=== PATIENT | female | born 1965 | race Caucasian/White ===

== ENCOUNTER 2021-10-17 01:28 | Day surgery (SDC) | payer MEDICAID, SELFPAY ==
[2021-10-11 13:18] VITALS: BMI 35.6
--- NOTE | 2021-10-11 13:32 | PC.NURSE ---
Report to the Outpatient Waiting Room, entrance under the green pavilion located off [facility], at time 9am on date 10/17 OR Time: 10am - You and your visitor will be asked to self-screen and do not enter if you have any COVID symptoms. - Only one visitor and NO children visitors are allowed at this time. - The patient visitor is requested to leave or wait in car when not with patient due to restrictions. - A mask is required within the hospital. Patient may have light breakfast since it is scheduled as a local anesthesia and take medications as normal, you may also drive home since it is a local. Please no make-up, nail belarusian, hairspray, perfume, deodorant, or body powder the day of surgery. No jewelry (including any body piercings) or valuables the day of surgery, leave them at home. Please take a shower or bath the night before, or the morning of, surgery with an antibacterial soap. Wear comfortable, loose fitting clothing. Children are encouraged to wear pajamas. - Jewelry must be removed prior to entering the operating room. Rings and piercings that are not removed may be cut off. - The hospital will not accept responsibility for valuables. - Please leave all valuables, including medications, at home the day of surgery. Follow any additional instructions given to you from your surgeon. If you or anyone in your household have experienced Covid symptoms in the past week, please notify your surgeon or the nurse liaison at the phone number below for possible testing. Telephone instructions given to patient Sandy and asked if any additional questions and then verbalized understanding. Patient advised to call surgeon office or pre surgery nurse liaison [phone] if any additional questions.
--- NOTE | 2021-10-17 07:10 | WPDHPUPDATE1 ---
History and Physical Update Update Date/Time: 10/17/21 07:10 History and Physical has been reviewed, including an updated exam of the patient. There are NO changes in the patient's condition. Risks, benefits, and alternatives have been discussed and questions answered. Patient agrees to proceed with procedure.
[2021-10-17 07:25] VITALS: BP 146/70; PULSE 72; RESP 18; O2SAT 97
[2021-10-17 07:35] VITALS: BP 139/65; PULSE 70; RESP 18; O2SAT 97
[2021-10-17 07:45] VITALS: BP 139/70; PULSE 69; RESP 18; O2SAT 97
[2021-10-17] MEDS: LIDO 1%/EPINEPHRINE 1:100,000 50 ML VIAL INFILTRATE (07:49)
[2021-10-17 07:54] VITALS: BP 123/72; PULSE 80; RESP 20; TEMP 36.5; O2SAT 99
[2021-10-17 07:55] VITALS: BP 158/68; PULSE 69; RESP 22; O2SAT 98
--- NOTE | 2021-10-17 08:22 | W.PM.PROC2 ---
Procedure Note - Detailed Date of Procedure 10/17/21 Pre-op Diagnosis right carpal tunnel syndr, rt index trigger finger Post-op Diagnosis Same Procedure Performed Right open carpal tunnel release and injection of Kenalog 10 mg to the right index A1 christina Surgeon Carlo Palomares MD Anesthesia Local Description of Procedure The carpal tunnel and the 2nd A1 christina sites were marked on the patient in the holding area. She was then taken to the operating room where she was placed supine on the operating table. A time-out was held and confirmed. The extremity was prepped and draped in usual fashion. The skin over the carpal tunnel was infiltrated with 1% lidocaine with epinephrine. About 5 minutes of dwell time were allowed. The tourniquet was not utilized. The incision was made as marked and dissection was carried through the subcutaneous tissue to the palmar aponeurosis. This and the transverse retinaculum were incised with a 15. Blade. Under 3 point retraction the ligament was divided distally and proximally to completely release it. There was no unusual anatomy noted. This wound was closed with interrupted 5 0 nylon suture. 1 milliliter of Kenalog 10 milligrams/milliliter mixed with 3107 milliliter of 1% lidocaine plain was injected at the A1 christina of the index. The usual bandage was applied for the carpal tunnel release and the patient was discharged instructions in wound care and follow-up she has a prescription for hydrocodone 5 6. Estimated Blood Loss 1 Tourniquet Time 0 Drains No Packing No Pathology None sent Complications No immediate complications Condition Stable Disposition Same day
== END 2021-10-17 08:20 | disposition home or self-care (01) ==
PROVIDERS: PCP Nurse Practitioner; Visit Provider Plastic Surgery
PROC: (CPT 64721; principal; 2021-10-17 07:30)
DX: G56.01 Carpal tunnel syndrome, right upper limb (principal); M65.321 Trigger finger, right index finger
CPT/HCPCS: 64721; J3301

== ENCOUNTER 2021-11-06 10:25 | Outpatient (CLI) | payer OTHER, SELFPAY ==
[2021-11-06 11:07] LABS: Anion Gap 12 mmol/L (8-16); Blood Urea Nitrogen 10 mg/dL (7-17); Calcium 9.3 mg/dL (8.4-10.2); Carbon Dioxide 28 mmol/L (22-30); Chloride 101 mmol/L (98-107); Estimated Glomerular Filt Rate > 60; Glucose 166 mg/dL (65-110); Potassium 4.4 mmol/L (3.4-5.0); Sodium 141 mmol/L (137-145)
== END 2021-11-06 10:26 | disposition home or self-care (01) ==
PROVIDERS: Anesthesiology; PCP Nurse Practitioner; Visit Provider Plastic Surgery
DX: E11.9 Type 2 diabetes mellitus without complications (principal); Z01.818 Encounter for other preprocedural examination
CPT/HCPCS: 36415; 80048

== ENCOUNTER 2021-11-08 01:10 | Day surgery (SDC) | payer OTHER, SELFPAY ==
[2021-11-05 10:06] VITALS: BMI 35.2
--- NOTE | 2021-11-05 10:16 | PC.NURSE ---
Report to the Outpatient Waiting Room, entrance under the green pavilion located off [facility], at time 0600 on date 11/08/21. OR Time: 0730. Time changes happen often and if your time is changed the preop area will call you the afternoon before. - You and your visitor will be asked to self-screen and do not enter if you have any COVID symptoms. - Only one visitor and NO children visitors are allowed at this time. - The patient visitor is requested to leave or wait in car when not with patient due to restrictions. - A mask is required within the hospital. Patients may have clear liquids (water, carbonated beverages, clear teas, apple juice) until 3 hours prior to surgery with a maximum of 20 ounces. - No food from midnight until time of surgery Take the following medications with a SIP of water the morning of surgery: CITALOPRAM, PROPRANOLOL Medications to discontinue per physician: VITAMINS Date to take last dose: 11/04/21 Please no make-up, nail malay, hairspray, perfume, deodorant, or body powder the day of surgery. No jewelry (including any body piercings) or valuables the day of surgery, leave them at home. Please take a shower or bath the night before, or the morning of, surgery with an antibacterial soap. Wear comfortable, loose fitting clothing. - Jewelry must be removed prior to entering the operating room. Rings and piercings that are not removed may be cut off. - The hospital will not accept responsibility for valuables. - Please leave all valuables, including medications, at home the day of surgery. If you are going home after surgery, a licensed front loader residential driver must drive you home. - NO public transportation without another adult. - We recommend that an adult stay with you for 24 hours following discharge. - We also recommend that you do not drive, make important decision, drink alcoholic beverages, or take any drugs that were not prescribed by your health care provider for at least 24 hours after your discharge time. Follow any additional instructions given to you from your surgeon. If you or anyone in your household have experienced Covid symptoms in the past week, please notify your surgeon or the nurse liaison at the phone number below for possible testing. Telephone instructions given to PT - SANDHYA ALFARO and asked if any additional questions and then verbalized understanding. Patient advised to call surgeon office or pre surgery nurse liaison [phone] if any additional questions.
--- NOTE | 2021-11-07 12:52 | WPDANESEPPF ---
Anes - Initial Pre Proc Eval Procedure: Operation Date: 11/08/21 07:30 Proposed Procedures p Right Ulnar Neuroplasty at the Elbow - Carlo Palomares MD Date/Time: 11/07/21 12:52 Surgeon: Carlo Palomares MD Pre Op Diagnosis: Right Cubital Tunnel Syndrome Patient Data Age: 56 Gender: F Height: 1.65 m Weight: 96.16 kg Allergies Allergy/AdvReac Type Severity Reaction Status Date / Time NSAIDS (Non-Steroidal AdvReac Severe AFFECTS Verified 11/08/21 06:01 Anti-Inflamma KIDNEYS codeine AdvReac Mild Vomiting Verified 11/08/21 06:01 Home Medications Medication Instructions Recorded Confirmed Type aspirin 81 mg tablet,delayed 80 mg PO DAILY 10/11/21 11/08/21 History release atorvastatin 80 mg tablet 80 mg PO HS 10/11/21 11/05/21 History citalopram 20 mg tablet 20 mg PO DAILY 10/11/21 11/05/21 History clopidogrel 75 mg tablet 75 mg PO DAILY 10/11/21 11/05/21 History dulaglutide 3 mg/0.5 mL 3 mg subcut WEEKLY 10/11/21 11/08/21 History subcutaneous pen injector (Trulicity) estradiol 0.5 mg tablet 0.5 mg PO DAILY 10/11/21 11/05/21 History ezetimibe 10 mg tablet 10 mg PO DAILY 10/11/21 11/05/21 History famotidine 20 mg tablet 20 mg PO BID 10/11/21 11/05/21 History fexofenadine 180 mg tablet 180 mg PO DAILY 10/11/21 11/05/21 History (Ariadna Allergy) losartan 100 mg tablet 100 mg PO DAILY 10/11/21 11/08/21 History metformin 1,000 mg tablet 1,000 mg PO BID 10/11/21 11/08/21 History multivitamin with minerals 100 tablet PO DAILY 10/11/21 11/08/21 History propranolol 20 mg tablet 20 mg PO Q12H 10/11/21 11/08/21 History zolpidem 10 mg tablet 10 mg PO HS PRN Sleep 10/11/21 11/08/21 History insulin aspart U-100 100 unit/mL See Rx Instructions .Route .COMPLEX 11/05/21 11/05/21 History subcutaneous solution (Novolog U-100 Insulin aspart) Patient hx anesthesia problems: none Family hx anesthesia problems: none Results Review: All pre-operative results and documents have been reviewed as part of the pre-operative evaluation. [facility] Past Medical History Medical History (Updated 11/07/21 @ 12:53 by Mc Dennison DO) Diabetes type 2, controlled GERD (gastroesophageal reflux disease) Hyperlipidemia Hypertension Insulin pump in place PVD (peripheral vascular disease) Surgical History Surgical History (Updated 11/07/21 @ 12:53 by Mc Dennison DO) History of tubal ligation Social History Social History Smoking packs per day: 1 Smoking cigarettes per day: 20.0 Years smoked: 35 Smoking pack-years: 35.00 Smoking status: Current some day smoker Tobacco type: cigarettes and e-cigarettes/vaping Second hand tobacco smoke exposure: Yes Smoking end date: 07/27/22 Additional smoking assessment comments: QUIT CIGARETTES 07/27/21, NOW VAPING Alcohol intake: never Substance use: never Substance use type: does not use Living arrangements: with family Spiritual care concerns: No Anes - Eval Final PreProcedure Day of Procedure 11/07/21 12:52 Patient weight: obese Heart: regular rate and rhythm Lungs: clear to auscultation Airway: Mallampati scale class II Neurological: alert and oriented Last oral intake: >/= 8 hours ASA classification: III Emergent: no Anesthetic plan: proceed Anesthesia type and monitoring: general GIVS and standard monitoring Results Review: All pre-operative results and documents have been reviewed as part of the pre-operative evaluation. Informed Consent: The patient's anesthetic plan and its attendant risks and benefits were discussed with the patient/family/POA. Questions were solicited and answers provided to the satisfaction of the patient/family/POA.
[2021-11-08 06:13] VITALS: BP 129/75; PULSE 84; RESP 16; TEMP 36.6; O2SAT 98
[2021-11-08] MEDS: LACTATED RINGERS 1,000 ML 30 ML IV CONT ×2 (06:32→08:17)
[2021-11-08 06:46] LABS: Glucose Point of Care 80 mg/dl (65-105)
--- NOTE | 2021-11-08 07:09 | WPDHPUPDATE1 ---
History and Physical Update Update Date/Time: 11/08/21 07:09 History and Physical has been reviewed, including an updated exam of the patient. There are NO changes in the patient's condition. Risks, benefits, and alternatives have been discussed and questions answered. Patient agrees to proceed with procedure.
[2021-11-08] MEDS: LIDO 1%/EPINEPHRINE 1:100,000 10 ML VIAL 20 ML INFILTRATE (07:53)
[2021-11-08 08:17] VITALS: BP 161/67; PULSE 72; RESP 12; O2SAT 98
--- NOTE | 2021-11-08 08:24 | W.PM.PROC2 ---
Procedure Note - Detailed Date of Procedure 11/08/21 Pre-op Diagnosis Right Cubital Tunnel Syndrome Post-op Diagnosis Same Procedure Performed Right ulnar neuroplasty at the elbow Surgeon Carlo Palomares MD Store Team Leader [facility] Anesthesia MAC Description of Procedure The right cubital tunnel area was marked on the patient in the holding area. She was taken to the operating room where she was placed supine on the operating table. She was given IV sedation. The right upper extremity was prepped and draped in usual fashion. A time-out was held and confirmed. The surgical site was marked once again for incision and the area infiltrated with 1% lidocaine with epinephrine. The tourniquet was inflated to 250 mmHg. The elbow was flexed and supported on folded towels. The incision was made as marked and dissection was carried bluntly through the subcutaneous tissue. Several small bridging veins were cauterized. A modest anconeus epitrochlearis muscle was identified between the medial epicondyle and the olecranon resulting and thickening of this area including some thickened fascia. The nerve was identified proximally and exposed throughout the length of the wound from proximal to distal. The only point of visible compression was under the area of the anconeus epitrochlearis and Beebe's ligament. After releasing the nerve there was no subluxation. The tourniquet was released and a few bleeding points cauterized on a setting of 20. The wound was then closed with intradermal 3-0 Vicryl of multiple sites and the skin was closed with glue. The usual bandage was applied. She is discharged with instructions in wound care and follow-up and a prescription for hydrocodone 5/325 6. Estimated Blood Loss 1 Tourniquet Time 12 Drains No Packing No Pathology None sent Complications No immediate complications Condition Stable Disposition Same day
[2021-11-08 08:34] LABS: Glucose Point of Care 91 mg/dl (65-105)
[2021-11-08 08:45] VITALS: BP 146/56; PULSE 69; RESP 12; O2SAT 100
[2021-11-08 09:15] VITALS: BP 158/70; PULSE 74; RESP 14
== END 2021-11-08 09:26 | disposition home or self-care (01) ==
PROVIDERS: PCP Nurse Practitioner; Visit Provider Plastic Surgery
PROC: (CPT 64718; principal; 2021-11-08 07:30)
DX: G56.21 Lesion of ulnar nerve, right upper limb (principal); K21.9 Gastro-esophageal reflux disease without esophagitis; E78.5 Hyperlipidemia, unspecified; I10 Essential (primary) hypertension; E10.51 Type 1 diabetes mellitus with diabetic peripheral angiopathy without gangrene; Z96.41 Presence of insulin pump (external) (internal); Z79.02 Long term (current) use of antithrombotics/antiplatelets; Z79.82 Long term (current) use of aspirin; Z79.899 Other long term (current) drug therapy; Z79.84 Long term (current) use of oral hypoglycemic drugs; Z79.4 Long term (current) use of insulin; F17.290 Nicotine dependence, other tobacco product, uncomplicated; E66.9 Obesity, unspecified; Z68.35 Body mass index [BMI] 35.0-35.9, adult
CPT/HCPCS: 64718; 82948; A9270; J2250; J2704; J3010; J7120

== ENCOUNTER 2022-06-05 12:03 | Outpatient (CLI) | payer OTHER, SELFPAY ==
[2022-06-05 12:35] LABS: Anion Gap 10 mmol/L (8-16); Blood Urea Nitrogen 22 mg/dL (7-17); Calcium 9.5 mg/dL (8.4-10.2); Carbon Dioxide 27 mmol/L (22-30); Chloride 100 mmol/L (98-107); Estimated Glomerular Filt Rate 58; Glucose 125 mg/dL (65-110); Sodium 137 mmol/L (137-145)
== END 2022-06-05 12:04 | disposition home or self-care (01) ==
LOC: ANHSURGERY 12:07
PROVIDERS: Anesthesiology; PCP Nurse Practitioner; Visit Provider Plastic Surgery
DX: Z01.818 Encounter for other preprocedural examination (principal); E11.9 Type 2 diabetes mellitus without complications
CPT/HCPCS: 36415; 80048

== ENCOUNTER 2022-06-06 00:35 | Day surgery (SDC) | payer OTHER, SELFPAY ==
[2022-06-03 09:22] VITALS: BMI 36.1
--- NOTE | 2022-06-03 09:25 | SUR.PREOP ---
Report to the Outpatient Waiting Room, entrance under the green pavilion located off [facility], at time _0600 on date _06/06/22 . Planned Procedure Time: _0730 . Time changes happen often and if your time is changed the preop area will call you the afternoon before. - You and your visitor will be asked to self-screen and do not enter if you have any COVID symptoms. - A mask is optional within the hospital at this time. Patients may have clear liquids (water, carbonated beverages, clear teas, apple juice) until 3 hours prior to surgery with a maximum of 20 ounces. - No food from midnight until time of surgery - Infants may have breast milk until 4 hours before surgery, infant formula 6 hours prior to surgery. - Children will be allowed to drink immediately following surgery. If applicable, please bring a bottle or sippy cup to assist with drinking. Juice, water, soda, and popsicles are readily available. For infants on formula, please bring formula the day of surgery. Pacifiers are allowed. Take the following medications with a SIP of water the morning of surgery: _PROPANOLOL, CITALOPRAM DO NOT STOP ANY OF YOUR OTHER PRESCRIPTION MEDICATIONS PRIOR TO SURGERY ?EXCEPT THE FOLLOWING Medications to discontinue per physician ___VITAMIN Date to take last dose_06/03/22 Please no make-up, nail wallisian, hairspray, perfume, deodorant, or body powder the day of surgery. No jewelry (including any body piercings) or valuables the day of surgery, leave them at home. Please take a shower or bath the night before, or the morning of, surgery with an antibacterial soap. Wear comfortable, loose fitting clothing. Children are encouraged to wear pajamas. - Jewelry must be removed prior to entering the operating room. Rings and piercings that are not removed may be cut off. - The hospital will not accept responsibility for valuables. - Please leave all valuables, including medications, at home the day of surgery. If you are going home after surgery, a licensed warehouse delivery driver must drive you home. - NO public transportation without another adult if you receive anesthesia. - We recommend that an adult stay with you for 24 hours following discharge. - We also recommend that you do not drive, make important decision, drink alcoholic beverages, or take any drugs that were not prescribed by your health care provider for at least 24 hours after your discharge time. For Pediatric surgeries, we recommend two adults accompany the child home. Follow any additional instructions given to you from your surgeon. If you or anyone in your household have experienced Covid symptoms in the past week, please notify your surgeon or the nurse liaison at the phone number below for possible testing. Telephone instructions given to __DANIELMyron LAMB and asked if any additional questions and then verbalized understanding. Patient advised to call surgeon office or pre surgery nurse liaison [phone] if any additional questions.
[2022-06-06 06:05] VITALS: BP 118/71; PULSE 75; RESP 16; TEMP 36.6; O2SAT 99
--- NOTE | 2022-06-06 06:58 | WPDANESEPPF ---
Anes - Initial Pre Proc Eval Procedure: Operation Date: 06/06/22 07:30 Proposed Procedures p Excision Left Volar Wrist Ganglion Cyst - Carlo Palomares MD Date/Time: 06/06/22 06:58 Surgeon: Carlo Palomares MD Pre Op Diagnosis: left volar wrist ganglion cyst Patient Data Age: 56 Gender: F Height: 1.65 m Weight: 99.4 kg Allergies Allergy/AdvReac Type Severity Reaction Status Date / Time NSAIDS (Non-Steroidal AdvReac Severe AFFECTS Verified 06/06/22 06:00 Anti-Inflamma KIDNEYS codeine AdvReac Mild Vomiting Verified 06/06/22 06:00 Home Medications Medication Instructions Recorded Confirmed Type aspirin 81 mg tablet,delayed 80 mg PO DAILY 10/11/21 06/03/22 History release atorvastatin 80 mg tablet 80 mg PO HS 10/11/21 06/03/22 History citalopram 20 mg tablet 20 mg PO DAILY 10/11/21 06/03/22 History clopidogrel 75 mg tablet 75 mg PO DAILY 10/11/21 06/03/22 History dulaglutide 3 mg/0.5 mL 4.5 mg subcut WEEKLY 10/11/21 06/03/22 History subcutaneous pen injector (Trulicity) estradiol 0.5 mg tablet 0.5 mg PO DAILY 10/11/21 06/03/22 History ezetimibe 10 mg tablet 10 mg PO DAILY 10/11/21 06/03/22 History famotidine 20 mg tablet 20 mg PO BID 10/11/21 06/03/22 History fexofenadine 180 mg tablet 180 mg PO DAILY 10/11/21 06/03/22 History (Ariadna Allergy) losartan 100 mg tablet 100 mg PO DAILY 10/11/21 06/03/22 History metformin 1,000 mg tablet 1,000 mg PO BID 10/11/21 06/03/22 History multivitamin with minerals 100 tablet PO DAILY 10/11/21 06/03/22 History propranolol 20 mg tablet 20 mg PO Q12H 10/11/21 06/03/22 History zolpidem 10 mg tablet 10 mg PO HS PRN Sleep 10/11/21 06/03/22 History insulin aspart U-100 100 unit/mL See Rx Instructions .Route .COMPLEX 11/05/21 06/03/22 History subcutaneous solution (Novolog U-100 Insulin aspart) Patient hx anesthesia problems: none Family hx anesthesia problems: none Results Review: All pre-operative results and documents have been reviewed as part of the pre-operative evaluation. [facility] Past Medical History Medical History (Updated 11/07/21 @ 12:53 by Mc Dennison DO) Diabetes type 2, controlled GERD (gastroesophageal reflux disease) Hyperlipidemia Hypertension Insulin pump in place PVD (peripheral vascular disease) Surgical History Surgical History (Updated 11/07/21 @ 12:53 by Mc Dennison DO) History of tubal ligation Social History Social History Smoking packs per day: 1 Smoking cigarettes per day: 20.0 Years smoked: 35 Smoking pack-years: 35.00 Smoking status: Former smoker Tobacco type: e-cigarettes/vaping Second hand tobacco smoke exposure: Yes Smoking end date: 07/27/21 Additional smoking assessment comments: 1 ppd cigarettes 40 years Alcohol intake: never Substance use: never Substance use type: does not use Living arrangements: with family Spiritual care concerns: No Anes - Eval Final PreProcedure Day of Procedure 06/06/22 06:58 Patient weight: obese Heart: regular rate and rhythm Lungs: clear to auscultation Airway: Mallampati scale class II Neurological: alert and oriented Last oral intake: >/= 8 hours ASA classification: III Emergent: no Anesthetic plan: proceed Anesthesia type and monitoring: general GIVS and standard monitoring Results Review: All pre-operative results and documents have been reviewed as part of the pre-operative evaluation. Informed Consent: The patient's anesthetic plan and its attendant risks and benefits were discussed with the patient/family/POA. Questions were solicited and answers provided to the satisfaction of the patient/family/POA.
[2022-06-06 07:02] LABS: Glucose Point of Care 141 mg/dl (65-105)
[2022-06-06] MEDS: LACTATED RINGERS 1,000 ML 30 ML IV CONT (07:08)
--- NOTE | 2022-06-06 07:21 | WPDHPUPDATE1 ---
History and Physical Update Update Date/Time: 06/06/22 07:21 History and Physical has been reviewed, including an updated exam of the patient. There are NO changes in the patient's condition. Risks, benefits, and alternatives have been discussed and questions answered. Patient agrees to proceed with procedure.
[2022-06-06] MEDS: BACITRACIN OINTMENT 15 GM TUBE 1 APPLIC TOPICAL (07:51)
[2022-06-06] MEDS: LIDO 1%/EPINEPHRINE 1:100,000 50 ML VIAL 10 ML INFILTRATE (07:51)
[2022-06-06 08:00] VITALS: BP 89/57; PULSE 74; RESP 22; O2SAT 98
--- NOTE | 2022-06-06 08:03 | P.OP_ITS ---
Procedure Note - Detailed Date of Procedure 06/06/22 Pre-op Diagnosis left volar wrist ganglion cyst Post-op Diagnosis Same Procedure Performed Excision of left volar wrist ganglion cyst Surgeon Carlo Palomares MD Anesthesia MAC Description of Procedure The palpable ganglion cyst was marked on the patient's wrist in the holding area with her consent. She was then taken to the operating room where she was placed supine on the operating table. A time-out was held confirmed. She was given IV sedation. The left upper extremity was prepped and draped in usual fashion. The site was marked for the incision. This was infiltrated with 1% lidocaine with epinephrine. The extremity was exsanguinated and the tourniquet inflated to 250 mmHg. The incision was made as usual over the mass. Blunt and sharp dissection the find the cyst and that was avulsed from its origin at the radiocarpal joint. Several small veins had been cauterized the radial artery was not seen. The tourniquet was released. Pressure was held on the site for about 4 minutes and bleeding subsided. The wound was then closed with int errupted intradermal 4-0 Monocryl sutures. The usual bandage was applied. The patient was discharged from the operating room in stable condition Drains No Packing No Pathology None sent Condition Stable Disposition Same day
[2022-06-06 08:06] LABS: Glucose Point of Care 140 mg/dl (65-105)
[2022-06-06 08:25] VITALS: BP 109/62; PULSE 70; RESP 20; O2SAT 97
[2022-06-06 08:50] VITALS: BP 103/68; PULSE 71; RESP 20
== END 2022-06-06 08:59 | disposition home or self-care (01) ==
PROVIDERS: PCP Nurse Practitioner; Visit Provider Plastic Surgery
PROC: (CPT 25111; principal; 2022-06-06 07:30)
DX: M67.432 Ganglion, left wrist (principal); I10 Essential (primary) hypertension; E78.5 Hyperlipidemia, unspecified; K21.9 Gastro-esophageal reflux disease without esophagitis; E11.51 Type 2 diabetes mellitus with diabetic peripheral angiopathy without gangrene; Z96.41 Presence of insulin pump (external) (internal); Z79.02 Long term (current) use of antithrombotics/antiplatelets; Z79.82 Long term (current) use of aspirin; Z79.899 Other long term (current) drug therapy; Z79.84 Long term (current) use of oral hypoglycemic drugs; Z79.4 Long term (current) use of insulin; Z87.891 Personal history of nicotine dependence; E66.9 Obesity, unspecified; Z68.36 Body mass index [BMI] 36.0-36.9, adult
CPT/HCPCS: 25111; 82948; A9270; J2250; J2704; J3010; J7120

== ENCOUNTER 2023-03-30 10:57 | Emergency (ER) | payer OTHER, SELFPAY ==
--- NOTE | ~2023-03-30 | XR_ITS ---
EXAMINATION:XR_[id number]_CR DATE: 03/30/2023 11:46 INDICATION: Neck pain TECHNIQUE: AP, lateral, lateral swimmers and odontoid views of the cervical spine are provided. COMPARISON: None FINDINGS: There are 2 mm of anterolisthesis of C4 on C5. The odontoid process is intact. No fracture is identified. The vertebral body heights are maintained. There is moderate loss of intervertebral di sc space height at C5-6 and C6-7. There is multilevel moderate facet and uncovertebral joint osteoart hritis. Prevertebral soft tissues are normal. IMPRESSION: 1. Mild to moderate cervical spondylosis without acute findings. Reviewed, dictated and finalized at location A. AL ASSISTING INSTRUCTOR
--- NOTE | ~2023-03-30 | XR_ITS ---
EXAMINATION: XR thoracic spine 3V DATE: 03/30/2023 11:45 INDICATION: Upper back pain TECHNIQUE: AP and lateral views of thoracic spine are obtained. COMPARISON: None. FINDINGS: Bone alignment is normal. There is no fracture. There is mild loss of intervertebral disc s pace height at multiple levels in the thoracic spine. The vertebral body heights are maintained. IMPRESSION: 1. Mild thoracic spondylosis without acute findings. Reviewed, dictated and finalized at location A. BRIDGE OPERATOR
[2023-03-30 11:06] VITALS: BP 107/78; PULSE 75; RESP 20; TEMP 36.4; O2SAT 99
--- NOTE | 2023-03-30 11:24 | ED.EXTPRO ---
HPI - Extremity Problem General Chief complaint: Extremity Problem,Nontraumatic Stated complaint: shoulder pain Time Seen by Provider: 03/30/23 10:59 Source: patient Mode of arrival: ambulatory Limitations: no limitations History of Present Illness HPI Narrative: Sandy is a 57-year-old female patient presenting to the ER today with complaints of severe right shoulder pain. She reports pain is radiating up into her neck and down into her arm. States she went to [facility] and had images completed of her shoulder and they were negative for any sign of fracture or malalignment. States pain is in her neck, clavicle, shoulder, and radiating down her arm. She is unable to take any anti-inflammatories as she has kidney disease. [facility] placed her on Robaxin and prednisone. She reports that this is not helping her symptoms. Related Data Home Medications Medication Instructions Recorded Confirmed aspirin 81 mg tablet,delayed 80 mg PO DAILY 10/11/21 06/03/22 release atorvastatin 80 mg tablet 80 mg PO HS 10/11/21 06/03/22 citalopram 20 mg tablet 20 mg PO DAILY 10/11/21 06/03/22 clopidogrel 75 mg tablet 75 mg PO DAILY 10/11/21 06/03/22 dulaglutide 3 mg/0.5 mL 4.5 mg subcut WEEKLY 10/11/21 06/03/22 subcutaneous pen injector (Trulicity) estradiol 0.5 mg tablet 0.5 mg PO DAILY 10/11/21 06/03/22 ezetimibe 10 mg tablet 10 mg PO DAILY 10/11/21 06/03/22 famotidine 20 mg tablet 20 mg PO BID 10/11/21 06/03/22 fexofenadine 180 mg tablet 180 mg PO DAILY 10/11/21 06/03/22 (Ariadna Allergy) losartan 100 mg tablet 100 mg PO DAILY 10/11/21 06/03/22 metformin 1,000 mg tablet 1,000 mg PO BID 10/11/21 06/03/22 multivitamin with minerals 100 tablet PO DAILY 10/11/21 06/03/22 propranolol 20 mg tablet 20 mg PO Q12H 10/11/21 06/03/22 zolpidem 10 mg tablet 10 mg PO HS PRN Sleep 10/11/21 06/03/22 insulin aspart U-100 100 unit/mL See Rx Instructions .Route .COMPLEX 11/05/21 06/03/22 subcutaneous solution (Novolog U-100 Insulin aspart) Allergies Allergy/AdvReac Type Severity Reaction Status Date / Time NSAIDS (Non-Steroidal AdvReac Severe AFFECTS Verified 03/30/23 11:12 Anti-Inflamma KIDNEYS codeine AdvReac Mild Vomiting Verified 03/30/23 11:12 Review of Systems Review of Systems: Pertinent positives per HPI. Patient denies any fever, chills, rash, headache, visual changes, dizziness, cough, shortness of breath, chest pain, palpitations, nausea, vomiting, diarrhea, constipation, abdominal pain, or any urinary issues. [facility] Past Medical History Medical History (Updated 03/30/23 @ 12:57 by Alvaro Valentine APRN) Diabetes type 2, controlled GERD (gastroesophageal reflux disease) Hyperlipidemia Hypertension Insulin pump in place PVD (peripheral vascular disease) Surgical History Surgical History History of tubal ligation Social History Social History Smoking packs per day: 1 Smoking cigarettes per day: 20.0 Years smoked: 35 Smoking pack-years: 35.00 Smoking status: Former smoker Tobacco type: e-cigarettes/vaping Second hand tobacco smoke exposure: Yes Smoking end date: 07/27/21 Additional smoking assessment comments: 1 ppd cigarettes 40 years Alcohol intake: never Substance use: never Substance use type: does not use Living arrangements: with family Spiritual care concerns: No Comments At the time of my signature, I reviewed and agree with the nursing past medical, surgical, social, and family history. There is no relevant family history pertinent to the patient complaint. Exam Narrative: General: Well-developed, well nourished, in no apparent distress Head: Normocephalic, atraumatic. Cardio: Regular rate and rhythm, s1 and s2 normal, no murmur appreciated. Resp: Clear to auscultation bilaterally, no rhonchi, rales, wheezing or rubs. Musculoskeletal: No defo
[2023-03-30] MEDS: HYDROcodone/acetaminophen (*CRX) 7.5-325 MG TABLET 1 TAB PO (11:43)
== END 2023-03-30 13:12 | disposition home or self-care (01) ==
PROVIDERS: Emergency Provider Nurse Practitioner Family; PCP Nurse Practitioner
DX: M47.812 Spondylosis without myelopathy or radiculopathy, cervical region (principal); M47.814 Spondylosis without myelopathy or radiculopathy, thoracic region; M25.511 Pain in right shoulder; E11.9 Type 2 diabetes mellitus without complications; E78.5 Hyperlipidemia, unspecified; I10 Essential (primary) hypertension; Z87.891 Personal history of nicotine dependence
CPT/HCPCS: 72040; 72072; 99283; A4565; A9270

== ENCOUNTER 2024-02-25 17:59 | Emergency (ER) | payer OTHER, SELFPAY ==
--- NOTE | ~2024-02-25 | XR_ITS ---
EXAMINATION: XR chest 2V Exam Date/Time: 02/25/2024 18:22 SPEECH THERAPIST TECHNICIAN HISTORY: chest pain Comparison: None. RESULT: Lines, tubes, and devices: None. Lungs and pleura: Clear. Cardiomediastinal silhouette: Normal. Other: No acute osseous or upper abdominal finding. IMPRESSION: No acute cardiopulmonary process. Reviewed, dictated and finalized at location K. CH THERAPIST TECHNICIAN
--- NOTE | 2024-02-25 18:00 | ECG_ITS ---
Test Date: 2024-02-25 18:07:54 Measurements Intervals [place] Rate: 73 P: 4 NM: 175 QRS: 95 QRSD: 88 T: -11 QT: 375 QTc: 414 Interpretive Statements SINUS RHYTHM BORDERLINE RIGHT AXIS DEVIATION [QRS AXIS > 90] PATTERN CONSISTENT WITH PULMONARY DISEASE ABNORMAL QRS-T ANGLE [QRS-T AXIS DIFFERENCE > 60] No previous ECG available for comparison Electronically Signed On 03-01-2024 10:23:09 TRUCKLOAD OWNER OPERATOR by Raji Tan M.D.
[2024-02-25 18:03] VITALS: BP 138/86; PULSE 69; RESP 18; TEMP 36.4; O2SAT 100
--- NOTE | 2024-02-25 18:08 | ED_ITS ---
HPI - Chest Pain General Chief Complaint: Chest Pain <Gina De Santiago PA-C - Last Filed: 02/25/24 18:14> Stated Complaint: chest pain <Gina De Santiago PA-C - Last Filed: 02/25/24 18:14> Time Seen by Provider: 02/25/24 18:08 <Gina De Santiago PA-C - Last Filed: 02/25/24 18:14> Focused HPI: Patient is a 58 y/o female, with PMH of DM, HTN, HLD, PAD with stent in RLE, who presents to the ED with c/o CP. Patient reports having midsternal and left sided CP over the past 3-4 days. States pain is intermittent sharp stabbing pains, worse with movement, exertion, and taking deep breath. Denies cough, congestion, fevers, significant SOB/BHANDARI. Has tried tylenol w/o improvement. GENERAL: Well-appearing, obese with BMI of 33.0, and in no acute distress. HEAD: Normocephalic, atraumatic. CHEST: Clear to auscultation. ?No respiratory distress. No significant focal lung sounds. HEART: Regular rate and rhythm.? MSK: +TTP along midsternal anterior chest wall into R costochondral region, reproducing pain. NEURO: ?Alert and oriented x3. Patient screened in triage and initial orders placed.? ?Additional care and disposition to be based upon?diagnostic testing and treatment. <Gina De Santiago PA-C - Last Filed: 02/25/24 18:14> Source: patient <MARITA Kaufman Last Filed: 02/25/24 18:14> Mode of arrival: ambulatory <Gina De Santiago PA-C - Last Filed: 02/25/24 18:14> Limitations: no limitations <MARITA Kaufman Last Filed: 02/25/24 18:14> History of Present Illness HPI narrative: agree with HPI. Majority worsened by physical movement of the right arm and with touching the chest and back. <Charles Romero MD - Last Filed: 02/25/24 21:27> Related Data Home Medications: Home Medications ?Medication ?Instructions ?Recorded ?Confirmed ?Last Taken ?Type aspirin 81 mg tablet,delayed 80 mg PO DAILY 10/11/21 02/17/24 11/07/21 History release atorvastatin 80 mg tablet 80 mg PO HS 10/11/21 02/17/24 Unknown History citalopram 20 mg tablet 20 mg PO DAILY 10/11/21 02/17/24 Unknown History clopidogrel 75 mg tablet 75 mg PO DAILY 10/11/21 02/17/24 Unknown History dulaglutide 3 mg/0.5 mL 4.5 mg subcut WEEKLY 10/11/21 02/17/24 11/03/21 History subcutaneous pen injector (Trulicity) estradiol 0.5 mg tablet 0.5 mg PO DAILY 10/11/21 02/17/24 Unknown History ezetimibe 10 mg tablet 10 mg PO DAILY 10/11/21 02/17/24 Unknown History famotidine 20 mg tablet 20 mg PO BID 10/11/21 02/17/24 Unknown History fexofenadine 180 mg tablet 180 mg PO DAILY 10/11/21 02/17/24 Unknown History (Ariadna Allergy) losartan 100 mg tablet 100 mg PO DAILY 10/11/21 02/17/24 11/07/21 History metformin 1,000 mg tablet 1,000 mg PO BID 10/11/21 02/17/24 11/07/21 History multivitamin with minerals 100 tablet PO DAILY 10/11/21 02/17/24 11/02/21 History propranolol 20 mg tablet 20 mg PO Q12H 10/11/21 02/17/24 11/07/21 History zolpidem 10 mg tablet 10 mg PO HS PRN Sleep 10/11/21 02/17/24 11/07/21 History insulin aspart U-100 100 unit/mL See Rx Instructions .Route .COMPLEX 11/05/21 02/17/24 Unknown History subcutaneous solution (Novolog U-100 Insulin aspart) buspirone 7.5 mg tablet 7.5 mg PO BID 02/17/24 02/17/24 Unknown History empagliflozin 25 mg tablet 25 mg PO DAILY 02/17/24 02/17/24 Unknown History (Jardiance) insulin lispro 100 unit/mL subcut QPM 02/17/24 Unknown History subcutaneous solution (Humalog U-100 Insulin) <Gina De Santiago PA-C - Last Filed: 02/25/24 18:14> Allergies/Adverse Reactions: Allergies Allergy/AdvReac Type Severity Reaction Status Date / Time NSAIDS (Non-Steroidal AdvReac Severe AFFECTS Verified 02/25/24 20:27 Anti-Inflamma KIDNEYS codeine AdvReac Mild Vomiting Verified 02/25/24 20:27 <Gina De Santiago PA-C - Last Filed: 02/25/24 18:14> Review of Systems 2 Review of Systems: All systems reviewed & are unremarkable except as noted in HPI and below <Charles Romero MD - Last Filed: 02/25/24 21:27> Constitutional: Constitutional: Reports no additional constitutional complaints <Charles Romero MD - Last Filed: 02/25/24 21:27> Cardiovascular: Cardiovascular: Reports no additional cardiovascular complaints <Charles Romero MD - Last Filed: 02/25/24 21:27> Respiratory: Respiratory: Reports no additional respiratory complaints < Charles Romero MD - Last Filed: 02/25/24 21:27> Gastrointestinal: Gastrointestinal: Reports no additional gastrointestinal complaints <Charles Romero MD - Last Filed: 02/25/24 21:27> Musculoskeletal: Musculoskeletal: Reports myalgias, Denies arthralgias and Denies joint swelling <Charles Romero MD - Last Filed: 02/25/24 21:27> [facility] Past Medical History Medical History: Medical History (Updated 02/25/24 @ 21:02 by Charles Romero MD) Insulin pump in place Diabetes type 2, controlled GERD (gastroesophageal reflux disease) PVD (peripheral vascular disease) Hypertension Hyperlipidemia <Gina De Santiago PA-C - Last Filed: 02/25/24 18:14> Surgical History Surgical History: Surgical History History of tubal ligation <MARITA Kaufman Last Filed: 02/25/24 18:14> Social History Social History: Social History Smoking packs per day: 1 Smoking cigarettes per day: 20.0 Years smoked: 35 Smoking pack-years: 35.00 Smoking status: Never smoker Tobacco type: e-cigarettes/vaping Second hand tobacco smoke exposure: Yes Smoking end date: 07/27/21 Additional smoking assessment comments: 1 ppd cigarettes 40 years Alcohol intake: never Substance use: never Substance use type: does not use Living arrangements: alone Spiritual care concerns: No <Gina De Santiago PA-C - Last Filed: 02/25/24 18:14> Exam 2 Narrative: GENERAL: Well-appearing, well-nourished, and in no acute distress. HEAD: Normocephalic, atraumatic. ENT: Mucous membranes moist. CHEST: Clear to auscultation. No respiratory distress. Very tender palpation right anterior chest wall. HEART: Regular rate and rhythm. Normal peripheral pulses. Back: Tender palpation over the right trapezius musculature & rhomboid musculature. ABDOMEN: Soft, nontender, nondistended, normal active bowel sounds. EXTREMITIES: Normal range of motion. No edema. SKIN: Warm, dry, no rash. NEURO: Alert and oriented x3 <Charles Romero MD - Last Filed: 02/25/24 21:27> Course Course Emergency Course: Patient informed results. Not felt to be cardiac. I do not believe she has PE and with this is all musculoskeletal pain. Patient cannot take anti- inflammatories so she will be treated with muscle relaxers and Tylenol at home. Patient verbalized understanding. <Charles Romero MD - Last Filed: 02/25/24 21:27> Vital Signs Vital signs: Vital Signs Temperature 97.6 F 02/25/24 18:03 Pulse Rate 69 02/25/24 18:03 Respiratory Rate 18 02/25/24 18:03 Blood Pressure 138/86 02/25/24 18:03 Pulse Oximetry 100 02/25/24 18:03 Oxygen Delivery Room Air 02/25/24 18:03 Temperature 97.6 F 02/25/24 18:03 Pulse Rate 71 02/25/24 20:25 Respiratory Rate 13 02/25/24 20:25 Blood Pressure 119/64 02/25/24 20:25 Pulse Oximetry 99 02/25/24 20:25 Oxygen Delivery Room Air 02/25/24 20:23 <Gina De Santiago PA-C - Last Filed: 02/25/24 18:14> Vital Signs Temperature 97.6 F 02/25/24 18:03 Pulse Rate 69 02/25/24 18:03 Respiratory Rate 18 02/25/24 18:03 Blood Pressure 138/86 02/25/24 18:03 Pulse Oximetry 100 02/25/24 18:03 Oxygen Delivery Room Air 02/25/24 18:03 Temperature 97.6 F 02/25/24 18:03 Pulse Rate 71 02/25/24 20:25 Respiratory Rate 13 02/25/24 20:25 Blood Pressure 119/64 02/25/24 20:25 Pulse Oximetry 99 02/25/24 20:25 Oxygen Delivery Room Air 02/25/24 20:23 <Charles Romero MD - Last Filed: 02/25/24 21:27> MDM - Chest Pain MDM Narrative Medical decision making narrative: MSE by BEATRIZ in triage. <Gina De Santiago PA-C - Last Filed: 02/25/24 18:14> Lab Data Result diagrams: 02/25/24 18:17 02/25/24 18:17 <MARITA Kaufman Last Filed: 02/25/24 18:14> Labs: Lab Results 02/25/24 Range/Units 18:17 WBC 8.1 (4.5-10.0) K/mm3 RBC 4.78 (4.2-5.4) M/mm3 Hgb 12.7 (12.0-15.0) g/dL Hct 39.7 (37.0-47.0) % MCV 83.1 (80-100) fl MCH 26.6 (26-34) pg MCHC 32.0 (32-36) g/dl RDW 15.4 H (11.5-14.5) % Plt Count 295 (150-375) k/mm3 MPV 9.8 (7.4-10.4) fl Immature Gran % (Auto) 0.1 (0-0.5) % Neut % (Auto) 45.8 (45.5-73.1) % Lymph % (Auto) 45.3 H (18.3-44.2) % [place] % (Auto) 6.4 (2.6-8.5) % Eos % (Auto) 1.5 (0-4.4) % Baso % (Auto) 0.9 (0.2-1.2) % Lymph # (Auto) 3.67 H (0.9-3.2) K/mm3 [place] # (Auto) 0.5 (0.1-0.6) K/mm3 Eos # (Auto) 0.1 (0-0.3) K/mm3 Baso # (Auto) 0.1 (0.0-0.1) K/mm3 Abs Immat Gran (auto) 0.01 (0.00-0.031) K/mm3 Absolute Neuts (auto) 3.7 (1.3-6.7) K/mm3 Absolute Nucleated RBC 0.000 (0.0-0.012) K/mm3 Nucleated RBC % 0.0 (0.0-0.2) % PT 13.2 (11.1-14.7) Seconds INR 1.0 APTT 25.6 (22.3-36.8) Seconds Sodium 137 (137-145) mmol/L Potassium 4.2 (3.4-5.0) mmol/L Chloride 106 (98-107) mmol/L Carbon Dioxide 27 (22-30) mmol/L Anion Gap 4 (4-12) mmol/L BUN 24 H (7-17) mg/dL Creatinine 1.00 (0.7-1.0) mg/dL Estim Creat Clear Calc 62 ml/min Estimated GFR 57 L (59 - ) Glucose 116 H (65-110) mg/dL Calcium 9.3 (8.4-10.2) mg/dL Total Bilirubin 0.4 (0.2-1.3) mg/dL AST 29 (14-36) U/L ALT 28 (6-35) U/L Alkaline Phosphatase 84 (38-126) U/L Troponin I < 0.012 (0.000-0.034) ng/mL Total Protein 7.0 (6.3-8.2) g/dL Albumin 4.4 (3.5-5.1) g/dL Lipase 467 H (23-300) U/L <Gina De Santiago PA-C - Last Filed: 02/25/24 18:14> Lab Results 02/25/24 Range/Units 18:17 WBC 8.1 (4.5-10.0) K/mm3 RBC 4.78 (4.2-5.4) M/mm3 Hgb 12.7 (12.0-15.0) g/dL Hct 39.7 (37.0-47.0) % MCV 83.1 (80-100) fl MCH 26.6 (26-34) pg MCHC 32.0 (32-36) g/dl RDW 15.4 H (11.5-14.5) % Plt Count 295 (150-375) k/mm3 MPV 9.8 (7.4-10.4) fl Immature Gran % (Auto) 0.1 (0-0.5) % Neut % (Auto) 45.8 (45.5-73.1) % Lymph % (Auto) 45.3 H (18.3-44.2) % [place] % (Auto) 6.4 (2.6-8.5) % Eos % (Auto) 1.5 (0-4.4) % Baso % (Auto) 0.9 (0.2-1.2) % Lymph # (Auto) 3.67 H (0.9-3.2) K/mm3 [place] # (Auto) 0.5 (0.1-0.6) K/mm3 Eos # (Auto) 0.1 (0-0.3) K/mm3 Baso # (Auto) 0.1 (0.0-0.1) K/mm3 Abs Immat Gran (auto) 0.01 (0.00-0.031) K/mm3 Absolute Neuts (auto) 3.7 (1.3-6.7) K/mm3 Absolute Nucleated RBC 0.000 (0.0-0.012) K/mm3 Nucleated RBC % 0.0 (0.0-0.2) % PT 13.2 (11.1-14.7) Seconds INR 1.0 APTT 25.6 (22.3-36.8) Seconds Sodium 137 (137-145) mmol/L Potassium 4.2 (3.4-5.0) mmol/L Chloride 106 (98-107) mmol/L Carbon Dioxide 27 (22-30) mmol/L Anion Gap 4 (4-12) mmol/L BUN 24 H (7-17) mg/dL Creatinine 1.00 (0.7-1.0) mg/dL Estim Creat Clear Calc 62 ml/min Estimated GFR 57 L (59 - ) Glucose 116 H (65-110) mg/dL Calcium 9.3 (8.4-10.2) mg/dL Total Bilirubin 0.4 (0.2-1.3) mg/dL AST 29 (14-36) U/L ALT 28 (6-35) U/L Alkaline Phosphatase 84 (38-126) U/L Troponin I < 0.012 (0.000-0.034) ng/mL Total Protein 7.0 (6.3-8.2) g/dL Albumin 4.4 (3.5-5.1) g/dL Lipase 467 H (23-300) U/L <Charles Romero MD - Last Filed: 02/25/24 21:27> Imaging Data Radiologist's impression: ITS Impressions Chest X-Ray 02/25/24 18:30 IMPRESSION: No acute cardiopulmonary process. <Charles Romero MD - Last Filed: 02/25/24 21:27> ECG Data EKG #1: ECG completion date: 02/25/24 <Charles Romero MD - Last Filed: 02/25/24 21:27> ECG completion time: 18:07 <Charles Romero MD - Last Filed: 02/25/24 21:27> EKG Interpretation: normal rate (73), sinus rhythm, no ectopy, non-specific ST changes, normal QRS, normal QT and NL axis <Charles oRmero MD - Last Filed: 02/25/24 21:27> Discharge Plan Discharge Clinical Impression: Musculoskeletal chest pain, Back pain <Gina De Santiago PA-C - Last Filed: 02/25/24 18:14> Patient Disposition: Home, Self-Care <Gina De Santiago PA-C - Last Filed: 02/25/24 18:14> Condition: Stable <Gina De Santiago PA-C - Last Filed: 02/25/24 18:14> Instructions: Musculoskeletal Pain (ED) <Gina De Santiago PA-C - Last Filed: 02/25/24 18:14> Additional Instructions: Please return to the emergency department if you develop severe and persistent chest pain, difficulty breathing, dizziness, leg swelling or if you are coughing up blood as these can be signs of a medical emergency. Please call your doctor for a follow up appointment to determine the need for further testing. <MARITA Kaufman Last Filed: 02/25/24 18:14> Patient Language: Syriac <Gina De Santiago PA-C - Last Filed: 02/25/24 18:14> Prescriptions: No Action insulin aspart U-100 [Novolog U-100 Insulin aspart] 100 unit/mL Solution See Rx Instructions .ROUTE .COMPLEX Rx Instructions: USED IN OMNIPOD INSULIN POD estradiol 0.5 mg Tablet 0.5 mg PO DAILY Rx Instructions: off 5 days; repeat cycle multivitamin with minerals Tablet 100 tablet PO DAILY Patient Comments: dose not known clopidogrel 75 mg tablet 75 mg PO DAILY atorvastatin 80 mg Tablet 80 mg PO HS fexofenadine [Ariadna Allergy] 180 mg Tablet 180 mg PO DAILY citalopram 20 mg Tablet 20 mg PO DAILY famotidine 20 mg Tablet 20 mg PO BID metformin 1,000 mg Tablet 1,000 mg PO BID zolpidem 10 mg Tablet 10 mg PO HS PRN (Reason: Sleep) propranolol 20 mg Tablet 20 mg PO Q12H losartan 100 mg Tablet 100 mg PO DAILY ezetimibe 10 mg Tablet 10 mg PO DAILY Trulicity 3 mg/0.5 mL Pen Injector 4.5 mg SUBCUT WEEKLY Patient Comments: PT TAKES ON FRIDAY aspirin 81 mg tablet,delayed release (DR/EC) 80 mg PO DAILY buspirone 7.5 mg tablet 7.5 mg PO BID Jardiance 25 mg tablet 25 mg PO DAILY insulin lispro [Humalog U-100 Insulin] 100 unit/mL solution subcut QPM <Gina De Santiago PA-C - Last Filed: 02/25/24 18:14> Follow-up/Referrals: UNKNOWN,DOCTOR [Primary Care Provider] - 1 Week <MARITA Kaufman Last Filed: 02/25/24 18:14>
[2024-02-25 18:23] LABS: Basophils Absolute Auto 0.1 K/mm3 (0.0-0.1); Basophils Percent Auto 0.9 % (0.2-1.2); Eosinophils Absolute Auto 0.1 K/mm3 (0-0.3); Eosinophils Percent Auto 1.5 % (0-4.4); Hematocrit 39.7 % (37.0-47.0); Hemoglobin 12.7 g/dL (12.0-15.0); Immature Granulocyte Absolute 0.01 K/mm3 (0.00-0.031); Immature Granulocyte Percent A 0.1 % (0-0.5); Lymphocytes Absolute Auto 3.67 K/mm3 (0.9-3.2); Lymphocytes Percent Auto 45.3 % (18.3-44.2); Mean Corpuscular Hemoglobin 26.6 pg (26-34); Mean Corpuscular Volume 83.1 fl (80-100); Mean Platelet Volume 9.8 fl (7.4-10.4); Monocytes Absolute Auto 0.5 K/mm3 (0.1-0.6); Monocytes Percent Auto 6.4 % (2.6-8.5); Neutrophils Absolute Auto 3.7 K/mm3 (1.3-6.7); Neutrophils Percent Auto 45.8 % (45.5-73.1); Platelet Count Result 295 k/mm3 (150-375); Red Blood Count 4.78 M/mm3 (4.2-5.4); Red Cell Distribution Width 15.4 % (11.5-14.5); White Blood Count 8.1 K/mm3 (4.5-10.0)
[2024-02-25 18:37] LABS: Alanine Aminotransferase 28 U/L (6-35); Albumin Level 4.4 g/dL (3.5-5.1); Alkaline Phosphatase 84 U/L (38-126); Anion Gap 4 mmol/L (4-12); Aspartate Amino Transferase 29 U/L (14-36); Bilirubin,Total 0.4 mg/dL (0.2-1.3); Blood Urea Nitrogen 24 mg/dL (7-17); Calcium 9.3 mg/dL (8.4-10.2); Carbon Dioxide 27 mmol/L (22-30); Chloride 106 mmol/L (98-107); Estimated CRCL calculation 62 ml/min; Estimated Glomerular Filt Rate 57; Glucose 116 mg/dL (65-110); Lipase 467 U/L (23-300); Potassium 4.2 mmol/L (3.4-5.0); Prothrombin Time 13.2 Seconds (11.1-14.7); Sodium 137 mmol/L (137-145)
[2024-02-25 18:38] LABS: Partial Thromboplastin Time 25.6 Seconds (22.3-36.8)
[2024-02-25 18:48] LABS: Troponin I < 0.012 ng/mL (0.000-0.034)
[2024-02-25 20:23] VITALS: O2SAT 99
[2024-02-25 20:25] VITALS: BP 119/64; PULSE 71; RESP 13; O2SAT 99
[2024-02-25] MEDS: HYDROcodone/acetaminophen (*CRX) 5-325 MG TABLET 1 TAB PO (20:32)
--- OUTSIDE RECORDS SUMMARY | 2024-03-03 15:27 | XMS_ITS | Clinical Summary ---
Author Organization [facility] Address [address] [place] [address] Phone Care Team Providers Care Prep Manager Name Role Phone АНДРЕЙ ACEVEDO APRN Primary Care Provider [phone] Reason for Visit and Chief Complaint The Chief Complaint is: 1-2 WK BILATERAL L3 L4 L5 MBB DONE ON 01-31-22 80% RELIEF NOW NOT NOTICING MUCH PAIN. PT HAS SEEN PCP AND SHE IS GOING TO START THERAPY NEXT FOR HER RT SHOULDER ~PAIN ISTHE RT SIDE LOWER BACK GOES TO RIGHT HIP HURTS TO THE TOUCH Plan of Treatment Referrals To Diagnosis Pain Management [facility] - [address] [place] [address] - Spondylosis w/o myelopathy or radiculopathy, lumbar region Note: Confirmatory Bilateral L3, L4, L5 medial branch/dorsal ramus blocks (#2 of 2) under fluroscopy.Diabetic. Hold Plavix x 7 days. Hold ASA x 3 days. NO hold NSAIDs. No PIV/Abx.F/U in 7-10 days. Last Documented On 3:36PM ; [facility] Assessments Includes: Assessments from this encounter Findings - [M46.1 - Sacroiliitis, not elsewhere classified] Sacroiliitis - Last Documented On 02/14/2022 12:30PM ; [facility] - [M47.816 - Spondylosis without myelopathy or radiculopathy, lumbar region] Lumbar spondylosis without myelopathy or radiculopathy - Last Documented On 02/14/2022 12:30PM ; [facility] - [M79.18 - Myalgia, other site] Myalgia - Last Documented On 02/14/2022 12:30PM ; [facility] - [G89.4 - Chronic pain syndrome] Chronic pain syndrome - Last Documented On 02/14/2022 12:30PM ; [facility] Medical Equipment - Implanted Devices Includes: Current Devices No Medical Equipment Recorded Medications Includes: Medications discussed during this encounter and other current Medications Current Medications (continue as prescribed) Zolpidem Tartrate 10 MG Oral Tablet 11/26/2021 Provi felipe: Diagnosis: Last Documented On 11/26/2021 2:12PM By Emelina VARMA ; [facility] Sulfamethoxazole-Trimethoprim 800-160 MG Oral Tablet 0 11/23/2021 Provider: Diagnosis: Last Documented On 11/26/2021 2:08PM By Emelina VARMA ; [facility] Citalopram Hydrobromide 20 MG Oral Tablet 11/21/2021 Provider: Diagnosis: Last Documented On 11/26/2021 2:03PM By Emelina VARMA ; [facility] Aspirin Low Dose 81 MG Oral Tablet Delayed Release 11/21/2021 Provider: HEIDI BOBO MD Diagnosis: Last Documented On 11/26/2021 2:03PM By Emelina VARMA ; [facility] Fexofenadine HCl 180 MG Oral Tablet 11/20/2021 Provi felipe: АНДРЕЙ ACEVEDO APRN Diagnosis: Last Documented On 11/26/2021 2:04PM By Emelina VARMA ; [facility] Ezetimibe 10 MG Oral Tablet 11/20/2021 Provider: АНДРЕЙ ACEVEDO APRN Diagnosis: Last Documented On 11/26/2021 2:04PM By Emelina VARMA ; [facility] Famotidine 20 MG Oral Tablet 11/20/2021 Provider: АНДРЕЙ ACEVEDO APRN Diagnosis: Last Documented On 11/26/2021 2:04PM By Emelina VARMA ; [facility] Dexcom G6 Sensor Miscellaneous 11/19/2021 Provider: ALEISHA BUCHANAN MD Diagnosis: Last Documented On 11/26/2021 2:05PM By Emelina VARMA ; [facility] Estradiol 0.5 MG Oral Tablet 11/19/2021 Provider: Diagnosis: Last Documented On 11/26/2021 2:05PM By Emelina VARMA ; [facility] HumaLOG 100 UNIT/ML Injection Solution 11/19/2021 Pr ovider: DADA TYSON ANP Diagnosis: Last Documented On 11/26/2021 2:05PM By Emelina VARMA ; [facility] Losartan Potassium 100 MG Oral Tablet 11/19/2021 Pro vider: АНДРЕЙ ACEVEDO MANGANESE WHEELER Diagnosis: Last Documented On 11/26/2021 2:05PM By Emelina VARMA ; [facility] medroxyPROGESTERone Acetate 5 MG Oral Tablet Provider: Diagnosis: Last Documented On 11/26/2021 2:06PM By Emelina VARMA ; [facility] metFORMIN HCl 1000 MG Oral Tablet 11/19/2021 Provide r: DADA TYSON ANP Diagnosis: Last Documented On 11/26/2021 2:06PM By Emelina VARMA ; [facility] Omnipod DASH Pods (Gen 4) Miscellaneous 11/19/2021 P rovider: DADA TYSON ANP Diagnosis: Last Documented On 11/26/2021 2:06PM By Emelina VARMA ; [facility] Propranolol HCl 20 MG Oral Tablet 11/19/2021 Provide r: АНДРЕЙ ACEVEDO MANGANESE WHEELER Diagnosis: Last Documented On 11/26/2021 2:06PM By Emelina VARMA ; [facility] SUMAtriptan Succinate 50 MG Oral Tablet 11/19/2021 P rovider: Diagnosis: Last Documented On 11/26/2021 2:07PM By Emelina VARMA ; [facility] Trulicity 3 MG/0.5ML Subcuta neous Solution Pen-injector 11/19/2021 Provider: DADA TYSON ANP Diagnosis: ONCE A WEEK Last Documented On 11/26/2021 2:07PM By Emelina VARMA ; [facility] Atorvastatin Calcium 80 MG Oral Tablet 11/19/2021 Pr ovider: DADA TYSON ANP Diagnosis: Last Documented On 11/26/2021 2:04PM By Emelina VARMA ; [facility] Clopidogrel Bisulfate 75 MG Oral Tablet 11/19/2021 [place] amato: HEIDI BOBO MD Diagnosis: Last Documented On 11/26/2021 2:05PM By Emelina VARMA ; [facility] Medications Administered Includes: Administered Medications from this encounter No Administered Medications Recorded Vital Signs Includes: Vital Signs from this encounter Vital Name 02/14/2022 11:16A Temp-Oral (F) 99 Height (in) 65 Weight (lb) 214 Body Mass Index 35.6 Body Surface Area 2 Pain Level 3 Note: ALL VITALS GIVEN SANDRA BALLY BY PATIENT Last Documented: On 02/14/2022 11:19A M ; [facility] Results Includes: Results discussed during this encounter No Results Recorded For Specified Dates History of Present Illness Includes: History of Present Illness from this encounter HENNY ALFARO is a 56 year old female. This visit was conducted with use of interactive audio and video telecommunication system with real time communication between the patient and the provider. Patient consent for virtual visit obtained today. . - Allergy list reviewed - Allergy list reviewed - Problem list reviewed - Medication reconciliation performed - Medication list reviewed - Pain comes/goes - Primary pain location Back - Primary pain duration everyday - Secondary pain duration everyday - Secondary pain location Hip - Pain is sharp - Relieved by repositioning - Pain aggravated getting in/out of car - Pain aggravated going up stairs - Pain aggravated sitting - Pain aggravated standing - Pain aggravated by walking - Pain aggravated lifting - Pain aggravated bending Discussion: Patient returns today in follow-up after undergoing bilateral L3, L4, L5 medial branch/dorsal ramus blocks under fluoroscopic guidance. She describes significant improvement in low back pain (90% or greater) for the rest of the evening following this injection. This is associated with improve range of motion and activity tolerance. Her pain is now return to baseline and is greater than 6 - 7/10 intensity with activity. She is eager to move forward with repeat, confirmatory medial branch blocks prior to undergoing thermal radiofrequency ablation. Of note, she is had very little overall response to more conservative measures including physical therapy, topical and oral analgesics, other interventions, rest and time. Given the severity of her discomfort and limiting nature of her pain, she is a candidate for confirmatory blocks. If successful, will schedule her for bilateral thermal radio frequency ablation. Risk and benefits and alternatives the procedure were discussed in detail the patient who expressed explicit understanding and consent to proceed. [place] prescription monitoring database was reviewed and found to be appropriate. Questions were elicited, asked and answered to the best of our ability to her satisfaction today. PRIOR VISIT (01/14/22): Patient returns in follow-up for chronic low back pain. She has completed 8 sessions of physical therapy with improvement and range of motion, but little change and overall pain complaints. She describes axial low back pain as well as pain over the SI joints, R >L. We discussed a series of medial branch blocks with progression to RF ablation based on response. She may very well require follow-up injections in the SI joints for ongoing symptoms in this region. She will continue with physical therapy. INITIAL VISIT (11/26/21): Patient complains of chronic low back pain since age 17, but the last 5 years it has progressively worsened. She was seen pain management at [facility] 4-5 months and reports a planned epidural, but this was delayed due to failure to hold a medication. Since then her job was terminated and she lost her insurance. No recent physical therapy. She was given a shot of toradol, but this did not help. Oral steroids have been avoided due to elevated sugars. NSAIDS are avoided due to CKD. Tylenol is used as needed. Pain is mainly right sided and appears to be over the right SI and will go into the right lateral hip. Pain is worse with prolonged sitting, walking and transition from seated to standing. History of mild peripheral neuropathy in the feet from diabetes. Gabapentin used in past no benefit. Anticoagulant therapy after right lower extremity stent placement July 2020. Imaging: All relevant imaging available was personally reviewed with the patient today with the following tests and results noted: X-ray SI joints 12/12/21: unremarkable radiograph of bilateral SI joints. MRI L spine 11/28/21: disc herniation centrally moderate sized L5-S1. Facet joint arthropathy L4-5 and L5-S1 was spondylolisthesis L4-5 and spinal stenosis. Social History Description Last Updated Tobacco non-user 02/14/2022 Last Documented On 2 12:30PM ; [facility] No consumption of alcohol 01/14/2022 Last Documented On 2 11:11AM ; [facility] Not using drugs 01/14/2022 Last Documented On 2 11:11AM ; [facility] Difficulty walking 11/26/2021 Last Documented On 2 11:11AM ; [facility] Smoking Status Unknown Procedures and Surgical History Includes: Procedures from this encounter Procedures Code Diagnosis Performing Provider Service L ocation Service Date use of tobacco assessment performed 1000F Last Documented On 2 11:41AM ; [facility] review of medications documented 1160F Last Documented On 2 11:41AM ; [facility] screening for adult depression: impressi on and score five Last Documented On 2 11:16AM ; [facility] screening for adult depression: impressi on and score four Last Documented On 2 11:41AM ; [facility] standardized depression screening: posit mounika for symptoms Last Documented On 2 11:16AM ; [facility] Clinical summary provided to patient Last Documented On 2 11:41AM ; [facility] SOAPP-R: total score 5 Last Documented On 2 11:41AM ; [facility] Surgical History Last Updated No Pacemaker 01/14/2022 Last Documented On 2 11:11AM ; [facility] Medical History Includes: Medical History addressed during this encounter Description Last Updated primary care md 01/14/2022 Last Documented On 2 11:11AM ; [facility] Currently wearing eyeglasses 01/14/2022 Last Documented On 2 11:11AM ; [facility] Injection/Nerve blocks 01/14/2022 Last Documented On 2 11:11AM ; [facility] Moderate to severe pain 01/14/2022 Last Documented On 2 11:11AM ; [facility] No Pain Pump 01/14/2022 Last Documented On 2 11:11AM ; [facility] No Spinal cord stimulator 01/14/2022 Last Documented On 2 11:11AM ; [facility] Physical therapy 01/14/2022 Last Documented On 2 11:11AM ; [facility] Please list all illnesses/co nditions you have been diagnosed with: Diabetic 01/14/2022 Last Documented On 2 11:11AM ; [facility] Please list all surgeries: T onsils 73, 88,90,93, tubal 96, knee 16, 19, stint 21, carpal tunnel 12/15, elbow 11/1501/14/2022 Last Documented On 2 11:11AM ; [facility] Family History Includes: Family History addressed during this encounter Description Last Updated Maternal history of family history of is chemic heart disease 01/14/2022 Last Documented On 2 11:11AM ; [facility] Paternal history of stroke/paralysis Last Documented On 2 11:11AM ; [facility] Review of Systems Includes: Review of Systems from this encounter Systemic: No systemic symptoms other than noted, no fever, and no chills. Head: No head symptoms other then noted. Chronic/recurring headaches. Neck: No neck pain. Otolaryngeal: No otolaryngeal symptoms other than noted. Cardiovascular: No cardiovascular symptoms other than noted and no chest pain or discomfort. Pulmonary: No pulmonary symptoms other than noted and no dyspnea. Gastrointestinal: No gastrointestinal symptoms other than noted and no constipation. Genitourinary: No genitourinary symptoms other than noted. Endocrine: No endocrine symptoms other than noted. Hematologic: No easy bleeding and no tendency for easy bruising. Musculoskeletal: Back pain lower back pain, muscle aches, pain localized to one or more joints, and joint stiffness localized to one or more joints. Neurological: No neurological symptoms other than noted, no fainting passing out with needles or medical procedures, no motor disturbances, and no sensory disturbances. Psychological: No psychological symptoms other than noted and no anxiety. Depression. No depression. Skin: No skin symptoms other than noted and no rash. Mental Status Includes: Mental Status from this encounter Description Oriented to time, place, and person No anxiety Functional Status Includes: Functional Status from this encounter No Functional Status Recorded Physical Exam Includes: Physical Exam from this encounter Allergies Includes: Active Allergies Substance Type Reaction Onset Date Resolved Date Statu s Codeine Allergy 11/26/2021 Active Last Documented On 3 8:56AM ; [facility] Encounters Encounter Provider Location Date Check-In Time Check-Out Time Diagnosis [facility] IGNACIA ORTEGA MD [facility] 02/15/20 11:10AM 11:37AM Chronic Pain Syndrome,Sacroili itis,Spondylosis Without Myelopathy Or Radiculopathy Lumbar Region,Myalgia , Other Site (M79.18) Insurance Includes: Active Insurance Policies Plan Name Member ID Group # Subscriber Relationship Effect mounika Dates 1 - [facility] [id number] SANDHYA ALFARO Se Clinical Notes Includes: Clinical Notes from this encounter No Clinical Notes Recorded
--- OUTSIDE RECORDS SUMMARY | 2024-03-03 15:27 | XMS_ITS | Clinical Summary ---
Author Organization [facility] Address [address] [place] [id number] Phone Care Team Providers Care Tier Truck Driver Name Role Phone АНДРЕЙ ACEVEDO APRN Primary Care Provider [phone] Reason for Visit and Chief Complaint * PHONE CALL Plan of Treatment No Plan of Treatment Recorded Assessments Includes: Assessments from this encounter No Assessments Recorded Medical Equipment - Implanted Devices Includes: Current Devices No Medical Equipment Recorded Medications Includes: Medications discussed during this encounter and other current Medications Current Medications (continue as prescribed) Zolpidem Tartrate 10 MG Oral Tablet 11/26/2021 Provi felipe: Diagnosis: Last Documented On 11/26/2021 2:12PM By Emelina VARMA ; [facility] Sulfamethoxazole-Trimethoprim 800-160 MG Oral Tablet 0 11/23/2021 Provider: Diagnosis: Last Documented On 11/26/2021 2:08PM By Emelina VARMA ; [facility] Citalopram Hydrobromide 20 MG Oral Tablet 11/21/2021 Provider: Diagnosis: Last Documented On 11/26/2021 2:03PM By Emelina VARMA ; [facility] Aspirin Low Dose 81 MG Oral Tablet Delayed Release 11/21/2021 Provider: HEIDI BOBO MD Diagnosis: Last Documented On 11/26/2021 2:03PM By Emelina VARMA ; [facility] Fexofenadine HCl 180 MG Oral Tablet 11/20/2021 Provi felipe: АНДРЕЙ ACEVEDO APRN Diagnosis: Last Documented On 11/26/2021 2:04PM By Emelina VARMA ; [facility] Ezetimibe 10 MG Oral Tablet 11/20/2021 Provider: АНДРЕЙ ACEVEDO APRN Diagnosis: Last Documented On 11/26/2021 2:04PM By Emelina VARMA ; [facility] Famotidine 20 MG Oral Tablet 11/20/2021 Provider: АНДРЕЙ ACEVEDO APRN Diagnosis: Last Documented On 11/26/2021 2:04PM By Emelina VARMA ; [facility] Dexcom G6 Sensor Miscellaneous 11/19/2021 Provider: ALEISHA BUCHANAN MD Diagnosis: Last Documented On 11/26/2021 2:05PM By Emelina VARMA ; [facility] Estradiol 0.5 MG Oral Tablet 11/19/2021 Provider: Diagnosis: Last Documented On 11/26/2021 2:05PM By Emelina VARMA ; [facility] HumaLOG 100 UNIT/ML Injection Solution 11/19/2021 Pr ovider: DADA TYSON ANP Diagnosis: Last Documented On 11/26/2021 2:05PM By Emelina VARMA ; [facility] Losartan Potassium 100 MG Oral Tablet 11/19/2021 Pro vider: АНДРЕЙ ACEVEDO APRN Diagnosis: Last Documented On 11/26/2021 2:05PM By Emelina VARMA ; [facility] medroxyPROGESTERone Acetate 5 MG Oral Tablet Provider: Diagnosis: Last Documented On 11/26/2021 2:06PM By Emelina VARMA ; [facility] metFORMIN HCl 1000 MG Oral Tablet 11/19/2021 Provide r: DADA TYSON ANP Diagnosis: Last Documented On 11/26/2021 2:06PM By Emelina VARMA ; [facility] Omnipod DASH Pods (Gen 4) Miscellaneous 11/19/2021 P rovider: DADA TYSON ANP Diagnosis: Last Documented On 11/26/2021 2:06PM By Emelina VARMA ; [facility] Propranolol HCl 20 MG Oral Tablet 11/19/2021 Provide r: АНДРЕЙ ACEVEDO APRN Diagnosis: Last Documented On 11/26/2021 2:06PM By Emelina VARMA ; [facility] SUMAtriptan Succinate 50 MG Oral Tablet 11/19/2021 Nilton ellisder: Diagnosis: Last Documented On 11/26/2021 2:07PM By Emelina VARMA ; [facility] Trulicity 3 MG/0.5ML Subcuta neous Solution Pen-injector 11/19/2021 Provider: DADA TYSON ANP Diagnosis: ONCE A WEEK Last Documented On 11/26/2021 2:07PM By Emelina VARMA ; [facility] Atorvastatin Calcium 80 MG Oral Tablet 11/19/2021 Pr ovider: DADA TYSON ANP Diagnosis: Last Documented On 11/26/2021 2:04PM By Emelina VARMA ; [facility] Clopidogrel Bisulfate 75 MG Oral Tablet 11/19/2021 Nilton amato: HEIDI BOBO MD Diagnosis: Last Documented On 11/26/2021 2:05PM By Emelina VARMA ; [facility] Medications Administered Includes: Administered Medications from this encounter No Administered Medications Recorded Results Includes: Results discussed during this encounter No Results Recorded For Specified Dates History of Present Illness Includes: History of Present Illness from this encounter HENNY ALFARO is a 56 year old female. Pharmacy name:~location:[facility]. Social History Description Last Updated Tobacco non-user 02/14/2022 Last Documented On 3 10:23AM ; [facility] No consumption of alcohol 01/14/2022 Last Documented On 3 10:23AM ; [facility] Not using drugs 01/14/2022 Last Documented On 3 10:23AM ; [facility] Difficulty walking 11/26/2021 Last Documented On 3 10:23AM ; [facility] Smoking Status Unknown Procedures and Surgical History Surgical History Last Updated No Pacemaker 01/14/2022 Last Documented On 3 10:23AM ; [facility] Medical History Includes: Medical History addressed during this encounter Description 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/14/2022 Last Documented On 3 10:23AM ; [facility] Currently wearing eyeglasses 01/14/2022 Last Documented On 3 10:23AM ; [facility] Injection/Nerve blocks 01/14/2022 Last Documented On 3 10:23AM ; [facility] Moderate to severe pain 01/14/2022 Last Documented On 3 10:23AM ; [facility] No Pain Pump 01/14/2022 Last Documented On 3 10:23AM ; [facility] No Spinal cord stimulator 01/14/2022 Last Documented On 3 10:23AM ; [facility] Physical therapy 01/14/2022 Last Documented On 3 10:23AM ; [facility] Please list all illnesses/co nditions you have been diagnosed with: Diabetic 01/14/2022 Last Documented On 3 10:23AM ; [facility] Please list all surgeries: T onsils 73, 88,90,93, tubal 96, knee 16, 19, stint 21, carpal tunnel 12/15, elbow 11/1501/14/2022 Last Documented On 3 10:23AM ; [facility] Family History Includes: Family History addressed during this encounter Description Last Updated Maternal history of family history of is chemic heart disease 01/14/2022 Last Documented On 3 10:23AM ; [facility] Paternal history of stroke/paralysis Last Documented On 3 10:23AM ; [facility] Review of Systems Includes: Review of Systems from this encounter No Review of Systems Recorded Mental Status Includes: Mental Status from this encounter No Mental Status Recorded Functional Status Includes: Functional Status from this encounter No Functional Status Recorded Physical Exam Includes: Physical Exam from this encounter No Physical Exam Recorded Allergies Includes: Active Allergies Substance Type Reaction Onset Date Resolved Date Statu s Codeine Allergy 11/26/2021 Active Last Documented On 3 8:56AM ; [facility] Encounters Encounter Provider Location Date Check-In Time Check-Out Time Diagnosis * PHONE CALL IGNACIA ORTEGA MD 04/05/2022 10:23AM 11:59PM Insurance Includes: Active Insurance Policies Plan Name Member ID Group # Subscriber Relationship Effect mounika Dates - [facility] [id number] SANDHYA ALFARO Se Clinical Notes Includes: Clinical Notes from this encounter * Progress note Date Encounter Last Documented by 04/05/2022 * PHONE CALL Last documented on 04/05/2022; 1:02 PM, IGNACIA ORTEGA MD; [facility] Chief Complaint Phone Call - Chief Concern: reason for call: PT CALLS IN SHE HAD HER ABLATION THIS MORNING AND SHE SAID THAT YOU MENTIONED SOME KIND OF ARTHRITIS MEDICATION FOR HER TO TAKE FOR HER PAIN. SHE IS UNABLE TO TAKE N'SAIDS THOUGH. PLEASE ADVISE pt phone # for return call:[phone] date/initials: 04-05-22 [facility]. History of Present Illness SANDHYA ALFARO is a 56 year old female. Pharmacy name:~location:[facility]. Current Medication - Aspirin Low Dose 81 MG Oral Tablet Delayed Release One tablet daily 28 days, 0 refills - Atorvastatin Calcium 80 MG Oral Tablet One tablet daily 28 days, 0 refills - Citalopram Hydrobromide 20 MG Oral Tablet One tablet daily 28 days, 0 refills - Clopidogrel Bisulfate 75 MG Oral Tablet One tablet daily 28 days, 0 refills - Dexcom G6 Sensor Miscellaneous as directed 30 days, 0 refills - Estradiol 0.5 MG Oral Tablet One tablet daily 28 days, 0 refills - Ezetimibe 10 MG Oral Tablet One tablet daily 28 days, 0 refills - Famotidine 20 MG Oral Tablet One tablet daily 28 days, 0 refills - Fexofenadine HCl 180 MG Oral Tablet One tablet daily 28 days, 0 refills - HumaLOG 100 UNIT/ML Injection Solution as directed 30 days, 0 refills - Losartan Potassium 100 MG Oral Tablet One tablet daily 28 days, 0 refills - medroxyPROGESTERone Acetate 5 MG Oral Tablet One tablet daily 28 days, 0 refills - metFORMIN HCl 1000 MG Oral Tablet One tablet twice a day 28 days, 0 refills - Omnipod DASH Pods (Gen 4) Miscellaneous as directed 30 days, 0 refills - Propranolol HCl 20 MG Oral Tablet One tablet daily 28 days, 0 refills - Sulfamethoxazole-Trimethoprim 800-160 MG Oral Tablet One tablet twice a day 7 days, 0 refills - SUMAtriptan Succinate 50 MG Oral Tablet as needed 4 days, 0 refills - Trulicity 3 MG/0.5ML Subcutaneous Solution Pen-injector as directed ONCE A WEEK, 28 days, 0 refills - Zolpidem Tartrate 10 MG Oral Tablet One tablet at bed time 0 days, 0 refills Past Medical/Surgical History Reported: Injection/Nerve blocks, careers counsellor, Physical therapy, Please list all illnesses/conditions you have been diagnosed with: Diabetic, and Please list all surgeries: Tonsils 73, 88,90,93, tubal 96, knee 16, 19, stint 21, carpal tunnel 12/15, elbow 11/15. Medical: Currently wearing eyeglasses and orthopedic history Left Knee Score mild pain Moderate to severe pain. No Spinal cord stimulator and no Pain Pump. Surgical / Procedural: No Pacemaker. Social History Difficulty walking. Tobacco use: Tobacco non-user. Alcohol: No consumption of alcohol. Drug Use: Not using drugs. Allergies - Codeine Family History Paternal: Stroke/paralysis Maternal: Ischemic heart disease Plan StartCited - Other *LONI likely voltaren gel 4 grams over low back up to 4 times daily. EndCited Health Reminders - Assess Tobacco Use satisfied 04/05/2022.
--- OUTSIDE RECORDS SUMMARY | 2024-03-03 15:27 | XMS_ITS | Data Portability ---
Author Organization [place] [facility] [employer], Main Office Address [address] [place] [address] Assessment No assessment recorded. Plan of Treatment Reminders Order Date Submit Date Provider Last Modified By Organization Details Last Modified Time Details Appointments None recorded. Lab None recorded. Referral None recorded. Procedures upper endoscopy procedure (EGD) (PROC) 2023 024 ALVARO Not available 14:13:01 Surgeries None recorded. Imaging None recorded. Medication Orders None recorded. Patient TargetsNo targets recorded. Patient Instructions Encounter Date Encounter Id Patient Instructions Last Modified By Organization Details Last Modified Time 04/02/2023 [id number] REFLUX DIET [email or web address] Not available 0 04/02/2023 12:12:26 PT WITH GERD SX . NEED TO R/P PUD/ H. PYLORI . RECOMMEND AN EGD . Risks benefits and complications were explained to the pt. ( BLEEDING PERFORATION , INFECTION , ). PT VERBALIZES UNDERSTANDING AND IS WILLING TO PROCEDE . [email or web address] Not available 04/02/2023 12:12:58 Reason for Referral None Reported. Results Created Date Observation Date Name Description Value Unit Range Abnormal Flag Note LastModifiedBy Organization Detail LastModifiedTime 04/26/1904/25/2020 BMP, serum or plasm a sodium 138 mmol/ L 137-14 5 Not Available [facility] (Lab) [address] [place], [address], 04/25/2020 11:48:00 04/26/19 21 04/25/2020 BMP, serum or plasm a potassium 4.7 mmol/ L 3.5-5. 1 Not Available [facility] (Lab) [address] [place], [address], 04/25/2020 11:48:00 04/26/19 21 04/25/2020 BMP, serum or plasm a chloride 102 mmol/ L 98-107 Not Available [facility] (Lab) [address] [place], [address], 04/25/2020 11:48:00 04/26/19 21 04/25/2020 BMP, serum or plasm a carbon dioxide 27 mmol/ L 22-30 Not Available [facility] (Lab) [address] [place], [address], 04/25/2020 11:48:00 04/26/19 21 04/25/2020 BMP, serum or plasm a agap 13.7 mmol/ L 14-22 low Not Available [facility] (Lab) [address] [place], [address], 04/25/2020 11:48:00 04/26/19 21 04/25/2020 BMP, serum or plasm a glucose 137 mg/dL 70-99 high Not Available [facility] (Lab) [address] [place], [address], 04/25/2020 11:48:00 04/26/19 21 04/25/2020 BMP, serum or plasm a BUN 18 mg/dL 8-19 Not Available [facility] (Lab) [address] [place], [address], 04/25/2020 11:48:00 04/26/19 21 04/25/2020 BMP, serum or plasm a creatinine 0.95 mg/dL 0.66-1 .25 Not Available [facility] (Lab) [address] [place], [address], 04/25/2020 11:48:00 04/26/19 21 04/25/2020 BMP, serum or plasm a GFR >60 GFR is calcu lated based on [place] [facility] (Afri can Ameri can or Non-[place] f[place] n Ameri can) Age and Sex from the Patie nt Elias trati on Infor matio n. REFER ENCE RANGE S: [facility] ge GFR for Healt hy Adult s: >60 mL/mi n/1.7 3 m Chron ic Kidne y Disea se: 15 - 60 mL/mi n/1.7 3 m Kidne y Failu re: <15 mL/mi n/1.7 3 m REFER ENCE RANGE S ARE NOT AVAIL ABLE FOR PATIE NTS <18 OR >70 YEARS OF AND WILL BE RESUL AUBREY WITH TNP (TEST NOT PERFO RMED) Not Available [facility] (Lab) [address] [place], [address], 04/25/2020 11:48:00 04/26/19 21 04/25/2020 BMP, serum or plasm a calcium 9.8 mg/dL 8.4-10 .2 Not Available [facility] (Lab) [address] [place], [address], 04/25/2020 11:48:00 05/02/19 21 05/01/2020 SARS CoV 2 RNA (COVI D-19) , QL, electrical instrument repairer-P CR, respi rator y speci men covid-19 RNA negati ve This test has been autho rized by the FDA under an Emerg ency Use Autho rizat ion (EUA) for use by autho rized labor atori es. Negat mounika resul ts shoul d be treat ed as presu mptiv e and, if incon siste nt with clini bisi signs and sympt oms neces liz for patie nt manag ement , shoul d be teste d with diffe rent autho rized or clear ed molec ular tests . Negat mounika resul ts do not precl ude SARS- Co-V- 2 infec tion and shoul d not be used as the sole basis for patie nt manag ement decis ions. Negat mounika resul ts shoul d be consi dered in the asael xt of a patie nt's recen t expos ures, histo ry and the prese nce of clini bisi signs and sympt oms consi stent with COVID -19. Pleas e revie w the Fact Sheet s for healt h care provi felipes and albert nts at the [facility] te: https ://gl oao into care. t/en/ produ ct-de tails /id-n ow-co vid-1 9.htm l Metho dolog y: Isoth ermal Nucle ic Acid Ampli ficat ion Not Available [facility] (Lab) [address] [facility], [place], [address], 05/01/2020 11:04:32 04/21/19 24 04/21/2023 upper endos copy proce dure (EGD) (PROC ) No observ ation record ed. BARCODE Not Available 2023 14:13:01 Result Notes None recorded. Problems Name Problem SNOMED Code Status Onset Date Resolution Date Notes Provider Name and Address Organization Details Recorded Time Internal derangemen t of right knee Active 2020 Not Available [facility] 3 01:12:38 Tear of medial meniscus of knee 233930190 Active 2020 Not Available [facility] 3 01:12:38 Osteoarthr itis of right knee joint 2294000216709 00 Active 2020 Not Available [facility] 3 01:12:38 Gastroesop hageal reflux disease without esophagiti s 205554899 Active 2023 Shelly Potts MD [address] [facility], [facility] [address], [place], [address] , [facility] [employer] 4 12:12:01 Problem Notes None recorded. Procedures Surgical History Date Name Laterality Status Provider Name and Address Organization Details Recorded Time Ablation completed KOJO Zelaya [facility] [employer] 03/18/2023 09:21:49 section completed KOJO Zelaya Ander [place] [employer] 03/18/2023 09:22:24 Knee Surgery completed KOJO Zelaya [facility] [employer] 03/18/2023 09:22:37 Tonsillectomy completed KOJO Zelaya [facility] 03/18/2023 09:23:14 Carpal tunnel completed Berta Nita KOJO PA [facility] 03/18/2023 09:23:29 procedure on ganglion cyst completed Madhudarcy EstrellaNita, KOJO [facility] 03/18/2023 09:23:43 Imaging Results Imaging Date Name Status LastModified by Organiz ation Details LastModified Time 04/21/2023 upper endoscopy procedure (EGD) (PROC) completed [facility] Information not available 04/21/2023 14:13:01 Procedure Notes None recorded. Medical Equipment None Reported. Allergies Allergen ID Allergen Name Allergen Category Reaction Reaction Severity Criticality Documentation Date Start Date Code Code System Note Provider Name and Address Organization Details Recorded Time 1991 codeine medicatio n vomiting Not available Not available 04/24/2022 2670 RxNorm Not Available [facility] 01:18:46 Medications Name Sig Start Date Stop Date Status Note LastModified by Organization Details LastModified Time cyclobenzap rine 10 mg tablet Take 1 tablet 3 times a day by oral route. active Not Available Not Available No t Available atorvastati n 40 mg tablet 03/27 completed Not Available Not Available Not Available methocarbam ol 500 mg tablet TAKE 1 TABLET BY MOUTH EVERY 6 HOURS NEEDED active Not Available Not Available No t Available buspirone 5 mg tablet Take 1 tablet twice a day by oral route. active Not Available Not Available No t Available atorvastati n 80 mg tablet active Not Available Not Available Not Available citalopram 40 mg tablet 03/27 completed Not Available Not Available Not Available cetirizine 10 mg tablet 03/27 completed Not Available Not Available Not Available fluconazole 150 mg tablet 03/27 completed Not Available Not Available Not Available citalopram 10 mg tablet 03/18 completed Not Available Not Available Not Available hydrocodone 5 mg-acetamin ophen 325 mg tablet TAKE 1 TABLET BY MOUTH EVERY 4 HOURS 03/18 completed Not Available Not Available Not Available naltrexone 50 mg tablet active Not Available Not Available Not Available venlafaxine 25 mg tablet 03/27 completed Not Available Not Available Not Available lisinopril 20 mg tablet 03/18 completed Not Available Not Available Not Available prednisone 20 mg tablet TAKE 2 TABLETS BY MOUTH EVERY DAY FOR 5 DAYS active Not Available Not Available No t Available terconazole 0.8 % vaginal cream active Not Available Not Available Not Available Lantus U-100 Insulin 100 unit/mL subcutaneou s solution 03/27 completed Not Available Not Available Not Available sumatriptan 50 mg tablet active Not Available Not Available Not Available penicillin V potassium 500 mg tablet TAKE 1 TABLET BY MOUTH 4 TIMES A DAY 03/27 completed Not Available Not Available Not Available metronidazo le 500 mg tablet 03/27 completed Not Available Not Available Not Available clopidogrel 75 mg tablet active Not Available Not Available Not Available fexofenadin e 180 mg tablet Take 1 tablet every day by oral route. active Not Available Not Available No t Available sulfamethox azole 800 mg-trimetho prim 160 mg tablet 03/18 completed Not Available Not Available Not Available aspirin 81 mg tablet,xenia yed release active Not Available Not Available Not Available tramadol 50 mg tablet active Not Available Not Available No t Available venlafaxine 100 mg tablet 03/27 completed Not Available Not Available Not Available bupropion HCl 100 mg tablet 03/18 completed Not Available Not Available Not Available citalopram 20 mg tablet active Not Available Not Available Not Available famotidine 20 mg tablet Take 1 tablet twice a day by oral route. active Not Available Not Available No t Available Humalog U-100 Insulin 100 unit/mL subcutaneou s solution active Not Available Not Available N ot Available Kenalog 10 mg/mL suspension for injection In office injection administe red by the provider 03/18 completed [facility]: 0003- 0494- 20 Not Available Not Available Not Available amitriptyli ne 10 mg tablet 03/27 completed Not Available Not Available Not Available meclizine 25 mg tablet Take 1 tablet 3 times a day by oral route. active Not Available Not Available No t Available baclofen 10 mg tablet TAKE 1 TABLET BY MOUTH 3 TIMES A DAY NEEDED FOR MUSCLE SPASMS FOR 3 DAYS active Not Available Not Available No t Available cephalexin 500 mg capsule 03/27 completed Not Available Not Available Not Available metformin 1,000 mg tablet active Not Available Not Available Not Available ranitidine 150 mg tablet 03/27 completed Not Available Not Available Not Available lisinopril 10 mg tablet 03/27 completed Not Available Not Available Not Available losartan 25 mg tablet 03/18 completed Not Available Not Available Not Available nicotine 21 mg/24 hr daily transdermal patch 03/18 completed Not Available Not Available Not Available hydrochloro thiazide 12.5 mg capsule 03/18 completed Not Available Not Available Not Available venlafaxine 50 mg tablet 03/27 completed Not Available Not Available Not Available Banophen 25 mg capsule active Not Available Not Available N ot Available insulin syringe U-100 with needle 1 mL 31 gauge x 16 03/27 completed Not Available Not Available Not Available alcohol swabs active Not Available Not Available Not Available norethindro ne acetate 5 mg tablet 03/18 completed Not Available Not Available Not Available estradiol 0.5 mg tablet 03/18 completed Not Available Not Available Not Available Novolog U-100 Insulin aspart 100 unit/mL subcutaneou s solution 03/18 completed Not Available Not Available Not Available azelastine 137 mcg (0.1 %) nasal spray active Not Available Not Available Not Available zolpidem 10 mg tablet TAKE 1 TABLET BY MOUTH EVERY DAY AT BEDTIME NEEDED active Not Available Not Available No t Available methylpredn isolone 4 mg tablets in a dose pack TAKE BY MOUTH DIRECTED ON INSIDE OF PACKAGE 03/18 completed Not Available Not Available Not Available propranolol 20 mg tablet active Not Available Not Available Not Available fluticasone propionate 50 mcg/actuati on nasal spray,suspe nsion 03/27 completed Not Available Not Available Not Available metformin ER 500 mg tablet,exte nded release 24 hr 03/27 completed Not Available Not Available Not Available medroxyprog esterone 150 mg/mL intramuscul ar suspension 03/27 completed Not Available Not Available Not Available diazepam 5 mg tablet 03/18 completed Not Available Not Available Not Available amoxicillin 875 mg-potassiu m clavulanate 125 mg tablet active Not Available Not Available Not Available ezetimibe 10 mg tablet active Not Available Not Available Not Available nicotine (polacrilex ) 4 mg buccal lozenge 03/18 completed Not Available Not Available Not Available nitrofurant oin monohydrate /macrocryst als 100 mg capsule active Not Available Not Available Not Available duloxetine 20 mg capsule,del ayed release 03/27 completed Not Available Not Available Not Available duloxetine 30 mg capsule,del ayed release active Not Available Not Available Not Available losartan 100 mg-hydrochl orothiazide 12.5 mg tablet Take 1 tablet every day by oral route. active Not Available Not Available No t Available OneTouch Ultra2 Meter kit USE TO CHECK GLUCOSE 4 X DAILY 03/27 completed Not Available Not Available Not Available lidocaine (PF) 10 mg/mL (1 %) injection solution In office injection administe red by the provider 03/18 completed [facility]: 0409- 4276- 17 Not Available Not Available Not Available Apidra U-100 Insulin 100 unit/mL subcutaneou s solution 03/27 completed Not Available Not Available Not Available cholecalcif fara (vitamin D3) 25 mcg (1,000 unit) tablet active Not Available Not Available Not Available Januvia 100 mg tablet 03/27 completed Not Available Not Available Not Available Lantus Solostar U-100 Insulin 100 unit/mL (3 mL) subcutaneou s pen active Not Available Not Available Not Available Advocate Redi-Code strips 03/27 completed Not Available Not Available Not Available Humalog KwikPen Insulin active Not Available Not Available Not Available cetirizine 10 mg capsule Take by oral route. 03/18 completed Not Available Not Available Not Available OneTouch Delica Lancets 33 gauge USE TO CHECK GLUCOSE 4 X DAILY 03/27 completed Not Available Not Available Not Available Chantix Starting Month Box 0.5 mg (11)-1 mg (42) tablets in dose pack 03/31 completed Not Available Not Available Not Available Vitamin D2 active Not Available Not Av ailable Not Available Advocate Lancet 30 gauge 03/27 completed Not Available Not Available Not Available Victoza 3-Kunal 0.6 mg/0.1 mL (18 mg/3 mL) subcutaneou s pen injector active Not Available Not Available Not Available Jardiance 10 mg tablet 03/27 completed Not Available Not Available Not Available Jardiance 25 mg tablet active Not Available Not Available Not Available Trulicity 1.5 mg/0.5 mL subcutaneou s pen injector active Not Available Not Available Not Available Ozempic 1 mg/dose (2 mg/1.5 mL) subcutaneou s pen injector active Not Available Not Available Not Available Ozempic 0.25 mg or 0.5 mg (2 mg/1.5 mL) subcutaneou s pen injector active Not Available Not Available Not Available OneTouch Ultra Blue Test Strip USE TO CHECK BLOOD GLUCOSE 4 TIMES A DAY active Not Available Not Available No t Available Dexcom G6 Transmitter device active Not Available Not Available Not Available Fluzone Quad 2017-(PF) 60 mcg(15 mcgx4)/0.5 mL intramuscul ar syringe 03/27 completed Not Available Not Available Not Available Omnipod Dash Pods (Gen 4) subcutaneou s cartridge CHANGE OMNIPOD POD EVERY 48 HOURS active Not Available Not Available No t Available Trulicity 3 mg/0.5 mL subcutaneou s pen injector 03/18 completed Not Available Not Available Not Available Trulicity 4.5 mg/0.5 mL subcutaneou s pen injector active Not Available Not Available Not Available Ozempic 1 mg/dose (4 mg/3 mL) subcutaneou s pen injector 03/18 completed Not Available Not Available Not Available Mounjaro 2.5 mg/0.5 mL subcutaneou s pen injector active Not Available Not Available Not Available Dexcom G7 Sensor device active Not Available Not Available Not Available Vitals Date Recorded Body mass index (BMI) Body height Body weight Provider Name and Address Organization Details Last Updated DateTime 05/16/2020 37.4 kg/m2 165.1 cm 900022.28 g Not Available [facility] 04/24/2022 01:09:35 Date Recorded Body mass index (BMI) Body height Body weight Provider Name and Address Organization Details Last Updated DateTime 11/09/2020 38.3 kg/m2 165.1 cm 066108.25 g Not Available [facility] 04/24/2022 01:09:35 Date Recorded Body mass index (BMI) Body height Body weight Provider Name and Address Organization Details Last Updated DateTime 12/14/2020 35.6 kg/m2 165.1 cm 52891.77 g Not Available [facility] 04/24/2022 01:09:35 Date Recorded Body height Body mass index (BMI) Body weight Heart rate Oxygen saturation Oxygen saturation in Arterial blood by Pulse oximetry Systolic blood pressure Diastolic blood pressure Provider Name and Address Organization Details Last Updated DateTime 165.1 cm 36.6 kg/m2 12605.3 2 g 76 /min 96 % 96 % 124 mm[Hg] 70 mm[Hg] KOJO Zelaya [employer] 12:10:23 Social History Question Answer Notes LastModified by Organizat ion Details LastModified Time Tobacco Smoking Status Never Smoker KOJO Zelaya null [employer] [employer] 03/18/2023 09:21:38 What Is Your Level Of Alcohol Consumption? None Information not available 03/18/2023 Do You Use Any Illicit Or Recreational Drugs? No Information not available 03/18/2023 Sex: Unknown Functional Status None recorded. Mental Status None recorded. Family History Relationship Description Onset Age of this Age Resolved Age Notes LastModified by Organization Details LastModified Time Mother Malignant tumor of lung [email or web address] Not available 2023 09:17:31 Medical History Condition Response GERD/NAUSEA Y Gynecological HistoryNo gynecological history recorded. Obstetrics History GPAL:G 0 P 0 0 0 0 Past Encounters Encounter ID Performer Location Encounter Start Date Encounter Closed Date Diagnosis/Indication Diagnosis SNOMED-CT Code Diagnosis ICD10 Code Diagnosis Note [id number] [facility] [address] [place] [id number] 05/16/2020 00:00:00 05/16/2020 09:20:46 [id number] [facility] [place] [address] [place] [address] 11/09/2020 00:00:00 11/09/2020 13:40:46 [id number] [facility] [place] [address] [place] [address] 12/14/2020 00:00:00 12/14/2020 12:28:11 [id number] Shelly Potts MD [facility] General [facility] [address] [facility], [facility] [address] [place] [address] 04/02/2023 12:07:10 04/02/2023 12:42:42 Gastroesophageal reflux disease without esophagitis 122212653 K21.9 Health Concerns Section Related Observation LastModified by Organization Detai ls LastModified Time None Recorded Concern Status LastModified by Organization Details LastModified Time None Recorded Advance Directives Directive None Recorded Payers Encounter Date Sequence Insurance Name Policy Number Policy Arechiga Covered Member ID Arechiga Member ID Guarantor Name 04/02/2023 1 [facility] ON OR AFTER 08/24/20 (MEDICAID REPLACEMENT - HMO) Sandy Lopez [id number] Sandy Lopez Notes Date Note Type Note Provider Name and Address Organization Details Recorded Time 05/16/2020 text/html KneeReported bypatient.Location :medial Quality:sharp; deep; occasional Severity:moderate Duration:continuou s since onset Timing:acute; abrupt Context:cannot identify Alleviating Factors:lying down; elevation; exercise; stretching Aggravating Factors:walking; lifting; carrying; twisting; bending/squatting Associated Symptoms:swelling; popping/clicking;b uckling Not Available [employer] 05/16/2020 09:20:46 11/09/2020 text/html KneeReported bypatient.Location :medial Quality:sharp; deep; occasional Severity:moderate Duration:continuou s since onset Timing:acute; abrupt Context:cannot identify Alleviating Factors:lying down; elevation; exercise; stretching Aggravating Factors:walking; lifting; carrying; twisting; bending/squatting Associated Symptoms:swelling; popping/clicking;b uckling Not Available [employer] 11/09/2020 13:40:46 12/14/2020 text/html KneeReported bypatient.Location :medial Quality:sharp; deep; occasional Severity:moderate Duration:continuou s since onset Timing:acute; abrupt Context:cannot identify Alleviating Factors:lying down; elevation; exercise; stretching Aggravating Factors:walking; lifting; carrying; twisting; bending/squatting Associated Symptoms:swelling; popping/clicking;b uckling Not Available [employer] 12/14/2020 12:28:11 04/02/2023 text/html PT WAS SEEN IN T HE OFFICE TODAY FOR GERD . PT ADMITS TO ABD PAIN /N/V. PT ADMITS TO PYROSIS. PT REPORTS THAT SHE WAS TOLD THAT SHE HAD A HERNIA X 7 YRS AGO . SHE REPORTS A LUMP LIKE FEELING IN THE THROAT . PT IS ON FAMOTIDINE NOW. THIS IS NOT HELPING HER SX . Shelly Potts MD [address] [facility], [place] [address], [place], [address], [place] [facility] [place] [employer] [facility] 04/02/2023 12:36:50 OBGyn Episode No OBEpisode recorded.
--- OUTSIDE RECORDS SUMMARY | 2024-03-03 15:27 | XMS_ITS ---
Care Plan - [facility] Created on: March 03, 2024 SANDHYA ALFARO : 1965 Sex: Female Author Organization [facility] Address [address] [place] [phone] Phone Care Team Providers Care Inspector Balance Bridge Name Role Phone АНДРЕЙ ACEVEDO APRN Primary Care Provider [phone]
--- OUTSIDE RECORDS SUMMARY | 2024-03-03 15:27 | XMS_ITS | Clinical Summary ---
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 Name Role Phone АНДРЕЙ ACEVEDO APRN Primary Care Provider [phone] Reason for Visit and Chief Complaint POST PROCEDURE PHONE CALL Plan of Treatment No Plan [...] On 11/26/2021 2:12PM By Emelina VARMA ; [facility] Sulfamethoxazole-Trimethoprim 800-160 MG Oral Tablet 0 11/23/2021 Provider: Diagnosis: Last Documented On 11/26/2021 2:08PM By Emelina VARMA ; [facility] Citalopram Hydrobromide 20 MG Oral Tablet 11/21/2021 Provider: Diagnosis: Last Documented On 11/26/2021 2:03PM By Emelina VARMA ; [facility] Aspirin Low Dose 81 MG Oral Tablet Delayed Release 11/21/2021 Provider: HEIDI BOBO MD Diagnosis: Last Documented On 11/26/2021 2:03PM By Emelina VARMA ; [facility] Fexofenadine HCl 180 MG Oral Tablet 11/20/2021 Provi felipe: АНДРЕЙ ACEVEDO APRN Diagnosis: Last Documented On 11/26/2021 2:04PM By Emelina VARMA ; [facility] Ezetimibe 10 MG Oral Tablet 11/20/2021 Provider: АНДРЕЙ ACEVEDO APRN Diagnosis: Last Documented On 11/26/2021 2:04PM By Emelina VARMA ; [facility] Famotidine 20 MG Oral Tablet 11/20/2021 Provider: АНДРЕЙ ACEVEDO APRN Diagnosis: Last Documented On 11/26/2021 2:04PM By Emelina VARMA ; [facility] Dexcom G6 Sensor Miscellaneous 11/19/2021 Provider: ALEISHA BUCHANAN MD Diagnosis: Last Documented On 11/26/2021 2:05PM By Emelina VARMA ; [facility] Estradiol 0.5 MG Oral Tablet 11/19/2021 Provider: Diagnosis: Last Documented On 11/26/2021 2:05PM By Emelina VARMA ; [facility] HumaLOG 100 UNIT/ML Injection Solution 11/19/2021 Pr ovider: DADA TYSON ANP Diagnosis: Last Documented On 11/26/2021 2:05PM By Emelina VARMA ; [facility] Losartan Potassium 100 MG Oral Tablet 11/19/2021 Pro vider: АНДРЕЙ ACEVEDO APRN Diagnosis: Last Documented On 11/26/2021 2:05PM By Emelina VARMA ; [facility] medroxyPROGESTERone Acetate 5 MG Oral Tablet Provider: Diagnosis: Last Documented On 11/26/2021 2:06PM By Emelina VARMA ; [facility] metFORMIN HCl 1000 MG Oral Tablet 11/19/2021 Provide r: DADA TYSON ANP Diagnosis: Last Documented On 11/26/2021 2:06PM By Emelina VARMA ; [facility] Omnipod DASH Pods (Gen 4) Miscellaneous 11/19/2021 P rovider: DADA TYSON ANP Diagnosis: Last Documented On 11/26/2021 2:06PM By Emelina VARMA ; [facility] Propranolol HCl 20 MG Oral Tablet 11/19/2021 Provide r: АНДРЕЙ ACEVEDO APRN Diagnosis: Last Documented On 11/26/2021 2:06PM By Emelina VARMA ; [facility] SUMAtriptan Succinate 50 MG Oral Tablet 11/19/2021 Nilton amato: Diagnosis: Last Documented On 11/26/2021 2:07PM By Emelina VARMA ; [facility] Trulicity 3 MG/0.5ML Subcuta neous Solution Pen-injector 11/19/2021 Provider: DADA TYSON ANP Diagnosis: ONCE A WEEK Last Documented On 11/26/2021 2:07PM By Emelina VARMA ; [facility] Atorvastatin Calcium 80 MG Oral Tablet 11/19/2021 Pr ovider: DADA TYSON ANP Diagnosis: Last Documented On 11/26/2021 2:04PM By Emelina VARMA ; [facility] Clopidogrel Bisulfate 75 MG Oral Tablet 11/19/2021 Nilton amato: HEIDI BOBO MD Diagnosis: Last Documented On 11/26/2021 2:05PM By Emelina VARMA ; [facility] Medications Administered Includes: Administered Medications from this encounter No Administered Medications Recorded Results Includes: Results discussed during this encounter No Results Recorded For Specified Dates History of Present Illness Includes: History of Present Illness from this encounter No History of Present Illness Recorded Social History Description Last Updated Tobacco non-user 02/14/2022 Last Documented On 3 8:45AM ; [facility] No consumption of alcohol 01/14/2022 Last Documented On 3 8:45AM ; [facility] Not using drugs 01/14/2022 Last Documented On 3 8:45AM ; [facility] Difficulty walking 11/26/2021 Last Documented On 3 8:45AM ; [facility] Smoking Status Unknown Procedures and Surgical History Surgical History Last Updated No Pacemaker 01/14/2022 Last Documented On 3 8:45AM ; [facility] Medical History Includes: Medical History addressed during this encounter Description 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 Last Documented On 3 8:45AM ; [facility] Currently wearing eyeglasses 01/14/2022 Last Documented On 3 8:45AM ; [facility] Injection/Nerve blocks 01/14/2022 Last Documented On 3 8:45AM ; [facility] Moderate to severe pain 01/14/2022 Last Documented On 3 8:45AM ; [facility] No Pain Pump 01/14/2022 Last Documented On 3 8:45AM ; [facility] No Spinal cord stimulator 01/14/2022 Last Documented On 3 8:45AM ; [facility] Physical therapy 01/14/2022 Last Documented On 3 8:45AM ; [facility] Please list all illnesses/co nditions you have been diagnosed with: Diabetic 01/14/2022 Last Documented On 3 8:45AM ; [facility] Please list all surgeries: T onsils 73, 88,90,93, tubal 96, knee 16, 19, stint 21, carpal tunnel 12/15, elbow 11/1501/14/2022 Last Documented On 3 8:45AM ; [facility] Family History Includes: Family History addressed during this encounter Description Last Updated Maternal history of family history of is chemic heart disease 01/14/2022 Last Documented On 3 8:45AM ; [facility] Paternal history of stroke/paralysis Last Documented On 3 8:45AM ; [facility] Review of Systems Includes: Review of Systems [...] Active Last Documented On 3 8:56AM ; [facility] Encounters Encounter Provider Location Date Check-In Time Check-Out Time Diagnosis POST PROCEDURE PHONE CALL IGNACIA ORTEGA MD 03/06/2022 8:45AM 11:59PM Insurance Includes: Active Insurance Policies Plan Name Member ID Group # Subscriber Relationship Effect mounika Dates - [facility] [id number] SANDHYA ALFARO [facility] Clinical Notes Includes: Clinical Notes from this encounter No Clinical Notes Recorded
--- OUTSIDE RECORDS SUMMARY | 2024-03-03 15:27 | XMS_ITS | Clinical Summary ---
Author Organization [facility] Address [address] [place] [phone] Phone Care Team Providers Care Editor City Name Role Phone АНДРЕЙ ACEVEDO APRN Primary Care Provider [phone] Reason for Visit and Chief Complaint POST [...] On 11/26/2021 2:12PM By Emelina VARMA ; [facility] Sulfamethoxazole-Trimethoprim 800-160 MG Oral Tablet 0 11/23/2021 Provider: Diagnosis: Last Documented On 11/26/2021 2:08PM By Emelina VARMA ; [facility] Citalopram Hydrobromide 20 MG Oral Tablet 11/21/2021 Provider: Diagnosis: Last Documented On 11/26/2021 2:03PM By Emelina VARMA ; [facility] Aspirin Low Dose 81 MG Oral Tablet Delayed Release 11/21/2021 Provider: HEIDI BOBO MD Diagnosis: Last Documented On 11/26/2021 2:03PM By Emelina VARMA ; [facility] Fexofenadine HCl 180 MG Oral Tablet 11/20/2021 Provi felipe: АНДРЕЙ ACEVEDO APRN Diagnosis: Last Documented On 11/26/2021 2:04PM By Emelina VARMA ; [facility] Ezetimibe 10 MG Oral Tablet 11/20/2021 Provider: АНДРЕЙ ACEVEDO APRN Diagnosis: Last Documented On 11/26/2021 2:04PM By Emelina VARMA ; [facility] Famotidine 20 MG Oral Tablet 11/20/2021 Provider: АНДРЕЙ ACEVEDO APRN Diagnosis: Last Documented On 11/26/2021 2:04PM By Emelina VARMA ; [facility] Dexcom G6 Sensor Miscellaneous 11/19/2021 Provider: ALEISHA BUCHANAN MD Diagnosis: Last Documented On 11/26/2021 2:05PM By Emelina VARMA ; [facility] Estradiol 0.5 MG Oral Tablet 11/19/2021 Provider: Diagnosis: Last Documented On 11/26/2021 2:05PM By Emelina VARMA ; [facility] HumaLOG 100 UNIT/ML Injection Solution 11/19/2021 Pr ovider: DADA TYSON ANP Diagnosis: Last Documented On 11/26/2021 2:05PM By Emelina VARMA ; [facility] Losartan Potassium 100 MG Oral Tablet 11/19/2021 Pro vider: АНДРЕЙ ACEVEDO APRN Diagnosis: Last Documented On 11/26/2021 2:05PM By Emelina VARMA ; [facility] medroxyPROGESTERone Acetate 5 MG Oral Tablet Provider: Diagnosis: Last Documented On 11/26/2021 2:06PM By Emelina VARMA ; [facility] metFORMIN HCl 1000 MG Oral Tablet 11/19/2021 Provide r: DADA TYSON ANP Diagnosis: Last Documented On 11/26/2021 2:06PM By Emelina VARMA ; [facility] Omnipod DASH Pods (Gen 4) Miscellaneous 11/19/2021 P rovider: DADA TYSON ANP Diagnosis: Last Documented On 11/26/2021 2:06PM By Emelina VARMA ; [facility] Propranolol HCl 20 MG Oral Tablet 11/19/2021 Provide r: АНДРЕЙ ACEVEDO APRN Diagnosis: Last Documented On 11/26/2021 2:06PM By Emelina VARMA ; [facility] SUMAtriptan Succinate 50 MG Oral Tablet 11/19/2021 P rhondader: Diagnosis: Last Documented On 11/26/2021 2:07PM By Emelina VARMA ; [facility] Trulicity 3 MG/0.5ML Subcuta neous Solution Pen-injector 11/19/2021 Provider: DADA SANTOS Diagnosis: ONCE A WEEK Last Documented On 11/26/2021 2:07PM By Emelina VARMA ; [facility] Atorvastatin Calcium 80 MG Oral Tablet 11/19/2021 Pr ovider: DADA SANTOS Diagnosis: Last Documented On 11/26/2021 2:04PM By Emelina VARMA ; [facility] Clopidogrel Bisulfate 75 MG Oral Tablet 11/19/2021 Nilton amato: HEIDI BOBO MD Diagnosis: Last Documented On 11/26/2021 2:05PM By Emelina VARMA ; [facility] Medications Administered Includes: Administered Medications from this encounter No Administered Medications Recorded Results Includes: Results discussed during this encounter No Results Recorded For Specified Dates History of Present Illness Includes: History of Present Illness from this encounter No History of Present Illness Recorded Social History Description Last Updated Difficulty walking 11/26/2021 Last Documented On 1:26PM ; [facility] Smoking Status Unknown Medical History Includes: Medical History addressed during this encounter No Medical History Recorded Family History Includes: Family History addressed during this encounter No Family History Recorded Review of Systems Includes: Review of Systems [...] Active Last Documented On 3 8:56AM ; [facility] Encounters Encounter Provider Location Date Check-In Time Check-Out Time Diagnosis POST PROCEDURE PHONE CALL CHENTE SANTOS-MITESH 02/04/2022 1:26PM 11:59PM Insurance Includes: Active Insurance Policies Plan Name Member ID Group # Subscriber Relationship Effect mounika Dates [facility] [id number] SANDHYA ALFARO Se lf Clinical Notes Includes: Clinical Notes from this encounter No Clinical Notes Recorded
--- OUTSIDE RECORDS SUMMARY | 2024-03-03 15:27 | XMS_ITS ---
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 Name Role Phone АНДРЕЙ ACEVEDO APRN Primary Care Provider [phone] Plan of Treatment Referrals To Diagnosis Pain Management [address] [phone] - Spondylosis w/o myelopathy or radiculopathy, lumbar region Note: Consent for bilateral L3, L4, L5 medial branch block.Hold Plavix X7 days, no hold aspirin Last Documented On 2 11:20AM ; [facility] Pain Management [address] [phone] - Spondylosis w/o myelopathy or radiculopathy, lumbar region Note: Confirmatory Bilateral L3, L4, L5 medial branch/dorsal ramus blocks (#2 of 2) under fluroscopy.Diabetic. Hold Plavix x 7 days. Hold ASA x 3 days. NO hold NSAIDs. No PIV/Abx.F/U in 7-10 days. Last Documented On 3 3:36PM ; [facility] Pain Management [address] [phone] - Spondylosis w/o myelopathy or radiculopathy, lumbar region Note: Right L3, L4, L5 media l branch/dorsal ramus thermal RF ablation with fluorosocpy. (#1 of 2).Left L3, L4, L5 medial branch/dorsal ramus thermal RF ablation with fluorosocpy. (#2 of 2).IV Mod Sed w/ local in prone position.Hold Plavix x 7 days. Hold ASA x 3 days. NO holdNSAIDs. Diabetic. PIV/No Abx.F/U in 3-4 weeks. Last Documented On 3 3:39PM ; [facility] Education and Decision Aids were provided during visit for: Pill Count: one HYDROCODONE Last Documented On 2 2:11PM ; [facility] Assessments Includes: Assessments for all patient encounters Findings Encounter Date Chronic pain syndrome TELEHEALTH with IGNACIA ORTEGA MD 03/13/2022 Last Documented On 3 2:10PM ; [facility] Lumbar spondylosis without m yelopathy or radiculopathy TELEHEALTH with IGNACIA ORTEGA MD 03/13/2022 Last Documented On 3 2:10PM ; [facility] Myalgia TELEHEALTH with IGNACIA Mullen 03/13/2022 Last Documented On 3 2:10PM ; [facility] Sacroiliitis TELEHEALTH with IGNACIA Mullen 03/13/2022 Last Documented On 3 2:10PM ; [facility] Chronic pain syndrome TELEHEALTH with IGNACIA ORTEGA MD 02/14/2022 Last Documented On 2 12:30PM ; [facility] Lumbar spondylosis without m yelopathy or radiculopathy TELEHEALTH with IGNACIA ORTEGA MD 02/14/2022 Last Documented On 2 12:30PM ; [facility] Myalgia TELEHEALTH with IGNACIA Mullen 02/14/2022 Last Documented On 2 12:30PM ; [facility] Sacroiliitis TELEHEALTH with IGNACIA Mullen 02/14/2022 Last Documented On 2 12:30PM ; [facility] Chronic pain syndrome PAIN MANAGEMENT FO LLOW UP with CHENTE HALE ANP-BC 01/14/2022 Last Documented On 2 2:38PM ; [facility] Lumbar spondylosis without m yelopathy or radiculopathy PAIN MANAGEMENT FOLLOW UP with CHENTE HALE ANP- 01/14/2022 Last Documented On 2 2:38PM ; [facility] Myalgia PAIN MANAGEMENT FOLLOW UP with Erickson HALE ANP-BC 01/14/2022 Last Documented On 2 2:38PM ; [facility] Sacroiliitis PAIN MANAGEMENT FOLLOW UP with T ANISH PERLAS ANP-BC 01/14/2022 Last Documented On 2 2:38PM ; [facility] Chronic pain syndrome PAIN MANAGEMENT NE W CONSULT with CHENTE HALE ANP- 11/26/2021 Last Documented On 2 5:24PM ; [facility] Lumbar spondylosis without m yelopathy or radiculopathy PAIN MANAGEMENT NEW CONSULT with CHENTE HALE ANP-BC 11/26/2021 Last Documented On 2 5:24PM ; [facility] Myalgia PAIN MANAGEMENT NEW CONSULT with CHENTE HALE [facility]- 11/26/2021 Last Documented On 2 5:24PM ; [facility] Sacroiliitis PAIN MANAGEMENT NEW CONSULT with CHENTE HALE ANP-BC 11/26/2021 Last Documented On 2 5:24PM ; [facility] Instructions Includes: Instructions for all patient encounters Education and Decision Aids were provided during visit for: Pill Count: one HYDROCODONE Last Documented On 2 2:11PM ; [facility] Medical Equipment - Implanted Devices Includes: Current and historical Devices No Medical Equipment Recorded Medications Includes: Current and historical Medications Current Medications (continue as prescribed) Zolpidem Tartrate 10 MG Oral Tablet 11/26/2021 Provi felipe: Diagnosis: Last Documented On 11/26/2021 2:12PM By Emelina VARMA ; [facility] Sulfamethoxazole-Trimethoprim 800-160 MG Oral Tablet 0 11/23/2021 Provider: Diagnosis: Last Documented On 11/26/2021 2:08PM By Emelina VARMA ; [facility] Citalopram Hydrobromide 20 MG Oral Tablet 11/21/2021 Provider: Diagnosis: Last Documented On 11/26/2021 2:03PM By Emelina VARMA ; [facility] Aspirin Low Dose 81 MG Oral Tablet Delayed Release 11/21/2021 Provider: HEIDI BOBO MD Diagnosis: Last Documented On 11/26/2021 2:03PM By Emelina VARMA ; [facility] Fexofenadine HCl 180 MG Oral Tablet 11/20/2021 Provi felipe: АНДРЕЙ ACEVEDO APRN Diagnosis: Last Documented On 11/26/2021 2:04PM By Emelina VARMA ; [facility] Ezetimibe 10 MG Oral Tablet 11/20/2021 Provider: АНДРЕЙ ACEVEDO APRN Diagnosis: Last Documented On 11/26/2021 2:04PM By Emelina VARMA ; [facility] Famotidine 20 MG Oral Tablet 11/20/2021 Provider: АНДРЕЙ ACEVEDO APRN Diagnosis: Last Documented On 11/26/2021 2:04PM By Emelina VARMA ; [facility] Dexcom G6 Sensor Miscellaneous 11/19/2021 Provider: ALEISHA BUCHANAN MD Diagnosis: Last Documented On 11/26/2021 2:05PM By Emelina VARMA ; [facility] Estradiol 0.5 MG Oral Tablet 11/19/2021 Provider: Diagnosis: Last Documented On 11/26/2021 2:05PM By Emelina VARMA ; [facility] HumaLOG 100 UNIT/ML Injection Solution 11/19/2021 Pr ovider: DADA TYSON ANP Diagnosis: Last Documented On 11/26/2021 2:05PM By Emelina VARMA ; [facility] Losartan Potassium 100 MG Oral Tablet 11/19/2021 Pro vider: АНДРЕЙ ACEVEDO APRN Diagnosis: Last Documented On 11/26/2021 2:05PM By Emelina VARMA ; [facility] medroxyPROGESTERone Acetate 5 MG Oral Tablet Provider: Diagnosis: Last Documented On 11/26/2021 2:06PM By Emelina VARMA ; [facility] metFORMIN HCl 1000 MG Oral Tablet 11/19/2021 Provide r: DADA TYSON ANP Diagnosis: Last Documented On 11/26/2021 2:06PM By Emelina VARMA ; [facility] Omnipod DASH Pods (Gen 4) Miscellaneous 11/19/2021 P rovider: DADA TYSON ANP Diagnosis: Last Documented On 11/26/2021 2:06PM By Emelina VARMA ; [facility] Propranolol HCl 20 MG Oral Tablet 11/19/2021 Provide r: АНДРЕЙ ACEVEDO APRN Diagnosis: Last Documented On 11/26/2021 2:06PM By Emelina VARMA ; [facility] SUMAtriptan Succinate 50 MG Oral Tablet 11/19/2021 P rovider: Diagnosis: Last Documented On 11/26/2021 2:07PM By Emelina VARMA ; [facility] Trulicity 3 MG/0.5ML Subcuta neous Solution Pen-injector 11/19/2021 Provider: DADA TYSON ANP Diagnosis: ONCE A WEEK Last Documented On 11/26/2021 2:07PM By Emelina VARMA ; [facility] Atorvastatin Calcium 80 MG Oral Tablet 11/19/2021 Pr ovider: DADA TYSON ANP Diagnosis: Last Documented On 11/26/2021 2:04PM By Emelina VARMA ; [facility] Clopidogrel Bisulfate 75 MG Oral Tablet 11/19/2021 P rovider: HEIDI BOBO MD Diagnosis: Last Documented On 11/26/2021 2:05PM By Emelina VARMA ; [facility] Medications Administered Includes: Administered Medications in patient's chart No Administered Medications Recorded Results Includes: Results from 03/03/2023 through 03/03/2024 No Results Recorded For Specified Dates History of Present Illness History of Present Illness not supported for this document type No History of Present Illness Recorded Social History Description Last Updated Tobacco non-user 02/14/2022 Last Documented On 2 12:30PM ; [facility] No consumption of alcohol 01/14/2022 Last Documented On 2 2:38PM ; [facility] Not using drugs 01/14/2022 Last Documented On 2 2:38PM ; [facility] Difficulty walking 11/26/2021 Last Documented On 2 5:24PM ; [facility] Smoking Status Unknown Procedures and Surgical History Surgical History Last Updated No Pacemaker 01/14/2022 Last Documented On 2 2:38PM ; [facility] Medical History Includes: Medical History in patient's chart Description 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 Last Documented On 2 2:38PM ; [facility] Currently wearing eyeglasses 01/14/2022 Last Documented On 2 2:38PM ; [facility] Injection/Nerve blocks 01/14/2022 Last Documented On 2 2:38PM ; [facility] Moderate to severe pain 01/14/2022 Last Documented On 2 2:38PM ; [facility] No Pain Pump 01/14/2022 Last Documented On 2 2:38PM ; [facility] No Spinal cord stimulator 01/14/2022 Last Documented On 2 2:38PM ; [facility] Physical therapy 01/14/2022 Last Documented On 2 2:38PM ; [facility] Please list all illnesses/co nditions you have been diagnosed with: Diabetic 01/14/2022 Last Documented On 2 2:38PM ; [facility] Please list all surgeries: T onsils 73, 88,90,93, tubal 96, knee 16, 19, stint 21, carpal tunnel 12/15, elbow 11/1501/14/2022 Last Documented On 2 2:38PM ; [facility] Family History Includes: Family History in patient's chart Description Last Updated Maternal history of family history of is chemic heart disease 01/14/2022 Last Documented On 2 2:38PM ; [facility] Paternal history of stroke/paralysis Last Documented On 2 2:38PM ; [facility] Review of Systems Review of Systems not supported for this document type No Review of Systems Recorded Mental Status No Mental Status Recorded Functional Status No Functional Status Recorded Physical Exam Physical Exam not supported for this document type No Physical Exam Recorded Allergies Includes: Active, inactive, and resolved Allergies Substance Type Reaction Onset Date Resolved Date Statu s Codeine Allergy 11/26/2021 Active Last Documented On 3 8:56AM ; [facility] Insurance Includes: Active Insurance Policies Plan Name Member ID Group # Subscriber Relationship Effect mounika Dates 1 - [facility] [id number] SANDHYA ALFARO Se lf Clinical Notes Includes: Signed Clinical Notes starting from 03/15/2022 No Clinical Notes Recorded
--- OUTSIDE RECORDS SUMMARY | 2024-03-03 15:27 | XMS_ITS | Clinical Summary ---
Author Organization [facility] Address [address] [place] [address] Phone Care Team Providers Care Dough Scaler And Mixer Name Role Phone АНДРЕЙ ACEVEDO APRN Primary Care Provider [phone] Reason for Visit and Chief Complaint The Chief Complaint is: Patient is following up on bilateral L3, L4, L5 confirmatory medial branch blocks done on 02/27/22. Patient reports 95% relief from this procedure Plan of Treatment Referrals To [facility] - [address] [place] [address] - Spondylosis w/o myelopathy or radiculopathy, lumbar [...] Abx.F/U in 3-4 weeks. Last Documented On 3:39PM ; [facility] Assessments Includes: Assessments from this encounter Findings - [M46.1 - Sacroiliitis, not elsewhere classified] Sacroiliitis - Last Documented On 03/13/2022 2:10PM ; [facility] - [M47.816 - Spondylosis without myelopathy or radiculopathy, lumbar region] Lumbar spondylosis without myelopathy or radiculopathy - Last Documented On 03/13/2022 2:10PM ; [facility] - [M79.18 - Myalgia, other site] Myalgia - Last Documented On 03/13/2022 2:10PM ; [facility] - [G89.4 - Chronic pain syndrome] Chronic pain syndrome - Last Documented On 03/13/2022 2:10PM ; [facility] Medical Equipment - Implanted Devices Includes: Current Devices No Medical Equipment Recorded Medications Includes: Medications discussed during this encounter and other current Medications Current Medications (continue as prescribed) Zolpidem Tartrate 10 MG Oral Tablet 11/26/2021 Provi felipe: Diagnosis: Last Documented On 11/26/2021 2:12PM By Emelina VARMA ; [facility] Sulfamethoxazole-Trimethoprim 800-160 MG Oral Tablet 0 11/23/2021 Provider: Diagnosis: Last Documented On 11/26/2021 2:08PM By Emelina VARMA ; [facility] Citalopram Hydrobromide 20 MG Oral Tablet 11/21/2021 Provider: Diagnosis: Last Documented On 11/26/2021 2:03PM By Emelina VARMA ; [facility] Aspirin Low Dose 81 MG Oral Tablet Delayed Release 11/21/2021 Provider: HEIDI OBBO MD Diagnosis: Last Documented On 11/26/2021 2:03PM By Emelina VARMA ; [facility] Fexofenadine HCl 180 MG Oral Tablet 11/20/2021 [...] Oral Tablet 11/19/2021 Pro vider: АНДРЕЙ ACEVEDO INVENTORY CONTROL/SHIPPING RECEIVING Diagnosis: Last Documented On 11/26/2021 2:05PM By [...] By Emelina VARMA ; [facility] Propranolol HCl 20 MG Oral Tablet 11/19/2021 Provide r: АНДРЕЙ ACEVEDO APRN Diagnosis: Last Documented On 11/26/2021 2:06PM By Emelina VARMA ; [facility] SUMAtriptan Succinate 50 MG Oral Tablet 11/19/2021 P rovider: Diagnosis: Last Documented On 11/26/2021 2:07PM By Emelina VARMA ; [facility] Trulicity 3 MG/0.5ML Subcuta neous Solution Pen-injector 11/19/2021 Provider: DADA TYSON ANP Diagnosis: ONCE A WEEK Last Documented On 11/26/2021 2:07PM By Emelina VARMA ; [facility] Atorvastatin Calcium 80 MG Oral Tablet 11/19/2021 Pr ovider: DADA SANTOS Diagnosis: Last Documented On 11/26/2021 2:04PM By Emelina VARMA ; [facility] Clopidogrel Bisulfate 75 MG Oral Tablet 11/19/2021 N[place] amato: HEIDI BOBO MD Diagnosis: Last Documented On 11/26/2021 2:05PM By Emelina VARMA ; [facility] Medications Administered Includes: Administered Medications from this encounter No Administered Medications Recorded Vital Signs Includes: Vital Signs from this encounter Vital Name 03/13/2022 08:54A Respiration Rate (breaths/min) 18 Temp-Oral (F) 98 Height (in) 65 Weight (lb) 214 Body Mass Index 35.6 Body Surface Area 2 Pain Level 5 Note: ALL VITALS GIVEN SANDRA BALLY BY PATIENT Last Documented: On 03/13/2022 8:56AM ; [facility] Results Includes: Results discussed during [...] - Pain aggravated bending Discussion: Patient returns in follow-up after undergoing a 2nd set of confirmatory medial branch blocks bilaterally at L3, L4, L5. She describes 80 to 90% improvement in her typical pain with ongoing benefit to some degree which is unexpected. She does however indicate that her pain will return to baseline with activity rating a 6 - 7/10 on occasion with extended standing walking or lifting. For this reason she would like to move forward with thermal radiofrequency ablation his previous indicated. As her pain is greatest on the right side, she like to proceed with the right side 1st. Will follow-up with left sided 1 to 2 weeks. We discussed the use of sedation which would require her to be NPO after midnight except for her morning medications with small sip of water. She does have an insulin problem to close to monitor her blood sugars during this period. She left have a driver trainer the day the procedure as well. She will need to hold her Plavix for 7 days prior to the ablation procedure. Appropriate wound care and postoperative activity restrictions were discussed with the patient as well who expressed an understanding. Risks, benefits and alternatives the procedure were discussed in detail the patient who expressed explicit understanding and consent to proceed. All questions were elicited, asked and answered the best of our ability and to her satisfaction today. [place] prescription monitoring database was reviewed and found to be appropriate. PRIOR VISIT (02/14/22): Patient returns today in follow-up after undergoing [...] expressed explicit understanding and consent to proceed. [place] prescription monitoring database was reviewed and found [...] worsened. She was seen pain management at [facility] 4-5 months and reports a planned [...] Tobacco non-user 02/14/2022 Last Documented On 3 8:52AM ; [facility] No consumption of alcohol 01/14/2022 Last Documented On 3 8:52AM ; [facility] Not using drugs 01/14/2022 Last Documented On 3 8:52AM ; [facility] Difficulty walking 11/26/2021 Last Documented On 3 8:52AM ; [facility] Smoking Status Unknown Procedures and Surgical History Includes: Procedures from this encounter Procedures Code Diagnosis Performing Provider Service L ocation Service Date use of tobacco assessment performed 1000F Last Documented On 3 9:05AM ; [facility] review of medications documented 1160F Last Documented On 3 9:05AM ; [facility] assessment of suicide risk performed Last Documented On 3 8:54AM ; [facility] screening for adult depression: impressi on and score four Last Documented On 3 8:54AM ; [facility] screening for adult depression: impressi on and score five Last Documented On 3 2:01PM ; [facility] standardized depression screening: posit mounika for symptoms Last Documented On 3 8:54AM ; [facility] Clinical summary provided to patient Last Documented On 3 9:05AM ; [facility] SOAPP-R: total score 5 Last Documented On 3 9:05AM ; [facility] Surgical History Last Updated No Pacemaker 01/14/2022 Last Documented On 3 8:52AM ; [facility] Medical History Includes: Medical History addressed during this encounter Description Last Updated acute care physical therapist 01/14/2022 Last Documented On 3 8:52AM ; [facility] Currently wearing eyeglasses 01/14/2022 Last Documented On 3 8:52AM ; [facility] Injection/Nerve blocks 01/14/2022 Last Documented On 3 8:52AM ; [facility] Moderate to severe pain 01/14/2022 Last Documented On 3 8:52AM ; [facility] No Pain Pump 01/14/2022 Last Documented On 3 8:52AM ; [facility] No Spinal cord stimulator 01/14/2022 Last Documented On 3 8:52AM ; [facility] Physical therapy 01/14/2022 Last Documented On 3 8:52AM ; [facility] Please list all illnesses/co nditions you have been diagnosed with: Diabetic 01/14/2022 Last Documented On 3 8:52AM ; [facility] Please list all surgeries: T onsils 73, 88,90,93, tubal 96, knee 16, 19, stint 21, carpal tunnel 12/15, elbow 11/1501/14/2022 Last Documented On 3 8:52AM ; [facility] Family History Includes: Family History addressed during this encounter Description Last Updated Maternal history of family history of is chemic heart disease 01/14/2022 Last Documented On 3 8:52AM ; [facility] Paternal history of stroke/paralysis Last Documented On 3 8:52AM ; [facility] Review of Systems Includes: Review of Systems [...] Active Last Documented On 3 8:56AM ; [facility] Encounters Encounter Provider Location Date Check-In Time Check-Out Time Diagnosis [facility] [facility]TE[facility] MD [facility] 03/13/19 23 8:50AM 9:04AM Chronic Pain Syndrome,Sacroili itis,Spondylosis Without Myelopathy Or Radiculopathy Lumbar Region,Myalgia , Other Site (M79.18) Insurance Includes: Active Insurance Policies Plan Name Member ID Group # Subscriber Relationship Effect mounika Dates - [facility] [id number] SANDHYA [id number] Clinical Notes Includes: Clinical Notes from this encounter No Clinical Notes Recorded
--- OUTSIDE RECORDS SUMMARY | 2024-03-03 15:28 | XMS_ITS | Continuity of Care Document ---
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 Plan of Treatment Reminders Order Date Submit Date Provider Last Modified By Organization Details Last Modified Time Details Appointments None recorded. Lab None recorded. Referral None recorded. Procedures None recorded. Surgeries None recorded. Imaging US, pelvis, transabdo reena + transvagi nal 2023 024 [facility] ([facility]), [address] [place], [address], 09:15:20 Medication Orders None recorded. Patient TargetsNo targets recorded. Patient Instructions Encounter Date Encounter Id Patient Instructions Last Modified By Organization Details Last Modified Time 02/16/2024 [id number] Attending Physician Attestation I did not personally see or examine the patient with the resident. I was physically present to provide indirect supervision through entire encounter. I have reviewed the documentation and agree with the history, physical findings, work-up, and medical decision making as recorded. Avril Ceja MD mmetias Not available 02/16/2024 11:35:21 Reason for Referral None Reported. Problems Name Problem SNOMED Code Status Onset Date Resolution Date Notes Provider Name and Address Organization Details Recorded Time Uncontro lled type 2 diabetes mellitus 658206675 Active 2017 Was seeing chiki Galarza to Dr. Mcginnis in [place]. ANDREW KI, PA-C Attn: Accounting ,[address], [place], [address] , [place] - [facility] 4 11:07:38 Tear of meniscus of knee 062458135 Active 2017 Not Available [facility] 1 01:53:19 Carpal tunnel syndrome 91278752 Completed 201707/06/2019 ERA PENA Attn: Accounting ,[address], [place], [address] , [place] - [facility] 0 09:27:53 Nicotine dependen ce 68908763 Active 2017 Not Available [facility] 1 01:53:19 Gastroes ophageal reflux disease 789237535 Active 2017 Not Available [facility] 1 01:53:19 Mixed anxiety and depressi ve disorder 699407540 Active 2017 Not Available [facility] 1 01:53:19 Disorder of lipid metaboli sm 186101122 Active 2017 Lipids 07/27/2019 : tri elevated and HDL low Not Available [facility] 1 01:53:19 Allergic rhinitis 58193961 Active 2017 Not Available [facility] 1 01:53:19 Trichomo nal vaginiti s 046535590 Completed 201709/15/2018 ERA PENA Attn: Accounting ,[address], [place], [address] , [place] - [facility] 9 10:47:48 Bacteria l vaginosi s 392953731 Completed 201709/15/2018 ERA PENA Attn: Accounting ,[address] [place], [address] , [place] [facility] 9 10:47:51 Noncompl iance with treatmen t 8499451 Active 2017 Not Available [facility] 1 01:53:19 Serum creatini ne above referenc e range 085648815 Completed 201707/28/2019 ERA PENA Attn: Accounting ,[address] [facility], [place], [address] , [place] [facility] 0 11:40:30 Body mass index 30+ - obesity 639363567 Active 2017 Not Available [facility] 01:53:19 Candidia sis of skin 54649299 Active 2018 Not Available [facility] 1 01:53:19 Peripher al arterial occlusiv e disease 984432149 Active 2018 40-50% blockage of left proximal femoral artery and 80-90% blockage of right femoral artery. Experien cing claudica tion. AIF with interven tion (right leg) performe d by Dr. Dixon, stent of R SFA complete d 12/03/18 . Restenos is of R SFA atery, successf ul laser atherect ambrosio and stenting of R SFA (NAIMA stent) on 0. Not Available [facility] 01:53:19 Liver enzymes level above referenc e range 268525471 Active 2018 Not Available [facility] 01:53:19 Microalb uminuria 926713953 Active 2018 Not Available [facility] 01:53:19 Systolic murmur 73871088 Active 2018 2/6, loudest over the aortic area Not Available [facility] 01:53:19 Acquired trigger finger 7388555 Active 2019 R 2nd and 4th digits and L 4th digit, rheumato logy offered injectio ns but patient denied Not Available [facility] 01:53:19 Carpal tunnel syndrome 48061785 Active 2019 Experien cing numbness /pain/ti ngling in hands Not Available [facility] 01:53:19 Osteoart hritis of joint of left hand 54270675961 9102 Active 2019 Xray of L hand showed mild degenera tive changes at the 5th digit DIP joint Not Available [facility] 01:53:19 Vitamin D below referenc e range 028518756 Active 2022 ERA PENA Attn: Accounting ,[address], [place], [address] , [place] [facility] 3 13:02:44 Chronic kidney disease stage 2 338672667 Active 2023 ANDREW EMERSON PA-C Attn: Accounting ,[address], [place], [address] , [place] [facility] 4 11:07:04 [facility] 97448499 Active 2023 ANDREW EMERSON PA-C Attn: Accounting ,[address], [place], [address] , [place] [facility] 4 11:08:27 Problem Notes None recorded. Procedures Surgical History Date Name Laterality Status Provider Name and Address Organization Details Recorded Time 12/03/19 23 Date of Last Pap Smear completed Lamar Daley [place] [facility] 02/12/2024 12:47:40 09/25/19 23 Most Recent Mammogram completed AYO Bhandari - [facility] 12/02/2022 09:51:50 09/25/19 23 Date of Last Mammogram completed AYO Bhandari - [facility] 12/02/2022 09:51:31 12/06/19 22 Endometrial Biopsy completed ERA STANLEY Attn: Accounting,[address] [place], [address], [place] [facility] 12/05/2021 14:54:00 04/25/19 21 Knee Surgery completed [place] Schultz [place] [facility] 02/20/2021 14:43:22 03/13/19 19 Depo Injection completed Mercy Bowles [place] [facility] 03/13/2018 17:51:14 12/13/19 18 Depo Injection completed Mercy Bowles [place] [facility] 12/12/2017 10:57:13 08/05/19 18 Endometrial Biopsy completed Lisa Bailey MD Attn: Accounting,[address] [place], [address], [facility] [place] 08/04/2017 12:33:58 08/28/18 93 delivery completed Mercy AYO Bowles [facility] 12/12/2017 10:55:26 06/25/18 90 delivery completed Mercy AYO Bowles [facility] 12/12/2017 10:55:05 02/19/19 88 Caesarean Section completed Mercy AYO Bowles [facility] 12/12/2017 10:55:37 Tonsillectomy completed Vanesa MclainAYO schwarz [facility] 03/14/2017 13:56:44 Tubal Ligation completed Vanesa Adhikari MA [facility] 03/14/2017 13:56:58 Knee Surgery completed Dewayne Cedillo MD Attn: Accounting, [place], [address], [facility] 03/14/2017 14:11:21 Endometrial Ablation completed [place] Saenz MA [facility] 05/05/2017 12:26:09 endoscopy completed Deonna Townsend MA [facility] 04/29/2023 12:05:11 Imaging Results None recorded. Procedure Notes None recorded. Medical Equipment None Reported. Allergies Allergen ID Allergen Name Allergen Category Reaction Reaction Severity Criticality Documentation Date Start Date Code Code System Note Provider Name and Address Organization Details Recorded Time 898998 codeine medicatio n vomiting moderate Not available 03/14/2017 2670 RxNorm Vanesa Adhikari [place] null, [place] [facility] 13:55:44 104817 Non-stero idal anti-infl ammatory agent (product) medicatio n Not available Not available Not available 12/10/2017 69720 005 SNOMED due to kidne ysUpd ate: Pt repor ts that there is no effec t. in c=[place] advis ed pt to stay away from NSAID S as she was prot ein spill ing at the time. State s advis ed that she shoul d only take them occas ional ly... .. updat ed 06/15 . GREY CASTRO, YONATAN Attn: Accountin g,[address], [place], [address], [facility] 9 15:50:19 Medications Name Sig Start Date Stop Date Status Note LastModified by Organization Details LastModified Time Prescript ion - Prior Authoriza timagen Request 09/25 completed Not Available Not Available Not Available multivita min tablet Take 1 tablet every day by oral route as directed for 30 days. 2023 active Not Available Not Available Not Avai lable cyclobenz aprine 10 mg tablet Take 1 tablet(s ) every day by oral route at bedtime for 30 days. active Not Available Not Available No t Available amoxicill in 500 mg capsule TAKE 1 CAPSULE BY MOUTH EVERY 8 HOURS active Not Available Not Available No t Available atorvasta tin 40 mg tablet TAKE ONE TABLET BY MOUTH ONCE DAILY 09/25 completed Not Available Not Available Not Available methocarb abdi 500 mg tablet TAKE 1 TABLET BY MOUTH EVERY 6 HOURS NEEDED active Not Available Not Available No t Available buspirone 5 mg tablet active Not Available Not Available Not Available atorvasta tin 80 mg tablet active Not Available Not Available Not Available clindamyc in HCl 300 mg capsule Take 1 capsule every 6 hours by oral route. 07/05 completed Not Available Not Available Not Available citalopra m 40 mg tablet Take 1 tablet every day by oral route. 06/15 completed Not Available Not Available Not Available cetirizin e 10 mg tablet TAKE 1 TABLET BY MOUTH EVERY DAY 02/20 completed Not Available Not Available Not Available azithromy chino 250 mg tablet TAKE 2 TABLETS (500 MG) BY ORAL ROUTE ONCE DAILY FOR 1 DAY THEN 1 TABLET (250 MG) BY ORAL ROUTE ONCE DAILY FOR 4 DAYS 12/11 completed Not Available Not Available Not Available tizanidin e 4 mg tablet 09/12 completed Not Available Not Available Not Available fluconazo le 150 mg tablet Take 1 tablet by oral route. 09/15 completed Not Available Not Available Not Available citalopra m 10 mg tablet 02/20 completed Not Available Not Available Not Available hydrocodo ne 5 mg-acetam inophen 325 mg tablet Take 1 tablet every 6 hours by oral route as needed. 09/12 completed Not Available Not Available Not Available naltrexon e 50 mg tablet 03/07 completed Not Available Not Available Not Available venlafaxi ne 25 mg tablet 12/10 completed Not Available Not Available Not Available lisinopri l 20 mg tablet TAKE 1 TABLET BY MOUTH DAILY 03/07 completed Not Available Not Available Not Available prednison e 20 mg tablet TAKE 2 TABLETS BY MOUTH EVERY DAY FOR 5 DAYS active Not Available Not Available No t Available medroxypr ogesteron e 5 mg tablet TAKE 1 TABLET BY MOUTH DAILY 09/12 completed Not Available Not Available Not Available terconazo le 0.8 % vaginal cream Insert 1 applicat orful every day by vaginal route at bedtime for 3 days. active Not Available Not Available No t Available Lantus U-100 Insulin 100 unit/mL subcutane ous solution 43 units HS 09/15 completed Not Available Not Available Not Available sumatript an 50 mg tablet active Not Available Not Available Not Available Nexium 40 mg capsule,d elayed release Take 1 capsule every day by oral route around the clock for 90 days. 04/25 completed Not Available Not Available Not Available metronida zole 500 mg tablet Take 1 tablet twice a day by oral route for 7 days. 07/23 completed Not Available Not Available Not Available clopidogr el 75 mg tablet active Not Available Not Available Not Available fexofenad ine 180 mg tablet active Not Available Not Available No t Available sulfameth oxazole 800 mg-trimet hoprim 160 mg tablet 12/28 completed Not Available Not Available Not Available aspirin 81 mg tablet,de layed release active Not Available Not Available Not Available tramadol 50 mg tablet Take 1 tablet every 8 hours by oral route as needed for 5 days. active Not Available Not Available No t Available venlafaxi ne 100 mg tablet Take 1 tablet every day by oral route as directed for 30 days. 12/10 completed Not Available Not Available Not Available bupropion HCl 100 mg tablet 03/07 completed Not Available Not Available Not Available amoxicill in 875 mg tablet Take 1 tablet every 12 hours by oral route around the clock for 5 days. 03/09 completed Not Available Not Available Not Available citalopra m 20 mg tablet active Not Available Not Available Not Available famotidin e 20 mg tablet TAKE 1 TABLET BY MOUTH TWICE A DAY active Not Available Not Available No t Available Humalog U-100 Insulin 100 unit/mL subcutane ous solution active Not Available Not Available Not Available Compound W 17 % topical liquid Apply small amount on affected areas twice a day x 3 weeks 2023 active Not Available Not Available Not Avai lable amitripty line 10 mg tablet Take 1 tablet every day by oral route. 12/10 completed Not Available Not Available Not Available meclizine 25 mg tablet Take 1 tablet 3 times a day by oral route as needed for 14 days. 09/12 completed Not Available Not Available Not Available baclofen 10 mg tablet TAKE 1 TABLET BY MOUTH 3 TIMES A DAY NEEDED FOR MUSCLE SPASMS FOR 3 DAYS active Not Available Not Available No t Available cephalexi n 500 mg capsule TAKE 1 CAPSULE BY MOUTH THREE TIMES DAILY FOR 7 DAYS 09/25 completed Not Available Not Available Not Available pantopraz ole 40 mg tablet,de layed release active Not Available Not Available Not Available metformin 1,000 mg tablet active Not Available Not Available Not Available nystatin 100,000 unit/gram topical cream APPLY TO THE AFFECTED AREA(S) BY TOPICAL ROUTE 2 TIMES PER DAY active Not Available Not Available No t Available ranitidin e 150 mg tablet Take 1 tablet twice a day by oral route as directed for 90 days. 07/08 completed Not Available Not Available Not Available lisinopri l 10 mg tablet TAKE 1 TABLET BY MOUTH EVERY DAY 11/13 completed Not Available Not Available Not Available losartan 25 mg tablet 12/28 completed Not Available Not Available Not Available nicotine 21 mg/24 hr daily transderm al patch Apply 1 patch every day by transder mal route for 14 days. 02/20 completed Not Available Not Available Not Available hydrochlo rothiazid e 12.5 mg capsule TAKE 1 CAPSULE BY MOUTH DAILY 12/28 completed Not Available Not Available Not Available venlafaxi ne 50 mg tablet 12/10 completed Not Available Not Available Not Available docusate sodium 100 mg capsule TAKE 1 CAPSULE BY MOUTH TWICE A DAY active Not Available Not Available No t Available buspirone 7.5 mg tablet active Not Available Not Available Not Available Banophen 25 mg capsule 09/12 completed Not Available Not Available Not Available insulin syringe U-100 with needle 1 mL 31 gauge x 5/16 USE TWICE A DAY 12/28 completed Not Available Not Available Not Available hydroxyzi ne HCl 25 mg tablet 09/12 completed Not Available Not Available Not Available alcohol swabs active Not Available Not Available Not Available zolpidem 5 mg tablet 06/15 completed Not Available Not Available Not Available norethind edenilson acetate 5 mg tablet Take by oral route for 28 days. 10/10 completed Not Available Not Available Not Available mirtazapi ne 15 mg tablet 09/15 completed Not Available Not Available Not Available estradiol 0.5 mg tablet TAKE 1 TABLET BY MOUTH DAILY 09/12 completed Not Available Not Available Not Available Novolog U-100 Insulin aspart 100 unit/mL subcutane ous solution 12/28 completed Not Available Not Available Not Available azelastin e 137 mcg (0.1 %) nasal spray Saline 2 sprays twice a day by intranas al route as needed for 30 days. active Not Available Not Available No t Available hydrocort isone 0.5 % topical ointment APPLY A THIN LAYER TO THE AFFECTED AREA(S) BY TOPICAL ROUTE 2 TIMES PER DAY X 7 DAYS 02/22 completed Not Available Not Available Not Available zolpidem 10 mg tablet Take 1 tablet every day by oral route at bedtime. 12/28 completed Not Available Not Available Not Available methylpre dnisolone 4 mg tablets in a dose pack Take 1 dose pk by oral route. 03/07 completed Not Available Not Available Not Available propranol ol 20 mg tablet active Not Available Not Available Not Available ondansetr on 4 mg disintegr ating tablet Take 2 tablets every 12 hours by oral route as needed for 14 days. active Not Available Not Available No t Available losartan 100 mg tablet 09/12 completed Not Available Not Available Not Available fluticaso ne propionat e 50 mcg/actua tion nasal spray,bridget pension Saline 2 sprays every day by intranas al route around the clock for 30 days. 12/28 completed Not Available Not Available Not Available metformin ER 500 mg tablet,ex tended release 24 hr Take 4 tablets every day by oral route for 30 days. 06/15 completed Not Available Not Available Not Available medroxypr ogesteron e 150 mg/mL intramusc ular suspensio n in office med provided 07/23 completed Not Available Not Available Not Available Hibiclens 4 % topical liquid Apply 1 applicat ion every day by topical route as directed . 02/22 completed Not Available Not Available Not Available diazepam 5 mg tablet 12/28 completed Not Available Not Available Not Available amoxicill in 875 mg-potass ium clavulana te 125 mg tablet Take 1 tablet every 12 hours by oral route with meals for 7 days. 02/26 completed Not Available Not Available Not Available oxycodone 5 mg tablet TAKE 1 TABLET BY MOUTH EVERY 8 HOURS NEEDED FOR PAIN. active Not Available Not Available No t Available ezetimibe 10 mg tablet Take 1 tablet every day by oral route. active Not Available Not Available No t Available nicotine (polacril ex) 4 mg buccal lozenge 12/28 completed Not Available Not Available Not Available cyclobenz aprine 5 mg tablet Take 1 tablet 3 times a day by oral route as directed for 14 days. 05/13 completed Not Available Not Available Not Available nitrofura ntoin monohydra te/macroc rystals 100 mg capsule Take 1 capsule every 12 hours by oral route as directed for 5 days. 01/24 completed Not Available Not Available Not Available duloxetin e 20 mg capsule,d elayed release 12/10 completed Not Available Not Available Not Available duloxetin e 30 mg capsule,d elayed release 03/07 completed Not Available Not Available Not Available Nyamyc 100,000 unit/gram topical powder active Not Available Not Available Not Available losartan 100 mg-hydroc hlorothia zide 12.5 mg tablet active Not Available Not Available No t Available metformin ER 500 mg 24 hr tablet,ex tended release (gastric retention ) Take 4 tablets every day by oral route. 06/25 completed Not Available Not Available Not Available Apidra U-100 Insulin 100 unit/mL subcutane ous solution Sliding scale 1:5 carb ratio 09/15 completed Not Available Not Available Not Available Apidra U-100 Insulin As per SS with meals 09/25 completed Not Available Not Available Not Available cholecalc iferol (vitamin D3) 25 mcg (1,000 unit) tablet Take 1 tablet(s ) every day by oral route as directed for 30 days. active Not Available Not Available No t Available Januvia 100 mg tablet 12/10 completed Not Available Not Available Not Available calcium 600 mg (as carbonate )-vitamin D3 10 mcg (400 unit) tablet Take 1 tablet twice a day by oral route as directed for 30 days. 09/12 completed Not Available Not Available Not Available Lantus Solostar U-100 Insulin 100 unit/mL (3 mL) subcutane ous pen Inject 43 units every day by subcutan eous route as directed for 30 days. active Not Available Not Available No t Available OneTouch Verio test strips active Not Available Not Available Not Available Chantix Continuin g Month Box 1 mg tablet Take 1 tablet every day by oral route as directed for 56 days. 07/05 completed Not Available Not Available Not Available Chantix Starting Month Box 0.5 mg (11)-1 mg (42) tablets in dose pack Take 1 startr pk by oral route. 02/20 completed Not Available Not Available Not Available Advocate Lancet 30 gauge 09/15 completed Not Available Not Available Not Available Victoza 3-Kunal 0.6 mg/0.1 mL (18 mg/3 mL) subcutane ous pen injector active Not Available Not Available Not Available Tanzeum 50 mg/0.5 mL subcutane ous pen injector INJECT ONE SYRINGE SUBCUTAN EOUSLY ONCE A WEEK DIRECTED 04/25 completed Not Available Not Available Not Available Nexium 24HR 40 mg po daily 02/18 completed Not Available Not Available Not Available Jardiance 10 mg tablet Take 1 tablet every day by oral route as directed for 90 days. 01/24 completed In STUDY currentl y so unsure if taking that or placebo Not Available Not Available Not Available Jardiance 25 mg tablet active Not Available Not Available Not Available Trulicity 1.5 mg/0.5 mL subcutane ous pen injector 02/20 completed Not Available Not Available Not Available Flonase Allergy Relief 04/25 completed Not Available Not Available Not Available OneTouch Verio Flex Meter active Not Available Not Available Not Available TRUEplus Pen Needle 32 gauge x 5/32 active Not Available Not Available Not Available Ozempic 1 mg/dose (2 mg/1.5 mL) subcutane ous pen injector 03/07 completed Not Available Not Available Not Available Ozempic 0.25 mg or 0.5 mg (2 mg/1.5 mL) subcutane ous pen injector 03/07 completed Not Available Not Available Not Available OneTouch Ultra Blue Test Strip active Not Available Not Available Not Available Dexcom G6 Transmitt er device USE TO TEST BLOOD SUGAR TWICE A DAY active Not Available Not Available No t Available Fluzone Quad (P F) 60 mcg(15 mcgx4)/0. 5 mL intramusc ular syringe 01/28 completed Not Available Not Available Not Available Omnipod Dash Pods (Gen 4) subcutane ous cartridge CHANGE OMNIPOD POD EVERY 48 HOURS active Not Available Not Available No t Available OneTouch Delica Plus Lancet 33 gauge active Not Available Not Available Not Available Fluzone Quad (PF) 60 mcg (15 mcg x 4)/0.5 mL IM syringe 02/22 completed Not Available Not Available Not Available Tab-A-Vit e 400 mcg tablet active Not Available Not Available Not Available Trulicity 3 mg/0.5 mL subcutane ous pen injector 09/12 completed Not Available Not Available Not Available Trulicity 4.5 mg/0.5 mL subcutane ous pen injector active Not Available Not Available Not Available Ozempic 1 mg/dose (4 mg/3 mL) subcutane ous pen injector 12/28 completed Not Available Not Available Not Available Mounjaro 7.5 mg/0.5 mL subcutane ous pen injector active Not Available Not Available Not Available Mounjaro 5 mg/0.5 mL subcutane ous pen injector active Not Available Not Available Not Available Mounjaro 10 mg/0.5 mL subcutane ous pen injector active Not Available Not Available Not Available Mounjaro 2.5 mg/0.5 mL subcutane ous pen injector active Not Available Not Available Not Available Dexcom G7 Sensor device USE TO TEST BLOOD SUGAR DIRECTED active Not Available Not Available No t Available Vitals Date Recorded Body height Body mass index (BMI) Body weight Provider Name and Address Organization Details Last Updated DateTime 02/16/2024 164.47 cm 33.4 kg/m2 55155.88 g Lamar Daley [place] 02/16/2024 10:38:29 Social History Question Answer Notes LastModified by Organizat ion Details LastModified Time Tobacco Smoking Status Former Smoker Quit 2 AYO Bhandari[place] - [facility] 02/26/2023 11:05:26 Do You Have An Advance Directive? No Information not available 05/05/2017 What Is Your Level Of Alcohol Consumption? Occasional Information not available 04/15/2017 Is Blood Transfusion Acceptable In An Emergency? Yes Information not available 05/05/2017 What Is Your Level Of Caffeine Consumption? Moderate Information not available 05/05/2017 How Much Tobacco Do You Chew? None Information not available 05/05/2017 Are You Currently Employed? No Information not available 05/05/2017 What Type Of Diet Are You Following? REGULAR Information not available 05/05/2017 Which Illicit Or Recreational Drugs Have You Used? None Information not available 04/15/2017 Do You Or Have You Ever Used E-cigarettes Or Vape? Current User Of Electronic Cigarettes Information not available 12/02/2022 Education 12 Information no t available 05/05/2017 What Is Your Occupation? [employer] Information not available 03/07/2020 Live Alone Or With Others? With Others Information not available 05/05/2017 What Was The Date Of Your Most Recent Tobacco Screening? 02/16/2024 Information not available 02/16/2024 How Many Children Do You Have? 2 Information not available 05/05/2017 Performs Monthly Self-breast Exam? No Information not available 05/05/2017 Do You Use Protection During Sex? No [email or web address] Information not available 12/12/2017 Difficulty Reading? Yes Information not available 04/15/2017 What Is Your Relationship Status? Information not available 05/05/2017 Seat Belts Used Routinely Yes Information not available 05/05/2017 Are You Sexually Active? No Information not available 05/05/2017 Do You Have Smoke And Carbon Monoxide Detectors In Your Home? Yes Information not available 12/05/2021 At What Age Did You Start Smoking Tobacco? 25 Information not available 05/05/2017 Are You Passively Exposed To Smoke? Yes Information not available 12/05/2021 Do You Or Have You Ever Used Smokeless Tobacco? Never Used Smokeless Tobacco Information not available 03/07/2020 How Much Tobacco Do You Smoke? No Information not available 12/02/2022 General Stress Level Low Information not available 2017 Do You Use Any Illicit Or Recreational Drugs? No Information not available 12/05/2021 Do You Use Sunscreen Routinely? No Information not available 05/05/2017 Has Tobacco Cessation Counseling Been Provided? Yes Information not available 02/16/2024 On What Date Was Tobacco Cessation Counseling Provided? 02/16/2024 Information not available 02/16/2024 How Many Years Have You Smoked Tobacco? 30 [email or web address] Information not available 03/14/2017 Difficulty Watching TV? Yes Information not available 04/15/2017 Do You Or Have You Ever Used Any Other Forms Of Tobacco Or Nicotine? No [email or web address] Information not available 09/12/2022 How Many Years Have You Used E-cigarettes Or Vape? 1 Information not available 12/02/2022 Sex: Unknown Functional Status Question Answer Note LastModified by Organizat ion Details LastModified Time Difficulty driving at night? Yes wear glasses Information not available 04/15/2017 What is your exercise level? Occasional Information not available 05/05/2017 Mental Status None recorded. Family History Relationship Description Onset Age of this Age Resolved Age Notes LastModified by Organization Details LastModified Time Father Diabetes mellitus [email or web address] Not available 2017 13:56:04 Mother Hypertensive disorder Not available 2017 12:23:45 Mother Family history of malignant neoplasm [email or web address] Not available 2017 15:48:50 Medical History Condition Response Coronary Artery Disease N Other N Atrial Fibrillation N High Blood Pressure Y Thyroid Problems N Kidney or Bladder Problems Y GI Problems N Depression Y COPD N Blood Clots N Acne N Skin Problems N Eating Disorder N Anemia N Anesthesia Complications N Heart Attack (CA) N Headaches/Migraines N Anxiety Disorder Y Diabetes Y Ovarian Cancer N Muscle, Joint, or Bone Problems Y Seizures/Epilepsy N Infertility N Polyps N Acid Reflux (GERD) Y Cancer N Stroke N Abuse/Domestic Violence N Asthma N Allergies N Endometriosis N High Cholesterol Y Hepatitis N Liver Disease N Heart Disease N Headaches N Pre-Eclampsia N Heart Failure N Osteoporosis N Gynecological History Statement/Question Response Abnormal Pap N Date of Last Mammogram 09/24/2022 Date of LMP On BCP's at Conception? N STIs/STDs Y HPV Vaccine N Most Recent Mammogram 09/24/2022 Age at Menarche 11 Current Control Method Tubal Ligat ion Age at First Child 22 If Post Menopausal, Age at Menopause 52 Sexually Active? N Menses Monthly N Date of Last Pap Smear 12/02/2022 Sexual Problems? N LMP Unknown Desired Control Method None Obstetrics History GPAL:G 3 P 2 0 1 2 Type Value Multiple Births 0 Full Term 2 Induced 0 Spontaneous 1 Premature 0 Living 2 Ectopics 0 Total 3 Immunizations Vaccine Type Date Status Note Provider Nam e and Address Organization Details Recorded Time Influenza, split virus, quadrivalent, preservative 9 completed Not Available [facility] 12/28/2020 01:53:20 COVID-19, mRNA, LNP-S, PF, 100 mcg/0.5mL dose or 50 mcg/0.25mL dose 1 completed Not Available [facility] 12/28/2020 01:53:20 COVID-19, mRNA, LNP-S, PF, 100 mcg/0.5mL dose or 50 mcg/0.25mL dose 1 completed Not Available [facility] 12/28/2020 01:53:20 COVID-19, mRNA, LNP-S, PF, 100 mcg/0.5mL dose or 50 mcg/0.25mL dose 1 completed AYO Bhandari, [place] - [facility] 02/20/2021 14:40:11 Influenza, split virus, quadrivalent, preservative 1 completed Cheyenne Schultz MA null, [place] - [facility] 02/20/2021 14:40:28 Influenza, split virus, quadrivalent, preservative 7 completed Not Available [facility] 12/28/2020 01:53:20 Tdap 5 completed Not Available [facility] 12/28/2020 01:53:20 pneumococcal polysaccharide PPV23 0 completed Not Available [facility] 12/28/2020 01:53:20 Influenza, split virus, quadrivalent, preservative 8 completed Not Available [facility] 12/28/2020 01:53:20 Past Encounters Encounter ID Performer Location Encounter Start Date Encounter Closed Date Diagnosis/Indication Diagnosis SNOMED-CT Code Diagnosis ICD10 Code Diagnosis Note [id number] AVRIL CEJA MD [facility] ([facility]) [address] [place] [phone] 02/16/2024 10:03:40 02/26/2024 15:30:17 Abnormal uterine bleeding [id number] 9100 N93.9 Postmenopa usal female presenting with AUB, no history of executive personal assistant cancers will order pelvic ultrasound at this time and follow-up on results can consider EMB at that time Health Concerns Section Related Observation LastModified by Organization Detai ls LastModified Time None Recorded Concern Status LastModified by Organization Details LastModified Time None Recorded Payers Encounter Date Sequence Insurance Name Policy Number Policy Arechiga Covered Member ID Arechiga Member ID Guarantor Name 02/16/2024 1 [facility] ON OR AFTER 08/24/20 (MEDICAID REPLACEMENT - HMO) Sandy Lopez [id number] Sandy Lopez Notes Date Note Type Note Provider Name and Address Organization Details Recorded Time 02/16/2024 text/html 58 menopausal woman here with c/o of bleeding for the last 8 days. Iniatally bright red but now dark red, is having some cramping, has had an episodes of bleeding since being menopausal that was worked up and negative for any pathology and self-resolved without intervention.Usman es any sick symptoms such as fever, no discharge, denies any trauma. AVRIL CEJA MD Attn: [address]ing,[address] [place], [address], [facility] 02/19/2024 23:03:46 OBGyn Episode No OBEpisode recorded.
--- OUTSIDE RECORDS SUMMARY | 2024-03-03 15:28 | XMS_ITS | Clinical Summary ---
Author Organization [facility] [employer] Address [address] [place] [address] Care Team Providers Care Oil Furnace Installer Name Role Phone Vilma Herrera PA-C Primary Care Provider + Source Comments [facility],non-owned Affiliates and Associated Physician Practices is amultiple site organization consisting of ambulatory clinics and hospital sitesin [place], [place], [place] and [place]. This disclosure is being madepursuant to the Care Everywhere program and may not contain all information available regarding this patient. Last updated 17.[facility] [employer] Allergies Active Allergy Reactions Criticality Noted Date Comments Codeine Vomiting Medium 08/01/2017 Nsaids Other Medium 08/01/2017 Protecting kidney-spills protein Medications * Be aware that medications may not be up to date on this document. Alwaysverify current medications with the patient. Medication Sig Dispensed Refills Start Date End Date Status zolpidem (AMBIEN) 10 MG tablet Take 10 mg by mouth nightly as needed Active raNITIdine (ZANTAC) 150 MG tablet Take 150 mg by mouth 2 times daily Active nystatin (MYCOSTATIN) 834649 UNIT/GM cream Apply to affected area 2 times daily 4 09/19/2018 Active norethindrone (AYGESTIN) 5 MG tablet Take 5 mg by mouth once daily 4 12/15/2018 Active Multiple Vitamin (DAILY-SUZANNE) TABS Take 1 tablet by mouth once daily 12/27/2018 Active metFORMIN (GLUCOPHAGE) 1000 MG tablet Take 1,000 mg by mouth 2 times daily 10/27/2018 Active lisinopril (PRINIVIL; ZESTRIL) 20 MG tablet Take 20 mg by mouth once daily 2 12/17/2018 Active ACCU-CHEK MULTICLIX LANCETS MISC Check blood sugar four times a day or as directed 07/04/2017 Active insulin syringe-needle (BD ULTRAFINE II) 31G X 5/16 1 ML syringe Twice a day 07/13/2018 Active Insulin Pen Needle (PEN NEEDLES) 32G X 6 MM MISC 4 times a day 06/18/2018 Active insulin lispro (HUMALOG) 100 UNIT/ML vial 50 units before each meal. Correctional factor insulin of 1:10 if > 140 mg/dL. Up to 180 units per day 10/20/2018 Active insulin glargine (LANTUS) pen Inject 32 Units subcutaneously 2 times daily 08/05/2018 Active hydroCHLOROthiazid e (MICROZIDE) 12.5 MG capsule Take 12.5 mg by mouth once daily 2 12/05/2018 Active blood glucose test strip Test 4 times daily. 08/01/2017 Activ e estradiol (ESTRACE) 0.5 MG tablet Take 0.5 mg by mouth once daily 10/11/2018 Active DULoxetine (CYMBALTA) 30 MG capsule Take 30 mg by mouth 2 times daily Active clopidogrel (PLAVIX) 75 MG tablet Take 75 mg by mouth once daily 5 12/04/2018 Active citalopram (CELEXA) 20 MG tablet Take 20 mg by mouth once daily 2 12/09/2018 Active cetirizine (ZYRTEC) 10 MG tablet Take 10 mg by mouth once daily 8 12/05/2018 Active CALCIUM 600-D 600-400 MG-UNIT Take 1 tablet by mouth 2 times daily 12/29/2018 Active blood glucose monitoring device (ONE TOUCH ULTRA) device Test 4x daily. 08/01/2017 Active atorvastatin (LIPITOR) 80 MG tablet Take 80 mg by mouth every evening 09/29/2018 Active ASPIRIN LOW DOSE 81 MG Take 81 mg by mouth once daily 5 12/04/2018 Active Diclofenac Sodium (DICLOFENAC IN PLO) 4 % cmp gel Apply to affected area 2 times daily 30 g 2 04/14/2019 Active Active Problems No known active problems Family History Medical History Relation Name Comments Diabetes - Type 2 Father Arthritis - Osteo Mother CAD (Coronary Artery Disease) Mother Cancer - Lung Mother Relation Name Status Comments Father Mother Social History Tobacco Use Types Packs/Day Years Used Date Smoking Tobacco: Some Days Cigarettes Smokeless Tobacco: Never Tobacco Cessation:Ready to Q uit: Yes Comments:working with PCP for Chantix 12/2018 Alcohol Use Standard Drinks/Week Comments Never 0 (1 standard drink = 0.6 oz pur e alcohol) AUDIT-C Answer Date Recorded Frequency of Alcohol Consumption Never 12/30/2018 Average Number of Drinks Not on file 019 Frequency of Binge Drinking Not on file 07/2018 Sex and Gender Information Value Date Recorded Sex Assigned at Not on file Gender Identity Not on file Sexual Orientation Not on file Last Filed Vital Signs Vital Sign Reading Time Taken Comments Blood Pressure 120/64 04/14/2019 3:23 PM DOCUMENT CONTROL COORDINATOR Pulse 70 04/14/2019 3:23 PM DOCUMENT CONTROL COORDINATOR Temperature 36.9 ??C (98.4 ??F) 04/14/2019 3:23 PM CS T Respiratory Rate - - Oxygen Saturation - - Inhaled Oxygen Concentration - - Weight 110.2 kg (243 lb) 04/14/2019 3:23 PM DOCUMENT CONTROL COORDINATOR Height 162.6 cm (5' 4 ) 04/14/2019 3:23 PM DOCUMENT CONTROL COORDINATOR Body Mass Index 41.71 04/14/2019 3:23 PM DOCUMENT CONTROL COORDINATOR Plan of Treatment Health Maintenance Due Date Last Done Comments COLOGUARD (AGES 45-75) - COL ON CA SCREENING 1967 COLON MONITORING 1967 COLONOSCOPY - COLON CA SCREENING 1967 CT COLONOGRAPHY - COLON CA SCREENING 1967 Colorectal Cancer Screening 1967 FIT - COLON CA SCREENING 1967 FLEX SIG - COLON CA SCREENING 1967 MAMMOGRAM 1967 PAP SMEAR 1967 PNEUMOCOCCAL VACCINE (1 of 2 - PCV) 06/09/1973 HIV SCREENING 06/09/1982 HEPATITIS C SCREENING 06/05/1985 DTAP/TDAP/TD VACCINES (1 - Tdap) 06/09/1986 HEPATITIS B VACCINE (1 of 3 - 19+ 3-dose series) 06/09/1986 ZOSTER VACCINE (1 of 2) 06/09/2017 SCREENING FOR DIABETES 12/30/2021 12/30/2018 DEPRESSION SCREENING 02/24/2023 COVID-19 VACCINE (1 - 2023-2 5 season) 2023 INFLUENZA VACCINE (#1) 2023 HIB VACCINE Aged Out No longer eligi ble based on patient's age to complete this topic HPV VACCINE Aged Out No longer eligi ble based on patient's age to complete this topic MENINGOCOCCAL VACCINE Aged Out No allen jorge alberto eligible based on patient's age to complete this topic Procedures Procedure Name Priority Date/Time Associated Diagnosis Comments COMPREHENSIVE METABOLIC PANEL Routine 12/30/2018 2:42 PM [facility] Arthralgia, unspecified joint Dry eye Sicca, unspecified type (HCC) from Last 3 Months or Most Recently Relevant to Health Maintenance Results * (ABNORMAL) COMPREHENSIVE METABOLIC PANEL (12/30/2018 2:42 PM DOCUMENT CONTROL COORDINATOR) BUN 21 7 - 26 mg/dL 12/30/2018 3:54 PM [facility] Creatinine 0.9 0.6 - 1.2 mg/dL 12/30/2018 3:54 PM [facility] Sodium 141 136 - 145 mmol/L 12/30/2018 3:54 PM [facility] Potassium 4.4 3.5 - 4.5 mmol/L 12/30/2018 3:54 PM [facility] Chloride 105 98 - 107 mmol/L 12/30/2018 3:54 PM [facility] CO2 25 22 - 29 mmol/L 12/30/2018 3:54 PM [facility] Glucose 174(H) 70 - 115 mg/dL 12/30/2018 3:54 PM [facility] Calcium 10.8(H) 8.4 - 10.2 mg/dL 12/30/2018 3:54 PM [facility] Protein Total 7.5 6.0 - 8.3 g/dL 12/30/2018 3:54 PM [facility] Albumin 3.8 3.4 - 5.0 g/dL 12/30/2018 3:54 PM [facility] Bilirubin Total 0.2 0.2 - 1.2 mg/dL 12/30/2018 3:54 PM [facility] Alkaline Phosphatase 73 40 - 150 Units/L 12/30/2018 3:54 PM [facility] ALT 38 0 - 55 Units/L 12/30/2018 3:54 PM [facility] AST 39(H) 5 - 34 Units/L 12/30/2018 3:54 PM [facility] Anion Gap 15 8 - 18 12/30/2018 3:54 PM DOCUMENT CONTROL COORDINATOR [facility] BUN/Creatinine Ratio 23 7 - 23 12/30/2018 3:54 PM DOCUMENT CONTROL COORDINATOR [facility] Osmolality Calculated 299 270 - 300 mOsm/kg 12/30/2018 3:54 PM [facility] Albumin/Globulin Ratio 1.0(L) 1.1 - 2.3 12/30/2018 3:54 PM [facility] eGFR >60 >60 mL/min/1.7 3 m2 12/30/2018 3:54 PM [facility] Blood BLOOD SPECIMEN / Unknown Lab Venipuncture / Unknown 12/30/2018 2:42 PM DOCUMENT CONTROL COORDINATOR 12/30/2018 3:19 PM DOCUMENT CONTROL COORDINATOR Emma Borges MD LAB - CHEMISTRY ORDERABLES Performing Organization Address City/State/[facility] Co de Phone Number [facility] [address] [phone] from Last 3 Months or Most Recently Relevant to Health Maintenance Care Teams Oil Furnace Installer Relationship Specialty Start Date End Date Vilma Herrera PA-C [address] [place] [phone] PCP - General 01/05/19
--- OUTSIDE RECORDS SUMMARY | 2024-03-03 15:28 | XMS_ITS | Encounter Summary ---
Author Organization [facility] Address [address] [place] [address] Phone Care Team Providers Care Satellite Tv Technician Installer Name Role Phone Giselle Lamas JOSSELIN Primary Care Provider [phone] Reason for Visit * Reason Comments Medication Refill Encounter Details Date Type Department Care Team (Late st Contact Info) Description 05/13/2019 Refill [facility] - Endocrinology [facility] [address] [place] [phone] Steve Givens MD [address] [phone] Medication Refill Social History Tobacco Use Types Packs/Day Years Used Date Smoking Tobacco: Every Day Cigarettes 0.5 30 Smokeless Tobacco: Never Alcohol Use Standard Drinks/Week Comments Yes 0 (1 standard drink = 0.6 oz pur e alcohol) Sexually Active Control Partners Comments Yes Male Comments No Sex and Gender Information Value Date Recorded Sex Assigned at Not on file Legal Sex Female 3:27 PM CDT Gender Identity Not on file Sexual Orientation Not on file documented as of this encounter Miscellaneous Notes * Telephone Encounter - Steve Givens MD - 05/13/2019 3:02 PM CDT Rx sent * Telephone Encounter - Noy Myles RN - 05/13/2019 10:37 AM CDT Refill request received. Order pended. Requested Prescriptions Pending Prescriptions Disp Refills ??? metFORMIN (GLUCOPHAGE) 1000 MG Tablet [Pharmacy Med Name: METFORMIN 1000MG TAB] 60 Tab Sig: TAKE 1 TABLET BY MOUTH TWICE A DAY WITH FOOD Next appt: 05/25/2019 documented in this encounter Plan of Treatment Not on file documented as of this encounter Visit Diagnoses Not on filedocumented in this encounter Care Teams Satellite Tv Technician Installer Relationship Specialty Start Date End Date Giselle Lamas PAC [address] [place] [address] PCP - General Physician Control Inspector 08/01/17 documented as of this encounter
--- OUTSIDE RECORDS SUMMARY | 2024-03-03 15:28 | XMS_ITS | Encounter Summary ---
Author Organization [facility] Address [address] [place] [place] [address] Phone Care Team Providers Care Journeyman Machinist Name Role Phone Giselle Lamas JOSSELIN Primary Care Provider [phone] Reason for Visit * Reason Comments Medication Refill Encounter Details Date Type Department Care Team (Late st Contact Info) Description 04/30/2019 Refill [facility] - Endocrin[facility] [address] [place] [phone] Steve Givens MD [address] [phone] Medication Refill Social History Tobacco Use Types [...] Telephone Encounter - Steve Givens MD - 05/03/2019 2:21 PM CDT Rx sent * Telephone Encounter - Noy Myles RN - 05/03/2019 9:52 AM CDT Refill request received. Order pended. Requested Prescriptions Pending Prescriptions Disp Refills ??? atorvastatin (LIPITOR) 80 MG Tablet [Pharmacy Med Name: ATORVASTATIN 80MG TAB] 30 Tab Sig: TAKE 1 TABLET BY MOUTH DAILY Next appt: 05/25/2019 documented in this encounter Plan of Treatment Not on file documented as of this encounter Visit Diagnoses Not on filedocumented in this encounter Care Teams Journeyman Machinist Relationship Specialty Start Date End Date Giselle Lamas PAC [address] [place] [address] PCP - General Physician Inside Sales Coordinator 08/01/17 documented as of this encounter
--- OUTSIDE RECORDS SUMMARY | 2024-03-03 15:28 | XMS_ITS | Encounter Summary ---
Author Organization [facility] Health Address [address] [place] [address] Care Team Providers Care Marine Services Technician Name Role Phone KerryGracielaElen fuentes Teri DOWNINGN-BOARD ATTENDANT Primary Care P roemmanuelelder Reason for Visit * Reason Comments Establish Care bilat hand pain/swel ling Encounter Details Date Type Department Care Team (Late st Contact Info) Description 12/30/2018 1:00 PM PERFORATOR LOADER Office Visit [facility] [address] [place] [address] Emma Borges MD [address] [address] Arthralgia, unspecified joint (Primary Dx); Dry eye; Sicca, unspecified type (HCC) Social History Tobacco Use Types Packs/Day Years [...] on file documented as of this encounter Last Filed Vital Signs Vital Sign Reading Time Taken Comments Blood Pressure 132/62 12/30/2018 1:23 PM PERFORATOR LOADER Pulse 72 12/30/2018 1:23 PM PERFORATOR LOADER Temperature 37.2 ??C (99 ??F) 12/30/2018 1:23 PM PERFORATOR LOADER Respiratory Rate - - Oxygen Saturation - - Inhaled Oxygen Concentration - - Weight 107.5 kg (237 lb) 12/30/2018 1:23 PM PERFORATOR LOADER Height 164.5 cm (5' 4.75 ) 12/30/2018 1:23 PM CS T Body Mass Index 39.74 12/30/2018 1:23 PM PERFORATOR LOADER documented in this encounter Patient Instructions * Patient Instructions* Emma Borges MD - 12/30/2018 2:15 PM PERFORATOR LOADER We saw you today for initial evaluation of joint pain. Get labs and XRays today. Try to quit smoking! We can talk about medications after your labs come back. Follow up in 4 weeks/next available. Thank you! If you need to change or cancel your Rheumatology appointment - At the [facility] at [address] [place] [address], [address], call [phone] If you need a refill request, have your pharmacy fax a request to [phone] If you need to leave a message for Dr. Borges, you can send her an electronic message via [employer] or leave a voicemail at [phone]. Her office FAX number is [phone]. For after hours emergency only, you can call the [facility] spreader operator automatic at [phone] and ask for the Room Cooler Installer manager of selection and assessment to be paged. ORATOR LOADER documented in this encounter Progress Notes * Emma Borges MD - 01/11/2019 6:50 AM CST [facility] Rheumatology Initial Clinic Visit Reason for consult: Joint Pain PCP: Vilma Herrera PA-C HPI: Ms. Lopez is a 53 year old female who presents for initial evaluation of joint pain. She notes pain primarily in her hands. It started several years ago - she was diagnosed with carpal tunnel syndrome bilaterally via NCT/EMG. She did not ever have surgery. She thought that the injections did help some. For about six months she's noted more pain in her hands with stiffness and gelling phenomenon. She thinks she has had some swelling in the dorsum of her hands. She has also had trigger fingers in her right 2nd and 4th digits. She has had some pain/stiffness in her hips as well. She notes foot and ankle swelling which gets worse throughout the day. Her left shoulder has also been hurting for about 3 weeks. She was previously evaluated by [facility] who performed some imaging (possibly a nuc med study/bone scan?) which was unremarkable. She complains of tiredness in her bilateral legs as well. This gets worse if she walks more. She notes history of diabetes with elevated hemoglobin a1c. She also has peripheral vascular disease for which she recently got stents placed. ROS: General: -fatigue, -fever, -wt loss/gain, daily functioning not limited HEENT: -dry eyes, -dry mouth, -vision changes, -eye redness, -eye pain, - oral/nasal ulcers CV: -chest pain, -palpitations, - LE edema Resp: -cough, -SOB, -pleuritic pain GI: - dysphagia, - reflux, -abd pain, -constipation, -nausea, -vomiting, - diarrhea, -blood/mucus : -urine changes, -dysuria, -hematuria MSK: +arthralgia, +myalgia, -muscle weakness, -swelling, -erythema, -warmth, -AM stiffness, -back pain Skin: -rash, -lesions, -ulcers, -hair loss, -Raynaud, -acrocyanosis, -photosensitivity Neuro: -TIRADO, +paresthesias Psych: Mood is fair, history of depression and anxiety, no current symptoms ROS otherwise negative Past Medical History: Past Medical History: Diagnosis Date ??? Anxiety ??? Depression ??? Diabetes mellitus ??? Hypertension ??? Peripheral artery disease Social History: Social History Tobacco Use ??? Smoking status: Current Some Day Smoker Packs/day: 0.75 ??? Smokeless tobacco: Never Used ??? Tobacco comment: working with PCP for [facility] 12/2018 Substance Use Topics ??? Alcohol use: Never Frequency: Never ??? Drug use: Never No family history of RA, SLE, psoriasis, IBD Family History: Review of Family History Problem Relation Age of Onset ??? Coronary Artery Disease Mother ??? Arthritis - Osteo Mother ??? Cancer - Lung Mother ??? Diabetes - Type 2 Father Current Medications: Current Outpatient Medications Medication Sig Dispense Refill ??? ACCU-CHEK MULTICLIX LANCETS MISC Check blood sugar four times a day or as directed ??? ASPIRIN LOW DOSE 81 MG Take 81 mg by mouth once daily 5 ??? atorvastatin (LIPITOR) 80 MG tablet Take 80 mg by mouth every evening ??? blood glucose monitoring device (ONE TOUCH ULTRA) device Test 4x daily. ??? blood glucose test strip Test 4 times daily. ??? CALCIUM 600-D 600-400 MG-UNIT Take 1 tablet by mouth 2 times daily ??? cetirizine (ZYRTEC) 10 MG tablet Take 10 mg by mouth once daily 8 ??? citalopram (CELEXA) 20 MG tablet Take 20 mg by mouth once daily 2 ??? clopidogrel (PLAVIX) 75 MG tablet Take 75 mg by mouth once daily 5 ??? DULoxetine (CYMBALTA) 30 MG capsule Take 30 mg by mouth 2 times daily ??? estradiol (ESTRACE) 0.5 MG tablet Take 0.5 mg by mouth once daily ??? hydroCHLOROthiazide (MICROZIDE) 12.5 MG capsule Take 12.5 mg by mouth once daily 2 ??? insulin glargine (LANTUS) pen Inject 32 Units subcutaneously 2 times daily ??? insulin lispro (HUMALOG) 100 UNIT/ML vial 50 units before each meal. Correctional factor insulin of 1:10 if > 140 mg/dL. Up to 180 units per day ??? Insulin Pen Needle (PEN NEEDLES) 32G X 6 MM MISC 4 times a day ??? insulin syringe-needle (BD ULTRAFINE II) 31G X 5/16 1 ML syringe Twice a day ??? lisinopril (PRINIVIL; ZESTRIL) 20 MG tablet Take 20 mg by mouth once daily 2 ??? metFORMIN (GLUCOPHAGE) 1000 MG tablet Take 1,000 mg by mouth 2 times daily ??? Multiple Vitamin (DAILY-SUZANNE) TABS Take 1 tablet by mouth once daily ??? norethindrone (AYGESTIN) 5 MG tablet Take 5 mg by mouth once daily 4 ??? nystatin (MYCOSTATIN) 401200 UNIT/GM cream Apply to affected area 2 times daily 4 ??? raNITIdine (ZANTAC) 150 MG tablet Take 150 mg by mouth 2 times daily ??? zolpidem (AMBIEN) 10 MG tablet Take 10 mg by mouth nightly as needed No current facility-administered medications for this visit. Allergies: Nsaids and Codeine Physical Exam: BP 132/62 (BP SITE: LEFT ARM, BP POSITION: SITTING, BP CUFF SIZE: 11L) Pulse 72 Temp 99 ??F (37.2 ??C) (Oral) Ht 5' 4.75 (1.645 m) Wt 237 lb (107.5 kg) BMI 39.74 kg/m2 General: Alert, oriented, NAD Skin: Skin color, texture, turgor normal. No rashes or lesions HEENT: Normocephalic, without obvious abnormality, atraumatic conjunctivae/corneas clear, EOMI, no oral or nasal ulcers, moist mucus membranes, supple neck Lymphatic: No cervical, supraclavicular adenopathy Back: Symmetric, normal curvature Chest/Lungs: Clear to auscultation bilaterally, normal respiratory effort Heart: RRR, normal S1 and S2, no murmur, no rub Abdomen: Soft, non-tender. Bowel sounds normal. No masses, no organomegaly Neurologic: Grossly normal cranial nerves Musculoskeletal Exam: No swelling Mild knee tenderness Heberden's nodes starting to form Labs: Reviewed, including those as noted below Recent Labs Component Name 12/30/18 1442 WBC 11.0* HGB 13.2 Recent Labs Component Name 12/30/18 1442 NA 141 CL 105 CO2 25 BUN 21 CREATININE 0.9 Recent Labs Component Name 12/30/18 1442 AST 39* ALT 38 ALKPHOS 73 TBILI 0.2 Lab results smartLinks are not currently available Assessment: Ms. Lopez is a 53 year old female who presents for initial evaluation of joint pain. Overall, her symptoms do not sound inflammatory in nature. She has signs of early OA on exam, and her past history is significant for diabetes and peripheral artery disease which could be contributing to her symptoms. Will check XRs and labs as below. Plan: 1. Labs: As below 2. Radiology: As below 3. Medications: None at this time - not a good candidate for NSAIDs currently given recent stent placed for PAD 4. RTC next available to review results Emma Borges MD Rheumatology Attending Orders Placed This Encounter Procedures ??? XR HAND LEFT 2VW ??? XR HAND RIGHT 2VW ??? XR FOOT RIGHT 2VW ??? XR FOOT LEFT 2VW ??? COMPREHENSIVE METABOLIC PANEL ??? C-REACTIVE PROTEIN ??? ERYTHROCYTE SEDIMENTATION RATE ??? ALDOLASE ??? CBC WITH DIFFERENTIAL ??? CK BLOOD ??? LDH BLOOD ??? URIC ACID BLOOD ??? CYCLIC CITRUL PEPTIDE ANTIBODY IGG/IGA (CCP) ??? RHEUMATOID FACTOR BLOOD QUANTITATIVE ??? SS-A (SJOGREN'S) ANTIBODY ??? SS-B (SJOGREN'S) ANTIBODY ORATOR LOADER documented in this encounter Plan of Treatment Not on file documented as of this encounter Results * XR FOOT LEFT 2VW (12/30/2018 3:10 PM PERFORATOR LOADER) Anatomical Region Laterality Modality Ankle / Foot Radiographic Tammi ging 12/30/2018 3:37 PM PERFORATOR LOADER Impressions 12/30/2018 3:48 PM PERFORATOR LOADER IMPRESSION: 1. Right hand: No arthritis. 2. Left hand: Mild degenerative change at the fifth digit distal interphalangeal joint. 3. Right and left feet: No arthritis. Dictated by Kenroy Paul MD (vice president of communications). I, Dr. MC POSADA MD have personally reviewed and interpreted this examination/study. This report was electronically signed by MC POSADA MD ??on 12/30/2018 3:48 PM . Narrative 12/30/2018 3:48 PM PERFORATOR LOADER EXAMINATION: 1. XR HAND RIGHT 2VW 2. XR FOOT LEFT 2VW 3. XR FOOT RIGHT 2VW 4. XR HAND LEFT 2VW HISTORY: hand pain, suspect OA COMPARISON: None FINDINGS: Right hand: There is no fracture or dislocation. A small calcification is noted medial to the first carpal metacarpal joint, representing ossicle or sequela of prior trauma. The joint spaces are preserved. Bone density and texture are normal. No soft tissue swelling is present. Left hand: There is no fracture or dislocation. There is mild degenerative change at the fifth digit distal interphalangeal joint with a dorsal osteophyte. Otherwise the joint spaces are normal. The bone density and texture are normal. There is no soft tissue swelling. Right foot: There is no fracture or subluxation. The joint spaces are maintained. The bone density and texture are normal. There is no soft tissue swelling. Small calcaneal spurs are noted. Left foot: A tiny ossific fragment is noted superior to the head of the talus, representing ossicle or sequela of prior trauma. No acute fracture or subluxation is seen. The bone density and texture are normal. The joint spaces are maintained. There is no soft tissue swelling. Small calcaneal spurs are noted. Procedure Note Mc Posada MD - 12/30/2018 EXAMINATION: 1. XR HAND RIGHT 2VW 2. XR FOOT LEFT 2VW 3. XR FOOT RIGHT 2VW 4. XR HAND LEFT 2VW HISTORY: hand pain, suspect OA COMPARISON: None FINDINGS: Right hand: There is no fracture or dislocation. A small calcification is notedmedial to the first carpal metacarpal joint, representing ossicle or sequela of prior trauma. The joint spaces are preserved. Bone density and textureare normal. No soft tissue swelling is present. Left hand: There is no fracture or dislocation. There is mild degenerative changeat the fifth digit distal interphalangeal joint with a dorsal osteophyte. Otherwise the joint spaces are normal. The bone density and texture are normal. There is no soft tissue swelling. Right foot: There is no fracture or subluxation. The joint spaces are maintained.The bone density and texture are normal. There is no soft tissue swelling. Small calcaneal spurs are noted. Left foot: A tiny ossific fragment is noted superior to the head of the talus, representing ossicle or sequela of prior trauma. No acute fracture or subluxation is seen. The bone density and texture are normal. The joint spaces are maintained. There is no soft tissue swelling. Small calcaneal spurs are noted. IMPRESSION: 1. Right hand: No arthritis. 2. Left hand: Mild degenerative change at the fifth digit distal interphalangeal joint. 3. Right and left feet: No arthritis. Dictated by Kenroy Paul MD (vice president of communications). I, Dr. MC POSADA MD have personally reviewed and interpreted this examination/study. This report was electronically signed by MC POSADA MD on12/30/2018 3:48 PM . Emma Shanna Borges MD DIAGNOSTIC IMAG ING ORDERABLES * XR FOOT RIGHT 2VW (12/30/2018 3:10 PM PERFORATOR LOADER) Anatomical Region Laterality Modality Ankle / Foot Radiographic Tammi ging 12/30/2018 3:37 PM PERFORATOR LOADER Impressions 12/30/2018 3:48 PM PERFORATOR LOADER IMPRESSION: 1. Right hand: No arthritis. 2. Left hand: Mild degenerative change at the fifth digit distal interphalangeal joint. 3. Right and left feet: No arthritis. Dictated by Kenroy Paul MD (vice president of communications). I, Dr. MC POSADA MD have personally reviewed and interpreted this examination/study. This report was electronically signed by MC POSADA MD ??on 12/30/2018 3:48 PM . Narrative 12/30/2018 3:48 PM PERFORATOR LOADER EXAMINATION: 1. XR HAND RIGHT 2VW 2. XR FOOT LEFT 2VW 3. XR FOOT RIGHT 2VW 4. XR HAND LEFT 2VW HISTORY: hand pain, suspect OA COMPARISON: None FINDINGS: Right hand: There is no fracture or dislocation. A small calcification is noted medial to the first carpal metacarpal joint, representing ossicle or sequela of prior trauma. The joint spaces are preserved. Bone density and texture are normal. No soft tissue swelling is present. Left hand: There is no fracture or dislocation. There is mild degenerative change at the fifth digit distal interphalangeal joint with a dorsal osteophyte. Otherwise the joint spaces are normal. The bone density and texture are normal. There is no soft tissue swelling. Right foot: There is no fracture or subluxation. The joint spaces are maintained. The bone density and texture are normal. There is no soft tissue swelling. Small calcaneal spurs are noted. Left foot: A tiny ossific fragment is noted superior to the head of the talus, representing ossicle or sequela of prior trauma. No acute fracture or subluxation is seen. The bone density and texture are normal. The joint spaces are maintained. There is no soft tissue swelling. Small calcaneal spurs are noted. Procedure Note Mc Posada MD - 12/30/2018 EXAMINATION: 1. XR HAND RIGHT 2VW 2. XR FOOT LEFT 2VW 3. XR FOOT RIGHT 2VW 4. XR HAND LEFT 2VW HISTORY: hand pain, suspect OA COMPARISON: None FINDINGS: Right hand: There is no fracture or dislocation. A small calcification is notedmedial to the first carpal metacarpal joint, representing ossicle or sequela of prior trauma. The joint spaces are preserved. Bone density and textureare normal. No soft tissue swelling is present. Left hand: There is no fracture or dislocation. There is mild degenerative changeat the fifth digit distal interphalangeal joint with a dorsal osteophyte. Otherwise the joint spaces are normal. The bone density and texture are normal. There is no soft tissue swelling. Right foot: There is no fracture or subluxation. The joint spaces are maintained.The bone density and texture are normal. There is no soft tissue swelling. Small calcaneal spurs are noted. Left foot: A tiny ossific fragment is noted superior to the head of the talus, representing ossicle or sequela of prior trauma. No acute fracture or subluxation is seen. The bone density and texture are normal. The joint spaces are maintained. There is no soft tissue swelling. Small calcaneal spurs are noted. IMPRESSION: 1. Right hand: No arthritis. 2. Left hand: Mild degenerative change at the fifth digit distal interphalangeal joint. 3. Right and left feet: No arthritis. Dictated by Kenroy Paul MD (vice president of communications). I, Dr. MC POSADA MD have personally reviewed and interpreted this examination/study. This report was electronically signed by MC POSADA MD on12/30/2018 3:48 PM . Emma Borges MD DIAGNOSTIC IMAG ING ORDERABLES * XR HAND RIGHT 2VW (12/30/2018 3:10 PM PERFORATOR LOADER) Anatomical Region Laterality Modality Wrist / Hand Radiographic Tammi ging 12/30/2018 3:37 PM PERFORATOR LOADER Impressions 12/30/2018 3:48 PM PERFORATOR LOADER IMPRESSION: 1. Right hand: No arthritis. 2. Left hand: Mild degenerative change at the fifth digit distal interphalangeal joint. 3. Right and left feet: No arthritis. Dictated by Kenroy Paul MD (vice president of communications). I, Dr. MC POSADA MD have personally reviewed and interpreted this examination/study. This report was electronically signed by MC POSADA MD ??on 12/30/2018 3:48 PM . Narrative 12/30/2018 3:48 PM PERFORATOR LOADER EXAMINATION: 1. XR HAND RIGHT 2VW 2. XR FOOT LEFT 2VW 3. XR FOOT RIGHT 2VW 4. XR HAND LEFT 2VW HISTORY: hand pain, suspect OA COMPARISON: None FINDINGS: Right hand: There is no fracture or dislocation. A small calcification is noted medial to the first carpal metacarpal joint, representing ossicle or sequela of prior trauma. The joint spaces are preserved. Bone density and texture are normal. No soft tissue swelling is present. Left hand: There is no fracture or dislocation. There is mild degenerative change at the fifth digit distal interphalangeal joint with a dorsal osteophyte. Otherwise the joint spaces are normal. The bone density and texture are normal. There is no soft tissue swelling. Right foot: There is no fracture or subluxation. The joint spaces are maintained. The bone density and texture are normal. There is no soft tissue swelling. Small calcaneal spurs are noted. Left foot: A tiny ossific fragment is noted superior to the head of the talus, representing ossicle or sequela of prior trauma. No acute fracture or subluxation is seen. The bone density and texture are normal. The joint spaces are maintained. There is no soft tissue swelling. Small calcaneal spurs are noted. Procedure Note Mc Posada MD - 12/30/2018 EXAMINATION: 1. XR HAND RIGHT 2VW 2. XR FOOT LEFT 2VW 3. XR FOOT RIGHT 2VW 4. XR HAND LEFT 2VW HISTORY: hand pain, suspect OA COMPARISON: None FINDINGS: Right hand: There is no fracture or dislocation. A small calcification is notedmedial to the first carpal metacarpal joint, representing ossicle or sequela of prior trauma. The joint spaces are preserved. Bone density and textureare normal. No soft tissue swelling is present. Left hand: There is no fracture or dislocation. There is mild degenerative changeat the fifth digit distal interphalangeal joint with a dorsal osteophyte. Otherwise the joint spaces are normal. The bone density and texture are normal. There is no soft tissue swelling. Right foot: There is no fracture or subluxation. The joint spaces are maintained.The bone density and texture are normal. There is no soft tissue swelling. Small calcaneal spurs are noted. Left foot: A tiny ossific fragment is noted superior to the head of the talus, representing ossicle or sequela of prior trauma. No acute fracture or subluxation is seen. The bone density and texture are normal. The joint spaces are maintained. There is no soft tissue swelling. Small calcaneal spurs are noted. IMPRESSION: 1. Right hand: No arthritis. 2. Left hand: Mild degenerative change at the fifth digit distal interphalangeal joint. 3. Right and left feet: No arthritis. Dictated by Kenroy Paul MD (vice president of communications). Dr. MC Sanches MD have personally reviewed and interpreted this examination/study. This report was electronically signed by MC POSADA MD on12/30/2018 3:48 PM . Emma Borges MD DIAGNOSTIC IMAG ING ORDERABLES * XR HAND LEFT 2VW (12/30/2018 3:10 PM PERFORATOR LOADER) Anatomical Region Laterality Modality Wrist / Hand Radiographic Tammi ging 12/30/2018 3:37 PM PERFORATOR LOADER Impressions 12/30/2018 3:48 PM PERFORATOR LOADER IMPRESSION: 1. Right hand: No arthritis. 2. Left hand: Mild degenerative change at the fifth digit distal interphalangeal joint. 3. Right and left feet: No arthritis. Dictated by Kenroy Paul MD (vice president of communications). Dr. MC Sanches MD have personally reviewed and interpreted this examination/study. This report was electronically signed by MC POSADA MD ??on 12/30/2018 3:48 PM . Narrative 12/30/2018 3:48 PM PERFORATOR LOADER EXAMINATION: 1. XR HAND RIGHT 2VW 2. XR FOOT LEFT 2VW 3. XR FOOT RIGHT 2VW 4. XR HAND LEFT 2VW HISTORY: hand pain, suspect OA COMPARISON: None FINDINGS: Right hand: There is no fracture or dislocation. A small calcification is noted medial to the first carpal metacarpal joint, representing ossicle or sequela of prior trauma. The joint spaces are preserved. Bone density and texture are normal. No soft tissue swelling is present. Left hand: There is no fracture or dislocation. There is mild degenerative change at the fifth digit distal interphalangeal joint with a dorsal osteophyte. Otherwise the joint spaces are normal. The bone density and texture are normal. There is no soft tissue swelling. Right foot: There is no fracture or subluxation. The joint spaces are maintained. The bone density and texture are normal. There is no soft tissue swelling. Small calcaneal spurs are noted. Left foot: A tiny ossific fragment is noted superior to the head of the talus, representing ossicle or sequela of prior trauma. No acute fracture or subluxation is seen. The bone density and texture are normal. The joint spaces are maintained. There is no soft tissue swelling. Small calcaneal spurs are noted. Procedure Note Mc Posada MD - 12/30/2018 EXAMINATION: 1. XR HAND RIGHT 2VW 2. XR FOOT LEFT 2VW 3. XR FOOT RIGHT 2VW 4. XR HAND LEFT 2VW HISTORY: hand pain, suspect OA COMPARISON: None FINDINGS: Right hand: There is no fracture or dislocation. A small calcification is notedmedial to the first carpal metacarpal joint, representing ossicle or sequela of prior trauma. The joint spaces are preserved. Bone density and textureare normal. No soft tissue swelling is present. Left hand: There is no fracture or dislocation. There is mild degenerative changeat the fifth digit distal interphalangeal joint with a dorsal osteophyte. Otherwise the joint spaces are normal. The bone density and texture are normal. There is no soft tissue swelling. Right foot: There is no fracture or subluxation. The joint spaces are maintained.The bone density and texture are normal. There is no soft tissue swelling. Small calcaneal spurs are noted. Left foot: A tiny ossific fragment is noted superior to the head of the talus, representing ossicle or sequela of prior trauma. No acute fracture or subluxation is seen. The bone density and texture are normal. The joint spaces are maintained. There is no soft tissue swelling. Small calcaneal spurs are noted. IMPRESSION: 1. Right hand: No arthritis. 2. Left hand: Mild degenerative change at the fifth digit distal interphalangeal joint. 3. Right and left feet: No arthritis. Dictated by Kenroy Paul MD (vice president of communications). I, Dr. MC POSADA MD have personally reviewed and interpreted this examination/study. This report was electronically signed by MC POSADA MD on12/30/2018 3:48 PM . Emma Borges MD DIAGNOSTIC IMAG ING ORDERABLES * SS-B (SJOGREN'S) ANTIBODY (12/30/2018 2:42 PM PERFORATOR LOADER) SS-B LA Antibody 3.3 0.0 - 19.9 Units 01/01/2019 12:51 PM PERFORATOR LOADER [facility] Comment: ROWDY Antibody Numeric Result Interpretation: ?<20.0 Units: ??Negative ?20.0 - 39.0 Units: ??Weakly Positive ?>39.0 Units: ??Positive ? Blood BLOOD SPECIMEN / Unknown Lab Venipuncture / Unknown 12/30/2018 2:42 PM PERFORATOR LOADER 12/30/2018 3:18 PM PERFORATOR LOADER Emma Borges MD LAB - CHEMISTRY ORDERABLES Performing Organization Address City/State/[facility] Co de Phone Number [facility] [address] [place] [address] * SS-A (SJOGREN'S) ANTIBODY (12/30/2018 2:42 PM PERFORATOR LOADER) SS-A (Ro) Antibody 3.3 0.0 - 19.9 Units 01/01/2019 12:51 PM PERFORATOR LOADER [facility] Comment: ROWDY Antibody Numeric Result Interpretation: ?<20.0 Units: ??Negative ?20.0 - 39.0 Units: ??Weakly Positive ?>39.0 Units: ??Positive ? Blood BLOOD SPECIMEN / Unknown Lab Venipuncture / Unknown 12/30/2018 2:42 PM PERFORATOR LOADER 12/30/2018 3:18 PM PERFORATOR LOADER Emma Borges MD LAB - CHEMISTRY ORDERABLES Performing Organization Address [facility] de Phone Number [address] [phone] * RHEUMATOID FACTOR BLOOD QUANTITATIVE (12/30/2018 2:42 PM PERFORATOR LOADER) Rheumatoid Factor 17 <30 IU/mL 12/30/2018 4:00 PM PERFORATOR LOADER [facility] Blood BLOOD SPECIMEN / Unknown Lab Venipuncture / Unknown 12/30/2018 2:42 PM PERFORATOR LOADER 12/30/2018 3:19 PM PERFORATOR LOADER Emma Borges MD LAB - CHEMISTRY ORDERABLES Performing Organization Address [facility] de Phone Number [address] [phone] * CYCLIC CITRUL PEPTIDE ANTIBODY IGG/IGA (CCP) (12/30/2018 2:42 PM PERFORATOR LOADER) CCP Antibodies IgG/IgA 6 0 - 19 units 01/01/2019 10:06 PM PERFORATOR LOADER [facility] Comment: ?Negative ? <20 ?Weak positive ?20 - 39 ?Moderate positive ??40 - 59 ?Strong positive ?>59 Blood BLOOD SPECIMEN / Unknown Lab Venipuncture / Unknown 12/30/2018 2:42 PM PERFORATOR LOADER 12/30/2018 3:19 PM PERFORATOR LOADER Narrative [facility]) - 01/01/2019 10:06 PM PERFORATOR LOADER Performed at: ??01 - [facility] [address] ??[id number] Cigarette Machine Operator: Raoul Herrera MD, Phone: ??[phone] Emma Borges MD LAB - SEROLOGY ORDERABLES [facility] [address] [id number] * (ABNORMAL) URIC ACID BLOOD (12/30/2018 2:42 PM PERFORATOR LOADER) Pathologist [facility] Uric Acid 7.3(H) 2.6 - 7.2 mg/dL 12/30/2018 3:56 PM PERFORATOR LOADER [facility] Blood BLOOD SPECIMEN / Unknown Lab Venipuncture / Unknown 12/30/2018 2:42 PM PERFORATOR LOADER 12/30/2018 3:19 PM PERFORATOR LOADER Emma Borges MD LAB - CHEMISTRY ORDERABLES Performing Organization Address [facility] Co de Phone Number [address] [phone] * LDH BLOOD (12/30/2018 2:42 PM PERFORATOR LOADER) [facility] LDH Total 188 125 - 243 Units/L 12/30/2018 3:54 PM PERFORATOR LOADER [facility] Blood BLOOD SPECIMEN / Unknown Lab Venipuncture / Unknown 12/30/2018 2:42 PM PERFORATOR LOADER 12/30/2018 3:19 PM PERFORATOR LOADER Emma Borges MD LAB - CHEMISTRY ORDERABLES Performing Organization Address [facility]/ZIP Co de Phone Number [address] [phone] * CK BLOOD (12/30/2018 2:42 PM PERFORATOR LOADER) Pathologist [facility] CK Total 126 30 - 200 Units/L 12/30/2018 3:54 PM [facility] Blood BLOOD SPECIMEN / Unknown Lab Venipuncture / Unknown 12/30/2018 2:42 PM PERFORATOR LOADER 12/30/2018 3:19 PM PERFORATOR LOADER Emma Borges MD LAB - CHEMISTRY ORDERABLES [facility] [address] [place] [address] * (ABNORMAL) CBC WITH DIFFERENTIAL (12/30/2018 2:42 PM PERFORATOR LOADER) WBC 11.0(H) 3.5 - 10.5 10? 3 /uL 12/30/2018 3:37 PM [facility] RBC 4.60 3.90 - 5.00 10? 6 /uL 12/30/2018 3:37 PM [facility] Hemoglobin 13.2 12.0 - 15.5 g/dL 12/30/2018 3:37 PM [facility] Hematocrit 42.7 35.0 - 45.0 % 12/30/2018 3:37 PM [facility] MCV 92.8 81.0 - 97.0 fL 12/30/2018 3:37 PM [facility] MCH 28.7 28.0 - 34.0 pg 12/30/2018 3:37 PM [facility] MCHC 30.9(L) 32.0 - 36.0 g/dL 12/30/2018 3:37 PM [facility] Platelet Count 328 150 - 400 10? 3 /uL 12/30/2018 3:37 PM [facility] RDW-SD 44.5 36.0 - 50.0 fL 12/30/2018 3:37 PM [facility] RDW-CV 13.2 11.2 - 14.8 % 12/30/2018 3:37 PM [facility] MPV 10.7 9.3 - 12.8 fL 12/30/2018 3:37 PM [facility] nRBC Absolute 0.00 0 10? 3 /uL 12/30/2018 3:37 PM [facility] nRBC Auto 0.0 0 /100 WBC 12/30/2018 3:37 PM [facility] Neutrophils % 57.7 35.0 - 70.0 % 12/30/2018 3:37 PM [facility] Lymphocytes % 31.2 19.7 - 55.1 % 12/30/2018 3:37 PM [facility] Monocytes % 6.6 3.0 - 15.0 % 12/30/2018 3:37 PM [facility] Eosinophils % 3.5 0.0 - 6.0 % 12/30/2018 3:37 PM [facility] Basophil % 0.7 0.0 - 1.5 % 12/30/2018 3:37 PM [facility] Neutrophils Absolute 6.4 1.6 - 7.0 10? 3 /uL 12/30/2018 3:37 PM [facility] Lymphocyte Absolute 3.4(H) 0.8 - 2.9 10? 3 /uL 12/30/2018 3:37 PM [facility] Monocytes Absolute 0.73(H) 0.14 - 0.66 10? 3 /uL 12/30/2018 3:37 PM [facility] Eosinophils Absolute 0.39 0.00 - 0.45 10? 3 /uL 12/30/2018 3:37 PM [facility] Basophils Absolute 0.08(H) 0.00 - 0.06 10? 3 /uL 12/30/2018 3:37 PM [facility] Immature Granulocytes % 0.3 0.0 - 1.0 % 12/30/2018 3:37 PM [facility] Blood BLOOD SPECIMEN / Unknown Lab Venipuncture / Unknown 12/30/2018 2:42 PM PERFORATOR LOADER 12/30/2018 3:19 PM [facility] Emma Borges MD LAB - HEMATOLOG Y ORDERABLES [address] [phone] * ALDOLASE (12/30/2018 2:42 PM [facility]) Aldolase 8.1 3.3 - 10.3 U/L 01/01/2019 4:09 PM [facility] Blood BLOOD SPECIMEN / Unknown Lab Venipuncture / Unknown 12/30/2018 2:42 PM PERFORATOR LOADER 12/30/2018 3:20 PM PERFORATOR LOADER Narrative [facility]) - 01/01/2019 4:09 PM PERFORATOR LOADER Performed at: ??01 - [facility] [address] [facility], [place], [place] ??[id number] Cigarette Machine Operator: Raj Price PhD, Phone: ??[phone] Emma Borges MD LAB - CHEMISTRY ORDERABLES [facility]) [address] [place] [address] * (ABNORMAL) ERYTHROCYTE SEDIMENTATION RATE (12/30/2018 2:42 PM PERFORATOR LOADER) Erythrocyte Sedimentation Rate Westergren 35(H) 0 - 30 MM/HR 12/30/2018 3:49 PM PERFORATOR LOADER [facility] Blood BLOOD SPECIMEN / Unknown Lab Venipuncture / Unknown 12/30/2018 2:42 PM PERFORATOR LOADER 12/30/2018 3:19 PM PERFORATOR LOADER Emma Borges MD LAB - HEMATOLOG Y ORDERABLES Performing Organization Address City/[facility]/ZIP Co de Phone Number [address] [phone] * C-REACTIVE PROTEIN (12/30/2018 2:42 PM PERFORATOR LOADER) Pathologist [facility] C-Reactive Protein <0.5 <=0.5 mg/dL 12/30/2018 4:30 PM PERFORATOR LOADER [facility] Blood BLOOD SPECIMEN / Unknown Lab Venipuncture / Unknown 12/30/2018 2:42 PM PERFORATOR LOADER 12/30/2018 3:18 PM PERFORATOR LOADER Emma Borges MD LAB - CHEMISTRY ORDERABLES Performing Organization Address City/[facility]/ZIP Co de Phone Number [address] [phone] * (ABNORMAL) COMPREHENSIVE METABOLIC PANEL (12/30/2018 2:42 PM [facility]) BUN 21 7 - 26 mg/dL 12/30/2018 3:54 PM [facility] Creatinine 0.9 0.6 - 1.2 mg/dL 12/30/2018 3:54 PM [facility] Sodium 141 136 - 145 mmol/L 12/30/2018 3:54 PM [facility] Potassium 4.4 3.5 - 4.5 mmol/L 12/30/2018 3:54 PM [facility] Chloride 105 98 - 107 mmol/L 12/30/2018 3:54 PM [facility] CO2 25 22 - 29 mmol/L 12/30/2018 3:54 PM [facility] Glucose 174(H) 70 - 115 mg/dL 12/30/2018 3:54 PM [facility] Calcium 10.8(H) 8.4 - 10.2 mg/dL 12/30/2018 3:54 PM [facility] Protein Total 7.5 6.0 - 8.3 g/dL 12/30/2018 3:54 PM [facility] Albumin 3.8 3.4 - 5.0 g/dL 12/30/2018 3:54 PM [facility] Bilirubin Total 0.2 0.2 - 1.2 mg/dL 12/30/2018 3:54 PM [facility] Alkaline Phosphatase 73 40 - 150 Units/L 12/30/2018 3:54 PM [facility] ALT 38 0 - 55 Units/L 12/30/2018 3:54 PM [facility] AST 39(H) 5 - 34 Units/L 12/30/2018 3:54 PM [facility] Anion Gap 15 8 - 18 12/30/2018 3:54 PM [facility] BUN/Creatinine Ratio 23 7 - 23 12/30/2018 3:54 PM [facility] Osmolality Calculated 299 270 - 300 mOsm/kg 12/30/2018 3:54 PM [facility] Albumin/Globulin Ratio 1.0(L) 1.1 - 2.3 12/30/2018 3:54 PM [facility] eGFR >60 >60 mL/min/1.7 3 m2 12/30/2018 3:54 PM [facility] Blood BLOOD SPECIMEN / Unknown Lab Venipuncture / Unknown 12/30/2018 2:42 PM PERFORATOR LOADER 12/30/2018 3:19 PM PERFORATOR LOADER Emma Borges MD LAB - CHEMISTRY ORDERABLES [facility] [address] [phone] documented in this encounter Visit Diagnoses Diagnosis Arthralgia, unspecified joint- Primary Dry eye Sicca, unspecified type (HCC) Arthralgia, unspecified joint Dry eye Sicca, unspecified type (HCC) documented in this encounter Care Teams Marine Services Technician Relationship Specialty Start Date End Date Elen Hathaway, RIGHT OF WAY BUYER-BOARD ATTENDANT [address] [place] [address] PCP - General 09/04/18 01/04/19 documented as of this encounter
--- OUTSIDE RECORDS SUMMARY | 2024-03-03 15:28 | XMS_ITS | Encounter Summary ---
Author Organization [facility] Address [address] [facility] [place] [address] Phone Care Team Providers Care External Grinder Tender Name Role Phone Giselle Lamas JOSSELIN Primary Care Provider [phone] Reason for Visit * Reason Comments Medication Refill Encounter Details Date Type Department Care Team (Late st Contact Info) Description 08/16/2019 Refill [facility] - Endocrinology [facility]3] [address] [place] [phone] Steve Givens MD [address] [phone] Medication Refill Social History Tobacco Use Types [...] encounter Miscellaneous Notes * Telephone Encounter - Eunice Ortiz RN - 08/17/2019 11:55 AM CDT Call placed to patient to inform her that Dr. Givens refilled her prescriptions, but that [facility] no longer takes [place] insurance and that patient will need further refills from PCP or a new sock ironer. Patient verbalized understanding and has an appointment with a new sock ironer. * Telephone Encounter - Steve Givens MD - 08/16/2019 4:33 PM CDT Rx sent The patient has [employer] Insurance. Please advise her again to get future Rx from PCP or a new sock ironer office. documented in this encounter Plan of Treatment Not on file documented as of this encounter Visit Diagnoses Not on filedocumented in this encounter Care Teams External Grinder Tender Relationship Specialty Start Date End Date Giselle Lamas PAC [address] [phone] PCP - General Physician Vascular Nurse 08/01/17 documented as of this encounter
--- OUTSIDE RECORDS SUMMARY | 2024-03-03 15:28 | XMS_ITS | Encounter Summary ---
Author Organization [facility] Address [address] [place] [address] Phone Care Team Providers Care 5Th Grade Teacher Name Role Phone Giselle Lamas JOSSELIN Primary Care Provider [phone] Reason for Visit * Reason Comments Medication Refill Encounter Details Date Type Department Care Team (Late st Contact Info) Description 07/15/2019 Refill [facility] - Endocrinology [facility] [address] [place] [phone] Steve Givens MD [address] [phone] Medication Refill Social History Tobacco Use Types [...] encounter Miscellaneous Notes * Telephone Encounter - Almita Al CMA - 07/16/2019 2:01 PM CDT Left message for patient to call back. * Telephone Encounter - Steve Givens MD - 07/15/2019 3:54 PM CDT Rx sent If the patient still has [place], please advise him to get Rx from PCP or find out a new endo which accepts her insurance. * Telephone Encounter - Almita Al CMA - 07/15/2019 2:58 PM CDT Patient calling requesting refill of: Requested Prescriptions Pending Prescriptions Disp Refills ??? BASAGLAR KWIKPEN 100 UNIT/ML Solution Pen-injector [Pharmacy Med Name: BASAGLAR 100UNIT INJ] 24mL Sig: INJECT 38 UNITS SUBCUTANEOUSLY EVERY TWELVE HOURS Last fill: Patients next office visit with ENDO is: Patient no showed her last appointment. Has not called back to reschedule. documented in this encounter Plan of Treatment Not on file documented as of this encounter Visit Diagnoses Not on filedocumented in this encounter Care Teams 5Th Grade Teacher Relationship Specialty Start Date End Date Giselle Lamas PAC [address] [place] [address] PCP - General Physician Direct Care Supervisor 08/01/17 documented as of this encounter
--- OUTSIDE RECORDS SUMMARY | 2024-03-03 15:28 | XMS_ITS | Encounter Summary ---
Author Organization [facility] Address [address] [place] [address] Care Team Providers Care Human Relations Professor Name Role Phone Vilma Herrera PA-C Primary Care Provider + Encounter Details Date Type Department Care Team (Late st Contact Info) Description 05/19/2020 Orders Only [facility] - COVID Vaccine [address] [place] [phone] Drew Reid MD [address] [place] [address] Need for vaccination Social History Tobacco Use Types Packs/Day Years Used Date Smoking Tobacco: Some Days Cigarettes Smokeless Tobacco: Never Comments:working with PCP armando Nicole 12/2018 Alcohol Use Standard Drinks/Week Comments Never [...] on file documented as of this encounter Plan of Treatment Not on file documented as of this encounter Visit Diagnoses Diagnosis Need for vaccination Need for prophylactic vaccination and inoculation against unspecified single disease documented in this encounter Care Teams Human Relations Professor Relationship Specialty Start Date End Date Vilma eHrrera PA-C [address] [place] [phone] PCP - General 01/05/19 documented as of this encounter
--- OUTSIDE RECORDS SUMMARY | 2024-03-03 15:28 | XMS_ITS | Patient Health Summary ---
Author Organization [facility] Address [address] [place] [address] Care Team Providers Care Therapeutic Recreation Specialist Name Role Phone Vilma Herrera PA-C Primary Care Provider + Note from [facility],non-owned Affiliates and Associated Physician Practices is amultiple site organization consisting of ambulatory clinics and hospital sitesin [place], [place], [place] and [place]. This disclosure is being madepursuant to the Care Everywhere program and may not contain all information available regarding this patient. Last updated 17.[facility] Allergies * Codeine(Vomiting) -Medium Criticality * Nsaids(Other) -Medium Criticality Medications * Be aware that medications may not be up to date on this document. Alwaysverify current medications with the patient. * zolpidem (AMBIEN) 10 MG tablet Take 10 mg by mouth nightly as needed * raNITIdine (ZANTAC) 150 MG tablet Take 150 mg by mouth 2 times daily * nystatin (MYCOSTATIN) 641423 UNIT/GM cream(Started 09/19/2018) Apply to affected area 2 times daily 4 refills left * norethindrone (AYGESTIN) 5 MG tablet(Started 12/15/2018) Take 5 mg by mouth once daily 4 refills left * Multiple Vitamin (DAILY-SUZANNE) TABS(Started 12/27/2018) Take 1 tablet by mouth once daily * metFORMIN (GLUCOPHAGE) 1000 MG tablet(Started 10/27/2018) Take 1,000 mg by mouth 2 times daily * lisinopril (PRINIVIL; ZESTRIL) 20 MG tablet(Started 12/17/2018) Take 20 mg by mouth once daily 2 refills left * ACCU-CHEK MULTICLIX LANCETS MISC(Started 07/04/2017) Check blood sugar four times a day or as directed * insulin syringe-needle (BD ULTRAFINE II) 31G X /16 1 ML syringe(Started 07/13/2018) Twice a day * Insulin Pen Needle (PEN NEEDLES) 32G X 6 MM MISC(Started 06/18/2018) 4 times a day * insulin lispro (HUMALOG) 100 UNIT/ML vial(Started 10/20/2018) 50 units before each meal. Correctional factor insulin of 1:10 if > 140 mg/dL. Up to 180 units per day * insulin glargine (LANTUS) pen(Started 08/05/2018) Inject 32 Units subcutaneously 2 times daily * hydroCHLOROthiazide (MICROZIDE) 12.5 MG capsule(Started 12/05/2018) Take 12.5 mg by mouth once daily 2 refills left * blood glucose test strip(Started 08/01/2017) Test 4 times daily. * estradiol (ESTRACE) 0.5 MG tablet(Started 10/11/2018) Take 0.5 mg by mouth once daily * DULoxetine (CYMBALTA) 30 MG capsule Take 30 mg by mouth 2 times daily * clopidogrel (PLAVIX) 75 MG tablet(Started 12/04/2018) Take 75 mg by mouth once daily 5 refills left * citalopram (CELEXA) 20 MG tablet(Started 12/09/2018) Take 20 mg by mouth once daily 2 refills left * cetirizine (ZYRTEC) 10 MG tablet(Started 12/05/2018) Take 10 mg by mouth once daily 8 refills left * CALCIUM 600-D 600-400 MG-UNIT(Started 12/29/2018) Take 1 tablet by mouth 2 times daily * blood glucose monitoring device (ONE TOUCH ULTRA) device(Started 08/01/2017) Test 4x daily. * atorvastatin (LIPITOR) 80 MG tablet(Started 09/29/2018) Take 80 mg by mouth every evening * ASPIRIN LOW DOSE 81 MG(Started 12/04/2018) Take 81 mg by mouth once daily 5 refills left * Diclofenac Sodium (DICLOFENAC IN PLO) 4 % cmp gel(Started 04/14/2019) Apply to affected area 2 times daily 2 refills by 04/13/2020 Active Problems No known active problems Social History Tobacco Use Types Packs/Day Years [...] Comments Blood Pressure 120/64 04/14/2019 3:23 PM [employer] Pulse 70 04/14/2019 3:23 PM [employer] Temperature 36.9 ??C (98.4 ??F) 04/14/2019 3:23 PM CS T Respiratory Rate - - Oxygen Saturation - - Inhaled Oxygen Concentration - - Weight 110.2 kg (243 lb) 04/14/2019 3:23 PM [employer] Height 162.6 cm (5' 4 ) 04/14/2019 3:23 PM [employer] Body Mass Index 41.71 04/14/2019 3:23 PM [employer] Procedures * DERMATOPATHOLOGY(Performed 04/20/2021) * XR FOOT LEFT 2VW(Performed 12/30/2018) Performed for Arthralgia, unspecified joint, Dry eye, [place], unspecified type (HCC) * XR FOOT RIGHT 2VW(Performed 12/30/2018) Performed for Arthralgia, unspecified joint, Dry eye, [place], unspecified type (HCC) * XR HAND RIGHT 2VW(Performed 12/30/2018) Performed for Arthralgia, unspecified joint, Dry eye, [place], unspecified type (HCC) * XR HAND LEFT 2VW(Performed 12/30/2018) Performed for Arthralgia, unspecified joint, Dry eye, [place], unspecified type (HCC) * SS-B (SJOGREN'S) ANTIBODY(Performed 12/30/2018) Performed for Arthralgia, unspecified joint, Dry eye, [place], unspecified type (HCC) * SS-A (SJOGREN'S) ANTIBODY(Performed 12/30/2018) Performed for Arthralgia, unspecified joint, Dry eye, [place], unspecified type (HCC) * RHEUMATOID FACTOR BLOOD QUANTITATIVE(Performed 12/30/2018) Performed for Arthralgia, unspecified joint, Dry eye, [place], unspecified type (HCC) * CYCLIC CITRUL PEPTIDE ANTIBODY IGG/IGA (CCP)(Performed 12/30/2018) Performed for Arthralgia, unspecified joint, Dry eye, [place], unspecified type (HCC) * URIC ACID BLOOD(Performed 12/30/2018) Performed for Arthralgia, unspecified joint, Dry eye, [place], unspecified type (HCC) * LDH BLOOD(Performed 12/30/2018) Performed for Arthralgia, unspecified joint, Dry eye, [place], unspecified type (HCC) * CK BLOOD(Performed 12/30/2018) Performed for Arthralgia, unspecified joint, Dry eye, [place], unspecified type (HCC) * CBC W AUTO DIFFERENTIAL(Performed 12/30/2018) Performed for Arthralgia, unspecified joint, Dry eye, [place], unspecified type (HCC) * ALDOLASE(Performed 12/30/2018) Performed for Arthralgia, unspecified joint, Dry eye, [place], unspecified type (HCC) * ERYTHROCYTE SEDIMENTATION RATE(Performed 12/30/2018) Performed for Arthralgia, unspecified joint, Dry eye, [place], unspecified type (HCC) * C-REACTIVE PROTEIN(Performed 12/30/2018) Performed for Arthralgia, unspecified joint, Dry eye, [place], unspecified type (HCC) * COMPREHENSIVE METABOLIC PANEL(Performed 12/30/2018) Performed for Arthralgia, unspecified joint, Dry eye, [place], unspecified type (HCC) Results * DERMATOPATHOLOGY (04/20/2021 12:00 AM [employer]) Case Report Dermatopathology Report ? Case: [id number] ? Authorizing Provider: ??Jack Skelton MD ?Collected: ? 04/20/2021 12:00 AM ? Ordering Location: ? [facility] ?Received: ?04/24/2021 09:34 AM ? Pathologist: ? Caitlyn Bacon, ? MD ? Specimen: ?Skin, right axilla ? 2 3:12 PM [facility] DERMATOPATHOLOGY LABORATORY Final Diagnosis Specimen A. SKIN, right axilla: EPIDERMOID CYST (L72.0) NOT PRESENT AT SAMPLED MARGIN 2 3:12 PM [facility] DERMATOPATHOLOGY LABORATORY Clinical History Cyst. Path # [id number]. Check margins. 2 3:12 PM [facility] DERMATOPATHOLOGY [facility]ORATORY Gross Description Specimen A: Received is one formalin filled container labeled with the patient's name and designated right axilla. The specimen consists of a [id number] excision, bisected. The margin is inked green. Jar 0. 2 3:12 PM [facility] DERMATOPATHOLOGY LABORATORY Microscopic Description Specimen A. SKIN, right axilla: Within the dermis, there is a space lined by epithelium that resembles normal epidermis and the infundibular portion of the hair follicle. This lesion is not present at the sampled margin of the specimen. 2 3:12 PM [employer] DERMATOPATHOLOGY LABORATORY Disclaimer An external and internal positive and negative controls are appropriate for the histochemical, immunohistochemical and immunofluorescence stain(s) in this case (if any), except where stated explicitly. The performance characteristics of the stain(s) cited in this report were developed and its performance characteristic determined by the Dermatopathology Laboratory at [facility], directed by Dr. Boris Bustos. These tests need not be, and therefore are not, approved by the [place] Food and Drug Administration. The tests are used for clinical purposes. Billing Codes Specimen Charges Stain Charges 25024 1 2 3:12 PM [employer] DERMATOPATHOLOGY LABORATORY Embedded Images 2 3:12 PM [employer] DERMATOPATHOLOGY LABORATORY Pathology/Cytolog y TISSUE SPECIMEN FROM SKIN / Unknown 04/20/2021 04/24/2021 9:34 AM [employer] Jack Skelton MD LAB - PATHOLOGY/CYTO LOGY ORDERABLES DERMATOPATHOLOGY LABORATORY [facility] - Department of Dermatology [address] [phone] * XR FOOT RIGHT 2VW (12/30/2018 3:10 PM [employer]) Anatomical Region Laterality Modality Ankle / Foot Radiographic Tammi ging 12/30/2018 3:37 PM [employer] Impressions 12/30/2018 3:48 PM [employer] IMPRESSION: 1. Right hand: No arthritis. 2. Left hand: Mild degenerative change at the fifth digit distal interphalangeal joint. 3. Right and left feet: No arthritis. Dictated by Kenroy Paul MD (consultant luxury and auto. vice president [employer] (ex )). I, Dr. MC POSDAA MD have personally reviewed and interpreted this examination/study. This report was electronically signed by MC POSADA MD ??on 12/30/2018 3:48 PM . Narrative 12/30/2018 3:48 PM [employer] EXAMINATION: 1. XR HAND RIGHT 2VW 2. [...] No arthritis. Dictated by Kenroy Paul MD (consultant luxury and auto. vice president [employer] (ex )). Dr. MC Sanches MD have personally reviewed and interpreted this examination/study. This report was electronically signed by MC POSADA MD on12/30/2018 3:48 PM . Emma Borges MD DIAGNOSTIC IMAG ING ORDERABLES * XR FOOT LEFT 2VW (12/30/2018 3:10 PM [employer]) Anatomical Region Laterality Modality Ankle / Foot Radiographic Tammi ging 12/30/2018 3:37 PM [employer] Impressions 12/30/2018 3:48 PM [employer] IMPRESSION: 1. Right hand: No arthritis. 2. Left hand: Mild degenerative change at the fifth digit distal interphalangeal joint. 3. Right and left feet: No arthritis. Dictated by Kenroy Paul MD (consultant luxury and auto. vice president [employer] (ex )). Dr. MC Sanches MD have personally reviewed and interpreted this examination/study. This report was electronically signed by MC POSADA MD ??on 12/30/2018 3:48 PM . Narrative 12/30/2018 3:48 PM [employer] EXAMINATION: 1. XR HAND RIGHT 2VW 2. [...] No arthritis. Dictated by Kenroy Paul MD (consultant luxury and auto. vice president [employer] (ex )). I, Dr. MC POSADA MD have personally reviewed and interpreted this examination/study. This report was electronically signed by MC POSADA MD on12/30/2018 3:48 PM . Emma Borges MD DIAGNOSTIC IMAG ING ORDERABLES * XR HAND RIGHT 2VW (12/30/2018 3:10 PM [employer]) Anatomical Region Laterality Modality Wrist / Hand Radiographic Tammi ging 12/30/2018 3:37 PM [employer] Impressions 12/30/2018 3:48 PM [employer] IMPRESSION: 1. Right hand: No arthritis. 2. Left hand: Mild degenerative change at the fifth digit distal interphalangeal joint. 3. Right and left feet: No arthritis. Dictated by Kenroy Paul MD (consultant luxury and auto. vice president [employer] (ex )). I, Dr. MC POSADA MD have personally reviewed and interpreted this examination/study. This report was electronically signed by MC POSADA MD ??on 12/30/2018 3:48 PM . Narrative 12/30/2018 3:48 PM [employer] EXAMINATION: 1. XR HAND RIGHT 2VW 2. [...] No arthritis. Dictated by Kenroy Paul MD (consultant luxury and auto. vice president [employer] (ex )). I, Dr. MC POSADA MD have personally reviewed and interpreted this examination/study. This report was electronically signed by MC POSADA MD on12/30/2018 3:48 PM . Emma Borges MD DIAGNOSTIC IMAG ING ORDERABLES * XR HAND LEFT 2VW (12/30/2018 3:10 PM [employer]) Anatomical Region Laterality Modality Wrist / Hand Radiographic Tammi ging 12/30/2018 3:37 PM [employer] Impressions 12/30/2018 3:48 PM [employer] IMPRESSION: 1. Right hand: No arthritis. 2. Left hand: Mild degenerative change at the fifth digit distal interphalangeal joint. 3. Right and left feet: No arthritis. Dictated by Kenroy Paul MD (consultant luxury and auto. vice president [employer] (ex )). I, Dr. MC POSADA MD have personally reviewed and interpreted this examination/study. This report was electronically signed by MC POSADA MD ??on 12/30/2018 3:48 PM . Narrative 12/30/2018 3:48 PM [employer] EXAMINATION: 1. XR HAND RIGHT 2VW 2. [...] No arthritis. Dictated by Kenroy Paul MD (consultant luxury and auto. vice president [employer] (ex )). I, Dr. MC POSADA MD have personally reviewed and interpreted this examination/study. This report was electronically signed by MC POSADA MD on12/30/2018 3:48 PM . Emma Borges MD DIAGNOSTIC IMAG ING ORDERABLES * CYCLIC CITRUL PEPTIDE ANTIBODY IGG/IGA (CCP) (12/30/2018 2:42 PM [employer]) CCP Antibodies IgG/IgA 6 0 - 19 units 01/01/2019 10:06 PM [employer] [facility] ([facility]) Comment: ?Negative ? <20 ?Weak positive ?20 - 39 ?Moderate positive ??40 - 59 ?Strong positive ?>59 Blood BLOOD SPECIMEN / Unknown Lab Venipuncture / Unknown 12/30/2018 2:42 PM [employer] 12/30/2018 3:19 PM [employer] Narrative [facility] ([facility]) - 01/01/2019 10:06 PM [employer] Performed at: ??01 - [facility] [address] ??[id number] Tin Worker: Raoul Herrera MD, Phone: ??[phone] Emma Borges MD LAB - SEROLOGY ORDERABLES [facility] ([facility]) [address] [id number] * (ABNORMAL) URIC ACID BLOOD (12/30/2018 2:42 PM [employer]) Pathologist [facility] Uric Acid 7.3(H) 2.6 - 7.2 mg/dL 12/30/2018 3:56 PM [employer] [facility] Blood BLOOD SPECIMEN / Unknown Lab Venipuncture / Unknown 12/30/2018 2:42 PM [employer] 12/30/2018 3:19 PM [employer] Emma Borges MD LAB - CHEMISTRY ORDERABLES Performing Organization Address [facility] Co de Phone Number [address] [phone] * RHEUMATOID FACTOR BLOOD QUANTITATIVE (12/30/2018 2:42 PM [employer]) Pathologist [facility] Rheumatoid Factor 17 <30 IU/mL 12/30/2018 4:00 PM [employer] [facility] Blood BLOOD SPECIMEN / Unknown Lab Venipuncture / Unknown 12/30/2018 2:42 PM [employer] 12/30/2018 3:19 PM [employer] Emma Borges MD LAB - CHEMISTRY ORDERABLES Performing Organization Address [facility] Co de Phone Number [address] [phone] * C-REACTIVE PROTEIN (12/30/2018 2:42 PM [employer]) Pathologist [facility] C-Reactive Protein <0.5 <=0.5 mg/dL 12/30/2018 4:30 PM [employer] [facility] Blood BLOOD SPECIMEN / Unknown Lab Venipuncture / Unknown 12/30/2018 2:42 PM [employer] 12/30/2018 3:18 PM [employer] Emma Borges MD LAB - CHEMISTRY ORDERABLES Performing Organization Address [facility] de Phone Number [address] [phone] * SS-B (SJOGREN'S) ANTIBODY (12/30/2018 2:42 PM [employer]) SS-B LA Antibody 3.3 0.0 - 19.9 Units 01/01/2019 12:51 PM [employer] [facility] Comment: ROWDY Antibody Numeric Result Interpretation: ?<20.0 Units: ??Negative ?20.0 - 39.0 Units: ??Weakly Positive ?>39.0 Units: ??Positive ? Blood BLOOD SPECIMEN / Unknown Lab Venipuncture / Unknown 12/30/2018 2:42 PM [employer] 12/30/2018 3:18 PM [employer] Emma Borges MD LAB - CHEMISTRY ORDERABLES Performing Organization Address [facility] de Phone Number [address] [phone] * SS-A (SJOGREN'S) ANTIBODY (12/30/2018 2:42 PM [employer]) SS-A (Ro) Antibody 3.3 0.0 - 19.9 Units 01/01/2019 12:51 PM [employer] [facility] Comment: ROWDY Antibody Numeric Result Interpretation: ?<20.0 Units: ??Negative ?20.0 - 39.0 Units: ??Weakly Positive ?>39.0 Units: ??Positive ? Blood BLOOD SPECIMEN / Unknown Lab Venipuncture / Unknown 12/30/2018 2:42 PM [employer] 12/30/2018 3:18 PM [employer] Emma Borges MD LAB - CHEMISTRY ORDERABLES Performing Organization Address [facility] Co de Phone Number [address] [phone] * ALDOLASE (12/30/2018 2:42 PM [employer]) Aldolase 8.1 3.3 - 10.3 U/L 01/01/2019 4:09 PM [employer] [facility] ([facility]) Blood BLOOD SPECIMEN / Unknown Lab Venipuncture / Unknown 12/30/2018 2:42 PM [employer] 12/30/2018 3:20 PM [employer] Narrative [facility] ([facility]) - 01/01/2019 4:09 PM [employer] Performed at: ??01 - [facility] [id number] [place], [place] ??[id number] Tin Worker: Raj Price PhD, Phone: ??[phone] Emma Borges MD LAB - CHEMISTRY ORDERABLES Performing Organization Address [facility] de Phone Number [facility] ([facility]) [address] [place] [address] * (ABNORMAL) ERYTHROCYTE SEDIMENTATION RATE (12/30/2018 2:42 PM [employer]) Erythrocyte Sedimentation Rate Westergren 35(H) 0 - 30 MM/HR 12/30/2018 3:49 PM [employer] [facility] Blood BLOOD SPECIMEN / Unknown Lab Venipuncture / Unknown 12/30/2018 2:42 PM [employer] 12/30/2018 3:19 PM [employer] Emma Borges MD LAB - HEMATOLOG Y ORDERABLES Performing Organization Address [facility]/[place] [address], [place] [phone] * (ABNORMAL) CBC WITH DIFFERENTIAL (12/30/2018 2:42 PM [facility]) WBC 11.0(H) 3.5 - 10.5 10? 3 /uL 12/30/2018 3:37 PM [facility] RBC 4.60 3.90 - 5.00 10? 6 /uL 12/30/2018 3:37 PM [facility] Hemoglobin 13.2 12.0 - 15.5 g/dL 12/30/2018 3:37 PM [facility] Hematocrit 42.7 35.0 - 45.0 % 12/30/2018 3:37 PM [facility] MCV 92.8 81.0 - 97.0 fL 12/30/2018 3:37 PM [facility] MCH 28.7 28.0 - 34.0 pg 12/30/2018 3:37 PM [facility] MCHC 30.9(L) 32.0 - 36.0 g/dL 12/30/2018 3:37 PM [facility] Platelet Count 328 150 - 400 10? 3 /uL 12/30/2018 3:37 PM [facility] RDW-SD 44.5 36.0 - 50.0 fL 12/30/2018 3:37 PM [facility] RDW-CV 13.2 11.2 - 14.8 % 12/30/2018 3:37 PM [facility] MPV 10.7 9.3 - 12.8 fL 12/30/2018 3:37 PM [facility] nRBC Absolute 0.00 0 10? 3 /uL 12/30/2018 3:37 PM [facility] nRBC Auto 0.0 0 /100 WBC 12/30/2018 3:37 PM [facility] Neutrophils % 57.7 35.0 - 70.0 % 12/30/2018 3:37 PM [facility] Lymphocytes % 31.2 19.7 - 55.1 % 12/30/2018 3:37 PM [facility] Monocytes % 6.6 3.0 - 15.0 % 12/30/2018 3:37 PM [facility] Eosinophils % 3.5 0.0 - 6.0 % 12/30/2018 3:37 PM [facility] Basophil % 0.7 0.0 - 1.5 % 12/30/2018 3:37 PM [facility] Neutrophils Absolute 6.4 1.6 - 7.0 10? 3 /uL 12/30/2018 3:37 PM [facility] Lymphocyte Absolute 3.4(H) 0.8 - 2.9 10? 3 /uL 12/30/2018 3:37 PM [facility] Monocytes Absolute 0.73(H) 0.14 - 0.66 10? 3 /uL 12/30/2018 3:37 PM [facility] Eosinophils Absolute 0.39 0.00 - 0.45 10? 3 /uL 12/30/2018 3:37 PM [facility] Basophils Absolute 0.08(H) 0.00 - 0.06 10? 3 /uL 12/30/2018 3:37 PM [facility] Immature Granulocytes % 0.3 0.0 - 1.0 % 12/30/2018 3:37 PM [facility] Blood BLOOD SPECIMEN / Unknown Lab Venipuncture / Unknown 12/30/2018 2:42 PM [employer] 12/30/2018 3:19 PM [employer] Emma Borges MD LAB - HEMATOLOG Y ORDERABLES Performing Organization Address [facility]/State/[facility] Co de Phone Number [address] [phone] * (ABNORMAL) COMPREHENSIVE METABOLIC PANEL (12/30/2018 2:42 PM [employer]) BUN 21 7 - 26 mg/dL 12/30/2018 3:54 PM [facility] Creatinine 0.9 0.6 - 1.2 mg/dL 12/30/2018 3:54 PM [facility] Sodium 141 136 - 145 mmol/L 12/30/2018 3:54 PM [facility] Potassium 4.4 3.5 - 4.5 mmol/L 12/30/2018 3:54 PM [facility] Chloride 105 98 - 107 mmol/L 12/30/2018 3:54 PM [facility] CO2 25 22 - 29 mmol/L 12/30/2018 3:54 PM [facility] Glucose 174(H) 70 - 115 mg/dL 12/30/2018 3:54 PM [facility] Calcium 10.8(H) 8.4 - 10.2 mg/dL 12/30/2018 3:54 PM [facility] Protein Total 7.5 6.0 - 8.3 g/dL 12/30/2018 3:54 PM [facility] Albumin 3.8 3.4 - 5.0 g/dL 12/30/2018 3:54 PM [facility] Bilirubin Total 0.2 0.2 - 1.2 mg/dL 12/30/2018 3:54 PM [facility] Alkaline Phosphatase 73 40 - 150 Units/L 12/30/2018 3:54 PM [facility] ALT 38 0 - 55 Units/L 12/30/2018 3:54 PM [facility] AST 39(H) 5 - 34 Units/L 12/30/2018 3:54 PM [facility] Anion Gap 15 8 - 18 12/30/2018 3:54 PM [facility] BUN/Creatinine Ratio 23 7 - 23 12/30/2018 3:54 PM [facility] Osmolality Calculated 299 270 - 300 mOsm/kg 12/30/2018 3:54 PM [facility] Albumin/Globulin Ratio 1.0(L) 1.1 - 2.3 12/30/2018 3:54 PM [facility] eGFR >60 >60 mL/min/1.7 3 m2 12/30/2018 3:54 PM [facility] Blood BLOOD SPECIMEN / Unknown Lab Venipuncture / Unknown 12/30/2018 2:42 PM [employer] 12/30/2018 3:19 PM [employer] Emma Borges MD LAB - CHEMISTRY ORDERABLES [address] [phone] * LDH BLOOD (12/30/2018 2:42 PM [employer]) LDH Total 188 125 - 243 Units/L 12/30/2018 3:54 PM [facility] Blood BLOOD SPECIMEN / Unknown Lab Venipuncture / Unknown 12/30/2018 2:42 PM [employer] 12/30/2018 3:19 PM [employer] Emma Borges MD LAB - CHEMISTRY ORDERABLES [facility] [address] [place] [address], [facility] [phone] * CK BLOOD (12/30/2018 2:42 PM [employer]) CK Total 126 30 - 200 Units/L 12/30/2018 3:54 PM [employer] [facility] Blood BLOOD SPECIMEN / Unknown Lab Venipuncture / Unknown 12/30/2018 2:42 PM [employer] 12/30/2018 3:19 PM [employer] Emma Borges MD LAB - CHEMISTRY ORDERABLES Performing Organization Address [facility]/[place] [address], [facility] [phone] Care Teams Therapeutic Recreation Specialist Relationship Specialty Start Date End Date Vilma Herrera PA-C [address] [place] [address] [phone] PCP - General 01/05/19
--- OUTSIDE RECORDS SUMMARY | 2024-03-03 15:28 | XMS_ITS | Encounter Summary ---
Author Organization [facility] Address [address] [place] [address] Phone Care Team Providers Care Soft Work Wrapper Layer And Examiner Name Role Phone Giselle Lamas Primary Care Provider [phone] Reason for Visit * Reason Comments Medication Refill Encounter Details Date Type Department Care Team (Late st Contact Info) Description 11/08/2019 Refill [facility] - Endocrinology - [place] [address] [place] [phone] Steve Givens MD [address] [phone] Medication Refill Social History Tobacco Use Types [...] encounter Miscellaneous Notes * Telephone Encounter - Noy Myles RN - 11/08/2019 1:18 PM CDT Pharmacy notified via [employer]ict[employer]rev[employer] documented in this encounter Plan of Treatment Not on file documented as of this encounter Visit Diagnoses Not on filedocumented in this encounter Care Teams Soft Work Wrapper Layer And Examiner Relationship Specialty Start Date End Date Giselle Lamas PAC [address] [place] [address] PCP - General Physician Community Resource Consultant 08/01/17 documented as of this encounter
--- OUTSIDE RECORDS SUMMARY | 2024-03-03 15:28 | XMS_ITS | Encounter Summary ---
Author Organization [facility] Health Address [address] [place] [address] Care Team Providers Care Tailor Men'S Ready To Wear Name Role Phone Elen Hathaway APRN-EMBEDDED SYSTEMS DEVELOPER Primary Care P lm Encounter Details Date Type Department Care Team (Latest Contact Info) Description 12/30/2018 2:35 PM HEAT TREAT PULLER - 12/30/2018 2:39 PM [facility] Hospital Encounter [facility] DIAGNOSTIC RAD OP [address] [place] [id number] Emma Borges MD [address] [facility] 2L [place] [address] Discharge Disposition: Home or Self Care Social History Tobacco Use Types Packs/Day Years [...] on file documented as of this encounter Medications at Time of Discharge Medication Sig Dispensed Refills Start Date End Date ACCU-CHEK MULTICLIX LANCETS MISC Check blood sugar four times a day or as directed 07/04/2017 ASPIRIN LOW DOSE 81 MG Take 81 mg by mouth once daily 5 12/04/2018 atorvastatin (LIPITOR) 80 MG tablet Take 80 mg by mouth every evening 09/29/2018 blood glucose monitoring device (ONE TOUCH ULTRA) device Test 4x daily. 08/01/2017 blood glucose test strip Test 4 times daily. 08/01/2017 CALCIUM 600-D 600-400 MG-UNIT Take 1 tablet by mouth 2 times daily 12/29/2018 cetirizine (ZYRTEC) 10 MG tablet Take 10 mg by mouth once daily 8 12/05/2018 citalopram (CELEXA) 20 MG tablet Take 20 mg by mouth once daily 2 12/09/2018 clopidogrel (PLAVIX) 75 MG tablet Take 75 mg by mouth once daily 5 12/04/2018 DULoxetine (CYMBALTA) 30 MG capsule Take 30 mg by mouth 2 times daily estradiol (ESTRACE) 0.5 MG tablet Take 0.5 mg by mouth once daily 10/11/2018 hydroCHLOROthiazide (MICROZIDE) 12.5 MG capsule Take 12.5 mg by mouth once daily 2 12/05/2018 insulin glargine (LANTUS) pen Inject 32 Units subcutaneously 2 times daily 08/05/2018 insulin lispro (HUMALOG) 100 UNIT/ML vial 50 units before each meal. Correctional factor insulin of 1:10 if > 140 mg/dL. Up to 180 units per day 10/20/2018 Insulin Pen Needle (PEN NEEDLES) 32G X 6 MM MISC 4 times a day 06/18/2018 insulin syringe-needle (BD ULTRAFINE II) 31G X 5/16 1 ML syringe Twice a day 07/13/2018 lisinopril (PRINIVIL; ZESTRIL) 20 MG tablet Take 20 mg by mouth once daily 2 12/17/2018 metFORMIN (GLUCOPHAGE) 1000 MG tablet Take 1,000 mg by mouth 2 times daily 10/27/2018 Multiple Vitamin (DAILY-SUZANNE) TABS Take 1 tablet by mouth once daily 12/27/2018 norethindrone (AYGESTIN) 5 MG tablet Take 5 mg by mouth once daily 4 12/15/2018 nystatin (MYCOSTATIN) 138149 UNIT/GM cream Apply to affected area 2 times daily 4 09/19/2018 raNITIdine (ZANTAC) 150 MG tablet Take 150 mg by mouth 2 times daily zolpidem (AMBIEN) 10 MG tablet Take 10 mg by mouth nightly as needed documented as of this encounter Plan of Treatment Not on file documented as of this encounter Procedures Procedure Name Priority Date/Time Associated Diagnosis Comments XR FOOT RIGHT 2VW Routine 12/30/2018 3:1 0 PM HEAT TREAT PULLER Arthralgia, unspecified joint Dry eye Sicca, unspecified type (HCC) XR FOOT LEFT 2VW Routine 12/30/2018 3:10 PM HEAT TREAT PULLER Arthralgia, unspecified joint Dry eye Sicca, unspecified type (HCC) XR HAND RIGHT 2VW Routine 12/30/2018 3:1 0 PM HEAT TREAT PULLER Arthralgia, unspecified joint Dry eye Sicca, unspecified type (HCC) XR HAND LEFT 2VW Routine 12/30/2018 3:10 PM HEAT TREAT PULLER Arthralgia, unspecified joint Dry eye Sicca, unspecified type (HCC) documented in this encounter Results * XR FOOT LEFT 2VW (12/30/2018 3:10 PM HEAT TREAT PULLER) Anatomical Region Laterality Modality Ankle / Foot Radiographic Tammi ging 12/30/2018 3:37 PM HEAT TREAT PULLER Impressions 12/30/2018 3:48 PM HEAT TREAT PULLER IMPRESSION: 1. Right hand: No arthritis. 2. Left hand: Mild degenerative change at the fifth digit distal interphalangeal joint. 3. Right and left feet: No arthritis. Dictated by Kenroy Paul MD (vice president corporate communications). I, Dr. MC POSADA MD have personally reviewed and interpreted this examination/study. This report was electronically signed by MC POSADA MD ??on 12/30/2018 3:48 PM . Narrative 12/30/2018 3:48 PM HEAT TREAT PULLER EXAMINATION: 1. XR HAND RIGHT 2VW 2. [...] Dictated by Kenroy Paul MD (vice president corporate communications). Dr. MC Sanches MD have personally reviewed and interpreted this examination/study. This report was electronically signed by MC POSADA MD on12/30/2018 3:48 PM . Emma Shanna Borges MD DIAGNOSTIC IMAG ING ORDERABLES * XR FOOT RIGHT 2VW (12/30/2018 3:10 PM HEAT TREAT PULLER) Anatomical Region Laterality Modality Ankle / Foot Radiographic Tammi ging 12/30/2018 3:37 PM HEAT TREAT PULLER Impressions 12/30/2018 3:48 PM HEAT TREAT PULLER IMPRESSION: 1. Right hand: No arthritis. 2. Left hand: Mild degenerative change at the fifth digit distal interphalangeal joint. 3. Right and left feet: No arthritis. Dictated by Kenroy Paul MD (vice president corporate communications). Dr. MC Sanches MD have personally reviewed and interpreted this examination/study. This report was electronically signed by MC POSADA MD ??on 12/30/2018 3:48 PM . Narrative 12/30/2018 3:48 PM HEAT TREAT PULLER EXAMINATION: 1. XR HAND RIGHT 2VW 2. [...] Dictated by Kenroy Paul MD (vice president corporate communications). I, Dr. MC POSADA MD have personally reviewed and interpreted this examination/study. This report was electronically signed by MC POSADA MD on12/30/2018 3:48 PM . Emma Borges MD DIAGNOSTIC IMAG ING ORDERABLES * XR HAND RIGHT 2VW (12/30/2018 3:10 PM HEAT TREAT PULLER) Anatomical Region Laterality Modality Wrist / Hand Radiographic Tammi ging 12/30/2018 3:37 PM HEAT TREAT PULLER Impressions 12/30/2018 3:48 PM HEAT TREAT PULLER IMPRESSION: 1. Right hand: No arthritis. 2. Left hand: Mild degenerative change at the fifth digit distal interphalangeal joint. 3. Right and left feet: No arthritis. Dictated by Kenroy Paul MD (vice president corporate communications). I, Dr. MC POSADA MD have personally reviewed and interpreted this examination/study. This report was electronically signed by MC POSADA MD ??on 12/30/2018 3:48 PM . Narrative 12/30/2018 3:48 PM HEAT TREAT PULLER EXAMINATION: 1. XR HAND RIGHT 2VW 2. [...] Dictated by Kenroy Paul MD (vice president corporate communications). Dr. MC Sanches MD have personally reviewed and interpreted this examination/study. This report was electronically signed by MC POSADA MD on12/30/2018 3:48 PM . Emma Borges MD DIAGNOSTIC IMAG ING ORDERABLES * XR HAND LEFT 2VW (12/30/2018 3:10 PM HEAT TREAT PULLER) Anatomical Region Laterality Modality Wrist / Hand Radiographic Tammi ging 12/30/2018 3:37 PM HEAT TREAT PULLER Impressions 12/30/2018 3:48 PM HEAT TREAT PULLER IMPRESSION: 1. Right hand: No arthritis. 2. Left hand: Mild degenerative change at the fifth digit distal interphalangeal joint. 3. Right and left feet: No arthritis. Dictated by Kenroy Paul MD (vice president corporate communications). Dr. MC Sanches MD have personally reviewed and interpreted this examination/study. This report was electronically signed by MC POSADA MD ??on 12/30/2018 3:48 PM . Narrative 12/30/2018 3:48 PM HEAT TREAT PULLER EXAMINATION: 1. XR HAND RIGHT 2VW 2. [...] Dictated by Kenroy Paul MD (vice president corporate communications). I, Dr. MC POSADA MD have personally reviewed and interpreted this examination/study. This report was electronically signed by MC POSADA MD on12/30/2018 3:48 PM . Emma Borges MD DIAGNOSTIC IMAG ING ORDERABLES documented in this encounter Visit Diagnoses Diagnosis Arthralgia, unspecified joint Dry eye Sicca, unspecified type (HCC) documented in this encounter Care Teams Tailor Men'S Ready To Wear Relationship Specialty Start Date End Date Elen Hathaway, BOX SHOOK PATCHER-EMBEDDED SYSTEMS DEVELOPER [address] [place] [id number] PCP - General 09/04/18 01/04/19 documented as of this encounter
--- OUTSIDE RECORDS SUMMARY | 2024-03-03 15:28 | XMS_ITS | Encounter Summary ---
Author Organization [facility] Health Address [address] [place] [address] Care Team Providers Care Multi Slide Machine Tender Name Role Phone Vilma Herrera PA-C Primary Care Provider + Reason for Visit * Reason Comments Follow-up Encounter Details Date Type Department Care Team (Late st Contact Info) Description 04/14/2019 2:30 PM WET PROCESS OPERATOR Office Visit [facility] [address] [place] [address] Emma Borges MD [address] [place] [address] Trigger finger, unspecified finger, unspecified laterality (Primary Dx) Social History Tobacco Use Types Packs/Day Years [...] Comments Blood Pressure 120/64 04/14/2019 3:23 PM WET PROCESS OPERATOR Pulse 70 04/14/2019 3:23 PM WET PROCESS OPERATOR Temperature 36.9 ??C (98.4 ??F) 04/14/2019 3:23 PM CS T Respiratory Rate - - Oxygen Saturation - - Inhaled Oxygen Concentration - - Weight 110.2 kg (243 lb) 04/14/2019 3:23 PM WET PROCESS OPERATOR Height 162.6 cm (5' 4 ) 04/14/2019 3:23 PM WET PROCESS OPERATOR Body Mass Index 41.71 04/14/2019 3:23 PM WET PROCESS OPERATOR documented in this encounter Patient Instructions * Patient Instructions* Emma Borges MD - 04/14/2019 4:20 PM WET PROCESS OPERATOR We saw you today for follow up of arthritis. 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 Try to cut down on high purine foods in your diet because your uric acid was a little high which can lead to gout. If you want to get trigger finger injections, we could work you in on 04/23 in the afternoon. Otherwise, follow up as needed. Thank you! If you need to change or cancel your Rheumatology appointment - At the [facility]'s Office Building at [address] [place] [address], [address], call [phone] If you need a refill request, have your pharmacy fax a request to [phone] If you need to leave a message for Dr. Borges, you can send her an electronic message via [employer] or leave a voicemail at [phone]. Her office FAX number is [phone]. For after hours emergency only, you can call the [facility] double needle operator at [phone] and ask for the Transportation Design Engineer personal secretary to be paged. PROCESS OPERATOR documented in this encounter Progress Notes * Emma Borges MD - 04/20/2019 2:21 PM CST [facility] Rheumatology Followup Clinic Visit Referring Physician: No referring provider defined for this encounter. PCP: Vilma Herrera PA-C Chief Complaint Patient presents with ??? Follow-up HPI: Ms. Lopez is a 53 year old female who presents for first follow up of joint pain. Since her initial visit in December, she has been about the same. She is still having some triggering in her right second and fourth digits as well as there left fourth digit. It is painful when she gets the trigger fingers. She is also still having numbess/pain/tingling associated with carpal tunnel. She is unsure if she would get surgery for it. She has hand stiffness as well as pain in her thumbs. She has not had other new symptoms. Denies swelling or episodes that sound like gout flares. ROS: General: -fatigue, -fever, -wt loss/gain, daily [...] -photosensitivity Neuro: -TIRADO, +paresthesias Psych: Mood is generally good, -depression/anxiety ROS otherwise negative Past Medical History: Diagnosis Date ??? Anxiety ??? Depression ??? Diabetes mellitus ??? Hypertension ??? Peripheral artery disease Social History Tobacco Use ??? Smoking status: Current Some Day Smoker Packs/day: 0.75 ??? Smokeless tobacco: Never Used ??? Tobacco comment: working with PCP for [facility] 12/2018 Substance Use Topics ??? Alcohol use: Never Frequency: Never ??? Drug use: Never Review of Family History Problem Relation Name Age of Onset ??? Coronary Artery Disease Mother ??? Arthritis - Osteo Mother ??? Cancer - Lung Mother ??? Diabetes - Type 2 Father Current Outpatient Medications Medication Sig Dispense Refill ??? ACCU-CHEK MULTICLIX LANCETS [facility] Check blood sugar four times a day [...] mg by mouth once daily 5 ??? Diclofenac Sodium (DICLOFENAC IN PLO) 4 % cmp gel Apply to affected area 2 times daily 30 g 2 ??? DULoxetine (CYMBALTA) 30 MG capsule Take [...] mouth once daily 4 ??? nystatin (MYCOSTATIN) 030030 UNIT/GM cream Apply to affected area 2 times daily 4 ??? raNITIdine (ZANTAC) 150 MG tablet Take 150 mg by mouth 2 times daily ??? zolpidem (AMBIEN) 10 MG tablet Take 10 mg by mouth nightly as needed No current facility-administered medications for this visit. Nsaids and Codeine Physical Exam: BP 120/64 Pulse 70 Temp 98.4 ??F (36.9 ??C) (Oral) Ht 5' 4 (1.626 m) Wt 243 lb (110.2 kg) BMI 41.71 kg/m2 General: Alert, oriented, NAD, appears stated age Skin: Skin color, texture, turgor normal. No rashes or lesions HEENT: Normocephalic, without obvious abnormality, atraumatic conjunctivae/corneas clear. EOMI, no oral or nasal ulcers, moist mucus membranes, supple neck Lymphatic: No cervical, supraclavicular adenopathy Back: Symmetric, normal curvature Chest/Lungs: Clear to auscultation bilaterally, normal respiratory effort Heart: RRR, normal S1 and S2, no murmur, no rub Abdomen: Soft, non-tender. Bowel sounds normal. No masses, no organomegaly Neurologic: Grossly normal cranial nerves Musculoskeletal Exam: No swelling Early Heberden's nodes Mild knee crepitus Mild thickening of flexor tendons in hands Labs: Reviewed, including those as noted below No results found for this or any previous visit (from the past 2352 hour(s)). Labs performed 12/2018: Normal CMP except mild elevation AST Normal muscle enzymes ESR 35 Negative RF, anti CCP, SSA, and SSB Uric Acid 7.3 Diagnostics/health maintenance: XRs Bilateral Hands and Feet 12/2018: IMPRESSION: 1. Right hand: No arthritis. 2. Left hand: Mild degenerative change at the fifth digit distal interphalangeal joint. 3. Right and left feet: No arthritis. Assessment/ Plan: Ms. Lopez is a 53 year old female who returns for first follow up/results review for arthralgia. Workup and exam consistent with OA, Carpal Tunnel, and trigger fingers. We offered steroid injections for trigger fingers, but she is reluctant to have this done at this point in time. She was noted to have somewhat elevated uric acid, but by history she does not have symptoms consistent with gout. Wedid discuss dietary changes to reduce purine consumption. 1. May try topical voltaren for arthralgia, not a candidate for systemic NSAIDs due to history of peripheral vascular disease 2. If she wishes, can schedule f/u for injections for trigger fingers RTC prn Emma Borges MD Department of Rheumatology The following were ordered during this visit: Orders Placed This Encounter ??? Diclofenac Sodium (DICLOFENAC IN PLO) 4 % cmp gel Sig: Apply to affected area 2 times daily Dispense: 30 g Refill: 2 PROCESS OPERATOR documented in this encounter Plan of Treatment Not on file documented as of this encounter Visit Diagnoses Diagnosis Trigger finger, unspecified finger, unspecified laterality- Primary documented in this encounter Care Teams Multi Slide Machine Tender Relationship Specialty Start Date End Date Vilma Herrera PA-C [address] [place] [address] PCP - General 01/05/19 documented as of this encounter
--- OUTSIDE RECORDS SUMMARY | 2024-03-03 15:28 | XMS_ITS | Encounter Summary ---
Author Organization [facility] Address [address] [facility] [place] [address] Phone Care Team Providers Care Creative Engagement Director Name Role Phone Giselle Lamas JOSSELIN Primary Care Provider [phone] Reason for Visit * Reason Onset Date Comments Medication Refill 05/07/2019 Encounter Details Date Type Department Care Team (Late st Contact Info) Description 05/07/2019 Refill [facility] - Endocrinology - [address] [address] [place] [phone] Steve Givens MD [address] [phone] Medication Refill Social History Tobacco Use Types [...] Telephone Encounter - Steve Givens MD - 05/07/2019 11:52 AM CDT Rx sent * Telephone Encounter - Noy Myles RN - 05/07/2019 10:04 AM CDT Refill request received. Order pended. Requested Prescriptions Pending Prescriptions Disp Refills ??? insulin lispro (ADMELOG) 100 UNIT/ML Solution 60 mL 2 Si units before each meal. Correctional factor insulin of 1:10 if > 140 mg/dL. Up to 180 units per day Next appt: 05/25/2019 documented in this encounter Plan of Treatment Not on file documented as of this encounter Visit Diagnoses Not on filedocumented in this encounter Care Teams Creative Engagement Director Relationship Specialty Start Date End Date Giselle Lamas PAC [address] [place] [address] PCP - General Physician Java Web Services Developer 08/01/17 documented as of this encounter
--- OUTSIDE RECORDS SUMMARY | 2024-03-03 15:28 | XMS_ITS | Encounter Summary ---
Author Organization [facility] Address [address] [place] [address] Phone Care Team Providers Care Plastic Parts Designer Name Role Phone Giselle Lamas JOSSELIN Primary Care Provider [phone] Reason for Visit * Reason Comments Medication Refill Encounter Details Date Type Department Care Team (Late st Contact Info) Description 09/09/2019 Refill [facility] - Endocrinology [facility] [address] [place] [phone] Steve Givens MD [address] [phone] Medication Refill Social History Tobacco Use Types [...] Telephone Encounter - Eunice Ortiz RN - 09/10/2019 10:49 AM CDT See documentation from 08/16/19. * Telephone Encounter - Steve Givens MD - 09/09/2019 4:19 PM CDT Rx of NovoLog sent ?? Please advise her to get Rx from her PCP or a new double needle stitcher if she still has [employer] insurance documented in this encounter Plan of Treatment Not on file documented as of this encounter Visit Diagnoses Not on filedocumented in this encounter Care Teams Plastic Parts Designer Relationship Specialty Start Date End Date Giselle Lamas PAC [address] [place] [address] PCP - General Physician Firmware Test Engineer 08/01/17 documented as of this encounter
--- OUTSIDE RECORDS SUMMARY | 2024-03-03 15:28 | XMS_ITS | Encounter Summary ---
Author Organization [facility] Health Address [address] [facility] [address] [place] [address] Care Team Providers Care [employer] Principal Name Role Phone Elen Hathaway APRN-MANAGER EMERGENCY Primary Care P lm Encounter Details Date Type Department Care Team (Latest Contact Info) Description 12/30/2018 2:40 PM DEVELOPER ANALYST - 12/30/2018 11:59 PM [facility] [[email or web address] Hospital Encounter [facility] DRAW STATION [address] [place] [address] Emma Borges MD [address] [place] [address] Discharge Disposition: Home or Self Care Social [...] mouth once daily 4 12/15/2018 nystatin (MYCOSTATIN) [id number] UNIT/GM cream Apply to affected area 2 times daily 4 09/19/2018 raNITIdine (ZANTAC) 150 MG tablet Take 150 mg by mouth 2 times daily zolpidem (AMBIEN) 10 MG tablet Take 10 mg by mouth nightly as needed documented as of this encounter Plan of Treatment Not on file documented as of this encounter Procedures Procedure Name Priority Date/Time Associated Diagnosis Comments CYCLIC CITRUL PEPTIDE ANTIBODY IGG/IGA (CCP) Routine 12/30/2018 2:42 PM DEVELOPER ANALYST Arthralgia, unspecified joint Dry eye Sicca, unspecified type (HCC) URIC ACID BLOOD Routine 12/30/2018 2:42 PM DEVELOPER ANALYST Arthralgia, unspecified joint Dry eye Sicca, unspecified type (HCC) RHEUMATOID FACTOR BLOOD QUANTITATIVE Routine 12/30/2018 2:42 PM DEVELOPER ANALYST Arthralgia, unspecified joint Dry eye Sicca, unspecified type (HCC) C-REACTIVE PROTEIN Routine 12/30/2018 2: 42 PM DEVELOPER ANALYST Arthralgia, unspecified joint Dry eye Sicca, unspecified type (HCC) SS-B (SJOGREN'S) ANTIBODY Routine 12/30/2018 2:42 PM DEVELOPER ANALYST Arthralgia, unspecified joint Dry eye Sicca, unspecified type (HCC) SS-A (SJOGREN'S) ANTIBODY Routine 12/30/2018 2:42 PM DEVELOPER ANALYST Arthralgia, unspecified joint Dry eye Sicca, unspecified type (HCC) ALDOLASE Routine 12/30/2018 2:42 PM DEVELOPER ANALYST Arthralgia, unspecified joint Dry eye Sicca, unspecified type (HCC) ERYTHROCYTE SEDIMENTATION RATE Routine 12/30/2018 2:42 PM DEVELOPER ANALYST Arthralgia, unspecified joint Dry eye Sicca, unspecified type (HCC) CBC W AUTO DIFFERENTIAL Routine 12/30/2018 2:42 PM DEVELOPER ANALYST Arthralgia, unspecified joint Dry eye Sicca, unspecified type (HCC) COMPREHENSIVE METABOLIC PANEL Routine 12/30/2018 2:42 PM DEVELOPER ANALYST Arthralgia, unspecified joint Dry eye Sicca, unspecified type (HCC) LDH BLOOD Routine 12/30/2018 2:42 PM DEVELOPER ANALYST Arthralgia, unspecified joint Dry eye Sicca, unspecified type (HCC) CK BLOOD Routine 12/30/2018 2:42 PM DEVELOPER ANALYST Arthralgia, unspecified joint Dry eye Sicca, unspecified type (HCC) documented in this encounter Results * SS-B (SJOGREN'S) ANTIBODY (12/30/2018 2:42 PM DEVELOPER ANALYST) SS-B LA Antibody 3.3 0.0 - 19.9 Units 01/01/2019 12:51 PM DEVELOPER ANALYST [facility] Comment: ROWDY Antibody Numeric Result Interpretation: ?<20.0 Units: ??Negative ?20.0 - 39.0 Units: ??Weakly Positive ?>39.0 Units: ??Positive ? Blood BLOOD SPECIMEN / Unknown Lab Venipuncture / Unknown 12/30/2018 2:42 PM DEVELOPER ANALYST 12/30/2018 3:18 PM DEVELOPER ANALYST Emma Borges MD LAB - CHEMISTRY ORDERABLES Performing Organization Address City/State/[facility] Co de Phone Number [address] [phone] * SS-A (SJOGREN'S) ANTIBODY (12/30/2018 2:42 PM DEVELOPER ANALYST) Pathologist [facility] SS-A (Ro) Antibody 3.3 0.0 - 19.9 Units 01/01/2019 12:51 PM DEVELOPER ANALYST [facility] Comment: ROWDY Antibody Numeric Result Interpretation: ?<20.0 Units: ??Negative ?20.0 - 39.0 Units: ??Weakly Positive ?>39.0 Units: ??Positive ? Blood BLOOD SPECIMEN / Unknown Lab Venipuncture / Unknown 12/30/2018 2:42 PM DEVELOPER ANALYST 12/30/2018 3:18 PM DEVELOPER ANALYST Emma Borges MD LAB - CHEMISTRY ORDERABLES Performing Organization Address [facility]/ZIP Co de Phone Number [address] [phone] * RHEUMATOID FACTOR BLOOD QUANTITATIVE (12/30/2018 2:42 PM DEVELOPER ANALYST) Rheumatoid Factor 17 <30 IU/mL 12/30/2018 4:00 PM DEVELOPER ANALYST [facility] Blood BLOOD SPECIMEN / Unknown Lab Venipuncture / Unknown 12/30/2018 2:42 PM DEVELOPER ANALYST 12/30/2018 3:19 PM DEVELOPER ANALYST Emma Borges MD LAB - CHEMISTRY ORDERABLES Performing Organization Address [facility] de Phone Number [address] [phone] * CYCLIC CITRUL PEPTIDE ANTIBODY IGG/IGA (CCP) (12/30/2018 2:42 PM DEVELOPER ANALYST) CCP Antibodies IgG/IgA 6 0 - 19 units 01/01/2019 10:06 PM DEVELOPER ANALYST [facility] ([facility]) Comment: ?Negative ? <20 ?Weak positive ?20 - 39 ?Moderate positive ??40 - 59 ?Strong positive ?>59 Blood BLOOD SPECIMEN / Unknown Lab Venipuncture / Unknown 12/30/2018 2:42 PM DEVELOPER ANALYST 12/30/2018 3:19 PM DEVELOPER ANALYST Narrative [facility] ([facility]) - 01/01/2019 10:06 PM DEVELOPER ANALYST Performed at: ??01 - [facility] [address] ??[id number] Reference And Instruction Librarian: Raoul Herrera MD, Phone: ??[phone] Emma Borges MD LAB - SEROLOGY ORDERABLES [facility] ([facility]) [address] [place] [address] * (ABNORMAL) URIC ACID BLOOD (12/30/2018 2:42 PM DEVELOPER ANALYST) Uric Acid 7.3(H) 2.6 - 7.2 mg/dL 12/30/2018 3:56 PM DEVELOPER ANALYST [facility] Blood BLOOD SPECIMEN / Unknown Lab Venipuncture / Unknown 12/30/2018 2:42 PM DEVELOPER ANALYST 12/30/2018 3:19 PM DEVELOPER ANALYST Emma Borges MD LAB - CHEMISTRY ORDERABLES [address] [phone] * LDH BLOOD (12/30/2018 2:42 PM DEVELOPER ANALYST) LDH Total 188 125 - 243 Units/L 12/30/2018 3:54 PM DEVELOPER ANALYST [facility] Blood BLOOD SPECIMEN / Unknown Lab Venipuncture / Unknown 12/30/2018 2:42 PM DEVELOPER ANALYST 12/30/2018 3:19 PM DEVELOPER ANALYST Emma Borges MD LAB - CHEMISTRY ORDERABLES [address] [phone] * CK BLOOD (12/30/2018 2:42 PM DEVELOPER ANALYST) CK Total 126 30 - 200 Units/L 12/30/2018 3:54 PM DEVELOPER ANALYST [facility] Blood BLOOD SPECIMEN / Unknown Lab Venipuncture / Unknown 12/30/2018 2:42 PM DEVELOPER ANALYST 12/30/2018 3:19 PM DEVELOPER ANALYST Emma Borges MD LAB - CHEMISTRY ORDERABLES [facility] [address] [place] [address] * (ABNORMAL) CBC WITH DIFFERENTIAL (12/30/2018 2:42 PM DEVELOPER ANALYST) WBC 11.0(H) 3.5 - 10.5 10? 3 /uL 12/30/2018 3:37 PM [facility] RBC 4.60 3.90 - 5.00 10? 6 /uL 12/30/2018 3:37 PM [facility] Hemoglobin 13.2 12.0 - 15.5 g/dL 12/30/2018 3:37 PM [facility] Hematocrit 42.7 35.0 - 45.0 % 12/30/2018 3:37 PM [facility] MCV 92.8 81.0 - 97.0 fL 12/30/2018 3:37 PM [facility] MCH 28.7 28.0 - 34.0 pg 12/30/2018 3:37 PM [facility] MCHC 30.9(L) 32.0 - 36.0 g/dL 12/30/2018 3:37 PM [facility] Platelet Count 328 150 - 400 10? 3 /uL 12/30/2018 3:37 PM [facility] RDW-SD 44.5 36.0 - 50.0 fL 12/30/2018 3:37 PM [facility] RDW-CV 13.2 11.2 - 14.8 % 12/30/2018 3:37 PM [facility] MPV 10.7 9.3 - 12.8 fL 12/30/2018 3:37 PM [facility] nRBC Absolute 0.00 0 10? 3 /uL 12/30/2018 3:37 PM [facility] nRBC Auto 0.0 0 /100 WBC 12/30/2018 3:37 PM [facility] Neutrophils % 57.7 35.0 - 70.0 % 12/30/2018 3:37 PM [facility] Lymphocytes % 31.2 19.7 - 55.1 % 12/30/2018 3:37 PM [facility] Monocytes % 6.6 3.0 - 15.0 % 12/30/2018 3:37 PM [facility] Eosinophils % 3.5 0.0 - 6.0 % 12/30/2018 3:37 PM [facility] Basophil % 0.7 0.0 - 1.5 % 12/30/2018 3:37 PM [facility] Neutrophils Absolute 6.4 1.6 - 7.0 10? 3 /uL 12/30/2018 3:37 PM [facility] Lymphocyte Absolute 3.4(H) 0.8 - 2.9 10? 3 /uL 12/30/2018 3:37 PM [facility] Monocytes Absolute 0.73(H) 0.14 - 0.66 10? 3 /uL 12/30/2018 3:37 PM [facility] Eosinophils Absolute 0.39 0.00 - 0.45 10? 3 /uL 12/30/2018 3:37 PM [facility] Basophils Absolute 0.08(H) 0.00 - 0.06 10? 3 /uL 12/30/2018 3:37 PM [facility] Immature Granulocytes % 0.3 0.0 - 1.0 % 12/30/2018 3:37 PM [facility] Blood BLOOD SPECIMEN / Unknown Lab Venipuncture / Unknown 12/30/2018 2:42 PM DEVELOPER ANALYST 12/30/2018 3:19 PM DEVELOPER ANALYST Emma Borges MD LAB - HEMATOLOG Y ORDERABLES Performing Organization Address City/State/[facility] Co de Phone Number [address] [phone] * ALDOLASE (12/30/2018 2:42 PM DEVELOPER ANALYST) Aldolase 8.1 3.3 - 10.3 U/L 01/01/2019 4:09 PM DEVELOPER ANALYST [facility] ([facility]) Blood BLOOD SPECIMEN / Unknown Lab Venipuncture / Unknown 12/30/2018 2:42 PM DEVELOPER ANALYST 12/30/2018 3:20 PM DEVELOPER ANALYST Narrative [facility] ([facility]) - 01/01/2019 4:09 PM DEVELOPER ANALYST Performed at: ??01 - [facility] [address] [place], [place] ??[id number] Reference And Instruction Librarian: Raj Price PhD, Phone: ??[phone] Emma Borges MD LAB - CHEMISTRY ORDERABLES Performing Organization Address City/[facility]/ZIP Co de Phone Number [facility] ([facility]) [address] [place] [address] * (ABNORMAL) ERYTHROCYTE SEDIMENTATION RATE (12/30/2018 2:42 PM DEVELOPER ANALYST) Erythrocyte Sedimentation Rate Westergren 35(H) 0 - 30 MM/HR 12/30/2018 3:49 PM DEVELOPER ANALYST [facility] Blood BLOOD SPECIMEN / Unknown Lab Venipuncture / Unknown 12/30/2018 2:42 PM DEVELOPER ANALYST 12/30/2018 3:19 PM DEVELOPER ANALYST Emma Borges MD LAB - HEMATOLOG Y ORDERABLES Performing Organization Address City/[facility]/ZIP Co de Phone Number [address] [phone] * C-REACTIVE PROTEIN (12/30/2018 2:42 PM DEVELOPER ANALYST) C-Reactive Protein <0.5 <=0.5 mg/dL 12/30/2018 4:30 PM DEVELOPER ANALYST [facility] Blood BLOOD SPECIMEN / Unknown Lab Venipuncture / Unknown 12/30/2018 2:42 PM DEVELOPER ANALYST 12/30/2018 3:18 PM DEVELOPER ANALYST Emma Borges MD LAB - CHEMISTRY ORDERABLES Performing Organization Address [facility]/ZIP Co de Phone Number [address] [phone] * (ABNORMAL) COMPREHENSIVE METABOLIC PANEL (12/30/2018 2:42 PM DEVELOPER ANALYST) BUN 21 7 - 26 mg/dL 12/30/2018 3:54 PM [facility] Creatinine 0.9 0.6 - 1.2 mg/dL 12/30/2018 3:54 PM [facility] Sodium 141 136 - 145 mmol/L 12/30/2018 3:54 PM [facility] Potassium 4.4 3.5 - 4.5 mmol/L 12/30/2018 3:54 PM [facility] Chloride 105 98 - 107 mmol/L 12/30/2018 3:54 PM [facility] CO2 25 22 - 29 mmol/L 12/30/2018 3:54 PM [facility] Glucose 174(H) 70 - 115 mg/dL 12/30/2018 3:54 PM [facility] Calcium 10.8(H) 8.4 - 10.2 mg/dL 12/30/2018 3:54 PM [facility] Protein Total 7.5 6.0 - 8.3 g/dL 12/30/2018 3:54 PM [facility] Albumin 3.8 3.4 - 5.0 g/dL 12/30/2018 3:54 PM [facility] Bilirubin Total 0.2 0.2 - 1.2 mg/dL 12/30/2018 3:54 PM [facility] Alkaline Phosphatase 73 40 - 150 Units/L 12/30/2018 3:54 PM [facility] ALT 38 0 - 55 Units/L 12/30/2018 3:54 PM [facility] AST 39(H) 5 - 34 Units/L 12/30/2018 3:54 PM [facility] Anion Gap 15 8 - 18 12/30/2018 3:54 PM [facility] BUN/Creatinine Ratio 23 7 - 23 12/30/2018 3:54 PM [facility] Osmolality Calculated 299 270 - 300 mOsm/kg 12/30/2018 3:54 PM [facility] Albumin/Globulin Ratio 1.0(L) 1.1 - 2.3 12/30/2018 3:54 PM [facility] eGFR >60 >60 mL/min/1.7 3 m2 12/30/2018 3:54 PM [facility] Blood BLOOD SPECIMEN / Unknown Lab Venipuncture / Unknown 12/30/2018 2:42 PM DEVELOPER ANALYST 12/30/2018 3:19 PM DEVELOPER ANALYST Emma Borges MD LAB - CHEMISTRY ORDERABLES [facility] [address] [phone] documented in this encounter Visit Diagnoses Diagnosis Arthralgia, unspecified joint Dry eye Sicca, unspecified type (HCC) documented in this encounter Care Teams High School Principal Relationship Specialty Start Date End Date Elen Hathaway, EDUCATION MANAGERS-MANAGER EMERGENCY [address] [place] [id number] PCP - General 09/04/18 01/04/19 documented as of this encounter
--- OUTSIDE RECORDS SUMMARY | 2024-03-03 15:28 | XMS_ITS | Encounter Summary ---
Author Organization [facility] Health Address [address] [place] [address] Care Team Providers Care Rod Hanger Name Role Phone Vilma Herrera PA-C Primary Care Provider + Encounter Details Date Type Department Care Team (Late st Contact Info) Description 04/24/2021 Lab Requisition [facility] Care [facility] [address] [facility] [place] [id number] Jack Skelton MD [address] [place] [address] Social History Tobacco Use Types Packs/Day Years [...] Procedure Name Priority Date/Time Associated Diagnosis Comments DERMATOPATHOLOGY Routine 04/20/2021 12:0 0 AM [facility] documented in this encounter Results * DERMATOPATHOLOGY (04/20/2021 12:00 AM [facility]) Case Report Dermatopathology Report ? Case: [id number] ? Authorizing Provider: ??Jack Skelton MD ?Collected: ? 04/20/2021 12:00 AM ? Ordering Location: ? [facility] Derm[facility] Lab ?Received: ?04/24/2021 09:34 AM ? Pathologist: ? Caitlyn Bacon, ? MD ? Specimen: ?Skin, right axilla ? 2 3:12 PM [facility] DERMATOPATHOLOGY LABORATORY Final Diagnosis Specimen A. SKIN, right axilla: EPIDERMOID CYST (L72.0) NOT PRESENT AT SAMPLED MARGIN 2 3:12 PM [facility] DERMATOPATHOLOGY LABORATORY Clinical History Cyst. Path # [id number]. Check margins. 2 3:12 PM [facility] DERMATOP[facility] LABORATORY Gross Description Specimen A: Received is one formalin filled container labeled with the patient's name and designated right axilla. The specimen consists of a [id number] excision, bisected. The margin is inked green. Jar 0. 2 3:12 PM [facility] DERMATOPATHOLOGY LABORATORY Microscopic Description Specimen A. SKIN, right axilla: Within the dermis, there is a space lined by epithelium that resembles normal epidermis and the infundibular portion of the hair follicle. This lesion is not present at the sampled margin of the specimen. 2 3:12 PM [facility] DERMATOPATHOLOGY LABORATORY Disclaimer An external and internal positive and negative controls are appropriate for the histochemical, immunohistochemical and immunofluorescence stain(s) in this case (if any), except where stated explicitly. The performance characteristics of the stain(s) cited in this report were developed and its performance characteristic determined by the Dermatopathology Laboratory at [facility], directed by Dr. Boris Bustos. These tests need not be, and therefore are not, approved by the [place] Food and Drug Administration. The tests are used for clinical purposes. Billing Codes Specimen Charges Stain Charges 10547 1 2 3:12 PM [facility] DERMATOPATHOLOGY LABORATORY Embedded Images 2 3:12 PM [facility] DERMATOPATHOLOGY LABORATORY Pathology/Cytolog y TISSUE SPECIMEN FROM SKIN / Unknown 04/20/2021 04/24/2021 9:34 AM [facility] Jack Skelton MD LAB - PATHOLOGY/CYTO LOGY ORDERABLES DERMATOPATHOLOGY LABORATORY [facility] - Department of Dermatology [facility] [address] [place] [address], [address] [phone] documented in this encounter Visit Diagnoses Not on filedocumented in this encounter Care Teams Rod Hanger Relationship Specialty Start Date End Date Vilma Herrera PA-C [address] [place] [phone] PCP - General 01/05/19 documented as of this encounter
--- OUTSIDE RECORDS SUMMARY | 2024-03-03 15:28 | XMS_ITS | Data Portability ---
Author Organization [facility] WILFRIDIron Cabrera Address [address] [place] [address] Care Team Providers Care Speech And Hearing Director Name Role Phone HEIDI DIXON Inspector And Adjuster [employer] [place] [phone] MARRY CEJA Director Of Food And Nutrition Assessment No assessment recorded. Plan of Treatment Reminders Order Date Submit Date Provider Last Modified By Organization Details Last Modified Time Details Appointments None recorded. Lab bacterial vaginosis panel, vaginal 2022 023 [facility], [address] [place] [address], [address], [place], [address], 3 07:15:46 pap, IG + HPV, cervical 2022 023 [facility], [address] [place] [address], [address], [place], [address], 3 15:12:09 pathology study - Sample from middle of back 2023 024 [facility], [address] [place] [address], [address], [place], [address], 4 19:08:51 Referral None recorded. Procedures None recorded. Surgeries None recorded. Imaging US, pelvis, transabdo reena + transvagi nal 2023 024 [facility] ([facility]), [address] [place], [address], 5 09:15:20 Medication Orders azelastin e 137 mcg (0.1 %) nasal spray 2022 023 [email or web address] [facility], [address] [place] [address] , [address], [place], [place], [id number], 3 14:00:42 nystatin 100,000 unit/gram topical cream 2023 024 [facility], [address] [place] [address] , [address], [place], [place], [id number], 4 12:43:27 Compound W 17 % topical liquid 2023 024 [facility], [address] [place] [address] , [address], [place], [place], [id number], 4 12:43:26 Patient TargetsNo targets recorded. Patient Instructions Encounter Date Encounter Id Patient Instructions Last Modified By Organization Details Last Modified Time 11/19/2022 [id number] A healthy lifestyle: care instructions Not available 11/19/2022 14:03:32 12/02/2022 [id number] A healthy lifestyle: care instructions Not available 12/02/2022 10:31:55 candidiasis: car e instructions Not available 12/02/2022 10:44:51 02/26/2023 [id number] warts: care instructions [email or web address] Not available 02/26/2023 12:02:51 body mass index: care instructions [email or web address] Not available 02/26/2023 12:02:51 learning about healthy weight [email or web address] Not available 02/26/2023 12:02:51 04/29/2023 [id number] skin tag removal : care instructions [email or web address] Not available 04/29/2023 12:42:45 body mass index: care instructions [email or web address] Not available 04/29/2023 12:42:46 learning about healthy weight Not available 04/29/2023 12:42:45 02/16/2024 [id number] Attending Physician Attestation I did not personally see or examine the patient with the resident. I was physically present to provide indirect supervision through entire encounter. I have reviewed the documentation and agree with the history, physical findings, work-up, and medical decision making as recorded. Marry Ceja MD [email or web address] Not available 02/16/2024 11:35:21 Reason for Referral None Reported. Results Created Date Observation Date Name Description Value Unit Range Abnormal Flag Note LastModifiedBy Organization Detail LastModifiedTime 12/03/1912/03/2022 IGP, APTIM A HPV HPV aptima Negati ve negati ve This nucle ic acid ampli ficat ion test detec ts fourt een high- risk HPV types (16,1 8,31, 33,35 ,39,4 5,51, 52,56 ,58,5 9,66, 68) witho ut diffe renti ation . Not Available [facility] ([facility]) [address] [place], [address], 12/05/2022 15:12:09 12/03/1912/05/2022 IGP, APTIM A HPV diagnosis: Commen t NEGAT BAILEY FOR INTRA EPITH ELIAL SHORTY N OR MITZY FIGUEROA . Not Available [facility] ([facility]) [address] [place], [address], 12/05/2022 15:12:09 12/03/1912/05/2022 IGP, APTIM A HPV specimen adequacy: Commen t Satis facto ry for evalu ation . Endoc ervic al and/o r squam ous metap lasti c cells (endo cervi erika compo nent) are prese nt. Not Available [facility] ([facility]) [address] [place], [address], 12/05/2022 15:12:09 12/03/1912/05/2022 IGP, APTIM A HPV clinician provided ICD10: Commen t Z01.4 19 N89.8 Not Available [facility] ([facility]) [address] [place], [address], 12/05/2022 15:12:09 12/03/19 23 12/05/2022 IGP, APTIM A HPV performed by: Macario De La Cruz , Rachna smith (ASCP ) Not Available [facility] ([facility]) [address] [place], [address], 12/05/2022 15:12:09 12/03/19 23 12/05/2022 IGP, APTIM A HPV . . Not Available [facility] ([facility]) [address] [facility], [place], [address], 12/05/2022 15:12:09 12/03/1912/05/2022 IGP, APTIM A HPV note: Macario smith The Pap smear is a scree rin test desig roddy to aid in the detec tion of adelfo ligna nt and malig nant condi tions of the uteri ne cervi x. It is not a diagn ostic proce dure and shoul d not be used as the sole means of detec ting cervi erika cance r. Both false -posi tive and false -nega tive repor ts do occur . Not Available [facility] ([facility]) [address] [facility], [place], [address], 12/05/2022 15:12:09 12/03/19 23 12/05/2022 IGP, APTIM A HPV test methodology: - The Thin Prep( R) Image r was unabl e to read this speci men. There fore a manua l revie w was perfo rmed. Not Available [facility] ([facility]) [address] [place], [address], 12/05/2022 15:12:09 12/03/19 23 12/03/2022 NUSWA B BV AND CONNIE DA, DECLAN atopobium vaginae Low - 0 score Not Available [facility] ([facility]) [address] [facility], [place], [address], 12/04/2022 07:15:46 12/03/19 23 12/03/2022 NUSWA B BV AND CONNIE DA, DECLAN bvab 2 Low - 0 score Not Available [facility] ([facility]) [address] [facility], [place], [address], 12/04/2022 07:15:46 12/03/19 23 12/03/2022 NUSWA B BV AND CONNIE DA, DECLAN megasphaera 1 Low - 0 score Calcu late total score by gissell g the 3 indiv idual bacte rial vagin osis (BV) marke r score s toget her. Total score is inter prete d as follo ws: Total score 0-1: Indic ates the absen ce of BV. Total score 2: Indet ermin ate for BV. Addit ional clini erika data shoul d be evalu ated to estab kamryn a diagn osis. Total score 3-6: Indic ates the prese nce of BV. This test was devel oped and its perfo rmanc e fabi cteri stics deter mined by [facility]. It has not been clear ed or appro manfred by the Food and Drug Admin istra tion. Not Available [facility] ([facility]) [address] [facility], [place], [address], 12/04/2022 07:15:46 12/03/1912/04/2022 NUSWA B BV AND CONNIE DA, DECLAN jersey albicans, DECLAN Negati ve negati ve Not Available [facility] ([facility]) [address] [facility], [place], [address], 12/04/2022 07:15:46 12/03/1912/04/2022 NUSWA B BV AND CONNIE DA, DECLAN jersey glabrata, DECLAN Positi ve negati ve abnormal Publi shed data demon strat e that up to 65% of Connie da glabr jn ident ified in cases of vagin al connie diasi s have decre ased susce ptibi lity to fluco nazol e. Not Available [facility] ([facility]) [address] [facility], [place], [address], 12/04/2022 07:15:46 02/26/19 24 02/28/2023 PATHO LOGY REPOR T . Commen t Mater ial submi tted: . back - MIDDL E BACK. Modif iers: middl e Not Available [facility] ([facility]) [address] [facility], [place], [address], 02/28/2023 19:08:51 02/26/19 24 02/28/2023 PATHO LOGY REPOR T . Commrosa t Clini justice provi ded ICD-1 0: B07.9 Not Available [facility] ([facility]) [address] [facility], [place], [address], 02/28/2023 19:08:51 02/26/19 24 02/28/2023 PATHO LOGY REPOR T . Commen t Diagn osis: MIDDL E BACK: TERESA MENDEZ [place]. DOTeri 02/28 1743 Local Not Available [facility] ([facility]) [address] [facility], [place], [address], 02/28/2023 19:08:51 02/26/19 24 02/28/2023 PATHO LOGY REPOR T . Commen t Júnior leey audie d: . Anita taylor MD, Sealy topat holog ist Not Available [facility] ([facility]) [address] [facility], [place], [address], 02/28/2023 19:08:51 02/26/19 24 02/28/2023 PATHO LOGY REPOR T . Commen t Gross descr iptio n: . 1 Conta iner, forma dex-f illed , label ed with patie nt ident ifica tion. MIDDL E BACK: 1 SHAVE BIOPS Y OF LEE SKIN MEASU RING 0.5 X 0.5 X 0.3 CM. ON THE SURFA CE IS A RAISE D AND GRANU LAR LEE 0.5 CM LESIO N. THE LESIO N APPEA RS TO INVOL VE THE ANNIE N. THE SURGI ERIKA ANNIE N IS INKED BLUE. THE SPECI MEN IS BISEC AUBREY. IT IS SUBMI TTED ENTIR ROSA IN CASSE TTE(S ) A1. REN/K YE 02/27 0859 Local Not Available [facility] ([facility]) [address] [facility], [place], [address], 02/28/2023 19:08:51 02/26/19 24 02/28/2023 PATHO LOGY REPOR T . Commen t Patho logis t provi ded ICD-1 0: L82.1 Not Available [facility] ([facility]) [address] [facility], [place], [address], 02/28/2023 19:08:51 02/26/19 24 02/28/2023 PATHO LOGY REPOR T . Commen t CPT . 44187 1 Not Available [facility] ([facility]) [address] [facility], [place], [address], 02/28/2023 19:08:51 12/13/19 23 12/12/2022 arter ial study , lower extre mity, compl ete No observ ation record ed. [email or web address] [facility] [address], [place], [address], 12/27/2022 15:31:38 12/13/19 23 12/12/2022 arter ial study , lower extre mity, multi ple level No observ ation record ed. [email or web address] [facility] [address], [place], [address], 12/13/2022 08:37:15 Result Notes None recorded. Problems Name Problem SNOMED Code Status Onset Date Resolution Date Notes Provider Name and Address Organization Details Recorded Time Uncontro lled type 2 diabetes mellitus 152227001 Active 2017 Was seeing chiki Galarza to Dr. Mcginnis in [place]. ANDREW EMERSON PA-C Attn: Accounting ,[address] [place], [address] , [facility] 4 11:07:38 Tear of meniscus of knee 396979480 Active 2017 Not Available [facility] 1 01:53:19 Carpal tunnel syndrome 12932711 Completed 201707/06/2019 ERA PENA Attn: Accounting ,[address] [facility], [place], [address] , [facility] 0 09:27:53 Nicotine dependen ce 44455390 Active 2017 Not Available [facility] 1 01:53:19 Gastroes ophageal reflux disease 757296185 Active 2017 Not Available [facility] 1 01:53:19 Mixed anxiety and depressi ve disorder 490614781 Active 2017 Not Available [facility] 1 01:53:19 Disorder of lipid metaboli sm 963021751 Active 2017 Lipids 07/27/2019 : tri elevated and HDL low Not Available [facility] 1 01:53:19 Allergic rhinitis 70174329 Active 2017 Not Available [facility] 1 01:53:19 Trichomo nal vaginiti s 526192522 Completed 201709/15/2018 ERA PENA Attn: Accounting ,[address] [facility], [place], [address] , [facility] - [facility] 9 10:47:48 Bacteria l vaginosi s 367709466 Completed 201709/15/2018 ERA PENA Attn: Accounting ,[address] [facility], [place], [address] , [place] - [facility] 9 10:47:51 Noncompl iance with treatmen t 1043459 Active 2017 Not Available [facility] 01:53:19 Serum creatini ne above referenc e range 874470898 Completed 201707/28/2019 ERA PENA Attn: Accounting ,[address] [facility], [place], [address] , [facility] - [facility] 0 11:40:30 Body mass index 30+ - obesity 268046681 Active 2017 Not Available [facility] 01:53:19 Candidia sis of skin 46427254 Active 2018 Not Available [facility] 1 01:53:19 Peripher al arterial occlusiv e disease 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 Experien cing claudica tion. AIF with interven tion (right leg) performe d by Dr. Dixon, stent of R SFA complete d 12/03/18 . Restenos is of R SFA atery, successf ul laser atherect ambrosio and stenting of R SFA (NAIMA stent) on 0. Not Available [facility] 1 01:53:19 Liver enzymes level above referenc e range 027754654 Active 2018 Not Available [facility] 01:53:19 Microalb uminuria 100398034 Active 2018 Not Available [facility] 1 01:53:19 Systolic murmur 65848036 Active 2018 2/6, loudest over the aortic area Not Available [facility] 01:53:19 Acquired trigger finger 4469138 Active 2019 R 2nd and 4th digits and L 4th digit, rheumato logy offered injectio ns but patient denied Not Available [facility] 01:53:19 Carpal tunnel syndrome 95005728 Active 2019 Experien cing numbness /pain/ti ngling in hands Not Available [facility] 01:53:19 Osteoart hritis of joint of left hand 05944343823 9102 Active 2019 Xray of L hand showed mild degenera tive changes at the 5th digit DIP joint Not Available [facility] 01:53:19 Vitamin D below referenc e range 669400027 Active 2022 ERA PENA Attn: Accounting ,[address] [place], [address] , [facility] 3 13:02:44 Chronic kidney disease stage 2 998333408 Active 2023 ANDREW EMERSON PA-C Attn: Accounting ,[address] [place], [address] , [place] - [facility] 4 11:07:04 [facility] 50548229 Active 2023 ANDREW EMERSON PA-C Attn: Accounting ,[address] [place], [address] , [place] - [facility] 4 11:08:27 Problem Notes None recorded. Procedures Surgical History Date Name Laterality Status Provider Name and Address Organization Details Recorded Time 12/03/19 23 Date of Last Pap Smear completed Lamar Daley MA PA - [facility] 02/12/2024 12:47:40 09/25/19 23 Most Recent Mammogram completed AYO Bhandari - [facility] 12/02/2022 09:51:50 09/25/19 23 Date of Last Mammogram completed AYO Bhandari - [facility] 12/02/2022 09:51:31 12/06/19 22 Endometrial Biopsy completed ERA STANLEY Attn: Accounting,[address] [facility], [place], [address], [place] [facility] 12/05/2021 14:54:00 04/25/19 21 Knee Surgery completed Che[place]enne Schultz [place] - [facility] 02/20/2021 14:43:22 03/13/19 19 Depo Injection completed Mercy Bowles [place] - [facility] 03/13/2018 17:51:14 12/13/19 18 Depo Injection completed Mercy Bowles MA [place] - [facility] 12/12/2017 10:57:13 08/05/19 Endometrial Biopsy completed Lisa Bailey MD Attn: Accounting,[address] [facility], [place], [address], [place] - [facility] 08/04/2017 12:33:58 08/28/18 93 delivery completed Mercy Bowles MA PA - [facility] 12/12/2017 10:55:26 06/25/18 90 delivery completed Mercy Bowles MA PA - [facility] 12/12/2017 10:55:05 02/19/19 88 Caesarean Section completed Mercy Bowles MA PA - [facility] 12/12/2017 10:55:37 Tonsillectomy completed Vanesa Adhikari MA PA - [facility] 03/14/2017 13:56:44 Tubal Ligation completed Vanesa Adhikari MA PA - [facility] 03/14/2017 13:56:58 Knee Surgery completed Dewayne Cedillo MD Attn: Accounting,[address] [place], [address], [place] [facility] 03/14/2017 14:11:21 Endometrial Ablation completed [place] Saenz [place] [facility] 05/05/2017 12:26:09 endoscopy completed Deonna Townsend [place] [facility] 04/29/2023 12:05:11 Imaging Results Imaging Date Name Status LastModified by Organiz ation Details LastModified Time 12/12/2022 arterial study, lower extremity, complete completed [email or web address] [facility] [address], [place], [address], 12/27/2022 15:31:38 12/12/2022 arterial study, lower extremity, multiple level completed [email or web address] [facility] [address], [place], [address], 12/13/2022 08:37:15 Procedure Notes None recorded. Medical Equipment None Reported. Allergies Allergen ID Allergen Name Allergen Category Reaction Reaction Severity Criticality Documentation Date Start Date Code Code System Note Provider Name and Address Organization Details Recorded Time 267387 codeine medicatio n vomiting moderate Not available 03/14/2017 2670 RxNorm Vanesa Adhikari MA [facility], [place] - [facility] 8 13:55:44 167026 Non-stero idal anti-infl ammatory agent (product) medicatio n Not available Not available Not available 12/10/2017 99179 005 SNOMED due to kidfrances Boxd ate: Pt repor ts that there is no effec t. MD in [place] advis ed pt to stay away from NSAID S as she was prot ein spill ing at the time. State s MD advis ed that she shoul d only take them occas ional ly... .. updat ed 06/15 . YONATAN MARADIAGA Attn: Gregory martino,[address] [facility], [place], [address], [facility] 9 15:50:19 Medications Name Sig Start Date Stop Date Status Note LastModified by Organization Details LastModified Time Prescript ion - Prior Authoriza tion Request 09/25 completed Not Available Not Available [...] e 137 mcg (0.1 %) nasal spray [place] 2 sprays twice a day by intranas [...] e 50 mcg/actua tion nasal spray,bridget pension [place] 2 sprays every day by intranas al [...] height Body mass index (BMI) Body weight Body temperature Oxygen saturation Oxygen saturation in Arterial blood by Pulse oximetry Heart rate Systolic blood pressure Diastolic blood pressure Provider Name and Address Organization Details Last Updated DateTime 3 164.47 cm 35.7 kg/m2 77661.1 7 g 97.9 [degF] 96 % 96 % 80 /min 128 mm[Hg] 68 mm[Hg] Cheyenne Schultz [facility] 3 12:37:28 Date Recorded Body height Body mass index (BMI) Body weight Body temperature Oxygen saturation Oxygen saturation in Arterial blood by Pulse oximetry Heart rate Systolic blood pressure Diastolic blood pressure Provider Name and Address Organization Details Last Updated DateTime 3 164.47 cm 36.2 kg/m2 50516.3 8 g 98.2 [degF] 97 % 97 % 74 /min 124 mm[Hg] 64 mm[Hg] Cheyenne Schultz [facility] 3 09:54:35 Date Recorded Body height Body mass index (BMI) Body weight Oxygen saturation Oxygen saturation in Arterial blood by Pulse oximetry Heart rate Body temperature Systolic blood pressure Diastolic blood pressure Provider Name and Address Organization Details Last Updated DateTime 4 164.47 cm 37.9 kg/m2 153075. 16 g 97 % 97 % 83 /min 98 [degF] 122 mm[Hg] 62 mm[Hg] Cheyenne Schultz MA [facility] 4 11:09:20 Date Recorded Body height Body mass index (BMI) Body weight Oxygen saturation Oxygen saturation in Arterial blood by Pulse oximetry Heart rate Systolic blood pressure Diastolic blood pressure Provider Name and Address Organization Details Last Updated DateTime 4 164.47 cm 38.1 kg/m2 541905. 9 g 96 % 96 % 78 /min 130 mm[Hg] 68 mm[Hg] Deonna Townsend MA [facility] 4 12:07:07 Date Recorded Body height Body mass index (BMI) Body weight Provider Name and Address Organization Details Last Updated DateTime 02/16/2024 164.47 cm 33.4 kg/m2 28609.88 g Lamar Daley MA [facility] 02/16/2024 10:38:29 Social History Question Answer Notes LastModified by Organizat ion Details LastModified Time Tobacco Smoking Status Former Smoker Quit 2 Cheyenne Schultz MA null, [facility] 02/26/2023 11:05:26 Do You Have An Advance [...] Or Vape? Current User Of Electronic Cigarettes denysma Information not available 12/02/2022 Education 12 Information no t available 05/05/2017 What Is Your Occupation? [employer] Information not available 03/07/2020 Live Alone Or With Others? With Others Information not available 05/05/2017 What Was The Date Of Your Most Recent Tobacco Screening? 02/16/2024 Information not available 02/16/2024 How Many Children Do You Have? 2 Information not available 05/05/2017 Performs Monthly Self-breast Exam? No Information not available 05/05/2017 Do You Use Protection During Sex? No [email or web address] Information not available 12/12/2017 Difficulty Reading? Yes [...] Response Coronary Artery Disease N Other N High Blood Pressure Y Atrial Fibrillation N Depression Y COPD N Blood Clots N Anesthesia Complications N Headaches/Migraines N Anxiety Disorder Y Muscle, Joint, or Bone Problems Y Infertility N Polyps N Acid Reflux (GERD) Y Cancer N Stroke N Endometriosis N High Cholesterol Y Liver Disease N Headaches N Thyroid Problems N Kidney or Bladder Problems Y GI Problems N Acne N Eating Disorder N Skin Problems N Anemia N Heart Attack ([place]) N Diabetes Y Ovarian Cancer N Seizures/Epilepsy N Abuse/Domestic Violence N Asthma N Allergies N Hepatitis N Heart Disease N Pre-Eclampsia N Heart Failure N Osteoporosis [...] virus, quadrivalent, preservative 9 completed Not Available [facility] 12/28/2020 01:53:20 COVID-19, mRNA, LNP-S, PF, 100 mcg/0.5mL dose or 50 mcg/0.25mL dose 1 completed Not Available [facility] 12/28/2020 01:53:20 COVID-19, mRNA, LNP-S, PF, 100 mcg/0.5mL dose or 50 mcg/0.25mL dose 1 completed Not Available [facility] 12/28/2020 01:53:20 COVID-19, mRNA, LNP-S, PF, 100 mcg/0.5mL dose or 50 mcg/0.25mL dose 1 completed AYO Bhandari, PA - [facility] 02/20/2021 14:40:11 Influenza, split virus, quadrivalent, preservative 1 completed AYO Bhandari, [place] - [facility] 02/20/2021 14:40:28 Influenza, split virus, quadrivalent, preservative 7 completed Not Available [facility] 12/28/2020 01:53:20 Tdap 5 completed Not Available [facility] 12/28/2020 01:53:20 pneumococcal polysaccharide PPV23 0 completed Not Available [facility] 12/28/2020 01:53:20 Influenza, split virus, quadrivalent, preservative 8 completed Not Available [facility] 12/28/2020 01:53:20 Past Encounters Encounter ID Performer Location Encounter Start Date Encounter Closed Date Diagnosis/Indication Diagnosis SNOMED-CT Code Diagnosis ICD10 Code Diagnosis Note [id number] Dewayne Cedillo MD [facility] (Adult Med) [address] [place] [address] 03/14/2017 13:39:59 03/14/2017 14:43:18 General examination of patient 665957656 Z00.01 Uncontroll ed type 2 diabetes mellitus 670089643 E11.65 I will change her Basaglar to Lantus with the hope that it is on the formulary. Restart TanzeumRes tart Lisinopril Gastroesop hageal reflux disease 885555776 K21.9 Nicotine dependence 5629 4008 F17.200 Cessation was discussed Carpal levar matthias syndrome 02791726 G56.03 Tear of me niscus of knee 102832638 S83.206A Mixed anxi ety and depressive disorder 870538050 F41.8 [id number] Aruna Kim MD [facility] [address] [place] [address] 04/15/2017 14:44:14 04/26/2017 20:47:51 [id number] Drew Wang MD [facility] [address] [place] [address] 04/18/2017 13:33:53 04/18/2017 17:05:06 Knee pain 19641196 M25.561 Carpal levar matthias syndrome 19642637 G56.03 [id number] MD [facility] (Adult Med) [address] [place] [phone] 04/25/2017 12:24:07 04/25/2017 13:16:38 Uncontrolled type 2 diabetes mellitus 156946455 E11.65 Uncontroll ed DM. HBA1C 11 03/21/2017. She was seen by the endocrinol ogist who according to the patient does not like David.Fo llow up with the endocrinol ogist. Mixed anxi ety and depressive disorder 479220039 F41.8 She was previously on Effexor and Celexa Allergic rhinitis 316386 04 J30.9 Screening for malignant neoplasm of breast 070305720 Z12.31 Disorder o f lipid metabolism 283549000 E78.9 Neck pain 24038432 M54.2 Side effects of Cyclobenza christy were discussed especially with concomitan t use of Effexor and Citalopram . [id number] AYO Bradshaw (CR[employer] MAN) [address] [place] [id number] 05/05/2017 11:36:37 05/05/2017 13:18:31 Gynecologic examination 60977517 Z01.411 Age appropriat e counseling done. Venereal d isease screening 644726725 Z11.3 Patient refused blood work. Obese 051158937 E66.9 Counseled About weight loss, diet and excercise. Patient refused staff training and development manager consult. Glycosuria 52428206 R81 ADVISED TO F/U WITH PCP Abnormal u terine bleeding 6695498005 9100 N93.9 counseled about causes, risks of it. offered endometria l biopsy and counseled about procedure. she verbalized understand ing and she agrees for it. she wanted to come back for it. advised to take pain medication like tylenol 1-2 hrs before she come in for endometria l biopsy. Patient refused any medical treatment at this time. 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 Patient say she did not fill flagyl prescripti on. Flagyl prescribed for BV should cover trichomona s. Advised patient to pick flagyl prescripti on. Safe sex counseling and use of condoms. Advise no intercours e until test of cure is negative. Notify patient that Partner need to be treated. Return to clinic in 4-5 weeks after treatment for test of cure. Bacterial vaginosis 4197 12317 N76.0 Counseled about it. Patient say she did not fill flagyl prescripti on. Advised patient to pick flagyl prescripti on. Abnormal u terine bleeding 4633400942 9100 N93.9 Counseled patient that I will wait on endometria l biopsy until KELLY for trichomona s is negative. RTC in 4 -5 weeks for KELLY.Nima smith did not do blood work last visit. Advised patient to do blood work today. She say she will. Patient say she is scheduled for TVUS. Glycosuria 89224847 R81 ADVISED TO F/U WITH PCP [id number] Tamika Wilkins [facility] [address] [place] [address] 05/15/2017 11:20:31 06/16/2017 11:05:47 [id number] Drew Wang MD [facility] [address] [place] [address] 05/27/2017 10:54:34 05/28/2017 10:26:07 Bilateral carpal tunnel syndrome 8900529174 6082956 G56.03 Tear of me dial meniscus of knee 837574161 S83.221D [id number] MD Guanaco Manzo (Adult Med) [address] [place] [address] 06/04/2017 16:37:13 06/05/2017 08:52:02 Fracture of lumbar spine 979859840 S32.009A CT scan suggests an age indetermin ate avulsion fracture of the endplate. She was seen by Dr. Márquez who disagrees with the diagnosis, she is currently in PT. Pre-surger y evaluation 557171560 Z01.818 Moderate risk Uncontroll ed type 2 diabetes mellitus 931509852 E11.65 Uncontroll ed DM. HBA1C 11 03/21/2017. She was seen by the endocrinol ogist who according to the patient does not like David.In crease Lantus to 43 units HS Nicotine dependence 5629 4008 F17.200 Cessation was discussed Hyperprolactinemia [address] has referred her to the endocrinol ogist [id number] AYO Bradshaw ([employer]) [address] [place] [address] 0 2017 11:09:57 2017 15:56:25 Abnormal uterine bleeding 1932467959 9100 N93.9 D/W patient lab work, ultrasound result. Since she she has HTN counseled about different forms of progestero ne only medication s like OCPS, Depo Provera, Nexplanon, progestero ne IUD. she opted Depo provera. counseled about risks and benefits of it and also return of fertility, effect on bone mineral density. Advised to take calcium and vitamin D. safe sex counseling and advised to use condoms. Endometrium thickened 44 6824060 R93.8 d/w patient ultrasound report. Counseled about thick endometriu m. Endometria l biopsy after KELLY negative for trichomona s. Uterine leiomyoma 710649 05 D25.9 D/W patient. Counseled thoroughly about it. Trichomonal vaginitis 27 2564703 A59.00 KELLY done today. Safe sex counseling done. Positive s creening for depression on PHQ-9 (Patient Health Questionnaire 9) 4783743183 57821 Z13.89 Advised to f/u with counselor. Candidiasis of vulva 108 5006 B37.3 Counseled about it. [id number] MD Guanaco Vasquez ([employer]) [address] [place] [address] 06/19/2017 11:09:58 06/19/2017 13:37:02 Screening mammography 52007805 Z12.31 Abnormal u terine bleeding 5636792648 9100 N93.9 Patient say her bleeding completely stopped after depo provera. Explained patient that I will do endometria l biopsy in 3 months from treatment because of recent trichomona s. Counseled about risks of doing EMB early - like PID. Patient wanted to wait for 3 months since treatment. Trichomonal vaginitis 27 6172313 A59.00 D/W patient KELLY which was negative. Jac sex counseling today. Glycosuria 21763518 R81 ADVISED TO F/U WITH PCP [id number] MARITA Scott (Adult Med) [address] [place] [address] 06/25/2017 11:13:31 06/25/2017 12:13:58 Uncontrolled type 2 diabetes mellitus 283451227 E11.65 last a1c: 11.0 WIll re-refer to endo - advised to c/w meds as prescribed Contact office if BS is <80 or >300 DIscussed that DM can cause kidney, eye, heart, neurologic al damage and even and she needs to take this seriously and get her DM under control Nicotine dependence 5629 4008 F17.200 Carpal levar matthias syndrome 99189693 G56.03 Serum crea tinine above reference range 070208360 R79.89 WIll refer to nephrology Noncomplia nce with treatment 1612325 Z91.19 Not taking insulin as directed because she doesn't ilke poking herself Body mass index 30+ - obesity 143170890 Z68.35 Advised 30 minutes of exercise 5 days/week Advised to not drink her calories Advised 3 balanced meals/day with plenty of fruits and vegetables [id number] [facility] (Adult Med) [address] [place] [address] 0 07/30/2017 11:50:03 07/30/2017 12:35:41 Body mass index 30+ - obesity 389999608 Z68.35 Advised 30 minutes of exercise 5 days/week Advised to not drink her calories Advised 3 balanced meals/day with plenty of fruits and vegetables Upper resp iratory infection 14967110 J06.9 Most likely viralAdvis ed to drink plenty of waterAlter deborah ibuprofen and tylenol for painRestOT C cough syrup PRNAdvised to complete abx as prescribed by ER in [place] Uncontroll ed type 2 diabetes mellitus 303970353 E11.65 last a1c: 11.0 WIll re-refer to endo - advised to c/w meds as prescribed Contact office if BS is <80 or >300 DIscussed that DM can cause kidney, eye, heart, neurologic al damage and even and she needs to take this seriously and get her DM under control Has an appointmen t with endo in 2 days Serum crea tinine above reference range 499943040 R79.89 Needs to schedule with nephrology Nicotine dependence 5629 4008 F17.200 Advised to quit [id number] Aruna Kim MD [facility] [address] [address] 08/01/2017 11:57:06 08/15/2017 11:34:41 Nonproliferative retinopathy due to diabetes mellitus 048442451 E11.3291 Macular ed maci due to diabetes mellitus 591690019 E11.3212 [id number] MD Guanaco Vasquez ([employer]) [address] [place] [address] 08/04/2017 11:04:59 08/04/2017 17:43:05 Abnormal uterine bleeding 6664848093 9100 N93.9 Counseled about the procedure and its risks including infection, bleeding, damage to internal organs, indicated procedures . Patient verbalized understand ing. Consent signed which is in chart. Refer to procedure note. Advised patient to go to ER if bleeding more than a pad per hour, fever > 100.4, and severe pain. Glycosuria 21328441 R81 ADVISED TO F/U WITH PCP Obese 326488374 E66.9 Counseled About weight loss, diet and excercise. Patient refused staff training and development manager consult. [id number] Vanesa fuentes, MD [facility] (Adult Med) [address] [place] [address] 08/07/2017 11:49:06 08/11/2017 09:53:10 Pain in throat 322283539 R07.0 Throat non-erythe matous, tonsils not enlarged, no need for strep test at this timeIf no improvemen t with H2 sergio and/cetiri zine, advised to contact clinic and will refer to GI Advised to quit smoking Allergic disposition 609 397906 Z91.09 continue to use flonase at home Gastroesop hageal reflux disease 338743942 K21.9 Advised to stay away from spicy and greasy foodsAdvis ed to stay away from fatty foodsDo not eat within 2 hours of going to bedStay sitting up after mealsNo smoking Nicotine dependence 5629 4008 F17.200 Advised to quit [id number] MD Guanaco Vasquez ([employer]) [address] [place] [address] 08/11/2017 13:44:08 08/11/2017 14:57:38 Break-through bleeding 01431919 N92.1 Counseled about different causes including breakthrou gh bleeding from Depo provera. Advised patient to go to ER if bleeding more than a pad per hour,. Abnormal u terine bleeding 3030878600 9100 N93.9 Improved after depo provera. d/w patient pathology result. Benign. RTC in 4 months. Glycosuria 29113190 R81 ADVISED TO F/U WITH PCP [id number] [facility] ([facility]) [address] [place] [address] 09/12/2017 11:47:45 09/12/2017 12:25:15 Family planning surveillance 356539157 Z30.09 [id number] MD Guanaco Barajas (Adult Med) [address] [place] [address] 09/25/2017 12:42:30 10/01/2017 09:59:20 Pain in right knee 9268829144 65509 M25.561 Bilateral carpal tunnel syndrome 4530838681 8052482 G56.03 [id number] JAYDA GRIJALVA (Adult Med) [address] [place] [address] 0 10/10/2017 13:50:08 10/10/2017 14:42:43 Carpal tunnel syndrome 27579440 G56.03 avoiding nsaids, failed gabapentin try amitriptyl ine 10 mg dailyrefer to ortho for surgeryf/u 2 months Serum crea tinine above reference range 830715514 R79.89 check cmpavoid nsaidsdrin k more watersend for nephrology eval due to DM-also seeing endocrine for DM [id number] JAYDA GRIJALVA (Adult Med) [address] [place] [address] 0 10/24/2017 13:37:33 10/28/2017 11:10:40 Heel pain 9406370 M79.671 exam unremarkab le use RICE take tylenol 2-3 times per day f/u if not improving in 2-4 weeks [id number] MD Guanaco Vasquez ([employer]) [address] [place] [address] 0 11/04/2017 15:27:02 11/04/2017 17:08:45 Glycosuria 88478203 R81 ADVISED TO F/U WITH PCP Folliculitis 61838906 L7 3.9 Counseled about it. Obese 691061281 E66.9 Counseled About weight loss, diet and excercise. Patient refused staff training and development manager consult. [id number] MARITA Scott (Adult Med) [address] [place] [address] 0 12/10/2017 15:11:00 12/11/2017 10:26:27 Acute sinusitis 10698696 J01.90 Advised to drink plenty of waterAlter deborah ibuprofen and tylenol for painRestTa ke abx as prescribed [id number] [facility] ([facility]) [address] [place] [address] 0 12/12/2017 10:41:42 12/12/2017 12:44:11 Family planning surveillance 449721161 Z30.09 [id number] MD [facility]quez [facility] ([facility]) [address] [place] [address] 0 01/28/2018 14:08:57 01/29/2018 11:29:07 Break-through bleeding 35118918 N92.1 Counseled about different causes including breakthrou gh bleeding from Depo provera. Advised patient to go to ER if bleeding more than a pad per hour,. Glycosuria 52834828 R81 Advised patient to f/u with endocrinol ogist. She say she has appointmen t next week. Hyperprolactinemia 2004 E22.1 She say she saw endocrinol ogist and got test repeated and was told it was normal. Advised patient to f/u with endocrinol ogist. [id number] MARITA Scott (Adult Med) [address] [place] [address]8860[address] 0 02/05/2018 15:38:11 02/06/2018 10:43:49 Carpal tunnel syndrome 58906710 G56.03 Tear of me niscus of knee 755136582 S83.206D Degenerati on of lumbar intervertebral disc 77900615 M51.36 Uncontroll ed type 2 diabetes mellitus 243625608 E11.65 last a1c: 10.0- per patient Followed by Dr. Givens Contact office if BS is <80 or >300 DIscussed that DM can cause kidney, eye, heart, neurologic al damage and even and she needs to take this seriously and get her DM under control Has an appointmen t with endo in 2 days Body mass index 30+ - obesity 683266758 Z68.35 Advised 30 minutes of exercise 5 days/week Advised to not drink her calories Advised 3 balanced meals/day with plenty of fruits and vegetables Sensation of foreign body in throat 2094951457 83047 R09.89 [id number] [facility] ([facility]) [address] [place] [address] 623[address] 0 03/13/2018 11:01:06 03/18/2018 16:45:06 Family planning surveillance 600057817 Z30.09 [id number] CHRISTOPHER Villegas (Adult Med) [address] [place] [address] 29597[address] 0 04/17/2018 14:11:35 04/20/2018 10:01:47 Body mass index 30+ - obesity 127178679 Z68.30 discussed good diet and exercise. make good food/snack choices. decrease sugared beverage intake. Nicotine dependence 5629 4008 F17.200 advised to quit Multiple joint pain 3567 8005 M25.50 [id number] AYO Johnston ([employer]) [address] [place] [address] 0 06/05/2018 12:00:27 06/05/2018 12:14:23 Family planning surveillance 140035004 Z30.09 [id number] MELIZA MARADIAGA-C Guanaco (Adult Med) [address] [place] [address]31[address] 0 06/15/2018 14:20:49 06/16/2018 12:16:48 Tendinitis of wrist 030363281 M77.8 -Pt advised to wear wrist splint-Pt advised to follow with ortho who has managed her wrist complaints in past 6 months-Pt to take Tylenol Uncontroll ed type 2 diabetes mellitus 109402104 E11.65 -Patient seen by endocrinol ogist-Pt to follow with them and reports last A1C obtained by Endo was between 11-12. [id number] Parish [facility] ([facility]) [address] [place] [address] 0 07/23/2018 10:48:39 07/23/2018 14:21:32 Screening mammography 24409560 Z12.31 Exposure t o sexually transmissible disorder 941436390 Z20.2 Body mass index 30+ - obesity 922503849 Z68.39 Mixed anxi ety and depressive disorder 591037826 F41.8 Gastroesop hageal reflux disease 878457176 K21.9 Disorder o f lipid metabolism 791227465 E78.9 Trichomonal vaginitis 27 8277118 A59.00 Bacterial vaginosis 4197 74672 N76.0 Uncontroll ed type 2 diabetes mellitus 631568906 E11.65 10.1 on 06/14/18 Nicotine dependence 5629 4008 F17.200 Menopausal syndrome 1237 02816 N95.9 Gynecologi c examination 12007702 Z01.419 Z11.51 Candidiasis of skin 4988 3006 B37.2 [id number] MD Guanaco Chung (Adult Med) [address] [place] [address] 0 09/15/2018 10:22:32 09/16/2018 10:05:45 Vertigo 503758514 R42 Hx of vertigo x 8 years, never diagnosed with specific typeThis episode of vertigo present x 4 days, difficulty getting out of bed and extremely nauseous. Denies episodes of hearing loss or tinnitus. No nystagmus seen on PE, Antonio maneuver attempted in the office, no improvemen t of symptoms. Duration of vertigo episodes makes BPPV less likely.DDx : BPPV, labyrinthi tis, vestibular neuritis- Will prescribe meclizine, used to take this medication and provide relief during flare-ups- WIll prescribe zofran for the nausea- Will put in referral for ENT for further evaluation - Patient to see if medication s help her symptoms, if symptoms continue or get worse, she is to return to the office, may need to try steroids or do further imaging to rule out other etiologies [id number] ERA PENA (Adult Med) [address] [place] [address] 0 10/29/2018 14:24:41 11/02/2018 10:47:13 Essential hypertension 63857281 I10 BP Today: 142/60 and 158/88Pati ent was not taking any medication Discussed DASH diet Advised 30 minutes of exercise minimum daily Advised tobacco, alcohol, caffeine all increase BP Advised goal for BP is <140/90 Contact office if BP is > 140/90 consistent ly DIscussed consequenc es of HTN including kidney, eye, heart damage, stroke, and even RTC 3 months for BP check - Will start lisinopril 20 mg for blood pressure control Pain of le ft hip joint 0861697078 97315 M25.552 Left hip injury after catching leg on somethingP atient limping in and out of officeOn PE: left greater trochanter TTP, limited ROMLikely a muscle strain- Will give short course of tramadol, patient was not thrilled that this is all I would give her- Provided patient with hip exercises Adult heal th examination 965581251 Z00.00 Will check annual labs, patient is not fasting today, needs to complete when fasting Bilateral plantar fasciitis 7999668862 0173402 M72.2 Bilateral heel pain at all times, worse with steps after rest Uncontroll ed type 2 diabetes mellitus 578524498 E11.65 Trying to get diabetes controlled so she can have bilateral wrist surgeryPat ient follows with an endocrinol ogist Nicotine dependence 5629 4008 F17.200 Smoking 1-1 1/2 PPDRequest ing to try chantixHas tried the nicotine patches but has been unsuccessf ulPatient with history of anxiety and depression , advised patient of potential SE including thoughts of suicide, patient to call if these develops these thoughts [id number] ERA PENA (Adult Med) [address] [place] [address] 0 11/30/2018 14:37:23 12/01/2018 09:39:50 Seborrheic keratosis of scalp 012281345 L82.1 Worried today about skin lesion on right aspect of scalp that is increasing in size and itchingOn PE: 1.5x1.5 cm raised, light brown, velvety lesion on right side of scalp (temporal area)- Provided patient informatio n regarding seborrheic keratosis- Will give a low dose steroid cream to use sparingly to decrease irritation and itch- Will send dermatolog y referral for patient since on scalp and starting to irritate patient, may want to remove lesion in the future Hidradenit is suppurativa 33147110 L73.2 Complainin g of multiple boils in groin area and under skin/abdom inal rollOn PE: 3 small healing abscesses under left side of abdominal panus- Will start patient on hibiclens wash to help decrease bacterial load- Provided her informatio n regarding care for abscesses- Advised her to avoid tight-fitt ing clothing, stop smoking, and lose weight which will all help decrease the abscess formation Peripheral arterial occlusive disease 784607614 I73.9 40-50% blockage of left proximal femoral artery and 80-90% blockage of right femoral artery. Experienci analia claudicati on pain.AIF with interventi on (right leg) planned with Dr. Dixon on 11/03/18. Body mass index 30+ - obesity 506051141 Z68.39 - Advised decreased portion sizes, good food choices, limited eating out or fast food and eliminate soda and juice from diet. Advised physical activity daily and offered encouragem ent to continue with positive changes made so far. Nicotine dependence 5629 4008 F17.200 Smoking 1-1 1/2 PPDRequest ed to try chantix at last visit since she has tried the nicotine patches and has been unsuccessf ul, never received the patchesCal led and spoke with pharmacy and was told they never received our PA- Will fill out another PA to try and get this approved for patient [id number] ERA PENA (Adult Med) [facility] [place] [address] 02/22/2019 15:02:12 02/23/2019 10:19:06 Injury of rotator cuff 291607137 S46.001A Admits to left shoulder pain x 3 weeks. Admits to decreased ROM and weakness.S he thinks she slept on it wrong because it started hurting one morning when she woke up.The pain is intermitte nt, worse with activities such as pulling, lifting, and carrying.O n PE: AC joint, bicep tendon, and greater tubercle TTP. Decreased active ROM (flexion, abduction, and internal rotation). + luna and empty can test.Likel y rotator cuff tendonitis since no acute injury- Provided her with exercises at home since she declined PT- Advised her to rest and ice affected area- Started her on medrol dose pack to decreased inflammati on- Avoid NASIDs due to kidney function, tylenol for pain Acute otitis media 92460 03 H66.91 Complainin g of nasal congestion , green nasal discharge, sinus pressure, sinus headaches, and ear pressure x 7 days.On PE: Right TM erythemato us- Will start amoxicilli n x 5 days- Continue supportive care at home Insomnia 078681774 G47.0 0 Worried about her sleep, troubles falling asleep and staying asleep at night.Her psychiatri st gives her ambien and states that does not even help.- She is about to lose her insurance x 1 month, but when she has insurance back, will put in sleep medicine referral [id number] ERA PENA (Adult Med) [address] [place] [address] 0 03/09/2019 08:25:16 03/09/2019 08:55:13 Abscess 635146389 L02.91 Went to [facility] on 03/05/2019 for abscess on left thigh x 3 days. The abscess was drained in the ER and packed.She was discharged home with clindamyci n and norco.On PE: 3 cm open nodule with packing present in the left upper thigh near groin. Slight erythema and swelling present but no signs of cellulitis . No discharge. - Packing removed from abscess, wound cleaned, and new band-aid placed- Continue with clinda until completely gone- Provided her with skin care instructio ns- Return to office if no improvemen t- consider tx for HS [id number] ERA PENA (Adult Med) [address] [place] [address] 0 07/06/2019 13:26:16 07/07/2019 06:25:00 Peripheral arterial occlusive disease 378241108 I73.9 Hx of AMH24-21% blockage of left proximal femoral artery and 80-90% blockage of right femoral artery.AIF with interventi on (right leg) completed by Dr. Dixon on 11/03/18, stent placed in R SFA.Today, she is complainin g of progressiv e right calf pain and cramping with walking x 3 weeks.She has minimal pain at rest but after a certain distance of walking she develops R calf pain.She has been taking ASA and clopidogre l daily without missing doses of medication s.Saw Cardiology last 01/2019, not due to see them again until 01/2020.- Will order US of lower extremity to evaluate for new or worsening arterial blockage. Uncontroll ed type 2 diabetes mellitus 980926771 E11.65 HgbA1c 8.0Pt. is switching to a new endocrinol ogist for her T2DM, was seeing Dr. Givens but now is going to be seeing Dr. Mcginnis in [place].She is requesting the new Dexcom G6 monitoring device.- will send order to her pharmacy, unsure if this device will be covered by her insurance [id number] [facility] ([employer]) [address] [place] [address] 03/07/2020 07:57:34 03/08/2020 12:39:43 Screening mammography 00409530 Z12.31 Uncontroll ed type 2 diabetes mellitus 213587904 E11.65 10.1 on 06/14/18 Peripheral arterial occlusive disease 137779883 I73.9 Body mass index 30+ - obesity 909525668 Z68.41 Menopausal syndrome 1237 97581 N95.9 Screening for malignant neoplasm of colon 094453132 Z12.11 Screening for osteoporosis 037333936 Z13.967 [id number] ERA PENA (Adult Med) [address] [place] [address] 02/20/2021 14:27:41 02/21/2021 17:13:02 Menopausal syndrome 251623759 N95.9 Went through menopause around 2 years agoUsed to follow with Dr. Sterling for OBGYN care, here today to establish with me for OBGYN care.She has been taking HRT x 2 years, she ran out about 6-7 days ago and states her mood has been all over the place without the medication .History of HTN, takes medication daily and usually well controlled , does not check BP at home.- goal of treatment is to treat for shortest amount of time possible, will continue HRT but needs to f/u annually for visits with the goal to come off this medication in the future- mammogram needs to be updated especially with being on HRT- BP elevated today, patient aware estrogen plus her underlying conditions plus uncontroll ed HTN can increased risk of UT and stroke. She states her BP is usually well controlled , she is seeing her cardiologi st again in the next few weeks so will make sure levels are stable. Sending BP cuff to pharmacy so she can keep an eye on BP at home.- c/w vitamins as prescribed Screening mammography 24 535062 Z12.31 Last mammogram 2018Denies breast symptoms. Denies family history of breast cancer - Gave patient mammogram order during visit today, she is aware she is supposed to call and schedule herself. Uncontroll ed type 2 diabetes mellitus 745050858 E11.65 Following with Endocrinol brittani who is prescribin g all of her medication s Peripheral arterial occlusive disease 382357095 I73.9 Hx of PAD, AIF with interventi on (right leg) completed by Dr. Dixon on 11/03/18, stent placed in R SFA.She has been taking ASA and clopidogre l daily without missing doses of medication s.Recent US completed by cardiology showed R SFA stent patent, mild PAD below the knees, mod-severe disease of tibial arteries- c/w cardiology care- c/w medication s Body mass index 30+ - obesity 371509738 Z68.41 - Advised decreased portion sizes, good food choices, limited eating out or fast food and eliminate soda and juice from diet. Advised physical activity daily and offered encouragem ent to continue with positive changes made so far. Screening for malignant neoplasm of colon 685346726 Z12.11 Has cologaurd box at home, shares bathroom with her brother and father so has been a little nervous to complete the sample- states will try to complete at home in the next few weeks Gynecologi c examination [id number] Z01.[address] Used to follow with Dr[address] 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 She states her BP is usually well controlled , she is seeing her cardiologi st again in the next few weeks so will make sure levels are stable.- Sending BP cuff to pharmacy so she can keep an eye on BP at home. [id number] MD Guanaco Gray (CRANE MAN) [address] [place] [phone] 12/05/2021 11:19:28 12/06/2021 12:08:46 Postmenopausal bleeding 36002023 N95.0 56 y/o female who presents for EMB for postmenopa usal bleeding x 2 weeks. Currently on HRT per PCP x 2 years which was recently switched due to insurance issues. Had EMB in 2018 with negative pathology and TVUS showing fibroids. Pt is scheduled for repeat TVUS next Friday. PE was notable for scant blood, otherwise unremarkab le. EMB was performed as detailed in the procedure note. Will follow up with pathology. [id number] ERA PENA (Adult Med) [address] [place] [address] 12/28/2021 11:16:47 12/31/2021 12:53:00 Postmenopausal bleeding 04558668 N95.0 Recent complaint of postmenopa usal bleeding x 2 weeks. No longer bleeding. Currently on HRT x 2 years which was recently switched due to insurance issues. Had EMB in 2018 with negative pathology and TVUS showing fibroids. Repeat EMB and pelvic US came back normal- atrophic endometriu m can cause irregular uterine bleeding and spotting, will continue to monitor Menopausal syndrome 1237 36665 N95.9 Went through menopause around 2-3 years agoUsed to follow with Dr. Sterling for OBGYN [facility] who started her on HRT, Admits the hormone therapy does not seem to be helping much. Struggles most with mood swings and hot flashes. Has vaginal dryness but has not been sexually active in over 4 years so not worried about this symptom. She has a history of mood disorder, insomnia, and anxiety, follows with psychiatry who prescribed a majority of her medication s.History of HTN, takes medication daily and usually well controlled , does not check BP at home. - discussed major concerns about continuing HRT due to her multi-brie rbidities and since they do not seem to be helping her symptoms. Provided her a list of non-hormon al options we can consider to try but want to make sure is involved in this plan. Will continue hormone therapy short term as she discusses with psych team and then plan will be to titrate off HRT as we titrate up new medication . Active or passive immunization [id number] Z23 Hx of chickenpox and possible light shingles outbreak to the right thigh in the past few years- vaccine ordered to local pharmacy Morbid obesity 054767701 E66.01 Advised decreased portion sizes, good food choices, limited eating out or fast food and eliminate soda and juice from diet. Advised physical activity daily and offered encouragem ent to continue with positive changes made so far. [id number] ERA PENA (Adult Med) [address] [place] [address] 09/12/2022 09:13:03 09/13/2022 14:09:49 Obesity 860659549 E66.9 Advised decreased portion sizes, good food choices, limited eating out or fast food and eliminate soda and juice from diet. Advised physical activity daily and offered encouragem ent to continue with positive changes made so far. Menopausal syndrome 1237 38339 N95.9 Went through menopause around 3-5 years agoSymptom s of hot flashes, night sweats, mood changes, loss of libido and vaginal drynessRan out of her HRT a few months ago and notes her hot flashes have been about the same as they were while taking them. She is aware of the risks being on medication and wants to continue to try without.- plan to continue without for now, if issues arise, let me know and consider restarting Essential hypertension 67974926 I10 BP Today: 118/76Foll owing with Cardiology , they are pescribing medication sMedicatio ns: Losartan 100 - HCTZ 12.5 mg, propranolo l 20 mgHistory of HTN, takes medication daily and usually well controlled , does not check BP at home.- c/w medication s Screening mammography 24 406801 Z12.31 Last mammogram 2Deni es breast symptoms. Denies family history of breast cancer - Gave patient mammogram order during visit today, she is aware she is supposed to call and schedule herself. Uncontroll ed type 2 diabetes mellitus 859129194 E11.65 HgbA1c was 7.1 on 07/15/2022 with EndoFollow ing with Endocrinol brittani who is prescribin g all of her medication sNow has metered pump, dexcom for monitoring and on trulicity and metforminC urrently in a study for Jardiance, she is unsure if she is getting medication for placebo but thinks it has been helping- labs ordered- c/w Endo Peripheral arterial occlusive disease 875767389 I73.9 Hx of PAD, AIF with interventi on (right leg) completed by Dr. Dixon on 11/03/18, stent placed in R SFA.She has been taking ASA and clopidogre l daily without missing doses of medication s.Recent US completed by cardiology showed R SFA stent patent, mild PAD below the knees, mod-severe disease of tibial arteries- c/w cardiology care- c/w medication s Screening for malignant neoplasm of colon 618395200 Z12.11 Has cologaurd box at home, shares bathroom with her brother and father so has been a little nervous to complete the sample- states will try to complete at home in the next few weeks Body mass index 30+ - obesity 914537768 Z68.41 - Advised decreased portion sizes, good food choices, limited eating out or fast food and eliminate soda and juice from diet. Advised physical activity daily and offered encouragem ent to continue with positive changes made so far. Depression screening 171 761986 Z13.31 PHQ 2/9 was negative in office today (0 out of 27) Serum crea tinine above reference range 434213208 R79.[address] Washburn's for nephrology care but missed most recent f/u, no recent labs here on file- will get labs and send over to nephrology Right flank pain 5227718 09 R10.9 Complainin g of R back/flank pain x 1 month, it is sharp pain and intermitte nt, no pattern to the pain but can occur at rest. No known injury. hx of elevated serum Cr levels. No prior hx of kidney stones- UA ordered- US of kidney ordered [id number] ERA PENA (Adult Med) [address] [place] [address] 12/02/2022 09:41:00 12/03/2022 11:07:29 Gynecologic examination 29761257 Z01.419 Used to follow with Dr. Sterling for OBGYN care, here today for updated pap smearLast pap in 2018, normalPost -menopause Denies vaginal and urinary complaints today- completed today, will call with results Screening mammography 24 518511 Z12.31 Last mammogram 09/2022 and normalDeni es breast symptoms. Denies family history of breast cancer- discussed results- patient declined CBE today Obesity 441728456 E66.9 Advised decreased portion sizes, good food choices, limited eating out or fast food and eliminate soda and juice from diet. Advised physical activity daily and offered encouragem ent to continue with positive changes made so far. Vaginal discharge 791846 006 N89.8 Patient declined issues with vaginal discharge but moderate amount of thin white discharge noted on exam- swab completed Candidal intertrigo 2661 02940 B37.2 Admits to intermitte nt pruritic rash on the left groin area, responds well to Nystatin cream at home.- discussed causes of candidiasi s and ways to prevent- c/w topical nystatin at home, let us know if she needs refills [id number] ERA PENA (Adult Med) [address] [place] [address] 11/19/2022 12:19:40 11/21/2022 16:06:51 Allergic disposition 054056501 T78.40XS R ear pain, sinus headaches and clear rhinorrhea x 1 week. She is taking ladi daily which usually helps but does not seem to be helping at this time. Ears feel full per patient. No other symptoms.- c/w daily allergy pill- start nasal spray at night once daily- c/w supportive care at home- let me know if symptoms get worse Otalgia of right ear 641 3715733 H92.01 R ear pain, sinus headaches and clear rhinorrhea x 1 week. Ears feel full per patient.- no evidence of infection on exam, TMs bulging bilaterall y- findings likely due to worsening seasonal allergies at this time Obesity 348409405 E66.9 Advised decreased portion sizes, good food choices, limited eating out or fast food and eliminate soda and juice from diet. Advised physical activity daily and offered encouragem ent to continue with positive changes made so far. [id number] MARITA LOYA (Adult Med) [address] [place] [phone] 02/26/2023 10:34:43 02/27/2023 10:26:53 Verruca vulgaris 59953207 B07.9 You had a biopsy performed today. We will call you with these results. This may take 7-10 days. See below for how to care for the site. WOUND CARE INSTRUCTIO NS If you have a bandage, please leave your bandage on overnight. Starting the next day, cleanse your wound with mild soap and water and gently pat dry. Avoid soaking in bath or dishwater. Apply petroleum jelly to the wound after cleaning the wound and, as needed, throughout the day to keep the area moist and prevent a scab from forming. Cover the wound with a Band-Aid or appropriat e dressing. For pain, you may take acetaminop hen (extra or regular strength), 2 tablets every four hours as needed for pain. Do not exceed the recommende d limit on the directions . Avoid ibuprofen containing products or related products(M otrin, Advil, Aleve, aspirin, etc) unless prescribed by your physician. Avoid any trauma of activity that may open your surgical wound. Notify your physician if you have: Bleeding that does not stop after 20 minutes of continuous pressure. Yellowish/ greenish discharge from the treated area Increasing tenderness or pain Warmth of the area and/or fever over 101 F Red streaks up the arm or leg close to the treated area Body mass index 30+ - obesity 679235251 Z68.37 37.9 Depression screening 171 501001 Z13.31 PHQ9- 7 out of 27 Mental hea lth screening 374223616 Z13.39 GAD7- 4 out of 21 [id number] MARITA LOYA (Adult Med) [address] [place] [address] 04/29/2023 11:43:07 05/06/2023 09:53:06 Body mass index 30+ - obesity 642268279 Z68.38 38.1 Depression screening 171 781474 Z13.31 PHQ9- {{Negative * Positive Mild Mode rate Sever e}} (3 out of 27) Mental hea lth screening 454867737 Z13.39 GAD7- {{Negative * Positive Mild Mode rate Sever e}} (1 out of 21) Skin tag 042216944 L91.8 Candidiasis of skin 4988 3006 B37.2 Pain of bi lateral hands 7401962718 3711926 M79.641 M79.642 Start PT and f/u orthopedic surgeon [id number] MD Guanaco CHAVARRIA ([employer] [employer]) [address] [place] [address] 02/16/2024 10:03:40 02/26/2024 15:30:17 Abnormal uterine bleeding 8091478564 9100 N93.9 Postmenopa usal female presenting with AUB, no history of offset press operator cancers will order pelvic ultrasound at this time and follow-up on results can consider EMB at that time Health Concerns Section Related Observation LastModified by Organization Detai ls LastModified Time None Recorded Concern Status LastModified by Organization Details LastModified Time None Recorded Advance Directives Directive N: Payers Encounter Date Sequence Insurance Name Policy Number Policy Arechiga Covered Member ID Arechiga Member ID Guarantor Name 11/19/2022 1 [facility] ON OR AFTER 08/24/20 (MEDICAID REPLACEMENT - HMO) Sandy Lopez [id number] Sandy Lopez 12/02/2022 1 [facility] ON OR AFTER 08/24/20 (MEDICAID REPLACEMENT - HMO) Sandy Lopez [id number] Sandy Lopez 02/26/2023 1 [facility] ON OR AFTER 08/24/20 (MEDICAID REPLACEMENT - HMO) Sandy Lopez [id number] Sandy Lopez 04/29/2023 1 [facility] ON OR AFTER 08/24/20 (MEDICAID REPLACEMENT - HMO) Sandy Lopez [id number] Sandy Lopez 02/16/2024 1 [facility] ON OR AFTER 08/24/20 (MEDICAID REPLACEMENT - HMO) Sandy Lopez [id number] Sandy Lopez Notes Date Note Type Note Provider Name and Address Organization Details Recorded Time 11/19/2022 text/html 57 year old jad christine with a history of seasonal allergies presents today for R ear pain, sinus headaches and clear rhinorrhea x 1 week. She is taking ladi daily which usually helps but does not seem to be helping at this time. Ears feel full per patient. Denies fever, chills, nausea, vomiting, sore throat, purulent rhinorrhea, dizziness, or tinnitus. ERA PENA Attn: [address] [place], [address], [facility] 11/19/2022 14:05:06 12/02/2022 text/html 57 year old post-menopause female presents today for WWE.Last pap smear was in 2018, normal. Hx of tubal ligation.Last mammogram was 09/2022 and normal.Admits to intermittent pruritic rash on the left groin area, responds well to Nystatin cream at home. Denies fever, chills, nausea, vomiting, pelvic pain, vaginal discharge, vaginal lesions, dysuria, urinary frequency, and hematuria. ERA PENA Attn: [address] [facility], [place], [address], [facility] 12/02/2022 10:47:32 02/26/2023 text/html 57-year-old fema le c/o spot on her back that itches. She has her father look at it and he stated that it was dry and that she should get it looked at. She started noticing the itching for a couple weeks but not sure how long it has been there in general. Pt denies having to use anything for it.Pt also had a skin tag on the medial side of her R thigh but she states that it is no longer there. ANDREW EMERSON PA-C Attn: [address] [place], [address], [facility] 02/26/2023 12:32:46 04/29/2023 text/html 57-year-old female here c/o skin tags under R breast and red rash under both breasts. States was given nystatin before and it helped but ran out recently and hasn't been able to use it. She is also stating that her orthopedic surgeon sent her for PT for cleopatra hand pain and numbness, will start PT this week. Denies SOB, TIRADO, CP at this time ANDREW EMERSON PA-C Attn: [address] [place], [address], [facility] 04/29/2023 12:43:09 02/16/2024 text/html 58 menopausal woman here with c/o of bleeding for the last 8 days. Iniatally bright red but now dark red, is having some cramping, has had an episodes of bleeding since being menopausal that was worked up and negative for any pathology and self-resolved without intervention.Denie s any sick symptoms such as fever, no discharge, denies any trauma. MARRY CEJA MD Attn: [address] , [place], [address], [place] [facility] 02/19/2024 23:03:46 OBGyn Episode Ob Episode Information Episode Created Date Number of Fetuses Patient Bloodtype Patient rh Status Prepregnancy Weight lbs Domestic Partner Domestic Partner Phone Father Name Group Therapist Status 05/06/19 18 1 CLOSED Fetus Data First Name Last Name Admitted to NICU Weight (g) Sex Living Outcome Pediatric Complications Fetus ID Race Codes Race Delivery Type 4819.41 5 F Demise [id number] Je Calculation Initial Je Date Initial Exam Date Initial Exam Provider Initial Ultrasound Date Last Menstrual Period Date Ultra Sound Weeks Gestation 0 Eighteen To Twenty Week Je Update Ultra Sound Date Fundal Height At Umbil Quickening Date Ultra Sound Latest Weeks Gestation Final Je Confirmed By Final Je Confirmed Date Final Je Date Ultra Sound Latest Days Gestation 0 0 Menstrual History Last Menstrual Date Menses Monthly On Bcp Conception Prior Menses Frequency Hcg Plus Date Menarche Onset Age Delivery Information Delivery Date Delivery Type Labor Anesthesia Weeks Gestation Incision Type Labor Labor Length Hrs Delivered By Post Complications Tubal Sterilization Discharge Date Comments 8 Regional-Ep idural 38 false born in [facility] a Discharge Information Feeding Method Contraceptive Method Maternal HG B and HCT Levels Ob Episode Information Episode Created Date Number of Fetuses Patient Bloodtype Patient rh Status Prepregnancy Weight lbs Domestic Partner Domestic Partner Phone Father Name Group Therapist Status 05/06/19 18 1 CLOSED Fetus Data First Name Last Name Admitted to NICU Weight (g) Sex Living Outcome Pediatric Complications Fetus ID Race Codes Race Delivery Type 3345.24 1 F Prematur e 71332 Repeat Je Calculation Initial Je Date Initial Exam Date Initial Exam Provider Initial Ultrasound Date Last Menstrual Period Date Ultra Sound Weeks Gestation 0 Eighteen To Twenty Week Je Update Ultra Sound Date Fundal Height At Umbil Quickening Date Ultra Sound Latest Weeks Gestation Final Je Confirmed By Final Je Confirmed Date Final Je Date Ultra Sound Latest Days Gestation 0 0 Menstrual History Last Menstrual Date Menses Monthly On Bcp Conception Prior Menses Frequency Hcg Plus Date Menarche Onset Age Delivery Information Delivery Date Delivery Type Labor Anesthesia Weeks Gestation Incision Type Labor Labor Length Hrs Delivered By Post Complications Tubal Sterilization Discharge Date Comments 3 Regional-Ep idural 36 false Born in [facility] a Discharge Information Feeding Method Contraceptive Method Maternal HG B and HCT Levels Ob Episode Information Episode Created Date Number of Fetuses Patient Bloodtype Patient rh Status Prepregnancy Weight lbs Domestic Partner Domestic Partner Phone Father Name Group Therapist Status 05/06/19 18 1 CLOSED Fetus Data First Name Last Name Admitted to NICU Weight (g) Sex Living Outcome Pediatric Complications Fetus ID Race Codes Race Delivery Type 4422.52 2 M Prematur [place] 73794 Repeat Je Calculation Initial Je Date Initial Exam Date Initial Exam Provider Initial Ultrasound Date Last Menstrual Period Date Ultra Sound Weeks Gestation 0 Eighteen To Twenty Week Je Update Ultra Sound Date Fundal Height At Umbil Quickening Date Ultra Sound Latest Weeks Gestation Final Je Confirmed By Final Je Confirmed Date Final Je Date Ultra Sound Latest Days Gestation 0 0 Menstrual History Last Menstrual Date Menses Monthly On Bcp Conception Prior Menses Frequency Hcg Plus Date Menarche Onset Age Delivery Information Delivery Date Delivery Type Labor Anesthesia Weeks Gestation Incision Type Labor Labor Length Hrs Delivered By Post Complications Tubal Sterilization Discharge Date Comments 0 Regional-Ep idural 36 false born in [facility] a Discharge Information Feeding Method Contraceptive Method Maternal HG B and HCT Levels
--- OUTSIDE RECORDS SUMMARY | 2024-03-03 15:28 | XMS_ITS | Encounter Summary ---
Author Organization [facility] Address [address] [place] [address] Phone Care Team Providers Care Craps Dealer Name Role Phone Giselle Lamas JOSSELIN Primary Care Provider [phone] Reason for Visit * Reason Comments Medication Refill Encounter Details Date Type Department Care Team (Late st Contact Info) Description 07/22/2019 Refill [facility] - Endocrinology - [place] [address] [place] [phone] Steve Givens MD [address] [phone] Medication Refill Social History Tobacco Use Types [...] Telephone Encounter - Eunice Ortiz RN - 07/23/2019 1:15 PM CDT Patient notified that Rx has been sent to pharmacy. Patient stated that she has an appointment witha new head of digital and will no longer be seeing Dr. Givens. * Telephone Encounter - Steve Givens MD - 07/23/2019 1:06 PM CDT Rx sent If the patient still has [employer] insurance, please advise her to get further Rx from her PCP or new endocrinology office * Telephone Encounter - Almita Al CMA - 07/23/2019 8:18 AM CDT Patient calling requesting refill of: Requested Prescriptions Pending Prescriptions Disp Refills ??? BASAGLAR KWIKPEN 100 UNIT/ML Solution Pen-injector [Pharmacy Med Name: BASAGLAR 100UNIT INJ] 24mL Sig: INJECT 38 UNITS SUBCUTANEOUSLY EVERY TWELVE HOURS Last fill: Patients next office visit with ENDO is: Left message for patient to call back and schedule. documented in this encounter Plan of Treatment Not on file documented as of this encounter Visit Diagnoses Not on filedocumented in this encounter Care Teams Craps Dealer Relationship Specialty Start Date End Date Giselle Lamas PAC [address] [place] [address] PCP - General Physician Dairy Nutrition Consultant 08/01/17 documented as of this encounter
--- OUTSIDE RECORDS SUMMARY | 2024-03-03 15:28 | XMS_ITS | Referral Summary ---
Author Organization [facility] Address [address] [place] [address] Care Team Providers Care Order Checker Packer Processer Name Role Phone Vilma Herrera PA-C Primary Care Provider + Source Comments [facility],non-owned Affiliates and Associated Physician Practices is amultiple site organization consisting of ambulatory clinics and hospital sitesin [place], [place], [place] and [place]. This disclosure is being madepursuant to the Care Everywhere program and may not contain all information available regarding this patient. Last updated 17.[facility] [employer] Allergies Active Allergy Reactions Criticality Noted Date [...] mouth 2 times daily Active nystatin (MYCOSTATIN) 554411 UNIT/GM cream Apply to affected area 2 [...] Active Active Problems No known active problems Social [...] Comments Blood Pressure 120/64 04/14/2019 3:23 PM CYLINDER INSPECTOR Pulse 70 04/14/2019 3:23 PM CYLINDER INSPECTOR Temperature 36.9 ??C (98.4 ??F) 04/14/2019 3:23 PM CS T Respiratory Rate - - Oxygen Saturation - - Inhaled Oxygen Concentration - - Weight 110.2 kg (243 lb) 04/14/2019 3:23 PM CYLINDER INSPECTOR Height 162.6 cm (5' 4 ) 04/14/2019 3:23 PM CYLINDER INSPECTOR Body Mass Index 41.71 04/14/2019 3:23 PM CYLINDER INSPECTOR Plan of Treatment Not on file Procedures Procedure Name Priority Date/Time Associated Diagnosis Comments COMPREHENSIVE METABOLIC PANEL Routine 12/30/2018 2:42 PM CYLINDER INSPECTOR Arthralgia, unspecified joint Dry eye Sicca, unspecified type (HCC) from Last 3 Months or Most Recently Relevant to Health Maintenance Results * (ABNORMAL) COMPREHENSIVE METABOLIC PANEL (12/30/2018 2:42 PM CYLINDER INSPECTOR) BUN 21 7 - 26 mg/dL 12/30/2018 3:54 PM [facility] Creatinine 0.9 0.6 - 1.2 mg/dL 12/30/2018 3:54 PM [facility] Sodium 141 136 - 145 mmol/L 12/30/2018 3:54 PM [facility] Potassium 4.4 3.5 - 4.5 mmol/L 12/30/2018 3:54 PM [facility] Chloride 105 98 - 107 mmol/L 12/30/2018 3:54 PM [facility] CO2 25 22 - 29 mmol/L 12/30/2018 3:54 PM [facility] Glucose 174(H) 70 - 115 mg/dL 12/30/2018 3:54 PM [facility] Calcium 10.8(H) 8.4 - 10.2 mg/dL 12/30/2018 3:54 PM CYLINDER INSPECTOR [facility] Protein Total 7.5 6.0 - 8.3 g/dL 12/30/2018 3:54 PM [facility] Albumin 3.8 3.4 - 5.0 g/dL 12/30/2018 3:54 PM [facility] Bilirubin Total 0.2 0.2 - 1.2 mg/dL 12/30/2018 3:54 PM [facility] Alkaline Phosphatase 73 40 - 150 Units/L 12/30/2018 3:54 PM [facility] ALT 38 0 - 55 Units/L 12/30/2018 3:54 PM [facility] AST 39(H) 5 - 34 Units/L 12/30/2018 3:54 PM [facility] Anion Gap 15 8 - 18 12/30/2018 3:54 PM [facility] BUN/Creatinine Ratio 23 7 - 23 12/30/2018 3:54 PM [facility] Osmolality Calculated 299 270 - 300 mOsm/kg 12/30/2018 3:54 PM [facility] Albumin/Globulin Ratio 1.0(L) 1.1 - 2.3 12/30/2018 3:54 PM [facility] eGFR >60 >60 mL/min/1.7 3 m2 12/30/2018 3:54 PM [facility] Blood BLOOD SPECIMEN / Unknown Lab Venipuncture / Unknown 12/30/2018 2:42 PM CYLINDER INSPECTOR 12/30/2018 3:19 PM CYLINDER INSPECTOR Emma Borges MD LAB - CHEMISTRY ORDERABLES Performing Organization Address City/State/[facility] Co de Phone Number [facility] [address] [phone] from Last 3 Months or Most Recently Relevant to Health Maintenance Care Teams Order Checker Packer Processer Relationship Specialty Start Date End Date Vilma Herrera PA-C [address] [place] [phone] PCP - General 01/05/19
--- OUTSIDE RECORDS SUMMARY | 2024-03-03 15:28 | XMS_ITS | Encounter Summary ---
Author Organization [facility] Address [address] [place] [address] Phone Care Team Providers Care Bottom Bleacher Name Role Phone Giselle Lamas Primary Care Provider [phone] Reason for Visit * Reason Comments Medication Refill Encounter Details Date Type Department Care Team ([facility] st Contact Info) Description 01/31/2020 Refill [facility] - Endocrinology [facility] [address] [place] [phone] Steve Givens MD [address] [phone] Medication Refill Social History Tobacco Use Types [...] Telephone Encounter - Noy Myles RN - 02/01/2020 8:17 AM [facility] Pharmacy notified via [employer] [facility] documented in this encounter Plan of Treatment Not on file documented as of this encounter Visit Diagnoses Not on filedocumented in this encounter Care Teams Bottom Bleacher Relationship Specialty Start Date End Date Giselle Lamas PAC [address] [place] [address] PCP - General Physician Architect Internship 08/01/17 documented as of this encounter
--- OUTSIDE RECORDS SUMMARY | 2024-03-03 15:28 | XMS_ITS | Clinical Summary ---
Author Organization [facility] Address [address] [place] [address] Phone Care Team Providers Care Claims Assistant Name Role Phone AdamsGiselle JOSSELIN Primary Care Provider Allergies Active Allergy Reactions Criticality Noted Date Comments Codeine Vomiting 08/01/2017 Nsaids Unknown 08/01/2017 Medications citalopram (CELEXA) 20 MG Tablet Take 20 mg by mouth. Active hydroCHLOROthi azide 12.5 MG Tablet Take by mouth. Activ e Lancets MiscIndication s:Type 2 diabetes mellitus with hyperglycemia, with long-term current use of insulin (HCC) Test 4x daily 400 Lancet 3 8 Active Blood Glucose Monitoring Suppl Device Test 4x daily. 1 Each 8 Active Glucose Blood Strip Test 4 times daily. 400 Strip 3 8 Active DULoxetine (CYMBALTA) [address] Particles Take 30 mg by mouth 2 times daily. Active mirtazapine (REMERON) 15 MG Tablet 15 mg nightly. 0 8 Active zolpidem (AMBIEN) 10 MG Tablet Take 10 mg by mouth nightly as needed. Active raNITIdine (ZANTAC) 150 MG Tablet Take 150 mg by mouth 2 times daily. Active Norethindrone Acetate 5 MG Tablet 9 Active Insulin Pen Needle (PEN NEEDLES) 32G X 6 MM Misc 4 times a day 400 Each 3 9 Active Insulin Syringe-Needle U-100 (INSULIN SYRINGE 1CC/31GX5/16 ) 31G X 5/16 1 ML Misc Twice a day 200 Each 3 9 Active CALCIUM 600-D 600-400 MG-UNIT Tablet 9 Active estradiol (ESTRACE) 0.5 MG Tablet Take 0.5 mg by mouth daily. 4 9 Active lisinopril (PRINIVIL, ZESTRIL) 10 MG Tablet TAKE 1 TABLET BY MOUTH EVERY DAY 90 Tab 1 9 Active atorvastatin (LIPITOR) 80 MG Tablet TAKE 1 TABLET BY MOUTH DAILY 90 Tab 1 0 Active BASAGLAR KWIKPEN 100 UNIT/ML Solution Pen-injector INJECT 38 UNITS SUBCUTANEOUSLY EVERY TWELVE HOURS 30 mL 0 Active metFORMIN (GLUCOPHAGE) 1000 MG Tablet TAKE 1 TABLET BY MOUTH TWICE A DAY WITH FOOD 180 Tab 0 Active insulin aspart (NOVOLOG) 100 UNIT/ML Solution INJECT 50 UNITS BEFORE EACH MEAL UP TO 200 UNITS DAILY 60 mL 0 Active Active Problems Problem Noted Date Diagnosed Date Type 2 diabetes mellitus wit h hyperglycemia, with long-term current use of insulin 07/14/2018 Class 3 severe obesity due t o excess calories with serious comorbidity and body mass index (BMI) of 40.0 to 44.9 in adult 07/14/2018 Tobacco abuse 07/14/2018 Uncontrolled type 2 diabetes mellitus with hyper glycemia 11/03/2017 Family History Medical History Relation Name Comments Diabetes Father Hypertension Mother Relation Name Status Comments Father Mother Social History Tobacco Use Types Packs/Day Years Used Date Smoking Tobacco: Every Day Cigarettes 0.5 30 Smokeless Tobacco: Never Tobacco Cessation:Ready to Q uit: No; Counseling Given: Yes Alcohol Use Standard Drinks/Week Comments Yes 0 [...] Sign Reading Time Taken Comments Blood Pressure 160/88 10/15/2018 10:28 AM CDT Pulse 87 10/15/2018 10:28 AM CDT Temperature 36.3 ??C (97.4 ??F) 10/15/2018 10:28 AM C DT Respiratory Rate 18 10/15/2018 10:28 AM CDT Oxygen Saturation 98% 10/15/2018 10:28 AM CDT Inhaled Oxygen Concentration - - Weight 109.3 kg (241 lb) 10/15/2018 10:28 AM CDT Height 162.6 cm (5' 4 ) 10/15/2018 10:28 AM CDT Body Mass Index 41.37 10/15/2018 10:28 AM CDT Plan of Treatment Health Maintenance Due Date Last Done Comments Diabetes: Foot Exam 1965 Hepatitis C Virus (HCV) Screening 1965 Hepatitis B Immunization (1 of 3 - 19+ 3-dose series) 06/09/1986 Pap Smear 06/09/1988 Pneumococcal Immunization (50+ years) (2 of 2 - PCV) 02/24/1990 02/24/1989 Cervical Cancer Screening (CCS) 06/09/1997 HPV/Cotest 06/09/1997 Colonoscopy 06/09/2012 Colorectal Cancer Screening 06/09/2012 Cologuard 06/09/2017 Immunochemical Fecal Occult Blood 06/09/2017 Mammogram 06/09/2017 Zoster Immunization (1 of 2) 06/09/2017 Diabetes: Eye Exam 08/08/2018 08/08/2017 Diabetes: Nephropathy Screening 09/05/2019 09/04/2018, 08/01/2017 Diabetes: Hemoglobin A1c 05/18/2020 020, 09/13/2019, 09/04/2018, Additional history exists Influenza Immunization (#1) 10/26/202310/25, 10/29/2017, 12/25/2016 SARS-COV-2 Immunization ( season) 2023 06/27/2021, 01/04/2021, 04/01/2020, Additional history exists Respiratory Syncytial Virus (RSV) Immunization (Adult) (1 - 1-dose 75+ series) 06/09/2042 Pneumococcal Immunization Combined Discontinued 02/24/1989 DTaP/Tdap/Td Immunization Discontinued 02/24/2014 TdaP Immunization Completed 02/24/2014 Meningococcal Immunization (ACWY) Aged Out No longer eligible based on patient's age to complete this topic Rotavirus Immunization Aged Out No lo nger eligible based on patient's age to complete this topic Procedures Procedure Name Priority Date/Time Associated Diagnosis Comments UR MICROALBUMIN/CREATININ E RATIO RANDOM Routine 09/04/2018 HEMOGLOBIN, A1C Routine 09/04/2018 from Last 3 Months or Most Recently Relevant to Health Maintenance Results * UR MICROALBUMIN/CREATININE RATIO RANDOM (09/04/2018) ALB/CREAT RATIO 1,296.3 Normal - Normal Urine specimen (specimen) 09/04/2018 Florin Dixon MD URINE ORDERABLES Final Result * HEMOGLOBIN, A1C (09/04/2018) HGB-A1C 8.6 % Blood specimen (specimen) 09/04/2018 Florin Dixon MD CHEMISTRY ORDERABLES Final Resul t from Last 3 Months or Most Recently Relevant to Health Maintenance Insurance MEDICAID [employer] Care Teams Claims Assistant Relationship Specialty Start Date End Date Giselle Lamas PAC [address] [place] [address] PCP - General Physician Hvac R Tech 08/01/17
--- OUTSIDE RECORDS SUMMARY | 2024-03-03 15:28 | XMS_ITS | Encounter Summary ---
Author Organization [facility] Address [address] [place] [address] Phone Care Team Providers Care Barrel Endshake Adjuster Name Role Phone Giselle Lamas Primary Care Provider [phone] Reason for Visit * Reason Onset Date Comments Medication Management 05/09/2019 Encounter Details Date Type Department Care Team (Late st Contact Info) Description 05/09/2019 Telephone [facility] - Endocrinology - [place] [address] [place] [address] Steve Givens MD [address] [phone] Medication Management Social History Tobacco Use Types Packs/Day Years [...] Telephone Encounter - Steve Givens MD - 05/09/2019 9:34 PM CDT Rx of NovoLog sent Please 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
--- OUTSIDE RECORDS SUMMARY | 2024-03-03 15:32 | XMS_ITS | Encounter Summary ---
Author Organization [facility] Address [address] [place] [address] Care Team Providers Care Manager Molecular Name Role Phone Eron Holliday NP Primary Care Provider [phone] Marialuisa Daniel NP Unavailable [phone] Leobardo Bhagat MD Unavailable [phone] Florin Dixon MD Unavailable Reason for Referral * Diagnostic Imaging (Routine) - Closed Specialty Diagnoses / Procedures Referred By Claudette smith Referred To Contact Diagnoses Aftercare following right knee joint replacement surgery Procedures XR Knee Right 3 Views Yoan Edwards PA [facility] [facility] [address] [place] [address] Phone: tel: fax: [address] [phone] Referral ID Status Reason Start Date Expiration Date Visits Re quested Visits Authorized [id number] Closed 01/01/2024 01/30/2025 1 1 IT AGENT Reason for Visit * Diagnostic Imaging (Routine) - Closed Specialty Diagnoses / Procedures Referred By Claudette smith Referred To Contact Diagnoses Aftercare following right knee joint replacement surgery Procedures XR Knee Right 3 Views Yoan Edwards PA [facility] [address] [place] [address] Phone: tel: fax: [facility] [address] [place] [phone] Referral ID Status Reason Start Date Expiration Date Visits Re quested Visits Authorized [id number] Closed 01/01/2024 01/30/2025 1 1 Encounter Details Date Type Department Care Team (Latest Contact Info) Description 01/02/2024 11:18 AM PERMIT AGENT - 01/02/2024 11:59 PM PERMIT AGENT Hospital Encounter [facility] [address] [place] [address] Aftercare following right knee joint replacement surgery Discharge Disposition: Discharge to home or self care Social History Tobacco Use Types Packs/Day Years Used Date Smoking Tobacco: Former Cigarettes Q uit: 03/20/2020 Smokeless Tobacco: Never OASIS D0700: Social Isolation Answer Da te Recorded Frequency of experiencing loneliness or isolatio n Never 10/22/2023 OASIS A1250: Transportation Answer Date Recorded Lack of Transportation (Medical) No 10/22/2023 Lack of Transportation (Non-Medical) No 10/22/2023 Patient Unable or Declines to Respond No 10/22/2023 OASIS B1300: Health Literacy Answer Mario e Recorded Frequency of needing help to read materials from doctor or pharmacy Never 10/22/2023 [facility] Utilities Answer Date Recorded In the past 12 months has e electric, gas, oil, or water company threatened to shut off services in your home? No 10/07/2023 Social Connection and Isolat ion Panel [NHANES] Answer Date Recorded In a typical week, how many times do you talk on the phone with family, friends, or neighbors? More than three times a week 10/07/2023 How often do you get togethe r with friends or relatives? More than three times a week 10/07/2023 How often do you attend chur ch or methodist services? Never 10/07/2023 Do you belong to any clubs o r organizations such as nondenominational groups, unions, fraternal or athletic groups, or school groups? No 10/07/2023 How often do you attend meet ings of the clubs or organizations you belong to? Never 10/07/2023 Are you , , di vorced, , never , or living with a partner? Never 10/07/2023 AUDIT-C Answer Date Recorded Q1: How often do you have a drink containing alcohol? Never 11/20/2023 Q2: How many drinks containi ng alcohol do you have on a typical day when you are drinking? Patient does not drink Q3: How often do you have si x or more drinks on one occasion? Never 11/20/2023 Overall Financial Resource Strain (CARDIA) Answe r Date Recorded How hard is it for you to pa y for the very basics like food, housing, medical care, and heating? Not hard at all 10/07/2023 Hunger Vital Sign Answer Date Recorded Within the past 12 months, y ou worried that your food would run out before you got the money to buy more. Never true 10/07/19 24 Within the past 12 months, t he food you bought just didn't last and you didn't have money to get more. Never true 10/07/2023 PRAPARE - Transportation Answer Date Re corded In the past 12 months, has l ack of transportation kept you from medical appointments or from getting medications? No 09/24 In the past 12 months, has l ack of transportation kept you from meetings, work, or from getting things needed for daily living? No 10/07/2023 Housing Stability Vital Sign Answer Mario e Recorded In the last 12 months, was t here a time when you were not able to pay the mortgage or rent on time? No 10/07/2023 In the past 12 months, how m any times have you moved where you were living? 0 10/07/2023 At any time in the past 12 m [facility], were you homeless or living in a fci (including now)? No 10/07/2023 Personal Safety Answer Date Recorded Have you ever been in or are you currently in a harmful physical or emotional relationship or is someone making you feel afraid or unsafe? Denies 10/06/2023 Comments No Sex and Gender Information Value Date Recorded Sex Assigned at Not on file Legal Sex Female 8:53 AM PERMIT AGENT Gender Identity Female 12/26/2023 10:11 PM CDT Sexual Orientation Straight 12/26/2023 10 :11 PM CDT Occupation Industry Job Start Date Job End Date [employer] Not on file Not on file Not on file documented as of this encounter Medications at Time of Discharge tirzepatide (Mounjaro) 10 mg/0.5 mL pen injectorIndicatio ns:type 2 diabetes mellitus Inject 10 mg under the skin every 7 days E11.65 2 mL 11 11/10/2023 alcohol swabs pads, medicated Apply 1 each topically 4 (four) times a day before meals and nightly E11.65 400 each 3 01/15/2023 aspirin 81 mg enteric coated tablet Take 1 tablet (81 mg total) by mouth daily 12/04/2018 atorvastatin (LIPITOR) 80 mg tablet TAKE 1 TABLET BY MOUTH DAILY 90 tablet 3 04/10/2023 blood glucose diagnostic (glucose blood) strip Check blood sugar 3x times a day or as directed. E11.65 100 each 5 09/22/2023 blood-glucose meter kit Use daily as directed for monitoring of blood sugar for diabetes, e11.65 1 kit 1 09/22/2023 blood-glucose transmitter (Dexcom G6 Transmitter) device busPIRone (BUSPAR) 7.5 mg tablet 10/17/2023 citalopram (CeleXA) 20 mg tablet Take 1.5 tablets (30 mg total) by mouth every morning 12/17/2021 clopidogreL (PLAVIX) 75 mg tablet Take 1 tablet (75 mg total) by mouth daily ezetimibe (ZETIA) 10 mg tablet TAKE 1 TABLET BY MOUTH DAILY 28 tablet 05/24/2021 famotidine (PEPCID) 20 mg tablet Take 1 tablet (20 mg total) by mouth 2 (two) times a day 04/25/2020 fexofenadine (ADELA) 180 mg tablet Take 1 tablet (180 mg total) by mouth daily 04/09/2022 insulin lispro (HumaLOG) 100 unit/mL vial for injection USE PER INSULIN PUMP MAX OF 150 UNITS DAILY NEEDED 50 mL 11 09/18/2023 insulin lispro (HumaLOG) 200 unit/mL (3 mL) pen for injectionIndicati ons:type 2 diabetes mellitus Inject 0.08 mL (16 Units total) under the skin 3 (three) times a day before meals When insulin pump fails. E11.65 pump has failed. 15 mL 5 12/25/2021 insulin pump cart,cont inf,BT (Omnipod Dash Pods, Gen 4,) cartridge CHANGE OMNIPOD POD EVERY 48 HOURS insulin syringe-needle U-100 1 mL 31 gauge x 5/16 syringe Twice a day 07/13/2018 Jardiance 25 mg tablet TAKE 1 TABLET BY MOUTH DAILY 90 tablet 3 10/16/2023 lancets misc 1 each by other route daily Use to monitor blood sugar daily. E11.65 100 each 3 09/22/2023 losartan-hydroCHL OROthiazide (HYZAAR) 100-12.5 mg per tablet Take 1 tablet by mouth daily 04/09/2022 meclizine (ANTIVERT) 25 mg tablet Take 1 tablet (25 mg total) by mouth as needed 02/11/2022 metFORMIN (GLUCOPHAGE) 1,000 mg tablet TAKE 1 TABLET BY MOUTH TWICE A DAY WITH FOOD 180 tablet 4 06/30/2023 nystatin creamIndications: as needed for rash 04/30/2023 Omnipod Dash Pods, Gen 4, cartridge Inject 1 Device under the skin daily E11.65 30 each 11 03/18/2023 One[facility] Plus [facility]et [facility] 09/23/2023 OneTouch Verio Flex meter [facility] [place] 09/23/[address] (PROTONIX) 40 mg EC tablet Take 1 tablet (40 mg total) by mouth daily 05/30/2023 pen needle, diabetic (TRUEplus Pen Needle) 32 gauge x 5/32 needle TRUEplus Pen Needle 32 gauge x 5/32 pen needle, diabetic 32 gauge x 5/32 needle Use to inject insulin up to 4times/day. E11.65 150 each 11 12/25/2021 propranoloL (INDERAL) 20 mg tablet Take 1 tablet (20 mg total) by mouth 2 (two) times a day SUMAtriptan (IMITREX) 50 mg tablet Take 1 tablet (50 mg total) by mouth once as needed Tab-A-Emily 400 mcg tabletIndications :Vitamin Deficiency Prevention Take 1 tablet by mouth daily 08/27/2023 zolpidem (AMBIEN) 10 mg tablet Take 1 tablet (10 mg total) by mouth nightly as needed blood-glucose sensor (Dexcom G7 Sensor) device Dexcom G7 Sensor device 1 Device continuously . Change every 10 days. E11.65 10 each 3 12/13/2022 4 documented as of this encounter Discharge Disposition Disposition Code Departure Means Destination Discharge to home or self care documented in this encounter Plan of Treatment Not on file documented as of this encounter Procedures Procedure Name Priority Date/Time Associated Diagnosis Comments XR KNEE RIGHT 3 VIEWS Schedule Routine, Read Routine (OP Routine) 01/02/2024 12:46 PM PERMIT AGENT Aftercare following right knee joint replacement surgery documented in this encounter Results * XR Knee Right 3 Views (01/02/2024 12:46 PM PERMIT AGENT) Anatomical Region Laterality Modality Lower Extremities, Knee Right Computed Radiography 01/04/2024 7:55 AM PERMIT AGENT Narrative 01/04/2024 8:03 AM PERMIT AGENT EXAM DESCRIPTION: XR KNEE RIGHT 3 VIEWS REASON FOR STUDY: pain ?? Follow up, mild pain ? FINDINGS: Three views submitted with comparison 11/20/2023. Right total knee arthroplasty is in near anatomic alignment. ??There are no fractures or evidence of loosening. ??A right knee effusion is present. IMPRESSION: Right total knee arthroplasty in near anatomic alignment. Right knee effusion. THIS IS AN ELECTRONICALLY VERIFIED FINAL REPORT 01/04/2024 8:03 AM - Electronically signed by ??Lamont MONGE: MARIPOSA D: ??01/04/2024 8:03 AM T: ??01/04/2024 8:03 AM Report ID: [id number] Reading Location: ??[id number] Procedure Note Lamont Hidalgo MD - 01/04/2024 EXAM DESCRIPTION: XR KNEE RIGHT 3 VIEWS REASON FOR STUDY: pain Follow up, mild pain FINDINGS: Three views submitted with comparison 11/20/2023. Right total knee arthroplasty is in near anatomic alignment. There are no fractures or evidence of loosening. A right knee effusion is present. IMPRESSION: Right total knee arthroplasty in near anatomic alignment. Right knee effusion. THIS IS AN ELECTRONICALLY VERIFIED FINAL REPORT 01/04/2024 8:03 AM - Electronically signed by Lamont Hidalgo M.D. MF: [email or web address] Report ID: [id number] Reading Location: [place] [address] Yoan Edwards ERA IMG XR PROCEDURES Final Result documented in this encounter Visit Diagnoses Diagnosis Aftercare following right knee joint replacement surgery documented in this encounter Care Teams Manager Molecular Relationship Specialty Start Date End Date Eron Holliday NP [address] [place] [id number] PCP - General Pain Management 07/15/22 Marialuisa Daniel NP [address] [place] [address] Nurse Practitioner Endocrinology Diabetes & Metabolism 09/22/23 Leobardo Bhagat MD [address] [place] [address] [address] Consulting Physician Nephrology 09/22/23 [place] [id number] [address] Consulting Physician Cardiovascular Disease 09/22/23 documented as of this encounter
--- OUTSIDE RECORDS SUMMARY | 2024-03-03 15:32 | XMS_ITS | Encounter Summary ---
Author Organization [facility] Address [address] [place] [id number] Care Team Providers Care Wringer Operator Name Role Phone Eron Holliday NP Primary Care Provider [phone] Marialuisa Tyson NP Unavailable [phone] Leobardo Bhagat MD Unavailable Florin Dixon MD Unavailable Reason for Visit * Reason Comments Diabetes Type 2 Encounter Details Date Type Department Care Team (Late st Contact Info) Description 01/21/2024 10:30 AM AUTO SERVICE STATION ATTENDANT Office Visit [facility] Diabetes Endocrine Care at [address] [place] [address] Marialuisa Tyson, DIAL MOUNTER [address] [place] [address] [address] [place] [id number] Type 2 diabetes mellitus with hypoglycemia without coma, with long-term current use of insulin (HCC) (Primary Dx); Hypertension associated with type 2 diabetes mellitus (HCC); Hyperlipidemia associated with type 2 diabetes mellitus (HCC); dexcom 7 continous glucose monitor; Omnipod Dash Insulin pump in place; Class 1 obesity due to excess calories with serious comorbidity and body mass index (BMI) of 33.0 to 33.9 in adult Social History Tobacco Use Types Packs/Day Years Used Date Smoking Tobacco: Former Cigarettes Q uit: 03/20/2020 Smokeless Tobacco: Never Tobacco Cessation:Counseling Given: Not Answered OASIS D0700: Social Isolation Answer Da te [...] materials from doctor or pharmacy Never 10/22/2023 [facility] Utilities Answer Date Recorded In the past 12 months has th e electric, gas, oil, or water company [...] often do you attend chur ch or uatsdin services? Never 10/07/2023 Do you belong to any clubs o r organizations such as mormon groups, unions, fraternal or athletic groups, or [...] any time in the past 12 m [facility], were you homeless or living in a snf (including now)? No 10/07/2023 Personal Safety Answer Date Recorded Have you ever been in or are you currently in a harmful physical or emotional relationship or is someone making you feel afraid or unsafe? Denies 10/06/2023 Comments No Sex and Gender Information Value Date Recorded Sex Assigned at Not on file Legal Sex Female 8:53 AM AUTO SERVICE STATION ATTENDANT Gender Identity Female 12/26/2023 10:11 PM CDT Sexual Orientation Straight 12/26/2023 10 :11 PM CDT Occupation Industry Job Start Date Job End Date [employer] Not on file Not on file Not on file documented as of this encounter Last Filed Vital Signs Vital Sign Reading Time Taken Comments Blood Pressure 116/60 01/21/2024 10:34 AM AUTO SERVICE STATION ATTENDANT Pulse - - Temperature - - Respiratory Rate - - Oxygen Saturation - - Inhaled Oxygen Concentration - - Weight 91.9 kg (202 lb 11.2 oz) 024 10:34 AM AUTO SERVICE STATION ATTENDANT Height 165.1 cm (5' 5 ) 01/21/2024 10:3 4 AM AUTO SERVICE STATION ATTENDANT Body Mass Index 33.73 01/21/2024 10:34 AM AUTO SERVICE STATION ATTENDANT documented in this encounter Patient Instructions * Patient Instructions* Marialuisa Tyson, CHRISTOPHER - 01/21/2024 10:30 AM AUTO SERVICE STATION ATTENDANT Thanks for coming in today. I am thankful you have trusted me with your care, and hope that you received EXCELLENT care today! Please do not hesitate to call if you have any questions or concerns at [phone]. You may receive a phone call or text asking about your care today. I would love to hear your input and again, hope your visit was as EXCELLENT as possible, even if you were not feeling your best! Medications: Please take medications as prescribed. Continue on omnipod dash insulin delivery system Continue metformin 1000mg twice a day. Continue Jardiance 25 mg p.o. daily Increase mounjaro 7.5mg weekly Monitoring: Check blood sugar continuously with Dexcom 6. We will be requesting to see blood sugar at your next visit. Call office if blood sugars is dropping below 80. Call office if your blood sugar is greater than 250, for 3 days. A medication adjustment is needed. Monitor your weight, even a 10 pound weight loss can help to reduce medication. Hypoglycemia is a blood sugar below 80. If your blood sugar level is below 80, eat or drink 15 grams of fast-acting carbohydrate. (examples: 4 oz (?? cup) of fruit juice, 4 oz of regular soda or 4 glucose tablets.) Check your blood sugar level 15 minutes later. If the level is still low (less than 100 mg/dL), have another 15 grams of carbohydrate. When the level returns to 100 mg/dL, eat a snack or meal that contains carbohydrates. This will help prevent another drop in blood sugar. Nutrition: Eat healthy, include fresh fruits and vegetables daily. Eat no more than 45-60 grams of carbs per meal. Do not eat fried foods more than once per week. See the Dietitian, Automobile Locator . Call Centralized Scheduling at [phone] to make an appointment. Exercise: Try moving at least a total of 30 minutes/day. This does not have to be done at one time. Self Care and Risk Reduction: Please get a Dilated eye exam yearly and have results faxed to the office. Check Feet daily, watch for blisters, cuts or sores. Wash, dry and lotion feet daily. Notify your doctor if a wound develops. Always carry a source of fast-acting carbohydrate with you. SERVICE STATION ATTENDANT documented in this encounter Progress Notes * Marialuisa Tyson NP - 01/21/2024 10:30 AM CST Images from the original note were not included. Patient ID: Sandy Lopez is a 58 y.o. female. Chief Complaint Diabetes Type 2 Today visit is a follow up visit. She has Type 2 Diabetes associated with microalbuminurea. She does not exercises but stays active with family and friends. 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 She eats 2-3 meals/day. She monitors blood sugar by wearing the DexCom 7 sensor and receives insulin per the Omnipod insulin de livery system. She denies hypoglycemia. Her weight has decreased by 16 lbs since 07/17. 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 She has healed well and reports only some mild stiffness.She has two grandsons and is very proud of them. She reports nocturnal hypoglycemia around 2:00 a.m. in the morning associated with sweating. Today's visit is to review labs and discuss future plan. Diabetes regimen: continue Omnipod -Basal adjusted 0000-2.15, 0800-2.5, IC -6, ISF-20, Active insulin time 3hrs., TARGET GLUCOSE 110- correct above 120. Continue Metformin 1000mg twice a day. Continue Jardiance 25 mg p.o. daily. continue mounjaro 10 mg weekly Failed Trulicity stopped 10/29/2022. Failed victoza 01/27/2023. Subjective/Objective Review of Systems Constitutional: Positive for appetite change. Negative for activity change, fatigue and unexpected weight change. HENT: Negative for congestion and sinus pressure. Eyes: Negative for pain and visual disturbance. Respiratory: Positive for cough. Negative for shortness of breath and wheezing. Cardiovascular: Negative for chest pain and leg swelling. Gastrointestinal: Negative for abdominal pain, constipation, diarrhea, nausea and vomiting. Endocrine: Negative for polydipsia, polyphagia and polyuria. Genitourinary: Negative for difficulty urinating and frequency. Musculoskeletal: Negative for arthralgias and neck pain. Skin: Negative for rash. Neurological: Negative for dizziness, weakness and numbness. Psychiatric/Behavioral: Negative for confusion. The patient is not nervous/anxious. Physical Exam Constitutional: Appearance: Normal appearance. She is obese. HENT: Head: Normocephalic. Right Ear: External ear normal. Left Ear: External ear normal. Nose: Nose normal. Mouth/Throat: Mouth: Mucous membranes are moist. Pulmonary: Effort: Pulmonary effort is normal. Feet: Right Foot: Monofilament exam: normal. Protective Sensation: 10 sites tested. 10 sites sensed. Left Foot: Monofilament exam: normal. Protective Sensation: 10 sites tested. 10 sites sensed. Skin: General: Skin is warm and dry. Neurological: Mental Status: She is alert and oriented to person, place, and time. Labs: Lab Results Component Value Date HGBA1C 6.1 01/21/2024 HGBA1C 7.4 (H) 09/22/2023 HGBA1C 7.4 (H) 04/28/2023 HGBA1C 7.4 01/27/2023 HGBA1C 7.6 10/29/2022 HGBA1C 7.1 (H) 07/19/2022 Chemistry Lab Results Component Value Date SODIUM 140 10/07/2023 POTASSIUM 4.3 10/07/2023 CHLORIDE 105 10/07/2023 CO2 27 10/07/2023 ANIONGAP 8 10/07/2023 BUNSER 21 10/07/2023 CREATININE 1.03 10/07/2023 GLUCOSE 145 10/07/2023 CALCIUM 9.8 10/07/2023 BILITOT 0.3 09/22/2023 ALBUMIN 4.6 09/22/2023 GFRNAA 64 10/07/2023 ALKPHOS 86 09/22/2023 AST 33 09/22/2023 ALT 26 09/22/2023 PHOS 3.5 04/28/2023 Lab Results Component Value Date ALBUMINUR 199.5 11/24/2023 CREATININEUR 107.0 11/24/2023 ALBCREATRATU 186 (H) 11/24/2023 Lab Results Component Value Date CHOL 117 11/24/2023 HDL 38 (L) 11/24/2023 TRIG 146 11/24/2023 LDLCALC 54 11/24/2023 Lab Results Component Value Date TSH 0.97 11/24/2023 TSH 0.86 07/19/2022 TSH 0.96 07/13/2021 Assessment/Plan Diagnoses and all orders for this visit: Type 2 diabetes mellitus with hypoglycemia without coma, with long-term current use of insulin ([facility]) (Primary) Assessment & Plan: This is a chronic condition which is at goal with nocturnal hypoglycemia. Omnipod adjusted . Goal is less than 7%. Personally reviewed most recent A1c - Lab Results Component Value Date HGBA1C 6.1 01/21/2024 Personally reviewed POC blood sugar- at goal of 80-180 Lab Results Component Value Date POCGLU 153 01/21/2024 Medication- continue Omnipod -Basal adjusted 0000-2.15, 0400-2.5, IC -6, ISF-20, Active insulin time 3hrs., TARGET GLUCOSE 110- correct above 120. Continue Metformin 1000mg twice a day. Continue Jardiance 25 mg p.o. daily. continue mounjaro 10 mg weekly Failed Trulicity stopped 10/29/2022. Failed victoza 01/27/2023. Monitor blood sugar continuously with cgm. Encouraged annual eye exam. Monofilament foot exam completed. Protective senses intact eGFR- 64 Kidney function-abnormal. Sees Dr. Bhagat for nephrology Urine microalbumin/creatinine ratio - elevated. Goal is <30 Continue lisinopril/hydrochlorothiazide Orders: - POCT glucose - POCT hemoglobin A1c Hypertension associated with type 2 diabetes mellitus (HCC) Assessment & Plan: This is a chronic condition which is at goal. Goal is less than 140/90 Continue lisinopril/hydrochlorothiazide Encouraged to monitor weight and B/P at home. Hyperlipidemia associated with type 2 diabetes mellitus (HCC) Assessment & Plan: This is a chronic condition which is at goal . Goal is LDL less than 70 Continue atorvastatin, Zetia Encouraged to eat healthy, include fresh fruits and vegetables daily and avoid eating fried foods more than once per week. dexcom 7 continous glucose monitor Assessment & Plan: Continuous glucose monitor (cgm) applied 01/08/24 to 01/21/24 This device was placed for monitor and treatment of blood sugar. Interpretation of data- average glucose 115, 94% time in range, 4% hyperglycemia, 1%hypoglycemia noted Omnipod Dash Insulin pump in place Assessment & Plan: This is a chronic condition which is at goal. Type of insulin pump-Omnipod dash insulin delivery system with DexCom 7 sensor with humalog Download reviewed from 01/08/2024 to 01/21/2024 PDM reprogrammed Basal 0000-2.15, 0800-2.5 IC -6 ISF-20 Active insulin time 3hrs. TARGET GLUCOSE 110- correct above 120 Total daily dose of insulin-65 units Bolus- 5 units (8%) Basal- 60 units (92%) Interpretation 100% time in range. Class 1 obesity due to excess calories with serious comorbidity and body mass index (BMI) of 33.0 to 33.9 in adult Assessment & Plan: >>ASSESSMENT AND PLAN FOR CLASS 1 OBESITY DUE TO EXCESS CALORIES WITH SERIOUS COMORBIDITY ANDBODY MASS INDEX (BMI) OF 33.0 TO 33.9 IN ADULT WRITTEN ON 01/21/2024 1:49 PM BY MARIALUISA TYSON NP This is a chronic condition which continues to improve Continue mounjaro 16 lbs. Weight loss since 07/16 Encouraged healthy eating which includes a low carb diet. Avoiding processed foods, sweets and fried foods. Encouraged 30 minutes of walking at least 5 days per week Discussed that exercise can be broken down into small sessions- for example 2- 15 minutes sessions or 3- 10 minutes sessions. Encouraged to take medications as prescribed. Discussed and educated on eating a healthy low carb diet, include fresh fruits and vegetables daily. Encouraged to try moving at least a total of 30 minutes/day. Just move more. Instructed to wash, dry lotion and check feet daily. Discussed importance of avoiding hypoglycemia and treatment of hypoglycemia. Instructed to notify office if blood sugars are less than 80 or greater than 250 for 3 days Discussion of treatment plan and prescribed medications. Return in about 3 months (around 04/22/2024). Marialuisa Tyson NP SERVICE STATION ATTENDANT documented in this encounter Miscellaneous Notes * Assessment & Plan Note - Marialuisa Tyson NP - 01/21/2024 1:52 PM CSTAssociated Problem(s): Omnipod Dash Insulin pump in place This is a chronic condition which is at goal. Type of insulin pump-Omnipod dash insulin delivery system with DexCom 7 sensor with humalog Download reviewed from 01/08/2024 to 01/21/2024 PDM reprogrammed Basal 0000-2.15, 0800-2.5 IC -6 ISF-20 Active insulin time 3hrs. TARGET GLUCOSE 110- correct above 120 Total daily dose of insulin-65 units Bolus- 5 units (8%) Basal- 60 units (92%) Interpretation 100% time in range. SERVICE STATION ATTENDANT * Assessment & Plan Note - Marialuisa Tyson NP - 01/21/2024 1:49 PM CSTAssociated Problem(s): Class 1 obesity due to excess calories with serious comorbidity and body mass index (BMI) of 33.0 to 33.9 in adult (Deleted) This is a chronic condition which continues to improve Continue mounjaro 16 lbs. Weight loss since 07/16 Encouraged healthy eating which includes a low carb diet. Avoiding processed foods, sweets and fried foods. Encouraged 30 minutes of walking at least 5 days per week Discussed that exercise can be broken down into small sessions- for example 2- 15 minutes sessions or 3- 10 minutes sessions. SERVICE STATION ATTENDANT * Assessment & Plan Note - Marialuisa Tyson NP - 01/21/2024 1:49 PM CSTAssociated Problem(s): dexcom 7 continous glucose monitor Continuous glucose monitor (cgm) applied 01/08/24 to 01/21/24 This device was placed for monitor and treatment of blood sugar. Interpretation of data- average glucose 115, 94% time in range, 4% hyperglycemia, 1%hypoglycemia noted SERVICE STATION ATTENDANT * Assessment & Plan Note - Marialuisa Tyson NP - 01/21/2024 1:48 PM CSTAssociated Problem(s): Hyperlipidemia associated with type 2 diabetes mellitus (HCC) This is a chronic condition which is at goal . Goal is LDL less than 70 Continue atorvastatin, Zetia Encouraged to eat healthy, include fresh fruits and vegetables daily and avoid eating fried foods more than once per week. SERVICE STATION ATTENDANT * Assessment & Plan Note - Marialuisa Tyson NP - 01/21/2024 1:48 PM CSTAssociated Problem(s): Hypertension associated with type 2 diabetes mellitus (HCC) This is a chronic condition which is at goal. Goal is less than 140/90 Continue lisinopril/hydrochlorothiazide Encouraged to monitor weight and B/P at home. SERVICE STATION ATTENDANT * Assessment & Plan Note - Marialuisa Tyson NP - 01/21/2024 1:48 PM CSTAssociated Problem(s): Type 2 diabetes mellitus with hypoglycemia without coma, with long-term current use of insulin ([facility]) This is a chronic condition which is at goal with nocturnal hypoglycemia. Omnipod adjusted . Goal is less than 7%. Personally reviewed most recent A1c - Lab Results Component Value Date HGBA1C 6.1 01/21/2024 Personally reviewed POC blood sugar- at goal of 80-180 Lab Results Component Value Date POCGLU 153 01/21/2024 Medication- continue Omnipod -Basal adjusted 0000-2.15, 0400-2.5, IC -6, ISF-20, Active insulin time 3hrs., TARGET GLUCOSE 110- correct above 120. Continue Metformin 1000mg twice a day. Continue Jardiance 25 mg p.o. daily. continue mounjaro 10 mg weekly Failed Trulicity stopped 10/29/2022. Failed victoza 01/27/2023. Monitor blood sugar continuously with cgm. Encouraged annual eye exam. Monofilament foot exam completed. Protective senses intact eGFR- 64 Kidney function-abnormal. Sees Dr. Bhagat for nephrology Urine microalbumin/creatinine ratio - elevated. Goal is <30 Continue lisinopril/hydrochlorothiazide SERVICE STATION ATTENDANT * Assessment & Plan Note - Marialuisa Tyson NP - 01/21/2024 1:46 PM CSTAssociated Problem(s): Type 2 diabetes mellitus with microalbuminuria, with long-term current use of insulin ([facility]) SERVICE STATION ATTENDANT * Assessment & Plan Note - Marialuisa Tyson NP - 01/21/2024 10:30 AM AUTO SERVICE STATION ATTENDANT Associated Problem(s): Class 1 obesity due to excess calories with serious comorbidity and body mass index (BMI) of 33.0 to 33.9 in adult >>ASSESSMENT AND PLAN FOR CLASS 1 OBESITY DUE TO EXCESS CALORIES WITH SERIOUS COMORBIDITY ANDBODY MASS INDEX (BMI) OF 33.0 TO 33.9 IN ADULT WRITTEN ON 01/21/2024 1:49 PM BY MARIALUISA TYSON NP This is a chronic condition which continues to improve Continue mounjaro 16 lbs. Weight loss since 07/16 Encouraged healthy eating which includes a low carb diet. Avoiding processed foods, sweets and fried foods. Encouraged 30 minutes of walking at least 5 days per week Discussed that exercise can be broken down into small sessions- for example 2- 15 minutes sessions or 3- 10 minutes sessions. SERVICE STATION ATTENDANT documented in this encounter Plan of Treatment Not on file documented as of this encounter Procedures Procedure Name Priority Date/Time Associated Diagnosis Comments POCT HEMOGLOBIN A1C Routine 01/21/2024 1 0:37 AM AUTO SERVICE STATION ATTENDANT Type 2 diabetes mellitus with hypoglycemia without coma, with long-term current use of insulin ([facility]) POCT GLUCOSE Routine 01/21/2024 10:35 AM AUTO SERVICE STATION ATTENDANT Type 2 diabetes mellitus with hypoglycemia without coma, with long-term current use of insulin ([facility]) documented in this encounter Results * POCT hemoglobin A1c (01/21/2024 10:37 AM AUTO SERVICE STATION ATTENDANT) Hemoglobin A1C, POC 6.1 4.0 - 5.6 % Blood 01/21/2024 10:3 7 AM AUTO SERVICE STATION ATTENDANT Marialuisa Tyson NP POINT OF CARE TEST ORDERABLES F inal Result * POCT glucose (01/21/2024 10:35 AM AUTO SERVICE STATION ATTENDANT) Glucose Blood, POC 153 mg/dL Blood 01/21/2024 10:3 5 AM AUTO SERVICE STATION ATTENDANT Marialuisa Tyson DIAL MOUNTER POINT OF CARE TEST ORDERABLES F inal Result documented in this encounter Visit Diagnoses Diagnosis Type 2 diabetes mellitus with hypoglycemia without coma, with long-term current use of insulin (HCC)- Primary Hypertension associated with type 2 diabetes mellitus (HCC) Hyperlipidemia associated with type 2 diabetes mellitus (HCC) dexcom 7 continous glucose monitor Omnipod Dash Insulin pump in place Insulin pump status Class 1 obesity due to excess calories with serious comorbidity and body mass index (BMI) of 33.0 to 33.9 in adult documented in this encounter Care Teams Wringer Operator Relationship Specialty Start Date End Date Eron Holliday NP [address] [facility] [place] [address] PCP - General Pain Management 07/15/22 Marialuisa Tyson, CHRISTOPHER [address] [facility] [place] [address] Nurse Practitioner Endocrinology Diabetes & Metabolism 09/22/23 Leobardo Bhagat MD [address] [place] [address] [address] Consulting Physician Nephrology 09/22/23 [place] [id number] [address] Consulting Physician Cardiovascular Disease 09/22/23 documented as of this encounter
--- OUTSIDE RECORDS SUMMARY | 2024-03-03 15:32 | XMS_ITS | Referral Summary ---
Author Organization [facility] Building [address] Address [address] [place] [address] Care Team Providers Care Researcher Name Role Phone Eron Holliday NP Primary Care Provider [phone] Marialuisa Tyson NP Unavailable [phone] Leobardo Bhagat MD Unavailable [phone] Florin Dixon MD Unavailable Lamar Slater NP Unavailable [phone] Maycol Gatica DO Unavailable [phone] Encounters Date Type Department Care Team Description 02/04/2024 9:30 AM GRINDING MILL OPERATOR Office Visit [facility] Neurosurgery Clinic [address], [address] [place] [address] Felipe Cox MD Right cervical radiculopathy (Primary Dx); Foraminal stenosis of cervical region; Cervical stenosis of spinal canal 01/21/2024 10:30 AM GRINDING MILL OPERATOR Office Visit [facility] Medical Group Diabetes Endocrine Care at [address] [place] [address] Marialuisa Tyson, AUTOMATIC NAILING MACHINE OPERATOR Type 2 diabetes mellitus with hypoglycemia without [...] (BMI) of 33.0 to 33.9 in adult 01/02/2024 11:18 AM GRINDING MILL OPERATOR - 01/02/2024 11:59 PM GRINDING MILL OPERATOR Hospital Encounter [facility] MOB 1 DIAG IMG [address] [place] [id number] Aftercare following right knee joint replacement surgery Discharge Disposition: Discharge to home or self care 01/02/2024 11:30 AM [facility] Office Visit [facility] Medical Group Orthopedics and Sports Medicine [address] [place] [phone] Yoan Edwards PA Aftercare following right knee joint replacement surgery (Primary Dx) 12/26/2023 2:15 PM CDT Therapy [facility] Medical Office Bldg 1 OP Physical Therapy [address] [place] [phone] Nora Tapia, NAPHTHOL SOAPING MACHINE OPERATOR Aftercare following right knee joint replacement surgery (Primary Dx) 12/23/2023 10:00 AM CDT Therapy [facility] Medical Office Bldg 1 OP Physical Therapy [address] [place] [phone] Nora Tapia, NAPHTHOL SOAPING MACHINE OPERATOR Aftercare following right knee joint replacement surgery (Primary Dx) 12/16/2023 9:15 AM CDT Therapy [facility] Medical Office Bldg 1 OP Physical Therapy [address] [place] [phone] Nora Tapia, NAPHTHOL SOAPING MACHINE OPERATOR Aftercare following right knee joint replacement surgery (Primary Dx) 12/11/2023 2:15 PM CDT Therapy [facility] Medical Office Bldg 1 OP Physical Therapy [address] [place] [phone] Nora Tapia, NAPHTHOL SOAPING MACHINE OPERATOR Aftercare following right knee joint replacement surgery (Primary Dx) 12/09/2023 10:00 AM CDT Therapy [facility] Medical Office Bldg 1 OP Physical Therapy [address] [place] [address] Nora Tapia, NAPHTHOL SOAPING MACHINE OPERATOR Aftercare following right knee joint replacement surgery (Primary Dx) 12/05/2023 1:30 PM [facility] Therapy [facility] Medical Office Bldg 1 OP Physical Therapy [address] [place] [address] [place] [address] Nora Tapia, NAPHTHOL SOAPING MACHINE OPERATOR Aftercare following right knee joint replacement surgery (Primary Dx); Primary osteoarthritis of right knee 12/02/2023 9:15 AM T Therapy [facility] Medical Office Bldg 1 OP Physical Therapy [address] [place] [address] [place] [address] Nora Tapia, NAPHTHOL SOAPING MACHINE OPERATOR Aftercare following right knee joint replacement surgery (Primary Dx); Primary osteoarthritis of right knee from Last 3 Months Allergies Active Allergy Reactions Criticality Noted Date Comments Codeine Vomiting Medium 06/09/2020 Ibuprofen Other (See comments) Low 08/04/2018 Nsaids (Non-Steroidal Anti-Inflammatory Drug) Other (See comments) Medium 08/07/2022 Kidney disease Medications zolpidem (AMBIEN) 10 mg tablet Take 1 tablet (10 mg total) by mouth nightly as needed Active aspirin 81 mg enteric coated tablet Take 1 tablet (81 mg total) by mouth daily 9 Active insulin syringe-needle U-100 1 mL 31 gauge x 5/16 syringe Twice a day 9 Active clopidogreL (PLAVIX) 75 mg tablet Take 1 tablet (75 mg total) by mouth daily Active famotidine (PEPCID) 20 mg tablet Take 1 tablet (20 mg total) by mouth 2 (two) times a day 1 Active propranoloL (INDERAL) 20 mg tablet Take 1 tablet (20 mg total) by mouth 2 (two) times a day Active SUMAtriptan (IMITREX) 50 mg tablet Take 1 tablet (50 mg total) by mouth once as needed Active ezetimibe (ZETIA) 10 mg tablet TAKE 1 TABLET BY MOUTH DAILY 28 tablet 2 Active Additional Information Patient taking differently: 10 mg oral Daily, Reported on 01/21/2024 insulin lispro (HumaLOG) 200 unit/mL (3 mL) pen for injectionIndicat ions:type 2 diabetes mellitus Inject 0.08 mL (16 Units total) under the skin 3 (three) times a day before meals When insulin pump fails. E11.65 pump has failed. 15 mL 5 2 Active pen needle, diabetic 32 gauge x 5/32 needle Use to inject insulin up to 4times/day. E11.65 150 each 11 2 Active citalopram (CeleXA) 20 mg tablet Take 1.5 tablets (30 mg total) by mouth every morning 2 Active meclizine (ANTIVERT) 25 mg tablet Take 1 tablet (25 mg total) by mouth as needed 2 Active losartan-hydroCH LOROthiazide (HYZAAR) 100-12.5 mg per tablet Take 1 tablet by mouth daily 3 Active fexofenadine (ADELA) 180 mg tablet Take 1 tablet (180 mg total) by mouth daily 3 Active pen needle, diabetic (TRUEplus Pen Needle) 32 gauge x 5/32 needle TRUEplus Pen Needle 32 gauge x 5/32 Active alcohol swabs pads, medicated Apply 1 each topically 4 (four) times a day before meals and nightly E11.65 400 each 3 3 Active Omnipod Dash Pods, Gen 4, cartridge Inject 1 Device under the skin daily E11.65 30 each 11 4 Active atorvastatin (LIPITOR) 80 mg tablet TAKE 1 TABLET BY MOUTH DAILY 90 tablet 3 4 Active Additional Information Patient taking differently: 80 mg oral Daily, Reported on 01/21/[address] (PROTONIX) 40 mg EC tablet Take 1 tablet (40 mg total) by mouth daily 4 Active nystatin creamIndications :as needed for rash 4 Active metFORMIN (GLUCOPHAGE) 1,000 mg tablet TAKE 1 TABLET BY MOUTH TWICE A DAY WITH FOOD 180 tablet 4 4 06/30/19 25 Active Additional Information Patient taking differently: 1,000 mg oral 2 times daily with meals (bkfst, dinner), Reported on 01/21/2024 insulin pump cart,cont inf,BT (Omnipod Dash Pods, Gen 4,) cartridge CHANGE OMNIPOD POD EVERY 48 HOURS Active blood-glucose transmitter (Dexcom G6 Transmitter) device Active insulin lispro (HumaLOG) 100 unit/mL vial for injection USE PER INSULIN PUMP MAX OF 150 UNITS DAILY NEEDED 50 mL 11 4 Active Additional Information Patient taking differently: USE PER INSULIN PUMP MAX OF 150 UNITS DAILY NEEDEDBASAL 0000-2.55, 0400-2.6 PER HOURIC 6ISF 20AIT 3 HOURSTARGET GLUCOSE 110CORRECT ABOVE 120, Reported on 01/21/2024 Tab-A-Emily 400 mcg tabletIndication s:Vitamin Deficiency Prevention Take 1 tablet by mouth daily 4 Active lancets misc 1 each by other route daily Use to monitor blood sugar daily. E11.65 100 each 3 4 Active blood-glucose meter kit Use daily as directed for monitoring of blood sugar for diabetes, e11.65 1 kit 1 4 Active blood glucose diagnostic (glucose blood) strip Check blood sugar 3x times a day or as directed. E11.65 100 each 5 4 Active Jardiance 25 mg tablet TAKE 1 TABLET BY MOUTH DAILY 90 tablet 3 4 Active OneTouch Verio Flex meter [facility] 4 Active tirzepatide (Mounjaro) 10 mg/0.5 mL pen injectorIndicati ons:type 2 diabetes mellitus Inject 10 mg under the skin every 7 days E11.65 2 mL 11 4 Active busPIRone (BUSPAR) 7.5 mg tablet 4 Active OneTouch Delica Plus Lancet 33 gauge [facility] 4 Active blood-glucose sensor (Dexcom G7 Sensor) device CHANGE SENSOR EVERY 10 DAYS 10 each 3 4 Active Active Problems Problem Noted Date Diagnosed Date Arthritis of right knee 10/06/2023 Low vitamin D level 09/18/2022 dexcom 7 continous glucose monitor 07/15/2022 Assessment & Plan (01/21/2024 1:49 PM GRINDING MILL OPERATOR): Continuous glucose monitor (cgm) applied 01/08/24 to 01/21/24 This device was placed for monitor and treatment of blood sugar. Interpretation of data- average glucose 115, 94% time in range, 4% hyperglycemia, 1%hypoglycemia noted Assessment & Plan (11/10/2023 12:29 PM CDT): Continuous glucose monitor (cgm) applied 10/28/23 to 11/10/23 This device was placed for monitor and treatment of blood sugar. Interpretation of data- average glucose 130, 94% time in range, 5% hyperglycemia, 1%hypoglycemia noted Assessment & Plan (10/10/2023 12:18 PM CDT): Continuous glucose monitor (cgm) applied 09/26/23 to 10/09/23 This device was placed for monitor and treatment of blood sugar. Interpretation of data- average glucose 140, 83% time in range, 174% hyperglycemia, no hypoglycemia noted Assessment & Plan (01/27/2023 11:02 AM GRINDING MILL OPERATOR): Continuous glucose monitor (cgm) applied 12/27/2022 to 01/09/2023 This device was placed for monitor and treatment of blood sugar. Interpretation of data- average glucose 166, 66% time in range, 34% hyperglycemia, no hypoglycemia noted Hypertrophic cardiomyopathy (CMS/HCC) 12/24/2021 06/27/2022 Herpes zoster without complication 09/13/2021 Assessment & Plan (09/13/2021 6:35 PM CDT): This is a new problem which began 7 days ago Encouraged shingle vaccine. Outbreak is too old to treat with antivirals Herniation of intervertebral disc between L5 and S1 07/20/2021 Radiculopathy, lumbosacral region 06/22/2021 Cervical radiculopathy 06/22/2021 Cervicalgia 06/22/2021 Chronic bilateral low back pain with bilateral s ciatica 06/22/2021 Lumbar facet joint syndrome 06/22/2021 Osteoarthritis of right knee 12/14/2020 Type 2 diabetes mellitus wit h microalbuminuria, with long-term current use of insulin 08/19/2020 Assessment & Plan (01/21/2024 1:46 PM GRINDING MILL OPERATOR): Assessment & Plan (11/10/2023 12:27 PM CDT): This is a chronic condition which is slightly above goal . Goal is less than 7%. Personally reviewed most recent A1c - Lab Results Component Value Date HGBA1C 7.4 (H) 09/22/2023 Personally reviewed POC blood sugar- at goal of 80-180 Lab Results Component Value Date POCGLU 176 11/10/2023 Medication-continue Omnipod -Basal 0000-2.55, 0400-2.6, IC -6, ISF-20, Active insulin time 3hrs., TARGET GLUCOSE 110- correct above 120. Continue Metformin 1000mg twice a day. Continue Jardiance 25 mg p.o. daily. Increase mounjaro 10 mg weekly. Omnipod-PDM reprogrammed Failed Trulicity stopped 10/29/2022. Failed victoza 01/27/2023. Monitor blood sugar continuously with Dexcom 7 cgm. Encouraged annual eye exam. Monofilament foot exam completed. Protective senses intact eGFR- 64 Kidney function-at goal Urine microalbumin/creatinine ratio - extremely elevated, not at goal. Goal is <30. Sees Dr. Bhagat for Nephrology. Continue losartan, hydrochlorothiazide Assessment & Plan (04/15/2022 12:38 PM GRINDING MILL OPERATOR): This is a chronic condition which is worsening and not at goal. urine microalbumin/creatinine ratio -??worsening. Latest Reference Range & Units 07/13/21 08:13 Albumin, Ur mg/L 5,983.8 Creatinine Ur mg/dL 194.6 Albumin Creatinine Ratio, Ur 1 - 29 mg/g 3,075 (H) (H): Data is abnormally high?? Continue on Losartan 25 mg daily/ HCTZ, ?goal <[address] Bhagat for nephrology Assessment & Plan (12/28/2021 2:27 PM CDT): This is a chronic condition which is worsening and not at goal. urine microalbumin/creatinine ratio -??worsening. Latest Reference Range & Units 07/13/21 08:13 Albumin, Ur mg/L 5,983.8 Creatinine Ur mg/dL 194.6 Albumin Creatinine Ratio, Ur 1 - 29 mg/g 3,075 (H) (H): Data is abnormally high?? Continue on Losartan 25 mg daily/ HCTZ, ?goal <[address] Bhagat for nephrology Assessment & Plan (09/13/2021 6:40 PM CDT): This is a chronic condition which is worsening and not at goal. urine microalbumin/creatinine ratio -??worsening. Latest Reference Range & Units 07/13/21 08:13 Albumin, Ur mg/L 5,983.8 Creatinine Ur mg/dL 194.6 Albumin Creatinine Ratio, Ur 1 - 29 mg/g 3,075 (H) (H): Data is abnormally high?? Continue on Losartan 25 mg daily/ HCTZ, ?goal <30 . ??encouraged to follow up with Dr. Bhagat Assessment & Plan (08/19/2020 8:10 AM CDT): This is a chronic condition which is stable Urine microalbumin/creatinine ratio -??865?-on Losartan 25 mg daily, HCTZ, ?goal <30 . ??Seeing Dr. Bhagat (associate professor of mathematics) Personally reviewed labs: (06/14)BUN-??16, creatinine- 0.94, GFR-69 Kidney function- abnormal B/P today-126/86??, currently Losartan 25 mg daily and HCTZ. ??At goal blood pressure is <140/90 Hyperlipidemia associated with type 2 diabetes magaly hernandez 08/19/2020 Assessment & Plan (01/21/2024 1:48 PM GRINDING MILL OPERATOR): This is a chronic condition which is at goal . Goal is LDL less than 70 Continue atorvastatin, Zetia Encouraged to eat healthy, include fresh fruits and vegetables daily and avoid eating fried foods more than once per week. Assessment & Plan (11/10/2023 12:28 PM CDT): This is a chronic condition which is at goal . Goal is LDL less than 70 Continue atorvastatin, Zetia Encouraged to eat healthy, include fresh fruits and vegetables daily and avoid eating fried foods more than once per week. Assessment & Plan (10/10/2023 12:17 PM CDT): This is a chronic condition which is at goal . Goal is LDL less than 70 Continue atorvastatin, Zetia Encouraged to eat healthy, include fresh fruits and vegetables daily and avoid eating fried foods more than once per week. Assessment & Plan (06/26/2023 8:42 AM CDT): This is a chronic condition which is at goal . Goal is LDL less than 70 Continue atorvastatin Zetia, Encouraged to eat healthy, include fresh fruits and vegetables daily and avoid eating fried foods more than once per week. Encouraged to take medications as prescribed. Assessment & Plan (01/27/2023 11:00 AM GRINDING MILL OPERATOR): This is a chronic condition which is at goal of LDL less than 70 Continue atorvastatin Zetia Encouraged to eat healthy, include fresh fruits and vegetables daily and avoid eating fried foods more than once per week. Encouraged to take medications as prescribed. Assessment & Plan (10/29/2022 3:36 PM CDT): This is a chronic condition which is at goal of LDL less than 70 Continue atorvastatin and zetia Encouraged to eat healthy, include fresh fruits and vegetables daily and avoid eating fried foods more than once per week. Encouraged to take medications as prescribed. Assessment & Plan (07/15/2022 11:11 AM CDT): This is a chronic condition which is at goal of LDL less than 70 Continue atorvastatin Encouraged to eat healthy, include fresh fruits and vegetables daily and avoid eating fried foods more than once per week. Encouraged to take medications as prescribed. Assessment & Plan (06/01/2021 12:54 PM CDT): This is a chronic condition which is at goal. Goal is less than 70. Personally reviewed lipid panel. LDL -47, currently on??atorvastatin/ ezetimibe. At goal. Encouraged to eat healthy, include fresh fruits and vegetables daily and avoid eating fried foods more than once per week. Encouraged to take medications as prescribed. Assessment & Plan (12/01/2020 2:14 PM CDT): This is a chronic condition which is at goal. Goal is less than 70. Personally reviewed lipid panel. LDL -47, currently on??atorvastatin/ ezetimibe. At goal. Encouraged to eat healthy, include fresh fruits and vegetables daily and avoid eating fried foods more than once per week. Encouraged to take medications as prescribed. Assessment & Plan (08/19/2020 8:14 AM CDT): This is a chronic condition which is not at goal. Goal is less than 70. Personally reviewed lipid panel. Personally reviewed LDL - 77, increased from 47. currently on??atorvastatin 80mg daily and zetia. slightly above goal (less than 70). Due to weight gain. Will monitor. Encouraged to eat healthy, include fresh fruits and vegetables daily and avoid eating fried foods more than once per week. Please take medications as prescribed. Omnipod Dash Insulin pump in place 11/19/2019 Assessment & Plan (01/21/2024 1:52 PM GRINDING MILL OPERATOR): This is a chronic condition which is [...] units (92%) Interpretation 100% time in range. Assessment & Plan (11/10/2023 12:29 PM CDT): This is a chronic condition which is not at goal. Type of insulin pump-Omnipod dash insulin delivery system with DexCom 6 sensor with humalog PDM reprogrammed Basal 0000-2.55, 0400-2.6 IC -6 ISF-20 Active insulin time 3hrs. TARGET GLUCOSE 110- correct above 120 Total daily dose of insulin-93 units Bolus- 32 units (34%) Basal- 62 units (66%) Assessment & Plan (06/26/2023 8:48 AM CDT): This is a chronic condition which is not at goal. Type of insulin pump-Omnipod dash insulin delivery system with DexCom 6 sensor with humalog Download from 06/20/2023 to 06/26/2023 Basal 0000-2.55, 0400-2.6 IC -6 ISF-20 Active insulin time 3hrs. TARGET GLUCOSE 110- correct above 120 Total daily dose of insulin-93 units Bolus- 32 units (34%) Basal- 62 units (66%) Interpretation-Average blood sugar is 171. Hyperglycemia 43%. 0 low blood sugar. Highest blood sugar 272. Lowest blood sugar 96. Median is 166. Assessment & Plan (01/27/2023 11:04 AM GRINDING MILL OPERATOR): This is a chronic condition which is not at goal. Type of insulin pump-Omnipod dash insulin delivery system with DexCom 6 sensor with humalog Download from 01/14/2023 to 01/27/2023 Basal 0000-2.65 IC -6 ISF-20 Active insulin time 3hrs. TARGET GLUCOSE 110 Total daily dose of insulin-108 units Bolus- 49 units (46%) Basal- 29 units (54%) Interpretation-Average blood sugar is 192 Assessment & Plan (10/29/2022 3:39 PM CDT): This is a chronic condition which is at goal. Type of insulin pump-Omnipod dash insulin delivery system with DexCom 6 sensor with humalog Basal 0000-2.65 IC -6 ISF-20 Active insulin time 3hrs. TARGET GLUCOSE 110 Total daily dose of insulin-112 units Bolus- 49 units (44%) Basal- 63 units (56%) Interpretation-Average blood sugar is 200 Assessment & Plan (07/15/2022 11:20 AM CDT): This is a chronic condition which is at goal. ?? Type of insulin pump-Omnipod dash insulin delivery system with DexCom 6 sensor with humalog Basal?? 0000-2.65 IC??-6 ISF-20?? Active insulin time 3hrs. TARGET GLUCOSE?110 Total daily dose of insulin-100 units Bolus- 36units (36%) Basal- 64 units (64%) Interpretation- in target range 67% without hypoglycemia. 33% hyperglycemia with blood sugars between 180 and 250. Average blood sugar is 170 Assessment & Plan (04/15/2022 12:44 PM GRINDING MILL OPERATOR): This is a chronic condition which is at goal. ?? Pump has been off due to pdm failure. Type of insulin pump-Omnipod insulin delivery system with DexCom 6 sensor Basal?? 0000-2.65 IC??-6 ISF-20?? Active insulin time 3hrs. TARGET GLUCOSE?110 Total daily dose of insulin-129 units Bolus- 66 units (51%) Basal 63 units (49%) Continuous glucose monitor (cgm) applied from 04/02/2022 to 04/15/2022 This device was placed for monitor and treatment of blood sugar. Interpretation of data- In target 51% of the time without hypoglycemia. Average blood sugar 185. No hypoglycemia noted Assessment & Plan (12/28/2021 2:59 PM CDT): This is a chronic condition which is at goal. ?? Pump has been off due to pdm failure. Type of insulin pump-Omnipod insulin delivery system with DexCom 6 sensor Basal?? 0000-2.25??0400-2.45 IC??-6 ISF-20?? Active insulin time 3hrs. TARGET GLUCOSE?110-120 Avg BG?160 Continuous glucose monitor (cgm) applied from 12/15/2021 to 12/28/2021 This device was placed for monitor and treatment of blood sugar. Interpretation of data- In target 74% of the time without hypoglycemia. New omnipod pdm reprogrammed. Assessment & Plan (09/13/2021 6:37 PM CDT): This is a chronic condition which is slightly improved but not at goal. ?? Download reviewed. Type of insulin pump-Omnipod insulin delivery system with DexCom 6 sensor Basal?? 0000-2.25??0400-2.45 IC??-6 ISF-20?? Active insulin time 4hrs. TARGET GLUCOSE?110-120 Avg BG?143 Total daily dose of insulin-109units Bolus- 51 units (47%) Basal- 58 units (53%) Assessment & Plan (06/01/2021 12:52 PM CDT): This is a chronic condition which is not at goal. ?? Download reviewed. Type of insulin pump-Omnipod insulin delivery system with DexCom 6 sensor Basal??increased to 0000-2.25??0400-2.45 IC??-6 ISF-20?? Active insulin time 4hrs. TARGET GLUCOSE?110-120 Avg BG?143 Total daily dose of insulin-88units Bolus- 33 units (38%) Basal- 55 units (62%) Assessment & Plan (12/01/2020 2:16 PM CDT): This is a chronic condition which is not at goal. ?? Download reviewed. Type of insulin pump-Omnipod insulin delivery system with DexCom 6 sensor Basal??increased to 0000-2.25??0400-2.45 IC??-6 ISF-20?? Active insulin time 4hrs. TARGET GLUCOSE?110-120 Avg BG?145 Total daily dose of insulin- 73.8 units Bolus- 23.2 units (31%) Basal- 50.5 units (69%) Assessment & Plan (08/19/2020 8:06 AM CDT): This is a chronic condition which is stable, but not at goal. ?? Download reviewed. Type of insulin pump-Omnipod insulin delivery system with DexCom 6 sensor Basal??increased to 0000-2.25 0400-2.45 IC??-6 ISF-20?? Active insulin time 4hrs. TARGET GLUCOSE?110-120 Avg BG?196 Assessment & Plan (05/12/2020 1:51 PM CDT): This is a chronic condition which is stable, but not at goal. Download reviewed. Type of insulin pump- [employer] 670G with DexCom 6 sensor Pump settings adjusted. Requesting to switch to Omnipod insulin delivery system. Referral made to Delores Chan. Basal increased to 0000-2.0 0400-2.2, 1600-2.1 IC -6 ISF-20 Active insulin time 4hrs. TARGET GLUCOSE 110-120 Avg BG 213 plus or minus 51 Avg daily carbs 304plus or minus 59 Carb/bolus insulin-4.6 Daily basal-46.6 (415) Daily bolus- 66.7 (59%) . Assessment & Plan (02/11/2020 1:19 PM GRINDING MILL OPERATOR): This is a chronic condition which is stable, but not at goal. Download reviewed. Type of insulin pump- [employer] 670G with DexCom 6 sensor Pump settings : Basal increased to 0000-1.55, 0400-1.70, 1600-1.60 IC -6 ISF-20 Active insulin time 4hrs. TARGET GLUCOSE 110-120 Avg BG 161 BG readings -1973 Avg daily carbs 260 plus or minus 96 Carb/bolus insulin-5.3 Avg Total daily insulin- 87 plus or minus 17.1 Avg daily basal - 37.5 (43%) Avg daily bolus - 49.5 (57%) . Assessment & Plan (11/19/2019 4:56 PM CDT): Interested in insulin pump therapy Discussed insulin pump options, with demonstrations Referral made to [employer] and [employer]. Contact with and (suspected) exposure to other communicable diseases 07/28/2019 06/27/2022 Acquired trigger finger 04/21/2019 06/28/19 23 Overview (11/19/2022): R 2nd and 4th digits and L 4th digit, rheumatology offered injections but patient denied Osteoarthritis of left hand 04/21/2019 05/0 05/2022 Overview (11/19/2022): Xray of L hand showed mild degenerative changes at the 5th digit DIP joint Herniation of intervertebral disc 01/26/2019 06/27/2022 Systolic murmur 11/30/2018 06/27/2022 Overview (11/19/2022): 2/6, loudest over the aortic area Elevated liver enzymes 11/13/2018 3 Microalbuminuria 11/13/2018 06/27/2022 Peripheral arterial occlusive disease (CMS/HCC) 10/30/2018 06/27/2022 Overview (11/19/2022): 40-50% blockage of left proximal femoral artery and 80-90% blockage of right femoral artery. Experiencing claudication. AIF with intervention (right leg) performed by Dr. Dixon, stent of R SFA completed 12/03/18. Restenosis of R SFA atery, successful laser atherectomy and stenting of R SFA (NAIMA stent) on 08/05/2019. Abnormal result of other cardiovascular function study 09/04/2018 06/27/2022 Atherosclerosis of [place] ar teries of extremities with intermittent claudication, bilateral legs 09/04/2018 06/27/2022 Hypertension associated with type 2 diabetes nely litus 08/04/2018 Assessment & Plan (01/21/2024 1:48 PM GRINDING MILL OPERATOR): This is a chronic condition which is at goal. Goal is less than 140/90 Continue lisinopril/hydrochlorothiazide Encouraged to monitor weight and B/P at home. Assessment & Plan (11/10/2023 12:28 PM CDT): This is a chronic condition which is at goal. Goal is less than 140/90 Continue losartan/hydrochlorothiazide Encouraged to monitor weight and B/P at home. Encouraged to void caffeine and excessive alcohol consumption as this will elevate B/P Assessment & Plan (06/26/2023 8:42 AM CDT): This is a chronic condition which is not at goal upon arrival, at goal after 15 minutes of rest. Goal is less than 140/90 Personally reviewed labs. Continue losartan, hydrochlorothiazide. Encouraged to monitor weight and B/P at home Encouraged to take medications as prescribed. Assessment & Plan (01/27/2023 11:07 AM GRINDING MILL OPERATOR): This is a chronic condition which is at goal of less than 140/90 Personally reviewed labs. Continue losartan/hydrochlorothiazide Encouraged to monitor weight and B/P at home Encouraged to take medications as prescribed. Assessment & Plan (12/28/2021 2:57 PM CDT): This is a chronic condition which is not at goal Personally reviewed labs. Continue losartan Encouraged to void caffeine and excessive alcohol consumption as this will elevate B/P Encouraged to monitor weight and B/P at home Encouraged to take medications as prescribed. Assessment & Plan (09/13/2021 6:46 PM CDT): This is a chronic condition which is not at goalGoal is <140/90 Personally reviewed labs. Continue on propanolol. Avoid caffeine, caffeine will raise blood pressure and excessive alcohol consumption. Monitor your weight and B/P. Encouraged to take medications as prescribed. Heart murmur 08/04/2018 06/27/2022 Occlusion and stenosis of bilateral carotid milady priscilla 08/04/2018 06/27/2022 Candidiasis of skin 07/23/2018 06/27/2022 Cigarette smoker 07/14/2018 Assessment & Plan (09/13/2021 6:33 PM CDT): This is a chronic problem which has improved. She has stopped smoking about 1 to 1.5 months ago. Encouraged not to restart smoking. Assessment & Plan (06/01/2021 12:53 PM CDT): Returned to smoking. Encouraged to stop. Assessment & Plan (05/12/2020 1:37 PM CDT): Has not smoked in 75 days. Assessment & Plan (02/11/2020 1:20 PM GRINDING MILL OPERATOR): This is a chronic condition Encouraged to stop smoking Assessment & Plan (11/19/2019 4:48 PM CDT): This is a chronic condition Encouraged to stop smoking Class 1 obesity due to exces s calories with serious comorbidity and body mass index (BMI) of 33.0 to 33.9 in adult 07/14/2018 06/27/2022 Assessment & Plan (01/21/2024 1:53 PM GRINDING MILL OPERATOR): >>ASSESSMENT AND PLAN FOR CLASS 1 OBESITY DUE TO EXCESS CALORIES WITH SERIOUS COMORBIDITY AND BODY MASS INDEX (BMI) OF 33.0 TO 33.9 IN ADULT WRITTEN ON 01/21/2024 1:49 PM BY JAH, MARIALUISA K., AUTOMATIC NAILING MACHINE OPERATOR This is a chronic condition which continues [...] minutes sessions or 3- 10 minutes sessions. Assessment & Plan (11/10/2023 12:31 PM CDT): This is a chronic condition which is improving 16 lbs. Weight loss since last office visit Increase mounjaro to 10 mg weekly Encouraged healthy eating which includes a low carb diet. Avoiding processed foods, sweets and fried foods. Encouraged 30 minutes of walking at least 5 days per week Discussed that exercise can be broken down into small sessions- for example 2- 15 minutes sessions or 3- 10 minutes sessions. Assessment & Plan (10/10/2023 12:19 PM CDT): This is a chronic condition which continues 11 lbs. Weight loss since last office visit Continue mounjaro Encouraged healthy eating which includes a low carb diet. Avoiding processed foods, sweets and fried foods. Activity per PT as you heals from her total knee replacement Assessment & Plan (06/26/2023 8:44 AM CDT): This is a chronic condition which continues 2 lbs. Weight loss since last office visit Encouraged healthy eating which includes a low carb diet. Avoiding processed foods, sweets and fried foods. Encouraged 30 minutes of walking at least 5 days per week Assessment & Plan (01/27/2023 11:03 AM GRINDING MILL OPERATOR): This is a chronic condition which is worsening 7 lb weight gain since last office visit Encouraged healthy eating and exercise Will switch Ozempic to mounjaro Assessment & Plan (09/13/2021 6:49 PM CDT): This is a chronic condition which is worsening. Weight increased by 3 lbs since last office visit Increased ozempic to promote weight loss. Noncompliance with treatment 06/25/201705/2022 High serum creatinine 06/25/2017 Bacterial vaginosis 05/12/2017 Allergic rhinitis 04/25/2017 06/27/2022 Disorder of lipid metabolism 04/24/201705/2022 Overview (11/19/2022): Lipids 07/27/2019: tri elevated and HDL low Mixed anxiety and depressive disorder 03/14/2017 Gastroesophageal reflux disease 03/14/2017 Tear of meniscus of knee 03/14/2017 023 Nicotine dependence 03/14/2017 06/27/2022 Type 2 diabetes mellitus wit h hypoglycemia without coma, with long-term current use of insulin 03/13/2017 Overview (06/26/2023): >>OVERVIEW FOR TYPE 2 DIABETES MELLITUS WITHOUT COMPLICATION ([facility]) ([facility]) WRITTEN ON 11/19/2022 8:16 AM BY FLORINDA URIAS MA Was seeing Dr. Givens, now switching to Dr. Mcginnis in [place]. Assessment & Plan (01/21/2024 1:48 PM GRINDING MILL OPERATOR): This is a chronic condition which is [...] - elevated. Goal is <30 Continue lisinopril/hydrochlorothiazide Assessment & Plan (10/10/2023 12:16 PM CDT): This is a chronic condition which is close to goal . Goal is less than 7%. Personally reviewed most recent A1c - Lab Results Component Value Date HGBA1C 7.4 (H) 09/22/2023 Medication- continue Omnipod -Basal 0000-2.55, 0400-2.6, IC -6, ISF-20, Active insulin time 3hrs., TARGET GLUCOSE 110- correct above 120. Continue Metformin 1000mg twice a day. Continue Jardiance 25 mg p.o. daily. Continue mounjaro 7.5mg weekly Monitor blood sugar continuously with cgm. Encouraged annual eye exam. eGFR- 64 Kidney function-abnormal Urine microalbumin/creatinine ratio - abnormal. Goal is <30. 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, WITH LONG-TERM CURRENT USE OF INSULIN ([facility]) ([facility]) WRITTEN ON 11/19/2019 5:11 PM BY MARIALUISA TYSON NP Dexcom downloaded for October-nov 19, 2019 (7 days) Average blood sugar 143 Highest reading 249 mg/dl Lowest reading 55mg/dl Standard deviation- 32 In target -87% (70-180) High range-13% (>180) Assessment & Plan (06/26/2023 8:43 AM CDT): >>ASSESSMENT AND PLAN FOR TYPE 2 DIABETES MELLITUS WITH DIABETIC 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 Personally reviewed A1c today- 7.5% At goal less than 7% Personally reviewed blood sugar 161 At goal 80-180 Medication- Continue Medtronic Insulin pump, stop ozempic and start Trulicity 1.5mg weekly for one month and then increase to Trulicity 3mg weekly after 1 month if no symptoms occur. Monitor blood sugar continuously with DexCom 6 sensor. Encouraged annual eye exam. last dilated eye exam was [facility] [place] Monofilament foot exam completed, protective senses intact, loss of protective senses. Treated with Gabapentin/Lyrica Urine microalbumin/creatinine ratio - 865 Currently- stop lisinopril due to dizziness, statrt Losartan 25 mg daily , goal <[address] Bhagat, states has not heard from them, will repeat referral. Personally reviewed labs: BUN- 21 , creatinine- 1.14 GFR- 55 Kidney function- abnormal B/P today-110/72 , currently on lisinopril 10 mg daily, switched to Losartan 25 mg daily. At goal blood pressure is <140/90 Personally reviewed LDL - 47, currently on atorvastatin 80mg daily. At goal of less than 70 No history of macrovascular disease - [place], [place]. Dexcom downloaded for 02/05/20-02/11/20 (7 days) Average blood sugar 161 Highest reading 267 mg/dl Lowest reading 84mg/dl Standard deviation- 39 In target -69% (70-180) High range-31% (>180) Seriously high->2% 97.9% time CGM active. Assessment & Plan (06/26/2023 8:43 AM CDT): >>ASSESSMENT AND PLAN FOR TYPE 2 DIABETES MELLITUS WITH DIABETIC PERIPHERAL ANGIOPATHY WITHOUT GANGRENE, WITH LONG-TERM CURRENT USE OF INSULIN ([facility]) ([facility]) WRITTEN ON 05/12/2020 1:54 PM BY MARIALUISA TYSON, AUTOMATIC NAILING MACHINE OPERATOR This is a chronic condition which is worsening hyperglycemia, not at goal. Personally reviewed A1c today- 8.4%, increased from 7.5%. Not at goal less than 7% Personally reviewed blood sugar 178 At goal 80-180 Medication- Continue Medtronic Insulin pump, continueTrulicity 3mg weekly . Denies side effects. Monitor blood sugar continuously with DexCom 6 sensor. Encouraged annual eye exam. last dilated eye exam was [facility] [place] Monofilament foot exam completed, protective senses intact, loss of protective senses. Treated with Gabapentin/Lyrica Urine microalbumin/creatinine ratio - 865 Currently- stop lisinopril due to dizziness, start Losartan 25 mg daily, HCTZ, goal <[address] Bhagat Personally reviewed labs: BUN- 21 , creatinine- 1.14 GFR- 55 Kidney function- abnormal B/P today-120/86 , currently Losartan 25 mg daily and HCTZ. At goal blood pressure is <140/90 Personally reviewed LDL - 47, currently on atorvastatin 80mg daily. At goal of less than 70 No history of macrovascular disease - [place]. ?? Dexcom downloaded for 04/29/20 to 05/12/20 Average blood sugar 201 Standard deviation- 50 In target -38.1% (70-180) High range-61.9% (>180) Seriously high-15.9% (>250) Low <70=0% Very low 0.0% (<54) 80.3% time CGM active. Interpretation: Worsening hyperglycemia since she stopped smoking. Insulin pump adjusted. Assessment & Plan (06/26/2023 8:43 AM CDT): >>ASSESSMENT AND PLAN FOR TYPE 2 DIABETES MELLITUS WITH DIABETIC PERIPHERAL ANGIOPATHY WITHOUT GANGRENE, WITH LONG-TERM CURRENT USE OF INSULIN ([facility]) ([facility]) WRITTEN ON 08/19/2020 8:04 AM BY MARIALUISA TYSON, AUTOMATIC NAILING MACHINE OPERATOR This is a chronic condition which is stable hyperglycemia, not at goal. ?? Personally reviewed A1c today-??8.3%, decreased from 8.4%. Not at ??goal less than 7% Medication- Continue Omnipod pump-adjustments made Reports burning and brusing at injection site of Trulicity 3mg weekly. Denies side effects. Change to Ozempic 0.5mg weekly and will titrate up. Monitor blood sugar??continuously with DexCom 6 sensor. ?? Encouraged annual eye exam. ??last dilated eye exam was [facility] [place]? Monofilament foot exam completed, protective senses intact Urine microalbumin/creatinine ratio -??865?Currently- stop lisinopril due to dizziness, start Losartan 25 mg daily, HCTZ, ?goal <30 . ??Seeing Dr. Bhagat Personally reviewed labs: (06/14)BUN-??16?, creatinine- 0.94?GFR- 69?Kidney function- abnormal B/P today-126/86??, currently Losartan 25 mg daily and HCTZ. ??At goal blood pressure is <140/90 Personally reviewed LDL - 77, increased from 47. currently on??atorvastatin 80mg daily.?? slightly above goal (less than 70). Due to weight gain. Will monitor. No history of macrovascular disease - [place].? Dexcom downloaded for??08/05/20 to 08/18/20 This device was placed for monitor and treatment of blood sugar. Average blood sugar- 196 Variability- 24.2 % ( goal < 36%) Data Analysis Very High >250 mg/dl- 10.7 % High 181-250 mg/dl 64.2% Target 70-180 mg/dl 35.3 % Low 54-69 mg/dl 0.3 % Very Low <50 mg/dl 0% Interpretation of data- Hyperglycemia since she stopped smoking and gained weight. Insulin pump adjusted. Assessment & Plan (06/26/2023 8:43 AM CDT): >>ASSESSMENT AND PLAN FOR TYPE 2 DIABETES MELLITUS WITH DIABETIC PERIPHERAL ANGIOPATHY WITHOUT GANGRENE, WITH LONG-TERM CURRENT USE OF INSULIN ([facility]) ([facility]) WRITTEN ON 12/01/2020 2:13 PM BY MARIALUISA TYSON, AUTOMATIC NAILING MACHINE OPERATOR This is a chronic condition which is??stable??hyperglycemia, not at goal. ?? Personally reviewed A1c today-??8.2% Not at ??goal less than 7% Medication- Continue Omnipod pump?? Continue Ozempic 1mg weekly . Monitor blood sugar??continuously with DexCom 6 sensor. ?? Encouraged annual eye exam. ??last dilated eye exam was [facility] [place]? Monofilament foot exam completed, protective senses intact Urine microalbumin/creatinine ratio -??865?Currently on Losartan 25 mg daily/ HCTZ, ?goal <30 . ??Seeing Dr. Bhagat Personally reviewed labs: (06/14)BUN-??16?, creatinine- 0.94?GFR- 69?Kidney function- abnormal B/P today-102/50??, currently Losartan 25 mg daily??and HCTZ. ??At goal blood pressure is <140/90 Personally reviewed LDL -47, currently on??atorvastatin 80mg daily.?? No history of macrovascular disease - [place].? Dexcom downloaded for??11/18/20 to 12/01/20 This device was placed for monitor and treatment of blood sugar. ?? Average blood sugar- 145 Variability- 22.9 % ( goal < 36%) ?? Data Analysis Very High >250 mg/dl- 0.2% High 181-250 mg/dl 16.1% Target 70-180 mg/dl 83.7 % Low 54-69 mg/dl 0.2 % Very Low <50 mg/dl 0% Interpretation of data- improved Hyperglycemia with weight loss. Encouraged to watch closely for hypoglycemia. Assessment & Plan (06/26/2023 8:43 AM CDT): >>ASSESSMENT AND PLAN FOR TYPE 2 DIABETES MELLITUS WITH DIABETIC PERIPHERAL ANGIOPATHY WITHOUT GANGRENE, WITH LONG-TERM CURRENT USE OF INSULIN ([facility]) ([facility]) WRITTEN ON 06/01/2021 12:51 PM BY MARIALUISA TYSON, AUTOMATIC NAILING MACHINE OPERATOR This is a chronic condition which is??stable??improving hyperglycemia, not at goal. ?? Personally reviewed A1c today-7.8% Not at ??goal less than 7% Medication- Continue Omnipod pump?? Continue Ozempic 1mg weekly . Monitor blood sugar??continuously with DexCom 6 sensor. ?? Encouraged annual eye exam. ??last dilated eye exam was [facility] [place]? Monofilament foot exam completed, protective senses intact Urine microalbumin/creatinine ratio -??865?Currently on Losartan 25 mg daily/ HCTZ, ?goal <30 . ??Seeing Dr. Bhagat Personally reviewed labs: BUN-??16, creatinine- 0.94?GFR- 69?Kidney function- abnormal B/P today-128/72, currently Losartan 25 mg daily??and HCTZ. ??At goal blood pressure is <140/90 Personally reviewed LDL -47, currently on??atorvastatin 80mg daily.?? No history of macrovascular disease - [place].? Dexcom downloaded for??05/19/21 to 06/01/21 This device was placed for monitor and treatment of blood sugar. ?? Average blood sugar- 143 Variability- 26.2 % ( goal < 36%) ?? Data Analysis Very High >250 mg/dl- 1.2% High 181-250 mg/dl 15% Target 70-180 mg/dl 84.4 % Low 54-69 mg/dl 0.6% Very Low <50 mg/dl 0.3% Interpretation of data- improved Hyperglycemia with weight loss. In target 84.4% of time. Assessment & Plan (06/26/2023 8:43 AM CDT): >>ASSESSMENT AND PLAN FOR TYPE 2 DIABETES MELLITUS WITH DIABETIC PERIPHERAL ANGIOPATHY WITHOUT GANGRENE, WITH LONG-TERM CURRENT USE OF INSULIN ([facility]) ([facility]) WRITTEN ON 09/13/2021 6:44 PM BY MARIALUISA TYSON, AUTOMATIC NAILING MACHINE OPERATOR This is a chronic condition which is??slightly??improving hyperglycemia, not at goal. ?? Personally reviewed A1c today-7.8% Not at ??goal less than 7% Medication- Continue Omnipod pump?? Increase Ozempic 2mg weekly- to promote weight loss Monitor blood sugar??continuously with DexCom 6 sensor. ?? Encouraged annual eye exam. ??last dilated eye exam was [facility] [place]? Monofilament foot exam completed, protective senses intact Urine microalbumin/creatinine ratio -??worsening. Latest Reference Range & Units 07/13/21 08:13 Albumin, Ur mg/L 5,983.8 Creatinine Ur mg/dL 194.6 Albumin Creatinine Ratio, Ur 1 - 29 mg/g 3,075 (H) (H): Data is abnormally high??Currently on Losartan 25 mg daily/ HCTZ, ?goal <30 . ??encouraged to follow up with Dr. Bhagat Personally reviewed labs: BUN-??16, creatinine- 0.94?GFR- 69?Kidney function- abnormal B/P today-170/76, currently Losartan 25 mg daily??and HCTZ. ??At goal blood pressure is <140/90 . She reports her pCP has been working on her blood pressure and she has an appt tomorrow for follow up. Discussed microalbuminurea, hypertension, uncontrolled diabetes and the effects on the kidney. Personally reviewed LDL -52, currently on??atorvastatin 80mg daily.?? No history of macrovascular disease - [place].? Dexcom downloaded for??08/31/21 to 09/13/21 This device was placed for monitor and treatment of blood sugar. Interpretation of data- improved Hyperglycemia with weight loss. In target 76% of time. Assessment & Plan (06/26/2023 8:43 AM CDT): >>ASSESSMENT AND PLAN FOR TYPE 2 DIABETES MELLITUS WITH DIABETIC PERIPHERAL ANGIOPATHY WITHOUT GANGRENE, WITH LONG-TERM CURRENT USE OF INSULIN ([facility]) ([facility]) WRITTEN ON 12/28/2021 2:43 PM BY MARIALUISA TYSON, AUTOMATIC NAILING MACHINE OPERATOR This is a chronic condition which is improving and at goal. goal less than 7% Personally reviewed most recent A1c - 6.5% Personally reviewed POC blood sugar- Lab Results Component Value Date POCGLU 141 12/28/2021 not at goal 80-180 Medication- Continue omnipod, trulicity metformin. Monitor blood sugar continuously with Dexcom 6 sensor. Encouraged annual eye exam. last dilated eye exam was Monofilament foot exam completed. protective senses intact Urine microalbumin/creatinine ratio - not at goal <30 Continue losartan. Personally reviewed CMP GFR- 67 Kidney function- abnormal B/P today- not at goal. Goal is <140/90 continue losartan Personally reviewed lipid panel. at Goal of less than 70. Continue atorvastatin and zetia. Assessment & Plan (06/26/2023 8:49 AM CDT): This is a chronic condition which is close to goal . Goal is less than 7%. Personally reviewed most recent A1c - Lab Results Component Value Date HGBA1C 7.4 (H) 04/28/2023 Personally reviewed POC blood sugar- at goal of 80-180 Lab Results Component Value Date POCGLU 114 06/26/2023 Medication- continue Omnipod - continue 0000-2.65 ic-6, isf-20. AI-3 Metformin 1000mg twice a day. Continue Jardiance 25 mg p.o. daily. Increase mounjaro 7.5mg weekly Increasing mounjaro to further reduce insulin usage, decrease insulin resistance, and promote further weight loss. Monitor blood sugar continuously with cgm. Encouraged annual eye exam. Monofilament foot exam completed. Protective senses intact Personally reviewed CMP eGFR- 63 Kidney function-normal Urine protein/creatinine ratio - not at goal. Goal is <18 Continue losartan, hydrochlorothiazide, propranolol B/P today- not at goal upon arrival at goal after 15 minutes of rest . Goal is <140/90. continue losartan/HCTZ, propranolol Personally reviewed lipid panel. At goal. Goal is less than 70. Continue atorvastatin Zetia Assessment & Plan (01/27/2023 11:00 AM GRINDING MILL OPERATOR): This is a chronic condition which is inadequately controlled not at goal of less than 7%. Personally reviewed most recent A1c - Lab Results Component Value Date HGBA1C 7.4 01/27/2023 Personally reviewed POC blood sugar- at goal 80-180 Lab Results Component Value Date POCGLU 165 01/27/2023 Medication- continue Omnipod - continue 2.65 ic-6, isf-20. AI-3 Metformin 1000mg twice a day. Continue Jardiance 25 mg p.o. daily. Will switch Victoza to mounjaro as she is not at goal of less than 7%. Failed Trulicity stopped 10/29/2022. Failed victoza 01/27/2023. Will try mounjaro Monitor blood sugar continuously with dexcom sensor. Encouraged annual eye exam. Monofilament foot exam completed. protective senses intact Personally reviewed CMP eGFR- 88 Kidney function- normal Urine microalbumin/creatinine ratio - not at goal <30 treated with losartan/hydrochlorothiazide B/P today- at goal of <140/90. continue losartan hydrochlorothiazide Personally reviewed lipid panel. at Goal of less than 70. Continue atorvastatin, Zetia Assessment & Plan (10/29/2022 3:36 PM CDT): This is a chronic condition which is inadequately controlled, worsening not at goal of less than 7%. Personally reviewed most recent A1c - Lab Results Component Value Date HGBA1C 7.6 10/29/2022 Personally reviewed POC blood sugar- at goal 80-180 Lab Results Component Value Date POCGLU 138 10/29/2022 Medication- Continue Omnipod - continue 0000-2.65 ic-6, isf-20. AI-3 Metformin 1000mg twice a day. Increase Jardiance 25 mg p.o. daily. Will switch Trulicity to Victoza 1.2mg daily as she is not at goal. Monitor blood sugar continuously with sensor. Encouraged annual eye exam. Monofilament foot exam completed. protective senses intact loss of protective senses. Treated with Gabapentin/Lyrica Personally reviewed CMP eGFR- 61 Kidney function- abnormal. Continue with Dr. Bhagat for nephrology Urine microalbumin/creatinine ratio - not at goal <30 not treated with KATIE/ARB. Continue with Dr. Bhagat B/P today- at goal of <140/90. Personally reviewed lipid panel. at Goal of less than 70. Continue atorvastatin and zetia. Assessment & Plan (07/15/2022 11:17 AM CDT): This is a chronic condition which is close to goal of less than 7%. Personally reviewed most recent A1c - Lab Results Component Value Date HGBA1C 7.1 07/15/2022 Personally reviewed POC blood sugar- at goal 80-180 Lab Results Component Value Date POCGLU 137 07/15/2022 Medication- Continue Omnipod 5 with Humalog Monitor blood sugar continuously with Dexcom 6 sensor. Continue Jardiance 10 mg p.o. daily Switch Trulicity to monitor serial 2.5 mg weekly Continue metformin 2.5 mg twice daily Encouraged annual eye exam. last dilated eye exam was [facility] Monofilament foot exam completed. protective senses intact Personally reviewed CMP eGFR- 50 Kidney function- abnormal Sees Dr. Bhagat for Nephrology Urine microalbumin/creatinine ratio - not at goal <30 treated with losartan/HCTZ B/P today- at goal of <140/90. continue losartan/HCTZ Personally reviewed lipid panel. at Goal of less than 70. Continue atorvastatin Assessment & Plan (06/26/2023 8:43 AM CDT): >>ASSESSMENT AND PLAN FOR TYPE 2 DIABETES MELLITUS WITH HYPERGLYCEMIA, WITH LONG-TERM CURRENT USE OF INSULIN ([facility]) WRITTEN ON 04/15/2022 12:41 PM BY MARIALUISA TYSON, CHRISTOPHER This is a chronic condition which is worsening but still close to goal less than 7% Personally reviewed most recent A1c - 7.2% Rise in A1c is most likely related to her stopping the Trulicity. She became frustrated as she was not able to receive the medication due to the national shortage and just stop it. Personally reviewed POC blood sugar- Lab Results Component Value Date POCGLU 120 04/15/2022 not at goal 80-180 Medication- Continue omnipod, metformin. And research study and feels she is getting the medication with Jardiance in Monitor blood sugar continuously with Dexcom 6 sensor. Encouraged annual eye exam. last dilated eye exam is scheduled for next week Monofilament foot exam completed. protective senses intact Urine microalbumin/creatinine ratio - not at goal <30 Continue losartan. Personally reviewed CMP GFR- 62Kidney function- abnormal B/P today- at goal. Goal is <140/90 continue losartan Personally reviewed lipid panel. at Goal of less than 70. Continue atorvastatin and zetia. 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 Dixon for Cardiology. Has stent placement in her leg This is a chronic condition which is worsening but still close to goal less than 7% Personally reviewed most recent A1c - 7.2% Rise in A1c is most likely related to her stopping the Trulicity. She became frustrated as she was not able to receive the medication due to the national shortage and just stop it. Personally reviewed POC blood sugar- Lab Results Component Value Date POCGLU 120 04/15/2022 not at goal 80-180 Medication- Continue omnipod, metformin. And research study and feels she is getting the medication with Jardiance in Monitor blood sugar continuously with Dexcom 6 sensor. Encouraged annual eye exam. last dilated eye exam is scheduled for next week Monofilament foot exam completed. protective senses intact Urine microalbumin/creatinine ratio - not at goal <30 Continue losartan. Personally reviewed CMP GFR- 62Kidney function- abnormal B/P today- at goal. Goal is <140/90 continue losartan Personally reviewed lipid panel. at Goal of less than 70. Continue atorvastatin and zetia. Carpal tunnel syndrome 03/13/2017 Overview (11/19/2022): Experiencing numbness/pain/tingling in hands Resolved Problems Problem Noted Date Diagnosed Date Resolved Date Xatoriipod dash Insulin pump in place 10/29/2022 10/29/2022 Type 1 diabetes mellitus 08/04/2018 06/27/2022 Uncontrolled type 2 diabetes mellitus with hyperglycemia, with long-term current use of insulin 04/03/2017 02/11/2020 Assessment & Plan (11/19/2019 4:47 PM CDT): This is a chronic condition which is improving, but not at goal. Labs reviewed. A1c today- 7.4 Medication- Continue Basaglar 30 units twice daily, Novolog 30 units at meals, Increase Ozempic to 1mg weekly, Metformin 1000 mg po bid Monitor blood sugar continuously with DexCom 6 Referrals made to [facility] and [facility] regarding insulin pump therapy dilated eye exam appt is made for Monofilament foot exam completed, protective senses intact Urine microalbumin/creatinine - abnormal on lisinopril Kidney function eGRF- 55, BUN- 21, creatinine- 1.14 BP today- 138/74 , currently on lisinopril 10 mg daily LDL - 47, currently on Zetia history of macrovascular disease - CVA, [place]. Referral to Dr. Bhagat Assessment & Plan (08/19/2019 5:38 PM CDT): This is a chronic condition which is uncontrolled with hyperglycemia. Labs reviewed. Medication- decrease basaglar to 35 units twice a day, decrease NovoLog to 40 units 3 times a day before meals, continue metformin 1000 mg twice a day, start 0zempic 0.25 mg weekly for 4 weeks and then increase to 0.5 mg weekly Continue wearing dex com, please scanned sensor 4 to 6 times a day and record. Provide a record of blood sugars to the office. Call office if blood sugars is dropping below 80. Call office if your blood sugar is greater than 250 for 3 days. Surveillance of Diabetes complications protective sensation to feet intact Urine microalbumin/creatinine ratio - currently lisinopril 10 mg p.o. daily BP today-112/70 , currently on lisinopril 10mg LDL - 102, currently on Lipitor 80 mg history of macrovascular disease - PVD Uncontrolled type 2 diabetes mellitus with hyperglycemia 03/14/2017 06/27/2022 07/15/2022 Immunizations Name Administration Dates Next Due Influenza, Quadrivalent, Spl it, Intramuscular 01/04/2021,11/12/2018,12/25/2016 Influenza, Quadrivalent, Spl it, Preservative Free, Intramuscular 11/12/2018,10/29/2017 Moderna SARS-CoV-2 Monovalen t Vaccination (12+ YRS) 01/04/2021 Pneumococcal Polysaccharide PPV23 02/24/1989 Tdap 02/24/2014 Social History Tobacco Use Types Packs/Day Years [...] materials from doctor or pharmacy Never 10/22/2023 [facility] Utilities Answer Date Recorded In the past 12 months has th e [employer], gas, oil, or water [employer] threatened to shut off services in your [...] often do you attend chur ch or hoahaoism services? Never 10/07/2023 Do you belong to any clubs o r organizations such as christian groups, unions, fraternal or athletic groups, or school groups? No 10/07/2023 How often do you attend meet ings of the clubs or organizations you belong to? Never 10/07/2023 Are you , , di vorced, , never , or living with a partner? Never 10/07/2023 AUDIT-C Answer Date Recorded Q1: How often do you have a drink containing alcohol? Never 02/04/2024 Q2: How many drinks containi ng alcohol do you have on a typical day when you are drinking? Patient does not drink Q3: How often do you have si x or more drinks on one occasion? Never 02/04/2024 Overall Financial Resource Strain (CARDIA) Answe r [...] any time in the past 12 m [facility], were you homeless or living in a correction (including now)? No 10/07/2023 Personal Safety Answer Date Recorded Have you ever been in or are you currently in a harmful physical or emotional relationship or is someone making you feel afraid or unsafe? 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 Not on file Not on file Not on file Last Filed Vital Signs Vital Sign Reading Time Taken Comments Blood Pressure 97/57 02/04/2024 9:21 AM GRINDING MILL OPERATOR Pulse 79 02/04/2024 9:21 AM GRINDING MILL OPERATOR Temperature 36.2 ??C (97.1 ??F) 10/14/2023 11:22 AM C DT Respiratory Rate 18 02/04/2024 9:21 AM GRINDING MILL OPERATOR Oxygen Saturation 97% 02/04/2024 9:21 AM GRINDING MILL OPERATOR Inhaled Oxygen Concentration - - Weight 92.1 kg (203 lb) 02/04/2024 9:21 AM GRINDING MILL OPERATOR Height 165 cm (5' 4.96 ) 02/04/2024 9:21 AM GRINDING MILL OPERATOR Body Mass Index 33.82 02/04/2024 9:21 AM GRINDING MILL OPERATOR Plan of Treatment Not on file Medical Devices Implanted Type Area Accounts Receivable Specialist Device Identifier Shelf Expiration Date Model / Serial / Lot [employer] Attune Cruciate Retain Cementless Knee Right 5 Narrow Component [id number] - [id number] Implanted:Qty: 1 on 10/06/2023 by Regi Khan DO at [facility] Right: Knee [employer] [id number] 06/23/2032 [id number] / / [id number] [employer] Attune 35mm Cemented Medialize Knee Dome Patellar Aox Sterile [id number] - [id number] Implanted:Qty: 1 on 10/06/2023 by Regi Khan DO at [facility] Right: Knee [employer] [id number] 08/24/2031 [id number] / / [id number] [employer] Attune Fb Tib Base Sz 5 Por [id number] - [id number] Implanted:Qty: 1 on 10/06/2023 by Regi Khan DO at [facility] Right: Knee [employer] [id number] 03/26/2033 [id number] / / [id number] [employer] Cmw 2 Fast Set Cement 20gm Bone Sterile 3322-020 - [id number] Implanted:Qty: 1 on 10/06/2023 by Regi Khan DO at [facility] Right: Knee [employer] [id number] 10/23/2025 3322-020 / / [id number] [employer] Insert Tibial Knee Fixed Rm Posterior Stabilized Attune 6mm Size 5 Polyethylene [id number] - [id number] Implanted:Qty: 1 on 10/06/2023 by Regi Khan DO at [facility] Right: Knee [employer] [id number] 01/23/2030 [id number] / / [id number] Procedures Procedure Name Priority Date/Time Associated Diagnosis Comments POCT HEMOGLOBIN A1C Routine 01/21/2024 10:37 AM GRINDING MILL OPERATOR Type 2 diabetes mellitus with hypoglycemia without coma, with long-term current use of insulin (HCC) POCT GLUCOSE Routine 01/21/2024 10:35 AM GRINDING MILL OPERATOR Type 2 diabetes mellitus with hypoglycemia without coma, with long-term current use of insulin (HCC) XR KNEE RIGHT 3 VIEWS Schedule Routine, Read Routine (OP Routine) 01/02/2024 12:46 PM GRINDING MILL OPERATOR Aftercare following right knee joint replacement surgery LIPID PANEL Routine 11/24/2023 11:56 AM CDT Type 2 diabetes mellitus with hyperglycemia, with long-term current use of insulin (HCC) ALBUMIN CREATININE RATIO, URINE Routine 11/24/2023 11:56 AM CDT Type 2 diabetes mellitus with hyperglycemia, with long-term current use of insulin (HCC) EGFR Routine 10/07/2023 2:52 AM CDT DIABETIC EYE EXAM Routine 02/09/2021 DIABETES FOOT EXAM Routine 04/03/2017 from Last 3 Months or Most Recently Relevant to Health Maintenance Results * POCT hemoglobin A1c (01/21/2024 10:37 AM GRINDING MILL OPERATOR) Hemoglobin A1C, POC 6.1 4.0 - 5.6 % Blood 01/21/2024 10:3 7 AM GRINDING MILL OPERATOR us Marialuisa Tyson NP POINT OF CARE TEST ORDERABLES F inal Result * POCT glucose (01/21/2024 10:35 AM GRINDING MILL OPERATOR) Glucose Blood, POC 153 mg/dL Blood 01/21/2024 10:3 5 AM GRINDING MILL OPERATOR us Marialuisa Tyson NP POINT OF CARE TEST ORDERABLES F inal Result * XR Knee Right 3 Views (01/02/2024 12:46 PM GRINDING MILL OPERATOR) Anatomical Region Laterality Modality Lower Extremities, Knee Right Computed Radiography 01/04/2024 7:55 AM GRINDING MILL OPERATOR Narrative 01/04/2024 8:03 AM GRINDING MILL OPERATOR EXAM DESCRIPTION: XR KNEE RIGHT 3 VIEWS [...] 8:03 AM - Electronically signed by ??Lamont Hidalgo M.D. MF: MARIPOSA D: ??01/04/2024 8:03 AM T: ??01/04/2024 8:03 AM Report ID: [id number] Reading Location: ??[id number] Procedure Note Lamont Hidalgo MD - 01/04/2024 [...] Lamont Hidalgo M.D. MF: MARIPOSA Report ID: [id number] Reading Location: [place] [address] us Yoan GIRARD IMG XR PROCEDURES Final Result * (ABNORMAL) Albumin Creatinine Ratio, Urine (11/24/2023 11:56 AM CDT) Albumin Ur 199.5 mg/L Comment: Interpretive Data No reference range established. Current interpretive data was last revised 2018. Testing performed by: [address] [address] Creatinine Ur 107.0 mg/dL OLIVIA Comment: Interpretive Data No reference range established. Current interpretive data was last revised 2018. Testing performed by: [address] [address] Albumin Creatinine Ratio, Ur 186(H) 1 - 29 mg/g OLIVIA Comment:Testing performed by : [address] [address] Urine 11/24/2023 11:5 6 AM CDT 11/24/2023 5:06 PM CDT Marialuisa Tyson NP LAB URINE ORDERABLES Final Resu lt [facility] [address] [facility] Department [place] [address] * (ABNORMAL) Lipid panel (11/24/2023 11:56 AM CDT) [facility] Cholesterol 117 30 - 199 mg/dL Comment: Interpretive Data Ages < or = 19 years ??Acceptable: ? <170 mg/dL ??Borderline high: ??170-199 mg/dL ??High: ? >or= 200 mg/dL Ages > or = 20 years ??Desirable: ?<200 mg/dL ??Borderline high: ??200-239 mg/dL ??High: ? >or= 240 mg/dL Literature References: 1. Expert Panel on Integrated Guidelines for Cardiovascular Health and Risk Reduction in Children and Adolescents. Pediatrics 2011;128:S213 2. NCEP Expert Panel. Circulation 2004;110:227 Current Interpretive Data was last revised on 2017. Testing performed by: [address] [address] Triglycerides 146 <=149 mg/dL OLIVIA [place] Comment: Interpretive Data Ages < or = 9 years ??Acceptable: ? <75 mg/dL ??Borderline high: ??75-99 mg/dL ??High: ? >or= 100 mg/dL Ages 10 to 20 years ??Acceptable: ? <90 mg/dL ??Borderline high: ??90-129 mg/dL ??High: ? >or= 130 mg/dL Ages > or = 20 years ??Desirable: ?<150 mg/dL ??Borderline high: ??150-199 mg/dL ??High: ? 200-499 mg/dL ?Very high: ?? >or= 499 mg/dL Literature References: 1. Expert Panel on Integrated Guidelines for Cardiovascular Health and Risk Reduction in Children and Adolescents. Pediatrics 2011;128:S213 2. NCEP Expert Panel. Circulation 2004;110:227 Current Interpretive Data was last revised on 2017. Testing performed by: [address] [address] HDL 38(L) >=40 mg/dL OLIVIA Comment: Interpretive Data Ages < or = 19 years ??Acceptable: ? >45 mg/dL ??Borderline low: ?? 40-45 mg/dL ??Low: ? <40 mg/dL Ages > or = 20 years ??Desirable: ?>or= 60 mg/dL ??Low: ? <40 mg/dL Literature References: 1. Expert Panel on Integrated Guidelines for Cardiovascular Health and Risk Reduction in Children and Adolescents. Pediatrics 2011;128:S213 2. NCEP Expert Panel. Circulation 2004;110:227 Current Interpretive Data was last revised on 2017. Testing performed by: [address] [address] LDL, calculated 54 <=129 mg/dL OLIVIA Comment: Interpretive Data Ages < or = 19 years ??Acceptable: ? <110 mg/dL ??Borderline high: ??110-129 mg/dL ??High: ?>or= 130 mg/dL Ages > or = 20 years ??Optimal: ? <100 mg/dL ??Near optimal: ?100-129 mg/dL ??Borderline high: ?? 130-159 mg/dL ??High: ?>160 mg/dL Calculated using the Hira LDL-C estimating equation. This equation was implemented on 2023. Prior to this date LDL-C was estimated using the Friedewald equation. Literature References: 1. Expert Panel on Integrated Guidelines for Cardiovascular Health and Risk Reduction in Children and Adolescents. Pediatrics 2011;128:S213 2. NCEP Expert Panel. Circulation 2004;110:227 3. Hira Huang al. VLADIMIR Cardiol. 2020 June 24;5(5):540-548. doi: 10.1001/[email or web address].2020.0013 Current Interpretive Data was last revised on 2023. Testing performed by: [address] [address] Non-HDL Cholesterol 79 mg/dL OLIVIA Comment: Interpretive Data Ages < or = 19 years ??Acceptable: ?<120 mg/dL ??Borderline high: ??120-144 mg/dL ??High: ?>145 mg/dL Ages > or = 20 years ??When triglycerides are >200 mg/dL, Non-HDL cholesterol is a secondary target of ? therapy with treatment goals that are 30 mg/dL greater than the LDL cholesterol target. ? Literature References: 1. Expert Panel on Integrated Guidelines for Cardiovascular Health and Risk Reduction in Children and Adolescents. Pediatrics 2011;128:S213 2. NCEP Expert Panel. Circulation 2004;110:227 Current Interpretive Data was last revised on 2017. Testing performed by: [facility], [address] [place] [address]., [address] Chol/HDL ratio 3 OLIVIA Comment:Testing performed by : [address] [address] Blood 11/24/2023 11:5 6 AM CDT 11/24/2023 12:17 PM CDT Narrative OLIVIA - 11/24/2023 1:25 PM CDT These lab test should be done fasting. This means do not eat or drink for at least 12 hours prior to getting your blood drawn. Has the patient been fasting for 8 hours or more?->Yes us Marialuisa Tyson NP LAB BLOOD ORDERABLES Final Resu lt [facility] [address] [facility] Department [place] [address] * eGFR (10/07/2023 2:52 AM CDT) [facility] eGFR 64 >=60 mL/min/1. 73 m2 Comment: Interpretive Data Reference Interval Normal ?>/= 90 mL/min/1.73m2 Mildly decreased* ? 60 - 89 mL/min/1.73m2 Mildly to moderately decreased ?45 - 59 mL/min/1.73m2 Moderately to severely decreased ??30 - 44 mL/min/1.73m2 Severely decreased ?15 - 29 mL/min/1.73m2 Kidney Failure ?< 15 ??mL/min/1.73m2 *Relative to young adult level Estimated glomerular filtration rate is determined by the 2020 CKD-EPI equation recommended by the National Kidney Foundation (A Unifying Approach to GFR Estimation: Recommendations of the NKF-ASK Task Force on Reassessing the Inclusion of Race in Diagnosing Kidney Disease, JASN 2020). The CKD-EPI equation should not be used for patients with unstable renal function and has not been validated in children and those over 70. Current interpretive data was last reviewed 2020. Blood 10/07/2023 2:52 AM CDT 10/07/2023 3:03 AM CDT Yoan GIRARD LAB BLOOD ORDERABLES Final Resul t [facility] [address] [facility] Department [place] [address] * (ABNORMAL) Diabetic Eye Exam (02/09/2021) Historical Provider HEALTH MAINTENANCE Final Result * DIABETES FOOT EXAM (04/03/2017) Pathologist [facility] Diabetic Foot Exam Unknown Historical Provider HEALTH MAINTENANCE Final Result from Last 3 Months or Most Recently Relevant to Health Maintenance Insurance [facility] Advance Directives For more information, please contact: [phone] * Full Code (Latest Code Status on File) Date Activated Date Inactivated Comments 10/06/2023 11:23 AM 10/07/2023 11:04 PM Care Teams Researcher Relationship Specialty Start Date End Date Eron Holliday NP [address] [place] [address] PCP - General Pain Management 07/15/22 Marialuisa Tyson NP [address] [place] [address] Nurse Practitioner Endocrinology Diabetes & Metabolism 09/22/23 Leobardo Bhagat MD [address] [place] [address] DR THAKUR [address] [place] [address] Consulting Physician Nephrology 09/22/23 [place] [id number] [address] Consulting Physician Cardiovascular Disease 09/22/23 Lamar Slater NP [address] [facility] [address] THAKUR [address] [place] [address] Nurse Practitioner Orthopedic Surgery 02/04/24 Maycol Gatica DO [address] [facility] [address] THAKUR [address] [place] [address] Consulting Physician Orthopedic Surgery 02/04/24
--- OUTSIDE RECORDS SUMMARY | 2024-03-03 15:32 | XMS_ITS | Encounter Summary ---
Author Organization [facility] Address [address] [place] [address] Care Team Providers Care Toilet Attendant Name Role Phone Eron Holliday NP Primary Care Provider [phone] Marialuisa Daniel NP Unavailable [phone] Leobardo Bhagat MD Unavailable [phone] Florin Dixon MD Unavailable Lamar Slater NP Unavailable [phone] Maycol Gatica DO Unavailable [phone] Reason for Referral * Consultation (Routine) - Pending Review Specialty Diagnoses / Procedures Referred By Contac t Referred To Contact Pain Management Diagnoses Right cervical radiculopathy Foraminal stenosis of cervical region Cervical stenosis of spinal canal Felipe Cox MD [address] [facility] [address] [place] [address] Phone: tel: fax: [address] [phone] Referral ID Status Reason Start Date Expiration Date Visits Requested Visits Authorized [id number] Pending Review Specialty Services Required 4 03/05/2025 1 1 Question Answer Please select the performing region: [facility] [[id number]] # of visits: 1 Comments Cervical injections YARD LABORER * Consultation (Routine) - Pending Review Specialty Diagnoses / Procedures Referred By Claudette smiht Referred To Contact Pain Management Diagnoses Right cervical radiculopathy Foraminal stenosis of cervical region Cervical stenosis of spinal canal Felipe Cox MD [address] [place] [address] Phone: tel: fax: [facility] [address] [address] fax: Referral ID Status Reason Start Date Expiration Date Visits Requested Visits Authorized [id number] Pending Review Specialty Services Required 4 03/05/2025 1 1 Question Answer Please select the performing region: External Order [171] To loc/pos [facility] [place] [[id number]] # of visits: 1 Comments Cervical epidural injections YARD LABORER Reason for Visit * Reason Comments Follow-up Encounter Details Date Type Department Care Team (Latest Contact Info) Description 02/04/2024 9:30 AM SHIPYARD LABORER Office Visit [facility] [address], [address] [place] [address] Felipe Cox MD [address] [place] [address] Right cervical radiculopathy (Primary Dx); Foraminal stenosis of cervical region; Cervical stenosis of spinal canal Social History Tobacco Use Types Packs/Day Years [...] materials from doctor or pharmacy Never 10/22/2023 [facility] Utilities Answer Date Recorded In the [...] often do you attend chur ch or faith services? Never 10/07/2023 Do you belong to any clubs o r organizations such as muslim groups, unions, fraternal or athletic groups, or [...] time in the past 12 m [facility], were you homeless or living in a skilled nursing (including now)? No 10/07/2023 Personal Safety Answer Date Recorded Have you ever been in or are you currently in a harmful physical or emotional relationship or is someone making you feel afraid or unsafe? Denies 10/06/2023 Comments No Sex and Gender Information Value Date Recorded Sex Assigned at Not on file Legal Sex Female 8:53 AM SHIPYARD LABORER Gender Identity Female 12/26/2023 10:11 PM CDT Sexual Orientation Straight 12/26/2023 10 :11 PM CDT Occupation Industry Job Start Date Job End Date [employer] Not on file Not on file Not on file documented as of this encounter Last Filed Vital Signs Vital Sign Reading Time Taken Comments Blood Pressure 97/57 02/04/2024 9:21 AM SHIPYARD LABORER Pulse 79 02/04/2024 9:21 AM SHIPYARD LABORER Temperature - - Respiratory Rate 18 02/04/2024 9:21 AM SHIPYARD LABORER Oxygen Saturation 97% 02/04/2024 9:21 AM SHIPYARD LABORER Inhaled Oxygen Concentration - - Weight 92.1 kg (203 lb) 02/04/2024 9:21 AM SHIPYARD LABORER Height 165 cm (5' 4.96 ) 02/04/2024 9:21 AM SHIPYARD LABORER Body Mass Index 33.82 02/04/2024 9:21 AM SHIPYARD LABORER documented in this encounter Patient Instructions * Patient Instructions* Aby Zabala RN - 02/04/2024 9:30 AM SHIPYARD LABORER Referral sent to pain management Follow-up via telephone two wks after hand surgery YARD LABORER documented in this encounter Progress Notes * Felipe Cox MD - 02/04/2024 9:30 AM CST Images from the original note were not included. RETURN CLINIC VISIT History of Present Illness: Sandy Lopez is a 58 y.o. female presenting for follow-up. She was seen on 10/22/2023 for neck painfor approximately 5 months at that time. She was also having numbness down the right arm along the dorsal aspect of the arm from the lateral epicondyle to the index finger. That time she denied any signs of myelopathy but did report baseline dysphagia. She underwent PT for right knee replacement, starting on 10/23/23 to 01/18/24. She reports overall that her symptoms are stable. She continues to report bilateral shoulder discomfort which has slightly increased on the left side. She continues to have hand dexterity problems and reports that her balance is about the same since the knee replacement. Her repeat Hgb A1c of 6.1 on 01/21/24. She reports that she stopped smoking. Review of Systems: A complete 11 system ROS was performed and was negative aside from pertinent positives and negatives noted in HPI Medications: Current Outpatient Medications: alcohol swabs pads, medicated, Apply 1 each topically 4 (four) times a day before meals and joxtqveZ82.65, Disp: 400 each, Rfl: 3 aspirin 81 mg enteric coated tablet, Take 1 tablet (81 mg total) by mouth daily, Disp: , Rfl: atorvastatin (LIPITOR) 80 mg tablet, TAKE 1 TABLET BY MOUTH DAILY (Patient taking differently: Take1 tablet (80 mg total) by mouth daily), Disp: 90 tablet, Rfl: 3 blood glucose diagnostic (glucose blood) strip, Check blood sugar 3x times a day or as directed. E11.65, Disp: 100 each, Rfl: 5 blood-glucose meter kit, Use daily as directed for monitoring of blood sugar for diabetes, e11.65, Disp: 1 kit, Rfl: 1 blood-glucose sensor (Phybridge G7 Sensor) device, CHANGE SENSOR EVERY 10 DAYS, Disp: 10 each, Rfl: 3 blood-glucose transmitter (Dexcom G6 Transmitter) device, , Disp: , Rfl: busPIRone (BUSPAR) 7.5 mg tablet, , Disp: , Rfl: citalopram (CeleXA) 20 mg tablet, Take 1.5 tablets (30 mg total) by mouth every morning, Disp: , Rfl: clopidogreL (PLAVIX) 75 mg tablet, Take 1 tablet (75 mg total) by mouth daily, Disp: , Rfl: ezetimibe (ZETIA) 10 mg tablet, TAKE 1 TABLET BY MOUTH DAILY (Patient taking differently: Take 1 tablet (10 mg total) by mouth daily), Disp: 28 tablet, Rfl: 0 famotidine (PEPCID) 20 mg tablet, Take 1 tablet (20 mg total) by mouth 2 (two) times a day, Disp: ,Rfl: fexofenadine (ADELA) 180 mg tablet, Take 1 tablet (180 mg total) by mouth daily, Disp: , Rfl: insulin lispro (HumaLOG) 100 unit/mL vial for injection, USE PER INSULIN PUMP MAX OF 150 UNITS DAILY NEEDED (Patient taking differently: USE PER INSULIN PUMP MAX OF 150 UNITS DAILY NEEDED [id number], 0400-2.6 PER HOUR IC 6 ISF 20 AIT 3 HOURS TARGET GLUCOSE 110 CORRECT ABOVE 120), Disp: 50 mL, Rfl: 11 insulin lispro (HumaLOG) 200 unit/mL (3 mL) pen for injection, Inject 0.08 mL (16 Units total) under the skin 3 (three) times a day before meals When insulin pump fails. E11.65 pump has failed., Disp: 15 mL, Rfl: 5 insulin pump cart,cont inf,BT (Omnipod Dash Pods, Gen 4,) cartridge, CHANGE OMNIPOD POD EVERY 48 HOURS, Disp: , Rfl: insulin syringe-needle U-100 1 mL 31 gauge x 5/16 syringe, Twice a day, Disp: , Rfl: Jardiance 25 mg tablet, TAKE 1 TABLET BY MOUTH DAILY, Disp: 90 tablet, Rfl: 3 lancets misc, 1 each by other route daily Use to monitor blood sugar daily. E11.65, Disp: 100 each,Rfl: 3 losartan-hydroCHLOROthiazide (HYZAAR) 100-12.5 mg per tablet, Take 1 tablet by mouth daily, Disp: ,Rfl: meclizine (ANTIVERT) 25 mg tablet, Take 1 tablet (25 mg total) by mouth as needed, Disp: , Rfl: metFORMIN (GLUCOPHAGE) 1,000 mg tablet, TAKE 1 TABLET BY MOUTH TWICE A DAY WITH FOOD (Patient taking differently: Take 1 tablet (1,000 mg total) by mouth 2 (two) times a day with meals), Disp: 180 tablet, Rfl: 4 nystatin cream, , Disp: , Rfl: Omnipod Dash Pods, Gen 4, cartridge, Inject 1 Device under the skin daily E11.65, Disp: 30 each, Rfl: 11 OneTouch Delica Plus Lancet 33 gauge misc, , Disp: , Rfl: OneTouch Verio Flex meter misc, , Disp: , Rfl: pantoprazole DR (PROTONIX) 40 mg EC tablet, Take 1 tablet (40 mg total) by mouth daily, Disp: , Rfl: pen needle, diabetic (TRUEplus Pen Needle) 32 gauge x 5/32 needle, TRUEplus Pen Needle 32 gauge x 5/32 , Disp: , Rfl: pen needle, diabetic 32 gauge x 5/32 needle, Use to inject insulin up to 4times/day. E11.65, Disp:150 each, Rfl: 11 propranoloL (INDERAL) 20 mg tablet, Take 1 tablet (20 mg total) by mouth 2 (two) times a day, Disp:, Rfl: SUMAtriptan (IMITREX) 50 mg tablet, Take 1 tablet (50 mg total) by mouth once as needed, Disp: , Rfl: Tab-A-Emily 400 mcg tablet, Take 1 tablet by mouth daily, Disp: , Rfl: tirzepatide (Mounjaro) 10 mg/0.5 mL pen injector, Inject 10 mg under the skin every 7 days E11.65, Disp: 2 mL, Rfl: 11 zolpidem (AMBIEN) 10 mg tablet, Take 1 tablet (10 mg total) by mouth nightly as needed, Disp: , Rfl: Allergies: is allergic to codeine, nsaids (non-steroidal anti-inflammatory drug), and ibuprofen. Physical Exam: AO3 NAD 4/5 in right hand customer success specialist and triceps -Katheryn Increased reflexes in RUE compared to LUE Imaging: CT cervical spine 11/19/2023 MRI c spin 08/07/23 IMPRESSION: Multilevel cervical degenerative disc and joint disease, as detailed level by level above. There is [id number] spinal canal stenosis at C5-C6 and moderate spinal canal stenosis at C6-C7 with multilevel neural foraminal stenosis, most pronounced and moderate on the left at C5-C6 and on the right at C6-C7. Cervical xrays 04/19/23 Assessment and Plan: Sandy Lopez is presenting for follow up. She continues to have right upper extremity radiculopathywith numbness tingling and weakness in the right upper extremity. She is recovering well from her recent knee replacement. We discussed 1st trying pain management for cervical epidural injection. We will also call her in a 10s unit for her paraspinal muscles and discomfort. We will plan for a telephone visit in approximately a month after her upcoming right hand surgery to discuss her symptoms after injections. We did discuss that if surgery would be needed we would prefer and posterior approach given her baseline dysphagia. We discussed briefly the risks and benefits of the anterior versus posterior surgeries. Pain management- cervical epidural Telephone visit in approximately 1 month Felipe Cox MD YARD LABORER documented in this encounter Plan of Treatment Scheduled Referrals Name Type Priority Associated Diagnoses Order Schedule Ambulatory referral to Pain Management Outpatient Referral Routine Right cervical radiculopathy Foraminal stenosis of cervical region Cervical stenosis of spinal canal Expected: 02/18/2024 (Approximate), Expires: 02/03/2025 Ambulatory referral to Pain Management Outpatient Referral Routine Right cervical radiculopathy Foraminal stenosis of cervical region Cervical stenosis of spinal canal Expected: 02/18/2024 (Approximate), Expires: 02/03/2025 documented as of this encounter Visit Diagnoses Diagnosis Right cervical radiculopathy- Primary Foraminal stenosis of cervical region Cervical stenosis of spinal canal Spinal stenosis in cervical region documented in this encounter Care Teams Toilet Attendant Relationship Specialty Start Date End Date Eron Holliday NP [address] [facility] [place] [address] PCP - General Pain Management 07/15/22 Marialuisa Daniel NP [address] [facility] [place] [address] Nurse Practitioner Endocrinology Diabetes & Metabolism 09/22/23 Leobardo Bhagat MD [address] [place] [address] [address] Consulting Physician Nephrology 09/22/23 [place] [id number] [address] Consulting Physician Cardiovascular Disease 09/22/23 Lamar Slater NP [address] [facility] [address] [place] [address] [place] [address] Nurse Practitioner Orthopedic Surgery 02/04/24 Maycol Gatica DO [address] [facility] [address] [place] [address] [place] [address] Consulting Physician Orthopedic Surgery 02/04/24 documented as of this encounter
--- OUTSIDE RECORDS SUMMARY | 2024-03-03 15:32 | XMS_ITS | Clinical Summary ---
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 Name Role Phone Eron Holliday NP Primary Care Provider [phone] Marialuisa Tyson NP Unavailable [phone] Leobardo Bhagat MD Unavailable [phone] Florin Dixon MD Unavailable Lamar Slater NP Unavailable [phone] Maycol Gatica DO Unavailable [phone] Allergies Active Allergy Reactions Criticality Noted Date [...] syringe-needle U-100 1 mL 31 gauge x 07/09 syringe Twice a day 9 Active clopidogreL [...] 3 4 Active OneTouch Verio Flex meter [facility] [place] 4 Active tirzepatide (Mounjaro) 10 mg/0.5 mL pen injectorIndicati ons:type 2 diabetes mellitus Inject 10 mg under the skin every 7 days E11.65 2 mL 11 4 Active busPIRone (BUSPAR) 7.5 mg tablet 4 Active OneTouch Delica Plus Lancet [facility] 4 Active blood-glucose sensor (Dexcom G7 Sensor) device CHANGE SENSOR EVERY 10 DAYS 10 each 3 4 Active Active Problems Problem Noted Date Diagnosed Date Arthritis of right knee 10/06/2023 Low vitamin D level 09/18/2022 dexcom 7 continous glucose monitor 07/15/2022 Assessment & Plan (01/21/2024 1:49 PM BURIAL NEEDS SALESPERSON): Continuous glucose monitor (cgm) applied 01/08/24 to [...] noted Assessment & Plan (01/27/2023 11:02 AM BURIAL NEEDS SALESPERSON): Continuous glucose monitor (cgm) applied 12/27/2022 to [...] 08/19/2020 Assessment & Plan (01/21/2024 1:46 PM BURIAL NEEDS SALESPERSON): Assessment & Plan (11/10/2023 12:27 PM CDT): [...] hydrochlorothiazide Assessment & Plan (04/15/2022 12:38 PM BURIAL NEEDS SALESPERSON): This is a chronic condition which is [...] HCTZ, ?goal <30 . ??Seeing Dr. Bhagat (quantitative equity head) Personally reviewed labs: (06/14)BUN-??16, creatinine- 0.94, GFR-69 Kidney function- abnormal B/P today-126/86??, currently Losartan 25 mg daily and HCTZ. ??At goal blood pressure is <140/90 Hyperlipidemia associated with type 2 diabetes magaly hernandez 08/19/2020 Assessment & Plan (01/21/2024 1:48 PM BURIAL NEEDS SALESPERSON): This is a chronic condition which is [...] prescribed. Assessment & Plan (01/27/2023 11:00 AM BURIAL NEEDS SALESPERSON): This is a chronic condition which is [...] 11/19/2019 Assessment & Plan (01/21/2024 1:52 PM BURIAL NEEDS SALESPERSON): This is a chronic condition which is [...] 166. Assessment & Plan (01/27/2023 11:04 AM BURIAL NEEDS SALESPERSON): This is a chronic condition which is [...] 170 Assessment & Plan (04/15/2022 12:44 PM BURIAL NEEDS SALESPERSON): This is a chronic condition which is [...] . Assessment & Plan (02/11/2020 1:19 PM BURIAL NEEDS SALESPERSON): This is a chronic condition which is [...] pump options, with demonstrations Referral made to [facility] and [facility]. Contact with and (suspected) exposure to other [...] cardiovascular function study 09/04/2018 06/27/2022 Atherosclerosis of [place] of extremities with intermittent claudication, bilateral legs 09/04/2018 06/27/2022 Hypertension associated with type 2 diabetes nely litus 08/04/2018 Assessment & Plan (01/21/2024 1:48 PM BURIAL NEEDS SALESPERSON): This is a chronic condition which is [...] prescribed. Assessment & Plan (01/27/2023 11:07 AM BURIAL NEEDS SALESPERSON): This is a chronic condition which is [...] days. Assessment & Plan (02/11/2020 1:20 PM BURIAL NEEDS SALESPERSON): This is a chronic condition Encouraged to stop smoking Assessment & Plan (11/19/2019 4:48 PM CDT): This is a chronic condition Encouraged to stop smoking Class 1 obesity due to exces s calories with serious comorbidity and body mass index (BMI) of 33.0 to 33.9 in adult 07/14/2018 06/27/2022 Assessment & Plan (01/21/2024 1:53 PM BURIAL NEEDS SALESPERSON): >>ASSESSMENT AND PLAN FOR CLASS 1 OBESITY DUE TO EXCESS CALORIES WITH SERIOUS COMORBIDITY AND BODY MASS INDEX (BMI) OF 33.0 TO 33.9 IN ADULT WRITTEN ON 01/21/2024 1:49 PM BY MARIALUISA TYSON PRODUCE RUNNER This is a chronic condition which continues [...] week Assessment & Plan (01/27/2023 11:03 AM BURIAL NEEDS SALESPERSON): This is a chronic condition which is [...] FOR TYPE 2 DIABETES MELLITUS WITHOUT COMPLICATION (CMS/HCC) ([facility]) WRITTEN ON 11/19/2022 8:16 AM BY FLORINDA URIAS MA Was seeing Dr. Givens, now switching to Dr. Mcginnis in [place]. Assessment & Plan (01/21/2024 1:48 PM BURIAL NEEDS SALESPERSON): This is a chronic condition which is [...] GANGRENE, WITH LONG-TERM CURRENT USE OF INSULIN ([facility]) ([facility]) WRITTEN ON 11/19/2019 5:11 PM BY MARIALUISA [...] GANGRENE, WITH LONG-TERM CURRENT USE OF INSULIN ([facility]) ([facility]) WRITTEN ON 02/11/2020 1:21 PM BY MARIALUISA TYSON, PRODUCE RUNNER This is a chronic condition which is [...] eye exam. last dilated eye exam was [facility] Monofilament foot exam completed, protective senses intact, [...] No history of macrovascular disease - CVA, [place]. Dexcom downloaded for 02/05/20-02/11/20 (7 days) Average blood sugar 161 Highest reading 267 mg/dl Lowest reading 84mg/dl Standard deviation- 39 In target -69% (70-180) High range-31% (>180) Seriously high->2% 97.9% time CGM active. 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 Personally reviewed A1c today- 8.4%, increased from 7.5%. Not at goal less than 7% Personally reviewed blood sugar 178 At goal 80-180 Medication- Continue Medtronic Insulin pump, continueTrulicity 3mg weekly . Denies side effects. Monitor blood sugar continuously with DexCom 6 sensor. Encouraged annual eye exam. last dilated eye exam was [facility] [place] Monofilament foot exam completed, protective senses intact, [...] No history of macrovascular disease - CVA, NE. ?? Dexcom downloaded for 04/29/20 to 05/12/20 [...] GANGRENE, WITH LONG-TERM CURRENT USE OF INSULIN ([facility]) ([facility]) WRITTEN ON 08/19/2020 8:04 AM BY MARIALUISA TYSON, PRODUCE RUNNER This is a chronic condition which is [...] eye exam. ??last dilated eye exam was [facility] [place]? Monofilament foot exam completed, protective senses intact [...] No history of macrovascular disease - CVA, NE.? Dexcom downloaded for??08/05/20 to 08/18/20 This device [...] GANGRENE, WITH LONG-TERM CURRENT USE OF INSULIN ([facility]) ([facility]) WRITTEN ON 12/01/2020 2:13 PM BY MARIALUISA TYSON, CHRISTOPHER This is a chronic condition which is??stable??hyperglycemia, not at goal. ?? Personally reviewed A1c today-??8.2% Not at ??goal less than 7% Medication- Continue Omnipod pump?? Continue Ozempic 1mg weekly . Monitor blood sugar??continuously with DexCom 6 sensor. ?? Encouraged annual eye exam. ??last dilated eye exam was [facility] [place]? Monofilament foot exam completed, protective senses intact Urine microalbumin/creatinine ratio -??865?Currently on Losartan 25 mg daily/ HCTZ, ?goal <30 . ??Seeing Dr. Bhagat Personally reviewed labs: (06/14)BUN-??16?, creatinine- 0.94?GFR- 69?Kidney function- abnormal B/P today-102/50??, currently Losartan 25 mg daily??and HCTZ. ??At goal blood pressure is <140/90 Personally reviewed LDL -47, currently on??atorvastatin 80mg daily.?? No history of macrovascular disease - CVA, NE.? Dexcom downloaded for??11/18/20 to 12/01/20 This device [...] GANGRENE, WITH LONG-TERM CURRENT USE OF INSULIN ([facility]) ([facility]) WRITTEN ON 06/01/2021 12:51 PM BY MARIALUISA TYSON NP This is a chronic condition which is??stable??improving hyperglycemia, not at goal. ?? Personally reviewed A1c today-7.8% Not at ??goal less than 7% Medication- Continue Omnipod pump?? Continue Ozempic 1mg weekly . Monitor blood sugar??continuously with DexCom 6 sensor. ?? Encouraged annual eye exam. ??last dilated eye exam was [facility]? Monofilament foot exam completed, protective senses intact Urine microalbumin/creatinine ratio -??865?Currently on Losartan 25 mg daily/ HCTZ, ?goal <30 . ??Seeing Dr. Bhagat Personally reviewed labs: BUN-??16, creatinine- 0.94?GFR- 69?Kidney function- abnormal B/P today-128/72, currently Losartan 25 mg daily??and HCTZ. ??At goal blood pressure is <140/90 Personally reviewed LDL -47, currently on??atorvastatin 80mg daily.?? No history of macrovascular disease - CVA, NE.? Dexcom downloaded for??05/19/21 to 06/01/21 This device [...] GANGRENE, WITH LONG-TERM CURRENT USE OF INSULIN ([facility]) ([facility]) WRITTEN ON 09/13/2021 6:44 PM BY MARIALUISA TYSON PRODUCE RUNNER This is a chronic condition which is??slightly??improving hyperglycemia, not at goal. ?? Personally reviewed A1c today-7.8% Not at ??goal less than 7% Medication- Continue Omnipod pump?? Increase Ozempic 2mg weekly- to promote weight loss Monitor blood sugar??continuously with DexCom 6 sensor. ?? Encouraged annual eye exam. ??last dilated eye exam was [facility] [place]? Monofilament foot exam completed, protective senses intact [...] No history of macrovascular disease - CVA, [place].? Dexcom downloaded for??08/31/21 to 09/13/21 This device was placed for monitor and treatment of blood sugar. Interpretation of data- improved Hyperglycemia with weight loss. In target 76% of time. 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 Personally reviewed most recent A1c - Lab Results Component Value Date HGBA1C 7.4 01/27/2023 Personally reviewed POC blood sugar- at goal 80-180 Lab Results Component Value Date POCGLU 165 01/27/2023 Medication- continue Omnipod - continue 0000-2.65 ic-6, [...] eye exam. last dilated eye exam [facility] Monofilament foot exam completed. protective senses [...] HYPERGLYCEMIA, WITH LONG-TERM CURRENT USE OF INSULIN ([facility]) WRITTEN ON 04/15/2022 12:41 PM BY MARIALUISA TYSON, PRODUCE RUNNER This is a chronic condition which is [...] GANGRENE, WITH LONG-TERM CURRENT USE OF INSULIN ([facility]/HCC) (HCC) WRITTEN ON 04/15/2022 12:42 PM BY MARIALUISA TYSON PRODUCE RUNNER Sees Dr. Dixon for Cardiology. Has stent [...] Problem Noted Date Diagnosed Date Resolved Date omnipod dash Insulin pump in place 10/29/2022 10/29/2022 [...] continuously with DexCom 6 Referrals made to [facility] and [facility] regarding insulin pump therapy dilated eye exam appt is made for Monofilament foot exam completed, protective senses intact Urine microalbumin/creatinine - abnormal on lisinopril Kidney function eGRF- 55, BUN- 21, creatinine- 1.14 BP today- 138/74 , currently on lisinopril 10 mg daily LDL - 47, currently on Zetia history of macrovascular disease - CVA, [place]. Referral to Dr. Bhagat Assessment & Plan [...] diabetes mellitus with hyperglycemia 03/14/2017 06/27/2022 07/15/2022 Encounters Date Type Department Care Team Description 02/04/2024 9:30 AM BURIAL NEEDS SALESPERSON Office Visit [facility] Neuro[facility] [address] [place] [address], [address] [place] [address] Felipe Cox MD Right cervical radiculopathy (Primary Dx); Foraminal stenosis of cervical region; Cervical stenosis of spinal canal 01/21/2024 10:30 AM BURIAL NEEDS SALESPERSON Office Visit [facility] Diabetes Endocrine Care at [address] [place] [address] Marialuisa Tyson, CHRISTOPHER Type 2 diabetes mellitus with hypoglycemia without [...] of 33.0 to 33.9 in adult 01/02/2024 11:30 AM BURIAL NEEDS SALESPERSON Office Visit [facility] Orthopedics and Sports Medicine [address] [place] [address] [address] [place] [address] Yoan Edwards PA Aftercare following right knee joint replacement surgery (Primary Dx) 01/02/2024 11:18 AM BURIAL NEEDS SALESPERSON - 01/02/2024 11:59 PM BURIAL NEEDS SALESPERSON Hospital Encounter [facility] MOB 1 DIAG IMG [address] [place] [id number] Aftercare following right knee joint replacement surgery Discharge Disposition: Discharge to home or self care 12/26/2023 2:15 PM CDT Therapy [facility] Medical Office Bldg 1 OP Physical Therapy [address] [place] [id number] Nora Tapia, MEDICAL STAFF SERVICES MANAGER Aftercare following right knee joint replacement surgery (Primary Dx) 12/23/2023 10:00 AM CDT Therapy [facility] Medical Office Bldg 1 OP Physical Therapy [address] [place] [phone] Nora Tapia, MEDICAL STAFF SERVICES MANAGER Aftercare following right knee joint replacement surgery (Primary Dx) 12/16/2023 9:15 AM CDT Therapy [facility] Medical Office Bldg 1 OP Physical Therapy [address] [place] [phone] Nora Tapia, MEDICAL STAFF SERVICES MANAGER Aftercare following right knee joint replacement surgery (Primary Dx) 12/11/2023 2:15 PM CDT Therapy [facility] Medical Office Bldg 1 OP Physical Therapy [address] [place] [phone] Nora Tapia, MEDICAL STAFF SERVICES MANAGER Aftercare following right knee joint replacement surgery (Primary Dx) 12/09/2023 10:00 AM CDT Therapy [facility] Medical Office Bldg 1 OP Physical Therapy [address] [place] [phone] Nora Tapia, MEDICAL STAFF SERVICES MANAGER Aftercare following right knee joint replacement surgery (Primary Dx) 12/05/2023 1:30 PM CDT Therapy [facility] Medical Office Bldg 1 OP Physical Therapy [address] [place] [address] [place] [phone] Nora Tapia, MEDICAL STAFF SERVICES MANAGER Aftercare following right knee joint replacement surgery (Primary Dx); Primary osteoarthritis of right knee 12/02/2023 9:15 AM CDT Therapy [facility] Office Bldg 1 OP Physical Therapy [address] [place] [address] [place] [phone] Nora Tapia, MEDICAL STAFF SERVICES MANAGER Aftercare following right knee joint replacement surgery (Primary Dx); Primary osteoarthritis of right knee from Last 3 Months Immunizations Name Administration Dates Next Due Influenza, Quadrivalent, Spl it, Intramuscular 01/04/2021,11/12/2018,12/25/2016 Influenza, Quadrivalent, Spl it, Preservative Free, Intramuscular 11/12/2018,10/29/2017 Moderna SARS-CoV-2 Monovalen t Vaccination (12+ YRS) 01/04/2021 Pneumococcal Polysaccharide PPV23 02/24/1989 Tdap 02/24/2014 Surgical History Surgery Date Site/Laterality Comments SECTION KNEE ARTHROSCOPY CARPAL TUNNEL RELEASE ELBOW SURGERY TONSILLECTOMY ESOPHAGOGASTRODUODENOSCOPY 02/24/2023 - 02/24/2024 showed some erosion Medical History Medical History Date Comments Uncontrolled type 2 diabetes mellitus with hyperglycemia, with long-term current use of insulin ([facility]) 04/03/2017 Type 1 diabetes mellitus ([facility]) 08/04/2018 Uncontrolled type 2 diabetes mellitus with hyperglycemia ([facility]) 03/14/2017 Anxiety Arthritis Depression Dizziness GERD (gastroesophageal reflux disease) High blood pressure Diabetes ([facility]) Foraminal stenosis of cervical region Arthropathy of cervical facet joint DDD (degenerative disc disease), cervical Insulin pump in place omnipod da sh Uses self-applied continuous glucose monitoring device Hyperlipidemia PAD (peripheral artery disease) ([facility]) with stent placed on right side H/O insulin dependent diabetes mellitus Stomach ulcer Obesity Second hand smoke exposure Wears partial dentures Family History Medical History Relation Name Comments Diabetes Father Heart disease Mother Hypertension Mother Relation Name Status Comments Father [...] materials from doctor or pharmacy Never 10/22/2023 [facility] Utilities Answer Date Recorded In the [...] often do you attend chur ch or gnosticism services? Never 10/07/2023 Do you belong to any clubs o r organizations such as zoroastrianism groups, unions, fraternal or athletic groups, or [...] time in the past 12 m [facility], were you homeless or living in a penitentiary (including now)? No 10/07/2023 Personal Safety Answer Date Recorded Have you ever been in or are you currently in a harmful physical or emotional relationship or is someone making you feel afraid or unsafe? 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 Not on file Not on file Not on file Obstetrics History Last Filed Vital Signs Vital Sign Reading Time Taken Comments Blood Pressure 97/57 02/04/2024 9:21 AM BURIAL NEEDS SALESPERSON Pulse 79 02/04/2024 9:21 AM BURIAL NEEDS SALESPERSON Temperature 36.2 ??C (97.1 ??F) 10/14/2023 11:22 AM C DT Respiratory Rate 18 02/04/2024 9:21 AM BURIAL NEEDS SALESPERSON Oxygen Saturation 97% 02/04/2024 9:21 AM BURIAL NEEDS SALESPERSON Inhaled Oxygen Concentration - - Weight 92.1 kg (203 lb) 02/04/2024 9:21 AM BURIAL NEEDS SALESPERSON Height 165 cm (5' 4.96 ) 02/04/2024 9:21 AM BURIAL NEEDS SALESPERSON Body Mass Index 33.82 02/04/2024 9:21 AM BURIAL NEEDS SALESPERSON Plan of Treatment Health Maintenance Due Date Last Done Comments Breast Cancer Screening-Mammogram 1967 Cervical Cancer Screening 1967 Colon Cancer Screening-Colonoscopy 1967 Hepatitis C Screening 1967 Hepatitis B Screening 06/09/1985 Regular Well Visit/Exam 18-64 06/09/1985 Pneumococcal vaccine <65 (2 of 2 - PCV) 02/24/1990 02/24/1989 Zoster Vaccine (1 of 2) 06/09/2017 Depression Screening 04/03/2018 04/03/2017 Dilated Eye Exam 02/09/2022 02/09/2021, 11/26/2019 Covid-19 Vaccine (2023-2 5 season) 2023 01/04/2021, 04/01/2020, 03/04/2020 Influenza Vaccine (#1) 2023 , 11/12/2018, 11/12/2018, Additional history exists DTaP/Tdap/Td Vaccine (2 - Td or Tdap) 02/25/2024 02/24/2014 Hemoglobin A1C 07/20/2024 01/21/2024, 08/25, 04/28/2023, Additional history exists eGFR 10/06/2024 10/07/2023, 08/25, 04/28/2023, Additional history exists Albumin Creatinine Ratio, Urine 11/23/2024 11/24/2023, 07/19/2022, 02/13/2022, Additional history exists Lipid Panel 11/23/2024 11/24/2023, 06/25, 01/18/2022, Additional history exists Foot Exam 01/20/2025 01/21/2024, 10/25, 06/26/2023, Additional history exists Medical Devices Implanted Type Area Report Manager Device Identifier Shelf Expiration Date Model / Serial / Lot [employer] Attune Cruciate Retain Cementless Knee Right 5 Narrow Component [id number] - [id number] Implanted:Qty: 1 on 10/06/2023 by Regi Khan DO at [facility] Right: Knee [employer] [id number] 06/23/2032 [id number] / / [id number] [employer] Attune 35mm Cemented Medialize Knee Dome Patellar Aox Sterile [id number] - [id number] Implanted:Qty: 1 on 10/06/2023 by Regi Khan DO at [facility] Right: Knee [employer] [id number] 08/24/2031 [id number] / / [id number] [employer] Attune Fb Tib Base Sz 5 Por [id number] - [id number] Implanted:Qty: 1 on 10/06/2023 by Regi Khan DO at [facility] Right: Knee [employer] [id number] 03/26/2033 [id number] / / [id number] [employer] Cmw 2 Fast Set Cement 20gm Bone Sterile 3322-020 - [id number] Implanted:Qty: 1 on 10/06/2023 by Regi Khan DO at [facility] Right: Knee [employer] [id number] 10/23/2025 3322-020 / / [id number] [employer] Insert Tibial Knee Fixed Rm Posterior Stabilized Attune 6mm Size 5 Polyethylene [id number] - [id number] Implanted:Qty: 1 on 10/06/2023 by Regi Khan DO at [facility] Right: Knee [employer] [id number] 01/23/2030 [id number] / / [id number] Procedures Procedure Name Priority Date/Time Associated Diagnosis Comments POCT HEMOGLOBIN A1C Routine 01/21/2024 10:37 AM BURIAL NEEDS SALESPERSON Type 2 diabetes mellitus with hypoglycemia without coma, with long-term current use of insulin (HCC) POCT GLUCOSE Routine 01/21/2024 10:35 AM BURIAL NEEDS SALESPERSON Type 2 diabetes mellitus with hypoglycemia without coma, with long-term current use of insulin (HCC) XR KNEE RIGHT 3 VIEWS Schedule Routine, Read Routine (OP Routine) 01/02/2024 12:46 PM BURIAL NEEDS SALESPERSON Aftercare following right knee joint replacement surgery LIPID PANEL Routine 11/24/2023 11:56 AM CDT Type 2 diabetes mellitus with hyperglycemia, with long-term current use of insulin (HCC) ALBUMIN CREATININE RATIO, URINE Routine 11/24/2023 11:56 AM CDT Type 2 diabetes mellitus with hyperglycemia, with long-term current use of insulin (HCC) EGFR Routine 10/07/2023 2:52 AM CDT DIABETIC EYE EXAM Routine 02/09/2021 HM DIABETES FOOT EXAM Routine 04/03/2017 from Last 3 Months or Most Recently Relevant to Health Maintenance Results * POCT hemoglobin A1c (01/21/2024 10:37 AM BURIAL NEEDS SALESPERSON) Hemoglobin A1C, POC 6.1 4.0 - 5.6 % Blood 01/21/2024 10:3 7 AM BURIAL NEEDS SALESPERSON us Marialuisa Tyson PRODUCE RUNNER POINT OF CARE TEST ORDERABLES F inal Result * POCT glucose (01/21/2024 10:35 AM BURIAL NEEDS SALESPERSON) Glucose Blood, POC 153 mg/dL Blood 01/21/2024 10:3 5 AM BURIAL NEEDS SALESPERSON us Marialuisa Tyson PRODUCE RUNNER POINT OF CARE TEST ORDERABLES F inal Result * XR Knee Right 3 Views (01/02/2024 12:46 PM BURIAL NEEDS SALESPERSON) Anatomical Region Laterality Modality Lower Extremities, Knee Right Computed Radiography 01/04/2024 7:55 AM BURIAL NEEDS SALESPERSON Narrative 01/04/2024 8:03 AM BURIAL NEEDS SALESPERSON EXAM DESCRIPTION: XR KNEE RIGHT 3 VIEWS [...] AM T: ??01/04/2024 8:03 AM Report ID: [id number] Reading Location: ??[id number] Procedure Note Lamont Hidalgo MD - 01/04/2024 [...] Lamont Hidalgo M.D. MF: [id number] Report ID: [id number] Reading Location: [id number] Yoan Edwards [facility] XR PROCEDURES Final Result * (ABNORMAL) Albumin Creatinine Ratio, Urine (11/24/2023 11:56 AM CDT) Albumin Ur 199.5 mg/L Comment: Interpretive Data No reference range established. Current interpretive data was last revised 2018. Testing performed by: [address] [address] Creatinine Ur 107.0 mg/dL OLIVIA CUNNINGHAM Comment: Interpretive Data No reference range established. Current interpretive data was last revised 2018. Testing performed by: [address] [address] Albumin Creatinine Ratio, Ur 186(H) 1 - 29 mg/g OLIVIA CUNNINGHAM Comment:Testing performed by : [address] [id number] Urine 11/24/2023 11:5 6 AM CDT 11/24/2023 5:06 PM CDT us Marialuisa Tyson NP LAB URINE ORDERABLES Final Resu lt PEREZSTEFFANY [address] [facility] Department [place] [address] * (ABNORMAL) Lipid panel (11/24/2023 11:56 AM CDT) Cholesterol 117 30 - 199 mg/dL Comment: [...] on 2017. Testing performed by: [facility], [address] [place] [address]., [id number] Triglycerides 146 <=149 mg/dL OLIVIA Comment: Interpretive Data Ages < [...] last revised on 2017. Testing performed by: [address] [address] HDL 38(L) >=40 mg/dL [facility] Comment: Interpretive Data Ages < or = [...] last revised on 2017. Testing performed by: [address] [address] LDL, calculated 54 <=129 mg/dL [facility] Comment: Interpretive Data Ages < or = 19 years ??Acceptable: ? <110 mg/dL ??Borderline high: ??110-129 mg/dL ??High: ?>or= 130 mg/dL Ages > or = 20 years ??Optimal: ? <100 mg/dL ??Near optimal: ?100-129 mg/dL ??Borderline high: ?? 130-159 mg/dL ??High: ?>160 mg/dL Calculated using the Iniguez LDL-C estimating equation. This equation was implemented on 2023. Prior to this date LDL-C was estimated using the Friedewald equation. Literature References: 1. Expert Panel on Integrated Guidelines for Cardiovascular Health and Risk Reduction in Children and Adolescents. Pediatrics 2011;128:S213 2. NCEP Expert Panel. Circulation 2004;110:227 3. Hira M et al. VLADIMIR Cardiol. 2020 June 24;5(5):540-548. doi: 10.1001/jamacardio.2020.0013 Current Interpretive Data was last revised on 2023. Testing performed by: [address] [address] Non-HDL Cholesterol 79 mg/dL [facility] Comment: Interpretive [...] last revised on 2017. Testing performed by: [address] [address] Chol/HDL ratio 3 [facility] Comment:Testing performed by : [address] [address] Blood 11/24/2023 11:5 6 AM CDT 11/24/2023 12:17 PM CDT Narrative OLIVIA - 11/24/2023 1:25 PM CDT These lab test should be done fasting. This means do not eat or drink for at least 12 hours prior to getting your blood drawn. Has the patient been fasting for 8 hours or more?->Yes us Marialuisa Tyson NP LAB BLOOD ORDERABLES Final Resu lt [facility] [address] [facility] [place] [address] * eGFR (10/07/2023 2:52 AM CDT) eGFR 64 >=60 mL/min/1. 73 m2 Comment: [...] 2:52 AM CDT 10/07/2023 3:03 AM CDT us Yoan GIRARD LAB BLOOD ORDERABLES Final Resul t [facility] [address] [facility] [place] [address] * (ABNORMAL) Diabetic Eye Exam (02/09/2021) us Historical Provider HEALTH MAINTENANCE Final Result * DIABETES FOOT EXAM (04/03/2017) Diabetic Foot Exam Unknown us Historical Provider HEALTH MAINTENANCE Final Result from Last 3 Months or Most Recently Relevant to Health Maintenance Insurance Advance Directives For more information, please contact: [phone] * Full Code (Latest Code Status on File) Date Activated Date Inactivated Comments 10/06/2023 11:23 AM 10/07/2023 11:04 PM Care Teams [employer] Work[employer] Relationship Specialty Start Date End Date Eron Holliday NP [address] [facility] [place] [address] PCP - General Pain Management 07/15/22 Marialuisa Tyson, CHRISTOPHER [address] [facility] [place] [address] Nurse Practitioner Endocrinology Diabetes & Metabolism 09/22/23 Leobardo Bhagat MD [address] [facility] [address] [place] [address] [place] [id number] Consulting Physician Nephrology 09/22/23 [place] [id number] [address] Consulting Physician Cardiovascular Disease 09/22/23 Lamar Slater NP [address] [facility] [address] [address] [place] [address] [place] [id number] Nurse Practitioner Orthopedic Surgery 02/04/24 Maycol Gatica DO [address] [facility] [address] [address] [place] [address] [place] [id number] Consulting Physician Orthopedic Surgery 02/04/24
--- OUTSIDE RECORDS SUMMARY | 2024-03-03 15:32 | XMS_ITS | CONTINUITY OF CARE DOCUMENT ---
Author Name rachele jeffrey Address Unknown Organization [facility] Address [address] [place] [address] Phone [phone] Care Team Providers Care Event Marketing Coordinator Name Role Phone Florin Dixon MD Unavailable [phone] JILL JOY Unavailable JILL JOY Unavailable PROBLEMS Condition Status Date Provider Notes Obesity active Florin Dixon MD Heart murmur active Florin Dixon MD Dyslipidemia active Florin Dixon MD Proteinuria active Florin Dixon MD Carotid artery stenosis, <50 % ICA b/l active Florin Dixon MD Hypertension active Florin Dixon MD Abnormal nuclear stress test - 09/2018 cath no CAD active Lynn Rodrigues MD PVD S/P R SFA STENT 11/2018 active Florin mcdonough MD Tobacco abuse active Eddie Zarate Herniated disc active Eddie Zarate Exposure to SARS-associated coronavirus - negative swab 07/2019 active Eddie Zarate Leg pain, right completed - Eddie Zarate Hypertrophic cardiomyopathy active Florin mcdonough MD Peripheral artery disease active Anshul harper Hx of tobacco use, quit active Anshul pruitt Diabetes mellitus active Florin Dixon MD ENCOUNTERS Date Type Provider Location Encounter Diag nosis - In-person encounter Office Visit Florin Dixon MD [facility] - In-person encounter Office Visit Florin Dixon MD [facility] Hx of tobacco use, quitPeripheral artery disease - In-person encounter Office Visit Florin Dixon MD [facility] Hypertrophic cardiomyopathy - In-person encounter Office Visit Florin Dixon MD [facility] - In-person encounter Office Visit Florin Dixon MD [facility] - In-person encounter Office Visit Florin Dixon MD [facility] Leg pain, right - In-person encounter Office Visit Florin Dixon MD [facility] Exposure to SARS-associated coronavirus - negative swab 07/2019 - In-person encounter Office Visit Florin Dixon MD [facility] - In-person encounter Office Visit Florin Dixon MD [facility] Carotid artery stenosis, <50% ICA b/lPVD S/P R SFA STENT 11/2018Herniated disc - In-person encounter Office Visit Lynn Rodrigues MD [facility] Abnormal nuclear stress test - 09/2018 cath no CADPVD S/P R SFA STENT 11/2018 - In-person encounter Office Visit Florin Dixon MD [facility] Abnormal nuclear stress test - 09/2018 cath no CADPVD S/P R SFA STENT 11/2018Tobacco abuse - In-person encounter Office Visit Florin Dixon MD [facility] ObesityHeart murmurDiabetes mellitusDyslipidemiaProteinuriaCarotid artery stenosis, <50% ICA b/lHypertension VITAL SIGNS Date Observation Value Provider Body Mass Index (Ratio) 35.11 kg/m2 Reyes Smith blood pressure, diastolic -1 mm[Hg] Radha nkLogic blood pressure, systolic 125 mm[Hg] Angeline Stafford blood pressure, diastolic 76 mm[Hg] Ja rr blood pressure, systolic 125 mm[Hg] Jar ret pulse rate 68 /min Hernesto y oxygen saturation, oximetry 96 % Hernesto respiratory rate E&M 16 /min Hernetso blood pressure, cuff size regular Ja weight E&M 211 [lb_av] Hernesto y height E&M 65 [in_i] Hernesto y Body Mass Index (Ratio) 35.27 kg/m2 Grah am Nely blood pressure, cuff size regular blood pressure, diastolic 84 mm[Hg] [facility] blood pressure, systolic 147 mm[Hg] [facility] pulse rate 74 /min Hernesto y respiratory rate E&M 12 /min [facility] oxygen saturation, oximetry 97 % weight E&M 212 [lb_av] Hernesto y height E&M 65 [in_i] Hernesto y Body Mass Index (Ratio) 35.44 kg/m2 Kriss Nichole blood pressure, diastolic 85 mm[Hg] Ke rri Gruenemalry blood pressure, systolic 141 mm[Hg] Lorie Freed blood pressure, cuff size large Ke rri Gruenenfdustiner oxygen saturation, oximetry 97 % Carrie Lourdes respiratory rate E&M 16 /min Carrie almonte pulse rate 86 /min Carrie Resendiz lder weight E&M 213 [lb_av] Carrie Resendiz lder height E&M 65 [in_i] Carrie Resendiz lder Body Mass Index (Ratio) 36.94 kg/m2 Mervat Ybarra oxygen saturation, oximetry 97 % Chastity Lisa blood pressure, diastolic 62 mm[Hg] Ch astity Lisa blood pressure, systolic 108 mm[Hg] Sydney stity Lisa pulse rate 85 /min Chastity Lisa weight E&M 222 [lb_av] Chastity Lisa respiratory rate E&M 18 /min Chastit y Lisa height E&M 65 [in_i] Chastity Lisa Body Mass Index (Ratio) 40.43 kg/m2 Ziyad ken Tessa blood pressure, diastolic 63 mm[Hg] Fe mary kay Mcgee blood pressure, systolic 127 mm[Hg] Fel icia Mcgee oxygen saturation, oximetry 98 % Brooke Mcgee pulse rate 82 /min Brooke Mcgee weight E&M 243 [lb_av] Brooke Mcgee respiratory rate E&M 16 /min Brooke Mcgee height E&M 65 [in_i] Brooke Mcgee Body Mass Index (Ratio) 40.17 kg/m2 Ziyad ken Tessa blood pressure, diastolic 60 mm[Hg] Jon Vanessaruy HuertaPrabhakar blood pressure, systolic 144 mm[Hg] Priscilla Prabhakar oxygen saturation, oximetry 96 % Stephanie Prabhakar respiratory rate E&M 18 /min Harris Prabhakar pulse rate 92 /min Stephanie vega weight E&M 241.4 [lb_av] Stephanie donaldsonon height E&M 65 [in_i] Stephanie vega Body Mass Index (Ratio) 40.77 kg/m2 Ziyad ken Tessa blood pressure, diastolic 83 mm[Hg] Fe mary kay Mcgee blood pressure, systolic 147 mm[Hg] Fel icia Mcgee pulse rate 88 /min Brooke Mcgee oxygen saturation, oximetry 98 % Brooke Mcgee respiratory rate E&M 18 /min Brooke Mcgee weight E&M 245 [lb_av] Brooke Mcgee height E&M 65 [in_i] Brooek Mcgee Body Mass Index (Ratio) 41.10 kg/m2 Ziyad [facility] pulse rate 95 /min [facility] blood pressure, diastolic 58 mm[Hg] [facility], systolic 122 mm[Hg] [facility], oximetry 98 % [facility] weight E&M 247 [lb_av] Kaela [facility] blood pressure, resting Yes [facility] respiratory rate E&M 16 /min [facility] height E&M 65 [in_i] [facility] Body Mass Index (Ratio) 40.60 kg/m2 Jer Rodrigues MD blood pressure, cuff size regular Kr isty [place] blood pressure, diastolic 70 mm[Hg] Kr isty Ishmael blood pressure, systolic 130 mm[Hg] Kri sty Ishmael oxygen saturation, oximetry 95 % Muriel Ishmael pulse rate 87 /min Murile [place] respiratory rate E&M 18 /min Muriel [place] weight E&M 244 [lb_av] Muriel [place] height E&M 65 [in_i] Muriel Ishmael Body Mass Index (Ratio) 39.77 kg/m2 Ziyad [facility] blood pressure, diastolic 70 mm[Hg] Cristo Quiñones blood pressure, systolic 140 mm[Hg] Andrews Quiñones oxygen saturation, oximetry 97 % Muriel Ibanez respiratory rate E&M 19 /min Muriel Ibanez pulse rate 94 /min Muriel Ibanez blood pressure, cuff size regular Cristo Quiñones weight E&M 239 [lb_av] Muriel Ibanez height E&M 65 [in_i] Muriel Ibanez Body Mass Index (Ratio) 40.60 kg/m2 Ziyad Zarate blood pressure, diastolic, left arm 70 mm [Hg] Muriel blood pressure, systolic, left arm 140 mm [Hg] Muriel Ibanez blood pressure, diastolic, right arm 70 m m[Hg] Muriel Ibanez blood pressure, systolic, right arm 130 m m[Hg] Muriel blood pressure, diastolic 70 mm[Hg] Cristo Quiñones blood pressure, systolic 140 mm[Hg] Andrews Quiñones oxygen saturation, oximetry 98 % Muriel Ibanez pulse rate 83 /min Muriel Quiñones respiratory rate E&M 18 /min Muriel Ibanez height E&M 65 [in_i] Muriel weight E&M 244 [lb_av] Muriel Ishmael ALLERGIES Allergy Name Onset Date Reaction Criticality Status NSAIDS Low Criticality active CODEINE Low Criticality active RESULTS Date Observation Value Provider Reference Range Interpretation Location lipoprotein, beta, serum, point, quantitative, calculated 52 mg/dL [facility] 0-99 very low density lipoproteins 50 mg/dL [facility] 5-40 High HDL cholesterol, serum 28 mg/dL [facility] >39 Low triglyceride, serum, random 248 mg/dL [facility] 0-149 High cholesterol, serum 130 mg/dL [facility] [phone]/06/ 03 prothrombin time (patient) 9.6 s [facility] 9.1-12.0 international normalized ratio (INR) 0.9 [facility] 0.8-1.2 calcium, serum 10.0 mg/dL [facility] 8.7-10.2 carbon dioxide, venous blood 20 mmol/L [facility] 20-29 chloride, serum 102 mmol/L [facility] 96-106 potassium, serum 5.3 mmol/L [facility] 3.5-5.2 High sodium, serum 141 mmol/L [facility] [phone]/06/ 03 urea nitrogen/creatinine ratio, serum 29 [facility] 9-23 High eGFR if 78 mL/min/{1 .73_m2} [facility] >59 eGFR if not 67 mL/min/{1 .73_m2} [facility] >59 creatinine, serum 0.97 mg/dL [facility] 0.57-1.00 urea nitrogen, blood 28 mg/dL [facility] 6-24 High blood glucose, random 167 mg/dL [facility] 65-99 High basophil count, absolute 0.1 x10E3/uL [facility] 0.0-0.2 Eosinophil Absolute Count 0.3 X10E3/UL [facility] 0.0-0.4 monocyte count, blood, automated 0.7 X10E3/UL [facility] 0.1-0.9 lymphocyte count, blood, automated 3.4 X10E3/UL [facility] 0.7-3.1 High Absolute Neutrophils 5.4 X10E3/UL [facility] 1.4-7.0 basophils as percent of blood leukocytes 1 % [facility] Not Estab. eosinophils as percent of blood leukocytes 3 % [facility] Not Estab. monocytes as percent of blood leukocytes 7 % [facility] Not Estab. lymphocytes as percent of blood leukocytes 35 % [facility] Not Estab. neutrophils as percent of blood leukocytes 54 % [facility] Not Estab. platelet count 359 X10E3/UL [facility] [phone]/06/ 03 red blood cell distribution width 12.3 % [facility] 11.7-15.4 mean corpuscular hemoglobin concentration, RBC 33.1 G/DL [facility] 31.5-35.7 mean corpuscular hemoglobin, RBC 29.5 pg [facility] 26.6-33.0 mean corpuscular volume, RBC [facility]L [facility] hematocrit, blood 38.7 % [facility] 34.0-46.6 hemoglobin, blood 12.8 g/dL [facility] 11.[facility]-15.9 erythrocyte (RBC) count 4.34 X10E6/UL [facility] 3.77-5.28 leukocyte count, blood 9.9 X10E3/UL [facility] 3.4-10.8 microalbumin, random, urine 2006.7 mg/dL [facility] microalbumin/creatin ine ratio, urine 1216.2 ug/mg [facility] albumin/creatinine ratio, urine 1216.2 mg/g{crea t} [facility] microalbumin/total urine volume 2006.7 mg/L [facility] creatinine, random, urine 165.0 mg/dL [facility] hemoglobin A1C, blood, as % of total hemoglobin 8.0 % [facility] triglyceride, serum, fasting 232 mg/dL [facility] HDL cholesterol, serum 28 mg/dL [facility] LDL cholesterol, serum 105 mg/dL [facility] cholesterol, serum 179 mg/dL [facility] platelet count 323 10*3/mm3 [facility] platelet count 323 10*3/uL [facility] red blood cell distribution width 14.0 % [facility] mean corpuscular hemoglobin concentration, RBC 32.7 g/dL [facility] mean corpuscular hemoglobin, RBC 29.2 pg [facility] mean corpuscular volume, RBC 90 fL [facility] hematocrit, blood 40.7 % [facility] hemoglobin, blood 13.3 g/dL [facility] erythrocyte (RBC) count 4.55 10*6/mm3 [facility] leukocyte count, blood 10.1 10*3/mm3 [facility] carbon dioxide, venous blood 20 mmol/L [facility] protein, total, serum 6.9 g/dL [facility] albumin, serum 4.4 g/dL [facility] bilirubin, serum, total 0.2 mg/dL [facility] alkaline phosphatase, serum 73 1/L [facility] alanine aminotransferase (SGPT), serum 35 1/L [facility] aspartate aminotransferase (SGOT), serum 38 1/L [facility] calcium, serum 9.8 mg/dL [facility] blood glucose, random 137 mg/dL [facility] creatinine, serum 0.96 mg/dL [facility] urea nitrogen, blood 15 mg/dL [facility] carbon dioxide, serum, total 20 mmol/L [facility] chloride, serum 105 mmol/L [facility] potassium, serum 4.7 mmol/L [facility] sodium, serum 141 mmol/L [facility] microalbumin/creatin ine ratio, urine 1296.3 MG/G CREAT [facility] 0.0-30.0 High microalbumin, random, urine 65.98 mg/dL [facility] Units converted. See lab report for original value. creatinine, random, urine 50.9 mg/dL [facility] Not Estab. hemoglobin A1C, blood, as % of total hemoglobin 8.6 % [facility] 4.8-5.6 High prothrombin time (patient) 9.7 s [facility] 9.1-12.0 international normalized ratio (INR) 0.9 [facility] 0.8-1.2 lipoprotein, beta, serum, point, quantitative, calculated 102 mg/dL [facility] 0-99 High very low density lipoproteins 41 mg/dL [facility] 5-40 High HDL cholesterol, serum 30 mg/dL [facility] >39 Low triglyceride, serum, random 204 mg/dL [facility] 0-149 High cholesterol, serum 173 mg/dL [facility] [phone]/07/ 13 calcium, serum 10.4 mg/dL [facility] 8.7-10.2 High carbon dioxide, venous blood 23 mmol/L [facility] 20-29 chloride, serum 100 mmol/L [facility] 96-106 potassium, serum 5.1 mmol/L [facility] 3.5-5.2 sodium, serum 140 mmol/L [facility] [phone]/07/ 13 urea nitrogen/creatinine ratio, serum 16 [facility] 9-23 eGFR if 77 mL/min/{1 .73_m2} [facility] >59 eGFR if not 67 mL/min/{1 .73_m2} [facility] >59 creatinine, serum 0.98 mg/dL [facility] 0.57-1.00 urea nitrogen, blood 16 mg/dL [facility] 6-24 blood glucose, random 147 mg/dL [facility] 65-99 High basophil count, absolute 0.1 x10E3/uL [facility] 0.0-0.2 Eosinophil Absolute Count 0.3 X10E3/UL [facility] 0.0-0.4 monocyte count, blood, automated 0.7 X10E3/UL [facility] 0.1-0.9 lymphocyte count, blood, automated 3.8 X10E3/UL [facility] 0.7-3.1 High Absolute Neutrophils 5.8 X10E3/UL [facility] 1.4-7.0 basophils as percent of blood leukocytes 1 % [facility] Not Estab. eosinophils as percent of blood leukocytes 3 % [facility] Not Estab. monocytes as percent of blood leukocytes 6 % [facility] Not Estab. lymphocytes as percent of blood leukocytes 36 % [facility] Not Estab. neutrophils as percent of blood leukocytes 54 % [facility] Not Estab. platelet count 322 X10E3/UL [facility] [phone]/07/ 13 red blood cell distribution width 13.4 % [facility] 12.3-15.4 mean corpuscular hemoglobin concentration, RBC 33.7 G/DL [facility] 31.5-35.7 mean corpuscular hemoglobin, RBC 28.9 pg [facility] 26.6-33.0 mean corpuscular volume, RBC 86 fL [facility] 79-97 hematocrit, blood 41.0 % [facility] 34.0-46.6 hemoglobin, blood 13.8 g/dL [facility] 11.1-15.9 erythrocyte (RBC) count 4.77 X10E6/UL [facility] 3.77-5.28 leukocyte count, blood 10.6 X10E3/UL [facility] 3.4-10.8 HISTORY OF MEDICATION USE Medication Status Instructions Dates Provider Indications Com mentyou aspirin 81 mg tablet,delayed release (DR/EC) active TAKE 1 TABLET BY MOUTH DAILY 04/14 Yolis Rushing clopidogrel 75 mg tablet active TAKE 1 TABLET BY MOUTH DAILY 08/26 Carole Rebolledo aspirin 81 mg tablet,delayed release (DR/EC) completed Take 1 tablet by mouth once a day 05/29 - 04/14 Yolis Rushing clopidogrel 75 mg tablet completed Take 1 tablet by mouth once a day 09/23 - 08/26 Hernesto Clemente losartan 100 mg tablet active Kaela Ybarra clopidogrel 75 mg tablet completed TAKE 1 TABLET BY MOUTH DAILY 02/27 - 09/23 Carrie Freed aspirin 81 mg tablet,delayed release (DR/EC) completed TAKE 1 TABLET BY MOUTH DAILY 03/10 - 05/29 Carrie Lourdes clopidogrel 75 mg tablet completed TAKE 1 TABLET BY MOUTH DAILY - 02/27 Glo Boyce Ozempic 0.25 mg or 0.5 mg(2 mg/1.5 mL) pen injector active inject 0.25mg subcutaneously once weekly x4 weeks, then increase to 0.5mg subcutaneously weekly 09/06 Brooke Mcgee HYDROCODONE-ACET AMINOPHEN 5-325 MG ORAL TABLET completed Take one tablet every 6 hours as needed for leg pain 08/05 - 09/06 Florin Dixon MD aspirin 81 mg tablet,delayed release (DR/EC) completed Take 1 tablet by mouth once a day 05/12 - 03/10 Kaela Ybarra clopidogrel 75 mg tablet completed Take 1 tablet by mouth once a day 05/12 - Glo Boyce ezetimibe 10 mg tablet active Take 1 tablet once a day 03/29 Florin Dixon MD naltrexone 50 mg tablet active 1/2 tab by mouth daily, if not effective after 1 week may increase to 1/2 tab twice daily 03/29 Amy Leyva Patient has not started yet - she was told to not take at the same time as hydrocodone bupropion HCl 100 mg tablet active 1 tab by mouth daily, if not effective after 1 week may increase to 1 tab twice daily 03/29 Amy Leyva Patient has not started yet - she was told to not take at the same time as hydrocodone citalopram 20 mg tablet active Take 1 tablet by mouth once a day 08/04 Muriel Quiñones norethindrone acetate 5 mg tablet active Take 1 tablet by mouth once a day 08/04 Muriel Quiñones duloxetine 30 mg capsule,delayed release(DR/EC) active Take 1 tablet by mouth twice a day 08/04 Muriel Ishmael RANITIDINE 150 MAX STRENGTH TABLET completed take one tablet by mouth twice daily 08/04 - 09/06 Florin Dixon MD zolpidem 10 mg tablet active Take 1 tablet by mouth once a day 08/04 Murielmaria d Quiñones BD Insulin Syringe Ultra-Fine 1 mL 31 gauge x 5/16 syringe active Use twice a day 07/13 Murielmaria d Quiñones #100, 30 days supply, Prescribed by JAMEEL YANG, Filled 07/13/2018 Admelog U-100 Insulin lispro 100 unit/mL solution active Inject 44 unit three times a day 06/18 Muriel Quiñones #50, 30 days supply, Prescribed by JAMEEL YANG, Filled 07/17/2018 Basaglar KwikPen U-100 Insulin 100 unit/mL (3 mL) insulin pen active Inject 32 unit subcutaneously every twelve hours 07/13 Muriel Quiñones #21, 30 days supply, Prescribed by JAMEEL YANG, Filled 07/13/2018 lisinopril 20 mg tablet completed 1 tablet once a day 04/15 - Kaela Ybarra MULTI-VITAMINS TABS active Take 1 tablet by mouth once a day 07/23 Muriel [place] #30, 30 days supply, Prescribed by SHANNAN KEARNEY, Filled 07/23/2018 estradiol 0.5 mg tablet active Take 1 tablet by mouth once a day 07/23 Muriel [place] #30, 30 days supply, Prescribed by SHANNAN KEARNEY, Filled 07/23/2018 CALCIUM 600-D 600-400 MG-UNIT ORAL TABLET active Take 1 tablet by mouth twice a day 07/23 Muriel Ishmael #60, 30 days supply, Prescribed by SHANNAN KEARNEY, Filled 07/23/2018 metformin 1,000 mg tablet active Take 1 tablet by mouth twice a day 05/01 Muriel Quiñones #60, 30 days supply, Prescribed by JAMEEL YANG, Filled 07/27/2018 atorvastatin 80 mg tablet active Take 1 tablet by mouth once a day 09/01 Muriel Ishmael #30, 30 days supply, Prescribed by JAMEEL YANG, Filled 07/27/2018 hydrochlorothiaz ariadna 12.5 mg capsule active Take 1 tablet by mouth once a day 07/28 Muriel Quiñones #30, 30 days supply, Prescribed by SIRI NICHOLS, Filled 07/28/2018 SOCIAL HISTORY Date Observation Value Provider smoking, year quit 2021 Jon hardy number of years as a smoker 30+ Jon Smith smoking history, tot al pack/day 1 Jon Smith cigarette use yes Jon Figueroa smoking status Former smoker Jon Trrosa ozuna smoking, year quit 2021 Anshul Black tomas number of years as a smoker 30+ Anshul Chawlainari smoking history, tot al pack/day 1 Anshul Chawlainari cigarette use yes Anshul Chawlainar i smoking status Former smoker Anshul Blood edmond social history reviewed E&M revi ewed - no changes required Florin Dixon MD social history E&M S moking History: Nilton santana is a former smoker. Florin Dixon MD social history reviewed E&M revi ewed - no changes required Florin Dixon MD smoking, year quit 2021 Carrie arceo number of years as a smoker 30+ Carrie Freed smoking history, tot al pack/day 1 Carrie Frede cigarette use yes Carrie Jayden patel smoking status Former smoker Carrie Beaversyanira luke social history E&M S moking History: Nilton santana currently smokes every day. Nilton santana has been counseled to quit. Florin Dixon MD social history reviewed E&M revi ewed - no changes required Florin Dixon MD smoking/tobacco cess ation, patient education and counseling yes Chastity Lisa number of years as a smoker 30+ Peggyity Lisa smoking history, tot al pack/day 1 Sydneystity Lisa cigarette use yes Peggyity Lisa smoking status Current every day smoker C vinayak Gonzalez social history reviewed E&M revi ewed - no changes required [facility], patient education and counseling yes Brooke Mcgee number of years as a smoker 30+ Brooke Mcgee smoking history, tot al pack/day 1 Brooke Mcgee cigarette use yes Brooke Mcgee smoking status Current every day smoker F itzel Mcgee social history reviewed E&M revi ewed - no changes required [facility] smoking/tobacco cess ation, patient education and counseling yes Stephanie Prabhakar number of years as a smoker 30+ Stephanie Prabhakar smoking history, tot al pack/day 1 Stephanie Huertaenson cigarette use yes Stephanie Huerta enson smoking status Current every day smoker M Nirubindu Prabhakar social history reviewed E&M revi ewed - no changes required [facility], patient education and counseling yes Brooke Mcgee number of years as a smoker 30+ Eddie Tessa smoking history, tot al pack/day 1 Brooke Mcgee cigarette use yes Brooke Mcgee smoking status Current every day smoker F itzel Mcgee social history reviewed E&M revi ewed - no changes required [facility], patient education and counseling yes Kaela Block number of years as a smoker 30 a Kaela Block smoking history, tot al pack/day 1 Kaela Block cigarette use yes Kaela Block smoking status Current every day smoker B rittany Block social history reviewed E&M revi ewed - no changes required Lynn Rodrigues MD smoking/tobacco cess ation, patient education and counseling yes Muriel Quiñones number of years as a smoker 30 a Muriel Quiñones smoking history, tot al pack/day 1 Muriel Quiñones cigarette use yes Muriel Quiñones smoking status Current every day smoker Teri Quiñones social history reviewed E&M revi ewed - no changes required Florin Dixon MD smoking/tobacco cess ation, patient education and counseling yes Muriel Quiñones number of years as a smoker 30 a Muriel Quiñones smoking history, tot al pack/day 1 Muriel Quiñones cigarette use yes Muriel Quiñones smoking status Current every day smoker Teri Quiñones social history reviewed E&M revi ewed - no changes required Florin Dixon MD social history E&M Smoking Histo ry: P atient currently smokes every day. P atient has been counseled to quit. Florin Dixon MD smoking/tobacco cess ation, patient education and counseling yes Florin Dixon MD number of years as a smoker 30 a Muriel Quiñones smoking history, tot al pack/day 1 Florin Dixon MD cigarette use yes Muriel Quiñones smoking status Current every day smoker Teri Quiñones FAMILY HISTORY Family Member Condition Mother Family History Unkno wn INSURANCE PROVIDERS Payer name Policy type / Coverage type [place] [employer] party ID [place] MEDICAID (2) Medicaid [id number] ADVANCE DIRECTIVES Name Date DISCUSSED - NO DECISION MADE TREATMENT PLAN Date Name Performer [id number],S, B P today: 147/84 P rior BP: 141/85 (12/11/2021) Labs Reviewed: C reat: 0.97 (07/28/2019) C hol: 130 (07/28/2019) HDL: 28 (07/28/2019) Her updated medication list for this problem includes: Aspirin 81 Mg Tablet,delayed Release (dr/ec) (Aspirin) ..... Take 1 tablet by mouth daily Losartan 100 Mg Tablet (Losartan) Hydrochlorothiazide 12.5 Mg Capsule (Hydrochlorothiazide) ..... Take 1 tablet by mouth once a day Anshul Mckay [id number],S,P t does not have claudication at this time. No CP or SOB. Will obtain arterial duplex. In view of her severe PAD, we will obtain CRP, Lp(a) and lipid panel Her updated medication list for this problem includes: Ezetimibe 10 Mg Tablet (Ezetimibe) ..... Take 1 tablet once a day Atorvastatin 80 Mg Tablet (Atorvastatin) ..... Take 1 tablet by mouth once a day Anshul Daileyri [id number],B, Anshul Blood edmond [id number],S,P t does not have claudication at this time. No CP or SOB. Will obtain arterial duplex. In view of her severe PAD, we will obtain CRP, Lp(a) and lipid panel Her updated medication list for this problem includes: Aspirin 81 Mg Tablet,delayed Release (dr/ec) (Aspirin) ..... Take 1 tablet by mouth daily Clopidogrel 75 Mg Tablet (Clopidogrel) ..... Take 1 tablet by mouth once a day Anshulyola Daileyri [id number],S,r eports no leg pain O rders: 9 9215 HIGH 40-54min (CPT-18512) C RP, high sensitivity (43250) L ipoprotein (a) (266033) L IPID PANEL (1250) A rterial Duplex Bi-Lower EX (CPT-23250) Florin Dixon MD [id number],C, B P today: 141/85 P rior BP: 108/62 (12/05/2020) Labs Reviewed: C reat: 0.97 (07/28/2019) C hol: 130 (07/28/2019) HDL: 28 (07/28/2019) Her updated medication list for this problem includes: Aspirin 81 Mg Tablet,delayed Release (dr/ec) (Aspirin) ..... Take 1 tablet by mouth daily Lisinopril 20 Mg Tablet (Lisinopril) ..... 1 tablet once a day Hydrochlorothiazide 12.5 Mg Capsule (Hydrochlorothiazide) ..... Take 1 tablet by mouth once a day Kaela Tate [id number],C,. She missed her echo at last visit, will reschedule. H er updated medication list for this problem includes: Lisinopril 20 Mg Tablet (Lisinopril) ..... 1 tablet once a day Hydrochlorothiazide 12.5 Mg Capsule (Hydrochlorothiazide) ..... Take 1 tablet by mouth once a day Kaela Tate [id number],C,A rterial duplex showed severe inferopopliteal disease, however she is asymptomatic. She would like to pariticipate in the Confidence trial. She has stopped smoking Kaela Ybarra [id number],C,W eight loss advised Florin Dixon MD [id number],C, H er updated medication list for this problem includes: Aspirin 81 Mg Tablet,delayed Release (dr/ec) (Aspirin) ..... Take 1 tablet by mouth daily Lisinopril 20 Mg Tablet (Lisinopril) ..... 1 tablet once a day Ledy Haji U-100 Insulin 100 Unit/ml (3 Ml) Insulin Pen (Insulin glargine) ..... Inject 32 unit subcutaneously every twelve hours Metformin 1,000 Mg Tablet (Metformin) ..... Take 1 tablet by mouth twice a day Ozempic 0.25 Mg Or 0.5 Mg(2 Mg/1.5 Ml) Pen Injector (Semaglutide) ..... Inject 0.25mg subcutaneously once weekly x4 weeks, then increase to 0.5mg subcutaneously weekly Admelog U-100 Insulin Lispro 100 Unit/ml Solution (Insulin lispro) ..... Inject 44 unit three times a day Florin Dixon MD [id number],C, H er updated medication list for this problem includes: Ezetimibe 10 Mg Tablet (Ezetimibe) ..... Take 1 tablet once a day Atorvastatin 80 Mg Tablet (Atorvastatin) ..... Take 1 tablet by mouth once a day Florin Dixon MD [id number],S, A dvised to quit. Kaela Ybarra [id number],C, H er updated medication list for this problem includes: Lisinopril 20 Mg Tablet (Lisinopril) ..... 1 tablet once a day Aspirin 81 Mg Tablet,delayed Release (dr/ec) (Aspirin) ..... Take 1 tablet by mouth once a day Basaglar Kwikpen U-100 Insulin 100 Unit/ml (3 Ml) Insulin Pen (Insulin glargine) ..... Inject 32 unit subcutaneously every twelve hours Metformin 1,000 Mg Tablet (Metformin) ..... Take 1 tablet by mouth twice a day Ozempic 0.25 Mg Or 0.5 Mg(2 Mg/1.5 Ml) Pen Injector (Semaglutide) ..... Inject 0.25mg subcutaneously once weekly x4 weeks, then increase to 0.5mg subcutaneously weekly Admelog U-100 Insulin Lispro 100 Unit/ml Solution (Insulin lispro) ..... Inject 44 unit three times a day Kaela Ybarra [id number],C, H er updated medication list for this problem includes: Ezetimibe 10 Mg Tablet (Ezetimibe) ..... Take 1 tablet once a day Atorvastatin 80 Mg Tablet (Atorvastatin) ..... Take 1 tablet by mouth once a day Kaela Ybarra [id number],C,W ill repeat echo H er updated medication list for this problem includes: Lisinopril 20 Mg Tablet (Lisinopril) ..... 1 tablet once a day Hydrochlorothiazide 12.5 Mg Capsule (Hydrochlorothiazide) ..... Take 1 tablet by mouth once a day Kaela Ybarra [id number],S,W e will obtain echo and Arterial duplex. A Kaela Washingtoncee [id number],S, B P today: 108/62 P rior BP: 127/63 (09/07/2019) Labs Reviewed: C reat: 0.97 (07/28/2019) C hol: 130 (07/28/2019) HDL: 28 (07/28/2019) Her updated medication list for this problem includes: Lisinopril 20 Mg Tablet (Lisinopril) ..... 1 tablet once a day Aspirin 81 Mg Tablet,delayed Release (dr/ec) (Aspirin) ..... Take 1 tablet by mouth once a day Hydrochlorothiazide 12.5 Mg Capsule (Hydrochlorothiazide) ..... Take 1 tablet by mouth once a day Kaela Washingtoncee [id number],S,. She recently had laproscopic knee surgery. We will obtain echo and Arterial duplex. At this time she denies any claudication. Kaela Tate [id number],S, Florin Dixon MD [id number],S, Florin Dixon MD [id number],SFlorin MD Cardiology: H er updated medication list for this problem includes: Ezetimibe 10 Mg Tablet (Ezetimibe) ..... Take 1 tablet once a day Atorvastatin 80 Mg Tablet (Atorvastatin) ..... Take 1 tablet by mouth once a day This visit has been a part of the consistent, comprehensive, and ongoing management of the chronic medical condition(s) listed above for the patient. Jon Luis Cardiology:No CP or SOB. Will obtain arterial duplex. She is a candidate for knee surgery. She is cleared for knee surgery. She completed the CON[facility]ID[facility] clinical trial. H er updated medication list for this problem includes: Clopidogrel 75 Mg Tablet (Clopidogrel) ..... Take 1 tablet by mouth daily Aspirin 81 Mg Tablet,delayed Release (dr/ec) (Aspirin) ..... Take 1 tablet by mouth once a day Jon Smith Cardiology:Followed by PCP Aissatou fuentes updated medication list for this problem includes: Aspirin 81 Mg Tablet,delayed Release (dr/ec) (Aspirin) ..... Take 1 tablet by mouth once a day Losartan 100 Mg Tablet (Losartan) Pumamarcus Parkskimberly U-100 Insulin 100 Unit/ml (3 Ml) Insulin Pen (Insulin glargine) ..... Inject 32 unit subcutaneously every twelve hours Metformin 1,000 Mg Tablet (Metformin) ..... Take 1 tablet by mouth twice a day Ozempic 0.25 Mg Or 0.5 Mg(2 Mg/1.5 Ml) Pen Injector (Semaglutide) ..... Inject 0.25mg subcutaneously once weekly x4 weeks, then increase to 0.5mg subcutaneously weekly Admelog U-100 Insulin Lispro 100 Unit/ml Solution (Insulin lispro) ..... Inject 44 unit three times a day Jon Luis Cardiology: B P today: 125/76 P rior BP: 147/84 (11/20/2022) Labs Reviewed: C reat: 0.97 (07/28/2019) C hol: 130 (07/28/2019) HDL: 28 (07/28/2019) LDL: 52 (07/28/2019) T (07/28/2019) Her updated medication list for this problem includes: Aspirin 81 Mg Tablet,delayed Release (dr/ec) (Aspirin) ..... Take 1 tablet by mouth once a day Losartan 100 Mg Tablet (Losartan) Hydrochlorothiazide 12.5 Mg Capsule (Hydrochlorothiazide) ..... Take 1 tablet by mouth once a day This visit has been a part of the consistent, comprehensive, and ongoing management of the chronic medical condition(s) listed above for the patient. Jon Luis Cardiology Jon Luis Cardiology: B P today: 147/84 P rior BP: 141/85 (12/11/2021) Labs Reviewed: C reat: 0.97 (07/28/2019) C hol: 130 (07/28/2019) HDL: 28 (07/28/2019) Her updated medication list for this problem includes: Aspirin 81 Mg Tablet,delayed Release (dr/ec) (Aspirin) ..... Take 1 tablet by mouth daily Losartan 100 Mg Tablet (Losartan) Hydrochlorothiazide 12.5 Mg Capsule (Hydrochlorothiazide) ..... Take 1 tablet by mouth once a day Anshul Nely Cardiology:Pt does n ot have claudication at this time. No CP or SOB. Will obtain arterial duplex. In view of her severe PAD, we will obtain CRP, Lp(a) and lipid panel Her updated medication list for this problem includes: Ezetimibe 10 Mg Tablet (Ezetimibe) ..... Take 1 tablet once a day Atorvastatin 80 Mg Tablet (Atorvastatin) ..... Take 1 tablet by mouth once a day [facility] Cardiology [facility] Cardiology:Pt does n ot have claudication at this time. No CP or SOB. Will obtain arterial duplex. In view of her severe PAD, we will obtain CRP, Lp(a) and lipid panel Her updated medication list for this problem includes: Aspirin 81 Mg Tablet,delayed Release (dr/ec) (Aspirin) ..... Take 1 tablet by mouth daily Clopidogrel 75 Mg Tablet (Clopidogrel) ..... Take 1 tablet by mouth once a day [facility] Cardiology:reports n o leg pain O rders: 9 9215 HIGH 40-54min (CPT-83664) C RP, high sensitivity (65168) L ipoprotein (a) (404982) L IPID PANEL (7600) A rterial Duplex Bi-Lower EX (CPT-62063) Florin Dixon MD Cardiology - Add [place] remove Lisinopril: B P today: 141/85 P rior BP: 108/62 (12/05/2020) Labs Reviewed: C reat: 0.97 (07/28/2019) C hol: 130 (07/28/2019) HDL: 28 (07/28/2019) Her updated medication list for this problem includes: Aspirin 81 Mg Tablet,delayed Release (dr/ec) (Aspirin) ..... Take 1 tablet by mouth daily Lisinopril 20 Mg Tablet (Lisinopril) ..... 1 tablet once a day Hydrochlorothiazide 12.5 Mg Capsule (Hydrochlorothiazide) ..... Take 1 tablet by mouth once a day Kaela Washingtoncee Cardiology - Add Dirk black remove Lisinopril:. She missed her echo at last visit, will reschedule. H er updated medication list for this problem includes: Lisinopril 20 Mg Tablet (Lisinopril) ..... 1 tablet once a day Hydrochlorothiazide 12.5 Mg Capsule (Hydrochlorothiazide) ..... Take 1 tablet by mouth once a day Kaela Washingtoncee Cardiology - Add Dirk black remove Lisinopril:Arterial duplex showed severe inferopopliteal disease, however she is asymptomatic. She would like to pariticipate in the Confidence trial. She has stopped smoking Kaela Tate Cardiology - [facility] Dirk black remove Lisinopril:Weight loss advised Florin Dixon MD Cardiology - [facility] sofia remove Lisinopril: H er updated medication list for this problem includes: Aspirin 81 Mg Tablet,delayed Release (dr/ec) (Aspirin) ..... Take 1 tablet by mouth daily Lisinopril 20 Mg Tablet (Lisinopril) ..... 1 tablet once a day Basaglar Kaseypen U-100 Insulin 100 Unit/ml (3 Ml) Insulin Pen (Insulin glargine) ..... Inject 32 unit subcutaneously every twelve hours Metformin 1,000 Mg Tablet (Metformin) ..... Take 1 tablet by mouth twice a day Ozempic 0.25 Mg Or 0.5 Mg(2 Mg/1.5 Ml) Pen Injector (Semaglutide) ..... Inject 0.25mg subcutaneously once weekly x4 weeks, then increase to 0.5mg subcutaneously weekly Admelog U-100 Insulin Lispro 100 Unit/ml Solution (Insulin lispro) ..... Inject 44 unit three times a day lForin Dixon MD Cardiology - [facility] Dirk black remove Lisinopril: H er updated medication list for this problem includes: Ezetimibe 10 Mg Tablet (Ezetimibe) ..... Take 1 tablet once a day Atorvastatin 80 Mg Tablet (Atorvastatin) ..... Take 1 tablet by mouth once a day Florin Dixon MD Cardiology: A dvised to quit. Kaela Ybarra Cardiology: H er updated medication list for this problem includes: Lisinopril 20 Mg Tablet (Lisinopril) ..... 1 tablet once a day Aspirin 81 Mg Tablet,delayed Release (dr/ec) (Aspirin) ..... Take 1 tablet by mouth once a day Basaglar Kwikpen U-100 Insulin 100 Unit/ml (3 Ml) Insulin Pen (Insulin glargine) ..... Inject 32 unit subcutaneously every twelve hours Metformin 1,000 Mg Tablet (Metformin) ..... Take 1 tablet by mouth twice a day Ozempic 0.25 Mg Or 0.5 Mg(2 Mg/1.5 Ml) Pen Injector (Semaglutide) ..... Inject 0.25mg subcutaneously once weekly x4 weeks, then increase to 0.5mg subcutaneously weekly Admelog U-100 Insulin Lispro 100 Unit/ml Solution (Insulin lispro) ..... Inject 44 unit three times a day Kaela Ybarra Cardiology: H er updated medication list for this problem includes: Ezetimibe 10 Mg Tablet (Ezetimibe) ..... Take 1 tablet once a day Atorvastatin 80 Mg Tablet (Atorvastatin) ..... Take 1 tablet by mouth once a day Kaela Ybarra Cardiology:Will repe at echo H er updated medication list for this problem includes: Lisinopril 20 Mg Tablet (Lisinopril) ..... 1 tablet once a day Hydrochlorothiazide 12.5 Mg Capsule (Hydrochlorothiazide) ..... Take 1 tablet by mouth once a day Kaela Ybarra Cardiology:We will obtain echo a nd Arterial duplex. A Kaela Ybarra Cardiology: B P today: 108/62 P rior BP: 127/63 (09/07/2019) Labs Reviewed: C reat: 0.97 (07/28/2019) C hol: 130 (07/28/2019) HDL: 28 (07/28/2019) Her updated medication list for this problem includes: Lisinopril 20 Mg Tablet (Lisinopril) ..... 1 tablet once a day Aspirin 81 Mg Tablet,delayed Release (dr/ec) (Aspirin) ..... Take 1 tablet by mouth once a day Hydrochlorothiazide 12.5 Mg Capsule (Hydrochlorothiazide) ..... Take 1 tablet by mouth once a day Kaela Ybarra Cardiology:. She rec ently had laproscopic knee surgery. We will obtain echo and Arterial duplex. At this time she denies any claudication. Kaela Ybarra Cardiology Florin Dixon MD Cardiology Florin Dixon MD Cardiology Florin Dixon MD Cardiology:Labs Revi ewed: H gBA1c: 8.0 (11/11/2018) Creat: 0.97 (07/28/2019) Microalbumin: 2006.7 (11/11/2018) Her updated medication list for this problem includes: Ozempic (0.25 or 0.5 Mg/dose) 2 Mg/1.5ml Subcutaneous Solution Pen-injector (Semaglutide) ..... Inject 0.25mg subcutaneously once weekly x4 weeks, then increase to 0.5mg subcutaneously weekly Aspirin Low 81mg Ec Tab (Aspirin) ..... Take 1 tablet by mouth daily Admelog 100 Unit/ml Subcutaneous Solution (Insulin lispro) ..... Inject 44 units before each meal. correct factor insulin of 1:10 if >140 mg/dl max 160 units/day Basaglar Kwikpen 100 Unit/ml Subcutaneous Solution Pen-injector (Insulin glargine) ..... Inject 32 units by subcutaneous route every 12 hours. Lisinopril 20 Mg Oral Tablet (Lisinopril) ..... One tab. daily Metformin Hcl 1000 Mg Oral Tablet (Metformin hcl) ..... Take 1 tablet by mouth twice a day with meals Eddie Tessa Cardiology:BP today: 127/63 P rior BP: 144/60 (08/06/2019) Her updated medication list for this problem includes: Lisinopril 20 Mg Oral Tablet (Lisinopril) ..... One tab. daily Hydrochlorothiazide 12.5 Mg Oral Capsule (Hydrochlorothiazide) ..... Take one tablet by mouth once daily [facility] Cardiology:Advised to quit. Ziyad rogers [facility] Cardiology:Triglycer ides in July were elevated to 248. She will get repeat fasting lipid panel with her soubrette. CHOL: 130 (07/28/2019) HDL: 28 (07/28/2019) LDL: 52 (07/28/2019) TRI (07/28/2019) Her updated medication list for this problem includes: Ezetimibe 10 Mg Oral Tablet (Ezetimibe) ..... Take one tablet daily Atorvastatin Calcium 80 Mg Oral Tablet (Atorvastatin calcium) ..... Take 1 tablet by mouth every day [facility] Cardiology:Pt's leg pain resolved. MICHAEL's and venous duplex last month were normal. [facility] Cardiology:Her updat ed medication list for this problem includes: Aspirin Low 81mg Ec Tab (Aspirin) ..... Take 1 tablet by mouth daily Admelog 100 Unit/ml Subcutaneous Solution (Insulin lispro) ..... Inject 44 units before each meal. correct factor insulin of 1:10 if >140 mg/dl max 160 units/day Basaglar Kwikpen 100 Unit/ml Subcutaneous Solution Pen-injector (Insulin glargine) ..... Inject 32 units by subcutaneous route every 12 hours. Lisinopril 20 Mg Oral Tablet (Lisinopril) ..... One tab. daily Metformin Hcl 1000 Mg Oral Tablet (Metformin hcl) ..... Take 1 tablet by mouth twice a day with meals [facility] Cardiology:CHOL: 130 (07/28/2019) HDL: 28 (07/28/2019) LDL: 52 (07/28/2019) TRI (07/28/2019) Her updated medication list for this problem includes: Ezetimibe 10 Mg Oral Tablet (Ezetimibe) ..... Take one tablet daily Atorvastatin Calcium 80 Mg Oral Tablet (Atorvastatin calcium) ..... Take 1 tablet by mouth every day [facility] Cardiology:BP today: 144/60 P rior BP: 147/83 (07/27/2019) Her updated medication list for this problem includes: Lisinopril 20 Mg Oral Tablet (Lisinopril) ..... One tab. daily Hydrochlorothiazide 12.5 Mg Oral Capsule (Hydrochlorothiazide) ..... Take one tablet by mouth once daily Eddie [facility] Cardiology:S/P laser atherectomy and NAIMA stenting of the occluded R SFA yesterday. Today, she complains of severe pain in the R leg from right below the hip to above the knee. No swelling. It is tender to palpation. No pain in the foot. Duplexes today show the SFA stent is patent, and there is no evidence of a leak or of DVT. Will treat her pain with Hydrocodone as needed. Eddie [facility] Cardiology:S/P laser atherectomy and NAIMA stenting of the occluded R SFA yesterday. Today, she complains of severe pain in the R leg from right below the hip to above the knee. No swelling. It is tender to palpation. No pain in the foot. Duplexes today show the SFA stent is patent, and there is no evidence of a leak or of DVT. Will treat her pain with Hydrocodone as needed. [facility] Cardiology:Denies chest pain or SOB. [facility] Cardiology:Her updat ed medication list for this problem includes: Aspirin Low 81mg Ec Tab (Aspirin) ..... Take 1 tablet by mouth daily Admelog 100 Unit/ml Subcutaneous Solution (Insulin lispro) ..... Inject 44 units before each meal. correct factor insulin of 1:10 if >140 mg/dl max 160 units/day Basaglar Kwikpen 100 Unit/ml Subcutaneous Solution Pen-injector (Insulin glargine) ..... Inject 32 units by subcutaneous route every 12 hours. Lisinopril 20 Mg Oral Tablet (Lisinopril) ..... One tab. daily Metformin Hcl 1000 Mg Oral Tablet (Metformin hcl) ..... Take 1 tablet by mouth twice a day with meals Eddie [facility] Cardiology:Her [facility] ed medication list for this problem includes: Ezetimibe 10 Mg Oral Tablet (Ezetimibe) ..... Take one tablet daily Atorvastatin Calcium 80 Mg Oral Tablet (Atorvastatin calcium) ..... Take 1 tablet by mouth every day Orders: L IPID PANEL (6273) [facility] Cardiology:BP today: 147/83 P rior BP: 122/58 (01/26/2019) Labs Reviewed: C reat: 0.96 (11/11/2018) Her updated medication list for this problem includes: Lisinopril 20 Mg Oral Tablet (Lisinopril) ..... One tab. daily Hydrochlorothiazide 12.5 Mg Oral Capsule (Hydrochlorothiazide) ..... Take one tablet by mouth once daily [facility] Cardiology:Pt compla ins of leg cramps. Leg pain occurs after minimal exertion. Denies rest pain or pain at night. Arterial duplex at [facility] showed occlusion of the R SFA and MICHAEL of 0.38. We will proceed to AIF. [facility] Cardiology:BP today: 122/58 P rior BP: 130/70 (11/13/2018) Her updated medication list for this problem includes: Lisinopril 20 Mg Oral Tablet (Lisinopril) ..... One tab. daily Hydrochlorothiazide 12.5 Mg Oral Capsule (Hydrochlorothiazide) ..... Take one tablet by mouth once daily [facility] Cardiology:Labs Revi ewed: H gBA1c: 8.0 (11/11/2018) Creat: 0.96 (11/11/2018) Microalbumin: 2006.7 (11/11/2018) Her updated medication list for this problem includes: Admelog 100 Unit/ml Subcutaneous Solution (Insulin lispro) ..... Inject 44 units before each meal. correct factor insulin of 1:10 if >140 mg/dl max 160 units/day Basaglar Kwikpen 100 Unit/ml Subcutaneous Solution Pen-injector (Insulin glargine) ..... Inject 32 units by subcutaneous route every 12 hours. Lisinopril 20 Mg Oral Tablet (Lisinopril) ..... One tab. daily Metformin Hcl 1000 Mg Oral Tablet (Metformin hcl) ..... Take 1 tablet by mouth twice a day with meals [facility] Cardiology:We will a dd Zetia 10mg daily (LDL was 105 on Lipitor 80mg daily). CHOL: 179 (11/11/2018) LDL: 105 (11/11/2018) HDL: 28 (11/11/2018) T (11/11/2018) Her updated medication list for this problem includes: Ezetimibe 10 Mg Oral Tablet (Ezetimibe) ..... Take one tablet daily Atorvastatin Calcium 80 Mg Oral Tablet (Atorvastatin calcium) ..... Take 1 tablet by mouth every day Eddie [facility] Cardiology:She would like to lose weight and wants to try Buproprion/Naltrexone. [facility] Cardiology:We advised her to sto p smoking. [facility] Cardiology:S/P succe ssful stenting of the R SFA. Her claudication has improved. Her leg pain now is symmetrical and mainly in the thighs. It is most likely musculokeletal due to a herniated disc. Eddie [facility] [place] Cardiology Lynn Rodrigues MD Cardiology Lynn Rodrigues MD Cardiology Lynn Rodrigues MD Cardiology:AIF showe d worse disease on the right and symptoms are worse on the right. Schedule intervention with Dr. Dixon. Lynn Rodrigues MD Cardiology Lynn Rodrigues MD Cardiology:Orders: B ASIC METABOLIC PANEL W/EGFR (69898) H EMOGLOBIN A1c (496) U RINALYSIS, RANDOM, MICROALB/CREATININE (6517) Her updated medication list for this problem includes: Admelog 100 Unit/ml Subcutaneous Solution (Insulin lispro) ..... Inject 44 units before each meal. correct factor insulin of 1:10 if >140 mg/dl max 160 units/day Basaglar Kwikpen 100 Unit/ml Subcutaneous Solution Pen-injector (Insulin glargine) ..... Inject 32 units by subcutaneous route every 12 hours. Lisinopril 10 Mg Oral Tablet (Lisinopril) ..... Take 1 tablet by mouth every day Metformin Hcl 1000 Mg Oral Tablet (Metformin hcl) ..... Take 1 tablet by mouth twice a day with meals [facility] Cardiology:No signif icant stenosis on the carotid duplex. [facility] Cardiology:Her updat ed medication list for this problem includes: Atorvastatin Calcium 80 Mg Oral Tablet (Atorvastatin calcium) ..... Take 1 tablet by mouth every day Orders: L IPID PANEL (3990) [facility] Cardiology:BP today: 140/70 P rior BP: 140/70 (08/04/2018) Her updated medication list for this problem includes: Lisinopril 10 Mg Oral Tablet (Lisinopril) ..... Take 1 tablet by mouth every day Hydrochlorothiazide 12.5 Mg Oral Capsule (Hydrochlorothiazide) ..... Take one tablet by mouth once daily [facility] Cardiology:Orders: A rterial Duplex Bi-Lower EX (CPT-98088) [facility] Cardiology:08/2018 You davis Myoview Summary: 1 . Abnormal myocardial scintigraphy demonstrating distal anterior and distal anteroseptal wall ischemia. 2 . Normal left ventricular size and function with a calculated ejection fraction of 71%. 3 . Normal Freddy protocol exercise tolerance test. 4 . Hypertensive blood pressure response to exercise. Orders: C ardiac Cath - Left - GC (CPT-65074) [facility] Cardiology:08/2018 E cho Conclusions: 1 . Hyperdynamic left ventricular function. Resting left ventricular outflow tract gradient 3 mmHg. Left Ventricular outflow tract gradient with Valsalva 7 mmHg. Normal left ventricular size. Mild septal hypertrophy with out outflow tract obstruction. There is E to A wave reversal consistent with impaired LV relaxation. Normal E/E` 6.8. Left ventricular ejection fraction is estimated at 70 %. 2 . No significant valvular abnormalities. [facility] Cardiology:Her [facility] ed medication list for this problem includes: Admelog 100 Unit/ml Subcutaneous Solution (Insulin lispro) ..... Inject 44 units before each meal. correct factor insulin of 1:10 if >140 mg/dl max 160 units/day Basaglar Kwikpen 100 Unit/ml Subcutaneous Solution Pen-injector (Insulin glargine) ..... Inject 32 units by subcutaneous route every 12 hours. Lisinopril 10 Mg Oral Tablet (Lisinopril) ..... Take 1 tablet by mouth every day Metformin Hcl 1000 Mg Oral Tablet (Metformin hcl) ..... Take 1 tablet by mouth twice a day with meals Eddie Reddyberg Cardiology:Her updat ed medication list for this problem includes: Atorvastatin Calcium 80 Mg Oral Tablet (Atorvastatin calcium) ..... Take 1 tablet by mouth every day Eddie [facility] Cardiology:BP today: 140/70 Her updated medication list for this problem includes: Lisinopril 10 Mg Oral Tablet (Lisinopril) ..... Take 1 tablet by mouth every day Hydrochlorothiazide 12.5 Mg Oral Capsule (Hydrochlorothiazide) ..... Take one tablet by mouth once daily [facility] Cardiology:Orders: C arotid Duplex Bilateral ([id number]) Eddie [facility] Cardiology:She is aw are that she has a cardiac murmur for about 20 years. In view of that she was sent for evaluation. She denies chest pain and SOB. Orders: C omplete Echo ([id number]) S tress Exercise Cardiolite (CPT-[id number]) Eddie [facility] Date Name Arterial Duplex Bi-L ower EX LIPID PANEL Lipoprotein (a) CRP, high sensitivit y Complete Echo Arterial Duplex Bi-L ower EX Venous Doppler Bilat eral LE Complete Echo Venous Doppler Unila teral RLE Arterial Duplex RLE COVID19 nasal swab ( LC) COVID19 nasal swab ( LC) PROTHROMBIN TIME WIT H INR LIPID PANEL CBC (INCLUDES DIFF/P LT) BASIC METABOLIC PANE L W/EGFR Arterial Duplex Bi-L ower EX Peripheral Stent - G C URINALYSIS, RANDOM, MICROALB/CREATININE HEMOGLOBIN A1c PROTHROMBIN TIME WIT H INR LIPID PANEL CBC (INCLUDES DIFF/P LT) BASIC METABOLIC PANE L W/EGFR Cardiac Cath - Left - GC Arterial Duplex Bi-L ower EX Carotid Duplex Bilat eral Stress Exercise Card iolite Complete Echo HISTORY OF PROCEDURES Procedure Date Procedure Name Provider Procedure Notes S tatus Complex e/m visit ad d on Florin Dixon MD completed EKG Florin Dixon MD completed EKG Florin Dixon MD completed EKG Florin Dixon MD completed EKG Florin Dixon MD completed Stress EKG Lynn Rodrigues MD completed Cardiolite, 2 units Carlo Tomas MD completed SPECT Images Carlo Tomas MD completed EKG Florin Dixon MD completed
--- OUTSIDE RECORDS SUMMARY | 2024-03-03 15:32 | XMS_ITS | Encounter Summary ---
Author Organization [facility] Healthcare Address [address] [place] [address] Care Team Providers Care Library Assistant Name Role Phone Eron Holliday NP Primary Care Provider [phone] Marialuisa Daniel NP Unavailable [phone] Leobardo Bhagat MD Unavailable [phone] Florin Dixon MD Unavailable Reason for Visit * Reason Comments PT Treatment Encounter Details Date Type Department Care Team (Late st Contact Info) Description 12/23/2023 10:00 AM CDT Therapy [facility] Medical Office Bldg 1 OP Physical Therapy [address] [place] [address] Nora Tapia, GENEVIEVE Aftercare following right knee joint replacement surgery (Primary Dx) Social History Tobacco Use Types [...] materials from doctor or pharmacy Never 10/22/2023 [facility] Utilities Answer Date Recorded In the [...] often do you attend chur ch or baptism services? Never 10/07/2023 Do you belong to any clubs o r organizations such as cheondoism groups, unions, fraternal or athletic groups, or [...] any time in the past 12 m [facility], were you homeless or living in a fdc (including now)? No 10/07/2023 Personal Safety Answer Date Recorded Have you ever been in or are you currently in a harmful physical or emotional relationship or is someone making you feel afraid or unsafe? 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 ICD-10-CM 1. Aftercare following right knee joint replacement surgery Z47.1 Z96.651 PT Diagnosis/Impairment List: R TKR 10/06/23 Precautions: None Relevant Comorbidities: DM, Kidney issues Short-Term Goals:to be met by 11/19/23 Patient will be instructed in HEP - MET PROM: 0 - 110 degrees - MET Patient will be able to walk with a cane safely community distances- MET Long-Term Goals: to be met by 01/15/24 Patient will be independent in HEP (new and revised). - MET Patient AROM 0 -120 degrees for normal transfers Patient will report 75% improvement of R knee function with ADLs, standing at work Patient Goal: Restore R knee mobility PT Eval Date: 10/23/23 Orders : 01/15/24 INITIAL CERTIFICATION DATES: From 10/23/23 to 01/15/2024 (12 weeks) Date date Date Date Date Date Date 11/24/23 12/02/23 12/05/23 12/09/23 12/11/2322/24 10/29/24 Visit Number 9 10 11 12 13 14 15 ADDITIONAL HEP SHEETS ISSUED NuStep Side Stepping // bars 2# 4x15' 2# 4x15' 2# 4x15 Mini Squats 20 x20 x20 Foam x15 Foam x15 Foam x15 Foam x15 Heel Raises 20 x20 x20 Off step x15 Off step x15 Off step x15 Off step x15 SLS R 3x10 3x15 1x15 2x on foam 3x15 foam 3x15 foam Forward Lunge - Mini 15 x15 x15 x15 x15 x10 Step calf stretch 3x 3x 3x 3x 3x 3x HS stretch 3x 3x 3x 3x 3x 3x Heel SLides 15 Heel SLides with strap 15 Long sitting HS / Calf towel str. Towel calf stretch w/ heel prop B Leg Press 60# 20 60# x20 65# x15 65# x15 65# x20 70# x20 70# x20 R Leg Press 30# 20 30# x20 30# x20 35# x15 35# x15 35# x15 35# x15 HS curl Machine 30# 20 30# x20 30# x20 35# x15 35# x15 35# x15 35# x15 Knee Ext Machine 10# 20 10# x20 10# x20 15# x15 15# x15 15# x15 15# x15 Step ups/down 6 x10 ea 6 x10ea 6 x10 ea 6 x10 ea no UE 6 x10ea 6 x10 each Standing RLE TKE Gr x15 Gr x15 Gr x15 Gr x15 Blue x15 Bike 7' Seat 9 7' Seat 9 7' Seat 9 L2 6' Seat 9 L2 6' Seat 9 L2 6' Seat 9 L2 6' Hip machine abd/ext 30# ABD 15 45# EXT 15 30# abd x15 45# ext x15 NT hurts hip and back NT Progress Note/Re-Cert * Nora Tapia, LINER ROLL CHANGER - 12/23/2023 10:00 AM CDT Images from the original note were not included. clara Physical Therapy Visit/Daily Note 12/23/2023 Sandy Lopez 1965 ICD-10-CM 1. Aftercare following right knee joint replacement surgery Z47.1 Z96.651 [employer] Utilized: NO Patient is identified by name and date of on this visit. Subjective: Pt reports she still has pain with sit to stand transfers after she has been sitting for longer periods of time. Pt is reporting continued difficulty with descending stairs and standing after sitting. Pt states she descends stair with a step to pattern, not reciprocal pattern. Pain today is 03/05. Pt reports no changes since last visit. Objective: Objective Measurement/Observation: Verbal cues for knee alignment with squats and steps. Increased shakiness in B LE with exercises due to fatigue. R Knee AROM Ext 1 Flex 122 Specific exercises and treatment interventions are outlined on exercise worksheet document. Treatment Performed on This Visit: Manual Therapy (body part and techniques): PROM R LE Therapeutic Procedure/Exercise: strengthening and stretching R LE Modalities: none HEP given: none Patient education:continue with HEP Assessment: The patient demonstrated a good response to today's treatment as evidenced by these objective findings: added resistance with no increase in pain. The patient is making expected progress toward LTG'sas evidenced by changes in progression in strength and ROM. The patient continues to demonstrate deficits with strength and ROM. Plan: Patient would benefit from the following modification on next visit: continue with current POC. Recommend continued therapy to focus on strengthening and stretching R knee. Nora Tapia PTA [facility] ATTENTION PHYSICIAN If you are unable to electronically sign this document, please print this document and sign below to certify this plan of care/treatment plan. By signing this document, I certify that I have reviewedthis plan of care and support the treatment. Please fax back to . Thank you. Provider Signature: Date: documented in this encounter Plan of Treatment Not on file documented as of this encounter Visit Diagnoses Diagnosis Aftercare following right knee joint replacement surgery- Primary documented in this encounter Care Teams Library Assistant Relationship Specialty Start Date End Date Eron Holliday NP [address] [place] [address] PCP - General Pain Management 07/15/22 Marialuisa Daniel NP [address] [place] [address] [place] [address] Nurse Practitioner Endocrinology Diabetes & Metabolism 09/22/23 Leobardo Bhagat MD [address] [place] [address] Consulting Physician Nephrology 09/22/23 [place] [id number] [address] Consulting Physician Cardiovascular Disease 09/22/23 documented as of this encounter
--- OUTSIDE RECORDS SUMMARY | 2024-03-03 15:32 | XMS_ITS | Encounter Summary ---
Author Organization [facility] Healthcare Address [address] [place] [address] Care Team Providers Care Net Applications Developer Name Role Phone Eron Holliday NP Primary Care Provider [phone] Marialuisa Daniel NP Unavailable [phone] Leobardo Bhagat MD Unavailable [phone] Florin Dixon MD Unavailable Reason for Visit * Reason Comments PT Treatment * Physical Therapy (Routine) - Authorized Specialty Diagnoses / Procedures Referred By Claudette smith Referred To Contact Physical Therapy Diagnoses Aftercare following right knee joint replacement surgery Yoan Edwards PA [facility] [facility] [address] THAKUR [address] [place] [address] Phone: tel: fax: Regi Khan DO [address] [place] [address] DR THAKUR [address] [place] [address] Phone: tel: fax: Referral ID Status Reason Start Date Expiration Date Visits Requested Visits Authorized [id number] Authorized Specialty Services Required 10/21/2023 10/23/2024 36 18 Encounter Details Date Type Department Care Team (Late st Contact Info) Description 12/26/2023 2:[address] [facility] Medical Office Bldg 1 OP Physical Therapy [address] [place] [address] Nora Tapia, CHILDREN'S AUTHOR Aftercare following right knee joint replacement surgery [...] materials from doctor or pharmacy Never 10/22/2023 [facility] Utilities Answer Date Recorded In the [...] often do you attend chur ch or mosque services? Never 10/07/2023 Do you belong to any clubs o r organizations such as adventism groups, unions, fraternal or athletic groups, or [...] any time in the past [address] [facility], were you homeless or living in a assisted (including now)? No 10/07/2023 Personal Safety Answer Date Recorded Have you ever been in or are you currently in a harmful physical or emotional relationship or is someone making you feel afraid or unsafe? 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 Not on file Not on file Not on file documented as of this encounter Progress Notes * Nora Tapia, CHILDREN'S AUTHOR - 12/26/2023 2:15 PM CDT Images from the original note were [...] From 10/23/23 to 01/15/2024 (12 weeks) Date Date Date Date Date 12/09/23 12/11/23 12/16/23 12/23/23 12/26/23 Visit Number 12 13 14 15 16 ADDITIONAL HEP SHEETS ISSUED NuStep Side Stepping // bars 2# 4x15' 2# 4x15' 2# 4x15 Foam 6x//bars Mini Squats Foam x15 Foam x15 Foam x15 Foam x15 Foam x15 Heel Raises Off step x15 Off step x15 Off step x15 Off step x15 Off step x15 SLS R 3x15 1x15 2x on foam 3x15 foam 3x15 foam 3x15 foam Forward Lunge - Mini x15 x15 x15 x10 x10 Step calf stretch 3x 3x 3x 3x 3x HS stretch 3x 3x 3x 3x 3x B Leg Press 65# x15 65# x20 70# x20 70# x20 70# x20 R Leg Press 35# x15 35# x15 35# x15 35# x15 35# x15 HS curl Machine 35# x15 35# x15 35# x15 35# x15 35# x15 Knee Ext Machine 15# x15 15# x15 15# x15 15# x15 15# x15 Step ups/down 6 x10 ea 6 x10 ea no UE 6 x10ea 6 x10 each 6 x10ea Step up and over 5x Standing RLE TKE Gr x15 Gr x15 Gr x15 Blue x15 Blue x15 Bike Seat 9 L2 6' Seat 9 L2 6' Seat 9 L2 6' Seat 9 L2 6' Seat 9 L2 6' Hip machine abd/ext NT Progress Note/Re-Cert * Nora Tpaia, [facility] - 12/26/2023 2:15 PM CDT Images from the original note were not included. Physical Therapy Visit/Daily Note 12/26/2023 Sandy Lopez 1965 ICD-10-CM 1. Aftercare following right knee joint replacement surgery Z47.1 Z96.651 [employer] Utilized: NO Patient is identified by name and date of on this visit. Subjective: Pt reports the knee feels about the same since last visit. Pt is reporting continued difficulty with descending stairs and standing after prolonged sitting. Pain today is 0/10 currently and 2-3/10 with sit to stand transfer after prolonged sitting. Pt reports no changes since last visit. Objective: Objective Measurement/Observation: Step up and over with reciprocal pattern with no difficulty. Added sidestepping on foam to improve stability. R Knee AROM PROM Ext 1 Flex 122 124 Specific exercises and treatment interventions are outlined on exercise worksheet document. Treatment Performed on This Visit: Manual Therapy (body part and techniques): PROM R LE Therapeutic Procedure/Exercise: strengthening and stretching R LE Modalities: none HEP given: none Patient education:continue with HEP Assessment: The patient demonstrated a good response to today's treatment as evidenced by these objective findings: added step up and over with no increased difficulty. The patient is making expected progress toward LTG's as evidenced by changes in progression in strength and ROM. The patient continues to demonstrate deficits with strength and ROM. Plan: Patient would benefit from the following modification on next visit: continue with current POC. Recommend continued therapy to focus on strengthening and stretching R knee. Nora Tapia, [facility] ATTENTION PHYSICIAN If you [...] Primary documented in this encounter Care Teams Net Applications Developer Relationship Specialty Start Date End Date Eron Holliday NP [address] [place] [address] PCP - General Pain Management 07/15/22 Marialuisa Daniel NP [address] [place] [address] Nurse Practitioner Endocrinology Diabetes & Metabolism 09/22/23 Leobardo Bhagat MD [address] [place] [address] Consulting Physician Nephrology 09/22/23 [place] [id number] [address] Consulting Physician Cardiovascular Disease 09/22/23 documented as of this encounter
--- OUTSIDE RECORDS SUMMARY | 2024-03-03 15:32 | XMS_ITS | Encounter Summary ---
Author Organization [facility] Healthcare Address [address] [place] [address] Care Team Providers Care Caramel Maker Name Role Phone Eron oHlliday NP Primary Care Provider [phone] Marialuisa Daniel NP Unavailable [phone] Leobardo Bhagat MD Unavailable [phone] Florin Dixon MD Unavailable Reason for Referral * Diagnostic Imaging (Routine) - Closed Specialty Diagnoses / Procedures Referred By Claudette smith Referred To Contact Diagnoses Aftercare following right knee joint replacement surgery Procedures XR Knee Right 3 Views Yoan Edwards PA [address] [address] Phone: tel: fax: [address] [phone] Referral ID Status Reason Start Date Expiration Date Visits Re quested Visits Authorized [id number] Closed 01/01/2024 01/30/2025 1 1 ARCH WORKER ENCYCLOPEDIA Reason for Visit * Reason Comments Post-op Encounter Details Date Type Department Care Team (Late st Contact Info) Description 01/02/2024 11:30 AM RESEARCH WORKER ENCYCLOPEDIA Office Visit [facility] Orthopedics and Sports Medicine [address] [place] [phone] Yoan Edwards PA [address] [facility] [place] [address] Aftercare following right knee joint replacement surgery [...] materials from doctor or pharmacy Never 10/22/2023 [facility] Utilities Answer Date Recorded In the past 12 months has e [employer], gas, oil, or water [email or web address] threatened to shut off services in your [...] often do you attend chur ch or anabaptist services? Never 10/07/2023 Do you belong to any clubs o r organizations such as protestant groups, unions, fraternal or athletic groups, or [...] any time in the past 12 m [facility], were you homeless or living in a nursing home (including now)? No 10/07/2023 Personal Safety Answer Date Recorded Have you ever been in or are you currently in a harmful physical or emotional relationship or is someone making you feel afraid or unsafe? Denies 10/06/2023 Comments No Sex and Gender Information Value Date Recorded Sex Assigned at Not on file Legal Sex Female 8:53 AM RESEARCH WORKER ENCYCLOPEDIA Gender Identity Female 12/26/2023 10:11 PM CDT Sexual Orientation Straight 12/26/2023 10 :11 PM CDT Occupation Industry Job Start Date Job End Date [employer] Not on file Not on file Not on file documented as of this encounter Progress Notes * Yoan Edwards PA - 01/02/2024 11:30 AM CST Images from the original note were not included. Postop Visit CHIEF COMPLAINT She had concerns including Post-op of the Right Knee. HISTORY OF PRESENT ILLNESS Sandy Lopez is a 58 y.o. female who was seen today for follow up after right total knee arthroplasty performed on 10/06/2023. Patient is doing very well postoperatively and is ambulating without anyassistive devices at this time. The patient has returned to work and she notes there is some stiffness in the right knee after sitting for prolonged periods of time. There is some continued mild painabout the lateral aspect of the right knee. Otherwise pain has greatly improved in is well-controlled with [id number] Tylenol p.r.n. patient is currently taking aspirin and Plavix as she does have a stent placed in the right lower extremity. Otherwise she is doing very well and is very pleased with the surgical outcome thus far. She looks forward to traveling to [place] this weekend as her daughter is having her 1st child. MEDICATIONS She has a current medication list which includes the following prescription(s): alcohol swabs, aspirin, atorvastatin, glucose blood, blood-glucose meter, dexcom g7 sensor, dexcom g6 transmitter, buspirone, citalopram, clopidogrel, dexcom g7 sensor, ezetimibe, famotidine, fexofenadine, insulin lispro, humalog, omnipod dash pods (gen 4), insulin syringe-needle u-100, jardiance, lancets, losartan-hydrochlorothiazide, meclizine, metformin, nystatin, omnipod dash pods (gen 4), onetouch delica plus lancet, onetouch verio flex meter, pantoprazole dr, pen needle, diabetic, pen needle, diabetic, propranolol, sumatriptan, tab-a-tee, mounjaro, and zolpidem. ALLERGIES She is allergic to codeine, nsaids (non-steroidal anti-inflammatory drug), and ibuprofen. REVIEW OF SYSTEMS Constitutional: Positive for activity change Musculoskeletal: Positive for arthralgias PHYSICAL EXAM LMP (LMP Unknown) Right knee Inspection The patient has normal inspection of the right knee. Swelling: absent Surgical scar/wound: present. The surgical scar/wound is healing, well approximated and no evidenceof infection. There is no drainage present. Skin temperature: normal Alignment: neutral Palpation The patient has normal palpation of the right knee. Tenderness: absent. Patellar tracking: normal Crepitus: negative Range of motion The patient has normal range of motion of the right knee. Stability Varus stress at 0 degrees: stable Valgus stress at 0 degrees: stable Strength The patient has 5/5 strength thoughout right knee. Neurovascular The patient has normal vascular on the right side of their body. Dorsalis pedis pulse: 2+ Posterior tibial pulse: 2+ The patient has normal sensation with exceptions as noted below. Left knee The patient has normal inspection, palpation, range of motion, strength, and stabiltiy of the left knee. REVIEW OF X-RAYS/STUDIES/LABS Multiple x-rays of the right knee taken today and independently reviewed by me demonstrate total knee arthroplasty in appropriate alignment. No evidence of hardware loosening or periprosthetic fracture. No changes from previous x-rays. Assessment/Plan: 1. Aftercare following right knee joint replacement surgery (Primary) - XR Knee Right 3 Views; Future Patient is doing very well postoperatively and provides no concerns at this time. Has with the patient continue to take [id number] Tylenol as needed. She does endorse some mild numbness at the incision site and I discussed that this will likely improve the next year. I also discussed with thepatient contacting our office if she is to undergo any dental procedures as we will start her on prophylactic antibiotics. The patient may reach out and schedule an appointment if any questions or concerns arise in the meantime. I would like for the patient to return in 9 months for surveillance imaging of the right knee. Patient provides no further questions at this time. ERA Figueredo 01/02/2024 ARCH WORKER ENCYCLOPEDIA documented in this encounter Plan of Treatment Not on file documented as of this encounter Results * XR Knee Right 3 Views (01/02/2024 12:46 PM RESEARCH WORKER ENCYCLOPEDIA) Anatomical Region Laterality Modality Lower Extremities, Knee Right Computed Radiography 01/04/2024 7:55 AM RESEARCH WORKER ENCYCLOPEDIA Narrative 01/04/2024 8:03 AM RESEARCH WORKER ENCYCLOPEDIA EXAM DESCRIPTION: XR KNEE RIGHT 3 VIEWS [...] AM T: ??01/04/2024 8:03 AM Report ID: [id number] Reading Location: [id number] Procedure Note Lamont Hidalgo MD - 01/04/2024 [...] Lamont Hidalgo M.D. MF: [id number] Report ID: [id number] Reading Location: [id number] Yoan Edwards [place] IM XR PROCEDURES Final Result documented in this encounter Visit Diagnoses Diagnosis Aftercare following right knee joint replacement surgery- Primary Aftercare following right knee joint replacement surgery documented in this encounter Care Teams Caramel Maker Relationship Specialty Start Date End Date Eron Holliday NP [address] [facility] [place] [address] PCP - General Pain Management 07/15/22 Marialuisa Daniel NP [address] [facility] [place] [address] Nurse Practitioner Endocrinology Diabetes & Metabolism 09/22/23 Leobardo Bhagat MD [address] [place] [address] [address] Consulting Physician Nephrology 09/22/23 [place] [address] [address] Consulting Physician Cardiovascular Disease 09/22/23 documented as of this encounter
--- OUTSIDE RECORDS SUMMARY | 2024-03-03 15:33 | XMS_ITS | Encounter Summary ---
Author Organization [facility] Healthcare Address [address] [place] [address] Care Team Providers Care Assistant Broker Name Role Phone Eron Holliday NP Primary Care Provider [phone] Marialuisa Daniel NP Unavailable Leobardo Bhagat MD Unavailable [phone] Florin Dixon MD Unavailable Reason for Referral * Diagnostic Imaging (Routine) - Closed Specialty Diagnoses / Procedures Referred By Claudette smith Referred To Contact Diagnoses Aftercare following right knee joint replacement surgery Procedures XR Knee Right 3 View Regi Khan DO [address] [facility] [address] [place] [address] Phone: tel: fax: [address] [phone] Referral ID Status Reason Start Date Expiration Date Visits Re quested Visits Authorized [id number] Closed 11/06/2023 12/05/2024 1 1 Encounter Details Date Type Department Care Team (Late st Contact Info) Description 11/06/2023 Orders Only [facility] Medical Group Orthopedics and Sports Medicine [address] [facility] [address] [place] [phone] Regi Khan DO [facility] [facility] [place] [address] Aftercare following right knee joint replacement surgery [...] materials from doctor or pharmacy Never 10/22/2023 [facility] Utilities Answer Date Recorded In the past 12 months has th e [employer], gas, oil, or water [employer] threatened to shut off services in your [...] any clubs o r organizations such as congregation groups, unions, fraternal or athletic groups, or school groups? No 10/07/2023 How often do you attend meet ings of the clubs or organizations you belong to? Never 10/07/2023 Are you , , di vorced, , never , or living with a partner? Never 10/07/2023 AUDIT-C Answer Date Recorded Q1: How often do you have a drink containing alcohol? Monthly or less 10/06/2023 Q2: How many drinks containi ng alcohol do you have on a typical day when you are drinking? Patient does not drink Q3: How often do you have si x or more drinks on one occasion? Never 10/06/2023 Overall Financial Resource Strain (CARDIA) Answe r [...] any time in the past 12 [facility], were you homeless or living in a senior care (including now)? No 10/07/2023 Personal Safety Answer Date Recorded Have you ever been in or are you currently in a harmful physical or emotional relationship or is someone making you feel afraid or unsafe? 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 F/u post sx , still having pain ? FINDINGS: Three views submitted with comparison 10/21/2023. Redemonstrated is a right total knee arthroplasty in near anatomic alignment. ?? There are no fractures or evidence of loosening. ??Moderate-sized knee effusion is present. ??There is surrounding soft tissue swelling. IMPRESSION: Unchanged right total knee arthroplasty in near anatomic alignment. Moderate-sized right knee effusion with surrounding soft tissue swelling. THIS IS AN ELECTRONICALLY VERIFIED FINAL REPORT 11/23/2023 6:14 PM - Electronically signed by ??Lamont Hidalgo M.D. MF: [email or web address] D: ??11/23/2023 6:14 PM T: ??11/23/2023 6:14 PM Report ID: [id number] Reading Location: ??[id number] Procedure Note Lamont Hidalgo MD - 11/23/2023 EXAM DESCRIPTION: XR KNEE RIGHT 3 VIEWS REASON FOR STUDY: Pre-Surgery or Post-Surgery Health Examination F/u post sx , still having pain FINDINGS: Three views submitted with comparison 10/21/2023. Redemonstrated is a right total knee arthroplasty in near anatomicalignment. There are no fractures or evidence of loosening. Moderate-sized kneeeffusion is present. There is surrounding soft tissue swelling. IMPRESSION: Unchanged right total knee arthroplasty in near anatomic alignment. Moderate-sized right knee effusion with surrounding soft tissueswelling. THIS IS AN ELECTRONICALLY VERIFIED FINAL REPORT 11/23/2023 6:14 PM - Electronically signed by Lamont Hidalgo M.D. MF: [email or web address] Report ID: [id number] Reading Location: [id number] Ashleighchris Khan IMG XR PROCEDURES Final Result documented in this encounter Visit Diagnoses Diagnosis Aftercare following right knee joint replacement surgery- Primary Aftercare following right knee joint replacement surgery documented in this encounter Care Teams Assistant Broker Relationship Specialty Start Date End Date Eron Holliday NP [address] [place] [address] [place] [address] PCP - General Pain Management 07/15/22 Marialuisa Daniel, [address] [place] [address] Nurse Practitioner Endocrinology Diabetes & Metabolism 09/22/23 Leobardo Bhagat MD [address] [place] [address] Consulting Physician Nephrology 09/22/23 [place] [id number] [address] Consulting Physician Cardiovascular Disease 09/22/23 documented as of this encounter
--- OUTSIDE RECORDS SUMMARY | 2024-03-03 15:33 | XMS_ITS | Encounter Summary ---
Author Organization [facility] Healthcare Address [address] [place] [address] Care Team Providers Care Hand Packer Name Role Phone Eron Acevedo NP Primary Care Provider [phone] Marialuisa Daniel NP Unavailable [phone] Leobardo Bhagat MD Unavailable Florin Dixon MD Unavailable Reason for Visit * Reason Comments PT Treatment * Physical Therapy (Routine) - Authorized Specialty Diagnoses / Procedures Referred By Claudette smith Referred To Contact Physical Therapy Diagnoses Aftercare following right knee joint replacement surgery Yoan Edwards PA [address] [place] [address] [address] [place] [address] Phone: tel: fax: Regi Khan DO [address] [place] [address] [address] [place] [address] Phone: tel: fax: Referral ID Status Reason Start Date Expiration Date Visits Requested Visits Authorized [id number] Authorized Specialty Services Required 10/21/2023 10/23/2024 36 18 Encounter Details Date Type Department Care Team (Late st Contact Info) Description 11/14/2023 9:15 AM CDT Therapy [facility] Medical Office Bldg 1 OP Physical Therapy [address] [place] [address] Akilah Dennis, RACE AND SPORTS BOOK WRITER Aftercare following right knee joint replacement surgery [...] materials from doctor or pharmacy Never 10/22/2023 [facility] Utilities Answer Date Recorded In [...] often do you attend chur ch or tenriism services? Never 10/07/2023 Do you belong to any clubs o r organizations such as mormonism groups, unions, fraternal or athletic groups, or [...] were you homeless or living in a jail (including now)? No 10/07/2023 Personal Safety Answer Date Recorded Have you ever been in or are you currently in a harmful physical or emotional relationship or is someone making you feel afraid or unsafe? 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 ICD-10-CM 1. Aftercare following right knee joint replacement surgery Z47.1 Z96.651 ERON ACEVEDO PT Diagnosis/Impairment List: R TKR 10/06/23 Precautions: None Relevant Comorbidities: DM, Kidney issues Short-Term Goals:to be met by 11/19/23 Patient will be instructed in HEP PROM: 0 - 110 degrees Patient will be able to walk with a cane safely community distances Long-Term Goals: to be met by 01/15/24 Patient will be independent in HEP (new and revised). Patient AROM 0 -120 degrees for normal transfers Patient will report 75% improvement of R knee function with ADLs, standing at work Patient Goal: Restore R knee mobility PT Eval Date: 10/23/23 Orders : 01/15/24 INITIAL CERTIFICATION DATES: From 10/23/23 to 01/15/2024 (12 weeks) Date Date Date Date Date Date Date 10/23/23 10/29/23 10/31/23 11/03/23 11/07/23 11/11/23 11/14/23 Visit Number 1 2 3 4 5 6 7 ADDITIONAL HEP SHEETS ISSUED Gait Training SPC 100' NuStep 8' lvl 1 Seat #6 L1 Seat 5 x1' Seat 6 x 5' L4 6' L4 6' D/C Side Stepping // bars 5x 4x 4x 4x Mini Squats 10 10x x15 x20 x20 20 x Heel Raises 15 15x x15 x20 x20 15 x 15 x Forward Lunge - Mini 15 15x x15 x15 x15 15 x 15 x Step calf stretch 3 x 20 sec 3x 20 sec Heel SLides 15 Done x20 Heel SLides with strap 15 X10/5 5 x 10 5 x 10 10 x Long sitting HS / Calf towel str. 5x / 10 Step 3x Step 3 x 30 3 x 30 step 3 x 20 sec Towel calf stretch w/ heel prop 3x / 20 Step 3x Step 3 x 30 3 x 30 step QS w heel prop 15 10x SLR flex 15 Ball Sq 15 15x SAQ 15 15x B Leg Press 40# x15 40# x15 50# x 15 50# 15 x 50# 20 x R Leg Press 10# x15 10# x15 20# x 10 20# 15 x 20# 15 x Sit<>stand 10x w/BUE X10 no UE Standing RLE TKE 15x Gr x15 Gr x 15 GR x15 Gr 15 x Bike ROM 5' S= 11 Rocking S = 5 L1 x 6' full revs S=11-10, L-1, 5 min S = 11 L1 5 min Hip machine abd/ext 30# 15 x abd/ext Progress Note/Re-Cert * Akilah Dennis PTA - 11/14/2023 9:15 AM CDT Images from the original note were not included. Physical Therapy Visit/Daily Note 11/14/2023 Sandy Lopez 1965 ICD-10-CM 1. Aftercare following right knee joint replacement surgery Z47.1 Z96.651 ERON ACEVEDO Classification Counselor Services Utilized: NO Patient is identified by name and date of on this visit. Subjective: Pt states she went back to work this week and has noticed some swelling. Pt is reporting continued difficulty with standing and going up stairs. Pain today is 3/10. Changes since last visit include Slight improvement. Objective: Objective Measurement/Observation: Pt ambulates with slight decreased wt bearing on right. Supine AAROM flexion 115 deg . PROM knee ext 0 deg Pt tolerates all exercises with good range and technique noted; no adverse effects. Pt displays swelling at knee. Specific exercises and treatment interventions are outlined on exercise worksheet document. Treatment Performed on This Visit: Manual Therapy (body part and techniques): PROM. Therapeutic Procedure/Exercise: See Exercise Sheet. Modalities: None. HEP given: Reviewed HEP. Patient education: To do exercises as tolerated. Assessment: The patient demonstrated a good response to today's treatment as evidenced by these objective findings: completion of ex's. The patient is making unexpected progress toward LTG # 2 as evidenced by changes in progression of exercises.The patient continues to demonstrate deficits with standing and stairs. Plan: Patient would benefit from the following modification on next visit: Continue to work on exercises and stretching to progress towards LTG . Recommend continued therapy to focus on strengthening of right knee and increase range.. Akilah Dennis PTA [facility] Services ATTENTION PHYSICIAN If you are unable [...] Primary documented in this encounter Care Teams Hand Packer Relationship Specialty Start Date End Date Eron Acevedo NP [address] [place] [address] PCP - General Pain Management 07/15/22 Marialuisa Daniel NP [address] [place] [address] Nurse Practitioner Endocrinology Diabetes & Metabolism 09/22/23 Leobardo Bhagat MD [address] [place] [address] Consulting Physician Nephrology 09/22/23 [place] [address] [address] Consulting Physician Cardiovascular Disease 09/22/23 documented as of this encounter
--- OUTSIDE RECORDS SUMMARY | 2024-03-03 15:33 | XMS_ITS | Encounter Summary ---
Author Organization [facility] Healthcare Address [address] [place] [address] Care Team Providers Care Door Repairman Name Role Phone Eron Holliday NP Primary Care Provider [phone] Marialuisa Daniel NP Unavailable [phone] Leobardo Bhagat MD Unavailable Florin Dixon MD Unavailable Reason for Visit * Reason Comments Post-op RTKA 10/06/23 Encounter Details Date Type Department Care Team (Late st Contact Info) Description 11/20/2023 2:45 PM CDT Office Visit [facility] Medical Group Orthopedics and Sports Medicine [address] [place] [phone] Regi Khan DO [address] [facility] [address] [address] Aftercare following right knee joint replacement surgery [...] materials from doctor or pharmacy Never 10/22/2023 [facility] Utilities Answer Date Recorded In the past [...] often do you attend chur ch or advent services? Never 10/07/2023 Do you belong to any clubs o r organizations such as latter day groups, unions, fraternal or athletic groups, or [...] any time in the past 12 m onths, were you homeless or living in a usp (including now)? No 10/07/2023 Personal Safety Answer Date Recorded Have you ever been in or are you currently in a harmful physical or emotional relationship or is someone making you feel afraid or unsafe? 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 Postop Visit CHIEF COMPLAINT She had concerns including Post-op of the Right Knee (RTKA 10/06/23). HISTORY OF PRESENT ILLNESS Sandy Lopez is a 58 y.o. female who was seen today for follow up after right total knee arthroplasty performed on 10/06/2023. Patient is doing very well currently and has no pain at rest and 3/10 pain with activity. She has been working with physical therapy and ambulating without any assistive devices and is not taking any pain medications currently. MEDICATIONS She has a current medication list [...] PHYSICAL EXAM LMP (LMP Unknown) Right knee exam: Well-healed midline incision with no erythema or drainage. Patient has-3-120 degrees range of motion with 5/5 strength in the knee. She has stable varus valgus stress testing intact sensation in all toes. She does have some mild numbness about the lateral aspect of the incision site. REVIEW OF X-RAYS/STUDIES/LABS Multiple x-rays of the right knee performed today and independently interpreted by me shows maintained alignment of a cementless total knee arthroplasty with a cemented patellar component with no lucencies surrounding the hardware. Assessment/Plan: 1. Aftercare following right knee joint replacement surgery I discussed with the patient that she was doing very well postoperatively. She is working with physical therapy to maximize her range of motion and I discussed that she continue to work on full extension. She has plans to go to her daughter's baby shower in [place] in [place] in a week. She may utilize Tylenol as needed for pain relief and I would like see her back in 6 weeks with repeat x-rays with ERA Khan DO 11/20/2023 documented in this encounter Plan of Treatment Not on file documented as of this encounter Visit Diagnoses Diagnosis Aftercare following right knee joint replacement surgery- Primary documented in this encounter Discontinued Medications Medication Sig Discontinue Reason Start Date End Da te amoxicillin 500 mg capsule TAKE 1 CAPSULE BY MOUTH EVERY 8 HOURS Therapy completed 11/06/2023 11/20/2023 busPIRone (BUSPAR) 5 mg tablet Take 1 tablet (5 mg total) by mouth 2 (two) times a day Therapy completed 12/17/2021 11/20/2023 cholecalciferol 25 mcg (1,000 unit) tablet Therapy completed 10/18/2022 11/20/2023 docusate sodium (COLACE) 100 mg capsuleIndications:consti pation Take 1 capsule (100 mg total) by mouth 2 (two) times a day Therapy completed 10/07/2023 11/20/2023 docusate sodium (COLACE) 100 mg capsuleIndications:consti pation Take 1 capsule (100 mg total) by mouth 2 (two) times a day Therapy completed 10/07/2023 11/20/2023 ergocalciferol, vitamin D2, 50 mcg (2,000 unit) capsule Take 2,000 Units by mouth daily Therapy completed 11/20/2023 ondansetron ODT (ZOFRAN-ODT) 4 mg disintegrating tabletIndications:Prevent ion of Post-Operative Nausea and Vomiting Take 1 tablet (4 mg total) by mouth every 8 (eight) hours as needed for nausea or vomiting Therapy completed 10/07/2023 11/20/2023 ondansetron ODT (ZOFRAN-ODT) 4 mg disintegrating tabletIndications:Prevent ion of Post-Operative Nausea and Vomiting Take 1 tablet (4 mg total) by mouth every 8 (eight) hours as needed for nausea or vomiting Therapy completed 10/07/2023 11/20/2023 oxyCODONE (ROXICODONE) 5 mg immediate release tabletIndications:Pain Take 1 tablet (5 mg total) by mouth every 8 (eight) hours as needed for pain Therapy completed 10/07/2023 11/20/2023 oxyCODONE (ROXICODONE) 5 mg immediate release tabletIndications:Pain Take 1 tablet (5 mg total) by mouth every 8 (eight) hours as needed for pain Therapy completed 10/07/2023 11/20/2023 documented as of this encounter Historical Medications * This list may reflect changes made after this encounter. Medication Sig Dispense Quantity Refills Last Filled Start D ate End Date OneTouch Delica Plus Lancet 33 gauge misc 09/23/2023 busPIRone (BUSPAR) 7.5 mg tablet 10/17/2023 added in this encounter Care Teams Door Repairman Relationship Specialty Start Date End Date Eron Holliday NP [address] [facility] [place] [address] PCP - General Pain Management 07/15/22 Marialuisa Daniel, CHRISTOPHER [address] [facility] [place] [address] Nurse Practitioner Endocrinology Diabetes & Metabolism 09/22/23 Leobardo Bhagat MD [address] [place] [address] [address] Consulting Physician Nephrology 09/22/23 [place] [id number] [address] Consulting Physician Cardiovascular Disease 09/22/23 documented as of this encounter
--- OUTSIDE RECORDS SUMMARY | 2024-03-03 15:33 | XMS_ITS | Encounter Summary ---
Author Organization [facility] Healthcare Address [address] [place] [address] Care Team Providers Care Community Living Instructor Name Role Phone Eron Holliday NP Primary Care Provider [phone] Marialuisa Daniel NP Unavailable [phone] Leobardo Bhagat MD Unavailable [phone] Florin Dixon MD Unavailable Reason for Visit * Reason Comments PT Treatment * Physical Therapy (Routine) - Authorized Specialty Diagnoses / Procedures Referred By Claudette smith Referred To Contact Physical Therapy Diagnoses Aftercare following right knee joint replacement surgery Yoan Edwards PA [facility] DR THAKUR [address] [place] [address] Phone: tel: fax: Regi Khan DO [address] [place] [address] DR THAKUR [address] [place] [address] Phone: tel: fax: Referral ID Status Reason Start Date Expiration Date Visits Requested Visits Authorized [id number] Authorized Specialty Services Required 10/21/2023 10/23/2024 36 18 Encounter Details Date Type Department Care Team (Late st Contact Info) Description 12/02/2023 9:15 AM CDT Therapy [facility] Medical Office Bldg 1 OP Physical Therapy [address] [place] [address] Nora Tapia, LETTUCE CUTTER Aftercare following right knee joint replacement surgery (Primary Dx); Primary osteoarthritis of right knee Social History Tobacco Use Types Packs/Day Years [...] materials from doctor or pharmacy Never 10/22/2023 [facility] Utilities Answer Date Recorded In the [...] often do you attend chur ch or samaritan services? Never 10/07/2023 Do you belong to any clubs o r organizations such as mu-ism groups, unions, fraternal or athletic groups, or [...] any time in the past 12 m [facility], were you homeless or living in a prison (including now)? No 10/07/2023 Personal Safety Answer Date Recorded Have you ever been in or are you currently in a harmful physical or emotional relationship or is someone making you feel afraid or unsafe? 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 ICD-10-CM 1. Aftercare following right knee joint replacement surgery Z47.1 Z96.651 2. Primary osteoarthritis of right knee M17.11 PT Diagnosis/Impairment List: R TKR 10/06/23 Precautions: None Relevant Comorbidities: DM, Kidney issues Short-Term Goals:to be met by 11/19/23 Patient will be instructed in HEP - MET PROM: 0 - 110 degrees Patient will [...] 01/15/2024 (12 weeks) Date Date Date Date date 11/11/23 11/14/23 11/17/23 11/24/23 12/02/23 Visit Number 6 [phone] 9 10 ADDITIONAL HEP SHEETS ISSUED NuStep Side Stepping // bars Mini Squats 20 x x20 20 x20 Heel Raises 15 x 15 x x15 20 x20 Forward Lunge - Mini 15 x 15 x x15 15 Step calf stretch 3 x 20 sec 3x 20 sec 3x 3x HS stretch 3x Heel SLides 15 Heel SLides with strap 10 x 15 Long sitting HS / Calf towel str. 3 x 20 sec Step 3x Towel calf stretch w/ heel prop B Leg Press 50# 15 x 50# 20 x 60# x20 60# 20 60# x20 R Leg Press 20# 15 x 20# 15 x 25# x15 30# 20 30# x20 HS curl Machine 30# x15 30# 20 30# x20 Knee Ext Machine 10# x10 10# 20 10# x20 Step ups/down 6 x10 ea Standing RLE TKE Gr 15 x Bike S=11-10, L-1, 5 min S = 11 L1 5 min S=11 5' 7' Seat 9 7' Hip machine abd/ext 30# 15 x abd/ext 30# x15 30# ABD 15 45# EXT 15 30# abd x15 45# ext x15 Progress Note/Re-Cert * Nora Tapia PTA - 12/02/2023 9:15 AM CDT Images from the original note were not included. Physical Therapy Visit/Daily Note 12/02/2023 Sandy Lopez 1965 ICD-10-CM 1. Aftercare following right knee joint replacement surgery Z47.1 Z96.651 2. 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 Subjective: Pt reports she has not been here for a week due to being out of town. Pt states she continued her HEP while on vacation, I went up and down 20 steps. Pt is reporting continued difficulty with stair climbing ascending and descending and standing after prolonged sitting. Going up is easier than going down. Pain today is 2/10, more discomfort. Pt reports no changes since last visit. Objective: Objective Measurement/Observation: Pt ambulates with no gait deviations. Fair eccentric quad control with step downs. R Knee AROM PROM Ext 4 0 Flex 118 121 Specific exercises and treatment interventions are outlined on exercise worksheet document. Treatment Performed on This Visit: Manual Therapy (body part and techniques): PROM R LE Therapeutic Procedure/Exercise: strengthening and stretching R LE Modalities: none HEP given: none Patient education:continue with HEP Assessment: The patient demonstrated a good response to today's treatment as evidenced by these objective findings: completion of exercises with increase in AROM. The patient is making expected progress toward LTG's as evidenced by changes in progression in gait, strength, and ROM. The patient continues to demonstrate deficits with strength and ROM. Plan: Patient would benefit from the following modification on next visit: continue with current POC. Recommend continued therapy to focus on strengthening and stretching R knee. Nora Tapia, [facility] Services ATTENTION PHYSICIAN If you are unable [...] following right knee joint replacement surgery- Primary Primary osteoarthritis of right knee documented in this encounter Care Teams Community Living Instructor Relationship Specialty Start Date End Date Eron Holliday NP [address] [place] [address] PCP - General Pain Management 07/15/22 Marialuisa Daniel NP [address] [place] [address] Nurse Practitioner Endocrinology Diabetes & Metabolism 09/22/23 Leobardo Bhagat MD [address] [place] [address] [address] Consulting Physician Nephrology 09/22/23 [place] [id number] [address] Consulting Physician Cardiovascular Disease 09/22/23 documented as of this encounter
--- OUTSIDE RECORDS SUMMARY | 2024-03-03 15:33 | XMS_ITS | Encounter Summary ---
Author Organization [facility] Healthcare Address [address] [place] [address] Care Team Providers Care Consignee Name Role Phone Андрей Acevedo NP Primary Care Provider [phone] Marialuisa Daniel NP Unavailable [phone] Leobardo Bhagat MD Unavailable [phone] Florin Dixon MD Unavailable Reason for Visit * Reason Comments PT Treatment * Physical Therapy (Routine) - Authorized Specialty Diagnoses / Procedures Referred By Claudette smith Referred To Contact Physical Therapy Diagnoses Aftercare following right knee joint replacement surgery Yoan Edwards PA [address] [place] [address] DR THAK[address] [place] [address] Phone: tel: fax: [facility] [address] THAKUR [address] [place] [address] Phone: tel: fax: Referral ID Status Reason Start Date Expiration Date Visits Requested Visits Authorized [id number] Authorized Specialty Services Required 10/21/2023 10/23/2024 36 18 Encounter Details Date Type Department Care Team (Late st Contact Info) Description 11/11/2023 10:[address] [facility] Medical Office Bldg 1 OP Physical Therapy [address] [place] [address] Gutierrez Phillips, DAIRY FEED MIXING OPERATOR Aftercare following right knee joint replacement surgery (Primary Dx); Primary osteoarthritis of right knee; Numbness and tingling of right upper extremity; Chronic neck pain Social History Tobacco Use Types Packs/Day Years [...] doctor or pharmacy Never 10/22/2023 [facility] Utilities Answer Date Recorded In the past 12 months has e [employer], gas, oil, or water company threatened to [...] often do you attend chur ch or buddhism services? Never 10/07/2023 Do you belong to any clubs o r organizations such as buddhism groups, unions, fraternal or athletic groups, or [...] were you homeless or living in a care home (including now)? No 10/07/2023 Personal Safety Answer Date Recorded Have you ever been in or are you currently in a harmful physical or emotional relationship or is someone making you feel afraid or unsafe? 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 ICD-10-CM 1. Aftercare following right knee joint replacement surgery Z47.1 Z96.651 2. Primary osteoarthritis of right knee M17.11 3. Numbness and tingling of right upper extremity R20.0 R20.2 4. Chronic neck pain M54.2 G89.29 АНДРЕЙ ACEVEDO PT Diagnosis/Impairment List: R TKR 10/06/23 [...] weeks) Date Date Date Date Date Date 10/23/23 10/29/23 10/31/23 11/03/23 11/07/23 11/11/23 Visit Number 1 2 3 4 5 6 ADDITIONAL HEP SHEETS ISSUED Gait Training SPC 100' NuStep 8' lvl 1 Seat #6 L1 Seat 5 x1' Seat 6 x 5' L4 6' L4 6' D/C Side Stepping // bars 5x 4x 4x 4x Mini Squats 10 10x x15 x20 x20 Heel Raises 15 15x x15 x20 x20 15 x Forward Lunge - Mini 15 15x x15 x15 x15 15 x Step calf stretch 3 x 20 sec Heel SLides 15 Done x20 [...] x15 50# x 15 50# 15 x R Leg Press 10# x15 10# x15 20# x 10 20# 15 x Sit<>stand 10x w/BUE X10 no UE Standing RLE TKE 15x Gr x15 Gr x 15 GR x15 Gr 15 x Bike ROM 5' S= 11 Rocking S = 5 L1 x 6' full revs S=11-10, L-1, 5 min Progress Note/Re-Cert * Gutierrez Phillips PTA - 11/11/2023 10:00 AM CDT Images from the original note were not included. Physical Therapy Visit/Daily Note 11/11/2023 Sandy Lopez 1965 ICD-10-CM 1. Aftercare following right knee joint replacement surgery Z47.1 Z96.651 2. Primary osteoarthritis of right knee M17.11 3. Numbness and tingling of right upper extremity R20.0 R20.2 4. Chronic neck pain M54.2 G89.29 АНДРЕЙ ACEVEDO Research [employer] Director Services Utilized: NO Patient is identified by name and date of on this visit. Subjective: Pt states right knee hurts some. Pt is reporting continued difficulty with stairs. Pain today is 3/10. Changes since last visit include Some gradual improvement. Objective: Objective Measurement/Observation: Patient attaining 1-117 deg of right knee flexion. Pt tolerates all exercises with functional range and technique noted; no adverse effects. Pt displays some right knee favoring. Specific exercises and treatment interventions are outlined on exercise worksheet document. Treatment Performed on This Visit: Manual Therapy (body part and techniques): PROM right knee. Therapeutic Procedure/Exercise: See exercise sheet. Modalities: None. HEP given: None. Patient education: Cueing given during exercise completion as needed.. Assessment: The patient demonstrated a good response to today's treatment as evidenced by these objective findings: increased flexion of right knee. The patient is making expected progress toward STG # 2 as evidenced by changes in improved rightb knee ROM and mobility.The patient continues to demonstrate deficits with right knee strength and ROM. Plan: Patient would benefit from the following modification on next visit: Continue with current POC and progress as needed. Recommend continued therapy to focus on strengthening of right knee. and continued therapy to focus on improved mobility of right knee.. Gutierrez Phillips PTA [facility] ATTENTION PHYSICIAN If you are unable to [...] surgery- Primary Primary osteoarthritis of right knee Numbness and tingling of right upper extremity Chronic neck pain Cervicalgia documented in this encounter Care Teams Consignee Relationship Specialty Start Date End Date Андрей Acevedo NP [address] [place] [address] PCP - General Pain Management 07/15/22 Marialuisa Daniel NP [address] [place] [address] Nurse Practitioner Endocrinology Diabetes & Metabolism 09/22/23 Leobardo Bhagat MD [address] [place] [address] Consulting Physician Nephrology 09/22/23 [place] [id number] [address] Consulting Physician Cardiovascular Disease 09/22/23 documented as of this encounter
--- OUTSIDE RECORDS SUMMARY | 2024-03-03 15:33 | XMS_ITS | Encounter Summary ---
Author Organization [facility] Healthcare Address [address] [place] [address] Care Team Providers Care Oyster Washer Name Role Phone Eron Holliday NP Primary Care Provider [phone] Marialuisa Daniel NP Unavailable [phone] Leobardo Bhagat MD Unavailable Florin Dixon MD Unavailable Reason for Visit * Auth/Cert (Routine) Specialty Diagnoses / Procedures Referred By Claudette t Referred To Contact Referral ID Status Reason Start Date Expiration Date Visits Re quested Visits Authorized [id number] 1 2 Encounter Details Date Type Department Care Team (Late st Contact Info) Description 10/24/2023 Home Care Visit [facility] [place] [address] [address] [place] [id number] Eduarda Bowles, RN TELEPHONE ENCOUNTER Social History Tobacco Use Types Packs/Day Years [...] from doctor or pharmacy Never 10/22/2023 [facility] Utilities Answer Date Recorded In the [...] any clubs o r organizations such as synagogue groups, unions, fraternal or athletic groups, or [...] were you homeless or living in a fpc (including now)? No 10/07/2023 Personal Safety Answer Date Recorded Have you ever been in or are you currently in a harmful physical or emotional relationship or is someone making you feel afraid or unsafe? 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 Not on file Not on file Not on file documented as of this encounter Plan of Treatment Not on file documented as of this encounter Visit Diagnoses Not on filedocumented in this encounter Care Teams Oyster Washer Relationship Specialty Start Date End Date Eron Holliday NP [address] [place] [address] PCP - General Pain Management 07/15/22 Marialuisa Daniel NP [address] [place] [address] Nurse Practitioner Endocrinology Diabetes & Metabolism 09/22/23 Leobardo Bhagat MD [address] [place] [address] [address] Consulting Physician Nephrology 09/22/23 [place] [id number] [address] Consulting Physician Cardiovascular Disease 09/22/23 documented as of this encounter
--- OUTSIDE RECORDS SUMMARY | 2024-03-03 15:33 | XMS_ITS | Encounter Summary ---
Author Organization [facility] Healthcare Address [address] [place] [address] Care Team Providers Care Honing Machine Set Up Operator Name Role Phone Eron Holliday NP Primary Care Provider [phone] Marialuisa Daniel NP Unavailable [phone] Leobardo Bhagat MD Unavailable [phone] Florin Dixon MD Unavailable Reason for Visit * Reason Onset Date Comments Return to Work 11/05/2023 Encounter Details Date Type Department Care Team (Late st Contact Info) Description 11/05/2023 Documentation [facility] Medical Group Orthopedics and Sports Medicine [address] [place] [phone] Regi Khan DO [address] [facility] [address] THAKUR [address] [place] [address] Return to Work Social History Tobacco Use Types Packs/Day Years [...] materials from doctor or pharmacy Never 10/22/2023 [facility] Utilities Answer Date Recorded In the [...] often do you attend chur ch or scientologist services? Never 10/07/2023 Do you belong to any clubs o r organizations such as denominational groups, unions, fraternal or athletic groups, or [...] any time in the past 12 m [facility], were you homeless or living in a residential (including now)? No 10/07/2023 Personal Safety Answer Date Recorded Have you ever been in or are you currently in a harmful physical or emotional relationship or is someone making you feel afraid or unsafe? 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 INSTRUCTOR Gender Identity Female 12/26/2023 10:11 PM CDT Sexual Orientation Straight 12/26/2023 10 :11 PM CDT Occupation Industry Job Start Date Job End Date [employer] Not on file Not on file Not on file documented as of this encounter Progress Notes * Tessa Brasher CMA - 11/05/2023 8:15 AM CDT Pt RTW letter documented in this encounter Plan of Treatment Not on file documented as of this encounter Visit Diagnoses Not on filedocumented in this encounter Care Teams Honing Machine Set Up Operator Relationship Specialty Start Date End Date Eron Holliday NP [address] [place] [address] PCP - General Pain Management 07/15/22 Marialuisa Daniel NP [address] [place] [address] Nurse Practitioner Endocrinology Diabetes & Metabolism 09/22/23 Leobardo Bhagat MD [address] [place] [address] [address] [place] [address] Consulting Physician Nephrology 09/22/23 [place] [address] [facility] [address] [address] Consulting Physician Cardiovascular Disease 09/22/23 documented as of this encounter
--- OUTSIDE RECORDS SUMMARY | 2024-03-03 15:33 | XMS_ITS | Encounter Summary ---
Author Organization [facility] Healthcare Address [address] [place] [address] Care Team Providers Care Nutritional Services Cook Name Role Phone Eron Holliday NP Primary Care Provider [phone] Marialuisa Daniel NP Unavailable [phone] Leobardo Bhagat MD Unavailable [phone] Florin Dixon MD Unavailable Reason for Visit * Reason Comments PT Treatment * Physical Therapy (Routine) - Authorized Specialty Diagnoses / Procedures Referred By Claudette smith Referred To Contact Physical Therapy Diagnoses Aftercare following right knee joint replacement surgery Yoan Edwards PA [facility] [address] THAKUR [address] [place] [address] Phone: tel: fax: Regi Khan DO [address] [place] [address] DR THAKUR [address] [place] [address] Phone: tel: fax: Referral ID Status Reason Start Date Expiration Date Visits Requested Visits Authorized [id number] Authorized Specialty Services Required 10/21/2023 10/23/2024 36 18 Encounter Details Date Type Department Care Team (Late st Contact Info) Description 12/16/2023 9:15 AM CDT Therapy [facility] Medical Office Bldg 1 OP Physical Therapy [address] [place] [address] Nora Tapia, SPRINKLER DRIVER Aftercare following right knee joint replacement surgery [...] materials from doctor or pharmacy Never 10/22/2023 [facility] Utilities Answer Date Recorded In the [...] often do you attend chur ch or religion services? Never 10/07/2023 Do you belong to any clubs o r organizations such as orthodoxy groups, unions, fraternal or athletic groups, or [...] were you homeless or living in a longterm (including now)? No 10/07/2023 Personal Safety Answer Date Recorded Have you ever been in or are you currently in a harmful physical or emotional relationship or is someone making you feel afraid or unsafe? 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 file Not on file Not on file documented as of this encounter Progress Notes * Nora Tapia, SPRINKLER DRIVER - 12/16/2023 9:15 AM CDT Images from the original [...] weeks) Date date Date Date Date Date 11/24/23 12/02/23 12/05/23 12/09/23 12/11/23 12/16/23 Visit Number 9 10 11 12 13 14 ADDITIONAL HEP SHEETS ISSUED NuStep Side Stepping // bars 2# 4x15' 2# 4x15' Mini Squats 20 x20 x20 Foam x15 Foam x15 Foam x15 Heel Raises 20 x20 x20 Off step x15 Off step x15 Off step x15 SLS R 3x10 3x15 1x15 2x on foam 3x15 foam Forward Lunge - Mini 15 x15 x15 x15 x15 Step calf stretch 3x 3x 3x 3x 3x HS stretch 3x 3x 3x 3x 3x Heel SLides 15 Heel SLides with strap 15 Long sitting HS / Calf towel str. Towel calf stretch w/ heel prop B Leg Press 60# 20 60# x20 65# x15 65# x15 65# x20 70# x20 R Leg Press 30# 20 30# x20 30# x20 35# x15 35# x15 35# x15 HS curl Machine 30# 20 30# x20 30# x20 35# x15 35# x15 35# x15 Knee Ext Machine 10# 20 10# x20 10# x20 15# x15 15# x15 15# x15 Step ups/down 6 x10 ea 6 x10ea 6 x10 ea 6 x10 ea no UE 6 x10ea Standing RLE TKE Gr x15 Gr x15 Gr x15 Gr x15 Bike 7' Seat 9 7' Seat 9 7' Seat 9 L2 6' Seat 9 L2 6' Seat 9 L2 6' Hip machine abd/ext 30# ABD 15 45# EXT 15 30# abd x15 45# ext x15 NT hurts hip and back NT Progress Note/Re-Cert * Nora Tapia PTA - 12/16/2023 9:15 AM CDT Images from the original note were not included. Physical Therapy Visit/Daily Note 12/16/2023 Sandy Lopez 1965 ICD-10-CM 1. Aftercare following right knee joint replacement surgery Z47.1 Z96.651 Reverberatory Furnace Supervisor Services Utilized: NO Patient is identified by name and date of on this visit. Subjective: Pt reports the knee is feeling ok, she is hurting in the upper back. Pt is reporting continued difficulty with stair climbing ascending and descending and standing after sitting. Pain today is 2-3/10. Pt reports no changes since last visit. Objective: Objective Measurement/Observation: Pt performed all exercises well with no increase in pain. Steps are getting easier with no UE support, fair eccentric control with step downs. R Knee AROM Ext 2, PROM 0 Flex 122 Specific exercises and treatment interventions are outlined on exercise worksheet document. Treatment Performed on This Visit: Manual Therapy (body part and techniques): PROM R LE Therapeutic Procedure/Exercise: strengthening and stretching R LE Modalities: none HEP given: none Patient education:continue with HEP Assessment: The patient demonstrated a good response to today's treatment as evidenced by these objective findings: completion of exercises. The patient is making expected progress toward LTG's as evidenced by changes in progression in gait, strength, and ROM. The patient continues to demonstrate deficits withstrength and ROM. Plan: Patient would benefit from the following modification on next visit: continue with current POC. Recommend continued therapy to focus on strengthening and stretching R knee. Nora Tapia PTA [facility] Rehabilitation Services ATTENTION PHYSICIAN If you are [...] Primary documented in this encounter Care Teams Nutritional Services Cook Relationship Specialty Start Date End Date Eron Holliday NP [address] [place] [address] PCP - General Pain Management 07/15/22 Marialuisa Daniel NP [address] [place] [address] Nurse Practitioner Endocrinology Diabetes & Metabolism 09/22/23 Leobardo Bhagat MD [address] [place] [address] Consulting Physician Nephrology 09/22/23 [place] [id number] [address] Consulting Physician Cardiovascular Disease 09/22/23 documented as of this encounter
--- OUTSIDE RECORDS SUMMARY | 2024-03-03 15:33 | XMS_ITS | Encounter Summary ---
Author Organization [facility] Healthcare Address [address] [place] [address] Care Team Providers Care System Programmer Name Role Phone Eron Holliday NP Primary Care Provider [phone] Marialuisa Daniel NP Unavailable [phone] Leobardo Bhagat MD Unavailable [phone] Florin Dixon MD Unavailable Encounter Details Date Type Department Care Team (Late st Contact Info) Description 11/24/2023 11:45 AM CDT Lab [facility] Lab [address] [place] [address] Type 2 diabetes mellitus with hyperglycemia, with long-term current use of insulin (HCC) Social History Tobacco Use Types Packs/Day [...] materials from doctor or pharmacy Never 10/22/2023 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 I reviewed your recent labs. Your lipid levels and thyroid levels are within normal range. Me know if you have any questions or concerns. Thanks Marialuisa Daniel NP documented in this encounter Plan of Treatment Not on file documented as of this encounter Procedures Procedure Name Priority Date/Time Associated Diagnosis Comments THYROID FUNCTION CASCADE Routine 11/24/2023 11:56 AM CDT Type 2 diabetes mellitus with hyperglycemia, with long-term current use of insulin (HCC) ALBUMIN CREATININE RATIO, URINE Routine 11/24/2023 11:56 AM CDT Type 2 diabetes mellitus with hyperglycemia, with long-term current use of insulin (HCC) LIPID PANEL Routine 11/24/2023 11:56 AM CDT Type 2 diabetes mellitus with hyperglycemia, with long-term current use of insulin (HCC) documented in this encounter Results * Thyroid Function Scott (11/24/2023 11:56 AM CDT) Pathologist [facility] [place] TSH 0.97 0.30 - 4.20 mcIUnit/mL Comment:Testing performed by : [address] [address] Blood 11/24/2023 11:5 6 AM CDT 11/24/2023 12:17 PM CDT us Marialuisa Daniel NP LAB BLOOD ORDERABLES Final Resu lt OLIVIA CUNNINGHAM [address] [facility] Department [place] [address] * (ABNORMAL) Lipid panel (11/24/2023 11:56 AM CDT) Pathologist [facility] [place] Cholesterol 117 30 - 199 mg/dL Comment: [...] last revised on 2017. Testing performed by: [facility], [address] [place] [address]., [address] Triglycerides 146 <=149 mg/dL OLIVIA CUNNINGHAM Comment: [...] last revised on 2017. Testing performed by: [address] [address] HDL 38(L) >=40 mg/dL OLIVIA Comment: Interpretive [...] last revised on 2017. Testing performed by: [address] [address] LDL, calculated 54 <=129 mg/dL OLIVIA Comment: [...] NCEP Expert Panel. Circulation 2004;110:227 3. Hira Forrest et al. VLADIMIR Cardiol. 2020 June 24;5(5):540-548. doi: 10.1001/jamacardio.2020.0013 Current Interpretive Data was last revised on 2023. Testing performed by: [address] [address] Non-HDL Cholesterol 79 mg/dL OLIVIA CUNNINGHAM Comment: Interpretive Data Ages [...] last revised on 2017. Testing performed by: [address] [address] Chol/HDL ratio 3 OLIVIA Comment:Testing performed by : [address] [address] Blood 11/24/2023 11:5 6 AM CDT 11/24/2023 12:17 PM CDT Narrative OLIVIA CUNNINGHAM - 11/24/2023 1:25 PM CDT These lab test should be done fasting. This means do not eat or drink for at least 12 hours prior to getting your blood drawn. Has the patient been fasting for 8 hours or more?->Yes us Marialuisa Daniel OSTEOPATHIC MEDICINE TEACHER LAB BLOOD ORDERABLES Final Resu lt Performing Organization Address [facility] Co de Phone Number OLIVIA [facility] [place] [address] * (ABNORMAL) Albumin Creatinine Ratio, Urine (11/24/2023 11:56 AM CDT) Albumin Ur 199.5 mg/L Comment: Interpretive Data No reference range established. Current interpretive data was last revised 2018. Testing performed by: [address] [address] Creatinine Ur 107.0 mg/dL OLIVIA Comment: Interpretive Data No reference range established. Current interpretive data was last revised 2018. Testing performed by: [address] [address] Albumin Creatinine Ratio, Ur 186(H) 1 - 29 mg/g OLIVIA Comment:Testing performed by : [address] [address] Urine 11/24/2023 11:5 6 AM CDT 11/24/2023 5:06 PM CDT us Marialuisa Daniel OSTEOPATHIC MEDICINE TEACHER LAB URINE ORDERABLES Final Resu lt Performing Organization Address [facility] Co de Phone Number OLIVIA [facility] [place] [address] documented in this encounter Visit Diagnoses Diagnosis Type 2 diabetes mellitus with hyperglycemia, with long-term current use of insulin (HCC) documented in this encounter Care Teams System Programmer Relationship Specialty Start Date End Date Eron Holliday NP [address] [place] [address] PCP - General Pain Management 07/15/22 Marialuisa Daniel NP [address] [place] [address] Nurse Practitioner Endocrinology Diabetes & Metabolism 09/22/23 Leobardo Bhagat MD [address] [place] [address] Consulting Physician Nephrology 09/22/23 [place] [id number] [address] Consulting Physician Cardiovascular Disease 09/22/23 documented as of this encounter
--- OUTSIDE RECORDS SUMMARY | 2024-03-03 15:33 | XMS_ITS | Encounter Summary ---
Author Organization [facility] Healthcare Address [address] [place] [address] Care Team Providers Care Corporate Real Estate Manager Name Role Phone Eron Holliday NP Primary Care Provider [phone] Marialuisa Daniel NP Unavailable [phone] Leobardo Bhagat MD Unavailable [phone] Florin Dixon MD Unavailable Reason for Visit * Reason Comments PT Treatment * Physical Therapy (Routine) - Authorized Specialty Diagnoses / Procedures Referred By Claudette smith Referred To Contact Physical Therapy Diagnoses Aftercare following right knee joint replacement surgery Yoan Edwards PA [address] [place] [address] [address] TH[address] [place] [address] Phone: tel: fax: [facility] [address] THAKUR [address] [place] [address] Phone: tel: fax: Referral ID Status Reason Start Date Expiration Date Visits Requested Visits Authorized [id number] Authorized Specialty Services Required 10/21/2023 10/23/2024 36 18 Encounter Details Date Type Department Care Team (Late st Contact Info) Description 12/09/2023 10:00 AM CDT Therapy [facility] Medical Office Bldg 1 OP Physical Therapy [address] [place] [address] Nora Tapia, TILT WALL SUPERVISOR Aftercare following right knee joint replacement surgery [...] materials from doctor or pharmacy Never 10/22/2023 [facility] Utilities Answer Date Recorded In [...] often do you attend chur ch or christian services? 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 Not on file Not on file Not on file documented as of this encounter Progress Notes * Nora Tapia, TILT WALL SUPERVISOR - 12/09/2023 10:00 AM CDT Images from the original [...] (12 weeks) Date Date Date Date date Date Date 11/11/23 11/14/23 11/17/23 11/24/23 12/02/23 12/05/23 12/09/23 Visit Number 6 7 8 9 10 11 12 ADDITIONAL HEP SHEETS ISSUED NuStep Side Stepping // bars Mini Squats 20 x x20 20 x20 x20 Foam x15 Heel Raises 15 x 15 x x15 20 x20 x20 Off step x15 SLS R 3x10 3x15 Forward Lunge - Mini 15 x 15 x x15 15 x15 x15 Step calf stretch 3 x 20 sec 3x 20 sec 3x 3x 3x 3x HS stretch 3x 3x 3x Heel SLides 15 Heel SLides with strap 10 x 15 Long sitting HS / Calf towel str. 3 x 20 sec Step 3x Towel calf stretch w/ heel prop B Leg Press 50# 15 x 50# 20 x 60# x20 60# 20 60# x20 65# x15 65# x15 R Leg Press 20# 15 x 20# 15 x 25# x15 30# 20 30# x20 30# x20 35# x15 HS curl Machine 30# x15 30# 20 30# x20 30# x20 35# x15 Knee Ext Machine 10# x10 10# 20 10# x20 10# x20 15# x15 Step ups/down 6 x10 ea 6 x10ea 6 x10 ea Standing RLE TKE Gr 15 x Gr x15 Gr x15 Bike S=11-10, L-1, 5 min S = 11 L1 5 min S=11 5' 7' Seat 9 7' Seat 9 7' Seat 9 L2 6' Hip machine abd/ext 30# 15 x abd/ext 30# x15 30# ABD 15 45# EXT 15 30# abd x15 45# ext x15 NT hurts hip and back NT Progress Note/Re-Cert * Nora Tapia PTA - 12/09/2023 10:00 AM CDT Images from the original note were not included. Physical Therapy Visit/Daily Note 12/09/2023 Sandy Lopez 1965 ICD-10-CM 1. Aftercare following right knee joint replacement surgery Z47.1 Z96.651 Raw Hide Trimmer Services Utilized: NO Patient is identified by name and date of on this visit. Subjective: Pt reports as the day goes on the pain increases. Pt states at work she goes back and forth betweensitting and standing. Pt is reporting continued difficulty with stair climbing ascending and descending and standing after prolonged sitting. Pain today is 3/10. Pt reports no changes since last visit. Objective: Objective Measurement/Observation: Pt ambulates with no gait deviations. Eccentric quad control with step downs has improved. R Knee AROM Ext 3 0 Flex 120 123 Specific exercises and treatment interventions are outlined on exercise worksheet document. Treatment Performed on This Visit: Manual Therapy (body part and techniques): PROM R LE Therapeutic Procedure/Exercise: strengthening and stretching R LE Modalities: none HEP given: hip abd/ext, and SLS Patient education:continue with HEP Assessment: The patient demonstrated a good response to today's treatment as evidenced by these objective findings: increase in AROM. The patient is making expected progress toward LTG's as evidenced by changes in progression in gait, strength, and ROM. The patient continues to demonstrate deficits with strength and ROM. Plan: Patient would benefit from the following modification on next visit: continue with current POC. Recommend continued therapy to focus on strengthening and stretching R knee. Nora Tapia PTA [facility] Rehabilitation Services ATTENTION PHYSICIAN If you are [...] Primary documented in this encounter Care Teams Corporate Real Estate Manager Relationship Specialty Start Date End Date Eron Holliday NP [address] [place] [address] PCP - General Pain Management 07/15/22 Marialuisa Daniel NP [address] [place] [address] Nurse Practitioner Endocrinology Diabetes & Metabolism 09/22/23 Leobardo Bhagat MD [address] [place] [address] Consulting Physician Nephrology 09/22/23 [place] [id number] [address] Consulting Physician Cardiovascular Disease 09/22/23 documented as of this encounter
--- OUTSIDE RECORDS SUMMARY | 2024-03-03 15:33 | XMS_ITS | Encounter Summary ---
Author Organization [facility] Healthcare Address [address] [place] [address] Care Team Providers Care Paper Making Machine Operator Name Role Phone Eron Holliday NP Primary Care Provider [phone] Marialuisa Daniel NP Unavailable [phone] Leobardo Bhagat MD Unavailable [phone] Florin Dixon MD Unavailable Reason for Visit * Reason Comments PT Treatment PT Progress Note * Physical Therapy (Routine) - Authorized Specialty Diagnoses / Procedures Referred By Claudette smith Referred To Contact Physical Therapy Diagnoses Aftercare following right knee joint replacement surgery Yoan Edwards PA [address] [place] [address] DR THAKUR [address] [place] [address] Phone: tel: fax: Regi Khan DO [address] [place] [address] DR THAKUR [address] [place] [address] Phone: tel: fax: Referral ID Status Reason Start Date Expiration Date Visits Requested Visits Authorized [id number] Authorized Specialty Services Required 10/21/2023 10/23/2024 36 18 Encounter Details Date Type Department Care Team (Late st Contact Info) Description 11/24/2023 11:00 AM CDT Therapy [facility] Medical Office Bldg 1 OP Physical Therapy [address] [place] [address] Jesse Pride, PT Aftercare following right knee joint replacement surgery [...] materials from doctor or pharmacy Never 10/22/2023 [facility] Utilities Answer Date Recorded In the [...] often do you attend chur ch or baptist services? Never 10/07/2023 Do you belong to any clubs o r organizations such as hoahaoism groups, unions, fraternal or athletic groups, or [...] you homeless or living in a senior living (including now)? No 10/07/2023 Personal Safety Answer Date Recorded Have you ever been in or are you currently in a harmful physical or emotional relationship or is someone making you feel afraid or unsafe? 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 ICD-10-CM 1. Aftercare following right knee joint replacement surgery Z47.1 Z96.651 2. Primary osteoarthritis of right knee M17.11 YOAN EDWARDS PT Diagnosis/Impairment List: R TKR 10/06/23 Precautions: [...] 01/15/2024 (12 weeks) Date Date Date Date 11/11/23 11/14/23 11/17/23 11/24/23 Visit Number [phone] ADDITIONAL HEP SHEETS ISSUED NuStep Side Stepping // bars Mini Squats 20 x x20 20 Heel Raises 15 x 15 x x15 20 Forward Lunge - Mini 15 x 15 x x15 15 Step calf stretch 3 x 20 sec 3x 20 sec 3x Heel SLides 15 Heel SLides with strap 10 x 15 Long sitting HS / Calf towel str. 3 x 20 sec Step 3x Towel calf stretch w/ heel prop B Leg Press 50# 15 x 50# 20 x 60# x20 60# 20 R Leg Press 20# 15 x 20# 15 x 25# x15 30# 20 HS curl Machine 30# x15 30# 20 Knee Ext Machine 10# x10 10# 20 Standing RLE TKE Gr 15 x Bike S=11-10, L-1, 5 min S = 11 L1 5 min S=11 5' 7' Hip machine abd/ext 30# 15 x abd/ext 30# x15 30# ABD 15 45# EXT 15 Progress Note/Re-Cert * Jesse Pride PT - 11/24/2023 11:00 AM CDT Images from the original note were not included. Physical Therapy Evaluation Progress Summary 11/24/2023 Sandy Lopez 1965 58 y.o. female YOAN EDWARDS ICD-10-CM 1. Aftercare following right knee joint replacement surgery Z47.1 Z96.651 2. Primary osteoarthritis of right knee M17.11 Past Medical History: Diagnosis Date Anxiety Arthritis Arthropathy of cervical facet joint DDD (degenerative disc disease), cervical Depression Diabetes ([facility]) Dizziness Foraminal stenosis of cervical region GERD (gastroesophageal reflux disease) H/O insulin dependent diabetes mellitus High blood pressure Hyperlipidemia Insulin pump in place omnipod dash Obesity PAD (peripheral artery disease) ([facility]) with stent placed on right side Second hand smoke exposure Stomach ulcer Type 1 diabetes mellitus ([facility]) 08/04/2018 Uncontrolled type 2 diabetes mellitus with hyperglycemia ([facility]) 03/14/2017 Uncontrolled type 2 diabetes mellitus with hyperglycemia, with long-term current use of insulin ([facility]) 04/03/2017 Uses self-applied continuous glucose monitoring device Wears partial dentures Past Surgical History: Procedure Laterality Date CARPAL TUNNEL RELEASE SECTION ELBOW SURGERY ESOPHAGOGASTRODUODENOSCOPY 2023 showed some erosion KNEE ARTHROSCOPY TONSILLECTOMY Compositor Apprentice Services Utilized: NO Patient is identified by name and date of on this visit. Visits: 9 Subjective: History of Present Condition Surgical Patient: YES. Date of surgery: 10/06/23 R TKR Date of Onset: 8 years ago Description of Onset: Injured R knee 8 years ago and had R knee menisectomy. Slipped on ice and re-injured the R knee, had surgery again to clean up cartilage. R knee OA for many years, decided to have R TKR. Prior Diagnostic Tests and Results: X-rays - R knee OA Medication: Oxycodone. Other Treatment for this Diagnosis: PT for R knee after each prior surgery, Home Health x 1 visit after TKR. Has cold water machine at home. Symptoms 10/23/23: Pt reports loss of R knee mobility, R knee swelling, gait deviations. Not working. Has been resting and using her ice machine. 11/24/23: Still has some R knee soreness. pleased with progress. Current pain ratin/10 At worst pain ratin/10 Function Current Functional Deficits: Walking with no A.D.. Mild difficulty with ADLs, transfers, squatting ,climbing. Functional Status (just prior to the onset of the treating condition requiring therapy): Walked normal. Climbed stairs SOS normal. 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 Hobbies: Dining out, Mandaeism Equipment Used: WW Lives in: 1 story, basement Support at Home: Dad Objective: Observations: No A.D> Bruising resolved at lower leg. 17 cm incision. Active Range of Motion R R L Knee flexion 75 deg. 102 deg 130 deg. Knee Extension -15 deg. -7 deg +1 deg. R knee PROM: -5 - 115 degrees Strength R L Hip flexion 4 /5 5 /5 Hip extension 5/ 5 5 /5 Hip abduction 4 /5 4 /5 Knee flexion 4+ /5 5 /5 Knee Extension 4 /5 5 /5 Ankle dorsiflexion 4+ /5 5 /5 Ankle plantarflexion 4 /5 4+ /5 Circumferential Measures R L Suprapatellar pole 41 40 Knee joint line 39.5 38 Mid Calf 38 38 Gait Assessment: Mild antalgic R stance, No A.D. Transfers: Mod Indep Sit to stand. TU LEFS: (EVAL). (11/24/23) Treatment Performed on This Visit: Manual Therapy: R knee PROM Therapeutic Procedure/Exercise: Knee ROM, strengthening Modalities: NA HEP given: Handout Patient education: PT progress. Current stage of rehab Assessment: The patient has attended skilled physical therapy services for R knee mobility, and for return to prior level of function. The patient presents over 6 weeks s/p R TKR. Her PROM and AROM have improved. She is walking nearly normal with no AD. Impairments include loss of R knee ROM, mild swelling, weakness, gait deviations. Tx emphasis on reducing symptoms and improving on identified impairments toimprove function related to walking, transfers, squatting. All STGs being met. PT Diagnosis/Impairment List: R TKR 10/06/23 Precautions: None Relevant Comorbidities: DM, Kidney issues Short-Term Goals: to be met by 11/19/23 Patient will be instructed in HEP MET PROM: 0 - 110 degrees PROGRESS Patient will be able to walk with a cane safely community distances MET Long-Term Goals: to be met by 01/15/24 Patient will be independent in HEP (new and revised). MET Patient AROM 0 -120 degrees for normal transfers Patient will report 75% improvement of R knee function with ADLs, standing at work Patient Goal: Restore R knee mobility PT Eval Date: 10/23/23 Orders : 01/15/24 Tx Summary: 10/23/23 - 11/24/23 Plan: Patient will continue skilled physical therapy services 2 times per week for 4-6 weeks under the current POC. Treatment may include: therapeutic exercise, manual therapy, gait/transfer training, neuromuscular re-education, modalities as needed, functional activities, patient education, and home exercise program. Jesse Pride, ADA [facility] ATTENTION PHYSICIAN If you [...] knee documented in this encounter Care Teams Paper Making Machine Operator Relationship Specialty Start Date End Date Eron Holliday NP [address] [place] [address] PCP - General Pain Management 07/15/22 Marialuisa Daniel NP [address] [place] [address] Nurse Practitioner Endocrinology Diabetes & Metabolism 09/22/23 Leobardo Bhagat MD [address] [place] [address] Consulting Physician Nephrology 09/22/23 [place] [id number] [address] Consulting Physician Cardiovascular Disease 09/22/23 documented as of this encounter
--- OUTSIDE RECORDS SUMMARY | 2024-03-03 15:33 | XMS_ITS | Encounter Summary ---
Author Organization [facility] Healthcare Address [address] [place] [address] Care Team Providers Care Muffler Installer Name Role Phone Eron Acevedo NP Primary Care Provider [phone] Marialuisa Daniel NP Unavailable [phone] Leobardo Bhagat MD Unavailable [phone] Florin Dixon MD Unavailable Reason for Visit * Reason Comments PT Treatment * Physical Therapy (Routine) - Authorized Specialty Diagnoses / Procedures Referred By Claudette smith Referred To Contact Physical Therapy Diagnoses Aftercare following right knee joint replacement surgery Yoan Edwards PA [address] [place] [address] DR HTAKUR [address] [place] [address] Phone: tel: fax: [facility] DR THAKUR [address] [place] [address] Phone: tel: fax: Referral ID Status Reason Start Date Expiration Date Visits Requested Visits Authorized [id number] Authorized Specialty Services Required 10/21/2023 10/23/2024 36 18 Encounter Details Date Type Department Care Team (Late st Contact Info) Description 11/07/2023 10:00 AM CDT Therapy [facility] Medical Office Bldg 1 OP Physical Therapy [address] [place] [address] Heidi Foy, MAIN LINE STATION ENGINEER Aftercare following right knee joint replacement surgery [...] doctor or pharmacy Never 10/22/2023 [facility] Utilities Answer Date Recorded In the [...] often do you attend chur ch or bahai services? Never 10/07/2023 Do you belong to any clubs o r organizations such as yazdanism groups, unions, fraternal or athletic groups, or [...] any time in the past 12 m [facility], were you homeless or living in a detention (including now)? No 10/07/2023 Personal Safety Answer Date Recorded Have you ever been in or are you currently in a harmful physical or emotional relationship or is someone making you feel afraid or unsafe? 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 TECHNICIAN Gender Identity Female 12/26/2023 10:11 PM CDT Sexual Orientation Straight 12/26/2023 10 :11 PM CDT Occupation Industry Job Start Date Job End Date [employer] Not on file Not on file Not on file documented as of this encounter Progress Notes * Heidi Foy, MAIN LINE STATION ENGINEER - 11/07/2023 10:00 AM CDT Images from the original [...] (12 weeks) Date Date Date Date Date 10/23/23 10/29/23 10/31/23 11/03/23 11/07/23 Visit Number 1 2 3 4 5 ADDITIONAL HEP SHEETS ISSUED Gait Training SPC 100' NuStep 8' lvl 1 Seat #6 L1 Seat 5 x1' Seat 6 x 5' L4 6' L4 6' D/C Side Stepping // bars 5x 4x 4x 4x Mini Squats 10 10x x15 x20 x20 Heel Raises 15 15x x15 x20 x20 Forward Lunge - Mini 15 15x x15 x15 x15 Heel SLides 15 Done x20 Heel SLides with strap 15 X10/5 5 x 10 5 x 10 Long sitting HS / Calf towel str. 5x / 10 Step 3x Step 3 x 30 3 x 30 step Towel calf stretch w/ heel prop 3x / 20 Step 3x Step 3 x 30 3 x 30 step QS w heel prop 15 10x SLR flex 15 Ball Sq 15 15x SAQ 15 15x B Leg Press 40# x15 40# x15 50# x 15 R Leg Press 10# x15 10# x15 20# x 10 Sit<>stand 10x w/BUE X10 no UE Standing RLE TKE 15x Gr x15 Gr x 15 GR x15 Bike ROM 5' S= 11 Rocking S = 5 L1 x 6' full revs Progress Note/Re-Cert * Heidi Foy PTA - 11/07/2023 10:00 AM CDT Images from the original note were not included. Physical Therapy Visit/Daily Note 11/07/2023 Sandy Lopez 1965 ICD-10-CM 1. Aftercare following right knee joint replacement surgery Z47.1 Z96.651 ERON ACEVEDO [employer] Artistic Director Services Utilized: NO Patient is identified by name and date of on this visit. Subjective: Pt reports she will RTW next week and she's only PT so she can perform her 6 hours of work sitting at her computer. Pt states yesterday was the best she's felt since the surgery. Pt is reporting continued difficulty with stiffness following prolonged sitting. Pain today is 2-3/10 with walking and standing, 5/[address] longer than an hour. Changes since last visit include ongoing improvement of mobility without increased pain only swelling. Objective: Objective Measurement/Observation: Mobility: full revolutions achieved with recumbent bike seat 5 x 6' R Knee ROM Passive (Supine) Active (Supine) Flexion: 110 105 Extension 7 Specific exercises and treatment interventions are outlined on exercise worksheet document. Treatment Performed on This Visit: Manual Therapy (body part and techniques): PROM to R knee. Therapeutic Procedure/Exercise: Stretching and Strengthening B LE. Modalities: None. HEP given: prone knee extensions Patient education: prone knee extensions BID x 5' Assessment: The patient demonstrated a good response to today's treatment as evidenced by these objective findings: progression to recumbent bike achieving full revolutions. The patient is making expected progress meeting STG #1 and progressing toward STG # 2-3 and LTG's as evidenced by changes in linear progre ssion with post TKA to full functional ROM. The patient continues to demonstrate deficits with R knee mobility and strength. Plan: Patient would benefit from the following modification on next visit: Continue to progress as tolerated with current POC. Recommend continued therapy to focus on strengthening of R LE. and continued therapy to focus on improved mobility of R knee.. Heidi Foy, [facility] ATTENTION PHYSICIAN If you [...] Primary documented in this encounter Care Teams Muffler Installer Relationship Specialty Start Date End Date Eron Acevedo NP [address] [place] [address] PCP - General Pain Management 07/15/22 Marialuisa Daniel NP [address] [place] [address] Nurse Practitioner Endocrinology Diabetes & Metabolism 09/22/23 Leobardo Bhagat MD [address] [place] [address] [address] Consulting Physician Nephrology 09/22/23 [place] [id number] [address] Consulting Physician Cardiovascular Disease 09/22/23 documented as of this encounter
--- OUTSIDE RECORDS SUMMARY | 2024-03-03 15:33 | XMS_ITS | Encounter Summary ---
Author Organization [facility] Healthcare Address [address] [place] [address] Care Team Providers Care Supervisor Propellant Charge Loading Name Role Phone Eron Acevedo NP Primary Care Provider [phone] Marialuisa Daniel NP Unavailable [phone] Leobardo Bhagat MD Unavailable [phone] Florin Dixon MD Unavailable Reason for Visit * Reason Comments PT Treatment * Physical Therapy (Routine) - Authorized Specialty Diagnoses / Procedures Referred By Claudette smith Referred To Contact Physical Therapy Diagnoses Aftercare following right knee joint replacement surgery Yoan Edwards PA [facility] DR THAKUR [address] [place] [address] Phone: tel: fax: Regi Khan DO [address] [place] [address] DR THAKUR [address] [place] [address] Phone: tel: fax: Referral ID Status Reason Start Date Expiration Date Visits Requested Visits Authorized [id number] Authorized Specialty Services Required 10/21/2023 10/23/2024 36 18 Encounter Details Date Type Department Care Team (Late st Contact Info) Description 11/03/2023 10:45 AM CDT Therapy [facility] Medical Office Bldg 1 OP Physical Therapy [address] [place] [address] Finn Pepper, CONSULTANT LUXURY AND AUTO. VICE PRESIDENT [employer] ) Aftercare following right knee joint replacement surgery [...] from doctor or pharmacy Never 10/22/2023 [facility] Utilities Answer Date Recorded In the [...] any clubs o r organizations such as temple groups, unions, fraternal or athletic groups, or [...] any time in the past 12 m [facility], were you homeless or living in a halfway (including now)? No 10/07/2023 Personal Safety Answer Date Recorded Have you ever been in or are you currently in a harmful physical or emotional relationship or is someone making you feel afraid or unsafe? Denies 10/06/2023 Comments No Sex and Gender Information Value Date Recorded Sex Assigned at Not on file Legal Sex Female 8:53 AM TECHNOLOGY ADVISOR Gender Identity Female 12/26/2023 10:11 PM CDT Sexual Orientation Straight 12/26/2023 10 :11 PM CDT Occupation Industry Job Start Date Job End Date [employer] Not on file Not on file Not on file documented as of this encounter Progress Notes * Finn Pepper, GENEVIEVE - 11/03/2023 10:45 AM CDT Images from the original note [...] 01/15/2024 (12 weeks) Date Date Date Date 10/23/23 10/29/23 10/31/23 11/03/23 Visit Number 1 2 3 4 ADDITIONAL HEP SHEETS ISSUED Gait Training SPC 100' NuStep 8' lvl 1 Seat #6 L1 Seat 5 x1' Seat 6 x 5' L4 6' L4 6' Side Stepping // bars 5x 4x 4x Mini Squats 10 10x x15 x20 Heel Raises 15 15x x15 x20 Forward Lunge - Mini 15 15x x15 x15 Heel SLides 15 Done Heel SLides with strap 15 X10/5 5 x 10 Long sitting HS / Calf towel str. 5x / 10 Step 3x Step 3 x 30 Towel calf stretch w/ heel prop 3x / 20 Step 3x Step 3 x 30 QS w heel prop 15 10x SLR flex 15 Ball Sq 15 15x SAQ 15 15x B Leg Press 40# x15 40# x15 R Leg Press 10# x15 10# x15 ^ next visit Sit<>stand 10x w/BUE X10 no UE Standing RLE TKE 15x Gr x15 Gr x 15 Bike ROM 5' S= 11 Rocking Progress Note/Re-Cert * Finn Pepper PTA - 11/03/2023 10:45 AM CDT Images from the original note were not included. Physical Therapy Visit/Daily Note 11/03/2023 Sandy Don Jessica 1965 ICD-10-CM 1. Aftercare following right knee joint replacement surgery Z47.1 Z96.651 ERON ACEVEDO Pin Drafter Operator Services Utilized: NO Patient is identified by name and date of on this visit. Subjective: Pt reports feeling better.following last visit. Pt states her R knee continues to improve slowly and reports her pain is more manageable. Pt is reporting continued difficulty with stiffness followingprolonged sitting. Pain today is 3/10 Changes since last visit include Slight improvement. Objective: Objective Measurement/Observation: Pt ambulates with a SC with a decreased in hip and knee flexion during swing phase and antalgic in R stance. Pt unable to perform full revolutions with bike at this time. R Knee ROM Passive (Supine) Active (Supine) Flexion: 110 105 Extension 7 Pt tolerates all exercises with good range and technique noted; no adverse effects. Specific exercises and treatment interventions are outlined on exercise worksheet document. Treatment Performed on This Visit: Manual Therapy (body part and techniques): PROM to R knee. Therapeutic Procedure/Exercise: Stretching and Strengthening B LE. Modalities: None. HEP given: None. Patient education: Ongoing; continue with HEP within tolerance. Assessment: The patient demonstrated a good response to today's treatment as evidenced by these objective findings: Completion of exercises. The patient is making expected progress toward STG # 2-3 as evidenced by changes in progression of exercises.The patient continues to demonstrate deficits with R knee mobility and strength. Plan: Patient would benefit from the following modification on next visit: Continue to progress as tolerated with current POC. Recommend continued therapy to focus on strengthening of R LE. and continued therapy to focus on improved mobility of R knee.. Finn Pepper PTA [facility] Services ATTENTION PHYSICIAN If you are [...] Primary documented in this encounter Care Teams Supervisor Propellant Charge Loading Relationship Specialty Start Date End Date Eron Acevedo NP [address] [place] [address] PCP - General Pain Management 07/15/22 Marialuisa Daniel NP [address] [place] [address] Nurse Practitioner Endocrinology Diabetes & Metabolism 09/22/23 Leobardo Bhagat MD [address] [place] [address] Consulting Physician Nephrology 09/22/23 [place] [id number] [address] Consulting Physician Cardiovascular Disease 09/22/23 documented as of this encounter
--- OUTSIDE RECORDS SUMMARY | 2024-03-03 15:33 | XMS_ITS | Encounter Summary ---
Author Organization [facility] Healthcare Address [address] [place] [address] Care Team Providers Care Private Duty Lpn Name Role Phone Eron Holliday NP Primary Care Provider [phone] Marialuisa Daniel NP Unavailable [phone] Leobardo Bhagat MD Unavailable [phone] Florin Dixon MD Unavailable Reason for Referral * Diagnostic Imaging (Routine) - Closed Specialty Diagnoses / Procedures Referred By Claudette smith Referred To Contact Diagnoses Aftercare following right knee joint replacement surgery Procedures XR Knee Right 3 View Regi Khan DO [facility] [address] THAKUR [address] [place] [address] Phone: tel: fax: [address] [address] Referral ID Status Reason Start Date Expiration Date Visits Re quested Visits Authorized [id number] Closed 11/06/2023 12/05/2024 1 1 Reason for Visit * Diagnostic Imaging (Routine) - Closed Specialty Diagnoses / Procedures Referred By Claudette smith Referred To Contact Diagnoses Aftercare following right knee joint replacement surgery Procedures XR Knee Right 3 View Regi Khan DO [facility] [address] THAKUR [address] [place] [address] Phone: tel: fax: [facility] [address] [place] [address] Referral ID Status Reason Start Date Expiration Date Visits Re quested Visits Authorized [id number] Closed 11/06/2023 12/05/2024 1 1 Encounter Details Date Type Department Care Team (Latest Contact Info) Description 11/20/2023 2:25 PM CDT - 11/20/2023 11:59 PM CDT Hospital Encounter [facility] MOB 1 DIAG IMG [address] [place] [address] Aftercare following right knee joint replacement [...] doctor or pharmacy Never 10/22/2023 [facility] Utilities Answer Date Recorded In the [...] often do you attend chur ch or restorationism services? Never 10/07/2023 Do you belong to any clubs o r organizations such as sabianism groups, unions, fraternal or athletic groups, or [...] any time in the past 12 m [facility], were you homeless or living in a long term (including now)? No 10/07/2023 Personal Safety Answer Date Recorded Have you ever been in or are you currently in a harmful physical or emotional relationship or is someone making you feel afraid or unsafe? Denies 10/06/2023 Comments No Sex and Gender Information Value Date Recorded Sex Assigned at Not on file Legal Sex Female 8:53 AM LOCAL ANNOUNCER Gender Identity Female 12/26/2023 10:11 PM CDT Sexual Orientation Straight 12/26/2023 10 :11 PM CDT Occupation Industry Job Start Date Job End Date [employer] Not on file Not on file Not [...] [facility] 09/23/2023 OneTouch Verio Flex meter [facility] 09/23/[address] (PROTONIX) 40 mg EC [...] needed blood-glucose sensor (Dexcom G7 Sensor) device 11/20/202 4 Dexcom G7 Sensor device 1 Device continuously [...] VIEWS Schedule Routine, Read Routine (OP Routine) 11/20/2023 2:32 PM CDT Aftercare following right knee joint replacement surgery [...] PM T: ??11/23/2023 6:14 PM Report ID: [id number] Reading Location: [id number] Procedure Note Lamont Hidalgo MD - 11/23/2023 [...] Lamont Hidalgo M.D. MF: MARIPOSA Report ID: [id number] Reading Location: [place] [address] us Regi Khan DO IMG XR PROCEDURES Final Result documented in this encounter Visit Diagnoses Diagnosis Aftercare following right knee joint replacement surgery documented in this encounter Care Teams Private Duty Lpn Relationship Specialty Start Date End Date Eron Holliday NP [address] [facility] [place] [address] PCP - General Pain Management 07/15/22 Marialuisa Daniel NP [address] [place] [address] [place] [address] Nurse Practitioner Endocrinology Diabetes & Metabolism 09/22/23 Leobardo Bhagat MD [address] [place] [address] [address] Consulting Physician Nephrology 09/22/23 [place] [id number] [address] Consulting Physician Cardiovascular Disease 09/22/23 documented as of this encounter
--- OUTSIDE RECORDS SUMMARY | 2024-03-03 15:33 | XMS_ITS | Encounter Summary ---
Author Organization [facility] Healthcare Address [address] [place] [address] Care Team Providers Care Manager Ethics Name Role Phone Eron Holliday NP Primary Care Provider [phone] Marialuisa Daniel NP Unavailable [phone] Leobardo Bhagat MD Unavailable Florin Dixon MD Unavailable Reason for Visit * Reason Comments Diabetes Type 2 Encounter Details Date Type Department Care Team (Late st Contact Info) Description 11/10/2023 11:30 AM CDT Office Visit [facility] Diabetes Endocrine Care at [address] [place] [address] Marialuisa Daniel, PICU NURSE [address] [place] [address] [address] [place] [id number] Type 2 diabetes mellitus with hyperglycemia, with long-term current use of insulin (HCC) (Primary Dx); Hypertension associated with type 2 diabetes mellitus (HCC); Hyperlipidemia associated with type 2 diabetes mellitus (HCC); Omnipod Dash Insulin pump in place; dexcom 7 continous glucose monitor; Class 1 obesity due to excess calories with serious comorbidity and body mass index (BMI) of 33.0 to 33.9 in adult; Type 2 diabetes mellitus with microalbuminuria, with long-term current use of insulin (HCC) [...] doctor or pharmacy Never 10/22/2023 [facility] Utilities Answer Date Recorded In the past 12 months has th e [employer], gas, oil, or water company threatened to [...] often do you attend chur ch or jain services? Never 10/07/2023 Do you belong to any clubs o r organizations such as taoist groups, unions, fraternal or athletic groups, or [...] any time in the past 12 m [facility], were you homeless or living in a retirement (including now)? No 10/07/2023 Personal Safety Answer Date Recorded Have you ever been in or are you currently in a harmful physical or emotional relationship or is someone making you feel afraid or unsafe? 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 Gender Identity Female 12/26/2023 10:11 PM CDT Sexual Orientation Straight 12/26/2023 10 :11 PM CDT Occupation Industry Job Start Date Job End Date [employer] Not on file Not on file Not on file documented as of this encounter Last Filed Vital Signs Vital Sign Reading Time Taken Comments Blood Pressure 106/60 11/10/2023 11:49 AM CDT Pulse - - Temperature - - Respiratory Rate - - Oxygen Saturation - - Inhaled Oxygen Concentration - - Weight 91.9 kg (202 lb 11.2 oz) 024 11:49 AM CDT Height 165.1 cm (5' 5 ) 11/10/2023 11:4 9 AM CDT Body Mass Index 33.73 11/10/2023 11:49 AM CDT documented in this encounter Patient Instructions * Patient Instructions* Marialuisa Daniel NP - 11/10/2023 11:30 AM CDT Thanks for coming in today. I am thankful you have trusted me with your care, and hope that you received EXCELLENT care today! Please do not hesitate to call if you have any questions or concerns at [phone]. You may receive a phone call or [...] than once per week. See the Dietitian, Greeting Card Writer . Call Centralized Scheduling at [phone] to make an appointment. Exercise: Try moving [...] a source of fast-acting carbohydrate with you. documented in this encounter Progress Notes * Marialuisa Daniel NP - 11/10/2023 11:30 AM CDT Images from the original note [...] weight has decreased by 16 lbs since her last office visit. 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 She is healing well and returning to work tomorrow. She has one grand son, named Kristian. And has 2 more grandchildren on the way. She presented today to have her Omnipod PDM reprogrammed as her current PDM is malfunctioning. Today's visit is to review labs and discuss future plan. Diabetes regimen: continue Omnipod -Basal 0000-2.55, 0400-2.6, IC -6, ISF-20, Active insulin time 3hrs., TARGET GLUCOSE 110- correct above 120. Continue Metformin 1000mg twice a day. Continue Jardiance 25 mg p.o. daily. Increase mounjaro 10 mg weekly Failed Trulicity stopped [...] Labs: Lab Results Component Value Date HGBA1C 7.4 (H) 09/22/2023 HGBA1C 7.4 (H) 04/28/2023 HGBA1C 7.4 01/27/2023 HGBA1C 7.6 10/29/2022 HGBA1C 7.1 (H) 07/19/2022 HGBA1C 7.1 07/15/2022 Chemistry Lab Results Component Value Date SODIUM 140 10/07/2023 POTASSIUM 4.3 10/07/2023 CHLORIDE 105 10/07/2023 CO2 27 10/07/2023 ANIONGAP 8 10/07/2023 BUNSER 21 10/07/2023 CREATININE 1.03 10/07/2023 GLUCOSE 145 10/07/2023 CALCIUM 9.8 10/07/2023 BILITOT 0.3 09/22/2023 ALBUMIN 4.6 09/22/2023 GFRNAA 64 10/07/2023 ALKPHOS 86 09/22/2023 AST 33 09/22/2023 ALT 26 09/22/2023 PHOS 3.5 04/28/2023 Latest Reference Range & Units 04/28/23 12:24 Protein, ur, quant mg/dL 66.0 Creatinine Ur mg/dL 42.8 Protein/creatinine ratio 0.0 - 180.0 mg/g CR 1,542.1 (H) (H): Data is abnormally high Lab Results Component Value Date CHOL 115 07/19/2022 HDL 35 (L) 07/19/2022 TRIG 156 (H) 07/19/2022 LDLCALC 49 07/19/2022 Lab Results Component Value Date TSH 0.86 07/19/2022 TSH 0.96 07/13/2021 TSH 1.56 06/09/2020 Assessment/Plan Diagnoses and all orders for this visit: Type 2 diabetes mellitus with hyperglycemia, with long-term current use of insulin (HCC) (Primary) - POCT glucose - Albumin Creatinine Ratio, Urine; Future - Lipid panel; Future - Thyroid Function [facility]; Future Hypertension associated with type 2 diabetes mellitus (HCC) Assessment & Plan: This is a chronic condition which is at goal. Goal is less than 140/90 Continue losartan/hydrochlorothiazide Encouraged to monitor weight and B/P at home. Encouraged to void caffeine and excessive alcohol consumption as this will elevate B/P Hyperlipidemia associated with type 2 diabetes mellitus (HCC) Assessment & Plan: This is a chronic condition which is at goal . Goal is LDL less than 70 Continue atorvastatin, Zetia Encouraged to eat healthy, include fresh fruits and vegetables daily and avoid eating fried foods more than once per week. Omnipod Dash Insulin pump in place Assessment [...] 32 units (34%) Basal- 62 units (66%) dexcom 7 continous glucose monitor Assessment & Plan: Continuous glucose monitor (cgm) applied 10/28/23 to 11/10/23 This device was placed for monitor and treatment of blood sugar. Interpretation of data- average glucose 130, 94% time in range, 5% hyperglycemia, 1%hypoglycemia noted Class 1 obesity due to excess calories with serious comorbidity and body mass index (BMI) of 33.0 to 33.9 in adult Assessment & Plan: This is a chronic [...] minutes sessions or 3- 10 minutes sessions. Type 2 diabetes mellitus with microalbuminuria, with long-term current use of insulin ([facility]) Assessment & Plan: This is a chronic [...] Dr. Bhagat for Nephrology. Continue losartan, hydrochlorothiazide Discussed and educated on eating a healthy [...] medications. Return in about 3 months (around 02/09/2024). Marialuisa Daniel NP documented in this encounter Miscellaneous Notes * Assessment & Plan Note - Marialuisa Daniel NP - 11/10/2023 12:30 PM CDT Associated Problem(s): Class 1 obesity due to excess calories with serious comorbidity and body mass index (BMI) of 33.0 to 33.9 in adult This is a chronic condition which is [...] minutes sessions or 3- 10 minutes sessions. * Assessment & Plan Note - Marialuisa Daniel NP - 11/10/2023 12:29 PM CDT Associated Problem(s): dexcom 7 continous glucose monitor Continuous glucose monitor (cgm) applied 10/28/23 to 11/10/23 This device was placed for monitor and treatment of blood sugar. Interpretation of data- average glucose 130, 94% time in range, 5% hyperglycemia, 1%hypoglycemia noted * Assessment & Plan Note - Marialuisa Daniel NP - 11/10/2023 12:29 PM CDT Associated Problem(s): Omnipod Dash Insulin pump in place This is a chronic condition which is not at goal. Type of insulin pump-Omnipod dash insulin delivery system with DexCom 6 sensor with humalog PDM reprogrammed Basal 0000-2.55, 0400-2.6 IC -6 ISF-20 Active insulin time 3hrs. TARGET GLUCOSE 110- correct above 120 Total daily dose of insulin-93 units Bolus- 32 units (34%) Basal- 62 units (66%) * Assessment & Plan Note - Marialuisa Daniel NP - 11/10/2023 12:28 PM CDT Associated Problem(s): Hyperlipidemia associated with type 2 diabetes mellitus (HCC) This is a chronic condition which is at goal . Goal is LDL less than 70 Continue atorvastatin, Zetia Encouraged to eat healthy, include fresh fruits and vegetables daily and avoid eating fried foods more than once per week. * Assessment & Plan Note - Marialuisa Daniel NP - 11/10/2023 12:28 PM CDT Associated Problem(s): Hypertension associated with type 2 diabetes mellitus (HCC) This is a chronic condition which is at goal. Goal is less than 140/90 Continue losartan/hydrochlorothiazide Encouraged to monitor weight and B/P at home. Encouraged to void caffeine and excessive alcohol consumption as this will elevate B/P * Assessment & Plan Note - Marialuisa Daniel NP - 11/10/2023 12:27 PM CDT Associated Problem(s): Type 2 diabetes mellitus with microalbuminuria, with long-term current use of insulin (HCC) This is a chronic condition which [...] Dr. Bhagat for Nephrology. Continue losartan, hydrochlorothiazide * Addendum Note - Henrik Moser - 11/10/2023 11:30 AM CDTAddended by: HENRIK MOSER on: 11/24/2023 11:47 AM Modules accepted: Orders documented in this encounter Plan of Treatment Not on file documented as of this encounter Procedures Procedure Name Priority Date/Time Associated Diagnosis Comments POCT GLUCOSE Routine 11/10/2023 11:49 AM CDT Type 2 diabetes mellitus with hyperglycemia, with long-term current use of insulin (HCC) documented in this encounter Results * (ABNORMAL) Albumin Creatinine Ratio, Urine (11/24/2023 11:56 AM CDT) Albumin Ur 199.5 mg/L Comment: Interpretive Data No reference range established. Current interpretive data was last revised 2018. Testing performed by: [address] [address] Creatinine Ur 107.0 mg/dL OLIVIA Comment: Interpretive Data No reference range established. Current interpretive data was last revised 2018. Testing performed by: [address] [address] Albumin Creatinine Ratio, Ur 186(H) 1 - 29 mg/g OLVIIA Comment:Testing performed by : [address] [address] Urine 11/24/2023 11:5 6 AM CDT 11/24/2023 5:06 PM CDT us Marialuisa Daniel NP LAB URINE ORDERABLES Final Resu lt [facility] [address] [facility] Department [place] [address] * (ABNORMAL) Lipid panel (11/24/2023 [...] last revised on 2017. Testing performed by: [address] [address] Triglycerides 146 <=149 mg/dL OLIVIA Comment: Interpretive [...] last revised on 2017. Testing performed by: [address] [address] HDL 38(L) >=40 mg/dL OLIVIA Comment: Interpretive [...] last revised on 2017. Testing performed by: [address] [address] LDL, calculated 54 <=129 mg/dL OLIVIA Comment: [...] last revised on 2023. Testing performed by: [address] [address] Non-HDL Cholesterol 79 mg/dL OLIVIA Comment: Interpretive [...] last revised on 2017. Testing performed by: [address] [address] Chol/HDL ratio 3 [facility] Comment:Testing performed by : [address] [address] Blood 11/24/2023 11:5 6 AM CDT 11/24/2023 12:17 PM CDT Narrative OLIVIA - 11/24/2023 1:25 PM CDT These lab test should be done fasting. This means do not eat or drink for at least 12 hours prior to getting your blood drawn. Has the patient been fasting for 8 hours or more?->Yes Marialuisa Daniel NP LAB BLOOD ORDERABLES Final Resu lt Performing Organization Address [facility] de Phone Number [facility] [address] [facility] [place] [address] * Thyroid Function [facility] (11/24/2023 11:56 AM CDT) TSH 0.97 0.30 - 4.20 mcIUnit/mL Comment:Testing performed by : [address] [address] Blood 11/24/2023 11:5 6 AM CDT 11/24/2023 12:17 PM CDT Marialuisa Daniel NP LAB BLOOD ORDERABLES Final Resu lt Performing Organization Address City/[facility] Co de Phone Number [place] [address] Department [place] [address] * POCT glucose (11/10/2023 11:49 AM CDT) Glucose Blood, POC 176 mg/dL Blood 11/10/2023 11:4 9 AM CDT Marialuisa Daniel PICU NURSE POINT OF CARE TEST ORDERABLES F inal Result documented in this encounter Visit Diagnoses Diagnosis Type 2 diabetes mellitus with hyperglycemia, with long-term current use of insulin (HCC)- Primary Hypertension associated with type 2 diabetes mellitus (HCC) Hyperlipidemia associated with type 2 diabetes mellitus (HCC) Omnipod Dash Insulin pump in place Insulin pump status dexcom 7 continous glucose monitor Class 1 obesity due to excess calories with serious comorbidity and body mass index (BMI) of 33.0 to 33.9 in adult Type 2 diabetes mellitus with microalbuminuria, with long-term current use of insulin (HCC) Type 2 diabetes mellitus with hyperglycemia, with long-term current use of insulin ([facility]) documented in this encounter Historical Medications * This list may reflect changes made after this encounter. OneTouch Verio Flex meter misc 09/23/2023 amoxicillin 500 mg capsule TAKE 1 CAPSULE BY MOUTH EVERY 8 HOURS 11/06/2023 11/20/2023 added in this encounter Care Teams Manager Ethics Relationship Specialty Start Date End Date Eron Holliday NP [address] [place] [address] PCP - General Pain Management 07/15/22 Marialuisa Daniel NP [address] [place] [address] Nurse Practitioner Endocrinology Diabetes & Metabolism 09/22/23 Leobardo Bhagat MD [address] [place] [address] [address] Consulting Physician Nephrology 09/22/23 [place] [id number] [address] Consulting Physician Cardiovascular Disease 09/22/23 documented as of this encounter
--- OUTSIDE RECORDS SUMMARY | 2024-03-03 15:33 | XMS_ITS | Encounter Summary ---
Author Organization [facility] Healthcare Address [address] [place] [address] Care Team Providers Care Animal Assistant Name Role Phone Eron Holliday NP Primary Care Provider [phone] Marialuisa Daniel NP Unavailable [phone] Leobardo Bhagat MD Unavailable [phone] Florin Dixon MD Unavailable Reason for Visit * Reason Comments PT Treatment * Physical Therapy (Routine) - Authorized Specialty Diagnoses / Procedures Referred By Claudette smith Referred To Contact Physical Therapy Diagnoses Aftercare following right knee joint replacement surgery Yoan Edwards PA [facility] [facility] [address] THAKUR [address] [place] [address] Phone: tel: fax: Regi Khan DO [address] [place] [address] DR THAK[address] [place] [address] Phone: tel: fax: Referral ID Status Reason Start Date Expiration Date Visits Requested Visits Authorized [id number] Authorized Specialty Services Required 10/21/2023 10/23/2024 36 18 Encounter Details Date Type Department Care Team (Late st Contact Info) Description 12/05/2023 1:30 PM CDT Therapy [facility] Office Bldg 1 OP Physical Therapy [address] [place] [address] Nora Tapia, CLINICAL REHAB SPECIALIST Aftercare following right knee joint replacement surgery [...] materials from doctor or pharmacy Never 10/22/2023 [facility] Utilities Answer Date Recorded In [...] often do you attend chur ch or episcopalian services? 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 Not on file Not on file Not on file documented as of this encounter Progress Notes * Nora Tapia, CLINICAL REHAB SPECIALIST - 12/05/2023 1:30 PM CDT Images from the original note [...] weeks) Date Date Date Date date Date 11/11/23 11/14/23 11/17/23 11/24/23 12/02/23 12/05/23 Visit Number [phone] 10 11 ADDITIONAL HEP SHEETS ISSUED NuStep Side Stepping // bars Mini Squats 20 x x20 20 x20 x20 Heel Raises 15 x 15 x x15 20 x20 x20 SLS R 3x10 Forward Lunge - Mini 15 x 15 x x15 15 x15 Step calf stretch 3 x 20 sec 3x 20 sec 3x 3x 3x HS stretch 3x 3x Heel SLides 15 Heel SLides with strap 10 x 15 Long sitting HS / Calf towel str. 3 x 20 sec Step 3x Towel calf stretch w/ heel prop B Leg Press 50# 15 x 50# 20 x 60# x20 60# 20 60# x20 65# x15 R Leg Press 20# 15 x 20# 15 x 25# x15 30# 20 30# x20 30# x20 HS curl Machine 30# x15 30# 20 30# x20 30# x20 Knee Ext Machine 10# x10 10# 20 10# x20 10# x20 Step ups/down 6 x10 ea 6 x10ea Standing RLE TKE Gr 15 x Gr x15 Bike S=11-10, L-1, 5 min S = 11 L1 5 min S=11 5' 7' Seat 9 7' Seat 9 7' Hip machine abd/ext 30# 15 x abd/ext 30# x15 30# ABD 15 45# EXT 15 30# abd x15 45# ext x15 NT hurts hip and back Progress Note/Re-Cert * Nora Tapia, CLINICAL REHAB SPECIALIST - 12/05/2023 1:30 PM CDT Images from the original note were not included. Physical Therapy Visit/Daily Note 12/05/2023 Sandy Lopez 1965 ICD-10-CM 1. Aftercare following right knee joint replacement surgery Z47.1 Z96.651 2. 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 Subjective: Pt reports she was sore after last visit, more muscle soreness from not exercises for a week. Pt isreporting continued difficulty with stair climbing ascending and descending and standing after prolonged sitting. Pain today is 3/10. Pt states she usually has no pain first thing in the morning, as the day goes on and the more she is active the more pain. Pt reports no changes since last visit. Objective: Objective Measurement/Observation: Pt ambulates with no gait deviations. Fair eccentric quad control with step downs. R Knee AROM Ext 4 Flex 118 Specific exercises and treatment interventions are outlined [...] and stretching R knee. Nora Tapia PTA [facility] Rehabilitation Services ATTENTION PHYSICIAN If you [...] knee documented in this encounter Care Teams Animal Assistant Relationship Specialty Start Date End Date Eron Holliday NP [address] [place] [address] PCP - General Pain Management 07/15/22 Marialuisa Daniel NP [address] [place] [address] Nurse Practitioner Endocrinology Diabetes & Metabolism 09/22/23 Leobardo Bhagat MD [address] [place] [address] Consulting Physician Nephrology 09/22/23 [place] [address] [address] Consulting Physician Cardiovascular Disease 09/22/23 documented as of this encounter
--- OUTSIDE RECORDS SUMMARY | 2024-03-03 15:33 | XMS_ITS | Encounter Summary ---
Author Organization [facility] Healthcare Address [address] [place] [address] Care Team Providers Care Solar Electric Installer Name Role Phone Eron Acevedo NP Primary Care Provider [phone] Marialuisa Daniel NP Unavailable [phone] Leobardo Bhagat MD Unavailable [phone] Florin Dixon MD Unavailable Reason for Visit * Reason Comments PT Treatment * Physical Therapy (Routine) - Authorized Specialty Diagnoses / Procedures Referred By Claudette smith Referred To Contact Physical Therapy Diagnoses Aftercare following right knee joint replacement surgery Yoan Edwards PA [address] [place] [address] DR THAKUR [address] [place] [address] Phone: tel: fax: Regi Khan DO [facility] DR THAKUR [address] [place] [address] Phone: tel: fax: Referral ID Status Reason Start Date Expiration Date Visits Requested Visits Authorized [id number] Authorized Specialty Services Required 10/21/2023 10/23/2024 36 18 Encounter Details Date Type Department Care Team (Late st Contact Info) Description 11/17/2023 10:00 AM CDT Therapy [facility] Medical Office Bldg 1 OP Physical Therapy [address] [place] [address] Nora Tapia, GOLD CHARMER Aftercare following right knee joint replacement surgery [...] materials from doctor or pharmacy Never 10/22/2023 [facility] Utilities Answer Date Recorded In [...] often do you attend chur ch or jehovah's witness services? 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 Gender Identity Female 12/26/2023 10:11 PM CDT Sexual Orientation Straight 12/26/2023 10 :11 PM CDT Occupation Industry Job Start Date Job End Date [employer] Not on file Not on file Not on file documented as of this encounter Progress Notes * Nora Tapia, GOLD CHARMER - 11/17/2023 10:00 AM CDT Images from the original [...] (12 weeks) Date Date Date Date Date 11/03/23 11/07/23 11/11/23 11/14/23 11/17/23 Visit Number 4 5 6 7 8 ADDITIONAL HEP SHEETS ISSUED Gait Training NuStep L4 6' D/C Side Stepping // bars 4x Mini Squats x20 x20 20 x x20 Heel Raises x20 x20 15 x 15 x x15 Forward Lunge - Mini x15 x15 15 x 15 x x15 Step calf stretch 3 x 20 sec 3x 20 sec 3x Heel SLides x20 Heel SLides with strap 5 x 10 5 x 10 10 x Long sitting HS / Calf towel str. Step 3 x 30 3 x 30 step 3 x 20 sec Step 3x Towel calf stretch w/ heel prop Step 3 x 30 3 x 30 step B Leg Press 40# x15 50# x 15 50# 15 x 50# 20 x 60# x20 R Leg Press 10# x15 20# x 10 20# 15 x 20# 15 x 25# x15 HS curl 30# x15 Leg ext 10# x10 Sit<>stand Standing RLE TKE Gr x 15 GR x15 Gr 15 x Bike ROM 5' S= 11 Rocking S = 5 L1 x 6' full revs S=11-10, L-1, 5 min S = 11 L1 5 min S=11 5' Hip machine abd/ext 30# 15 x abd/ext 30# x15 Progress Note/Re-Cert * Nora Tapia PTA - 11/17/2023 10:00 AM CDT Images from the original note were not included. Physical Therapy Visit/Daily Note 11/17/2023 Sandy Lopez 1965 ICD-10-CM 1. Aftercare following right knee joint replacement surgery Z47.1 Z96.651 ERON ACEVEDO [employer] Customer Experience Specialist Services Utilized: NO Patient is identified by name and date of on this visit. Subjective: Pt reports she noticed an increase in swelling since she sits mainly at work. Pt is reporting continued difficulty with stair climbing and standing after prolonged sitting. Pain today is 3/10. Changes since last visit include increased swelling from sitting. Objective: Objective Measurement/Observation: Pt ambulates with a mild antalgic gait in R stance. Added HS curls and Leg extension with no increased pain. R Knee AROM PROM Ext 4 Flex 115 119 Specific exercises and treatment interventions are outlined on exercise worksheet document. Treatment Performed on This Visit: Manual Therapy (body part and techniques): PROM R LE Therapeutic Procedure/Exercise: strengthening and stretching R LE Modalities: none HEP given: none Patient education:continue with HEP, get up once an hour while at work to prevent increased swelling Assessment: The patient demonstrated a good response to today's treatment as evidenced by these objective findings: added exercises and increased resistance with no increase in pain. The patient is making expected progress toward LTG's as evidenced by changes in progression in gait, strength, and ROM. The patient continues to demonstrate deficits with strength and ROM. Plan: Patient would benefit from the following modification on next visit: continue with current POC. Recommend continued therapy to focus on strengthening and stretching R knee. Nora Tapia, [facility] ATTENTION PHYSICIAN If you are [...] Primary documented in this encounter Care Teams Solar Electric Installer Relationship Specialty Start Date End Date Eron Acevedo NP [address] [place] [address] PCP - General Pain Management 07/15/22 Marialuisa Daniel NP [address] [place] [address] [id number] Nurse Practitioner Endocrinology Diabetes & Metabolism 09/22/23 Leobardo Bhagat MD [address] [place] [address] Consulting Physician Nephrology 09/22/23 [place] [id number] [address] Consulting Physician Cardiovascular Disease 09/22/23 documented as of this encounter
--- OUTSIDE RECORDS SUMMARY | 2024-03-03 15:33 | XMS_ITS | Encounter Summary ---
Author Organization [facility] Healthcare Address [address] [place] [address] Care Team Providers Care Head Housekeeper Name Role Phone Eron Holliday NP Primary Care Provider [phone] Marialuisa Daniel NP Unavailable [phone] Leobardo Bhagat MD Unavailable [phone] Florin Dixon MD Unavailable Reason for Visit * Reason Comments PT Treatment * Physical Therapy (Routine) - Authorized Specialty Diagnoses / Procedures Referred By Claudette smith Referred To Contact Physical Therapy Diagnoses Aftercare following right knee joint replacement surgery Yoan Edwards PA [facility] DR THAKUR [address] [place] [address] Phone: tel: fax: Regi Khan DO [address] [place] [address] DR THAKUR [address] [place] [address] Phone: tel: fax: Referral ID Status Reason Start Date Expiration Date Visits Requested Visits Authorized [id number] Authorized Specialty Services Required 10/21/2023 10/23/2024 36 18 Encounter Details Date Type Department Care Team (Late st Contact Info) Description 12/11/2023 2:15 PM CDT Therapy [facility] Medical Office Bldg 1 OP Physical Therapy [address] [place] [address] Nora Tapia, TIRE BEADER MAKER Aftercare following right knee joint replacement surgery [...] often do you attend chur ch or pentecostal services? 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 Not on file Not on file Not on file documented as of this encounter Progress Notes * Nora Tapia, TIRE BEADER MAKER - 12/11/2023 2:15 PM CDT Images from the original [...] (12 weeks) Date date Date Date Date 11/24/23 12/02/23 12/05/23 12/09/23 12/11/23 Visit Number 9 10 11 12 13 ADDITIONAL HEP SHEETS ISSUED NuStep Side Stepping // bars 2# 4x15' Mini Squats 20 x20 x20 Foam x15 Foam x15 Heel Raises 20 x20 x20 Off step x15 Off step x15 SLS R 3x10 3x15 1x15 2x on foam Forward Lunge - Mini 15 x15 x15 x15 Step calf stretch 3x 3x 3x 3x HS stretch 3x 3x 3x 3x Heel SLides 15 Heel SLides with strap 15 Long sitting HS / Calf towel str. Towel calf stretch w/ heel prop B Leg Press 60# 20 60# x20 65# x15 65# x15 65# x20 R Leg Press 30# 20 30# x20 30# x20 35# x15 35# x15 HS curl Machine 30# 20 30# x20 30# x20 35# x15 35# x15 Knee Ext Machine 10# 20 10# x20 10# x20 15# x15 15# x15 Step ups/down 6 x10 ea 6 x10ea 6 x10 ea 6 x10 ea no UE Standing RLE TKE Gr x15 Gr x15 Gr x15 Bike 7' Seat 9 7' Seat 9 7' Seat 9 L2 6' Seat 9 L2 6' Hip machine abd/ext 30# ABD 15 45# EXT 15 30# abd x15 45# ext x15 NT hurts hip and back NT Progress Note/Re-Cert * Nora Tapia, TIRE BEADER MAKER - 12/11/2023 2:15 PM CDT Images from the original note were not included. Physical Therapy Visit/Daily Note 12/11/2023 Sandy Lopez 1965 ICD-10-CM 1. Aftercare following right knee joint replacement surgery Z47.1 Z96.651 Dope House Operator Helper Services Utilized: NO Patient is identified by name and date of on this visit. Subjective: Pt reports the knee is feeling about the same since last visit. Pt is reporting continued difficulty with stair climbing ascending and descending and standing after sitting. Pt states sit to stand transfers cause the most pain and are the most difficult. Pt states it doesn't matter how long she hasbeen sitting. Pain today is 2-3/10, sit to stand transfers 4/10 pain. Pt reports no changes since last visit. Objective: Objective Measurement/Observation: Pt ambulates with no gait deviations. Eccentric quad control with step downs fair control. R Knee AROM Ext 2 Flex 121 Specific exercises and treatment interventions are [...] strengthening and stretching R knee. Nora Tapia, [facility] ATTENTION PHYSICIAN If you [...] Primary documented in this encounter Care Teams Head Housekeeper Relationship Specialty Start Date End Date Eron Holliday NP [address] [place] [address] PCP - General Pain Management 07/15/22 Marialuisa Daniel NP [address] [place] [address] Nurse Practitioner Endocrinology Diabetes & Metabolism 09/22/23 Leobardo Bhagat MD [address] [place] [address] Consulting Physician Nephrology 09/22/23 [place] [id number] [address] Consulting Physician Cardiovascular Disease 09/22/23 documented as of this encounter
--- OUTSIDE RECORDS SUMMARY | 2024-03-03 15:33 | XMS_ITS | Encounter Summary ---
Author Organization [facility] Healthcare Address [address] [place] [address] Care Team Providers Care Aircraft Painter Apprentice Name Role Phone Eron Acevedo NP Primary Care Provider [phone] Marialuisa Daniel NP Unavailable [phone] Leobardo Bhagat MD Unavailable [phone] Florin Dixon MD Unavailable Reason for Visit * Reason Comments PT Treatment * Physical Therapy (Routine) - Authorized Specialty Diagnoses / Procedures Referred By Claudette smith Referred To Contact Physical Therapy Diagnoses Aftercare following right knee joint replacement surgery Yoan Edwards PA [facility] DR THAKUR [address] [place] [address] Phone: tel: fax: Regi Khan DO [address] [place] [address] DR THAKUR [address] [place] [address] Phone: tel: fax: Referral ID Status Reason Start Date Expiration Date Visits Requested Visits Authorized [id number] Authorized Specialty Services Required 10/21/2023 10/23/2024 36 18 Encounter Details Date Type Department Care Team (Late st Contact Info) Description 10/31/2023 12:45 PM CDT Therapy [facility] Medical Office Bldg 1 OP Physical Therapy [address] [place] [address] Nora Tapia, COMPRESSOR MECHANIC Aftercare following right knee joint replacement surgery [...] doctor or pharmacy Never 10/22/2023 [facility] Utilities Answer Date Recorded In [...] often do you attend chur ch or zoroastrianism services? 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 Gender Identity Female 12/26/2023 10:11 PM CDT Sexual Orientation Straight 12/26/2023 10 :11 PM CDT Occupation Industry Job Start Date Job End Date [employer] Not on file Not on file Not on file documented as of this encounter Progress Notes * Nora Tapia, COMPRESSOR MECHANIC - 10/31/2023 12:45 PM CDT Images from the original note [...] Date Date Date Date 10/23/23 10/29/23 10/31/23 Visit Number 1 2 3 ADDITIONAL HEP SHEETS ISSUED Gait Training SPC 100' NuStep 8' lvl 1 Seat #6 L1 Seat 5 x1' Seat 6 x 5' L4 6' Side Stepping // bars 5x 4x 4x Mini Squats 10 10x x15 Heel Raises 15 15x x15 Forward Lunge - Mini 15 15x x15 Heel SLides 15 Done Heel SLides with strap 15 X10/5 Long sitting HS / Calf towel str. 5x / 10 Step 3x Towel calf stretch w/ heel prop 3x / 20 Step 3x QS w heel prop 15 10x SLR flex 15 Ball Sq 15 15x SAQ 15 15x B Leg Press 40# x15 R Leg Press 10# x15 Sit<>stand 10x w/BUE X10 no UE Standing RLE TKE 15x Gr x15 Progress Note/Re-Cert * Nora Tapia PTA - 10/31/2023 12:45 PM CDT Images from the original note were not included. Physical Therapy Visit/Daily Note 10/31/2023 Sandy Lopez 1965 ICD-10-CM 1. Aftercare following right knee joint replacement surgery Z47.1 Z96.651 ERON ACEVEDO Coil Inspector Services Utilized: NO Patient is identified by name and date of on this visit. Subjective: Pt reports she drove today for the first time, it hurt a little but not bad. Pt is reporting continued difficulty with sit to stand transfers. Pain today is 4/10. Pt reports no changes since last visit. Objective: Objective Measurement/Observation: Pt ambulates with a SC with a decreased in hip and knee flexion during swing phase and antalgic in R stance. R Knee AROM PROM Ext 5 Flex 102 105 Specific exercises and treatment interventions are outlined on exercise worksheet document. Treatment Performed on This Visit: Manual Therapy (body part and techniques): PROM R knee Therapeutic Procedure/Exercise: strengthening and stretching R LE Modalities: none HEP given: none Patient education: continue with HEP Assessment: The patient demonstrated a good response to today's treatment as evidenced by these objective findings: progression of strengthening exercises and ROM. The patient is making expected progress toward STG and LTG's as evidenced by changes in progression of strength and ROM. The patient continues to demonstrate deficits with strength and ROM. Plan: Patient would benefit from the following modification on next visit: continue with current POC. Recommend continued therapy to focus on strengthening and stretching R knee to improve mobility. Nora Tapia PTA [facility] ATTENTION PHYSICIAN If you [...] Primary documented in this encounter Care Teams Aircraft Painter Apprentice Relationship Specialty Start Date End Date Eron Acevedo NP [address] [place] [address] PCP - General Pain Management 07/15/22 Marialuisa Daniel NP [address] [facility] [address] Nurse Practitioner Endocrinology Diabetes & Metabolism 09/22/23 Leobardo Bhagat MD [address] [place] [address] [address] Consulting Physician Nephrology 09/22/23 [place] [id number] [address] Consulting Physician Cardiovascular Disease 09/22/23 documented as of this encounter
--- OUTSIDE RECORDS SUMMARY | 2024-03-03 15:33 | XMS_ITS | Encounter Summary ---
Author Organization [facility] Healthcare Address [address] [place] [address] Care Team Providers Care Pharmacist Helper Name Role Phone Eron Acevedo NP Primary Care Provider [phone] Marialuisa Daniel NP Unavailable [phone] Leobardo Bhagat MD Unavailable [phone] Florin Dixon MD Unavailable Reason for Visit * Reason Comments PT Treatment * Physical Therapy (Routine) - Authorized Specialty Diagnoses / Procedures Referred By Claudette smith Referred To Contact Physical Therapy Diagnoses Aftercare following right knee joint replacement surgery Yoan Edwards PA [address] [place] [address] [address] THAK[address] [place] [address] Phone: tel: fax: Regi [facility] DR THAKUR [address] [place] [address] Phone: tel: fax: Referral ID Status Reason Start Date Expiration Date Visits Requested Visits Authorized [id number] Authorized Specialty Services Required 10/21/2023 10/23/2024 36 18 Encounter Details Date Type Department Care Team (Late st Contact Info) Description 10/29/2023 10:00 AM CDT Therapy [facility] Medical Office Bldg 1 OP Physical Therapy [address] [place] [address] Mcallen, Karly, OUTDOOR POWER EQUIPMENT MECHANIC Aftercare following right knee joint replacement [...] materials from doctor or pharmacy Never 10/22/2023 [facility] Utilities Answer Date Recorded In the [...] often do you attend chur ch or druze services? Never 10/07/2023 Do you belong to any clubs o r organizations such as restorationist groups, unions, fraternal or athletic groups, or [...] any time in the past [address] 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 Gender Identity Female 12/26/2023 10:11 PM CDT Sexual Orientation Straight 12/26/2023 10 :11 PM CDT Occupation Industry Job Start Date Job End Date [employer] Not on file Not on file Not on file documented as of this encounter Progress Notes * Karly Antunez PTA - 10/29/2023 10:00 AM CDT Images from the original [...] weeks) Date Date Date Date 10/23/23 10/29/23 Visit Number 1 2 ADDITIONAL HEP SHEETS ISSUED Gait Training SPC 100' NuStep 8' lvl 1 Seat #6 L1 Seat 5 x1' Seat 6 x 5' Side Stepping // bars 5x 4x Mini Squats 10 10x Heel Raises 15 15x Forward Lunge - Mini 15 15x Heel SLides 15 Done Heel SLides with strap 15 Long sitting HS / Calf towel str. 5x / 10 Towel calf stretch w/ heel prop 3x / 20 QS w heel prop 15 10x SLR flex 15 Ball Sq 15 15x SAQ 15 15x B Leg Press R Leg Press Sit<>stand 10x w/BUE Standing RLE TKE 15x Progress Note/Re-Cert * Karly Antunez PTA - 10/29/2023 10:00 AM CDT Images from the original note were not included. Physical Therapy Visit/Daily Note 10/29/2023 Sandy Lopez 1965 ICD-10-CM 1. Aftercare following right knee joint replacement surgery Z47.1 Z96.651 ERON ACEVEDO Proofer Prepress Services Utilized: NO Patient is identified by name and date of on this visit. Subjective: Pt reports feeling better.following last visit. Pt states she stopped taking the prescribed pain medication 4 days ago and is maintaining pain tolerance with tylenol. Pt is reporting continued difficulty with transitioning between sitting and standing without pain. Pt reports she has been walking without FWW around the house, relying on furniture for balance. Pain today is 3-4/10 Changes since last visit include Slight improvement. Objective: Objective Measurement/Observation: Gait: Pt enters treatment with FWW, demonstrates decreased R heel strike and TKE. Transfers: Pt performs sit<>stand with R ankle PF, requires increased time to place heel down; Pt tendency to pull on FWW to initiate transfer. Pt tolerates all exercises with good range and technique noted; no adverse effects. Pt performed gait training with SPC, presented 1 mild lateral LOB but was able to correct without assist. Pt was educated to continue using FWW for community ambulation; Pt educated the FWW continues to provide the most support/balance for household ambulation but was advised it is safer to use SPC around the house instead of furniture. Pt re-educated on safe hand placement with transfers if assist is required for initial force production, Pt performed transfer training with emphasis on safe hand placement andR heel weightbearing throughout transfer sequence, fair return demo. Specific exercises and treatment interventions are outlined on exercise worksheet document. Treatment Performed on This Visit: Manual Therapy (body part and techniques): None. Therapeutic Procedure/Exercise: See exercise sheet. Modalities: None. HEP given: None. Patient education: Ongoing; continue with HEP within tolerance. Assessment: The patient demonstrated a good response to today's treatment as evidenced by these objective findings: Completion of exercises. The patient is making expected progress toward LTG # 1-3 as evidenced by changes in progression of exercises.The patient continues to demonstrate deficits with L knee ROM, gait, balance. Plan: Patient would benefit from the following modification on next visit: Continue to progress as tolerated with current POC. Recommend continued therapy to focus on R knee strengthening/mobility and balance.. Karly Antunez PTA [facility] ATTENTION PHYSICIAN If you [...] Primary documented in this encounter Care Teams Pharmacist Helper Relationship Specialty Start Date End Date Eron Acevedo NP [address] [place] [address] PCP - General Pain Management 07/15/22 Marialuisa Daniel NP [address] [place] [address] Nurse Practitioner Endocrinology Diabetes & Metabolism 09/22/23 Leobardo Bhagat MD [address] [place] [address] Consulting Physician Nephrology 09/22/23 [place] [address] [address] Consulting Physician Cardiovascular Disease 09/22/23 documented as of this encounter
--- OUTSIDE RECORDS SUMMARY | 2024-03-03 15:33 | XMS_ITS | Encounter Summary ---
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 Procedures CT Cervical Spine WO Contrast Felipe Cox MD [address] [place] [address] Phone: tel: fax: [address] [phone] Referral ID Status Reason Start Date Expiration Date Visits Re quested Visits Authorized [id number] Closed 10/22/2023 11/20/2024 1 1 Reason for Visit * MRI/CAT/PET Scan (Routine) - Closed Specialty Diagnoses / Procedures Referred By Contac t Referred To Contact Radiology Diagnoses Right cervical radiculopathy Cervical stenosis of spinal canal Foraminal stenosis of cervical region 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 Arthropathy of cervical facet joint Anterolisthesis of cervical spine Procedures CT Cervical Spine WO Contrast Felipe Cox MD [address] [place] [address] Phone: tel: fax: [address] [phone] Referral ID Status Reason Start Date Expiration Date Visits Re quested Visits Authorized [id number] Closed 10/22/2023 11/20/2024 1 1 Encounter Details Date Type Department Care Team (Latest Contact Info) Description 11/19/2023 4:06 PM CDT - 11/19/2023 11:59 PM CDT Hospital Encounter [address] [address] Right cervical radiculopathy; Cervical stenosis of spinal canal; Foraminal stenosis of cervical region; 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 Not on file Not on file Not on file documented as of this encounter Medications at Time of Discharge tirzepatide (Mounjaro) 10 mg/0.5 mL pen injectorIndications :type 2 diabetes mellitus Inject 10 mg under the skin every 7 days E11.65 2 mL 11 4 alcohol swabs pads, medicated Apply 1 each topically 4 (four) times a day before meals and nightly E11.65 400 each 3 3 aspirin 81 mg enteric coated tablet Take 1 tablet (81 mg total) by mouth daily 9 atorvastatin (LIPITOR) 80 mg tablet TAKE 1 TABLET BY MOUTH DAILY 90 tablet 3 4 blood glucose diagnostic (glucose blood) strip Check blood sugar 3x times a day or as directed. E11.65 100 each 5 4 blood-glucose meter kit Use daily as directed for monitoring of blood sugar for diabetes, e11.65 1 kit 1 4 blood-glucose transmitter (Dexcom G6 Transmitter) device busPIRone (BUSPAR) 7.5 mg tablet 4 citalopram (CeleXA) 20 mg tablet Take 1.5 tablets (30 mg total) by mouth every morning 2 clopidogreL (PLAVIX) 75 mg tablet Take 1 tablet (75 mg total) by mouth daily ezetimibe (ZETIA) 10 mg tablet TAKE 1 TABLET BY MOUTH DAILY 28 tablet 2 famotidine (PEPCID) 20 mg tablet Take 1 tablet (20 mg total) by mouth 2 (two) times a day 1 fexofenadine (ADELA) 180 mg tablet Take 1 tablet (180 mg total) by mouth daily 3 insulin lispro (HumaLOG) 100 unit/mL vial for injection USE PER INSULIN PUMP MAX OF 150 UNITS DAILY NEEDED 50 mL 11 4 insulin lispro (HumaLOG) 200 unit/mL (3 mL) pen for injectionIndication s:type 2 diabetes mellitus Inject 0.08 mL (16 Units total) under the skin 3 (three) times a day before meals When insulin pump fails. E11.65 pump has failed. 15 mL 5 2 insulin pump cart,cont inf,BT (Omnipod Dash Pods, Gen 4,) cartridge CHANGE OMNIPOD POD EVERY 48 HOURS insulin syringe-needle U-100 1 mL 31 gauge x 5/16 syringe Twice a day 9 Jardiance 25 mg tablet TAKE 1 TABLET BY MOUTH DAILY 90 tablet 3 4 lancets misc 1 each by other route daily Use to monitor blood sugar daily. E11.65 100 each 3 4 losartan-hydroCHLOR Othiazide (HYZAAR) 100-12.5 mg per tablet Take 1 tablet by mouth daily 3 meclizine (ANTIVERT) 25 mg tablet Take 1 tablet (25 mg total) by mouth as needed 2 metFORMIN (GLUCOPHAGE) 1,000 mg tablet TAKE 1 TABLET BY MOUTH TWICE A DAY WITH FOOD 180 tablet 4 4 06/30/19 25 nystatin creamIndications:as needed for rash 4 Omnipod Dash Pods, Gen 4, cartridge Inject 1 Device under the skin daily E11.65 30 each 11 4 OneTouch Delica Plus Lancet 33 gauge misc 4 OneTouch Verio Flex meter [facility] [address] (PROTONIX) 40 mg EC tablet Take 1 tablet (40 mg total) by mouth daily 4 pen needle, diabetic (TRUEplus Pen Needle) 32 gauge x 5/32 needle TRUEplus Pen Needle 32 gauge x 5/32 pen needle, diabetic 32 gauge x 5/32 needle Use to inject insulin up to 4times/day. E11.65 150 each 11 2 propranoloL (INDERAL) 20 mg tablet Take 1 tablet (20 mg total) by mouth 2 (two) times a day SUMAtriptan (IMITREX) 50 mg tablet Take 1 tablet (50 mg total) by mouth once as needed Tab-A-Emily 400 mcg tabletIndications:V itamin Deficiency Prevention Take 1 tablet by mouth daily 4 zolpidem (AMBIEN) 10 mg tablet Take 1 tablet (10 mg total) by mouth nightly as needed amoxicillin 500 mg capsule TAKE 1 CAPSULE BY MOUTH EVERY 8 HOURS 4 11/20/19 24 blood-glucose sensor (Dexcom G7 Sensor) device 01/14/20 24 busPIRone (BUSPAR) 5 mg tablet Take 1 tablet (5 mg total) by mouth 2 (two) times a day 2 11/20/19 24 cholecalciferol 25 mcg (1,000 unit) tablet 3 11/20/19 24 Dexcom G7 Sensor device 1 Device continuously . Change every 10 days. E11.65 10 each 3 3 01/14/20 24 docusate sodium (COLACE) 100 mg capsuleIndications: constipation Take 1 capsule (100 mg total) by mouth 2 (two) times a day 60 capsule 4 11/20/19 24 docusate sodium (COLACE) 100 mg capsuleIndications: constipation Take 1 capsule (100 mg total) by mouth 2 (two) times a day 60 capsule 4 11/20/19 24 ergocalciferol, vitamin D2, 50 mcg (2,000 unit) capsule Take 2,000 Units by mouth daily 11/20/19 24 ondansetron ODT (ZOFRAN-ODT) 4 mg disintegrating tabletIndications:P revention of Post-Operative Nausea and Vomiting Take 1 tablet (4 mg total) by mouth every 8 (eight) hours as needed for nausea or vomiting 10 tablet 4 11/20/19 24 ondansetron ODT (ZOFRAN-ODT) 4 mg disintegrating tabletIndications:P revention of Post-Operative Nausea and Vomiting Take 1 tablet (4 mg total) by mouth every 8 (eight) hours as needed for nausea or vomiting 10 tablet 4 11/20/19 24 oxyCODONE (ROXICODONE) 5 mg immediate release tabletIndications:P ain Take 1 tablet (5 mg total) by mouth every 8 (eight) hours as needed for pain 21 tablet 4 11/20/19 24 oxyCODONE (ROXICODONE) 5 mg immediate release tabletIndications:P ain Take 1 tablet (5 mg total) by mouth every 8 (eight) hours as needed for pain 21 tablet 4 11/20/19 24 documented as of this encounter Discharge Disposition Disposition Code Departure Means Destination Discharge to home or self care documented in this encounter Plan of Treatment Not on file documented as of this encounter Procedures Procedure Name Priority Date/Time Associated Diagnosis Comments CT CERVICAL SPINE WO CONTRAST Schedule Routine, Read Routine (OP Routine) 11/19/2023 4:17 PM CDT Right cervical radiculopathy Cervical stenosis of spinal canal Foraminal stenosis of cervical region 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 CT CERVICAL SPINE WO CONTRAST REASON FOR STUDY: ?? neck pain ?? Pt c/o neck pain and states that her doctor says she needs to have surgery on her neck. ?? TECHNIQUE: Axial images through the cervical spine with sagittal and coronal reformatted images. Automated exposure control was used as a dose optimization technique for this examination. COMPARISON: ?? Cervical spine MRI dated 08/07/2023 and cervical spine radiographs dated 04/16/2023. FINDINGS: ALIGNMENT: ?? Reversal normal cervical lordosis. ??Mild anterolisthesis of C2 on C3 through C4 on C5. ??Mild retrolisthesis of C5 on C6 and C6 on C7. VERTEBRAE: ?? Multilevel endplate degenerative changes and marginal spur formation ranging up to moderate at C5-C6 and to a lesser extent at C6-C7 and remainder of the cervical levels. ??There is osseous fusion across the bilateral C2-C3 facet joints. DISCS: ?? Diffuse intervertebral disc height loss, most noticeable at C5-C6 and C6-C7, vacuum disc phenomenon at C5-C6. HARDWARE: ?? None in the spine. INDIVIDUAL LEVELS: Suboptimally evaluated by non myelographic CT technique. C2-C3: No significant disc bulge. ??There is thickened ligamentum flavum. ?? Uncovertebral spurring and facet arthropathy with mild left and no significant right osseous neural foraminal narrowing. C3-C4: Posterior disc osteophyte complex and thickened ligamentum flavum. ??No significant spinal canal stenosis. ??Uncovertebral spurring and facet arthropathy with mild left and no significant right neural foraminal narrowing. C4-C5: Posterior disc osteophyte complex and thickened ligamentum flavum. ??No significant spinal canal stenosis. ??Uncovertebral spurring and pcww-bijeetw-kowt-right facet arthropathy without significant osseous neural foraminal narrowing. C5-C6: Posterior disc osteophyte complex and thickened ligamentum flavum. ?? Zloc-hp-bewjycef spinal canal stenosis. ??Uncovertebral spurring and facet arthropathy with lmvg-ux-cfccvxow left and no significant right osseous neural foraminal narrowing. C6-C7: Posterior disc osteophyte complex and thickened ligamentum flavum. ?? Moderate spinal canal stenosis. ??Uncovertebral spurring and facet arthropathy with moderate right and ioeo-wa-zuxrbqle left neural foraminal narrowing. C7-T1: Disc bulge without significant osseous spinal canal stenosis. ??No significant osseous neural foraminal narrowing. UPPER THORACIC: ?? Incompletely imaged. No high-grade osseous spinal canal stenosis. LUNG APICES: ?? No focal pneumonic consolidation. NECK SOFT TISSUES: ?? Calcified plaque at the bilateral carotid vasculature. ?? Left thyroid subcentimeter hypodensity. ??Based on size criteria alone, no specific follow-up imaging is indicated. If there is specific concerning laboratory or patient history, dedicated thyroid ultrasound could be considered for further evaluation. ?? IMPRESSION: ?? 1. ?? Moderate cervical disc degeneration with thickened ligamentum flavum, uncovertebral spurring and facet arthropathy as seen on the previous cervical spine MRI dated 08/07/2023. ??The spinal canal stenosis is most noticeable at C5-C6 and C6-C7. 2. ?? Varying degrees of bilateral osseous neural foraminal narrowing and additional findings as above. THIS IS AN ELECTRONICALLY VERIFIED FINAL REPORT 11/23/2023 9:33 AM - Electronically signed by ??Sergio Hensley D.O. AP D: ??11/23/2023 9:33 AM T: Report ID: [id number] Reading Location: ??[id number] Procedure Note Sergio Hensley, DO - 11/24/2023 EXAM DESCRIPTION: CT CERVICAL SPINE WO CONTRAST REASON FOR STUDY: neck pain Pt c/o neck pain and states that her doctor says she needs to have surgeryon her neck. TECHNIQUE: Axial images through the cervical spine with sagittal andcoronal reformatted images. Automated exposure control was used as a doseoptimization technique for this examination. COMPARISON: Cervical spine MRI dated 08/07/2023 and cervical spine radiographs dated 04/16/2023. FINDINGS: ALIGNMENT: Reversal normal cervical lordosis. Mild anterolisthesis ofC2 on C3 through C4 on C5. Mild retrolisthesis of C5 on C6 and C6 on C7. VERTEBRAE: Multilevel endplate degenerative changes and marginal spur formation ranging up to moderate at C5-C6 and to a lesser extent at C6-C7and remainder of the cervical levels. There is osseous fusion across the bilateral C2-C3 facet joints. DISCS: Diffuse intervertebral disc height loss, most noticeable at C5-C6and C6-C7, vacuum disc phenomenon at C5-C6. HARDWARE: None in the spine. INDIVIDUAL LEVELS: Suboptimally evaluated by non myelographic CT technique. C2-C3: No significant disc bulge. There is thickened ligamentum flavum. Uncovertebral spurring and facet arthropathy with mild left and nosignificant right osseous neural foraminal narrowing. C3-C4: Posterior disc osteophyte complex and thickened ligamentum flavum.No significant spinal canal stenosis. Uncovertebral spurring and facet arthropathy with mild left and no significant right neural foraminalnarrowing. C4-C5: Posterior disc osteophyte complex and thickened ligamentum flavum.No significant spinal canal stenosis. Uncovertebral spurring and ifer-uhrsaac-kedx-right facet arthropathy without significant osseousneural foraminal narrowing. C5-C6: Posterior disc osteophyte complex and thickened ligamentum flavum. Elwf-kp-tnlwkcbc spinal canal stenosis. Uncovertebral spurring and facet arthropathy with fqjx-sg-ahpkpndd left and no significant right osseousneural foraminal narrowing. C6-C7: Posterior disc osteophyte complex and thickened ligamentum flavum. Moderate spinal canal stenosis. Uncovertebral spurring and facetarthropathy with moderate right and jghj-nt-icbbjcwn left neural foraminalnarrowing. C7-T1: Disc bulge without significant osseous spinal canal stenosis. No significant osseous neural foraminal narrowing. UPPER THORACIC: Incompletely imaged. No high-grade osseous spinal canal stenosis. LUNG APICES: No focal pneumonic consolidation. NECK SOFT TISSUES: Calcified plaque at the bilateral carotidvasculature. Left thyroid subcentimeter hypodensity. Based on size criteria alone, no specific follow-up imaging is indicated. If there is specific concerning laboratory or patient history, dedicated thyroid ultrasound could be considered for further evaluation. IMPRESSION: 1. Moderate cervical disc degeneration with thickened ligamentum flavum, uncovertebral spurring and facet arthropathy as seen on the previouscervical spine MRI dated 08/07/2023. The spinal canal stenosis is most noticeableat C5-C6 and C6-C7. 2. Varying degrees of bilateral osseous neural foraminal narrowing and additional findings as above. 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 Arthropathy of cervical facet joint Anterolisthesis of cervical spine documented in this encounter Care Teams Taper/Finisher Relationship Specialty Start Date End Date Eron Hloliday NP [address] [place] [address] [place] [address] PCP - General Pain Management 07/15/22 Marialuisa Daniel, VIDEO TAPE EDITOR [address] [place] [address] Nurse Practitioner Endocrinology Diabetes & Metabolism 09/22/23 Leobardo Bhagat MD [address] [place] [address] [address] Consulting Physician Nephrology 09/22/23 [place] [id number] [address] Consulting Physician Cardiovascular Disease 09/22/23 documented as of this encounter
--- OUTSIDE RECORDS SUMMARY | 2024-03-03 15:34 | XMS_ITS | Encounter Summary ---
Author Organization [facility] Healthcare Address [address] [place] [address] Care Team Providers Care Teamsite Developer Name Role Phone Eron Holliday NP Primary Care Provider [phone] Marialuisa Daniel NP Unavailable [phone] Leobardo Bhagat MD Unavailable Florin Dixon MD Unavailable Reason for Visit * Reason Onset Date Comments at home PT 10/10/2023 Encounter Details Date Type Department Care Team (Late st Contact Info) Description 10/10/2023 Telephone [facility] Medical Group Orthopedics and Sports Medicine [address] [place] [phone] Regi Khan DO [address] [place] [phone] at home PT Social History Tobacco Use Types Packs/Day Years Used Date Smoking Tobacco: Former Cigarettes Q uit: 03/20/2020 Smokeless Tobacco: Never OASIS D0700: Social Isolation Answer Da te Recorded Frequency of experiencing loneliness or isolatio n Never 10/12/2023 OASIS A1250: Transportation Answer Date Recorded Lack of Transportation (Medical) No 10/12/2023 Lack of Transportation (Non-Medical) No 10/12/2023 Patient Unable or Declines to Respond No 10/12/2023 OASIS B1300: Health Literacy Answer Mario e Recorded Frequency of needing help to read materials from doctor or pharmacy Never 10/12/2023 [facility] Utilities Answer Date Recorded In the [...] often do you attend chur ch or sikh services? 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 She is stated that the hospital told her that she would get a call from [facility] home care a few days after her discharge but she has not heard and she is not sure when she should start PT documented in this encounter Plan of Treatment Not on file documented as of this encounter Visit Diagnoses Not on filedocumented in this encounter Care Teams Teamsite Developer Relationship Specialty Start Date End Date Eron Holliday NP [address] [place] [address] PCP - General Pain Management 07/15/22 Marialuisa Daniel NP [address] [place], [place] [id number] Nurse Practitioner Endocrinology Diabetes & Metabolism 09/22/23 Leobardo Bhagat MD [address] [place] [address] Consulting Physician Nephrology 09/22/23 [place] [id number] [address] Consulting Physician Cardiovascular Disease 09/22/23 documented as of this encounter
--- OUTSIDE RECORDS SUMMARY | 2024-03-03 15:34 | XMS_ITS | Encounter Summary ---
Author Organization [facility] Healthcare Address [address] [place] [address] Care Team Providers Care Weather Clerk Name Role Phone Eron Holliday NP Primary Care Provider [phone] Marialuisa Daniel NP Unavailable [phone] Leobarod Bhagat MD Unavailable Florin Dixon MD Unavailable Reason for Visit * Reason Onset Date Comments FMLA paperwork 10/06/2023 Encounter Details Date Type Department Care Team (Late st Contact Info) Description 10/06/2023 Telephone [facility] Medical Group Orthopedics and Sports Medicine [address] [place] [phone] Regi Khan DO [address] [place] [phone] FMLA paperwork Social History Tobacco Use Types Packs/Day Years [...] from doctor or pharmacy Never 10/22/2023 [facility] Utilities Answer Date Recorded In [...] often do you attend chur ch or zoroastrian services? 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 * Telephone Encounter - Airam Bond - 10/06/2023 2:35 PM CDT BLB Pt is calling checking status on paperwork fro Work, pt would like a call back because she is suppose to be getting discharged from hospital today. Please call pt documented in this encounter Plan of Treatment Not on file documented as of this encounter Visit Diagnoses Not on filedocumented in this encounter Care Teams Weather Clerk Relationship Specialty Start Date End Date Eron Holliday NP [address] [place] [address] PCP - General Pain Management 07/15/22 Marialuisa Daniel NP [address] [place] [id number] Nurse Practitioner Endocrinology Diabetes & Metabolism 09/22/23 Leobardo Bhagat MD [address] [place] [address] Consulting Physician Nephrology 09/22/23 [place] [id number] [address] Consulting Physician Cardiovascular Disease 09/22/23 documented as of this encounter
--- OUTSIDE RECORDS SUMMARY | 2024-03-03 15:34 | XMS_ITS | Encounter Summary ---
Author Organization [facility] Healthcare Address [address] [place] [address] Care Team Providers Care Fire Boat Engineer Name Role Phone Eron Holliday NP Primary Care Provider [phone] Marialuisa Daniel NP Unavailable [phone] Leobardo Bhagat MD Unavailable [phone] Florin Dixon MD Unavailable Reason for Referral * Home Health (Routine) - Authorized Specialty Diagnoses / Procedures Referred By Claudette smith Referred To Contact Home Health Services Diagnoses Aftercare following right knee joint replacement surgery Regi Khan DO [address] [facility] [address] [address] Phone: tel: fax: Referral ID Status Reason Start Date Expiration Date Visits Requested Visits Authorized [id number] Authorized Specialty Services Required 10/10/2023 11/08/2024 1 1 Question [facility] Primary disciplines requested: Physical Therapy, [facility] Therapy to Eval/Tx, Wound/Ostomy Care Does the patient have a wound vac? No Therapy instructions: Ortho rehab, Post surgical rehab Requested Start of Care Date: 24-48 hours Physician to follow patient's care (the person listed here will be responsible for signing ongoing orders): Referring Provider I attest that I or another qualified licensed provider saw the patient 90 days prior to or 30 days post admission and this face to face encounter meets the necessary Home Health requirements. The face to face encounter occurred on (date): 10/06/2023 The encounter with the patient was in whole, or in part, for the following medical condition, which is the primary reason for home health care. (List medical condition): RTKA I certify that, based on my findings, the following services are medically necessary skilled home health services: Therapy to Eval/Tx, Wound/Ostomy Care Clinical findings that support the need for home care: Frequent falls requiring safety eval/therapy, Wound requiring care, assessment, and instruction I certify that my clinical findings support patient's homebound status. Homebound criteria met because: Requires assistance of another to leave home safely, Abnormal gait/unsteady balance resulting in fall risk Encounter Details Date Type Department Care Team (Late st Contact Info) Description 10/10/2023 Orders Only [facility] Medical Group Orthopedics and Sports Medicine [address] [place] [phone] Yoan Edwards PA [address] [facility] [address] [address] Aftercare following right knee joint replacement surgery (Primary Dx) Social History Tobacco Use Types Packs/Day Years Used Date Smoking Tobacco: Former Cigarettes Q uit: 03/20/2020 Smokeless Tobacco: Never [facility] Utilities Answer Date Recorded In the past 12 months has [employer], gas, oil, or water [employer] threatened to shut off services in your [...] 10/07/2023 How often do you attend chur or zoroastrian services? Never 10/07/2023 Do you [...] any time in the past 12 m [facility], were you homeless or living in a long-term (including now)? No 10/07/2023 Personal Safety Answer Date Recorded Have you ever been in or are you currently in a harmful physical or emotional relationship or is someone making you feel afraid or unsafe? 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 Gender Identity Female 12/26/2023 10:11 PM CDT Sexual Orientation Straight 12/26/2023 10 :11 PM CDT Occupation Industry Job Start Date Job End Date [employer] Not on file Not on file Not on file documented as of this encounter Plan of Treatment Scheduled Referrals Name Type Priority Associated Diagnoses Order Schedule Ambulatory referral to Home Health Outpatient Referral Routine Aftercare following right knee joint replacement surgery 1 Occurrences starting 10/10/2023 until 04/11/2024 documented as of this encounter Visit Diagnoses Diagnosis Aftercare following right knee joint replacement surgery- Primary documented in this encounter Care Teams Fire Boat Engineer Relationship Specialty Start Date End Date Eron Holliday NP [address] [facility] [place] [address] PCP - General Pain Management 07/15/22 Marialuisa Daniel NP [address] [facility] [place] [place] [address] Nurse Practitioner Endocrinology Diabetes & Metabolism 09/22/23 Leobardo Bhagat MD [address] [place] [address] [address] Consulting Physician Nephrology 09/22/23 [place] [id number] [address] Consulting Physician Cardiovascular Disease 09/22/23 documented as of this encounter
--- OUTSIDE RECORDS SUMMARY | 2024-03-03 15:34 | XMS_ITS | Encounter Summary ---
Author Organization [facility] Healthcare Address [address] [place] [address] Care Team Providers Care Crane Hoist Or Lift Operator Name Role Phone Eron Holliday NP Primary Care Provider [phone] Marialuisa Daniel NP Unavailable [phone] Leobardo Bhagat MD Unavailable [phone] Florin Dixon MD Unavailable Encounter Details Date Type Department Care Team (Late st Contact Info) Description 10/10/2023 Orders Only [facility] Medical Group Orthopedics and Sports Medicine [address] [place] [phone] Yoan Edwards PA [address] [place] [address] Social History Tobacco Use Types Packs/Day Years Used Date Smoking Tobacco: Former Cigarettes Q uit: 03/20/2020 Smokeless Tobacco: Never [facility] Utilities Answer Date Recorded In the past 12 months has [employer], gas, oil, or water company threatened [...] often do you attend chur ch or sabianism services? 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 Gender Identity Female 12/26/2023 10:11 PM CDT Sexual Orientation Straight 12/26/2023 10 :11 PM CDT Occupation Industry Job Start Date Job End Date [employer] Not on file Not on file Not on file documented as of this encounter Plan of Treatment Not on file documented as of this encounter Visit Diagnoses Not on filedocumented in this encounter Care Teams Crane Hoist Or Lift Operator Relationship Specialty Start Date End Date Eron Holliday NP [address] [place] [address] PCP - General Pain Management 07/15/22 Marialuisa Daniel NP [address] [place] [address] Nurse Practitioner Endocrinology Diabetes & Metabolism 09/22/23 Leobardo Bhagat MD [address] [place] [address] Consulting Physician Nephrology 09/22/23 [place] [id number] [address] Consulting Physician Cardiovascular Disease 09/22/23 documented as of this encounter
--- OUTSIDE RECORDS SUMMARY | 2024-03-03 15:34 | XMS_ITS | Encounter Summary ---
Author Organization [facility] Healthcare Address [address] [place] [address] Care Team Providers Care Die Cast Supervisor Name Role Phone Eron Holliday NP Primary Care Provider [phone] Marialuisa Daniel NP Unavailable [phone] Leobardo Bhagat MD Unavailable [phone] Florin Dixon MD Unavailable Reason for Referral * Physical Therapy (Routine) - Authorized Specialty Diagnoses / Procedures Referred By Claudette smith Referred To Contact Physical Therapy Diagnoses Aftercare following right knee joint replacement surgery Yoan Edwards PA [facility] [address] [place] [address] Phone: tel: fax: Regi Batres DO [address] [place] [address] [address] [place] [address] Phone: tel: fax: Referral ID Status Reason Start Date Expiration Date Visits Requested Visits Authorized [id number] Authorized Specialty Services Required 10/21/2023 10/23/2024 36 18 Question Answer PTRFR PT Evaluate and Treat Therapy options discussed with patient? Yes Location provided for therapy services is: Patient requested/Patient preferred Please select the performing region: [facility] [[id number]] To provider: REGI BATRES [[id number]] # of visits: 24 Comments 2 to 3 times a week for 12 weeks Strengthening, range of motion and modalities as needed for right knee * Diagnostic Imaging (Routine) - Closed Specialty Diagnoses / Procedures Referred By Claudette smith Referred To Contact Diagnoses Aftercare following right knee joint replacement surgery Procedures XR Knee Right 3 Views Yoan Edwards PA [address] [place] [address] [address] [place] [address] Phone: tel: fax: [address] [phone] Referral ID Status Reason Start Date Expiration Date Visits Re quested Visits Authorized [id number] Closed 10/15/2023 11/13/2024 1 1 Reason for Visit * Reason Comments Post-op Encounter Details Date Type Department Care Team (Late st Contact Info) Description 10/21/2023 8:30 AM CDT Office Visit [facility] Medical Group Orthopedics and Sports Medicine [address] [place] [phone] Yoan Edwards PA [address] [place] [address] [address] Aftercare following right knee joint [...] materials from doctor or pharmacy Never 10/22/2023 [facility] Utilities Answer Date Recorded In the past 12 months has th e [employer], gas, oil, or water company threatened to [...] any clubs o r organizations such as druze groups, unions, fraternal or athletic groups, or [...] any time in the past 12 m [facility], were you homeless or living in [...] file 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 Postop Visit CHIEF COMPLAINT She had no chief complaint listed for this encounter. HISTORY OF PRESENT ILLNESS Sandy Lopez is a 58 y.o. female who was seen today for follow up after right total knee arthroplasty on 10/06/2023. Patient is doing well postoperatively and endorses mild to moderate pain at this time. She reports the pain levels are 4/10 on a pain scale but is otherwise well controlled with oxycodone. The patient reports that she has been utilizing oxycodone less and is transitioning to izkn-xrm-iaoovol Tylenol at this time. Patient has been visiting with home health for PT and wound care management he reports that this is also going well, but she is looking forward to beginning formal physical therapy. Patient is ambulating with a walker and reports that she has been able to ascend 6 stairs into her house without difficulty. Patient was unable to get a CPM machine as insurance would not cover it. MEDICATIONS She has a current medication list which includes the following prescription(s): alcohol swabs, aspirin, atorvastatin, glucose blood, blood-glucose meter, dexcom g7 sensor, dexcom g6 transmitter, buspirone, cholecalciferol, citalopram, clopidogrel, dexcom g7 sensor, docusate sodium, docusate sodium,ergocalciferol (vitamin d2), ezetimibe, famotidine, fexofenadine, insulin lispro, humalog, omnipod dash pods (gen 4), insulin syringe-needle u-100, jardiance, lancets, losartan-hydrochlorothiazide, meclizine, metformin, nystatin, omnipod dash pods (gen 4), ondansetron odt, ondansetron odt, oxycodone, oxycodone, pantoprazole dr, pen needle, diabetic, pen needle, diabetic, propranolol, sumatriptan, tab-a-tee, tirzepatide, and zolpidem. ALLERGIES She is allergic to codeine, nsaids (non-steroidal anti-inflammatory drug), and ibuprofen. REVIEW OF SYSTEMS Constitutional: Positive for activity change Musculoskeletal: Positive for arthralgias PHYSICAL EXAM LMP (LMP Unknown) Right knee Inspection Erythema: absent Cellulitis: absent Swelling: absent Surgical scar/wound: present. The surgical scar/wound is healing, well approximated and no evidenceof infection. There is no drainage present. Skin temperature: normal Palpation The patient has normal palpation of the right knee. Tenderness: absent. Crepitus: negative Range of motion Active extension: 5 Active flexion: 86-90 Strength Knee extension: 4/5 Knee flexion: 4/5 Neurovascular The patient has normal vascular on the right side of their body. Dorsalis pedis pulse: 2+ Posterior tibial pulse: 2+ The patient has normal sensation on the right side of their body. REVIEW OF X-RAYS/STUDIES/LABS Multiple x-rays of the right knee taken today and independently reviewed by me demonstrate anatomically placed total knee arthroplasty hardware which appears in proper alignment. Evidence of decreased bone quality noted to the medial aspect of the femur. No evidence of supracondylar fracture appreciated. Skin deanna noted anteriorly. Assessment/Plan: 1. Aftercare following right knee joint replacement surgery - XR Knee Right 3 Views; Future I discussed with the patient that she is doing very well postoperatively as pain is improving and she is ambulating well with her walker. At this time I will start the patient with formal physical therapy at her preference in [place]. Patient is encouraged to continue weaning from oxycodone use and transitioning to dkxk-htv-ziqivrm Tylenol p.r.n.. And Steri-Strips were subsequently applied. I discussed with the patient she may run water over the incision but she is to avoid vigorously scrubbing or soaking at the incision site. Patient is otherwise doing well and endorses no complaints at this time. ERA Figueredo 10/21/2023 documented in this encounter Plan of Treatment Scheduled Referrals Name Type Priority Associated Diagnoses Orde r Schedule Ambulatory referral order to Physical Therapy - Outpatient Referral Routine Aftercare following right knee joint replacement surgery Expected: 10/28/2023 (Approximate), Expires: 10/20/2024 documented as of this encounter Results * XR Knee Right 3 Views (10/21/2023 8:13 AM CDT) Anatomical Region Laterality Modality Lower Extremities, Knee Right Computed Radiography 10/22/2023 9:37 AM CDT Narrative 10/22/2023 9:37 AM CDT EXAM DESCRIPTION: XR KNEE RIGHT 3 VIEWS REASON FOR STUDY: PAIN ?? General knee pain since total knee replacement 10-06-23 ? FINDINGS: Three views submitted with comparison 10/06/2023. A right total knee arthroplasty is in near anatomic alignment. ??There are no fractures or evidence of loosening. ??Large knee effusion is present. IMPRESSION: Right total knee arthroplasty in near anatomic alignment. Large right knee effusion. THIS IS AN ELECTRONICALLY VERIFIED FINAL REPORT 10/22/2023 9:37 AM - Electronically signed by ??Lamont Hidalgo M.D. D: ??10/22/2023 9:37 AM T: Report ID: [id number] Reading Location: ??[id number] Procedure Note Lamont Hidalgo MD - 10/22/2023 EXAM DESCRIPTION: XR KNEE RIGHT 3 VIEWS REASON FOR STUDY: PAIN General knee pain since total knee replacement 10-06-23 FINDINGS: Three views submitted with comparison 10/06/2023. A right total knee arthroplasty is in near anatomic alignment. There areno fractures or evidence of loosening. Large knee effusion is present. IMPRESSION: Right total knee arthroplasty in near anatomic alignment. Large right knee effusion. THIS IS AN ELECTRONICALLY VERIFIED FINAL REPORT 10/22/2023 9:37 AM - Electronically signed by Lamont Hidalgo M.D. T: Report ID: [id number] Reading Location: [place] [address] Yoan Edwards ERA IMG XR PROCEDURES Final Result documented in this encounter Visit Diagnoses Diagnosis Aftercare following right knee joint replacement surgery- Primary Aftercare following right knee joint replacement surgery documented in this encounter Care Teams Die Cast Supervisor Relationship Specialty Start Date End Date Eron Holliday NP [address] [facility] [place] [address] PCP - General Pain Management 07/15/22 Marialuisa Daniel NP [address] [facility] [place] [address] Nurse Practitioner Endocrinology Diabetes & Metabolism 09/22/23 Leobardo Bhagat MD [address] [place] [address] [address] Consulting Physician Nephrology 09/22/23 [place] [id number] [address] Consulting Physician Cardiovascular Disease 09/22/23 documented as of this encounter
--- OUTSIDE RECORDS SUMMARY | 2024-03-03 15:34 | XMS_ITS | Encounter Summary ---
Author Organization [facility] Healthcare Address [address] [place] [id number] Care Team Providers Care Sample Maker Name Role Phone Eron Holliday NP Primary Care Provider [phone] Marialuisa Daniel NP Unavailable [phone] Leobardo Bhagat MD Unavailable Florin Dixon MD Unavailable Reason for Referral * Home Health (Routine) - Pending Review Specialty Diagnoses / Procedures Referred By Claudette smith Referred To Contact Home Health Services Diagnoses Aftercare following right knee joint replacement surgery Regi Khan DO [address] [facility] [address] [address] Phone: tel: fax: [facility] Home Care Services [facility] [address] [place] [address] Referral ID Status Reason Start Date Expiration Date Visits Requested Visits Authorized [id number] Pending Review Specialty Services Required 10/07/2023 11/05/2024 1 1 Question Answer [id number] Home Health Primary disciplines requested: Long-Term, Physical Therapy Home Health Services Therapy to Eval/ Treat, Strengthening Exercises, Wound/ Ostomy Care Requested Start of Care Date: Other Comment: 10/12/23 Physician to follow patient's care (the person listed here will be responsible for signing ongoing orders): Referring Provider I attest that I or another qualified licensed provider saw the patient 90 days prior to or 30 days post admission and this face to face encounter meets the necessary Home Health requirements. The face to face encounter occurred on (date): 10/12/2023 The encounter with the patient was in whole, or in part, for the following medical condition, which is the primary reason for home health care. (List medical condition): The patient requires assistance with gait training, ambulation assistance and wound care following total knee arthroplasty surgery. I certify that, based on my findings, the following services are medically necessary skilled home health services: Wound/ Ostomy Care, Strengthening Exercises, Therapy to Eval/ Treat, Strengenthing/ Balance Clinical findings that support the need for home care: Medical condition requiring skilled assessment/education, Wound requiring care, assessment, and instruction I certify that my clinical findings support patient's homebound status. Homebound criteria met because: Requires assistance of another to leave home safely, Pain with minimal activity or rest, Pain and impaired mobility post-op Reason for Visit * Auth/Cert Specialty Diagnoses / Procedures Referred By Claudette t Referred To Contact Diagnoses Primary osteoarthritis of right knee Primary osteoarthritis of right knee [M17.11] Procedures MI ARTHRP KNE CONDYLE&PLATU MEDIAL&LAT COMPARTMENTS RIGHT TOTAL KNEE ARTHROPLASTY Referral ID Status Reason Start Date Expiration Date Visits Re quested Visits Authorized [id number] 1 1 Encounter Details Date Type Department Care Team (Latest Contact Info) Description 10/06/2023 5:20 AM CDT - 10/07/2023 6:10 PM CDT Hospital Encounter [address] [address] Regi Khan DO [address] [place] [id number] Primary osteoarthritis of right knee [M17.11] (Primary Dx); Aftercare following right knee joint replacement surgery Discharge Disposition: Discharge to home or self care Social History Tobacco Use Types Packs/Day Years Used Date Smoking Tobacco: Former Cigarettes Q uit: 03/20/2020 Smokeless Tobacco: Never [facility] Utilities Answer Date Recorded In the past [...] any clubs o r organizations such as pres[employer]beterian groups, unions, fraternal or athletic groups, or [...] any time in the past 12 m [facility], were you homeless or living in a [place] [facility] facility (including now)? No 10/07/2023 Personal Safety Answer Date Recorded Have you ever been in or are you currently in a harmful physical or emotional relationship or is someone making you feel afraid or unsafe? 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 Gender Identity Female 12/26/2023 10:11 PM CDT Sexual Orientation Straight 12/26/2023 10 :11 PM CDT Occupation Industry Job Start Date Job End Date [employer] Not on file Not on file Not on file documented as of this encounter Last Filed Vital Signs Vital Sign Reading Time Taken Comments Blood Pressure 143/62 10/07/2023 4:20 PM CDT Pulse 72 10/07/2023 4:20 PM CDT Temperature 37.6 ??C (99.7 ??F) 10/07/2023 4:20 PM CD T Respiratory Rate 17 10/07/2023 4:20 PM CDT Oxygen Saturation 94% 10/07/2023 4:20 PM CDT Inhaled Oxygen Concentration - - Weight 94 kg (207 lb 3.7 oz) 10/06/2023 10:47 AM CDT Height 165.1 cm (5' 5 ) 10/06/2023 10:47 AM CDT Body Mass Index 34.49 10/06/2023 10:47 AM CDT documented in this encounter Discharge Summaries * Yoan Edwards PA - 10/07/2023 7:56 AM CDT Images from the original note were not included. Name: Sandy Lopez Date: 10/07/2023 7:15 PM : 1965 Admission Date: 10/06/2023 Age/Sex: 58 y.o. 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 female who presented to [facility] on 10/06/2023. Sandy Lopez underwent Procedure(s) (LRB): RIGHT TOTAL KNEE ARTHROPLASTY (Right) performed by Dr. Regi Khan DO. Patient tolerated the procedure well and was transferred to the post anesthesia care unit in stable condition. After a briefstay in the PACU, the patient was transferred to the floor in stable condition. During the patientshospital stay they received the benefit of DVT prophylaxis, diabetes management, pain control with both PO and IV pain medication, prophylactic antibiotics and daily therapy. Patient's hospital stay was uncomplicated and on the date of discharge the patient was tolerating a regular diet, was able to participate with physical therapy and had adequate pain control. Patient was discharged on 10/07/2023 6:10 PM. Disposition: Discharge to home or self care Discharge Medications: Current Medications TAKE these medications alcohol swabs pads, medicated Apply 1 each topically 4 (four) times a day before meals and nightly E11.65 aspirin 81 mg enteric coated tablet Take 1 tablet (81 mg total) by mouth daily atorvastatin 80 mg tablet TAKE 1 TABLET BY MOUTH DAILY Commonly known as: LIPITOR blood-glucose meter kit Use daily as directed for monitoring of blood sugar for diabetes, e11.65 busPIRone 5 mg tablet Take 1 tablet (5 mg total) by mouth 2 (two) times a day Commonly known as: BUSPAR cholecalciferol 25 mcg (1,000 unit) tablet citalopram 20 mg tablet Take 1.5 tablets (30 mg total) by mouth every morning Commonly known as: CeleXA clopidogreL 75 mg tablet Take 1 tablet (75 mg total) by mouth daily Commonly known as: PLAVIX Dexcom G6 Duplication Specialist [facility] USE TO TEST BLOOD SUGAR DIRECTED Generic drug: blood-glucose meter,continuous * Dexcom G6 Transmitter device USE TO TEST BLOOD SUGAR TWICE A DAY Generic drug: blood-glucose transmitter * Dexcom G6 Transmitter device Generic drug: blood-glucose transmitter * Dexcom G7 Sensor device 1 Device continuously . Change every 10 days. Generic drug: blood-glucose sensor * Dexcom G7 Sensor device Generic drug: blood-glucose sensor empagliflozin 25 mg tablet Take 1 tablet (25 mg total) by mouth daily Commonly known as: Jardiance ergocalciferol (vitamin D2) 50 mcg (2,000 unit) capsule Take 2,000 Units by mouth daily ezetimibe 10 mg tablet TAKE 1 TABLET BY MOUTH DAILY Commonly known as: ZETIA famotidine 20 mg tablet Take 1 tablet (20 mg total) by mouth 2 (two) times a day Commonly known as: PEPCID fexofenadine 180 mg tablet Take 1 tablet (180 mg total) by mouth daily Commonly known as: ADELA glucose blood test strip Check blood sugar 3x times a day or as directed. Generic drug: blood glucose diagnostic * HumaLOG 200 unit/mL (3 mL) pen for injection Inject 0.08 mL (16 Units total) under the skin 3 (three) times a day before meals When insulin pumpfails. pump has failed. For: type 2 diabetes mellitus Generic drug: insulin lispro * insulin lispro 100 unit/mL vial for injection USE PER INSULIN PUMP MAX OF 150 UNITS DAILY NEEDED Commonly known as: HumaLOG insulin syringe-needle U-100 1 mL 31 gauge x 5/16 syringe Twice a day lancets misc 1 each by other route daily Use to monitor blood sugar daily. losartan-hydroCHLOROthiazide 100-12.5 mg per tablet Take 1 tablet by mouth daily Commonly known as: HYZAAR meclizine 25 mg tablet Take 1 tablet (25 mg total) by mouth as needed Commonly known as: ANTIVERT metFORMIN 1,000 mg tablet TAKE 1 TABLET BY MOUTH TWICE A DAY WITH FOOD Commonly known as: GLUCOPHAGE nystatin cream * Omnipod Dash Pods (Gen 4) cartridge Inject 1 Device under the skin daily Generic drug: insulin pump cart,cont inf,BT * Omnipod Dash Pods (Gen 4) cartridge CHANGE OMNIPOD POD EVERY 48 HOURS Generic drug: insulin pump cart,cont inf,BT pantoprazole DR 40 mg EC tablet Take 1 tablet (40 mg total) by mouth daily Commonly known as: PROTONIX * pen needle, diabetic 32 gauge x 5/32 needle Use to inject insulin up to 4times/day. E11.65 * TRUEplus Pen Needle 32 gauge x 5/32 needle TRUEplus Pen Needle 32 gauge x 5/32 Generic drug: pen needle, diabetic propranoloL 20 mg tablet Take 1 tablet (20 mg total) by mouth 2 (two) times a day Commonly known as: INDERAL SUMAtriptan 50 mg tablet Take 1 tablet (50 mg total) by mouth once as needed Commonly known as: IMITREX Tab-A-Emily 400 mcg tablet Take 1 tablet by mouth daily Generic drug: multivitamin with folic acid tirzepatide 7.5 mg/0.5 mL pen injector Inject 7.5 mg under the skin once a week E11.65 Commonly known as: MOUNJARO zolpidem 10 mg tablet Take 1 tablet (10 mg total) by mouth nightly as needed Commonly known as: AMBIEN * This list has 10 medication(s) that are the same as other medications prescribed for you. Read the directions carefully, and ask your doctor or other care provider to review them with you. Discharge Instructions: Activity Instructions Post-Discharge Activity Instructions - Knee Weight bear as tolerated on your leg. Knee range of motion exercises and strengthening as directed by your physician. Weight bearing status Extremity 1: Left Lower Extremity Restriction: Weight Bearing as Tolerated Extremity 2: Right Lower Extremity Restriction: Weight Bearing as Tolerated Other Instructions Ambulatory referral to Home Health Service Line: Home Health Primary disciplines requested: Long-Term Physical Therapy Home Health Services: Therapy to Eval/ Treat Strengthening Exercises Wound/ Ostomy Care Requested Start of Care Date: Other Comment: 10/12/23 Physician to follow patient's care (the person listed here will be responsible for signing ongoing orders): Referring Provider I attest that I or another qualified licensed provider saw the patient 90 days prior to or 30 days post admission and this face to face encounter meets the necessary Home Health requirements. The face to face encounter occurred on (date): 10/12/2023 The encounter with the patient was in whole, or in part, for the following medical condition, whichis the primary reason for home health care. (List medical condition): The patient requires assistance with gait training, ambulation assistance and wound care following total knee arthroplasty surgery. I certify that, based on my findings, the following services are medically necessary skilled home health services: Wound/ Ostomy Care Strengthening Exercises Therapy to Eval/ Treat Strengenthing/ Balance Clinical findings that support the need for home care: Medical condition requiring skilled assessment/education Wound requiring care, assessment, and instruction I certify that my clinical findings support patient's homebound status. Homebound criteria met because: Requires assistance of another to leave home safely Pain with minimal activity or rest Pain and impaired mobility post-op Post-Discharge Dressing Care - (Specify in comments) Okay to remove dressing on postoperative day #[address] dry dressing daily or as needed Incision must stay dry and covered for showers until yahir are removed in 2-weeks. Do not apply lotions or ointments to skin incision. Post-Discharge Dressing Care - DO NOT submerge incision In tub, hot tub, pool, stewart, river, ocean etc. until incision is healed and surgeon gives clearance. Walker The oitp-pz-[id number] evaluation was performed on: 10/07/2023 Primary Care Physician at Discharge: Eron Holliday NP [phone] Follow up: [facility] [address] [place] [address] [address] [facility] [phone] Future Appointments Date Time Provider Department Center 10/10/2023 11:00 AM Marialuisa Daniel NP ENDO [facility] 10/21/2023 8:30 AM Yoan Edwards PA [facility] [address] [facility] Specialty 10/22/2023 10:00 AM Felipe Cox MD [facility] NEURO [facility]T NEUR 11/20/2023 2:45 PM Regi Khan DO [facility]ty Contact Information for Follow-ups [facility] Specialty: Orthopedic Surgery [address] [place] [address] [address] [facility] [phone] Next Steps: Follow up Questions: Service Line: Home Health Primary disciplines requested: Long-Term Physical Therapy Home Health Services: Therapy to Eval/ Treat Strengthening Exercises Wound/ Ostomy Care Requested Start of Care Date: Tomorrow Physician to follow patient's care (the person listed here will be responsible for signing ongoing orders): Referring Provider I attest that I or another qualified licensed provider saw the patient 90 days prior to or 30 days post admission and this face to face encounter meets the necessary Home Health requirements. The face to face encounter occurred on (date): 10/07/2023 The encounter with the patient was in whole, or in part, for the following medical condition, whichis the primary reason for home health care. (List medical condition): The patient requires assistance with gait training, ambulation assistance and wound care following total knee arthroplasty surgery. I certify that, based on my findings, the following services are medically necessary skilled home health services: Wound/ Ostomy Care Strengthening Exercises Therapy to Eval/ Treat Strengenthing/ Balance Clinical findings that support the need for home care: Medical condition requiring skilled assessment/education Wound requiring care, assessment, and instruction I certify that my clinical findings support patient's homebound status. Homebound criteria met because: Requires assistance of another to leave home safely Pain with minimal activity or rest Pain and impaired mobility post-op Referral Status: External - Ready to Schedule [facility] 10/07/23 7:15 PM Cosigned by Regi Khan DO at 10/08/2023 9:07 AM CDT documented in this encounter Discharge Instructions * Attachments The following attachments cannot be sent through Care Everywhere. * Knee Replacement (Discharge Care) (Greek) documented in this encounter Medications at Time of Discharge alcohol swabs pads, medicated Apply 1 each [...] 4 blood-glucose transmitter (Dexcom G6 Transmitter) device citalopram (CeleXA) 20 mg tablet Take 1.5 [...] x 5/16 syringe Twice a day 9 lancets misc 1 each by other route [...] gauge misc 4 OneTouch Verio Flex meter mis [address] (PROTONIX) 40 mg EC [...] needed blood-glucose sensor (Dexcom G7 Sensor) device 01/14/20 24 busPIRone (BUSPAR) 5 mg tablet Take 1 tablet (5 mg total) by mouth 2 (two) times a day 2 11/20/19 24 cholecalciferol 25 mcg (1,000 unit) tablet 3 11/20/19 24 Dexcom G6 Duplication Specialist miscIndications:Typ e 2 diabetes mellitus with hyperglycemia, with long-term current use of insulin (HCC) USE TO TEST BLOOD SUGAR DIRECTED 1 each 1 2 10/10/19 24 Dexcom G6 Transmitter deviceIndications:T ype 2 diabetes mellitus with hyperglycemia, with long-term current use of insulin (HCC) USE TO TEST BLOOD SUGAR TWICE A DAY 1 each 3 3 10/10/19 24 Dexcom G7 Sensor device 1 Device [...] a day 60 capsule 4 11/20/19 24 empagliflozin (Jardiance) 25 mg tabletIndications:h eart failure associated with type 2 diabetes mellitus Take 1 tablet (25 mg total) by mouth daily 90 tablet 3 3 10/16/19 24 ergocalciferol, vitamin D2, 50 mcg (2,000 [...] for pain 21 tablet 4 11/20/19 24 tirzepatide (MOUNJARO) 7.5 mg/0.5 mL pen injector Inject 7.5 mg under the skin once a week E11.65 6 mL 4 4 11/10/19 24 documented as of this encounter Ordered Prescriptions Prescription Sig Dispense Quantity Refills Last Filled Start Date End Date ondansetron ODT (ZOFRAN-ODT) 4 mg disintegrating tabletIndications:Pr evention of Post-Operative Nausea and Vomiting Take 1 tablet (4 mg total) by mouth every 8 (eight) hours as needed for nausea or vomiting 10 tablet 10/07/2023 4 oxyCODONE (ROXICODONE) 5 mg immediate release tabletIndications:Pa in Take 1 tablet (5 mg total) by mouth every 8 (eight) hours as needed for pain 21 tablet 10/07/2023 4 docusate sodium (COLACE) 100 mg capsuleIndications:c onstipation Take 1 capsule (100 mg total) by mouth 2 (two) times a day 60 capsule 10/07/2023 4 ondansetron ODT (ZOFRAN-ODT) 4 mg disintegrating tabletIndications:Pr evention of Post-Operative Nausea and Vomiting Take 1 tablet (4 mg total) by mouth every 8 (eight) hours as needed for nausea or vomiting 10 tablet 10/07/2023 4 oxyCODONE (ROXICODONE) 5 mg immediate release tabletIndications:Pa in Take 1 tablet (5 mg total) by mouth every 8 (eight) hours as needed for pain 21 tablet 10/07/2023 4 docusate sodium (COLACE) 100 mg capsuleIndications:c onstipation Take 1 capsule (100 mg total) by mouth 2 (two) times a day 60 capsule 10/07/2023 4 documented in this encounter Discharge Disposition Disposition Code Departure Means Destination Comment s Discharge to home or self care documented in this encounter Progress Notes * Cristhian Zayas - 10/07/2023 2:39 PM CDT 10/07/23 1400 Time Spent Start Time 1102 Patient Spiritual Assessment Spirituality Assessed Yes Advent Affiliation Catholic Active in Amish Yes Place of Pent[facility]al [facility] Spiritual Needs Prayer Clinical Encounter Type Visited With Patient Response Type Routine visit Routine Visit Introduction Reason for visit Support Interventions Interventions Offer spiritual/scientologist support;Prayer * Hudson Campbell PTA - 10/07/2023 1:14 PM CDT Physical Therapy 10/07/23 1314 PT Last Visit Session Type Treatment Subjective Comment Pt c/o her pain is still too bad to participate in PT. Pt states she would be oepn to trying more tomorrow once pain is better controlled. Will continue to work with pt as time allows and treat per pt tolerance. PT Missed Visit Reason Patient declined * Stacie Abdul COTA - 10/07/2023 10:47 AM CDT Occupational Therapy 10/07/23 1047 General OT Missed Visit Reason Pain (Upon entering room pt was walking to the bathroom with RN. After pt was sitting EOB she states sheis in too much paint to work with therapy. rates pain at 1010. Attempted to see pt later 12 :55 ptstates she is still in too much pain.) * Hudson Campbell PTA - 10/07/2023 9:33 AM CDT Physical Therapy 10/07/23 0933 PT Last Visit Session Type Treatment PT Received On 10/07/23 Safe Environment Arm band checked;Patient found in supine;Gait belt utilized for all out of bed mobility (no alarm set) Family/Caregiver Present Yes (on visitor present at conclusion of treatment) Precautions Precautions Bed/Chair Alarm;Fall risk Weight Bearing Restrictions Yes RLE Weight Bearing WBAT Precaution Comments Polar ice Pain Assessment Pain Assessment 0-10 Pain Score 6 Pain Type Surgical pain Pain Location Knee Pain Orientation Right Cognition Orientation Oriented X4 (person, place, time, situation) Supine Supine-Exercises Right;Lower extremity Supine-Exercise Type Ankle pumps;Quad sets;Glut sets;SLR;ABD/ADD;Heel slides Reps/Sets 10/1 Supine-Motion AROM Supine-Exercise Comments Pt is able to perform exercises actively with cues to perform exercises correctly and at an appropriate speed. Slightly decreased ROM with SLR this date. Seated Seated-Exercises Lower extremity (RLE) Seated-Exercise Type Knee flex Reps/Sets 10/1 Seated-Motion AROM Seated-Exercise Comments Pt is able to perform exercise actively with cues to perform exercises correctly and at an appropriate speed. Bed Mobility 1 Bed Mobility From 1 Supine Bed Mobility Type 1 To Bed Mobility to 1 Edge of bed Level of Assistance 1 Contact Guard Assist;Minimal verbal cues Bed Mobility Comments 1 Pt is able to transfer supine to EOB under her own power and is CGA for pt safety. Pt is cued for proper hand placement, proper foot placement and sequencing of events. Transfer 1 Transfer From 1 Sit Transfer Type 1 To and from Transfer to 1 Stand Technique 1 Sit to stand;Stand to sit Transfer Device 1 Wheeled walker Transfer Level of Assistance 1 Contact Guard Assist;Minimal verbal cues Trials/Comments 1 Pt is able to transfer sit<>stand under her own power and is CGA for pt safety. Pt is cued for proper hand placement, proper foot placement, scooting to the EOB and bearing limited weight through the RLE. Ambulation 1 Distance (ft) 1 150' Surface 1 Level tile Device 1 Wheeled walker Assistance 1 Contact Guard Assist;Minimal verbal cues Gait: Requires verbal cues to 1 Use assistive device safely;Follow precautions/weight bearing status;Utilize appropriate gait sequencing;Improve upright posture;Increase step length;Pace activity Gait Deviations 1 Antalgic;Lora - decreased;Hip/knee flexion during swing phase - decreased;Posture - flexed;Step length - decreased;Weight bearing through UE???s - increased Quality of Gait 1 fair Ambulation Comments 1 Pt ambulates with step-to gait pattern leading with RLE and is able to progress to partial step through gait pattern. Pt demonstrates fair balance, endurance and strength. Pt displays no LOB. pt takes no breaks with minimal SOB noted. Pt has minor c/p nausea. Pt has no c/o dizziness Stairs Stairs Yes Stair Comments For first trial of stairs, pt uses a rail and SPC. For the second trial, pt only uses SPC. Pt is able to navigate stairs under her own power and is CGA for pt safety. Pt demonstrates fair balance, strength and force production. Pt displays no LOB or knee buckling. Stairs Number of Stairs 1 5 steps up/down x2 times Rails 1 Right;Left;None (Comment) (Uses rail on LUE going up and RUE going down.) Device 1 Single point cane (Contralateral to rail) Assistance 1 Contact Guard Assist;Minimal verbal Cues Stairs: Requires assist with 1 Appropriate sequencing Other Comments Other PT Comments Pt requests pain meds at conclusion of treatment. RN was notified. Safe Environment End of Therapy Session Safe Environment End of Therapy Session Patient left sitting at edge of bed;RN notified;Call light within reach;Overbed table within reach (No alarm needed per RN) Plan Plan Continue with current plan Recommendation/Plan PT Recommendation/Plan Home with family;Home Health PT Progress during current admission Progressing toward goals Time Calculation Start Time 09 Stop Time 1015 Time Calculation (min) 42 min Manager Hi Services Utilized: NO Educated the patient to the role of physical therapy, plan of care, goals of therapy, rationale forprogressing mobility and home exercise program, weight bearing precautions, and home safety. Patient was left with all needs met and equipment intact. Mobility and ADL status posted at bedsideand within medical record. Multi-Disciplinary Problems (from Physical Therapy) Active Problems Problem: PT Mis Start Date: 10/06/23 Goal Start Date Expected End Date End Date PT LTG - Mis 1 10/06/23 10/20/23 -- Goal Details: Pt will transfer supine<>sit independently Progressing Goal Start Date Expected End Date End Date PT LTG - Mis 2 10/06/23 10/20/23 -- Goal Details: Pt will transfer sit<>stand with wheeled walker, independently Progressing Goal Start Date Expected End Date End Date PT LTG - [facility] 3 10/06/23 10/20/23 -- Goal Details: Pt will ambulate 150 feet with wheeled walker, independently Progressing Goal Start Date Expected End Date End Date PT LTG - [facility] 4 10/06/23 10/20/23 -- Goal Details: Pt will ascend/descend 5 stairs with rail, independently Progressing Goal Start Date Expected End Date End Date PT LTG - [facility] 5 10/06/23 10/20/23 -- Goal Details: Pt will perform RLE TKR exercises in supine/sitting x 10 reps each, independently Progressing * Yoan Edwards PA - 10/07/2023 7:47 AM CDT Subjective: Patient seen and examined. Patient is postop day 1 status post right total knee arthroplasty. Uponentering the exam room the patient is ambulating back from the restroom with her walker. Patient isdoing well this morning and reports that pain is moderate and rated 6/10 on a pain scale. Patient is tolerating pain medication and denies any nausea or vomiting. She has full sensation of the right foot and denies any tenderness in the calf. The patient met with Physical therapy yesterday and reports that this went well. Per the PT note, the patient was able to ambulate approximately 20 ft with her walker yesterday. The patient reports that her house has 5 steps and she is eager to meet with physical therapy again today prior to discharge for step training. Otherwise the patient is doing well and provides no further questions at this time. Objective Vitals: 10/06/23 1350 10/06/23 2056 10/07/23 0101 10/07/23 0442 BP: 130/57 111/53 129/73 BP Location: Right arm Right arm Right arm Patient Position: Pulse: 80 79 75 73 Resp: 18 18 18 18 Temp: 36.7 ??C (98.1 ??F) 37.2 ??C (99 ??F) 36.7 ??C (98.1 ??F) 36.9 ??C (98.4 ??F) TempSrc: Temporal Oral Oral Oral SpO2: 95% 93% 93% 95% Weight: Height: Recent Labs Lab Units 10/07/23 0252 WBC K/cumm 11.5* HEMOGLOBIN g/dL 9.8* HEMATOCRIT % 31.6* CREATININE mg/dL 1.03 PT: Consulted, Gen: Sandy Lopez is a 58 y.o. female who is A&O x 3. Musculoskeletal: RLE Dressing c/d/i Sensation intact to light touch L3-S1 nerve root dermatomes Active dorsiflexion and plantarflexion intact Toes up and down going Brisk capillary refill in all toes Compartments soft and compressible (-) Tiny's sign Assessment: 1. MI ARTHRP KNE CONDYLE&PLATU MEDIAL&LAT COMPARTMENTS [[id number]] (RIGHT TOTAL KNEE ARTHROPLASTY) 1 Day Post-Op Plan: Orthopedic admit with hospitalist consult for medical management WB Status: WBAT with walker PT/OT consult DVT ppx: Eliquis and 81 mg ASA Diet: Advance diet as tolerated to regular Postoperative antibiotics: IV Ancef for 24 hours Tight glycemic control for optimal incision healing. Dressing: Patient is to keep the dressing clean dry and intact and may change dressings if 50% or greater saturated and may place an island dressing over the incision sites. Patient may shower 7 dayspostoperatively but may not take a bath, scrub or soak incision site. If Steri-Strips are in place do not physically remove them or scrub over the incision site. Follow-up: Patient should attend scheduled follow-up with ERA Edwards in 2 weeks [facility] Fig[facility] Orthopedic Surgery 10/07/23 7:47 AM * Gomez Angelicashmuel Reyes, DATA COMMUNICATIONS SOFTWARE CONSULTANT - 10/06/2023 3:21 PM CDT Physical Therapy 10/06/23 1521 PT Last Visit Session Type Treatment PT Received On 10/06/23 Safe Environment Arm band checked;Patient found in supine;Session completed bedside Subjective Agreeable to Therapy Subjective Comment I wish everyone would just let me sleep. Pt was agreeable to bed exercises Precautions Precautions Bed/Chair Alarm;Fall risk RLE Weight Bearing WBAT Activity Tolerance Endurance Tolerates 10 - 20 min activity with multiple rests Pain Assessment Pain Assessment 0-10 Pain Score 5 - Moderate pain Pain Type Surgical pain Pain Location Knee Pain Orientation Right Cognition Arousal/Alertness Alert Orientation Oriented X4 (person, place, time, situation) Compliance/Behavior Easy to engage Exercises Straight Leg Raise 10 Quad Sets 10 Heelslides 10 Glute Sets 10 Hip Abduction 10 Ankle Pumps 10 Supine Supine-Exercises Right;Lower extremity Reps/Sets 10/1 Supine-Motion AROM;AAROM Supine-Exercise Comments Assist required with slr at end range. Pt stated she had pulling behind knee with slr. Pt able to perform all other ex's actively. Safe Environment End of Therapy Session Safe Environment End of Therapy Session Patient left supine in bed;Bed alarm in place and activated;Sequential compressive devices on legs and activated;Call light within reach;Overbed table within reach;Bed in lowest position with wheels locked;Bed rails up per protocol Recommendation/Plan PT Recommendation/Plan Home with family;Home Health PT Time Calculation Start Time 1521 Stop Time 1544 Time Calculation (min) 23 min Manager Hi Services Utilized: NO Educated the patient to the role of physical therapy, plan of care, goals of therapy, rationale forprogressing mobility and home exercise program. Patient was left with all needs met and equipment intact. Mobility and ADL status posted at bedsideand within medical record. Multi-Disciplinary Problems (from Physical Therapy) Active Problems Problem: PT Misc Start Date: 10/06/23 Goal Start Date Expected End Date End Date PT LTG - Misc 1 10/06/23 10/20/23 -- Goal Details: Pt will transfer supine<>sit independently-NT Goal Start Date Expected End Date End Date PT LTG - Misc 2 10/06/23 10/20/23 -- Goal Details: Pt will transfer sit<>stand with wheeled walker, independently-NT Goal Start Date Expected End Date End Date PT LTG - Mis 3 10/06/23 10/20/23 -- Goal Details: Pt will ambulate 150 feet with wheeled walker, independently-NT Goal Start Date Expected End Date End Date PT LTG - Mis 4 10/06/23 10/20/23 -- Goal Details: Pt will ascend/descend 5 stairs with rail, independently-NT Goal Start Date Expected End Date End Date PT LTG - [facility] 5 10/06/23 10/20/23 -- Goal Details: Pt will perform RLE TKR exercises in supine/sitting x 10 reps each, independently progressing * Emelina Nava, OT - 10/06/2023 1:40 PM CDT Occupational Therapy 10/06/23 1340 General Chart Reviewed Yes Session Type Evaluation OT Received On 10/06/23 Safe Environment Arm band checked;Patient found in supine;Gait belt utilized for all out of bed mobility Subjective Agreeable to Therapy Subjective Comment I got up to try and pee earlier Additional Pertinent History HPI: 58 yr old female presented 10/05 for scheduled R TKR. PMhx: arthritis, arthropathy of cervical facet joint, DDD, depression, DM, GERd, Family/Caregiver Present No Occupational Therapy-Patient Goal to go home tomorrow Current Functional Status OT Functional Mobility Pt found laying supine in bed. CGA supine <> EOB, utilizing LLE to manuever RLE. CGA sit <> stand, cues for safe hand placement on FWW. CGA to ambulate in room using FWW. OT Self Care LB: Min A to thread over RLE, CGA to pull up over hips TOILETING: CGA <> in roombathroom, CGA hygiene and clothing management GROOMING: CGA dynamic standing activity using FWW forbalance as needed OT Cognition AO4 OT Communication intact Home Living Type of Home House Home Layout Able to live on main level with bedroom/bathroom;Two level Bathroom Shower/Tub Tub/shower unit Bathroom Toilet Standard Home Mobility Equipment-Available Wheeled walker Home Mobility Equipment-Currently Using None Prior Function Level of [place] Independent with ADLs;Independent functional transfers;Independent with ambulation;Independent with homemaking with ambulation Lives With Family Receives Help From Family Driving Yes ADL Assistance Independent Instrumental ADL (IADL) Assistance Independent Fall within the last 6 months No Pain Assessment Pain Assessment 0-10 Pain Score 5 - Moderate pain Pain Type Surgical pain Activity Tolerance Endurance Tolerates 10 - 20 min activity with multiple rests Cognition Arousal/Alertness Alert Attention Span Appears intact Memory Appears intact Current communication Appears Intact Orientation Oriented X4 (person, place, time, situation) Following Commands Follows all commands and directions without difficulty Safety Judgment Good awareness of safety precautions Awareness of Errors Good awareness of errors made Insight Fully aware of deficits Problem Solving Able to problem solve independently Compliance/Behavior Easy to engage Sensation Numbness/Tingling No Coordination Fine Motor WFL Serial Opposition WFL Hand Function Coordination Functional RUE Assessment RUE Assessment WFL LUE Assessment LUE Assessment WFL Safe Environment End of Therapy Session Safe Environment End of Therapy Session Patient left supine in bed;Sequential compressive devices on legs and activated;Call light within reach;Overbed table within reach;Bed in lowest position with wheels locked Assessment Problem List Decreased endurance;Decreased balance;Decreased functional mobility;Decreased ADL independence;Decreased IADL independence;Pain;Gait Barriers to Discharge Current Mobility Status;Current ADL Status Plan Plan Plan of care initiated Recommendation/Plan OT Recommendation (S) Home with intermittent assist;Home Health OT Patient at high risk for Injury due to balance deficits;Injury due to reduced functional status OT Frequency during current admission 5-7x/wk Treatment/Interventions during current admission ADL/IADL retraining;Balance Training;Bed mobility;Cognitive retraining;Compensatory technique education;Endurance training;Functional activity;Functional mobility training;Functional transfer training;Parent/caregiver training and education;Therapeutic activity;Strengthening;Therapeutic exercise;Transfer training OT - Next Appointment 10/20/23 OT Evaluation Complete Yes Time Calculation Start Time 1340 Stop Time 1400 Time Calculation (min) 20 min Multi-Disciplinary Problems (from Occupational Therapy) Active Problems Problem: OT Misc Start Date: 10/06/23 Goal Start Date Expected End Date End Date OT LTG - Misc 1 10/06/23 10/20/23 -- Goal Details: 1) LE ADL SBA WITH AE PRN. Goal Start Date Expected End Date End Date OT LTG - Misc 2 10/06/23 10/20/23 -- Goal Details: 2) FUNCTIONAL MOBILITY TO/FROM BATHROOM AND ALL ASPECTS TOILETING MODIFIED INDEP WITHDME. Goal Start Date Expected End Date End Date OT LTG - Mis 3 10/06/23 10/20/23 -- Goal Details: 3) STAND AT SINK X4 MIN FOR ADL WITH GOOD BALANCE. Goal Start Date Expected End Date End Date OT LTG - Mis 4 10/06/23 10/20/23 -- Goal Details: 5) PERFORM ITEM RETRIEVAL FROM HIGH/LOW POSITIONS WITH GOOD BALANCE/SAFETY. Goal Start Date Expected End Date End Date OT G - Mis 5 10/06/23 10/20/23 -- Goal Details: 4) PERFORM SIMULATED TUB/SHOWER/CAR TRANSFER TECHS WITH DME PRN Educated the patient to the role of occupational therapy, plan of care, goals of therapy, rationalefor progressing mobility and use of call light. verbalized understanding. RN notified of session outcome. Patient was left in supine with all needs met and equipment intact.Safety measures include bed alarm activated, oriented to call light and placed within reach, personal items within reach, and bed placed in lowest position. Mobility and ADL status posted at bedside and within medical record. Manager Hi Services Utilized: NO Patient is identified by name and date of on this visit. Cotx with ADA Swenson for safety of patient and staff due to current diagnosis, medical status, and unknown level of functional performance prior to evaluation. * Messi Castro PT - 10/06/2023 1:39 PM CDT Physical Therapy 10/06/23 3320 General Chart Reviewed Yes Session Type Evaluation PT Received On 10/06/23 Safe Environment Arm band checked;Patient found in supine;Session completed bedside;Gait belt utilized for all out of bed mobility Subjective Agreeable to Therapy Additional Pertinent History Pt is s/p R TKA today. Hx includes: anxiety, OA, DDD, depression, DM, GERD, HTN Family/Caregiver Present No Physical Therapy-Patient Goal To get back home soon and back to work Precautions Precautions (S) Bed/Chair Alarm;Fall risk Weight Bearing Restrictions Yes RLE Weight Bearing WBAT Home Living Type of Home House Home Layout One level;Work/family area in basement;Stairs with rails;Basement Home Access Stairs to enter with rails (the set of two stairs have a rail. The final step is the entry into the house and patient can use doorframe) Entrance Stairs-Number of Steps 2 + 2 +1 Home Mobility Equipment-Available Wheeled walker;Single point cane Home Mobility Equipment-Currently Using Single point cane Additional Comments Pt reports that she lives with her father in a single story house with basement. Pt normally resides in the basement level of the home but there is a bedroom/bathroom on the main floor of the house. 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 Activity Tolerance Endurance Tolerates 10 - 20 min activity with multiple rests Pain Assessment Pain Assessment 0-10 Pain Score 5 - Moderate pain Patient's Stated Pain Goal No pain Pain Type Surgical pain Pain Location Knee Pain Orientation Right Cognition Arousal/Alertness Alert Attention Span Appears intact Memory Decreased recall of biographical information Current communication Appears Intact Orientation Oriented X4 (person, place, time, situation) Following Commands Follows all commands and directions without difficulty Safety Judgment Good awareness of safety precautions Compliance/Behavior Easy to engage Bed Mobility 1 Bed Mobility From 1 Supine Bed Mobility Type 1 To and from Bed Mobility to 1 Edge of bed Level of Assistance 1 Contact Guard Assist Transfer 1 Transfer From 1 Sit Transfer Type 1 To and from Transfer to 1 Stand Technique 1 Sit to stand;Stand to sit Transfer Device 1 Wheeled walker Transfer Level of Assistance 1 Contact Guard Assist Ambulation 1 Distance (ft) 1 20 Surface 1 Level tile Device 1 Wheeled walker Assistance 1 Contact Guard Assist Gait: Requires assist with 1 Maintaining balance Gait: Requires verbal cues to 1 Use assistive device safely;Follow precautions/weight bearing status;Utilize appropriate gait sequencing;Improve upright posture;Increase step length Gait Deviations 1 Lora - decreased;Step length - decreased;Weight bearing through UE???s - increased RLE Assessment RLE Assessment X AROM RLE (degrees) RLE Overall AROM Deficits;Due to precautions;Due to pain LLE Assessment LLE Assessment WFL Safe Environment End of Therapy Session Safe Environment End of Therapy Session Patient left supine in bed;Bed alarm in place and activated;Sequential compressive devices on legs and activated;Call light within reach;Overbed table within reach;Bed in lowest position with wheels locked Assessment Prognosis Good Problem List Gait deviations;Decreased strength;Decreased range of motion;Decreased mobility;Orthopedic restrictions;Pain Plan Plan Plan of care initiated;If this is the last note, consider this the discharge summary Recommendation/Plan PT Recommendation/Plan (S) Home with family;Home Health PT PT Frequency during current admission Twice a day;Other (comment) (2x/day Friday through Friday, 1-2x/day Friday and Friday) Treatment/Interventions during current admission Balance Training;Bed mobility;Endurance training;Functional activity;Functional transfer training;Gait training;Parent/caregiver training and education;Range of motion;Stair training;Strengthening;Therapeutic activity;Therapeutic exercise;Transfer training PT Equipment Recommended None (pt has wheeled walker and cane at home) PT - Next Appointment 10/20/23 PT Evaluation Complete Yes Time Calculation Start Time 1339 Stop Time 1355 Time Calculation (min) 16 min Multi-Disciplinary Problems (from Physical Therapy) Active Problems Problem: PT [facility] Start Date: 10/06/23 Goal Start Date Expected End Date End Date PT [facility] 1 10/06/23 10/20/23 -- Goal Details: Pt will transfer supine<>sit independently Goal Start Date Expected End Date End Date PT [facility] 2 10/06/23 10/20/23 -- Goal Details: Pt will transfer sit<>stand with wheeled walker, independently Goal Start Date Expected End Date End Date PT [facility] - [facility] 3 10/06/23 10/20/23 -- Goal Details: Pt will ambulate 150 feet with wheeled walker, independently Goal Start Date Expected End Date End Date PT [facility] 4 10/06/23 10/20/23 -- Goal Details: Pt will ascend/descend 5 stairs with rail, independently Goal Start Date Expected End Date End Date PT LTG - [facility] 5 10/06/23 10/20/23 -- Goal Details: Pt will perform RLE TKR exercises in supine/sitting x 10 reps each, independently Manager Hi Services Utilized: NO Educated the patient to the role of physical therapy, plan of care, goals of therapy, rationale forprogressing mobility and weight bearing precautions and home safety. Patient was left with all needs met and equipment intact. Mobility and ADL status posted within medical record. documented in this encounter H&P Notes * Regi Khan DO - 10/06/2023 7:21 AM CDT Preoperative H&P visit CHIEF COMPLAINT She had concerns including Pain of the Right Knee. HISTORY OF PRESENT ILLNESS Sandy Lopez is a 58 y.o. female who was seen today. They deny any significant changes since previous exam and are looking forward to surgery today. PAST MEDICAL HISTORY She has a past medical history of Anxiety, Arthritis, Arthropathy of cervical facet joint, DDD (degenerative disc disease), cervical, Depression, Diabetes ([facility]), Dizziness, Foraminal stenosis of cervical region, GERD (gastroesophageal reflux disease), High blood pressure, Type 1 diabetes mellitus ([facility]) (08/04/2018), Uncontrolled type 2 diabetes mellitus with hyperglycemia ([facility]) (03/14/2017), andUncontrolled type 2 diabetes mellitus with hyperglycemia, with long-term current use of insulin ([facility]) (04/03/2017). PAST SURGICAL HISTORY She has a past surgical history that includes section; Knee arthroscopy; Carpal tunnel release; Elbow surgery; and Tonsillectomy. MEDICATIONS She has a current medication list which includes the following prescription(s): aspirin, pediatric multivitamin-iron, ozempic, alcohol swabs, aspirin, atorvastatin, blood sugar diagnostic, blood-glucose meter, dexcom g7 sensor, dexcom g6 transmitter, buspirone, cetirizine, cholecalciferol, citalopram, clopidogrel, cyclobenzaprine, dexcom g6 toll test desk worker, dexcom g6 transmitter, dexcom g7 sensor, empagliflozin, ergocalciferol, estradiol, ezetimibe, famotidine, fexofenadine, hydroxyzine, insulin lispro, insulin lispro, humalog, omnipod dash pods (gen 4), insulin syringe-needle u-100, losartan-hydrochlorothiazide, meclizine, medroxyprogesterone, metformin, nystatin, omnipod dash pods (gen 4), pantoprazole dr, pen needle, diabetic, pen needle, diabetic, propranolol, sumatriptan, tirzepatide, and zolpidem. ALLERGIES She is allergic to codeine, nsaids (non-steroidal anti-inflammatory drug), and ibuprofen. SOCIAL HISTORY She reports that she quit smoking about 3 years ago. Her smoking use included cigarettes. She has never used smokeless tobacco. She reports that she does not use drugs. No alcohol history on file. FAMILY HISTORY Family History Family History Problem Relation Age of Onset Heart disease Mother Hypertension Mother Diabetes Father REVIEW OF SYSTEMS Constitutional: Positive for activity change Musculoskeletal: Positive for arthralgias PHYSICAL EXAM LMP (LMP Unknown) Right knee exam: Patient has pain and crepitance with range of motion of the knee. Active and passive range of motion with 0-130 degrees of knee extension/flexion. Patient has stable varus valgus stress testing at 0 and 30?? of flexion. Patient has intact sensation in all toes and 2+ dorsalis pedis pulse. REVIEW OF X-RAYS/STUDIES/LABS Multiple x-rays of the right knee performed today independently interpreted by me shows evidence ofmild tricompartmental osteoarthritis with no sign of fracture or dislocation. Her medial compartment osteoarthritis is predominant with no significant deformity. Assessment/Plan: 1. Primary osteoarthritis of right knee - XR Knee Right 3 Views; Future We once again discussed the risks associated with surgery, in plain terms which the patient could understand, which include but are not limited to wound complications, infection, loss of sensation surrounding the incision sites, continued pain, arthrofibrosis, infection, fracture, hardware failure,leg length/rotational discrepancy, foot drop, DVT, PE, loss of function of the limb and even .We also discussed the planned intraoperative surgical strategy and planned postoperative course. Time was given to the patient to ask questions and all of their questions were answered. The patient elected to proceed with right total knee arthroplasty Patient will be an Orthopedic admit and patient will stay at least 1 night for postoperative pain control Implants: Depuy Patient will require preoperative labs and clearance from their PCP and Cardiology We will utilize Ancef IV for perioperative infection prophylaxis Chemical DVT prophylaxis: Restarting aspirin and Plavix postoperatively, the day after surgery Patient will require a polar pack postoperatively and a CPM, wheeled walker and 3:1 commode on discharge Plan is for patient to be discharged to home with home health physical therapy Regi Khan DO Orthopedic Surgeon [facility] 10/06/2023 7:23 AM documented in this encounter Consult Notes * Maureen Hardy RN - 10/06/2023 3:52 PM CDTAssociated Order(s): IP CONSULT TO REFRIGERATOR CAR ICER Sandy has and insulin pump. Pump orders entered. Consent and glucose log at bedside. Pt aware documented in this encounter Nursing Notes * Tania Merritt RN - 10/07/2023 6:10 PM CDT Reviewed discharge instructions with Sandy Lopez, and provided with a copy of the after visit summary. Questions encouraged. Patient verbalized understanding of discharge instructions, and denies additional needs. Discharge to Home via wheelchair Transported by: PCT * Carrie Daniel RN - 10/06/2023 8:20 AM CDT Silver Mepilex Dressing, Webril, Tom Wrap documented in this encounter Miscellaneous Notes * Plan of Care - Isabela Segovia LCSW - 10/07/2023 12:04 PM CDT 10/07/23 5588 Discharge Summary Discharge Disposition Home health care [facility] Contact Number [phone] Discharge Records Chart Copied Recommended Discharge Level of [facility] care Actual Discharge Level of [facility] care Does Actual Level of Care Match Care Team Recommendation? Yes Post Acute Care Plan Home Care Services Yes Type of Home Care Services Home therapies;Nurse visit Home Care Services Name and Phone Number [facility] [phone] OP Services N/A DME N/A Post Acute Care Facility N/A Discharge Additional Assistance Does the patient need discharge transport arranged? No Post Discharge Care Provider Post Discharge Care Plan DC Summary has been faxed to next level of care provider (see Follow Up Providers) Isabeal Segovia LCSW 10/07/2023 12:04 PM * Initial Assessments - Isabela Segovia LCSW - 10/07/2023 12:00 PM CDT CM Initial Assessment Interview Note Information Obtained From: Patient (10/07/231157) Admission Source: Scheduled surgery Impression: Right knee replacement with Dr. Regi Khan Plan Includes: PT/OT to eval and treat; discharge is pending therapy and pain tolerance. Primary Source of Transportation: Does the patient need discharge transport arranged?: No (10/07/23 1158) Health Insurance Coverage: Primary Coverage Payor Plan Insurance Group Employer/Plan Group [facility] Payor Plan Address Payor Plan Phone Number Payor Plan Fax Number Effective Dates ATTN: CLAIMS DEPT [phone] 02/24/2023 - None Entered [address] [facility] [address] Subscriber Name Subscriber Date Member ID SANDY LOPEZ 1965 [id number] Pharmacy: [facility] [place], [place] - [address] [facility] [id number] Primary Care Provider: Eron Holliday NP Prior to Admission: Functional Status: Independent with ADLs Primary Caregiver: Self Support System: Parent, Children Home Care Services: No Outpatient Services: No Durable Medical Equipment: Walker (wheeled) Living Arrangements: Parent Type of Residence: Private residence Steps in home?: Yes, Outside of home Number of steps outside: 5 steps Medication management: Independent (10/07/231157) SDOH: Transportation: In the past 12 months, has lack of transportation kept you from medical appointments or from getting medications?: No In the past 12 months, has lack of transportation kept you from meetings, work, or from getting things needed for daily living?: No (10/07/231158) Financial Resource: How hard is it for you to pay for the very basics like food, housing, medical care, and heating?: Not hard at all (10/07/231158) Housing: In the last 12 months, was there a time when you were not able to pay the mortgage or rent on time?: No In the past 12 months, how many times have you moved where you were living?: 0 At any time in the past 12 months, were you homeless or living in a [place] facility (including now)?: No (10/07/231199) Utilities: No, (10/07/231158) Social Connections: In a typical week, how many times do you talk on the phone with family, friends, or neighbors?: More than three times a week How often do you get together with friends or relatives?: More than three times a week How often do you attend presybeterian or scientologist services?: Never Do you belong to any clubs or organizations such as presybeterian groups, unions, fraternal or athletic groups, or school groups?: No How often do you attend meetings of the clubs or organizations you belong to?: Never Are you , , , , never , or living with a partner?: Never (10/07/231158) Food Insecurity: Within the past 12 months, you worried that your food would run out before you got the money to buymore.: Never true Within the past 12 months, the food you bought just didn't last and you didn't have money to get more.: Never true (10/07/23 1200) Potential discharge needs include: Home Health: [facility], Physical therapy (10/07/231157) Behavioral Health Services: Behavioral Health Services: No (10/07/231157) Anticipated Level of Care: Anticipated discharge level of care: Home health care Pt/Family agrees with Anticipated Level of Care: Yes (10/07/23 1158) Patient expects to be Discharged to: Home health care, (10/07/23 1158) Additional Information: Manager Cardiology met with patient at bedside to discuss discharge plans. Patient stated that she plans to return home at discharge with support from her father. Patient stated that she has a wheeled walker. Patient confirmed that a CPM had been ordered by Dr. Khan's office and delivered to the home through [facility] ( ). [employer]MER explained home health services, provided list of in-network agencies, and asked if patient hada preference to which home health company was arranged. Patient stated that she doesn't have a preference. Referrals sent via [facility]. HH packet on chart. Discharge Home With: [facility] [address] [place] [address] Ext 4 has accepted patient with start of care on 10/12/23. Patient is aware of dc plans and agency accepted. HH Orders have been completed and sent to accepting Agency. Manager Cardiology to remain available to assist as needed. Patient's Identified Problem/Goal Problem: Ensure acute medical needs are met and that patient has a safe discharge plan. Goal: Secure a discharge plan that patient/family are agreeable with and ensure patient has continuum of care. Case management will follow for discharge planning and send referrals as needed. Goals include: To assure continuity of care, To maximize coping skills, To assure patient is in a safe environment and To assure access to community resources. Plan includes: 1. Collaboration with Patient, Provider, Direct Care Nurse, Lead Massage Therapist, and other members of theHealth Care Team to assure needed interventions completed. 2. Return patient to optimal level of self-care post discharge. 3. Gas Dispatcher will follow for Discharge Planning - interventions as needed 4. Anticipated level of care at discharge 5. Planned Discharge Disposition Isabela Segovia LCSW 10/07/2023 12:03 PM * Plan of Care - Aicha Sierra RN - 10/07/2023 10:56 AM CDT Home health referral reviewed; [facility] will accept with projected SOC date 10/12/23 for SN PT. Isabela Segovia LCSW notified. Aicha Sierra RN-BSN Mail Handler Sorter [facility] [phone] * [facility] Note - Isabela Segovia LCSW - 10/07/2023 9:19 AM CDT Images from the original note were not included. Patient Information: OT Eval and Treat Last 72 Hours OT Evaluation Row Name 10/06/23 1340 Chart Reviewed Yes - Session Type Evaluation - OT Received On 10/06/23 - Safe Environment Arm band checked;Patient found in supine;Gait belt utilized for all out of bed mobility - Subjective Agreeable to Therapy - Subjective Comment I got up to try and pee earlier - Additional Pertinent History HPI: 58 yr old female presented 10/05 for scheduled R TKR. PMhx: arthritis, arthropathy of cervical facet joint, DDD, depression, DM, GERd, - Family/Caregiver Present No - Occupational Therapy-Patient Goal to go home tomorrow - OT Functional Mobility Pt found laying supine in bed. CGA supine <> EOB, utilizing LLE to manuever RLE. CGA sit <> stand, cues for safe hand placement on FWW. CGA to ambulate in room using FWW. - OT Self Care LB: Min A to thread over RLE, CGA to pull up over hips TOILETING: CGA <> in roombathroom, CGA hygiene and clothing management GROOMING: CGA dynamic standing activity using FWW forbalance as needed - OT Cognition AO4 - OT Communication intact - Type of Home House - Home Layout Able to live on main level with bedroom/bathroom;Two level - Bathroom Shower/Tub Tub/shower unit - Bathroom Toilet Standard - Home Mobility Equipment-Available Wheeled walker - Home Mobility Equipment-Currently Using None - Level of [place] Independent with ADLs;Independent functional transfers;Independent with ambulation;Independent with homemaking with ambulation - Lives With Family -KH Receives Help From Family -KH Driving Yes -KH ADL Assistance Independent -KH Instrumental ADL (IADL) Assistance Independent -KH Fall within the last 6 months No -KH Pain Assessment 0-10 - Pain Score 5 - Moderate pain -KH Pain Type Surgical pain -KH Endurance Tolerates 10 - 20 min activity with multiple rests -KH Arousal/Alertness Alert -KH Attention Span Appears intact -KH Memory Appears intact -KH Current communication Appears Intact - Orientation Oriented X4 (person, place, time, situation) -KH Following Commands Follows all commands and directions without difficulty -KH Safety Judgment Good awareness of safety precautions -KH Awareness of Errors Good awareness of errors made -KH Insight Fully aware of deficits -KH Problem Solving Able to problem solve independently -KH Compliance/Behavior Easy to engage -KH Numbness/Tingling No - Fine Motor WFL - Serial Opposition WFL - Coordination Functional -KH RUE Assessment WFL -KH LUE Assessment L -KH Safe Environment End of Therapy Session Patient left supine in bed;Sequential compressive devices on legs and activated;Call light within reach;Overbed table within reach;Bed in lowest position with wheels locked - Problem List Decreased endurance;Decreased balance;Decreased functional mobility;Decreased ADL independence;Decreased IADL independence;Pain;Gait - Barriers to Discharge Current Mobility Status;Current ADL Status - Plan Plan of care initiated - OT Recommendation Home with intermittent assist;Home Health OT - Patient at high risk for Injury due to balance deficits;Injury due to reduced functional status - OT Frequency during current admission 5-7x/wk -KH Treatment/Interventions during current admission ADL/IADL retraining;Balance Training;Bed mobility;Cognitive retraining;Compensatory technique education;Endurance training;Functional activity;Functional mobility training;Functional transfer training;Parent/caregiver training and education;Therapeutic activity;Strengthening;Therapeutic exercise;Transfer training - OT - Next Appointment 10/20/23 - OT Evaluation Complete Yes - Start Time 1340 -KH Stop Time 1400 -KH Time Calculation (min) 20 min - User Schuler (r) = Recorded By, (t) = Taken By, (c) = Cosigned By Initials Name Effective Dates Emelina Cleary OT 04/10/23 - OT Treatment No documentation. OT Notes 10/06/2023 2:40 PM Progress Notes signed by Nava, Emelina, OT , PT Eval and Treat Last 72 Hours PT Evaluation Row Name 10/06/23 6460 Chart Reviewed Yes -AZ Session Type Evaluation -AZ Safe Environment Arm band checked;Patient found in supine;Session completed bedside;Gait belt utilized for all out of bed mobility -AZ Subjective Agreeable to Therapy -AZ Additional Pertinent History Pt is s/p R TKA today. Hx includes: anxiety, OA, DDD, depression, DM, GERD, HTN -AZ Family/Caregiver Present No -AZ Physical Therapy-Patient Goal To get back home soon and back to work -AZ Precautions Bed/Chair Alarm;Fall risk -AZ Weight Bearing Restrictions Yes -AZ RLE Weight Bearing WBAT -AZ Type of Home House -AZ Home Layout One level;Work/family area in basement;Stairs with rails;Basement -AZ Home Access Stairs to enter with rails the set of two stairs have a rail. The final step is the entry into the house and patient can use doorframe -AZ Entrance Stairs-Number of Steps 2 + 2 +1 -AZ Home Mobility Equipment-Available Wheeled walker;Single point cane -AZ Home Mobility Equipment-Currently Using Single point cane -AZ Additional Comments Pt reports that she lives with her father in a single story house with basement. Pt normally resides in the basement level of the home but there is a bedroom/bathroom on the main floor of the house. 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 -AZ Endurance Tolerates 10 - 20 min activity with multiple rests -AZ Pain Assessment 0-10 -AZ Pain Score 5 - Moderate pain -AZ Patient's Stated Pain Goal No pain -AZ Pain Type Surgical pain -AZ Pain Location Knee -AZ Pain Orientation Right -AZ Arousal/Alertness Alert -AZ Attention Span Appears intact -AZ Memory Decreased recall of biographical information -AZ Current communication Appears Intact -AZ Orientation Oriented X4 (person, place, time, situation) -AZ Following Commands Follows all commands and directions without difficulty -AZ Safety Judgment Good awareness of safety precautions -AZ Compliance/Behavior Easy to engage -OK Bed Mobility From 1 Supine -AZ Bed Mobility Type 1 To and from -AZ Bed Mobility to 1 Edge of bed -OK Level of Assistance 1 Contact Guard Assist -AZ Transfer From 1 Sit -AZ Transfer Type 1 To and from -AZ Transfer to 1 Stand -AZ Technique 1 Sit to stand;Stand to sit -AZ Transfer Device 1 Wheeled walker -AZ Transfer Level of Assistance 1 Contact Guard Assist -AZ Distance (ft) 1 20 -AZ Surface 1 Level tile -AZ Device 1 Wheeled walker -AZ Assistance 1 Contact Guard Assist -AZ Gait: Requires assist with 1 Maintaining balance -AZ Gait: Requires verbal cues to 1 Use assistive device safely;Follow precautions/weight bearing status;Utilize appropriate gait sequencing;Improve upright posture;Increase step length -OK Gait Deviations 1 Lora - decreased;Step length - decreased;Weight bearing through UE???s - increased -AZ RLE Assessment X -AZ RLE Overall AROM Deficits;Due to precautions;Due to pain -OK LLE Assessment WFL -OK Safe Environment End of Therapy Session Patient left supine in bed;Bed alarm in place and activated;Sequential compressive devices on legs and activated;Call light within reach;Overbed table within reach;Bed in lowest position with wheels locked -AZ Prognosis Good -OK Problem List Gait deviations;Decreased strength;Decreased range of motion;Decreased mobility;Orthopedic restrictions;Pain -AZ Plan Plan of care initiated;If this is the last note, consider this the discharge summary -OK PT Recommendation/Plan Home with family;Home Health PT -OK PT Frequency during current admission Twice a day;Other (comment) 2x/day Friday through Friday, 1-2x/day Friday and Friday -OK Treatment/Interventions during current admission Balance Training;Bed mobility;Endurance training;Functional activity;Functional transfer training;Gait training;Parent/caregiver training and education;Range of motion;Stair training;Strengthening;Therapeutic activity;Therapeutic exercise;Transfer training -OK PT Equipment Recommended None pt has wheeled walker and cane at home -OK PT Evaluation Complete Yes -AZ Start Time 1339 -AZ Stop Time 1355 -OK Time Calculation (min) 16 min -OK User Schuler (r) = Recorded By, (t) = Taken By, (c) = Cosigned By Initials Name Effective Dates AZ Messi Castro, PT 06/28/20 - PT TREATMENT (Last 168 Hours) PT Treatment Row Name 10/06/23 1521 PT Last Visit Session Type Treatment - Safe Environment Arm band checked;Patient found in supine;Session completed bedside - Subjective Agreeable to Therapy - Subjective Comment I wish everyone would just let me sleep. Pt was agreeable to bed exercises - Precautions Precautions Bed/Chair Alarm;Fall risk - RLE Weight Bearing WBAT - Activity Tolerance Endurance Tolerates 10 - 20 min activity with multiple rests - Pain Assessment Pain Assessment 0-10 - Pain Score 5 - Moderate pain -EH Pain Type Surgical pain - Pain Location Knee - Pain Orientation Right -EH Cognition Arousal/Alertness Alert - Orientation Oriented X4 (person, place, time, situation) - Compliance/Behavior Easy to engage - Exercises Straight Leg Raise 10 -EH Quad Sets 10 -EH Heelslides 10 -EH Glute Sets 10 -EH Hip Abduction 10 -EH Ankle Pumps 10 - Supine Supine-Exercises Right;Lower extremity - Reps/Sets 10/1 - Supine-Motion AROM;AAROM - Supine-Exercise Comments Assist required with slr at end range. Pt stated she had pulling behind knee with slr. Pt able to perform all other ex's actively. - Safe Environment End of Therapy Session Safe Environment End of Therapy Session Patient left supine in bed;Bed alarm in place and activated;Sequential compressive devices on legs and activated;Call light within reach;Overbed table within reach;Bed in lowest position with wheels locked;Bed rails up per protocol - Recommendation/Plan PT Recommendation/Plan Home with family;Home Health PT - Time Calculation Start Time 1521 - Stop Time 1544 - Time Calculation (min) 23 min - User Schuler (r) = Recorded By, (t) = Taken By, (c) = Cosigned By Initials Name Effective Dates Angelica Gomez, DATA COMMUNICATIONS SOFTWARE CONSULTANT 06/29/20 - PT Notes 10/06/2023 3:53 PM Progress Notes signed by Messi Castro, PT * [facility] Note - Isabela Segovia LCSW - 10/07/2023 9:19 AM CDT Images from the original note were not included. Patient Information: Patient Header Patient Information Patient Name: SANDY LOPEZ Date of 1965 (58 years) Sex: Female Phone Numbers: Home: , Comprehensive Nursing Documentation Attending Provider: Regi Khan DO Allergies: Codeine, Nsaids (Non-steroidal Anti-inflammatory Drug), Ibuprofen Isolation: None Infection: None Code Status: FULL Ht: 165.1 cm (5' 5 ) Wt: 94 kg (207 lb 3.7 oz) Admission Cmt: None Principal Problem: Osteoarthritis of right knee [M17.11] Elopement Risk Date/Time Risk/Reason for Elopement User 10/06/23 0553 No risk [facility]RC Intake/Output 10/06/23 0700 - 10/07/23 0659 [id number] 8547-2737 Total Intake (ml) 1700 516.7 1050 3266.7 Output (ml) 150 0250 042 1302 Net (ml) 1550 -533.3 200 1216.7 Last Weight 94 kg (207 lb 3.7 oz) -- -- -- Patient Lines/Drains/Airways Status Active Airway / Central venous catheter / Drain / Epidural cathether / Intraosseous line / Peripherally inserted central catheter / Peripheral intravenous line / Arterial line Name Placement date Placement time Site Days Peripheral IV 10/06/23 20 G Anterior;Right Forearm 10/06/23 0640 Forearm 1 Active Wound Assessment Active Wound / Pressure injury / Curtis / Negative Pressure Wound / Incision Wound 10/06/23 Incision Knee Anterior;Right Right Total Knee Incision Date First Assessed 10/06/23 Site Knee Time First Assessed 0756 Days 1 Present on Original Admission: N Primary Wound Type: Incision Location Orientation: Anterior;Right Additional wound location identifiers: Right Total Knee Incision Wound Outcome: Other (comment) Surgical Site Assessments Row Name 10/06/23 2211 10/06/23 1047 10/06/23 1025 10/06/23 0955 10/06/23 0933 Dressing Status OR dressing Clean/Dry/Intact;New Clean/Dry/Intact Clean/Dry/Intact Clean/Dry/Intact;OR dressing Silver Mepilex, Webril, Tom Wrap Site Assessment JAZMINE JAZMINE JAZMINE JAZMINE -- María-wound Assessment JAZMINE JAZMINE JAZMINE JAZMINE -- Dressing Tom wrap;Dry dressing Tom wrap Tom wrap silver mepilex, webril Tom wrap webrtil. silver mepilex -- Closure -- -- -- -- Approximated;Yahir Row Name 10/06/23926 Dressing Status Clean/Dry/Intact Site Assessment JAZMINE María-wound Assessment JAZMINE Dressing Tom wrap silver mepilkex, webril Closure -- Jackson Fall Risk Flowsheet Row Most Recent Value Prior Fall Event (Autopopulated from EMR) None found ............filed at 10/06/20232210 History of Falling 0 ............filed at 10/06/20232210 Secondary Diagnosis 15 ............filed at 10/06/20232210 Ambulatory Aids 15 ............filed at 10/06/20232210 Intravenous Therapy/Heparin/Saline Lock 20 ............filed at 10/06/20232210 Gait/Transferring 10 ............filed at 10/06/20232210 Mental Status 0 ............filed at 10/06/20232210 Jackson Fall Risk Score 60 ............filed at 10/06/20232210 Vital Signs 10/05 0700 10/06 0659 10/06 0710/06 Most Recent Temp (??C) 36.2 - 37.2 36.9 36.9 (98.4) 10/06 820 Pulse 54 - 82 74 74 10/06 820 Resp 11 - 21 18 18 10/06 820 ETCO2 (mmHg) (mmHg) 45 - 48 SpO2 (%) 93 - 99 94 94 10/06 820 BP 94/63 - 165/76 129/58 129/58 10/06 820 MAP (mmHg) 73 - 104 79 79 10/06 820 Default Flowsheet Data (most recent) Endurance Tests No documentation. Nursing Nutrition None Nursing Mobility Activity 08/13 0624 Resting in bed 10/06 0540 Resting in bed 10/06 0443 Resting in bed 10/06 0337 Bathroom privileges;Ambulate in room 10/06 0217 Resting in bed 10/06 0133 Bathroom privileges;Ambulate in room 10/06 0102 Resting in bed 10/05 2331 Resting in bed 10/05 2238 Resting in bed 10/05 2231 Bathroom privileges;Ambulate in room 10/05 2100 Bathroom privileges;Ambulate in room 10/05 2057 Dangle 10/05 1900 Resting in bed 10/05 1800 Resting in bed 10/05 1700 Resting in bed 10/05 1600 Resting in bed 10/05 1500 Resting in bed 10/05 1400 Resting in bed 10/05 1300 Resting in bed 10/05 1200 Resting in bed 10/05 1124 Bathroom privileges;Stand at bedside;Dangle Patient Assistance 10/06 033 Modified independent, requires aide device or extra time 10/06 132 Modified independent, requires aide device or extra time 10/05 223 Modified independent, requires aide device or extra time 10/05 2100 Modified independent, requires aide device or extra time Assistive Device/Equipment Needed 10/06 033 Walker 10/06 0133 Walker 10/05 223 Walker 10/05 2100 Walker Ambulation Response 10/06 033 Tolerated well 10/06 013 Tolerated well 10/05 2230 Tolerated well 10/05 2100 Tolerated well Repositioned 10/06 0624 High Fowlers 10/06 0540 Left Side;Pillow support;Turn self 10/06 0443 High Fowlers 10/06 0217 Semi-fowlers 10/06 0102 Supine 10/05 2331 Right Side;Turn self 10/05 2238 Semi-fowlers 10/05 1900 Semi-fowlers;Pillow support;Turn self 10/05 1800 Pillow support;Semi-fowlers 10/05 1600 Semi-fowlers;Pillow support 10/05 1400 Semi-fowlers 10/05 1200 Semi-fowlers Head of Bed Elevated 10/06 0624 HOB 45 10/06 0540 HOB 30 10/06 0443 HOB 45 10/06 0217 HOB 30 10/06 0102 HOB 30 10/05 2331 HOB 30 10/05 2238 HOB 30 10/05 1900 HOB 30 10/05 1800 HOB 45 08/12 1700 HOB 30 10/05 1600 HOB 30 / 1500 HOB 30 10/05 1400 HOB 30 10/05 1300 HOB 30 10/05 1200 HOB 30 10/05 1025 HOB 30 10/05 0955 HOB 30 10/05 0927 HOB 30 Heels/Feet 10/06 0624 Foot of bed elevated 10/06 0443 Foot of bed elevated 10/06 0217 Foot of bed elevated 10/06 0102 Foot of bed elevated 10/05 2331 Heels elevated off bed 10/05 2238 Foot of bed elevated 10/05 1900 Heels elevated off bed 10/05 1800 Foot of bed elevated 10/05 1600 Foot of bed elevated 10/05 1400 Foot of bed elevated 10/05 1200 Foot of bed elevated Type of Device 10/06 0443 Mechanical compression 10/05 2211 Mechanical compression 10/05 1124 Mechanical compression 10/05 1025 Mechanical compression 10/05 0955 Mechanical compression 10/05 0927 Mechanical compression Anti-Embolism Site 10/05 1124 Bilateral Anti-Embolism Status 10/05 1124 On Mechanical Compression Site 10/06 0443 Bilateral 10/05 2211 Bilateral 10/05 1124 Bilateral Mechanical Compression Type 10/06 0443 Foot pump 10/05 2211 Foot pump 10/05 1124 Foot pump Mechanical Compression Status 10/06 0443 Refused 10/05 2211 On 10/05 1124 On , Meds and Admin Active Only All Meds/Most Recent Administrations ceFAZolin (ANCEF) 2,000 mg/20 mL in sterile water (premix) 2,000 mg [[id number]] Ordering Provider: Regi Khan DO Status: Completed (Past End Date/Time) Ordered On: 10/06/23526 Starts/Ends: 10/06/23 0600 - 10/06/23 0751 Ordered Dose (Remaining/Total): 2,000 mg (0/1) Route: intravenous Frequency: Once Ordered Rate/Order Duration: 400 mL/hr / 3 Minutes Admin Instructions: Administer within 60 minutes of incision. Timestamps Action Dose Route Other Information 10/06/23 0751 Given 2,000 mg intravenous Performed by: Cheyenne Bateman CRNA acetaminophen (TYLENOL) tablet 975 mg [[id number]] Ordering Provider: Almita Ramirez NP Status: Completed (Past End Date/Time) Ordered On: 10/06/23526 Starts/Ends: 10/06/23 0600 - 10/06/23 0558 Ordered Dose (Remaining/Total): 975 mg (0/1) Route: oral Frequency: Once Ordered Rate/Order Duration: -- / -- Timestamps Action Dose Route Other Information 10/06/23 0558 Given 975 mg oral Performed by: Elvira Reis RN Scanned Package: [id number], [id number], 04814-725-07 Lactated Ringer's (LR) infusion [[id number]] Ordering Provider: Olayinka Zayas MD Status: Verified Ordered On: 10/06/23922 Start: 10/06/23 1000 Ordered Dose (Remaining/Total): 125 mL/hr (--/--) Route: intravenous Frequency: Continuous Ordered Rate/Order Duration: 125 mL/hr / -- Line Med Link Info Comment Peripheral IV 10/06/23 20 G Anterior;Right Forearm 10/06/23 112 by Tania Merritt RN -- (No admins scheduled or recorded for this medication) busPIRone (BUSPAR) tablet 5 mg [[id number]] Ordering Provider: Regi Khan DO Status: Dispensed Ordered On: 10/06/231122 Start: 10/06/23 2100 Ordered Dose (Remaining/Total): 5 mg (--/--) Route: oral Frequency: 2 times daily Ordered Rate/Order Duration: -- / -- Timestamps Action Dose Route Other Information 10/07/23 0857 Given 5 mg oral Performed by: Tania Merritt RN Scanned Package: [id number] clopidogreL (PLAVIX) tablet 75 mg [[id number]] Ordering Provider: Regi Khan DO Status: Dispensed Ordered On: 10/06/231122 Start: 10/06/23 1200 Ordered Dose (Remaining/Total): 75 mg (--/--) Route: oral Frequency: Daily Ordered Rate/Order Duration: -- / -- Timestamps Action Dose Route Other Information 10/07/23 0858 Given 75 mg oral Performed by: Tania Merritt RN Scanned Package: [id number] ezetimibe (ZETIA) tablet 10 mg [[id number]] Ordering Provider: Regi Khan DO Status: Dispensed Ordered On: 10/06/231122 Start: 10/07/23 0900 Ordered Dose (Remaining/Total): 10 mg (--/--) Route: oral Frequency: Daily Ordered Rate/Order Duration: -- / -- Timestamps Action Dose Route Other Information 10/07/23 0857 Given 10 mg oral Performed by: Tania Merritt RN Scanned Package: [id number] famotidine (PEPCID) tablet 20 mg [[id number]] Ordering Provider: Regi Khan DO Status: Dispensed Ordered On: 10/06/231122 Start: 10/06/23 2100 Ordered Dose (Remaining/Total): 20 mg (--/--) Route: oral Frequency: 2 times daily Ordered Rate/Order Duration: -- / -- Timestamps Action Dose Route Other Information 10/07/23 0856 Given 20 mg oral Performed by: Tania Merritt RN Scanned Package: [id number] losartan (COZAAR) tablet 100 mg [[id number]] Ordering Provider: Regi Khan DO Status: Dispensed Ordered On: 10/06/231122 Start: 10/06/23 1200 Ordered Dose (Remaining/Total): 100 mg (--/--) Route: oral Frequency: Daily Ordered Rate/Order Duration: -- / -- Timestamps Action Dose Route Other Information 10/07/23 0856 Given 100 mg oral Performed by: Tania Merritt RN Scanned Package: [id number] hydroCHLOROthiazide (HYDRODIURIL) tablet 12.5 mg [[id number]] Ordering Provider: Regi Khan DO Status: Dispensed Ordered On: 10/06/231122 Start: 10/06/23 1200 Ordered Dose (Remaining/Total): 12.5 mg (--/--) Route: oral Frequency: Daily Ordered Rate/Order Duration: -- / -- Timestamps Action Dose Route Other Information 10/07/23 0856 Given 12.5 mg oral Performed by: Tania Merritt RN Scanned Package: [id number] meclizine (ANTIVERT) tablet 25 mg [[id number]] Ordering Provider: Regi Khan DO Status: Verified Ordered On: 10/06/231122 Start: 10/06/23 121 Ordered Dose (Remaining/Total): 25 mg (--/--) Route: oral Frequency: Daily PRN Ordered Rate/Order Duration: -- / -- (No admins scheduled or recorded for this medication) propranoloL (INDERAL) tablet 20 mg [[id number]] On hold since yesterday at 1226 until manually unheld; held by Yoan Edwards PAHold Reason: Change in Patient Status Ordering Provider: Regi Khan DO Status: Verified Ordered On: 10/06/231122 Start: 10/06/23 1200 Ordered Dose (Remaining/Total): 20 mg (--/--) Route: oral Frequency: 2 times daily Ordered Rate/Order Duration: -- / -- (No admins scheduled or recorded for this medication) SUMAtriptan (IMITREX) tablet 50 mg [[id number]] Ordering Provider: Regi Khan DO Status: Verified Ordered On: 10/06/231122 Start: 10/06/231122 Ordered Dose (Remaining/Total): 50 mg (--/--) Route: oral Frequency: Once as needed Ordered Rate/Order Duration: -- / -- Admin Instructions: May repeat dose once in 2 hours if unresolved. Do not exceed 200 mg in 24 hours. (No admins scheduled or recorded for this medication) zolpidem (AMBIEN) tablet 5 mg [[id number]] Ordering Provider: Regi Khan DO Status: Verified Ordered On: 10/06/231122 Start: 10/06/231122 Ordered Dose (Remaining/Total): 5 mg (--/--) Route: oral Frequency: Nightly PRN Ordered Rate/Order Duration: -- / -- (No admins scheduled or recorded for this medication) aspirin enteric coated tablet 81 mg [[id number]] Ordering Provider: Regi Khan DO Status: Dispensed Ordered On: 10/06/231122 Start: 10/07/23 0900 Ordered Dose (Remaining/Total): 81 mg (--/--) Route: oral Frequency: Daily Ordered Rate/Order Duration: -- / -- Admin Instructions: Do not crush, chew, cut, dissolve, open or otherwise manipulate tablet/capsule. Timestamps Action Dose Route Other Information 10/07/23 0856 Given 81 mg oral Performed by: Tania Merritt RN Scanned Package: [id number] sodium chloride 0.9% flush 0.5-20 mL [[id number]] Ordering Provider: Regi Khan DO Status: Verified Ordered On: 10/06/231122 Start: 10/06/23 1400 Ordered Dose (Remaining/Total): 0.5-20 mL (--/--) Route: intra-catheter Frequency: Every 8 hours scheduled Ordered Rate/Order Duration: -- / -- Admin Instructions: Flush volume based on line type and size. Timestamps Action Dose Route Other Information 10/06/23 2212 Given 10 mL intra-catheter Performed by: Deborah Ortiz RN Scanned Package: [id number] sodium chloride 0.9% flush 0.5-20 mL [[id number]] Ordering Provider: Regi Khan DO Status: Verified Ordered On: 10/06/231122 Start: 10/06/231122 Ordered Dose (Remaining/Total): 0.5-20 mL (--/--) Route: intra-catheter Frequency: As needed Ordered Rate/Order Duration: -- / -- Admin Instructions: Flush volume based on line type and size. Flush before and after each use. (No admins scheduled or recorded for this medication) Lactated Ringer's (LR) infusion [[id number]] Ordering Provider: Regi Khan DO Status: Dispensed Ordered On: 10/06/231122 Start: 10/06/23 1200 Ordered Dose (Remaining/Total): 100 mL/hr (--/--) Route: intravenous Frequency: Continuous Ordered Rate/Order Duration: 100 mL/hr / -- Admin Instructions: For at least 24 hours, then reduce to 40 ml/hr when tolerating PO fluids. Discontinue IV when antibiotics are complete and taking PO fluids well. Line Med Link Info Comment Peripheral IV 10/06/23 20 G Anterior;Right Forearm 10/06/23 1130 by Tania Merritt RN -- Timestamps Action Dose / Rate Route Other Information 10/06/23 1640 Rate/Dose Verify 100 mL/hr 100 mL/hr intravenous Performed by: Tania Merritt RN ceFAZolin (ANCEF) 2,000 mg/20 mL in sterile water (premix) 2,000 mg [[id number]] Ordering Provider: Regi Khan DO Status: Completed (Past End Date/Time) Ordered On: 10/06/23 1123 Starts/Ends: 10/06/23 1600 - 10/06/23 2334 Ordered Dose (Remaining/Total): 2,000 mg (0/2) Route: intravenous Frequency: Every 8 hours Ordered Rate/Order Duration: 400 mL/hr / 3 Minutes Admin Instructions: Beginning 8 hours after last maría-operative dose. Line Med Link Info Comment Peripheral IV 10/06/23 20 G Anterior;Right Forearm 10/06/23 1652 by Tania Merritt RN -- Timestamps Action Dose / Rate / Duration Route Other Information 10/06/23 2331 Given 2,000 mg 400 mL/hr 3 Minutes intravenous Performed by: Deborah Ortiz RN Scanned Package: [id number], [id number] acetaminophen (TYLENOL) tablet 975 mg [[id number]] Ordering Provider: Regi Khan DO Status: Dispensed Ordered On: 10/06/23 112 Start: 10/06/23 1500 Ordered Dose (Remaining/Total): 975 mg (--/--) Route: oral Frequency: Every 6 hours scheduled Ordered Rate/Order Duration: -- / -- Timestamps Action Dose Route Other Information 10/07/23 0857 Given 975 mg oral Performed by: Tania Merritt RN Scanned Package: [id number], 75002-658-95, 53119-032-23 oxyCODONE (ROXICODONE) tablet 5 mg [[id number]] Ordering Provider: Regi Khan DO Status: Dispensed Ordered On: 10/06/231122 Start: 10/06/231122 Ordered Dose (Remaining/Total): 5 mg (--/--) Route: oral Frequency: Every 4 hours PRN Ordered Rate/Order Duration: -- / -- Admin Instructions: May repeat in 1 hour if pain is uncontrolled or increasing. Max 2 doses within 1 dosing interval. Timestamps Action Dose Route Other Information 10/07/23 0720 Given 5 mg oral Performed by: Deborah Ortiz RN Scanned Package: [id number] HYDROmorphone (DILAUDID) injection 0.2 mg [[id number]] Ordering Provider: Regi Khan DO Status: Dispensed Ordered On: 10/06/231122 Start: 10/06/231122 Ordered Dose (Remaining/Total): 0.2 mg (--/--) Route: intravenous Frequency: Every 4 hours PRN Ordered Rate/Order Duration: -- / 2 Minutes Admin Instructions: May administer 1 hour after second dose of 1st line analgesic agent for uncontrolled or increasing pain. Line Med Link Info Comment Peripheral IV 10/06/23 20 G Anterior;Right Forearm 10/07/23 0341 by Deborah Ortiz RN -- Timestamps Action Dose / Duration Route Other Information 10/07/23 034 Given 0.2 mg 2 Minutes intravenous Performed by: Deborah Ortiz RN Scanned Package: [id number] ondansetron (ZOFRAN) injection 4 mg [[id number]] Ordering Provider: Regi Khan DO Status: Verified Ordered On: 10/06/231122 Start: 10/06/231122 Ordered Dose (Remaining/Total): 4 mg (--/--) Route: intravenous Frequency: Every 6 hours PRN Ordered Rate/Order Duration: -- / 2 Minutes Admin Instructions: Proceed to prochlorperazine if no relief within 30 minutes. (No admins scheduled or recorded for this medication) polyethylene glycol (MIRALAX) packet 17 g [[id number]] Ordering Provider: Regi Khan DO Status: Verified Ordered On: 10/06/231122 Start: 10/06/23 1200 Ordered Dose (Remaining/Total): 17 g (--/--) Route: oral Frequency: Daily Ordered Rate/Order Duration: -- / -- Admin Instructions: Hold for diarrhea. (No admins scheduled or recorded for this medication) docusate sodium (COLACE) capsule 100 mg [[id number]] Ordering Provider: Regi Khan DO Status: Dispensed Ordered On: 10/06/231122 Start: 10/06/23 1200 Ordered Dose (Remaining/Total): 100 mg (--/--) Route: oral Frequency: 2 times daily Ordered Rate/Order Duration: -- / -- Admin Instructions: Hold for diarrhea Timestamps Action Dose Route Other Information 10/07/23 0857 Given 100 mg oral Performed by: Tania Merritt RN Scanned Package: [id number] bisacodyL (DULCOLAX) suppository 10 mg [[id number]] Ordering Provider: Regi Khan DO Status: Verified Ordered On: 10/06/231122 Start: 10/06/231122 Ordered Dose (Remaining/Total): 10 mg (--/--) Route: rectal Frequency: Daily PRN Ordered Rate/Order Duration: -- / -- (No admins scheduled or recorded for this medication) calcium carbonate (TUMS) chewable tablet 1,000 mg [[id number]] Ordering Provider: Regi Khan DO Status: Dispensed Ordered On: 10/06/231122 Start: 10/06/23 1200 Ordered Dose (Remaining/Total): 400 mg of elemental calcium (--/--) Route: oral Frequency: 2 times daily Ordered Rate/Order Duration: -- / -- Timestamps Action Dose Route Other Information 10/07/23 0858 Given 1,000 mg oral Performed by: Tania Merritt RN Scanned Package: [id number], [id number] benzocaine-menthoL (CHLORASEPTIC) lozenge 1 lozenge [[id number]] Ordering Provider: Regi Khan DO Status: Dispensed Ordered On: 10/06/231122 Start: 10/06/231122 Ordered Dose (Remaining/Total): 1 lozenge (--/--) Route: mouth/throat Frequency: Every 4 hours PRN Ordered Rate/Order Duration: -- / -- Timestamps Action Dose Route Other Information 10/07/23 0846 Given 1 lozenge mouth/throat Performed by: Tania Merritt RN Scanned Package: [id number] dextrose (GLUTOSE) 40 % gel 15 g [[id number]] Ordering Provider: Regi Khan DO Status: Verified Ordered On: 10/06/231122 Start: 10/06/231122 Ordered Dose (Remaining/Total): 15 g (--/--) Route: oral Frequency: Every 15 min PRN Ordered Rate/Order Duration: -- / -- Admin Instructions: If patient is alert and able to eat/drink, give 15 gm glucose or one juice (4 fluid ounces) NOT ORANGE JUICE. After treatment for hypoglycemia, recheck BG followed by treatment every 15 minutes until the BG is greater than 100 mg/dL. Then check BG 1 hour post-treatment. If BG isless than 100 mg/dL, repeat Q15 minute BG checks and treatment. Call MD for each episode of hypoglycemia. UTILITY TENDER CARDING STATES GLUTOSE-15 CONTAINS GLUCOSE 40% W/W (50% W/V) (No admins scheduled or recorded for this medication) dextrose (D10W) 10% bolus 250 mL [[id number]] Ordering Provider: Regi Khan DO Status: Verified Ordered On: 10/06/231122 Start: 10/06/231122 Ordered Dose (Remaining/Total): 250 mL (--/--) Route: intravenous Frequency: Every 15 min PRN Ordered Rate/Order Duration: 1,000 mL/hr / 15 Minutes Admin Instructions: After treatment for hypoglycemia, recheck BG followed by treatment every 15 minutes until the BG is greater than 100 mg/dL. Then check BG 1 hour post treatment. If BG is less qdgi189 mg/dL, repeat Q15 minute BG checks and treatment. Call MD for each episode of hypoglycemia. (No admins scheduled or recorded for this medication) glucagon injection 1 mg [[id number]] Ordering Provider: Regi Khan DO Status: Verified Ordered On: 10/06/231122 Start: 10/06/231122 Ordered Dose (Remaining/Total): 1 mg (--/--) Route: intramuscular Frequency: Every 30 min PRN Ordered Rate/Order Duration: -- / -- Admin Instructions: After Glucagon is administered, position patient on side if possible to avoid aspiration. Obtain IV access. Follow glucagon treatment with glucose treatment or IV dextrose. After treatment for hypoglycemia, recheck BG followed by treatment every 15 minutes until the BG isgreater than 100 mg/dL. Then check BG 1 hour post treatment. If BG is less than 100 mg/dL, repeat Q15 minute BG checks and treatment. Call MD for each episode of hypoglycemia. Reconstitute 1 mg vial with 1 mL SWFI. Use immediately following reconstitution. (No admins scheduled or recorded for this medication) escitalopram (LEXAPRO) tablet 15 mg [[id number]] Ordering Provider: Regi Khan DO Status: Dispensed Ordered On: 10/06/23 1435 Start: 10/07/23 0900 Ordered Dose (Remaining/Total): 15 mg (--/--) Route: oral Frequency: Daily Ordered Rate/Order Duration: -- / -- Timestamps Action Dose Route Other Information 10/07/23 0856 Given 15 mg oral Performed by: Tania Merritt RN Scanned Package: [id number], [id number] insulin lispro (HumaLOG, ADMELOG) 100 unit/mL injection 9 Units [[id number]] Ordering Provider: Regi Khan DO Status: Verified Ordered On: 10/06/23 145 Start: 10/06/23 1450 Ordered Dose (Remaining/Total): 9 Units (--/--) Route: subcutaneous Frequency: As needed Ordered Rate/Order Duration: -- / -- Admin Instructions: Administer back up dose if insulin pump is not functional. Call MD for alternate insulin regimen. (No admins scheduled or recorded for this medication) INSULIN SUBCUTANEOUS PUMP insulin lispro (HumaLOG) 100 UNIT/ML patient supplied pump 0-25 Units [[id number]] Ordering Provider: Regi Khan DO Status: Verified Ordered On: 10/06/23 1451 Start: 10/06/23 1530 Ordered Dose (Remaining/Total): 0-25 Units (--/--) Route: subcutaneous Frequency: Continuous Ordered Rate/Order Duration: -- / -- Admin Instructions: Current pump settings will remain until a member of the Endocrine team, Maternal- Medicine (if applicable), or designee evaluates the patient and/or adjusts the pump settings. Note to pharmacy: Pharmacist enter and dispense a one-time order when RN requests a refill. Question Answer Comment Attestation:: Possesses no safety concerns (eg. diagnosis of DKA/HHS, admit to ICU, risk of self harm) -- Attestation: Possesses visual acuity and fine motor skills to operate pump -- Attestation:: Alert and oriented x 4 -- Attestation:: Verbalizes desire to remain on insulin pump during hospitalization and understands insulin pump agreement -- Insulin Pump:: Insulin Pump Settings -- Insulin Pump Settings:: Basal Rate -- -- Carbohydrate Ratio -- -- High Glucose Correction -- Basal Rate (units/hr):: 2.55 -- From (hh:mm):: 12:00 AM -- To (hh:mm):: 4:00 AM -- Basal Rate (units/hr):: 2.6 -- From (hh:mm):: 4:01 AM -- To (hh:mm):: 11:59 AM -- Carbohydrate Ratio: 1 unit per how many gm carbohydrate: 6 -- From: (hh:mm): 12:00 AM -- To:(hh:mm): 11:59 PM -- High Glucose Correction: 1 unit per how many mg/dL over target: 20 -- From:(hh:mm): 12:00 AM -- To:(hh:mm): 11:59 PM -- Choose Target (mg/dL):: 110 -- Timestamps Action Dose Route / Site Other Information 10/06/23 1813 Self Administered Via Pump 2.6 Units subcutaneous Left Lower Abdomen Performed by: Tania Merritt RN * Plan of Care - Deborah Ortiz, SARA - 10/07/2023 7:00 AM CDT Goals: Clinical Goals for the Shift: pain control; void without difficulty; sleep [employer] Relations [employer] Marketing Patient Centered Goal for Treatment: discharge to home Summary: Pt in more pain this morning; repeat oxycodone doses needed as well as one time IV dilaudid. No neuro deficits and pt up SBA with walker. Pt voiding without difficulty. Pt controlled insulinpump without issue. Problem: Discharge Planning Goal: Understanding discharge needs will improve Outcome: Ongoing Flowsheets (Taken 10/07/2023599) Understanding of discharge needs will improve: Collaborate with case management interdisciplinary team Identify discharge learning needs (meds, wound care, etc.) Problem: Lack of Knowledge Goal: Ability to develop a pain control plan will improve Outcome: Ongoing Flowsheets (Taken 10/07/2023599) Ability to develop a pain control plan will improve: Explain causes of pain and how long pain can be expected to last Teach information regarding pain management Educate pain scale for assessing level of pain Teach notification to healthcare provider of episodes of pain Problem: Medication Goal: Satisfaction with pain management medication regimen will improve Outcome: Ongoing Flowsheets (Taken 10/07/2023599) Satisfaction with pain management medication regimen will improve: Assess satisfaction with pain management regimen Evaluate medication effects Manage analgesics Report inadequate pain control to healthcare provider Provide administration of medications prior to painful activities Problem: Sensory Goal: Ability to identify factors that increase pain levels will improve while working to decrease the patient's pain levels Outcome: Ongoing Flowsheets (Taken 10/07/2023599) Ability to identify factors that increase pain levels will improve while working to decrease patients pain levels: Assess pain status Observe non-verbal cues of discomfort, such as restlessness, muscle tension, or altered vital signs Explore factors that precipitate, worsens, or relieves pain or discomfort Evaluate treatment plan for related conditions Explore and collaborate with complimentary and alternative therapies Assess effects of pain control measures Problem: Coping Goal: Ability to cope will improve Outcome: Ongoing Flowsheets (Taken 10/07/2023599) Ability to cope will Improve: Encourage vebalization of feelings surrounding pain Problem: Health Behavior Goal: Identification of resources available to assist in meeting health care needs will improve Outcome: Ongoing Flowsheets (Taken 10/07/2023599) Identification of resources available to assist in meeting health care needs will improve: Collaborate with all therapies Problem: Fall Risk Goal: Ability to state ways to decrease the risk of falls will improve Outcome: Ongoing Flowsheets (Taken 10/07/2023599) Ability to state ways to decrease the risk of falls will improve: Teach fall prevention measures Teach information regarding appropriate enviornmental changes Goal: Will remain free from falls Outcome: Ongoing Flowsheets (Taken 10/07/2023599) Will remain free from falls: Assess risk factors for falls Implement fall prevention measures Collaborate with other disciplines Goal: Will remain free from injury from falls Outcome: Ongoing Flowsheets (Taken 10/07/2023599) Will remain free from injury from falls: Provide safe environment for conduction of activities of daily living in hospital environment Problem: Lack of Knowledge Goal: Ability to describe self care measures that may prevent or decrease complications related to Type 2 Diabetes will improve Outcome: Ongoing Flowsheets (Taken 10/07/2023599) Ability to describe self care measures that may prevent or decrease complications related to Type 2Diabetes will improve: Teach blood glucose measurement Teach signs and symptoms of hyperglycemia Teach signs and symptoms of hypoglycemia Teach risks of complications of diabetes Discuss diabetic foot care Problem: Cardiovascular Goal: Absence of cardiac dysrhythmias or at baseline Outcome: Ongoing Problem: Skin/Tissue Integrity Goal: Skin integrity remains intact Outcome: Ongoing Flowsheets (Taken 10/07/2023601) Skin integrity remains intact: Assess and document risk factors for pressure injury development Assess and document skin integrity Monitor for areas of redness and/or skin breakdown Goal: Incisions, wounds, or drain sites healing without S/S of infection Outcome: Ongoing Flowsheets (Taken 10/07/2023601) Incision(s), Wound(s) or Drain Site(s) healing without S/S of infection: Assess and document risk factors for pressure injury development Assess and document skin integrity Implement wound care per orders Assess and document dressing/incision, wound bed, drain sites and surrounding tissue Problem: Musculoskeletal Goal: Return mobility to safest level of function Outcome: Ongoing Flowsheets (Taken 10/07/2023601) Return mobility to safest level of function: Assess patient stability and activity tolerance for standing, transferring and ambulating with or without assistive devices Assist with transfers and ambulation using safe patient handling equipment as needed Ensure adequate protection for wounds/incisions during mobilization Obtain PT/OT consults as needed Instruct patient/family in ordered activity level Goal: Maintain proper alignment of affected body part Outcome: Ongoing Flowsheets (Taken 10/07/2023601) Maintain proper alignment of affected body part: Support and protect limb and body alignment per provider's orders Instruct and reinforce with patient and family use of appropriate assistive device and precautions (e.g. spinal or hip dislocation precautions) Goal: Return ADL status to a safe level of function Outcome: Ongoing Flowsheets (Taken 10/07/2023 0602) Return activities of daily living status to a safe level of function: Assess patient's activities of daily living deficits and provide assistive devices as needed Obtain PT/OT consults as needed Assist and instruct patient to increase activity and self care Goal: Mobility, ROM and muscle strength will improve Outcome: Ongoing Flowsheets (Taken 10/07/2023 0602) Mobility, ROM and muscle strength will improve: Encourage mobilization to extent of ability * Plan of Care - Tania Merritt RN - 10/06/2023 6:08 PM CDT Goals: Clinical Goals for the Shift: safety and pain control Shelter Patient Centered Goal for Treatment: discharge to home Problem: Discharge Planning Goal: Understanding discharge needs will improve Outcome: Progressing Flowsheets (Taken 10/06/2023 1208) Understanding of discharge needs will improve: Discuss information regarding discharge instructions Identify discharge barriers Problem: Lack of Knowledge Goal: Ability to develop a pain control plan will improve Outcome: Progressing Flowsheets (Taken 10/06/2023 1208) Ability to develop a pain control plan will improve: Explain causes of pain and how long pain can be expected to last Teach information regarding pain management Educate pain scale for assessing level of pain Teach notification to healthcare provider of episodes of pain Problem: Medication Goal: Satisfaction with pain management medication regimen will improve Outcome: Progressing Flowsheets (Taken 10/06/2023 1208) Satisfaction with pain management medication regimen will improve: Assess satisfaction with pain management regimen Evaluate medication effects Report inadequate pain control to healthcare provider Monitor patient controlled analgesia or anesthesia Problem: Sensory Goal: Ability to identify factors that increase pain levels will improve while working to decrease the patient's pain levels Outcome: Progressing Flowsheets (Taken 10/06/2023 1208) Ability to identify factors that increase pain levels will improve while working to decrease patients pain levels: Assess pain status Observe non-verbal cues of discomfort, such as restlessness, muscle tension, or altered vital signs Explore factors that precipitate, worsens, or relieves pain or discomfort Encourage distraction activities Assess effects of pain control measures Evaluate treatment plan for related conditions Explore alternative treatments for pain from the patient's culture Problem: Coping Goal: Ability to cope will improve Outcome: Progressing Flowsheets (Taken 10/06/2023 1208) Ability to cope will Improve: Encourage vebalization of feelings surrounding pain Provide emotional support Problem: Health Behavior Goal: Identification of resources available to assist in meeting health care needs will improve Outcome: Progressing Flowsheets (Taken 10/06/2023 1208) Identification of resources available to assist in meeting health care needs will improve: Collaborate with all therapies Problem: Fall Risk Goal: Ability to state ways to decrease the risk of falls will improve Outcome: Progressing Flowsheets (Taken 10/06/2023 1208) Ability to state ways to decrease the risk of falls will improve: Teach fall prevention measures Teach information regarding appropriate enviornmental changes Goal: Will remain free from falls Outcome: Progressing Flowsheets (Taken 10/06/2023 1208) Will remain free from falls: Assess risk factors for falls Implement fall prevention measures Collaborate with other disciplines Goal: Will remain free from injury from falls Outcome: Progressing Flowsheets (Taken 10/06/2023 1208) Will remain free from injury from falls: Provide safe environment for conduction of activities of daily living in hospital environment * Op Note - Regi Khan DO - 10/06/2023 9:32 AM CDT NAME: Sandy Lopez DATE OF : 1965 CONTACT SERIAL NUMBER: [id number] PRIMARY CARE PHYSICIAN: Eron Holliday NP PROCEDURE DATE: October 06, 2023 Pre-op Diagnosis * Primary osteoarthritis of right knee [M17.11] Post-op Diagnosis * Primary osteoarthritis of right knee [M17.11] Procedure(s) (LRB): RIGHT TOTAL KNEE ARTHROPLASTY (Right) PROCEDURE LOCATION: [facility] OPERATING ROOM 06 SURGEON: Surgeons and Role: * Regi Khan DO - Primary ASSISTANTS: Tunnel Kiln Repairer: Carrie Daniel RN Physician Cutter And Edge Trimmer: Yoan Edwards PA Scrub: Marcial De La Garza RN ANESTHESIOLOGIST/PHYSICIAN: Fredy, Jose R L., CRNFA ANESTHESIA: Anesthesiologist: Olayinka Zayas MD [facility] PARTNER: Cheyenne Bateman CRNA ANESTHESIA TYPE: General PROPHYLACTIC IV ANTIBIOTICS: IV Ancef COMPLICATIONS: None apparent at the end of the case FINDINGS: Severe end stage tricompartmental knee osteoarthritis SPECIMENS: None EBL: 25 mL TOURNIQUET TIME: Not utilized Physician physician assistant Yoan Edwards was required throughout the case, including preoperatively and postoperatively for their specific skills set with patient positioning, skilled retraction, manipulation of the operative extremity, retraction of tissues and closure. Due to the complexity of the case, the skill set of an orthopedic physician physician assistant was needed throughout the case. No other qualified assistants were available for the case and their assistance was critical to completion of the case in a safe, timely and effective manner. IMPLANTS: Implant Name Type Inv. Item Serial No. Tombstone Setter Lot No. LRB No. Used Action [employer] Attune Cruciate Retain Cementless Knee Right 5 Narrow Component [id number] - [id number] [employer] Attune Cruciate Retain Cementless Knee Right 5 Narrow Component [id number] [employer] [id number] Right 1 Implanted [employer] Attune 35mm Cemented Medialize Knee Dome Patellar Aox Sterile [id number] - [id number] [employer] Attune 35mm Cemented Medialize Knee Dome Patellar Aox Sterile [id number] [employer] [id number] Right 1 Implanted [employer] ATTUNE FB TIB BASE SZ 5 POR [id number] - [id number] [employer] ATTUNE FB TIB BASE SZ 5 POR [id number] [employer] [id number] Right 1 Implanted [employer] Cmw 2 Fast Set Cement 20gm Bone Sterile 3322-020 - [id number] [employer] Cmw 2 Fast Set Cement 20gm Bone Sterile 3322- 020 [employer] [id number] Right 1 Implanted [employer] Insert Tibial Knee Fixed Rm Posterior Stabilized Attune 6mm Size 5 Polyethylene [id number] - [id number] [employer] Insert Tibial Knee Fixed Rm Posterior Stabilized Attune 6mm Size 5 Polyethylene [id number] [employer] [id number] Right 1 Implanted 1. DePuy Attune CR Cementless femur 2. DePuy Attune Affixium Cementless Fixed Bearing Tibia 3. DePuy Medialized Dome Patella 4. DePuy Medially Stabilized Highly Crossed Linked Polyethylene Component INDICATIONS/CONSENT: The patient has severe end-stage osteoarthritis of the knee confirmed by preoperative imaging and physical exam which has failed extensive conservative treatment. See the preoperative clinical notes for complete details. After reviewing the risks, benefits, likely outcome, and potential complications of the procedure a preoperative verbal and written consent was obtained. The operative site was marked by myself in the holding area after confirming with the patient and the surgical consent form.The operative procedure and expected postoperative course were discussed with the patient in detailand their questions were answered to the best of my ability. They elected to proceed with total knee replacement surgery. A preoperative surgical checklist was performed and the correct surgical site was confirmed using the written consent, history, imaging, and physical examination. A postoperative surgical checklist was also completed at the end of the procedure. DESCRIPTION OF PROCEDURE: The patient was brought to the operating room and transferred to the operating table. After anesthesia was obtained the patient was positioned supine on the operating table. An adductor canal block had been placed previously in the preop area by anesthesia. A bump was placed under the hip on the operative side. All bony prominences were padded during positioning and maintained throughout the duration of the procedure. Leg positioners were placed on the table in appropriate position. An SCD was placed on the non-operative extremity and confirmed to be operational. A non-sterile tourniquet was placed on the operative thigh and the operative extremity was then sterilely prepped and draped in standard orthopaedic fashion. A surgical timeout was then performed according to [facility] protocol identifying the correct patient, surgical procedure, surgical site, allergies, and administration of appropriate preoperative antibiotics. When everyone present in the room was in agreement we began the procedure. 1 g of tranexamic acid IV was started at the beginning of the case and a 2nd dose of 1 g of tranexamic acid IV was administered during closure. APPROACH: A midline anterior surgical incision was marked extending from 2-3 fingerbreadths proximal to the superior pole of the patella to the medial aspect of the tibial tubercle. A skin knife was used to make the incision with the knee in approximately 60 degrees of flexion and was taken down to the fascia. The knee was then placed in extension and a full thickness medial flap was created in order to identify the vastus medialis. A smaller full thickness lateral skin flap was also created. The knee was then flexed up and soft tissue was cleared to clearly see the VMO insertion for the proximal arthrotomy. Bovie electrocautery was used to make a medial parapatellar arthrotomy extending to the inferior pole of the patella. A cuff was left along the medial aspect of the patella for later closure. The knee was placed back into extension. The bovie was used to complete the arthrotomy to the medial aspect of the tubercle. The medial capsule and meniscus was placed on tension and a medial release of the deep MCL was taken around to the midpoint of the tibia with the bovie. The medial release was completed with a hernandez elevator posteriorly at the joint line. The extent of the release was based onthe degree of deformity. A curved knee retractor was placed between the fat pad and patella tendon and a skin rake was used to retract the patella laterally. A majority of the infrapatellar fat pad was excised. The periosteum was released anteriorly and laterally from the tibial bone using the bovie. Any synovial bands or plica were released in the lateral gutter. A portion of synovium was excised from the anterolateral femoral cortex to aid in appropriate sizing of the femoral component and avoid notching the femur. A rongeur was used to remove any osteophytes from the femur and the periphery of the patella. FEMUR: The knee was flexed and a collateral retractor was positioned laterally. A curved knee retractor was placed medially to protect the medial collateral ligament. A stepped drill was utilized to enter the femoral canal followed by intramedullary guide to allow for a resection perpendicular to the mechanical axis with 3 degrees of flexion and removing 9mm of bone and cartilage. The distal femoral resection was made using a saw. Any necessary adjustments were made. The cutting block and pins were removed. The measured resection guide was then placed on the cut end of the distal femur and positioned initially in 3 degrees of external rotation. The position was modified and confirmed appropriate based on anatomic landmarks using the transepicondylar axis and Tyrrell's line. Two smooth pins were placed through the guide and the femur was sized based on the anterolateral femoral cortex. The resection guide was removed and the 4-in-1 cutting block was placed over the pins. The anterior resection was checked with an rola wing to ensure there would not be notching. The anterior femur resection was performed with a saw without notching. Two oblique threaded headed pins were then paced in the cutting block to secure it in place and the two smooth pins were removed. The posterior, posteriorchamfer, and anterior chamfer resections were made using the saw making sure soft tissues on the medial and lateral aspect of the knee were protected. The pins and cutting block were removed. A distal femoral cutting guide was utilized to make an oblique cut through the midline aspect of the distalfemur to allow for bony contact with the cementless distal femoral implant. TIBIA: The knee was then placed in hyperflexion. A collateral retractor was placed laterally and a curved knee retractor was placed medially to protect the medial collateral ligament. A PCL retractor was positioned posteriorly to translate the tibia anteriorly and protect posterior structures. The tibial cutting block was secured in place with an extramedullary guide to allow a resection perpendicular to the tibial mechanical axis removing 5mm of bone and cartilage off the low side with 5 degrees of posterior slope. A saw was used to resect the proximal tibia taking care to protect the soft tissues medially and laterally. The bone was removed using a clamp after releasing any remaining soft tissuewith the bovie. The knee was then placed in extension and a lamina svp digital ad sales was placed laterally and curved knee retractor medially. The medial meniscus was excised using the bovie taking care to protect the MCL. Any remaining bone was removed using a small saw. The lamina svp digital ad sales was then moved to the medial side and the lateral meniscus was excised taking care to protect the popliteus tendon. Any remaining bone was removed using a small saw. BALANCING: The knee was then flexed to 90 degrees with a collateral retractor laterally and curved knee retractor medially. The distal femur was lifted and any remaining bone or osteophytes were removed from the posterior femur using a 1/2 inch curved osteotome. The pieces of bone were removed with a curette and pituitary. Any remaining medial and lateral osteophytes were removed with a rongeur. A spacer block was then used to check the flexion and extension gaps. The gaps were found to be symmetric. No further bone resections were required. TIBIAL AND PATELLA PREP/TRIALING: Attention was then turned back to the tibia and the knee was placed in hyperflexion. A collateral retractor was placed laterally, PCL retractor posteriorly, and curved knee retractor medially. Tibialsize was assessed for excellent coverage then the femoral trial was impacted into place. The appropr iately sized tibial trial with poly was then inserted. All retractors were then removed and stability was checked throughout flexion and extension. The knee was able to be taken to full extension andfull flexion. At this point I was happy with the balance. The tibial trial position was marked witha Bovie on the tibia at its anterior midpoint, just slightly medial to the tibial tubercle, after ta dionne the knee through range of motion. Towel clips were placed above and below the patella which was then everted. A bovie was used remove synovium to allow visualization of the appropriate resectionlevel. The anatomic patellar thickness was measured with a caliper and a large saw was used to resect the patella. The caliper was used again to ensure the appropriate patellar thickness was obtained. The patellar component was sized to be 35 mm and lug holes were drilled. The patella trial was placed and appropriate tracking was noted. The lug holes were then drilled through the femoral trial. The femoral trial was then removed. The tibia was prepared with the reamer and keel punch, being sure to maintain the previously found alignment when the knee was taken through range of motion with trials in place. All trial components were removed. IMPLANTATION: The knee was then brought into full extension and longitudinal traction was utilized coupled with alamina svp digital ad sales and an Aquamantys was utilized to minimize any bleeding in the posterior capsule and around the distal femur and proximal tibia. A mixture of ropivacaine, morphine and epinephrine wasinjected throughout the capsule, periosteum, and soft tissues. The knee was then thoroughly irrigated using pulsed lavage containing normal saline. The tibial component was impacted into place followed by the femoral component, both cementless and well fitting with bony apposition on the back sidesof both implants. The polyethylene trial component was impacted into place. A single batch of [employer] fast set cement was mixed on the back table and cement was placed on the backside of the patellar component. The patella was thoroughly irrigated and dried and the patellar component was compressed into place until the cement was hardened. The knee was then taken through range of motion with the polyethylene trial component in place and found to be well balanced in flexionand extension with the patella tracking appropriately throughout motion. The trial polyethylene component was removed and a size 5 x 6 mm medially stabilized polyethylene insert was placed. CLOSURE: Bovie and Aquamantys electrocautery was used to obtain adequate hemostasis. The arthrotomy was closed in 30 degrees of flexion with a running barbed suture using the previously placed ariza. Several #1 vicryl interrupted sutures were placed for reinforcement. The knee was flexed up to [id number] degrees and interrupted 2-0 vicryl sutures were used to close the subcutaneous layer followed by3-0 monocryl stratafix and the skin was closed with yahir. A mepilex dressing was placed over theincision site. A compressive dressing was then placed in extension consisting of webril, and an acebandage. Sponge and needle counts were correct at the completion of the procedure. The surgical drapes were removed and x-rays were obtained. The patient was carefully transferred off the operating table ontotheir hospital bed. The patient tolerated the procedure well and there were no apparent complications. They were transferred to the recovery room in stable condition. Post Op Plan: Orthopedic admit Postoperative x-rays to be obtained in the PACU. Once the patient is stable in the PACU they will be transferred to the orthopaedic floor. Please place polar pack before leaving PACU. PT/OT consulted Weight bear as tolerated bilateral lower extremities Begin mobilizing with nursing and physical therapy WBAT using a walker as soon as possible. Begin physical therapy for aggressive range of motion and strengthening. Continue 24 hours of prophylactic antibiotics. DVT prophylaxis using aspirin and Plavix will be initiated tomorrow morning along with SCDs and early mobilization. A multi-modal pain management strategy will be continued. The surgical dressing will be left in place for 5 days unless >50% saturated. Patient to be discharged with wheeled walker, CPM, home health physical therapy for 2 weeks Keep scheduled follow-up with ERA Edwards in 2 weeks for reassessment with AP and lateral x-rays of the operative knee Regi Khan DO Orthopedic Surgeon [facility] 10/06/2023 9:32 AM * Perioperative Nursing Note - Elvira Reis RN - 10/06/2023 6:30 AM CDT Pt's blood sugar 114. Pt's basal insulin pump decreased to 50% on dose by pt.pt's dexcom currently shows 109. . Dr misael Zayas informed of this and aware. * Perioperative Nursing Note - Suzette Morris RN - 09/23/2023 10:23 AM CDT The following labs from 09/22/23 Pretesting were reviewed for 10/06/23 surgery: [x] CBC [x] CMP [] BMP [x] A1C [x] PT/INR [] PTT [x] MRSA Nasal Swab [x] Type and Screen [] Urine Nicotine Screening *PENDING* [] Urine Microscopic [x] EKG [] CXR [] COVID Ok for surgery per Anesthesia guidelines. Approved for surgery per CHRISTOPHER Recio. No further Interventions at this time. Suzette Morris RN 09/26/2023 9:48 AM Urine nicotine final result reviewed by SUZY Man to proceed to OR. documented in this encounter Plan of Treatment Scheduled Referrals Name Type Priority Associated Diagnoses Order Schedule Ambulatory referral to Home Health Outpatient Referral Routine Aftercare following right knee joint replacement surgery 1 Occurrences starting 10/07/2023 until 04/08/2024 documented as of this encounter Procedures Procedure Name Priority Date/Time Associated Diagnosis Comments POCT GLUCOSE DEVICE Routine 10/07/2023 11:32 AM CDT POCT GLUCOSE DEVICE Routine 10/07/2023 8 :24 AM CDT EGFR Routine 10/07/2023 2:52 AM CDT DIFFERENTIAL AUTO Routine 10/07/2023 2:5 2 AM CDT CBC WITH AUTO DIFFERENTIAL Routine 10/07/2023 2:52 AM CDT BASIC METABOLIC PANEL Routine 10/07/2023 2:52 AM CDT POCT GLUCOSE DEVICE Routine 10/06/2023 11:33 PM CDT POCT GLUCOSE DEVICE Routine 10/06/2023 6 :13 PM CDT POCT GLUCOSE DEVICE Routine 10/06/2023 4 :48 PM CDT POCT GLUCOSE DEVICE Routine 10/06/2023 10:54 AM CDT XR KNEE RIGHT 1 OR 2 VIEWS ED Urgent/IP Urgent 10/06/2023 9:52 AM CDT POCT GLUCOSE DEVICE Routine 10/06/2023 9 :34 AM CDT POCT GLUCOSE DEVICE Routine 10/06/2023 9 :31 AM CDT ARTHROPLASTY TOTAL KNEE 10/06/2023 7:27 AM CDT Primary osteoarthritis of right knee Case Notes RTKA POCT GLUCOSE DEVICE Routine 10/06/2023 6 :26 AM CDT B ABO / RH CONFIRMATION TESTING STAT 10/06/2023 6:10 AM CDT documented in this encounter Results * POCT glucose (10/07/2023 11:32 AM CDT) Glucose, POC 145 70 - 199 mg/dL Glucose comment 1 Use This Result OLIVIA Blood 10/07/2023 11:3 2 AM CDT 10/07/2023 11:32 AM CDT us Regi Khan DO LAB POCT ORDERABLES - DEVICE F inal Result OLIVIA [address] [facility] Department [place] [address] * POCT glucose (10/07/2023 8:24 AM CDT) Glucose, POC 149 70 - 199 mg/dL Glucose comment 1 Use This Result OLIVIA Blood 10/07/2023 8:24 AM CDT 10/07/2023 8:24 AM CDT us Regi Khan DO LAB POCT ORDERABLES - DEVICE F inal Result Performing Organization Address City/[facility] Co de Phone Number OLIVIA [facility] [employer] [address] * eGFR (10/07/2023 2:52 AM CDT) eGFR [...] GIRARD LAB BLOOD ORDERABLES Final Resul t Performing Organization Address City/[facility]/ZIP Co de Phone Number OLIVIA [facility] Department [place] [address] * (ABNORMAL) Differential, auto (10/07/2023 2:52 AM CDT) Pathologist [facility] Neutrophil abs 8.1(H) 1.5 - 6.5 K/cumm Imm gran abs 0.0 0.0 - 0.1 K/cumm [facility] Lymphocyte abs 2.4 0.8 - 3.3 K/cumm [facility] Monocyte abs 1.0(H) 0.2 - 0.8 K/cumm [facility] Eosinophil abs 0.0 0.0 - 0.5 K/cumm [facility] Basophil abs 0.0 0.0 - 0.1 K/cumm [facility] Neutrophil pct 70.2 % [facility] Comment: Interpretive Data Percent cell count reference ranges are not reported, since discordance with absolute values may lead to misinterpretation of CBC data. Current Interpretive Data was last revised on 2017. Imm gran pct 0.2 % [facility] Comment: Interpretive Data Percent cell count reference ranges are not reported, since discordance with absolute values may lead to misinterpretation of CBC data. Current Interpretive Data was last revised on 2017. Lymphocyte pct 20.6 % [facility] Comment: Interpretive Data Percent cell count reference ranges are not reported, since discordance with absolute values may lead to misinterpretation of CBC data. Current Interpretive Data was last revised on 2017. Monocyte pct 8.6 % [facility] Comment: Interpretive Data Percent cell count reference ranges are not reported, since discordance with absolute values may lead to misinterpretation of CBC data. Current Interpretive Data was last revised on 2017. Eosinophil pct 0.1 % [facility] Comment: Interpretive Data Percent cell count reference ranges are not reported, since discordance with absolute values may lead to misinterpretation of CBC data. Current Interpretive Data was last revised on 2017. Basophil pct 0.3 % [facility] Comment: Interpretive Data Percent cell count reference ranges are not reported, since discordance with absolute values may lead to misinterpretation of CBC data. Current Interpretive Data was last revised on 2017. Blood 10/07/2023 2:52 AM CDT 10/07/2023 3:03 AM CDT Yoan GIRARD LAB BLOOD ORDERABLES Final Resul t Performing Organization Address [facility] Co de Phone Number OLIVIA [address] [place] [address] * (ABNORMAL) CBC with auto differential (10/07/2023 2:52 AM CDT) Pathologist [facility] WBC 11.5(H) 3.8 - 9.9 K/cumm Hgb 9.8(L) 11.9 - 15.5 g/dL [facility] Hct 31.6(L) 35.6 - 45.5 % [facility] Plt 265 150 - 400 K/cumm [facility] MPV 10.3 9.1 - 12.3 fL [facility] RBC 3.57(L) 3.90 - 5.20 M/cumm [facility] MCV 88.5 81.3 - 96.4 fL [facility] MCH 27.5 27.1 - 33.3 pg [facility] MCHC 31.0(L) 32.3 - 35.7 g/dL [facility] RDW CV 14.6 11.1 - 14.9 % [facility] RDW SD 47.2 35.7 - 48.1 fL [facility] NRBC abs 0.00 0.00 - 0.01 K/cumm [facility] Blood 10/07/2023 2:52 AM CDT 10/07/2023 3:03 AM CDT Yoan GIRARD LAB BLOOD ORDERABLES Final Resul t Performing Organization Address City/[facility]/ZIP Co de Phone Number OLIVIA [address] [place] [address] * Basic metabolic panel (10/07/2023 2:52 AM CDT) Pathologist [facility] Sodium 140 135 - 145 mmol/L Potassium, pl 4.3 3.3 - 4.9 mmol/L [facility] Chloride 105 97 - 110 mmol/L [facility] CO2 27 22 - 32 mmol/L [facility] Anion gap 8 2 - 15 mmol/L [facility] BUN 21 6 - 25 mg/dL [facility] Creatinine 1.03 0.60 - 1.10 mg/dL [facility] Glucose 102 70 - 199 mg/dL [facility] Comment: Interpretive Data Fasting glucose >/= 126 mg/dl is diagnostic for diabetes. ?? Fasting is defined as no caloric intake for at least 8 hours. Fasting glucose between 100 mg/dl to 125 mg/dl is diagnostic of prediabetes. In a patient with classic symptoms of hyperglycemia or hyperglycemic crisis, a random glucose >/= 200 mg/dl is diagnostic for diabetes. In the absence of unequivocal hyperglycemia, results should be confirmed by repeat testing. The classification and Diagnosis of Diabetes Diabetes Care 202; 46: S19-S40. Current interpretive data was last revised 2022. Calcium 9.8 8.5 - 10.3 mg/dL [facility] Blood 10/07/2023 2:52 AM CDT 10/07/2023 3:03 AM CDT Yoan GIRARD LAB BLOOD ORDERABLES Final Resul t Performing Organization Address City/[facility]/ZIP Co de Phone Number [address] [place], [place] [id number] * POCT glucose (10/06/2023 11:33 PM CDT) Glucose, POC 179 70 - 199 mg/dL Blood 10/06/2023 11:3 3 PM CDT 10/06/2023 11:33 PM CDT Regi Khan DO LAB POCT ORDERABLES - DEVICE F inal Result Performing Organization Address City/[facility]/ZIP Co de Phone Number [address] [place], [place] [id number] * (ABNORMAL) POCT glucose (10/06/2023 6:13 PM CDT) Glucose, POC 228(H) 70 - 199 mg/dL Glucose comment 1 RN/MD Notified [facility] Blood 10/06/2023 6:13 PM CDT 10/06/2023 6:13 PM CDT BlakelCamGSM Erin DO LAB POCT ORDERABLES - DEVICE F inal Result Performing Organization Address [facility] de Phone Number OLIVIA [address] [place] [address] * (ABNORMAL) POCT glucose (10/06/2023 4:48 PM CDT) Glucose, POC 251(H) 70 - 199 mg/dL Glucose comment 1 RN/MD Notified OLIVIA Blood 10/06/2023 4:48 PM CDT 10/06/2023 4:48 PM CDT [email or web address]an [email or web address] DO LAB POCT ORDERABLES - DEVICE F inal Result Performing Organization Address [facility] de Phone Number OLIVIA [address] [address] * (ABNORMAL) POCT glucose (10/06/2023 10:54 AM CDT) Glucose, POC 283(H) 70 - 199 mg/dL Glucose comment 1 RN/MD Notified OLIVIA Blood 10/06/2023 10:5 4 AM CDT 10/06/2023 10:54 AM CDT [email or web address] DO LAB POCT ORDERABLES - DEVICE F inal Result Performing Organization Address [facility] Co de Phone Number PEREZ[address] [place] [address] * X-ray knee right 1 or 2 views (10/06/2023 9:52 AM CDT) Anatomical Region Laterality Modality Lower Extremities, Knee Right Computed Radiography 10/06/2023 9:59 AM CDT Narrative 10/06/2023 10:00 AM CDT EXAM DESCRIPTION: ?? XR KNEE RIGHT 1 OR 2 VIEWS REASON FOR STUDY: ?? JOINT REPLACEMENT, KNEE ?? Post op right knee replacement ??Best images obtained ? TECHNIQUE: ??Two views COMPARISON: ??08/15/2023 FINDINGS: Total knee prosthesis identified postsurgical changes of bone soft tissue. No unexpected findings. IMPRESSION: Postop appearance right knee replacement. THIS IS AN ELECTRONICALLY VERIFIED FINAL REPORT 10/06/2023 10:00 AM - Electronically signed by ??Carlo Adams M.D. RB D: ??10/06/2023 10:00 AM T: Report ID: [id number] Reading Location: ??[id number] Procedure Note Carlo Adams MD - 10/06/2023 EXAM DESCRIPTION: XR KNEE RIGHT 1 OR 2 VIEWS REASON FOR STUDY: JOINT REPLACEMENT, KNEE Post op right knee replacement Best images obtained TECHNIQUE: Two views COMPARISON: 08/15/2023 FINDINGS: Total knee prosthesis identified postsurgical changes of bone softtissue. No unexpected findings. IMPRESSION: Postop appearance right knee replacement. THIS IS AN ELECTRONICALLY VERIFIED FINAL REPORT 10/06/2023 10:00 AM - Electronically signed by Carlo Adams M.D. RB T: Report ID: [id number] Reading Location: [id number] Regi Khan DO IMG XR PROCEDURES Final Result * (ABNORMAL) POCT glucose (10/06/2023 9:34 AM CDT) [facility] Signature Glucose, POC 215(H) 70 - 199 mg/dL Glucose comment 1 Use This Result OLIVIA [place] Blood 10/06/2023 9:34 AM CDT 10/06/2023 9:34 AM CDT YvoniPipelinese DO LAB POCT ORDERABLES - DEVICE F inal Result OLIVIA [address] [facility] [place] [address] * (ABNORMAL) POCT glucose (10/06/2023 9:31 AM CDT) Glucose, POC 244(H) 70 - 199 mg/dL Glucose comment 1 Will Repeat Test OLIVIA Blood 10/06/2023 9:31 AM CDT 10/06/2023 9:31 AM CDT us [employer] Erin DO LAB POCT ORDERABLES - DEVICE F inal Result Performing Organization Address [facility] Co de Phone Number OLIVIA [address] [place] [address] * POCT glucose (10/06/2023 6:26 AM CDT) Glucose, POC 114 70 - 199 mg/dL Glucose comment 1 Use This Result OLIVIA Blood 10/06/2023 6:26 AM CDT 10/06/2023 6:26 AM CDT Lyks DO LAB POCT ORDERABLES - DEVICE F inal Result Performing Organization Address [facility] Co de Phone Number OLIVIA [address] [place] [address] * ABO / Rh Confirmation Testing (10/06/2023 6:10 AM CDT) ABO/Rh Confirmation A Positive [facility]HB Blood 10/06/2023 6:10 AM CDT 10/06/2023 6:32 AM CDT Lyks DO LAB BLOOD ORDERABLES Final Res ult Performing Organization Address [facility] Co de Phone Number OLIVIA [address] [place] [address] MHB documented in this encounter Visit Diagnoses Diagnosis Osteoarthritis of right knee- Primary Osteoarthrosis, unspecified whether generalized or localized, lower leg Primary osteoarthritis of right knee [M17.11] Aftercare following right knee joint replacement surgery Arthritis of right knee documented in this encounter Admitting Diagnoses Diagnosis Osteoarthritis of right knee Osteoarthrosis, unspecified whether generalized or localized, lower leg Arthritis of right knee documented in this encounter Administered Medications Inactive Administered Medications - up to 3 most recent administrations Medication Order MAR Action Action Date Dose Rate Site acetaminophen (TYLENOL) tablet 975 mg 975 mg (rounded from 1,000 mg), oral, Once, On Fri10/06/23 at 0600, For 1 dose, Pre-Op, Indications: Pre-Emptive AnalgesiaIndications:Pre-Emptive Analgesia Given 10/06/2023 5:58 AM CDT 975 mg acetaminophen (TYLENOL) tablet 975 mg 975 mg (rounded from 1,000 mg), oral, Every 6 hours scheduled, First dose on Fri10/06/23 at 1500, Indications: PainIndications:Pain Given 10/07/2023 2:31 PM CDT 975 mg Given 10/07/2023 8:57 AM CDT 975 mg Given 10/07/2023 3:43 AM CDT 975 mg aspirin enteric coated tablet 81 mg 81 mg, oral, Daily, First dose on Fri10/07/23 at 0900, Do not crush, chew, cut, dissolve, open or otherwise manipulate tablet/capsule., Indications: Deep Vein Thrombosis PreventionIndications:Deep Vein Thrombosis Prevention Given 10/07/2023 8:56 AM CDT 81 mg benzocaine-menthoL (CHLORASEPTIC) lozenge 1 lozenge 1 lozenge, mouth/throat, Every 4 hours PRN, sore throat, Starting on Fri10/06/23 at 1123, Indications: Mouth IrritationIndications:Mouth Irritation Given 10/07/2023 8:46 AM CDT 1 moose enge busPIRone (BUSPAR) tablet 5 mg 5 mg, oral, 2 times daily, First dose on Fri10/06/23 at 2100 Given 10/07/2023 8:57 AM CDT 5 mg Given 10/06/2023 10:11 PM CDT 5 mg calcium carbonate (TUMS) chewable tablet 1,000 mg 1,000 mg (400 mg of elemental calcium), oral, 2 times daily, First dose on Fri10/06/23 at 1200, Indications: Hypocalcemia PreventionIndications:Hypocalcemia Prevention Given 10/07/2023 8:58 AM CDT 1,000 mg Given 10/06/2023 10:11 PM CDT 1,000 mg ceFAZolin (ANCEF) 2,000 mg/20 mL in sterile water (premix) 2,000 mg 2,000 mg, intravenous, at 400 mL/hr, Administer over 3 Minutes, Every 8 hours, First dose on Fri10/06/23 at 1600, For 2 doses, Beginning 8 hours after last maría-operative dose., Indications: Prophylaxis, SurgicalIndications:Prophylaxis, Surgical Given 10/06/2023 11:31 PM CDT 2,000 mg 400 mL/hr Given 10/06/2023 4:52 PM CDT 2,000 mg 400 mL/hr clopidogreL (PLAVIX) tablet 75 mg 75 mg, oral, Daily, First dose on Fri10/06/23 at 1200 Given 10/07/2023 8:58 AM CDT 75 mg dextrose (D10W) 10% bolus 250 mL 250 mL, intravenous, at 1,000 mL/hr, Administer over 15 Minutes, Every 15 min PRN, blood glucose less than 70 mg/dL and UNABLE to swallow/take PO glucose/juice., Starting on Fri10/06/23 at 1123, After treatment for hypoglycemia, recheck BG followed by treatment every 15 minutes until the BG is greater than 100 mg/dL. Then check BG 1 hour post treatment. If BG is less than 100 mg/dL, repeat Q15 minute BG checks and treatment. Call MD for each episode of hypoglycemia., Indications: hypoglycemic disorderIndications:hypoglycemic disorder dextrose (GLUTOSE) 40 % gel 15 g 15 g, oral, Every 15 min PRN, low blood sugar, blood glucose less than 70 mg/dL, Starting on Fri10/06/23 at 1123, If patient is alert and able to eat/drink, give 15 gm glucose or one juice (4 fluid ounces) NOT ORANGE JUICE. After treatment for hypoglycemia, recheck BG followed by treatment every 15 minutes until the BG is greater than 100 mg/dL. Then check BG 1 hour post-treatment. If BG is less than 100 mg/dL, repeat Q15 minute BG checks and treatment. Call MD for each episode of hypoglycemia. UTILITY TENDER CARDING STATES GLUTOSE-15 CONTAINS GLUCOSE 40% W/W (50% W/V), Indications: hypoglycemic disorderIndications:hypoglycemic disorder docusate sodium (COLACE) capsule 100 mg 100 mg, oral, 2 times daily, First dose on Fri10/06/23 at 1200, Hold for diarrhea, Indications: constipationIndications:constipation Given 10/07/2023 8:57 AM CDT 100 mg Given 10/06/2023 10:14 PM CDT 100 mg Given 10/06/2023 12:59 PM CDT 100 mg escitalopram (LEXAPRO) tablet 15 mg 15 mg, oral, Daily, First dose (after last modification) on Fri10/07/23 at 0900 Given 10/07/2023 8:56 AM CDT 15 mg ezetimibe (ZETIA) tablet 10 mg 10 mg, oral, Daily, First dose on Fri10/07/23 at 0900 Given 10/07/2023 8:57 AM CDT 10 mg famotidine (PEPCID) tablet 20 mg 20 mg, oral, 2 times daily, First dose on Fri10/06/23 at 2100 Given 10/07/2023 8:56 AM CDT 20 mg Given 10/06/2023 10:12 PM CDT 20 mg fentaNYL (SUBLIMAZE) preservative free injection 25 mcg 25 mcg, intravenous, Every 10 min PRN, For uncontrolled pain use in the pacu only, Starting on Fri10/06/23 at 0923, Phase I, Then proceed to PACU 1st line analgesic., Indications: PainIndications:Pain Given 10/06/2023 10:00 AM CDT 25 mcg Given 10/06/2023 9:50 AM CDT 25 mcg hydroCHLOROthiazide (HYDRODIURIL) tablet 12.5 mg 12.5 mg, oral, Daily, First dose on Fri10/06/23 at 1200 Given 10/07/2023 8:56 AM CDT 12.5 mg Given 10/06/2023 12:59 PM CDT 12.5 mg HYDROmorphone (DILAUDID) injection 0.2 mg 0.2 mg, intravenous, Administer over 2 Minutes, Every 4 hours PRN, 2nd line for pain, Starting on Fri10/06/23 at 1123, May administer 1 hour after second dose of 1st line analgesic agent for uncontrolled or increasing pain., Indications: PainIndications:Pain Given 10/07/2023 10:59 AM CDT 0.2 mg Given 10/07/2023 3:41 AM CDT 0.2 mg HYDROmorphone (DILAUDID) injection 0.4 mg 0.4 mg, intravenous, Administer over 2 Minutes, Every 10 min PRN, 2nd line for pain, Starting on Fri10/06/23 at 0923, Phase I, May administer 10 mintes after 2nd dose of 1st line analgesic agent for uncontrolled or increasing pain. Revert to 1st line dose if POSS of 3. Notify Anesthesiologist if total PACU dose reaches 2 mg and pain score 5/10 or more., Indications: PainIndications:Pain Given 10/06/2023 10:00 AM CDT 0.4 mg Given 10/06/2023 9:50 AM CDT 0.4 mg insulin lispro (HumaLOG, ADMELOG) 100 unit/mL injection 9 Units 9 Units, subcutaneous, As needed, other, insulin pump not functional, Starting on Fri10/06/23 at 1450, Administer back up dose if insulin pump is not functional. Call MD for alternate insulin regimen., Indications: Diabetes MellitusIndications:Lisa betes Mellitus INSULIN SUBCUTANEOUS PUMP insulin lispro (HumaLOG) 100 UNIT/ML patient supplied pump 0-25 Units 0-25 Units, subcutaneous, Continuous, Starting on Fri10/06/23 at 1530, Current pump settings will remain until a member of the Endocrine team, Maternal- Medicine (if applicable), or designee evaluates the patient and/or adjusts the pump settings., Attestation: Possesses no safety concerns (eg. diagnosis of DKA/HHS, admit to ICU, risk of self harm), Attestation: Possesses visual acuity and fine motor skills to operate pump, Attestation: Alert and oriented x 4, Attestation: Verbalizes desire to remain on insulin pump during hospitalization and understands insulin pump agreement, Insulin Pump: Insulin Pump Settings, Insulin Pump Settings: Basal Rate, Carbohydrate Ratio, High Glucose Correction, Basal Rate (units/hr): 2.55, From (hh:mm): 12:00 AM, To (hh:mm): 4:00 AM, Basal Rate (units/hr): 2.6, From (hh:mm): 4:01 AM, To (hh:mm): 11:59 AM, Carbohydrate Ratio: 1 unit per how many gm carbohydrate: 6, From: (hh:mm): 12:00 AM, To:(hh:mm): 11:59 PM, High Glucose Correction: 1 unit per how many mg/dL over target: 20, From:(hh:mm): 12:00 AM, To:(hh:mm): 11:59 PM, Choose Target (mg/dL): 110, Indications: Diabetes MellitusIndications:Lisa vignesh Mellitus Self Administered Via Pump 10/06/2023 6:13 PM CDT 2.6 Units Left Lower Abdomen Lactated Ringer's (LR) infusion 30 mL/hr, intravenous, Continuous, Starting on Fri10/06/23 at 0600, Pre-Op Rate/Dose Verify 10/06/2023 7:27 AM CDT 30 mL/hr New Bag 10/06/2023 6:43 AM CDT 30 mL/hr 30 mL/hr Lactated Ringer's (LR) infusion 100 mL/hr, intravenous, Continuous, Starting on Fri10/06/23 at 1200, Phase I & Post-op Floor, For at least 24 hours, then reduce to 40 ml/hr when tolerating PO fluids. Discontinue IV when antibiotics are complete and taking PO fluids well. Rate/Dose Verify 10/06/2023 4:40 PM CDT 100 mL/hr 100 mL/hr New Bag 10/06/2023 1:00 PM CDT 100 mL/hr 100 mL/hr Restarted 10/06/2023 11:30 AM CDT 100 mL/hr 100 mL/hr losartan (COZAAR) tablet 100 mg 100 mg, oral, Daily, First dose on Fri10/06/23 at 1200 Given 10/07/2023 8:56 AM CDT 100 mg Given 10/06/2023 12:59 PM CDT 100 mg oxyCODONE (ROXICODONE) tablet 5 mg 5 mg, oral, Every 4 hours PRN, 1st line for pain, Starting on Fri10/06/23 at 1123, May repeat in 1 hour if pain is uncontrolled or increasing. Max 2 doses within 1 dosing interval., Indications: PainIndications:Pain Given 10/07/2023 4:28 PM CDT 5 mg Given 10/07/2023 12:23 PM CDT 5 mg Given 10/07/2023 11:30 AM CDT 5 mg sodium chloride 0.9% flush 0.5-20 mL 0.5-20 mL, intra-catheter, Every 8 hours scheduled, First dose on Fri10/06/23 at 1400, Flush volume based on line type and size. Given 10/07/2023 12:23 PM CDT 1 0 mL Given 10/06/2023 10:12 PM CDT 10 mL documented in this encounter Discontinued Medications Medication Sig Discontinue Reason Start Date End Da te estradioL (ESTRACE) 0.5 mg tablet Take 1 tablet (0.5 mg total) by mouth daily Therapy completed 10/11/2018 10/06/2023 documented as of this encounter Active and Recently Administered Medications Times are shown in CDT. Scheduled Medication Order 10/05/2023 10/06/2023 10/07/2023 acetaminophen (TYLENOL) tablet 975 mg (COMPLETED) 975 mg (rounded from 1,000 mg), oral, Once, On Fri10/06/23 at 0600, For 1 dose, Pre-Op, Indications: Pre-Emptive Analgesia 0558 (Given - Provider: Elvira Reis RN) acetaminophen (TYLENOL) tablet 975 mg 975 mg (rounded from 1,000 mg), oral, Every 6 hours scheduled, First dose on Fri10/06/23 at 1500, Indications: Pain 1425 (Given - Provider: Tania Merritt RN)2211 (Given - Provider: Deborah Ortiz RN) 0343 (Given - Provider: Deborah Ortiz RN)0857 (Given - Provider: Tania Merritt, SARA)1431 (Given - Provider: Tania Merritt RN) aspirin enteric coated tablet 81 mg 81 mg, oral, Daily, First dose on Fri10/07/23 at 0900, Do not crush, chew, cut, dissolve, open or otherwise manipulate tablet/capsule., Indications: Deep Vein Thrombosis Prevention 0856 (Given - Provid er: Tania Merritt RN) busPIRone (BUSPAR) tablet 5 mg 5 mg, oral, 2 times daily, First dose on Fri10/06/23 at 2100 2211 (Given - Provider: Deborah Ortiz RN) 0857 (Given - Provider: Tania Merritt RN) calcium carbonate (TUMS) chewable tablet 1,000 mg 1,000 mg (400 mg of elemental calcium), oral, 2 times daily, First dose on Fri10/06/23 at 1200, Indications: Hypocalcemia Prevention 1259 (Not Given - Provider: Tania Merritt RN - Reason: Patient/family refused - Comment: Patient states that she no longer takes due to constipation)2211 (Given - Provider: Deborah Ortiz RN) 0858 (Given - Provider: Tania Merritt RN) ceFAZolin (ANCEF) 2,000 mg/20 mL in sterile water (premix) 2,000 mg (COMPLETED) 2,000 mg, intravenous, at 400 mL/hr, Administer over 3 Minutes, Once, On Fri10/06/23 at 0600, For 1 dose, Pre-Op, Administer within 60 minutes of incision., Indications: Prophylaxis, Surgical 0751 (Given - Provider: Cheyenne Bateman CRNA) ceFAZolin (ANCEF) 2,000 mg/20 mL in sterile water (premix) 2,000 mg (COMPLETED) 2,000 mg, intravenous, at 400 mL/hr, Administer over 3 Minutes, Every 8 hours, First dose on Fri10/06/23 at 1600, For 2 doses, Beginning 8 hours after last maría-operative dose., Indications: Prophylaxis, Surgical 1652 (Given - Provider: Tania Merritt RN)2331 (Given - Provider: Deborah Ortiz RN) clopidogreL (PLAVIX) tablet 75 mg 75 mg, oral, Daily, First dose on Fri10/06/23 at 1200 1123 (Held by Provider - Provider: Regi Khan, DO - Reason: Hold for Procedure)1200 (Dose Auto Held) 0800 (Unheld by Provider - Provider: Regi Khan, DO - Reason: Hold for Procedure)0858 (Given - Provider: Tania Merritt RN) docusate sodium (COLACE) capsule 100 mg 100 mg, oral, 2 times daily, First dose on Fri10/06/23 at 1200, Hold for diarrhea, Indications: constipation 1259 (Given - Provider: Tania Merritt RN)2214 (Given - Provider: Deborah Ortiz RN) 0857 (Given - Provider: Tania Merritt RN) escitalopram (LEXAPRO) tablet 15 mg 15 mg, oral, Daily, First dose (after last modification) on Fri10/07/23 at 0900 0856 (Given - Provid er: Tania Merritt RN) ezetimibe (ZETIA) tablet 10 mg 10 mg, oral, Daily, First dose on Fri10/07/23 at 0900 0857 (Given - Provid er: Tania Merritt RN) famotidine (PEPCID) tablet 20 mg 20 mg, oral, 2 times daily, First dose on Fri10/06/23 at 2100 2212 (Given - Provider: Deborah Ortiz RN) 0856 (Given - Provider: Tania Merritt RN) hydroCHLOROthiazide (HYDRODIURIL) tablet 12.5 mg(Linked Group 1) 12.5 mg, oral, Daily, First dose on Fri10/06/23 at 1200 1259 (Given - Provider: Tania Merritt RN) 0856 (Given - Provider: Tania Merritt RN) losartan (COZAAR) tablet 100 mg(Linked Group 1) 100 mg, oral, Daily, First dose on Fri10/06/23 at 1200 1259 (Given - Provider: Tania Merritt RN) 0856 (Given - Provider: Tania Merritt RN) polyethylene glycol (MIRALAX) packet 17 g 17 g, oral, Daily, First dose on Fri10/06/23 at 1200, Hold for diarrhea., Indications: constipation 1323 (Not Given - Provider: Tania Merritt RN - Reason: Patient/family refused) 0858 (Not Given - Provider: Tania Merritt RN - Reason: Patient/family refused) propranoloL (INDERAL) tablet 20 mg 20 mg, oral, 2 times daily, First dose on Fri10/06/23 at 1200, On hold since Fri10/06/2023 at 1226 until manually unheld 1226 (Held by Provider - Provider: ERA Figueredo - Reason: Change in Patient Status)1312 (Not Given - Provider: Tania Merritt RN - Reason: See Provider Order)2100 (Dose Auto Held - Provider: ERA Figueredo) 0900 (Dose Auto Held - Provider: ERA Figueredo)2259 (Unheld by Provider - Provider: Automatic Discharge Provider) sodium chloride 0.9% flush 0.5-20 mL 0.5-20 mL, intra-catheter, Every 8 hours scheduled, First dose on Fri10/06/23 at 1400, Flush volume based on line type and size. 1413 (Not Given - Provider: Tania Merritt, SARA - Reason: IV Infusing)2212 (Given - Provider: Deborah Ortiz RN) 0632 (Canceled Entry - Provider: Deborah Ortiz RN)1223 (Given - Provider: Tania Merritt RN) Continuous Medication Order 10/05/2023 10/06/2023 10/07/2023 INSULIN SUBCUTANEOUS PUMP insulin lispro (HumaLOG) 100 UNIT/ML patient supplied pump 0-25 Units 0-25 Units, subcutaneous, Continuous, Starting on Fri10/06/23 at 1530, Current pump settings will remain until a member of the Endocrine team, Maternal- Medicine (if applicable), or designee evaluates the patient and/or adjusts the pump settings., Attestation: Possesses no safety concerns (eg. diagnosis of DKA/HHS, admit to ICU, risk of self harm), Attestation: Possesses visual acuity and fine motor skills to operate pump, Attestation: Alert and oriented x 4, Attestation: Verbalizes desire to remain on insulin pump during hospitalization and understands insulin pump agreement, Insulin Pump: Insulin Pump Settings, Insulin Pump Settings: Basal Rate, Carbohydrate Ratio, High Glucose Correction, Basal Rate (units/hr): 2.55, From (hh:mm): 12:00 AM, To (hh:mm): 4:00 AM, Basal Rate (units/hr): 2.6, From (hh:mm): 4:01 AM, To (hh:mm): 11:59 AM, Carbohydrate Ratio: 1 unit per how many gm carbohydrate: 6, From: (hh:mm): 12:00 AM, To:(hh:mm): 11:59 PM, High Glucose Correction: 1 unit per how many mg/dL over target: 20, From:(hh:mm): 12:00 AM, To:(hh:mm): 11:59 PM, Choose Target (mg/dL): 110, Indications: Diabetes Mellitus 1813 (Self Administered Via Pump - Provider: Tania Merritt RN) Lactated Ringer's (LR) infusion (CANCELED) 30 mL/hr, intravenous, Continuous, Starting on Fri10/06/23 at 0600, Pre-Op 0643 (New Bag - Provider: Elvira Reis RN)0727 (Rate/Dose Verify - Provider: Cheyenne Bateman CRNA)0916 (Anesthesia Volume Adjustment - Provider: Cheyenne Bateman CRNA)1045 (Stopped - Provider: Tania Merritt RN) Lactated Ringer's (LR) infusion 125 mL/hr, intravenous, Continuous, Starting on Fri10/06/23 at 1000, Phase I 1045 (Stopped - Provider: Tania Merritt RN)1128 (Not Given - Provider: Tania Merritt RN - Reason: Unreviewed Transfer Orders) Lactated Ringer's (LR) infusion 100 mL/hr, intravenous, Continuous, Starting on Fri10/06/23 at 1200, Phase I & Post-op Floor, For at least 24 hours, then reduce to 40 ml/hr when tolerating PO fluids. Discontinue IV when antibiotics are complete and taking PO fluids well. 1130 (Restarted - Provider: Tania Merritt RN)1300 (New Bag - Provider: Tania Merritt RN)1640 (Rate/Dose Verify - Provider: Tania Merritt RN) 2259 (Due: Stopped) PRN Medication Order 10/05/2023 10/06/2023 10/07/2023 benzocaine-menthoL (CHLORASEPTIC) lozenge 1 lozenge 1 lozenge, mouth/throat, Every 4 hours PRN, sore throat, Starting on Fri10/06/23 at 1123, Indications: Mouth Irritation 0846 (Given - Provider: Tania Merritt RN) bisacodyL (DULCOLAX) suppository 10 mg 10 mg, rectal, Daily PRN, constipation, Starting on Fri10/06/23 at 1123, Indications: constipation BUPivacaine-EPINEPHrine (MARCAINE with EPI) 0.5 %-1:200,000 preservative free injection (CANCELED) As needed, Starting on Fri10/06/23 at 0810, Intra-Op 0810 (Given - Provider: Regi Khan DO) dextrose (D10W) 10% bolus 250 mL(Linked Group 2) 250 mL, intravenous, at 1,000 mL/hr, Administer over 15 Minutes, Every 15 min PRN, blood glucose less than 70 mg/dL and UNABLE to swallow/take PO glucose/juice., Starting on Fri10/06/23 at 1123, After treatment for hypoglycemia, recheck BG followed by treatment every 15 minutes until the BG is greater than 100 mg/dL. Then check BG 1 hour post treatment. If BG is less than 100 mg/dL, repeat Q15 minute BG checks and treatment. Call MD for each episode of hypoglycemia., Indications: hypoglycemic disorder dextrose (GLUTOSE) 40 % gel 15 g(Linked Group 2) 15 g, oral, Every 15 min PRN, low blood sugar, blood glucose less than 70 mg/dL, Starting on Fri10/06/23 at 1123, If patient is alert and able to eat/drink, give 15 gm glucose or one juice (4 fluid ounces) NOT ORANGE JUICE. After treatment for hypoglycemia, recheck BG followed by treatment every 15 minutes until the BG is greater than 100 mg/dL. Then check BG 1 hour post-treatment. If BG is less than 100 mg/dL, repeat Q15 minute BG checks and treatment. Call MD for each episode of hypoglycemia. UTILITY TENDER CARDING STATES GLUTOSE-15 CONTAINS GLUCOSE 40% W/W (50% W/V), Indications: hypoglycemic disorder fentaNYL (SUBLIMAZE) preservative free injection 25 mcg (CANCELED) 25 mcg, intravenous, Every 10 min PRN, For uncontrolled pain use in the pacu only, Starting on Fri10/06/23 at 0923, Phase I, Then proceed to PACU 1st line analgesic., Indications: Pain 0950 (Given - Provider: Fredy Ansari RN)1000 (Given - Provider: Fredy Ansari RN) glucagon injection 1 mg 1 mg, intramuscular, Every 30 min PRN, low blood sugar, blood glucose less than 70 mg/dL AND no IV access AND unable to take PO glucose/juice., Starting on Fri10/06/23 at 1123, After Glucagon is administered, position patient on side if possible to avoid aspiration. Obtain IV access. Follow glucagon treatment with glucose treatment or IV dextrose. After treatment for hypoglycemia, recheck BG followed by treatment every 15 minutes until the BG is greater than 100 mg/dL. Then check BG 1 hour post treatment. If BG is less than 100 mg/dL, repeat Q15 minute BG checks and treatment. Call MD for each episode of hypoglycemia. Reconstitute 1 mg vial with 1 mL SWFI. Use immediately following reconstitution. HYDROmorphone (DILAUDID) injection 0.2 mg 0.2 mg, intravenous, Administer over 2 Minutes, Every 4 hours PRN, 2nd line for pain, Starting on Fri10/06/23 at 1123, May administer 1 hour after second dose of 1st line analgesic agent for uncontrolled or increasing pain., Indications: Pain 0341 (Given - Provider: Deborah Ortiz RN)1059 (Given - Provider: Tania Merritt RN) HYDROmorphone (DILAUDID) injection 0.4 mg (CANCELED) 0.4 mg, intravenous, Administer over 2 Minutes, Every 10 min PRN, 2nd line for pain, Starting on Fri10/06/23 at 0923, Phase I, May administer 10 mintes after 2nd dose of 1st line analgesic agent for uncontrolled or increasing pain. Revert to 1st line dose if POSS of 3. Notify Anesthesiologist if total PACU dose reaches 2 mg and pain score 5/10 or more., Indications: Pain 0950 (Given - Provider: Fredy Ansari, SARA)1000 (Given - Provider: Fredy Ansari, SARA) insulin lispro (HumaLOG, ADMELOG) 100 unit/mL injection 9 Units 9 Units, subcutaneous, As needed, other, insulin pump not functional, Starting on Fri10/06/23 at 1450, Administer back up dose if insulin pump is not functional. Call MD for alternate insulin regimen., Indications: Diabetes Mellitus meclizine (ANTIVERT) tablet 25 mg 25 mg, oral, Daily PRN, nausea, Starting on Fri10/06/23 at 1216 morphine injection (CANCELED) Administer over 4 Minutes, As needed, Starting on Fri10/06/23 at 0809, Intra-Op 0809 (Given - Provider: Regi Khan, DO - Comment: mixed with 0.5% Bupivicaine with EPI 40mls injected to right knee surgical site) ondansetron (ZOFRAN) injection 4 mg 4 mg, intravenous, Administer over 2 Minutes, Every 6 hours PRN, nausea, vomiting, Starting on Fri10/06/23 at 1123, Proceed to prochlorperazine if no relief within 30 minutes. oxyCODONE (ROXICODONE) tablet 5 mg 5 mg, oral, Every 4 hours PRN, 1st line for pain, Starting on Fri10/06/23 at 1123, May repeat in 1 hour if pain is uncontrolled or increasing. Max 2 doses within 1 dosing interval., Indications: Pain 1259 (Given - Provider: Tania Merritt RN)1425 (Given - Provider: Tania Merritt RN)2211 (Given - Provider: Deborah Ortiz RN) 0140 (Given - Provider: Deborah Ortiz RN)0230 (Given - Provider: Deborah Ortiz RN)0555 (Given - Provider: Deborah Ortiz RN)0720 (Given - Provider: Deborah Ortiz RN)1130 (Given - Provider: Tania Merritt RN)1223 (Given - Provider: Tania Merritt RN)1628 (Given - Provider: Tania Merritt RN) sodium chloride 0.9% flush 0.5-20 mL 0.5-20 mL, intra-catheter, As needed, line care, Starting on Fri10/06/23 at 1123, Flush volume based on line type and size. Flush before and after each use. SUMAtriptan (IMITREX) tablet 50 mg 50 mg, oral, Once as needed, other, headaches, previous home med, Starting on Fri10/06/23 at 1123, May repeat dose once in 2 hours if unresolved. Do not exceed 200 mg in 24 hours. zolpidem (AMBIEN) tablet 5 mg 5 mg, oral, Nightly PRN, sleep, Starting on Fri10/06/23 at 1123 Linked Groups Order Group 1: losartan (COZAAR) tablet 100 mgJump to med 100 mg, oral, Daily, First dose on Fri10/06/23 at 1200 And hydroCHLOROthiazide (HYDRODIURIL) tablet 12.5 mgJump to med 12.5 mg, oral, Daily, First dose on Fri10/06/23 at 1200 Group 2: dextrose (GLUTOSE) 40 % gel 15 gJump to med 15 g, oral, Every 15 min PRN, low blood sugar, blood glucose less than 70 mg/dL, Starting on Fri10/06/23 at 1123, If patient is alert and able to eat/drink, give 15 gm glucose or one juice (4 fluid ounces) NOT ORANGE JUICE. After treatment for hypoglycemia, recheck BG followed by treatment every 15 minutes until the BG is greater than 100 mg/dL. Then check BG 1 hour post-treatment. If BG is less than 100 mg/dL, repeat Q15 minute BG checks and treatment. Call MD for each episode of hypoglycemia. UTILITY TENDER CARDING STATES GLUTOSE-15 CONTAINS GLUCOSE 40% W/W (50% W/V), Indications: hypoglycemic disorder Or dextrose (D10W) 10% bolus 250 mLJump to med 250 mL, intravenous, at 1,000 mL/hr, Administer over 15 Minutes, Every 15 min PRN, blood glucose less than 70 mg/dL and UNABLE to swallow/take PO glucose/juice., Starting on Fri10/06/23 at 1123, After treatment for hypoglycemia, recheck BG followed by treatment every 15 minutes until the BG is greater than 100 mg/dL. Then check BG 1 hour post treatment. If BG is less than 100 mg/dL, repeat Q15 minute BG checks and treatment. Call MD for each episode of hypoglycemia., Indications: hypoglycemic disorder documented in this encounter Orders Medications Ordered That Marcel ht Not Have Been Administered Count Last Ordered Date First Ordered Date bisacodyL (DULCOLAX) suppository 10 mg BUPivacaine-EPINEPHrine (MAR GANESH with EPI) 0.5 %-1:200,000 preservative free injection 10/06/2023 ceFAZolin (ANCEF) 2,000 mg/2 0 mL in sterile water (premix) 2,000 mg 10/06/2023 citalopram (CeleXA) tablet 20 mg 10/06/19 dexAMETHasone (DECADRON) pre servative free solution 10 mg 10/06/2023 dextrose (D10W) 10% bolus 250 mL 10/06/19 dextrose (GLUTOSE) 40 % gel 15 g 10/06/19 24 diphenhydrAMINE (BENADRYL) 5 0 mg/mL injection 12.5 mg 1 10/06/2023 escitalopram (LEXAPRO) tablet 10 mg 1 10/05 escitalopram (LEXAPRO) tablet 15 mg 1 10/05 estradioL (ESTRACE) tablet 0.5 mg 1 famotidine (PEPCID) tablet 20 mg 1 10/06/19 fentaNYL (SUBLIMAZE) preserv ative free injection 50 mcg 1 10/06/2023 glucagon injection 1 mg 1 10/06/2023 hydrALAZINE (APRESOLINE) injection 5 mg 1 0 10/06/2023 HYDROmorphone (DILAUDID) injection 0.2 mg 1 10/06/2023 insulin lispro (HumaLOG, ADM ELOG) 100 unit/mL injection 0-4 Units 1 10/06/2023 insulin lispro (HumaLOG, ADM ELOG) 100 unit/mL injection 0-5 Units 1 10/06/2023 insulin lispro (HumaLOG, ADM ELOG) 100 unit/mL injection 9 Units 1 10/06/2023 ketorolac (TORADOL) 30 mg/mL injection 15 mg 1 10/06/2023 labetaloL (NORMODYNE,TRANDAT E) injection 5 mg 1 10/06/2023 Lactated Ringer's (LR) infusion 1 lidocaine (XYLOCAINE) 10 mg/ mL (1 %) injection 2-10 mg 1 10/06/2023 meclizine (ANTIVERT) tablet 25 mg 1 meperidine (DEMEROL) preserv ative free injection 25 mg 1 10/06/2023 morphine injection 1 10/06/2023 naloxone (NARCAN) 0.4 mg/mL injection 0.04-0.4 mg 1 10/06/2023 ondansetron (ZOFRAN) injection 4 mg 2 10/05 polyethylene glycol (MIRALAX) packet 17 g 1 10/06/2023 propranoloL (INDERAL) tablet 20 mg 1 2023 sodium chloride 0.9% flush 0.5-20 mL 1 09/24 SUMAtriptan (IMITREX) tablet 50 mg 1 2023 tranexamic acid (CYKLOKAPRON ) 1,000 mg/10 mL (100 mg/mL) solution 2,000 mg 1 10/06/2023 zolpidem (AMBIEN) tablet 5 mg 1 10/06/2023 Lab Orders Without Results Count Last Ordered D ate First Ordered Date POCT GLUCOSE DEVICE 11 10/07/2023 10/06/19 General Supply Count Last Ordered Date First Or dered Date WALKER 1 10/07/2023 Nursing Count Last Ordered Date First Orde red Date DISCHARGE ACTIVITY 1 10/07/2023 DISCHARGE DRESSING 2 10/07/2023 WEIGHT BEARING STATUS 1 10/07/2023 BLADDER SCAN 1 10/06/2023 Consult Count Last Ordered Date First Orde red Date IP CONSULT TO REFRIGERATOR CAR ICER 1 Admission Count Last Ordered Date First Orde red Date INITIATE OUTPATIENT IN A BED 1 10/06/2023 Discharge Count Last Ordered Date First Orde red Date DISCHARGE PATIENT 1 10/07/2023 documented in this encounter Care Teams Sample Maker Relationship Specialty Start Date End Date Eron Holliday NP [address] [place] [id number] PCP - General Pain Management 07/15/22 Marialuisa Daniel NP [address] [place] [id number] Nurse Practitioner Endocrinology Diabetes & Metabolism 09/22/23 Leobardo Bhagat MD [address] [place] [address] [address] Consulting Physician Nephrology 09/22/23 [place] [id number] [address] Consulting Physician Cardiovascular Disease 09/22/23 documented as of this encounter
--- OUTSIDE RECORDS SUMMARY | 2024-03-03 15:34 | XMS_ITS | Encounter Summary ---
Author Organization [facility] Healthcare Address [address] [place] [id number] Care Team Providers Care Environment Artist Name Role Phone Eron Holliday NP Primary Care Provider [phone] Marialuisa Daniel NP Unavailable [phone] Leobardo Bhagat MD Unavailable [phone] Florin Dixon MD Unavailable Reason for Referral * Diagnostic Imaging (Routine) - Closed Specialty Diagnoses / Procedures Referred By Claudette smith Referred To Contact Diagnoses Type 2 diabetes mellitus with hyperglycemia, with long-term current use of insulin (HCC) Procedures RetinaVue Scanner - OU - Both Eyes Marialuisa Daniel NP [address] [place] [address] Phone: tel: fax: [facility] Medical Group Referral ID Status Reason Start Date Expiration Date Visits Re quested Visits Authorized [id number] Closed 10/09/2023 11/07/2024 1 1 Encounter Details Date Type Department Care Team (Late st Contact Info) Description 10/10/2023 11:00 AM CDT Telemedicine [facility] Medical Group Diabetes Endocrine Care at [address] [place] [phone] Marialuisa Daniel, SPRAY PAINTER [address] [place] [address] Type 2 diabetes mellitus with hyperglycemia, with long-term current use of insulin (HCC) (Primary Dx); Hyperlipidemia associated with type 2 diabetes mellitus (HCC); dexcom 7 continous glucose monitor; Class 1 obesity due to excess calories with serious comorbidity and body mass index (BMI) of 34.0 to 34.9 in adult Social History Tobacco Use Types [...] materials from doctor or pharmacy Never 10/12/2023 [facility] Utilities Answer Date Recorded In the past 12 months has e [employer], gas, oil, or water [employer] threatened to shut off services in your [...] often do you attend chur ch or scientology services? Never 10/07/2023 Do you belong to [...] were you homeless or living in a alf (including now)? No 10/07/2023 Personal Safety Answer Date Recorded Have you ever been in or are you currently in a harmful physical or emotional relationship or is someone making you feel afraid or unsafe? 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 I am thankful you have trusted me with your care, and hope that you received EXCELLENT care today! Please do not hesitate to call if you have any questions or concerns at [phone]. You may receive a phone call or text asking about your care today. I would love to hear your input and again, hope your visit was as EXCELLENT as possible, even if you were not feeling your best! Medications: Please take medications as prescribed. Continue on omnipod [employer] insulin delivery system Continue metformin 1000mg twice a day. Continue Jardiance 25 mg p.o. daily Continues mounjaro 7.5mg weekly Monitoring: Check blood sugar continuously with Dexcom 7. We will be requesting to see blood [...] than once per week. See the Dietitian, Labor Delivery Rn . Call Centralized Scheduling at [phone] to make an appointment. Exercise: Try moving [...] Progress Notes * Marialuisa Daniel NP - 10/10/2023 11:00 AM CDT Images from the original note were not included. Patient ID: Sandy Lopez is a 58 y.o. female. Chief Complaint No chief complaint on file. Today visit is a follow up visit. She has Type 2 Diabetes associated with microalbuminurea. She does not exercises but stays active with family and friends. 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 She is at home recovering. She eats 2-3 meals/day. She monitors blood sugar by wearing the DexCom6 sensor and receives insulin per the Omnipod insulin delivery system. She denies hypoglycemia. Herweight has decreased by 11lbs since her last office visit. She has one grand son, named Kristian and her daughter is expecting her 2nd grandchild. Today's visit is to review labs and discuss future plan. Diabetes regimen: continue Omnipod -Basal 0000-2.55, 0400-2.6, IC -6, ISF-20, Active insulin time 3hrs., TARGET GLUCOSE 110- correct above 120. Continue Metformin 1000mg twice a day. Continue Jardiance 25 mg p.o. daily. Continue mounjaro 7.5mg weekly Failed Trulicity stopped 10/29/2022. Failed victoza [...] Negative for difficulty urinating and frequency. Musculoskeletal: Positive for arthralgias and gait problem. Negative for neck pain. Skin: Negative for rash. Neurological: Negative for dizziness, weakness and numbness. Psychiatric/Behavioral: Negative for confusion. The patient is not nervous/anxious. Physical Exam Constitutional: Appearance: Normal appearance. She is obese. HENT: Head: Normocephalic. Right Ear: External ear normal. Left Ear: External ear normal. Nose: Nose normal. Mouth/Throat: Mouth: Mucous membranes are moist. Pulmonary: Effort: Pulmonary effort is normal. Skin: General: Skin is warm and dry. [...] long-term current use of insulin (HCC) (Primary) Assessment & Plan: This is a [...] ratio - abnormal. Goal is <30. Continue losartan-HCTZ Orders: - POCT glucose - Lipid panel; Future - Albumin Creatinine Ratio, Urine; Future - RetinaVue Scanner - OU - Both Eyes Hyperlipidemia associated with type 2 diabetes mellitus (HCC) Assessment & Plan: This is a chronic condition which is at goal . Goal is LDL less than 70 Continue atorvastatin, Zetia Encouraged to eat healthy, include fresh fruits and vegetables daily and avoid eating fried foods more than once per week. dexcom 7 continous glucose monitor Assessment & Plan: Continuous glucose monitor (cgm) applied 09/26/23 to 10/09/23 This device was placed for monitor and treatment of blood sugar. Interpretation of data- average glucose 140, 83% time in range, 174% hyperglycemia, no hypoglycemianoted Class 1 obesity due to excess calories with serious comorbidity and body mass index (BMI) of 34.0 to 34.9 in adult Assessment & Plan: This is a chronic condition which continues 11 lbs. Weight loss since last office visit Continue mounjaro Encouraged healthy eating which includes a low carb diet. Avoiding processed foods, sweets and fried foods. Activity per PT as you heals from her total knee replacement Discussed the importance of keeping blood sugars at 1:50 a.m. to promote wound healing Discussed and educated on eating a healthy [...] Discussion of treatment plan and prescribed medications. No follow-ups on file. Marialuisa Daniel NP documented in this encounter Miscellaneous Notes * Assessment & Plan Note - Marialuisa Daniel NP - 10/10/2023 12:19 PM CDT Associated Problem(s): Class 1 obesity due to excess calories with serious comorbidity and body mass index (BMI) of 33.0 to 33.9 in adult This is a chronic condition which continues 11 lbs. Weight loss since last office visit Continue mounjaro Encouraged healthy eating which includes a low carb diet. Avoiding processed foods, sweets and fried foods. Activity per PT as you heals from her total knee replacement * Assessment & Plan Note - Marialuisa Daniel NP - 10/10/2023 12:18 PM CDT Associated Problem(s): dexcom 7 continous glucose monitor Continuous glucose monitor (cgm) applied 09/26/23 to 10/09/23 This device was placed for monitor and treatment of blood sugar. Interpretation of data- average glucose 140, 83% time in range, 174% hyperglycemia, no hypoglycemianoted * Assessment & Plan Note - Marialuisa Daniel NP - 10/10/2023 12:17 PM CDT Associated Problem(s): Hyperlipidemia associated with type 2 diabetes mellitus (HCC) This is a chronic condition which is at goal . Goal is LDL less than 70 Continue atorvastatin, Zetia Encouraged to eat healthy, include fresh fruits and vegetables daily and avoid eating fried foods more than once per week. * Assessment & Plan Note - Marialuisa Daniel NP - 10/10/2023 12:16 PM CDT Associated Problem(s): Type 2 diabetes mellitus with hypoglycemia [...] ratio - abnormal. Goal is <30. Continue losartan-HCTZ documented in this encounter Plan of Treatment Scheduled Orders Name Type Priority Associated Diagnoses Order Schedule POCT glucose Point of Care Testing Routine Type 2 diabetes mellitus with hyperglycemia, with long-term current use of insulin (HCC) Ordered: 10/09/2023 RetinaVue Scanner - OU - Both Eyes Ophthalmology Routine Type 2 diabetes mellitus with hyperglycemia, with long-term current use of insulin ([facility]) Ordered: 10/09/2023 documented as of this encounter Visit Diagnoses Diagnosis Type 2 diabetes mellitus with hyperglycemia, with long-term current use of insulin (HCC)- Primary Hyperlipidemia associated with type 2 diabetes mellitus (HCC) dexcom 7 continous glucose monitor Class 1 obesity due to excess calories with serious comorbidity and body mass index (BMI) of 34.0 to 34.9 in adult documented in this encounter Discontinued Medications Medication Sig Discontinue Reason Start Date End Da te Dexcom G6 Train Electronic Technician miscIndications:Type 2 diabetes mellitus with hyperglycemia, with long-term current use of insulin (HCC) USE TO TEST BLOOD SUGAR DIRECTED Therapy completed 08/22/2021 10/10/2023 Dexcom G6 Transmitter deviceIndications:Type 2 diabetes mellitus with hyperglycemia, with long-term current use of insulin ([facility]) USE TO TEST BLOOD SUGAR TWICE A DAY Therapy completed 05/28/2022 10/10/2023 documented as of this encounter Care Teams Environment Artist Relationship Specialty Start Date End Date Eron Holliday NP [address] [place] [address] [place] [address] PCP - General Pain Management 07/15/22 Marialuisa Daniel, CHRISTOPHER [address] [place] [address] Nurse Practitioner Endocrinology Diabetes & Metabolism 09/22/23 Leobardo Bhagat MD [address] [place] [id number] Consulting Physician Nephrology 09/22/23 [place] [id number] [address] Consulting Physician Cardiovascular Disease 09/22/23 documented as of this encounter
--- OUTSIDE RECORDS SUMMARY | 2024-03-03 15:34 | XMS_ITS | Encounter Summary ---
Author Organization [facility] Healthcare Address [address] [place] [address] Care Team Providers Care Medical Reimbursement Specialist Name Role Phone Eron Holliday NP Primary Care Provider [phone] Marialuisa Daniel NP Unavailable [phone] Leobardo Bhagat MD Unavailable [phone] Florin Dixon MD Unavailable Reason for Visit * Auth/Cert (Routine) Specialty Diagnoses / Procedures Referred By Claudette t Referred To Contact Referral ID Status Reason Start Date Expiration Date Visits Re quested Visits Authorized [id number] 1 2 Encounter Details Date Type Department Care Team (Latest Contact Info) Description 10/14/2023 11:00 AM CDT Home Care Visit [address] [address] [address] [place] [address] Lei So, PT PT INITIAL EVALUATION Social History Tobacco Use Types Packs/Day Years [...] materials from doctor or pharmacy Never 10/12/2023 [facility] Utilities Answer Date Recorded In [...] often do you attend chur ch or synagogue services? Never 10/07/2023 Do you belong to any clubs o r organizations such as spiritism groups, unions, fraternal or athletic groups, or [...] in the past 12 m [facility], were you homeless or living in a [facility] (including now)? No 10/07/2023 Personal Safety Answer Date Recorded Have you ever been in or are you currently in a harmful physical or emotional relationship or is someone making you feel afraid or unsafe? 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 Gender Identity Female 12/26/2023 10:11 PM CDT Sexual Orientation Straight 12/26/2023 10 :11 PM CDT Occupation Industry Job Start Date Job End Date [employer] Not on file Not on file Not on file documented as of this encounter Last Filed Vital Signs Vital Sign Reading Time Taken Comments Blood Pressure 136/62 10/14/2023 11:22 AM CDT Pulse 74 10/14/2023 11:22 AM CDT Temperature 36.2 ??C (97.1 ??F) 10/14/2023 11:22 AM C DT Respiratory Rate 18 10/14/2023 11:22 AM CDT Oxygen Saturation 96% 10/14/2023 11:22 AM CDT Inhaled Oxygen Concentration - - Weight - - Height - - Body Mass Index - - documented in this encounter Miscellaneous Notes * Home Health Visit Narrative - Lei So, PT - 10/14/2023 11:19 AM CDT Patient is a 58 year old female s/p right TKA surgery on 10/06/23. WBAT. Per discharge paperwork, okay to remove dressing on postoperative day #[address] dry dressing daily or as needed Incision must stay dry and covered for showers until deanna are removed in 2-weeks. Do not apply lotions or ointments to skin incision. Therefore I did remove dressing, replaced with dry island dressing. Incision healing nicely, no s/s of infection. Patient currently lacks right knee extension and flexion range of motion and right knee strength, which limits her mobility. Skilled PT appropriate to address. PMH: Anxiety, Arthritis, Depression, Diabetes, Dizziness, GERD (gastroesophageal reflux disease), High blood pressure, diabetes Home Setup: 4WW, staying in father's home, in basement. 11-12 steps with single handrail. 3-4 stepsfront entrance with bilat handrail PLOF: independent TUs with 4WW Plan: PT 2w2 for LE strengthening, gait training, stair navigation training, balance training, transfer training, home safety training, fall risk reduction training, patient education. 72 degrees right knee flexion -7 degrees right knee extension * Home Health Plan for Next Visit - Lei So PT - 10/14/2023 11:19 AM CDT Reason for today's visit: homecare PT evaluation Discussed plan of care interventions with the patient, who is agreeable. Discharge planning: ongoing Plan for next visit: LE strengthening and range of motion, gait training focus. documented in this encounter Plan of Treatment Not on file documented as of this encounter Visit Diagnoses Not on filedocumented in this encounter Home Health Visit - Care Plan Visit Details Visit Type -PT Initial Evalu ation Discipline -Physical Therapy Problems Problem Description Start Date Status Goals Interve ntions Homebound Status Disciplines: Skilled Disciplines Patient's homebound status 10/13/2023 Active 1 goal linked to scheduled/documen mariama intervention 1 goal intervention scheduled/documen mariama in this visit Monitor patient's vital signs every home health visit Disciplines: SN, PT, OT, RECEPTION MANAGER, DISABILITY SPECIALIST, Skilled Disciplines Monitor patient's vital signs every home health visit. 10/13/2023 Active 1 goal linked to scheduled/documen mariama intervention 1 goal intervention scheduled/documen mariama in this visit Infection Prevention Disciplines: Skilled Disciplines Infection Prevention 10/13/2023 Active 1 goal linked to scheduled/documen mariama intervention 2 goal interventions scheduled/documen mariama in this visit Wound Education and Management Disciplines: Core Disciplines Knowledge deficit related to wound management and risk of infection. 10/13/2023 Active 1 goal linked to scheduled/documen mariama intervention 1 goal intervention scheduled/documen mariama in this visit Wound Care Disciplines: Core Disciplines Right Knee 10/13/2023 Active 1 goal linked to scheduled/documen mariama intervention 1 goal intervention scheduled/documen mariama in this visit PT Orthopedic-Total Joint Replacement Disciplines: Physical Therapy Total Joint Replacement of right knee 10/14/2023 Active - 3 problem interventions scheduled/documen mariama in this visit Goals Goal Associated Problem Outcome Goal Met? Visit Notes Patient receives care at the most appropriate care setting Description: Patient receives care at the most appropriate care setting. Homebound Status No Measure vital signs during every home health visit during episode of care Description: Home environmental engineer scientist to measure vital signs during every home health visit during episode of care. Monitor patient's vital signs every home health visit No Verbalize signs of infection Description: Patient/caregiver will demonstrate knowledge of infection prevention strategies by verbalizing signs and symptoms of infection. Infection Prevention No Knowledgeable of Wound Management Description: Patient/caregiver will be knowledgeable on management of wound and when to seek medical attention as evidenced by progressive wound healing and patient/caregiver ability to verbalize signs and symptoms to report to physician or Home Health Agency. Patient will remain free of infection and able to recognize signs of infection as long as alteration in skin integrity exists or until patient is discharged from home health services. Wound Education and Management No Progression towards healing Description: Wound show progression towards healing by 11/13/2023 Wound Care No Interventions Intervention Associated Problem/Goal Status Variance Visit Notes Homebound Status Description: Patient is homebound due to limited ambulation as evidenced by 10/12/2023 Problem:Homebound Status Goal:Patient receives care at the most appropriate care setting Completed Patient is homebound due to limited ambulation as evidenced by 10/12/2023 Monitor Vital Signs Description: Monitor blood pressure, pulse, oxygen saturation, respirations Problem:Monitor patient's vital signs every home health visit Goal:Measure vital signs during every home health visit during episode of care Completed Educate Patient on Infection Prevention Description: Instruct patient on signs and symptoms of infection IE: fever, odor, change in color, increased amount of drainage, purulent drainage, warmth. Problem:Infection Prevention Goal:Verbalize signs of infection Completed Instructed patient on signs and symptoms of infection including fever, odor, change in color, increased amount of drainage, purulent drainage, warmth. patient verbalizes good understanding of instructions and provides safe verbalization/return demonstration of instructions. Educate Family on Infection Prevention Description: Instructed family on signs and symptoms of infection IE: fever, odor, change in color, increased amount of drainage, purulent drainage, warmth. Problem:Infection Prevention Goal:Verbalize signs of infection Completed n/a - patients father present but upstairs Educate on Wound Care Management Description: Instruct patient/caregiver on wound management including: ordered wound care, utilizing clean technique, appropriate hand hygiene, and disposal of dressings. Instruct patient/caregiver on nutrition and hydration needs for altered skin integrity, signs and symptoms of infection and/or wound deterioration to report to home health agency and or physician. Problem:Wound Education and Management Goal:Knowledgeable of Wound Management Completed Instruct patient/caregiver on wound management including: ordered wound care, utilizing clean technique, appropriate hand hygiene, and disposal of dressings. Instruct patient/caregiver on nutrition and hydration needs for altered skin integrity, signs and symptoms of infection and/or wound deterioration to report to home health agency and or physician. Perform dressing change Description: Perform dressing change: Site#1 Right Knee Skilled Nurse and Patient to perform dressing change as of 10/12/2023, Frequency of Daily and PRN for excess drainage or dislodgement of dressing. Wound care as follows: apply dry dressing to wound bed. do not submerge right knee in water for 4 weeks post op. Patient to perform wound care in homecare's absence. per referral order by Dr. Edwards Date Order Received: 10/07/2023 Problem:Wound Care Goal:Progression towards healing Completed performed per [facility] Home Exercise Program (HEP) Description: Instruct patient/caregiver and perform HEP. Problem:PT Orthopedic-Total Joint Replacement Completed instructed to continue HEP X 10-20 reps BID as tolerated. issued handouts for reference. patient verbalizes good understanding of instructions and provides safe verbalization/return demonstration of instructions Gait/Stair Training Description: Instruct patient/caregiver and perform gait/stair training. Problem:PT Orthopedic-Total Joint Replacement Completed instructed to rest as needed, gradually increase walking program as tolerated and use assistive device as needed for safety. patient verbalizes good understanding of instructions and provides safe verbalization/return demonstration of instructions. Therapeutic Exercise Description: Perform therapeutic exercise, progressing as tolerated. Problem:PT Orthopedic-Total Joint Replacement Completed supine ankle pumps, quad sets, heel slides, SAQ, SLR x 10 repetitions each. patient tolerates well. Mild extensor lag during right SLR. documented in this encounter Care Teams Medical Reimbursement Specialist Relationship Specialty Start Date End Date Eron Holliday NP [address] [facility] [address] PCP - General Pain Management 07/15/22 Marialuisa Daniel NP [address] [place] [address] [place], [place] [id number] Nurse Practitioner Endocrinology Diabetes & Metabolism 09/22/23 Leobardo Bhagat MD [address] [place] [address] [address] Consulting Physician Nephrology 09/22/23 [place] [id number] [address] Consulting Physician Cardiovascular Disease 09/22/23 documented as of this encounter
--- OUTSIDE RECORDS SUMMARY | 2024-03-03 15:34 | XMS_ITS | Encounter Summary ---
Author Organization [facility] Healthcare Address [address] [place] [address] Care Team Providers Care Epidemiologist Name Role Phone Eron Holliday NP Primary Care Provider [phone] Marialuisa Daniel NP Unavailable [phone] Leobardo Bhagat MD Unavailable [phone] Florin Dixon MD Unavailable Reason for Visit * Reason Comments PT Initial Eval * Physical Therapy (Routine) - Authorized Specialty Diagnoses / Procedures Referred By Claudette smith Referred To Contact Physical Therapy Diagnoses Aftercare following right knee joint replacement surgery Yoan Edwards PA [address] [place] [address] [address] THAK[address] [place] [address] Phone: tel: fax: Regi Khan DO [address] [place] [address] DR THAKUR [address] [place] [address] Phone: tel: fax: Referral ID Status Reason Start Date Expiration Date Visits Requested Visits Authorized [id number] Authorized Specialty Services Required 10/21/2023 10/23/2024 36 18 Encounter Details Date Type Department Care Team (Late st Contact Info) Description 10/23/2023 8:[address] 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 Physical Therapy Evaluation /Initial Certification 10/23/2023 Sandy Lopez 1965 58 y.o. female YOAN EDWARDS ICD-10-CM 1. Aftercare following right knee joint replacement surgery Z47.1 Ambulatory referral order to Physical Therapy - Z96.651 Past Medical History: Diagnosis Date Anxiety Arthritis Arthropathy of cervical facet joint DDD (degenerative disc disease), cervical Depression Diabetes ([facility]) Dizziness Foraminal stenosis of cervical region GERD (gastroesophageal reflux disease) H/O insulin dependent diabetes mellitus High blood pressure Hyperlipidemia Insulin pump in place omnipod dash Obesity PAD (peripheral artery disease) ([facility]) with stent placed on right side Second hand smoke exposure Stomach ulcer Type 1 diabetes mellitus ([facility]) 08/04/2018 Uncontrolled type 2 diabetes mellitus with hyperglycemia ([facility]) 03/14/2017 Uncontrolled type 2 diabetes mellitus with hyperglycemia, with long-term current use of insulin ([facility]) 04/03/2017 Uses self-applied continuous glucose monitoring device Wears partial dentures Past Surgical History: Procedure Laterality Date CARPAL TUNNEL RELEASE SECTION ELBOW SURGERY ESOPHAGOGASTRODUODENOSCOPY 2023 showed some erosion KNEE ARTHROSCOPY TONSILLECTOMY Fiscal Specialist Services Utilized: NO Patient is identified by name and date of on this visit. Visits: 1 Subjective: History of Present Condition Surgical Patient: [...] been resting and using her ice machine. Current pain ratin/10 At worst pain ratin/10 Function Current Functional Deficits: Unable to walk with WW. Difficulty with ADLs, transfers, squatting ,climbing. Functional Status (just prior to the onset of the treating condition requiring therapy): Walked normal. Climbed stairs SOS normal. 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 Hobbies: Dining out, Alevism Equipment Used: WW Lives in: 1 story, basement Support at Home: Dad Cognitive Status: follows directions and able to answer questions independently Objective: Observations: Wheeled Walker. Steri strips intact. Bruising at R pre-tibial region. 17 cm incision. Active Range of Motion R L Knee flexion 75 deg. 130 deg. Knee Extension -15 deg. +1 deg. R knee PROM: -6 - 82 degrees Strength R L Hip flexion 4 /5 5 /5 Hip extension 5/ 5 5 /5 Hip abduction 4 /5 4 /5 Knee flexion 4 /5 5 /5 Knee Extension 4- /5 5 /5 Ankle dorsiflexion 4 /5 5 /5 Ankle plantarflexion 4 /5 4+ /5 Circumferential Measures R L 10cm superior to knee jt line NA NA Suprapatellar pole 43 40 Knee joint line 40 38 Mid Calf 38 38 Gait Assessment: WW, Moderate antalgic R stance. Transfers: Mod Indep Sit to stand. Palpation: Mild gross TTP at R knee LEFS: Treatment Performed on This Visit: Manual Therapy: R knee PROM Therapeutic Procedure/Exercise: Knee ROM, strengthening Modalities: NA HEP given: Handout Patient education: PT impression, PT post op POC. Assessment: Rehab potential or prognosis: good Patient participated in establishing goals. The patient requires additional skilled physical therapy services for R knee mobility, and for return to prior level of function. The patient presents over 2 weeks s/p R TKR. Impairments include lossof R knee ROM, mild swelling, weakness, gait deviations. Tx emphasis on reducing symptoms and improving on identified impairments to improve function related to walking, transfers, squatting. PT Diagnosis/Impairment List: R TKR 10/06/23 Precautions: [...] DATES: From 10/23/23 to 01/15/2024 (12 weeks) Plan: Patient will benefit from skilled physical therapy services 2 times per week for 12 weeks. Treatment may include: therapeutic exercise, manual therapy, gait/transfer training, neuromuscular re-education, modalities as needed, functional activities, patient education, and home exercise program. Patient educated and acknowledged understanding of therapy diagnosis, prognosis, pain relief instructions, precautions, risks, benefits and agree with the treatment plan and goals. Patient will be discharged from therapy upon completion of goals, physician order, or when therapist determines patient is appropriate for discharge from skilled therapy services. Jesse Pride PT [facility] ATTENTION PHYSICIAN If you are unable to electronically sign this document, please print this document and sign below to certify this plan of care/treatment plan. By signing this document, I certify that I have reviewedthis plan of care and support the treatment. Please fax back to . Thank you. Provider Signature: Date: * Jesse Pride PT - 10/23/2023 8:00 AM CDT ICD-10-CM 1. Aftercare following right knee joint replacement surgery Z47.1 Ambulatory referral order to Physical Therapy - Z96.651 YOAN EDWARDS PT Diagnosis/Impairment List: R TKR [...] (12 weeks) Date Date Date Date 10/23/23 Visit Number 1 ADDITIONAL HEP SHEETS ISSUED NuStep 8' lvl 1 Seat #6 Side Stepping // bars 5x Mini Squats 10 Heel Raises 15 Forward Lunge - Mini 15 Heel SLides 15 Heel SLides with strap 15 Long sitting HS / Calf towel str. 5x / 10 Towel calf stretch w/ heel prop 3x / 20 QS w heel prop 15 SLR flex 15 Ball Sq 15 SAQ 15 B Leg Press R Leg Press Progress Note/Re-Cert documented in this encounter Plan of Treatment Not on file documented as of this encounter Visit Diagnoses Diagnosis Primary osteoarthritis of right knee- Primary Aftercare following right knee joint replacement surgery documented in this encounter Orders Outpatient Referral Count Last Ordered Date st Ordered Date AMB REFERRAL ORDER TO PHYSICAL THERAPY 1 documented in this encounter Care Teams Epidemiologist Relationship Specialty Start Date End Date Eron Holliday NP [address] [facility] [place] [address] PCP - General Pain Management 07/15/22 Marialuisa Daniel NP [address] [facility] [place] [address] Nurse Practitioner Endocrinology Diabetes & Metabolism 09/22/23 Leobardo Bhagat MD [address] [place] [address] [address] Consulting Physician Nephrology 09/22/23 [place] [id number] [address] Consulting Physician Cardiovascular Disease 09/22/23 documented as of this encounter
--- OUTSIDE RECORDS SUMMARY | 2024-03-03 15:34 | XMS_ITS | Encounter Summary ---
Author Organization [facility] Healthcare Address [address] [place] [address] Care Team Providers Care Dough Braker Name Role Phone Eron Holliday NP Primary Care Provider [phone]- [phone] Marialuisa Daniel NP Unavailable [phone] Leobardo Bhagat MD Unavailable Florin Dixon MD Unavailable Reason for Visit * Auth/Cert (Routine) Specialty Diagnoses / Procedures Referred By Claudette smith Referred To Contact Referral ID Status Reason Start Date Expiration Date Visits Re quested Visits Authorized [id number] 1 2 Encounter Details Date Type Department Care Team (Late st Contact Info) Description 10/17/2023 Home Care Visit [facility] Health [place] [address] [address] [place] [id number] Tania Messian RN SN TRIAGE ENCOUNTER Social History Tobacco Use Types Packs/Day [...] materials from doctor or pharmacy Never 10/12/2023 [facility] Utilities Answer Date Recorded In the [...] often do you attend chur ch or orthodox services? Never 10/07/2023 Do you belong to any clubs o r organizations such as confucianism groups, unions, fraternal or athletic groups, or [...] any time in the past 12 m [facility], were you homeless or living [...] on file Legal Sex Female 8:53 AM SUPERVISOR MODERN LANGUAGES Gender Identity Female 12/26/2023 10:11 PM CDT Sexual Orientation Straight 12/26/2023 10 :11 PM CDT Occupation Industry Job Start Date Job End Date [employer] Not on file Not on file Not on file documented as of this encounter Miscellaneous Notes * Triage Note - Tania Messina RN - 10/17/2023 10:45 AM CDT Hydraulic Hammer Operator: Sandy Lopez Relationship to patient: patient Phone number of field contact person: [phone] Return call time: 11an Communication details: Patient states she would like to be discharged so she can begin out patient PT. Patient requests call back to confirm discharge. Conveyed will forward to care team for follow-up. Follow-up:emailed care team, Charge Nursies, Schedulers documented in this encounter Plan of Treatment Not on file documented as of this encounter Visit Diagnoses Not on filedocumented in this encounter Home Health Visit - Care Plan Visit Details Visit Type -SN Triage Encoun ter Discipline -Fdc Problems Problem Description Start Date Status Goals Interve ntions Learning/Teachin g Needs - Diabetes Disciplines: Fdc Learning and teaching needs associated with diagnosis 10/13/2023 Active 1 goal linked to scheduled/documen mariama intervention 7 goal interventions scheduled/documen mariama in this visit Disease Management - Diabetes Disciplines: Fdc Management of diabetes symptoms 10/13/2023 Active 1 goal linked to scheduled/documen mariama intervention 3 goal interventions scheduled/documen mariama in this visit Homebound Status Disciplines: Skilled Disciplines Patient's homebound status 10/13/2023 Active 1 goal linked to scheduled/documen mariama intervention 1 goal intervention scheduled/documen mariama in this visit Monitor patient's vital signs every home health visit Disciplines: SN, PT, OT, SPEECH PATHOLOGIST, STAFF COMMAND AND CONTROL OFFICER, Skilled Disciplines Monitor patient's vital signs every [...] goal intervention scheduled/documen mariama in this visit Goals Goal Associated Problem Outcome Goal Met? Visit Notes Demonstrate adequate knowledge of Diabetes Description: Patient/caregiver will demonstrate adequate knowledge of diabetes as evidenced by the ability to perform blood sugar monitoring, care of feet, skin and eyes and signs/symptoms of altered glycemic states and their treatment by the end of the episode of care. Learning/Teaching Needs - Diabetes No Verbalize prevention of Diabetic complications Description: Patient/caregiver to demonstrate knowledge of diabetes as evidenced by ability to verbalize proper foot care and signs and symptoms of infection and skin breakdown to report to physician. Disease Management - Diabetes No Patient receives care at the most appropriate care setting Description: Patient receives care at the most appropriate care setting. Homebound Status No Measure vital signs during every home health visit during episode of care Description: Home pulmonary physician to measure vital signs during every home [...] Intervention Associated Problem/Goal Status Variance Visit Notes Instruct diet Description: Instruct on diabetic diet and any fluid restrictions/requirements. Problem:Learning/Teaching Needs - Diabetes Goal:Demonstrate adequate knowledge of Diabetes Scheduled Instruct daily log Description: SN to develop blood sugar diary for patient to record all blood sugar readings in accordance with MD's Orders. Instruct when to call MD/RN or 911. Agency parameters: Call MD for blood sugar <70 for 3 days in a row or >240 for 3 days in a row or as instructed by MD. Problem:Learning/Teaching Needs - Diabetes Goal:Demonstrate adequate knowledge of Diabetes Scheduled Instruct sick day Description: Instruct patient/caregiver in Sick Day Guidelines. Problem:Learning/Teaching Needs - Diabetes Goal:Demonstrate adequate knowledge of Diabetes Scheduled Instruct on signs and symptoms of hyperglycemia Description: Instruct patient/caregiver in signs/symptoms of hyperglycemia. Problem:Learning/Teaching Needs - Diabetes Goal:Demonstrate adequate knowledge of Diabetes Scheduled Instruct s/s of hypoglycemia Description: Instruct patient/caregiver on the signs and symptoms of hypoglycemia. Problem:Learning/Teaching Needs - Diabetes Goal:Demonstrate adequate knowledge of Diabetes Scheduled Blood glucose monitoring Description: Patient/caregiver to perform blood sugar testing and record in log. Frequency of testing QID Problem:Learning/Teaching Needs - Diabetes Goal:Demonstrate adequate knowledge of Diabetes Scheduled Teach diabetes Description: Provide patient with diabetic education booklet and instruct on material. Problem:Learning/Teaching Needs - Diabetes Goal:Demonstrate adequate knowledge of Diabetes Scheduled Assess Diabetes: Monitor for the presence of skin lesions on the lower extremity Description: Monitor for the presence of skin lesions on the lower extremity. Problem:Disease Management - Diabetes Goal:Verbalize prevention of Diabetic complications Scheduled Assess Diabetes: Knowledge Deficit Description: Assess for knowledge deficit of diabetes management Problem:Disease Management - Diabetes Goal:Verbalize prevention of Diabetic complications Scheduled Educate on foot care Description: Educate patient/caregiver on proper foot care. Problem:Disease Management - Diabetes Goal:Verbalize prevention of Diabetic complications Scheduled Homebound Status Description: Patient is homebound due to limited ambulation as evidenced by 10/12/2023 Problem:Homebound Status Goal:Patient receives care at the most appropriate care setting Scheduled Monitor Vital Signs Description: Monitor blood pressure, pulse, oxygen saturation, respirations Problem:Monitor patient's vital signs every home health visit Goal:Measure vital signs during every home health visit during episode of care Scheduled Educate Patient on Infection Prevention Description: Instruct patient on signs and symptoms of infection IE: fever, odor, change in color, increased amount of drainage, purulent drainage, warmth. Problem:Infection Prevention Goal:Verbalize signs of infection Scheduled Educate Family on Infection Prevention Description: Instructed family on signs and symptoms of infection IE: fever, odor, change in color, increased amount of drainage, purulent drainage, warmth. Problem:Infection Prevention Goal:Verbalize signs of infection Scheduled Educate on Wound Care Management Description: Instruct patient/caregiver on wound management including: ordered wound care, utilizing clean technique, appropriate hand hygiene, and disposal of dressings. Instruct patient/caregiver on nutrition and hydration needs for altered skin integrity, signs and symptoms of infection and/or wound deterioration to report to home health agency and or physician. Problem:Wound Education and Management Goal:Knowledgeable of Wound Management Scheduled Perform dressing change Description: Perform dressing change: [...] Received: 10/07/2023 Problem:Wound Care Goal:Progression towards healing Scheduled documented in this encounter Care Teams Dough Braker Relationship Specialty Start Date End Date Eron Holliday NP [address] [facility] [place] [address] PCP - General Pain Management 07/15/22 Marialuisa Daniel NP [address] [place] [address] [place] [address] Nurse Practitioner Endocrinology Diabetes & Metabolism 09/22/23 Leobardo Bhagat MD [address] [place] [address] Consulting Physician Nephrology 09/22/23 [place] [id number] [address] Consulting Physician Cardiovascular Disease 09/22/23 documented as of this encounter
--- OUTSIDE RECORDS SUMMARY | 2024-03-03 15:34 | XMS_ITS | Encounter Summary ---
Author Organization [facility] Healthcare Address [address] [place] [address] Care Team Providers Care Headline Writer Name Role Phone Eron Holliday NP Primary Care Provider [phone]- [phone] Marialuisa Daniel NP Unavailable [phone] Leobardo Bhagat MD Unavailable Florin Dixon MD Unavailable Reason for Visit * Auth/Cert (Routine) Specialty Diagnoses / Procedures Referred By Claudette t Referred To Contact Referral ID Status Reason Start Date Expiration Date Visits Re quested Visits Authorized [id number] 1 2 Encounter Details Date Type Department Care Team (Late st Contact Info) Description 10/22/2023 Home Care Visit [facility] Health [place] [address] [address] [place] [phone] Lei So, ADA PT VIRTUAL OASIS DISCHARGE Social History Tobacco Use Types Packs/Day Years [...] from doctor or pharmacy Never 10/22/2023 [facility] Utilities Answer Date Recorded In the [...] often do you attend chur ch or mu-ism services? Never 10/07/2023 Do you belong to any clubs o r organizations such as scientologist groups, unions, fraternal or athletic groups, or [...] any time in the past 12 m [facility], were you homeless or living in a intermediate (including now)? No 10/07/2023 Personal Safety Answer Date Recorded Have you ever been in or are you currently in a harmful physical or emotional relationship or is someone making you feel afraid or unsafe? 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 Therefore, virtual discharge completed MD notified. documented in this encounter Plan of Treatment Not on file documented as of this encounter Visit Diagnoses Not on filedocumented in this encounter Home Health Visit - Care Plan Visit Details Visit Type -PT Virtual OASIS Discharge Discipline -Physical Therapy Problems Problem Description Start Date Status Goals Interve ntions Homebound Status Disciplines: Skilled Disciplines Patient's homebound status 10/13/2023 Active 1 goal linked to scheduled/documen mariama intervention 1 goal intervention scheduled/documen mariama in this visit Monitor patient's vital signs every home health visit Disciplines: SN, PT, OT, HOSPITAL CLERK, RESEARCH PROGRAM COORDINATOR, Skilled Disciplines Monitor patient's vital signs every [...] visit during episode of care Description: Home forest products gatherer to measure vital signs during every home [...] Scheduled documented in this encounter Care Teams Headline Writer Relationship Specialty Start Date End Date Eron Holliday NP [address] [place] [address] PCP - General Pain Management 07/15/22 Marialuisa Daniel NP [address] [place] [address] [place] [address] Nurse Practitioner Endocrinology Diabetes & Metabolism 09/22/23 Leobardo Bhagat MD [address] [place] [address] [address] Consulting Physician Nephrology 09/22/23 [place] [id number] [address] Consulting Physician Cardiovascular Disease 09/22/23 documented as of this encounter
--- OUTSIDE RECORDS SUMMARY | 2024-03-03 15:34 | XMS_ITS | Encounter Summary ---
Author Organization [facility] Healthcare Address [address] [place] [address] Care Team Providers Care Cadd Operator Name Role Phone Eron Holliday NP Primary Care Provider [phone]- [phone] Marialuisa Daniel NP Unavailable [phone] Leobardo Bhagat MD Unavailable Florin Dixon MD Unavailable Encounter Details Date Type Department Care Team (Late st Contact Info) Description 10/23/2023 Plan of Care Documentation [facility] Medical Office Bldg 1 OP Physical Therapy [address] [place] [address] Social History Tobacco Use Types Packs/Day Years [...] the past 12 months has th e creads, oil, or water [employer] threatened to shut off services in your [...] any time in the past 12 m [facility], were you homeless or living in a chcf (including now)? No 10/07/2023 Personal Safety Answer Date Recorded Have you ever been in or are you currently in a harmful physical or emotional relationship or is someone making you feel afraid or unsafe? 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 Gender Identity Female 12/26/2023 10:11 PM CDT Sexual Orientation Straight 12/26/2023 10 :11 PM CDT Occupation Industry Job Start Date Job End Date [employer] Not on file Not on file Not on file documented as of this encounter Plan of Treatment Not on file documented as of this encounter Visit Diagnoses Not on filedocumented in this encounter Care Teams Cadd Operator Relationship Specialty Start Date End Date Eron Holliday NP [address] [place] [address] PCP - General Pain Management 07/15/22 Marialuisa Daniel NP [address] [place] [address] Nurse Practitioner Endocrinology Diabetes & Metabolism 09/22/23 Leobardo Bhagat MD [address] [place] [address] [address] Consulting Physician Nephrology 09/22/23 [place] [id number] [address] Consulting Physician Cardiovascular Disease 09/22/23 documented as of this encounter
--- OUTSIDE RECORDS SUMMARY | 2024-03-03 15:34 | XMS_ITS | Encounter Summary ---
Author Organization [facility] Healthcare Address [address] [place] [address] Care Team Providers Care Sueding Machine Tender Name Role Phone Eron Holliday NP Primary Care Provider [phone] Marialuisa Daniel NP Unavailable [phone] Leobardo Bhagat MD Unavailable Florin Dixon MD Unavailable Reason for Visit * Auth/Cert (Routine) Specialty Diagnoses / Procedures Referred By Claudette smith Referred To Contact Referral ID Status Reason Start Date Expiration Date Visits Re quested Visits Authorized [id number] 1 2 Encounter Details Date Type Department Care Team (Late st Contact Info) Description 10/15/2023 Home Care Visit [facility] Health [place] [address] [address] [place] [phone] Lei So, PT CASE COMMUNICATION Social History Tobacco Use Types Packs/Day Years [...] materials from doctor or pharmacy Never 10/12/2023 [facility] Utilities Answer Date Recorded In the [...] often do you attend chur ch or jewish services? 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 Not on file Not on file Not on file documented as of this encounter Plan of Treatment Not on file documented as of this encounter Visit Diagnoses Not on filedocumented in this encounter Care Teams Sueding Machine Tender Relationship Specialty Start Date End Date Eron Holliday NP [address] [place] [address] PCP - General Pain Management 07/15/22 Marialuisa Daniel NP [address] [place] [address] Nurse Practitioner Endocrinology Diabetes & Metabolism 09/22/23 Leobardo Bhagat MD [address] [place] [address] [address] Consulting Physician Nephrology 09/22/23 [place] [id number] [address] Consulting Physician Cardiovascular Disease 09/22/23 documented as of this encounter
--- OUTSIDE RECORDS SUMMARY | 2024-03-03 15:34 | XMS_ITS | Encounter Summary ---
Author Organization [facility] Healthcare Address [address] [place] [address] Care Team Providers Care Chemist Enzymes Name Role Phone Eron Holliday NP Primary Care Provider [phone]- [phone] Marialuisa Daniel NP Unavailable [phone] Leobardo Bhagat MD Unavailable Florin Dixon MD Unavailable Reason for Visit * Auth/Cert (Routine) Specialty Diagnoses / Procedures Referred By Claudette t Referred To Contact Referral ID Status Reason Start Date Expiration Date Visits Re quested Visits Authorized [id number] 1 2 Encounter Details Date Type Department Care Team (Late st Contact Info) Description 10/24/2023 Home Care Visit [facility] Health [place] [address] [address] [place] [phone] Kia Dickerson RN SN TRIAGE ENCOUNTER Social History Tobacco [...] doctor or pharmacy Never 10/22/2023 [facility] Utilities Answer Date Recorded In the past [...] in the past 12 m [facility], were you homeless or living in a [...] on file Legal Sex Female 8:53 AM COUNTER CONTROL OPERATOR Gender Identity Female 12/26/2023 10:11 PM CDT Sexual Orientation Straight 12/26/2023 10 :11 PM CDT 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 Patient Full Name: Sandy Lopez MRN: home health Patient???s Date of : 1965 Caller???s name: Sandy Relationship: Patient - Self Reason for call: Sandy would like to be discharged from home health services. She is attempting to schedule an appointment for outpatient PT and cannot do so. 2nd attempt Best call back number: Person completing form: Yuly Duarte Date: 2023-10-24 1057- Call forwarded to Care Team: [employer] requesting they contact patient. Follow-up: Call forwarded to Care Team: [employer] requesting they contact patient. documented in this encounter Plan of Treatment Not on file documented as of this encounter Visit Diagnoses Not on filedocumented in this encounter Home Health Visit - Care Plan Visit Details Visit Type -SN Triage Encoun ter Discipline -Half-Way Problems Problem Description Start Date Status Goals Interve ntions Learning/Teachin g Needs - Diabetes Disciplines: Half-Way Learning and teaching needs associated with diagnosis 10/13/2023 Active 1 goal linked to scheduled/documen mariama intervention 7 goal interventions scheduled/documen mariama in this visit Disease Management - Diabetes Disciplines: Half-Way Management of diabetes symptoms 10/13/2023 Active 1 goal linked to scheduled/documen mariama intervention 3 goal interventions scheduled/documen mariama in this visit Homebound Status Disciplines: Skilled Disciplines Patient's homebound status 10/13/2023 Active 1 goal linked to scheduled/documen mariama intervention 1 goal intervention scheduled/documen mariama in this visit Monitor patient's vital signs every home health visit Disciplines: SN, PT, OT, MANAGER CALL, CHECK OUT CASHIER, Skilled Disciplines Monitor patient's vital signs every [...] visit during episode of care Description: Home ornamental plasterer helper to measure vital signs during every home [...] Scheduled documented in this encounter Care Teams Chemist Enzymes Relationship Specialty Start Date End Date Eron Holliday NP [address] [facility] [place] [address] PCP - General Pain Management 07/15/22 Marialuisa Daniel NP [address] [facility] [place] [address] Nurse Practitioner Endocrinology Diabetes & Metabolism 09/22/23 Leobardo Bhagat MD [address] [place] [address] [address] Consulting Physician Nephrology 09/22/23 [place] [id number] [address] Consulting Physician Cardiovascular Disease 09/22/23 documented as of this encounter
--- OUTSIDE RECORDS SUMMARY | 2024-03-03 15:34 | XMS_ITS | Encounter Summary ---
Author Organization [facility] Healthcare Address [address] [place] [address] Care Team Providers Care Leadership Coach Name Role Phone Eron Holliday NP Primary Care Provider [phone] Marialuisa Daniel NP Unavailable [phone] Leobardo Bhagat MD Unavailable [phone] Florin Dixon MD Unavailable Reason for Visit * Auth/Cert (Routine) Specialty Diagnoses / Procedures Referred By Claudette t Referred To Contact Referral ID Status Reason Start Date Expiration Date Visits Re quested Visits Authorized [id number] 1 2 Encounter Details Date Type Department Care Team (Latest Contact Info) Description 10/12/2023 6:00 PM CDT Home Care Visit [address] [address] [address] [place] [address] Licha Schafer RN SN OASIS START OF CARE Social History Tobacco Use Types Packs/Day Years [...] materials from doctor or pharmacy Never 10/12/2023 [facility] Utilities Answer Date Recorded In [...] often do you attend chur ch or church services? Never 10/07/2023 Do you belong to [...] medical appointments or from getting medications? 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 Gender Identity Female 12/26/2023 10:11 PM CDT Sexual Orientation Straight 12/26/2023 10 :11 PM CDT Occupation Industry Job Start Date Job End Date [employer] Not on file Not on file Not on file documented as of this encounter Last Filed Vital Signs Vital Sign Reading Time Taken Comments Blood Pressure 122/58 10/12/2023 4:08 PM CDT Pulse 80 10/12/2023 4:08 PM CDT Temperature 36.5 ??C (97.7 ??F) 10/12/2023 4:08 PM CD T Respiratory Rate 18 10/12/2023 4:08 PM CDT Oxygen Saturation 98% 10/12/2023 4:08 PM CDT Inhaled Oxygen Concentration - - Weight - - Height - - Body Mass Index - - documented in this encounter Miscellaneous Notes * Home Health/Infusion Licha Pearl RN - 10/12/2023 3:11 PM CDT SITUATION Focus of Care: Primary osteoarthritis of right knee [M17.11] Arthritis of right knee [M17.11] Caregivers available: Father BACKGROUND Pertinent Medical History/Hospitalizations: RIGHT TOTAL KNEE ARTHROPLASTY (Right), DM type2 Prior Level of Functioning: Independent without assistive device Current Living Conditions/Safety Hazards: living in basement that requires to walk up 2 set of stairs to main level ASSESSMENT Abnormal assessment findings: none Medication Issues: none Re-hospitalization risk: moderate Barriers to care/social determinants: low RECOMMENDATIONS POC confirmed with Dr. Holliday Plan for my discipline: SNV 1 per week for wound/incision care Other disciplines ordered/recommended: PT Supply/HME/equipment needs or issues: wound supplies Follow ups needed: as needed * Quality Review - Piedad Talbot - 10/12/2023 3:11 PM CDT M0102 - Date of Physician-ordered Start of Care 10/10/2023 10/12/2023 Changed M0102 to 10/12/2023. There is a physician order for a specified SOC date. M1005 - Inpatient Discharge Date 10/06/2023 10/07/2023 Discharge date from facility documented as 10/07/2023. Changed to reflect correct discharge date. M2102_f - Types and Sources of Assistance - Supervision and safety 2- Non- agency caregiver(s) need training/ supportive service to provide assistance 1- Non- agency caregiver(s) currently provide assistance OASIS item is related to need/level of assistance due to cognitive impairments. Atleast response 1 as there's no cognitive intervention on the POC but patient has anxiety and depression. According to OASIS guidance, if patient would require supervision due to cognitive impairments, then [id number] should be answered 1-4 as appropriate. M1800 - Grooming 0- independent 2- needs assist Changed from 0 to 2. Patient needs supervision w/ ambulation due to limited ROM, generalized weakness, and falls risk. According to OASIS guidance, if patient requires standby assist OR verbal cues to groom self, due to physical/cognitive/environmental barriers to complete activities safely, then Code 2. M1810 - Dress Upper Body 0- independent 2- needs assist Changed from 0 to 2. Patient needs supervision w/ ambulation due to limited ROM, generalized weakness, and falls risk. According to OASIS guidance, if patient requires standby assistance (a ??pharmacy clerk??) to dress safely or requires verbal cueing/reminders due to physical/cognitive/environmental barriers to complete task safely, then Code 2. M1820 - Dress Lower Body 0- independent 2- needs assist Changed from 0 to 2. Patient needs supervision w/ ambulation due to limited ROM, generalized weakness, and falls risk. According to OASIS guidance, if patient requires standby assistance (a ??pharmacy clerk??) to dress safely or requires verbal cueing/reminders due to physical/cognitive/environmental barriers to complete task safely, then Code 2. M1830 - Bathing 2- interm assist shower 3- cont assist shower Changed from 2 to 3. Patient needs supervision w/ ambulation due to limited ROM, generalized weakness, and falls risk. According to OASIS, if patient is able to shower but requires constant supervision due to physical/cognitive/environmental barriers to bathe safely, then Code 3. M1840 - Toilet Transferring 0- independent 1- able w/ assist Changed from 0 to 1. Patient needs supervision w/ ambulation due to limited ROM, generalized weakness, and falls risk. According to OASIS guidance, if the patient requires supervision at all times to ambulate safely, then the patient would require assistance to get to/from the bathroom/toilet. Recommend Code 1. M1845 - Toileting Hygiene 0- independent 2- needs assist Changed from 0 to 2. Patient needs supervision w/ ambulation due to limited ROM, generalized weakness, and falls risk. According to OASIS guidance, if the patient needs help with adjusting lower body clothing due to physical/emotional impairments, then Code 2. M1850 - Transferring 1- able w/ min assist 2- unable to transfer self Changed from 1 to 2. Patient needs supervision w/ transfers due to limited ROM, generalized weakness, and falls risk. According to OASIS guidance, if patient needs an assisted device AND minimal human assistance due to physical/cognitive impairments to transfer safely, then Code 2. M1860 - Ambulation 2- w/ two hand device 3- only with supervision Changed from 2 to 3. Patient needs supervision w/ ambulation due to limited ROM, generalized weakness, and falls risk. According to OASIS guidance, if patient requires continuous supervision/assistance to ambulate safely due to physical/emotional impairments, then Code 3. [id number] - Self Care - Oral Hygiene: SOC/CÉSAR Performance 06. Independent - completes activity indep; no c/g assist 04. Supervision - verbal cues; contact guard assistance Activity Codes: Changed from Code 06 to Code 04 ?? Supervision. Patient needs supervision w/ ambulation due to limited ROM, generalized weakness, and falls risk. OASIS guidance states if the patient needs verbal cueing/touching/steadying or contact guard, then Code 04. [id number] - Self Care - Toileting Hygiene: SOC/CÉSAR Performance 06. Independent - completes activity indep; no c/g assist 04. Supervision - verbal cues; contact guard assistance Activity Codes: Changed from Code 06 to Code 04 ?? Supervision. Patient needs supervision w/ ambulation due to limited ROM, generalized weakness, and falls risk. OASIS guidance states if the patient needs verbal cueing/touching/steadying or contact guard, then Code 04. [id number] - Mobility - Chair/Tga-mc-Zbyha Transfer: SOC/CÉSAR Performance 06. Independent - completes activity indep; no c/g assist 04. Supervision - verbal cues; contact guard assistance Activity Codes: Changed from Code 06 to Code 04 ?? Supervision. Patient needs supervision w/ transfers & ambulation due to limited ROM, generalized weakness, and falls risk. OASIS guidance states if the patient needs verbal cueing/touching/steadying or contact guard, then Code 04. [id number] - Mobility - Toilet Transfer: SOC/CÉSAR Performance 06. Independent - completes activity indep; no c/g assist 04. Supervision - verbal cues; contact guard assistance Activity Codes: Changed from Code 06 to Code 04 ?? Supervision. Patient needs supervision w/ transfers & ambulation due to limited ROM, generalized weakness, and falls risk. OASIS guidance states if the patient needs verbal cueing/touching/steadying or contact guard, then Code 04. [id number] - Mobility - Walk 10 Feet: SOC/CÉSAR Performance 06. Independent - completes activity indep; no c/g assist 04. Supervision - verbal cues; contact guard assistance Activity Codes: Changed from Code 06 to Code 04 ?? Supervision. Patient needs supervision w/ ambulation due to limited ROM, generalized weakness, and falls risk. OASIS guidance states if the patient needs verbal cueing/touching/steadying or contact guard, then Code 04. [id number] - Mobility - Walk 50 Feet with Two Turns: SOC/CÉSAR Performance 06. Independent - completes activity indep; no c/g assist 04. Supervision - verbal cues; contact guard assistance Activity Codes: Changed from Code 06 to Code 04 ?? Supervision. Patient needs supervision w/ ambulation due to limited ROM, generalized weakness, and falls risk. OASIS guidance states if the patient needs verbal cueing/touching/steadying or contact guard, then Code 04. NM0329_O6 - Mobility - Walking 10 feet on uneven surfaces: SOC/CÉSAR Performance 06. Independent - completes activity indep; no c/g assist 04. Supervision - verbal cues; contact guard assistance M1028 - Active Diagnoses Clinician omitted 1-PVD or PAD;2- Diabetes Patient does have active diagnosis of DM & PVD/PAD documented by the MD or designee on the day of assessment. OASIS guidance suggests interventions to be included on the POC to address DM & PVD & change response to 1 & 2. M1033 - Risk for Hospitalization 7-Taking 5+ meds 5-Decline in mental/emotional/behavioral status;7-Taking 5+ meds Add Response 5. Patient has a cognitive/behavioral/emotional diagnoses/condition of depression and anxiety, although it??s not clear if there has been a decline. If the patient has had a decline in this diagnosis, they are more likely to experience rehospitalization; and Response 5 would be appropriate. M1340 - Surgical Wound 0- No 1- Yes, observable surgical wound Changed from 0 to 1. Patient had a recent (R) TKA surgery. According to OASIS guidance, a surgical wound is still reported in M1340 for 30 days after re-epithelialization. M1342 - Surgical Wound Status 0- newly epithelialized Changed from skipped to 0. Patient had a recent (R) TKA surgery. According to OASIS guidance, surgical wounds are reported on the OASIS for approximately 30 days after re-epithelialization and Coded as 0. M2020 - Management of Oral Medications 0-Able to independently 3-Unable unless administered by another Changed from 0 to 3. Patient needs supervision w/ ambulation due to limited ROM, generalized weakness, and falls risk. OASIS guidance states if patient has physical limitations like needing assistance to walk to where medications are stored or get a glass of water to take medications safely, then Code 3. documented in this encounter Plan of Treatment Not on file documented as of this encounter Visit Diagnoses Not on filedocumented in this encounter Home Health Visit - Care Plan Visit Details Visit Type -SN OASIS Start o f Care Discipline -Fci Problems Problem Description Start Date Status Goals Interve ntions Learning/Teaching Needs - Diabetes Disciplines: Fci Learning and teaching needs associated with diagnosis 10/13/2023 Active 1 goal linked to scheduled/documen mariama intervention Disease Management - Diabetes Disciplines: Fci Management of diabetes symptoms 10/13/2023 Active 1 goal linked to scheduled/documen mariama intervention Homebound Status Disciplines: Skilled Disciplines Patient's homebound status 10/13/2023 Active 1 goal linked to scheduled/documen mariama intervention Monitor patient's vital signs every home health visit Disciplines: SN, PT, OT, CERTIFIED FORKLIFT OPERATOR, CATCHER FILTER TIP, Skilled Disciplines Monitor patient's vital signs every home health visit. 10/13/2023 Active 1 goal linked to scheduled/documen mariama intervention Multidisciplinary Case Conference Disciplines: Skilled Disciplines Concurrently discusses plan of treatment and coordinate patient centered care 10/13/2023 Active 1 goal linked to scheduled/documen mariama intervention Infection Prevention Disciplines: Skilled Disciplines Infection Prevention 10/13/2023 Active 1 goal linked to scheduled/documen mariama intervention Fall Precautions/Safet y Concerns Disciplines: Skilled Disciplines Fall precautions and general safety 10/13/2023 Active 1 goal linked to scheduled/documen mariama intervention Wound Education and Management Disciplines: Core Disciplines Knowledge deficit related to wound management and risk of infection. 10/13/2023 Active 1 goal linked to scheduled/documen mariama intervention Wound Care Disciplines: Core Disciplines Right Knee 10/13/2023 Active 1 goal linked to scheduled/documen mariama intervention Goals Goal Associated Problem Outcome Goal Met? Visit Notes Demonstrate adequate knowledge of Diabetes Description: Patient/caregiver will demonstrate adequate knowledge of diabetes as evidenced by the ability to perform blood sugar monitoring, care of feet, skin and eyes and signs/symptoms of altered glycemic states and their treatment by the end of the episode of care. Learning/Teaching Needs - Diabetes Progressing No Verbalize prevention of Diabetic complications Description: Patient/caregiver to demonstrate knowledge of diabetes as evidenced by ability to verbalize proper foot care and signs and symptoms of infection and skin breakdown to report to physician. Disease Management - Diabetes Progressing No Patient receives care at the most appropriate care setting Description: Patient receives care at the most appropriate care setting. Homebound Status Progressing No Measure vital signs during every home health visit during episode of care Description: Home emergency department clinician to measure vital signs during every home health visit during episode of care. Monitor patient's vital signs every home health visit Progressing No Care team will coordinate care Description: Care team will coordinate care centered on patient needs throughout the episode of care. Multidisciplinary Case Conference Progressing No Verbalize signs of infection Description: Patient/caregiver will demonstrate knowledge of infection prevention strategies by verbalizing signs and symptoms of infection. Infection Prevention Progressing No Demonstrate fall and safety precautions Description: Patient/caregiver maintains safe home environment as evidenced by remaining free from falls, injury due to falls, demonstrating safety precautions, and identifying strategies to reduce falls by 11/13/2023 Fall Precautions/Safety Concerns Progressing No Knowledgeable of Wound Management Description: Patient/caregiver [...] home health services. Wound Education and Management Progressing No Progression towards healing Description: Wound show progression towards healing by 11/13/2023 Wound Care Progressing No documented in this encounter Care Teams Leadership Coach Relationship Specialty Start Date End Date Eron Holliday NP [address] [place] [address] PCP - General Pain Management 07/15/22 Marialuisa Daniel NP [address] [place] [address] Nurse Practitioner Endocrinology Diabetes & Metabolism 09/22/23 Leobardo Bhagat MD [address] [place] [address] [address] Consulting Physician Nephrology 09/22/23 [place] [id number] [address] Consulting Physician Cardiovascular Disease 09/22/23 documented as of this encounter
--- OUTSIDE RECORDS SUMMARY | 2024-03-03 15:34 | XMS_ITS | Encounter Summary ---
Author Organization [facility] Healthcare Address [address] [place] [address] Care Team Providers Care Massage Coordinator Name Role Phone Eron Holliday NP Primary Care Provider [phone] Marialuisa Daniel NP Unavailable [phone] Leobardo Bhagat MD Unavailable [phone] Florin Dixon MD Unavailable Reason for Referral * Diagnostic Imaging (Routine) - Closed Specialty Diagnoses / Procedures Referred By Claudette smith Referred To Contact Diagnoses Aftercare following right knee joint replacement surgery Procedures XR Knee Right 3 Views Yoan Edwards PA [facility] [address] THAKUR [address] [place] [address] Phone: tel: fax: [address] [address] Referral ID Status Reason Start Date Expiration Date Visits Re quested Visits Authorized [id number] Closed 10/15/2023 11/13/2024 1 1 Reason for Visit * Diagnostic Imaging (Routine) - Closed Specialty Diagnoses / Procedures Referred By Claudette smith Referred To Contact Diagnoses Aftercare following right knee joint replacement surgery Procedures XR Knee Right 3 Views Yoan Edwards PA [facility] [address] THAKUR [address] [place] [address] Phone: tel: fax: [facility] [address] [place] [address] Referral ID Status Reason Start Date Expiration Date Visits Re quested Visits Authorized [id number] Closed 10/15/2023 11/13/2024 1 1 Encounter Details Date Type Department Care Team (Latest Contact Info) Description 10/21/2023 8:04 AM CDT - 10/21/2023 11:59 PM CDT Hospital Encounter [facility] [address] [place] [address] Aftercare following right knee joint replacement [...] doctor or pharmacy Never 10/22/[address] [facility] Utilities Answer Date Recorded In the [...] often do you attend chur ch or gnosticist services? 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 [address] (PROTONIX) 40 mg EC [...] by mouth nightly as needed blood-glucose sensor (Actual Experience[employer] G7 Sensor) device 01/14/20 24 [employer]PIRone (BUSPAR) [...] 11/10/19 24 documented as of this encounter Discharge Disposition Disposition Code Departure Means Destination Discharge to home or self care documented in this encounter Plan of Treatment Not on file documented as of this encounter Procedures Procedure Name Priority Date/Time Associated Diagnosis Comments XR KNEE RIGHT 3 VIEWS Schedule Routine, Read Routine (OP Routine) 10/21/2023 8:13 AM CDT Aftercare following right knee joint replacement [...] D: ??10/22/2023 9:37 AM T: Report ID: [id number] Reading Location: [id number] Procedure Note Lamont Hidalgo MD - 10/22/2023 [...] - Electronically signed by Lamont Hidalgo M.D. MF T: Report ID: [id number] Reading Location: [id number] Yoan [facility] XR PROCEDURES Final Result documented in this encounter Visit Diagnoses Diagnosis Aftercare following right knee joint replacement surgery documented in this encounter Care Teams Massage Coordinator Relationship Specialty Start Date End Date Eron Holliday NP [address] [place] [address] PCP - General Pain Management 07/15/22 Marialuisa Daniel NP [address] [place] [address] Nurse Practitioner Endocrinology Diabetes & Metabolism 09/22/23 Leobardo Bhagat MD [address] [place] [address] Consulting Physician Nephrology 09/22/23 [place] [id number] [address] Consulting Physician Cardiovascular Disease 09/22/23 documented as of this encounter
--- OUTSIDE RECORDS SUMMARY | 2024-03-03 15:34 | XMS_ITS | Encounter Summary ---
Author Organization [facility] Healthcare Address [address] [place] [address] Care Team Providers Care Grape Crusher Name Role Phone Eron Holliday NP Primary Care Provider [phone] Marialuisa Daniel NP Unavailable [phone] Leobardo Bhagat MD Unavailable Florin Dixon MD Unavailable Encounter Details Date Type Department Care Team (Late st Contact Info) Description 10/13/2023 Home Care Visit [facility] [address] [address] [address] [place] [address] Tania Messina RN SN TRIAGE ENCOUNTER Social History Tobacco [...] materials from doctor or pharmacy Never 10/12/2023 [facility] Utilities Answer Date Recorded In the past [...] often do you attend chur ch or yazidi services? Never 10/07/2023 Do you belong to any clubs o r organizations such as adventist groups, unions, fraternal or athletic groups, or [...] any time in the past 12 m [facility], were you homeless or living in a half-way (including now)? No 10/07/2023 Personal Safety Answer Date Recorded Have you ever been in or are you currently in a harmful physical or emotional relationship or is someone making you feel afraid or unsafe? 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 PLEASE CALL Follow-up: emailed Charge Nurse, Schedulers, CRC documented in this encounter Plan of Treatment Not on file documented as of this encounter Visit Diagnoses Not on filedocumented in this encounter Home Health Visit - Care Plan Visit Details Visit Type -SN Triage Encoun ter Discipline -Longterm Problems Problem Description Start Date Status Goals Interve ntions Learning/Teachin g Needs - Diabetes Disciplines: Longterm Learning and teaching needs associated with diagnosis 10/13/2023 Active 1 goal linked to scheduled/documen mariama intervention 7 goal interventions scheduled/documen mariama in this visit Disease Management - Diabetes Disciplines: Longterm Management of diabetes symptoms 10/13/2023 Active 1 goal linked to scheduled/documen mariama intervention 3 goal interventions scheduled/documen mariama in this visit Homebound Status Disciplines: Skilled Disciplines Patient's homebound status 10/13/2023 Active 1 goal linked to scheduled/documen mariama intervention 1 goal intervention scheduled/documen mariama in this visit Monitor patient's vital signs every home health visit Disciplines: SN, PT, OT, CORK CUTTER, ASSOCIATE DEAN OF WOMEN, Skilled Disciplines Monitor patient's vital signs every [...] visit during episode of care Description: Home home health clinician to measure vital signs during every [...] Scheduled documented in this encounter Care Teams Grape Crusher Relationship Specialty Start Date End Date Eron Holliday NP [address] [facility] [place] [address] PCP - General Pain Management 07/15/22 Marialuisa Daniel NP [address] [place] [address] [place] [address] Nurse Practitioner Endocrinology Diabetes & Metabolism 09/22/23 Leobardo Bhagat MD [address] [place] [address] [place] [address] Consulting Physician Nephrology 09/22/23 [place] [address] [address] Consulting Physician Cardiovascular Disease 09/22/23 documented as of this encounter
--- OUTSIDE RECORDS SUMMARY | 2024-03-03 15:34 | XMS_ITS | Encounter Summary ---
Author Organization [facility] Healthcare Address [facility] [place] [address] Care Team Providers Care Brass Wind Instrument Maker Name Role Phone Eron Holliday NP Primary Care Provider [phone] Marialuisa Daniel NP Unavailable [phone] Leobardo Bhagat MD Unavailable Florin Dixon MD Unavailable Reason for Visit * Auth/Cert Specialty Diagnoses / Procedures Referred By Claudette smith Referred To Contact Diagnoses Primary osteoarthritis of right knee Primary osteoarthritis of right knee [M17.11] Procedures [facility] ARTHRP KNE CONDYLE&PLATU MEDIAL&LAT COMPARTMENTS RIGHT TOTAL KNEE ARTHROPLASTY Referral ID Status Reason Start Date Expiration Date Visits Re quested Visits Authorized [id number] 1 1 Encounter Details Date Type Department Care Team (Late st Contact Info) Description 10/06/2023 7:30 AM CDT - 10/06/2023 10:15 AM CDT Surgery [facility] OR [address] [place] [address] Regi Khan DO [address] [place] [id number] RIGHT TOTAL KNEE ARTHROPLASTY Surgery Details Date/Time Status Location OR Service Patient Class Case Class Case Type Trauma Case? 10/06/2023 7:30 AM Posted B OPERATING ROOM OR 06 Orthopaedics Outpatient in Bed Elective Panel 1 Procedure LRB Anes Op Region Wound Class Comments RIGHT TOTAL KNEE ARTHROPLASTY Right General Knee Class I - Clean Daisyuy Surgeon Surgeon Role Service Panel Regi Khan DO Primary Orthopaedics 1 Case Notes RTKA documented in this encounter Social History Tobacco Use Types Packs/Day Years Used Date Smoking Tobacco: Former Cigarettes Q uit: 03/20/2020 Smokeless Tobacco: Never [facility] Utilities Answer Date Recorded In the past 12 months has e [employer], gas, oil, or water [employer] threatened to shut off services in your [...] often do you attend chur ch or episcopal services? 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 Gender Identity Female 12/26/2023 10:11 PM CDT Sexual Orientation Straight 12/26/2023 10 :11 PM CDT Occupation Industry Job Start Date Job End Date [employer] Not on file Not on file Not on file documented as of this encounter Last Filed Vital Signs Vital Sign Reading Time Taken Comments Blood Pressure 132/61 10/06/2023 10:05 AM CDT Pulse 72 10/06/2023 10:15 AM CDT Temperature 36.6 ??C (97.9 ??F) 10/06/2023 10:05 AM C DT Respiratory Rate 14 10/06/2023 10:15 AM CDT Oxygen Saturation 97% 10/06/2023 10:15 AM CDT Inhaled Oxygen Concentration - - Weight - - Height - - Body Mass Index - - documented in this encounter Discharge Summaries * [...] CONSULT TO SOCIAL WORK IP CONSULT TO TAPPER BALANCE WHEEL SCREW HOLE Procedures Performed: Procedure(s) (LRB): RIGHT TOTAL KNEE ARTHROPLASTY (Right) Hospital Course: Sandy Lopez is a 58 y.o. female who presented to [facility] on 10/06/2023. Sandy Lopez underwent Procedure(s) (LRB): [...] daily Commonly known as: PLAVIX Dexcom G6 Truckload Checker misc USE TO TEST BLOOD SUGAR DIRECTED Generic drug: blood-glucose meter,continuous * Dexcom G6 Transmitter device USE TO TEST BLOOD SUGAR TWICE A DAY Generic drug: blood-glucose transmitter * Dexcom G6 Transmitter device Generic drug: blood-glucose transmitter * Dexcom G7 Sensor device 1 Device continuously . Change every 10 days. E11.65 Generic drug: blood-glucose sensor * Dexcom G7 [...] 3x times a day or as directed. E11 Generic drug: blood glucose diagnostic * HumaLOG 200 unit/mL (3 mL) pen for injection Inject 0.08 mL (16 Units total) under the skin 3 (three) times a day before meals When insulin pumpfails. E11.65 pump has failed. For: type 2 diabetes mellitus Generic drug: insulin lispro * insulin lispro 100 unit/mL vial for injection USE PER INSULIN PUMP MAX OF 150 UNITS DAILY NEEDED Commonly known as: HumaLOG insulin syringe-needle U-100 1 mL 31 gauge x 5/16 syringe Twice a day lancets misc 1 each by other route daily Use to monitor blood sugar daily. E11.65 losartan-hydroCHLOROthiazide 100-12.5 mg per tablet Take 1 [...] 1 Device under the skin daily E11.65 Generic drug: insulin pump cart,cont inf,BT * Omnipod Dash Pods (Gen 4) cartridge CHANGE OMNIPOD POD EVERY 48 HOURS Generic drug: insulin pump cart,cont inf,BT pantoprazole DR 40 mg EC tablet Take 1 tablet (40 mg total) by mouth daily Commonly known as: PROTONIX * pen needle, diabetic 32 gauge x 5/32 needle Use to inject insulin up to 4times/day. * TRUEplus Pen Needle 32 gauge x [...] mg under the skin once a week Commonly known as: MOUNJARO zolpidem 10 mg [...] Service Line: Home Health Primary disciplines requested: Alf Physical Therapy Home Health Services: Therapy to [...] healed and surgeon gives clearance. Walker The [id number] evaluation was performed on: 10/07/2023 Primary Care Physician at Discharge: Eron Holliday NP [phone] Follow up: [facility] Orthopedics and Sports Medicine [address] [place] [phone] Future Appointments Date Time Provider Department Center 10/10/2023 11:00 AM Marialuisa Daniel NP ENDO [facility] Specialty 10/21/2023 8:30 AM Yoan Edwards PA O[facility] OS 340 [facility] Specialty 10/22/2023 10:00 AM Felipe Cox MD [facility] NEURO [facility] ORT NEUR 11/20/2023 2:45 PM Regi Khan DO OSM OS 110 [facility] Specialty Contact Information for Follow-ups [facility] Specialty: Orthopedic Surgery [address] [place] [address] [place] [phone] Next Steps: Follow up Questions: Service Line: Home Health Primary disciplines requested: Alf Physical Therapy Home Health Services: Therapy to [...] Care Everywhere. * Knee Replacement (Discharge Care) (Finnish) documented in this encounter Medications at Time [...] gauge misc 4 OneTouch Verio Flex meter [facility] [address] (PROTONIX) 40 mg EC [...] unit) tablet 3 11/20/19 24 Dexcom G6 Truckload Checker miscIndications:Typ e 2 diabetes mellitus with hyperglycemia, [...] hours as needed for pain 21 tablet 11/20/19 24 tirzepatide (MOUNJARO) 7.5 mg/0.5 mL [...] 1102 Patient Spiritual Assessment Spirituality Assessed Yes Gnosticism Affiliation Islam Active in Episcopal Yes Place of [facility] [place] Spiritual Needs Prayer Clinical Encounter Type Visited With Patient Response Type Routine visit Routine Visit Introduction Reason for visit Support Interventions Interventions Offer spiritual/episcopal support;Prayer * Hudson Campbell PTA - 10/07/2023 [...] to work with therapy. rates pain at 12/03. Attempted to see pt later 12 :55 [...] Progressing toward goals Time Calculation Start Time 932 Stop Time 1015 Time Calculation (min) 42 min Wildlife Control Operator Services Utilized: NO Educated the patient to the role of physical therapy, plan of care, goals of therapy, rationale forprogressing mobility and home exercise program, weight bearing precautions, and home safety. Patient was left with all needs met and equipment intact. Mobility and ADL status posted at bedsideand within medical record. Multi-Disciplinary Problems (from Physical Therapy) Active Problems Problem: PT [facility] Start Date: 10/06/23 Goal Start Date Expected End Date End Date PT LT - [facility] 1 10/06/23 10/20/23 -- Goal Details: Pt will transfer supine<>sit independently Progressing Goal Start Date Expected End Date End Date PT LT - [facility] 2 10/06/23 10/20/23 -- Goal Details: Pt will transfer sit<>stand with wheeled walker, independently Progressing Goal Start Date Expected End Date End Date PT LT - [facility] 3 10/06/23 10/20/23 -- Goal Details: Pt will ambulate 150 feet with wheeled walker, independently Progressing Goal Start Date Expected End Date End Date PT [facility] - [facility] 4 10/06/23 10/20/23 -- Goal Details: Pt will ascend/descend 5 stairs with rail, independently Progressing Goal Start Date Expected End Date End Date PT LT - [facility] 5 10/06/23 10/20/23 -- Goal Details: Pt will perform RLE TKR exercises in supine/sitting x 10 reps each, independently Progressing * Yoan Edwards PA - 10/07/2023 7:47 AM CDT Subjective: Patient seen and examined. Patient is postop day 1 status post right total knee arthroplasty. Upon entering the exam room the patient is ambulating back from the restroom with her walker. Patient is doing well this morning and reports that pain is moderate and rated 6/10 on a pain scale. Patient istolerating pain medication and denies any nausea or [...] step training. Otherwise the patient is doing welland provides no further questions at this time. [...] and compressible (-) Tiny's sign Assessment: 1. VA ARTHRP KNE CONDYLE&PLATU MEDIAL&LAT COMPARTMENTS [[id number]] (RIGHT TOTAL KNEE ARTHROPLASTY) 1 Day Post-Op [...] [facility] Orthopedic Surgery 10/07/23 7:47 AM * Angelica Gomez, PERFECT BINDER SETTER - 10/06/2023 3:21 PM CDT Physical Therapy [...] Time 1544 Time Calculation (min) 23 min Wildlife Control Operator Services Utilized: NO Educated the patient to [...] End Date End Date PT LTG - [facility] 1 10/06/23 10/20/23 -- Goal Details: Pt will transfer supine<>sit independently-NT Goal Start Date Expected End Date End Date PT LTG - [facility] 2 10/06/23 10/20/23 -- Goal Details: Pt will transfer sit<>stand with wheeled walker, independently-NT Goal Start Date Expected End Date End Date PT LTG - [facility] 3 10/06/23 10/20/23 -- Goal Details: Pt will ambulate 150 feet with wheeled walker, independently-NT Goal Start Date Expected End Date End Date PT LT - [facility] 4 10/06/23 10/20/23 -- Goal Details: Pt will ascend/descend 5 stairs with rail, independently-NT Goal Start Date Expected End Date End Date PT LTG - [facility] 5 10/06/23 10/20/23 -- Goal Details: Pt [...] Equipment-Currently Using None Prior Function Level of [place] Independent with ADLs;Independent functional transfers;Independent with ambulation;Independent [...] Date End Date OT LTG - Mis 1 10/06/23 10/20/23 -- Goal Details: 1) LE ADL SBA WITH AE PRN. Goal Start Date Expected End Date End Date OT LT - [facility] 2 10/06/23 10/20/23 -- Goal Details: 2) FUNCTIONAL MOBILITY TO/FROM BATHROOM AND ALL ASPECTS TOILETING MODIFIED INDEP WITHDME. Goal Start Date Expected End Date End Date OT [facility] - [facility] 3 10/06/23 10/20/23 -- Goal Details: 3) STAND AT SINK X4 MIN FOR ADL WITH GOOD BALANCE. Goal Start Date Expected End Date End Date OT [facility] - [facility] 4 10/06/23 10/20/23 -- Goal Details: 5) PERFORM ITEM RETRIEVAL FROM HIGH/LOW POSITIONS WITH GOOD BALANCE/SAFETY. Goal Start Date Expected End Date End Date OT [facility] - [facility] 5 10/06/23 10/20/23 -- Goal Details: 4) [...] posted at bedside and within medical record. Wildlife Control Operator Services Utilized: NO Patient is identified by name and date of on this visit. Cotx with ADA Swenson for safety of patient and staff due to current diagnosis, medical status, and unknown level of functional performance prior to evaluation. * Messi Castro PT - 10/06/2023 1:39 PM CDT Physical Therapy 10/06/23 0370 General Chart Reviewed Yes Session Type Evaluation [...] of the house. 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 Fall within the last 6 months [...] (from Physical Therapy) Active Problems Problem: PT [facility] Start Date: 10/06/23 Goal Start Date Expected End Date End Date PT [facility] - [facility] 1 10/06/23 10/20/23 -- Goal Details: Pt will transfer supine<>sit independently Goal Start Date Expected End Date End Date PT [facility] - [facility] 2 10/06/23 10/20/23 -- Goal Details: Pt will transfer sit<>stand with wheeled walker, independently Goal Start Date Expected End Date End Date PT [facility] - [facility] 3 10/06/23 10/20/23 -- Goal Details: Pt will ambulate 150 feet with wheeled walker, independently Goal Start Date Expected End Date End Date PT [facility] - [facility] 4 10/06/23 10/20/23 -- Goal Details: Pt will ascend/descend 5 stairs with rail, independently Goal Start Date Expected End Date End Date PT [facility] - [facility] 5 10/06/23 10/20/23 -- Goal Details: Pt will perform RLE TKR exercises in supine/sitting x 10 reps each, independently Wildlife Control Operator Services Utilized: NO Educated the patient to the role of physical therapy, plan of care, goals of therapy, rationale forprogressing mobility and weight bearing precautions and home safety. Patient was left with all needs met and equipment intact. Mobility and ADL status posted within medical record. documented in this encounter H&P Notes * Regi Khan, - 10/06/2023 7:21 AM CDT Preoperative H&P [...] DDD (degenerative disc disease), cervical, Depression, Diabetes ([facility]), Dizziness, Foraminal stenosis of cervical region, GERD (gastroesophageal reflux disease), High blood pressure, Type 1 diabetes mellitus ([facility]) (08/04/2018), Uncontrolled type 2 diabetes mellitus with hyperglycemia ([facility]) (03/14/2017), and Uncontrolled type 2 diabetes mellitus with hyperglycemia, with long-term current use of insulin ([facility]) (04/03/2017). PAST SURGICAL HISTORY She has a past surgical history that includes section; Knee arthroscopy; Carpal tunnel release; Elbow surgery; and Tonsillectomy. MEDICATIONS She has a current medication list which includes the following prescription(s): aspirin, pediatric multivitamin-iron, ozempic, alcohol swabs, aspirin, atorvastatin, blood sugar diagnostic, blood-glucose meter, dexcom g7 sensor, dexcom g6 transmitter, buspirone, cetirizine, cholecalciferol, citalopram, clopidogrel, cyclobenzaprine, dexcom g6 drier helper, dexcom g6 transmitter, dexcom g7 sensor, empagliflozin, [...] physical therapy Regi Khan DO Orthopedic Surgeon [facility] 10/06/2023 7:23 AM documented in this encounter Consult Notes * Maureen Hardy RN - 10/06/2023 3:52 PM CDTAssociated Order(s): IP CONSULT TO TAPPER BALANCE WHEEL SCREW HOLE Sandy has and insulin pump. Pump orders [...] LCSW - 10/07/2023 12:04 PM CDT 10/07/23 1203 Discharge Summary Discharge Disposition Home health care Specify Facility [facility] Contact Number [phone] Discharge Records Chart Copied Recommended Discharge Level of [facility] Actual Discharge Level of [facility] Does Actual Level of Care Match Care Team Recommendation? Yes Post Acute Care Plan Home Care Services Yes Type of Home Care Services Home therapies;Nurse visit Home Care Services Name and Phone Number [facility] [phone] OP Services N/A DME N/A Post Acute Care Facility N/A Discharge Additional Assistance Does the patient need discharge transport arranged? No Post Discharge Care Provider Post Discharge Care Plan DC Summary has been faxed to next level of care provider (see Follow Up Providers) Isabela Segovia LCSW 10/07/2023 12:04 PM * Initial Assessments - Isabela Segovia LCSW - 10/07/2023 12:00 PM CDT CHRISTINE Initial Assessment Interview Note Information Obtained From: Patient (10/07/23 1158) Admission Source: Scheduled surgery Impression: Right knee replacement with Dr. Regi Khan Plan Includes: PT/OT to eval and treat; discharge is pending therapy and pain tolerance. Primary Source of Transportation: Does the patient need discharge transport arranged?: No (10/07/23 1158) Health Insurance Coverage: Primary Coverage Payor Plan Insurance Group Employer/Plan Group [facility] Payor Plan Address Payor Plan Phone Number Payor Plan Fax Number Effective Dates ATTN: CLAIMS DEPT [phone] 02/24/2023 - None Entered [address] [facility] [address] Subscriber Name Subscriber Date Member ID SANDY LOPEZ 1965 [id number] Pharmacy: [place], [place] - [address] [facility] [phone] Primary Care Provider: Eron Holliday NP Prior to Admission: Functional Status: Independent with ADLs Primary Caregiver: Self Support System: Parent, Children Home Care Services: No Outpatient Services: No Durable Medical Equipment: Walker (wheeled) Living Arrangements: Parent Type of Residence: Private residence Steps in home?: Yes, Outside of home Number of steps outside: 5 steps Medication management: Independent (10/07/23 115) SDOH: Transportation: In the past 12 months, [...] homeless or living in a long-term (including now)?: No (10/07/23 1200) Utilities: No, (10/07/231158) Social Connections: In a typical week, how many times do you talk on the phone with family, friends, or neighbors?: More than three times a week How often do you get together with friends or relatives?: More than three times a week How often do you attend uatsdin or episcopal services?: Never Do you belong to any clubs or organizations such as uatsdin groups, unions, fraternal or athletic groups, or [...] 1200) Potential discharge needs include: Home Health: residential, Physical therapy (10/07/23 1158) Behavioral Health Services: Behavioral Health Services: No (10/07/23 1158) Anticipated Level of Care: Anticipated discharge level of care: Home health care Pt/Family agrees with Anticipated Level of Care: Yes (10/07/23 1158) Patient expects to be Discharged to: Home health care, (10/07/23 1158) Additional Information: Assistant Accounting Manager met with patient at bedside to discuss discharge plans. Patient stated that she plans to return home at discharge with support from her father. Patient stated that she has a wheeled walker. Patient confirmed that a CPM had been ordered by Dr. Khan's office and delivered to the home through [employer] ( ). BRAID PATTERN SETTER explained home health services, provided list of in-network agencies, and asked if patient hada preference to which home health company was arranged. Patient stated that she doesn't have a preference. Referrals sent via [facility]. HH packet on chart. Discharge Home With: [facility] [place] [address] Ext 4 has accepted patient with start of care on 10/12/23. Patient is aware of dc plans and agency accepted. HH Orders have been completed and sent to accepting Agency. Assistant Accounting Manager to remain available to assist as needed. [...] Collaboration with Patient, Provider, Direct Care Nurse, Gravure Printing Machinist, and other members of theHealth Care Team to assure needed interventions completed. 2. Return patient to optimal level of self-care post discharge. 3. Child Development Consultant will follow for Discharge Planning - interventions as needed 4. Anticipated level of care at discharge 5. Planned Discharge Disposition Isabela Segovia LCSW 10/07/2023 12:03 PM * Plan of Care - Aicha Sierra RN - 10/07/2023 10:56 AM CDT [facility] PT. Isabela Segovia LCSW notified. Aicha Sierra RN-BSN Forestry Worker [facility] [phone] * [facility] Note - Isabela Segovia, BRAID PATTERN SETTER - 10/07/2023 9:19 AM CDT Images from [...] Standard - Home Mobility Equipment-Available Wheeled walker -KH Home Mobility Equipment-Currently Using None -KH Level of [place] Independent with ADLs;Independent functional transfers;Independent with ambulation;Independent with homemaking with ambulation -KH Lives With Family -KH Receives Help From Family -KH Driving Yes -KH ADL Assistance Independent -KH Instrumental ADL (IADL) Assistance Independent -KH Fall within the last 6 months No -KH Pain Assessment 0-10 - Pain Score 5 - Moderate pain -KH Pain Type Surgical pain - Endurance Tolerates 10 - 20 min activity with multiple rests -KH Arousal/Alertness Alert -KH Attention Span Appears intact -KH Memory Appears intact -KH Current communication Appears Intact - Orientation Oriented X4 (person, place, time, situation) - Following Commands Follows all commands and directions without difficulty - Safety Judgment Good awareness of safety precautions - Awareness of Errors Good awareness of errors made - Insight Fully aware of deficits - Problem Solving Able to problem solve independently - Compliance/Behavior Easy to engage - Numbness/Tingling No - Fine Motor WFL - Serial Opposition WFL - Coordination Functional - RUE Assessment WFL - LUE Assessment L - Safe Environment End of Therapy Session Patient [...] - OT Frequency during current admission 5-7x/wk - Treatment/Interventions during current admission ADL/IADL retraining;Balance Training;Bed mobility;Cognitive retraining;Compensatory technique education;Endurance training;Functional activity;Functional mobility training;Functional transfer training;Parent/caregiver training and education;Therapeutic activity;Strengthening;Therapeutic exercise;Transfer training - OT - Next Appointment 10/20/23 - OT Evaluation Complete Yes -KH Start Time 1340 -KH Stop Time 1400 - Time Calculation (min) 20 min - User Schuler (r) = Recorded By, (t) = Taken By, (c) = Cosigned By Initials Name Effective Dates K[facility] Emelina Nava OT 04/10/23 - OT Treatment No documentation. OT Notes 10/06/2023 2:40 PM Progress Notes signed by Emelina Nava OT , PT Eval and Treat Last 72 Hours PT Evaluation Row Name 10/06/23 1339 Chart Reviewed Yes -AZ Session Type Evaluation [...] floor of the house. 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 -AZ Fall within the last 6 [...] safety precautions -AZ Compliance/Behavior Easy to engage -AZ Bed Mobility From 1 Supine -AZ Bed Mobility Type 1 To and from -AZ Bed Mobility to 1 Edge of bed -AZ Level of Assistance 1 Contact Guard Assist [...] appropriate gait sequencing;Improve upright posture;Increase step length -AZ Gait Deviations 1 Lora - decreased;Step length - decreased;Weight bearing through UE???s - increased -AZ RLE Assessment X -AZ RLE Overall AROM Deficits;Due to precautions;Due to pain -AZ LLE Assessment WFL -AZ Safe Environment End of Therapy Session Patient left supine in bed;Bed alarm in place and activated;Sequential compressive devices on legs and activated;Call light within reach;Overbed table within reach;Bed in lowest position with wheels locked -AZ Prognosis Good -AZ Problem List Gait deviations;Decreased strength;Decreased range of motion;Decreased mobility;Orthopedic restrictions;Pain -AZ Plan Plan of care initiated;If this is the last note, consider this the discharge summary -AZ PT Recommendation/Plan Home with family;Home Health PT -AZ PT Frequency during current admission Twice a day;Other (comment) 2x/day Friday through Friday, 1-2x/day Friday and Friday -WA Treatment/Interventions during current admission Balance Training;Bed mobility;Endurance training;Functional activity;Functional transfer training;Gait training;Parent/caregiver training and education;Range of motion;Stair training;Strengthening;Therapeutic activity;Therapeutic exercise;Transfer training -AZ PT Equipment Recommended None pt has wheeled walker and cane at home -AZ PT Evaluation Complete Yes -AZ Start Time 1339 -AZ Stop Time 1355 -AZ Time Calculation (min) 16 min -AZ User Schuler (r) = Recorded By, (t) [...] - Pain Score 5 - Moderate pain - Pain Type Surgical pain - Pain Location Knee - Pain Orientation Right - Cognition Arousal/Alertness Alert - Orientation Oriented X4 (person, place, time, situation) - Compliance/Behavior Easy to engage - Exercises Straight Leg Raise 10 -EH Quad Sets 10 -EH Heelslides 10 -EH Glute Sets 10 -EH Hip Abduction 10 -EH Ankle Pumps 10 -EH Supine Supine-Exercises Right;Lower extremity - Reps/Sets 10/1 [...] Health PT - Time Calculation Start Time 152 -EH Stop Time 1544 - Time Calculation (min) 23 min - User Schuler (r) = Recorded By, (t) = Taken By, (c) = Cosigned By Initials Name Effective Dates EH Angelica Gomez, PERFECT BINDER SETTER 06/29/20 - PT Notes 10/06/2023 3:53 PM Progress Notes signed by Msesi Castro, PT * ECIN Note - Isabela [...] LRC Intake/Output 10/06/23 0700 - 10/07/23 0659 [id number] 5823-4770 6816-0593 Total Intake (ml) 1700 516.7 1050 3266.7 Output (ml) 150 6635 537 1927 Net (ml) 1550 -533.3 200 1216.7 Last [...] -- -- -- -- Approximated;Yahir Row Name 10/06/23 0927 Dressing Status Clean/Dry/Intact Site Assessment JAZMINE María-wound [...] Signs 10/05 0700 10/06 0659 10/06 0710/06 09 Most Recent Temp (??C) 36.2 - 37.2 36.9 36.9 (98.4) 10/06 820 Pulse 54 - 82 74 74 10/06 820 Resp 11 - 21 18 18 10/06 820 ETCO2 (mmHg) (mmHg) 45 - 48 SpO2 (%) 93 - 99 94 94 10/06 820 BP 94/63 - 165/76 129/58 129/58 08/13 0821 MAP (mmHg) 73 - 104 79 79 10/06 0821 Default Flowsheet Data (most recent) Endurance Tests No documentation. Nursing Nutrition None Nursing Mobility Activity 10/06 0624 Resting in bed 10/06 0540 Resting in bed 10/06 0443 Resting in bed 10/06 0337 Bathroom privileges;Ambulate in room 10/06 0217 Resting in bed 10/06 0133 Bathroom privileges;Ambulate in room 10/06 0102 Resting in bed 10/05 2331 Resting in bed 10/05 2238 Resting in bed 10/05 2231 Bathroom privileges;Ambulate in room 10/05 2100 Bathroom privileges;Ambulate in room 10/05 205 Dangle 10/05 1900 Resting in bed 10/05 [...] Walker 10/05 2100 Walker Ambulation Response 10/06 0337 Tolerated well 10/06 0133 Tolerated well 10/05 223 Tolerated well 10/05 2100 Tolerated well Repositioned [...] 1900 HOB 30 10/05 1800 HOB 45 10/05 1700 HOB 30 10/05 1600 HOB 30 10/05 1500 HOB 30 10/05 1400 HOB 30 [...] mL in sterile water (premix) 2,000 mg [[id number]] Ordering Provider: Regi Khan DO Status: Completed (Past End Date/Time) Ordered On: 10/06/23 0527 Starts/Ends: 10/06/23 0600 - 10/06/23 0751 Ordered Dose (Remaining/Total): 2,000 mg (0/1) Route: intravenous Frequency: Once Ordered Rate/Order Duration: 400 mL/hr / 3 Minutes Admin Instructions: Administer within 60 minutes of incision. Timestamps Action Dose Route Other Information 10/06/23 0751 Given 2,000 mg intravenous Performed by: Cheyenne Bateman CRNA acetaminophen (TYLENOL) tablet 975 mg [[id number]] Ordering Provider: Almita Ramirez NP Status: Completed (Past End Date/Time) Ordered On: 10/06/23526 Starts/Ends: 10/06/23 0600 - 10/06/23 0558 Ordered Dose (Remaining/Total): 975 mg (0/1) Route: oral Frequency: Once Ordered Rate/Order Duration: -- / -- Timestamps Action Dose Route Other Information 10/06/23 0558 Given 975 mg oral Performed by: Elvira Reis RN Scanned Package: 58076-604-18, 70763-638-55, 65996-947-53 Lactated Ringer's (LR) infusion [[id number]] Ordering Provider: Olayinka Zayas MD Status: Verified Ordered On: 10/06/23922 Start: 10/06/23 1000 Ordered Dose (Remaining/Total): 125 mL/hr (--/--) Route: intravenous Frequency: Continuous Ordered Rate/Order Duration: 125 mL/hr / -- Line Med Link Info Comment Peripheral IV 10/06/23 20 G Anterior;Right Forearm 10/06/23 1128 by Tania Merritt RN -- (No admins scheduled or recorded for this medication) busPIRone (BUSPAR) tablet 5 mg [[id number]] Ordering Provider: Regi Khan DO Status: Dispensed Ordered On: 10/06/23 112 Start: 10/06/23 2100 Ordered Dose (Remaining/Total): 5 mg (--/--) Route: oral Frequency: 2 times daily Ordered Rate/Order Duration: -- / -- Timestamps Action Dose Route Other Information 10/07/23 0857 Given 5 mg oral Performed by: Tania Merritt RN Scanned Package: [id number] clopidogreL (PLAVIX) tablet 75 mg [[id number]] Ordering Provider: Regi Khan DO Status: Dispensed Ordered On: 10/06/23 1123 Start: 10/06/23 1200 Ordered Dose (Remaining/Total): 75 mg (--/--) Route: oral Frequency: Daily Ordered Rate/Order Duration: -- / -- Timestamps Action Dose Route Other Information 10/07/23 0858 Given 75 mg oral Performed by: Tania Merritt RN Scanned Package: 40957-329-39 ezetimibe (ZETIA) tablet 10 mg [[id number]] Ordering Provider: Regi Khan DO Status: Dispensed Ordered On: 10/06/23 112 Start: 10/07/23 0900 Ordered Dose (Remaining/Total): 10 mg (--/--) Route: oral Frequency: Daily Ordered Rate/Order Duration: -- / -- Timestamps Action Dose Route Other Information 10/07/23 0857 Given 10 mg oral Performed by: Tania Merritt RN Scanned Package: 08231-065-72 famotidine (PEPCID) tablet 20 mg [[id number]] Ordering Provider: Regi Khan DO Status: Dispensed Ordered On: 10/06/231122 Start: 10/06/23 2100 Ordered Dose (Remaining/Total): 20 mg (--/--) Route: oral Frequency: 2 times daily Ordered Rate/Order Duration: -- / -- Timestamps Action Dose Route Other Information 10/07/23 0856 Given 20 mg oral Performed by: Tania Merritt RN Scanned Package: 47465-866-84 losartan (COZAAR) tablet 100 mg [[id number]] Ordering Provider: Regi Khan DO Status: Dispensed Ordered On: 10/06/231122 Start: 10/06/23 1200 Ordered Dose (Remaining/Total): 100 mg (--/--) Route: oral Frequency: Daily Ordered Rate/Order Duration: -- / -- Timestamps Action Dose Route Other Information 10/07/23 0856 Given 100 mg oral Performed by: Tania Merritt RN Scanned Package: 84341-347-75 hydroCHLOROthiazide (HYDRODIURIL) tablet 12.5 mg [[id number]] Ordering Provider: Regi Khan DO Status: Dispensed Ordered On: 10/06/23 112 Start: 10/06/23 1200 Ordered Dose (Remaining/Total): 12.5 mg (--/--) Route: oral Frequency: Daily Ordered Rate/Order Duration: -- / -- Timestamps Action Dose Route Other Information 10/07/23 0856 Given 12.5 mg oral Performed by: Tania Merritt RN Scanned Package: 44385-260-57 meclizine (ANTIVERT) tablet 25 mg [[id number]] Ordering Provider: Regi Khan DO Status: Verified Ordered On: 10/06/231122 Start: 10/06/231215 Ordered Dose (Remaining/Total): 25 mg (--/--) Route: oral Frequency: Daily PRN Ordered Rate/Order Duration: -- / -- (No admins scheduled or recorded for this medication) propranoloL (INDERAL) tablet 20 mg [[id number]] On hold since yesterday at 1226 until manually unheld; held by Yoan Edwards PAHold Reason: Change in Patient Status Ordering Provider: Regi Khan DO Status: Verified Ordered On: 10/06/231122 Start: 10/06/23 1200 Ordered Dose (Remaining/Total): 20 mg (--/--) Route: oral Frequency: 2 times daily Ordered Rate/Order Duration: -- / -- (No admins scheduled or recorded for this medication) SUMAtriptan (IMITREX) tablet 50 mg [[id number]] Ordering Provider: Regi Khan DO Status: Verified Ordered On: 10/06/231122 Start: 10/06/231122 Ordered Dose (Remaining/Total): 50 mg (--/--) Route: oral Frequency: Once as needed Ordered Rate/Order Duration: -- / -- Admin Instructions: May repeat dose once in 2 hours if unresolved. Do not exceed 200 mg in 24 hours. (No admins scheduled or recorded for this medication) zolpidem (AMBIEN) tablet 5 mg [[id number]] Ordering Provider: Regi Khan DO Status: Verified Ordered On: 10/06/231122 Start: 10/06/231122 Ordered Dose (Remaining/Total): 5 mg (--/--) Route: oral Frequency: Nightly PRN Ordered Rate/Order Duration: -- / -- (No admins scheduled or recorded for this medication) aspirin enteric coated tablet 81 mg [[id number]] Ordering Provider: Regi Khan DO Status: Dispensed Ordered On: 10/06/231122 Start: 10/07/23 0900 Ordered Dose (Remaining/Total): 81 mg (--/--) Route: oral Frequency: Daily Ordered Rate/Order Duration: -- / -- Admin Instructions: Do not crush, chew, cut, dissolve, open or otherwise manipulate tablet/capsule. Timestamps Action Dose Route Other Information 10/07/23 0856 Given 81 mg oral Performed by: Tania Merritt RN Scanned Package: [id number] sodium chloride 0.9% flush 0.5-20 mL [[id number]] Ordering Provider: Regi Khan DO Status: Verified Ordered On: 10/06/231122 Start: 10/06/23 1400 Ordered Dose (Remaining/Total): 0.5-20 mL (--/--) Route: intra-catheter Frequency: Every 8 hours scheduled Ordered Rate/Order Duration: -- / -- Admin Instructions: Flush volume based on line type and size. Timestamps Action Dose Route Other Information 10/06/23 2212 Given 10 mL intra-catheter Performed by: Deborah Ortiz RN Scanned Package: [id number] sodium chloride 0.9% flush 0.5-20 mL [[id number]] Ordering Provider: Regi Khan DO Status: Verified Ordered On: 10/06/231122 Start: 10/06/231122 Ordered Dose (Remaining/Total): 0.5-20 mL (--/--) Route: intra-catheter Frequency: As needed Ordered Rate/Order Duration: -- / -- Admin Instructions: Flush volume based on line type and size. Flush before and after each use. (No admins scheduled or recorded for this medication) Lactated Ringer's (LR) infusion [[id number]] Ordering Provider: Regi Khan DO Status: Dispensed [...] mL in sterile water (premix) 2,000 mg [[id number]] Ordering Provider: Regi Khan DO Status: Completed [...] Performed by: Deborah Ortiz RN Scanned Package: [id number], 3211-2693-47 acetaminophen (TYLENOL) tablet 975 mg [[id number]] Ordering Provider: Regi Khan DO Status: Dispensed Ordered On: 10/06/23 1123 Start: 10/06/23 1500 Ordered Dose (Remaining/Total): 975 mg (--/--) Route: oral Frequency: Every 6 hours scheduled Ordered Rate/Order Duration: -- / -- Timestamps Action Dose Route Other Information 10/07/23 0857 Given 975 mg oral Performed by: Tania Merritt RN Scanned Package: 38439-353-80, 28751-436-22, 22224-263-62 oxyCODONE (ROXICODONE) tablet 5 mg [[id number]] Ordering Provider: Regi Khan DO Status: Dispensed [...] Performed by: Deborah Ortiz RN Scanned Package: [id number] HYDROmorphone (DILAUDID) injection 0.2 mg [[id number]] Ordering Provider: Regi Khan DO Status: Dispensed [...] IV 10/06/23 20 G Anterior;Right Forearm 10/07/23 034 by Deborah Ortiz RN -- Timestamps Action Dose / Duration Route Other Information 10/07/23 0341 Given 0.2 mg 2 Minutes intravenous Performed by: Deborah Ortiz RN Scanned Package: [id number] ondansetron (ZOFRAN) injection 4 mg [[id number]] Ordering Provider: Regi Khan DO Status: Verified Ordered On: 10/06/231122 Start: 10/06/231122 Ordered Dose (Remaining/Total): 4 mg (--/--) Route: intravenous Frequency: Every 6 hours PRN Ordered Rate/Order Duration: -- / 2 Minutes Admin Instructions: Proceed to prochlorperazine if no relief within 30 minutes. (No admins scheduled or recorded for this medication) polyethylene glycol (MIRALAX) packet 17 g [[id number]] Ordering Provider: Regi Khan DO Status: Verified Ordered On: 10/06/231122 Start: 10/06/23 1200 Ordered Dose (Remaining/Total): 17 g (--/--) Route: oral Frequency: Daily Ordered Rate/Order Duration: -- / -- Admin Instructions: Hold for diarrhea. (No admins scheduled or recorded for this medication) docusate sodium (COLACE) capsule 100 mg [[id number]] Ordering Provider: Regi Khan DO Status: Dispensed Ordered On: 10/06/231122 Start: 10/06/23 1200 Ordered Dose (Remaining/Total): 100 mg (--/--) Route: oral Frequency: 2 times daily Ordered Rate/Order Duration: -- / -- Admin Instructions: Hold for diarrhea Timestamps Action Dose Route Other Information 10/07/23 0857 Given 100 mg oral Performed by: Tania Merritt RN Scanned Package: [id number] bisacodyL (DULCOLAX) suppository 10 mg [[id number]] Ordering Provider: eRgi Khan DO Status: Verified Ordered On: 10/06/231122 Start: 10/06/231122 Ordered Dose (Remaining/Total): 10 mg (--/--) Route: rectal Frequency: Daily PRN Ordered Rate/Order Duration: -- / -- (No admins scheduled or recorded for this medication) calcium carbonate (TUMS) chewable tablet 1,000 mg [[id number]] Ordering Provider: Regi Khan DO Status: Dispensed Ordered On: 10/06/231122 Start: 10/06/23 1200 Ordered Dose (Remaining/Total): 400 mg of elemental calcium (--/--) Route: oral Frequency: 2 times daily Ordered Rate/Order Duration: -- / -- Timestamps Action Dose Route Other Information 10/07/23 0858 Given 1,000 mg oral Performed by: Tania Merritt RN Scanned Package: 99646-406-77, 43397-896-60 benzocaine-menthoL (CHLORASEPTIC) lozenge 1 lozenge [[id number]] Ordering Provider: Regi Khan DO Status: Dispensed Ordered On: 10/06/231122 Start: 10/06/231122 Ordered Dose (Remaining/Total): 1 lozenge (--/--) Route: mouth/throat Frequency: Every 4 hours PRN Ordered Rate/Order Duration: -- / -- Timestamps Action Dose Route Other Information 10/07/23 0846 Given 1 lozenge mouth/throat Performed by: Tania Merritt RN Scanned Package: [id number] dextrose (GLUTOSE) 40 % gel 15 g [[id number]] Ordering Provider: Regi Khan DO Status: Verified [...] Call MD for each episode of hypoglycemia. PRINTER TECHNICIAN STATES GLUTOSE-15 CONTAINS GLUCOSE 40% W/W (50% W/V) (No admins scheduled or recorded for this medication) dextrose (D10W) 10% bolus 250 mL [[id number]] Ordering Provider: Regi Khan DO Status: Verified [...] hour post treatment. If BG is less vhxj929 mg/dL, repeat Q15 minute BG checks and treatment. Call MD for each episode of hypoglycemia. (No admins scheduled or recorded for this medication) glucagon injection 1 mg [[id number]] Ordering Provider: Regi Khan DO Status: Verified Ordered On: 10/06/23 1123 Start: 10/06/23 1123 Ordered Dose (Remaining/Total): 1 mg (--/--) Route: [...] this medication) escitalopram (LEXAPRO) tablet 15 mg [[id number]] Ordering Provider: Regi Khan DO Status: Dispensed Ordered On: 10/06/23 1435 Start: 10/07/23 0900 Ordered Dose (Remaining/Total): 15 mg (--/--) Route: oral Frequency: Daily Ordered Rate/Order Duration: -- / -- Timestamps Action Dose Route Other Information 10/07/23 0856 Given 15 mg oral Performed by: Tania Merritt RN Scanned Package: [id number], 6856-6573-65 insulin lispro (HumaLOG, ADMELOG) 100 unit/mL injection 9 Units [[id number]] Ordering Provider: Regi Khan DO Status: Verified Ordered On: 10/06/23 1451 Start: 10/06/23 1450 Ordered Dose (Remaining/Total): 9 Units (--/--) Route: subcutaneous Frequency: As needed Ordered Rate/Order Duration: -- / -- Admin Instructions: Administer back up dose if insulin pump is not functional. Call MD for alternate insulin regimen. (No admins scheduled or recorded for this medication) INSULIN SUBCUTANEOUS PUMP insulin lispro (HumaLOG) 100 UNIT/ML patient supplied pump 0-25 Units [[id number]] Ordering Provider: Regi Khan DO Status: Verified [...] RN * Plan of Care - Deborah Ortiz RN - 10/07/2023 7:00 AM CDT Goals: Clinical Goals for the Shift: pain control; void without difficulty; sleep Retirement Patient Centered Goal for Treatment: discharge to [...] affected body part Outcome: Ongoing Flowsheets (Taken 10/07/2023 06) Maintain proper alignment of affected body part: Support and protect limb and body alignment per provider's orders Instruct and reinforce with patient and family use of appropriate assistive device and precautions (e.g. spinal or hip dislocation precautions) Goal: Return ADL status to a safe level of function Outcome: Ongoing Flowsheets (Taken 10/07/2023 06) Return activities of daily living status to a safe level of function: Assess patient's activities of daily living deficits and provide assistive devices as needed Obtain PT/OT consults as needed Assist and instruct patient to increase activity and self care Goal: Mobility, ROM and muscle strength will improve Outcome: Ongoing Flowsheets (Taken 10/07/2023601) Mobility, ROM and muscle strength will improve: Encourage mobilization to extent of ability * Plan of Care - Tania Merritt RN - 10/06/2023 6:08 PM CDT Goals: Clinical Goals for the Shift: safety and pain control [facility] Patient Centered Goal for Treatment: discharge to [...] DATE OF : 1965 CONTACT SERIAL NUMBER: [id number] PRIMARY CARE PHYSICIAN: Eron Holliday NP PROCEDURE DATE: October 06, 2023 Pre-op Diagnosis * Primary osteoarthritis of right knee [M17.11] Post-op Diagnosis * Primary osteoarthritis of right knee [M17.11] Procedure(s) (LRB): RIGHT TOTAL KNEE ARTHROPLASTY (Right) PROCEDURE LOCATION: [facility] 06 SURGEON: Surgeons and Role: * Erin, Blakelyn, DO - Primary ASSISTANTS: Surfacer: Carrie Daniel RN Physician Audio Visual Director: Yoan Edwards PA Scrub: Marcial De La Garza RN RETAIL CASHIER: Jose R Daniel CRNFA ANESTHESIA: Anesthesiologist: Olayinka Zayas MD REHABILITATOR: Cheyenne Bateman CRNA ANESTHESIA TYPE: General PROPHYLACTIC IV ANTIBIOTICS: IV Ancef COMPLICATIONS: None apparent at the end of the case FINDINGS: Severe end stage tricompartmental knee osteoarthritis SPECIMENS: None EBL: 25 mL TOURNIQUET TIME: Not utilized Physician title assistant Yoan Edwards was required throughout the case, including preoperatively and postoperatively for their specific skills set with patient positioning, skilled retraction, manipulation of the operative extremity, retraction of tissues and closure. Due to the complexity of the case, the skill set of an orthopedic physician title assistant was needed throughout the case. No other qualified assistants were available for the case and their assistance was critical to completion of the case in a safe, timely and effective manner. IMPLANTS: Implant Name Type Inv. Item Serial No. Reproductive Surgeon Lot No. LRB No. Used Action [employer] Attune Cruciate Retain Cementless Knee Right 5 Narrow Component [id number] - [id number] [employer] Attune Cruciate Retain Cementless Knee Right 5 Narrow Component [id number] [employer] [id number] Right 1 Implanted [employer] Attune 35mm Cemented Medialize Knee Dome Patellar Aox Sterile [id number] - [id number] [employer] Attune 35mm Cemented Medialize Knee Dome Patellar Aox Sterile [id number] [employer] [id number] Right 1 Implanted [employer] ATTUNE FB TIB BASE SZ 5 POR [id number] - [id number] [employer] ATTUNE FB TIB BASE SZ 5 POR [id number] [employer] [id number] Right 1 Implanted [employer] Cmw 2 Fast Set Cement 20gm Bone Sterile 3322-020 - [id number] [employer] Cmw 2 Fast Set Cement 20gm Bone Sterile 3322- 020 [employer] [id number] Right 1 Implanted [employer] Insert Tibial Knee Fixed Rm Posterior Stabilized Attune 6mm Size 5 Polyethylene [id number] - [id number] [employer] Insert Tibial Knee Fixed Rm Posterior Stabilized Attune 6mm Size 5 Polyethylene [id number] [employer] [facility] [id number] Right 1 Implanted 1. DeP[employer] Attune CR [...] surgical timeout was then performed according to [facility] protocol identifying the correct patient, surgical procedure, [...] used to complete the arthrotomy to the medialaspect of the tubercle. The medial capsule and meniscus was placed on tension and a medial release of the deep MCL was taken around to the midpoint of the tibia with the bovie. The medial release wascompleted with a hernandez elevator posteriorly at the joint line. The extent of the release was based on the degree of deformity. A curved knee retractor [...] anatomic landmarks using the transepicondylar axis and Dallam's line. Two smooth pins were placed through [...] then placed in extension and a lamina cigar wrapper tender automatic was placed laterally and curved knee retractor medially. The medial meniscus was excised using the bovie taking care to protect the MCL. Any remaining bone was removed using a small saw. The lamina cigar wrapper tender automatic was then moved to the medial side [...] longitudinal traction was utilized coupled with alamina cigar wrapper tender automatic and an Aquamantys was utilized to minimize [...] impacted into place. A single batch of [employer] fast set cement was mixed on the [...] reinforcement. The knee was flexed up to xpktoamesyygx40 degrees and interrupted 2-0 vicryl sutures were [...] operative knee Regi Khan DO Orthopedic Surgeon [facility] 10/06/2023 9:32 AM * Perioperative [...] * POCT glucose (10/07/2023 11:32 AM CDT) [facility] Signature Glucose, POC 145 70 - 199 mg/dL Glucose comment 1 Use This Result OLIVIA CUNNINGHAM Blood 10/07/2023 11:3 2 AM CDT 10/07/2023 11:32 AM CDT Regi Khan DO LAB POCT ORDERABLES - DEVICE F inal Result PEREZSTEFFANY OCTAVIO [address] [facility] [place] [address] * POCT glucose (10/07/2023 8:24 AM CDT) Glucose, POC 149 70 - 199 mg/dL Glucose comment 1 Use This Result OLIVIA CUNNINGHAM Blood 10/07/2023 8:24 AM CDT 10/07/2023 8:24 AM CDT us Regi Khan DO LAB POCT ORDERABLES - DEVICE F inal Result OLIVIA CUNNINGHAM [address] [facility] [place] [address] * eGFR (10/07/2023 2:52 AM CDT) eGFR [...] GIRARD LAB BLOOD ORDERABLES Final Resul t OLIVIA [address] [facility] [place] [address] * (ABNORMAL) Differential, auto (10/07/2023 2:52 AM CDT) Neutrophil abs 8.1(H) 1.5 - 6.5 K/cumm Imm gran abs 0.0 0.0 - 0.1 K/cumm [facility] Lymphocyte abs 2.4 0.8 - 3.3 K/cumm [facility] Monocyte abs 1.0(H) 0.2 - 0.8 K/cumm [facility] Eosinophil abs 0.0 0.0 - 0.5 K/cumm [facility] Basophil abs 0.0 0.0 - 0.1 K/cumm [facility] Neutrophil pct 70.2 % [facility] Comment: Interpretive Data Percent cell count reference ranges are not reported, since discordance with absolute values may lead to misinterpretation of CBC data. Current Interpretive Data was last revised on 2017. Imm gran pct 0.2 % [facility] Comment: Interpretive Data Percent cell count reference ranges are not reported, since discordance with absolute values may lead to misinterpretation of CBC data. Current Interpretive Data was last revised on 2017. Lymphocyte pct 20.6 % [facility] Comment: Interpretive Data Percent cell count reference ranges are not reported, since discordance with absolute values may lead to misinterpretation of CBC data. Current Interpretive Data was last revised on 2017. Monocyte pct 8.6 % [facility] Comment: Interpretive Data Percent cell count reference ranges are not reported, since discordance with absolute values may lead to misinterpretation of CBC data. Current Interpretive Data was last revised on 2017. Eosinophil pct 0.1 % [facility] Comment: Interpretive Data Percent cell count reference ranges are not reported, since discordance with absolute values may lead to misinterpretation of CBC data. Current Interpretive Data was last revised on 2017. Basophil pct 0.3 % [facility] Comment: Interpretive Data Percent cell count reference ranges are not reported, since discordance with absolute values may lead to misinterpretation of CBC data. Current Interpretive Data was last revised on 2017. Blood 10/07/2023 2:52 AM CDT 10/07/2023 3:03 AM CDT Yoan GIRARD LAB BLOOD ORDERABLES Final Resul t Performing Organization Address [facility] Co de Phone Number [address] [email or web address] [address] * (ABNORMAL) CBC with auto differential (10/07/2023 2:52 AM CDT) WBC 11.5(H) 3.8 - 9.9 K/cumm Hgb 9.8(L) 11.9 - 15.5 g/dL [facility] Hct 31.6(L) 35.6 - 45.5 % [facility] Plt 265 150 - 400 K/cumm [facility] MPV 10.3 9.1 - 12.3 fL [facility] RBC 3.57(L) 3.90 - 5.20 M/cumm [facility] MCV 88.5 81.3 - 96.4 fL [facility] MCH 27.5 27.1 - 33.3 pg [facility] MCHC 31.0(L) 32.3 - 35.7 g/dL [facility] RDW CV 14.6 11.1 - 14.9 % [facility] RDW SD 47.2 35.7 - 48.1 fL [facility] NRBC abs 0.00 0.00 - 0.01 K/cumm [facility] Blood 10/07/2023 2:52 AM CDT 10/07/2023 3:03 AM CDT Yoan GIRARD LAB BLOOD ORDERABLES Final Resul t Performing Organization Address [facility] Co de Phone Number [address] [email or web address] [address] * Basic metabolic panel (10/07/2023 2:52 AM CDT) Sodium 140 135 - 145 mmol/L Potassium, pl 4.3 3.3 - 4.9 mmol/L [facility] Chloride 105 97 - 110 mmol/L [facility] CO2 27 22 - 32 mmol/L [facility] Anion gap 8 2 - 15 mmol/L [facility] BUN 21 6 - 25 mg/dL [facility] Creatinine 1.03 0.60 - 1.10 mg/dL [facility] Glucose 102 70 - 199 mg/dL [facility] Comment: Interpretive Data Fasting glucose >/= 126 [...] classification and Diagnosis of Diabetes Diabetes Care 2021; 46: S19-S40. Current interpretive data was last revised 2022. Calcium 9.8 8.5 - 10.3 mg/dL [facility] Blood 10/07/2023 2:52 AM CDT 10/07/2023 3:03 AM CDT Yoan GIRARD LAB BLOOD ORDERABLES Final Resul t Performing Organization Address City/[facility]/ZIP Co de Phone Number [address] [place] [address] * POCT glucose (10/06/2023 11:33 PM CDT) [facility] Signature Glucose, POC 179 70 - 199 mg/dL Blood 10/06/2023 11:3 3 PM CDT 10/06/2023 11:33 PM CDT Regi Khan DO LAB POCT ORDERABLES - DEVICE F inal Result Performing Organization Address City/[facility]/ZIP Co de Phone Number [address] [place] [address] * (ABNORMAL) POCT glucose (10/06/2023 6:13 PM CDT) Glucose, POC 228(H) 70 - 199 mg/dL Glucose comment 1 RN/MD Notified OLIVIA Blood 10/06/2023 6:13 PM CDT 10/06/2023 6:13 PM CDT [employer] DO LAB POCT ORDERABLES - DEVICE F inal Result Performing Organization Address City/[facility] Co de Phone Number OLIVIA [address] [email or web address] [address] * (ABNORMAL) POCT glucose (10/06/2023 4:48 PM CDT) Glucose, POC 251(H) 70 - 199 mg/dL Glucose comment 1 RN/ Notified OLIVIA Blood 10/06/2023 4:48 PM CDT 10/06/2023 4:48 PM CDT [employer] DO LAB POCT ORDERABLES - DEVICE F inal Result Performing Organization Address [facility] Co de Phone Number P[address] [email or web address] [place] [address] * (ABNORMAL) POCT glucose (10/06/2023 10:54 AM CDT) Glucose, POC 283(H) 70 - 199 mg/dL Glucose comment 1 RN/ Notified OLIVIA Blood 10/06/2023 10:5 4 AM CDT 10/06/2023 10:54 AM CDT [employer] DO LAB POCT ORDERABLES - DEVICE F inal Result Performing Organization Address City/[facility] Co de Phone Number [address] [email or web address] [address] * X-ray knee right 1 or 2 [...] D: ??10/06/2023 10:00 AM T: Report ID: [id number] Reading Location: ??[id number] Procedure Note Carlo Adams MD - 10/06/2023 [...] Carlo Adams M.D. RB T: Report ID: [id number] Reading Location: [id number] us Regi Khan DO IMG XR PROCEDURES Final Result * (ABNORMAL) POCT glucose (10/06/2023 9:34 AM CDT) [facility] Glucose, POC 215(H) 70 - 199 mg/dL Glucose comment 1 Use This Result OLIVIA Blood 10/06/2023 9:34 AM CDT 10/06/2023 9:34 AM CDT us Blakelyn Erin DO LAB POCT ORDERABLES - DEVICE F inal Result Performing Organization Address City/[facility]/ZIP Co de Phone Number OLIVIA [address] [email or web address] [address] * (ABNORMAL) POCT glucose (10/06/2023 9:31 AM CDT) Glucose, POC 244(H) 70 - 199 mg/dL Glucose comment 1 Will Repeat Test OLIVIA Blood 10/06/2023 9:31 AM CDT 10/06/2023 9:31 AM CDT [employer] DO LAB POCT ORDERABLES - DEVICE F inal Result Performing Organization Address [facility] Co de Phone Number OLIVIA [address] [email or web address] [address] * POCT glucose (10/06/2023 6:26 AM CDT) Glucose, POC 114 70 - 199 mg/dL Glucose comment 1 Use This Result OLIVIA Blood 10/06/2023 6:26 AM CDT 10/06/2023 6:26 AM CDT [employer] DO LAB POCT ORDERABLES - DEVICE F inal Result Performing Organization Address [facility]/ZIP Co de Phone Number OLIVIA [address] [email or web address] [address] * ABO / Rh Confirmation Testing (10/06/2023 6:10 AM CDT) ABO/Rh Confirmation A Positive [facility] Blood 10/06/2023 6:10 AM CDT 10/06/2023 6:32 AM CDT surespot DO LAB BLOOD ORDERABLES Final Res ult Performing Organization Address City/[facility]/ZIP Co de Phone Number OLIVIA [address] [email or web address] [address] [facility] documented in this encounter Visit Diagnoses Diagnosis Osteoarthritis of right knee- Primary Osteoarthrosis, unspecified whether generalized or localized, lower leg Primary osteoarthritis of right knee [M17.11] Aftercare following right knee joint replacement surgery Arthritis of right knee Primary osteoarthritis of right knee documented in [...] Irritation Given 10/07/2023 8:46 AM CDT 1 lozenge BUPivacaine-EPINEPHrine (MARCAINE with EPI) 0.5 %-1:200,000 preservative free injection As needed, Starting on Fri10/06/23 at 0810, Intra-Op Given 10/06/2023 8:10 AM CDT 40 mL Surgical Site busPIRone (BUSPAR) tablet 5 mg 5 mg, [...] Call MD for each episode of hypoglycemia. PRINTER TECHNICIAN STATES GLUTOSE-15 CONTAINS GLUCOSE 40% W/W (50% [...] Choose Target (mg/dL): 110, Indications: Diabetes MellitusIndications:Lisa betes Mellitus Self Administered Via Pump 10/06/2023 6:13 [...] Given 10/06/2023 12:59 PM CDT 100 mg morphine injection Administer over 4 Minutes, As needed, Starting on Fri10/06/23 at 0809, Intra-Op Given 10/06/2023 8:09 AM CDT 4 mg Juancho gical Site oxyCODONE (ROXICODONE) tablet 5 mg 5 mg, [...] Indications: Pain 1425 (Given - Provider: Tania Merritt, SARA)2211 (Given - Provider: Deborah Ortiz RN) 0343 (Given - Provider: Deborah Ortiz RN)0857 (Given - Provider: Tania Merritt RN)1431 (Given - Provider: Tania Merritt RN) aspirin [...] 1123 (Held by Provider - Provider: Regi Khan DO - Reason: Hold for Procedure)1200 (Dose Auto Held) 0800 (Unheld by Provider - Provider: Regi Khan DO - Reason: Hold for Procedure)0858 (Given [...] size. 1413 (Not Given - Provider: Tania Merritt RN - Reason: IV Infusing)2212 (Given - Provider: Deborah Ortiz, SARA) 0632 (Canceled Entry - Provider: Deborah Ortiz [...] Call MD for each episode of hypoglycemia. PRINTER TECHNICIAN STATES GLUTOSE-15 CONTAINS GLUCOSE 40% W/W (50% [...] RN)1000 (Given - Provider: Fredy Ansari RN) insulin lispro (HumaLOG, ADMELOG) 100 unit/mL injection [...] Call MD for each episode of hypoglycemia. PRINTER TECHNICIAN STATES GLUTOSE-15 CONTAINS GLUCOSE 40% W/W (50% [...] Ordered Date bisacodyL (DULCOLAX) suppository 10 mg 1 ceFAZolin (ANCEF) 2,000 mg/2 0 mL in sterile water (premix) 2,000 mg 10/06/2023 citalopram (CeleXA) tablet 20 mg 10/06/19 dexAMETHasone (DECADRON) pre servative free solution 10 mg 10/06/2023 dextrose (D10W) 10% bolus 250 mL 10/06/19 dextrose (GLUTOSE) 40 % gel 15 g 10/06/19 diphenhydrAMINE (BENADRYL) 5 0 mg/mL injection 12.5 mg 10/06/2023 escitalopram (LEXAPRO) tablet 10 mg 10/05 escitalopram (LEXAPRO) tablet 15 mg 10/05 estradioL (ESTRACE) tablet 0.5 mg famotidine (PEPCID) tablet 20 mg 10/06/19 fentaNYL (SUBLIMAZE) preserv ative free injection 50 mcg 10/06/2023 glucagon injection 1 mg 10/06/2023 hydrALAZINE (APRESOLINE) injection 5 mg 1 0 10/06/2023 HYDROmorphone (DILAUDID) injection 0.2 mg 10/06/2023 insulin lispro (HumaLOG, ADM ELOG) 100 unit/mL injection 0-4 Units 10/06/2023 insulin lispro (HumaLOG, ADM ELOG) 100 unit/mL injection 0-5 Units 10/06/2023 insulin lispro (HumaLOG, ADM ELOG) 100 unit/mL injection 9 Units 10/06/2023 ketorolac (TORADOL) 30 mg/mL injection 15 mg 10/06/2023 labetaloL (NORMODYNE,TRANDAT E) injection 5 mg 10/06/2023 Lactated Ringer's (LR) infusion lidocaine (XYLOCAINE) 10 mg/ mL (1 %) injection 2-10 mg 10/06/2023 meclizine (ANTIVERT) tablet 25 mg meperidine (DEMEROL) preserv ative free injection 25 mg 10/06/2023 naloxone (NARCAN) 0.4 mg/mL injection 0.04-0.4 [...] Date POCT GLUCOSE DEVICE 11 10/07/2023 10/06/19 24 General Supply Count Last Ordered Date First Or dered Date WALKER 1 10/07/2023 Nursing Count Last Ordered Date First Orde red Date DISCHARGE ACTIVITY 1 10/07/2023 DISCHARGE DRESSING 2 10/07/2023 WEIGHT BEARING STATUS 1 10/07/2023 BLADDER SCAN 1 10/06/2023 Consult Count Last Ordered Date First Orde red Date IP CONSULT TO TAPPER BALANCE WHEEL SCREW HOLE 1 Admission Count Last Ordered Date First Orde red Date INITIATE OUTPATIENT IN A BED 1 10/06/2023 Discharge Count Last Ordered Date First Orde red Date DISCHARGE PATIENT 1 10/07/2023 documented in this encounter Care Teams Brass Wind Instrument Maker Relationship Specialty Start Date End Date Eron Holliday NP [address] [place] [address] PCP - General Pain Management 07/15/22 Marialuisa Daniel NP [address] [place] [address] Nurse Practitioner Endocrinology Diabetes & Metabolism 09/22/23 Leobardo Bhagat MD [address] [place] [address] [address] Consulting Physician Nephrology 09/22/23 [place] [id number] [address] Consulting Physician Cardiovascular Disease 09/22/23 documented as of this encounter
--- OUTSIDE RECORDS SUMMARY | 2024-03-03 15:34 | XMS_ITS | Encounter Summary ---
Author Organization [facility] Healthcare Address [address] [place] [address] Care Team Providers Care Rice Field Worker Name Role Phone Eron Holliday NP Primary Care Provider [phone] Marialuisa Daniel NP Unavailable [phone] Leobardo Bhagat MD Unavailable [phone] Florin Dixon MD Unavailable Reason for Referral * MRI/CAT/PET Scan (Routine) - Closed Specialty Diagnoses / Procedures Referred By Claudette t Referred To Contact Radiology Diagnoses Right cervical radiculopathy Cervical stenosis of spinal canal Foraminal stenosis of cervical region 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 Arthropathy of cervical facet joint Anterolisthesis of cervical spine Procedures CT Cervical Spine WO Contrast Felipe Cox MD [address] [place] [address] Phone: tel: fax: [address] [phone] Referral ID Status Reason Start Date Expiration Date Visits Re quested Visits Authorized [id number] Closed 10/22/2023 11/20/2024 1 1 Reason for Visit * Reason Comments Neck Pain Neck pain did have n umbness and tingling down right arm ,but better * Consultation (Routine) - Closed Specialty Diagnoses / Procedures Referred By Contac t Referred To Contact Neurosurgery Diagnoses Right cervical radiculopathy Cervical stenosis of spinal canal Foraminal stenosis of cervical region 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 Arthropathy of cervical facet joint DDD (degenerative disc disease), cervical Anterolisthesis of cervical spine Lamar Slater, TUNNEL ELASTIC OPERATOR LOCKSTITCH [address] [address] Phone: tel: fax: Felipe Cox MD [address] [place] [address] Phone: tel: fax: Referral ID Status Reason Start Date Expiration Date V isits Requested Visits Authorized [id number] Closed Specialty Services Required 08/08/2023 09/06/2024 1 1 Encounter Details Date Type Department Care Team (Latest Contact Info) Description 10/22/2023 10:00 AM CDT Office Visit [facility] [address] [facility] [address] [place] [address] Feilpe Cox MD [address] [place] [address] Right cervical radiculopathy; Cervical stenosis of spinal canal; Foraminal stenosis of cervical region; 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; Arthropathy of cervical facet joint; DDD (degenerative disc disease), cervical; Anterolisthesis of cervical spine Social History Tobacco Use Types Packs/Day Years [...] materials from doctor or pharmacy Never 10/22/2023 [facility] Utilities Answer Date Recorded In the [...] often do you attend chur ch or congregational services? 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 Not on file Not on file Not on file documented as of this encounter Last Filed Vital Signs Vital Sign Reading Time Taken Comments Blood Pressure 152/84 10/22/2023 10:27 AM CDT Pulse 71 10/22/2023 10:27 AM CDT Temperature - - Respiratory Rate - - Oxygen Saturation - - Inhaled Oxygen Concentration - - Weight 93.2 kg (205 lb 6.4 oz) 10/22/2023 10:27 AM CDT Height 165.1 cm (5' 5 ) 10/22/2023 10:27 AM CDT Body Mass Index 34.18 10/22/2023 10:27 AM CDT documented in this encounter Patient Instructions * Patient Instructions* Aby Zabala RN - 10/22/2023 10:[address] scan ordered, call to schedule Follow up in 3 months documented in this encounter Progress Notes * Felipe Cox MD - 10/22/2023 10:00 AM CDT Images from the original note were not included. NEW PATIENT VISIT Chief Complaint: No chief complaint on file. History of Present Illness: Sandy Lopez is a 58 y.o. female presenting for evaluation of neck pain. The patient reports that her neck started hurting about 4 or 5 months ago. At that time she was also having numbness down the right arm mainly on the dorsum aspect of the hand from the lateral epicondyle into the index finger.She does note dexterity issues and dropping objects and recently underwent a knee operation but prior to that had reported difficulties with balance. She denies any major complaints down the left side. She does report baseline dysphagia She is diabetic on insulin with last A1c of 7.4 on 09/22/23 Pain Management: None for neck Physical Therapy: Rehabbing from knee Blood thinning medications: 81 mg ASA, Plavix 75mg daily Smoking: Current smoker Review of Systems: A complete 11 system ROS was performed and was negative aside from pertinent positives and negatives noted in HPI Past Medical History: has a past medical history of Anxiety, Arthritis, Arthropathy of cervical facet joint, DDD (degenerative disc disease), cervical, Depression, Diabetes ([facility]), Dizziness, Foraminal stenosis of cervicalregion, GERD (gastroesophageal reflux disease), H/O insulin dependent diabetes mellitus, High bloodpressure, Hyperlipidemia, Insulin pump in place, Obesity, PAD (peripheral artery disease) ([facility]), Second hand smoke exposure, Stomach ulcer, Type 1 diabetes mellitus ([facility]) (08/04/2018), Uncontrolled type 2 diabetes mellitus with hyperglycemia ([facility]) (03/14/2017), Uncontrolled type 2 diabetes mellituswith hyperglycemia, with long-term current use of insulin ([facility]) (04/03/2017), Uses self-applied cont inuous glucose monitoring device, and Wears partial dentures. Past Surgical History: has a past surgical history that includes section; Knee arthroscopy; Carpal tunnel release; Elbow surgery; Tonsillectomy; and Esophagogastroduodenoscopy (2023). Family History: family history includes Diabetes in her father; Heart disease in her mother; Hypertension in her mother. Social History: reports that she quit smoking about 3 years ago. Her smoking use included cigarettes. She has neverused smokeless tobacco. She reports that she does not use drugs. Medications: Current Outpatient Medications: alcohol swabs pads, medicated, Apply 1 each topically 4 (four) times a day before meals and ntkfhokD28.65, Disp: 400 each, Rfl: 3 aspirin 81 [...] Disp: 1 kit, Rfl: 1 blood-glucose sensor (Dexcom G7 Sensor) device, , Disp: , Rfl: blood-glucose transmitter (Dexcom G6 Transmitter) device, , Disp: , Rfl: busPIRone (BUSPAR) 5 mg tablet, Take 1 tablet (5 mg total) by mouth 2 (two) times a day, Disp: , Rfl: cholecalciferol 25 mcg (1,000 unit) tablet, , Disp: , Rfl: citalopram (CeleXA) 20 mg tablet, Take 1.5 tablets (30 mg total) by mouth every morning, Disp: , Rfl: clopidogreL (PLAVIX) 75 mg tablet, Take 1 tablet (75 mg total) by mouth daily, Disp: , Rfl: Dexcom G7 Sensor device, 1 Device continuously . Change every 10 days. E11.65, Disp: 10 each, Rfl: 3 docusate sodium (COLACE) 100 mg capsule, Take 1 capsule (100 mg total) by mouth 2 (two) times a day, Disp: 60 capsule, Rfl: 0 docusate sodium (COLACE) 100 mg capsule, Take 1 capsule (100 mg total) by mouth 2 (two) times a day, Disp: 60 capsule, Rfl: 0 ergocalciferol, vitamin D2, 50 mcg (2,000 unit) capsule, Take 2,000 Units by mouth daily, Disp: , Rfl: ezetimibe [...] PUMP MAX OF 150 UNITS DAILY NEEDED [id number], 0400-2.6 PER HOUR IC 6 ISF 20 [...] daily E11.65, Disp: 30 each, Rfl: 11 ondansetron ODT (ZOFRAN-ODT) 4 mg disintegrating tablet, Take 1 tablet (4 mg total) by mouth every 8 (eight) hours as needed for nausea or vomiting, Disp: 10 tablet, Rfl: 0 ondansetron ODT (ZOFRAN-ODT) 4 mg disintegrating tablet, Take 1 tablet (4 mg total) by mouth every 8 (eight) hours as needed for nausea or vomiting, Disp: 10 tablet, Rfl: 0 oxyCODONE (ROXICODONE) 5 mg immediate release tablet, Take 1 tablet (5 mg total) by mouth every 8 (eight) hours as needed for pain, Disp: 21 tablet, Rfl: 0 oxyCODONE (ROXICODONE) 5 mg immediate release tablet, Take 1 tablet (5 mg total) by mouth every 8 (eight) hours as needed for pain, Disp: 21 tablet, Rfl: [address] (PROTONIX) 40 mg EC tablet, [...] mcg tablet, Take 1 tablet by mouth daily , Disp: , Rfl: tirzepatide (MOUNJARO) 7.5 mg/0.5 mL pen injector, Inject 7.5 mg under the skin once a week E11.65 (Patient taking differently: Inject 7.5 mg under the skin once a week E11.65 friday), Disp: 6 mL, Rfl: 4 zolpidem (AMBIEN) 10 mg tablet, Take 1 tablet (10 mg total) by mouth nightly as needed, Disp: , Rfl: Allergies: is allergic to codeine, nsaids (non-steroidal anti-inflammatory drug), and ibuprofen. Vital Signs: LMP (LMP Unknown) There is no height or weight on file to calculate BMI. Physical Exam: AO3 NAD 4/5 in right hand adhesive sprayer and triceps -Katheryn Increased reflexes in RUE compared to LUE Imaging: MRI c spin 08/07/23 Cervical xrays 04/19/23 Electrodiagnostics: none Assessment and Plan: Sandy Lopez is presenting for neck pain. Her imaging shows subaxial degeneration most notably at the C5-6 and C6-7 with moderate spinal canal stenosis. There is anterior listhesis of C4 on C5 this does not appear to change on flexion-extension. She is currently rehabbing from an knee operation and occurred 2 weeks. We will plan on seeing her back in 3 months to allow [facility]. We will also order a CT scan of the cervical spine We discussed the signs and symptoms of myelopathy as she does appear to have mild myelopathy and discussed that if these get worse we would like to see her sooner. CT cervical spine Follow-up in 3 months Felipe Cox MD documented in this encounter Plan of Treatment Not on file documented as of this encounter Results * CT Cervical Spine [...] significant spinal canal stenosis. ??Uncovertebral spurring and acjc-nhdnass-mlfz-right facet arthropathy without significant osseous neural foraminal narrowing. C5-C6: Posterior disc osteophyte complex and thickened ligamentum flavum. ?? Qhuw-kg-kheekndo spinal canal stenosis. ??Uncovertebral spurring and facet arthropathy with cfne-ht-dunqdruz left and no significant right osseous neural foraminal narrowing. C6-C7: Posterior disc osteophyte complex and thickened ligamentum flavum. ?? Moderate spinal canal stenosis. ??Uncovertebral spurring and facet arthropathy with moderate right and vyrx-dj-pjfsqwzg left neural foraminal narrowing. C7-T1: Disc bulge [...] D: ??11/23/2023 9:33 AM T: Report ID: [id number] Reading Location: ??[id number] Procedure Note Sergio Hensley, DO - 11/24/2023 [...] significant spinal canal stenosis. Uncovertebral spurring and qamz-bzzezst-ulvw-right facet arthropathy without significant osseousneural foraminal narrowing. C5-C6: Posterior disc osteophyte complex and thickened ligamentum flavum. Nork-jl-gtzqwnmi spinal canal stenosis. Uncovertebral spurring and facet arthropathy with tacy-kx-luebnqhb left and no significant right osseousneural foraminal narrowing. C6-C7: Posterior disc osteophyte complex and thickened ligamentum flavum. Moderate spinal canal stenosis. Uncovertebral spurring and facetarthropathy with moderate right and vzdc-ki-mtaxepya left neural foraminalnarrowing. C7-T1: Disc bulge without [...] signed by Sergio AVENDANO T: Report ID: [id number] Reading Location: [place] [address] Felipe Cox MD IMG CT PROCEDURES Final Result documented in this encounter Visit Diagnoses Diagnosis Right cervical radiculopathy Cervical stenosis of spinal canal Spinal stenosis in cervical region Foraminal stenosis of cervical region 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 Arthropathy of cervical facet joint DDD (degenerative disc disease), cervical Degeneration of cervical intervertebral disc Anterolisthesis of cervical spine Right cervical radiculopathy Cervical stenosis of spinal canal Spinal stenosis in cervical region Foraminal stenosis of cervical region 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 Arthropathy of cervical facet joint Anterolisthesis of cervical spine documented in this encounter Orders Outpatient Referral Count Last Ordered Date Fir st Ordered Date AMB REFERRAL TO NEUROSURGERY 1 10/22/2023 documented in this encounter Care Teams Rice Field Worker Relationship Specialty Start Date End Date Eron Holliday NP [address] [facility] [place] [address] PCP - General Pain Management 07/15/22 Marialuisa Daniel NP [address] [place] [address] [place] [address] Nurse Practitioner Endocrinology Diabetes & Metabolism 09/22/23 Leobardo Bhagat MD [address] [place] [address] [address] Consulting Physician Nephrology 09/22/23 [place] [id number] [address] Consulting Physician Cardiovascular Disease 09/22/23 documented as of this encounter
--- OUTSIDE RECORDS SUMMARY | 2024-03-03 15:34 | XMS_ITS | Encounter Summary ---
Author Organization [facility] Healthcare Address [address] [place] [address] Care Team Providers Care Solar Process Engineer Name Role Phone Eron Holliday NP Primary Care Provider [phone]- [phone] Marialuisa Daniel NP Unavailable [phone] Leobardo Bhagat MD Unavailable [phone] Florin Dixon MD Unavailable Reason for Visit * Reason Onset Date Comments Home Health 10/11/2023 Encounter Details Date Type Department Care Team (Late st Contact Info) Description 10/11/2023 Telephone [facility] Home Care Services [address] [place] [address] Dilia Bustos, RN Home Health Social History Tobacco Use Types Packs/Day Years [...] often do you attend chur ch or restoration services? 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 LVM with contact information. ([id number]) Patient returned call. Home Health Intake Interview completed. Patient verified all information. All questions addressed. documented in this encounter Plan of Treatment Not on file documented as of this encounter Visit Diagnoses Not on filedocumented in this encounter Care Teams Solar Process Engineer Relationship Specialty Start Date End Date Eron Holliday NP [address] [place] [address] PCP - General Pain Management 07/15/22 Marialuisa Daniel NP [address] [place] [address] Nurse Practitioner Endocrinology Diabetes & Metabolism 09/22/23 Leobardo Bhagat MD [address] [place] [address] [address] [place] [address] Consulting Physician Nephrology 09/22/23 [place] [id number] [facility] [address], [place] [address] Consulting Physician Cardiovascular Disease 09/22/23 documented as of this encounter
--- OUTSIDE RECORDS SUMMARY | 2024-03-03 15:34 | XMS_ITS | Encounter Summary ---
Author Organization [facility] Healthcare Address [address] [place] [address] Care Team Providers Care Grinder Mill Operator Name Role Phone Eron Holliday NP Primary Care Provider [phone]- [phone] Marialuisa Daniel NP Unavailable [phone] Leobardo Bhagat MD Unavailable [phone] Florin Dixon MD Unavailable Reason for Referral * Consultation (Routine) - Closed Specialty Diagnoses / Procedures Referred By Claudette smith Referred To Contact Physical Therapy Diagnoses Aftercare following right knee joint replacement surgery Regi Khan DO [address] [facility] [address] [address] Phone: tel: fax: [address] [address] Referral ID Status Reason Start Date Expiration Date V isits Requested Visits Authorized [id number] Closed Evaluate and Treat 10/17/2023 11/15/2024 18 18 Question Answer PTRFR PT Evaluate and Treat Reason for Visit Post RTKA (09/26/2023) Therapy options discussed with patient? Yes Location provided for therapy services is: Patient requested/Patient preferred Please select the performing region: [facility] [[id number]] # of visits: 18 Comments 2-3 visits, per week, for 6 weeks. Encounter Details Date Type Department Care Team (Late st Contact Info) Description 10/17/2023 Orders Only [facility] Medical Group Orthopedics and Sports Medicine [address] [place] [phone] Regi Khan DO [address] [facility] [place] [address] Aftercare following right knee joint [...] materials from doctor or pharmacy Never 10/12/2023 [facility] Utilities Answer Date Recorded [...] often do you attend chur ch or rastafari services? 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 documented in this encounter Plan of Treatment Scheduled Referrals Name Type Priority Associated Diagnoses Orde r Schedule Ambulatory referral order to Physical Therapy - Outpatient Referral Routine Aftercare following right knee joint replacement surgery Expected: 10/17/2023 (Approximate), Expires: 10/16/2024 documented as of this encounter Visit Diagnoses Diagnosis Aftercare following right knee joint replacement surgery- Primary documented in this encounter Care Teams Grinder Mill Operator Relationship Specialty Start Date End Date Eron oHlliday NP [address] [place] [address] PCP - General Pain Management 07/15/22 Marialuisa Daniel NP [address] [place] [address] Nurse Practitioner Endocrinology Diabetes & Metabolism 09/22/23 Leobardo Bhagat MD [address] [place] [address] Consulting Physician Nephrology 09/22/23 [place] [id number] [address] Consulting Physician Cardiovascular Disease 09/22/23 documented as of this encounter
--- OUTSIDE RECORDS SUMMARY | 2024-03-03 15:34 | XMS_ITS | Encounter Summary ---
Author Organization [facility] Healthcare Address [address] [place] [address] Care Team Providers Care Leaf Coverer Name Role Phone Eron Holliday NP Primary Care Provider [phone] Marialuisa Daniel NP Unavailable [phone] Leobardo Bhagat MD Unavailable Florin Dixon MD Unavailable Encounter Details Date Type Department Care Team (Late st Contact Info) Description 10/13/2023 Plan of Care Documentation [facility] [place] [address] [address] [place] [address] Social History Tobacco Use Types Packs/Day Years [...] any clubs o r organizations such as methodist groups, unions, fraternal or athletic groups, or [...] any time in the past 12 m [facility], were you homeless or living in a [...] on file 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 The patient is under my care, and I have authorized serviceson this plan of care and will periodically review the plan. The patient had a [id number] encounter with Yoan Edwards PA on 10/06/2023 and the encounter was related to the primary reason for home health care. documented in this encounter Plan of Treatment Not on file documented as of this encounter Visit Diagnoses Not on filedocumented in this encounter Care Teams Leaf Coverer Relationship Specialty Start Date End Date Eron Holliday NP [address] [facility] [address] PCP - General Pain Management 07/15/22 Marialuisa Daniel NP [address] [place] [address] [place] [address] Nurse Practitioner Endocrinology Diabetes & Metabolism 09/22/23 Leobardo Bhagat MD [address] [place] [address] Consulting Physician Nephrology 09/22/23 [place] [id number] [address] Consulting Physician Cardiovascular Disease 09/22/23 documented as of this encounter
--- OUTSIDE RECORDS SUMMARY | 2024-03-03 15:35 | XMS_ITS | Encounter Summary ---
Author Organization [facility] Healthcare Address [address] [place] [address] Care Team Providers Care Floors Buffer Name Role Phone Eron Holliday NP Primary Care Provider [phone] Reason for Referral * Procedure (Routine) - Pending Review Specialty Diagnoses / Procedures Referred By Claudette t Referred To Contact Diagnoses Primary osteoarthritis of right knee Procedures Large Joint (Hip, Knee, Shoulder) Injection: R knee Regi Khan DO [address] [facility] [address] [place] [address] Phone: tel: fax: [facility] Medical Group Referral ID Status Reason Start Date Expiration Date V isits Requested Visits Authorized [id number] Pending Review 02/21/2023 03/22/2024 1 1 S ATTENDANT BUILDING MATERIALS Reason for Visit * Reason Comments Injections Euflexxa #2 Encounter Details Date Type Department Care Team (Latest Contact Info) Description 02/21/2023 9:30 AM SALES ATTENDANT BUILDING MATERIALS Clinical Support [facility] Medical Group Orthopedics and Sports Medicine [address] [place] [phone] Regi Khan DO [address] [facility] [address] [place] [address] Primary osteoarthritis of right knee (Primary Dx) Social History Tobacco Use Types Packs/Day Years Used Date Smoking Tobacco: Former Cigarettes Q uit: 03/20/2020 Smokeless Tobacco: Never Tobacco Cessation:Counseling Given: Not Answered Personal Safety Answer Date Recorded Getting School Help Needed Not on file 02/13 Comments No Sex and Gender Information Value Date Recorded Sex Assigned at Not on file Legal Sex Female 8:53 AM SALES ATTENDANT BUILDING MATERIALS Gender Identity Female 12/26/2023 10:11 PM CDT Sexual Orientation Straight 12/26/2023 10 :11 PM CDT documented as of this encounter Last Filed Vital Signs Vital Sign Reading Time Taken Comments Blood Pressure - - Pulse - - Temperature - - Respiratory Rate - - Oxygen Saturation - - Inhaled Oxygen Concentration - - Weight 99.8 kg (220 lb) 02/21/2023 9:14 AM SALES ATTENDANT BUILDING MATERIALS Height 165.1 cm (5' 5 ) 02/21/2023 9:14 AM SALES ATTENDANT BUILDING MATERIALS Body Mass Index 36.61 02/21/2023 9:14 AM SALES ATTENDANT BUILDING MATERIALS documented in this encounter Progress Notes * Regi Khan DO - 02/21/2023 9:30 AM CSTAssociated Order(s): Large Joint (Hip, Knee, Shoulder) Injection: R knee Post-Procedure Diagnose(s): Primary osteoarthritis of right knee Images from the original note were not included. Injection visit CHIEF COMPLAINT She had concerns including Injections of the Right Knee (Euflexxa #2). HISTORY OF PRESENT ILLNESS Sandy Lopez is a 57 y.o. female who was seen today for planned 2nd right knee Euflexxa injection. Patient states there has been no significant change in their symptomatology since previous exam. PAST MEDICAL HISTORY She has a past medical history of Anxiety, Arthritis, Depression, Diabetes ([facility]), Dizziness, GERD (gastroesophageal reflux disease), High blood pressure, Type 1 diabetes mellitus ([facility]) (08/04/2018), Uncontrolled type 2 diabetes mellitus with hyperglycemia ([facility]) (03/14/2017), and Uncontrolled type 2diabetes mellitus with hyperglycemia, with long-term current use of insulin ([facility]) (04/03/2017). PAST SURGICAL HISTORY She has no past surgical history on file. MEDICATIONS She has a current medication list which includes the following prescription(s): alcohol swabs, aspirin, atorvastatin, blood-glucose meter, buspirone, cetirizine, cholecalciferol, citalopram, clopidogrel, cyclobenzaprine, dexcom g6 manager hematology, dexcom g6 transmitter, dexcom g7 sensor, empagliflozin, estradiol, ezetimibe, famotidine, fexofenadine, hydroxyzine, lantus, insulin lispro, humalog, omnipod dash pods (gen 4), omnipod dash pods (gen 4), insulin syringe- needle u-100, losartan-hydrochlorothiazide, meclizine, medroxyprogesterone, metformin, pen needle, diabetic, pen needle, diabetic, prednisone, propranolol, sumatriptan, and zolpidem. ALLERGIES She is allergic to codeine, nsaids (non-steroidal anti-inflammatory drug), and ibuprofen. SOCIAL HISTORY She reports that she quit smoking about 2 years ago. Her smoking use included cigarettes. She has never used smokeless tobacco. No alcohol history on file. FAMILY HISTORY History reviewed. No pertinent family history. REVIEW OF SYSTEMS Constitutional: Positive for activity change Musculoskeletal: Positive for arthralgias PHYSICAL EXAM Ht 165.1 cm (5' 5 ) Wt 99.8 kg (220 lb) LMP (LMP Unknown) BMI 36.61 kg/m?? Right knee Inspection The patient has normal inspection of the right knee. Erythema: absent Cellulitis: absent Swelling: absent Skin temperature: normal Gait: antalgic Palpation The patient has normal palpation of the right knee. Tenderness: present. The tenderness is located in the pes anserinus. Crepitus: positive Patella grind: positive Range of motion The patient has normal range of motion of the right knee. The patient has pain with range of motion of the right knee. Flexion contracture: no. Extensor lag: no. Stability AP stability: stable ML stability: stable Strength The patient has 5/5 strength thoughout right knee. Neurovascular The patient has normal vascular on the right side of their body. The patient has normal sensation on the right side of their body. Left knee The patient has normal inspection, palpation, range of motion, strength, and stabiltiy of the left knee. Large Joint (Hip, Knee, Shoulder) Injection: R knee Performed by: Regi Khan DO Authorized by: Regi Khan DO Large Joint Injection/Aspiration: Consent Given by: Patient Timeout: prior to procedure the correct patient, procedure, and site was verified Verbal consent obtained: Yes Supporting Documentation: Indications: Pain Procedure Details: Location: Knee Site: R knee Needle Size: 22 G Approach: Anterolateral Medications: 20 mg sodium hyaluronate (viscosup) 10 mg/mL(mw 2.4 -3.6 million) Patient tolerance: Patient tolerated the procedure well with no immediate complications Assessment/Plan: 1. Primary osteoarthritis of right knee - Large Joint (Hip, Knee, Shoulder) Injection: R knee Patient tolerated the injection without any obvious complication. Injection was performed in the anterolateral aspect of the right knee. Plan for follow up in 1 week for the next injection in the series. 0 Regi Khan DO 02/21/2023 S ATTENDANT BUILDING MATERIALS documented in this encounter Plan of Treatment Not on file documented as of this encounter Procedures Procedure Name Priority Date/Time Associated Diagnosis Comments FL ARTHROCENTESIS ASPIR&/INJ MAJOR JT/BURSA W/O US Routine 02/21/2023 9:30 AM SALES ATTENDANT BUILDING MATERIALS Primary osteoarthritis of right knee documented in this encounter Results * FL ARTHROCENTESIS ASPIR&/INJ MAJOR JT/BURSA W/O US (02/21/2023 9:30 AM SALES ATTENDANT BUILDING MATERIALS) Narrative Regi Khan DO - 02/21/2023 9:30 AM SALES ATTENDANT BUILDING MATERIALS Regi Khan DO ? 02/21/2023 ??9:57 AM Large Joint (Hip, Knee, Shoulder) Injection: R knee Performed by: Regi Khan DO Authorized by: Regi Khan DO ?? Large Joint Injection/Aspiration: ??Consent Given by: ??Patient ??Timeout: prior to procedure the correct patient, procedure, and site was verified ?Verbal consent obtained: Yes ?? Supporting Documentation: ??Indications: ??Pain Procedure Details: ??Location: ??Knee ??Site: ??R knee ??Needle Size: ??22 G ??Approach: ??Anterolateral ??Medications: ??20 mg sodium hyaluronate (viscosup) 10 mg/mL(mw 2.4 -3.6 million) ??Patient tolerance: ??Patient tolerated the procedure well with no immediate complications us Regi Khan DO IN CLINIC/BEDSIDE ORDERABLES F inal Result documented in this encounter Visit Diagnoses Diagnosis Primary osteoarthritis of right knee- Primary documented in this encounter Administered Medications Inactive Administered Medications - up to 3 most recent administrations Medication Order MAR Action Action Date Dose Rate Site sodium hyaluronate (viscosup) (EUFLEXXA) 10 mg/mL(mw 2.4 -3.6 million) injection 20 mg 20 mg, One-Time Injection, Starting on Fri02/21/23 at 0930, For 1 doseIndications:Primary osteoarthritis of right knee Given 02/21/2023 9:30 AM SALES ATTENDANT BUILDING MATERIALS 20 mg Right Knee documented in this encounter Care Teams Floors Buffer Relationship Specialty Start Date End Date Eron Holliday NP [address] [place] [address] [place] [address] PCP - General Pain Management 07/15/22 documented as of this encounter
--- OUTSIDE RECORDS SUMMARY | 2024-03-03 15:35 | XMS_ITS | Encounter Summary ---
Author Organization [facility] Healthcare Address [address] [place] [address] Care Team Providers Care Monogram And Letter Paster Name Role Phone Eron Acevedo NP Primary Care Provider [phone]- [phone] Reason for Visit * Reason Comments PT Treatment * Physical Therapy (Routine) - Closed Specialty Diagnoses / Procedures Referred By Contchristianne t Referred To Contact Physical Therapy Diagnoses Chronic neck pain Arthropathy of cervical facet joint DDD (degenerative disc disease), cervical Foraminal stenosis of cervical region Anterolisthesis of cervical spine Numbness and tingling of right upper extremity Primary osteoarthritis, right shoulder Tendonitis of right infraspinatus tendon Lamar Slater, CHRISTOPHER [address] [address] Phone: tel: fax: [address] [phone] Referral ID Status Reason Start Date Expiration Date V isits Requested Visits Authorized [id number] Closed Evaluate and Treat 05/08/2023 05/07/2024 16 12 Encounter Details Date Type Department Care Team (Late st Contact Info) Description 05/27/2023 3:00 PM CDT Therapy [facility] Medical Office Bldg 1 OP Physical Therapy [address] [place] [id number] Akilah Dennis PTA Numbness and tingling of right upper extremity (Primary Dx) Social History Tobacco Use Types Packs/Day Years Used Date Smoking Tobacco: Former Cigarettes Q uit: 03/20/2020 Smokeless Tobacco: Never Personal Safety Answer Date Recorded Getting School Help Needed Not on file 02/13 Comments No Sex and Gender Information Value Date Recorded Sex Assigned at Not on file 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 ERON ACEVEDO. PT Diagnosis: Cervical derangements Precautions: None Relevant Comorbidities: Diabetes Short-Term Goals: to be met by 06/08/23 Patient will be instructed in HEP Patient will improve on CS ROT and SB 5 degrees Patient will report 25% improvement Long-Term Goals: to be met by 07/03/23 Patient will be independent in HEP (new and revised). Patient will restore CS AROM 80% of norm Patient will report 75% improvement of symptoms Patient Goal: Resolve neck pain PT Eval Date: 05/08/23 Orders : 07/03/23 INITIAL CERTIFICATION DATES: From 05/08/23 to 07/03/2023 (8 weeks) Date Date Date Date Date 05/09/23 05/20/2023 05/27/23 Visit Number 1 3 4 ADDITIONAL HEP SHEETS ISSUED Chin Devonte 10 2 x10 2x10 2 x 10 Scap Add 15 10x TB Rows Red 20 Red x20 Red x20 Red x 20 CS Extension AROM 15 R Tricep Extension tubing (arm at side) Red 20 Red x20 3# 2x10 Red x 20 R Levator stretch 4x 4x Seated Row Machine 20# 15x 20# 15 x both handles Lat Pull Down Machine 20# x15 20# 15x CS Joint glide C6-C7 3 Sets R side glide TDN / STM EW PT EW, PT EW, PT NT Mechanical Traction Cervical Next visit 17# ON 9# OFF 17#on9#off 17# on 9# off Progress Note/Re-Cert TDN treatment utilized .30 x 40,50 mm J Type needles. Treatment site included: R C5 - T1 PVM x 3, RUT, R Levator, R Rhomboid minor STM performed to the treatment site after the TDN treatment * Akilah Dennis PTA - 05/27/2023 3:00 PM CDT Images from the original note were not included. Physical Therapy Visit/Daily Note 05/27/2023 Sandy Lopez 1965 No diagnosis found. ERON ACEVEDO Subjective: Pt states she is doing HEP. Pt is reporting continued difficulty with numbness in hand. Pain today is 2. Changes since last visit include Slight improvement. Objective: Objective Measurement/Observation: Noted tightness at B cervical area. Pt tolerates all exercises with good range and technique noted; no adverse effects. . Specific exercises and treatment interventions are outlined on exercise worksheet document. Treatment Performed on This Visit: Manual Therapy (body part and techniques): None. Therapeutic Procedure/Exercise: See Exercise Sheet. Modalities: Cervical Traction. HEP given: Reviewed HEP. Patient education: To do exercises as tolerated. Assessment: Patient tolerated today's treatment well with no adverse effects. Patient demonstrates decreased cervical ROM. which is contributing to difficulty with functional mobility and ADLs. Patient would benefit from additional skilled therapy services and demonstrates good prognosis to achieve stated goals. Goals Addressed This Visit: Progressing towards goals. Plan: Patient would benefit from the following modification on next visit: Continue to work on exercises and stretching . Therapy will continue to address these impairments in order to progress towards functional goals. Akilah Dennis PTA [facility] Services ATTENTION PHYSICIAN If you are [...] as of this encounter Visit Diagnoses Diagnosis Numbness and tingling of right upper extremity- Primary documented in this encounter Care Teams Monogram And Letter Paster Relationship Specialty Start Date End Date Eron Acevedo NP [address] [place] [address] PCP - General Pain Management 07/15/22 documented as of this encounter
--- OUTSIDE RECORDS SUMMARY | 2024-03-03 15:35 | XMS_ITS | Encounter Summary ---
Author Organization [facility] Healthcare Address [address] [place] [id number] Care Team Providers Care Core Dropper Name Role Phone Eron Holliday NP Primary Care Provider [phone] Marialuisa Daniel NP Unavailable [phone] Leobardo Bhagat MD Unavailable [phone] Florin Dixon MD Unavailable Reason for Visit * Auth/Cert Specialty Diagnoses / Procedures Referred By Claudette smith Referred To Contact Diagnoses Primary osteoarthritis of right knee Primary osteoarthritis of right knee [M17.11] Procedures MO ARTHRP KNE CONDYLE&PLATU MEDIAL&LAT COMPARTMENTS RIGHT TOTAL KNEE ARTHROPLASTY Referral ID Status Reason Start Date Expiration Date Visits Re quested Visits Authorized [id number] 1 1 Encounter Details Date Type Department Care Team (Late st Contact Info) Description 10/06/2023 7:27 AM CDT Anesthesia Event [facility] OR [address] [place] [id number] Olayinka Zayas MD [address] [place] [id number] Anesthesia Record Procedure Summary Procedure Name Responsible Anesthesiologist Anesthesia Start Time Anesthesia Stop Time RIGHT TOTAL KNEE ARTHROPLASTY (Right: Knee) Olayinka Zayas MD 10/06/23 0727 10/06/23 0932 Events Date Time Event Comment 10/06/2023 0640 0714 Block Placed R iPACK block 0721 Block Placed R adductor susan l block 0727 An Start 0727 An Start Data 0727 In Room 0731 An Induction The patient was reevaluated immediately before moderate or deep sedation use and before anesthesia induction. 0740 An LMA 0749 Anesthesia Ready 0757 Proc Start 0827 Quick Note Capsule restart ed several times before ventilator data transferred. 0920 Proc Fin 0920 An Extubation 0923 an stop data 09 Out of Room 0932 Handoff to RN I completed my handoff to the receiving nurse during which we: 1. Patient identified 2. Responsible provider identified 3. Pertinent medical history reviewed 4. Procedure type and surgical course discussed 5. Intraoperative anesthetic management and any significant issues discussed 6. Expectations and concerns for postop period discussed 7. Questions solicited from receiving nurse 8. Patient disposition at the time of handoff: No value filed. 0932 An Stop Meds Name Total fentaNYL 50 mcg/mL PF 100 mcg lidocaine (cardiac) syringe 2 % 100 mg propofol 150 mg rocuronium 40 mg ondansetron PF 4 mg dexamethasone 4 mg/mL 4 mg glycopyrrolate 200 mcg ceFAZolin (ANCEF) 2,000 mg/20 mL in ster ile water (premix) 2,000 mg 2,000 mg sugammadex 200 mg phenylephrine (SHIN-SYNEPHRIN E) 25,000 mcg in sodium chloride 0.9% 250 mL (100 mcg/mL) infusion 1.05 mg midazolam injection 2 mg/2 mL 2 mg ROPivacaine 0.5% PF 20 mL phenylephrine syringe 1 mg/10 ml 600 mcg atropine 0.1 mg/mL 0.2 mg D50W 25 g Lactated Ringer's (LR) infusion 1,700 mL * Agents Name O2% N2O O2 N2O Air Sevoflurane Inspired Sevoflurane * Blood No blood administrations on file. Lines, Drains, and Airways Type Details Placement Removal Pump Device 10/05/23; Yes; Left, Lower; Abdomen; Yes 10/05/23 0000 by Deborah Ortiz RN Wound 10/06/23; 0756; N; Incision; Knee; Anterior, Right; Right Total Knee Incision; Other (comment) (Surgical Site) 10/06/23 0756 by Carrie Daniel RN Peripheral IV Placement Date: 10/06/23; Placement Time: 0640; Catheter Size: 20 G; Orientation: Anterior, Right; Location: Forearm; Site Prep: Chlorhexidine; Inserted by: Elvira reis rn; Insertion Attempts: 2 (missed attempt left hand); Patient Tolerance: Tolerated well; Removal Date: 10/07/23; Removal Time: 1699; Removal Reason: Therapy completed 10/06/23 0640 by Elvira Reis RN 10/07/23 170 by Tania Merritt RN Supraglottic Airway Placement Date: 10/06/23; Placement Time: 805 (created via procedure documentation); Mask Ventilation: 1; Size: 4; Insertion Attempts: 1; Comments: Grade 2b with DL and glidescope. Glidescope attempt abandoned due to glidescope powering down x3 during attempt, despite power supply/plugged in. ; Removal Date: 10/06/23; Removal Time: 91910/06/23 08 by Cheyenne Bateman CRNA 10/06/23919 by Cheyenne Bateman CRNA documented in this encounter Social History Tobacco Use Types Packs/Day Years Used Date Smoking Tobacco: Former Cigarettes Q uit: 03/20/2020 Smokeless Tobacco: Never [facility] Utilities Answer Date Recorded In the past 12 months has [employer], gas, oil, or water [employer] threatened to shut off services in your [...] 10/07/2023 How often do you attend [employer] or hindu services? 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 Not on file Not on file Not on file documented as of this encounter OR Notes * Anesthesia Postprocedure Evaluation - Olayinka Zayas MD - 10/06/2023 10:04 AM CDT Patient: Sandy Lopez Procedure Summary Date: 10/06/23 Room / Location: [facility] / [facility] Anesthesia Start: 726 Anesthesia Stop: 931 Procedure: RIGHT TOTAL KNEE ARTHROPLASTY (Right: Knee) Diagnosis: Primary osteoarthritis of right knee (Primary osteoarthritis of right knee [M17.11]) Surgeons: Reig Khan DO Responsible Provider: Olayinka Zayas MD Anesthesia Type: general, regional for postop pain per surgeon request ASA Status: 3 Anesthesia Type: general, regional for postop pain per surgeon request Last vitals BP 136/63 (BP Location: Left arm, Patient Position: Lying) Pulse 70 Temp 36.6 ??C (97.9 ??F) (Temporal) Resp 18 SpO2 95% Anesthesia Post Evaluation Patient location during evaluation: PACU Patient participation: complete - patient participated Level of consciousness: fully awake Pain management: adequate Airway patency: adequate Cardiovascular status: acceptable Respiratory status: acceptable Hydration status: acceptable Pt is: normothermic No notable events documented. * Anesthesia Procedure Notes - Cheyenne Bateman CRNA - 10/06/2023 8:01 AM CDTAssociated Order(s): Airway Airway Patient location: OR Urgency: elective Indications for airway management: anesthesia Difficult airway: yes Factors contributing to ventilation difficulty: limited neck motion Maneuvers that helped intubation: cricoid pressure and stylette Factors contributing to intubation difficulty: limited neck motion and limited mandibular protusion Staff: Placed by: PIN SETTER: Cheyenne Bateman CRNA Emergent airway documentation: Risks and benefits discussed: yes Consent obtained: yes Consent given by: patient Airway prep: Preoxygenated: yes Patient position: sniffing MILS maintained throughout: yes Mask difficulty assessment: 1 - vent by mask Spontaneous ventilation during airway: absent Sedation level during airway: GA Final airway details: Final airway type: supraglottic airway Final supraglottic airway: classic ETT to teeth: 21 cm SGA size: 4 Number of attempts: 1 Ventilation between attempts: BVM Additional comments: Grade 2b with DL and glidescope. Glidescope attempt abandoned due to glidescope powering down x3 during attempt, despite power supply/plugged in. * Anesthesia Procedure Notes - Olayinka Zayas MD - 10/06/2023 7:27 AM CDT Associated Order(s): Peripheral Block Peripheral Block Patient location during procedure: pre-op holding End time: 10/06/2023 7:27 AM Reason for block: post-op pain management per surgeon request Ultrasound image in chart or stored: yes Laterality: right Block type: femoral nerve block (distal mid thigh ) Staff: Placed by: Anesthesiologist: Olayinka Zayas MD Procedure prep: Preprocedure checklist: patient identified, procedure contraindications assessed, site marked, procedure consent, surgical consent, IV checked, risks, benefits and alternatives discussed, monitors and equipment checked and timeout performed Patient position: supine Monitoring: ECG, oximetry, blood pressure and capnography Supplemental O2: nasal cannula Prep solution: chlorhexidine/alcohol PPE: provider hat/mask, sterile gloves, sterile drape, sterile gown and sterile probe cover and gel Peripheral nerve block: Technique: ultrasound guided Injection assessment: injection made incrementally with constant monitoring, local visualized surrounding nerve on ultrasound, negative aspiration for heme, no paresthesias noted and normal resistance to injection Assessment: Events: patient tolerated procedure well with no complications Additional comments: 20 mL of 0.25% ropivacaine used Adductor canal block (R) * Anesthesia Procedure Notes - Olayinka Zayas MD - 10/06/2023 7:26 AM CDT Associated Order(s): Peripheral Block Peripheral Block Patient location during procedure: pre-op holding End time: 10/06/2023 7:15 AM Reason for block: post-op pain management per surgeon request Ultrasound image in chart or stored: yes Laterality: right Block type: IPACK Staff: Placed by: Anesthesiologist: Olayinka Zayas MD Procedure prep: Preprocedure checklist: patient identified, procedure contraindications assessed, site marked, procedure consent, surgical consent, IV checked, risks, benefits and alternatives discussed, monitors and equipment checked and timeout performed Patient position: supine Monitoring: ECG, oximetry, blood pressure and capnography Supplemental O2: nasal cannula Prep solution: chlorhexidine/alcohol PPE: provider hat/mask, sterile gloves, sterile drape, sterile gown and sterile probe cover and gel Peripheral nerve block: Technique: ultrasound guided Injection assessment: injection made incrementally with constant monitoring, local visualized surrounding nerve on ultrasound, negative aspiration for heme, no paresthesias noted and normal resistance to injection Assessment: Events: patient tolerated procedure well with no complications Additional comments: 20 mL of 0.25% ropivacaine used * Anesthesia Preprocedure Evaluation - Olayinka Zayas MD - 09/22/2023 2:04 PM CDT Images from the original note were not included. Anesthesia Evaluation Sandy Lopez is a 58 y.o. female RIGHT TOTAL KNEE ARTHROPLASTY (Right: Knee) Pre-Op Diagnosis Codes: * Primary osteoarthritis of right knee [M17.11] HISTORY HPI Review of chart shows a medical history significant for ICA stenosis, hypertension, hyperlipidemia,GERD, arthritis, DM2, and obesity. Patient is scheduled for a right total knee per Dr. Khan on 10/06/23. Past Medical History Information obtained from: patient and chart. Information obtained during: In Person Neurological + ICA stenosis Cardiovascular + Hypertension + Hyperlipidemia Pertinent negatives: CAD and MO Respiratory Pertinent negatives: COPD; asthma and non-smoker (former) Hepatic / Heme Pertinent negatives: liver disease Gastrointestinal + GERD (moderately well controlled on Protonix. No issues lying flat.) - on daily therapy. Renal / + Renal disease - CKD Musculoskeletal/Pain + Osteoarthritis Endocrine / Other + Diabetes mellitus - Diabetes type 2. Diabetic complications: nephropathy. Outpatient insulin use:insulin pump. + Obesity (BMI >30) Functional Capacity Comments: Mets>4. Can climb 2 FOS wo CP/SOB. Review of Systems Unable to obtain ROS history. Pertinent negatives: productive cough; SOB; fever; chest pain and palpitations Patient Active Problem List Diagnosis Date Noted Low vitamin D level 09/18/2022 dexcom 6 continuous glucose monitoring device 07/15/2022 Hypertrophic cardiomyopathy (CMS/HCC) (HCC) 12/24/2021 Herpes zoster without complication 09/13/2021 Herniation of intervertebral disc between L5 and S1 07/20/2021 Radiculopathy, lumbosacral region 06/22/2021 Cervical radiculopathy 06/22/2021 Cervicalgia 06/22/2021 Chronic bilateral low back pain with bilateral sciatica 06/22/2021 Lumbar facet joint syndrome 06/22/2021 Osteoarthritis of right knee 12/14/2020 Type 2 diabetes mellitus with microalbuminuria, with long-term current use of insulin ([facility]) 08/19/2020 Hyperlipidemia associated with type 2 diabetes mellitus ([facility]) 08/19/2020 Omnipod Dash Insulin pump in place 11/19/2019 Contact with and (suspected) exposure to other communicable diseases 07/28/2019 Acquired trigger finger 04/21/2019 Osteoarthritis of left hand 04/21/2019 Herniation of intervertebral disc 01/26/2019 Systolic murmur 11/30/2018 Elevated liver enzymes 11/13/2018 Microalbuminuria 11/13/2018 Peripheral arterial occlusive disease ([facility]) ([facility]) 10/30/2018 Abnormal result of other cardiovascular function study 09/04/2018 Atherosclerosis of [place] arteries of extremities with intermittent claudication, bilateral legs ([facility]) 09/04/2018 Hypertension associated with type 2 diabetes mellitus ([facility]) 08/04/2018 Heart murmur 08/04/2018 Occlusion and stenosis of bilateral carotid arteries 08/04/2018 Obesity 08/04/2018 Candidiasis of skin 07/23/2018 Cigarette smoker 07/14/2018 Class 2 severe obesity due to excess calories with serious comorbidity and body mass index (BMI) of36.0 to 36.9 in adult ([facility]) 07/14/2018 Noncompliance with treatment 06/25/2017 High serum creatinine 06/25/2017 Bacterial vaginosis 05/12/2017 Allergic rhinitis 04/25/2017 Disorder of lipid metabolism 04/24/2017 Mixed anxiety and depressive disorder 03/14/2017 Gastroesophageal reflux disease 03/14/2017 Tear of meniscus of knee 03/14/2017 Nicotine dependence 03/14/2017 Type 2 diabetes mellitus with hyperglycemia, with long-term current use of insulin ([facility]) 03/13/2017 Carpal tunnel syndrome 03/13/2017 Past Medical History: Diagnosis Date Anxiety Arthritis Arthropathy of cervical facet joint DDD (degenerative disc disease), cervical Depression Diabetes ([facility]) Dizziness Foraminal stenosis of cervical region GERD (gastroesophageal reflux disease) H/O insulin dependent diabetes mellitus High blood pressure Hyperlipidemia Insulin pump in place omnipod dash Obesity PAD (peripheral artery disease) ([facility]) with stent placed on right side Second hand smoke exposure Stomach ulcer Type 1 diabetes mellitus ([facility]) 08/04/2018 Uncontrolled type 2 diabetes mellitus with hyperglycemia ([facility]) 03/14/2017 Uncontrolled type 2 diabetes mellitus with hyperglycemia, with long-term current use of insulin ([facility]) 04/03/2017 Uses self-applied continuous glucose monitoring device Wears partial dentures Past Surgical History: Procedure Laterality Date CARPAL TUNNEL RELEASE SECTION ELBOW SURGERY ESOPHAGOGASTRODUODENOSCOPY 2023 showed some erosion KNEE ARTHROSCOPY TONSILLECTOMY OB History No obstetric history on file. Allergies Allergen Reactions Codeine Vomiting Nsaids (Non-Steroidal Anti-Inflammatory Drug) Other (See comments) Kidney disease Ibuprofen Other (See comments) Med List Status: Nurse Complete Set By: Lashay Garduno RN at 09/22/2023 11:50 AM Status Comment 09/22/2023 11:45 AM Pt brought meds Taking? Last Dose Start Date End Date Provider alcohol swabs pads, medicated -- 01/15/23 -- Marialuisa Daniel NP Apply 1 each topically 4 (four) times a day before meals and nightly E11.65 aspirin 81 mg enteric coated tablet -- 12/04/18 -- Alex Castillo MD atorvastatin (LIPITOR) 80 mg tablet -- 04/10/23 -- Marialuisa Daniel NP TAKE 1 TABLET BY MOUTH DAILY Patient taking differently: Take 1 tablet (80 mg total) by mouth daily Notes: Authorized Quantity Exceeded blood sugar diagnostic (ONETOUCH ULTRA BLUE TEST STRIP MISC) -- -- -- Alex Castillo MD blood-glucose meter kit -- 07/04/17 -- Lorne Mcginnis MD Use daily or as directed for monitoring of diabetes Notes: Patient insurance will cover accu-check. blood-glucose sensor (Dexcom G7 Sensor) device -- -- -- Alex Castillo MD blood-glucose transmitter (Dexcom G6 Transmitter) device -- -- -- Alex Castillo MD busPIRone (BUSPAR) 5 mg tablet -- 12/17/21 -- Alex Castillo MD cholecalciferol 25 mcg (1,000 unit) tablet -- 10/18/22 -- Alex Castillo MD citalopram (CeleXA) 20 mg tablet -- 12/17/21 -- Alex Castillo MD clopidogreL (PLAVIX) 75 mg tablet -- -- -- Alex Castillo MD Dexcom G6 [place] misc -- 08/22/21 -- Marialuisa Daniel, TOUR BUS DRIVER/GUIDE USE TO TEST BLOOD SUGAR DIRECTED Notes: Prescription Dexcom G6 Transmitter device -- 05/28/22 -- Marialuisa Daniel, TOUR BUS DRIVER/GUIDE USE TO TEST BLOOD SUGAR TWICE A DAY Notes: Maximum Refills Reached Dexcom G7 Sensor device -- 12/13/22 -- Marialuisa Daniel, TOUR BUS DRIVER/GUIDE 1 Device continuously . Change every 10 days. E11.65 empagliflozin (Jardiance) 25 mg tablet -- 10/29/22 -- Marialuisa Daniel, TOUR BUS DRIVER/GUIDE Take 1 tablet (25 mg total) by mouth daily ergocalciferol, vitamin D2, 50 mcg (2,000 unit) capsule -- -- -- Alex Castillo MD estradioL (ESTRACE) 0.5 mg tablet -- 10/11/18 -- Alex Castillo MD ezetimibe (ZETIA) 10 mg tablet -- 05/24/21 -- Marialuisa Daniel TOUR BUS DRIVER/GUIDE TAKE 1 TABLET BY MOUTH DAILY Patient taking differently: Take 1 tablet (10 mg total) by mouth daily Notes: Maximum Refills Reached famotidine (PEPCID) 20 mg tablet -- 04/25/20 -- Alex Castillo MD fexofenadine (ADELA) 180 mg tablet -- 04/09/22 -- Alex Castillo MD insulin lispro (HumaLOG) 100 unit/mL vial for injection -- 09/18/23 -- Marialuisa Dnaiel, TOUR BUS DRIVER/GUIDE USE PER INSULIN PUMP MAX OF 150 UNITS DAILY NEEDED Patient taking differently: USE PER INSULIN PUMP MAX OF 150 UNITS DAILY NEEDED BASAL 0000-2.55, 0400-2.6 PER HOUR IC 6 ISF 20 AIT 3 HOURS TARGET GLUCOSE 110 CORRECT ABOVE 120 Notes: Maximum Refills Reached insulin lispro (HumaLOG) 200 unit/mL (3 mL) pen for injection -- 12/25/21 -- Marialuisa Daniel NP Inject 0.08 mL (16 Units total) under the skin 3 (three) times a day before meals When insulin pumpfails. pump has failed. insulin pump cart,cont inf,BT (Omnipod Dash Pods, Gen 4,) cartridge -- -- -- Alex Castillo MD insulin syringe-needle U-100 1 mL 31 gauge x 5/16 syringe -- 07/13/18 -- Alex Castillo MD losartan-hydroCHLOROthiazide (HYZAAR) 100-12.5 mg per tablet -- 04/09/22 -- Alex Castillo MD meclizine (ANTIVERT) 25 mg tablet -- 02/11/22 -- Alex Castillo MD metFORMIN (GLUCOPHAGE) 1,000 mg tablet -- 06/30/23 06/29/24 Marialuisa Daniel NP TAKE 1 TABLET BY MOUTH TWICE A DAY WITH FOOD Patient taking differently: Take 1 tablet (1,000 mg total) by mouth 2 (two) times a day with meals Notes: Authorized Quantity Exceeded nystatin cream -- 04/30/23 -- Alex Castillo MD Omnipod Dash Pods, Gen 4, cartridge -- 03/18/23 -- Marialuisa Daniel NP Inject 1 Device under the skin daily pantoprazole DR (PROTONIX) 40 mg EC tablet -- 05/30/23 -- Alex Castillo MD pen needle, diabetic (TRUEplus Pen Needle) 32 gauge x 5/32 needle -- -- -- Alex Castillo MD pen needle, diabetic 32 gauge x 5/32 needle -- 12/25/21 -- Marialuisa Daniel NP Use to inject insulin up to 4times/day. E11 propranoloL (INDERAL) 20 mg tablet -- -- -- Alex Castillo MD SUMAtriptan (IMITREX) 50 mg tablet -- -- -- Alex Castillo MD Tab-A-Emily 400 mcg tablet -- 08/27/23 -- Alex Castillo MD tirzepatide (MOUNJARO) 7.5 mg/0.5 mL pen injector -- 06/26/23 -- Marialuisa Daniel NP Inject 7.5 mg under the skin once a week E11.65 Patient taking differently: Inject 7.5 mg under the skin once a week Friday zolpidem (AMBIEN) 10 mg tablet -- -- -- Provider, MD Alex -- -- -- -- -- -- Notes: -- Current Outpatient Medications: aspirin 81 mg enteric coated tablet atorvastatin (LIPITOR) 80 mg tablet blood-glucose sensor (Dexcom G7 Sensor) device busPIRone (BUSPAR) 5 mg tablet cholecalciferol 25 mcg (1,000 unit) tablet citalopram (CeleXA) 20 mg tablet clopidogreL (PLAVIX) 75 mg tablet Dexcom G7 Sensor device empagliflozin (Jardiance) 25 mg tablet ergocalciferol, vitamin D2, 50 mcg (2,000 unit) capsule ezetimibe (ZETIA) 10 mg tablet famotidine (PEPCID) 20 mg tablet fexofenadine (ADELA) 180 mg tablet insulin lispro (HumaLOG) 100 unit/mL vial for injection losartan-hydroCHLOROthiazide (HYZAAR) 100-12.5 mg per tablet meclizine (ANTIVERT) 25 mg tablet metFORMIN (GLUCOPHAGE) 1,000 mg tablet Omnipod Dash Pods, Gen 4, cartridge pantoprazole DR (PROTONIX) 40 mg EC tablet propranoloL (INDERAL) 20 mg tablet SUMAtriptan (IMITREX) 50 mg tablet Tab-A-Emily 400 mcg tablet tirzepatide (MOUNJARO) 7.5 mg/0.5 mL pen injector zolpidem (AMBIEN) 10 mg tablet alcohol swabs pads, medicated blood sugar diagnostic (ONETOUCH ULTRA BLUE TEST STRIP [facility]) blood-glucose meter kit blood-glucose transmitter (Dexcom G6 Transmitter) device Dexcom G6 [facility] [facility] Dexcom G6 Transmitter device estradioL (ESTRACE) 0.5 mg tablet insulin lispro (HumaLOG) 200 unit/mL (3 mL) pen for injection insulin pump cart,cont inf,BT (Omnipod Dash Pods, Gen 4,) cartridge insulin syringe-needle U-100 1 mL 31 gauge x 5/16 syringe nystatin cream pen needle, diabetic (TRUEplus Pen Needle) 32 gauge x 5/32 needle pen needle, diabetic 32 gauge x 5/32 needle Social History Tobacco Use Smoking Status Former Current packs/day: 0.00 Types: Cigarettes Quit date: 03/20/2020 Years since quittin.5 Smokeless Tobacco Never Alcohol Use: Not At Risk (09/22/2023) AUDIT-C Frequency of Alcohol Consumption: Never Average Number of Drinks: Patient does not drink Frequency of Binge Drinking: Never Substance and Sexual Activity Drug Use Never Family History Problem Relation Age of Onset Heart disease Mother Hypertension Mother Diabetes Father PAT Physical Exam Additional comments: Patient's labs, EKG, and all other testing was evaluated. Medication and medical history also evaluated per chart review. After review of chart there is no concerns at this time for patient regarding being placed under anesthesia. Vitals: 09/22/23 1056 BP: 116/82 Pulse: 74 Resp: 16 Temp: 36.2 ??C (97.1 ??F) SpO2: 98% PT: 09/22/2023: 12.3 sec INR: 09/22/2023: 0.9 APTT: No results found for requested labs within last 30 days. Hgb A1C: 09/22/2023: 7.4 % (H) CBC RBC: 09/22/2023: 4.79 M/cumm RDW: No results found for requested labs within last 30 days. MCHC: 09/22/2023: 31.3 g/dL (L) MCH: 09/22/2023: 27.1 pg MCV: 09/22/2023: 86.8 fL Hct: 09/22/2023: 41.6 % Hgb: 09/22/2023: 13.0 g/dL WBC: 09/22/2023: 8.4 K/cumm MPV: 09/22/2023: 10.5 fL Platelets: 09/22/2023: 282 K/cumm RDW CV: 09/22/2023: 14.8 % RDW Sd: 09/22/2023: 47.0 fL BMP Glucose: 09/22/2023: 153 mg/dL Calcium: 09/22/2023: 10.3 mg/dL Sodium: 09/22/2023: 138 mmol/L Potassium: 09/22/2023: 4.3 mmol/L CO2: 09/22/2023: 21 mmol/L (L) Chloride: 09/22/2023: 101 mmol/L BUN: 09/22/2023: 22 mg/dL Creatinine: 09/22/2023: 1.04 mg/dL DOS Physical Exam Medical history, medications, and allergies reviewed. Attestation: This PAT evaluation 10/06/2023. Airway Exam: Mallampati: III Cervical ROM: FROM TM distance: normal Cardiovascular Exam: Rate: regular Rhythm: regular Pulmonary Exam: LCTA, bilat EENT Exam: trachea midline Dental Exam: Missing (Lower partials. Missing several teeth both upper and lower.) Skin Exam: Skin is warm. Abdominal Exam: Abdomen is soft. Current state: Patient's current state is cooperative. Anesthesia Plan ASA 3 My patient is approved for the Anesthesia Controlled Medication protocol when under care of a PIN SETTER Planned anesthesia: General and regional for postop pain per surgeon request Induction: Induction: intravenous. Postoperative Plan: Postoperative administration opioids intended. Informed Consent: Discussed plan with PIN SETTER. Anesthesia plan and risks discussed with patient. Plan and Consent Comments: Has continuous basal glargine insulin. Has reduced to 50% output at this time. Appropriately NPO. No known personal h/o or FMH of MH/anes complications. Allergies reviewed. No recent CP/SOB/productive cough/fever. Consent and Attending signature: I and/or my designee have discussed the anesthesia plan, benefits, possible alternatives, parental presence at time of induction (if indicated), and clinically relevant risks that may include dental injury, unintentional awareness, and/or other complications. The patient and/or parent/legal guardian understand, and agree to proceed. All questions answered. documented in this encounter Plan of Treatment Not on file documented as of this encounter Procedures Procedure Name Priority Date/Time Associated Diagnosis Comments MO AN PROCEDURE PLACEHOLDER Routine 10/06/2023 8:01 AM CDT MO AN ELECTIVE SUPRAGLOTTIC AIRWAY Routine 10/06/2023 8:01 AM CDT MO AN PROCEDURE PLACEHOLDER Routine 10/06/2023 7:27 AM CDT MO AN PROCEDURE PLACEHOLDER Routine 10/06/2023 7:26 AM CDT documented in this encounter Results * MO AN ELECTIVE SUPRAGLOTTIC AIRWAY, MO AN PROCEDURE PLACEHOLDER (10/06/2023 8:01 AM CDT) Narrative Cheyenne Bateman CRNA - 10/06/2023 8:01 AM CDT Cheyenne Bateman CRNA ? 10/06/2023 ??8:06 AM Airway Patient location: OR Urgency: elective Indications for airway management: anesthesia Difficult airway: yes Factors contributing to ventilation difficulty: limited neck motion Maneuvers that helped intubation: cricoid pressure and stylette Factors contributing to intubation difficulty: limited neck motion and limited mandibular protusion Staff: Placed by: PIN SETTER: Cheyenne Bateman CRNA Emergent airway documentation: Risks and benefits discussed: yes Consent obtained: yes Consent given by: patient Airway prep: Preoxygenated: yes Patient position: sniffing MILS maintained throughout: yes Mask difficulty assessment: 1 - vent by mask Spontaneous ventilation during airway: absent Sedation level during airway: GA Final airway details: Final airway type: supraglottic airway Final supraglottic airway: classic ETT to teeth: 21 cm SGA size: 4 Number of attempts: 1 Ventilation between attempts: BVM Additional comments: Grade 2b with DL and glidescope. Glidescope attempt abandoned due to glidescope powering down x3 during attempt, despite power supply/plugged in. us Olayinka Zayas MD ANESTHESIA ORDERABLES Final Resu lt * MO AN PROCEDURE PLACEHOLDER (10/06/2023 7:27 AM CDT) Narrative Olayinka Zayas MD - 10/06/2023 7:27 AM CDT Olayinka Zayas MD ? 10/06/2023 ??7:27 AM Peripheral Block Patient location during procedure: pre-op holding End time: 10/06/2023 7:27 AM Reason for block: post-op pain management per surgeon request Ultrasound image in chart or stored: yes Laterality: right Block type: femoral nerve block (distal mid thigh ) Staff: Placed by: Anesthesiologist: Olayinka Zayas MD Procedure prep: Preprocedure checklist: patient identified, procedure contraindications assessed, site marked, procedure consent, surgical consent, IV checked, risks, benefits and alternatives discussed, monitors and equipment checked and timeout performed Patient position: supine Monitoring: ECG, oximetry, blood pressure and capnography Supplemental O2: nasal cannula Prep solution: chlorhexidine/alcohol PPE: provider hat/mask, sterile gloves, sterile drape, sterile gown and sterile probe cover and gel Peripheral nerve block: Technique: ultrasound guided Injection assessment: injection made incrementally with constant monitoring, local visualized surrounding nerve on ultrasound, negative aspiration for heme, no paresthesias noted and normal resistance to injection Assessment: Events: patient tolerated procedure well with no complications Additional comments: 20 mL of 0.25% ropivacaine used Adductor canal block (R) us Olayinka Zayas MD ANESTHESIA ORDERABLES Final Resu lt * MO AN PROCEDURE PLACEHOLDER (10/06/2023 7:26 AM CDT) Narrative Olayinka Zayas MD - 10/06/2023 7:26 AM CDT Olayinka Zayas MD ? 10/06/2023 ??7:26 AM Peripheral Block Patient location during procedure: pre-op holding End time: 10/06/2023 7:15 AM Reason for block: post-op pain management per surgeon request Ultrasound image in chart or stored: yes Laterality: right Block type: IPACK Staff: Placed by: Anesthesiologist: Olayinka Zayas MD Procedure prep: Preprocedure checklist: patient identified, procedure contraindications assessed, site marked, procedure consent, surgical consent, IV checked, risks, benefits and alternatives discussed, monitors and equipment checked and timeout performed Patient position: supine Monitoring: ECG, oximetry, blood pressure and capnography Supplemental O2: nasal cannula Prep solution: chlorhexidine/alcohol PPE: provider hat/mask, sterile gloves, sterile drape, sterile gown and sterile probe cover and gel Peripheral nerve block: Technique: ultrasound guided Injection assessment: injection made incrementally with constant monitoring, local visualized surrounding nerve on ultrasound, negative aspiration for heme, no paresthesias noted and normal resistance to injection Assessment: Events: patient tolerated procedure well with no complications Additional comments: 20 mL of 0.25% ropivacaine used us Olayinka Zayas MD ANESTHESIA ORDERABLES Final Resu lt documented in this encounter Visit Diagnoses Not on filedocumented in this encounter Administered Medications Inactive Administered Medications - up to 3 most recent administrations Medication Order MAR Action Action Date Dose Rate Site atropine injection intravenous, Administer over 1 Minutes, As needed, Starting on Fri10/06/23 at 0758, Anesthesia Intra-op Given 10/06/2023 7:58 AM CDT 0.2 mg ceFAZolin (ANCEF) 2,000 mg/20 mL in sterile water (premix) 2,000 mg 2,000 mg, intravenous, at 400 mL/hr, Administer over 3 Minutes, Once, On Fri10/06/23 at 0600, For 1 dose, Pre-Op, Administer within 60 minutes of incision., Indications: Prophylaxis, SurgicalIndications:Prophylaxis, Surgical Given 10/06/2023 7:51 AM CDT 2,000 mg dexAMETHasone (DECADRON) 4 mg/mL injection intravenous, Administer over 2 Minutes, As needed, Starting on Fri10/06/23 at 0752, Anesthesia Intra-op Given 10/06/2023 7:52 AM CDT 4 mg dextrose (concentrated solution) 50 % CONCENTRATED solution intravenous, Administer over 5 Minutes, As needed, Starting on Fri10/06/23 at 0907, Anesthesia Intra-op Given 10/06/2023 9:19 AM CDT 12.5 g Given 10/06/2023 9:14 AM CDT 5 g Given 10/06/2023 9:10 AM CDT 2.5 g fentaNYL (SUBLIMAZE) preservative free injection intravenous, As needed, Starting on Fri10/06/23 at 0702, Anesthesia Intra-op Given 10/06/2023 7:02 AM CDT 100 mcg glycopyrrolate (ROBINUL) injection intravenous, Administer over 1 Minutes, As needed, Starting on Fri10/06/23 at 0754, Anesthesia Intra-op Given 10/06/2023 7:54 AM CDT 200 mcg Lactated Ringer's (LR) infusion 30 mL/hr, intravenous, Continuous, Starting on Fri10/06/23 at 0600, Pre-Op Rate/Dose Verify 10/06/2023 7:27 AM CDT 30 mL/hr New Bag 10/06/2023 6:43 AM CDT 30 mL/hr 30 mL/hr lidocaine (cardiac) (XYLOCAINE) preservative free injection intravenous, As needed, Starting on Fri10/06/23 at 0731, Anesthesia Intra-op, Indications: Ventricular ArrhythmiasIndications:Ventricular Arrhythmias Given 10/06/2023 7:31 AM CDT 100 mg midazolam (VERSED) 1 mg/mL injection intravenous, As needed, Starting on Fri10/06/23 at 0702, Anesthesia Intra-op Given 10/06/2023 7:02 AM CDT 2 mg ondansetron (ZOFRAN) injection intravenous, Administer over 2 Minutes, As needed, Starting on Fri10/06/23 at 0910, Anesthesia Intra-op Given 10/06/2023 9:10 AM CDT 4 mg phenylephrine (SHIN-SYNEPHRINE) 1 mg/10 mL (100 mcg/mL) in sodium chloride 0.9% (premix) intravenous, As needed, Starting on Fri10/06/23 at 0758, Anesthesia Intra-op Given 10/06/2023 9:13 AM CDT 100 mcg Given 10/06/2023 8:55 AM CDT 100 mcg Given 10/06/2023 8:21 AM CDT 100 mcg phenylephrine (SHIN-SYNEPHRINE) 25,000 mcg in sodium chloride 0.9% 250 mL (100 mcg/mL) infusion intravenous, Continuous PRN, Starting on Fri10/06/23 at 0825, Anesthesia Intra-op New Bag 10/06/2023 8:25 AM CDT 0.2 mcg/kg/min 11.28 mL/hr propofoL (DIPRIVAN) 10 mg/mL IV intravenous, As needed, Starting on Fri10/06/23 at 0731, Anesthesia Intra-op Given 10/06/2023 7:31 AM CDT 150 mg rocuronium (ZEMURON) injection intravenous, As needed, Starting on Fri10/06/23 at 0731, Anesthesia Intra-op Given 10/06/2023 7:31 AM CDT 40 mg ROPivacaine (NAROPIN) 5 mg/mL (0.5 %) preservative free injection perineural, As needed, Starting on Fri10/06/23 at 0714, Anesthesia Intra-op Given 10/06/2023 7:21 AM CDT 10 mL Given 10/06/2023 7:14 AM CDT 10 mL sugammadex (BRIDION) 100 mg/mL intravenous solution intravenous, As needed, Starting on Fri10/06/23 at 0752, Anesthesia Intra-op Given 10/06/2023 7:52 AM CDT 200 mg documented in this encounter Care Teams Core Dropper Relationship Specialty Start Date End Date Eron Holliday [employer] DRIVER/GUIDE [address] [facility] [place] [address] PCP - General Pain Management 07/15/22 Marialuisa Daniel NP [address] [facility] [place], [place] [id number] Nurse Practitioner Endocrinology Diabetes & Metabolism 09/22/23 Leobardo Bhagat MD [address] [place] [address] [address] Consulting Physician Nephrology 09/22/23 [place] [id number] [address] Consulting Physician Cardiovascular Disease 09/22/23 documented as of this encounter
--- OUTSIDE RECORDS SUMMARY | 2024-03-03 15:35 | XMS_ITS | Encounter Summary ---
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 foraminal impingement. Mild right glenohumeral and moderate acromioclavicular jointosteoarthritis. Right infraspinatus calcific tendinitis. THIS IS AN ELECTRONICALLY VERIFIED FINAL REPORT 04/16/2023 7:51 PM - Electronically signed by Lamont Hidalgo M.D. T: Report ID: [id number] Reading Location: [place] [address] Lamar Slater CONTRACT POST OFFICE CLERK IMG XR PROCEDURES Final Res ult documented in this encounter Visit Diagnoses Diagnosis Chronic neck pain Cervicalgia Arthropathy of cervical facet joint DDD (degenerative disc disease), cervical, mild C4-C5, moderate C5-C7 Degeneration of cervical intervertebral disc Foraminal stenosis of cervical region Anterolisthesis of cervical spine, mild C4 on C5 Numbness and tingling of right upper extremity Primary osteoarthritis, right shoulder Tendonitis of right infraspinatus tendon Right shoulder pain, unspecified chronicity Neck pain Cervicalgia Right shoulder pain, unspecified chronicity documented in this encounter Discontinued Medications Medication Sig Discontinue Reason Start Date End Da te cyclobenzaprine (FLEXERIL) 10 mg tablet Therapy completed 10/18/20222023 insulin glargine (LANTUS) 100 unit/mL (3 mL) pen for injection Inject 50 Units under the skin daily before dinner Use lantus 50 units once daily in pm for insulin pump failure. e11.65 pump has failed Formulary change 02/21/2023 04/16/2023 predniSONE (DELTASONE) 20 mg tablet Therapy completed 04/16/2023 documented as of this encounter Care Teams Biztalk Architect Relationship Specialty Start Date End Date Eron Holliday NP [address] [place] [address] PCP - General Pain Management 07/15/22 documented as of this encounter
--- OUTSIDE RECORDS SUMMARY | 2024-03-03 15:35 | XMS_ITS | Encounter Summary ---
Author Organization [facility] Healthcare Address [address] [place] [address] Care Team Providers Care And Rescue Fire Fighter Crash Fire Name Role Phone Eron Holliday NP Primary Care Provider [phone] Reason for Visit * Neurology (Routine) - Closed Specialty Diagnoses / Procedures Referred By Claudette smith Referred To Contact Diagnoses Numbness and tingling of right upper extremity Procedures EMG/NCV - Lamar Slater AUTOMOTIVE GLASS TECHNICIAN [address] [place] [address] Phone: tel: fax: [address] [address] Referral ID Status Reason Start Date Expiration Date Visits Re quested Visits Authorized [id number] Closed 04/16/2023 05/15/2024 1 1 Encounter Details Date Type Department Care Team (Late st Contact Info) Description 05/12/2023 10:30 AM CDT Therapy [facility] OP Physical Therapy [address] [place] [address] Numbness and tingling of right upper extremity Social History Tobacco Use Types Packs/Day Years Used Date Smoking Tobacco: Former Cigarettes Q uit: 03/20/2020 Smokeless Tobacco: Never Personal Safety Answer Date Recorded Getting School Help Needed Not on file 02/13 Comments No Sex and Gender Information Value Date Recorded Sex Assigned at Not on file Legal Sex Female 8:53 AM JAVASCRIPT APPLICATION DEVELOPER Gender Identity Female 12/26/2023 10:11 PM CDT Sexual Orientation Straight 12/26/2023 10 :11 PM CDT Occupation Industry Job Start Date Job End Date [employer] Not on file Not on file Not on file documented as of this encounter Progress Notes * Logan Copeland MD - 05/12/2023 10:30 AM CDT Scanned reports and notes from EMG/NCV test can be found in the Media section of the patient's chart. documented in this encounter Plan of Treatment Not on file documented as of this encounter Visit Diagnoses Diagnosis Numbness and tingling of right upper extremity documented in this encounter Orders Imaging Orders Without Results Count Last Order ed Date First Ordered Date EMG/NCV 1 05/12/2023 documented in this encounter Care Teams And Rescue Fire Fighter Crash Fire Relationship Specialty Start Date End Date Eron Holliday NP [address] [facility] [place] [address] PCP - General Pain Management 07/15/22 documented as of this encounter
--- OUTSIDE RECORDS SUMMARY | 2024-03-03 15:35 | XMS_ITS | Encounter Summary ---
Author Organization [facility] Healthcare Address [address] [place] [address] Care Team Providers Care Sanding Machine Operator Name Role Phone Eron Holliday NP Primary Care Provider [phone]- [phone] Marialiusa Daniel NP Unavailable [phone] Leobardo Bhagat MD Unavailable [phone] Florin Dixon MD Unavailable Encounter Details Date Type Department Care Team (Late st Contact Info) Description 09/18/2023 Orders Only [facility] PreAdmission Testing [address] [place] [address] Mary Beth Stoll, SARA Social History Tobacco Use Types Packs/Day Years Used Date Smoking Tobacco: Former Cigarettes Q uit: 03/20/2020 Smokeless Tobacco: Never AUDIT-C Answer Date Recorded Q1: How often do you have a drink containing alcohol? Never 09/22/2023 Q2: How many drinks containi ng alcohol do you have on a typical day when you are drinking? Patient does not drink Q3: How often do you have si x or more drinks on one occasion? Never 09/22/2023 Personal Safety Answer Date Recorded Have you ever been in or are you currently in a harmful physical or emotional relationship or is someone making you feel afraid or unsafe? 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 Not on file Not on file Not on file documented as of this encounter Plan of Treatment Not on file documented as of this encounter Visit Diagnoses Not on filedocumented in this encounter Care Teams Sanding Machine Operator Relationship Specialty Start Date End Date Eron Holliday NP [address] [place] [address] PCP - General Pain Management 07/15/22 Marialuisa Daniel NP [address] [place] [address] Nurse Practitioner Endocrinology Diabetes & Metabolism 09/22/23 Leobardo Bhagat MD [address] [place] [address] Consulting Physician Nephrology 09/22/23 [place] [address] [address] Consulting Physician Cardiovascular Disease 09/22/23 documented as of this encounter
--- OUTSIDE RECORDS SUMMARY | 2024-03-03 15:35 | XMS_ITS | Encounter Summary ---
Author Organization [facility] Healthcare Address [address] [place] [address] Care Team Providers Care Inspecting Machine Adjuster Name Role Phone Eron Holliday NP Primary Care Provider [phone] Encounter Details Date Type Department Care Team (Late st Contact Info) Description 08/25/2023 Orders Only [facility] Medical Group Orthopedics and Sports Medicine [address] [place] [phone] Regi Khan DO [address] [place] [address] Aftercare following right knee joint replacement surgery (Primary Dx) Social History Tobacco Use Types Packs/Day Years Used Date Smoking Tobacco: Former Cigarettes Q uit: 03/20/2020 Smokeless Tobacco: Never Personal Safety Answer Date Recorded Getting School Help Needed Not on file 02/13 Comments No Sex and Gender Information Value Date Recorded Sex Assigned at Not on file Legal Sex Female 8:53 AM CORRECTIONAL TREATMENT SPECIALIST Gender Identity Female 12/26/2023 10:11 PM CDT Sexual Orientation Straight 12/26/2023 10 :11 PM CDT 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
--- OUTSIDE RECORDS SUMMARY | 2024-03-03 15:35 | XMS_ITS | Encounter Summary ---
Author Organization [facility] Healthcare Address [address] [place] [address] Care Team Providers Care Earring Maker Name Role Phone Eron Holliday NP Primary Care Provider [phone]- [phone] Encounter Details Date Type Department Care Team (Late st Contact Info) Description 04/28/2023 12:30 PM SUPERVISOR TITLE Lab [address] [address] Social History Tobacco Use Types Packs/Day Years Used Date Smoking Tobacco: Former Cigarettes Q uit: 03/20/2020 Smokeless Tobacco: Never Personal Safety Answer Date Recorded Getting School Help Needed Not on file 02/13 Comments No Sex and Gender Information Value Date Recorded Sex Assigned at Not on file Legal Sex Female 8:53 AM SUPERVISOR TITLE Gender Identity Female 12/26/2023 10:11 PM CDT Sexual Orientation Straight 12/26/2023 10 :11 PM CDT Occupation Industry Job Start Date Job End Date [employer] Not on file Not on file Not on file documented as of this encounter Plan of Treatment Not on file documented as of this encounter Procedures Procedure Name Priority Date/Time Associated Diagnosis Comments EGFR Routine 04/28/2023 12:34 PM SUPERVISOR TITLE DIFFERENTIAL AUTO Routine 04/28/2023 12: 34 PM SUPERVISOR TITLE CBC WITH AUTO DIFFERENTIAL Routine 04/28/2023 12:34 PM SUPERVISOR TITLE HEMOGLOBIN A1C Routine 04/28/2023 12:34 PM SUPERVISOR TITLE RENAL FUNCTION PANEL Routine 04/28/2023 12:34 PM SUPERVISOR TITLE PROTEIN / CREATININE RATIO, URINE, RANDOM Routine 04/28/2023 12:24 PM SUPERVISOR TITLE documented in this encounter Results * eGFR (04/28/2023 12:34 PM SUPERVISOR TITLE) eGFR 63 mL/min/1. 73 m2 [facility] ([place]) Comment: Interpretive Data Reference Interval Normal ?>/= [...] interpretive data was last reviewed 2020. Blood 04/28/2023 12:3 4 PM SUPERVISOR TITLE 04/28/2023 1:08 PM SUPERVISOR TITLE us Leobardo Bhagat MD LAB BLOOD ORDERABLES Final Re sult [facility] ([place]) 1 [facility] [place] [address] * Differential, auto (04/28/2023 12:34 PM SUPERVISOR TITLE) Neutrophil abs 3.9 1.5 - 6.5 K/cumm [facility] ([place]) Imm gran abs 0.0 0.0 - 0.1 K/cumm [facility] ([place]) Lymphocyte abs 2.6 0.8 - 3.3 K/cumm [facility] ([place]) Monocyte abs 0.5 0.2 - 0.8 K/cumm [facility] ([place]) Eosinophil abs 0.2 0.0 - 0.5 K/cumm [facility] ([place]) Basophil abs 0.1 0.0 - 0.1 K/cumm [facility] ([place]) Neutrophil pct 53.8 % [facility] ([place]) Comment: Interpretive Data Percent cell count reference ranges are not reported, since discordance with absolute values may lead to misinterpretation of CBC data. Current Interpretive Data was last revised on 2017. Imm gran pct 0.3 % [facility] ([place]) Comment: Interpretive Data Percent cell count reference ranges are not reported, since discordance with absolute values may lead to misinterpretation of CBC data. Current Interpretive Data was last revised on 2017. Lymphocyte pct 36.0 % [facility] ([place]) Comment: Interpretive Data Percent cell count reference ranges are not reported, since discordance with absolute values may lead to misinterpretation of CBC data. Current Interpretive Data was last revised on 2017. Monocyte pct 6.6 % [facility] ([place]) Comment: Interpretive Data Percent cell count reference ranges are not reported, since discordance with absolute values may lead to misinterpretation of CBC data. Current Interpretive Data was last revised on 2017. Eosinophil pct 2.3 % [facility] ([place]) Comment: Interpretive Data Percent cell count reference ranges are not reported, since discordance with absolute values may lead to misinterpretation of CBC data. Current Interpretive Data was last revised on 2017. Basophil pct 1.0 % [facility] ([place]) Comment: Interpretive Data Percent cell count reference ranges are not reported, since discordance with absolute values may lead to misinterpretation of CBC data. Current Interpretive Data was last revised on 2017. Blood 04/28/2023 12:3 4 PM SUPERVISOR TITLE 04/28/2023 1:08 PM SUPERVISOR TITLE Leobardo Bhagat MD LAB BLOOD ORDERABLES Final Re sult Performing Organization Address City/[facility] Co de Phone Number [facility] ([place]) 1 [facility] [place] [address] * (ABNORMAL) Hemoglobin A1c (04/28/2023 12:34 PM SUPERVISOR TITLE) Hgb A1C 7.4(H) 4.0 - 5.6 % [facility] ([place]) Estimated Average Glucose 166 mg/dL [facility] ([place]) Comment: The ADA recommends reporting an estimated Average Glucose (eAG) with all Hemoglobin A1c results using the equation derived from a study of 507 normal and diabetic adults. ??Minority populations were underrepresented and children were not included. ?? (Diabetes Care 31:7040-6731, 2008). ??The eAG is not equivalent to a fasting glucose. Blood 04/28/2023 12:3 4 PM SUPERVISOR TITLE 04/28/2023 1:08 PM SUPERVISOR TITLE Leobardo Bhagat MD LAB BLOOD ORDERABLES Final Re sult Performing Organization Address City/[facility] Co de Phone Number [facility] ([place]) 1 [facility] [place] [address] * (ABNORMAL) Renal function panel (04/28/2023 12:34 PM SUPERVISOR TITLE) Sodium 139 135 - 145 mmol/L [facility] ([place]) Potassium, pl 4.1 3.3 - 4.9 mmol/L [facility] ([place]) Chloride 101 97 - 110 mmol/L [facility] ([place]) CO2 22 22 - 32 mmol/L [facility] ([place]) Anion gap 16(H) 2 - 15 mmol/L [facility] ([place]) BUN 21 6 - 25 mg/dL [facility] ([place]) Creatinine 1.05 0.60 - 1.10 mg/dL [facility] ([place]) Glucose 149 70 - 199 mg/dL [facility] ([place]) Comment: Interpretive Data Fasting glucose >/= 126 [...] interpretive data was last revised 2022. Calcium 9.6 8.5 - 10.3 mg/dL [facility] ([place]) Phosphorus, pl 3.5 2.3 - 4.5 mg/dL [facility] ([place]) Albumin 4.4 3.5 - 5.0 g/dL [facility] ([place]) Blood 04/28/2023 12:3 4 PM SUPERVISOR TITLE 04/28/2023 1:08 PM SUPERVISOR TITLE us Leobardo Bhagat MD LAB BLOOD ORDERABLES Final Re sult [facility] 1 [facility] Department [place] [address] * (ABNORMAL) CBC with auto differential (04/28/2023 12:34 PM SUPERVISOR TITLE) WBC 7.3 3.8 - 9.9 K/cumm [facility] ([place]) Hgb 12.8 11.9 - 15.5 g/dL [facility] ([place]) Hct 40.5 35.6 - 45.5 % [facility] ([place]) Plt 300 150 - 400 K/cumm [facility] ([place]) MPV 10.3 9.1 - 12.3 fL [facility] ([place]) RBC 4.51 3.90 - 5.20 M/cumm [facility] ([place]) MCV 89.8 81.3 - 96.4 fL [facility] ([place]) MCH 28.4 27.1 - 33.3 pg [facility] ([place]) MCHC 31.6(L) 32.3 - 35.7 g/dL [facility] ([place]) RDW CV 13.5 11.1 - 14.9 % [facility] ([place]) RDW SD 44.7 35.7 - 48.1 fL [facility] ([place]) NRBC abs 0.00 0.00 - 0.01 K/cumm [facility] ([place]) Blood 04/28/2023 12:3 4 PM SUPERVISOR TITLE 04/28/2023 1:08 PM SUPERVISOR TITLE Leobardo Bhagat MD LAB BLOOD ORDERABLES Final Re sult Performing Organization Address [facility] Co de Phone Number [facility] ([place]) 1 [facility] [place] [address] * (ABNORMAL) Protein / creatinine ratio, urine, random (04/28/2023 12:24 PM SUPERVISOR TITLE) Protein, ur, quant 66.0 mg/dL [facility] ([place]) Comment: Interpretive Data No reference range established. Current interpretive data was last revised 2018. Creatinine Ur 42.8 mg/dL [facility] ([place]) Comment: Interpretive Data No reference range established. Current interpretive data was last revised 2018. Protein/creatinin e ratio 1,542.1(H ) 0.0 - 180.0 mg/g CR [facility] ([place]) Urine 04/28/2023 12:2 4 PM SUPERVISOR TITLE 04/28/2023 2:12 PM SUPERVISOR TITLE Leobardo Bhagat MD LAB URINE ORDERABLES Final Re sult Performing Organization Address City/[facility]/ZIP Co de Phone Number [facility] ([place]) 1 [facility] [place] [address] documented in this encounter Visit Diagnoses Not on filedocumented in this encounter Care Teams Earring Maker Relationship Specialty Start Date End Date Holliday, Eron J., ELECTRONICS RECYCLER [address] [place] [address] PCP - General Pain Management 07/15/22 documented as of this encounter
--- OUTSIDE RECORDS SUMMARY | 2024-03-03 15:35 | XMS_ITS | Encounter Summary ---
Author Organization [facility] Healthcare Address [address] [place] [address] Care Team Providers Care Sap Bw Bi Developer Name Role Phone Eron Holliday NP Primary Care Provider +1- [phone] Reason for Visit * Reason Comments Diabetes Type 2 Encounter Details Date Type Department Care Team (Late st Contact Info) Description 01/27/2023 10:30 AM TERMITE EXTERMINATOR HELPER Office Visit [facility] [address] [place] [address] Marialuisa Daniel, CHRISTOPHER [address] [address] Type 2 diabetes mellitus with hyperglycemia, with long-term current use of insulin (CMS/HCC) (HCC) (Primary Dx); Hyperlipidemia associated with type 2 diabetes mellitus ([facility]); Hypertension associated with type 2 diabetes mellitus ([facility]); dexcom 6 continuous glucose monitoring device; Omnipod Dash Insulin pump in place Social History Tobacco Use Types Packs/Day Years Used Date Smoking Tobacco: Former Cigarettes Q uit: 03/20/2020 Smokeless Tobacco: Never Tobacco Cessation:Counseling Given: Not Answered Personal Safety Answer Date Recorded Getting School Help Needed Not on file 02/13 Comments No Sex and Gender Information Value Date Recorded Sex Assigned at Not on file Legal Sex Female 8:53 AM TERMITE EXTERMINATOR HELPER Gender Identity Female 12/26/2023 10:11 PM CDT Sexual Orientation Straight 12/26/2023 10 :11 PM CDT documented as of this encounter Last Filed Vital Signs Vital Sign Reading Time Taken Comments Blood Pressure 132/78 01/27/2023 10:35 AM TERMITE EXTERMINATOR HELPER Pulse - - Temperature - - Respiratory Rate - - Oxygen Saturation - - Inhaled Oxygen Concentration - - Weight 100 kg (220 lb 6.4 oz) 01/27/2023 10:35 A M TERMITE EXTERMINATOR HELPER Height 165.1 cm (5' 5 ) 01/27/2023 10:35 AM TERMITE EXTERMINATOR HELPER Body Mass Index 36.68 01/27/2023 10:35 AM TERMITE EXTERMINATOR HELPER documented in this encounter Progress Notes * Marialuisa Daniel, BAR CAPTAIN - 01/27/2023 10:30 AM CST Images from the original note were not included. Patient ID: Sandy Lopez is a 57 y.o. female. Chief Complaint Diabetes Type 2 2. Addended note: Urgent Appeal Fax to [phone] attn: appeals department Patient uses 108 units of insulin/day. Each pod last 1.8 days. Omnipods denied due to number of podexceed 10 per month. Patient needs 30/months due to high insulin usage. Today visit is a follow up visit. She has Type 2 Diabetes associated with microalbuminurea. She does not exercises but stays active with family and friends. 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 She eats 2-3 meals/day. She monitors blood sugar by wearing the DexCom 6 sensor and receives insulin per the Omnipod insulin de livery system. She denies hypoglycemia. Her weight has increased by 7lbs since her last office visit. She has one grand son, named Kristian. Today's visit is to review labs and discuss future plan. Diabetes regimen: continue Omnipod - continue 0000-2.65 ic-6, isf-20. AI-3 Metformin 1000mg twice aday. Continue Jardiance 25 mg p.o. daily. Will switch Victoza to mounjaro as she is not at goal of less than 7%. Failed Trulicity stopped 10/29/2022. Failed victoza 01/27/2023. Will try mounjaro Subjective/Objective Review of Systems Constitutional: Positive for [...] Results Component Value Date HGBA1C 7.4 01/27/2023 HGBA1C 7.6 10/29/2022 HGBA1C 7.1 (H) 07/19/2022 HGBA1C 7.1 07/15/2022 HGBA1C 7.2 04/15/2022 HGBA1C 6.5 12/28/2021 Chemistry Lab Results Component Value Date SODIUM 137 07/19/2022 POTASSIUM 4.4 10/29/2022 CHLORIDE 100 07/19/2022 CO2 25 07/19/2022 ANIONGAP 12 07/19/2022 BUNSER 20 07/19/2022 CREATININE 0.79 10/29/2022 GLUCOSE 106 07/19/2022 CALCIUM 10.9 (H) 07/19/2022 BILITOT 0.3 07/19/2022 ALBUMIN 4.5 07/19/2022 GFRNAA 88 10/29/2022 ALKPHOS 63 07/19/2022 AST 34 07/19/2022 ALT 40 07/19/2022 PHOS 5.2 (H) 07/19/2022 Lab Results Component Value Date ALBUMINUR 339.8 07/19/2022 CREATININEUR 55.9 07/19/2022 ALBCREATRATU 608 (H) 07/19/2022 Lab Results Component Value Date CHOL 115 07/19/2022 HDL 35 (L) 07/19/2022 TRIG 156 (H) 07/19/2022 LDLCALC 49 07/19/2022 Lab Results Component Value Date TSH 0.86 07/19/2022 TSH 0.96 07/13/2021 TSH 1.56 06/09/2020 Assessment/Plan Diagnoses and all orders for this visit: Type 2 diabetes mellitus with hyperglycemia, with long-term current use of insulin ([facility]) ([facility]) (Primary) Assessment & Plan: This is a [...] of less than 70. Continue atorvastatin, Zetia Orders: - POCT glucose - POCT hemoglobin A1c Hyperlipidemia associated with type 2 diabetes mellitus (HCC) Assessment & Plan: This is a chronic condition which is at goal of LDL less than 70 Continue atorvastatin Zetia Encouraged to eat healthy, include fresh fruits and vegetables daily and avoid eating fried foods more than once per week. Encouraged to take medications as prescribed. Hypertension associated with type 2 diabetes mellitus (HCC) Assessment & Plan: This is a chronic condition which is at goal of less than 140/90 Personally reviewed labs. Continue losartan/hydrochlorothiazide Encouraged to monitor weight and B/P at home Encouraged to take medications as prescribed. dexcom 6 continuous glucose monitoring device Assessment & Plan: Continuous glucose monitor (cgm) applied 12/27/2022 to 01/09/2023 This device was placed for monitor and treatment of blood sugar. Interpretation of data- average glucose 166, 66% time in range, 34% hyperglycemia, no hypoglycemia noted Omnipod Dash Insulin pump in place [...] units (54%) Interpretation-Average blood sugar is 192 Discussed and educated on eating a healthy [...] No follow-ups on file. Marialuisa Daniel NP ITE EXTERMINATOR HELPER ITE EXTERMINATOR HELPER documented in this encounter Miscellaneous Notes * Assessment & Plan Note - Marialuisa Daniel NP - 01/27/2023 11:06 AM TERMITE EXTERMINATOR HELPER Associated Problem(s): Hypertension associated with type 2 diabetes mellitus (HCC) This is a chronic condition which is at goal of less than 140/90 Personally reviewed labs. Continue losartan/hydrochlorothiazide Encouraged to monitor weight and B/P at home Encouraged to take medications as prescribed. ITE EXTERMINATOR HELPER ITE EXTERMINATOR HELPER * Assessment & Plan Note - Marialuisa Daniel NP - 01/27/2023 11:04 AM TERMITE EXTERMINATOR HELPER Associated Problem(s): Omnipod Dash Insulin pump in [...] units (54%) Interpretation-Average blood sugar is 192 ITE EXTERMINATOR HELPER * Assessment & Plan Note - Marialuisa Daniel NP - 01/27/2023 11:03 AM TERMITE EXTERMINATOR HELPER Associated Problem(s): Class 1 obesity due to excess calories with serious comorbidity and body mass index (BMI) of 33.0 to 33.9 in adult This is a chronic condition which is worsening 7 lb weight gain since last office visit Encouraged healthy eating and exercise Will switch Ozempic to mounjaro ITE EXTERMINATOR HELPER * Assessment & Plan Note - Marialuisa Daniel NP - 01/27/2023 11:02 AM TERMITE EXTERMINATOR HELPER Associated Problem(s): dexcom 7 continous glucose monitor Continuous glucose monitor (cgm) applied 12/27/2022 to 01/09/2023 This device was placed for monitor and treatment of blood sugar. Interpretation of data- average glucose 166, 66% time in range, 34% hyperglycemia, no hypoglycemia noted ITE EXTERMINATOR HELPER * Assessment & Plan Note - Marialuisa Daniel NP - 01/27/2023 11:00 AM TERMITE EXTERMINATOR HELPER Associated Problem(s): Hyperlipidemia associated with type 2 diabetes mellitus (HCC) This is a chronic condition which is at goal of LDL less than 70 Continue atorvastatin Zetia Encouraged to eat healthy, include fresh fruits and vegetables daily and avoid eating fried foods more than once per week. Encouraged to take medications as prescribed. ITE EXTERMINATOR HELPER * Assessment & Plan Note - Marialuisa Daniel NP - 01/27/2023 11:00 AM TERMITE EXTERMINATOR HELPER Associated Problem(s): Type 2 diabetes mellitus with hypoglycemia without coma, with long-term current use of insulin ([facility]) This is a chronic condition which is [...] of less than 70. Continue atorvastatin, Zetia ITE EXTERMINATOR HELPER documented in this encounter Plan of Treatment Not on file documented as of this encounter Procedures Procedure Name Priority Date/Time Associated Diagnosis Comments POCT HEMOGLOBIN A1C Routine 01/27/2023 1 0:40 AM TERMITE EXTERMINATOR HELPER Type 2 diabetes mellitus with hyperglycemia, with long-term current use of insulin ([facility]) ([facility]) POCT GLUCOSE Routine 01/27/2023 10:35 AM TERMITE EXTERMINATOR HELPER Type 2 diabetes mellitus with hyperglycemia, with long-term current use of insulin ([facility]) ([facility]) documented in this encounter Results * POCT hemoglobin A1c (01/27/2023 10:40 AM TERMITE EXTERMINATOR HELPER) Hemoglobin A1C, POC 7.4 % Blood 01/27/2023 10:4 0 AM TERMITE EXTERMINATOR HELPER us Marialuisa Daniel NP POINT OF CARE TEST ORDERABLES F inal Result * POCT glucose (01/27/2023 10:35 AM TERMITE EXTERMINATOR HELPER) Glucose Blood, POC 165 mg/dL Blood 01/27/2023 10:3 5 AM TERMITE EXTERMINATOR HELPER Marialuisa Daniel NP POINT OF CARE TEST ORDERABLES F inal Result documented in this encounter Visit Diagnoses Diagnosis Type 2 diabetes mellitus with hyperglycemia, with long-term current use of insulin ([facility])- Primary Hyperlipidemia associated with type 2 diabetes mellitus ([facility]) Hypertension associated with type 2 diabetes mellitus ([facility]) dexcom 6 continuous glucose monitoring device Omnipod Dash Insulin pump in place Insulin pump status documented in this encounter Discontinued Medications Medication Sig Discontinue Reason Start Date End Da te hydrocortisone 1 % ointment daily Therapy completed 07/29/2022 01/27/2023 liraglutide (VICTOZA) 0.6 mg/0.1 mL (18 mg/3 mL) injectionIndications:ty pe 2 diabetes mellitus Inject 1.8 mg under the skin daily Indications: type 2 diabetes mellitus E11,65 Therapy completed 12/02/2022 01/27/2023 documented as of this encounter Historical Medications * This list may reflect changes made after this encounter. Medication Sig Dispense Quantity Refills Last Filled Start D ate End Date amoxicillin-clavulana te (AUGMENTIN) 875-125 mg per tablet 01/24/2023 added in this encounter Care Teams Sap Bw Bi Developer Relationship Specialty Start Date End Date Eron Holliday NP [address] [facility] [place] [id number] PCP - General Pain Management 07/15/22 documented as of this encounter
--- OUTSIDE RECORDS SUMMARY | 2024-03-03 15:35 | XMS_ITS | Encounter Summary ---
Author Organization [facility] Healthcare Address [address] [place] [address] Care Team Providers Care School Psychological Examiner Name Role Phone Eron Acevedo NP Primary Care Provider +1- [phone] Reason for Visit * Reason Comments PT [...] of right infraspinatus tendon Lamar Slater, CHRISTOPHER [address] [address] Phone: tel: fax: [address] [address] Referral ID Status Reason Start Date Expiration Date V isits Requested Visits Authorized [id number] Closed Evaluate and Treat 05/08/2023 05/07/2024 16 12 Encounter Details Date Type Department Care Team (Late st Contact Info) Description 05/30/2023 8:30 AM CDT Therapy [facility] Medical Office Bldg 1 OP Physical Therapy [address] [place] [id number] Akilah Dennis PTA Numbness and tingling [...] on file Legal Sex Female 8:53 AM AIRCRAFT NAVIGATOR Gender Identity Female 12/26/2023 10:11 PM CDT Sexual Orientation Straight 12/26/2023 10 :11 PM CDT Occupation Industry Job Start Date Job End Date [employer] Not on file Not on file Not on file documented as of this encounter Progress Notes * Akilah Dennis, FRAUD REPRESENTATIVE - 05/30/2023 8:30 AM CDT No diagnosis found. ERON ACEVEDO PT Diagnosis: Cervical derangements Precautions: None Relevant [...] Date Date Date Date 05/09/23 05/20/2023 05/27/23 05/30/23 Visit Number 1 3 4 ADDITIONAL HEP SHEETS ISSUED Chin Tucks 2/10 2 x10 2x10 2 x 10 Scap Add 15 10x 10 x TB Rows Red 20 Red x20 Red x20 Red x 20 Red x 20 CS Extension AROM 15 R Tricep Extension tubing (arm at side) Red 20 Red x20 3# 2x10 Red x 20 Red R Levator stretch 4x 4x Seated Row Machine 20# 15x 20# 15 x both handles 20# 15 x both handles Lat Pull Down Machine 20# x15 20# 15x 20# 15 x CS Joint glide C6-C7 3 Sets R side glide TDN / STM EW PT EW, PT EW, PT NT NT Mechanical Traction Cervical Next visit 17# ON 9# OFF 17#on9#off 17# on 9# off 17 IFC CP H/L sweep Progress Note/Re-Cert TDN treatment utilized .30 x 40,50 mm J Type needles. Treatment site included: R C5 - T1 PVM x 3, RUT, R Levator, R Rhomboid minor STM performed to the treatment site after the TDN treatment * Akilah Dennis PTA - 05/30/2023 8:30 AM CDT Images from the original note were not included. Physical Therapy Visit/Daily Note 05/30/2023 Sandy Don Jessica 1965 No diagnosis found. ERON ACEVEDO Subjective: Pt states she is doing HEP. Pt is reporting continued difficulty with pain 4 or 5/10 after working.States she still has constant numbness in hand. Pain today is 2. Changes since last visit include Slight improvement. Objective: Objective Measurement/Observation: Added IFC this date secondary to pain Pt tolerates all exercises with good range and technique noted; no adverse effects. Pt displays tightness. Specific exercises and treatment interventions are outlined on exercise worksheet document. Treatment Performed on This Visit: Manual Therapy (body part and techniques): None. Therapeutic Procedure/Exercise: See Exercise Sheet. Modalities: IFC. Traction HEP given: Reviewed HEP. Patient education: To do exercises as tolerated. Assessment: Patient tolerated today's treatment well with no adverse effects. Patient demonstrates numbness andpain which is contributing to difficulty with functional mobility and ADLs. Patient would benefit from additional skilled therapy services and demonstrates good prognosis to achieve stated goals. Goals Addressed This Visit: Progressing towards goals. Plan: Patient would benefit from the following modification on next visit: Continue to work on exercises and stretching. Therapy will continue to address these impairments in order to progress towards functional goals. Akilah Dennis PTA [facility] Services ATTENTION PHYSICIAN If you are unable [...] Primary documented in this encounter Care Teams School Psychological Examiner Relationship Specialty Start Date End Date Eron Acevedo NP [address] [place] [address] PCP - General Pain Management 07/15/22 documented as of this encounter
--- OUTSIDE RECORDS SUMMARY | 2024-03-03 15:35 | XMS_ITS | Encounter Summary ---
Author Organization [facility] Healthcare Address [address] [place] [address] Care Team Providers Care Fast Food Crew Lead Name Role Phone Eron Hollidya NP Primary Care Provider +1- [phone] Encounter Details Date Type Department Care Team (Latest Contact Info) Description 10/29/2022 10:40 AM CDT - 10/29/2022 11:59 PM CDT Hospital Encounter [facility] [address] [place] [id number] Discharge Disposition: Discharge to home or self care Social History Tobacco Use Types Packs/Day Years Used Date Smoking Tobacco: Former Cigarettes Q uit: 03/20/2020 Smokeless Tobacco: Never Comments No Sex and Gender Information Value Date Recorded Sex Assigned at Not on file Legal Sex Female 8:53 AM COMPOSITION WEATHERBOARD INSTALLER Gender Identity Female 12/26/2023 10:11 PM CDT Sexual Orientation Straight 12/26/2023 10 :11 PM CDT documented as of this encounter Medications at Time of Discharge aspirin 81 mg enteric coated tablet Take 1 tablet (81 mg total) by mouth daily 12/04/2018 citalopram (CeleXA) 20 mg tablet Take 1.5 [...] by mouth daily 04/09/2022 insulin lispro (HumaLOG) 200 unit/mL (3 mL) pen for injectionIndicati ons:type 2 diabetes mellitus Inject 0.08 mL (16 Units total) under the skin 3 (three) times a day before meals When insulin pump fails. E11.65 pump has failed. 15 mL 5 12/25/2021 insulin syringe-needle U-100 1 mL 31 gauge x 5/16 syringe Twice a day 07/13/2018 losartan-hydroCHL OROthiazide (HYZAAR) 100-12.5 mg per tablet Take 1 tablet by mouth daily 04/09/2022 meclizine (ANTIVERT) 25 mg tablet Take 1 tablet (25 mg total) by mouth as needed 02/11/2022 pen needle, diabetic (TRUEplus Pen Needle) 32 [...] mg total) by mouth once as needed zolpidem (AMBIEN) 10 mg tablet Take 1 tablet (10 mg total) by mouth nightly as needed aspirin 81 mg enteric coated tablet aspirin 81 mg tablet,delayed release (DR/EC) 01/08/2021 4 atorvastatin (LIPITOR) 80 mg tablet TAKE 1 TABLET BY MOUTH DAILY 90 tablet 3 05/03/2022 4 blood-glucose meter kitIndications:Un controlled type 2 diabetes mellitus with hyperglycemia, with long-term current use of insulin (HCC) Use daily or as directed for monitoring of diabetes 1 each 07/04/2017 4 busPIRone (BUSPAR) 5 mg tablet Take 1 tablet (5 mg total) by mouth 2 (two) times a day 12/17/2021 4 cetirizine (ZyrTEC) 10 mg tablet Take 1 tablet (10 mg total) by mouth daily 12/05/2018 4 cholecalciferol 25 mcg (1,000 unit) tablet 10/18/2022 4 cyclobenzaprine (FLEXERIL) 10 mg tablet 10/18/2022 4 Dexcom G6 Counter Top Assembler miscIndications:T ype 2 diabetes mellitus with hyperglycemia, with long-term current use of insulin (HCC) USE TO TEST BLOOD SUGAR DIRECTED 1 each 1 08/22/2021 4 Dexcom G6 Sensor deviceIndications :Type 2 diabetes mellitus with hyperglycemia, with long-term current use of insulin (HCC) USE TO TEST BLOOD SUGAR DIRECTED 4 each 10 01/14/2022 3 Dexcom G6 Transmitter deviceIndications :Type 2 diabetes mellitus with hyperglycemia, with long-term current use of insulin ([facility]) USE TO TEST BLOOD SUGAR TWICE A DAY 1 each 3 05/28/2022 4 empagliflozin (Jardiance) 25 mg tabletIndications :heart failure associated with type 2 diabetes mellitus Take 1 tablet (25 mg total) by mouth daily 90 tablet 3 10/29/2022 4 estradioL (ESTRACE) 0.5 mg tablet Take 1 tablet (0.5 mg total) by mouth daily 10/11/2018 4 hydrocortisone 1 % ointment daily 07/29/2022 3 hydrOXYzine (ATARAX) 25 mg tablet 01/14/2022 4 insulin glargine (LANTUS) 100 unit/mL (3 mL) pen for injection Inject 50 Units under the skin daily before dinner Use lantus 50 units once daily in pm for insulin pump failure. e11.65 pump has failed 15 mL 5 12/25/2021 3 insulin lispro (HumaLOG) 100 unit/mL vial for injection USE PER INSULN PUMP MAX OF 150 UNITS DAILY DIRECTED 50 mL 5 03/08/2022 3 insulin pump cart,cont inf,BT (Omnipod Dash Pods, Gen 4,) cartridge CHANGE POD EVERY 48 HOURS 15 each 11 05/31/2022 4 insulin pump cart,cont inf,BT (Omnipod Dash Pods, Gen 4,) cartridge Omnipod Dash Pods (Gen 4) subcutaneous cartridge 4 liraglutide (VICTOZA) 0.6 mg/0.1 mL (18 mg/3 mL) injectionIndicati ons:type 2 diabetes mellitus Inject 1.2 mg under the skin daily Indications: type 2 diabetes mellitus E11,65 9 mL 3 10/29/2022 3 medroxyPROGESTERo ne (PROVERA) 5 mg tablet 12/17/2021 4 metFORMIN (GLUCOPHAGE) 1,000 mg tablet TAKE 1 TABLET BY MOUTH TWICE A DAY WITH FOOD 60 tablet 07/30/2022 4 pediatric multivitamin-iron tablet,chewable Take by mouth 07/23/2018 4 predniSONE (DELTASONE) 20 mg tablet 4 semaglutide (Ozempic) 0.25 mg or 0.5 mg(2 mg/1.5 mL) pen injector injection Ozempic 0.25 mg or 0.5 mg(2 mg/1.5 mL) pen injector 09/07/2019 4 documented as of this encounter Discharge Disposition Disposition Code Departure Means Destination Discharge to home or self care documented in this encounter Plan of Treatment Not on file documented as of this encounter Procedures Procedure Name Priority Date/Time Associated Diagnosis Comments EGFR Routine 10/29/2022 10:40 AM CDT POTASSIUM LEVEL Routine 10/29/2022 10:40 AM CDT CREATININE Routine 10/29/2022 10:40 AM CDT documented in this encounter Results * eGFR (10/29/2022 10:40 AM CDT) [facility] eGFR 88 mL/min/1. 73 m2 OLIVIA KNAPP Comment: Interpretive Data Reference Interval Normal ?>/= [...] interpretive data was last reviewed 2020. Blood 10/29/2022 10:4 0 AM CDT 10/29/2022 7:03 PM CDT Christophe Tan MD LAB BLOOD ORDERABLES Final Resu lt Performing Organization Address [facility] Co de Phone Number [facility] [address] [address] [place] [address] * Potassium (10/29/2022 10:40 AM CDT) [facility] Potassium, pl 4.4 3.3 - 4.9 mmol/L [facility] Blood 10/29/2022 10:4 0 AM CDT 10/29/2022 6:34 PM CDT Christophe Tan MD LAB BLOOD ORDERABLES Final Resu lt Performing Organization Address [facility] Co de Phone Number [facility] [address] [address] [place] [address] * Creatinine (10/29/2022 10:40 AM CDT) Creatinine 0.79 0.60 - 1.10 mg/dL OLIVIA KNAPP Blood 10/29/2022 10:4 0 AM CDT 10/29/2022 6:34 PM CDT us Christophe Tan MD LAB BLOOD ORDERABLES Final Resu lt OLIVIA KNAPP [address] [address] Department [place] [address] documented in this encounter Visit Diagnoses Not on filedocumented in this encounter Care Teams Fast Food Crew Lead Relationship Specialty Start Date End Date Eron Holliady NP [address] [place] [address] [place] [address] PCP - General Pain Management 07/15/22 documented as of this encounter
--- OUTSIDE RECORDS SUMMARY | 2024-03-03 15:35 | XMS_ITS | Encounter Summary ---
Author Organization [facility] Address [address] [place] [address] Care Team Providers Care Cooperative Education Coordinator Name Role Phone Eron Acevedo NP Primary Care Provider +1- [phone] Reason for Visit * Reason Comments PT [...] of right infraspinatus tendon Lamar Slater, CHRISTOPHER [address] [address] Phone: tel: fax: [address] [phone] Referral ID Status Reason Start Date Expiration Date V isits Requested Visits Authorized [id number] Closed Evaluate and Treat 05/08/2023 05/07/2024 16 12 Encounter Details Date Type Department Care Team (Late st Contact Info) Description 05/16/2023 8:30 AM CDT Therapy [facility] Medical Office Bldg 1 OP Physical Therapy [address] [place] [address] Mili Ortega, GENEVIEVE Numbness and tingling of right upper extremity (Primary Dx); Chronic neck pain; Arthropathy of cervical facet joint; DDD (degenerative disc disease), cervical, mild C4-C5, moderate C5-C7; Foraminal stenosis of cervical region; Anterolisthesis of cervical spine, mild C4 on C5; Primary osteoarthritis, right shoulder; Tendonitis of right infraspinatus tendon Social History Tobacco Use Types Packs/Day Years Used Date Smoking Tobacco: Former Cigarettes Q uit: 03/20/2020 Smokeless Tobacco: Never Personal Safety Answer Date Recorded Getting School Help Needed Not on file 02/13 Comments No Sex and Gender Information Value Date Recorded Sex Assigned at Not on file 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 Numbness and tingling of right upper extremity 782.0 R20.0 R20.2 2. Chronic neck pain 723.1 M54.2 338.29 G89.29 3. Arthropathy of cervical facet joint 721.0 M47.812 4. DDD (degenerative disc disease), cervical, mild C4-C5, moderate C5-C7 722.4 M50.30 5. Foraminal stenosis of cervical region 723.0 M48.02 6. Anterolisthesis of cervical spine, mild C4 on C5 756.12 M43.12 7. Primary osteoarthritis, right shoulder 715.11 M19.011 8. Tendonitis of right infraspinatus tendon 726.10 M75.81 ERON ACEVEDO PT Diagnosis: Cervical derangements Precautions: [...] weeks) Date Date Date Date Date 05/09/23 Visit Number 1 ADDITIONAL HEP SHEETS ISSUED Chin Tucks 04/05 2 x10 Scap Add 15 TB Rows Red 20 Red x20 CS Extension AROM 15 R Tricep Extension tubing (arm at side) Red 20 Red x20 R Levator stretch 4x Seated Row Machine Lat Pull Down Machine CS Joint glide C6-C7 3 Sets R side glide TDN / STM EW PT EW, PT Mechanical Traction Cervical Next visit 17# ON 9# OFF Progress Note/Re-Cert TDN treatment utilized .30 x 40,50 mm J Type needles. Treatment site included: R C5 - T1 PVM x 3, RUT, R Levator, R Rhomboid minor STM performed to the treatment site after the TDN treatment * Mili Ortega PTA - 05/16/2023 8:30 AM CDT Images from the original note were not included. Physical Therapy Visit/Daily Note 05/16/2023 Sandy Lopez 1965 ICD-9-CM ICD-10-CM 1. Numbness and tingling of right upper extremity 782.0 R20.0 R20.2 2. Chronic neck pain 723.1 M54.2 338.29 G89.29 3. Arthropathy of cervical facet joint 721.0 M47.812 4. DDD (degenerative disc disease), cervical, mild C4-C5, moderate C5-C7 722.4 M50.30 5. Foraminal stenosis of cervical region 723.0 M48.02 6. Anterolisthesis of cervical spine, mild C4 on C5 756.12 M43.12 7. Primary osteoarthritis, right shoulder 715.11 M19.011 8. Tendonitis of right infraspinatus tendon 726.10 M75.81 ERON ACEVEDO. Subjective: Pt reports feeling unchanged.following last visit. Pt states compliant with HEP. Pt is reporting continued difficulty with NT down R arm. Pain today is 4/10 Changes since last visit include No significant changes. Objective: Objective Measurement/Observation: Pt tolerates all exercises with good range and technique noted; no adverse effects. Pt requires mincue for proper form with good follow through Specific exercises and treatment interventions are outlined on exercise worksheet document. Treatment Performed on This Visit: Manual Therapy (body part and techniques): Jesse BEARD, PT. Therapeutic Procedure/Exercise: See exercise sheet. Modalities: Cervical Traction. HEP given: None. Patient education: Continue with HEP. Assessment: Patient tolerated today's treatment well with no adverse effects. Patient demonstrates decreased cervical ROM. which is contributing to difficulty with functional mobility and ADLs. Patient would benefit from additional skilled therapy services and demonstrates good prognosis to achieve stated goals. Goals Addressed This Visit: Progressing towards STG # 2,3. Plan: Patient would benefit from the following modification on next visit: Continue PT per POC to progress toward goals per patient tolerance with emphasis on strength and ROM. Therapy will continue to address these impairments in order to progress towards functional goals. Mili Ortega PTA [facility] ATTENTION PHYSICIAN If you are unable to electronically sign this document, please print this document and sign below to certify this plan of care/treatment plan. By signing this document, I certify that I have reviewedthis plan of care and support the treatment. Please fax back to . Thank you. Provider Signature: Date: Cosigned by Jesse Pride PT at 05/16/2023 4:28 PM CDT documented in this encounter Plan of Treatment Not on file documented as of this encounter Visit Diagnoses Diagnosis Numbness and tingling of right upper extremity- Primary Chronic neck pain Cervicalgia Arthropathy of cervical facet joint DDD (degenerative disc disease), cervical, mild C4-C5, moderate C5-C7 Degeneration of cervical intervertebral disc Foraminal stenosis of cervical region Anterolisthesis of cervical spine, mild C4 on C5 Primary osteoarthritis, right shoulder Tendonitis of right infraspinatus tendon documented in this encounter Care Teams Cooperative Education Coordinator Relationship Specialty Start Date End Date Eron Acevedo NP [address] [place] [address] [place] [address] PCP - General Pain Management 07/15/22 documented as of this encounter
--- OUTSIDE RECORDS SUMMARY | 2024-03-03 15:35 | XMS_ITS | Encounter Summary ---
Author Organization [facility] Address [address] [place] [address] Care Team Providers Care Processing Clerk Name Role Phone Eron Holliday NP Primary Care Provider [phone]- [phone] Reason for Referral * MRI/CAT/PET Scan (Routine) - Closed Specialty Diagnoses / Procedures Referred By Claudette smith Referred To Contact Radiology Diagnoses Right cervical radiculopathy Foraminal stenosis of cervical region Arthropathy of cervical facet joint DDD (degenerative disc disease), cervical Anterolisthesis of cervical spine Procedures MRI Cervical Spine WO Contrast Lamar Slater NP [address] [place] [address] [address] Phone: tel: fax: [address] [phone] Referral ID Status Reason Start Date Expiration Date Visits Re quested Visits Authorized [id number] Closed 07/23/2023 07/22/2024 1 1 Reason for Visit * MRI/CAT/PET Scan (Routine) - Closed Specialty Diagnoses / Procedures Referred By Claudette smith Referred To Contact Radiology Diagnoses Right cervical radiculopathy Foraminal stenosis of cervical region Arthropathy of cervical facet joint DDD (degenerative disc disease), cervical Anterolisthesis of cervical spine Procedures MRI Cervical Spine WO Contrast Lamar Slater NP [facility] [address] OFE [address] [place] [address] Phone: tel: fax: [address] [phone] Referral ID Status Reason Start Date Expiration Date Visits Re quested Visits Authorized [id number] Closed 07/23/2023 07/22/2024 1 1 Encounter Details Date Type Department Care Team (Latest Contact Info) Description 08/07/2023 7:44 AM CDT - 08/07/2023 11:59 PM CDT Hospital Encounter [facility] [address] [place] [address] Right cervical radiculopathy; Foraminal stenosis of cervical region, left-sided C4-C5 and right-sided C6-C7; Arthropathy of cervical facet joint, multilevel; DDD (degenerative disc disease), cervical, mild C4-C5, moderate C5-C7; Anterolisthesis of cervical spine, mild C4 on C5 Discharge Disposition: Discharge to home or self care Social History Tobacco Use Types Packs/Day Years Used Date Smoking Tobacco: Former Cigarettes Q uit: 03/20/2020 Smokeless Tobacco: Never Personal Safety Answer Date Recorded Getting School Help Needed Not on file 02/13 Comments No Sex and Gender Information Value Date Recorded Sex Assigned at Not on file 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 Gender Identity Female 12/26/2023 10:11 PM CDT Sexual Orientation Straight 12/26/2023 10 :11 PM CDT Occupation Industry Job Start Date Job End Date [employer] Not on file Not on file [...] BY MOUTH DAILY 90 tablet 3 04/10/2023 citalopram (CeleXA) 20 mg tablet Take 1.5 [...] under the skin daily E11.65 30 each 03/18/[address] (PROTONIX) 40 mg EC tablet Take 1 tablet (40 mg total) by mouth daily 05/30/2023 pen needle, diabetic (TRUEplus Pen Needle) 32 gauge x 5/32 needle TRUEplus Pen Needle 32 gauge x 5/32 pen needle, diabetic 32 gauge x 5/32 needle Use to inject insulin up to 4times/day. E11.65 150 each 12/25/2021 propranoloL (INDERAL) 20 mg tablet Take [...] 81 mg tablet,delayed release (DR/EC) 01/08/2021 4 blood-glucose meter kitIndications:Un controlled type 2 [...] 25 mcg (1,000 unit) tablet 10/18/2022 4 Dexcom G6 Employment Service Specialist miscIndications:T ype 2 diabetes mellitus with hyperglycemia, with long-term current use of insulin (HCC) USE TO TEST BLOOD SUGAR DIRECTED 1 each 1 08/22/2021 4 Dexcom G6 Transmitter deviceIndications :Type 2 diabetes mellitus with hyperglycemia, with long-term current use of insulin ([facility]) USE TO TEST BLOOD SUGAR TWICE A DAY 1 each 3 05/28/2022 4 Dexcom G7 Sensor device 1 Device continuously . Change every 10 days. E11.65 10 each 3 12/13/2022 4 empagliflozin (Jardiance) 25 mg tabletIndications :heart failure associated with type 2 diabetes mellitus Take 1 tablet (25 mg total) by mouth daily 90 tablet 3 10/29/2022 4 estradioL (ESTRACE) 0.5 mg tablet Take 1 tablet (0.5 mg total) by mouth daily 10/11/2018 4 hydrOXYzine (ATARAX) 25 mg tablet 01/14/2022 4 insulin lispro (HumaLOG) 100 unit/mL vial for injection USE PER INSULIN PUMP MAX OF 150 UNITS DAILY NEEDED 50 mL 2 05/30/2023 4 medroxyPROGESTERo ne (PROVERA) 5 mg tablet 12/17/2021 4 pediatric multivitamin-iron tablet,chewable Take by mouth 07/23/2018 4 semaglutide (Ozempic) 0.25 mg or 0.5 mg(2 mg/1.5 mL) pen injector injection Ozempic 0.25 mg or 0.5 mg(2 mg/1.5 mL) pen injector 09/07/2019 4 tirzepatide (MOUNJARO) 7.5 mg/0.5 mL pen injector Inject 7.5 mg under the skin once a week E11.65 6 mL 4 06/26/2023 4 documented as of this encounter Discharge Disposition Disposition Code Departure Means Destination Discharge to home or self care documented in this encounter Plan of Treatment Not on file documented as of this encounter Procedures Procedure Name Priority Date/Time Associated Diagnosis Comments MRI CERVICAL SPINE WO CONTRAST Schedule Routine, Read Routine (OP Routine) 08/07/2023 1:12 PM CDT Right cervical radiculopathy Foraminal stenosis of cervical region, left-sided C4-C5 and right-sided C6-C7 Arthropathy of cervical facet joint, multilevel DDD (degenerative disc disease), cervical, mild C4-C5, moderate C5-C7 Anterolisthesis of cervical spine, mild C4 on C5 documented in this encounter Results * MRI Cervical Spine WO Contrast (08/07/2023 1:12 PM CDT) Anatomical Region Laterality Modality Spine N/A Magnetic Resonan ce 08/07/2023 2:59 PM CDT Narrative 08/07/2023 3:11 PM CDT EXAM DESCRIPTION: ?? MRI CERVICAL SPINE WO CONTRAST REASON FOR STUDY: ?? Neck pain. TECHNIQUE: Sagittal and Axial imaging includes T1, T2, STIR and gradient echo sequences. ? COMPARISON: ?? Cervical spine radiographs 04/16/2023 FINDINGS: ALIGNMENT: ?? Mild reversal of the cervical lordosis with mild C4 on C5 anterolisthesis and mild C7 on T1 anterolisthesis. ??Mild C5 on C6 retrolisthesis. VERTEBRAE: ?? Normal vertebral body heights. No MR evidence for recent fracture or ligamentous injury. No prevertebral or paravertebral soft tissue swelling. ?? No suspicious marrow signal DISCS: ?? There is multilevel degenerative disc height loss, most pronounced and moderate at C5-C6 and C6-C7. ??There is mild disc height loss at additional levels. ?? HARDWARE: ?? None in the spine. CORD: ?? Evaluation limited by motion and other artifacts on the axial sequence.. ??No cord signal abnormality identified. ??Normal cord caliber. INDIVIDUAL LEVELS: C1-C2: ?? No significant spinal stenosis. C2-C3: ?? Normal disc configuration. ??Moderate left and mild right facet arthropathy. ??Normal uncovertebral joints. ??No significant neural foraminal or spinal canal stenosis C3-C4: ?? Disc bulge. ??Moderate left and mild right facet arthropathy. ??Normal uncovertebral joints. ??Mild left neural foraminal stenosis. ??No spinal canal stenosis C4-C5: ?? Small posterior disc osteophyte complex. ??Moderate left and mild right facet arthropathy. ??Shlr-wa-rwwqvqvn bilateral uncovertebral arthropathy. ??Mild bilateral neural foraminal stenosis. ??No significant spinal canal stenosis C5-C6: ?? Posterior disc osteophyte complex. ??Mhhz-as-dqxkogqg bilateral facet arthropathy. ??Moderate left and mild right uncovertebral arthropathy. ?? Moderate left neural foraminal stenosis. ??Kkmp-bs-ukvbeljh spinal canal stenosis C6-C7: ?? Posterior disc osteophyte complex moderate bilateral facet arthropathy. ??Severe right ??moderate bilateral uncovertebral arthropathy. ?? Moderate right and nmaz-fg-aqbcxyqs left neural foraminal stenosis. ??Moderate spinal canal stenosis C7-T1: Mild disc bulge. ??Mild facet and uncovertebral arthropathy. ??Mild left neural foraminal stenosis. ??No significant spinal canal stenosis BASE OF BRAIN: ?? No significant finding. UPPER THORACIC: ?? Incompletely imaged. No significant spinal stenosis or foraminal stenosis. OTHER: ?? No other significant finding. IMPRESSION: Multilevel cervical degenerative disc and joint disease, as detailed level by level above. There is ivgk-pk-eapimonc spinal canal stenosis at C5-C6 and moderate spinal canal stenosis at C6-C7 with multilevel neural foraminal stenosis, most pronounced and moderate on the left at C5-C6 and on the right at C6-C7. THIS IS AN ELECTRONICALLY VERIFIED FINAL REPORT 08/07/2023 3:11 PM - Electronically signed by ??Stephen Nguyen M.D. MZ D: ??08/07/2023 3:11 PM T: Report ID: [id number] Reading Location: ??[id number] Procedure Note Stephen Nguyen MD - 08/07/2023 EXAM DESCRIPTION: MRI CERVICAL SPINE WO CONTRAST REASON FOR STUDY: Neck pain. TECHNIQUE: Sagittal and Axial imaging includes T1, T2, STIR and gradientecho sequences. COMPARISON: Cervical spine radiographs 04/16/2023 FINDINGS: ALIGNMENT: Mild reversal of the cervical lordosis with mild C4 on C5 anterolisthesis and mild C7 on T1 anterolisthesis. Mild C5 on C6 retrolisthesis. VERTEBRAE: Normal vertebral body heights. No MR evidence for recentfracture or ligamentous injury. No prevertebral or paravertebral soft tissueswelling. No suspicious marrow signal DISCS: There is multilevel degenerative disc height loss, mostpronounced and moderate at C5-C6 and C6-C7. There is mild disc height loss atadditional levels. HARDWARE: None in the spine. CORD: Evaluation limited by motion and other artifacts on the axial sequence.. No cord signal abnormality identified. Normal cord caliber. INDIVIDUAL LEVELS: C1-C2: No significant spinal stenosis. C2-C3: Normal disc configuration. Moderate left and mild right facet arthropathy. Normal uncovertebral joints. No significant neuralforaminal or spinal canal stenosis C3-C4: Disc bulge. Moderate left and mild right facet arthropathy.Normal uncovertebral joints. Mild left neural foraminal stenosis. No spinalcanal stenosis C4-C5: Small posterior disc osteophyte complex. Moderate left and mild right facet arthropathy. Jocp-wk-cpqhhqrk bilateral uncovertebral arthropathy. Mild bilateral neural foraminal stenosis. No significantspinal canal stenosis C5-C6: Posterior disc osteophyte complex. Xzfz-pg-vruaqpqa bilateralfacet arthropathy. Moderate left and mild right uncovertebral arthropathy. Moderate left neural foraminal stenosis. Dxqn-uz-ilbuhtyl spinal canal stenosis C6-C7: Posterior disc osteophyte complex moderate bilateral facet arthropathy. Severe right moderate bilateral uncovertebral arthropathy. Moderate right and pdtu-mr-wplhfriu left neural foraminal stenosis.Moderate spinal canal stenosis C7-T1: Mild disc bulge. Mild facet and uncovertebral arthropathy. Mildleft neural foraminal stenosis. No significant spinal canal stenosis BASE OF BRAIN: No significant finding. UPPER THORACIC: Incompletely imaged. No significant spinal stenosis or foraminal stenosis. OTHER: No other significant finding. IMPRESSION: Multilevel cervical degenerative disc and joint disease, as detailed level by level above. There is pfjh-bx-kwchjosx spinal canalstenosis at C5-C6 and moderate spinal canal stenosis at C6-C7 with multilevelneural foraminal stenosis, most pronounced and moderate on the left at C5-C6 andon the right at C6-C7. THIS IS AN ELECTRONICALLY VERIFIED FINAL REPORT 08/07/2023 3:11 PM - Electronically signed by Stephen ALLISON T: Report ID: [id number] Reading Location: [place] [address] Lamar Slater FIELD SERVICE MANAGER IMG MRI PROCEDURES Final Re sult documented in this encounter Visit Diagnoses Diagnosis Right cervical radiculopathy Foraminal stenosis of cervical region, left-sided C4-C5 and right-sided C6-C7 Arthropathy of cervical facet joint, multilevel DDD (degenerative disc disease), cervical, mild C4-C5, moderate C5-C7 Degeneration of cervical intervertebral disc Anterolisthesis of cervical spine, mild C4 on C5 documented in this encounter Care Teams Processing Clerk Relationship Specialty Start Date End Date Eron Holliday NP [address] [facility] [place] [address] PCP - General Pain Management 07/15/22 documented as of this encounter
--- OUTSIDE RECORDS SUMMARY | 2024-03-03 15:35 | XMS_ITS | Encounter Summary ---
Author Organization [facility] Address [address] [place] [address] Care Team Providers Care Rn Labor Delivery Name Role Phone Eron Holliday NP Primary Care Provider +1- [phone] Encounter Details Date Type Department Care Team (Late st Contact Info) Description 05/12/2023 Telephone [facility] Orthopedics and Sports Medicine [address] [place] [phone] Charleen Moe MA Social History Tobacco Use Types Packs/Day Years Used Date Smoking Tobacco: Former Cigarettes Q uit: 03/20/2020 Smokeless Tobacco: Never Personal Safety Answer Date Recorded Getting School Help Needed Not on file 02/13 Comments No Sex and Gender Information Value Date Recorded Sex Assigned at Not on file 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 Patient verbally understood. documented in this encounter Plan of Treatment Not on file documented as of this encounter Visit Diagnoses Not on filedocumented in this encounter Care Teams Rn Labor Delivery Relationship Specialty Start Date End Date Eron Holliday NP [address] [place] [address] [place] [id number] PCP - General Pain Management 07/15/22 documented as of this encounter
--- OUTSIDE RECORDS SUMMARY | 2024-03-03 15:35 | XMS_ITS | Encounter Summary ---
Author Organization [facility] Healthcare Address [address] [place] [address] Care Team Providers Care Sanitor Name Role Phone Eron Holliday NP Primary Care Provider +1- [phone] Reason for Referral * Consultation (Routine) - Closed Specialty Diagnoses / Procedures Referred By Claudette smith Referred To Contact Neurosurgery Diagnoses Right cervical radiculopathy Cervical stenosis of spinal canal Foraminal stenosis of cervical region 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 Arthropathy of cervical facet joint DDD (degenerative disc disease), cervical Anterolisthesis of cervical spine Lamar Slater NP [address] [address] Phone: tel: fax: Eloy Borden MD [address] [place] [address] Phone: tel: fax: Referral ID Status Reason Start Date Expiration Date V isits Requested Visits Authorized [id number] Closed Specialty Services Required 08/08/2023 09/06/2024 1 1 Question Answer Please select the performing region: [facility] [[id number]] Please select the performing department: [facility] [[id number]] To provider: ELOY BORDEN [[id number]] # of visits: 1 Comments Evaluate and treat Encounter Details Date Type Department Care Team (Late st Contact Info) Description 08/08/[address] [facility] Medical Group Orthopedics and Sports Medicine [address] [facility] [address] [place] [address] Lamar Slater NP [address] 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 At 8:54 am patient returned call patient was instructed that [facility] is recommending patient to see a neurosurgeon, Dr Borden for further evaluation. Dr Borden's office will contact patient to schedule appt. Patient verbally understood documented in this encounter Plan of Treatment Scheduled Referrals Name Type Priority Associated Diagnoses Orde r Schedule Ambulatory referral to Neurosurgery Outpatient Referral Routine Right cervical radiculopathy Cervical stenosis of spinal canal Foraminal stenosis of cervical region 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 Arthropathy of cervical facet joint DDD (degenerative disc disease), cervical Anterolisthesis of cervical spine Expected: 08/22/2023 (Approximate), Expires: 08/07/2024 documented as of this encounter Visit Diagnoses Diagnosis Right cervical radiculopathy- Primary Cervical stenosis of spinal canal Spinal stenosis in cervical region Foraminal stenosis of cervical region 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 Arthropathy of cervical facet joint DDD (degenerative disc disease), cervical Degeneration of cervical intervertebral disc Anterolisthesis of cervical spine documented in this encounter Care Teams Sanitor Relationship Specialty Start Date End Date Eron Holliday NP [address] [facility] [place] [address] PCP - General Pain Management 07/15/22 documented as of this encounter
--- OUTSIDE RECORDS SUMMARY | 2024-03-03 15:35 | XMS_ITS | Encounter Summary ---
Author Organization [facility] Address [address] [place] [address] Care Team Providers Care Associate Dentist Name Role Phone Eron Acevedo NP Primary Care Provider +1- [phone] Reason for Visit * Reason Comments PT Treatment * Physical Therapy (Routine) - Closed Specialty Diagnoses / Procedures Referred By Claudette t Referred To Contact Physical Therapy Diagnoses Chronic neck pain Arthropathy of cervical facet joint DDD (degenerative disc disease), cervical Foraminal stenosis of cervical region Anterolisthesis of cervical spine Numbness and tingling of right upper extremity Primary osteoarthritis, right shoulder Tendonitis of right infraspinatus tendon Lamar Slater, CHRISTOPHER [address] [address] Phone: tel: fax: [address] [phone] Referral ID Status Reason Start Date Expiration Date V isits Requested Visits Authorized [id number] Closed Evaluate and Treat 05/08/2023 05/07/2024 16 12 Encounter Details Date Type Department Care Team (Late st Contact Info) Description 05/20/2023 10:45 AM CDT Therapy [facility] Medical Office Bldg 1 OP Physical Therapy [address] [place] [address] Ninness, Misti, JEWELRY DRILLING MACHINE OPERATOR Numbness and tingling of right upper extremity [...] on file Legal 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 Physical Therapy Visit/Daily Note 05/20/2023 Sandy Lopez 1965 ICD-9-CM ICD-10-CM 1. Numbness [...] 726.10 M75.81 ERON ACEVEDO. Subjective: Pt reports she was pretty sore after the last visit. Pt mostly c/o of N/T in Rt UE. . Pt is reporting continued difficulty with the N/T in the rt UE and into the fingers with certain positions.. Pain today is 4/10, yesterday was a 5/10. Changes since last visit include slightly better overall., decreased pain. Objective: Objective Measurement/Observation: Added machines today, noted slight increase of discomfort/N/T inrt UE while performing rows on machine. Pt given v/c's for correct technique and good posture, she tends to engage the UT's too much at times. Specific exercises and treatment interventions are outlined on exercise worksheet document. Treatment Performed on This Visit: Manual Therapy (body part and techniques): yes, TDN by ADA Chaudhry Therapeutic Procedure/Exercise: AROM ex's for cervical to help with strength/ROM Modalities: yes, cervical Tx x15 mins HEP given: no, pt just got one 2 visits ago Patient education: on going, cues for correct technique with all ex's Assessment: Patient tolerated today's treatment fair, did have some ^ of N/T with rows. Patient demonstrates mm tightness which is contributing to difficulty with N/T in rt UE. Patient would benefit from additional skilled therapy services and demonstrates good prognosis to achieve stated goals. Goals Addressed This Visit: STG #2 Plan: Patient would benefit from the following modification on next visit: advance as able. Therapy will continue to address these impairments in order to progress towards functional goals. Misti Sepulveda PTA [facility] ATTENTION PHYSICIAN If you are unable to electronically sign this document, please print this document and sign below to certify this plan of care/treatment plan. By signing this document, I certify that I have reviewedthis plan of care and support the treatment. Please fax back to . Thank you. Provider Signature: Date: Cosigned by Jesse Pride PT at 05/20/2023 12:16 PM CDT * Misti Sepulveda PTA - 05/20/2023 10:45 AM CDT ICD-9-CM ICD-10-CM 1. Numbness and [...] Date Date Date Date Date 05/09/23 05/20/2023 Visit Number 1 3 ADDITIONAL HEP SHEETS ISSUED Chin Devonte 04/05 2 x10 2x10 Scap Add 15 TB Rows Red 20 Red x20 Red x20 CS Extension AROM 15 R Tricep Extension tubing (arm at side) Red 20 Red x20 3# 2x10 R Levator stretch 4x Seated Row Machine 20# 15x Lat Pull Down Machine 20# x15 CS Joint glide C6-C7 3 Sets R side glide TDN / STM EW PT EW, PT EW, PT Mechanical Traction Cervical Next visit 17# ON 9# OFF 17#on9#off Progress Note/Re-Cert TDN treatment utilized .30 x 40,50 mm J Type needles. Treatment site included: R C5 - T1 PVM x 3, RUT, R Levator, R Rhomboid minor STM performed to the treatment site after the TDN treatment documented in this encounter Plan of Treatment [...] tendon documented in this encounter Care Teams Associate Dentist Relationship Specialty Start Date End Date Eron Acevedo NP [address] [place] [address] PCP - General Pain Management 07/15/22 documented as of this encounter
--- OUTSIDE RECORDS SUMMARY | 2024-03-03 15:35 | XMS_ITS | Encounter Summary ---
Author Organization [facility] Address [address] [place] [address] Care Team Providers Care Engineering Design Supervisor Name Role Phone Eron Acevedo NP Primary Care Provider +1- [phone] Reason for Visit * Reason Comments PT [...] shoulder Tendonitis of right infraspinatus tendon Lamar Slaetr, CHRISTOPHER [address] [address] Phone: tel: fax: [address] [phone] Referral ID Status Reason Start Date Expiration Date V isits Requested Visits Authorized [id number] Closed Evaluate and Treat 05/08/2023 05/07/2024 16 12 Encounter Details Date Type Department Care Team (Late st Contact Info) Description 06/04/2023 8:[address] 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 Numbness [...] (8 weeks) Date Date Date Date Date Date 05/09/23 05/20/2023 05/27/23 05/30/23 06/04/23 Visit Number 1 3 4 6 ADDITIONAL HEP SHEETS ISSUED Chin Tucks 2/10 2 x10 2x10 2 x 10 2x10 Scap Add 15 10x 10 x x10 TB Rows Red 20 Red x20 Red x20 Red x 20 Red x 20 Red x20 CS Extension AROM 15 x10 R Tricep Extension tubing (arm at side) Red 20 Red x20 3# 2x10 Red x 20 Red Red x20 R Levator stretch 4x 4x 3x Seated Row Machine 20# 15x 20# 15 x both handles 20# 15 x both handles 20# x15 ea handle Lat Pull Down Machine 20# x15 20# 15x 20# 15 x 20# x15 CS Joint glide C6-C7 3 Sets R side glide TDN / STM EW PT EW, PT EW, PT NT NT EW, PT Mechanical Traction Cervical Next visit 17# ON 9# OFF 17#on9#off 17# on 9# off 17 17# on 9 off IFC CP H/L sweep Progress Note/Re-Cert TDN treatment utilized .30 x 40,50 mm J Type needles. Treatment site included: R C5 - T1 PVM x 3, RUT, R Levator, R Rhomboid minor ,STM performed to the treatment site after the TDN treatment * Nora Tapia PTA - 06/04/2023 8:30 AM CDT Images from the original note were not included. Physical Therapy Visit/Daily Note 06/04/2023 Sandy Don Lopez 1965 ICD-9-CM ICD-10-CM 1. Numbness and [...] right infraspinatus tendon 726.10 M75.81 ERON ACEVEDO Subjective: Pt reports her neck is really stiff today, she has been working 6 days in a row. Pt states the numbness in the first 4 fingers that is pretty constant. Pt is reporting continued difficulty with prolonged sitting, numbness in R hand, and repetitive forward reaching. Pain today is 4/10. Pt states thepain is pretty much a constant 4/10. Pt reports no changes since last visit. Objective: Objective Measurement/Observation: Minimal verbal cues for proper technique with scapular exerciseswith good follow through. Specific exercises and treatment interventions are outlined on exercise worksheet document. Treatment Performed on This Visit: Manual Therapy (body part and techniques): none Therapeutic Procedure/Exercise:strengthening and stretching CS/TS Modalities: cervical traction HEP given:none Patient education:continue with HEP Assessment: Patient tolerated today's treatment with a positive response to added stretches and exercsies. Patient demonstrates cervical tightness which is contributing to difficulty with limited mobility. Patient would benefit from additional skilled therapy services and demonstrates good prognosis to achieve stated goals. Goals Addressed This Visit: progressing good with all STG's Plan: Patient would benefit from the following modification on next visit: continue with POC as toleratedwith focus on strengthening and stretching CS and TS. Therapy will continue to address these impairments in order to progress towards functional goals. Nora Tapia, [facility] ATTENTION PHYSICIAN If you are [...] tendon documented in this encounter Care Teams Engineering Design Supervisor Relationship Specialty Start Date End Date Eron Acevedo NP [address] [place] [address] PCP - General Pain Management 07/15/22 documented as of this encounter
--- OUTSIDE RECORDS SUMMARY | 2024-03-03 15:35 | XMS_ITS | Encounter Summary ---
Author Organization [facility] Healthcare Address [address] [place] [address] Care Team Providers Care Occ Therapist Name Role Phone Eron Holliday NP Primary Care Provider +1- [phone] Reason for Visit * Diagnostic Imaging (Routine) - Pending Review Specialty Diagnoses / Procedures Referred By Claudette smith Referred To Contact Diagnoses Right hip pain Procedures XR Hip Right 2 or 3 Views W Pelvis XR Hip Right 1 View W Pelvis Regi Khan DO [address] [address] Phone: tel: fax: [address] [phone] Referral ID Status Reason Start Date Expiration Date V isits Requested Visits Authorized [id number] Pending Review 02/27/2023 03/28/2024 1 1 Encounter Details Date Type Department Care Team (Latest Contact Info) Description 02/27/2023 8:15 AM BILLET EXAMINER - 02/27/2023 11:59 PM BILLET EXAMINER Hospital Encounter [facility] MOB 1 DIAG IMG [address] [place] [address] Right hip pain Discharge Disposition: Discharge to home or self care Social History Tobacco Use Types Packs/Day Years Used Date Smoking Tobacco: Former Cigarettes Q uit: 03/20/2020 Smokeless Tobacco: Never Personal Safety Answer Date Recorded Getting School Help Needed Not on file 02/13 Comments No Sex and Gender Information Value Date Recorded Sex Assigned at Not on file Legal Sex Female 8:53 AM BILLET EXAMINER Gender Identity Female 12/26/2023 10:11 PM CDT [...] 10 mg tablet 10/18/2022 4 Dexcom G6 Fuller Brush Man miscIndications:T ype 2 diabetes mellitus with hyperglycemia, [...] e11.65 pump has failed 15 mL 5 02/21/2023 4 insulin lispro (HumaLOG) 100 unit/mL vial for injection USE PER INSULIN PUMP MAX OF 150 UNITS DAILY NEEDED 50 mL 2 11/20/2022 4 insulin pump cart,cont inf,BT (Omnipod Dash Pods, Gen 4,) cartridge CHANGE POD EVERY 48 HOURS 15 each 11 05/31/2022 4 insulin pump cart,cont inf,BT (Omnipod Dash Pods, Gen 4,) cartridge Omnipod Dash Pods (Gen 4) subcutaneous cartridge 4 medroxyPROGESTERo ne (PROVERA) 5 mg tablet [...] Name Priority Date/Time Associated Diagnosis Comments XR HIP RIGHT W PELVIS 2 OR 3 VIEWS Schedule Routine, Read Routine (OP Routine) 02/27/2023 8:31 AM BILLET EXAMINER Right hip pain documented in this encounter Results * XR Hip Right 2 or 3 Views W Pelvis (02/27/2023 8:31 AM BILLET EXAMINER) Anatomical Region Laterality Modality Lower Extremities, Hip, Pelvis Right C omputed Radiography 02/28/2023 12:4 1 PM BILLET EXAMINER Narrative 02/28/2023 1:20 PM BILLET EXAMINER EXAM DESCRIPTION: XR HIP RIGHT 2-3 VIEW W PELVIS REASON FOR STUDY: pain ?? Chronic pain ? FINDINGS: Two views submitted without comparison. There are no fractures. ??The femoral heads are well seated. ??There is mild bilateral hip osteoarthritis. ??Vascular stents and lumbar facet osteoarthritis is present. IMPRESSION: Mild bilateral hip osteoarthritis. Inferior lumbar facet osteoarthritis. THIS IS AN ELECTRONICALLY VERIFIED FINAL REPORT 02/28/2023 1:20 PM - Electronically signed by ??Lamont Hidalgo M.D. MF: [email or web address] D: ??02/28/2023 1:20 PM T: ??02/28/2023 1:20 PM Report ID: [id number] Reading Location: ??[id number] Procedure Note Lamont Hidalgo MD - 02/28/2023 EXAM DESCRIPTION: XR HIP RIGHT 2-3 VIEW W PELVIS REASON FOR STUDY: pain Chronic pain FINDINGS: Two views submitted without comparison. There are no fractures. The femoral heads are well seated. There is mild bilateral hip osteoarthritis. Vascular stents and lumbar facetosteoarthritis is present. IMPRESSION: Mild bilateral hip osteoarthritis. Inferior lumbar facet osteoarthritis. THIS IS AN ELECTRONICALLY VERIFIED FINAL REPORT 02/28/2023 1:20 PM - Electronically signed by Lamont Hidalgo M.D. MF: [email or web address] Report ID: [id number] Reading Location: [id number] us Regi Khan DO IMG XR PROCEDURES Final Result documented in this encounter Visit Diagnoses Diagnosis Right hip pain Pain in joint, pelvic region and thigh documented in this encounter Care Teams Occ Therapist Relationship Specialty Start Date End Date Eron Holliday NP [address] [place] [address] [place] [address] PCP - General Pain Management 07/15/22 documented as of this encounter
--- OUTSIDE RECORDS SUMMARY | 2024-03-03 15:35 | XMS_ITS | Encounter Summary ---
Author Organization [facility] Healthcare Address [address] [place] [address] Care Team Providers Care Rubber And Plastics Worker Name Role Phone Eron Holliday NP Primary Care Provider +1- [phone] Reason for Referral * MRI/CAT/PET Scan (Routine) - Closed Specialty Diagnoses / Procedures Referred By Contac t Referred To Contact Radiology Diagnoses Right cervical radiculopathy Foraminal stenosis of cervical region Arthropathy of cervical facet joint DDD (degenerative disc disease), cervical Anterolisthesis of cervical spine Procedures MRI Cervical Spine WO Contrast Lamar Slater NP [address] [place] [address] [address] Phone: tel: fax: [address] [phone] Referral ID Status Reason Start Date Expiration Date Visits Re quested Visits Authorized [id number] Closed 07/23/2023 07/22/2024 1 1 Reason for Visit * Reason Comments Pain Encounter Details Date Type Department Care Team (Late st Contact Info) Description 07/01/2023 2:30 PM CDT Office Visit [facility] Medicine [address] [place] [phone] Lamar Slater NP [address] [place] [address] [place] [address] Right cervical radiculopathy; Cervical stenosis of spinal canal, lnyo-tn-elcaiaix C5-C6, moderate C6-C7; Foraminal stenosis of cervical region, left-sided C4-C5 and right-sided C6-C7; 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 C4-C5, C5-C6, C6-C7; Arthropathy of cervical facet joint, multilevel, severe right C6-C7; DDD (degenerative disc disease), cervical, mild C4-C5, moderate C5-C7; Anterolisthesis of cervical spine, mild C4 on C5 Social History Tobacco Use Types Packs/Day Years Used Date Smoking Tobacco: Former Cigarettes Q uit: 03/20/2020 Smokeless Tobacco: Never Tobacco Cessation:Counseling Given: Not Answered Personal Safety Answer Date Recorded Getting School Help Needed Not on file 02/13 Comments No Sex and Gender Information Value Date Recorded Sex Assigned at Not on file 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 Gender Identity Female 12/26/2023 10:11 PM CDT Sexual Orientation Straight 12/26/2023 10 :11 PM CDT 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 Not on file Not on file Not on file documented as of this encounter Last Filed Vital Signs Vital Sign Reading Time Taken Comments Blood Pressure - - Pulse - - Temperature - - Respiratory Rate - - Oxygen Saturation - - Inhaled Oxygen Concentration - - Weight 98.9 kg (218 lb) 07/01/2023 2:27 PM CDT Height 165.1 cm (5' 5 ) 07/01/2023 2:27 PM CDT Body Mass Index 36.28 07/01/2023 2:27 PM CDT documented in this encounter Progress Notes * Lamar Slater NP - 07/01/2023 2:30 PM CDT Addendum August 08, 2023 I contacted Sandy Lopez by telephone regarding the results of her MRI cervical spine without contrast which was completed August 07, 2023. See below for more MRI cervical spine details. Plan: I have referred Sandy to Dr. Felipe Cox, neurosurgeon [facility] for further evaluation of her right cervical radiculopathy pain symptoms MRI cervical spine without contrast August 07, 2023, findings per radiologist Dr. Stephen Nguyen: FINDINGS: ALIGNMENT: Mild reversal of the cervical lordosis with mild C4 on C5 anterolisthesis and mild C7 onT1 anterolisthesis. Mild C5 on C6 retrolisthesis. VERTEBRAE: Normal vertebral body heights. No MR evidence for recent fracture or ligamentous injury.No prevertebral or paravertebral soft tissue swelling. No suspicious marrow signal DISCS: There is multilevel degenerative disc height loss, most pronounced and moderate at C5-C6 andC6-C7. There is mild disc height loss at additional levels. HARDWARE: None in the spine. CORD: Evaluation limited by motion and other artifacts on the axial sequence.. No cord signal abnormality identified. Normal cord caliber. INDIVIDUAL LEVELS: C1-C2: No significant spinal stenosis. C2-C3: Normal disc configuration. Moderate left and mild right facet arthropathy. Normal uncovertebral joints. No significant neural foraminal or spinal canal stenosis C3-C4: Disc bulge. Moderate left and mild right facet arthropathy. Normal uncovertebral joints. Mild left neural foraminal stenosis. No spinal canal stenosis C4-C5: Small posterior disc osteophyte complex. Moderate left and mild right facet arthropathy. Uqtl-dr-xsfnrrxr bilateral uncovertebral arthropathy. Mild bilateral neural foraminal stenosis. No significant spinal canal stenosis C5-C6: Posterior disc osteophyte complex. Jdfp-yj-iqtytjjk bilateral facet arthropathy. Moderate left and mild right uncovertebral arthropathy. Moderate left neural foraminal stenosis. Aqss-gz-dyoifjby spinal canal stenosis C6-C7: Posterior disc osteophyte complex moderate bilateral facet arthropathy. Severe right moderate bilateral uncovertebral arthropathy. Moderate right and ngdf-he-iuuogudu left neural foraminal stenosis. Moderate spinal canal stenosis C7-T1: Mild disc bulge. Mild facet and uncovertebral arthropathy. Mild left neural foraminal stenosis. No significant spinal canal stenosis BASE OF BRAIN: No significant finding. UPPER THORACIC: Incompletely imaged. No significant spinal stenosis or foraminal stenosis. OTHER: No other significant finding. IMPRESSION: Multilevel cervical degenerative disc and joint disease, as detailed level by level above. There is xpyk-rx-cfaorrwr spinal canal stenosis at C5-C6 and moderate spinal canal stenosis at C6-C7 with multilevel neural foraminal stenosis, most pronounced and moderate on the left at C5-C6 and on the right at C6-C7. Reason for Appointment 07/01/2023 Evaluation of neck pain with pain radiating down the right arm. History of Present Illness: Sandy Lopez is a 58 y.o. female arrived to the orthopedic department ambulatory, walking with no assisted devices. She is here today for evaluation of her right cervical radiculopathy pain symptoms after having outpatient physical therapy. Sandy reports having continued 5/10 dull, achy pain to the right posterior neck with the numbness, tingling sensation radiating into the right scapular regionand down the right arm to the pointer finger, long finger, ring finger, little finger. Her pain symptoms worsen with looking upward, looking down and turning her neck to the right. She had [facility] at [facility] along with cervical traction, dry needle therapy and exercises from May 08, 2023 through June 23, 2023 which she reports helps some but not complete reduction of right cervical radiculopathy pain symptoms. She currently uses methocarbamol, Vicodin (prescribed by her PMD). She does not use NSAIDs due to history of kidney disease. She previously also tried baclofen. She is under the care of Dr. Regi Khan, orthopedic surgeon for her right shoulder pain symptoms with her last evaluation by Dr. Khan June 24, 2022 and was diagnosed with tendinopathy of the rightrotator cuff, right scapular dysfunction. She is a diabetic and her A1c is 7.4 on April 28, 2023. She is on an insulin pump. 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 No personal history of cancer. Assessment: Diagnosis Plan 1. Right cervical radiculopathy MRI Cervical Spine WO Contrast 2. Cervical stenosis of spinal canal, bhbr-xl-flfomtrp C5-C6, moderate C6-C7 3. Foraminal stenosis of cervical region, left-sided C4-C5 and right-sided C6-C7 MRI Cervical SpineWO Contrast 4. 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 C4-C5, C5-C6, C6-C7 5. Arthropathy of cervical facet joint, multilevel, severe right C6-C7 MRI Cervical Spine WO Contrast 6. DDD (degenerative disc disease), cervical, mild C4-C5, moderate C5-C7 MRI Cervical Spine WO Contrast 7. Anterolisthesis of cervical spine, mild C4 on C5 MRI Cervical Spine WO Contrast Plan: For further evaluation of her right cervical radiculopathy pain symptoms-I have ordered an MRI of the cervical spine without contrast. Reason for MRI of the cervical spine without contrast: Continuedright cervical radiculopathy pain symptoms with concern for right C6-C7 dermatomal involvement. Shehas a positive Spurling's test on physical exam with increased right posterior neck pain with pain radiating down the right arm to the hand and fingers concerning for right C6-C7 dermatomal involvement. She does have foraminal stenosis of the cervical region at C6-C7 on x-ray. She also has multilevel degenerative disc disease and facet arthropathy on x-ray. She has failed conservative treatment including outpatient physical therapy from May 08, 2023 through June 23, 2023 at [facility] where she underwent cervical traction, dry needle therapy, exercises. She has failed medication management with the use of muscle relaxants, Vicodin and she does not use NSAIDs due to history of kidney disease. I have requested Sandy to follow up with me after she is completed her MRI of the cervical spine I discussed the importance of keeping tight blood sugar control. She does have an [...] right-sided C6-C7 foraminal im pingement. There is ldsy-nqnjhcm-joox-right cervical facet osteoarthritis. Right shoulder: No acute fractures are identified. Alignment is normal. There is mild glenohumeral and moderate acromioclavicular joint osteoarthritis. Infraspinatus calcific tendinitis is present. IMPRESSION: Mild C4-C5 and moderate C5-C7 degenerative disc disease with eaqp-mmgxwbe-pndc-right cervical facetosteoarthritis. Left-sided C4-C5 and right-sided C6-C7 foraminal impingement. Mild right glenohumeral and moderate acromioclavicular joint osteoarthritis. Right infraspinatus calcific tendinitis. EMG/NCS study right upper extremity 05/12/2023, conclusion [...] right upper extremity and cervical paraspinal muscles. Procedure: No procedures today Examination: Ortho Exam [...] <45??. Spurlings test produces increased posterior neck pain, predominantly on the right with pain radiating down right arm to the hand and fingers. Hoffmans test is negative. Lhermittes sign is negative. Sensation is present to the median, ulnar, radial, and axial distribution. [...] to the fifth finger, and exhibit full head of commission department strength Perfusion: 2+ radial and ulnar pulses. Fingers warm to touch with capillary refill < 2 seconds. Tinels Sign does not produce a numbness or tingling sensation in the thumb, index or middle finger.. Right Shoulder examination: Inspection: The skin is intact across the shoulders and upper extremities without clinical signs ofinfection, no ecchymosis, no overt evidence of muscle atrophy, no masses. Kokfv-tn-hvgylv: 170?? of forward flexion actively and passively. [...] Lungs: Unlabored breathing Neurological: Alert and oriented. Her speech is clear and appropriate. No presence of pronator drift. Good bbpscu-qz-nalv coordination. She walks independently with no assistive devices. Psych: Cooperative with exam. Pleasant demeanor. Allergies: Codeine, Nsaids (non-steroidal anti-inflammatory drug), and Ibuprofen Medications: Current Outpatient Medications: alcohol swabs pads, medicated, Apply 1 each topically 4 (four) times a day before meals and hiitpebV25.65, Disp: 400 each, Rfl: 3 aspirin 81 [...] mouth daily, Disp: , Rfl: Dexcom G6 Adoption Manager misc, USE TO TEST BLOOD SUGAR DIRECTED, [...] MOUTH TWICE A DAY WITH FOOD, Disp: 180 tablet, Rfl: 4 nystatin cream, , Disp: , Rfl: Omnipod Dash Pods, Gen 4, cartridge, Inject 1 Device under the skin daily E11.65, Disp: 30 each, Rfl: [address] (PROTONIX) 40 mg EC tablet, , Disp: , Rfl: pen needle, diabetic (TRUEplus [...] once as needed, Disp: , Rfl: tirzepatide (MOUNJARO) 7.5 mg/0.5 mL pen injector, Inject 7.5 mg under the skin once a week E11.65,Disp: 6 mL, Rfl: 4 zolpidem (AMBIEN) 10 [...] DDD (degenerative disc disease), cervical Depression Diabetes ([facility]) Dizziness Foraminal stenosis of cervical region GERD (gastroesophageal reflux disease) High blood pressure Type 1 diabetes mellitus ([facility]) 08/04/2018 Uncontrolled type 2 diabetes mellitus with hyperglycemia ([facility]) 03/14/2017 Uncontrolled type 2 diabetes mellitus with hyperglycemia, with long-term current use of insulin ([facility]) 04/03/2017 Past Surgical History: Past Surgical History: Procedure Laterality Date CARPAL TUNNEL RELEASE SECTION ELBOW SURGERY KNEE ARTHROSCOPY TONSILLECTOMY Social History: Social History Tobacco Use Smoking status: Former Current packs/day: 0.00 Types: Cigarettes Quit date: 03/20/2020 Years since quittin.3 Smokeless tobacco: Never Substance and Sexual Activity Drug use: Never Sexual activity: None Alcohol Use: Not At Risk (12/30/2018) Received from [facility] [place], [facility] [place] AUDIT-C Frequency of Alcohol Consumption: Never Average Number of Drinks: Not on file Frequency of Binge Drinking: Not on file Vital Signs: Height 165.1 cm (5' 5 ), weight 98.9 kg (218 lb), not currently . BMI Readings from Last 1 Encounters: 07/01/23 36.28 kg/m?? Lamar Slater NP documented in this encounter Plan of Treatment Not on file documented as of this encounter Results * MRI Cervical Spine [...] ??Moderate left and mild right facet arthropathy. ??Keaq-go-zccxnkrz bilateral uncovertebral arthropathy. ??Mild bilateral neural foraminal stenosis. ??No significant spinal canal stenosis C5-C6: ?? Posterior disc osteophyte complex. ??Ienv-hc-vhbxcymu bilateral facet arthropathy. ??Moderate left and mild right uncovertebral arthropathy. ?? Moderate left neural foraminal stenosis. ??Clze-oo-albkluff spinal canal stenosis C6-C7: ?? Posterior disc osteophyte complex moderate bilateral facet arthropathy. ??Severe right ??moderate bilateral uncovertebral arthropathy. ?? Moderate right and bbfg-hb-upozhbwz left neural foraminal stenosis. ??Moderate spinal canal [...] detailed level by level above. There is espo-ix-qjmimfsb spinal canal stenosis at C5-C6 and moderate spinal canal stenosis at C6-C7 with multilevel neural foraminal stenosis, most pronounced and moderate on the left at C5-C6 and on the right at C6-C7. THIS IS AN ELECTRONICALLY VERIFIED FINAL REPORT 08/07/2023 3:11 PM - Electronically signed by ??Stephen ALLISON D: ??08/07/2023 3:11 PM T: Report ID: [id number] Reading Location: ??[id number] Procedure Note Stephen Nguyen MD - 08/07/2023 [...] Moderate left and mild right facet arthropathy. Tcwo-ao-draueqhd bilateral uncovertebral arthropathy. Mild bilateral neural foraminal stenosis. No significantspinal canal stenosis C5-C6: Posterior disc osteophyte complex. Oyio-tx-vonychqj bilateralfacet arthropathy. Moderate left and mild right uncovertebral arthropathy. Moderate left neural foraminal stenosis. Tafe-oj-ajrqdaoi spinal canal stenosis C6-C7: Posterior disc osteophyte complex moderate bilateral facet arthropathy. Severe right moderate bilateral uncovertebral arthropathy. Moderate right and gyez-ah-weeuicgl left neural foraminal stenosis.Moderate spinal canal stenosis C7-T1: Mild disc bulge. Mild facet and uncovertebral arthropathy. Mildleft neural foraminal stenosis. No significant spinal canal stenosis BASE OF BRAIN: No significant finding. UPPER THORACIC: Incompletely imaged. No significant spinal stenosis or foraminal stenosis. OTHER: No other significant finding. IMPRESSION: Multilevel cervical degenerative disc and joint disease, as detailed level by level above. There is lyoo-yy-urcmuoqi spinal canalstenosis at C5-C6 and moderate spinal canal stenosis at C6-C7 with multilevelneural foraminal stenosis, most pronounced and moderate on the left at C5-C6 andon the right at C6-C7. THIS IS AN ELECTRONICALLY VERIFIED FINAL REPORT 08/07/2023 3:11 PM - Electronically signed by Stephen ALLISON T: Report ID: [id number] Reading Location: [place] [address] Lamar Slater CONTINUITY WRITER IMG MRI PROCEDURES Final Re sult documented in this encounter Visit Diagnoses Diagnosis Right cervical radiculopathy Cervical stenosis of spinal canal, ubrn-pz-tvujbdhb C5-C6, moderate C6-C7 Spinal stenosis in cervical region Foraminal stenosis of cervical region, left-sided C4-C5 and right-sided C6-C7 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 C4-C5, C5-C6, C6-C7 Arthropathy of cervical facet joint, multilevel, severe right C6-C7 DDD (degenerative disc disease), cervical, mild C4-C5, moderate C5-C7 Degeneration of cervical intervertebral disc Anterolisthesis of cervical spine, mild C4 on C5 Right cervical radiculopathy Foraminal stenosis of cervical region, left-sided C4-C5 and right-sided C6-C7 Arthropathy of cervical facet joint, multilevel DDD (degenerative disc disease), cervical, mild C4-C5, moderate C5-C7 Degeneration of cervical intervertebral disc Anterolisthesis of cervical spine, mild C4 on C5 documented in this encounter Care Teams Rubber And Plastics Worker Relationship Specialty Start Date End Date Eron Holliday NP [address] [place] [address] PCP - General Pain Management 07/15/22 documented as of this encounter
--- OUTSIDE RECORDS SUMMARY | 2024-03-03 15:35 | XMS_ITS | Encounter Summary ---
Author Organization [facility] Address [address] [place] [address] Care Team Providers Care Belt Molder Name Role Phone Eron Acevedo NP Primary Care Provider [phone]- [phone] Reason for Visit * Reason Comments PT [...] of right infraspinatus tendon Lamar Slater, CHRISTOPHER [address] [address] Phone: tel: fax: [address] [phone] Referral ID Status Reason Start Date Expiration Date V isits Requested Visits Authorized [id number] Closed Evaluate and Treat 05/08/2023 05/07/2024 16 12 Encounter Details Date Type Department Care Team (Late st Contact Info) Description 06/23/2023 2:15 PM CDT Therapy [facility] Bldg [facility] OP Physical Therapy [address] [place] [id number] Gutierrez Phillips, GENEVIEVE Numbness and tingling of right upper extremity (Primary Dx); Chronic neck pain; Arthropathy of cervical facet joint; DDD (degenerative disc disease), cervical, mild C4-C5, moderate C5-C7 Social History Tobacco Use Types Packs/Day Years Used Date Smoking Tobacco: Former Cigarettes Q uit: 03/20/2020 Smokeless Tobacco: Never Personal Safety Answer Date Recorded Getting School Help Needed Not on file 02/13 Comments No Sex and Gender Information Value Date Recorded Sex Assigned at Not on file 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 Numbness and tingling of right upper extremity R20.0 R20.2 2. Chronic neck pain M54.2 G89.29 3. Arthropathy of cervical facet joint M47.812 4. DDD (degenerative disc disease), cervical, mild C4-C5, moderate C5-C7 M50.30 ERON ACEVEDO PT Diagnosis: Cervical derangements Precautions: [...] Date Date Date Date Date Date Date 05/20/2023 05/27/23 05/30/23 06/04/23 06/12/23 06/17/23 06/23/23 Visit Number 3 [phone] 6 7 8 9 ADDITIONAL HEP SHEETS ISSUED UBE 4' 2 F/ 2 B 2 F / 2 B Chin Tucks 2x10 2 x 10 2x10 2/10 10 x Scap Add 10x 10 x x10 10 TB Rows Red x20 Red x 20 Red x 20 Red x20 Green 2/15 Blue 2/15 CS Extension AROM x10 10x R Tricep Extension tubing (arm at side) 3# 2x10 Red x 20 Red Red x20 Red 20 Gr 20 x R Levator stretch 4x 3x 3x 3 x Seated Row Machine 20# 15x 20# 15 x both handles 20# 15 x both handles 20# x15 ea handle 20# 15 ea handle 20# 15 x each handle 20# 15 x each Lat Pull Down Machine 20# x15 20# 15x 20# 15 x 20# x15 20# 15x 20# 15 x 20# 15 x Pec stretch door. 5 x CS Joint glide C6-C7 3 sets R lower side glide 1 set 4 min TDN / STM EW, PT NT NT EW, PT EW PT EW PT EW PT Mechanical Traction Cervical 17#on9#off 17# on 9# off 17 17# on 9 off 18# on 8# off 17# On 8# off 17# on 9 # off IFC CP H/L sweep Progress Note/Re-Cert EW PT TDN treatment utilized .30 x 40,50 mm J Type needles. Treatment site included: R C5 - T1 PVM x 3, RUT, R Levator, R Rhomboid minor ,STM performed to the treatment site after the TDN treatment Cosigned by Jesse Pride PT at 06/23/2023 5:11 PM CDT * Gutierrez Phillips PTA - 06/23/2023 2:15 PM CDT Images from the original note were not included. Physical Therapy Visit/Daily Note 06/23/2023 Sandy Florencia Jessica 1965 ICD-10-CM 1. Numbness and tingling of right upper extremity R20.0 R20.2 2. Chronic neck pain M54.2 G89.29 3. Arthropathy of cervical facet joint M47.812 4. DDD (degenerative disc disease), cervical, mild C4-C5, moderate C5-C7 M50.30 ERON ACEVEDO Subjective: Pt states pain is diminished. Pt is reporting continued difficulty with numbness from elbow into right hand. Pain today is 5/10 . Changes since last visit include no significant changes. Objective: Objective Measurement/Observation: limited cervical sidebending and rotation noted.. Pt tolerates all exercises with limited range and technique noted; no adverse effects. Pt displays continued numbness in arm and tenderness to palpation right scap region. Specific exercises and treatment interventions are outlined on exercise worksheet document. Treatment Performed on This Visit: Manual Therapy (body part and techniques): TDN per Jesse Pride. Therapeutic Procedure/Exercise: See exercise sheet. Modalities: Cervical Traction. HEP given: None. Patient education: Cueing given during exercise completion as needed.. Assessment: Patient tolerated today's treatment well with no adverse effects. Patient demonstrates decreased cervical ROM and right UE symptoms.. which is contributing to difficulty with functional mobility and ADLs. Patient would benefit from additional skilled therapy services and demonstrates good prognosis to achieve stated goals. Goals Addressed This Visit: Progressing towards STG 2-3 to improve cervical mobility and decreased symptoms.. Plan: Patient would benefit from the following modification on next visit: Continue to work on exercises and stretching to progress towards improved cervical mobility and decreased pain and numbness symptoms.. Therapy will continue to address these impairments in order to progress towards functional goals. Gutierrez Phillips PTA [facility] ATTENTION PHYSICIAN If you are unable [...] moderate C5-C7 Degeneration of cervical intervertebral disc documented in this encounter Care Teams Belt Molder Relationship Specialty Start Date End Date Eron Acevedo NP [address] [place] [address] [place] [address] PCP - General Pain Management 07/15/22 documented as of this encounter
--- OUTSIDE RECORDS SUMMARY | 2024-03-03 15:35 | XMS_ITS | Encounter Summary ---
Author Organization [facility] Medical Group Address [address] [place] [address] Care Team Providers Care Metal Casting Trades Worker Name Role Phone Eron Holliday NP Primary Care Provider [phone]- [phone] Reason for Visit * Reason Comments Diabetes Type 2 Encounter Details Date Type Department Care Team (Late st Contact Info) Description 10/29/2022 1:30 PM CDT Office Visit [facility] Medical [facility] Diabetes Endocrine Care of [address] [place] [address] Marialuisa Daniel, CHRISTOPHER [address] [facility] [address] [place] [address] Type 2 diabetes mellitus with hyperglycemia, with long-term current use of insulin ([facility]/HCC) (HCC) (Primary Dx); Hyperlipidemia associated with type 2 diabetes mellitus ([facility]); Omnipod Dash Insulin pump in place Social History Tobacco Use Types Packs/Day Years Used Date Smoking Tobacco: Former Cigarettes Q uit: 03/20/2020 Smokeless Tobacco: Never Tobacco Cessation:Counseling Given: Not Answered Comments No Sex and Gender Information Value Date Recorded Sex Assigned at Not on file 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 Gender Identity Female 12/26/2023 10:11 PM CDT Sexual Orientation Straight 12/26/2023 10 :11 PM CDT documented as of this encounter Last Filed Vital Signs Vital Sign Reading Time Taken Comments Blood Pressure 132/68 10/29/2022 1:48 PM CDT Pulse - - Temperature - - Respiratory Rate - - Oxygen Saturation - - Inhaled Oxygen Concentration - - Weight 100.1 kg (220 lb 9.6 oz) 10/29/2022 1:48 PM CDT Height 165.1 cm (5' 5 ) 10/29/2022 1:48 PM CDT Body Mass Index 36.71 10/29/2022 1:48 PM CDT documented in this encounter Patient Instructions * Patient Instructions* Marialuisa Daniel, CYLINDER BLOCK MECHANIC - 10/29/2022 1:30 PM CDT Thanks for coming in today. I am thankful you have trusted me with your care, and hope that you received EXCELLENT care today! Please do not hesitate to call if you have any questions or concerns at [phone]. You may receive a phone call or text asking about your care today. I would love to hear your input and again, hope your visit was as EXCELLENT as possible, even if you were not feeling your best! Medications: Please take medications as prescribed. Continue on omnipod Mobissimo insulin delivery system Continue metformin 1000mg twice a day. increase Jardiance 25 mg p.o. daily Switch Trulicity 4.5 mg to victoza 1.2 mg dailyly Monitoring: Check blood sugar continuously with DExcom 6. We will be requesting to see [...] than once per week. See the Dietitian, Senior Network Architect . Call Centralized Scheduling at [phone] to make an appointment. Exercise: Try moving [...] carbohydrate with you. documented in this encounter Ordered Prescriptions Prescription Sig Dispense Quantity Refills Last Filled Start Date End Date liraglutide (VICTOZA) 0.6 mg/0.1 mL (18 mg/3 mL) injectionIndicatio ns:type 2 diabetes mellitus Inject 1.2 mg under the skin daily Indications: type 2 diabetes mellitus E11,65 9 mL 3 10/29/2022 3 empagliflozin (Jardiance) 25 mg tabletIndications: heart failure associated with type 2 diabetes mellitus Take 1 tablet (25 mg total) by mouth daily 90 tablet 3 10/29/2022 4 documented in this encounter Progress Notes * Marialuisa Daniel NP - 10/29/2022 1:30 PM CDT Images from the original note were not included. Patient ID: Sandy Lopez is a 57 y.o. female. Chief Complaint Diabetes Type 2 Today visit is a follow up visit. She has Type 2 Diabetes associated with microalbuminurea. She does not exercises but stays active with family and friends. 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 She eats 2-3 meals/day. She monitors blood sugar by wearing the DexCom 6 sensor and receives insulin per the Omnipod insulin delivery system. She denies hypoglycemia. Her weight has increased by 5lbs since her last office visit. She just returned from [place] visiting her 1st grand son, named Kristian. She is very excited as she just found out her daughter is expecting as well. Today's visit is to review labs and discuss future plan. Diabetes regimen: continue Omnipod - continue 0000-2.65 ic-6, isf-20. AI-3 Metformin 1000mg twice aday. Increase Jardiance 25 mg p.o. daily. Will switch Trulicity to Victoza 1.2mg daily as she is not at goal. Failed Trulicity stopped 10/29/2022 Subjective/Objective Review of Systems Constitutional: Positive for [...] patient is not nervous/anxious. Physical Exam Constitutional: General: She is not in acute distress. Appearance: Normal appearance. She is obese. She is not ill-appearing. HENT: Head: Normocephalic. Right Ear: External ear normal. Left Ear: External ear normal. Nose: Nose normal. Mouth/Throat: Mouth: Mucous membranes are moist. Cardiovascular: Pulses: Normal pulses. Pulmonary: Effort: Pulmonary effort is normal. No respiratory distress. Feet: Right Foot: Monofilament exam: normal. Protective Sensation: 10 sites tested. 10 sites sensed. Left Foot: Monofilament exam: normal. Protective Sensation: 10 sites tested. 10 sites sensed. Skin: General: Skin is warm and dry. Neurological: Mental Status: She is alert and oriented to person, place, and time. Labs: Lab Results Component Value Date HGBA1C 7.6 10/29/2022 HGBA1C 7.1 (H) 07/19/2022 HGBA1C 7.1 07/15/2022 HGBA1C 7.2 04/15/2022 HGBA1C 6.5 12/28/2021 HGBA1C 7.7 09/13/2021 Chemistry Lab Results Component Value Date SODIUM 137 07/19/2022 POTASSIUM 5.0 (H) 09/23/2022 CHLORIDE 100 07/19/2022 CO2 25 07/19/2022 ANIONGAP 12 07/19/2022 BUNSER 20 07/19/2022 CREATININE 1.07 09/23/2022 GLUCOSE 106 07/19/2022 CALCIUM 10.9 (H) 07/19/2022 BILITOT 0.3 07/19/2022 ALBUMIN 4.5 07/19/2022 GFRNAA 61 09/23/2022 ALKPHOS 63 07/19/2022 AST 34 07/19/2022 ALT [...] hyperglycemia, with long-term current use of insulin ([facility]) ([facility]) (Primary) Assessment & Plan: This [...] 61 Kidney function- abnormal. Continue with Dr. Bahgat for nephrology Urine microalbumin/creatinine ratio - not at goal <30 not treated with KATIE/ARB. Continue with Dr. Olayinka Rosen/Nilton today- at goal of <140/90. Personally reviewed lipid panel. at Goal of less than 70. Continue atorvastatin and zetia. Orders: - POCT glucose - POCT hemoglobin A1c Hyperlipidemia associated with type 2 diabetes mellitus (HCC) Assessment & Plan: This is a chronic condition which is at goal of LDL less than 70 Continue atorvastatin and zetia Encouraged to eat healthy, include fresh fruits and vegetables daily and avoid eating fried foods more than once per week. Encouraged to take medications as prescribed. Omnipod Dash Insulin pump in place Assessment & Plan: This is a chronic condition which is at goal. Type of insulin pump-Omnipod dash insulin delivery system with DexCom 6 sensor with humalog Basal 0000-2.65 IC -6 ISF-20 Active insulin time 3hrs. TARGET GLUCOSE 110 Total daily dose of insulin-112 units Bolus- 49 units (44%) Basal- 63 units (56%) Interpretation-Average blood sugar is 200 Other orders - empagliflozin (Jardiance) 25 mg tablet; Take 1 tablet (25 mg total) by mouth daily - liraglutide (VICTOZA) 0.6 mg/0.1 mL (18 mg/3 mL) injection; Inject 1.2 mg under the skin daily Indications: type 2 diabetes mellitus E11,65 Discussed and educated on eating a healthy [...] and prescribed medications. No follow-ups on file. Marialiusa Daniel NP documented in this encounter Miscellaneous Notes * Assessment & Plan Note - Marialuisa Daniel NP - 10/29/2022 3:38 PM CDTAssociated Problem(s): Omnipod Dash Insulin pump in place This is a chronic condition which is at goal. Type of insulin pump-Omnipod dash insulin delivery system with DexCom 6 sensor with humalog Basal 0000-2.65 IC -6 ISF-20 Active insulin time 3hrs. TARGET GLUCOSE 110 Total daily dose of insulin-112 units Bolus- 49 units (44%) Basal- 63 units (56%) Interpretation-Average blood sugar is 200 * Assessment & Plan Note - Marialuisa Daniel NP - 10/29/2022 3:36 PM CDTAssociated Problem(s): Hyperlipidemia associated with type 2 diabetes mellitus (HCC) This is a chronic condition which is at goal of LDL less than 70 Continue atorvastatin and zetia Encouraged to eat healthy, include fresh fruits and vegetables daily and avoid eating fried foods more than once per week. Encouraged to take medications as prescribed. * Assessment & Plan Note - Marialuisa Daniel CYLINDER BLOCK MECHANIC - 10/29/2022 3:36 PM CDTAssociated Problem(s): Type 2 diabetes mellitus with hypoglycemia [...] not treated with KATIE/ARB. Continue with Dr. Olayinka Rosen/Nilton today- at goal of <140/90. Personally reviewed lipid panel. at Goal of less than 70. Continue atorvastatin and zetia. documented in this encounter Plan of Treatment Not on file documented as of this encounter Procedures Procedure Name Priority Date/Time Associated Diagnosis Comments POCT HEMOGLOBIN A1C Routine 10/29/2022 1 :53 PM CDT Type 2 diabetes mellitus with hyperglycemia, with long-term current use of insulin ([facility]) ([facility]) POCT GLUCOSE Routine 10/29/2022 1:48 PM CDT Type 2 diabetes mellitus with hyperglycemia, with long-term current use of insulin ([facility]) ([facility]) documented in this encounter Results * POCT hemoglobin A1c (10/29/2022 1:53 PM CDT) Hemoglobin A1C, POC 7.6 % Blood 10/29/2022 1:53 PM CDT Marialuisa Daniel NP POINT OF CARE TEST ORDERABLES F inal Result * POCT glucose (10/29/2022 1:48 PM CDT) Glucose Blood, POC 138 mg/dL Blood 10/29/2022 1:48 PM CDT Marialuisa Daniel NP POINT OF CARE TEST ORDERABLES F inal Result documented in this encounter Visit Diagnoses Diagnosis Type 2 diabetes mellitus with hyperglycemia, with long-term current use of insulin ([facility])- Primary Hyperlipidemia associated with type 2 diabetes mellitus ([facility]) Omnipod Dash Insulin pump in place Insulin pump status documented in this encounter Discontinued Medications Medication Sig Discontinue Reason Start Date End Da te dulaglutide (Trulicity) 4.5 mg/0.5 mL pen injectorIndications:typ e 2 diabetes mellitus Inject 0.5 mL (4.5 mg total) under the skin every 7 days E11.65 Therapy completed 07/16/2022 10/29/2022 albiglutide (TANZEUM SUBQ) 50 mg Therapy completed 10/29/2022 empagliflozin (Jardiance) 10 mg tablet Jardiance 10 mg tablet Reorder 10/29/2022 diphenhydrAMINE 25 mg capsule daily Therapy completed 07/29/2022 10/29/2022 documented as of this encounter Historical Medications * This list may reflect changes made after this encounter. Medication Sig Dispense Quantity Refills Last Filled Start D ate End Date cholecalciferol 25 mcg (1,000 unit) tablet 10/18/2022 11/20/2023 cyclobenzaprine (FLEXERIL) 10 mg tablet 10/18/2022 04/16/2023 added in this encounter Care Teams Metal Casting Trades Worker Relationship Specialty Start Date End Date Eron Holliday NP [address] [facility] [place] [address] PCP - General Pain Management 07/15/22 documented as of this encounter
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
--- OUTSIDE RECORDS SUMMARY | 2024-03-03 15:35 | XMS_ITS | Encounter Summary ---
Author Organization [facility] Healthcare Address [address] [place] [address] Care Team Providers Care Sour Bleaching Pleater Name Role Phone Eron Holliday NP Primary Care Provider +1- [phone] Encounter Details Date Type Department Care Team (Late st Contact Info) Description 04/28/2023 Telephone [facility] Medical Group Diabetes Endocrine Care of [address] [place] [address] Marialuisa Daniel, CHILD PSYCHOMETRIST [address] [facility] [address] [place] [address] Social History Tobacco Use Types Packs/Day Years Used Date Smoking Tobacco: Former Cigarettes Q uit: 03/20/2020 Smokeless Tobacco: Never Personal Safety Answer Date Recorded Getting School Help Needed Not on file 02/13 Comments No Sex and Gender Information Value Date Recorded Sex Assigned at Not on file 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 Gender Identity Female 12/26/2023 10:11 PM CDT Sexual Orientation Straight 12/26/2023 10 :11 PM CDT Occupation Industry Job Start Date Job End Date [employer] Not on file Not on file Not on file documented as of this encounter Ordered Prescriptions Prescription Sig Dispense Quantity Refills Last Filled Start Date End Date tirzepatide (Mounjaro) 5 mg/0.5 mL pen injectorIndication s:type 2 diabetes mellitus Inject 5 mg under the skin every 7 days E11.65 2 mL 3 04/28/2023 06/26/2023 documented in this encounter Miscellaneous Notes * Telephone Encounter - Marialuisa Daniel NP - 04/28/2023 1:06 PM CST Called patient. States that her blood sugars have been running higher. She has been having a hard time keeping the pods on. She has the pods off and has returned to injectable insulin. We will increase mounjaro to see if we can improve her insulin resistance. She verbalized understanding. Prescription was sent to the pharmacy. ICAL ECONOMIST documented in this encounter Plan of Treatment Not on file documented as of this encounter Visit Diagnoses Not on filedocumented in this encounter Discontinued Medications Medication Sig Discontinue Reason Start Date End Da te tirzepatide (Mounjaro) 2.5 mg/0.5 mL pen injectorIndications:type 2 diabetes mellitus Inject 0.5 mL (2.5 mg total) under the skin every 7 days E11.65. Therapy completed 02/28/2023 04/28/2023 documented as of this encounter Care Teams Sour Bleaching Pleater Relationship Specialty Start Date End Date Eron Holliday NP [address] [facility] [place] [address] PCP - General Pain Management 07/15/22 documented as of this encounter
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
--- OUTSIDE RECORDS SUMMARY | 2024-03-03 15:35 | XMS_ITS | Encounter Summary ---
Author Organization [facility] Address [address] [place] [address] Care Team Providers Care Video Systems Engineer Name Role Phone Eron Holliday NP Primary Care Provider [phone]- [phone] Reason for Referral * Diagnostic Imaging (Routine) - Closed Specialty Diagnoses / Procedures Referred By Contac t Referred To Contact Diagnoses Neck pain Procedures XR Spine Cervical W Flexion And Extension 6 or More Views Lamar Slater NP [facility] [address] TH[address] [place] [address] Phone: tel: fax: [address] [phone] Referral ID Status Reason Start Date Expiration Date Visits Re quested Visits Authorized [id number] Closed 04/04/2023 05/03/2024 1 1 E MAIL SYSTEM ADMINISTRATOR Reason for Visit * Diagnostic Imaging (Routine) - Closed Specialty Diagnoses / Procedures Referred By Claudette t Referred To Contact Diagnoses Neck pain Procedures XR Spine Cervical W Flexion And Extension 6 or More Views Lamar Slater NP [facility] [address]AKUR [address] [place] [address] Phone: tel: fax: [address] [phone] Referral ID Status Reason Start Date Expiration Date Visits Re quested Visits Authorized [id number] Closed 04/04/2023 05/03/2024 1 1 Encounter Details Date Type Department Care Team (Latest Contact Info) Description 04/16/2023 9:07 AM E MAIL SYSTEM ADMINISTRATOR - 04/16/2023 11:59 PM E MAIL SYSTEM ADMINISTRATOR Hospital Encounter [facility] [address] [place] [address] Neck pain; Right shoulder pain, unspecified chronicity Discharge Disposition: Discharge to home or self care Social History Tobacco Use Types Packs/Day Years Used Date Smoking Tobacco: Former Cigarettes Q uit: 03/20/2020 Smokeless Tobacco: Never Personal Safety Answer Date Recorded Getting School Help Needed Not on file 02/13 Comments No Sex and Gender Information Value Date Recorded Sex Assigned at Not on file Legal Sex Female 8:53 AM E MAIL SYSTEM ADMINISTRATOR Gender Identity Female 12/26/2023 10:11 PM CDT Sexual Orientation Straight 12/26/2023 10 :11 PM CDT Occupation Industry Job Start Date Job End Date [employer] Not on file Not on file Not [...] mg total) by mouth as needed 02/11/2022 Omnipod Dash Pods, Gen 4, cartridge Inject 1 Device under the skin daily E11.65 30 each 11 03/18/2023 pen needle, diabetic (TRUEplus Pen Needle) 32 [...] (1,000 unit) tablet 10/18/2022 4 Dexcom G6 Director Business Management miscIndications:T ype 2 diabetes mellitus with hyperglycemia, [...] DAILY NEEDED 50 mL 2 11/20/2022 4 medroxyPROGESTERo ne (PROVERA) 5 mg tablet 12/17/2021 4 metFORMIN (GLUCOPHAGE) 1,000 mg tablet TAKE 1 TABLET BY MOUTH TWICE A DAY WITH FOOD 60 tablet 11 07/30/2022 4 pediatric multivitamin-iron tablet,chewable Take by mouth 07/23/2018 4 semaglutide (Ozempic) 0.25 mg or 0.5 mg(2 mg/1.5 mL) pen injector injection Ozempic 0.25 mg or 0.5 mg(2 mg/1.5 mL) pen injector 09/07/2019 4 tirzepatide (Mounjaro) 2.5 mg/0.5 mL pen injectorIndicatio ns:type 2 diabetes mellitus Inject 0.5 mL (2.5 mg total) under the skin every 7 days E11.65. 2 mL 1 02/28/2023 4 documented as of this encounter Discharge Disposition Disposition Code Departure Means Destination Discharge to home or self care documented in this encounter Plan of Treatment Not on file documented as of this encounter Procedures Procedure Name Priority Date/Time Associated Diagnosis Comments XR SHOULDER RIGHT 2 OR MORE VIEWS Schedule Routine, Read Routine (OP Routine) 04/16/2023 9:18 AM E MAIL SYSTEM ADMINISTRATOR Right shoulder pain, unspecified chronicity XR SPINE CERVICAL W FLEXION AND EXTENSION 6 OR MORE VIEWS Schedule Routine, Read Routine (OP Routine) 04/16/2023 9:18 AM E MAIL SYSTEM ADMINISTRATOR Neck pain documented in this encounter Results * XR Shoulder Right 2 or More Views (04/16/2023 9:18 AM E MAIL SYSTEM ADMINISTRATOR) Anatomical Region Laterality Modality Upper Extremities, Shoulder Right Comp uted Radiography 04/16/2023 7:46 PM E MAIL SYSTEM ADMINISTRATOR Narrative 04/16/2023 7:51 PM E MAIL SYSTEM ADMINISTRATOR EXAM DESCRIPTION: XR SHOULDER RIGHT 2 OR [...] and right-sided C6-C7 foraminal impingement. ??There is hovx-vbpcpfu-wdrp-right cervical facet osteoarthritis. Right shoulder: No acute fractures are identified. ??Alignment is normal. ??There is mild glenohumeral and moderate acromioclavicular joint osteoarthritis. ?? Infraspinatus calcific tendinitis is present. IMPRESSION: Mild C4-C5 and moderate C5-C7 degenerative disc disease with kmyr-wwbnvqj-zqsl-right cervical facet osteoarthritis. Left-sided C4-C5 and right-sided C6-C7 foraminal impingement. Mild right glenohumeral and moderate acromioclavicular joint osteoarthritis. Right infraspinatus calcific tendinitis. THIS IS AN ELECTRONICALLY VERIFIED FINAL REPORT 04/16/2023 7:51 PM - Electronically signed by ??Lamont Hidalgo M.D. D: ??04/16/2023 7:51 PM T: Report ID: [id number] Reading Location: ??[id number] Procedure Note Lamont Hidalgo MD - 04/16/2023 [...] and right-sided C6-C7 foraminal impingement. There is duyg-xsbuqib-qxch-right cervical facetosteoarthritis. Right shoulder: No acute fractures are identified. Alignment is normal. There is mild glenohumeral and moderate acromioclavicular joint osteoarthritis. Infraspinatus calcific tendinitis is present. IMPRESSION: Mild C4-C5 and moderate C5-C7 degenerative disc disease with kmjx-oduwfen-clvh-right cervical facet osteoarthritis. Left-sided C4-C5 and right-sided C6-C7 foraminal impingement. Mild right glenohumeral and moderate acromioclavicular jointosteoarthritis. Right infraspinatus calcific tendinitis. THIS IS AN ELECTRONICALLY VERIFIED FINAL REPORT 04/16/2023 7:51 PM - Electronically signed by Lamont Hidalgo M.D. T: Report ID: [id number] Reading Location: [id number] Lamar Slater MACHINE GROUP LEADER IMG XR PROCEDURES Final Res ult * XR Spine Cervical W Flexion And Extension 6 or More Views (04/16/2023 9:18 AM E MAIL SYSTEM ADMINISTRATOR) Anatomical Region Laterality Modality Spine N/A Computed Radiogr aphy 04/16/2023 7:46 PM E MAIL SYSTEM ADMINISTRATOR Narrative 04/16/2023 7:51 PM E MAIL SYSTEM ADMINISTRATOR EXAM DESCRIPTION: XR SHOULDER RIGHT 2 OR [...] and right-sided C6-C7 foraminal impingement. ??There is sliq-ceqjinl-onkt-right cervical facet osteoarthritis. Right shoulder: No acute fractures are identified. ??Alignment is normal. ??There is mild glenohumeral and moderate acromioclavicular joint osteoarthritis. ?? Infraspinatus calcific tendinitis is present. IMPRESSION: Mild C4-C5 and moderate C5-C7 degenerative disc disease with cqbw-qopuhbj-prkl-right cervical facet osteoarthritis. Left-sided C4-C5 and right-sided C6-C7 foraminal impingement. Mild right glenohumeral and moderate acromioclavicular joint osteoarthritis. Right infraspinatus calcific tendinitis. THIS IS AN ELECTRONICALLY VERIFIED FINAL REPORT 04/16/2023 7:51 PM - Electronically signed by ??Lamont Hidalgo M.D. D: ??04/16/2023 7:51 PM T: Report ID: [id number] Reading Location: ??[id number] Procedure Note Lamont Hidalgo MD - 04/16/2023 [...] and right-sided C6-C7 foraminal impingement. There is yxta-ckdnmag-mmoy-right cervical facetosteoarthritis. Right shoulder: No acute fractures are identified. Alignment is normal. There is mild glenohumeral and moderate acromioclavicular joint osteoarthritis. Infraspinatus calcific tendinitis is present. IMPRESSION: Mild C4-C5 and moderate C5-C7 degenerative disc disease with fnge-edtaung-rxrb-right cervical facet osteoarthritis. Left-sided C4-C5 and right-sided C6-C7 foraminal impingement. Mild right glenohumeral and moderate acromioclavicular jointosteoarthritis. Right infraspinatus calcific tendinitis. THIS IS AN ELECTRONICALLY VERIFIED FINAL REPORT 04/16/2023 7:51 PM - Electronically signed by Lamont Hidalgo M.D. T: Report ID: [id number] Reading Location: [id number] Lamar Slater MACHINE GROUP LEADER IMG XR PROCEDURES Final Res ult documented in this encounter Visit Diagnoses Diagnosis Neck pain Cervicalgia Right shoulder pain, unspecified chronicity documented in this encounter Care Teams Video Systems Engineer Relationship Specialty Start Date End Date Eron Holliday NP [address] [place] [address] PCP - General Pain Management 07/15/22 documented as of this encounter
--- OUTSIDE RECORDS SUMMARY | 2024-03-03 15:35 | XMS_ITS | Encounter Summary ---
Author Organization [facility] Healthcare Address [address] [place] [address] Care Team Providers Care Housing Management Representative Name Role Phone Eron Holliday NP Primary Care Provider [phone] Reason for Referral * Diagnostic Imaging (Routine) - Closed Specialty Diagnoses / Procedures Referred By Claudette smith Referred To Contact Diagnoses Primary osteoarthritis of right knee Procedures XR Knee Right 3 Views Regi Khan DO [address] [facility] [facility] [address] [address] [place] [address] Phone: tel: fax: [address] [address] Referral ID Status Reason Start Date Expiration Date Visits Re quested Visits Authorized [id number] Closed 08/08/2023 09/06/2024 1 1 Reason for Visit * Reason Comments Pain Encounter Details Date Type Department Care Team (Late st Contact Info) Description 08/15/2023 11:30 AM CDT Office Visit [facility] Medical Group Orthopedics and Sports Medicine [address] [place] [phone] Regi Khan DO [address] [facility] [place] [address] Primary osteoarthritis of right knee (Primary Dx) Social History Tobacco Use Types Packs/Day Years Used Date Smoking Tobacco: Former Cigarettes Q uit: 03/20/2020 Smokeless Tobacco: Never Personal Safety Answer Date Recorded Getting School Help Needed Not on file 02/13 Comments No Sex and Gender Information Value Date Recorded Sex Assigned at Not on file Legal Sex Female 8:53 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 Preoperative H&P visit CHIEF COMPLAINT She had concerns including Pain of the Right Knee. HISTORY OF PRESENT ILLNESS Sandy Lopez is a 58 y.o. female who was seen today. They present with continued right knee pain that is 5/10. She previously had viscosupplementation on 02/27/2023 which did not help significantly she is interested in surgical intervention. She is a nonsmoker but does vape nicotine. She is a knowndiabetic with last A1c being 7.4. She states her knee pain inhibits her from walking long distances. She works taking [employer]. She does have a history of a stent in her right leg and is on aspirin and Plavix. Patient states she lives with her dad who could help her after surgery. PAST MEDICAL HISTORY She has a past medical history of Anxiety, Arthritis, Arthropathy of cervical facet joint, DDD (degenerative disc disease), cervical, Depression, Diabetes ([facility]), Dizziness, Foraminal stenosis of cervical region, GERD (gastroesophageal reflux disease), High blood pressure, Type 1 diabetes mellitus ([facility]) (08/04/2018), Uncontrolled type 2 diabetes mellitus with hyperglycemia ([facility]) (03/14/2017), and Uncontrolled type 2 diabetes mellitus with hyperglycemia, with long-term current use of insulin ([facility]) (04/03/2017). PAST SURGICAL HISTORY She has a past surgical history that includes section; Knee arthroscopy; Carpal tunnel release; Elbow surgery; and Tonsillectomy. MEDICATIONS She has a current medication list which includes the following prescription(s): aspirin, pediatric multivitamin-iron, ozempic, alcohol swabs, aspirin, atorvastatin, blood sugar diagnostic, blood-glucose meter, dexcom g7 sensor, dexcom g6 transmitter, buspirone, cetirizine, cholecalciferol, citalopram, clopidogrel, cyclobenzaprine, dexcom g6 return agent, dexcom g6 transmitter, dexcom g7 sensor, empagliflozin, [...] history on file. FAMILY HISTORY Family History Problem Relation Age of Onset [...] Knee Right 3 Views; Future I discussed continued conservative or operative treatment strategies and we elected to proceed withoperative treatment as the patient has exhausted appropriate conservative treatment strategies at this time. We discussed the risks associated with surgery, in plain terms which the patient could understand, which include but are not limited to wound complications, infection, loss of sensation surrounding the incision sites, continued pain, arthrofibrosis, infection, fracture, hardware failure, leg length/rotational discrepancy, foot drop, DVT, PE, loss of function of the limb and even . We also discussed the planned intraoperative surgical strategy [...] for perioperative infection prophylaxis Chemical DVT prophylaxis: We will follow the cad operator recommendations for restarting aspirin and Plavix postoperatively, most likely the day after surgery Patient will require a polar pack postoperatively and a CPM, wheeled walker and 3:1 commode on discharge Plan is for patient to be discharged to home with home health physical therapy Regi Khan DO 08/15/2023 Addendum: 12/27/2023 After further review of the patient's x-rays performed on 08/15/2023 there is noted narrowing of the medial compartment with osteophytes present about the proximal tibia and osteophytes present in the patellofemoral region consistent with moderate to severe osteoarthritis. Regi Khan DO Orthopedic Surgeon [facility] 08/26/2023 8:57 AM documented in this encounter Plan of Treatment Not on file documented as of this encounter Results * XR Knee Right 3 Views (08/15/2023 11:37 AM CDT) Anatomical Region Laterality Modality Lower Extremities, Knee Right Computed Radiography 08/16/2023 6:19 PM CDT Narrative 08/16/2023 6:20 PM CDT EXAM DESCRIPTION: XR KNEE RIGHT 3 VIEWS REASON FOR STUDY: PAIN ?? Chronic knee pain ?Hx of meniscuses and torn cartilage repair ?? TECHNIQUE: There are 3 ??radiographic view(s) of the ??right knee . COMPARISON: Prior exam 08/07/2022 FINDINGS: Normal mineralization. ??No fracture dislocation. ??Moderate joint space narrowing medial compartment. ??Trivial osteophyte formation patellofemoral joint. ??No effusion. ??Small enthesophyte quadriceps tendon insertion. Left knee is included in the weight-bearing view of the right. ?? Sism-og-pjbpcqiq joint space narrowing medial compartment. IMPRESSION: No acute fracture. Moderate osteoarthritis medial compartment right knee with trivial change of the patellofemoral joint. Mild osteoarthritis medial compartment left knee on more limited view. THIS IS AN ELECTRONICALLY VERIFIED FINAL REPORT 08/16/2023 6:20 PM - Electronically signed by ??Lamont SIMONS: KRISTYN D: ??08/16/2023 6:20 PM T: ??08/16/2023 6:20 PM Report ID: [id number] Reading Location: ??[id number] Procedure Note Lamont Conway MD - 08/16/2023 EXAM DESCRIPTION: XR KNEE RIGHT 3 VIEWS REASON FOR STUDY: PAIN Chronic knee pain Hx of meniscuses and torn cartilage repair TECHNIQUE: There are 3 radiographic view(s) of the right knee . COMPARISON: Prior exam 08/07/2022 FINDINGS: Normal mineralization. No fracture dislocation. Moderate joint space narrowing medial compartment. Trivial osteophyte formation patellofemoral joint. No effusion. Small enthesophyte quadriceps tendon insertion. Left knee is included in the weight-bearing view of the right. Ewfl-ex-uqbnbsfk joint space narrowing medial compartment. IMPRESSION: No acute fracture. Moderate osteoarthritis medial compartment right knee with trivial changeof the patellofemoral joint. Mild osteoarthritis medial compartment left knee on more limited view. THIS IS AN ELECTRONICALLY VERIFIED FINAL REPORT 08/16/2023 6:20 PM - Electronically signed by Lamont SIMONS Report ID: [id number] Reading Location: [id number] Regi Khan DO IMG XR PROCEDURES Final Result documented in this encounter Visit Diagnoses Diagnosis Primary osteoarthritis of right knee- Primary Primary osteoarthritis of right knee documented in this encounter Historical Medications * This list may reflect changes made after this encounter. blood-glucose transmitter (Dexcom G6 Transmitter) device insulin pump cart,cont inf,BT (Omnipod Dash Pods, Gen 4,) cartridge CHANGE OMNIPOD POD EVERY 48 HOURS blood-glucose sensor (Dexcom G7 Sensor) device 4 insulin lispro (HUMALOG KWIKPEN INSULIN SUBQ) 4 blood sugar diagnostic (ONETOUCH ULTRA BLUE TEST STRIP [facility]) USE TO CHECK BLOOD GLUCOSE 4 TIMES A DAY 4 aspirin 81 mg enteric coated tablet aspirin 81 mg tablet,delayed release (DR/EC) 01/08/2021 4 ergocalciferol, vitamin D2, 50 mcg (2,000 unit) capsule Take 2,000 Units by mouth daily 4 semaglutide (Ozempic) 0.25 mg or 0.5 mg(2 mg/1.5 mL) pen injector injection Ozempic 0.25 mg or 0.5 mg(2 mg/1.5 mL) pen injector 09/07/2019 4 pediatric multivitamin-iron tablet,chewable Take by mouth 07/23/2018 4 cyclobenzaprine (FLEXERIL) 10 mg tablet Take 1 tablet 3 times a day by oral route. 4 added in this encounter Care Teams Housing Management Representative Relationship Specialty Start Date End Date Eron Holliday NP [address] [place] [address] PCP - General Pain Management 07/15/22 documented as of this encounter
--- OUTSIDE RECORDS SUMMARY | 2024-03-03 15:35 | XMS_ITS | Encounter Summary ---
Author Organization [facility] Healthcare Address [address] [place] [address] Care Team Providers Care Part Time Receptionist Name Role Phone Eron Holliday NP Primary Care Provider [phone]- [phone] Reason for Visit * Reason Comments PT Initial Eval * Physical Therapy (Routine) - Closed Specialty Diagnoses / Procedures Referred By Contac t Referred To Contact Physical Therapy Diagnoses Primary osteoarthritis of right knee Regi Batres, [facility] [address] [address] Phone: tel: fax: [facility] OP Physical Therapy [address] [place] [address] Phone: tel: fax: Referral ID Status Reason Start Date Expiration Date V isits Requested Visits Authorized [id number] Closed Specialty Services Required 09/08/2023 09/17/2024 1 1 Encounter Details Date Type Department Care Team (Late st Contact Info) Description 09/08/2023 4:45 PM CDT Therapy [facility] OP Physical Therapy [address] [place] [address] Cheyenne Andrade, PT Primary osteoarthritis of right knee Social History Tobacco Use Types Packs/Day Years Used Date Smoking Tobacco: Former Cigarettes Q uit: 03/20/2020 Smokeless Tobacco: Never Personal Safety Answer Date Recorded Getting School Help Needed Not on file 02/13 Comments No Sex and Gender Information Value Date Recorded Sex Assigned at Not on file Legal Sex Female 8:53 AM 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 Pre-Op Total Knee Arthroplasty Physical Therapy Evaluation /Initial Certification 09/08/2023 Sandy Lopez 1965 58 y.o. female REGI BATRES ICD-10-CM 1. Primary osteoarthritis of right knee M17.11 Ambulatory referral order to Physical Therapy - PT Diagnosis: R knee pain Past Medical History: Diagnosis Date Anxiety Arthritis Arthropathy of cervical facet joint DDD (degenerative disc disease), cervical Depression Diabetes (HCC) Dizziness Foraminal stenosis of cervical region GERD (gastroesophageal reflux disease) High blood pressure Type 1 diabetes mellitus (HCC) 08/04/2018 Uncontrolled type 2 diabetes mellitus with hyperglycemia (HCC) 03/14/2017 Uncontrolled type 2 diabetes mellitus with hyperglycemia, with long-term current use of insulin (HCC) 04/03/2017 Past Surgical History: Procedure Laterality Date CARPAL TUNNEL RELEASE SECTION ELBOW SURGERY KNEE ARTHROSCOPY TONSILLECTOMY Precautions: none Survey Worker Services Utilized: NO Patient is identified by name and date of on this visit. Subjective Patient reports they will undergo a R TKA with Dr. Batres on 10/06/23. Patient's history of knee painbegan around 8 years ago. First tore meniscus and was told she needed a knee replacement but she was too young. 2-3 years ago slipped on ice and tore cartilage. Current pain ratin-6/10 At best pain ratin/10 At worst pain ratin/10 Exacerbating Factors: standing up after sitting for a long time Relieving Factors: rest, not doing anything Function Current Functional Deficits: standing, walking, stairs Prior Level of Function: Independent with activities of daily living including household and community activities, driving, and all work-related responsibilities. 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 Lives with: father Patient plans to go to home after surgery. Objective: Gait Assessment: pt ambulates without AD demonstrating wide ANUSHA and mild antalgia on R Knee AROM R L Knee flexion 127 deg. 135 deg. Knee extension 0 deg. 0 deg. Leg Strength R L Hip flexion 4/5 5/5 Hip abduction 4-/5 4/5 Knee extension 4/5 5/5 Knee flexion 5/5 5/5 Assessment: Physical therapy evaluation only. Patient will undergo a total knee arthroplasty. Patient is appropriate for physical therapy evaluation only, discharged to independent home exercise program to prepare for total knee arthroplasty. The patient verbalized understanding to all education provided. Short term goals to be met by 09/08/23 Patient will verbalize understanding to all education provided today- met Patient able to ask questions regarding upcoming procedure - met Patient instructed in home exercises, proper use of assistive device, and stair training - met Treatment performed this date: Physical therapy evaluation focused on patient and caregiver education. The following topics were discussed and the patient verbalized understanding to all education provided. -Gait training with front wheeled walker as well as single point cane -Stair training and safe ascent/descent of stairs to enter the home -Wound care/ surgical incision care -Home exercises with TKA handout provided, to be performed pre- and post- operatively. See exercise handout. -Ice modality: 20 minutes at a time, 3-5 times per day -Progression from inpatient to home health therapy and then to outpatient physical therapy. -Plan of care following total knee arthroplasty, expectations, precautions. -Safe use of adaptive equipment, need for adaptive equipment in the home. -Safe positioning, avoiding a pillow underneath of the knee following surgery. Plan: Patient will benefit from skilled therapy services 1 times per week for 1 week for therapeutic exercise and patient education. The patient is discharged to a home exercise program at this time to prepare for upcoming surgery. Cheyenne Andrade, PT, DPT [facility] Services ATTENTION PHYSICIAN If you are unable [...] Visit Diagnoses Diagnosis Primary osteoarthritis of right knee documented in this encounter Orders Outpatient Referral Count Last Ordered Date st Ordered Date AMB REFERRAL ORDER TO PHYSICAL THERAPY 1 documented in this encounter Care Teams Part Time Receptionist Relationship Specialty Start Date End Date Eron Holliday NP [address] [place] [address] PCP - General Pain Management 07/15/22 documented as of this encounter
--- OUTSIDE RECORDS SUMMARY | 2024-03-03 15:35 | XMS_ITS | Encounter Summary ---
Author Organization [facility] Healthcare Address [address] [place] [address] Care Team Providers Care Program Director Cable Television Name Role Phone Eron Holliday NP Primary Care Provider [phone]- [phone] Marialuisa Daniel NP Unavailable [phone] Leobardo Bhagat MD Unavailable [phone] Florin Dixon MD Unavailable Encounter Details Date Type Department Care Team (Late st Contact Info) Description 09/22/2023 Orders Only [facility] PreAdmission Testing [address] [place] [address] Lashay Garduno, RN Social History Tobacco Use Types Packs/Day Years [...] on file 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 Gender Identity Female 12/26/2023 10:11 PM CDT Sexual Orientation Straight 12/26/2023 10 :11 PM CDT Occupation Industry Job Start Date Job End Date [employer] Not on file Not on file Not on file documented as of this encounter Plan of Treatment Not on file documented as of this encounter Visit Diagnoses Not on filedocumented in this encounter Care Teams Program Director Cable Television Relationship Specialty Start Date End Date Eron Holliday NP [address] [place] [address] PCP - General Pain Management 07/15/22 Marialuisa Daniel NP [address] [place] [address] Nurse Practitioner Endocrinology Diabetes & Metabolism 09/22/23 Leobardo Bhagat MD [address] [place] [address] Consulting Physician Nephrology 09/22/23 [place] [address] [address] Consulting Physician Cardiovascular Disease 09/22/23 documented as of this encounter
--- OUTSIDE RECORDS SUMMARY | 2024-03-03 15:35 | XMS_ITS | Encounter Summary ---
Author Organization [facility] Healthcare Address [address] [place] [address] Care Team Providers Care Shader And Toner Name Role Phone Eron Holliday NP Primary Care Provider [phone] Reason for Referral * Physical Therapy (Routine) - Closed Specialty Diagnoses / Procedures Referred By Claudette smith Referred To Contact Physical Therapy Diagnoses Primary osteoarthritis of right knee Regi Khan DO [address] [place] [address] Phone: tel: fax: [facility] OP Physical Therapy [address] [place] [address] Phone: tel: fax: Referral ID Status Reason Start Date Expiration Date V isits Requested Visits Authorized [id number] Closed Specialty Services Required 09/08/2023 09/17/2024 1 1 Question Answer PTRFR PT Evaluate and Treat Therapy options discussed with patient? Yes Location provided for therapy services is: Patient requested/Patient preferred Please select the performing region: [facility] [[id number]] Please select the performing department: [facility] ON OP PT [[id number]] # of visits: 1 Comments Pre op total joint evaluation Encounter Details Date Type Department Care Team (Late st Contact Info) Description 08/19/2023 Orders Only [facility] Medical Group Orthopedics and Sports Medicine [address] [facility] [address] [place] [address] Regi Khan DO [address] [place] [address] [facility] [address] [place] [address] Primary osteoarthritis of right knee (Primary Dx) Social History Tobacco Use Types Packs/Day Years Used Date Smoking Tobacco: Former Cigarettes Q uit: 03/20/2020 Smokeless Tobacco: Never Personal Safety Answer Date Recorded Getting School Help Needed Not on file 02/13 Comments No Sex and Gender Information Value Date Recorded Sex Assigned at Not on file Legal Sex Female 8:53 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 Gender Identity Female 12/26/2023 10:11 PM CDT Sexual Orientation Straight 12/26/2023 10 :11 PM CDT 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 Not on file Not on file Not on file documented as of this encounter Plan of Treatment Scheduled Referrals Name Type Priority Associated Diagnoses Orde r Schedule Ambulatory referral order to Physical Therapy - Outpatient Referral Routine Primary osteoarthritis of right knee Expected: 09/02/2023 (Approximate), Expires: 08/18/2024 documented as of this encounter Visit Diagnoses Diagnosis Primary osteoarthritis of right knee- Primary documented in this encounter Care Teams Shader And Toner Relationship Specialty Start Date End Date Eron Holliday NP [address] [place] [address] [place] [address] PCP - General Pain Management 07/15/22 documented as of this encounter
--- OUTSIDE RECORDS SUMMARY | 2024-03-03 15:35 | XMS_ITS | Encounter Summary ---
Author Organization [facility] Healthcare Address [address] [place] [address] Care Team Providers Care Campus Monitor Name Role Phone Eron Holliday NP Primary Care Provider [phone]- [phone] Encounter Details Date Type Department Care Team (Late st Contact Info) Description 09/08/2023 Plan of Care Documentation [facility] OP Physical Therapy [address] [place] [address] Social History Tobacco Use Types Packs/Day Years Used Date Smoking Tobacco: Former Cigarettes Q uit: 03/20/2020 Smokeless Tobacco: Never Personal Safety Answer Date Recorded Getting School Help Needed Not on file 02/13 Comments No Sex and Gender Information Value Date Recorded Sex Assigned at Not on file Legal Sex Female 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
--- OUTSIDE RECORDS SUMMARY | 2024-03-03 15:35 | XMS_ITS | Encounter Summary ---
Author Organization [facility] Medical Group Address [address] [place] [address] Care Team Providers Care Telephonic Nurse Name Role Phone Eron Holliday NP Primary Care Provider [phone]- [phone] Reason for Visit * Reason Comments Pain Follow-up Encounter Details Date Type Department Care Team (Late st Contact Info) Description 11/19/2022 8:00 AM CDT Office Visit [facility] Medical [facility] Orthopedics and Sports Medicine [address] [place] [address] [address] [place] [address] Regi Khan DO [address] [place] [address] [address] [place], [place] [id number] Primary osteoarthritis of right knee (Primary Dx) Social History Tobacco Use Types Packs/Day Years Used Date Smoking Tobacco: Former Cigarettes Q uit: 03/20/2020 Smokeless Tobacco: Never Comments No Sex and Gender Information Value Date Recorded Sex Assigned at Not on file Legal Sex Female 8:53 AM [facility] Gender Identity Female 12/26/2023 10:11 PM CDT Sexual Orientation Straight 12/26/2023 10 :11 PM CDT documented as of this encounter Last Filed Vital Signs Vital Sign Reading Time Taken Comments Blood Pressure - - Pulse - - Temperature - - Respiratory Rate - - Oxygen Saturation - - Inhaled Oxygen Concentration - - Weight 96.6 kg (213 lb) 11/19/2022 8:12 AM CDT Height 165.1 cm (5' 5 ) 11/19/2022 8:12 AM CDT Body Mass Index 35.45 11/19/2022 8:12 AM CDT documented in this encounter Progress Notes * ErinRegi DO - 11/19/2022 8:00 AM CDT Images from the original note were not included. Follow-up visit CHIEF COMPLAINT She had concerns including Pain and Follow-up of the Right Knee. HISTORY OF PRESENT ILLNESS Sandy Lopez is a 57 y.o. female who was seen today for follow up. They present with 4/10 right knee pain. The previous had a corticosteroid injection on 08/07/2022 that helped for about a month but she is interested in viscosupplementation today. MEDICATIONS She has a current medication list which includes the following prescription(s): aspirin, atorvastatin, blood-glucose meter, buspirone, cetirizine, cholecalciferol, citalopram, clopidogrel, cyclobenzaprine, dexcom g6 paperhanger pipe, dexcom g6 sensor, dexcom g6 transmitter, empagliflozin, estradiol, ezetimibe, famotidine, fexofenadine, hydroxyzine, insulin lispro, humalog, omnipod dash pods (gen 4), omnipod dash pods (gen 4), insulin syringe-needle u-100, liraglutide, losartan-hydrochlorothiazide, meclizine, metformin, pen needle, diabetic, pen needle, diabetic, propranolol, sumatriptan, zolpidem, hyd rocortisone, lantus, medroxyprogesterone, and prednisone. ALLERGIES She is allergic to codeine, nsaids (non-steroidal anti-inflammatory drug), and ibuprofen. REVIEW OF SYSTEMS Constitutional: Positive for activity change Musculoskeletal: Positive for arthralgias PHYSICAL EXAM Ht 165.1 cm (5' 5 ) Wt 96.6 kg (213 lb) LMP (LMP Unknown) BMI 35.45 kg/m?? Right knee Inspection The patient has [...] of the left knee. REVIEW OF X-RAYS/STUDIES/LABS None today Assessment/Plan: 1. Primary osteoarthritis of right knee He was the patient that getting significant relief for more than a month with previous corticosteroid injections we discussed the utility of other conservative treatment strategies including viscosupplementation. The patient would like to undergo Euflexxa 3 series and I think this is very appropriate and we will work with her insurance to see if we can get this approved and I would like to see her back after it is approved so that we can start the series of injections at that time. We also discussed surgical intervention and the patient would like to hold off on that at this time. Regi Khan DO 11/19/2022 documented in this encounter Plan of Treatment Not on file documented as of this encounter Visit Diagnoses Diagnosis Primary osteoarthritis of right knee- Primary documented in this encounter Care Teams Telephonic Nurse Relationship Specialty Start Date End Date Eron Holliday NP [address] [facility] [place] [address] PCP - General Pain Management 07/15/22 documented as of this encounter
--- OUTSIDE RECORDS SUMMARY | 2024-03-03 15:35 | XMS_ITS | Encounter Summary ---
Author Organization [facility] Healthcare Address [address] [place] [address] Care Team Providers Care Industrial Specialist Name Role Phone Eron Holliday NP Primary Care Provider [phone]- [phone] Encounter Details Date Type Department Care Team (Late st Contact Info) Description 01/13/2023 Telephone [facility] Medical Group Orthopedics and Sports Medicine [address] [place] [phone] Nancy Yip MA Social History Tobacco Use Types Packs/Day Years Used Date Smoking Tobacco: Former Cigarettes Q uit: 03/20/2020 Smokeless Tobacco: Never Comments No Sex and Gender Information Value Date Recorded Sex Assigned at Not on file Legal Sex Female 8:53 AM JUNIOR COPYWRITER Gender Identity Female 12/26/2023 10:11 PM CDT Sexual Orientation Straight 12/26/2023 10 :11 PM CDT documented as of this encounter Miscellaneous Notes * Telephone Encounter - Nancy Yip MA - 01/13/2023 10:51 AM JUNIOR COPYWRITER LVM for Sandy to call me back about getting scheduled for Euflexxa sample injections she can be scheduled on 02/13, 02/21 ad 02/27 [place] in [place] COPYWRITER documented in this encounter Plan of Treatment Not on file documented as of this encounter Visit Diagnoses Not on filedocumented in this encounter Care Teams Industrial Specialist Relationship Specialty Start Date End Date Eron Holliday NP [address] [place] [address] [place] [address] PCP - General Pain Management 07/15/22 documented as of this encounter
--- OUTSIDE RECORDS SUMMARY | 2024-03-03 15:35 | XMS_ITS | Encounter Summary ---
Author Organization [facility] Healthcare Address [address] [place] [address] Care Team Providers Care Bilingual Middle School Teacher Name Role Phone Eron Holliday NP Primary Care Provider +1- [phone] Encounter Details Date Type Department Care Team (Late st Contact Info) Description 09/04/2023 Documentation [facility] OP Physical Therapy [address] [place] [id number] Flori Frias, PT Social History Tobacco Use Types Packs/Day Years Used Date Smoking Tobacco: Former Cigarettes Q uit: 03/20/2020 Smokeless Tobacco: Never Personal Safety Answer Date Recorded Getting School Help Needed Not on file 02/13 Comments No Sex and Gender Information Value Date Recorded Sex Assigned at Not on file Legal Sex Female 8:53 AM SENIOR PROJECT CONTROLS SPECIALIST Gender Identity Female 12/26/2023 10:11 PM CDT Sexual Orientation Straight 12/26/2023 10 :11 PM CDT 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 Numbness and tingling of right upper extremity R20.0 R20.2 2. Chronic neck pain M54.2 G89.29 3. Arthropathy of cervical facet joint M47.812 4. DDD (degenerative disc disease), cervical, mild C4-C5, moderate C5-C7 M50.30 due to patient has completed recommended therapy. Please refer to prior treatment/visit notes for objective findings and goal progress. Flori Frias, ADA [facility] documented in this encounter Plan of Treatment Not on file documented as of this encounter Visit Diagnoses Not on filedocumented in this encounter Care Teams Bilingual Middle School Teacher Relationship Specialty Start Date End Date Eron Holliday NP [address] [place] [address] PCP - General Pain Management 07/15/22 documented as of this encounter
--- OUTSIDE RECORDS SUMMARY | 2024-03-03 15:35 | XMS_ITS | Encounter Summary ---
Author Organization [facility] Healthcare Address [address] [place] [address] Care Team Providers Care Plastic Technician Name Role Phone Eron Holliday NP Primary Care Provider +1- [phone] Reason for Referral * Procedure (Routine) - Authorized Specialty Diagnoses / Procedures Referred By Claudette t Referred To Contact Diagnoses Primary osteoarthritis of right knee Procedures Large Joint (Hip, Knee, Shoulder) Injection: R knee Regi Khan DO [address] [place] [address] Phone: tel: fax: [facility] Medical Group Referral ID Status Reason Start Date Expiration Date V isits Requested Visits Authorized [id number] Authorized 02/27/2023 03/28/2024 1 1 PPING MACHINE OPERATOR Reason for Visit * Reason Comments Pain Pain Encounter Details Date Type Department Care Team (Latest Contact Info) Description 02/27/2023 9:30 AM STRAPPING MACHINE OPERATOR Clinical Support [facility] Medical Group Orthopedics and Sports Medicine [address] [place] [phone] Regi Khan DO [address] [place] [address] Right hip pain (Primary Dx); Greater trochanteric bursitis of right hip; Primary osteoarthritis of right hip; Primary osteoarthritis of right knee Social History Tobacco Use Types Packs/Day Years Used Date Smoking Tobacco: Former Cigarettes Q uit: 03/20/2020 Smokeless Tobacco: Never Personal Safety Answer Date Recorded Getting School Help Needed Not on file 02/13 Comments No Sex and Gender Information Value Date Recorded Sex Assigned at Not on file Legal Sex Female 8:53 AM STRAPPING MACHINE OPERATOR Gender Identity Female 12/26/2023 10:11 PM CDT Sexual Orientation Straight 12/26/2023 10 :11 PM CDT documented as of this encounter Progress Notes * Regi Khan, - 02/27/2023 9:30 AM CSTAssociated Order(s): Large Joint (Hip, Knee, Shoulder) Injection: R knee Post-Procedure Diagnose(s): Primary osteoarthritis of right knee Images from the original note were not included. Follow-up visit CHIEF COMPLAINT She had concerns including Pain of the Right Knee and Pain of the Right Hip. HISTORY OF PRESENT ILLNESS Sandy Lopez is a 57 y.o. female who was seen today for consultation requested by Eron Holliday NP. They present with 6/10 hip pain that is worse in the lateral aspect sometimes was radiating to her groin when she was getting up from a seated position. He was also here today for her 3rd Euflexxa injection in her right knee which is 2/10 painful today. PAST MEDICAL HISTORY She has a past medical history of Anxiety, Arthritis, Depression, Diabetes ([facility]), Dizziness, GERD (gastroesophageal reflux disease), High blood pressure, Type 1 diabetes mellitus ([facility]) (08/04/2018), Uncontrolled type 2 diabetes mellitus with hyperglycemia ([facility]) (03/14/2017), and Uncontrolled type 2diabetes mellitus with hyperglycemia, with long-term current use of insulin ([facility]) (04/03/2017). PAST SURGICAL HISTORY She has no past surgical history on file. MEDICATIONS She has a current medication list which includes the following prescription(s): alcohol swabs, aspirin, atorvastatin, blood-glucose meter, buspirone, cetirizine, cholecalciferol, citalopram, clopidogrel, cyclobenzaprine, dexcom g6 sinter press operator, dexcom g6 transmitter, dexcom g7 sensor, empagliflozin, [...] arthralgias PHYSICAL EXAM LMP (LMP Unknown) Right hip The patient has nomal inspection, palpation, range of motion, strength, and stability of the right hip. Inspection The patient has normal inspection of the right hip. Surgical scar/wound: absent. Limp: none Palpation Tenderness: present. The tenderness is located in the greater trochanter. Radiating pain: no. Pop or click: no. Range of motion The patient has normal range of motion of the right hip. The patient has pain with range of motion of the right hip. Strength The patient has 5/5 strength throughout. Right knee Inspection The patient has normal [...] the procedure well with no immediate complications REVIEW OF X-RAYS/STUDIES/LABS Multiple x-rays including AP pelvis and frog lateral of the right hip performed today and independently reviewed by me show mild right hip osteoarthritis with no sign of fracture or dislocation. Assessment/Plan: 1. Right hip pain - XR Hip Right 1 View W Pelvis; Future 2. Greater trochanteric bursitis of right hip 3. Primary osteoarthritis of right hip 4. Primary osteoarthritis of right knee - Large Joint (Hip, Knee, Shoulder) Injection: R knee I discussed the patient conservative treatment strategies for her greater trochanteric bursitis andright hip osteoarthritis elected to utilize Voltaren gel topically on the lateral aspect of the hip. I would like see her back on an as-needed basis for this if it does not improve we consider a corticosteroid injection over her greater trochanteric bursa or into her hip joint depending on her symptomatology at that time. Patient underwent anterolateral right knee 3rd Euflexxa injection today without obvious complication. I would like to see her back in 6 months for reassessment for her right knee osteoarthritis. Regi Khan DO 02/27/2023 PPING MACHINE OPERATOR documented in this encounter Plan of Treatment Not on file documented as of this encounter Procedures Procedure Name Priority Date/Time Associated Diagnosis Comments [place] ARTHROCENTESIS ASPIR&/INJ MAJOR JT/BURSA W/O US Routine 02/27/2023 9:30 AM STRAPPING MACHINE OPERATOR Primary osteoarthritis of right knee documented in this encounter Results * AZ ARTHROCENTESIS ASPIR&/INJ MAJOR JT/BURSA W/O US (02/27/2023 9:30 AM STRAPPING MACHINE OPERATOR) Narrative Regi Khan DO - 02/27/2023 9:30 AM STRAPPING MACHINE OPERATOR Regi Khan, DO ? 02/27/2023 ??9:09 AM Large Joint (Hip, Knee, Shoulder) Injection: [...] the procedure well with no immediate complications Regi Khan DO IN CLINIC/BEDSIDE ORDERABLES F inal Result documented in this encounter Visit Diagnoses Diagnosis Right hip pain- Primary Pain in joint, pelvic region and thigh Greater trochanteric bursitis of right hip Primary osteoarthritis of right hip Primary osteoarthritis of right knee documented in this encounter Administered Medications Inactive Administered Medications - up to 3 most recent administrations Medication Order MAR Action Action Date Dose Rate Site sodium hyaluronate (viscosup) (EUFLEXXA) 10 mg/mL(mw 2.4 -3.6 million) injection 20 mg 20 mg, One-Time Injection, Starting on Idania 02/27/23 at 0930, For 1 doseIndications:Primary osteoarthritis of right knee Given 02/27/2023 9:30 AM STRAPPING MACHINE OPERATOR 20 mg Right Knee documented in this encounter Orders Medications Ordered That Marcel ht Not Have Been Administered Count Last Ordered Date First Ordered Date sodium hyaluronate (viscosup ) (EUFLEXXA) 10 mg/mL(mw 2.4 -3.6 million) injection 20 mg 1 02/27/2023 documented in this encounter Care Teams Plastic Technician Relationship Specialty Start Date End Date Eron Holliday NP [address] [facility] [place] [address] PCP - General Pain Management 07/15/22 documented as of this encounter
--- OUTSIDE RECORDS SUMMARY | 2024-03-03 15:35 | XMS_ITS | Encounter Summary ---
Author Organization [facility] Healthcare Address [address] [place] [address] Care Team Providers Care Squirt Machine Operator Name Role Phone Eron Holliday NP Primary Care Provider [phone] Marialuisa Tyson NP Unavailable [phone] Leobardo Bhagat MD Unavailable [phone] Florin Dixon MD Unavailable Encounter Details Date Type Department Care Team (Latest Contact Info) Description 09/22/2023 11:00 AM CDT Pre-Admission Testing [facility] PreAdmission Testing [facility] [place] [address] Primary osteoarthritis of right knee; Preop testing; Pain in other specified joint; Elevated hemoglobin A1c; Preop examination Anesthesia Record Procedure Summary Procedure Name Responsible [...] 0920 An Extubation 0923 an stop data 0926 Out of Room 0932 Handoff to RN [...] No value filed. 0932 An Stop Meds * Agents No agents on file. * Blood No blood administrations on file. Lines, Drains, and Airways Type Details Placement Removal Pump Device 10/05/23; Yes; Left, Lower; Abdomen; Yes 10/05/23 0000 by Deborah Ortiz RN Wound 10/06/23; 0756; N; Incision; Knee; Anterior, Right; Right Total Knee Incision; Other (comment) (Surgical Site) 10/06/23 0756 by Carrie Tyson RN Peripheral IV Placement Date: 10/06/23; Placement Time: 06; Catheter Size: 20 G; Orientation: Anterior, Right; Location: Forearm; Site Prep: Chlorhexidine; Inserted by: Elvira reis rn; Insertion Attempts: 2 (missed attempt left hand); Patient Tolerance: Tolerated well; Removal Date: 10/07/23; Removal Time: 170; Removal Reason: Therapy completed 10/06/23 0640 by Elvira Reis, SARA 10/07/23 1700 by Tania Merritt RN Supraglottic Airway Placement Date: 10/06/23; Placement Time: 08 (created via procedure documentation); Mask Ventilation: 1; Size: 4; Insertion Attempts: 1; Comments: Grade 2b with DL and glidescope. Glidescope attempt abandoned due to glidescope powering down x3 during attempt, despite power supply/plugged in. 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 Not on file Not on file Not on file documented as of this encounter Last Filed Vital Signs Vital Sign Reading Time Taken Comments Blood Pressure 116/82 09/22/2023 10:56 AM CDT Pulse 74 09/22/2023 10:56 AM CDT Temperature 36.2 ??C (97.1 ??F) 09/22/2023 10:56 AM C DT Respiratory Rate 16 09/22/2023 10:56 AM CDT Oxygen Saturation 98% 09/22/2023 10:56 AM CDT Inhaled Oxygen Concentration - - Weight 94 kg (207 lb 4 oz) 09/22/2023 10:56 AM C DT Height 165.1 cm (5' 5 ) 09/22/2023 10:56 AM CDT Body Mass Index 34.49 09/22/2023 10:56 AM CDT documented in this encounter Miscellaneous Notes * Perioperative Nursing Note - Lashay Garduno RN - 09/22/2023 11:00 AM CDT TXA Screening Screen patient for contraindications and check all that apply: [] Allergy to tranexamic acid (absolute contraindication do not order IV or topical if patient reports allergy) [] Cardiac Stents within the past 12 months [] Renal Failure (SCR > 2.5 or CrCl < 25 ml/min) [] History of pulmonary embolism, ischemic stroke, or DVT [] Known heredity thrombophilia disorders (e.g. Antithrombin deficiency, Protein C or S deficiency,Factor V Leiden, prothrombin fragment mutation, or hyperhomocysteinemia) [] Acquired thrombophilia disorders (e.g. anti-cardiolipin antibodies, antiphospholipid syndrome, oral or parenteral anticoagulation that will not be held prior to surgery, , or hormone replacement therapy) [x] No Contraindications * Perioperative Nursing Note - Lashay Garduno RN - 09/22/2023 11:00 AM CDT Insulin Pump Screening tool Pt name SANDY LOPEZ DOS 10/06/2023 Surgery details: Surgeon: GISEL Type of surgery: TKR Arrival time: 8:45 AM Start time: 10:45 AM Length of surgery: 2 HOURS NPO status: AFTER MIDNIGHT EXCEPT CLEARS UNTIL 2 HOURS PRIOR [employer] Sales Representative: MARIALUISA TYSON [phone] (Please get phone number if possible) PUMP TYPE OMNI POD DASH Do you know your pump settings and can you change them? [x] Yes [] No Admission or outpatient surgery? [x] Admission [] Outpatient Do they wear Continuous Glucose Monitor? [x] Yes: DEXCOM 7 (Name of CGM) [] No Do you have Backup Long Acting Insulin at home? [] Yes: (Type) [x] No Recent A1C Result: 7.4 Lab Results Component Value Date HGBA1C 7.4 (H) 09/22/2023 Date of PAT Appointment: 09/22/2023 [x] When completed please email and send secure chat to , and [x] Add FYI about pump [x] Add Insulin Pump Plan Task [x] Add Pre-Surgery Diabetes Optimization Consult/Plan Task [x] Add Diabetic Pre-operative Optimization note (use smart phrase) CONSULT LEGAL ARCHIVIST IN PRE-OP ORDERS (NOT PAT) * Perioperative Nursing Note - Lashay Garduno RN - 09/22/2023 11:00 AM CDT Diabetic Preoperative Optimization Last HA1C result: 7.4 Lab Results Component Value Date HGBA1C 7.4 (H) 09/22/2023 2. Is HA1C greater than 8.5% ? [] Yes [x] No 3. ONLY If the HA1C is greater than 8.5%, the following MD's were notified: [] Surgeon [] PCP [] Anesthesia Please contact Maureen Hardy RN or Duyen Bergeron for further questions. Office: [phone] [facility] * Perioperative Nursing Note - Lashay Garduno RN - 09/22/2023 11:00 AM CDT Pt wears an omni pod dash insulin pump and a dexcom g7 CGM, this kind a pump is not a smart pump closed loop system that doses based on CGM. Pt instructed to reduce basal by 20% on the day of surgeryand set a temp basal called surgery for 12 hours as soon as she wakes up on dos. Pt instructed to come in with devices fully charged, in working order, with enough insulin, back supplies and away from surgical site, pt would like to continue to use pump during hospital stay. DE consult placed and instructions shared with Marialuisa Tyson, pt's ENDO * Pre-Procedure Instructions - Lashay Garduno RN - 09/22/2023 11:00 AM CDT Images from the original note were not included. [address] [address] Surgery Reminder Checklist: Please arrive to [facility] for scheduled surgery on FridayOctober 05 at 8:45 am. If the surgeon's office tells you to arrive at a different time after we have given you instructions, please follow their instructions. Please use Entrance A also known as [facility], then follow the signs for OutpatientSurgery. ONE - TWO WEEKS BEFORE YOUR PROCEDURE You may take TYLENOL (ACETAMINOPHEN) as needed for pain. PLEASE FOLLOW YOUR SURGEON'S GUIDELINES REGARDING IBUPROFEN, ALEVE, MULTIVITAMINS, HERBAL SUPPLEMENTS, FISH OIL AND VITAMIN E. YOU MAY BE REQUIRED TO TO HOLD THESE FOR 1-2 WEEKS BEFORE SURGERY. Anesthesia is requesting you to hold: Mounjaro for 7 days before surgery. Last dose on FridaySeptember 25 . EVENING BEFORE YOUR PROCEDURE Dinner time Shower with Antibacterial soap. After showering, do not apply any lotions, colognes, oils, deodorant, powder, or make-up. Antibacterial Soap Examples: Dial or Safeguard. Bedtime use all 6 wipes Follow Bathing instructions provided for chlorhexidine wipes evening beforesurgery. (Refer to Preparing the Skin handout in folder) DO NOT eat after midnight (this includes milk, orange juice gum, mints, hard candy, and chewable antacids). MORNING OF YOUR PROCEDURE MAKE SURE PUMP IS CLEAR OF SURGERY SITES, FULLY CHARGED AND IN WORKING CONDITION WITH ENOUGH INSULIN When you wake up on the day of surgery, activate temp basal rate for 12 hours 20% reduction of normal basal rate. Create a new temp basal, call it SURGERY May have clear liquids up until 8:00 AM. This includes, Water, Apple Juice, Gatorade, Black Coffee or Sprite. (NO Dairy, Milk Products, Creamer, Red Gatorade or Tunica Juice) Nothing by mouth the 4 hours prior to your procedure, NOT EVEN WATER. INSULIN AND BLOOD SUGAR INSTRUCTIONS FOR THE MORNING OF SURGERY Check blood sugar 2 hours prior to your arrival time on the morning of surgery For your safety, a blood sugar between 100-180 is the goal for surgery Please let your nurse know when you arrive to the hospital if you needed to treat blood sugar at home If blood sugar is less than 80 or you are symptomatic treat with 4 oz of clear liquids, examples include apple juice, Gatorade or sprite NOTHING BY MOUTH 4 HOURS PRIOR TO SURGERY START TIME If blood sugar is greater than 150 treat with insulin using your current correction scale and only drink sugar free clear liquids examples water, crystal light or diet sprite [place] your teeth morning of procedure. Use mouth wash if available. Do not swallow any liquids whencleansing your mouth. Expect to remove wigs, dentures/partials, contact lenses, piercings, hearing aids, and prostheses before surgery. Do not wear jewelry to the hospital on the day of surgery. Bring glasses and hearing aids (with cases for both), inhalers, and CPAP/BiPAP machine day of surgery. If you will be admitted to the hospital after surgery, feel free to bring a toiletry bag. ONLY TAKE THE FOLLOWING MEDICATIONS MORNING OF SURGERY: SEE LIST (you may take your medications with enough water to safely swallow them) Day of surgery: Do not swallow any water when you brush your teeth. ONLY take these pills with a tiny sip of water. Pre-Surgery Instructions: Medication Instructions aspirin 81 mg enteric coated tablet Stop taking 7 days prior to surgery atorvastatin (LIPITOR) 80 mg tablet Take as prescribed blood-glucose sensor (Genomera G7 Sensor) device WEAR TO DAY OF SURGERY SHOW TO THE NURSE busPIRone (BUSPAR) 5 mg tablet Take morning of surgery cholecalciferol 25 mcg (1,000 unit) tablet DO NOT TAKE DAY OF SURGERY citalopram (CeleXA) 20 mg tablet Take morning of surgery clopidogreL (PLAVIX) 75 mg tablet Stop taking 7 days prior to surgery, LAST DOSE 09/27 empagliflozin (Jardiance) 25 mg tablet Stop taking 4 days prior to surgery, LAST DOSE SATURDAY 09/30 ezetimibe (ZETIA) 10 mg tablet Take as prescribed famotidine (PEPCID) 20 mg tablet Take morning of surgery fexofenadine (ADELA) 180 mg tablet Take morning of surgery insulin lispro (HumaLOG) 100 unit/mL vial for injection FOLLOW PUMP INSTRUCTIONS losartan-hydroCHLOROthiazide (HYZAAR) 100-12.5 mg per tablet DO NOT TAKE DAY OF SURGERY meclizine (ANTIVERT) 25 mg tablet Take as prescribed metFORMIN (GLUCOPHAGE) 1,000 mg tablet DO NOT TAKE DAY OF SURGERY Omnipod Dash Pods, Gen 4, cartridge WEAR TO DAY OF SURGERY, BRING SUPPLIES pantoprazole DR (PROTONIX) 40 mg EC tablet Take morning of surgery propranoloL (INDERAL) 20 mg tablet Take morning of surgery SUMAtriptan (IMITREX) 50 mg tablet Take as prescribed Tab-A-Emily 400 mcg tablet Stop taking 7 days prior to surgery tirzepatide (MOUNJARO) 7.5 mg/0.5 mL pen injector Stop taking 7 days prior to surgery, LAST DOSE 09/25 zolpidem (AMBIEN) 10 mg tablet Take as prescribed VISITOR POLICY Patients in outpatient/surgical settings may have 2 dedicated visitors; children may be permitted as one of the 2 visitors, provided they are accompanied by a caregiver as the second visitor. Children can not be left unattended in the hospital setting. GENERAL INSTRUCTIONS: Please call us with any new prescriptions that were not discussed during your Pretesting Phone Call/Visit so that we can give you appropriate pre op instructions. DO NOT drink alcohol, smoke cigarettes/vapes/e-cigarettes during the 12 hours prior to your surgery. DO NOT use marijuana for 24 hours prior to surgery. DO NOT take illicit/illegal drugs of any kind for 7 days prior to surgery. Call your surgeon if you develop a rash, fever, cold, or any other signs/symptoms of infection prior to surgery. You must call your surgeon if you have signs or symptoms of COVID or FLU. If someone in your home tests positive for COVID please call your surgeon. Your surgery may need to be postponed. MORNING OF SURGERY PLEASE BRING: Photo ID, Insurance card. IODINATED NASAL SWAB MORNING OF SURGERY: You will receive an Iodinated nasal swab one hour prior toyour surgery on the morning of surgery. This is to reduce the bacteria in the nose which reduces the risk of infection after surgery. Any questions/concerns, please call Admission and Testing Center at [phone]. Morning of surgery question/concerns, please call Outpatient Surgery at [phone]. documented in this encounter Plan of Treatment Not on file documented as of this encounter Procedures Procedure Name Priority Date/Time Associated Diagnosis Comments TYPE AND SCREEN 14 DAY Routine 09/22/2023 11:11 AM CDT Primary osteoarthritis of right knee Preop testing EGFR Routine 09/22/2023 11:11 AM CDT Primary osteoarthritis of right knee Preop testing DIFFERENTIAL AUTO Routine 09/22/2023 11: 11 AM CDT Primary osteoarthritis of right knee Preop testing INFECTION PREVENTION MRSA ONLY (STAPHYLOCOCCUS AUREUS) PCR Routine 09/22/2023 11:11 AM CDT Primary osteoarthritis of right knee Preop testing CBC WITH AUTO DIFFERENTIAL Routine 09/22/2023 11:11 AM CDT Primary osteoarthritis of right knee Preop testing ABO/RH Routine 09/22/2023 11:11 AM CDT Primary osteoarthritis of right knee Preop testing NICOTINE METABOLITE SCREEN, URINE Routine 09/22/2023 11:11 AM CDT Primary osteoarthritis of right knee Preop testing PROTIME-INR Routine 09/22/2023 11:11 AM CDT Primary osteoarthritis of right knee Preop testing Pain in other specified joint ANTIBODY SCREEN Routine 09/22/2023 11:11 AM CDT Primary osteoarthritis of right knee Preop testing HEMOGLOBIN A1C Routine 09/22/2023 11:11 AM CDT Primary osteoarthritis of right knee Preop testing Elevated hemoglobin A1c COMPREHENSIVE METABOLIC PANEL Routine 09/22/2023 11:11 AM CDT Primary osteoarthritis of right knee Preop testing ECG 12-LEAD Routine 09/22/2023 11:02 AM CDT Preop examination documented in this encounter Results * eGFR (09/22/2023 11:11 AM CDT) [facility] Signature eGFR 63 >=60 mL/min/1. 73 m2 Comment: Interpretive Data [...] of Race in Diagnosing Kidney Disease, JASN 202). The CKD-EPI equation should not be used for patients with unstable renal function and has not been validated in children and those over 70. Current interpretive data was last reviewed 2020. Blood 09/22/2023 11:1 1 AM CDT 09/22/2023 11:56 AM CDT Regi Khan DO LAB BLOOD ORDERABLES Final Res ult [facility] [address] [facility] Department of Laboratories [place], [place] [id number] * Differential, auto (09/22/2023 11:11 AM CDT) Neutrophil abs 5.3 1.5 - 6.5 K/cumm Imm gran abs 0.0 0.0 - 0.1 K/cumm [facility] Lymphocyte abs 2.4 0.8 - 3.3 K/cumm [facility] Monocyte abs 0.5 0.2 - 0.8 K/cumm [facility] Eosinophil abs 0.2 0.0 - 0.5 K/cumm [facility] Basophil abs 0.1 0.0 - 0.1 K/cumm [facility] Neutrophil pct 62.7 % [facility] Comment: Interpretive Data Percent cell count reference ranges are not reported, since discordance with absolute values may lead to misinterpretation of CBC data. Current Interpretive Data was last revised on 2017. Imm gran pct 0.2 % [facility] Comment: Interpretive Data Percent cell count reference ranges are not reported, since discordance with absolute values may lead to misinterpretation of CBC data. Current Interpretive Data was last revised on 2017. Lymphocyte pct 28.4 % [facility] Comment: Interpretive Data Percent cell count reference ranges are not reported, since discordance with absolute values may lead to misinterpretation of CBC data. Current Interpretive Data was last revised on 2017. Monocyte pct 6.1 % [facility] Comment: Interpretive Data Percent cell count reference ranges are not reported, since discordance with absolute values may lead to misinterpretation of CBC data. Current Interpretive Data was last revised on 2017. Eosinophil pct 1.9 % [facility] Comment: Interpretive Data Percent cell count reference ranges are not reported, since discordance with absolute values may lead to misinterpretation of CBC data. Current Interpretive Data was last revised on 2017. Basophil pct 0.7 % [facility] Comment: Interpretive Data Percent cell count reference ranges are not reported, since discordance with absolute values may lead to misinterpretation of CBC data. Current Interpretive Data was last revised on 2017. Blood 09/22/2023 11:1 1 AM CDT 09/22/2023 11:18 AM CDT Expa LAB BLOOD ORDERABLES Final Res ult Performing Organization Address [facility] de Phone Number [address] [place] [address] * Antibody screen (09/22/2023 11:11 AM CDT) Kaity, indirect, Gel Interpretation Negative ABSC Blood 09/22/2023 11:1 1 AM CDT 09/22/2023 11:16 AM CDT Narrative [facility] - 09/22/2023 11:52 AM CDT Is this test being ordered in advance for a procedure?->Yes Expected date of procedure:->09/15/23 Has the patient been transfused in the past 3 months?->No Has the patient been in the past 3 months?->No Expa LAB BLOOD BANK TEST ORDERABLES Final Result Performing Organization Address [facility] Co de Phone Number [address] [place] [address] * ABO/Rh (09/22/2023 11:11 AM CDT) Pathologist [facility] [place] ABO/Rh A Positive Blood 09/22/2023 11:1 1 AM CDT 09/22/2023 11:16 AM CDT Maria T [place] - 09/22/2023 11:52 AM CDT Is this test being ordered in advance for a procedure?->Yes Expected date of procedure:->09/15/23 Has the patient been transfused in the past 3 months?->No Has the patient been in the past 3 months?->No Regi Khan DO LAB BLOOD BANK TEST ORDERABLES Final Result [facility] [address] [facility] [place] [address] * (ABNORMAL) Comprehensive metabolic panel (09/22/2023 11:11 AM CDT) Pathologist [facility] Sodium 138 135 - 145 mmol/L Potassium, pl 4.3 3.3 - 4.9 mmol/L [facility] Chloride 101 97 - 110 mmol/L [facility] CO2 21(L) 22 - 32 mmol/L [facility] Anion gap 16(H) 2 - 15 mmol/L [facility] BUN 22 6 - 25 mg/dL [facility] Creatinine 1.04 0.60 - 1.10 mg/dL [facility] Glucose 153 70 - 199 mg/dL [facility] Comment: Interpretive Data Fasting glucose >/= [...] interpretive data was last revised 2022. Calcium 10.3 8.5 - 10.3 mg/dL [facility] Bilirubin, total 0.3 0.1 - 1.2 mg/dL [facility] Protein, pl 7.2 6.5 - 8.5 g/dL [facility] Albumin 4.6 3.5 - 5.0 g/dL [facility] Alk phos 86 40 - 130 Units/L [facility] ALT 26 7 - 45 Units/L [facility] AST 33 10 - 45 Units/L [facility] Blood 09/22/2023 11:1 1 AM CDT 09/22/2023 11:18 AM CDT Expa LAB BLOOD ORDERABLES Final Res ult Performing Organization Address City/[facility] Co de Phone Number OLIVIA [address] [employer] [place], [place] [id number] * (ABNORMAL) CBC with auto differential (09/22/2023 11:11 AM CDT) WBC 8.4 3.8 - 9.9 K/cumm Hgb 13.0 11.9 - 15.5 g/dL [facility] Hct 41.6 35.6 - 45.5 % [facility] Plt 282 150 - 400 K/cumm [facility] MPV 10.5 9.1 - 12.3 fL [facility] RBC 4.79 3.90 - 5.20 M/cumm [facility] MCV 86.8 81.3 - 96.4 fL [facility] MCH 27.1 27.1 - 33.3 pg [facility] MCHC 31.3(L) 32.3 - 35.7 g/dL [facility] RDW CV 14.8 11.1 - 14.9 % [facility] RDW SD 47.0 35.7 - 48.1 fL [facility] NRBC abs 0.00 0.00 - 0.01 K/cumm [facility] Blood 09/22/2023 11:1 1 AM CDT 09/22/2023 11:18 AM CDT Expa LAB BLOOD ORDERABLES Final Res ult Performing Organization Address City/[facility]/ZIP Co de Phone Number OLIVIA [address] [place] [address] * (ABNORMAL) Hemoglobin A1c (09/22/2023 11:11 AM CDT) Hgb A1C 7.4(H) 4.0 - 5.6 % Estimated Average Glucose 166 mg/dL [facility] [place] Comment: The ADA recommends reporting an estimated Average Glucose (eAG) with all Hemoglobin A1c results using the equation derived from a study of 507 normal and diabetic adults. ??Minority populations were underrepresented and children were not included. ?? (Diabetes Care 31:3738-7620, 2007). ??The eAG is not equivalent to a fasting glucose. Blood 09/22/2023 11:1 1 AM CDT 09/22/2023 11:18 AM CDT Expa LAB BLOOD ORDERABLES Final Res ult Performing Organization Address [facility] Co de Phone Number [address] [place] [address] * Protime-INR (09/22/2023 11:11 AM CDT) PT 12.3 12.0 - 14.6 sec INR 0.9 0.9 - 1.2 [facility] Comment: Ref Range High Interpretive data Oral anticoagulant therapeutic ranges: Venous thromboembolism prophylaxis or treatment: 2.0-3.0 CARDIOLOGY Standard range: 2.0-3.0 High-intensity range: 2.5-3.5 Refer to indication-specific guidelines for appropriate target ranges for prosthetic heart valve replacement. Current interpretive data was last revised on 2019. Blood 09/22/2023 11:1 1 AM CDT 09/22/2023 11:18 AM CDT [employer] DO LAB BLOOD ORDERABLES Final Res ult Performing Organization Address [facility] Co de Phone Number [place] [id number] [facility] [employer] [place] [address] * (ABNORMAL) Nicotine metabolite screen, urine (09/22/2023 11:11 AM CDT) Nicotine, ur >1200(H) <5.0 ng/mL [facility] Cotinine, ur >1200(H) <5.0 ng/mL [facility] Anabasine ur <2.0 <2.0 ng/mL [facility] Comment: ADDITIONAL INFORMATION This test was developed and its performance characteristics determined by [facility] in a manner consistent with CLIA requirements. This test has not been cleared or approved by the U.S. Food and Drug Administration. Test Performed by: [facility] Laboratories - [facility] [address] [place] [id number] [employer] Interpreter: Nilsa Rendon Ph.D.; CLIA# [id number] Nornicotine, ur 31(H) <2.0 ng/mL [facility] Urine 09/22/2023 11:1 1 AM CDT 09/22/2023 12:30 PM CDT Regi Khan DO LAB URINE ORDERABLES Final Res ult [facility] [address] [facility] [place] [address] [facility] * Infection Prevention MRSA Only (Staphylococcus aureus) PCR Nasal (09/22/2023 11:11 AM CDT) Pathologist [facility] [place] PCR Scrn, Methicillin resistant Staphylococcus aureus (MRSA) Not Detected Not Detected Comment: Interpretive Data Testing performed using Nucleic Acid Amplification with the [employer] Xpert MRSA NxG Assay. This assay detects target DNA from mecA, mecC and the SCCmec insertion site of Staphylococcus aureus using Real-Time PCR and has been cleared by the FDA. Performance characteristics have been verified by the [facility]. Current Interpretive Data was last revised on 2022 Nasal 09/22/2023 11:1 1 AM CDT 09/22/2023 11:17 AM CDT Regi Khan DO LAB MICROBIOLOGY - GENERAL ORD ERABLES Final Result [facility] [place] [address] * ECG 12 lead (09/22/2023 11:02 AM CDT) Ventricular Rate EKG/Min [address] [facility] Atrial Rate 71 BPM [facility] SC-Interval (MSEC) 174 ms [facility] QRS-Interval (MSEC) 80 ms [facility] QT-Interval (MSEC) 392 ms [facility] QTc 425 ms [facility] P [place] 58 degrees [facility] R [place] -9 degrees [facility] T [place] 55 degrees [facility] Diagnosis Normal sinus rhythm Normal ECG No previous ECGs available Confirmed by SULTAN JOE M.D. ([id number]) on 09/22/2023 5:22:53 PM [facility] 09/22/2023 11:0 2 AM CDT 09/22/2023 5:22 PM CDT Almita Ramirez SLATE CUTTER OPERATOR ECG ORDERABLES Final Resu lt [facility] documented in this encounter Visit Diagnoses Diagnosis Primary osteoarthritis of right knee Preop testing Unspecified pre-operative examination Pain in other specified joint Elevated hemoglobin A1c Other abnormal blood chemistry Preop examination Unspecified pre-operative examination documented in this encounter Discontinued Medications Medication Sig Discontinue Reason Start Date End Da te semaglutide (Ozempic) 0.25 mg or 0.5 mg(2 mg/1.5 mL) pen injector injection Ozempic 0.25 mg or 0.5 mg(2 mg/1.5 mL) pen injector Alternate therapy 09/07/2019 09/22/2023 aspirin 81 mg enteric coated tablet aspirin 81 mg tablet,delayed release (DR/EC) Duplicate order 01/08/2021 09/22/2023 cetirizine (ZyrTEC) 10 mg tablet Take 1 tablet (10 mg total) by mouth daily Alternate therapy 12/05/2018 09/22/2023 cyclobenzaprine (FLEXERIL) 10 mg tablet Take 1 tablet 3 times a day by oral route. Therapy completed 09/22/2023 hydrOXYzine (ATARAX) 25 mg tablet Therapy completed 01/14/2022 09/22/2023 pediatric multivitamin-iron tablet,chewable Take by mouth Duplicate order 07/23/2018 09/22/2023 medroxyPROGESTERone (PROVERA) 5 mg tablet Therapy completed 12/17/2021 09/22/19 24 documented as of this encounter Historical Medications * This list may reflect changes made after this encounter. Tab-A-Emily 400 mcg tabletIndications :Vitamin Deficiency Prevention Take 1 tablet by mouth daily 08/27/2023 added in this encounter Care Teams Squirt Machine Operator Relationship Specialty Start Date End Date Eron Holliday NP [address] [place] [address] PCP - General Pain Management 07/15/22 Marialuisa Tyson NP [address] [place] [address] Nurse Practitioner Endocrinology Diabetes & Metabolism 09/22/23 Leobardo Bhagat MD [address] [place] [address] [address] Consulting Physician Nephrology 09/22/23 [place] [id number] [address] Consulting Physician Cardiovascular Disease 09/22/23 documented as of this encounter
--- OUTSIDE RECORDS SUMMARY | 2024-03-03 15:35 | XMS_ITS | Encounter Summary ---
Author Organization [facility] Healthcare Address [address] [place] [address] Care Team Providers Care Salesperson Women'S Hats Name Role Phone Eron Holliday NP Primary Care Provider +1- [phone] Encounter Details Date Type Department Care Team (Late st Contact Info) Description 08/26/2023 Orders Only 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
--- OUTSIDE RECORDS SUMMARY | 2024-03-03 15:35 | XMS_ITS | Encounter Summary ---
Author Organization [facility] Healthcare Address [address] [place] [address] Care Team Providers Care Demand Generator Manager Name Role Phone Eron Holliday NP Primary Care Provider +1- [phone] Reason for Referral * Procedure (Routine) - Pending Review Specialty Diagnoses / Procedures Referred By Claudette t Referred To Contact Diagnoses Primary osteoarthritis of right knee Procedures Large Joint (Hip, Knee, Shoulder) Injection: R knee Regi Khan DO [address] THAKUR [address] [place] [address] Phone: tel: fax: [facility] Referral ID Status Reason Start Date Expiration Date V isits Requested Visits Authorized [id number] Pending Review 02/13/2023 03/14/2024 1 1 ECTOR BULLET SLUGS Reason for Visit * Reason Comments Injections Euflexxa #1 (Sample) Encounter Details Date Type Department Care Team (Latest Contact Info) Description 02/13/2023 1:30 PM INSPECTOR BULLET SLUGS Clinical Support [facility] Orthopedics and Sports Medicine [address] [place] [phone] Regi Khan DO [address] [place] [address] Primary osteoarthritis of right knee [...] on file Legal Sex Female 8:53 AM INSPECTOR BULLET SLUGS Gender Identity Female 12/26/2023 10:11 PM CDT Sexual Orientation Straight 12/26/2023 10 :11 PM CDT documented as of this encounter Last Filed Vital Signs Vital Sign Reading Time Taken Comments Blood Pressure - - Pulse - - Temperature - - Respiratory Rate - - Oxygen Saturation - - Inhaled Oxygen Concentration - - Weight 99.8 kg (220 lb) 02/13/2023 1:23 PM INSPECTOR BULLET SLUGS Height 165.1 cm (5' 5 ) 02/13/2023 1:23 PM INSPECTOR BULLET SLUGS Body Mass Index 36.61 02/13/2023 1:23 PM INSPECTOR BULLET SLUGS documented in this encounter Progress Notes * Regi Khan, - 02/13/2023 1:30 PM CSTAssociated Order(s): Large Joint (Hip, Knee, Shoulder) Injection: R knee Post-Procedure Diagnose(s): Primary osteoarthritis of right knee Images from the original note were not included. Injection visit CHIEF COMPLAINT She had concerns including Injections of the Right Knee (Euflexxa #1 (Sample)). HISTORY OF PRESENT ILLNESS Sandy Lopez is a 57 y.o. female who was seen today for planned right knee 1st Euflexxa. Patient states there has been no significant change in their symptomatology since previous exam. PAST MEDICAL HISTORY She has a past medical history of Anxiety, Arthritis, Depression, Diabetes ([facility]), Dizziness, GERD (gastroesophageal reflux disease), High blood pressure, Type 1 diabetes mellitus ([facility]) (08/04/2018), Uncontrolled type 2 diabetes mellitus with hyperglycemia ([facility]) (03/14/2017), and Uncontrolled type 2diabetes mellitus with hyperglycemia, with long-term current use of insulin ([facility]) (04/03/2017). PAST SURGICAL HISTORY She has no past surgical history on file. MEDICATIONS She has a current medication list which includes the following prescription(s): alcohol swabs, aspirin, atorvastatin, blood-glucose meter, buspirone, cetirizine, cholecalciferol, citalopram, clopidogrel, cyclobenzaprine, dexcom g6 anesthesiologists' assistant, dexcom g6 transmitter, dexcom g7 sensor, empagliflozin, [...] for the next injection in the series. Regi Khan DO 02/13/2023 ECTOR [employer]ULLET SLUGS documented in this encounter Plan of Treatment Not on file documented as of this encounter Procedures Procedure Name Priority Date/Time Associated Diagnosis Comments NH ARTHROCENTESIS ASPIR&/INJ MAJOR JT/BURSA W/O US Routine 02/13/2023 1:30 PM INSPECTOR BULLET SLUGS Primary osteoarthritis of right knee documented in this encounter Results * NH ARTHROCENTESIS ASPIR&/INJ MAJOR JT/BURSA W/O US (02/13/2023 1:30 PM INSPECTOR BULLET SLUGS) Narrative Regi Khan DO - 02/13/2023 1:30 PM INSPECTOR BULLET SLUGS Regi Khan DO ? 02/13/2023 ??2:00 PM Large Joint (Hip, Knee, Shoulder) Injection: R [...] 20 mg, One-Time Injection, Starting on Idania 02/13/23 at 1330, For 1 doseIndications:Primary osteoarthritis of right knee Given 02/13/2023 1:30 PM INSPECTOR BULLET SLUGS 20 mg Right Knee documented in this encounter Discontinued Medications Medication Sig Discontinue Reason Start Date End Da te amoxicillin-clavulanate (AUGMENTIN) 875-125 mg per tablet 01/24/2023 02/13/2023 documented as of this encounter Care Teams Demand Generator Manager Relationship Specialty Start Date End Date Eron Holliday NP [address] [place] [address] [place] [address] PCP - General Pain Management 07/15/22 documented as of this encounter
--- OUTSIDE RECORDS SUMMARY | 2024-03-03 15:35 | XMS_ITS | Encounter Summary ---
Author Organization [facility] Healthcare Address [address] [place] [address] Care Team Providers Care Diversional Therapist Name Role Phone Eron Holliday NP Primary Care Provider +1- [phone] Encounter Details Date Type Department Care Team (Late st Contact Info) Description 04/28/2023 Telephone [facility] Diabetes Endocrine Care of [address] [place] [address] Marialuisa Daniel, PRINCIPAL LIBRARIAN [address] [facility] [address] [place] [address] Social History Tobacco Use Types Packs/Day Years Used Date Smoking Tobacco: Former Cigarettes Q uit: 03/20/2020 Smokeless Tobacco: Never Personal Safety Answer Date Recorded Getting School Help Needed Not on file 02/13 Comments No Sex and Gender Information Value Date Recorded Sex Assigned at Not on file Legal Sex Female 8:53 AM HOOKER 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 Gender Identity Female 12/26/2023 10:11 PM CDT Sexual Orientation Straight 12/26/2023 10 :11 PM CDT Occupation Industry Job Start Date Job End Date [employer] Not on file Not on file Not on file documented as of this encounter Miscellaneous Notes * Telephone Encounter - Tania Staley - 04/28/2023 11:17 AM CST She would like you to return her call regarding upping her Monjaro ER OPERATOR documented in this encounter Plan of Treatment Not on file documented as of this encounter Visit Diagnoses Not on filedocumented in this encounter Care Teams Diversional Therapist Relationship Specialty Start Date End Date Eron Holliday NP [address] [place] [address] [place] [address] PCP - General Pain Management 07/15/22 documented as of this encounter
--- OUTSIDE RECORDS SUMMARY | 2024-03-03 15:35 | XMS_ITS | Encounter Summary ---
Author Organization [facility] Address [address] [place] [address] Care Team Providers Care Hypo Dipper Name Role Phone Eron Acevedo NP Primary Care Provider +1- [phone] Reason for Visit * Reason Comments PT [...] of right infraspinatus tendon Lamar Slater, CHRISTOPHER [address] [address] Phone: tel: fax: [address] [address] Referral ID Status Reason Start Date Expiration Date V isits Requested Visits Authorized [id number] Closed Evaluate and Treat 05/08/2023 05/07/2024 16 12 Encounter Details Date Type Department Care Team (Late st Contact Info) Description 06/17/2023 7:45 AM CDT Therapy [facility] Medical Office Bldg 1 OP Physical Therapy [address] [place] [address] Gutierrez Phillips, GENEVIEVE Numbness and tingling [...] on file Legal Sex Female 8:53 AM NAVY 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 Numbness and tingling [...] weeks) Date Date Date Date Date Date 05/20/2023 05/27/23 05/30/23 06/04/23 06/12/23 06/17/23 Visit Number 3 4 6 7 8 ADDITIONAL HEP SHEETS ISSUED UBE 4' 2 F/ 2 B Chin Tucks 2x10 2 x [...] ea handle 20# 15 x each handle Lat Pull Down Machine 20# x15 20# 15x 20# 15 x 20# x15 20# 15x 20# 15 x CS Joint glide C6-C7 3 sets R lower side glide 1 set 4 min TDN / STM EW, PT NT NT EW, PT EW PT EW PT Mechanical Traction Cervical 17#on9#off 17# on 9# off 17 17# on 9 off 18# on 8# off 17# On 8# off IFC CP H/L sweep Progress Note/Re-Cert EW PT TDN treatment utilized .30 x 40,50 mm J Type needles. Treatment site included: R C5 - T1 PVM x 3, RUT, R Levator, R Rhomboid minor ,STM performed to the treatment site after the TDN treatment * Gutierrez Phillips PTA - 06/17/2023 7:45 AM CDT Images from the original note were not included. Physical Therapy Visit/Daily Note 06/17/2023 Sandy Don Lopez 1965 ICD-10-CM 1. Numbness and tingling of right upper extremity R20.0 R20.2 2. Chronic neck pain M54.2 G89.29 3. Arthropathy of cervical facet joint M47.812 4. DDD (degenerative disc disease), cervical, mild C4-C5, moderate C5-C7 M50.30 ERON ACEVEDO. Subjective: Pt states right UT and shoulder issues. Pt is reporting continued difficulty with repetitive forward reaching difficult. Pain today is 5/10. Changes since last visit include no significant changes. Objective: Objective Measurement/Observation: Sig tightness in sidebending. Pt tolerates all exercises with limited range and technique noted; no adverse effects. Pt displays cervical discomfort and tightness with tingling from right elbow into fingers. Specific exercises and treatment interventions are outlined on exercise worksheet document. Treatment Performed on This Visit: Manual Therapy (body part and techniques): STM.cervical region gentle mobes 4 min Therapeutic Procedure/Exercise: See exercise sheet. Modalities: Cervical [...] Goals Addressed This Visit: Progressing towards STG 1-3 to improve ROM and decreased symptoms into right UE. Plan: Patient would benefit from the following modification on next visit: Continue to work on exercises and stretching to progress towards improved cervical ROM and decreased right UE symptoms.. Therapy will continue to address these impairments in order to progress towards functional goals. Gutierrez Phillips PTA [facility] Services ATTENTION PHYSICIAN If you are unable to electronically sign this document, please print this document and sign below to certify this plan of care/treatment plan. By signing this document, I certify that I have reviewedthis plan of care and support the treatment. Please fax back to . Thank you. Provider Signature: Date: Cosigned by Jesse Pride PT at 06/19/2023 7:57 AM CDT documented in this encounter Plan of Treatment Not on file documented as of this encounter Visit Diagnoses Diagnosis Numbness and tingling of right upper extremity- Primary Chronic neck pain Cervicalgia Arthropathy of cervical facet joint DDD (degenerative disc disease), cervical, mild C4-C5, moderate C5-C7 Degeneration of cervical intervertebral disc documented in this encounter Care Teams Hypo Dipper Relationship Specialty Start Date End Date Eron Acevedo NP [address] [place] [address] [place] [address] PCP - General Pain Management 07/15/22 documented as of this encounter
--- OUTSIDE RECORDS SUMMARY | 2024-03-03 15:35 | XMS_ITS | Encounter Summary ---
Author Organization [facility] Healthcare Address [address] [place] [address] Care Team Providers Care Business Planning Analyst Name Role Phone Eron Holliday NP Primary Care Provider +1- [phone] Encounter Details Date Type Department Care Team (Late st Contact Info) Description 02/28/2023 Telephone [facility] Diabetes Endocrine Care of [address] [place] [address] Marialuisa Daniel, RESEARCH CLERK [address] [address] Social History Tobacco Use Types Packs/Day Years Used Date Smoking Tobacco: Former Cigarettes Q uit: 03/20/2020 Smokeless Tobacco: Never Personal Safety Answer Date Recorded Getting School Help Needed Not on file 02/13 Comments No Sex and Gender Information Value Date Recorded Sex Assigned at Not on file Legal Sex Female 8:53 AM CABLE PULLER Gender Identity Female 12/26/2023 10:11 PM CDT Sexual Orientation Straight 12/26/2023 10 :11 PM CDT documented as of this encounter Miscellaneous Notes * Telephone Encounter - Marialuisa Daniel NP - 02/28/2023 12:53 PM CST Called patient left message that prescription was sent for mounjaro. E PULLER documented in this encounter Plan of Treatment Not on file documented as of this encounter Visit Diagnoses Not on filedocumented in this encounter Care Teams Business Planning Analyst Relationship Specialty Start Date End Date Eron Holliday NP [address] [place] [address] [place] [address] PCP - General Pain Management 07/15/22 documented as of this encounter
--- OUTSIDE RECORDS SUMMARY | 2024-03-03 15:35 | XMS_ITS | Encounter Summary ---
Author Organization [facility] Healthcare Address [address] [place] [address] Care Team Providers Care Dental Nurse Name Role Phone Eron Holliday NP Primary Care Provider +1- [phone] Reason for Referral * Diagnostic Imaging (Routine) - Closed Specialty Diagnoses / Procedures Referred By Claudette smith Referred To Contact Diagnoses Primary osteoarthritis of right knee Procedures XR Knee Right 3 Views Regi Khan DO [facility] [address] THAKUR [address] [place] [address] Phone: tel: fax: [address] [phone] Referral ID Status Reason Start Date Expiration Date Visits Re quested Visits Authorized [id number] Closed 08/08/2023 09/06/2024 1 1 Reason for Visit * Diagnostic Imaging (Routine) - Closed Specialty Diagnoses / Procedures Referred By Claudette smith Referred To Contact Diagnoses Primary osteoarthritis of right knee Procedures XR Knee Right 3 Views Regi Khan DO [address] [facility] [address] THAKUR [address] [place] [address] Phone: tel: fax: [address] [phone] Referral ID Status Reason Start Date Expiration Date Visits Re quested Visits Authorized [id number] Closed 08/08/2023 09/06/2024 1 1 Encounter Details Date Type Department Care Team (Latest Contact Info) Description 08/15/2023 11:25 AM CDT - 08/15/2023 11:59 PM CDT Hospital Encounter [facility] MOB 1 DIAG IMG [address] [place] [address] Primary osteoarthritis of right knee Discharge Disposition: Discharge to home or self care Social History Tobacco Use Types Packs/Day Years Used Date Smoking Tobacco: Former Cigarettes Q uit: 03/20/2020 Smokeless Tobacco: Never Personal Safety Answer Date Recorded Getting School Help Needed Not on file 02/13 Comments No Sex and Gender Information Value Date Recorded Sex Assigned at Not on file Legal Sex Female 8:53 AM INTERNATIONAL ACCOUNTANT Gender Identity Female 12/26/2023 10:11 PM CDT Sexual Orientation Straight 12/26/2023 10 :11 PM CDT 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 on file Not on file Not [...] BY MOUTH DAILY 90 tablet 3 04/10/2023 blood-glucose transmitter (Dexcom G6 Transmitter) device citalopram [...] DAY WITH FOOD 180 tablet 4 06/30/2023 5 nystatin creamIndications: as needed for rash 04/30/2023 Omnipod Dash Pods, Gen 4, cartridge Inject 1 Device under the skin daily E11.65 30 each 11 03/18/[address] (PROTONIX) 40 mg EC [...] 81 mg tablet,delayed release (DR/EC) 01/08/2021 4 blood sugar diagnostic (ONETOUCH ULTRA BLUE TEST STRIP MIS) USE TO CHECK BLOOD GLUCOSE 4 TIMES A DAY 4 blood-glucose meter kitIndications:Un controlled type 2 diabetes mellitus with hyperglycemia, with long-term current use of insulin (HCC) Use daily or as directed for monitoring of diabetes 1 each 07/04/2017 4 blood-glucose sensor (Dexcom G7 Sensor) device 4 busPIRone (BUSPAR) 5 mg tablet Take 1 tablet (5 mg total) by mouth 2 (two) times a day 12/17/2021 4 cetirizine (ZyrTEC) 10 mg tablet Take 1 tablet (10 mg total) by mouth daily 12/05/2018 4 cholecalciferol 25 mcg (1,000 unit) tablet 10/18/2022 4 cyclobenzaprine (FLEXERIL) 10 mg tablet Take 1 tablet 3 times a day by oral route. 4 Dexcom G6 College Football Coach miscIndications:T ype 2 diabetes mellitus with hyperglycemia, with long-term current use of insulin ([facility]) USE TO TEST BLOOD SUGAR DIRECTED 1 each 1 08/22/2021 4 Dexcom G6 Transmitter deviceIndications :Type 2 diabetes mellitus with hyperglycemia, with long-term current use of insulin ([facility]) USE TO TEST BLOOD SUGAR TWICE A DAY 1 each 3 05/28/2022 4 Dexcom G7 Sensor device 1 Device continuously . Change every 10 days. E11.65 10 each 3 12/13/2022 4 empagliflozin (Jardiance) 25 mg tabletIndications :heart failure associated with type 2 diabetes mellitus Take 1 tablet (25 mg total) by mouth daily 90 tablet 3 10/29/2022 4 ergocalciferol, vitamin D2, 50 mcg (2,000 unit) capsule Take 2,000 Units by mouth daily 4 estradioL (ESTRACE) 0.5 mg tablet Take 1 tablet (0.5 mg total) by mouth daily 10/11/2018 4 hydrOXYzine (ATARAX) 25 mg tablet 01/14/2022 4 insulin lispro (HUMALOG KWIKPEN INSULIN SUBQ) 4 insulin lispro (HumaLOG) 100 unit/mL vial [...] VIEWS Schedule Routine, Read Routine (OP Routine) 08/15/2023 11:37 AM CDT Primary osteoarthritis of right knee documented in this encounter Results * XR [...] the weight-bearing view of the right. ?? Sueu-ew-[id number] joint space narrowing medial compartment. IMPRESSION: No acute fracture. Moderate osteoarthritis medial compartment right knee with trivial change of the patellofemoral joint. Mild osteoarthritis medial compartment left knee on more limited view. THIS IS AN ELECTRONICALLY VERIFIED FINAL REPORT 08/16/2023 6:20 PM - Electronically signed by ??Lamont SIMONS: KRISTYN D: ??08/16/2023 6:20 PM T: ??08/16/2023 6:20 PM Report ID: [id number] Reading Location: ??[id number] Procedure Note Lamont Conway MD - 08/16/2023 [...] in the weight-bearing view of the right. Rebx-do-[id number] joint space narrowing medial compartment. IMPRESSION: No acute fracture. Moderate osteoarthritis medial compartment right knee with trivial changeof the patellofemoral joint. Mild osteoarthritis medial compartment left knee on more limited view. THIS IS AN ELECTRONICALLY VERIFIED FINAL REPORT 08/16/2023 6:20 PM - Electronically signed by Lamont Conway M.D. MJ: KRISTYN Report ID: [id number] Reading Location: [id number] Regi Khan DO IMG XR PROCEDURES Final Result documented in this encounter Visit Diagnoses Diagnosis Primary osteoarthritis of right knee documented in this encounter Care Teams Dental Nurse Relationship Specialty Start Date End Date Eron Holliday NP [address] [place] [address] PCP - General Pain Management 07/15/22 documented as of this encounter
--- OUTSIDE RECORDS SUMMARY | 2024-03-03 15:35 | XMS_ITS | Encounter Summary ---
Author Organization [facility] Healthcare Address [address] [place] [address] Care Team Providers Care Stitch Bonder Machine Operator Helper Name Role Phone Eron Holliday NP Primary Care Provider [phone]- [phone] Encounter Details Date Type Department Care Team (Late st Contact Info) Description 09/04/[address] [address] Delma Morgan RN Social History Tobacco Use Types Packs/Day Years Used Date Smoking Tobacco: Former Cigarettes Q uit: 03/20/2020 Smokeless Tobacco: Never Personal Safety Answer Date Recorded Getting School Help Needed Not on file 02/13 Comments No Sex and Gender Information Value Date Recorded Sex Assigned at Not on file Legal Sex Female 8:53 AM PRELIMINARY SCHOOL PSYCHOLOGIST Gender Identity Female 12/26/2023 10:11 PM CDT Sexual Orientation Straight 12/26/2023 10 :11 PM CDT 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 Patient plans discharge to home. documented in this encounter Plan of Treatment Not on file documented as of this encounter Visit Diagnoses Not on filedocumented in this encounter Care Teams Stitch Bonder Machine Operator Helper Relationship Specialty Start Date End Date Eron Holliday NP [address] [facility] [place] [address] PCP - General Pain Management 07/15/22 documented as of this encounter
--- OUTSIDE RECORDS SUMMARY | 2024-03-03 15:35 | XMS_ITS | Encounter Summary ---
Author Organization [facility] Healthcare Address [address] [place] [address] Care Team Providers Care Voice Studies Director Name Role Phone Eron Holliday NP Primary Care Provider [phone]- [phone] Reason for Visit * Reason Comments Diabetes Type 2 Encounter Details Date Type Department Care Team (Late st Contact Info) Description 06/26/2023 8:00 AM CDT Office Visit [facility] [address] [place] [address] Marialuisa Daniel, CHRISTOPHER [address] [address] Type 2 diabetes mellitus with hyperglycemia, with long-term current use of insulin (HCC) (Primary Dx); Hypertension associated with type 2 diabetes mellitus (HCC); Hyperlipidemia associated with type 2 diabetes mellitus (HCC); Class 2 severe obesity due to excess calories with serious comorbidity and body mass index (BMI) of 36.0 to 36.9 in adult (HCC) Social History Tobacco Use Types Packs/Day Years Used Date Smoking Tobacco: Former Cigarettes Q uit: 03/20/2020 Smokeless Tobacco: Never Tobacco Cessation:Counseling Given: Not Answered Personal Safety Answer Date Recorded Getting School Help Needed Not on file 02/13 Comments No Sex and Gender Information Value Date Recorded Sex Assigned at Not on file Legal Sex Female 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 Gender Identity Female 12/26/2023 10:11 PM CDT Sexual Orientation Straight 12/26/2023 10 :11 PM CDT 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 Not on file Not on file Not on file documented as of this encounter Last Filed Vital Signs Vital Sign Reading Time Taken Comments Blood Pressure 120/68 06/26/2023 8:23 AM CDT Pulse - - Temperature - - Respiratory Rate - - Oxygen Saturation - - Inhaled Oxygen Concentration - - Weight 99.3 kg (218 lb 14.4 oz) 06/26/2023 8:09 AM CDT Height 165.1 cm (5' 5 ) 06/26/2023 8:09 AM CDT Body Mass Index 36.43 06/26/2023 8:09 AM CDT documented in this encounter Patient Instructions * Patient Instructions* Marialuisa Daniel, HEALTHCARE NETWORK PRICING CONSULTANT - 06/26/2023 8:00 AM CDT Thanks for coming in today. I am thankful you have trusted me with your care, and hope that you received EXCELLENT care today! Please do not hesitate to call if you have any questions or concerns at [phone]. You may receive a phone call or [...] than once per week. See the Dietitian, Tube Sizer And Cutter Operator . Call Centralized Scheduling at [phone] to make an appointment. Exercise: Try moving [...] Last Filled Start Date End Date tirzepatide (MOUNJARO) 7.5 mg/0.5 mL pen injector Inject 7.5 mg under the skin once a week E11.65 6 mL 4 06/26/2023 11/10/2023 documented in this encounter Progress Notes * Marialuisa Daniel NP - 06/26/2023 8:00 AM CDT Images from the original [...] denies hypoglycemia. Her weight has decreased by 2lbs since her last office visit. She has one grand son, named Kristian and her daughter is expecting her 2nd grandchild. Today's visitis to review labs and discuss future plan. Diabetes regimen: continue Omnipod -Basal 0000-2.55, 0400-2.6, IC -6, ISF-20, Active insulin time 3hrs., TARGET GLUCOSE 110- correct above 120 Continue Metformin 1000mg twice a day. Continue Jardiance 25 mg p.o. daily. Increase mounjaro 7.5mgweekly Failed Trulicity stopped 10/29/2022. Failed victoza 01/27/2023. [...] Component Value Date HGBA1C 7.4 (H) 04/28/2023 HGBA1C 7.4 01/27/2023 HGBA1C 7.6 10/29/2022 HGBA1C 7.1 (H) 07/19/2022 HGBA1C 7.1 07/15/2022 HGBA1C 7.2 04/15/2022 Chemistry Lab Results Component Value Date SODIUM 139 04/28/2023 POTASSIUM 4.1 04/28/2023 CHLORIDE 101 04/28/2023 CO2 22 04/28/2023 ANIONGAP 16 (H) 04/28/2023 BUNSER 21 04/28/2023 CREATININE 1.05 04/28/2023 GLUCOSE 149 04/28/2023 CALCIUM 9.6 04/28/2023 BILITOT 0.3 07/19/2022 ALBUMIN 4.4 04/28/2023 GFRNAA 63 04/28/2023 ALKPHOS 63 07/19/2022 AST 34 07/19/2022 ALT 40 07/19/2022 PHOS 3.5 04/28/2023 Latest Reference Range & [...] is less than 70. Continue atorvastatin Zetia Orders: - POCT glucose Hypertension associated with type 2 diabetes mellitus ([facility]) Assessment & Plan: This is a chronic condition which is not at goal upon arrival, at goal after 15 minutes of rest. Goal is less than 140/90 Personally reviewed labs. Continue losartan, hydrochlorothiazide. Encouraged to monitor weight and B/P at home Encouraged to take medications as prescribed. Hyperlipidemia associated with type 2 diabetes mellitus (HCC) Assessment & Plan: This is a chronic condition which is at goal . Goal is LDL less than 70 Continue atorvastatin Zetia, Encouraged to eat healthy, include fresh fruits and vegetables daily and avoid eating fried foods more than once per week. Encouraged to take medications as prescribed. Class 2 severe obesity due to excess calories with serious comorbidity and body mass index (BMI) of36.0 to 36.9 in adult ([facility]) Assessment & Plan: This is a chronic condition which continues 2 lbs. Weight loss since last office visit Encouraged healthy eating which includes a low carb diet. Avoiding processed foods, sweets and fried foods. Encouraged 30 minutes of walking at least 5 days per week Other orders - tirzepatide (MOUNJARO) 7.5 mg/0.5 mL pen injector; Inject 7.5 mg under the skin once a week E11.65 Discussed and educated on eating a healthy [...] medications. Return in about 3 months (around 09/26/2023). Marialuisa Daniel NP Cosigned by Fabien Mckenzie MD at 06/26/2023 6:06 PM CDT documented in this encounter Miscellaneous Notes * Assessment & Plan Note - Marialuisa Daniel NP - 06/26/2023 8:48 AM CDTAssociated Problem(s): Omnipod Dash Insulin pump in [...] Lowest blood sugar 96. Median is 166. * Assessment & Plan Note - Marialuisa Daniel NP - 06/26/2023 8:44 AM CDTAssociated Problem(s): Class 1 obesity due to excess [...] walking at least 5 days per week * Assessment & Plan Note - Marialuisa Daniel NP - 06/26/2023 8:42 AM CDTAssociated Problem(s): Hyperlipidemia associated with type 2 [...] Plan Note - Marialuisa Daniel NP - 06/26/2023 8:42 AM CDTAssociated Problem(s): Hypertension associated with type 2 diabetes mellitus (HCC) This is a chronic condition which is not at goal upon arrival, at goal after 15 minutes of rest. Goal is less than 140/90 Personally reviewed labs. Continue losartan, hydrochlorothiazide. Encouraged to monitor weight and B/P at home Encouraged to take medications as prescribed. * Assessment & Plan Note - Marialuisa Daniel NP - 06/26/2023 8:41 AM CDTAssociated Problem(s): Type 2 diabetes mellitus with [...] is less than 70. Continue atorvastatin Zetia documented in this encounter Plan of Treatment Not on file documented as of this encounter Procedures Procedure Name Priority Date/Time Associated Diagnosis Comments POCT GLUCOSE Routine 06/26/2023 8:09 AM CDT Type 2 diabetes mellitus with hyperglycemia, with long-term current use of insulin ([facility]) documented in this encounter Results * POCT glucose (06/26/2023 8:09 AM CDT) Glucose Blood, POC 114 mg/dL Blood 06/26/2023 8:09 AM CDT Marialuisa Daniel NP POINT OF CARE TEST ORDERABLES F inal Result documented in this encounter Visit Diagnoses Diagnosis Type 2 diabetes mellitus with hyperglycemia, with long-term current use of insulin ([facility])- Primary Hypertension associated with type 2 diabetes mellitus ([facility]) Hyperlipidemia associated with type 2 diabetes mellitus ([facility]) Class 2 severe obesity due to excess calories with serious comorbidity and body mass index (BMI) of 36.0 to 36.9 in adult ([facility]) documented in this encounter Discontinued Medications Medication Sig Discontinue Reason Start Date End Da te tirzepatide (Mounjaro) 5 mg/0.5 mL pen injectorIndications:type 2 diabetes mellitus Inject 5 mg under the skin every 7 days E11.65 Dose adjustment 04/28/2023 06/26/2023 documented as of this encounter Historical Medications * This list may reflect changes made after this encounter. nystatin creamIndications: as needed for rash 04/30/[address] (PROTONIX) 40 mg EC tablet Take 1 tablet (40 mg total) by mouth daily 05/30/2023 added in this encounter Care Teams Voice Studies Director Relationship Specialty Start Date End Date Eron Holliday NP [address] [place] [address] PCP - General Pain Management 07/15/22 documented as of this encounter
--- OUTSIDE RECORDS SUMMARY | 2024-03-03 15:35 | XMS_ITS | Encounter Summary ---
Author Organization [facility] Healthcare Address [address] [place] [address] Care Team Providers Care Continuity Editor Name Role Phone Eron Holliday NP Primary Care Provider +1- [phone] Encounter Details Date Type Department Care Team (Late st Contact Info) Description 05/09/[address] 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
--- OUTSIDE RECORDS SUMMARY | 2024-03-03 15:36 | XMS_ITS | Encounter Summary ---
Author Organization [facility] Healthcare Address [address] [place] [id number] Care Team Providers Care Furnace Repairer Helper Name Role Phone Eron Holliday NP Primary Care Provider [phone] Encounter Details Date Type Department Care Team (Late st Contact Info) Description 07/19/2022 11:05 AM CDT Lab [address] [address] Type 2 diabetes mellitus with hyperglycemia, with long-term current use of insulin ([facility]) ([facility]) Social History Tobacco Use Types Packs/Day Years Used Date Smoking Tobacco: Former Cigarettes Q uit: 03/20/2020 Smokeless Tobacco: Never Comments No Sex and Gender Information Value Date Recorded Sex Assigned at Not on file Legal Sex Female 8:53 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 Kidney numbers remain abnormal but improved from your last labs. This is goodnews! We will continue to monitor. Your HDL cholesterol is improved but still low. Please get 30 minutes of exercise in daily. Let me know if you have any questions are concerns. documented in this encounter Plan of Treatment Not on file documented as of this encounter Procedures Procedure Name Priority Date/Time Associated Diagnosis Comments EGFR Routine 07/19/2022 11:43 AM CDT Type 2 diabetes mellitus with hyperglycemia, with long-term current use of insulin (CMS/HCC) ([facility]) EGFR Routine 07/19/2022 11:43 AM CDT DIFFERENTIAL AUTO Routine 07/19/2022 11: 43 AM CDT THYROID FUNCTION CASCADE Routine 07/19/2022 11:43 AM CDT Type 2 diabetes mellitus with hyperglycemia, with long-term current use of insulin (CMS/HCC) ([facility]) CBC WITH AUTO DIFFERENTIAL Routine 07/19/2022 11:43 AM CDT ALBUMIN CREATININE RATIO, URINE Routine 07/19/2022 11:43 AM CDT Type 2 diabetes mellitus with hyperglycemia, with long-term current use of insulin (CMS/HCC) ([facility]) PHOSPHORUS Routine 07/19/2022 11:43 AM CDT Type 2 diabetes mellitus with hyperglycemia, with long-term current use of insulin (CMS/[facility]) ([facility]) HEMOGLOBIN A1C Routine 07/19/2022 11:43 AM CDT CREATININE Routine 07/19/2022 11:43 AM CDT LIPID PANEL Routine 07/19/2022 11:43 AM CDT Type 2 diabetes mellitus with hyperglycemia, with long-term current use of insulin (CMS/HCC) ([facility]) COMPREHENSIVE METABOLIC PANEL Routine 07/19/2022 11:43 AM CDT Type 2 diabetes mellitus with hyperglycemia, with long-term current use of insulin (CMS/HCC) ([facility]) PROTEIN, URINE, 24 HOUR RESULT Routine 07/19/2022 8:15 AM CDT VOLUME AND PERIOD, URINE, 24 HOUR Routine 07/19/2022 8:15 AM CDT CREATININE CLEARANCE, URINE, 24 HOUR RESULT Routine 07/19/2022 8:15 AM CDT documented in this encounter Results * eGFR (07/19/2022 11:43 AM CDT) eGFR 59 mL/min/1. 73 m2 [facility] ([facility]) Comment: [...] interpretive data was last reviewed 2020. Blood 07/19/2022 11:4 3 AM CDT 07/19/2022 12:15 PM CDT us Marialuisa Daniel NP LAB BLOOD ORDERABLES Final Resu lt [facility] ([place]) [facility] [place] [address] * eGFR (07/19/2022 11:43 AM CDT) eGFR 61 mL/min/1. 73 m2 [facility] ([place]) Comment: Interpretive Data Reference Interval Normal ?>/= [...] Current interpretive data was last reviewed 2020. Urine/Blood 07/19/2022 11:4 3 AM CDT 07/19/2022 12:15 PM CDT us Marialuisa Daniel NP LAB BLOOD ORDERABLES Final Resu lt [facility] ([place]) 1 [facility] [place] [address] * Differential, auto (07/19/2022 11:43 AM CDT) Neutrophil abs 4.3 1.7 - 6.5 K/cumm [facility] ([facility]) Imm gran abs 0.0 0.0 - 0.1 K/cumm [facility] ([place]) Lymphocyte abs 2.8 0.8 - 3.3 K/cumm [facility] ([place]) Monocyte abs 0.5 0.2 - 0.8 K/cumm [facility] ([place]) Eosinophil abs 0.1 0.0 - 0.5 K/cumm [facility] ([place]) Basophil abs 0.1 0.0 - 0.1 K/cumm [facility] ([place]) Neutrophil pct 54.8 % [facility] ([place]) Comment: Interpretive Data Percent cell count reference ranges are not reported, since discordance with absolute values may lead to misinterpretation of CBC data. Current Interpretive Data was last revised on 2017. Imm gran pct 0.4 % [facility] ([place]) Comment: Interpretive Data Percent cell count reference ranges are not reported, since discordance with absolute values may lead to misinterpretation of CBC data. Current Interpretive Data was last revised on 2017. Lymphocyte pct 36.0 % [facility] ([place]) Comment: Interpretive Data Percent cell count reference ranges are not reported, since discordance with absolute values may lead to misinterpretation of CBC data. Current Interpretive Data was last revised on 2017. Monocyte pct 6.0 % [facility] ([place]) Comment: Interpretive Data Percent cell count reference ranges are not reported, since discordance with absolute values may lead to misinterpretation of CBC data. Current Interpretive Data was last revised on 2017. Eosinophil pct 1.8 % [facility] ([place]) Comment: Interpretive Data Percent cell [...] Data was last revised on 2017. Blood 07/19/2022 11:4 3 AM CDT 07/19/2022 12:15 PM CDT us Marialuisa K. Fredy CASH REGISTER SERVICER LAB BLOOD ORDERABLES Final Resu lt [facility] ([place]) 1 [facility] [place] [address] * (ABNORMAL) Phosphorus (07/19/2022 11:43 AM CDT) Phosphorus, pl 5.2(H) 2.3 - 4.5 mg/dL [facility] ([place]) Blood 07/19/2022 11:4 3 AM CDT 07/19/2022 12:15 PM CDT Marialuisa Daniel CASH REGISTER SERVICER LAB BLOOD ORDERABLES Final Resu lt Performing Organization Address [facility]/ZIP Co de Phone Number [facility] ([place]) [address] [facility] [place] [address] * Creatinine (07/19/2022 11:43 AM CDT) Creatinine 1.08 0.60 - 1.10 mg/dL [facility] ([place]) Urine/Blood 07/19/2022 11:4 3 AM CDT 07/19/2022 12:15 PM CDT Marialuisa Daniel CASH REGISTER SERVICER LAB BLOOD ORDERABLES Final Resu lt Performing Organization Address City/[facility]/ZIP Co de Phone Number [facility] ([place]) [address] [facility] [place] [address] * (ABNORMAL) Hemoglobin A1c (07/19/2022 11:43 AM CDT) Hgb A1C 7.1(H) 4.0 - 5.6 % [facility] ([place]) Estimated Average Glucose 157 mg/dL [facility] ([place]) Comment: The ADA recommends reporting an estimated Average Glucose (eAG) with all Hemoglobin A1c results using the equation derived from a study of 507 normal and diabetic adults. ??Minority populations were underrepresented and children were not included. ?? (Diabetes Care 31:3786-6360, 2008). ??The eAG is not equivalent to a fasting glucose. Blood 07/19/2022 11:4 3 AM CDT 07/19/2022 12:15 PM CDT Marialuisa Daniel NP LAB BLOOD ORDERABLES Final Resu lt [facility] ([place]) [facility] [place] [address] * (ABNORMAL) CBC with auto differential (07/19/2022 11:43 AM CDT) WBC 7.8 3.8 - 9.9 K/cumm [facility] ([place]) Hgb 14.3 11.9 - 15.5 g/dL [facility] ([place]) Hct 44.4 35.6 - 45.5 % [facility] ([place]) Plt 297 150 - 400 K/cumm [facility] ([place]) MPV 10.1 9.1 - 12.3 fL [facility] ([place]) RBC 4.91 3.90 - 5.20 M/cumm [facility] ([place]) MCV 90.4 81.3 - 96.4 fL [facility] ([place]) MCH 29.1 27.1 - 33.3 pg [facility] ([place]) MCHC 32.2(L) 32.3 - 35.7 g/dL [facility] ([place]) RDW CV 12.4 11.1 - 14.9 % [facility] ([place]) RDW SD 41.3 35.7 - 48.1 fL [facility] ([place]) NRBC abs 0.00 0.00 - 0.01 K/cumm [facility] ([place]) Blood 07/19/2022 11:4 3 AM CDT 07/19/2022 12:15 PM CDT Marialuisa Daneil NP LAB BLOOD ORDERABLES Final Resu lt [facility] ([place]) [facility] [place] [place] [address] * (ABNORMAL) Lipid panel (07/19/2022 11:43 AM CDT) [facility] Signature Cholesterol 115 30 - 199 mg/dL [facility] ([place]) Comment: Interpretive Data Ages < or = [...] Interpretive Data was last revised on 2017. Triglycerides 156(H) <=149 mg/dL [facility] ([place]) Comment: Interpretive Data Ages < or = [...] Interpretive Data was last revised on 2017. HDL 35(L) >=40 mg/dL [facility] ([place]) Comment: Interpretive Data Ages < or = [...] Interpretive Data was last revised on 2017. LDL, calculated 49 <=129 mg/dL [facility] ([place]) Comment: Interpretive Data Ages < or = 19 years ??Acceptable: ? <110 mg/dL ??Borderline high: ??110-129 mg/dL ??High: ?>or= 130 mg/dL Ages > or = 20 years ??Optimal: ? <100 mg/dL ??Near optimal: ?100-129 mg/dL ??Borderline high: ?? 130-159 mg/dL ??High: ?>160 mg/dL Literature References: 1. Expert Panel on Integrated Guidelines for Cardiovascular Health and Risk Reduction in Children and Adolescents. Pediatrics 2011;128:S213 2. NCEP Expert Panel. Circulation 2004;110:227 Current Interpretive Data was last revised on 2017. Non-HDL Cholesterol 80 mg/dL [facility] ([place]) Comment: Interpretive Data Ages < or = [...] Interpretive Data was last revised on 2017. Chol/HDL ratio 3 [facility] ([place]) Blood 07/19/2022 11:4 3 AM CDT 07/19/2022 12:15 PM CDT Narrative [facility] ([place]) - 07/19/2022 12:44 PM CDT These lab test should be done fasting. This means do not eat or drink for at least 12 hours prior to getting your blood drawn. us Marialuisa Daniel NP LAB BLOOD ORDERABLES Final Resu lt Performing Organization Address [facility]/ZIP Co de Phone Number [facility] ([place]) [facility] [place] [address] * (ABNORMAL) Albumin Creatinine Ratio, Urine (07/19/2022 11:43 AM CDT) Albumin Ur 339.8 mg/L [facility] ([facility]) Comment: Interpretive Data No reference range established. Current interpretive data was last revised 2018. Testing performed by: [address] [address] Creatinine Ur 55.9 mg/dL [facility] ([place]) Comment: Interpretive Data No reference range established. Current interpretive data was last revised 2018. Testing performed by: [address] [address] Albumin Creatinine Ratio, Ur 608(H) 1 - 29 mg/g [facility] ([place]) Comment:Testing performed by : [address] [address] Urine 07/19/2022 11:4 3 AM CDT 07/19/2022 2:01 PM CDT us Marialuisa Daniel NP LAB URINE ORDERABLES Final Resu lt [facility] ([place]) 1 [facility] [place] [address] * TSH reflex to free T4 (07/19/2022 11:43 AM CDT) TSH 0.86 0.30 - 4.20 mcIUnit/mL [facility] ([place]) Blood 07/19/2022 11:4 3 AM CDT 07/19/2022 12:15 PM CDT us Marialuisa Daniel NP LAB BLOOD ORDERABLES Final Resu lt [facility] ([place]) 1 [facility] [place] [address] * (ABNORMAL) Comprehensive metabolic panel (07/19/2022 11:43 AM CDT) Sodium 137 135 - 145 mmol/L [facility] Potassium, pl 5.0(H) 3.3 - 4.9 mmol/L [facility] ([place]) Chloride 100 97 - 110 mmol/L [facility] ([place]) CO2 25 22 - 32 mmol/L [facility] ([place]) Anion gap 12 2 - 15 mmol/L [facility] ([place]) BUN 20 8 - 25 mg/dL [facility] ([place]) Creatinine 1.11(H) 0.60 - 1.10 mg/dL [facility] ([place]) Glucose 106 70 - 199 mg/dL [facility] ([place]) [...] interpretive data was last revised 2022. Calcium 10.9(H) 8.5 - 10.3 mg/dL [facility] ([place]) Bilirubin, total 0.3 0.1 - 1.2 mg/dL [facility] ([place]) Protein, pl 7.4 6.5 - 8.5 g/dL [facility] ([place]) Albumin 4.5 3.5 - 5.0 g/dL [facility] ([place]) Alk phos 63 40 - 130 Units/L [facility] ([place]) ALT 40 7 - 45 Units/L [facility] ([place]) AST 34 10 - 45 Units/L [facility] ([place]) Blood 07/19/2022 11:4 3 AM CDT 07/19/2022 12:15 PM CDT Marialuisa Daniel CASH REGISTER SERVICER LAB BLOOD ORDERABLES Final Resu lt Performing Organization Address [facility]/ZIP Co de Phone Number [facility] [place] [address] * Volume and period, urine, 24 hour (07/19/2022 8:15 AM CDT) Volume, ur 2,550 mL [facility] ([place]) Period, Urine Collection 1,469 min [facility] ([facility] Urine 07/19/2022 8:15 AM CDT 07/19/2022 12:27 PM CDT Marialuisa Daniel NP LAB URINE ORDERABLES Final Resu lt Performing Organization Address [facility]/ZIP Co de Phone Number [facility] [place] [address] * (ABNORMAL) Protein, urine, 24 hour (07/19/2022 8:15 AM CDT) Protein, 24 hr, ur 1,050(H) 0 - 150 mg/24H [facility] ([place]) Urine 07/19/2022 8:15 AM CDT 07/19/2022 12:27 PM CDT us Marialuisa Daniel CASH REGISTER SERVICER LAB URINE ORDERABLES Final Resu lt [facility] ([place]) [facility] [place] [address] * Creatinine clearance, urine, 24 hour (07/19/2022 8:15 AM CDT) Creatinine Clearance 82 60 - 130 mL/min [facility] Creatinine, 24 hr, ur 1.3 0.6 - 1.5 g/24H [facility] ([place]) Urine/Blood 07/19/2022 8:15 AM CDT 07/19/2022 12:27 PM CDT us Marialuisa Daniel CASH REGISTER SERVICER LAB URINE ORDERABLES Final Resu lt Performing Organization Address [facility]/ZIP Co de Phone Number [facility] ([place]) [address] [facility] [place] [address] documented in this encounter Visit Diagnoses Diagnosis Type 2 diabetes mellitus with hyperglycemia, with long-term current use of insulin (HCC) documented in this encounter Care Teams Furnace Repairer Helper Relationship Specialty Start Date End Date Eron Holliday NP [address] [place] [address] [place] [address] PCP - General Pain Management 07/15/22 documented as of this encounter
--- OUTSIDE RECORDS SUMMARY | 2024-03-03 15:36 | XMS_ITS | Encounter Summary ---
Author Organization [facility] Address [address] [place] [address] Care Team Providers Care Header Dock Name Role Phone Eron Holliday NP Primary Care Provider [phone]- [phone] Reason for Visit * Reason Comments Diabetes Type 2 Encounter Details Date Type Department Care Team (Late st Contact Info) Description 07/15/2022 10:30 AM CDT Office Visit [facility] of [address] [place] [address] Marialuisa Daniel, CHRISTOPHER [address] [facility] [address] [place] [address] Type 2 diabetes mellitus with hyperglycemia, with long-term current use of insulin ([facility]/HCC) (HCC) (Primary Dx); Hyperlipidemia associated with type 2 diabetes mellitus ([facility]); Omnipod Dash insulin pump titration Social History Tobacco Use Types Packs/Day Years Used Date Smoking Tobacco: Former Cigarettes Q uit: 03/20/2020 Smokeless Tobacco: Never Tobacco Cessation:Counseling Given: Not Answered Comments No Sex and Gender Information Value Date Recorded Sex Assigned at Not on file Legal Sex Female 8:53 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 Gender Identity Female 12/26/2023 10:11 PM CDT Sexual Orientation Straight 12/26/2023 10 :11 PM CDT documented as of this encounter Last Filed Vital Signs Vital Sign Reading Time Taken Comments Blood Pressure 130/78 07/15/2022 10:35 AM CDT Pulse - - Temperature - - Respiratory Rate - - Oxygen Saturation - - Inhaled Oxygen Concentration - - Weight 97.7 kg (215 lb 6.4 oz) 07/15/2022 10:35 AM CDT Height 165.1 cm (5' 5 ) 07/15/2022 10:35 AM CDT Body Mass Index 35.84 07/15/2022 10:35 AM CDT documented in this encounter Patient Instructions * Patient Instructions* Marialuisa Daniel, AGILE SCRUM MASTER - 07/15/2022 10:30 AM CDT Thanks for coming in today. I am thankful you have trusted me with your care, and hope that you received EXCELLENT care today! Please do not hesitate to call if you have any questions or concerns at [phone]. You may receive a phone call or text asking about your care today. I would love to hear your input and again, hope your visit was as EXCELLENT as possible, even if you were not feeling your best! Medications: Please take medications as prescribed. Continue on omnipod THEMA insulin delivery system Continue metformin 1000mg twice a day. Continue Jardiance 10 mg p.o. daily Switch Trulicity 4.5 mg to mounjaro 2.5 mg weekly Monitoring: Check blood sugar continuously with DExcom [...] than once per week. See the Dietitian, Strip Winder . Call Centralized Scheduling at [phone] to make an appointment. Exercise: Try moving [...] Refills Last Filled Start Date End Date Mounjaro 2.5 mg/0.5 mL pen injectorIndication s:type 2 diabetes mellitus Inject 2.5 mg under the skin every 7 days E11.65 2 mL 5 07/15/2022 07/16/2022 documented in this encounter Progress Notes * Marialuisa Daniel NP - 07/15/2022 10:30 AM CDT Images from the original note were not included. Patient ID: Sandy Lopez is a 57 y.o. female. Chief Complaint Diabetes Type 2 Today visit is a follow up visit. She has Type 2 Diabetes associated with microalbuminurea. She does not exercises but stays active with family and friends. 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 She eats 2-3 meals/day. She monitors blood sugar by wearing the DexCom 6 sensor and receives insulin per the Omnipod insulin delivery system. Her Dexcom 6 was downloaded and reviewed. She denies hypoglycemia. Her weight has decreased by 3lbs since her last office visit. She is expecting her 1st grandchild, which is a boy any day now. His name will be Kristian. She is very excited. Today's visit is to review labs and discuss future plan. Diabetes regimen: Omnipod - continue 0000-2.65 ic-6, isf-20. AI-3 Metformin 1000mg twice a day. Continue Jardiance 10 mg p.o. daily. Will switch Trulicity to Mounjaro 2.5mg weekly as she is not at goal. She has joined a research study which is studying the effects of diabetic kidney disease. She feels that her study drug does have Jardiance in it as her blood sugars have improved. Subjective/Objective Review of Systems Constitutional: Positive for [...] Mouth/Throat: Mouth: Mucous membranes are moist. Cardiovascular: Rate and Rhythm: Normal rate and regular rhythm. Pulses: Normal pulses. Pulmonary: Effort: Pulmonary effort is normal. No respiratory distress. Breath sounds: Normal breath sounds. Abdominal: General: Bowel sounds are normal. Palpations: Abdomen is soft. Feet: Right Foot: Monofilament exam: normal. Protective Sensation: 10 sites tested. 10 sites sensed. Left Foot: Monofilament exam: normal. Protective Sensation: 10 sites tested. 10 sites sensed. Skin: General: Skin is warm and dry. Neurological: Mental Status: She is alert and oriented to person, place, and time. Labs: Lab Results Component Value Date HGBA1C 7.1 07/15/2022 HGBA1C 7.2 04/15/2022 HGBA1C 6.5 12/28/2021 HGBA1C 7.7 09/13/2021 HGBA1C 7.8 06/01/2021 HGBA1C 8.2 12/01/2020 Chemistry Lab Results Component Value Date SODIUM 141 09/19/2021 POTASSIUM 4.7 06/28/2022 CHLORIDE 103 09/19/2021 CO2 29 09/19/2021 ANIONGAP 9 09/19/2021 BUNSER 11 09/19/2021 CREATININE 1.27 (H) 06/28/2022 GLUCOSE 130 09/19/2021 CALCIUM 9.7 09/19/2021 BILITOT 0.2 07/13/2021 ALBUMIN 4.2 09/19/2021 GFRNAA 50 06/28/2022 ALKPHOS 72 07/13/2021 AST 35 07/13/2021 ALT 29 07/13/2021 PHOS 3.3 09/19/2021 Lab Results Component Value Date ALBUMINUR 1,183.4 02/13/2022 CREATININEUR 53.3 02/13/2022 ALBCREATRATU 2,220 (H) 02/13/2022 Lab Results Component Value Date CHOL 148 07/13/2021 HDL 28 (L) 07/13/2021 TRIG 342 (H) 07/13/2021 LDLCALC 52 07/13/2021 Lab Results Component Value Date TSH 0.96 07/13/2021 TSH 1.56 06/09/2020 Assessment/Plan Diagnoses and all orders for this visit: Type 2 diabetes mellitus with hyperglycemia, with long-term current use of insulin ([facility]) ([facility]) (Primary) Assessment & Plan: This is a [...] eye exam. last dilated eye exam was [place] [facility] Monofilament foot exam completed. protective senses intact Personally reviewed CMP eGFR- 50 Kidney function- abnormal Sees Dr. Bhagat for Nephrology Urine microalbumin/creatinine ratio - not at goal <30 treated with losartan/HCTZ B/P today- at goal of <140/90. continue losartan/HCTZ Personally reviewed lipid panel. at Goal of less than 70. Continue atorvastatin Orders: - POCT glucose - POCT hemoglobin A1c - Lipid panel; Future - Albumin Creatinine Ratio, Urine; Future - TSH reflex to free T4; Future - Comprehensive metabolic panel; Future Hyperlipidemia associated with type 2 diabetes mellitus (HCC) Assessment & Plan: This is a chronic condition which is at goal of LDL less than 70 Continue atorvastatin Encouraged to eat healthy, include fresh fruits and vegetables daily and avoid eating fried foods more than once per week. Encouraged to take medications as prescribed. Omnipod Dash insulin pump titration Assessment & Plan: This is a chronic condition which is at goal. Type of insulin pump-Omnipod dash insulin delivery system with DexCom 6 sensor with humalog Basal 0000-2.65 IC -6 ISF-20 Active insulin time 3hrs. T[employer] GLUCOSE 110 Total daily dose of insulin-100 units Bolus- 36units (36%) Basal- 64 units (64%) Other orders - Mounjaro 2.5 mg/0.5 mL pen injector; Inject 2.5 mg under the skin every 7 days E11.65 Discussed and educated on eating a [...] medications. Return in about 3 months (around 10/15/2022). Marialuisa Daniel NP documented in this encounter Miscellaneous Notes * Assessment & Plan Note - Marialuisa Daniel NP - 07/15/2022 11:12 AM CDT Associated Problem(s): Omnipod Dash Insulin pump [...] and 250. Average blood sugar is 170 * Assessment & Plan Note - Marialuisa Daniel NP - 07/15/2022 11:11 AM CDT Associated Problem(s): Hyperlipidemia associated with type 2 diabetes mellitus (HCC) This is a chronic condition which is at goal of LDL less than 70 Continue atorvastatin Encouraged to eat healthy, include fresh fruits and vegetables daily and avoid eating fried foods more than once per week. Encouraged to take medications as prescribed. * Assessment & Plan Note - Marialuisa Daniel NP - 07/15/2022 11:08 AM CDT Associated Problem(s): Type 2 diabetes mellitus [...] eye exam. last dilated eye exam was [place] [facility] Monofilament foot exam completed. protective senses intact Personally reviewed CMP eGFR- 50 Kidney function- abnormal Sees Dr. Bhagat for Nephrology Urine microalbumin/creatinine ratio - not at goal <30 treated with losartan/HCTZ B/P today- at goal of <140/90. continue losartan/HCTZ Personally reviewed lipid panel. at Goal of less than 70. Continue atorvastatin documented in this encounter Plan of Treatment Not on file documented as of this encounter Procedures Procedure Name Priority Date/Time Associated Diagnosis Comments POCT HEMOGLOBIN A1C Routine 07/15/2022 1 0:42 AM CDT Type 2 diabetes mellitus with hyperglycemia, with long-term current use of insulin ([facility]) ([facility]) POCT GLUCOSE Routine 07/15/2022 10:36 AM CDT Type 2 diabetes mellitus with hyperglycemia, with long-term current use of insulin ([facility]) ([facility]) documented in this encounter Results * (ABNORMAL) Comprehensive metabolic panel (07/19/2022 11:43 AM CDT) Sodium 137 135 - 145 mmol/L [facility] ([place]) Potassium, pl 5.0(H) 3.3 - [...] 07/19/2022 12:15 PM CDT us Marialuisa Daniel AGILE SCRUM MASTER LAB BLOOD ORDERABLES Final Resu lt Performing Organization Address [facility]/ZIP Co de Phone Number [facility] [address] [facility] [place] [address] * TSH reflex to free T4 (07/19/2022 11:43 AM CDT) TSH 0.86 0.30 - 4.20 mcIUnit/mL [facility] ([place]) Blood 07/19/2022 11:4 3 AM CDT 07/19/2022 12:15 PM CDT Marialuisa Daniel AGILE SCRUM MASTER LAB BLOOD ORDERABLES Final Resu lt [facility] ([place]) [address] [facility] [place] [address] * (ABNORMAL) Albumin Creatinine Ratio, Urine (07/19/2022 11:43 AM CDT) Albumin Ur 339.8 mg/L [facility] ([place]) Comment: Interpretive Data No reference range established. Current interpretive data was last revised 2018. Testing performed by: [facility], [address] [place] [address], [place]., [address] Creatinine Ur 55.9 mg/dL [facility] ([place]) Comment: Interpretive Data No reference range established. Current interpretive data was last revised 2018. Testing performed by: [facility], [id number] [place] [address], [place]., [address] Albumin Creatinine Ratio, Ur 608(H) 1 - 29 mg/g [facility] SANTOY[facility] ([place]) Comment:Testing performed by : [facility], [id number] [place] [address], [place]., [address] Urine 07/19/2022 11:4 3 AM CDT 07/19/2022 2:01 PM CDT us Marialuisa Daniel NP LAB URINE ORDERABLES Final Resu lt OL[facility] SANTOY[facility] ([place]) [address] [facility] [place] [address] * (ABNORMAL) Lipid panel (07/19/2022 11:43 AM CDT) Cholesterol 115 30 - 199 mg/dL OLIVIA [...] on 2017. HDL 35(L) >=40 mg/dL [facility] ([place]) Comment: Interpretive Data [...] on 2017. Non-HDL Cholesterol 80 mg/dL [facility] ([place]) Comment: Interpretive Data Ages < or = [...] last revised on 2017. Chol/HDL ratio 3 [facility]ER SANT[facility] ([place]) Blood 07/19/2022 11:4 3 AM CDT 07/19/2022 12:15 PM CDT Narrative [facility] SANTOY[facility] ([place]) - 07/19/2022 12:44 PM CDT These lab test should be done fasting. This means do not eat or drink for at least 12 hours prior to getting your blood drawn. Marialuisa Daniel NP LAB BLOOD ORDERABLES Final Resu lt OLIVIA NATANAEL ([place]) [address] [facility] [place] [address] * POCT hemoglobin A1c (07/15/2022 10:42 AM CDT) Hemoglobin A1C, POC 7.1 % Blood 07/15/2022 10:4 2 AM CDT Marialuisa Daniel NP POINT OF CARE TEST ORDERABLES F inal Result * POCT glucose (07/15/2022 10:36 AM CDT) Glucose Blood, POC 137 mg/dL Blood 07/15/2022 10:3 6 AM CDT Marialuisa Daniel NP POINT OF CARE TEST ORDERABLES F inal Result documented in this encounter Visit Diagnoses Diagnosis Type 2 diabetes mellitus with hyperglycemia, with long-term current use of insulin (HCC)- Primary Hyperlipidemia associated with type 2 diabetes mellitus (HCC) Omnipod Dash insulin pump titration Fitting and adjustment of insulin pump Type 2 diabetes mellitus with hyperglycemia, with long-term current use of insulin ([facility]) documented in this encounter Discontinued Medications Medication Sig Discontinue Reason Start Date End Da te Trulicity 4.5 mg/0.5 mL pen injector Therapy completed 3 07/15/2022 documented as of this encounter Historical Medications * This list may reflect changes made after this encounter. Trulicity 4.5 mg/0.5 mL pen injector 06/26/2022 3 empagliflozin (Jardiance) 10 mg tablet Jardiance 10 mg tablet 3 added in this encounter Care Teams Header Dock Relationship Specialty Start Date End Date Eron Holliday NP [address] [place] [address] PCP - General Pain Management 07/15/22 documented as of this encounter
--- OUTSIDE RECORDS SUMMARY | 2024-03-03 15:36 | XMS_ITS | Encounter Summary ---
Author Organization [facility] Address [address] [place] [address] Care Team Providers Care Extractor Puller Name Role Phone Eron Holliday NP Primary Care Provider [phone]- [phone] Encounter Details Date Type Department Care Team (Latest Contact Info) Description 03/28/2022 10:15 AM MANAGER SHOP - 03/28/2022 11:59 PM MANAGER SHOP Hospital Encounter [facility] [address] [id number] Discharge Disposition: Discharge to home or self care Social History Tobacco Use Types Packs/Day Years Used Date Smoking Tobacco: Former Cigarettes Q uit: 03/20/2020 Smokeless Tobacco: Never Comments No Sex and Gender Information Value Date Recorded Sex Assigned at Not on file Legal Sex Female 8:53 AM MANAGER SHOP Gender Identity Female 12/26/2023 10:11 PM CDT [...] mouth 2 (two) times a day 04/25/2020 insulin lispro (HumaLOG) 200 unit/mL (3 mL) pen for injectionIndicati ons:type 2 diabetes mellitus Inject 0.08 mL (16 Units total) under the skin 3 (three) times a day before meals When insulin pump fails. E11.65 pump has failed. 15 mL 5 12/25/2021 insulin syringe-needle U-100 1 mL 31 gauge x 07/09 syringe Twice a day 07/13/2018 meclizine (ANTIVERT) 25 mg tablet Take 1 tablet (25 mg total) by mouth as needed 02/11/2022 pen needle, diabetic 32 gauge x needle Use to inject insulin up to [...] TABLET BY MOUTH DAILY 28 tablet 2 02/11/2022 3 blood-glucose meter kitIndications:Un controlled type 2 diabetes [...] mg total) by mouth daily 12/05/2018 4 Dexcom G6 Electronic Equipment Repairer miscIndications:T ype 2 diabetes mellitus with hyperglycemia, [...] SUGAR TWICE A DAY 1 each 3 04/26/2021 3 dulaglutide (Trulicity) 4.5 mg/0.5 mL pen injector Inject 0.5 mL (4.5 mg total) under the skin every 7 days E11.65 2 mL 5 01/15/2022 3 estradioL (ESTRACE) 0.5 mg tablet Take 1 [...] 3 insulin pump cart,cont inf,BT (Omnipod Dash Insulin Pod) cartridge Change omnipod dash every 48 hrs. e11.65 45 each 3 06/01/2021 3 losartan (COZAAR) 100 mg tablet 12/17/2021 3 medroxyPROGESTERo ne (PROVERA) 5 mg tablet 12/17/2021 4 metFORMIN (GLUCOPHAGE) 1,000 mg tablet TAKE 1 TABLET BY MOUTH TWICE A DAY WITH FOOD 180 tablet 3 08/21/2021 3 pediatric multivitamin-iron tablet,chewable Take by mouth 07/23/2018 3 pediatric multivitamin-iron tablet,chewable Take by mouth 07/23/2018 [...] Procedure Name Priority Date/Time Associated Diagnosis Comments POTASSIUM LEVEL Routine 03/28/2022 10:15 AM MANAGER SHOP documented in this encounter Results * Potassium (03/28/2022 10:15 AM MANAGER SHOP) Potassium, pl 4.1 3.3 - 4.9 mmol/L [facility] Blood 03/28/2022 10:1 5 AM MANAGER SHOP 03/28/2022 7:09 PM MANAGER SHOP Christophe Tan MD LAB BLOOD ORDERABLES Final Resu lt [facility] [address] [address] Department [place] [address] documented in this encounter Visit Diagnoses Not on filedocumented in this encounter Care Teams Extractor Puller Relationship Specialty Start Date End Date Eron Holliday NP [address] [place] [address] PCP - General 06/28/21 05/08/22 documented as of this encounter
--- OUTSIDE RECORDS SUMMARY | 2024-03-03 15:36 | XMS_ITS | Encounter Summary ---
Author Organization [facility] Healthcare Address [address] [place] [address] Care Team Providers Care Gas System Operator Name Role Phone Eron Holliday NP Primary Care Provider +1- [phone] Encounter Details Date Type Department Care Team (Latest Contact Info) Description 03/27/2022 9:30 AM GLASSWORKER - 03/27/2022 11:59 PM GLASSWORKER Hospital Encounter [facility] [address] [place] [address] Discharge Disposition: Discharge to home or self care Social History Tobacco Use Types Packs/Day Years Used Date Smoking Tobacco: Former Cigarettes Q uit: 03/20/2020 Smokeless Tobacco: Never Comments No Sex and Gender Information Value Date Recorded Sex Assigned at Not on file Legal Sex Female 8:53 AM GLASSWORKER Gender Identity Female 12/26/2023 10:11 PM CDT [...] by mouth daily 12/05/2018 4 Dexcom G6 Rv Detailer miscIndications:T ype 2 diabetes mellitus with hyperglycemia, [...] Priority Date/Time Associated Diagnosis Comments EGFR Routine 03/27/2022 9:30 AM GLASSWORKER POTASSIUM LEVEL Routine 03/27/2022 9:30 AM GLASSWORKER CREATININE Routine 03/27/2022 9:30 AM GLASSWORKER documented in this encounter Results * eGFR (03/27/2022 9:30 AM GLASSWORKER) eGFR 62 mL/min/1. 73 m2 [facility] Comment: Interpretive [...] interpretive data was last reviewed 2020. Blood 03/27/2022 9:30 AM GLASSWORKER 03/27/2022 7:25 PM GLASSWORKER us Christophe Tan MD LAB BLOOD ORDERABLES Final Resu lt Performing Organization Address [facility]/ZIP Co de Phone Number [facility] K[facility] [address] [address] [facility] [place] [address] * (ABNORMAL) Potassium (03/27/2022 9:30 AM GLASSWORKER) Potassium, pl 5.3(H) 3.3 - 4.9 mmol/L [facility] Blood 03/27/2022 9:30 AM GLASSWORKER 03/27/2022 7:00 PM GLASSWORKER us Christophe Tan MD LAB BLOOD ORDERABLES Final Resu lt Performing Organization Address [facility] Co de Phone Number OLIVIA KNAPP [address] [address] [facility] [place] [address] * Creatinine (03/27/2022 9:30 AM GLASSWORKER) Creatinine 1.06 0.60 - 1.10 mg/dL [facility] Blood 03/27/2022 9:30 AM GLASSWORKER 03/27/2022 7:00 PM GLASSWORKER us Christophe Tan MD LAB BLOOD ORDERABLES Final Resu lt Performing Organization Address [facility] Co de Phone Number OL[facility]IA KNAPP [address] [address] [facility] [place] [address] documented in this encounter Visit Diagnoses Not on filedocumented in this encounter Care Teams Gas System Operator Relationship Specialty Start Date End Date Eron Holliday NP [address] [place] [address] [place] [address] PCP - General 06/28/21 05/08/22 documented as of this encounter
--- OUTSIDE RECORDS SUMMARY | 2024-03-03 15:36 | XMS_ITS | Encounter Summary ---
Author Organization [facility] Address [address] [address] Care Team Providers Care Sales Account Coordinator Name Role Phone Yuko Alis Tatiana SALONI Primary Care Provider Reason for Referral * Diagnostic Imaging (Routine) - Closed Specialty Diagnoses / Procedures Referred By Claudette smith Referred To Contact Diagnoses Tendinopathy of right rotator cuff Procedures XR Shoulder Right 2 or More Views Regi Khan DO [address] [place] [address] DR THAKUR [address] [place] [address] Phone: tel: fax: [address] [address] Referral ID Status Reason Start Date Expiration Date Visits Re quested Visits Authorized [id number] Closed 06/24/2022 07/24/2023 1 1 Reason for Visit * Reason Comments Pain * Consultation (Routine) - Closed Specialty Diagnoses / Procedures Referred By Claudette smith Referred To Contact Orthopedic Surgery Diagnoses Tendinopathy of right rotator cuff Angel Luis Lara MD [address] [place] [address] DR THAKUR [address] [place] [address] Phone: tel: fax: [facility] Orthopedics and Sports Medicine [address] [place] [address] Phone: tel: fax: Referral ID Status Reason Start Date Expiration Date V isits Requested Visits Authorized [id number] Closed Specialty Services Required 05/09/2022 06/08/2023 1 1 Encounter Details Date Type Department Care Team (Late st Contact Info) Description 06/24/2022 10:00 AM CDT Office Visit [facility] Orthopedics and Sports Medicine [address] [place] [address] [address] [place] [id number] Regi Khan DO [address] [facility] [address] [place] [address] Tendinopathy of right rotator cuff (Primary Dx); Scapular dysfunction Social History Tobacco Use Types Packs/Day Years Used Date Smoking Tobacco: Former Cigarettes Q uit: 03/20/2020 Smokeless Tobacco: Never Tobacco Cessation:Counseling Given: Not Answered Comments No Sex and Gender Information Value Date Recorded Sex Assigned at Not on file 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 NEW PATIENT VISIT CHIEF COMPLAINT She had concerns including Pain of the Right Shoulder. HISTORY OF PRESENT ILLNESS Sandy Lopez is a 57 y.o. female who was seen today for consultation requested by Angel Luis Lara MD. They present with patient has had right shoulder pain that has been present for over a year. She denies any previous surgery and denies any specific injury. She is performed physical therapy inJanuary for 6 weeks which she believes made her pain worse. She is not been taking any pain medications at this time. PAST MEDICAL HISTORY She has a past medical history of Uncontrolled type 2 diabetes mellitus with hyperglycemia, with long-term current use of insulin ([facility]) (04/03/2017). PAST SURGICAL HISTORY She has no past surgical history on file. MEDICATIONS She has a current medication list which includes the following prescription(s): atorvastatin, aspirin, blood-glucose meter, buspirone, cetirizine, citalopram, clopidogrel, dexcom g6 electric razor mechanic, dexcom g6 sensor, dexcom g6 transmitter, estradiol, ezetimibe, famotidine, fexofenadine, hydroxyzine, lantus, insulin lispro, humalog, omnipod dash pods (gen 4), insulin syringe-needle u-100, losartan-hydrochlorothiazide, meclizine, medroxyprogesterone, metformin, pediatric multivitamin-iron, pen needle, diabetic, propranolol, sumatriptan, and zolpidem. ALLERGIES She is allergic to codeine and ibuprofen. SOCIAL HISTORY She reports that she quit smoking about 2 years ago. Her smoking use included cigarettes. She has never used smokeless tobacco. No alcohol history on file. FAMILY HISTORY History reviewed. No pertinent family history. REVIEW OF SYSTEMS Constitutional: Positive for activity change Musculoskeletal: Positive for arthralgias PHYSICAL EXAM Ht 165.1 cm (5' 5 ) Wt 99.2 kg (218 lb 11.1 oz) LMP (LMP Unknown) BMI 36.39 kg/m?? Right shoulder Inspection Erythema: absent Edema: absent Effusion: absent Scapulothoracic motion: abnormal Palpation Tenderness is present. The patient has tenderness in the periscapular and biceps tendon area(s). Range of motion The patient has normal range of motion of the right shoulder. The patient does not have pain with range of motion of the right shoulder. Strength The patient has 5/5 strength throughout the right shoulder. Neurovascular The patient has normal vascular on the right side of her body. She has normal sensation on the right side of her body. Tests Belly press: negative External lag: negative Hawkin's test: negative Hornblower's test: negatvie Impingement signs:negative Neer's: negative Speed's: positive Spurling's: negative REVIEW OF X-RAYS/STUDIES/LABS Multiple x-rays of the right shoulder performed on 06/24/2022 show no obvious osseous abnormality about the shoulder, there is no sign of fracture dislocation and mild AC joint and glenohumeral osteoarthritis present. There is calcific tendinitis present in the insertion near the infraspinatus tendon. Assessment/Plan: 1. Tendinopathy of right rotator cuff - Ambulatory referral to Orthopedic Surgery - XR Shoulder Right 2 or More Views; Future 2. Scapular dysfunction I discussed with the patient that I believe that she has symptoms associated with scapular dyskinesia and does not have specific rotator cuff pain at this time. I discussed utilizing Voltaren gel topically and Tylenol for pain relief. She may utilize Voltaren gel over her biceps tendon as it was mildly painful. I would like her to perform physical therapy specifically focusing on her scapular range of motion is the majority of her pain is in the medial border of her scapula over her rhomboids. I would like to see her back in 3 months for reassessment to see if physical therapy is improving her pain. Regi Khan DO 06/27/2022 documented in this encounter Plan of Treatment Not on file documented as of this encounter Results * XR Shoulder Right 2 or More Views (06/24/2022 10:04 AM CDT) Anatomical Region Laterality Modality Upper Extremities, Shoulder Right Comp uted Radiography 06/24/2022 12:2 4 PM CDT Narrative 06/24/2022 12:24 PM CDT EXAM DESCRIPTION: XR SHOULDER RIGHT 2 OR MORE VIEWS REASON FOR STUDY: pain ?? General shoulder pain with painful rom since July 2021, no injury ? FINDINGS: Four views submitted without comparison. There are no fractures. ??Alignment is normal. ??There is mild glenohumeral and acromioclavicular joint osteoarthritis. ??Infraspinatus calcific tendinitis is present. IMPRESSION: Mild right glenohumeral and acromioclavicular joint osteoarthritis. Right infraspinatus calcific tendinitis. THIS IS AN ELECTRONICALLY VERIFIED FINAL REPORT 06/24/2022 12:24 PM - Electronically signed by ??Lamont Hidalgo M.D. D: ??06/24/2022 12:24 PM T: Report ID: [id number] Reading Location: ??[id number] Procedure Note Lamont Hidalgo MD - 06/24/2022 EXAM DESCRIPTION: XR SHOULDER RIGHT 2 OR MORE VIEWS REASON FOR STUDY: pain General shoulder pain with painful rom since July 2021, no injury FINDINGS: Four views submitted without comparison. There are no fractures. Alignment is normal. There is mild glenohumeraland acromioclavicular joint osteoarthritis. Infraspinatus calcific tendinitisis present. IMPRESSION: Mild right glenohumeral and acromioclavicular joint osteoarthritis. Right infraspinatus calcific tendinitis. THIS IS AN ELECTRONICALLY VERIFIED FINAL REPORT 06/24/2022 12:24 PM - Electronically signed by Lamont Hidalgo M.D. T: Report ID: [id number] Reading Location: [id number] [place] Regi Khan DO IMG XR PROCEDURES Final Result documented in this encounter Visit Diagnoses Diagnosis Tendinopathy of right rotator cuff- Primary Scapular dysfunction Tendinopathy of right rotator cuff documented in this encounter Orders Outpatient Referral Count Last Ordered Date Fir st Ordered Date AMB REFERRAL TO ORTHOPEDIC SURGERY 1 2022 documented in this encounter Care Teams Sales Account Coordinator Relationship Specialty Start Date End Date Alis Huntley DNP PCP - General Family Medicine 05/09/22 07/14/22 documented as of this encounter
--- OUTSIDE RECORDS SUMMARY | 2024-03-03 15:36 | XMS_ITS | Encounter Summary ---
Author Organization [facility] Address [address] [place] [address] Care Team Providers Care Orthopedic Physician Assistant Name Role Phone Eron Holliday NP Primary Care Provider [phone]- [phone] Encounter Details Date Type Department Care Team (Late st Contact Info) Description 07/15/2022 11:35 AM CDT Lab [address] [address] Social History Tobacco Use Types Packs/Day Years Used Date Smoking Tobacco: Former Cigarettes Q uit: 03/20/2020 Smokeless Tobacco: Never Comments No Sex and Gender Information Value Date Recorded Sex Assigned at Not on file 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 Gender Identity Female 12/26/2023 10:11 PM CDT Sexual Orientation Straight 12/26/2023 10 :11 PM CDT documented as of this encounter Plan of Treatment Scheduled Orders Name Type Priority Associated Diagnoses Orde r Schedule Volume and period, urine, 24 hour Lab Routine Ordered: 023 documented as of this encounter Visit Diagnoses Not on filedocumented in this encounter Care Teams Orthopedic Physician Assistant Relationship Specialty Start Date End Date Eron Holliday NP [address] [facility] [place] [address] PCP - General Pain Management 07/15/22 documented as of this encounter
--- OUTSIDE RECORDS SUMMARY | 2024-03-03 15:36 | XMS_ITS | Encounter Summary ---
Author Organization [facility] Address [address] [facility] [address] [place] [address] Care Team Providers Care Boat Loader Helper Name Role Phone Eron Holliday NP Primary Care Provider +1- [phone] Reason for Visit * Reason Onset Date Comments PA for Mounjaro 2.5mg/ 0.5ML 07/16/2022 Encounter Details Date Type Department Care Team (Late st Contact Info) Description 07/16/2022 Telephone [facility] Diabetes [facility] of [address] [place] [address] Marialuisa Daniel NP [address] [address] PA for Mounjaro 2.5mg/ 0.5ML Social History Tobacco Use Types Packs/Day Years Used Date Smoking Tobacco: Former Cigarettes Q uit: 03/20/2020 Smokeless Tobacco: Never Comments No Sex and Gender Information Value Date Recorded Sex Assigned at Not on file 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 documented in this encounter Plan of Treatment Not on file documented as of this encounter Visit Diagnoses Not on filedocumented in this encounter Care Teams Boat Loader Helper Relationship Specialty Start Date End Date Eron Holliday NP [address] [place] [address] [place] [address] PCP - General Pain Management 07/15/22 documented as of this encounter
--- OUTSIDE RECORDS SUMMARY | 2024-03-03 15:36 | XMS_ITS | Encounter Summary ---
Author Organization [facility] Address [address] [place] [address] Phone Care Team Providers Care Photographic Restorer Name Role Phone Eron Holliday NP Primary Care Provider +1- [phone] Reason for Visit * Reason Comments Hearing Loss Pt is here today sta ting feels like something is crawling in right ear * Consultation (Routine) - Closed Specialty Diagnoses / Procedures Referred By Claudette smith Referred To Contact Otolaryngology Diagnoses Dizziness Eron Holliday NP [address] [place] [address] Phone: tel: fax: [facility] (All Locations) Referral ID Status Reason Start Date Expiration Date V isits Requested Visits Authorized [id number] Closed Specialty Services Required 07/18/2022 08/17/2023 12 12 Encounter Details Date Type Department Care Team (Late st Contact Info) Description 08/26/2022 11:00 AM CDT Office Visit [facility] Otolaryngology [address] 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 Chief Complaint: Chief Complaint Patient presents with Hearing Loss Pt is here today stating feels like something is crawling in right ear Referred by: No ref. provider found HISTORY OF PRESENT ILLNESS: This is a 57 y.o. female who presents today for something crawling in her right ear. This has been ongoing for the past 5-6 months. She is intermittent right otalgia x1 month. Patient denies any previous otologic surgery or any otorrhea. She does have tinnitus that is present intermittently, non bothersome. Past Medical History: Diagnosis Date Anxiety Arthritis Depression Diabetes ([facility]) Dizziness GERD (gastroesophageal reflux disease) High blood pressure Type 1 diabetes mellitus ([facility]) 08/04/2018 Uncontrolled type 2 diabetes mellitus with hyperglycemia ([facility]) 03/14/2017 Uncontrolled type 2 diabetes mellitus with hyperglycemia, with long-term current use of insulin ([facility]) 04/03/2017 History reviewed. No pertinent surgical history. Current Outpatient Medications: albiglutide (TANZEUM SUBQ), 50 mg, Disp: , Rfl: aspirin 81 mg enteric coated tablet, Take [...] total) by mouth daily, Disp: , Rfl: citalopram (CeleXA) 20 mg tablet, , Disp: , Rfl: clopidogreL (PLAVIX) 75 mg tablet, Take 1 tablet (75 mg total) by mouth daily, Disp: , Rfl: Dexcom G6 Structural Design Engineer misc, USE TO TEST BLOOD SUGAR DIRECTED, Disp: 1 each, Rfl: 1 Dexcom G6 Sensor device, USE TO TEST BLOOD SUGAR DIRECTED, Disp: 4 each, Rfl: 10 Dexcom G6 Transmitter device, USE TO TEST BLOOD SUGAR TWICE A DAY, Disp: 1 each, Rfl: 3 diphenhydrAMINE 25 mg capsule, daily, Disp: , Rfl: dulaglutide (Trulicity) 4.5 mg/0.5 mL pen injector, Inject 0.5 mL (4.5 mg total) under the skin every 7 days E11.65, Disp: 6 mL, Rfl: 3 empagliflozin (Jardiance) 10 mg tablet, Jardiance 10 mg tablet, Disp: , Rfl: estradioL (ESTRACE) 0.5 mg tablet, Take 1 tablet (0.5 mg total) by mouth daily, Disp: , Rfl: ezetimibe (ZETIA) 10 mg tablet, TAKE 1 TABLET BY MOUTH DAILY, Disp: 28 tablet, Rfl: 0 famotidine (PEPCID) 20 mg tablet, , Disp: , Rfl: fexofenadine (ADELA) 180 mg tablet, , Disp: , Rfl: hydrocortisone 1 % ointment, daily, Disp: , Rfl: hydrOXYzine (ATARAX) 25 mg tablet, , Disp: , Rfl: insulin glargine (LANTUS) 100 unit/mL (3 mL) pen for injection, Inject 50 Units under the skin daily before dinner Use lantus 50 units once daily in pm for insulin pump failure. e11.65 pump has failed, Disp: 15 mL, Rfl: 5 insulin lispro (HumaLOG) 100 unit/mL vial for injection, USE PER INSULN PUMP MAX OF 150 UNITS DAILYAS DIRECTED, Disp: 50 mL, Rfl: 5 insulin lispro (HumaLOG) 200 unit/mL (3 mL) pen for injection, Inject 0.08 mL (16 Units total) under the skin 3 (three) times a day before meals When insulin pump fails. E11.65 pump has failed., Disp: 15 mL, Rfl: 5 insulin pump cart,cont inf,BT (Omnipod Dash Pods, Gen 4,) cartridge, CHANGE POD EVERY 48 HOURS, Disp: 15 each, Rfl: 11 insulin pump cart,cont inf,BT (Omnipod Dash Pods, Gen 4,) cartridge, Omnipod Dash Pods (Gen 4) subcutaneous cartridge, Disp: , Rfl: insulin syringe-needle U-100 1 [...] WITH FOOD, Disp: 60 tablet, Rfl: 11 pen needle, diabetic (TRUEplus Pen Needle) 32 gauge x 5/32 needle, TRUEplus Pen Needle 32 gauge x 5/32 , Disp: , Rfl: pen needle, diabetic 32 gauge x 5/32 needle, Use to inject insulin up to 4times/day. E11.65, Disp:150 each, Rfl: 11 predniSONE (DELTASONE) 20 mg tablet, prednisone 20 mg tablet, Disp: , Rfl: propranoloL (INDERAL) 20 mg tablet, propranolol 20 mg tablet, Disp: , Rfl: SUMAtriptan (IMITREX) 50 mg tablet, once as needed, Disp: , Rfl: zolpidem (AMBIEN) 10 mg tablet, Take 1 tablet (10 mg total) by mouth nightly as needed, Disp: , Rfl: Review of patient's allergies indicates: Allergies Allergen Reactions Nsaids (Non-Steroidal Anti-Inflammatory Drug) Rash Codeine Vomiting Ibuprofen Other (See comments) Social History and Family History: reviewed in the EMR New patients fill out a 10-system review of systems survey that gets reviewed at their initial visit. Pertinent positives have been incorporated into the HPI. Physical Exam Vital Signs: LMP (LMP Unknown) GENERAL: Pleasant female, sitting up in NAD, normal appearance and voice. RESPIRATION: Breathing comfortably, no stridor. CV: No clubbing/cyanosis/edema in hands, RRR. HEAD AND FACE: General Inspection reveals no lesions or masses. HEENT: EARS:Examination of the external ears was normal using visual inspection. If the otoscope was inadequate, the otology microscope was used for improved visualization for diagnostic purposes. Otoscopicor microscopic visualization was used for clear magnified visualization and three-dimensional imaging of the ear for detection of any observable pathology or pathologic anatomic configuration and charaterization of same. Right External auditory canal: normal Tympanic Membrane: normal Middle ear: normal Left: External auditory canal: normal Tympanic Membrane: normal Middle ear: normal EYES: EOM Intact, sclera anicteric, no conjunctival injection. NOSE: External inspection of nose reveals no lesions, no masses. Inspection of nasal mucosa, septum, and turbinates is normal to anterior rhinoscopy. ORAL CAVITY/OROPHARYNX: Lips and gums are normal. Oropharynx, including the mucosa of oral cavity, hard and soft palates, tongue, and posterior pharyngeal wall showed normal symmetry without lesion and normal hydration of mucosal surfaces. NECK: Normal symmetry and overall appearance as well as tracheal position; no masses. Thyroid glandshows no tenderness or masses. NEURO: A&Ox3, Cranial nerves 2-12 intact and symmetric. Normal affect. GAIT: Normal. DATA REVIEWED: Audiogram: ASSESSMENT & PLAN: Ear exam with dry scaly skin noted. Audiogram reviewed with patient today showing a mild high-frequency sensorineural hearing loss bilaterally. Tympanograms are normal bilaterally. Patient was advised to use 1-2 drops of baby oil 1 to 2 times a week. Would also consider DC Q-tip use. She may recheck back p.r.n.. Rupal Rendon, MELIZA-MITESH, MECHELLE [facility] Otolaryngology [address] [place] [address], [facility] [address] [place] [address] There may be grammatical errors in this note due to use of voice recognition software. documented in this encounter Plan of Treatment Not on file documented as of this encounter Visit Diagnoses Diagnosis Impaired auditory discrimination, bilateral- Primary Chronic eczematous otitis externa of right ear documented in this encounter Historical Medications * This list may reflect changes made after this encounter. pen needle, diabetic (TRUEplus Pen Needle) 32 gauge x 5/32 needle TRUEplus Pen Needle 32 gauge x 5/32 predniSONE (DELTASONE) 20 mg tablet 4 insulin pump cart,cont inf,BT (Omnipod Dash Pods, Gen 4,) cartridge Omnipod Dash Pods (Gen 4) subcutaneous cartridge 4 added in this encounter Orders Outpatient Referral Count Last Ordered Date Fir st Ordered Date AMB REFERRAL TO ENT 1 08/26/2022 documented in this encounter Care Teams Photographic Restorer Relationship Specialty Start Date End Date Eron Holliday NP [address] [place] [address] [place] [address] PCP - General Pain Management 07/15/22 documented as of this encounter
--- OUTSIDE RECORDS SUMMARY | 2024-03-03 15:36 | XMS_ITS | Encounter Summary ---
Author Organization [facility] Address [address] [address] Care Team Providers Care Furniture Lumber Production Worker Name Role Phone Eron Holliday NP Primary Care Provider +1- [phone] Reason for Referral * Procedure (Routine) - Closed Specialty Diagnoses / Procedures Referred By Contac t Referred To Contact Diagnoses Primary osteoarthritis of right knee Procedures Large Joint (Hip, Knee, Shoulder) Injection: R knee Regi Khan DO [address] [facility] [address] [place] [address] Phone: tel: fax: [facility] Referral ID Status Reason Start Date Expiration Date Visits Re quested Visits Authorized [id number] Closed 08/16/2022 09/15/2023 1 1 * Diagnostic Imaging (Routine) - Closed Specialty Diagnoses / Procedures Referred By Contchristianne t Referred To Contact Diagnoses Right knee pain, unspecified chronicity Procedures XR Knee Right 3 Views Regi Khan DO [facility]0 [facility] [address] THAKUR [address] [place] [address] Phone: tel: fax: [address] [phone] Referral ID Status Reason Start Date Expiration Date Visits Re quested Visits Authorized [id number] Closed 08/07/2022 09/06/2023 1 1 Reason for Visit * Reason Comments Follow-up Encounter Details Date Type Department Care Team (Michelle st Contact Info) Description 08/07/2022 8:00 AM CDT Office Visit [facility] Orthopedics and Sports Medicine [address] [facility] [address] [place] [address] Regi Khan DO [address] [facility] [address] [place] [address] Primary osteoarthritis of right knee (Primary Dx); Right knee pain, unspecified chronicity; Pes anserine bursitis Social History Tobacco Use Types Packs/Day Years Used Date Smoking Tobacco: Former Cigarettes Q uit: 03/20/2020 Smokeless Tobacco: Never Tobacco Cessation:Counseling Given: Not Answered Comments No Sex and Gender Information Value Date Recorded Sex Assigned at Not on file Legal Sex Female 8:53 AM FAMILY LAWYER Gender Identity Female 12/26/2023 10:11 PM CDT Sexual Orientation Straight 12/26/2023 10 :11 PM CDT documented as of this encounter Last Filed Vital Signs Vital Sign Reading Time Taken Comments Blood Pressure - - Pulse - - Temperature - - Respiratory Rate - - Oxygen Saturation - - Inhaled Oxygen Concentration - - Weight 97.5 kg (215 lb) 08/07/2022 8:10 AM CDT Height 165.1 cm (5' 5 ) 08/07/2022 8:10 AM CDT Body Mass Index 35.78 08/07/2022 8:10 AM CDT documented in this encounter Progress Notes * Regi Khan DO - 08/07/2022 8:00 AM CDTAssociated Order(s): Large Joint (Hip, Knee, Shoulder) Injection: R knee Post-Procedure Diagnose(s): Primary osteoarthritis of right knee Images from the original note were not included. Follow-up visit CHIEF COMPLAINT She had concerns including Follow-up of the Right Knee. HISTORY OF PRESENT ILLNESS Sandy Lopez is a 57 y.o. female who was seen today for consultation requested by Eron Holliday NP. They present with 4/10 right knee pain that is worse with activity. Patient has not recently performed physical therapy and does not regularly taking any pain medications. She states she previous had a corticosteroid injection if years ago that helped her knee pain. She states she is a history of 2 surgeries on her right knee in the past 1 was for a bucket- handle tear of her meniscus there was some type of cartilage procedures performed in [place] in the remote past. She takes aspirin and Plavix. PAST MEDICAL HISTORY She has a past medical history of Type 1 diabetes mellitus ([facility]) (08/04/2018), Uncontrolled type 2 diabetes mellitus with hyperglycemia ([facility]) (03/14/2017), and Uncontrolled type 2 diabetes mellitus with hyperglycemia, with long-term current use of insulin ([facility]) (04/03/2017). PAST SURGICAL HISTORY She has no past surgical history on file. MEDICATIONS She has a current medication list which includes the following prescription(s): diphenhydramine, hydrocortisone, albiglutide, aspirin, atorvastatin, blood- glucose meter, buspirone, cetirizine, citalopram, clopidogrel, dexcom g6 logistics supervisor, dexcom g6 sensor, dexcom g6 transmitter, trulicity, empagliflozin, estradiol, ezetimibe, famotidine, fexofenadine, hydroxyzine, lantus, insulin lispro, humalog, omnipod dash pods (gen 4), insulin syringe-needle u-100, losartan-hydrochlorothiazide, meclizine, medroxyprogesterone, metformin, pen needle, diabetic, propranolol, sumatriptan, and zolpidem. ALLERGIES She is allergic to nsaids (non-steroidal anti-inflammatory drug), codeine, and ibuprofen. SOCIAL HISTORY She reports that she quit smoking about 2 years ago. Her smoking use included cigarettes. She has never used smokeless tobacco. No alcohol history on file. FAMILY HISTORY History reviewed. No pertinent family history. REVIEW OF SYSTEMS Constitutional: Positive for activity change Musculoskeletal: Positive for arthralgias PHYSICAL EXAM Ht 165.1 cm (5' 5 ) Wt 97.5 kg (215 lb) LMP (LMP Unknown) BMI 35.78 kg/m?? Right knee Inspection The patient has [...] Large Joint Injection/Aspiration: Consent Given by: Patient Verbal consent obtained: Yes Supporting Documentation: Indications: Pain Procedure Details: Location: Knee Site: R knee Needle Size: 22 G Approach: Anterolateral Ultrasound guided: No Fluroscopic guidance: No Medications: 4 mL lidocaine 10 mg/mL (1 %); 80 mg triamcinolone 40 mg/mL Aspirate amount (mL): 0 Patient tolerance: Patient tolerated the procedure well with no immediate complications REVIEW OF X-RAYS/STUDIES/LABS Multiple x-rays of the right knee performed on 08/07/2022 show moderate tricompartmental osteoarthritis present in the right knee most prevalent in the medial compartment of the knee. Assessment/Plan: 1. Right knee pain, unspecified chronicity - XR Knee Right 3 Views; Future 2. Primary osteoarthritis of right knee 3. Pes anserine bursitis I discussed conservative and operative treatment strategies for her right knee osteoarthritis and we elected to proceed with a right knee corticosteroid injection was performed in the anterolateral compartment of the knee as she did have previous good relief from the pain with his injection in the past. This was performed without obvious complication. I discussed she may also utilize Voltaren geltopically over her pes anserine bursitis and I would like to see her back in clinic in 3 months forreassessment. Regi Khan DO 08/07/2022 documented in this encounter Plan of Treatment Not on file documented as of this encounter Procedures Procedure Name Priority Date/Time Associated Diagnosis Comments NV ARTHROCENTESIS ASPIR&/INJ MAJOR JT/BURSA W/O US Routine 08/07/2022 8:00 AM CDT Primary osteoarthritis of right knee documented in this encounter Results * XR Knee Right 3 Views (08/07/2022 8:59 AM CDT) Anatomical Region Laterality Modality Lower Extremities, Knee Right Computed Radiography 08/08/2022 12:3 2 PM CDT Narrative 08/08/2022 12:33 PM CDT EXAM DESCRIPTION: XR KNEE RIGHT 3 VIEWS REASON FOR STUDY: PAIN ?? Medial side knee pain x 3 plus mths, NKI ?? TECHNIQUE: 3 ??radiographic view(s) of the ??right knee . COMPARISON: No prior FINDINGS: Normal mineralization. ??No acute fracture or dislocation. ??Fairly moderate joint space narrowing medial compartment. ??Minimal marginal osteophyte formation of the patella. ??No effusion. The left knee is included in the weight-bearing view of the right having a normal appearance. IMPRESSION: Moderate osteoarthritis medial compartment right knee with minimal change of the patellofemoral joint. THIS IS AN ELECTRONICALLY VERIFIED FINAL REPORT 08/08/2022 12:33 PM - Electronically signed by ??Lamont SIMONS D: ??08/08/2022 12:33 PM T: Report ID: [id number] Reading Location: ??[id number] Procedure Note Lamont Conway MD - 08/08/2022 EXAM DESCRIPTION: XR KNEE RIGHT 3 VIEWS REASON FOR STUDY: PAIN Medial side knee pain x 3 plus mths, NKI TECHNIQUE: 3 radiographic view(s) of the right knee . COMPARISON: No prior FINDINGS: Normal mineralization. No acute fracture or dislocation.Fairly moderate joint space narrowing medial compartment. Minimal marginal osteophyte formation of the patella. No effusion. The left knee is included in the weight-bearing view of the right having a normal appearance. IMPRESSION: Moderate osteoarthritis medial compartment right knee withminimal change of the patellofemoral joint. THIS IS AN ELECTRONICALLY VERIFIED FINAL REPORT 08/08/2022 12:33 PM - Electronically signed by Lamont SIMONS T: Report ID: [id number] Reading Location: [place] [address] Regi Khan DO IMG XR PROCEDURES Final Result * NV ARTHROCENTESIS ASPIR&/INJ MAJOR JT/BURSA W/O US (08/07/2022 8:00 AM CDT) Narrative Regi Khan DO - 08/07/2022 8:00 AM CDT Regi Khan DO ? 08/16/2022 ??3:19 PM Large Joint (Hip, Knee, Shoulder) Injection: R knee Performed by: Regi Khan DO Authorized by: Regi Khan DO ?? Large Joint Injection/Aspiration: ??Consent Given by: ??Patient ??Verbal consent obtained: Yes ?? Supporting Documentation: ??Indications: ??Pain Procedure Details: ??Location: ??Knee ??Site: ??R knee ??Needle Size: ??22 G ??Approach: ??Anterolateral ??Ultrasound guided: No ?Fluroscopic guidance: No ?Medications: ??4 mL lidocaine 10 mg/mL (1 %); 80 mg triamcinolone 40 mg/mL ??Aspirate amount (mL): ??0 ??Patient tolerance: ??Patient tolerated the procedure well with no immediate complications Regi Khan DO IN CLINIC/BEDSIDE ORDERABLES F inal Result documented in this encounter Visit Diagnoses Diagnosis Primary osteoarthritis of right knee- Primary Right knee pain, unspecified chronicity Pes anserine bursitis Right knee pain, unspecified chronicity documented in this encounter Administered Medications Inactive Administered Medications - up to 3 most recent administrations Medication Order MAR Action Action Date Dose Rate Site lidocaine (XYLOCAINE) 10 mg/mL (1 %) injection 4 mL 4 mL, One-Time Injection, Starting on Fri08/16/22 at 1518, For 1 dose, Indications: Administration of Local AnesthesiaIndications:Administ ration of Local Anesthesia Given 08/16/2022 3:18 PM CDT 4 mL Right Knee triamcinolone (KENALOG) 40 mg/mL injection 80 mg 80 mg, intra-articular, One-Time Injection, Starting on Fri08/16/22 at 1518, For 1 doseIndications:Primary osteoarthritis of right knee Given 08/16/2022 3:18 PM CDT 80 mg Right Knee documented in this encounter Discontinued Medications Medication Sig Discontinue Reason Start Date End Da te pediatric multivitamin-iron tablet,chewable Take by mouth 07/23/2018 08/07/2022 documented as of this encounter Historical Medications * This list may reflect changes made after this encounter. Medication Sig Dispense Quantity Refills Last Filled Start D ate End Date hydrocortisone 1 % ointment daily 07/29/2022 01/27/2023 diphenhydrAMINE 25 mg capsule daily 07/29/2022 10/29/2022 albiglutide (TANZEUM SUBQ) 50 mg 10/29/2022 added in this encounter Care Teams Furniture Lumber Production Worker Relationship Specialty Start Date End Date Eron Holliday NP [address] [place] [address] [place] [address] PCP - General Pain Management 07/15/22 documented as of this encounter
--- OUTSIDE RECORDS SUMMARY | 2024-03-03 15:36 | XMS_ITS | Encounter Summary ---
Author Organization [facility] Healthcare Address [address] [place] [address] Care Team Providers Care Electrical Power Station Technician Name Role Phone Eron Holliady NP Primary Care Provider +1- [phone] Encounter Details Date Type Department Care Team (Latest Contact Info) Description 04/26/2022 9:20 AM HYDROPONICS GROWER - 04/26/2022 11:59 PM HYDROPONICS GROWER Hospital Encounter [facility] [address] [place] [address] Discharge Disposition: Discharge to home or self care Social History Tobacco Use Types Packs/Day Years Used Date Smoking Tobacco: Former Cigarettes Q uit: 03/20/2020 Smokeless Tobacco: Never Comments No Sex and Gender Information Value Date Recorded Sex Assigned at Not on file Legal Sex Female 8:53 AM HYDROPONICS GROWER Gender Identity Female 12/26/2023 10:11 PM CDT [...] x 07/09 syringe Twice a day 07/13/2018 losartan-hydroCHL OROthiazide [...] by mouth daily 12/05/2018 4 Dexcom G6 Tableau Analyst miscIndications:T ype 2 diabetes mellitus with hyperglycemia, with long-term current use of insulin ([facility]) USE TO TEST BLOOD SUGAR DIRECTED 1 each 1 08/22/2021 4 Dexcom G6 Sensor deviceIndications :Type 2 diabetes mellitus with hyperglycemia, with long-term current use of insulin ([facility]) USE TO TEST BLOOD SUGAR DIRECTED 4 each 10 01/14/2022 3 Dexcom G6 Transmitter deviceIndications :Type 2 diabetes mellitus with hyperglycemia, with long-term current use of insulin ([facility]) USE TO TEST BLOOD SUGAR TWICE A DAY 1 each 3 04/26/2021 3 estradioL (ESTRACE) 0.5 mg tablet Take [...] hrs. e11.65 45 each 3 06/01/2021 3 medroxyPROGESTERo ne (PROVERA) 5 mg tablet [...] Priority Date/Time Associated Diagnosis Comments EGFR Routine 04/26/2022 9:20 AM HYDROPONICS GROWER POTASSIUM LEVEL Routine 04/26/2022 9:20 AM HYDROPONICS GROWER CREATININE Routine 04/26/2022 9:20 AM HYDROPONICS GROWER documented in this encounter Results * eGFR (04/26/2022 9:20 AM HYDROPONICS GROWER) eGFR 57 mL/min/1. 73 m2 OLIVIA KNAPP Comment: Interpretive [...] interpretive data was last reviewed 2020. Blood 04/26/2022 9:20 AM HYDROPONICS GROWER 04/26/2022 7:36 PM HYDROPONICS GROWER us Christophe Tan MD LAB BLOOD ORDERABLES Final Resu lt Performing Organization Address [facility]/ZIP Co de Phone Number OLIVIA KNAPP [address] [address] [facility] [place] [address] * Potassium (04/26/2022 9:20 AM HYDROPONICS GROWER) Potassium, pl 4.8 3.3 - 4.9 mmol/L [facility] Blood 04/26/2022 9:20 AM HYDROPONICS GROWER 04/26/2022 6:10 PM HYDROPONICS GROWER us Christophe Tan MD LAB BLOOD ORDERABLES Final Resu lt Performing Organization Address [facility] de Phone Number OLIVIA KNAPP [address] [address] [facility] [place] [address] * (ABNORMAL) Creatinine (04/26/2022 9:20 AM HYDROPONICS GROWER) Creatinine 1.14(H) 0.60 - 1.10 mg/dL [facility] Blood 04/26/2022 9:20 AM HYDROPONICS GROWER 04/26/2022 6:10 PM HYDROPONICS GROWER us Christophe Tan MD LAB BLOOD ORDERABLES Final Resu lt Performing Organization Address [facility] de Phone Number OLIVIA KNAPP [address] [address] [place] [address] documented in this encounter Visit Diagnoses Not on filedocumented in this encounter Care Teams Electrical Power Station Technician Relationship Specialty Start Date End Date Eron Holliday NP [address] [place] [address] [place] [address] PCP - General 06/28/21 05/08/22 documented as of this encounter
--- OUTSIDE RECORDS SUMMARY | 2024-03-03 15:36 | XMS_ITS | Encounter Summary ---
Author Organization [facility] Healthcare Address [address] [place] [address] Care Team Providers Care Stretcher Helper Name Role Phone Eron Holliday NP Primary Care Provider +1- [phone] Reason for Referral * Diagnostic Imaging (Routine) - Closed Specialty Diagnoses / Procedures Referred By Claudette smith Referred To Contact Diagnoses Right knee pain, unspecified chronicity Procedures XR Knee Right 3 Views Regi Khan DO [facility] [address] THAKUR [address] [place] [address] Phone: tel: fax: [address] [address] Referral ID Status Reason Start Date Expiration Date Visits Re quested Visits Authorized [id number] Closed 08/07/2022 09/06/2023 1 1 Reason for Visit * Diagnostic Imaging (Routine) - Closed Specialty Diagnoses / Procedures Referred By Claudette smith Referred To Contact Diagnoses Right knee pain, unspecified chronicity Procedures XR Knee Right 3 Views Regi Khan DO [address] [facility] [address] [place] [address] Phone: tel: fax: [address] [phone] Referral ID Status Reason Start Date Expiration Date Visits Re quested Visits Authorized [id number] Closed 08/07/2022 09/06/2023 1 1 Encounter Details Date Type Department Care Team (Latest Contact Info) Description 08/07/2022 8:54 AM CDT - 08/07/2022 11:59 PM CDT Hospital Encounter [facility] [address] [place] [address] Right knee pain, unspecified chronicity Discharge Disposition: Discharge to home or self care Social History Tobacco Use Types Packs/Day Years Used Date Smoking Tobacco: Former Cigarettes Q uit: 03/20/2020 Smokeless Tobacco: Never Comments No Sex and Gender Information Value Date Recorded Sex Assigned at Not on file Legal Sex Female 8:53 AM B OPERATOR Gender Identity Female 12/26/2023 10:11 PM [...] mg total) by mouth nightly as needed albiglutide (TANZEUM SUBQ) 50 mg 3 aspirin 81 mg enteric coated tablet aspirin [...] by mouth daily 12/05/2018 4 Dexcom G6 Digital Performance Analyst miscIndications:T ype 2 diabetes mellitus with [...] A DAY 1 each 3 05/28/2022 4 diphenhydrAMINE 25 mg capsule daily 07/29/2022 3 dulaglutide (Trulicity) 4.5 mg/0.5 mL pen injectorIndicatio ns:type 2 diabetes mellitus Inject 0.5 mL (4.5 mg total) under the skin every 7 days E11.65 6 mL 3 07/16/2022 3 empagliflozin (Jardiance) 10 mg tablet Jardiance 10 mg tablet 3 estradioL (ESTRACE) 0.5 mg tablet Take [...] CHANGE POD EVERY 48 HOURS 15 each 05/31/2022 4 medroxyPROGESTERo ne (PROVERA) 5 mg tablet [...] VIEWS Schedule Routine, Read Routine (OP Routine) 08/07/2022 8:59 AM CDT Right knee pain, unspecified chronicity documented in this encounter Results * XR [...] 12:33 PM - Electronically signed by ??Lamont Conway M.D. MJ D: ??08/08/2022 12:33 PM T: Report ID: [id number] Reading Location: ??[id number] Procedure Note Lamont Conway MD - 08/08/2022 [...] 12:33 PM - Electronically signed by Lamont Conway M.D. MJ T: Report ID: [id number] Reading Location: [id number] us Regi Khan DO IMG XR PROCEDURES Final Result documented in this encounter Visit Diagnoses Diagnosis Right knee pain, unspecified chronicity documented in this encounter Care Teams Stretcher Helper Relationship Specialty Start Date End Date Eron Holliday NP [address] [place] [address] [place] [address] PCP - General Pain Management 07/15/22 documented as of this encounter
--- OUTSIDE RECORDS SUMMARY | 2024-03-03 15:36 | XMS_ITS | Encounter Summary ---
Author Organization [facility] Healthcare Address [address] [place] [address] Care Team Providers Care Online Health And Fitness Coach Name Role Phone Eron Holliday NP Primary Care Provider +1- [phone] Encounter Details Date Type Department Care Team (Latest Contact Info) Description 09/23/2022 10:34 AM CDT - 09/23/2022 11:59 PM CDT Hospital Encounter [facility] [address] [place] [id number] Discharge Disposition: Discharge to home or self care Social History Tobacco Use Types Packs/Day Years Used Date Smoking Tobacco: Former Cigarettes Q uit: 03/20/2020 Smokeless Tobacco: Never Comments No Sex and Gender Information Value Date Recorded Sex Assigned at Not on file Legal Sex Female 8:53 AM AQUATIC FACILITY MANAGER Gender Identity Female 12/26/2023 10:11 PM [...] by mouth daily 12/05/2018 4 Dexcom G6 Trouble Locater miscIndications:T ype 2 diabetes mellitus with hyperglycemia, with long-term current use of insulin ([facility]) USE TO TEST BLOOD SUGAR DIRECTED 1 each 1 08/22/2021 4 Dexcom G6 Sensor deviceIndications :Type 2 diabetes mellitus with hyperglycemia, with long-term current use of insulin ([facility]) USE TO TEST BLOOD SUGAR DIRECTED 4 each 10 01/14/2022 3 Dexcom G6 Transmitter deviceIndications :Type 2 diabetes mellitus with hyperglycemia, with long-term current use of insulin ([facility]) USE TO TEST BLOOD SUGAR TWICE [...] Priority Date/Time Associated Diagnosis Comments EGFR Routine 09/23/2022 10:34 AM CDT POTASSIUM LEVEL Routine 09/23/2022 10:34 AM CDT CREATININE Routine 09/23/2022 10:34 AM CDT documented in this encounter Results * eGFR (09/23/2022 10:34 AM CDT) [facility] eGFR 61 mL/min/1. 73 m2 OLIVIA KNAPP Comment: Interpretive [...] interpretive data was last reviewed 2020. Blood 09/23/2022 10:3 4 AM CDT 09/23/2022 2:07 PM CDT Christophe Tan MD LAB BLOOD ORDERABLES Final Resu lt Performing Organization Address City/[facility]/ZIP Co de Phone Number OLIVIA KNAPP [address] [address] [employer] [place], [place] [id number] * (ABNORMAL) Potassium (09/23/2022 10:34 AM CDT) Potassium, pl 5.0(H) 3.3 - 4.9 mmol/L [facility] Blood 09/23/2022 10:3 4 AM CDT 09/23/2022 2:05 PM CDT Christophe Tan MD LAB BLOOD ORDERABLES Final Resu lt PEREZSTEFFANY KNAPP [address] [address] [place] [address] * Creatinine (09/23/2022 10:34 AM CDT) Creatinine 1.07 0.60 - 1.10 mg/dL [facility] Blood 09/23/2022 10:3 4 AM CDT 09/23/2022 2:05 PM CDT us Christophe Tan MD LAB BLOOD ORDERABLES Final Resu lt OLIVIA KNAPP [address] [address] Department [place] [address] documented in this encounter Visit Diagnoses Not on filedocumented in this encounter Care Teams Online Health And Fitness Coach Relationship Specialty Start Date End Date Eron Holliday NP [address] [facility] [place] [address] PCP - General Pain Management 07/15/22 documented as of this encounter
--- OUTSIDE RECORDS SUMMARY | 2024-03-03 15:36 | XMS_ITS | Encounter Summary ---
Author Organization [facility] Healthcare Address [address] [place] [address] Care Team Providers Care Medical Records Receptionist Name Role Phone Alis Huntley SALONI Primary Care Provider Encounter Details Date Type Department Care Team (Latest Contact Info) Description 06/28/2022 3:35 PM CDT - 06/28/2022 11:59 PM CDT Hospital Encounter [facility] [address] [place], [place] [id number] Discharge Disposition: Discharge to home or self care Social History Tobacco Use Types Packs/Day Years Used Date Smoking Tobacco: Former Cigarettes Q uit: 03/20/2020 Smokeless Tobacco: Never Comments No Sex and Gender Information Value Date Recorded Sex Assigned at Not on file Legal Sex Female 8:53 AM DIRECTOR OF PERSONNEL Gender Identity Female 12/26/2023 10:11 PM CDT [...] by mouth daily 12/05/2018 4 Dexcom G6 Concrete Form Setter miscIndications:T ype 2 diabetes mellitus with hyperglycemia, with long-term current use of insulin ([facility]) USE TO TEST BLOOD SUGAR DIRECTED 1 each 1 08/22/2021 4 Dexcom G6 Sensor deviceIndications :Type 2 diabetes mellitus with hyperglycemia, with long-term current use of insulin ([facility]) USE TO TEST BLOOD SUGAR DIRECTED 4 each 10 01/14/2022 3 Dexcom G6 Transmitter deviceIndications :Type 2 diabetes mellitus with hyperglycemia, with long-term current use of insulin ([facility]) USE TO TEST BLOOD SUGAR TWICE A DAY 1 each 3 05/28/2022 4 estradioL (ESTRACE) 0.5 mg tablet Take [...] 48 HOURS 15 each 11 05/31/2022 4 medroxyPROGESTERo ne (PROVERA) 5 mg [...] mg(2 mg/1.5 mL) pen injector 09/07/2019 4 Trulicity 4.5 mg/0.5 mL pen injector 06/26/2022 3 documented as of this encounter Discharge Disposition Disposition Code Departure Means Destination Discharge to home or self care documented in this encounter Plan of Treatment Not on file documented as of this encounter Procedures Procedure Name Priority Date/Time Associated Diagnosis Comments EGFR Routine 06/28/2022 3:35 PM CDT POTASSIUM LEVEL Routine 06/28/2022 3:35 PM CDT CREATININE Routine 06/28/2022 3:35 PM CDT documented in this encounter Results * eGFR (06/28/2022 3:35 PM CDT) [facility] eGFR 50 mL/min/1. 73 m2 OLIVIA KNAPP Comment: Interpretive [...] interpretive data was last reviewed 2020. Blood 06/28/2022 3:35 PM CDT 06/28/2022 8:03 PM CDT us Christophe Tan MD LAB BLOOD ORDERABLES Final Resu lt Performing Organization Address [facility] Co de Phone Number OLIVIA KNAPP [phone] [address] [facility] [place] [address] * Potassium (06/28/2022 3:35 PM CDT) Potassium, pl 4.7 3.3 - 4.9 mmol/L [facility] Blood 06/28/2022 3:35 PM CDT 06/28/2022 6:25 PM CDT us Christophe Tan MD LAB BLOOD ORDERABLES Final Resu lt Performing Organization Address [facility] de Phone Number OLIVIA KNAPP [address] [address] [place] [address] * (ABNORMAL) Creatinine (06/28/2022 3:35 PM CDT) Creatinine 1.27(H) 0.60 - 1.10 mg/dL [facility] Blood 06/28/2022 3:35 PM CDT 06/28/2022 6:23 PM CDT us Christophe Tan MD LAB BLOOD ORDERABLES Final Resu lt Performing Organization Address [facility] Co de Phone Number OLIVIA KNAPP [phone] [address] [facility] [place] [address] documented in this encounter Visit Diagnoses Not on filedocumented in this encounter Care Teams Medical Records Receptionist Relationship Specialty Start Date End Date Alis Huntley DNP PCP - General Family Medicine 05/09/22 07/14/22 documented as of this encounter
--- OUTSIDE RECORDS SUMMARY | 2024-03-03 15:36 | XMS_ITS | Encounter Summary ---
Author Organization [facility] Address [address] [place] [address] Phone Care Team Providers Care Physical Therapy Coordinator Name Role Phone Eron Holliday NP Primary Care Provider +1- [phone] Reason for Visit * Reason Comments Audiometric Evaluation Encounter Details Date Type Department Care Team (Latest Contact Info) Description 08/26/2022 10:30 AM CDT Procedure visit [facility] Ot[facility]ology [address] [place] [address], [address] [place] [address] Sensorineural hearing loss, bilateral (Primary Dx); Otalgia, right ear Social History Tobacco Use Types Packs/Day Years Used Date Smoking Tobacco: Former Cigarettes Q uit: 03/20/2020 Smokeless Tobacco: Never Comments No Sex and Gender Information Value Date Recorded Sex Assigned at Not on file Legal Sex Female 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 - 08/26/2022 10:30 AM CDT Images from the original note were not included. Procedures Alla Linn, [facility] PATIENT: Sandy Lopez : 1965 TYPE OF SERVICE: Comprehensive Audiometric Evaluation DATE OF SERVICE: 08/26/2022 Referral Source: Eron Holliday NP Audiogram completed per physician referral. The patient had an appointment with Rupal Rendon NP directly following today's evaluation. See scanned audiogram for results. Detailed medical history was obtained by medical educator and reviewed. Results were reviewed with the patient by pack room operator and/or physician. documented in this encounter Plan of Treatment Not on file documented as of this encounter Procedures Procedure Name Priority Date/Time Associated Diagnosis Comments AUDBASE RESULTS 08/26/2022 10:11 AM CDT documented in this encounter Results * AUDBASE RESULTS (08/26/2022 10:11 AM CDT) Provider Scanning AUDIOLOGY SERVICES ORDERABLES Final Result documented in this encounter Visit Diagnoses Diagnosis Sensorineural hearing loss, bilateral- Primary Otalgia, right ear documented in this encounter Care Teams Physical Therapy Coordinator Relationship Specialty Start Date End Date Eron Holliday NP [address] [place] [address] [place] [address] PCP - General Pain Management 07/15/22 documented as of this encounter
--- OUTSIDE RECORDS SUMMARY | 2024-03-03 15:36 | XMS_ITS | Encounter Summary ---
Author Organization [facility] Medical Group Address [address] [place] [address] Care Team Providers Care Beading Installer Name Role Phone Eron Holliday NP Primary Care Provider +1- [phone] Reason for Visit * Reason Comments Diabetes Type 2 Encounter Details Date Type Department Care Team (Late st Contact Info) Description 04/15/2022 10:30 AM CHEMICAL SPRAYER Office Visit [facility] Medical [facility] of [address] [place] [address] Marialuisa Tyson, CHRISTOPHER [address] [address] Type 2 diabetes mellitus with hyperglycemia, with long-term current use of insulin ([facility] ([facility]) (Primary Dx); Type 2 diabetes mellitus with diabetic peripheral angiopathy without gangrene, with long-term current use of insulin ([facility]) (HCC); Type 2 diabetes mellitus with microalbuminuria, with long-term current use of insulin ([facility]) ([facility]); Insulin pump titration Social History Tobacco Use Types Packs/Day Years Used Date Smoking Tobacco: Former Cigarettes Q uit: 03/20/2020 Smokeless Tobacco: Never Tobacco Cessation:Counseling Given: Not Answered Comments No Sex and Gender Information Value Date Recorded Sex Assigned at Not on file Legal Sex Female 8:53 AM CHEMICAL SPRAYER Gender Identity Female 12/26/2023 10:11 PM CDT Sexual Orientation Straight 12/26/2023 10 :11 PM CDT documented as of this encounter Last Filed Vital Signs Vital Sign Reading Time Taken Comments Blood Pressure 138/60 04/15/2022 10:35 AM CHEMICAL SPRAYER Pulse - - Temperature - - Respiratory Rate - - Oxygen Saturation - - Inhaled Oxygen Concentration - - Weight 99.2 kg (218 lb 12.8 oz) 023 10:35 AM CHEMICAL SPRAYER Height 165.1 cm (5' 5 ) 04/15/2022 10:3 5 AM CHEMICAL SPRAYER Body Mass Index 36.41 04/15/2022 10:35 AM CHEMICAL SPRAYER documented in this encounter Patient Instructions * Patient Instructions* Marialuisa Tyson, CHRISTOPHER - 04/15/2022 10:30 AM CHEMICAL SPRAYER Thanks for coming in today. I am thankful you have trusted me with your care, and hope that you received EXCELLENT care today! Please do not hesitate to call if you have any questions or concerns at [phone]. You may receive a phone call or text asking about your care today. I would love to hear your input and again, hope your visit was as EXCELLENT as possible, even if you were not feeling your best! Medications: Please take medications as prescribed. Continue on omnipod insulin delivery system Continue metformin 1000mg twice a day. Monitoring: Check blood sugar continuously with DExcom [...] than once per week. See the Dietitian, Tune Up Mechanic . Call Centralized Scheduling at [phone] to make an appointment. Exercise: Try moving [...] a source of fast-acting carbohydrate with you. ICAL SPRAYER ICAL SPRAYER ICAL SPRAYER documented in this encounter Progress Notes * Marialuisa Tyson NP - 04/15/2022 10:30 AM CST Images from the original note were not included. Patient ID: Sandy Lopez is a 56 y.o. female. Chief Complaint Diabetes Type 2 Today visit is a follow up visit. She has Type 2 Diabetes associated with microalbuminurea. She does not exercises but stays active with family and friends. 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 She eats 2-3 meals/day. She monitors blood sugar by wearing the DexCom 6sensor and receives insulin per the Omnipod insulin delivery system. Her Dexcom 6 was downloaded and reviewed. She denies hypoglycemia. Her weight has increased by 5lbs since her last office visit. She is expecting her 1st grandchild in June of 2022, and she is very excited. Today's visit is to review labs and discuss future plan. Diabetes regimen: Omnipod - continue 0000-2.25, 0400-2.45 ic-6, isf-20. A!-3 Metformin 1000mg twicea day. She stopped her Trulicity as she has not been able to get it. She has joined a research study which [...] Labs: Lab Results Component Value Date HGBA1C 7.2 04/15/2022 HGBA1C 6.5 12/28/2021 HGBA1C 7.7 09/13/2021 HGBA1C 7.8 06/01/2021 HGBA1C 8.2 12/01/2020 HGBA1C 8.3 08/18/2020 Chemistry Lab Results Component Value Date SODIUM 141 09/19/2021 POTASSIUM 4.1 03/28/2022 CHLORIDE 103 09/19/2021 CO2 29 09/19/2021 ANIONGAP 9 09/19/2021 BUNSER 11 09/19/2021 CREATININE 1.06 03/27/2022 GLUCOSE 130 09/19/2021 CALCIUM 9.7 09/19/2021 BILITOT 0.2 07/13/2021 ALBUMIN 4.2 09/19/2021 GFRNAA 62 03/27/2022 ALKPHOS 72 07/13/2021 AST 35 07/13/2021 ALT [...] hyperglycemia, with long-term current use of insulin ([facility] ([facility]) (Primary) Assessment & Plan: This is a [...] less than 70. Continue atorvastatin and zetia. Type 2 diabetes mellitus with diabetic peripheral angiopathy without gangrene, with long-term current use of insulin ([facility] ([facility]) Assessment & Plan: Sees Dr. Dixon for Cardiology. Has stent [...] - POCT glucose - POCT hemoglobin A1c Type 2 diabetes mellitus with microalbuminuria, with long-term current use of insulin ([facility] ([facility]) Assessment & Plan: This is a chronic condition which is worsening and not at goal. urine microalbumin/creatinine ratio - worsening. Latest Reference Range & Units 07/13/21 08:13 Albumin, Ur mg/L 5,983.8 Creatinine Ur mg/dL 194.6 Albumin Creatinine Ratio, Ur 1 - 29 mg/g 3,075 (H) (H): Data is abnormally high Continue on Losartan 25 mg daily/ HCTZ, goal <[address] Bhagat for nephrology Orders: - POCT glucose - POCT hemoglobin A1c Insulin pump titration Assessment & Plan: This is a chronic condition which is at goal. Pump has been off due to pdm failure. Type of insulin pump-Omnipod insulin delivery system with DexCom 6 sensor Basal 0000-2.65 IC -6 ISF-20 Active insulin time 3hrs. TARGET GLUCOSE 110 Total daily dose of insulin-129 units Bolus- 66 units (51%) Basal 63 units (49%) Continuous glucose monitor (cgm) applied from 04/02/2022 to 04/15/2022 This device was placed for monitor and treatment of blood sugar. Interpretation of data- In target 51% of the time without hypoglycemia. Average blood sugar 185. Nohypoglycemia noted Discussed and educated on eating a healthy low carb diet, include fresh fruits and vegetables daily. Encouraged to try moving at least a total of 30 minutes/day. Just move more. Instructed to wash, dry lotion and check feet daily. Discussed importance of avoiding hypoglyce reginaldo and treatment of hypoglycemia. Instructed to notify office if blood sugars are less than 80 or greater than 250 for 3 days Discussion of treatment plan and prescribed medications. Return in about 3 months (around 07/13/2022). Marialuisa Tyson NP ICAL SPRAYER documented in this encounter Miscellaneous Notes * Assessment & Plan Note - Marialuisa Tyson NP - 04/15/2022 12:42 PM CHEMICAL SPRAYER Associated Problem(s): Omnipod Dash Insulin pump in [...] time without hypoglycemia. Average blood sugar 185. Nohypoglycemia noted ICAL SPRAYER * Assessment & Plan Note - Marialuisa Tyson NP - 04/15/2022 12:41 PM CHEMICAL SPRAYER Associated Problem(s): Type 2 diabetes mellitus with hypoglycemia without coma, with long-term current use of insulin (HCC) >>ASSESSMENT AND PLAN FOR TYPE 2 DIABETES MELLITUS WITH HYPERGLYCEMIA, WITH LONG-TERM CURRENTUSE OF INSULIN (HCC) WRITTEN ON 04/15/2022 12:41 PM BY MARIALUISA TYSON CHRISTOPHER This is a chronic condition which [...] GANGRENE, WITH LONG-TERM CURRENT USE OF INSULIN ([facility]) (HCC) WRITTEN ON 04/15/2022 12:42 PM BY MARIALUISA TYSON, CHRISTOPHER Sees Dr. Dixon for Cardiology. [...] less than 70. Continue atorvastatin and zetia. ICAL SPRAYER * Assessment & Plan Note - Marialuisa Tyson NP - 04/15/2022 12:38 PM CHEMICAL SPRAYER Associated Problem(s): Type 2 diabetes mellitus with diabetic peripheral angiopathy without gangrene, with long-term current use of insulin ([facility]) (HCC) (Deleted) Sees Dr. Dixon for Cardiology. Has stent [...] less than 70. Continue atorvastatin and zetia. ICAL SPRAYER ICAL SPRAYER * Assessment & Plan Note - Marialuisa Tyson NP - 04/15/2022 12:37 PM CHEMICAL SPRAYER Associated Problem(s): Type 2 diabetes mellitus with microalbuminuria, with long-term current use of insulin ([facility]) This is a chronic condition which is worsening and not at goal. urine microalbumin/creatinine ratio -??worsening. Latest Reference Range & Units 07/13/21 08:13 Albumin, Ur mg/L 5,983.8 Creatinine Ur mg/dL 194.6 Albumin Creatinine Ratio, Ur 1 - 29 mg/g 3,075 (H) (H): Data is abnormally high?? Continue on Losartan 25 mg daily/ HCTZ, ?goal <[address] Bhagat for nephrology ICAL SPRAYER documented in this encounter Plan of Treatment Not on file documented as of this encounter Procedures Procedure Name Priority Date/Time Associated Diagnosis Comments POCT HEMOGLOBIN A1C Routine 04/15/2022 1 0:40 AM CHEMICAL SPRAYER Type 2 diabetes mellitus with diabetic peripheral angiopathy without gangrene, with long-term current use of insulin ([facility] ([facility]) Type 2 diabetes mellitus with microalbuminuria, with long-term current use of insulin ([facility] ([facility]) POCT GLUCOSE Routine 04/15/2022 10:36 AM CHEMICAL SPRAYER Type 2 diabetes mellitus with diabetic peripheral angiopathy without gangrene, with long-term current use of insulin ([facility] ([facility]) Type 2 diabetes mellitus with microalbuminuria, with long-term current use of insulin ([facility] ([facility]) documented in this encounter Results * POCT hemoglobin A1c (04/15/2022 10:40 AM CHEMICAL SPRAYER) Hemoglobin A1C, POC 7.2 % Blood 04/15/2022 10:4 0 AM CHEMICAL SPRAYER Marialuisa Tyson COLOR CONTROL SUPERVISOR POINT OF CARE TEST ORDERABLES F inal Result * POCT glucose (04/15/2022 10:36 AM CHEMICAL SPRAYER) Glucose Blood, POC 120 mg/dL Blood 04/15/2022 10:3 6 AM CHEMICAL SPRAYER Marialuisa Tyson COLOR CONTROL SUPERVISOR POINT OF CARE TEST ORDERABLES F inal Result documented in this encounter Visit Diagnoses Diagnosis Type 2 diabetes mellitus with hyperglycemia, with long-term current use of insulin (HCC)- Primary Type 2 diabetes mellitus with diabetic peripheral angiopathy without gangrene, with long-term current use of insulin (HCC) Type 2 diabetes mellitus with microalbuminuria, with long-term current use of insulin ([facility]) Insulin pump titration Fitting and adjustment of insulin pump documented in this encounter Discontinued Medications Medication Sig Discontinue Reason Start Date End Da te losartan (COZAAR) 100 mg tablet 12/17/2021 04/15/2022 dulaglutide (Trulicity) 4.5 mg/0.5 mL pen injector Inject 0.5 mL (4.5 mg total) under the skin every 7 days E11.65 Therapy completed 01/15/2022 04/15/2022 documented as of this encounter Historical Medications * This list may reflect changes made after this encounter. fexofenadine (ADELA) 180 mg tablet Take 1 tablet (180 mg total) by mouth daily 04/09/2022 losartan-hydroCHL OROthiazide (HYZAAR) 100-12.5 mg per tablet Take 1 tablet by mouth daily 04/09/2022 meclizine (ANTIVERT) 25 mg tablet Take 1 tablet (25 mg total) by mouth as needed 02/11/2022 hydrOXYzine (ATARAX) 25 mg tablet 01/14/2022 09/22/2023 added in this encounter Care Teams Beading Installer Relationship Specialty Start Date End Date Eron Holliday NP [address] [place] [address] [place] [address] PCP - General 06/28/21 05/08/22 documented as of this encounter
--- OUTSIDE RECORDS SUMMARY | 2024-03-03 15:36 | XMS_ITS | Encounter Summary ---
Author Organization [facility] Healthcare Address [address] [place] [address] Care Team Providers Care Digital Media Specialist Name Role Phone Eron Holliday NP Primary Care Provider +1- [phone] Encounter Details Date Type Department Care Team (Latest Contact Info) Description 02/13/2022 8:00 AM EASTERN PHILOSOPHY PROFESSOR - 02/13/2022 11:59 PM EASTERN PHILOSOPHY PROFESSOR Hospital Encounter [facility] [address] [place] [address] Discharge Disposition: Discharge to home or self care Social History Tobacco Use Types Packs/Day Years Used Date Smoking Tobacco: Former Cigarettes Q uit: 03/20/2020 Smokeless Tobacco: Never Comments No Sex and Gender Information Value Date Recorded Sex Assigned at Not on file Legal Sex Female 8:53 AM EASTERN PHILOSOPHY PROFESSOR Gender Identity Female 12/26/2023 10:11 PM [...] by mouth daily 12/05/2018 4 Dexcom G6 It Communications Manager miscIndications:T ype 2 diabetes mellitus with hyperglycemia, [...] INSULIN PUMP MAX OF 150 UNITS DAILY DIRECTED e11.65 50 mL 5 09/26/2021 3 insulin pump cart,cont inf,BT (Omnipod Dash [...] Procedure Name Priority Date/Time Associated Diagnosis Comments URINALYSIS AND REFLEX TO MICROSCOPIC AND CULTURE Routine 02/13/2022 8:00 AM EASTERN PHILOSOPHY PROFESSOR ALBUMIN CREATININE RATIO, URINE Routine 02/13/2022 8:00 AM EASTERN PHILOSOPHY PROFESSOR URINALYSIS, MICROSCOPIC ONLY Routine 02/13/2022 8:00 AM EASTERN PHILOSOPHY PROFESSOR documented in this encounter Results * Urinalysis, microscopic only (02/13/2022 8:00 AM EASTERN PHILOSOPHY PROFESSOR) WBC, ur 0-5 0 - 5 /HPF [facility] RBC, ur 0-2 0 - 2 /HPF [facility] Epithelial cells, squamous, ur 1-5 0 - 5 /HPF [facility] Culture Reflex Comment Reflex conditions for urine culture (WBC >10) not met. [facility] Urine 02/13/2022 8:00 AM EASTERN PHILOSOPHY PROFESSOR 02/13/2022 6:19 PM EASTERN PHILOSOPHY PROFESSOR us Christophe Tan MD LAB URINE ORDERABLES Final Resu lt [facility] [address] [address] Department [place] [address] * (ABNORMAL) Albumin Creatinine Ratio, Urine (02/13/2022 8:00 AM EASTERN PHILOSOPHY PROFESSOR) Albumin Ur 1,183.4 mg/L OLIVIA Comment: Interpretive Data No reference range established. Current interpretive data was last revised 2018. Creatinine Ur 53.3 mg/dL OLIVIA Comment: Interpretive Data No reference range established. Current interpretive data was last revised 2018. Albumin Creatinine Ratio, Ur 2,220(H) 1 - 29 mg/g [facility] Urine 02/13/2022 8:00 AM EASTERN PHILOSOPHY PROFESSOR 02/13/2022 6:19 PM EASTERN PHILOSOPHY PROFESSOR us Christophe Tan MD LAB URINE ORDERABLES Final Resu lt Performing Organization Address [facility] de Phone Number CERSTEFFANY [address] [address] Department [place] [address] * (ABNORMAL) Urinalysis reflex to microscopic and culture Urine (02/13/2022 8:00 AM EASTERN PHILOSOPHY PROFESSOR) Color, ur Yellow Yellow [facility] Clarity, ur Clear Clear [facility] Specific gravity, ur 1.009 1.003 - 1.030 [facility] pH, urine 5.5 [facility] Protein, ur ql 2+(A) Negative [facility] Glucose, ur ql Negative Negative [facility] Ketones, ur Negative Negative [facility] Bilirubin, ur Negative Negative [facility] Blood, ur Negative Negative [facility] Urobilinogen, ur 0.2 <2.0 mg/dL [facility] Nitrite, ur Negative Negative [facility] Leukocyte esterase, ur Negative Negative [facility] UA reflex comment Reflex to microscopic UA will be performed. [facility] Urine 02/13/2022 8:00 AM EASTERN PHILOSOPHY PROFESSOR 02/13/2022 6:19 PM EASTERN PHILOSOPHY PROFESSOR Narrative [facility] - 02/13/2022 7:26 PM EASTERN PHILOSOPHY PROFESSOR ?? Urine pH is affected by diet, medications, systemic acid-base disturbances, and renal tubular function. ??pH may affect urinary stone formation. ??For example, urine pH below 6.0 may help reduce the tendency for calcium phosphate stones and pH greater than 6.0 may reduce the tendency for uric acid stone formation. Source: [employer] Last revised 03-06-2017 us Christophe Tan MD LAB MICROBIOLOGY - GENERAL [place]DE [place] Edited Result - Final Performing Organization Address [facility] Co de Phone Number OLIVIA [address] [address] Department [place] [address] documented in this encounter Visit Diagnoses Not on filedocumented in this encounter Care Teams Digital Media Specialist Relationship Specialty Start Date End Date Eron Holliday, CHRISTOPHER [address] [place] [address] PCP - General 06/28/21 05/08/22 documented as of this encounter
--- OUTSIDE RECORDS SUMMARY | 2024-03-03 15:36 | XMS_ITS | Encounter Summary ---
Author Organization [facility] Address [address] [place] [address] Care Team Providers Care Padder Name Role Phone Alis Huntley SALONI Primary Care Provider Reason for Referral * Diagnostic Imaging (Routine) - Closed Specialty Diagnoses / Procedures Referred By Claudette smith Referred To Contact Diagnoses Tendinopathy of right rotator cuff Procedures XR Shoulder Right 2 or More Views Regi Khan DO [address] [place] [address] [address] THAKUR [address] [place] [address] Phone: tel: fax: [address] [phone] Referral ID Status Reason Start Date Expiration Date Visits Re quested Visits Authorized [id number] Closed 06/24/2022 07/24/2023 1 1 Reason for Visit * Diagnostic Imaging (Routine) - Closed Specialty Diagnoses / Procedures Referred By Claudette smith Referred To Contact Diagnoses Tendinopathy of right rotator cuff Procedures XR Shoulder Right 2 or More Views Regi Khan DO [facility] [address] THAKUR [address] [place] [address] Phone: tel: fax: [address] [phone] Referral ID Status Reason Start Date Expiration Date Visits Re quested Visits Authorized [id number] Closed 06/24/2022 07/24/2023 1 1 Encounter Details Date Type Department Care Team (Latest Contact Info) Description 06/24/2022 9:57 AM CDT - 06/24/2022 11:59 PM CDT Hospital Encounter [facility] [address] [place] [address] Tendinopathy of right rotator cuff Discharge Disposition: Discharge to home or self care Social History Tobacco Use Types Packs/Day Years Used Date Smoking Tobacco: Former Cigarettes Q uit: 03/20/2020 Smokeless Tobacco: Never Comments No Sex and Gender Information Value Date Recorded Sex Assigned at Not on file Legal Sex Female 8:53 AM TREAD BUILDER Gender Identity Female 12/26/2023 10:11 PM [...] hyperglycemia, with long-term current use of insulin ([facility]) Use daily or as directed for monitoring of diabetes 1 each 07/04/2017 4 busPIRone (BUSPAR) 5 mg tablet Take 1 tablet (5 mg total) by mouth 2 (two) times a day 12/17/2021 4 cetirizine (ZyrTEC) 10 mg tablet Take 1 tablet (10 mg total) by mouth daily 12/05/2018 4 Dexcom G6 Compliance Clerk miscIndications:T ype 2 diabetes mellitus with hyperglycemia, with long-term current use of insulin ([facility]) USE TO TEST BLOOD SUGAR DIRECTED 1 each 1 08/22/2021 4 Dexcom G6 Sensor deviceIndications :Type 2 diabetes mellitus with hyperglycemia, with long-term current use of insulin ([facility]) USE TO TEST BLOOD SUGAR DIRECTED 4 each 10 01/14/2022 3 Dexcom G6 Transmitter deviceIndications :Type 2 diabetes mellitus with hyperglycemia, with long-term current use of insulin ([facility]) USE TO TEST BLOOD SUGAR TWICE A [...] VIEWS Schedule Routine, Read Routine (OP Routine) 06/24/2022 10:04 AM CDT Tendinopathy of right rotator cuff documented in this encounter Results * XR [...] 12:24 PM - Electronically signed by ??Lamont iHdalgo M.D. D: ??06/24/2022 12:24 PM T: Report ID: [id number] Reading Location: ??[id number] Procedure Note Lamont Hidalgo MD - 06/24/2022 [...] by Lamont Hidalgo M.D. T: Report ID: [id number] Reading Location: [id number] Regi Khan DO IMG XR PROCEDURES Final Result documented in this encounter Visit Diagnoses Diagnosis Tendinopathy of right rotator cuff documented in this encounter Care Teams Padder Relationship Specialty Start Date End Date Alis Huntley DNP PCP - General Family Medicine 05/09/22 07/14/22 documented as of this encounter
--- OUTSIDE RECORDS SUMMARY | 2024-03-03 15:37 | XMS_ITS | Encounter Summary ---
Author Organization [facility] Address [address] [place] [address] Care Team Providers Care Magneto Electrician Name Role Phone Marialuisa Tyson NP Primary Care Provider [phone] Reason for Visit * Reason Comments Diabetes Type 2 Encounter Details Date Type Department Care Team (Late st Contact Info) Description 12/01/2020 10:00 AM CDT Office Visit [facility] [address] [place] [address] Marialuisa Tyson, PRECISION MACHINE OPERATOR [address] [address] Type 2 diabetes mellitus with hyperglycemia, with long-term current use of insulin (CMS/HCC) (HCC) (Primary Dx); Insulin pump titration; Hyperlipidemia associated with type 2 diabetes mellitus (HCC) Social History Tobacco Use Types Packs/Day Years Used Date Smoking Tobacco: Every Day Cigarettes Last attempted to quit: 03/20/2020 Smokeless Tobacco: Never Comments Unknown Sex and Gender Information Value Date Recorded Sex Assigned at Not on file 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 Gender Identity Female 12/26/2023 10:11 PM CDT Sexual Orientation Straight 12/26/2023 10 :11 PM CDT documented as of this encounter Last Filed Vital Signs Vital Sign Reading Time Taken Comments Blood Pressure 102/50 12/01/2020 10:23 AM CDT Pulse - - Temperature - - Respiratory Rate - - Oxygen Saturation - - Inhaled Oxygen Concentration - - Weight 99.2 kg (218 lb 12.8 oz) 021 10:23 AM CDT Height 165.1 cm (5' 5 ) 12/01/2020 10:2 3 AM CDT Body Mass Index 36.41 12/01/2020 10:23 AM CDT documented in this encounter Patient Instructions * Patient Instructions* Marialuisa Tyson NP - 12/01/2020 10:00 AM CDT Thanks for coming in today. I am thankful you have trusted me with your care, and hope that you received EXCELLENT care today! Please do not hesitate to call if you have any questions or concerns at [phone]. You may receive a phone call or text asking about your care today. I would love to hear your input and again, hope your visit was as EXCELLENT as possible, even if you were not feeling your best! Medications: ??? Please take medications as prescribed. Continue on current insulin pump setting Monitoring: ??? Check blood sugar continuously with Dexcom 6 We will be requesting to see blood sugar at your next visit. ??? Call office if blood sugars is dropping below 80. ??? Call office if your blood sugar is greater than 250, for 3 days. A medication adjustment is needed. Monitor your weight, even a 10 pound weight loss can help to reduce medication. Hypoglycemia is a blood sugar below 80. ??? If your blood sugar level is below 80, eat or drink 15 grams of fast-acting carbohydrate. (examples: 4 oz (?? cup) of fruit juice, 4 oz of regular soda or 4 glucose tablets.) ?? Check your blood sugar level 15 minutes later. ?? If the level is still low (less than 100 mg/dL), have another 15 grams of carbohydrate. ?? When the level returns to 100 mg/dL, eat a snack or meal that contains carbohydrates. This will help prevent another drop in blood sugar. Nutrition: ??? Eat healthy, include fresh fruits and vegetables daily. ??? Eat no more than 45-60 grams of carbs per meal. ??? Do not eat fried foods more than once per week. ??? See the Dietitian, Luster Applicator . Call Centralized Scheduling at [phone] to make an appointment. Exercise: ??? Try moving at least a total of 30 minutes/day. This does not have to be done at one time. Self Care and Risk Reduction: ??? Please get a Dilated eye exam yearly and have results faxed to the office. ??? Check Feet daily, watch for blisters, cuts or sores. Wash, dry and lotion feet daily. Notify your doctor if a wound develops. ??? Always carry a source of fast-acting carbohydrate with you. documented in this encounter Progress Notes * Marialuisa Tyson NP - 12/01/2020 10:00 AM CDT Images from the original note were not included. Subjective/Objective Patient ID: Sandy Lopez is a 55 y.o. female. Chief Complaint Diabetes Type 2 Today visit is a follow up visit. She has Type 2 Diabetes. Her weight has decreased by 18lbs however, she returned to smoking and her mother while on hospice after a long erickson with lung cancer. 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 She eats 2-3 meals/day. She monitors blood sugar by wearing the DexCom 6 sensor. The Dexcom 6 was downloaded and reviewed. She denies hypoglycemia. Today's visit is to review labs and discuss future plan. ?? Diabetes regimen: Omnipod - increased to 0000-2.25, 0400-2.45 ic-6, isf-20 Ozemic 1mg weekly Allergies Allergen Reactions ??? Codeine Vomiting ??? Ibuprofen Other (See comments) Current Outpatient Medications Medication Sig Dispense Refill ??? aspirin 81 mg enteric coated tablet Take 81 mg by mouth daily ??? atorvastatin (LIPITOR) 80 mg tablet TAKE 1 TABLET BY MOUTH DAILY 90 tablet 3 ??? blood-glucose meter kit Use daily or as directed for monitoring of diabetes 1 each 0 ??? blood-glucose meter,continuous (Dexcom G6 Furniture Refinisher) misc 1 Device continuously 1 each 1 ??? blood-glucose transmitter (Dexcom G6 Transmitter) device 1 Device continuously USE DEVICE CONTINUOUSLY FOR 10 DAYS 1 Device 11 ??? cetirizine (ZyrTEC) 10 mg tablet Take 10 mg by mouth daily ??? citalopram (CeleXA) 40 mg tablet Take 40 mg by mouth daily. ??? clopidogreL (PLAVIX) 75 mg tablet Take 75 mg by mouth daily ??? Dexcom G6 Sensor device USE TO TEST BLOOD SUGAR DIRECTED 3 Device 11 ??? Dexcom G6 Transmitter device USE TO TEST BLOOD SUGAR TWICE A DAY 1 Device 3 ??? estradioL (ESTRACE) 0.5 mg tablet Take 0.5 mg by mouth daily ??? ezetimibe (ZETIA) 10 mg tablet TAKE 1 TABLET BY MOUTH DAILY 28 tablet 5 ??? famotidine (PEPCID) 20 mg tablet ??? hydroCHLOROthiazide (HYDRODIURIL) 12.5 mg tablet Take 12.5 mg by mouth daily. ??? insulin aspart (NovoLOG) 100 unit/mL vial for injection Infuse insulin per Medtronic insulin pump. Max daily dose 150 units. E11.65 50 mL 5 ??? insulin syringe-needle U-100 1 mL 31 gauge x 5/16 syringe Twice a day ??? losartan (COZAAR) 25 mg tablet Take 1 tablet (25 mg total) by mouth daily 30 tablet 11 ??? metFORMIN (GLUCOPHAGE) 1,000 mg tablet TAKE 1 TABLET BY MOUTH TWICE A DAY WITH FOOD 180 tablet 3 ??? norethindrone (AYGESTIN) 5 mg tablet Take 5 mg by mouth daily ??? Omnipod Dash 5 Pack Pod cartridge CHANGE OMNIPOD DASH POD EVERY 48 HOURS 45 each 3 ??? pediatric multivitamin-iron tablet,chewable Take by mouth ??? semaglutide (Ozempic) 1 mg/dose (2 mg/1.5 mL) pen injector injection Inject 1 mg under the skinevery 7 days 4 pen 5 ??? zolpidem (AMBIEN) 10 mg tablet Take 10 mg by mouth nightly as needed ??? Basaglar KwikPen U-100 Insulin 100 unit/mL (3 mL) insulin pen INJECT 38 UNITS SUBCUTANEOUSLY EVERY TWELVE HOURS (Patient not taking: Reported on 08/18/2020) 15 mL 3 ??? diazePAM (VALIUM) 5 mg tablet diazepam 5 mg tablet ??? nicotine (NICODERM CQ) 21 mg nicotine 21 mg/24 hr daily transdermal patch ??? nicotine polacrilex (COMMIT) 4 mg lozenge ??? propranoloL (INDERAL) 20 mg tablet propranolol 20 mg tablet ??? sulfamethoxazole-trimethoprim (BACTRIM DS) 800-160 mg per tablet sulfamethoxazole 800 mg-trimethoprim 160 mg tablet ??? SUMAtriptan (IMITREX) 50 mg tablet sumatriptan 50 mg tablet No current facility-administered medications for this visit. Past Medical History: Diagnosis Date ??? Uncontrolled type 2 diabetes mellitus with hyperglycemia, with long-term current use of insulin([facility] ([facility]) 04/03/2017 Social History Tobacco Use ??? Smoking status: Current Every Day Smoker Last attempt to quit: 03/20/2020 Years since quittin.7 ??? Smokeless tobacco: Never Used Substance Use Topics ??? Alcohol use: Not on file No family history on file. Lab Results Component Value Date HGBA1C 8.2 12/01/2020 HGBA1C 8.3 08/18/2020 HGBA1C 8.4 05/12/2020 HGBA1C 7.5 02/11/2020 HGBA1C 7.4 11/19/2019 HGBA1C 7.7 (H) 09/13/2019 Chemistry Lab Results Component Value Date SODIUM 140 06/09/2020 POTASSIUM 4.8 06/09/2020 CHLORIDE 102 06/09/2020 CO2 26 06/09/2020 ANIONGAP 11 06/09/2020 BUNSER 16 06/09/2020 CREATININE 0.94 06/09/2020 GLUCOSE 113 06/09/2020 CALCIUM 9.5 06/09/2020 BILITOT 0.2 09/24/2019 ALBUMIN 4.0 06/09/2020 GFRNAA 69 06/09/2020 ALKPHOS 69 09/24/2019 AST 40 09/24/2019 ALT 31 09/24/2019 PHOS 3.4 06/09/2020 Lab Results Component Value Date CHOL 117 09/13/2019 TRIG 239 (H) 09/13/2019 HDL 22 (L) 09/13/2019 LDLCALC 47 09/13/2019 Lab Results Component Value Date TSH 1.56 06/09/2020 Review of Systems Constitutional: Positive for appetite [...] Musculoskeletal: Negative for arthralgias and neck pain. Neurological: Negative for dizziness, weakness and numbness. Psychiatric/Behavioral: Negative for confusion. The patient is not nervous/anxious. Physical Exam Vitals and nursing note reviewed. Constitutional: General: She is not in acute distress. Appearance: Normal appearance. She is not ill-appearing. HENT: Head: Normocephalic. Right Ear: External ear normal. Left Ear: External ear normal. Nose: Nose normal. Mouth/Throat: Mouth: Mucous membranes are moist. Eyes: Conjunctiva/sclera: Conjunctivae normal. Cardiovascular: Rate and Rhythm: Normal rate and regular rhythm. Pulses: Normal pulses. Pulmonary: Effort: Pulmonary effort is normal. No respiratory distress. Breath sounds: Normal breath sounds. Abdominal: General: Bowel sounds are normal. Palpations: Abdomen is soft. Musculoskeletal: General: Normal range of motion. Feet: Right Foot: Monofilament exam: normal. Protective Sensation: 10 sites tested. 10 sites sensed. Left Foot: Monofilament exam: normal. Protective Sensation: 10 sites tested. 10 sites sensed. Lymphadenopathy: Cervical: No cervical adenopathy. Skin: General: Skin is warm and dry. Capillary Refill: Capillary refill takes less than 2 seconds. Neurological: Mental Status: She is alert and oriented to person, place, and time. Psychiatric: Mood and Affect: Mood normal. Behavior: Behavior normal. Assessment/Plan Diagnoses and all orders for this visit: Type 2 diabetes mellitus with hyperglycemia, with long-term current use of insulin ([facility]) ([facility]) (Primary) Assessment & Plan: This is a chronic condition which is??stable??hyperglycemia, not at goal. ?? Personally reviewed A1c today-??8.2% Not at ??goal less than 7% Medication- Continue Omnipod pump?? Continue Ozempic 1mg weekly . Monitor blood sugar??continuously with DexCom 6 sensor. ?? Encouraged annual eye exam. ??last dilated eye exam was [facility] [place]? Monofilament foot exam completed, protective senses intact Urine microalbumin/creatinine ratio -??865?Currently on Losartan 25 mg daily/ HCTZ, ?goal <30 . ??Seeing Dr. Bhagat Personally reviewed labs: (06/14)BUN-??16?, creatinine- 0.94?GFR- 69?Kidney function- abnormal B/P today-102/50??, currently Losartan 25 mg daily??and HCTZ. ??At goal blood pressure is <140/90 Personally reviewed LDL -47, currently on??atorvastatin 80mg daily.?? No history of macrovascular disease - CVA, [place].? Dexcom downloaded for??11/18/20 to 12/01/20 This device [...] loss. Encouraged to watch closely for hypoglycemia. Orders: - POCT glucose - POCT hemoglobin [...] 23.2 units (31%) Basal- 50.5 units (69%) Hyperlipidemia associated with type 2 diabetes mellitus (HCC) Assessment & Plan: This is a chronic condition which is at goal. Goal is less than 70. Personally reviewed lipid panel. LDL -47, currently on??atorvastatin/ ezetimibe. At goal. Encouraged to eat healthy, include fresh fruits and vegetables daily and avoid eating fried foods more than once per week. Encouraged to take medications as prescribed. Discussed potential of hypoglycemia with weight loss. Encouraged to notify office if hypoglycemia occurs. Discussed and educated on eating a healthy [...] Discussion of treatment plan and prescribed medications. Follow up 3 months Marialuisa Tyson NP Cosigned by Lorne Mcginnis MD at 12/01/2020 2:23 PM CDT documented in this encounter Miscellaneous Notes * Assessment & Plan Note - Marialuisa Tyson NP - 12/01/2020 2:15 PM CDTAssociated Problem(s): Omnipod Dash Insulin pump in place This is a chronic condition which is not at goal. ?? Download reviewed. Type of insulin pump-Omnipod insulin delivery system with DexCom 6 sensor Basal??increased to 0000-2.25??0400-2.45 IC??-6 ISF-20?? Active insulin time 4hrs. TARGET GLUCOSE?110-120 Avg BG?145 Total daily dose of insulin- 73.8 units Bolus- 23.2 units (31%) Basal- 50.5 units (69%) * Assessment & Plan Note - Marialuisa Tyson NP - 12/01/2020 2:13 PM CDTAssociated Problem(s): Hyperlipidemia associated with type [...] Plan Note - Marialuisa Tyson NP - 12/01/2020 2:09 PM CDTAssociated Problem(s): Type 2 diabetes mellitus with diabetic peripheral angiopathy without gangrene, with long-term current use of insulin ([facility]) (HCC) (Deleted) This is a chronic condition which is??stable??hyperglycemia, not at goal. ?? Personally reviewed A1c today-??8.2% Not at ??goal less than 7% Medication- Continue Omnipod pump?? Continue Ozempic 1mg weekly . Monitor blood sugar??continuously with DexCom 6 sensor. ?? Encouraged annual eye exam. ??last dilated eye exam was [facility] [place]? Monofilament foot exam completed, protective senses intact Urine microalbumin/creatinine ratio -??865?Currently on Losartan 25 mg daily/ HCTZ, ?goal <30 . ??Seeing Dr. Bhagat Personally reviewed labs: (06/14)BUN-??16?, creatinine- 0.94?GFR- 69?Kidney function- abnormal B/P today-102/50??, currently Losartan 25 mg daily??and HCTZ. ??At goal blood pressure is <140/90 Personally reviewed LDL -47, currently on??atorvastatin 80mg daily.?? No history of macrovascular disease - CVA, [place].? Dexcom downloaded for??11/18/20 to 12/01/20 This device [...] loss. Encouraged to watch closely for hypoglycemia. * Assessment & Plan Note - Marialuisa Tyson NP - 12/01/2020 10:00 AM CDT Associated Problem(s): Type 2 diabetes mellitus with hypoglycemia without coma, with long-term current use of insulin (HCC) >>ASSESSMENT AND PLAN FOR TYPE 2 DIABETES MELLITUS WITH DIABETIC PERIPHERAL ANGIOPATHY WITHOUT GANGRENE, WITH LONG-TERM CURRENT USE OF INSULIN (CMS/HCC) (HCC) WRITTEN ON 12/01/2020 2:13 PM BY MARIALUISA TYSON NP This is a chronic condition which is??stable??hyperglycemia, not at goal. ?? Personally reviewed A1c today-??8.2% Not at ??goal less than 7% Medication- Continue Omnipod pump?? Continue Ozempic 1mg weekly . Monitor blood sugar??continuously with DexCom 6 sensor. ?? Encouraged annual eye exam. ??last dilated eye exam was [facility] [place]? Monofilament foot exam completed, protective senses intact Urine microalbumin/creatinine ratio -??865?Currently on Losartan 25 mg daily/ HCTZ, ?goal <30 . ??Seeing Dr. Bhagat Personally reviewed labs: (06/14)BUN-??16?, creatinine- 0.94?GFR- 69?Kidney function- abnormal B/P today-102/50??, currently Losartan 25 mg daily??and HCTZ. ??At goal blood pressure is <140/90 Personally reviewed LDL -47, currently on??atorvastatin 80mg daily.?? No history of macrovascular disease - CVA, [place].? Dexcom downloaded for??11/18/20 to 12/01/20 This device [...] loss. Encouraged to watch closely for hypoglycemia. documented in this encounter Plan of Treatment Not on file documented as of this encounter Procedures Procedure Name Priority Date/Time Associated Diagnosis Comments POCT HEMOGLOBIN A1C Routine 12/01/2020 1 :50 PM CDT Type 2 diabetes mellitus with hyperglycemia, with long-term current use of insulin ([facility]) ([facility]) POCT GLUCOSE Routine 12/01/2020 1:50 PM CDT Type 2 diabetes mellitus with hyperglycemia, with long-term current use of insulin ([facility]) ([facility]) documented in this encounter Results * (ABNORMAL) POCT hemoglobin A1c (12/01/2020 1:50 PM CDT) Hemoglobin A1C, POC 8.2 Blood specimen (specimen) 12/01/2020 1:50 PM CDT Marialuisa Tyson NP POINT OF CARE TEST ORDERABLES F inal Result * POCT glucose (12/01/2020 1:50 PM CDT) Glucose Blood, POC 181 mg/dL Blood specimen (specimen) 12/01/2020 1:50 PM CDT us Marialuisa Tyson NP POINT OF CARE TEST ORDERABLES F inal Result documented in this encounter Visit Diagnoses Diagnosis Type 2 diabetes mellitus with hyperglycemia, with long-term current use of insulin (HCC)- Primary Insulin pump titration Fitting and adjustment of insulin pump Hyperlipidemia associated with type 2 diabetes mellitus (HCC) documented in this encounter Discontinued Medications Medication Sig Discontinue Reason Start Date End Da te blood sugar diagnostic (ONETOUCH ULTRA BLUE TEST STRIP MISC) OneTouch Ultra Blue Test Strip Duplicate order 12/01/2020 insulin pump cartridge (Omnipod Dash 5 Pack Pod) cartridge Omnipod Dash 5 Pack Insulin Pod subcutaneous cartridge CHANGE OMNIPOD POD EVERY 48 HOURS Duplicate order 12/01/2020 blood glucose diagnostic (Contour Next Test Strips) strip CHECK BLOOD SUGAR FOUR TIMES A DAY OR DIRECTED Therapy completed 12/30/2019 12/01/2020 lancets (ACCU-CHEK MULTICLIX LANCET) miscIndications:Uncon trolled type 2 diabetes mellitus with hyperglycemia, with long-term current use of insulin (HCC) Check blood sugar four times a day or as directed Therapy completed 07/04/2017 12/01/2020 documented as of this encounter Historical Medications * This list may reflect changes made after this encounter. SUMAtriptan (IMITREX) 50 mg tablet Take 1 tablet (50 mg total) by mouth once as needed propranoloL (INDERAL) 20 mg tablet Take 1 tablet (20 mg total) by mouth 2 (two) times a day sulfamethoxazol e-trimethoprim (BACTRIM DS) 800-160 mg per tablet sulfamethoxazole 800 mg-trimethoprim 160 mg tablet 06/02/19 22 nicotine polacrilex (COMMIT) 4 mg lozenge 1 06/02/19 22 nicotine (NICODERM CQ) 21 mg nicotine 21 mg/24 hr daily transdermal patch 06/02/19 22 diazePAM (VALIUM) 5 mg tablet diazepam 5 mg tablet 10/13 22 insulin pump cartridge (Omnipod Dash 5 Pack Pod) cartridge Omnipod Dash 5 Pack Insulin Pod subcutaneous cartridge CHANGE OMNIPOD POD EVERY 48 HOURS 12/02/19 21 blood sugar diagnostic (ONETOUCH ULTRA BLUE TEST STRIP MISC) OneTouch Ultra Blue Test Strip 12/02/19 21 pediatric multivitamin-ir on tablet,chewable Take by mouth 9 08/08/19 23 added in this encounter Care Teams Magneto Electrician Relationship Specialty Start Date End Date Marialuisa Tyson, CHRISTOPHER PCP - General 07/07/20 06/27/21 documented as of this encounter
--- OUTSIDE RECORDS SUMMARY | 2024-03-03 15:37 | XMS_ITS | Encounter Summary ---
Author Organization [facility] Address [address] [place] [address] Care Team Providers Care Internet Media Planner Name Role Phone Marialuisa Daniel NP Primary Care Provider [phone] Encounter Details Date Type Department Care Team (Late st Contact Info) Description 06/05/2021 Documentation [facility] of [address] [place] [address] Marialuisa Daniel, DENSITOMETRIST [address] [facility] [address] [place] [address] Social History Tobacco Use Types Packs/Day Years Used Date Smoking Tobacco: Every Day Cigarettes Last attempted to quit: 03/20/2020 Smokeless Tobacco: Never Comments Unknown Sex and Gender Information Value Date Recorded Sex Assigned at Not on file 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 Kg 06/06/21--Approved until 06/06/22. Kg documented in this encounter Plan of Treatment Not on file documented as of this encounter Visit Diagnoses Not on filedocumented in this encounter Care Teams Internet Media Planner Relationship Specialty Start Date End Date Marialuisa Daniel NP PCP - General 07/07/20 06/27/21 documented as of this encounter
--- OUTSIDE RECORDS SUMMARY | 2024-03-03 15:37 | XMS_ITS | Encounter Summary ---
Author Organization [facility] Healthcare Address [address] [place] [address] Care Team Providers Care Owner Operator Tanker Truck Driver Name Role Phone Eron Holliday NP Primary Care Provider +1- [phone] Encounter Details Date Type Department Care Team (Late st Contact Info) Description 09/19/2021 1:30 PM CDT Lab [address] [address] Leobardo Bhagat MD [address] [place], [place] [id number] Discharge Disposition: Discharge to home or self care Social History Tobacco Use Types Packs/Day Years Used Date Smoking Tobacco: Former Cigarettes Q uit: 03/20/2020 Smokeless Tobacco: Never Comments No Sex and Gender Information Value Date Recorded Sex Assigned at Not on file 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 Gender Identity Female 12/26/2023 10:11 PM CDT Sexual Orientation Straight 12/26/2023 10 :11 PM CDT documented as of this encounter Discharge Disposition Disposition Code Departure Means Destination Discharge to home or self care documented in this encounter Plan of Treatment Not on file documented as of this encounter Procedures Procedure Name Priority Date/Time Associated Diagnosis Comments PROTEIN / CREATININE RATIO, URINE, RANDOM Routine 09/19/2021 1:40 PM CDT EGFR Routine 09/19/2021 1:30 PM CDT DIFFERENTIAL AUTO Routine 09/19/2021 1:3 0 PM CDT CBC WITH AUTO DIFFERENTIAL Routine 09/19/2021 1:30 PM CDT RENAL FUNCTION PANEL Routine 09/19/2021 1:30 PM CDT documented in this encounter Results * (ABNORMAL) Protein / creatinine ratio, urine, random (09/19/2021 1:40 PM CDT) Protein, ur, quant >600.0 mg/dL [facility] ([place]) Comment: Reviewed. Interpretive Data No reference range established. Current interpretive data was last revised 2018. Creatinine Ur 172.2 mg/dL [facility] ([place]) Comment: Interpretive Data No reference range established. Current interpretive data was last revised 2018. Protein/creatinin e ratio >3,484.3( H) 0.0 - 180.0 mg/g CR [facility] ([place]) Urine 09/19/2021 1:40 PM CDT 09/19/2021 2:31 PM CDT us Leobardo Bhagat MD LAB URINE ORDERABLES Final Re sult [facility] ([place]) 1 [facility] Department [place] [address] * eGFR (09/19/2021 1:30 PM CDT) Pathologist [facility] eGFR 67 mL/min/1. 73 m2 [facility] ([place]) Comment: Interpretive Data Reference Interval Normal ?>/= [...] interpretive data was last reviewed 2020. Blood 09/19/2021 1:30 PM CDT 09/19/2021 2:27 PM CDT us Leobardo Bhagat MD LAB BLOOD ORDERABLES Final Re sult [facility] ([place]) 1 [facility] Department [place] [address] * Differential, auto (09/19/2021 1:30 PM CDT) Neutrophil abs 5.6 1.7 - 6.5 K/cumm [facility] ([place]) Imm gran abs 0.0 0.0 - 0.1 K/cumm [facility] ([place]) Lymphocyte abs 3.0 0.8 - 3.3 K/cumm [facility] ([place]) Monocyte abs 0.5 0.2 - 0.8 K/cumm [facility] ([place]) Eosinophil abs 0.2 0.0 - 0.5 K/cumm [facility] ([place]) Basophil abs 0.1 0.0 - 0.1 K/cumm [facility] ([place]) Neutrophil pct 59.5 % [facility] ([place]) Comment: Interpretive Data Percent cell count reference ranges are not reported, since discordance with absolute values may lead to misinterpretation of CBC data. Current Interpretive Data was last revised on 2017. Imm gran pct 0.3 % [facility] ([place]) Comment: Interpretive Data Percent cell count reference ranges are not reported, since discordance with absolute values may lead to misinterpretation of CBC data. Current Interpretive Data was last revised on 2017. Lymphocyte pct 32.4 % [facility] ([place]) Comment: Interpretive Data Percent cell count reference ranges are not reported, since discordance with absolute values may lead to misinterpretation of CBC data. Current Interpretive Data was last revised on 2017. Monocyte pct 5.4 % [facility] ([place]) Comment: Interpretive Data Percent cell count reference ranges are not reported, since discordance with absolute values may lead to misinterpretation of CBC data. Current Interpretive Data was last revised on 2017. Eosinophil pct 1.9 % [facility] ([place]) Comment: Interpretive Data Percent cell count reference ranges are not reported, since discordance with absolute values may lead to misinterpretation of CBC data. Current Interpretive Data was last revised on 2017. Basophil pct 0.5 % [facility] ([place]) Comment: Interpretive Data Percent cell count reference ranges are not reported, since discordance with absolute values may lead to misinterpretation of CBC data. Current Interpretive Data was last revised on 2017. Blood 09/19/2021 1:30 PM CDT 09/19/2021 2:27 PM CDT us Leobardo Bhagat MD LAB BLOOD ORDERABLES Final Re sult [facility] ([place]) 1 [facility] Department [place] [address] * Renal function panel (09/19/2021 1:30 PM CDT) Sodium 141 135 - 145 mmol/L [facility] ([place]) Potassium, pl 4.4 3.3 - 4.9 mmol/L [facility] ([place]) Chloride 103 97 - 110 mmol/L [facility] ([place]) CO2 29 22 - 32 mmol/L [facility] ([place]) Anion gap 9 2 - 15 mmol/L [facility] ([place]) BUN 11 8 - 25 mg/dL [facility] ([place]) Creatinine 1.00 0.60 - 1.10 mg/dL [facility] ([place]) Glucose 130 70 - 199 mg/dL [facility] ([place]) [...] classification and Diagnosis of Diabetes Diabetes Care 2017;40 (Suppl. 1):S11. Current interpretive data was last revised 2017. Calcium 9.7 8.5 - 10.3 mg/dL [facility] ([place]) Phosphorus, pl 3.3 2.3 - 4.5 mg/dL [facility] ([place]) Albumin 4.2 3.5 - 5.0 g/dL [facility] ([place]) Blood 09/19/2021 1:30 PM CDT 09/19/2021 2:27 PM CDT us Leobardo Bhagat MD LAB BLOOD ORDERABLES Final Re sult [facility] ([place]) 1 [facility] Department [place] [address] * CBC with auto differential (09/19/2021 1:30 PM CDT) WBC 9.4 3.8 - 9.9 K/cumm [facility] ([place]) Hgb 13.3 11.9 - 15.5 g/dL [facility] ([place]) Hct 40.4 35.6 - 45.5 % [facility] ([place]) Plt 331 150 - 400 K/cumm [facility] ([place]) MPV 10.0 9.1 - 12.3 fL [facility] ([place]) RBC 4.50 3.90 - 5.20 M/cumm [facility] ([place]) MCV 89.8 81.3 - 96.4 fL [facility] ([place]) MCH 29.6 27.1 - 33.3 pg [facility] ([place]) MCHC 32.9 32.3 - 35.7 g/dL [facility] ([place]) RDW CV 13.1 11.1 - 14.9 % [facility] ([place]) RDW SD 42.5 35.7 - 48.1 fL [facility] ([place]) NRBC abs 0.00 0.00 - 0.01 K/cumm [facility] ([place]) Blood 09/19/2021 1:30 PM CDT 09/19/2021 2:27 PM CDT us Leobardo Bhagat MD LAB BLOOD ORDERABLES Final Re sult [facility] ([place]) 1 [facility] Department [place] [address] documented in this encounter Visit Diagnoses Not on filedocumented in this encounter Care Teams Owner Operator Tanker Truck Driver Relationship Specialty Start Date End Date Eron Holliday NP [address] [place] [address] [place] [address] PCP - General 06/28/21 05/08/22 documented as of this encounter
--- OUTSIDE RECORDS SUMMARY | 2024-03-03 15:37 | XMS_ITS | Encounter Summary ---
Author Organization [facility] Address [address] [facility] [address] [place] [address] Care Team Providers Care Adobe Architect Name Role Phone Eron Holliday NP Primary Care Provider [phone]- [phone] Encounter Details Date Type Department Care Team (Late st Contact Info) Description 07/25/2021 Telephone [facility] of [address] [place] [address] Marialuisa Daniel, CHRISTOPHER [address] [facility] [address] [place] [address] Social History Tobacco Use Types Packs/Day Years Used Date Smoking Tobacco: Every Day Cigarettes Last attempted to quit: 03/20/2020 Smokeless Tobacco: Never Comments No Sex and Gender Information Value Date Recorded Sex Assigned at Not on file 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 Bhagat, she states she has not seen him recently but thought she has an appointment scheduled * Telephone Encounter - Corinna Wright MA - 07/25/2021 8:38 AM CDT ----- Message from Marialuisa Daniel NP sent at 07/24/2021 4:56 PM CDT ----- Can we please call Sandy and make sure she is still seeing Dr. Bhagat. Tell her the albumin creatinine ratio is 3,075 increased from 865 1 yr ago. Let me know if she has any questions. Thanks marialuisa documented in this encounter Plan of Treatment Not on file documented as of this encounter Visit Diagnoses Not on filedocumented in this encounter Care Teams Adobe Architect Relationship Specialty Start Date End Date Eron Holliday NP [address] [facility] [place] [address] PCP - General 06/28/21 05/08/22 documented as of this encounter
--- OUTSIDE RECORDS SUMMARY | 2024-03-03 15:37 | XMS_ITS | Encounter Summary ---
Author Organization [facility] Healthcare Address [address] [place] [address] Care Team Providers Care Naturalist Name Role Phone Marialuisa Daniel NP Primary Care Provider [phone] Reason for Referral * MRI/CAT/PET Scan (Routine) - Closed Specialty Diagnoses / Procedures Referred By Contac t Referred To Contact Radiology Diagnoses Chronic bilateral low back pain with bilateral sciatica Radiculopathy, lumbosacral region Lumbar facet joint syndrome Procedures [place] [address] [facility] [address] [place] [address] Phone: tel: fax: [address] [address] Referral ID Status Reason Start Date Expiration Date Visits Re quested Visits Authorized [id number] Closed 06/27/2021 08/25/2021 1 1 Encounter Details Date Type Department Care Team (Late st Contact Info) Description 06/27/2021 Orders Only [facility] [address] [place] [id number] [place] [address] [facility] [address] [place] [address] Chronic bilateral low back pain with bilateral sciatica (Primary Dx); Radiculopathy, lumbosacral region; Lumbar facet joint syndrome Social History Tobacco Use Types Packs/Day Years Used Date Smoking Tobacco: Every Day Cigarettes Last attempted to quit: 03/20/2020 Smokeless Tobacco: Never Comments No Sex and Gender Information Value Date Recorded Sex Assigned at Not on file 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 DISC HERNIATION CENTRALLY MODERATE SIZE L5-S1. FACET JOINT ARTHROPATHY L4-5 L5-S1 WITH SPONDYLOLISTHESIS L4-5 WITH SPINAL STENOSIS Electronically signed by: Keegan Bond M.D. Narrative 07/09/2021 8:38 AM CDT EXAMINATION: MRI LUMBAR SPINE WO CONTRAST dated 07/06/2021 5:00 PM HISTORY: 56-year-old woman with low back pain radiating to the right hip. Remote injury. History of diabetes TECHNIQUE: Multiplanar multisequence spin-echo images obtained FINDINGS: No priors. Sagittal imaging demonstrates a mild grade 1 out of 3 spondylolisthesis of L4 on L5. Remaining alignment is anatomic. Lumbar vertebral body heights are normal. There is narrowing and degeneration of the L4-5 and L5-S1 disc spaces with the remaining disc spaces having normal hydration and appearance. The bone marrow signal intensity is normal. Ventral defects are seen at L4-5 and L5-S1. The conus medullaris terminates at the normal level. Transaxial images: T12-L1 normal L1-L2 normal L2-3 normal disc with mild facet joint disease without stenosis. L3-4 demonstrates minor disc bulging without stenosis. Mild to moderate facet joint disease. L4-5 demonstrates severe facet joint arthropathy with subluxation with diffuse disc bulging with spinal stenosis central and lateral recess without foraminal encroachment. L5-S1 disc demonstrates a central disc herniation contacting the dural sac with compression. Severe facet joint arthropathy. Procedure Note Keegan Bond MD - 07/09/2021 EXAMINATION: MRI LUMBAR SPINE WO CONTRAST dated 07/06/2021 5:00 PM HISTORY: 56-year-old woman with low back pain radiating to the right hip. Remote injury. History of diabetes TECHNIQUE: Multiplanar multisequence spin-echo images obtained FINDINGS: No priors. Sagittal imaging demonstrates a mild grade 1 out of 3 spondylolisthesis of L4 on L5. Remaining alignment is anatomic. Lumbar vertebral body heights are normal. There is narrowing and degeneration of the L4-5 and L5-S1 disc spaces with the remaining disc spaces having normal hydration and appearance. The bone marrow signal intensity is normal. Ventral defects are seen at L4-5 and L5-S1. The conus medullaris terminates at the normal level. Transaxial images: T12-L1 normal L1-L2 normal L2-3 normal disc with mild facet joint disease without stenosis. L3-4 demonstrates minor disc bulging without stenosis. Mild to moderate facet joint disease. L4-5 demonstrates severe facet joint arthropathy with subluxation with diffuse disc bulging with spinal stenosis central and lateral recess without foraminal encroachment. L5-S1 disc demonstrates a central disc herniation contacting the dural sac with compression. Severe facet joint arthropathy. IMPRESSION: ABNORMAL STUDY. DISC HERNIATION CENTRALLY MODERATE SIZE L5-S1. FACET JOINT ARTHROPATHY L4-5 L5-S1 WITH SPONDYLOLISTHESIS L4-5 WITH SPINAL STENOSIS Electronically signed by: Keegan Bond M.D. Adams Tee MD IMG MRI PROCEDURES Fi nal Result documented in this encounter Visit Diagnoses Diagnosis Chronic bilateral low back pain with bilateral sciatica- Primary Radiculopathy, lumbosacral region Thoracic or lumbosacral neuritis or radiculitis, unspecified Lumbar facet joint syndrome Chronic bilateral low back pain with bilateral sciatica Radiculopathy, lumbosacral region Thoracic or lumbosacral neuritis or radiculitis, unspecified Lumbar facet joint syndrome documented in this encounter Care Teams Naturalist Relationship Specialty Start Date End Date Marialuisa Daniel NP PCP - General 07/07/20 06/27/21 documented as of this encounter
--- OUTSIDE RECORDS SUMMARY | 2024-03-03 15:37 | XMS_ITS | Encounter Summary ---
Author Organization [facility] Address [address] [facility] [address] [place] [address] Care Team Providers Care Career Development Specialist Name Role Phone Eron Holliday NP Primary Care Provider [phone] Encounter Details Date Type Department Care Team (Late st Contact Info) Description 01/24/2022 Orders Only [facility] Diabetes Endocrine Care of [address] [place] [address] Provider, MD Alex [address] [place] [address] Social History Tobacco Use Types Packs/Day Years Used Date Smoking Tobacco: Former Cigarettes Q uit: 03/20/2020 Smokeless Tobacco: Never Comments No Sex and Gender Information Value Date Recorded Sex Assigned at Not on file 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 Gender Identity Female 12/26/2023 10:11 PM CDT Sexual Orientation Straight 12/26/2023 10 :11 PM CDT documented as of this encounter Plan of Treatment Not on file documented as of this encounter Procedures Procedure Name Priority Date/Time Associated Diagnosis Comments SCANNED LABS Routine 01/19/2022 documented in this encounter Results * Scanned Labs (01/19/2022) Historical Provider LAB BLOOD ORDERABLES Patti l Result documented in this encounter Visit Diagnoses Not on filedocumented in this encounter Care Teams Career Development Specialist Relationship Specialty Start Date End Date Eron Holliday NP [address] [place] [address] PCP - General 06/28/21 05/08/22 documented as of this encounter
--- OUTSIDE RECORDS SUMMARY | 2024-03-03 15:37 | XMS_ITS | Encounter Summary ---
Author Organization [facility] Healthcare Address [address] [place] [address] Care Team Providers Care Video And Sound Recorder Name Role Phone Eron Holliday NP Primary Care Provider [phone] Encounter Details Date Type Department Care Team (Late st Contact Info) Description 07/13/2021 8:15 AM CDT [facility] [address] [place], [place] Lorne Mcginnis MD [address] [place] [address] [address] [place] [address] Marialuisa Daniel NP [address] [facility] [address] [place] [address] Type 2 diabetes mellitus with hyperglycemia, with long-term current use of insulin ([facility]/HCC) ([facility]) Discharge Disposition: Discharge to home or self care Social History Tobacco Use Types Packs/Day Years Used Date Smoking Tobacco: Every Day Cigarettes Last attempted to quit: 03/20/2020 Smokeless Tobacco: Never Comments No Sex and Gender Information Value Date Recorded Sex Assigned at Not on file 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 Gender Identity Female 12/26/2023 10:11 PM CDT Sexual Orientation Straight 12/26/2023 10 :11 PM CDT documented as of this encounter Discharge Disposition Disposition Code Departure Means Destination Discharge to home or self care documented in this encounter Plan of Treatment Not on file documented as of this encounter Procedures Procedure Name Priority Date/Time Associated Diagnosis Comments EGFR Routine 07/13/2021 8:13 AM CDT Type 2 diabetes mellitus with hyperglycemia, with long-term current use of insulin ([facility]/HCC) ([facility]) THYROID FUNCTION CASCADE Routine 07/13/2021 8:13 AM CDT Type 2 diabetes mellitus with hyperglycemia, with long-term current use of insulin (CMS/HCC) ([facility]) ALBUMIN CREATININE RATIO, URINE Routine 07/13/2021 8:13 AM CDT Type 2 diabetes mellitus with hyperglycemia, with long-term current use of insulin (CMS/HCC) ([facility]) LIPID PANEL Routine 07/13/2021 8:13 AM CDT Type 2 diabetes mellitus with hyperglycemia, with long-term current use of insulin (CMS/[facility]) ([facility]) COMPREHENSIVE METABOLIC PANEL Routine 07/13/2021 8:13 AM CDT Type 2 diabetes mellitus with hyperglycemia, with long-term current use of insulin ([facility]) ([facility]) documented in this encounter Results * eGFR (07/13/2021 8:13 AM CDT) eGFR 73 mL/min/1. 73 m2 [facility] ([place]) Comment: [...] interpretive data was last reviewed 2020. Blood 07/13/2021 8:13 AM CDT 07/13/2021 10:14 AM CDT us Marialuisa Daniel NP LAB BLOOD ORDERABLES Final Resu lt Performing Organization Address City/[facility] Co de Phone Number [facility] ([place]) [address] [facility] [place] [address] * (ABNORMAL) Albumin Creatinine Ratio, Urine (07/13/2021 8:13 AM CDT) Albumin Ur 5,983.8 mg/L [facility] ([place]) Comment: Interpretive Data No reference range established. Current interpretive data was last revised 2018. Testing performed by: [address] [address] Creatinine Ur 194.6 mg/dL [facility] ([place]) Comment: Interpretive Data No reference range established. Current interpretive data was last revised 2018. Testing performed by: [facility], [address] [place] [address]., [id number] Albumin Creatinine Ratio, Ur 3,075(H) 1 - 29 mg/g [facility] ([place]) Comment:Testing performed by : [address] [address] Urine 07/13/2021 8:13 AM CDT 07/13/2021 2:51 PM CDT us Marialuisa Daniel NP LAB URINE ORDERABLES Final Resu lt Performing Organization Address City/[facility]/ZIP Co de Phone Number [facility] ([place]) [address] Department [place] [address] * Comprehensive metabolic panel (07/13/2021 8:13 AM CDT) Sodium 139 135 - 145 mmol/L [facility] ([place]) Potassium, pl 4.9 3.3 - 4.9 mmol/L [facility] ([place]) Chloride 104 97 - 110 mmol/L [facility] ([place]) CO2 25 22 - 32 mmol/L [facility] ([place]) Anion gap 10 2 - 15 mmol/L [facility] ([place]) BUN 11 8 - 25 mg/dL [facility] ([place]) Creatinine 0.93 0.60 - 1.10 mg/dL [facility] ([place]) Glucose 163 70 - 199 mg/dL [facility] ([place]) [...] interpretive data was last revised 2017. Calcium 9.4 8.5 - 10.3 mg/dL [facility] ([place]) Bilirubin, total 0.2 0.1 - 1.2 mg/dL [facility] ([place]) Protein, pl 7.0 6.5 - 8.5 g/dL [facility] ([place]) Albumin 3.9 3.5 - 5.0 g/dL [facility] ([place]) Alk phos 72 40 - 130 Units/L [facility] ([place]) ALT 29 7 - 45 Units/L [facility] ([place]) AST 35 10 - 45 Units/L [facility] ([place]) Blood 07/13/2021 8:13 AM CDT 07/13/2021 10:14 AM CDT us Marialuisa Daniel NP LAB BLOOD ORDERABLES Final Resu lt [facility] ([place]) [address] [facility] Department [place] [address] * (ABNORMAL) Lipid panel (07/13/2021 8:13 AM CDT) Cholesterol 148 30 - 199 mg/dL [facility] ([place]) [...] Data was last revised on 2017. Triglycerides 342(H) <=149 mg/dL [facility] ([place]) Comment: Interpretive [...] Data was last revised on 2017. HDL 28(L) >=40 mg/dL [facility]) Comment: Interpretive Data Ages < or = [...] was last revised on 2017. LDL, calculated 52 <=129 mg/dL [facility] ([place]) Comment: Interpretive [...] was last revised on 2017. Non-HDL Cholesterol 120 mg/dL [facility] ([place]) Comment: Interpretive Data [...] was last revised on 2017. Chol/HDL ratio 5 [facility] ([place]) Blood 07/13/2021 8:13 AM CDT 07/13/2021 10:14 AM CDT Narrative [facility] ([place]) - 07/13/2021 10:45 AM CDT These lab test should be done fasting. This means do not eat or drink for at least 12 hours prior to getting your blood drawn. Marialuisa Daniel NP LAB BLOOD ORDERABLES Final Resu lt Performing Organization Address City/[facility]/ZIP Co de Phone Number [facility] ([place]) [address] [facility] [place] [address] * TSH reflex to free T4 (07/13/2021 8:13 AM CDT) TSH 0.96 0.30 - 4.20 mcIUnit/mL [facility] ([place]) Blood 07/13/2021 8:13 AM CDT 07/13/2021 10:14 AM CDT Marialuisa Daniel NP LAB BLOOD ORDERABLES Final Resu lt [facility] ([place]) [address] [facility] [place] [address] documented in this encounter Visit Diagnoses Diagnosis Type 2 diabetes mellitus with hyperglycemia, with long-term current use of insulin (HCC) documented in this encounter Care Teams Video And Sound Recorder Relationship Specialty Start Date End Date Eron Holliday NP [address] [facility] [place] [address] PCP - General 06/28/21 05/08/22 documented as of this encounter
--- OUTSIDE RECORDS SUMMARY | 2024-03-03 15:37 | XMS_ITS | Encounter Summary ---
Author Organization [facility] Healthcare Address [address] [place] [address] Care Team Providers Care Radiation Therapy Technician Name Role Phone Eron Holliday NP Primary Care Provider [phone] Reason for Visit * Reason Comments Back Pain Neck Pain Follow-up Encounter Details Date Type Department Care Team (Late st Contact Info) Description 07/20/2021 7:52 AM CDT - 07/20/2021 11:59 PM CDT Hospital Encounter [facility] [id number] [place] [id number] [place] [id number] [place] [address] [id number] [place] [id number] [place] [id number] Chronic bilateral low back pain with bilateral sciatica (Primary Dx); Type 2 diabetes mellitus with hyperglycemia, with long-term current use of insulin (CMS/HCC) ([facility]); Radiculopathy, lumbosacral region; Morbid (severe) obesity due to excess calories ([facility]); Lumbar facet joint syndrome; Cigarette smoker; Cervical radiculopathy; Anxiety and depression; Herniation of intervertebral disc between L5 and S1; Type 2 diabetes mellitus with microalbuminuria, with long-term current use of insulin (CMS/HCC) (HCC); Gastroesophageal reflux disease, unspecified whether esophagitis present Discharge Disposition: Discharge to home or self care Social History Tobacco Use Types Packs/Day Years Used Date Smoking Tobacco: Every Day Cigarettes Last attempted to quit: 03/20/2020 Smokeless Tobacco: Never Comments No Sex and Gender Information Value Date Recorded Sex Assigned at Not on file 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 The patient has co-morbidities making them susceptible to COVID-19. documented in this encounter Medications at Time of Discharge aspirin 81 mg enteric coated tablet Take 1 tablet (81 mg total) by mouth daily 12/04/2018 clopidogreL (PLAVIX) 75 mg tablet Take 1 tablet (75 mg total) by mouth daily ezetimibe (ZETIA) 10 mg tablet TAKE 1 TABLET BY MOUTH DAILY 28 tablet 05/24/2021 famotidine (PEPCID) 20 mg tablet Take 1 tablet (20 mg total) by mouth 2 (two) times a day 04/25/2020 insulin syringe-needle U-100 1 mL 31 gauge x 5/16 syringe Twice a day 07/13/2018 propranoloL (INDERAL) 20 mg tablet Take 1 [...] TABLET BY MOUTH DAILY 90 tablet 3 09/20/2020 2 blood-glucose meter kitIndications:Un controlled type 2 diabetes mellitus with hyperglycemia, with long-term current use of insulin (HCC) Use daily or as directed for monitoring of diabetes 1 each 07/04/2017 4 blood-glucose meter,continuous (Dexcom G6 Saw Setter) miscIndications:t ype 2 diabetes mellitus 1 Device continuously 1 each 1 01/24/2020 2 cetirizine (ZyrTEC) 10 mg tablet Take 1 tablet (10 mg total) by mouth daily 12/05/2018 4 citalopram (CeleXA) 40 mg tablet Take 20 mg by mouth daily 2 Dexcom G6 Sensor deviceIndications :Type 2 diabetes mellitus with hyperglycemia, with long-term current use of insulin (HCC) USE TO TEST BLOOD SUGAR DIRECTED 3 each 5 07/19/2021 2 Dexcom G6 Transmitter deviceIndications :Type 2 diabetes mellitus with hyperglycemia, with long-term current use of insulin ([facility]) USE TO TEST BLOOD SUGAR TWICE A DAY 1 each 3 04/26/2021 3 estradioL (ESTRACE) 0.5 mg tablet Take 1 tablet (0.5 mg total) by mouth daily 10/11/2018 4 fexofenadine (ADELA) 180 mg tablet Take 180 mg by mouth daily 2 insulin aspart (NovoLOG) 100 unit/mL vial for injectionIndicati ons:Type 2 diabetes mellitus with microalbuminuria, with long-term current use of insulin (HCC) USE PER INSULIN PUMP MAX OF 150 UNITS DAILY DIRECTED 50 mL 5 02/02/2021 2 insulin pump cart,cont inf,BT (Omnipod Dash Insulin Pod) cartridge Change omnipod dash every 48 hrs. [id number] each 3 06/01/2021 3 losartan (COZAAR) 25 mg tablet TAKE 1 TABLET BY MOUTH DAILY 90 tablet 3 01/05/2021 2 meclizine (ANTIVERT) 25 mg tablet Take 1 tablet by mouth 03/06/2021 2 metFORMIN (GLUCOPHAGE) 1,000 mg tablet TAKE 1 TABLET BY MOUTH TWICE A DAY WITH FOOD 180 tablet 3 09/20/2020 2 norethindrone (AYGESTIN) 5 mg tablet Take 5 mg by mouth daily 04/12/2018 2 pediatric multivitamin-iron tablet,chewable Take by mouth 07/23/2018 3 pediatric multivitamin-iron tablet,chewable Take by mouth 07/23/2018 4 semaglutide (Ozempic) 0.25 mg or 0.5 mg(2 mg/1.5 mL) pen injector injection Ozempic 0.25 mg or 0.5 mg(2 mg/1.5 mL) pen injector 09/07/2019 4 semaglutide (Ozempic) 1 mg/dose (2 mg/1.5 mL) pen injector injectionIndicati ons:type 2 diabetes mellitus Inject 1 mg under the skin every 7 days 4 pen 5 08/18/2020 2 documented as of this encounter Discharge Disposition Disposition Code Departure Means Destination Discharge to home or self care documented in this encounter Progress Notes * Noy Hickey NP - 07/20/2021 8:00 AM CDT Patient Name: Sandy Lopez : 1965 Today's Date: 07/20/2021 PCP: Eron Holliday NP Referring: No ref. provider found Chief Complaint Patient presents with ??? Back Pain ??? Neck Pain ??? Follow-up HPI: Sandy Lopez is a 56 y.o. female seen in consultation today for follow up. She presents with ongoing unchanged low back pain that radiates into right buttock/hip. She also reports pain in other areasincluding her neck, right shoulder, and hands and right knee. She states she has not, but will get the ordered neck xray. Her pain began some time ago, but has worsened recently. The pain is described as constant aching, stabbing, sharp at times. It rates 6-7/10 on the numeric pain scale. Provocative factors include staying in any one position too long, standing, walking, squatting. Alleviating factors include changing positions helps at times. Patient denies any motor weakness or bowel/bladderissues. She is being seen today via telehealth for follow up and L/S MRI review. Previous treatments: N/A ?? Prior medications utilized: Tylenol, Steroids, Gabapentin, Flexeril, Tramadol, Tizanidine, [place], Morphine Allergies Allergen Reactions ??? Codeine Vomiting ??? Ibuprofen Other (See comments) Past Medical History: Diagnosis Date ??? Uncontrolled type 2 diabetes mellitus with hyperglycemia, with long-term current use of insulin([facility]) 04/03/2017 Patient Active Problem List Diagnosis ??? Anxiety and depression ??? Gastroesophageal reflux ??? Class 3 severe obesity due to excess calories with serious comorbidity and body mass index (BMI) of 40.0 to 44.9 in adult ([facility]) ??? Cigarette smoker ??? Type 2 diabetes mellitus with hyperglycemia, with long-term current use of insulin ([facility]) ([facility]) ??? Insulin pump titration ??? Type 2 diabetes mellitus with microalbuminuria, with long-term current use of insulin ([facility]) ??? Hyperlipidemia associated with type 2 diabetes mellitus ([facility]) ??? Morbid (severe) obesity due to excess calories ([facility]) ??? Radiculopathy, lumbosacral region ??? Cervical radiculopathy ??? Cervicalgia ??? Chronic bilateral low back pain with bilateral sciatica ??? Lumbar facet joint syndrome No past surgical history on file. Social History Socioeconomic History ??? Marital status: Single Tobacco Use ??? Smoking status: Current Every Day Smoker Last attempt to quit: 03/20/2020 Years since quittin.3 ??? Smokeless tobacco: Never Used No family history on file. HOME MEDICATIONS : aspirin 81 mg enteric coated tablet atorvastatin (LIPITOR) 80 mg tablet blood-glucose meter kit blood-glucose meter,continuous (Dexcom G6 Saw Setter) misc cetirizine (ZyrTEC) 10 mg tablet citalopram (CeleXA) 40 mg tablet clopidogreL (PLAVIX) 75 mg tablet Dexcom G6 Sensor device Dexcom G6 Transmitter device estradioL (ESTRACE) 0.5 mg tablet ezetimibe (ZETIA) 10 mg tablet famotidine (PEPCID) 20 mg tablet fexofenadine (ADELA) 180 mg tablet insulin aspart (NovoLOG) 100 unit/mL vial for injection insulin pump cart,cont inf,BT (Omnipod Dash Insulin Pod) cartridge insulin syringe-needle U-100 1 mL 31 gauge x 5/16 syringe losartan (COZAAR) 25 mg tablet metFORMIN (GLUCOPHAGE) 1,000 mg tablet norethindrone (AYGESTIN) 5 mg tablet pediatric multivitamin-iron tablet,chewable propranoloL (INDERAL) 20 mg tablet semaglutide (Ozempic) 1 mg/dose (2 mg/1.5 mL) pen injector injection SUMAtriptan (IMITREX) 50 mg tablet zolpidem (AMBIEN) 10 mg tablet Review of Systems Review of Systems Constitutional: Negative. HENT: Negative. Eyes: Negative. Respiratory: Negative. Cardiovascular: Negative. Gastrointestinal: Negative. Endocrine: Negative. Genitourinary: Negative. Musculoskeletal: Positive for arthralgias, back pain and neck pain. Skin: Negative. Neurological: Negative. Psychiatric/Behavioral: Negative. Physical Exam There were no vitals filed for this visit. Estimated body mass index is 35.94 kg/m?? as calculated from the following: Height as of 06/22/21: 165.1 cm (5' 5 ). Weight as of 06/22/21: 98 kg (216 lb). Physical Exam Neurological: Mental Status: She is oriented to person, place, and time. Psychiatric: Mood and Affect: Mood normal. Assessment Encounter Diagnoses Name Primary? Type 2 diabetes mellitus with microalbuminuria, with long-term current use of insulin (CMS/HCC)([facility]) Yes ??? Type 2 diabetes mellitus with hyperglycemia, with long-term current use of insulin (CMS/HCC) ([facility]) ??? Radiculopathy, lumbosacral region ??? Morbid (severe) obesity due to excess calories ([facility]) ??? Lumbar facet joint syndrome ??? Cigarette smoker ??? Chronic bilateral low back pain with bilateral sciatica ??? Cervical radiculopathy ??? Anxiety and depression Review of Data: Clinical evaluation forms were reviewed including the PEG Scale Assessing Pain Intensity and Interference with score of: not filled out today Current Opioid Misuse Measure (COMM) reviewed with score of: not filled out today (> or equal to9 is higher risk of opioid misuse) [place] Prescription Drug Monitoring Reviewed and was consistent with office guidelines and policies. Most recent Urine Toxicology findings reviewed. Medical Decision Making / Plan: Pre-hypertension/Hypertension: The patient has been informed that they may have pre-hypertension orhypertension based on a blood pressure reading in the office today. I recommend that the patient call their primary care provider or a physician of their choice this week to arrange follow up for further evaluation of possible pre-hypertension or hypertension. I have also recommended that they try weight loss and exercise for management. Tobacco Screening: Sandy Lopez was screened for tobacco use. Patient is a tobacco user. Patient was briefly counseledabout the risks of tobacco use and the benefits of stopping. Patient has been advised to quit, and if that fails, to discuss pharmacological options with their family doctor. I saw Sandy Lopez today for follow up and medication refill. I also reviewed recent imaging with patient (see note below). She presents with ongoing unchanged low back pain that radiates into right buttock/hip. She also reports pain in other areas including her neck, right shoulder, and hands and right knee. Patient has tried and failed at least 3 months or more of conservative measures including activity modification, rest, OTC pain medications, home exercise, physical therapy. We reviewed her L/S MRI which indicates a L5-S1 disc herniation as well as varying degrees of multilevel facet arthropathy. In regards to her low back pain, we discussed options and we will start with a right L4-5 and [id number]. She states she has not, but will get the ordered neck xray. We will see her back after the lumbar TFESI, if pain relief insufficient, will consider LESI versus LMBB. We will also review the neck xray and determine ongoing plan of care which may include physical therapy for neck and/or low waylon k. DISCLAIMER: Patient seen for TeleHealth visit. Patient has been consented to TeleHealth over the phone by office staff. Physical exam is cumulative from prior visit and includes any update from telemedicine visit. 07/06/21 L/S MRI: T12-L1 normal?? L1-L2 normal?? L2-3 normal disc with mild facet joint disease without stenosis.?? L3-4 demonstrates minor disc bulging without stenosis. Mild to moderate facet joint disease.?? L4-5 demonstrates severe facet joint arthropathy with subluxation with diffuse disc bulging with spinal stenosis central and lateral recess without foraminal encroachment.?? L5-S1 disc demonstrates a central disc herniation contacting the dural sac with compression. Severefacet joint arthropathy. ?? IMPRESSION: ABNORMAL STUDY. DISC HERNIATION CENTRALLY MODERATE SIZE L5-S1. FACET JOINT ARTHROPATHY L4-5 L5-S1 WITH SPONDYLOLISTHESIS L4-5 WITH SPINAL STENOSIS Goals of Treatment: Treat underlying pathology, improve pain control, improve function and quality of life. Use of Medications: The pain management contract has been previously reviewed. Questions solicited and answered, and the patient endorses a clear understanding. The patient understands random toxicology screening and prescription drug monitoring will be used. Instructed to take the smallest effective dose of opioid medication. Risks/side-effects of opioid medications, if utilizing, have been reviewed including: drowsiness, tolerance, addiction, abuse, constipation, nausea, vomiting, itching, dizziness, allergic reaction, respiratory depression, lack of benefit, endocrine abnormalities, low testosterone, sexual dysfunction, or . If utilizing, risks/side-effects of NSAID???s and potential for gastrointestinal bleeding, gastritis/esophagitis, and increased cardiac risk reviewed. Risks/side-effects of Gabapentin, Lyrica, and other potential sedative medications, if utilizing, have been reviewed including drowsiness, sedation, dizziness, fluid retention, weight gain, respiratory depression, and . If utilizing medications, the patient has been instructed to take every medication appropriately, storing and disposing properly, never sharing medication. The patient has been instructed on opioid medications, including but not limited to: do not combine with other medications such as benzodiazepines, alcohol, muscle relaxers, or other depressant medications. Patient instructed to avoid driving and operating heavy machinery. UDS screens will be performed to assess for medication, metabolites, other medications, and illicit substances. Results may be discussed at the next visit. Spiritual Care Coordinator: Spiritual Care Coordinator done with [employer]ency [employer]: variances and may occur. Dictations not proofread. Problem list pertinent to today???s visit reviewed, but entire patient problem list not reviewed today. This note is prepared by JULISA Aguirre. I electronically signed this note at 8:18 AM on 07/20/21. I, Noy Hickey, have personally performed the services described in the documentation, and it accurately and completely records my words and actions though there are potential variances in recording and distribution center administrator. Dictated not proofread. documented in this encounter Miscellaneous Notes * Addendum Note - Kortney Arita RN - 07/20/2021 8:00 AM CDTEncounter addended by: Korntey Arita RN on: 07/25/2021 9:17 AM Actions taken: Clinical Note Signed, Charge Capture section accepted documented in this encounter Plan of Treatment Not on file documented as of this encounter Visit Diagnoses Diagnosis Chronic bilateral low back pain with bilateral sciatica- Primary Type 2 diabetes mellitus with hyperglycemia, with long-term current use of insulin (HCC) Radiculopathy, lumbosacral region Thoracic or lumbosacral neuritis or radiculitis, unspecified Morbid (severe) obesity due to excess calories (HCC) Lumbar facet joint syndrome Cigarette smoker Tobacco use disorder Cervical radiculopathy Brachial neuritis or radiculitis nos Anxiety and depression Herniation of intervertebral disc between L5 and S1 Type 2 diabetes mellitus with microalbuminuria, with long-term current use of insulin (HCC) Gastroesophageal reflux disease, unspecified whether esophagitis present documented in this encounter Care Teams Radiation Therapy Technician Relationship Specialty Start Date End Date Eron Holliday NP [address] [place], [place] [id number] PCP - General 06/28/21 05/08/22 documented as of this encounter
--- OUTSIDE RECORDS SUMMARY | 2024-03-03 15:37 | XMS_ITS | Encounter Summary ---
Author Organization [facility] Healthcare Address [address] [place] [address] Care Team Providers Care Corn Shucker Name Role Phone Marialuisa Daniel NP Primary Care Provider [phone] Reason for Visit * Reason Comments Initial Consult Back Pain Leg Pain Hand Pain Encounter Details Date Type Department Care Team (Late st Contact Info) Description 06/22/2021 1:18 PM CDT - 06/22/2021 11:59 PM CDT Hospital Encounter [facility] [address] [place] [address] Adams Tee MD [id number] [place] [address] [address] [place] [address] Radiculopathy, lumbosacral region (Primary Dx); Cervical radiculopathy; Lumbar facet joint syndrome; Chronic bilateral low back pain with bilateral sciatica Discharge Disposition: Discharge to home or self care Social History Tobacco Use Types Packs/Day Years Used Date Smoking Tobacco: Every Day Cigarettes Last attempted to quit: 03/20/2020 Smokeless Tobacco: Never Comments No Sex and Gender Information Value Date Recorded Sex Assigned at Not on file 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 Gender Identity Female 12/26/2023 10:11 PM CDT Sexual Orientation Straight 12/26/2023 10 :11 PM CDT documented as of this encounter Last Filed Vital Signs Vital Sign Reading Time Taken Comments Blood Pressure 144/68 06/22/2021 1:50 PM CDT Pulse 78 06/22/2021 1:50 PM CDT Temperature - - Respiratory Rate 16 06/22/2021 1:50 PM CDT Oxygen Saturation 98% 06/22/2021 1:50 PM CDT Inhaled Oxygen Concentration - - Weight 98 kg (216 lb) 06/22/2021 1:50 PM CDT Height 165.1 cm (5' 5 ) 06/22/2021 1:50 PM CDT Body Mass Index 35.94 06/22/2021 1:50 PM CDT documented in this encounter Medications at Time [...] each 07/04/2017 4 blood-glucose meter,continuous (Dexcom G6 Food Product Inspector) miscIndications:t ype 2 diabetes mellitus 1 Device continuously 1 each 1 01/24/2020 2 cetirizine (ZyrTEC) 10 mg tablet Take 1 tablet (10 mg total) by mouth daily 12/05/2018 4 citalopram (CeleXA) 40 mg tablet Take 20 mg by mouth daily 2 Dexcom G6 Sensor deviceIndications :Type 2 diabetes mellitus with hyperglycemia, with long-term current use of insulin ([facility]) USE TO TEST BLOOD SUGAR DIRECTED 9 each 3 04/02/2021 2 Dexcom G6 Transmitter deviceIndications :Type 2 diabetes mellitus with hyperglycemia, with long-term current use of insulin ([facility]) USE TO TEST BLOOD SUGAR TWICE A DAY 1 each 3 04/26/2021 3 estradioL (ESTRACE) 0.5 mg tablet Take 1 tablet (0.5 mg total) by mouth daily 10/11/2018 4 fexofenadine (ADELA) 180 mg tablet Take 180 mg by mouth daily 2 insulin aspart (NovoLOG) 100 unit/mL vial for injectionIndicati ons:Type 2 diabetes mellitus with microalbuminuria, with long-term current use of insulin ([facility]) USE PER INSULIN PUMP MAX OF 150 [...] documented in this encounter Progress Notes * Adams Tee MD - 06/22/2021 1:30 PM CDT Patient Name: Sandy Lopez : 1965 Today's Date: 06/22/2021 PCP: Marialuisa Daniel NP Referring: No ref. provider found Chief Complaint Patient presents with ??? Initial Consult ??? Back Pain ??? Leg Pain ??? Hand Pain HPI: Sandy is here for initial consult. She reports frequent low back pain, with a radicular component that extends to her right hip. This is her most bothersome area of pain. She also reports pain to herneck, right shoulder, bilateral hands, and right knee She describes her pain as sharp, stabbing, and aching, and rates it 7/10 today. She also reports numbness to her bilateral hands and feet, and weakness to her bilateral hands. She denies bladder/bowel dysfunction. Aggravating factors include prolonged sitting, standing, ambulating, lumbar extension, bending, and squatting. No alleviating factors noted. Sandy's back pain initially began after an injury 39 years ago, and has worsened over time. Going forward, she is interested in obtaining lumbar and cervical MRI's for review. Previous treatments: N/A Prior medications utilized: Tylenol, Steroids, Gabapentin, Flexeril, Tramadol, Tizanidine, [place], Morphine Allergies Allergen Reactions ??? Codeine Vomiting ??? Ibuprofen Other (See comments) Past Medical History: Diagnosis Date ??? Uncontrolled type 2 diabetes mellitus with hyperglycemia, with long-term current use of insulin([facility]) 04/03/2017 Patient Active Problem List Diagnosis ??? Anxiety and depression ??? Gastroesophageal reflux ??? Class 3 severe obesity due to excess calories with serious comorbidity and body mass index (BMI) of 40.0 to 44.9 in adult ([facility]) ??? Cigarette smoker ??? Type 2 diabetes mellitus with hyperglycemia, with long-term current use of insulin ([facility]) ([facility]) ??? Insulin pump titration ??? Type 2 diabetes mellitus with microalbuminuria, with long-term current use of insulin ([facility]) ??? Hyperlipidemia associated with type 2 diabetes mellitus ([facility]) ??? Morbid (severe) obesity due to excess calories ([facility]) ??? Radiculopathy, lumbosacral region ??? Cervical radiculopathy ??? Cervicalgia ??? Chronic bilateral low back pain with bilateral sciatica ??? Lumbar facet joint syndrome History reviewed. No pertinent surgical history. Social History Socioeconomic History ??? Marital status: Single Tobacco Use ??? Smoking status: Current Every Day Smoker Last attempt to quit: 03/20/2020 Years since quittin.2 ??? Smokeless tobacco: Never Used History reviewed. No pertinent family history. HOME MEDICATIONS : aspirin 81 mg enteric coated tablet atorvastatin (LIPITOR) 80 mg tablet blood-glucose meter kit blood-glucose meter,continuous (Dexcom G6 Food Product Inspector) misc citalopram (CeleXA) 40 mg tablet clopidogreL (PLAVIX) 75 mg tablet Dexcom G6 Sensor device Dexcom G6 Transmitter device estradioL (ESTRACE) 0.5 mg tablet ezetimibe (ZETIA) 10 mg tablet famotidine (PEPCID) 20 mg tablet insulin aspart (NovoLOG) 100 unit/mL vial for injection insulin pump cart,cont inf,BT (Omnipod Dash Insulin Pod) cartridge insulin syringe-needle U-100 1 mL 31 gauge x 5/16 syringe losartan (COZAAR) 25 mg tablet metFORMIN (GLUCOPHAGE) 1,000 mg tablet norethindrone (AYGESTIN) 5 mg tablet propranoloL (INDERAL) 20 mg tablet semaglutide (Ozempic) 1 mg/dose (2 mg/1.5 mL) pen injector injection SUMAtriptan (IMITREX) 50 mg tablet zolpidem (AMBIEN) 10 mg tablet cetirizine (ZyrTEC) 10 mg tablet fexofenadine (ADELA) 180 mg tablet pediatric multivitamin-iron tablet,chewable Review of Systems Review of systems completed, reviewed, and scanned into the chart. Physical Exam Vitals: 06/22/21 1350 BP: 144/68 BP Location: Right arm Patient Position: Sitting Pulse: 78 Resp: 16 SpO2: 98% Weight: 98 kg (216 lb) Height: 165.1 cm (5' 5 ) Estimated body mass index is 35.94 kg/m?? as calculated from the following: Height as of this encounter: 165.1 cm (5' 5 ). Weight as of this encounter: 98 kg (216 lb). No apparent distress Alert and oriented Normal respiratory effort Abdomen not distended There is pain with bilateral lumbar extension/facet loading. Pain is exacerbated by twisting to either side. No TTP lumbar paraspinals Assessment Encounter Diagnoses Name Primary? Radiculopathy, lumbosacral region Yes ??? Cervical radiculopathy ??? Lumbar facet joint syndrome ??? Chronic bilateral low back pain with bilateral sciatica Medical Decision Making / Plan: VAS reviewed with score of: 7/10 PEG Scale Assessing Pain Intensity and Interference reviewed with score of: 6/10 Current Opioid Misuse Measure (COMM) reviewed with score of : 1 (> or equal to 9 is higher risk of opioid misuse) [place] and [place] Prescription Drug Monitoring Reviewed and found appropriate. Plan: Sandy is here today with longstanding pain issues affecting her low back, that in fact since she was a teenager, as well as longstanding neck pain. She has tried and failed several years of conservative measures including rest, therapy, home exercise program, activity modification, and medications including Tylenol and anti-inflammatories. This limits her activity level relatively substantially. Based on history and physical I think the longstanding pain is likely combination of joint based pain and likely some musculoskeletal type pain. However I cannot rule out disc degeneration and stenosis with radiculopathy as other potential causes of pain. As such I would like for her to obtain cervical and lumbar MRIs to help guide us with further treatment planning to differentiate the potential sources of pain and determine next steps in treatment whether this be injection therapy or surgical referral. We would recommend trying to work on overall increase in whole body activity level as I think that will help some of the joint and muscle based pain. For now we are going to see Sandy back soon for review of MRIs and further treatment planning based on results. Goals of Treatment: Treat underlying pathology, improve [...] may be discussed at the next visit. Tobacco Screening: Sandy Lopez was screened for tobacco use. Patient is a tobacco user. Patient was briefly counseledabout the risks of tobacco use and the benefits of stopping. Patient has been advised to quit, and if that fails, to discuss pharmacological options with their family doctor. Packer: Packer done with Fluency Direct: variances and inaccuracies may occur. Dictations not proofread. Problem list pertinent to today???s visit reviewed, but entire patient problem list not reviewed today. This note is prepared by Janell Artis, acting as a scribe for Adams Tee MD. I electronically signed this note at 4:25 PM on 06/22/21. I, Adams Tee MD, have personally performed the services described in the documentation,reviewed the documentation as recorded by the scribe in my presence, and it accurately and completely records my words and actions though there are potential variances in recording and internet marketing specialist.Dictations not proofread. documented in this encounter Plan of Treatment Not on file documented as of this encounter Visit Diagnoses Diagnosis Radiculopathy, lumbosacral region- Primary Thoracic or lumbosacral neuritis or radiculitis, unspecified Cervical radiculopathy Brachial neuritis or radiculitis nos Lumbar facet joint syndrome Chronic bilateral low back pain with bilateral sciatica documented in this encounter Historical Medications * This list may reflect changes made after this encounter. fexofenadine (ADELA) 180 mg tablet Take 180 mg by mouth daily 12/28/2021 added in this encounter Care Teams Corn Shucker Relationship Specialty Start Date End Date Marialuisa Daniel NP PCP - General 07/07/20 06/27/21 documented as of this encounter
--- OUTSIDE RECORDS SUMMARY | 2024-03-03 15:37 | XMS_ITS | Encounter Summary ---
Author Organization [facility] Address [address] [place] [address] Care Team Providers Care Automobile Service Advisor Name Role Phone Eron Holliday NP Primary Care Provider [phone] Reason for Visit * Reason Onset Date Comments PA for Dexcom sensors and Omnipod DASH pods 01/25 Encounter Details Date Type Department Care Team (Late st Contact Info) Description 02/12/[address] 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 K SERVICE WORKER documented in this encounter Plan of Treatment Not on file documented as of this encounter Visit Diagnoses Not on filedocumented in this encounter Care Teams Automobile Service Advisor Relationship Specialty Start Date End Date Eron Holliday NP [address] [place] [id number] PCP - General 06/28/21 05/08/22 documented as of this encounter
--- OUTSIDE RECORDS SUMMARY | 2024-03-03 15:37 | XMS_ITS | Encounter Summary ---
Author Organization [facility] Medical [facility] Address [address] [place] [address] Care Team Providers Care Licensed Clinical Social Worker Name Role Phone Vilma Herrera Primary Care Provider [phone] Encounter Details Date Type Department Care Team (Late st Contact Info) Description 03/27/2020 Telephone [facility] of [address] [place] [address] Lorne Mcginnis MD [address] [place] [address] [address] [place] [address] Social History Tobacco Use Types Packs/Day Years Used Date Smoking Tobacco: Every Day Smokeless Tobacco: Never Comments Unknown Sex and Gender Information Value Date Recorded Sex Assigned at Not on file 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 Max daily dose 120 units. E11.65 40 mL 5 03/27/2020 documented in this encounter Miscellaneous Notes * Telephone Encounter - Marialuisa Daniel NP - 03/27/2020 3:39 PM CST New prescription sent with increase max. Daily dose. Marialuisa WARE ADMINISTRATOR * Telephone Encounter - Brian Metz MA - 03/27/2020 3:11 PM CST marialuisa WARE ADMINISTRATOR * Telephone Encounter - Eulalio Simental - 03/27/2020 3:04 PM CST Pt calling to check on new script. She states she only has 33 units left in her pump WARE ADMINISTRATOR * Telephone Encounter - Allyssa Avina MA - 03/27/2020 2:52 PM CST Please advise, thank you WARE ADMINISTRATOR * Telephone Encounter - Armida Saeed - 03/27/2020 2:39 PM CST Marialuisa - Pt is using more than the 75 ml of Novolog in her insulin pump. The pharmacy checked and thept used 108 yesterday. Her pharmacy, [facility], is asking for a new prescription for the pt's Novolog because the pt is out and is asking for an early refill. Please advise. WARE ADMINISTRATOR documented in this encounter Plan of Treatment Not on file documented as of this encounter Visit Diagnoses Diagnosis Type 2 diabetes mellitus with microalbuminuria, with long-term current use of insulin (HCC) documented in this encounter Discontinued Medications Medication Sig Discontinue Reason Start Date End Da te insulin aspart U-100 (NovoLOG U-100 Insulin aspart) 100 unit/mL injection Inject 25 Units under the skin 2 (two) times a day 08/16/2019 03/27/2020 insulin aspart U-100 (NovoLOG U-100 Insulin aspart) 100 unit/mL injectionIndications:Ty pe 2 diabetes mellitus with microalbuminuria, with long-term current use of insulin (HCC) Inject per Medtronic insulin pump. Max daily dose 75 units. 12/14/2019 03/27/2020 documented as of this encounter Care Teams Licensed Clinical Social Worker Relationship Specialty Start Date End Date Vilma Herrera PA [address] [place] [address] PCP - General Physician Elevator Troubleshooter 08/19/19 07/06/20 documented as of this encounter
--- OUTSIDE RECORDS SUMMARY | 2024-03-03 15:37 | XMS_ITS | Encounter Summary ---
Author Organization [facility] Healthcare Address [address] [place] [address] Care Team Providers Care Drilling Fluids Specialist Name Role Phone Eron Holliday NP Primary Care Provider [phone] Encounter Details Date Type Department Care Team (Late st Contact Info) Description 08/22/2021 10:02 AM CDT - 08/22/2021 10:20 AM CDT Hospital Encounter [facility] [address] [place] [address] [place] [address] [facility] [address] [place] [address] Herniation of intervertebral disc between L5 and S1; Radiculopathy, lumbosacral region Discharge Disposition: Discharge to home or self care Social History Tobacco Use Types Packs/Day Years Used Date Smoking Tobacco: Every Day Cigarettes Last attempted to quit: 03/20/2020 Smokeless Tobacco: Never Comments No Sex and Gender Information Value Date Recorded Sex Assigned at Not on file 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 Gender Identity Female 12/26/2023 10:11 PM CDT Sexual Orientation Straight 12/26/2023 10 :11 PM CDT documented as of this encounter Last Filed Vital Signs Vital Sign Reading Time Taken Comments Blood Pressure 163/78 08/22/2021 10:18 AM CDT Pulse 77 08/22/2021 10:18 AM CDT Temperature 37.2 ??C (98.9 ??F) 08/22/2021 10:18 AM C DT Respiratory Rate 18 08/22/2021 10:18 AM CDT Oxygen Saturation 98% 08/22/2021 10:18 AM CDT Inhaled Oxygen Concentration - - Weight - - Height - - Body Mass Index - - documented in this encounter Discharge Instructions * Discharge Instructions* Anuja Amos RN - 08/22/2021 10:05 AM CDT Transforaminal epidural Initially you may notice some relief from the lidocaine. You then may notice a slight increase in pain after the procedure. This should start to improve within the next 24-48 hours. It may take as long as 72 hours before the steroid kicks in and you notice a gradual improvement inyour pain/symptoms. If you are taking pain medications you may continue to take them. You may restart your medications the day after the procedure. If you are going to physical therapy continue to do so. You may not drive until numbness wear off. If you experience pain at the injection site, you may apply ice to the affected area for area for 20 minutes every 2 hours. No heat to the injection site for 24 hours. No tub bath or soaking in water(pools/jacuzzi, etc.) for 24 hours. If you develop ANY other symptoms, such as severe pain, headache, visual changes, new numbness or weakness any where on your body, loss of control of your bowels or bladder, or have signs of infection (temperature of 100.4 or greater, drainage at the injection site) Call the Pain Management Center i mmediately at [phone]. After hours, contact the [facility] at [phone] and she will reach your physician for you. In case of emergency call [phone] Pay attention to how pain changes, even today, this helps with the diagnosis Watch for leg numbness and weakness documented in this encounter Medications at Time [...] TABLET BY MOUTH DAILY 28 tablet 2 08/16/2021 2 blood-glucose meter kitIndications:Un controlled type 2 diabetes mellitus with hyperglycemia, with long-term current use of insulin (HCC) Use daily or as directed for monitoring of diabetes 1 each 07/04/2017 4 blood-glucose meter,continuous (Dexcom G6 Ocean Import Representative) miscIndications:t ype 2 diabetes mellitus 1 Device continuously 1 each 1 01/24/2020 2 cetirizine (ZyrTEC) 10 mg tablet Take 1 tablet (10 mg total) by mouth daily 12/05/2018 4 citalopram (CeleXA) 40 mg tablet Take 20 mg by mouth daily 2 Dexcom G6 Ocean Import Representative miscIndications:T ype 2 diabetes mellitus with hyperglycemia, [...] MOUTH DAILY 90 tablet 3 01/05/2021 2 losartan (COZAAR) 50 mg tablet 08/16/2021 2 meclizine (ANTIVERT) 25 mg tablet Take 1 tablet by mouth 03/06/2021 2 metFORMIN (GLUCOPHAGE) 1,000 mg tablet TAKE 1 TABLET BY MOUTH TWICE A DAY WITH FOOD 180 tablet 3 08/21/2021 3 norethindrone (AYGESTIN) 5 mg tablet Take 5 [...] or self care documented in this encounter H&P Notes * Adams Tee MD - 08/22/2021 10:15 AM CDT Patient Name: Sandy Lopez : 1965 Today's Date: 08/22/2021 PCP: Eron Holliday NP Referring: No ref. provider found No diagnosis found. Allergies Allergen Reactions ??? Codeine Vomiting ??? Ibuprofen Other (See comments) Past Medical History: Diagnosis Date ??? Uncontrolled type 2 diabetes mellitus with hyperglycemia, with long-term current use of insulin([facility]) 04/03/2017 History reviewed. No pertinent surgical history. Social History Tobacco Use ??? Smoking status: Current Every Day Smoker Last attempt to quit: 03/20/2020 Years since quittin.4 ??? Smokeless tobacco: Never Used Substance and Sexual Activity ??? Drug use: None ??? Sexual activity: None Alcohol Use: Not on file History reviewed. No pertinent family history. HOME MEDICATIONS : aspirin 81 mg enteric coated tablet atorvastatin (LIPITOR) 80 mg tablet blood-glucose meter kit blood-glucose meter,continuous (Dexcom G6 Ocean Import Representative) misc cetirizine (ZyrTEC) 10 mg tablet citalopram [...] mg tablet zolpidem (AMBIEN) 10 mg tablet Plan: Right L4-L5, L5-S1 Transforaminal Epidural Steroid Injection. Patient has not stopped blood thinner, will do toradol injection instead. This note is prepared by Janell Artis, acting as a scribe for Adams Tee MD. I electronically signed this note at 10:09 AM on 08/22/2021. I, Adams Tee MD, have personally performed the services described in the documentation,reviewed the documentation, as recorded by the scribe in my presence, and it accurately and completely records my words and actions. documented in this encounter Miscellaneous Notes * Op Note - Adams Tee MD - 08/22/2021 10:15 AM CDT 60 toradol IV given. documented in this encounter Plan of Treatment Not on file documented as of this encounter Visit Diagnoses Diagnosis Herniation of intervertebral disc between L5 and S1 Radiculopathy, lumbosacral region Thoracic or lumbosacral neuritis or radiculitis, unspecified documented in this encounter Administered Medications Inactive Administered Medications - up to 3 most recent administrations Medication Order MAR Action Action Date Dose Rate Site ketorolac (TORADOL) 30 mg/mL (1 mL) injection As needed, Starting on Fri08/22/21 at 1031, Intra-Op Given 08/22/2021 10:31 AM CDT 60 mg Right Arm documented in this encounter Care Teams Drilling Fluids Specialist Relationship Specialty Start Date End Date Eron Holliday NP [address] [place] [address] PCP - General 06/28/21 05/08/22 documented as of this encounter
--- OUTSIDE RECORDS SUMMARY | 2024-03-03 15:37 | XMS_ITS | Encounter Summary ---
Author Organization [facility] Medical Group Address [address] [place] [address] Care Team Providers Care Roof Bolter Name Role Phone Marialuisa Tyson NP Primary Care Provider [phone] Reason for Visit * Reason Comments Diabetes Type 2 Encounter Details Date Type Department Care Team (Late st Contact Info) Description 08/18/2020 10:30 AM CDT Office Visit [facility] of [address] [place] [address] Marialuisa Tyson, JAVA SYSTEMS ANALYST [address] [address] Type 2 diabetes mellitus with hyperglycemia, with long-term current use of insulin (CMS/HCC) (Primary Dx); Type 2 diabetes mellitus with microalbuminuria, with long-term current use of insulin (CMS/HCC); Hyperlipidemia associated with type 2 diabetes mellitus (CMS/HCC); Insulin pump titration Social History Tobacco Use Types Packs/Day Years Used Date Smoking Tobacco: Former Cigarettes Q uit: 03/20/2020 Smokeless Tobacco: Never Comments Unknown Sex and Gender Information Value Date Recorded Sex Assigned at Not on file Legal Sex Female 8:53 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 Gender Identity Female 12/26/2023 10:11 PM CDT Sexual Orientation Straight 12/26/2023 10 :11 PM CDT documented as of this encounter Last Filed Vital Signs Vital Sign Reading Time Taken Comments Blood Pressure 126/86 08/18/2020 10:52 AM CDT Pulse - - Temperature - - Respiratory Rate - - Oxygen Saturation - - Inhaled Oxygen Concentration - - Weight 107.4 kg (236 lb 12.8 oz) 2020 10:52 AM CDT Height 165.1 cm (5' 5 ) 08/18/2020 10:5 2 AM CDT Body Mass Index 39.41 08/18/2020 10:52 AM CDT documented in this encounter Patient Instructions * Patient Instructions* Marialuisa Tyson, JAVA SYSTEMS ANALYST - 08/18/2020 10:30 AM CDT Thanks for coming in today. My medical transcription supervisor, Allyssa, and I are thankful you have trusted us withyo care, and hope that you received EXCELLENT care today! Please do not hesitate to call if you have any questions or concerns at [phone]. You may receive a phone call or text asking about your care today. We would love to hear your input and again, hope your visit was as EXCELLENT as possible, even if you were not feeling your best! Medications: ??? Please take medications as prescribed. Continue on Omnipod - doses adjusted. Monitoring: ??? Check blood sugar continuously with DexCom. We will be requesting to see blood [...] once per week. ??? See the Dietitian, Package Dyeing Machine Operator . Call Centralized Scheduling at [phone] to make an appointment. Exercise: ??? Try [...] Refills Last Filled Start Date End Date semaglutide (Ozempic) 1 mg/dose (2 mg/1.5 mL) pen injector injectionIndicatio ns:type 2 diabetes mellitus Inject 1 mg under the skin every 7 days 4 pen 5 08/18/2020 09/13/2021 documented in this encounter Progress Notes * Marialuisa Tyson NP - 08/18/2020 10:30 AM CDT Images from the original note were not included. Subjective/Objective Patient ID: Sandy Lopez is a 55 y.o. female. Chief Complaint Diabetes Type 2 Today visit is a follow up visit. She has Type 2 Diabetes. Her weight has increased by 19 lbs however, she stopped smoking 6 months ago. 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 Sheeats 2-3 meals/day. She monitors blood sugar by wearing the DexCom 6 sensor. The Dexcom 6 was downloaded and reviewed. She denies hypoglycemia. Today's visit is to review labs and discuss future plan. ?? Diabetes regimen: Omnipod - increased to 0000-2.25, 0400-2.45 ic-6, isf-20 Trulicity 3.0 weekly- burning at injection site- will switch back to ozemic 0.5mg weekly Allergies Allergen Reactions ??? Codeine Vomiting Current Outpatient Medications Medication Sig Dispense Refill ??? aspirin 81 mg enteric coated tablet Take 81 mg by mouth daily ??? atorvastatin (LIPITOR) 80 mg tablet TAKE 1 TABLET BY MOUTH DAILY 30 tablet 11 ??? blood glucose diagnostic (Contour Next Test Strips) strip CHECK BLOOD SUGAR FOUR TIMES A DAY ORAS DIRECTED 300 each 11 ??? blood-glucose meter kit Use daily or as directed for monitoring of diabetes 1 each 0 ??? blood-glucose meter,continuous (Dexcom G6 Transportation Escort) misc 1 Device continuously 1 each 1 [...] x 5/16 syringe Twice a day ??? lancets (ACCU-CHEK MULTICLIX LANCET) [facility] Check blood sugar four times a day or as directed 1 each 11 ??? losartan (COZAAR) 25 mg tablet Take 1 tablet (25 mg total) by mouth daily 30 tablet 11 ??? metFORMIN (GLUCOPHAGE) 1,000 mg tablet TAKE 1 TABLET BY MOUTH TWICE A DAY WITH FOOD 60 tablet 11 ??? norethindrone (AYGESTIN) 5 mg tablet Take 5 mg by mouth daily ??? zolpidem (AMBIEN) 10 mg tablet Take 10 mg by mouth nightly as needed ??? Basaglar KwikPen U-100 Insulin 100 unit/mL (3 mL) insulin pen INJECT 38 UNITS SUBCUTANEOUSLY EVERY TWELVE HOURS (Patient not taking: Reported on 08/18/2020) 15 mL 3 ??? calcium carbonate-vitamin D3 (CALTRATE 600 + D) 1500 mg (600 mg elemental) - 400 units per tablet Take 1 tablet by mouth 2 (two) times a day (Patient not taking: Reported on 08/18/2020) ??? DULoxetine DR (CYMBALTA) 30 mg capsule Take 30 mg by mouth daily (Patient not taking: Reported on 08/18/2020) ??? semaglutide (Ozempic) 1 mg/dose (2 mg/1.5 mL) pen injector injection Inject 1 mg under the skinevery 7 days 4 pen 5 No current facility-administered medications for this visit. Past Medical History: Diagnosis Date ??? Uncontrolled type 2 diabetes mellitus with hyperglycemia, with long-term current use of insulin([facility]) 04/03/2017 Social History Tobacco Use ??? Smoking status: Former Smoker Quit date: 03/20/2020 Years since quittin.4 ??? Smokeless tobacco: Never Used Substance Use Topics ??? Alcohol use: Not on file No family history on file. Lab Results Component Value Date HGBA1C 8.3 08/18/2020 HGBA1C 8.4 05/12/2020 HGBA1C [...] soft. Musculoskeletal: General: Normal range of motion. Lymphadenopathy: Cervical: No cervical adenopathy. Skin: General: Skin is warm and dry. Capillary Refill: Capillary refill takes less than 2 seconds. Neurological: Mental Status: She is alert and oriented to person, place, and time. Psychiatric: Mood and Affect: Mood normal. Behavior: Behavior normal. Assessment/Plan Diagnoses and all orders for this visit: Type 2 diabetes mellitus with hyperglycemia, with long-term current use of insulin ([facility]) (Primary) Assessment & Plan: This is a [...] eye exam. ??last dilated eye exam was [facility] [place]? Monofilament foot exam completed, protective senses intact [...] No history of macrovascular disease - CVA, [place].? Dexcom downloaded for??08/05/20 to 08/18/20 This device [...] smoking and gained weight. Insulin pump adjusted. Orders: - POCT lipid panel - POCT hemoglobin A1c - POCT microalbumin - semaglutide (Ozempic) 1 mg/dose (2 mg/1.5 mL) pen injector injection; Inject 1 mg under the skin every 7 days Type 2 diabetes mellitus with microalbuminuria, with long-term current use of insulin ([facility]) Assessment & Plan: This is a chronic condition which is stable Urine microalbumin/creatinine ratio -??865?-on Losartan 25 mg daily, HCTZ, ?goal <30 . ??Seeing Dr. Bhagat (supervisor evaporator) Personally reviewed labs: (06/14)BUN-??16, creatinine- 0.94, GFR-69 Kidney function- abnormal B/P today-126/86??, currently Losartan 25 mg daily and HCTZ. ??At goal blood pressure is <140/90 Hyperlipidemia associated with type 2 diabetes mellitus (CMS/HCC) Assessment & Plan: This is a chronic [...] per week. Please take medications as prescribed. Insulin pump titration Assessment & Plan: This is a chronic condition which is stable, but not at goal. ?? Download reviewed. Type of insulin pump-Omnipod insulin delivery system with DexCom 6 sensor Basal??increased to 0000-2.25 0400-2.45 IC??-6 ISF-20?? Active insulin time 4hrs. TARGET GLUCOSE?110-120 Avg BG?196 Discussed and educated on eating a healthy [...] treatment plan and prescribed medications. Follow up 6 weeks Marialuisa Tyson NP documented in this encounter Miscellaneous Notes * Assessment & Plan Note - Marialuisa Tyson NP - 08/19/2020 8:13 AM CDTAssociated Problem(s): Hyperlipidemia associated with type [...] per week. Please take medications as prescribed. * Assessment & Plan Note - Marialuisa Tyson NP - 08/19/2020 8:08 AM CDTAssociated Problem(s): Type 2 diabetes mellitus with microalbuminuria, with long-term current use of insulin (HCC) This is a chronic condition which is stable Urine microalbumin/creatinine ratio -??865?-on Losartan 25 mg daily, HCTZ, ?goal <30 . ??Seeing Dr. Bhagat (supervisor evaporator) Personally reviewed labs: (06/14)BUN-??16, creatinine- 0.94, GFR-69 Kidney function- abnormal B/P today-126/86??, currently Losartan 25 mg daily and HCTZ. ??At goal blood pressure is <140/90 * Assessment & Plan Note - Marialuisa Tyson NP - 08/19/2020 8:05 AM CDTAssociated Problem(s): Omnipod Dash Insulin pump in place This is a chronic condition which is stable, but not at goal. ?? Download reviewed. Type of insulin pump-Omnipod insulin delivery system with DexCom 6 sensor Basal??increased to 0000-2.25 0400-2.45 IC??-6 ISF-20?? Active insulin time 4hrs. TARGET GLUCOSE?110-120 Avg BG?196 * Assessment & Plan Note - Marialuisa Tyson NP - 08/19/2020 7:55 AM CDTAssociated Problem(s): Type 2 diabetes mellitus with diabetic peripheral angiopathy without gangrene, with long-term current use of insulin ([facility]) (HCC) (Deleted) This is a chronic condition which is [...] eye exam. ??last dilated eye exam was [facility] [place]? Monofilament foot exam completed, protective [...] No history of macrovascular disease - CVA, [place].? Dexcom downloaded for??08/05/20 to 08/18/20 This device [...] smoking and gained weight. Insulin pump adjusted. * Assessment & Plan Note - Marialuisa Tyson NP - 08/18/2020 10:30 AM CDT Associated Problem(s): Type 2 diabetes mellitus with hypoglycemia without coma, with long-term current use of insulin ([facility]) >>ASSESSMENT AND PLAN FOR TYPE 2 DIABETES MELLITUS WITH DIABETIC PERIPHERAL ANGIOPATHY WITHOUT GANGRENE, WITH LONG-TERM CURRENT USE OF INSULIN ([facility]/HCC) (HCC) WRITTEN ON 08/19/2020 8:04 AM BY MARIALUISA TYSON NP This is a chronic condition which is [...] eye exam. ??last dilated eye exam was [facility] [place]? Monofilament foot exam completed, protective [...] No history of macrovascular disease - CVA, [place].? Dexcom downloaded for??08/05/20 to 08/18/20 This device [...] smoking and gained weight. Insulin pump adjusted. documented in this encounter Plan of Treatment Not on file documented as of this encounter Procedures Procedure Name Priority Date/Time Associated Diagnosis Comments POCT LIPID PANEL Routine 08/18/2020 11:2 7 AM CDT Type 2 diabetes mellitus with hyperglycemia, with long-term current use of insulin ([facility]) POCT MICROALBUMIN Routine 08/18/2020 11: 27 AM CDT Type 2 diabetes mellitus with hyperglycemia, with long-term current use of insulin ([facility]) POCT HEMOGLOBIN A1C Routine 08/18/2020 1 1:25 AM CDT Type 2 diabetes mellitus with hyperglycemia, with long-term current use of insulin ([facility]) documented in this encounter Results * POCT microalbumin (08/18/2020 11:27 AM CDT) Microalbumin, POC 150 mg/L Urine 08/18/2020 11:2 7 AM CDT Marialuisa Tyson NP POINT OF CARE TEST ORDERABLES F inal Result * POCT lipid panel (08/18/2020 11:27 AM CDT) Cholesterol, POC 157 mg/dL HDL, POC 29 mg/dL Triglycerides, POC 251 mg/dL LDL Cholesterol POC 77 mg/dL Chol/HDL Ratio, POC 2.7 Non-HDL Cholesterol, POC 128 mg/dL Cholesterol Total, POC 157 mg/dL Capillary blood 08/18/2020 1 1:27 AM CDT us Marialuisa Tyson NP POINT OF CARE TEST ORDERABLES F inal Result * POCT hemoglobin A1c (08/18/2020 11:25 AM CDT) Hemoglobin A1C, POC 8.3 Blood specimen (specimen) 08/18/2020 11:25 AM CDT us Marialuisa Tyson NP POINT OF CARE TEST ORDERABLES F inal Result documented in this encounter Visit Diagnoses Diagnosis Type 2 diabetes mellitus with hyperglycemia, with long-term current use of insulin (HCC)- Primary Type 2 diabetes mellitus with microalbuminuria, with long-term current use of insulin (HCC) Hyperlipidemia associated with type 2 diabetes mellitus (HCC) Insulin pump titration Fitting and adjustment of insulin pump documented in this encounter Discontinued Medications Medication Sig Discontinue Reason Start Date End Da te dulaglutide (Trulicity) 3 mg/0.5 mL pen injectorIndications:type 2 diabetes mellitus Inject 0.5 mL (3 mg total) under the skin every 7 days Therapy completed 03/10/2020 08/18/[address] (CYMBALTA) 30 mg capsule Take 30 mg by mouth daily Therapy completed 08/19/2020 calcium carbonate-vitamin D3 (CALTRATE 600 + D) 1500 mg (600 mg elemental) -400 units per tablet Take 1 tablet by mouth 2 (two) times a day Therapy completed 10/15/2018 08/19/2020 documented as of this encounter Care Teams Roof Bolter Relationship Specialty Start Date End Date Marialuisa Tyson NP PCP - General 07/07/20 06/27/21 documented as of this encounter
--- OUTSIDE RECORDS SUMMARY | 2024-03-03 15:37 | XMS_ITS | Encounter Summary ---
Author Organization [facility] Medical Group Address [address] [place] [address] Care Team Providers Care Pack Master Name Role Phone Vilma Herrera Primary Care Provider Encounter Details Date Type Department Care Team (Late st Contact Info) Description 07/03/2020 Telephone [facility] of [address] [place] [address] Marialuisa Daniel, CHRISTOPHER [address] [address] Social History Tobacco Use Types Packs/Day Years Used Date Smoking Tobacco: Every Day Smokeless Tobacco: Never Comments Unknown Sex and Gender Information Value Date Recorded Sex Assigned at Not on file Legal 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 * Telephone Encounter - Corinna Wright MA - 07/03/2020 1:29 PM CDT Please see message from patient. * Telephone Encounter - SimentalEulalio - 07/03/2020 1:22 PM CDT Pt states her omnipod dash is supposed to last her 48 hours but she has been having to change it out every day and a half. She is needing to speak to Marialuisa about updating her rx so she stops running out. Please advise. documented in this encounter Plan of Treatment Not on file documented as of this encounter Visit Diagnoses Not on filedocumented in this encounter Care Teams Pack Master Relationship Specialty Start Date End Date Vilma Herrera PA [address] [place] [address] PCP - General Physician Field Service Specialist 08/19/19 07/06/20 documented as of this encounter
--- OUTSIDE RECORDS SUMMARY | 2024-03-03 15:37 | XMS_ITS | Encounter Summary ---
Author Organization [facility] Medical Group Address [address] [place] [address] Care Team Providers Care Traffic Lieutenant Name Role Phone Marialuisa Daniel NP Primary Care Provider [phone] Encounter Details Date Type Department Care Team (Late st Contact Info) Description 03/01/2021 Telephone [facility] of [address] [place] [address] Marialuisa Daniel, ENGRAVER ORNAMENTAL DESIGN [address] [address] [address] [place] [address] Social History Tobacco Use Types Packs/Day Years Used Date Smoking Tobacco: Every Day Cigarettes Last attempted to quit: 03/20/2020 Smokeless Tobacco: Never Comments Unknown Sex and Gender Information Value Date Recorded Sex Assigned at Not on file 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 SIT PROOF MACHINE OPERATOR documented in this encounter Plan of Treatment Not on file documented as of this encounter Visit Diagnoses Not on filedocumented in this encounter Care Teams Traffic Lieutenant Relationship Specialty Start Date End Date Marialuisa Daniel NP PCP - General 07/07/20 06/27/21 documented as of this encounter
--- OUTSIDE RECORDS SUMMARY | 2024-03-03 15:37 | XMS_ITS | Encounter Summary ---
Author Organization [facility] Medical Group Address [address] [place] [address] Care Team Providers Care Hospice Consultant Name Role Phone Eron Holliday NP Primary Care Provider [phone] Reason for Visit * Reason Onset Date Comments Test Results 07/13/2021 Encounter Details Date Type Department Care Team (Late st Contact Info) Description 07/13/2021 Telephone [facility] of [address] [place] [address] Marialuisa Daniel NP [address] [address] Test Results Social History Tobacco Use Types Packs/Day Years Used Date Smoking Tobacco: Every Day Cigarettes Last attempted to quit: 03/20/2020 Smokeless Tobacco: Never Comments No Sex and Gender Information Value Date Recorded Sex Assigned at Not on file Legal Sex Female 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 To help get these down in addition to her current medications, Please increase your activity by walk 30 minutes 5 days/week. Let me know if you have any questions. documented in this encounter Plan of Treatment Not on file documented as of this encounter Visit Diagnoses Not on filedocumented in this encounter Care Teams Hospice Consultant Relationship Specialty Start Date End Date Eron Holliday NP [address] [facility] [place] [address] PCP - General 06/28/21 05/08/22 documented as of this encounter
--- OUTSIDE RECORDS SUMMARY | 2024-03-03 15:37 | XMS_ITS | Encounter Summary ---
Author Organization [facility] Healthcare Address [address] [place] [address] Care Team Providers Care Acid Conditioning Worker Name Role Phone Marialuisa Daniel NP Primary Care Provider [phone] Encounter Details Date Type Department Care Team (Late st Contact Info) Description 06/27/2021 [facility] Only [facility] [address] [place] [address] [place] [address] [facility] [address] [place], [place] [id number] Cervicalgia (Primary Dx); Cervical radiculopathy Social History Tobacco Use Types Packs/Day Years Used Date Smoking Tobacco: Every Day Cigarettes Last attempted to quit: 03/20/2020 Smokeless Tobacco: Never Comments No Sex and Gender Information Value Date Recorded Sex Assigned at Not on file Legal Sex Female 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
--- OUTSIDE RECORDS SUMMARY | 2024-03-03 15:37 | XMS_ITS | Encounter Summary ---
Author Organization [facility] Group Address [address] [place] [address] Care Team Providers Care Men'S Locker Room Attendant Name Role Phone Eron Holliday NP Primary Care Provider [phone] Reason for Visit * Reason Comments Diabetes Type 2 Encounter Details Date Type Department Care Team (Late st Contact Info) Description 09/13/2021 8:30 AM CDT Office Visit [facility] of [address] [place] [address] Marialuisa Tyson, CHRISTOPHER [address] [facility] [facility] [address] [place] [address] Type 2 diabetes mellitus with hyperglycemia, with long-term current use of insulin ([facility]) (HCC) (Primary Dx); Type 2 diabetes mellitus with microalbuminuria, with long-term current use of insulin (CMS/HCC) (HCC); Herpes zoster without complication; Hyperlipidemia associated with type 2 diabetes mellitus (HCC); Primary hypertension; Insulin pump in place; Cigarette smoker; Morbid (severe) obesity due to excess calories (HCC) Social History Tobacco Use Types Packs/Day Years Used Date Smoking Tobacco: Former Cigarettes Q uit: 03/20/2020 Smokeless Tobacco: Never Comments No Sex and Gender Information Value Date Recorded Sex Assigned at Not on file Legal Sex 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 Gender Identity Female 12/26/2023 10:11 PM CDT Sexual Orientation Straight 12/26/2023 10 :11 PM CDT documented as of this encounter Last Filed Vital Signs Vital Sign Reading Time Taken Comments Blood Pressure 170/76 09/13/2021 6:24 PM CDT Pulse - - Temperature - - Respiratory Rate - - Oxygen Saturation - - Inhaled Oxygen Concentration - - Weight 99.6 kg (219 lb 9.6 oz) 09/13/2021 8:56 A M CDT Height 165.1 cm (5' 5 ) 09/13/2021 8:56 AM CDT Body Mass Index 36.54 09/13/2021 8:56 AM CDT documented in this encounter Patient Instructions * Patient Instructions* Marialuisa Tyson NP - 09/13/2021 8:30 AM CDT Thanks for coming in today. I am thankful you have trusted me with your care, and hope that you received EXCELLENT care today! Please do not hesitate to call if you have any questions or concerns at [phone]. You may receive a phone call or text asking about your care today. I would love to hear your input and again, hope your visit was as EXCELLENT as possible, even if you were not feeling your best! Medications: Please take medications as prescribed. Continue on omnipod insulin delivery system Monitoring: Check blood sugar continuously with DExcom [...] than once per week. See the Dietitian, Drum Maker . Call Centralized Scheduling at [phone] to make an appointment. Exercise: Try moving [...] Last Filled Start Date End Date semaglutide (OZEMPIC) 2 mg/dose (8 mg/3 mL) pen injector injectionIndicatio ns:type 2 diabetes mellitus Inject 2 mg under the skin every 7 days e11.65 9 mL 3 09/13/2021 09/26/2021 documented in this encounter Progress Notes * Marialuisa Tyson NP - 09/13/2021 8:30 AM CDT Images from the original note were not included. Subjective/Objective Patient ID: Sandy Lopez is a 56 y.o. female. Chief Complaint Diabetes Type 2 Today visit is a follow up visit. She has Type 2 Diabetes. Her weight has increased by 3lbs since her last office visit. She reports a rash to her upper right hip which started last Friday. It does not hurt or itch and it is not getting worse. She reports feeling off but not really bad. She had chicken pox as a child. She lost her job and is taking some time off to regroup. She does not exercisesbut stays active with family and friends. 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 She eats 2-3 meals/day. She monitors blood sugar by wearing the DexCom 6 sensor. The Dexcom 6 was downloaded and reviewed. She denies hypoglycemia. Her weight has increased by 3lbs since her last office visit. Today's visit is to [facility] and discuss future plan. ?? Diabetes regimen: Omnipod - continue 0000-2.25, 0400-2.45 ic-6, isf-20. Increase Ozemic 2mg weekly Allergies Allergen Reactions ??? Codeine Vomiting ??? Ibuprofen Other (See comments) Current Outpatient Medications Medication Sig Dispense Refill ??? aspirin 81 mg enteric coated tablet Take 81 mg by mouth daily ??? atorvastatin (LIPITOR) 80 mg tablet TAKE 1 TABLET BY MOUTH DAILY 28 tablet 2 ??? blood-glucose meter kit Use daily or as directed for monitoring of diabetes 1 each 0 ??? cetirizine (ZyrTEC) 10 mg tablet Take 10 mg by mouth daily ??? citalopram (CeleXA) 40 mg tablet Take 20 mg by mouth daily ??? clopidogreL (PLAVIX) 75 mg tablet Take 75 mg by mouth daily ??? Dexcom G6 Engineering Technologist misc USE TO TEST BLOOD SUGAR DIRECTED 1 each 1 ??? Dexcom G6 Sensor device USE TO TEST BLOOD SUGAR DIRECTED 3 each 5 ??? Dexcom G6 Transmitter device USE TO TEST BLOOD SUGAR TWICE A DAY 1 each 3 ??? estradioL (ESTRACE) 0.5 mg tablet Take 0.5 mg by mouth daily ??? ezetimibe (ZETIA) 10 mg tablet TAKE 1 TABLET BY MOUTH DAILY 28 tablet 0 ??? famotidine (PEPCID) 20 mg tablet ??? fexofenadine (ADELA) 180 mg tablet Take 180 mg by mouth daily ??? insulin pump cart,cont inf,BT (Omnipod Dash Insulin Pod) cartridge Change omnipod dash every 48hrs. e11.65 45 each 3 ??? insulin syringe-needle U-100 1 mL 31 gauge x 5/16 syringe Twice a day ??? losartan (COZAAR) 50 mg tablet ??? metFORMIN (GLUCOPHAGE) 1,000 mg tablet TAKE 1 TABLET BY MOUTH TWICE A DAY WITH FOOD 180 tablet 3 ??? norethindrone (AYGESTIN) 5 mg tablet Take 5 mg by mouth daily ??? pediatric multivitamin-iron tablet,chewable Take by mouth ??? propranoloL (INDERAL) 20 mg tablet propranolol 20 mg tablet ??? SUMAtriptan (IMITREX) 50 mg tablet once as needed ??? zolpidem (AMBIEN) 10 mg tablet Take 10 mg by mouth nightly as needed ??? insulin aspart (NovoLOG) 100 unit/mL vial for injection USE PER INSULIN PUMP MAX OF 150 UNITS DAILY DIRECTED 50 mL 5 ??? semaglutide (OZEMPIC) 2 mg/dose (8 mg/3 mL) pen injector injection Inject 2 mg under the skin every 7 days e11.65 9 mL 3 No current facility-administered medications for this visit. Past Medical History: Diagnosis Date ??? Uncontrolled type 2 diabetes mellitus with hyperglycemia, with long-term current use of insulin([facility]) 04/03/2017 Social History Tobacco Use ??? Smoking status: Current Every Day Smoker Last attempt to quit: 03/20/2020 Years since quittin.2 ??? Smokeless tobacco: Never Used Substance Use Topics ??? Alcohol use: Not on file History reviewed. No pertinent family history. Lab Results Component Value Date HGBA1C 7.7 09/13/2021 HGBA1C 7.8 06/01/2021 HGBA1C 8.2 12/01/2020 HGBA1C 8.3 08/18/2020 HGBA1C 8.4 05/12/2020 HGBA1C 7.5 02/11/2020 Chemistry Lab Results Component Value Date SODIUM 139 07/13/2021 POTASSIUM 4.9 07/13/2021 CHLORIDE 104 07/13/2021 CO2 25 07/13/2021 ANIONGAP 10 07/13/2021 BUNSER 11 07/13/2021 CREATININE 0.93 07/13/2021 GLUCOSE 163 07/13/2021 CALCIUM 9.4 07/13/2021 BILITOT 0.2 07/13/2021 ALBUMIN 3.9 07/13/2021 GFRNAA 73 07/13/2021 ALKPHOS 72 07/13/2021 AST 35 07/13/2021 ALT 29 07/13/2021 PHOS 3.4 06/09/2020 Lab Results Component Value Date CHOL 148 07/13/2021 TRIG 342 (H) 07/13/2021 HDL 28 (L) 07/13/2021 LDLCALC 52 07/13/2021 Lab Results Component Value Date TSH 0.96 07/13/2021 TSH 1.56 06/09/2020 Review of Systems Constitutional: [...] Negative for arthralgias and neck pain. Skin: Positive for rash (right upper hip). Neurological: Negative for dizziness, weakness and numbness. [...] hyperglycemia, with long-term current use of insulin ([facility]) ([facility]) (Primary) Assessment & Plan: This is a chronic condition which is??slightly??improving hyperglycemia, not at goal. ?? Personally reviewed A1c today-7.8% Not at ??goal less than 7% Medication- Continue Omnipod pump?? Increase Ozempic 2mg weekly- to promote weight loss Monitor blood sugar??continuously with DexCom 6 sensor. ?? Encouraged annual eye exam. ??last dilated eye exam was [facility]? Monofilament foot exam completed, protective senses intact [...] and she has an appt tomorrow for followup. Discussed microalbuminurea, hypertension, uncontrolled diabetes and the effects on the kidney. Personally reviewed LDL -52, currently on??atorvastatin 80mg daily.?? No history of macrovascular disease - CVA, SD.? Dexcom downloaded for??08/31/21 to 09/13/21 This device was placed for monitor and treatment of blood sugar. Interpretation of data- improved Hyperglycemia with weight loss. In target 76% of time. Orders: - POCT glucose - POCT hemoglobin A1c Type 2 diabetes mellitus with microalbuminuria, with long-term current use of insulin ([facility]) ([facility]) Assessment & Plan: This is [...] ??encouraged to follow up with Dr. Bhagat Herpes zoster without complication Assessment & Plan: This is a new problem which began 7 days ago Encouraged shingle vaccine. Outbreak is too old to treat with antivirals Hyperlipidemia associated with type 2 diabetes mellitus (HCC) Primary hypertension Assessment & Plan: This is a chronic condition which is not at goalGoal is <140/90 Personally reviewed labs. Continue on propanolol. Avoid caffeine, caffeine will raise blood pressure and excessive alcohol consumption. Monitor your weight and B/P. Encouraged to take medications as prescribed. Insulin pump in place Assessment & Plan: This is a chronic condition which is slightly improved but not at goal. ?? Download reviewed. Type of insulin pump-Omnipod insulin delivery system with DexCom 6 sensor Basal?? 0000-2.25??0400-2.45 IC??-6 ISF-20?? Active insulin time 4hrs. TARGET GLUCOSE?110-120 Avg BG?143 Total daily dose of insulin-109units Bolus- 51 units (47%) Basal- 58 units (53%) Cigarette smoker Assessment & Plan: This is a chronic problem which has improved. She has stopped smoking about 1 to 1.5 months ago. Encouraged not to restart smoking. Morbid (severe) obesity due to excess calories (HCC) Assessment & Plan: This is a chronic condition which is worsening. Weight increased by 3 lbs since last office visit Increased ozempic to promote weight loss. Other orders - semaglutide (OZEMPIC) 2 mg/dose (8 mg/3 mL) pen injector injection; Inject 2 mg under the skin every 7 days e11.65 Discussed and educated on eating a healthy [...] Follow up 3 months Marialuisa Tyson NP documented in this encounter Miscellaneous Notes * Assessment & Plan Note - Marialuisa Tyson NP - 09/13/2021 6:48 PM CDTAssociated Problem(s): Class 1 obesity due to excess calories with serious comorbidity and body mass index (BMI) of 33.0 to 33.9 in adult This is a chronic condition which is worsening. Weight increased by 3 lbs since last office visit Increased ozempic to promote weight loss. * Assessment & Plan Note - Marialuisa Tyson NP - 09/13/2021 6:45 PM CDTAssociated Problem(s): Hypertension associated with type 2 diabetes mellitus (HCC) This is a chronic condition which is not at goalGoal is <140/90 Personally reviewed labs. Continue on propanolol. Avoid caffeine, caffeine will raise blood pressure and excessive alcohol consumption. Monitor your weight and B/P. Encouraged to take medications as prescribed. * Assessment & Plan Note - Marialuisa Tyson NP - 09/13/2021 6:39 PM CDTAssociated Problem(s): Type 2 diabetes mellitus [...] ??encouraged to follow up with Dr. Bhagat * Assessment & Plan Note - Marialuisa Tyson NP - 09/13/2021 6:34 PM CDTAssociated Problem(s): Herpes zoster without complication This is a new problem which began 7 days ago Encouraged shingle vaccine. Outbreak is too old to treat with antivirals * Assessment & Plan Note - Marialuisa Tyson NP - 09/13/2021 6:32 PM CDTAssociated Problem(s): Cigarette smoker This is a chronic problem which has improved. She has stopped smoking about 1 to 1.5 months ago. Encouraged not to restart smoking. * Assessment & Plan Note - Marialuisa Tyson NP - 09/13/2021 8:56 AM CDTAssociated Problem(s): Omnipod Dash Insulin pump in place This is a chronic condition which is slightly improved but not at goal. ?? Download reviewed. Type of insulin pump-Omnipod insulin delivery system with DexCom 6 sensor Basal?? 0000-2.25??0400-2.45 IC??-6 ISF-20?? Active insulin time 4hrs. TARGET GLUCOSE?110-120 Avg BG?143 Total daily dose of insulin-109units Bolus- 51 units (47%) Basal- 58 units (53%) * Assessment & Plan Note - Marialuisa Tyson NP - 09/13/2021 8:56 AM CDTAssociated Problem(s): Type 2 diabetes mellitus with diabetic peripheral angiopathy without gangrene, with long-term current use of insulin ([facility]) ([facility]) (Deleted) This is a chronic condition which is??slightly??improving hyperglycemia, not at goal. ?? Personally reviewed A1c today-7.8% Not at ??goal less than 7% Medication- Continue Omnipod pump?? Increase Ozempic 2mg weekly- to promote weight loss Monitor blood sugar??continuously with DexCom 6 sensor. ?? Encouraged annual eye exam. ??last dilated eye exam was [facility]? Monofilament foot exam completed, protective [...] and she has an appt tomorrow for followup. Discussed microalbuminurea, hypertension, uncontrolled diabetes and the effects on the kidney. Personally reviewed LDL -52, currently on??atorvastatin 80mg daily.?? No history of macrovascular disease - CVA, SD.? Dexcom downloaded for??08/31/21 to 09/13/21 This device was placed for monitor and treatment of blood sugar. Interpretation of data- improved Hyperglycemia with weight loss. In target 76% of time. * Assessment & Plan Note - Marialuisa Tyson NP - 09/13/2021 8:30 AM CDTAssociated Problem(s): Type 2 diabetes mellitus with hypoglycemia without coma, with long-term current use of insulin (HCC) >>ASSESSMENT AND PLAN FOR TYPE 2 DIABETES MELLITUS WITH DIABETIC PERIPHERAL ANGIOPATHY WITHOUT GANGRENE, WITH LONG-TERM CURRENT USE OF INSULIN ([facility]) (HCC) WRITTEN ON 09/13/2021 6:44 PM BY MARIALUISA TYSON NP This is a chronic condition which is??slightly??improving hyperglycemia, not at goal. ?? Personally reviewed A1c today-7.8% Not at ??goal less than 7% Medication- Continue Omnipod pump?? Increase Ozempic 2mg weekly- to promote weight loss Monitor blood sugar??continuously with DexCom 6 sensor. ?? Encouraged annual eye exam. ??last dilated eye exam was [facility]? Monofilament foot exam completed, protective [...] and she has an appt tomorrow for followup. Discussed microalbuminurea, hypertension, uncontrolled diabetes and the effects on the kidney. Personally reviewed LDL -52, currently on??atorvastatin 80mg daily.?? No history of macrovascular disease - CVA, SD.? Dexcom downloaded for??08/31/21 to 09/13/21 This device was placed for monitor and treatment of blood sugar. Interpretation of data- improved Hyperglycemia with weight loss. In target 76% of time. documented in this encounter Plan of Treatment Not on file documented as of this encounter Procedures Procedure Name Priority Date/Time Associated Diagnosis Comments POCT HEMOGLOBIN A1C Routine 09/13/2021 9 :08 AM CDT Type 2 diabetes mellitus with hyperglycemia, with long-term current use of insulin ([facility]) ([facility]) POCT GLUCOSE Routine 09/13/2021 8:57 AM CDT Type 2 diabetes mellitus with hyperglycemia, with long-term current use of insulin ([facility]) ([facility]) documented in this encounter Results * POCT hemoglobin A1c (09/13/2021 9:08 AM CDT) Hemoglobin A1C, POC 7.7 Blood specimen (specimen) 09/13/2021 9:08 AM CDT us Marialuisa Tyson NP POINT OF CARE TEST ORDERABLES F inal Result * POCT glucose (09/13/2021 8:57 AM CDT) Glucose Blood, POC 157 mg/dL Blood specimen (specimen) 09/13/2021 8:57 AM CDT us Marialuisa Tyson NP POINT OF CARE TEST ORDERABLES F inal Result documented in this encounter Visit Diagnoses Diagnosis Type 2 diabetes mellitus with hyperglycemia, with long-term current use of insulin ([facility])- Primary Type 2 diabetes mellitus with microalbuminuria, with long-term current use of insulin ([facility]) Herpes zoster without complication Hyperlipidemia associated with type 2 diabetes mellitus ([facility]) Primary hypertension Unspecified essential hypertension Insulin pump in place Insulin pump status Cigarette smoker Tobacco use disorder Morbid (severe) obesity due to excess calories ([facility]) documented in this encounter Discontinued Medications Medication Sig Discontinue Reason Start Date End Da te losartan (COZAAR) 25 mg tablet TAKE 1 TABLET BY MOUTH DAILY 01/05/2021 09/13/2021 meclizine (ANTIVERT) 25 mg tablet Take 1 tablet by mouth 03/06/2021 09/13/2021 semaglutide (Ozempic) 1 mg/dose (2 mg/1.5 mL) pen injector injectionIndications:typ e 2 diabetes mellitus Inject 1 mg under the skin every 7 days Therapy completed 08/18/2020 09/13/2021 documented as of this encounter Historical Medications * This list may reflect changes made after this encounter. losartan (COZAAR) 50 mg tablet 08/16/2021 12/28/2021 meclizine (ANTIVERT) 25 mg tablet Take 1 tablet by mouth 03/06/2021 09/13/2021 added in this encounter Care Teams Men'S Locker Room Attendant Relationship Specialty Start Date End Date Eron Holliday NP [address] [facility] [place] [address] PCP - General 06/28/21 05/08/22 documented as of this encounter
--- OUTSIDE RECORDS SUMMARY | 2024-03-03 15:37 | XMS_ITS | Encounter Summary ---
Author Organization [facility] Address [address] [place] [address] Care Team Providers Care Commercial Art Instructor Name Role Phone Vilma Herrera Primary Care Provider [phone] Encounter Details Date Type Department Care Team (Late st Contact Info) Description 04/11/2020 Telephone [facility] of [address] [place] [address] Lorne Mcginnis MD [address] [place] [address] [address] [place] [address] Social History Tobacco Use Types Packs/Day Years Used Date Smoking Tobacco: Every Day Smokeless Tobacco: Never Comments Unknown Sex and Gender Information Value Date Recorded Sex Assigned at Not on file 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 Fax sent to scanning. BILITY COORDINATOR * Telephone Encounter - July Berrye Funk - 04/12/2020 8:34 AM CST PA submitted online. I will let you know once I get a response from her ins. BILITY COORDINATOR BILITY COORDINATOR * Telephone Encounter - Marialuisa Daniel NP - 04/11/2020 3:48 PM CST Hi Jailyn, I received a message from the [employer] stating her insurance will no longer cover Trajenta. Trajenta does not require dose adjustment for kidney failure while the other drugs in that category do. She has kidney failure. Can we prior auth this so she can keep taking it? Torito Elam BILITY COORDINATOR * Telephone Encounter - Marialuisa Daniel NP - 04/11/2020 1:19 PM CST Returned call to patient. She will upload pump tonight. I will review tomorrow and we will adjust settings. She has not smoked for 43 days. This has caused an increase in appetite. She reports a 5lbsweight gain. BILITY COORDINATOR * Telephone Encounter - Allyssa Avina MA - 04/11/2020 12:52 PM CST Please advise, thank you BILITY COORDINATOR * Telephone Encounter - Armida Saeed - 04/11/2020 12:29 PM CST Marialuisa - Pt called to say that since she started the Trulicity her blood sugars are running higher. The pt also stopped smoking and she's eating more. She says that she was taken off of Ozempic and puton Trulicity and she doesn't think it's working well. 04/06/20 Fasting 5:18 am 221 8:35 am 170 1:58 pm 247 9:18pm 309 04/07/20 Fasting 1:29am 113 7:28am 147 12:48pm 172 6:44pm 325 8:49 pm 313 11:08pm 238 04/08/20 Fasting 2:56am 249 8:18am 151 12:50 am 171 5:31 pm 176 7:11pm 214 11:29pm 219 04/09/20 Fasting 8:27am 150 1:251pm 217 4:35 pm 193 04/10/20 5:24 am 204 2:32pm 365 4:14 pm 303 6:33 pm 276 04/11/20 - 5:24 am today 204 Please advise. [facility] BILITY COORDINATOR documented in this encounter Plan of Treatment Not on file documented as of this encounter Visit Diagnoses Not on filedocumented in this encounter Care Teams Commercial Art Instructor Relationship Specialty Start Date End Date Vilma Herrera PA [address] [place] [id number] PCP - General Physician Cloth Folder Hand 08/19/19 07/06/20 documented as of this encounter
--- OUTSIDE RECORDS SUMMARY | 2024-03-03 15:37 | XMS_ITS | Encounter Summary ---
Author Organization [facility] Address [address] [place] [address] Care Team Providers Care Puttying And Calking Supervisor Name Role Phone Eron Holliday NP Primary Care Provider [phone]- [phone] Reason for Visit * Reason Comments Diabetes Type 2 Encounter Details Date Type Department Care Team (Late st Contact Info) Description 12/28/2021 2:00 PM CDT Office Visit [facility] Diabetes Endocrine Care of [address] [place] [address] Marialuisa Tyson, CHRISTOPHER [address] [facility] [address] [place] [address] Type 2 diabetes mellitus with diabetic peripheral angiopathy without gangrene, with long-term current use of insulin (CMS/[facility]) ([facility]) (Primary Dx); Type 2 diabetes mellitus with microalbuminuria, with long-term current use of insulin (CMS/[facility]) (HCC); Primary hypertension; Insulin pump titration Social History Tobacco Use Types Packs/Day Years Used Date Smoking Tobacco: Former Cigarettes Q uit: 03/20/2020 Smokeless Tobacco: Never Tobacco Cessation:Counseling Given: Not Answered Comments No Sex and Gender Information Value Date Recorded Sex Assigned at Not on file Legal Sex Female 8:53 AM OCEAN EXPORT COORDINATOR Gender Identity Female 12/26/2023 10:11 PM CDT Sexual Orientation Straight 12/26/2023 10 :11 PM CDT documented as of this encounter Last Filed Vital Signs Vital Sign Reading Time Taken Comments Blood Pressure 150/72 12/28/2021 2:17 PM CDT Pulse - - Temperature - - Respiratory Rate - - Oxygen Saturation - - Inhaled Oxygen Concentration - - Weight 96.9 kg (213 lb 9.6 oz) 12/28/2021 2:17 P M CDT Height 165.1 cm (5' 5 ) 12/28/2021 2:17 PM CDT Body Mass Index 35.54 12/28/2021 2:17 PM CDT documented in this encounter Patient Instructions * Patient Instructions* Marialuisa Tyson, SPINDLE SETTER - 12/28/2021 2:00 PM CDT Thanks for coming in today. I am thankful you have trusted me with your care, and hope that you received EXCELLENT care today! Please do not hesitate to call if you have any questions or concerns at [phone]. You may receive a phone call or text asking about your care today. I would love to hear your input and again, hope your visit was as EXCELLENT as possible, even if you were not feeling your best! Medications: Please take medications as prescribed. Continue on omnipod insulin delivery system Continue trulicity and metformin Monitoring: Check blood sugar continuously with DExcom [...] than once per week. See the Dietitian, Wrapping Machine Operator . Call Centralized Scheduling at [phone] to make an appointment. Exercise: Try moving [...] Progress Notes * Marialuisa Tyson NP - 12/28/2021 2:00 PM CDT Images from the original note [...] per the Omnipod insulin de livery system. Her omnipod pdm is broken and she has a replacement that needs programing today. HerDexcom 6 was downloaded and reviewed. She denies hypoglycemia. Her weight has decreased by 6lbs since her last office visit. Today's visit is to review labs and discuss future plan. Diabetes regimen: Omnipod - continue 0000-2.25, 0400-2.45 ic-6, isf-20. A!-3 continue Trulicity 3mgweekly. Metformin 1000mg twice a day. Subjective/Objective Review of Systems Constitutional: Positive for [...] Labs: Lab Results Component Value Date HGBA1C 6.5 12/28/2021 HGBA1C 7.7 09/13/2021 HGBA1C 7.8 06/01/2021 HGBA1C 8.2 12/01/2020 HGBA1C 8.3 08/18/2020 HGBA1C 8.4 05/12/2020 Chemistry Lab Results Component Value Date SODIUM 141 09/19/2021 POTASSIUM 4.4 09/19/2021 CHLORIDE 103 09/19/2021 CO2 29 09/19/2021 ANIONGAP 9 09/19/2021 BUNSER 11 09/19/2021 CREATININE 1.00 09/19/2021 GLUCOSE 130 09/19/2021 CALCIUM 9.7 09/19/2021 BILITOT 0.2 07/13/2021 ALBUMIN 4.2 09/19/2021 GFRNAA 67 09/19/2021 ALKPHOS 72 07/13/2021 AST 35 07/13/2021 ALT 29 07/13/2021 PHOS 3.3 09/19/2021 Latest Reference Range & Units 09/19/21 13:40 Protein, ur, quant mg/dL >600.0 Creatinine Ur mg/dL 172.2 Protein/creatinine ratio 0.0 - 180.0 mg/g CR >3,484.3 (H) (H): Data is abnormally high Lab Results Component Value Date CHOL 148 07/13/2021 HDL 28 (L) 07/13/2021 LDLCALC 52 07/13/2021 TRIG 342 (H) 07/13/2021 Lab Results Component Value Date TSH 0.96 07/13/2021 TSH 1.56 06/09/2020 Assessment/Plan Diagnoses and all orders for this visit: Type 2 diabetes mellitus with diabetic peripheral angiopathy without gangrene, with long-term current use of insulin ([facility]) ([facility] [...] at goal <30 Continue losartan. Personally reviewed [facility] GFR- 67 Kidney function- abnormal B/P today- not at goal. Goal is <140/90 continue losartan Personally reviewed lipid panel. at Goal of less than 70. Continue atorvastatin and zetia. Type 2 diabetes mellitus with microalbuminuria, with long-term current use of insulin ([facility]) ([facility]) Assessment & Plan: This is a chronic [...] - POCT glucose - POCT hemoglobin A1c Primary hypertension Assessment & Plan: This is a chronic condition which is not at goal Personally reviewed labs. Continue losartan Encouraged to void caffeine and excessive alcohol consumption as this will elevate B/P Encouraged to monitor weight and B/P at home Encouraged to take medications as prescribed. Insulin pump titration Assessment & Plan: This is a chronic condition which is at goal. Pump has been off due to pdm failure. Type of insulin pump-Omnipod insulin delivery system with DexCom 6 sensor Basal 0000-2.25 0400-2.45 IC -6 ISF-20 Active insulin time 3hrs. TARGET GLUCOSE 110-120 Avg BG 160 Continuous glucose monitor (cgm) applied from 12/15/2021 to 12/28/2021 This device was placed for monitor and treatment of blood sugar. Interpretation of data- In target 74% of the time without hypoglycemia. New omnipod pdm reprogrammed. Discussed and educated on eating a healthy [...] medications. Return in about 3 months (around 03/30/2022). Marialuisa Tyson NP documented in this encounter Miscellaneous Notes * Assessment & Plan Note - Marialuisa Tyson NP - 12/28/2021 2:57 PM CDTAssociated Problem(s): Omnipod Dash Insulin pump [...] time without hypoglycemia. New omnipod pdm reprogrammed. * Assessment & Plan Note - Marialuisa Tyson NP - 12/28/2021 2:56 PM CDTAssociated Problem(s): Hypertension associated with type 2 diabetes mellitus (HCC) This is a chronic condition which is not at goal Personally reviewed labs. Continue losartan Encouraged to void caffeine and excessive alcohol consumption as this will elevate B/P Encouraged to monitor weight and B/P at home Encouraged to take medications as prescribed. * Assessment & Plan Note - Marialuisa Tyson NP - 12/28/2021 2:20 PM CDTAssociated Problem(s): Type 2 diabetes mellitus with diabetic peripheral angiopathy without gangrene, with long-term current use of insulin ([facility]) (HCC) (Deleted) [...] less than 70. Continue atorvastatin and zetia. * Assessment & Plan Note - Marialuisa Tyson NP - 12/28/2021 2:20 PM CDTAssociated Problem(s): Type 2 diabetes mellitus with microalbuminuria, with long-term current use of insulin ([facility]) This is a chronic condition which is worsening and not at goal. urine microalbumin/creatinine ratio -??worsening. Latest Reference Range & Units 07/13/21 08:13 Albumin, Ur mg/L 5,983.8 Creatinine Ur mg/dL 194.6 Albumin Creatinine Ratio, Ur 1 - 29 mg/g 3,075 (H) (H): Data is abnormally high?? Continue on Losartan 25 mg daily/ HCTZ, ?goal <[address] Bhagat for nephrology * Assessment & Plan Note - Marialuisa Tyson NP - 12/28/2021 2:00 PM CDTAssociated Problem(s): Type 2 diabetes mellitus with hypoglycemia without coma, with long-term current use of insulin ([facility]) >>ASSESSMENT AND PLAN FOR TYPE 2 DIABETES MELLITUS WITH DIABETIC PERIPHERAL ANGIOPATHY WITHOUT GANGRENE, WITH LONG-TERM CURRENT USE OF INSULIN ([facility]) (HCC) WRITTEN ON 12/28/2021 2:43 PM BY MARIALUISA TYSON NP This is [...] Associated Diagnosis Comments POCT HEMOGLOBIN A1C Routine 12/28/2021 2 :24 PM CDT Type 2 diabetes mellitus with microalbuminuria, with long-term current use of insulin ([facility]) ([facility]) POCT GLUCOSE Routine 12/28/2021 2:19 PM CDT Type 2 diabetes mellitus with microalbuminuria, with long-term current use of insulin ([facility]) ([facility]) documented in this encounter Results * POCT hemoglobin A1c (12/28/2021 2:24 PM CDT) Hemoglobin A1C, POC 6.5 Blood 12/28/2021 2:24 PM CDT us Marialuisa Tyson NP POINT OF CARE TEST ORDERABLES F inal Result * POCT glucose (12/28/2021 2:19 PM CDT) Glucose Blood, POC 141 mg/dL Blood 12/28/2021 2:19 PM CDT us Marialuisa Tyson NP POINT OF CARE TEST ORDERABLES F inal Result documented in this encounter Visit Diagnoses Diagnosis Type 2 diabetes mellitus with diabetic peripheral angiopathy without gangrene, with long-term current use of insulin ([facility])- Primary Type 2 diabetes mellitus with microalbuminuria, with long-term current use of insulin ([facility]) Primary hypertension Unspecified essential hypertension Insulin pump titration Fitting and adjustment of insulin pump documented in this encounter Discontinued Medications Medication Sig Discontinue Reason Start Date End Da te losartan (COZAAR) 50 mg tablet 08/16/2021 12/28/2021 citalopram (CeleXA) 40 mg tablet Take 20 mg by mouth daily 12/28/2021 norethindrone (AYGESTIN) 5 mg tablet Take 5 mg by mouth daily 04/12/2018 12/28/2021 meclizine (ANTIVERT) 25 mg tablet 12/05/2021 12/28/2021 fexofenadine (ADELA) 180 mg tablet Take 180 mg by mouth daily 12/28/2021 documented as of this encounter Historical Medications * This list may reflect changes made after this encounter. citalopram (CeleXA) 20 mg tablet Take 1.5 tablets (30 mg total) by mouth every morning 12/17/2021 losartan (COZAAR) 100 mg tablet 12/17/2021 04/15/2022 medroxyPROGESTERo ne (PROVERA) 5 mg tablet 12/17/2021 09/22/2023 meclizine (ANTIVERT) 25 mg tablet 12/05/2021 12/28/2021 busPIRone (BUSPAR) 5 mg tablet Take 1 tablet (5 mg total) by mouth 2 (two) times a day 12/17/2021 11/20/2023 added in this encounter Care Teams Puttying And Calking Supervisor Relationship Specialty Start Date End Date Eron Holliday NP [address] [facility] [place] [address] PCP - General 06/28/21 05/08/22 documented as of this encounter
--- OUTSIDE RECORDS SUMMARY | 2024-03-03 15:37 | XMS_ITS | Encounter Summary ---
Author Organization [facility] Address [address] [place] [address] Care Team Providers Care Airport Operations Duty Manager Name Role Phone Eron Holliday NP Primary Care Provider +1- [phone] Reason for Visit * Reason Onset Date Comments PA for Novolog, OZempic, Dexcom & Omnipod 2021 Encounter Details Date Type Department Care Team (Late st Contact Info) Description 09/25/2021 Telephone [facility] Diabetes Endocrine Care of [address] [place] [address] Marialuisa Daniel NP [address] [address] PA for Novolog, OZempic, Dexcom & Omnipod Social History Tobacco Use Types Packs/Day Years Used Date Smoking Tobacco: Former Cigarettes Q uit: 03/20/2020 Smokeless Tobacco: Never Comments No Sex and Gender Information Value Date Recorded Sex Assigned at Not on file Legal Sex Female 8:53 AM SUPERVISOR HYDROCHLORIC AREA Gender Identity Female 12/26/2023 10:11 PM CDT Sexual Orientation Straight 12/26/2023 10 :11 PM CDT documented as of this encounter Miscellaneous Notes * Telephone Encounter - Ginny Molina MA - 09/25/2021 8:36 AM CDT Received approval for Dexcom transmitter and sensors. Approval faxed to [facility]. Patientnotified. * Telephone Encounter - Ginny Molina MA - 09/25/2021 7:44 AM CDT PA initiated through [employer] for Novolog, OZempic, Dexcom system and Omnipod. documented in this encounter Plan of Treatment Not on file documented as of this encounter Visit Diagnoses Not on filedocumented in this encounter Care Teams Airport Operations Duty Manager Relationship Specialty Start Date End Date Eron Holliday NP [address] [facility] [place] [address] PCP - General 06/28/21 05/08/22 documented as of this encounter
--- OUTSIDE RECORDS SUMMARY | 2024-03-03 15:37 | XMS_ITS | Encounter Summary ---
Author Organization [facility] Address [address] [place] [address] Care Team Providers Care Environmental Compliance Officer Name Role Phone Eron Holliday NP Primary Care Provider +1- [phone] Encounter Details Date Type Department Care Team (Late st Contact Info) Description 12/25/2021 Telephone [facility] Diabetes Endocrine Care of [address] [place] [address] Marialuisa Daniel, DATABASE MANAGER [address] [facility] [address] [place] [address] Social History Tobacco Use Types Packs/Day Years Used Date Smoking Tobacco: Former Cigarettes Q uit: 03/20/2020 Smokeless Tobacco: Never Comments No Sex and Gender Information Value Date Recorded Sex Assigned at Not on file Legal Sex Female 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 E11.65 pump has failed. 15 mL 5 12/25/2021 insulin glargine (LANTUS) 100 unit/mL (3 mL) pen for injection Inject 50 Units under the skin daily before dinner Use lantus 50 units once daily in pm for insulin pump failure. e11.65 pump has failed 15 mL 5 12/25/2021 3 documented in this encounter Miscellaneous Notes * Telephone Encounter - Ginny Molina MA - 12/26/2021 8:45 AM CDT Patient notified * Telephone Encounter - Ginny Molina MA - 12/25/2021 11:18 AM CDT Patient called stating that her PDM quit working. She called Omnipod and they are shipping her a new one. She has to inject until she receives her PDM but she is unsure of how much to inject. She also stated that she is only using fast acting insulin in her pump so she will need long acting sent [facility] if you want her to inject fast acting. Her BG was 160 up from 130 this AM. Please sendto [facility] in [place]. Please advise, thank you documented in this encounter Plan of Treatment Not on file documented as of this encounter Visit Diagnoses Not on filedocumented in this encounter Care Teams Environmental Compliance Officer Relationship Specialty Start Date End Date Eron Holliday NP [address] [place] [address] [place] [address] PCP - General 06/28/21 05/08/22 documented as of this encounter
--- OUTSIDE RECORDS SUMMARY | 2024-03-03 15:37 | XMS_ITS | Encounter Summary ---
Author Organization [facility] Address [address] [place] [address] Care Team Providers Care Muck Operator Name Role Phone Eron Holliday NP Primary Care Provider +1- [phone] Encounter Details Date Type Department Care Team (Latest Contact Info) Description 02/11/2022 8:00 AM BOAT OUTBOARD ENGINE MECHANIC - 02/11/2022 11:59 PM BOAT OUTBOARD ENGINE MECHANIC Hospital Encounter [facility] [address] [place] [address] Discharge Disposition: Discharge to home or self care Social History Tobacco Use Types Packs/Day Years Used Date Smoking Tobacco: Former Cigarettes Q uit: 03/20/2020 Smokeless Tobacco: Never Comments No Sex and Gender Information Value Date Recorded Sex Assigned at Not on file Legal Sex Female 8:53 AM BOAT OUTBOARD ENGINE MECHANIC Gender Identity Female 12/26/2023 10:11 PM [...] by mouth daily 12/05/2018 4 Dexcom G6 Inspector Packager miscIndications:T ype 2 diabetes mellitus with hyperglycemia, [...] AND REFLEX TO MICROSCOPIC AND CULTURE Routine 02/11/2022 8:00 AM BOAT OUTBOARD ENGINE MECHANIC ALBUMIN CREATININE RATIO, URINE Routine 02/11/2022 8:00 AM BOAT OUTBOARD ENGINE MECHANIC URINALYSIS, MICROSCOPIC ONLY Routine 02/11/2022 8:00 AM BOAT OUTBOARD ENGINE MECHANIC documented in this encounter Results * Urinalysis, microscopic only (02/11/2022 8:00 AM BOAT OUTBOARD ENGINE MECHANIC) WBC, ur 0-5 0 - 5 /HPF [facility] RBC, ur 0-2 0 - 2 /HPF [facility] Epithelial cells, squamous, ur 1-5 0 - 5 /HPF [facility] Hyaline casts, ur 1-5 0 - 10 /LPF [facility] Culture Reflex Comment Reflex conditions for urine culture (WBC >10) not met. [facility] Urine 02/11/2022 8:00 AM BOAT OUTBOARD ENGINE MECHANIC 02/13/2022 6:08 PM BOAT OUTBOARD ENGINE MECHANIC us Notinfile Unknown LAB URINE ORDERABLES Final Res ult OLIVIA [id number] [address] Department [place] [address] * (ABNORMAL) Albumin Creatinine Ratio, Urine (02/11/2022 8:00 AM BOAT OUTBOARD ENGINE MECHANIC) Albumin Ur 3,004.2 mg/L OLIVIA Comment: Interpretive Data No reference range established. Current interpretive data was last revised 2018. Creatinine Ur 136.5 mg/dL [facility]IA Comment: Interpretive Data No reference range established. Current interpretive data was last revised 2018. Albumin Creatinine Ratio, Ur 2,201(H) 1 - 29 mg/g [facility] Urine 02/11/2022 8:00 AM BOAT OUTBOARD ENGINE MECHANIC 02/13/2022 6:09 PM BOAT OUTBOARD ENGINE MECHANIC us Notinfile Unknown LAB URINE ORDERABLES Final Res ult Performing Organization Address [facility] Co de Phone Number OLIVIA KNAPP [phone] [place] [address] * (ABNORMAL) Urinalysis reflex to microscopic and culture Urine (02/11/2022 8:00 AM BOAT OUTBOARD ENGINE MECHANIC) Color, ur Yellow Yellow [facility] Clarity, ur Clear Clear [facility] Specific gravity, ur 1.026 1.003 - 1.030 [facility] pH, urine 6.0 [facility] Protein, ur ql 3+(A) Negative [facility] Glucose, ur ql 2+(A) Negative [facility] Ketones, ur Trace Negative [facility] Bilirubin, ur Negative Negative [facility] Blood, ur Negative Negative [facility] Urobilinogen, ur 0.2 <2.0 mg/dL [facility] Nitrite, ur Negative Negative [facility] Leukocyte esterase, ur Negative Negative [facility] UA reflex comment Reflex to microscopic UA will be performed. [facility] Urine 02/11/2022 8:00 AM BOAT OUTBOARD ENGINE MECHANIC 02/13/2022 6:08 PM BOAT OUTBOARD ENGINE MECHANIC Narrative [facility] - 02/13/2022 7:24 PM BOAT OUTBOARD ENGINE MECHANIC ?? Urine pH is affected by diet, medications, systemic acid-base disturbances, and renal tubular function. ??pH may affect urinary stone formation. ??For example, urine pH below 6.0 may help reduce the tendency for calcium phosphate stones and pH greater than 6.0 may reduce the tendency for uric acid stone formation. Source: [facility]. Last revised 03-06-2017 us Notinfile Unknown LAB MICROBIOLOGY - GENERAL ORD ERABLES Final Result Performing Organization Address [facility] Co de Phone Number OLIVIA KNAPP [address] [address] [place] [address] documented in this encounter Visit Diagnoses Not on filedocumented in this encounter Care Teams Muck Operator Relationship Specialty Start Date End Date Eron Holliday NP [address] [place], [place] [id number] PCP - General 06/28/21 05/08/22 documented as of this encounter
--- OUTSIDE RECORDS SUMMARY | 2024-03-03 15:37 | XMS_ITS | Encounter Summary ---
Author Organization [facility] Address [address] [place] [address] Care Team Providers Care Sole Cementer Name Role Phone [place] Herrera Primary Care Provider [phone] Encounter Details Date Type Department Care Team (Late st Contact Info) Description 03/10/2020 Telephone Diabetes and Endocrine Care of [address] [place] [address] Marialuisa Daniel, HOGSHEAD BUILDER [address] [address] Social History Tobacco Use Types Packs/Day Years Used Date Smoking Tobacco: Every Day Smokeless Tobacco: Never Comments Unknown Sex and Gender Information Value Date Recorded Sex Assigned at Not on file Legal Sex Female 8:53 AM ANDROID IOS DEVELOPER Gender Identity Female 12/26/2023 10:11 PM CDT Sexual Orientation Straight 12/26/2023 10 :11 PM CDT documented as of this encounter Ordered Prescriptions Prescription Sig Dispense Quantity Refills Last Filled Start Date End Date dulaglutide (Trulicity) 3 mg/0.5 mL pen injectorIndication s:type 2 diabetes mellitus Inject 0.5 mL (3 mg total) under the skin every 7 days 2 mL 5 03/10/2020 08/18/2020 documented in this encounter Miscellaneous Notes * Telephone Encounter - Marialuisa Daniel NP - 03/10/2020 9:12 AM CST Called patient to see if she is having any symptoms on Trulicity 1.5mg. She is not. Will increase to Trulcity 3mg weekly. OID IOS DEVELOPER documented in this encounter Plan of Treatment Not on file documented as of this encounter Visit Diagnoses Not on filedocumented in this encounter Discontinued Medications Medication Sig Discontinue Reason Start Date End Da te dulaglutide (TRULICITY) 1.5 mg/0.5 mL pen injectorIndications:Type 2 diabetes mellitus with hyperglycemia, with long-term current use of insulin (HCC) Inject 0.5 mL (1.5 mg total) under the skin every 7 days Dose adjustment 02/11/2020 03/10/2020 documented as of this encounter Care Teams Sole Cementer Relationship Specialty Start [place] [address] [place] [address] PCP - General Physician Road Marker 08/19/19 07/06/20 documented as of this encounter
--- OUTSIDE RECORDS SUMMARY | 2024-03-03 15:37 | XMS_ITS | Encounter Summary ---
Author Organization [facility] Healthcare Address [address] [place] [address] Care Team Providers Care Plastic Parts Fabricator Name Role Phone Eron Holliday NP Primary Care Provider [phone] Encounter Details Date Type Department Care Team (Latest Contact Info) Description 02/12/2022 8:00 AM IP/MOSAIC TECHNICIAN - 02/12/2022 11:59 PM IP/MOSAIC TECHNICIAN Hospital Encounter [facility] [address] [place] [address] Discharge Disposition: Discharge to home or self care Social History Tobacco Use Types Packs/Day Years Used Date Smoking Tobacco: Former Cigarettes Q uit: 03/20/2020 Smokeless Tobacco: Never Comments No Sex and Gender Information Value Date Recorded Sex Assigned at Not on file Legal Sex Female 8:53 AM IP/MOSAIC TECHNICIAN Gender Identity Female 12/26/2023 10:11 PM [...] by mouth daily 12/05/2018 4 Dexcom G6 Music Assistant miscIndications:T ype 2 diabetes mellitus with hyperglycemia, [...] AND REFLEX TO MICROSCOPIC AND CULTURE Routine 02/12/2022 8:00 AM IP/MOSAIC TECHNICIAN ALBUMIN CREATININE RATIO, URINE Routine 02/12/2022 8:00 AM IP/MOSAIC TECHNICIAN URINALYSIS, MICROSCOPIC ONLY Routine 02/12/2022 8:00 AM IP/MOSAIC TECHNICIAN documented in this encounter Results * (ABNORMAL) Urinalysis, microscopic only (02/12/2022 8:00 AM IP/MOSAIC TECHNICIAN) WBC, ur 0-5 0 - 5 /HPF [facility] RBC, ur 0-2 0 - 2 /HPF [facility] Epithelial cells, squamous, ur 1-5 0 - 5 /HPF [facility] Mucous, ur Present(A) [facility] Culture Reflex Comment Reflex conditions for urine culture (WBC >10) not met. [facility] Urine 02/12/2022 8:00 AM IP/MOSAIC TECHNICIAN 02/13/2022 6:15 PM IP/MOSAIC TECHNICIAN us Christophe Tan MD LAB URINE ORDERABLES Final Resu lt [facility] [id number] [address] Department of Laboratories [place], [place] [id number] * (ABNORMAL) Albumin Creatinine Ratio, Urine (02/12/2022 8:00 AM IP/MOSAIC TECHNICIAN) Albumin Ur 3,333.7 mg/L [facility] Comment: Interpretive Data No reference range established. Current interpretive data was last revised 2018. Creatinine Ur 153.9 mg/dL [facility] Comment: Interpretive Data No reference range established. Current interpretive data was last revised 2018. Albumin Creatinine Ratio, Ur 2,166(H) 1 - 29 mg/g [facility] Urine 02/12/2022 8:00 AM IP/MOSAIC TECHNICIAN 02/13/2022 6:15 PM IP/MOSAIC TECHNICIAN Christophe Tan MD LAB URINE ORDERABLES Final Resu lt Performing Organization Address [facility] Co de Phone Number [facility] [address] [address] [employer] [place] [address] * (ABNORMAL) Urinalysis reflex to microscopic and culture Urine (02/12/2022 8:00 AM IP/MOSAIC TECHNICIAN) Color, ur Yellow Yellow [facility] Clarity, ur Clear Clear [facility] Specific gravity, ur 1.023 1.003 - 1.030 [facility] pH, urine 5.5 [facility] Protein, ur ql 3+(A) Negative [facility] Glucose, ur ql Negative Negative [facility] Ketones, ur Negative Negative [facility] Bilirubin, ur Negative Negative [facility] Blood, ur Negative Negative [facility] Urobilinogen, ur 0.2 <2.0 mg/dL [facility] Nitrite, ur Negative Negative [facility] Leukocyte esterase, ur Negative Negative [facility] UA reflex comment Reflex to microscopic UA will be performed. [facility] Urine 02/12/2022 8:00 AM IP/MOSAIC TECHNICIAN 02/13/2022 6:15 PM IP/MOSAIC TECHNICIAN Narrative [facility] - 02/13/2022 7:24 PM IP/MOSAIC TECHNICIAN ?? Urine pH is affected by diet, medications, systemic acid-base disturbances, and renal tubular function. ??pH may affect urinary stone formation. ??For example, urine pH below 6.0 may help reduce the tendency for calcium phosphate stones and pH greater than 6.0 may reduce the tendency for uric acid stone formation. Source: Nayatek. Last revised 03-06-2017 Christophe Tan MD LAB MICROBIOLOGY - GENERAL ORDE RABJAMILA Final Result Performing Organization Address [facility] Co de Phone Number OL[facility]IA [address] [address] Department [place] [address] documented in this encounter Visit Diagnoses Not on filedocumented in this encounter Care Teams Plastic Parts Fabricator Relationship Specialty Start Date End Date Eron Holliday NP [address] [place] [address] [place] [address] PCP - General 06/28/21 05/08/22 documented as of this encounter
--- OUTSIDE RECORDS SUMMARY | 2024-03-03 15:37 | XMS_ITS | Encounter Summary ---
Author Organization [facility] Healthcare Address [address] [place] [address] Care Team Providers Care Outside Sales Consultant Name Role Phone Marialuisa Daniel NP Primary Care Provider [phone] Reason for Referral * Diagnostic Imaging (Routine) - Closed Specialty Diagnoses / Procedures Referred By Contac t Referred To Contact Diagnoses Chronic kidney disease, stage 2 (mild) Procedures US Kidney Complete Leobardo Bhagat MD Phone: tel: fax: [address] [address] Referral ID Status Reason Start Date Expiration Date Visits Re quested Visits Authorized [id number] Closed 06/09/2020 07/09/2021 1 1 Reason for Visit * Diagnostic Imaging (Routine) - Closed Specialty Diagnoses / Procedures Referred By Contac t Referred To Contact Diagnoses Chronic kidney disease, stage 2 (mild) Procedures US Kidney Complete Leobardo Bhagat MD Phone: tel: fax: [address] [address] Referral ID Status Reason Start Date Expiration Date Visits Re quested Visits Authorized [id number] Closed 06/09/2020 07/09/2021 1 1 Encounter Details Date Type Department Care Team (Latest Contact Info) Description 07/07/2020 9:17 AM CDT - 07/07/2020 11:59 PM CDT Hospital Encounter [facility] [address] [place] [address] Leobardo Bhagat MD 2 [facility] [address] [place] [address] Chronic kidney disease, stage 2 (mild) Discharge Disposition: Discharge to home or self care Social History Tobacco Use Types Packs/Day Years Used Date Smoking Tobacco: Every Day Smokeless Tobacco: Never Comments Unknown Sex and Gender Information Value Date Recorded Sex Assigned at Not on file Legal Sex Female 8:53 AM FIELD MARKETING TEAM LEADER Gender Identity Female 12/26/2023 10:11 PM CDT Sexual Orientation Straight 12/26/2023 10 :11 PM CDT documented as of this encounter Medications at Time of Discharge aspirin 81 mg enteric coated tablet Take 1 tablet (81 mg total) by mouth daily 12/04/2018 clopidogreL (PLAVIX) 75 mg tablet Take 1 tablet (75 mg total) by mouth daily famotidine (PEPCID) 20 mg tablet Take 1 tablet (20 mg total) by mouth 2 (two) times a day 04/25/2020 insulin syringe-needle U-100 1 mL 31 gauge x 5/16 syringe Twice a day 07/13/2018 zolpidem (AMBIEN) 10 mg tablet Take 1 tablet (10 mg total) by mouth nightly as needed atorvastatin (LIPITOR) 80 mg tablet TAKE 1 TABLET BY MOUTH DAILY 30 tablet 11 11/08/2019 09/21/19 21 Pumaaglroe Gaines U-100 Insulin 100 unit/mL (3 mL) insulin pen INJECT 38 UNITS SUBCUTANEOUSLY EVERY TWELVE HOURS 15 mL 3 10/06/2019 06/02/19 22 blood glucose diagnostic (Contour Next Test Strips) strip CHECK BLOOD SUGAR FOUR TIMES A DAY OR DIRECTED 300 each 11 12/30/2019 12/02/19 21 blood-glucose meter kitIndications:U ncontrolled type 2 diabetes mellitus with hyperglycemia, with long-term current use of insulin (HCC) Use daily or as directed for monitoring of diabetes 1 each 07/04/2017 09/22/19 24 blood-glucose meter,continuous (Dexcom G6 Electrical Controls Engineer) miscIndications: type 2 diabetes mellitus 1 Device continuously 1 each 1 01/24/2020 08/23/19 22 blood-glucose transmitter (Dexcom G6 Transmitter) deviceIndication s:type 2 diabetes mellitus 1 Device continuously USE DEVICE CONTINUOUSLY FOR 10 DAYS 1 Device 11 01/24/2020 04/27/19 22 calcium carbonate-vitami n D3 (CALTRATE 600 + D) 1500 mg (600 mg elemental) -400 units per tablet Take 1 tablet by mouth 2 (two) times a day 10/15/2018 08/20/19 21 cetirizine (ZyrTEC) 10 mg tablet Take 1 tablet (10 mg total) by mouth daily 12/05/2018 09/22/19 24 citalopram (CeleXA) 40 mg tablet Take 20 mg by mouth daily 12/29/19 22 Dexcom G6 Sensor deviceIndication s:Type 2 diabetes mellitus with hyperglycemia, with long-term current use of insulin ([facility]) USE TO TEST BLOOD SUGAR DIRECTED 3 Device 11 05/02/2020 04/02/19 22 Dexcom G6 Transmitter device USE TO TEST BLOOD SUGAR TWICE A DAY 1 Device 3 11/05/2019 04/27/19 22 dulaglutide (Trulicity) 3 mg/0.5 mL pen injectorIndicati ons:type 2 diabetes mellitus Inject 0.5 mL (3 mg total) under the skin every 7 days 2 mL 5 03/10/2020 08/19/[address] (CYMBALTA) 30 mg capsule Take 30 mg by mouth daily 08/20/19 21 estradioL (ESTRACE) 0.5 mg tablet Take 1 tablet (0.5 mg total) by mouth daily 10/11/2018 10/06/19 24 ezetimibe (ZETIA) 10 mg tablet TAKE 1 TABLET BY MOUTH DAILY 30 tablet 5 02/01/2020 07/26/19 21 hydroCHLOROthiaz ariadna (HYDRODIURIL) 12.5 mg tablet Take 12.5 mg by mouth daily. 06/02/19 22 insulin aspart U-100 (NovoLOG U-100 Insulin aspart) 100 unit/mL injectionIndicat ions:Type 2 diabetes mellitus with microalbuminuria , with long-term current use of insulin ([facility]) Infuse insulin per Medtronic insulin pump. Max daily dose 120 units. E11.65 40 mL 5 03/27/2020 08/12/19 21 lancets (ACCU-CHEK MULTICLIX LANCET) miscIndications: Uncontrolled type 2 diabetes mellitus with hyperglycemia, with long-term current use of insulin (HCC) Check blood sugar four times a day or as directed 1 each 07/04/2017 12/02/19 21 losartan (COZAAR) 25 mg tablet Take 1 tablet (25 mg total) by mouth daily 30 tablet 02/11/2020 01/06/20 21 metFORMIN (GLUCOPHAGE) 1,000 mg tablet TAKE 1 TABLET BY MOUTH TWICE A DAY WITH FOOD 60 tablet 11/08/2019 09/21/19 21 norethindrone (AYGESTIN) 5 mg tablet Take 5 mg by mouth daily 04/12/2018 12/29/19 22 pediatric multivitamin-iro n tablet,chewable Take by mouth 07/23/2018 23 pediatric multivitamin-iro n tablet,chewable Take by mouth 07/23/2018 24 semaglutide (Ozempic) 0.25 mg or 0.5 mg(2 mg/1.5 mL) pen injector injection Ozempic 0.25 mg or 0.5 mg(2 mg/1.5 mL) pen injector 09/07/2019 09/22/19 24 documented as of this encounter Discharge Disposition Disposition Code Departure Means Destination Discharge to home or self care documented in this encounter Plan of Treatment Not on file documented as of this encounter Procedures Procedure Name Priority Date/Time Associated Diagnosis Comments US KIDNEY COMPLETE Schedule Routine, Read Routine (OP Routine) 07/07/2020 9:46 AM CDT Chronic kidney disease, stage 2 (mild) documented in this encounter Results * US Kidney Complete (07/07/2020 9:46 AM CDT) Anatomical Region Laterality Modality Kidney N/A Ultrasound 07/07/2020 10:0 2 AM CDT Narrative 07/07/2020 10:03 AM CDT EXAM DESCRIPTION: ?? US KIDNEY COMPLETE REASON FOR STUDY: ?? CKD stage 2 Duration: unknown TECHNIQUE: ??Ultrasound of the kidneys and urinary bladder was performed with grayscale imaging. COMPARISON: ?? 07/07/2020 FINDINGS: RIGHT KIDNEY: The right kidney measures ??12.3 x 6.5 x 4.7 cm. ??There is no hydronephrosis. ??There is normal cortical thickness and echogenicity. LEFT KIDNEY: The left kidney measures ??12.1 x 6.5 x 5.3 cm. ??There is no hydronephrosis. ??There is normal cortical thickness and echogenicity. URINARY BLADDER: ??The urinary bladder, as visualized, appears unremarkable. OTHER: ??No other additional findings. IMPRESSION: ?? 1. ??No definite sonographic evidence of hydronephrosis. THIS IS AN ELECTRONICALLY VERIFIED FINAL REPORT 07/07/2020 10:03 AM - Electronically signed by Jacek Squires D.O. PS: PS D: ??07/07/2020 10:03 AM T: ??07/07/2020 10:03 AM Report ID: [id number] Reading Location: ??[id number] Procedure Note Jacek Squires, DO - 07/07/2020 EXAM DESCRIPTION: US KIDNEY COMPLETE REASON FOR STUDY: CKD stage 2 Duration: unknown TECHNIQUE: Ultrasound of the kidneys and urinary bladder was performedwith grayscale imaging. COMPARISON: 07/07/2020 FINDINGS: RIGHT KIDNEY: The right kidney measures 12.3 x 6.5 x 4.7 cm. There is no hydronephrosis. There is normal cortical thickness and echogenicity. LEFT KIDNEY: The left kidney measures 12.1 x 6.5 x 5.3 cm. There is no hydronephrosis. There is normal cortical thickness and echogenicity. URINARY BLADDER: The urinary bladder, as visualized, appearsunremarkable. OTHER: No other additional findings. IMPRESSION: 1. No definite sonographic evidence of hydronephrosis. THIS IS AN ELECTRONICALLY VERIFIED FINAL REPORT 07/07/2020 10:03 AM - Electronically signed by Jacek Squires D.O. PS: PS Report ID: [id number] Reading Location: [id number] us Leobardo Bhagat MD [facility] US PROCEDURES Final Resul t documented in this encounter Visit Diagnoses Diagnosis Chronic kidney disease, stage 2 (mild) documented in this encounter Care Teams Outside Sales Consultant Relationship Specialty Start Date End Date Marialuisa Daniel NP PCP - General 07/07/20 06/27/21 documented as of this encounter
--- OUTSIDE RECORDS SUMMARY | 2024-03-03 15:37 | XMS_ITS | Encounter Summary ---
Author Organization [facility] Medical Group Address [address] [place] [address] Care Team Providers Care Route Manager Name Role Phone Vilma Herrera Primary Care Provider [phone] Encounter Details Date Type Department Care Team (Late st Contact Info) Description 04/13/2020 Telephone [facility] [address] [place] [address] Vilma Herrera PA [address] [place] [address] Social History Tobacco Use Types Packs/Day Years Used Date Smoking Tobacco: Every Day Smokeless Tobacco: Never Comments Unknown Sex and Gender Information Value Date Recorded Sex Assigned at Not on file Legal Sex Female 8:53 AM MAXILLOFACIAL PROSTHETICS DENTIST Gender Identity Female 12/26/2023 10:11 PM CDT Sexual Orientation Straight 12/26/2023 10 :11 PM CDT documented as of this encounter Miscellaneous Notes * Telephone Encounter - Marialuisa Daniel NP - 04/13/2020 5:28 PM CST Returned call to patient. Increased basal Rates 0000--1.85, 0400-2.0, 1600-1.90 LLOFACIAL PROSTHETICS DENTIST * Telephone Encounter - Allyssa Avina MA - 04/13/2020 1:57 PM CST Please advise, thank you LLOFACIAL PROSTHETICS DENTIST * Telephone Encounter - Carrie Milian. - 04/13/2020 1:38 PM CST Pt states that Marialuisa was supposed to call her yesterday, and she still hasn't reard anything for her. It is regarding, her BS going up. She uploaded her readings from her insurlin pump, and Marialuisa was supposed to talk to her about adjusting the insulin pump. Please call patient today. LLOFACIAL PROSTHETICS DENTIST documented in this encounter Plan of Treatment Not on file documented as of this encounter Visit Diagnoses Not on filedocumented in this encounter Care Teams Route Manager Relationship Specialty [place] [address] [place] [address] PCP - General Physician Electrical Tryout Person 08/19/19 07/06/20 documented as of this encounter
--- OUTSIDE RECORDS SUMMARY | 2024-03-03 15:37 | XMS_ITS | Encounter Summary ---
Author Organization [facility] Healthcare Address [address] [place] [address] Care Team Providers Care Muffler Installer Name Role Phone Marialuisa Daniel NP Primary Care Provider [phone] Encounter Details Date Type Department Care Team (Late st Contact Info) Description 12/23/2020 10:55 AM CDT Lab [address] [address] Leobardo Bhagat MD [address] [place] [address] Discharge Disposition: Discharge to home or self care Social History Tobacco Use Types Packs/Day Years Used Date Smoking Tobacco: Every Day Cigarettes Last attempted to quit: 03/20/2020 Smokeless Tobacco: Never Comments Unknown Sex and Gender Information Value Date Recorded Sex Assigned at Not on file Legal Sex Female 8:53 AM RIVER RAT Gender Identity Female 12/26/2023 10:11 PM CDT Sexual Orientation Straight 12/26/2023 10 :11 PM CDT documented as of this encounter Discharge Disposition Disposition Code Departure Means Destination Discharge to home or self care documented in this encounter Plan of Treatment Not on file documented as of this encounter Procedures Procedure Name Priority Date/Time Associated Diagnosis Comments EGFR Routine 12/23/2020 10:54 AM CDT CREATININE Routine 12/23/2020 10:54 AM CDT PROTEIN, URINE, 24 HOUR RESULT Routine 12/23/2020 7:00 AM CDT VOLUME AND PERIOD, URINE, 24 HOUR Routine 12/23/2020 7:00 AM CDT CREATININE CLEARANCE, URINE, 24 HOUR RESULT Routine 12/23/2020 7:00 AM CDT documented in this encounter Results * eGFR (12/23/2020 10:54 AM CDT) eGFR 82 mL/min/1.7 3 m2 [facility] ([facility]) Comment: Interpretive Data Reference Interval Normal ?>/= 90 mL/min/1.73m2 Mildly decreased* ? 60 - 89 mL/min/1.73m2 Mildly to moderately decreased ?45 - 59 mL/min/1.73m2 Moderately to severely decreased ??30 - 44 mL/min/1.73m2 Severely decreased ?15 - 29 mL/min/1.73m2 Kidney Failure ?< 15 ??mL/min/1.73m2 *Relative to young adult level Estimated glomerular filtration rate is determined by the CKD-EPI equation recommended by the National Kidney Foundation (KDIGO 2012 Clinical Practice Guideline for the Evaluation and Management of Chronic Kidney Disease. Kidney Intnl Suppl Feb 2012;3:1). The CKD-EPI equation should not be used for patients with unstable renal function and has not been validated in children and those over 70. Current interpretive data was last reviewed 2020 Urine/Blood 12/23/2020 10:5 4 AM CDT 12/23/2020 11:51 AM CDT us Leobardo Bhagat MD LAB BLOOD ORDERABLES Final Re sult [facility] ([place]) [address] [facility] [place] [address] * Creatinine (12/23/2020 10:54 AM CDT) Creatinine 0.82 0.60 - 1.10 mg/dL [facility] ([place]) Urine/Blood 12/23/2020 10:5 4 AM CDT 12/23/2020 11:51 AM CDT us Leobardo Bhagat MD LAB BLOOD ORDERABLES Final Re sult Performing Organization Address City/[facility]/ZIP Co de Phone Number OL[facility]IA SANTOYO ([place]) [address] [facility] [place] [address] * (ABNORMAL) Protein, urine, 24 hour (12/23/2020 7:00 AM CDT) Protein, 24 hr, ur 2,160(H) 0 - 150 mg/24H [facility] ([place]) Urine/Blood 12/23/2020 7:00 AM CDT 12/23/2020 12:22 PM CDT us Leobardo Bhagat MD LAB URINE ORDERABLES Final Re sult Performing Organization Address [facility] Co de Phone Number OL[facility]IA SANTOYO ([place]) [address] [facility] [place] [address] * Volume and period, urine, 24 hour (12/23/2020 7:00 AM CDT) Volume, ur 1,600 mL CERNER AM [facility] ([place]) Period, Urine Collection 1,440 min [facility] ([place]) Urine/Blood 12/23/2020 7:00 AM CDT 12/23/2020 12:22 PM CDT us Leobardo Bhagat MD LAB URINE ORDERABLES Final Re sult [facility] ([place]) [address] [place] [address] * Creatinine clearance, urine, 24 hour (12/23/2020 7:00 AM CDT) Creatinine Clearance 125 60 - 130 mL/min [facility] ([place]) Creatinine, 24 hr, ur 1.5 0.6 - 1.5 g/24H [facility] ([place]) Urine/Blood 12/23/2020 7:00 AM CDT 12/23/2020 12:22 PM CDT us Leobardo Bhagat MD LAB URINE ORDERABLES Final Re sult [facility] ([place]) [address] [facility] [place] [address] documented in this encounter Visit Diagnoses Not on filedocumented in this encounter Care Teams Muffler Installer Relationship Specialty Start Date End Date Marialuisa Daniel NP PCP - General 07/07/20 06/27/21 documented as of this encounter
--- OUTSIDE RECORDS SUMMARY | 2024-03-03 15:37 | XMS_ITS | Encounter Summary ---
Author Organization [facility] Medical Group Address [address] [place] [address] Care Team Providers Care Windows Security Analyst Name Role Phone Marialuisa Daniel NP Primary Care Provider [phone] Encounter Details Date Type Department Care Team (Late st Contact Info) Description 08/10/2020 Telephone [facility] [address] [place] [address] [address] [place] [address] Marialuisa Daniel NP [address] [address] Social History Tobacco Use Types Packs/Day Years Used Date Smoking Tobacco: Every Day Smokeless Tobacco: Never Comments Unknown Sex and Gender Information Value Date Recorded Sex Assigned at Not on file Legal Sex Female 8:53 AM GIS WEB DEVELOPER Gender Identity Female 12/26/2023 10:11 PM CDT Sexual Orientation Straight 12/26/2023 10 :11 PM CDT documented as of this encounter Miscellaneous Notes * Telephone Encounter - Marialuisa Daniel NP - 08/11/2020 5:14 PM CDT Returned call to patient. Insulin adjusted. * Telephone Encounter - Corinna Wright MA - 08/10/2020 4:25 PM CDT I told her to call Marlin or the help line with Omnipod. (Please see message below.) Patient states she is going to need a new script for insulin because of the waste and she knows that this is going michelle an issue with insurance. * Telephone Encounter - Carrie Milian. - 08/10/2020 4:15 PM CDT Pt states that with her Omni-pod insulin pump, she has gone through 4 pods and 800 units, it is notactivating correctely, in the last 5 minutes. It is not injecting into her skin, but trying to get the pump to function properly, she has wasted 800 units of insulin. She is afraid she is going to gothrough her pumps and insulin and not have enough. Please Advise LONI !!!! documented in this encounter Plan of Treatment Not on file documented as of this encounter Visit Diagnoses Not on filedocumented in this encounter Care Teams Windows Security Analyst Relationship Specialty Start Date End Date Marialuisa Daniel NP PCP - General 07/07/20 06/27/21 documented as of this encounter
--- OUTSIDE RECORDS SUMMARY | 2024-03-03 15:37 | XMS_ITS | Encounter Summary ---
Author Organization [facility] Healthcare Address [address] [place] [address] Care Team Providers Care Black Top Roller Name Role Phone Vilma Herrera Primary Care Provider [phone] Encounter Details Date Type Department Care Team (Late st Contact Info) Description 06/09/2020 11:45 AM CDT Lab [address] Leobardo Bhagat MD [address] [place] [address] Discharge Disposition: Discharge to home or self care Social History Tobacco Use Types Packs/Day Years Used Date Smoking Tobacco: Every Day Smokeless Tobacco: Never Comments Unknown Sex and Gender Information Value Date Recorded Sex Assigned at Not on file Legal Sex Female 8:53 AM SAP CONSULTANT Gender Identity Female 12/26/2023 10:11 PM CDT Sexual Orientation Straight 12/26/2023 10 :11 PM CDT documented as of this encounter Discharge Disposition Disposition Code Departure Means Destination Discharge to home or self care documented in this encounter Plan of Treatment Not on file documented as of this encounter Procedures Procedure Name Priority Date/Time Associated Diagnosis Comments EGFR Routine 06/09/2020 11:45 AM CDT DIFFERENTIAL AUTO Routine 06/09/2020 11: 45 AM CDT URINALYSIS AND REFLEX TO MICROSCOPIC Routine 06/09/2020 11:45 AM CDT CBC WITH AUTO DIFFERENTIAL Routine 06/09/2020 11:45 AM CDT URINALYSIS, MICROSCOPIC ONLY Routine 06/09/2020 11:45 AM CDT ERYTHROCYTE SEDIMENTATION RATE Routine 06/09/2020 11:45 AM CDT TSH Routine 06/09/2020 11:45 AM CDT PTH Routine 06/09/2020 11:45 AM CDT RENAL FUNCTION PANEL Routine 06/09/2020 11:45 AM CDT documented in this encounter Results * eGFR (06/09/2020 11:45 AM CDT) eGFR 69 mL/min/1.7 3 m2 OLIVIA SANTOYO (SURESH) Comment: [...] Current interpretive data was last reviewed 2020 Blood specimen (specimen) 06/09/2020 11:45 AM CDT 06/09/2020 1:15 PM CDT Leobardo Bhagat MD LAB BLOOD ORDERABLES Final Re sult Performing Organization Address [facility] Co de Phone Number OLIVIA [facility] (IRA) 1 [facility] [place] [address] * (ABNORMAL) Urinalysis, microscopic only (06/09/2020 11:45 AM CDT) WBC, ur 6-10(A) 0 - 5 /HPF [facility] (IRA) RBC, ur 0-2 0 - 2 /HPF [facility] ([facility]) Epithelial cells, squamous, ur 1-5 0 - 5 /HPF [facility] (IRA) Bacteria, ur Trace(A) [facility] (IRA) Mucous, ur Present(A) [facility] (IRA) Urine 06/09/2020 11:4 5 AM CDT 06/09/2020 1:15 PM CDT Leobardo Bhagat MD LAB URINE ORDERABLES Final Re sult Performing Organization Address [facility] Co de Phone Number OLIVIA [facility] (SURESH) 1 [facility] [place] [address] * Differential, auto (06/09/2020 11:45 AM CDT) Neutrophil abs 4.4 1.7 - 6.5 K/cumm [facility] ([facility]) Imm gran abs 0.0 0.0 - 0.1 K/cumm [facility] ([facility]) Lymphocyte abs 3.2 0.8 - 3.3 K/cumm [facility] ([facility]) Monocyte abs 0.6 0.2 - 0.8 K/cumm [facility] ([facility]) Eosinophil abs 0.2 0.0 - 0.5 K/cumm [facility] ([facility]) Basophil abs 0.1 0.0 - 0.1 K/cumm [facility] ([facility]) Neutrophil pct 51.5 % [facility] ([facility]) Comment: Interpretive Data Percent cell count reference ranges are not reported, since discordance with absolute values may lead to misinterpretation of CBC data. Current Interpretive Data was last revised on 2017. Imm gran pct 0.2 % [facility] ([facility]) Comment: Interpretive Data Percent cell count reference ranges are not reported, since discordance with absolute values may lead to misinterpretation of CBC data. Current Interpretive Data was last revised on 2017. Lymphocyte pct 38.0 % [facility] ([facility]) Comment: Interpretive Data Percent cell count reference ranges are not reported, since discordance with absolute values may lead to misinterpretation of CBC data. Current Interpretive Data was last revised on 2017. Monocyte pct 7.3 % [facility] ([facility]) Comment: Interpretive Data Percent cell count reference ranges are not reported, since discordance with absolute values may lead to misinterpretation of CBC data. Current Interpretive Data was last revised on 2017. Eosinophil pct 2.2 % [facility] ([facility]) Comment: Interpretive Data Percent cell count reference ranges are not reported, since discordance with absolute values may lead to misinterpretation of CBC data. Current Interpretive Data was last revised on 2017. Basophil pct 0.8 % [facility] ([facility]) Comment: Interpretive Data Percent cell count reference ranges are not reported, since discordance with absolute values may lead to misinterpretation of CBC data. Current Interpretive Data was last revised on 2017. Blood specimen (specimen) 06/09/2020 11:45 AM CDT 06/09/2020 1:15 PM CDT us Leobardo Bhagat MD LAB BLOOD ORDERABLES Final Re sult OLIVIA NATANAEL ([facility]) 1 [facility] [place] [address] * (ABNORMAL) Urinalysis reflex to microscopic (06/09/2020 11:45 AM CDT) Color, ur Yellow Yellow [facility] ([facility]) Clarity, ur Clear Clear [facility] ([facility]) Specific gravity, ur 1.023 1.010 - 1.025 [facility] ([facility]) pH, urine 6.0 [facility] ([facility]) Protein, ur ql 3+(A) Negative [facility] ([facility]) Glucose, ur ql 3+(A) Negative [facility] ([facility]) Ketones, ur Negative Negative [facility] ([facility]) Bilirubin, ur Negative Negative [facility] ([facility]) Blood, ur Trace(A) Negative [facility] ([facility]) Urobilinogen, ur <2.0 <2.0 mg/dL [facility] ([facility]) Nitrite, ur Negative Negative [facility] ([facility]) Leukocyte esterase, ur Negative Negative [facility] ([facility]) UA reflex comment Reflex to microscopic UA will be performed. [facility] ([facility]) Urine 06/09/2020 11:4 5 AM CDT 06/09/2020 1:15 PM CDT Narrative [facility] ([facility]) - 06/09/2020 1:28 PM CDT ?? Urine pH is affected by diet, medications, systemic acid-base disturbances, and renal tubular function. ??pH may affect urinary stone formation. ??For example, urine pH below 6.0 may help reduce the tendency for calcium phosphate stones and pH greater than 6.0 may reduce the tendency for uric acid stone formation. Source: [employer]. Last revised 03-06-2017 us Leobardo Bhagat MD LAB URINE ORDERABLES Final Re sult [facility] ([facility]) 1 [facility] [place] [address] * PTH (06/09/2020 11:45 AM CDT) PTH 65 15 - 65 pg/mL [facility] ([facility]) Blood specimen (specimen) 06/09/2020 11:45 AM CDT 06/09/2020 1:15 PM CDT us Leobardo Bhagat MD LAB BLOOD ORDERABLES Final Re sult [facility] ([facility]) 1 [facility] [place] [address] * TSH (06/09/2020 11:45 AM CDT) Pathologist [facility] Thyroid Stimulating Hormone 1.56 0.30 - 4.20 mcIUnit/mL [facility] ([facility]) Blood specimen (specimen) 06/09/2020 11:45 AM CDT 06/09/2020 1:15 PM CDT Leobardo Bhagat MD LAB BLOOD ORDERABLES Final Re sult Performing Organization Address City/[facility]/ZIP Co de Phone Number [facility] ([facility]) 1 [facility] [place] [address] * (ABNORMAL) CBC with auto differential (06/09/2020 11:45 AM CDT) Pathologist [facility] WBC 8.5 3.8 - 9.9 K/cumm [facility] ([facility]) Hgb 12.7 11.9 - 15.5 g/dL [facility] ([facility]) Hct 40.2 35.6 - 45.5 % [facility] ([facility]) Plt 391 150 - 400 K/cumm [facility] ([facility]) MPV 10.6 9.1 - 12.3 fL [facility] ([facility]) RBC 4.58 3.90 - 5.20 M/cumm [facility] ([facility]) MCV 87.8 81.3 - 96.4 fL [facility] ([facility]) MCH 27.7 27.1 - 33.3 pg [facility] ([facility]) MCHC 31.6(L) 32.3 - 35.7 g/dL [facility] ([facility]) RDW CV 14.5 11.1 - 14.9 % [facility] ([facility]) RDW SD 46.3 35.7 - 48.1 fL [facility] ([facility]) NRBC abs 0.00 0.00 - 0.01 K/cumm [facility] ([facility]) Blood specimen (specimen) 06/09/2020 11:45 AM CDT 06/09/2020 1:15 PM CDT us Leobardo Bhagat MD LAB BLOOD ORDERABLES Final Re sult [facility] ([facility]) 1 [facility] [place] [address] * Renal function panel (06/09/2020 11:45 AM CDT) Sodium 140 135 - 145 mmol/L [facility] ([facility]) Potassium, pl 4.8 3.3 - 4.9 mmol/L [facility] ([facility]) Chloride 102 97 - 110 mmol/L [facility] ([facility]) CO2 26 22 - 32 mmol/L [facility] ([facility]) Anion gap 11 2 - 15 mmol/L [facility] ([facility]) BUN 16 8 - 25 mg/dL [facility] ([facility]) Creatinine 0.94 0.60 - 1.10 mg/dL [facility] ([facility]) Glucose 113 70 - 199 mg/dL [facility] ([facility]) [...] interpretive data was last revised 2017. Calcium 9.5 8.5 - 10.3 mg/dL [facility] ([facility]) Phosphorus, pl 3.4 2.3 - 4.5 mg/dL [facility] ([facility]) Albumin 4.0 3.5 - 5.0 g/dL [facility] ([facility]) Blood specimen (specimen) 06/09/2020 11:45 AM CDT 06/09/2020 1:15 PM CDT Leobardo Bhagat MD LAB BLOOD ORDERABLES Final Re sult OLIVIA SANTOYO (IRA) 1 [facility] [place] [address] * Erythrocyte sedimentation rate (06/09/2020 11:45 AM CDT) Erythrocyte sedimentation rate 22 1 - 30 mm/hr OLIVIA SANTOYO (IRA) Blood specimen (specimen) 06/09/2020 11:45 AM CDT 06/09/2020 1:15 PM CDT Leobardo Bhagat MD LAB BLOOD ORDERABLES Final Re sult Performing Organization Address [facility] Co de Phone Number OLIVIA SANTOYO (IRA) 1 [place] [address] documented in this encounter Visit Diagnoses Not on filedocumented in this encounter Care Teams Black Top Roller Relationship Specialty Start Date End Date Vilma Herrera PA [address] [place] [address] PCP - General Physician Real Estate Teacher 08/19/19 07/06/20 documented as of this encounter
--- OUTSIDE RECORDS SUMMARY | 2024-03-03 15:37 | XMS_ITS | Encounter Summary ---
Author Organization [facility] Medical Group Address [address] [facility] [address] [place] [address] Care Team Providers Care Python Web Developer Name Role Phone Vilma Herrera Primary Care Provider [phone] Encounter Details Date Type Department Care Team (Late st Contact Info) Description 06/02/2020 Telephone [facility] of [address] [place] [address] Marialuisa Daniel, CHRISTOPHER [address] [address] Social History Tobacco Use Types Packs/Day Years Used Date Smoking Tobacco: Every Day Smokeless Tobacco: Never Comments Unknown Sex and Gender Information Value Date Recorded Sex Assigned at Not on file Legal Sex Female 8:53 AM 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 Thanks marialuisa * Telephone Encounter - Allyssa Avina MA - 06/07/2020 3:50 PM CDT Please advise, thank you * Telephone Encounter - Jailyn Berry - 06/07/2020 3:37 PM CDT Pt states she is returning Marialuisa's call. States she is interested in getting the omnipod. * Telephone Encounter - Corinna Wright MA - 06/02/2020 3:00 PM CDT I called Lilly and I have sent her the last 2 office notes, the script is on Marialuisa's desk and will be faxed when Marialuisa returns. * Telephone Encounter - Jailyn Berry - 06/02/2020 2:15 PM CDT omnipod calling to verify that we received the order form and request for office notes that was faxed earlier this week. If we did not receive it, please call Lilly. [phone] She is aware Marialuisa is out of the office until next week documented in this encounter Plan of Treatment Not on file documented as of this encounter Visit Diagnoses Not on filedocumented in this encounter Care Teams Python Web Developer Relationship Specialty [place] [address] [place] [address] PCP - General Physician Healthcare Associate 08/19/19 07/06/20 documented as of this encounter
--- OUTSIDE RECORDS SUMMARY | 2024-03-03 15:37 | XMS_ITS | Encounter Summary ---
Author Organization [facility] Healthcare Address [address] [place] [address] Care Team Providers Care Cosmetic Dentist Name Role Phone Marialuisa Daniel STEEL ESTIMATOR Primary Care Provider [phone] Eron Holliday STEEL ESTIMATOR Primary Care Provider [phone] Encounter Details Date Type Department Care Team (Late st Contact Info) Description 06/27/2021 Telephone [facility] [address] [place] [address] [place] [id number] [place] [address] [address] [place], [place] [id number] Social History Tobacco Use Types Packs/Day Years Used Date Smoking Tobacco: Every Day Cigarettes Last attempted to quit: 03/20/2020 Smokeless Tobacco: Never Comments No Sex and Gender Information Value Date Recorded Sex Assigned at Not on file Legal Sex Female 8:53 AM CONSUMER BANKER Gender Identity Female 12/26/2023 10:11 PM CDT Sexual Orientation Straight 12/26/2023 10 :11 PM CDT documented as of this encounter Miscellaneous Notes * Telephone Encounter - Clementine Bravo RN - 06/27/2021 12:21 PM CDT Done, Patient Notified * Telephone Encounter - Donita Hendricks - 06/27/2021 11:07 AM CDT PLEASE ORDER LUMBAR MRI WITHOUT RAD CHNE AUTH# [id number] 07/15-09/14/21 CERVICAL XRAY LET PATIENT KNOW MRI CERVICAL IS DENIED AND SHE NEEDS XRAY FIRST documented in this encounter Plan of Treatment Not on file documented as of this encounter Visit Diagnoses Not on filedocumented in this encounter Care Teams Cosmetic Dentist Relationship Specialty Start Date End Date Marialuisa Daniel NP PCP - General 07/07/20 06/27/21 Eron Holliday NP [address] [place] [address] PCP - General 06/28/21 05/08/22 documented as of this encounter
--- OUTSIDE RECORDS SUMMARY | 2024-03-03 15:37 | XMS_ITS | Encounter Summary ---
Author Organization [facility] Medical Group Address [address] [facility] [address] [place] [address] Care Team Providers Care Launch Leader Name Role Phone Eron Holliday NP Primary Care Provider [phone] Reason for Visit * Reason Onset Date Comments medication changes 09/26/2021 Encounter Details Date Type Department Care Team (Late st Contact Info) Description 09/26/2021 Telephone [facility] Medical Group Diabetes Endocrine Care of [address] [place] [address] Marialuisa Daniel NP [address] [address] medication changes Social History Tobacco Use Types Packs/Day Years Used Date Smoking Tobacco: Former Cigarettes Q uit: 03/20/2020 Smokeless Tobacco: Never Comments No Sex and Gender Information Value Date Recorded Sex Assigned at Not on file Legal Sex Female 8:53 AM AGRICULTURAL PILOT Gender Identity Female 12/26/2023 10:11 PM CDT Sexual Orientation Straight 12/26/2023 10 :11 PM CDT documented as of this encounter Miscellaneous Notes * Telephone Encounter - Ginny Molina MA - 09/26/2021 3:44 PM CDT Patient notified * Telephone Encounter - Ginny Molina MA - 09/26/2021 3:43 PM CDT ----- Message from Marialuisa Daniel NP sent at 09/26/2021 3:15 PM CDT ----- Regarding: drug changes due to formulary change Tell Sandy, 1. I changed her novolog insulin to humalog as per her insurance company. 2. Ozempic 2mg has to be stopped due to insurance denial. I changed her to Trulicity 3mg weekly. Please ask her to take this for 4 weeks. If she is tolerating this dose ok, let me know and we will increase her to Trulicity 4.5mg weekly. Thanks Marialuisa documented in this encounter Plan of Treatment Not on file documented as of this encounter Visit Diagnoses Not on filedocumented in this encounter Care Teams Launch Leader Relationship Specialty Start Date End Date Eron Holliday NP [address] [facility] [place] [address] PCP - General 06/28/21 05/08/22 documented as of this encounter
--- OUTSIDE RECORDS SUMMARY | 2024-03-03 15:37 | XMS_ITS | Encounter Summary ---
Author Organization [facility] Medical Group Address [address] [facility] [address] [place] [address] Care Team Providers Care Setter Off Name Role Phone Vilma Herrera Primary Care Provider [phone] Encounter Details Date Type Department Care Team (Late st Contact Info) Description 03/09/2020 Telephone [facility] of [address] [place] [address] Marialuisa Daniel, FENCE INSTALLER [address] [address] Social History Tobacco Use Types Packs/Day Years Used Date Smoking Tobacco: Every Day Smokeless Tobacco: Never Comments Unknown Sex and Gender Information Value Date Recorded Sex Assigned at Not on file Legal Sex Female 8:53 AM FITTER'S ASSISTANT Gender Identity Female 12/26/2023 10:11 PM CDT Sexual Orientation Straight 12/26/2023 10 :11 PM CDT documented as of this encounter Miscellaneous Notes * Telephone Encounter - Corinna Wright MA - 03/09/2020 4:33 PM CST Please see message and send appropriate script ER'S ASSISTANT * Telephone Encounter - Jailyn Berry - 03/09/2020 4:22 PM CST [facility] states pt was expecting her trulicity rx to be a higher dose or strength, but the pharmhasn't received a new rx since 02/10. Please clarify [phone] ER'S ASSISTANT documented in this encounter Plan of Treatment Not on file documented as of this encounter Visit Diagnoses Not on filedocumented in this encounter Care Teams Setter Off Relationship Specialty Start Date End Date Vilma Herrera PA [address] [place] [address] PCP - General Physician Trackwalker 08/19/19 07/06/20 documented as of this encounter
--- OUTSIDE RECORDS SUMMARY | 2024-03-03 15:37 | XMS_ITS | Encounter Summary ---
Author Organization [facility] Healthcare Address [address] [place] [address] Care Team Providers Care Junior Business Analyst Name Role Phone Eron Holliday NP Primary Care Provider [phone] Reason for Referral * MRI/CAT/PET Scan (Routine) - Closed Specialty Diagnoses / Procedures Referred By Contac t Referred To Contact Radiology Diagnoses Chronic bilateral low back pain with bilateral sciatica Radiculopathy, lumbosacral region Lumbar facet joint syndrome Procedures MRI [place] [address] [facility] [address] [place] [address] Phone: tel: fax: [address] [address] Referral ID Status Reason Start Date Expiration Date Visits Re quested Visits Authorized [id number] Closed 06/27/2021 08/25/2021 1 1 Reason for Visit * MRI/CAT/PET Scan (Routine) - Closed Specialty Diagnoses / Procedures Referred By Contac t Referred To Contact Radiology Diagnoses Chronic bilateral low back pain with bilateral sciatica Radiculopathy, lumbosacral region Lumbar facet joint syndrome Procedures MRI [place] [address] [facility] [address] [place] [address] Phone: tel: fax: [facility] [id number] [place] [phone] Referral ID Status Reason Start Date Expiration Date Visits Re quested Visits Authorized [id number] Closed 06/27/2021 08/25/2021 1 1 Encounter Details Date Type Department Care Team (Late st Contact Info) Description 07/06/2021 4:17 PM CDT - 07/06/2021 11:59 PM CDT Hospital Encounter [facility] Imaging and Radiology [id number] [place], [place] [id number] [place] [address] [facility] [address] [place] [id number] Chronic bilateral low back pain with bilateral sciatica; Radiculopathy, lumbosacral region; Lumbar facet joint syndrome Discharge Disposition: Discharge to home or self care Social History Tobacco Use Types Packs/Day Years Used Date Smoking Tobacco: Every Day Cigarettes Last attempted to quit: 03/20/2020 Smokeless Tobacco: Never Comments No Sex and Gender Information Value Date Recorded Sex Assigned at Not on file Legal Sex Female 8:53 AM STOCK CHECKERER Gender Identity Female 12/26/2023 10:11 PM CDT [...] x 07/09 syringe Twice a day 07/13/2018 propranoloL (INDERAL) [...] each 07/04/2017 4 blood-glucose meter,continuous (Dexcom G6 Photographer Apprentice) miscIndications:t ype 2 diabetes mellitus 1 Device [...] (HCC) USE TO TEST BLOOD SUGAR DIRECTED 9 [...] Name Priority Date/Time Associated Diagnosis Comments MRI LUMBAR SPINE WO CONTRAST Schedule Routine, Read Routine (OP Routine) 07/06/2021 5:37 PM CDT Chronic bilateral low back pain with bilateral sciatica Radiculopathy, lumbosacral region Lumbar facet joint syndrome documented in this encounter Results * MRI Lumbar Spine [...] syndrome documented in this encounter Care Teams Junior Business Analyst Relationship Specialty Start Date End Date Eron Holliday NP [address] [facility] [place] [address] PCP - General 06/28/21 05/08/22 documented as of this encounter
--- OUTSIDE RECORDS SUMMARY | 2024-03-03 15:37 | XMS_ITS | Encounter Summary ---
Author Organization [facility] Medical Group Address [address] [facility] [address] [place] [address] Care Team Providers Care Risk Investigator Name Role Phone Eron Holliday NP Primary Care Provider [phone] Reason for Visit * Reason Onset Date Comments New PDM set up 12/26/2021 Encounter Details Date Type Department Care Team (Late st Contact Info) Description 12/26/2021 Telephone [facility] Medical Group Diabetes Endocrine Care of [address] [place] [address] Marialuisa Daniel, CHRISTOPHER [address] [address] New PDM set up Social History Tobacco Use Types Packs/Day Years Used Date Smoking Tobacco: Former Cigarettes Q uit: 03/20/2020 Smokeless Tobacco: Never Comments No Sex and Gender Information Value Date Recorded Sex Assigned at Not on file Legal Sex Female 8:53 AM SWABBER Gender Identity Female 12/26/2023 10:11 PM CDT Sexual Orientation Straight 12/26/2023 10 :11 PM CDT documented as of this encounter Miscellaneous Notes * Telephone Encounter - Ginny Molina MA - 12/27/2021 2:27 PM CDT Patient scheduled for Friday12/28/21. * Telephone Encounter - Ginny Molina MA - 12/26/2021 2:38 PM CDT Patient called and states she received her new PDM and needs help setting it up. Can patient come for help with set up? If so, when would you like her here? Please advise, thank you documented in this encounter Plan of Treatment Not on file documented as of this encounter Visit Diagnoses Not on filedocumented in this encounter Care Teams Risk Investigator Relationship Specialty Start Date End Date Eron Holliday NP [address] [place] [address] [place] [id number] PCP - General 06/28/21 05/08/22 documented as of this encounter
--- OUTSIDE RECORDS SUMMARY | 2024-03-03 15:37 | XMS_ITS | Encounter Summary ---
Author Organization [facility] Address [address] [place] [address] Care Team Providers Care Wrong Address Clerk Name Role Phone Marialuisa Tyson NP Primary Care Provider [phone] Reason for Visit * Reason Comments Diabetes Type 2 Encounter Details Date Type Department Care Team (Late st Contact Info) Description 06/01/2021 10:00 AM CDT Office Visit [facility] [address] [place] [address] Marialuisa Tyson, ACADEMIC REGISTRAR [address] [address] Type 2 diabetes mellitus with hyperglycemia, with long-term current use of insulin ([facility]/HCC) (HCC) (Primary Dx); Morbid (severe) obesity due to excess calories ([facility]); Cigarette smoker; Insulin pump titration; Hyperlipidemia associated with type 2 diabetes mellitus (HCC) Social History Tobacco Use Types Packs/Day Years Used Date Smoking Tobacco: Every Day Cigarettes Last attempted to quit: 03/20/2020 Smokeless Tobacco: Never Comments Unknown Sex and Gender Information Value Date Recorded Sex Assigned at Not on file 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 Identity Female 12/26/2023 10:11 PM CDT Sexual Orientation Straight 12/26/2023 10 :11 PM CDT documented as of this encounter Last Filed Vital Signs Vital Sign Reading Time Taken Comments Blood Pressure 128/72 06/01/2021 10:07 AM CDT Pulse - - Temperature - - Respiratory Rate - - Oxygen Saturation - - Inhaled Oxygen Concentration - - Weight 98.7 kg (217 lb 11.2 oz) 022 10:07 AM CDT Height 165.1 cm (5' 5 ) 06/01/2021 10:0 7 AM CDT Body Mass Index 36.23 06/01/2021 10:07 AM CDT documented in this encounter Patient Instructions * Patient Instructions* Marialuisa Tyson, ACADEMIC REGISTRAR - 06/01/2021 10:00 AM CDT Thanks for coming in today. I am thankful you have trusted me with your care, and hope that you received EXCELLENT care today! Please do not hesitate to call if you have any questions or concerns at [phone]. You may receive a phone call or text asking about your care today. I would love to hear your input and again, hope your visit was as EXCELLENT as possible, even if you were not feeling your best! Medications: ??? Please take medications as prescribed. Continue on omnipod insulin delivery system Monitoring: ??? Check blood sugar continuously with DExcom 6. [...] once per week. ??? See the Dietitian, Manager Drug Safety . Call Centralized Scheduling at [phone] to make an appointment. Exercise: ??? Try [...] Last Filled Start Date End Date insulin pump cart,cont inf,BT (Omnipod Dash Insulin Pod) cartridge Change omnipod dash every 48 hrs. e11.65 45 each 3 06/01/2021 3 documented in this encounter Progress Notes * Marialuisa Tyson NP - 06/01/2021 10:00 AM CDT Images from the original note were not included. Subjective/Objective Patient ID: Sandy Lopez is a 55 y.o. female. Chief Complaint Diabetes Type 2 Today visit is a follow up visit. She has Type 2 Diabetes. Her weight has decreased by 1lbs since her last office visit. She reports an increase in her neuropathy pain and is requesting to see pain management.. 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 She eats 2-3 meals/day. She mo nitors blood sugar by wearing the DexCom 6 sensor. The Dexcom 6 was downloaded and reviewed. She denies hypoglycemia. Today's visit is to review labs and discuss future plan. ?? Diabetes regimen: Omnipod - continue 0000-2.25, 0400-2.45 ic-6, isf-20 Ozemic 1mg weekly [...] each 0 ??? blood-glucose meter,continuous (Dexcom G6 Facial Operator) misc 1 Device continuously 1 each 1 ??? cetirizine (ZyrTEC) 10 mg tablet Take 10 mg by mouth daily ??? citalopram (CeleXA) 40 mg tablet Take 40 mg by mouth daily. ??? clopidogreL (PLAVIX) 75 mg tablet Take 75 mg by mouth daily ??? Dexcom G6 Sensor device USE TO TEST BLOOD SUGAR DIRECTED 9 each 3 ??? Dexcom G6 Transmitter device USE TO TEST BLOOD SUGAR TWICE A DAY 1 each 3 ??? estradioL (ESTRACE) 0.5 mg tablet Take 0.5 mg by mouth daily ??? ezetimibe (ZETIA) 10 mg tablet TAKE 1 TABLET BY MOUTH DAILY 28 tablet 0 ??? famotidine (PEPCID) 20 mg tablet ??? insulin aspart (NovoLOG) 100 unit/mL vial for injection USE PER INSULIN PUMP MAX OF 150 UNITS DAILY DIRECTED 50 mL 5 ??? losartan (COZAAR) 25 mg tablet TAKE 1 TABLET BY MOUTH DAILY 90 tablet 3 ??? metFORMIN (GLUCOPHAGE) 1,000 mg tablet TAKE 1 TABLET BY MOUTH TWICE A DAY WITH FOOD 180 tablet 3 ??? norethindrone (AYGESTIN) 5 mg tablet Take 5 mg by mouth daily ??? Omnipod Dash 5 Pack Pod cartridge CHANGE OMNIPOD DASH POD EVERY 48 HOURS 45 each 3 ??? propranoloL (INDERAL) 20 mg tablet propranolol 20 mg tablet ??? semaglutide (Ozempic) 1 mg/dose (2 mg/1.5 mL) pen injector injection Inject 1 mg under the skinevery 7 days 4 pen 5 ??? SUMAtriptan (IMITREX) 50 mg tablet sumatriptan 50 mg tablet ??? zolpidem (AMBIEN) 10 mg tablet Take 10 mg by mouth nightly as needed ??? insulin syringe-needle U-100 1 mL 31 gauge x 5/16 syringe Twice a day ??? pediatric multivitamin-iron tablet,chewable Take by mouth (Patient not taking: Reported on 06/01/2021) No current facility-administered medications for this visit. Past Medical History: Diagnosis Date ??? Uncontrolled type 2 diabetes mellitus with hyperglycemia, with long-term current use of insulin([facility]) 04/03/2017 Social History Tobacco Use ??? Smoking status: Current Every Day Smoker Last attempt to quit: 03/20/2020 Years since quittin.2 ??? Smokeless tobacco: Never Used Substance Use Topics ??? Alcohol use: Not on file No family history on file. Lab Results Component Value Date HGBA1C 7.8 06/01/2021 HGBA1C 8.2 12/01/2020 HGBA1C 8.3 08/18/2020 HGBA1C 8.4 05/12/2020 HGBA1C 7.5 02/11/2020 HGBA1C 7.4 11/19/2019 Chemistry Lab Results Component Value Date SODIUM 140 06/09/2020 POTASSIUM 4.8 06/09/2020 CHLORIDE 102 06/09/2020 CO2 26 06/09/2020 ANIONGAP 11 06/09/2020 BUNSER 16 06/09/2020 CREATININE 0.82 12/23/2020 GLUCOSE 113 06/09/2020 CALCIUM 9.5 06/09/2020 BILITOT 0.2 09/24/2019 ALBUMIN 4.0 06/09/2020 GFRNAA 82 12/23/2020 ALKPHOS 69 09/24/2019 AST 40 09/24/2019 ALT [...] hyperglycemia, with long-term current use of insulin ([facility]) ([facility]) (Primary) Assessment & Plan: This is a chronic condition which is??stable??improving hyperglycemia, not at goal. ?? Personally reviewed A1c today-7.8% Not at ??goal less than 7% Medication- Continue Omnipod pump?? Continue Ozempic 1mg weekly . Monitor blood sugar??continuously with DexCom 6 sensor. ?? Encouraged annual eye exam. ??last dilated eye exam was [facility]? Monofilament foot exam completed, protective senses intact Urine microalbumin/creatinine ratio -??865?Currently on Losartan 25 mg daily/ HCTZ, ?goal <30 . ??Seeing Dr. Bhagat Personally reviewed labs: BUN-??16, creatinine- 0.94?GFR- 69?Kidney function- abnormal B/P today-128/72, currently Losartan 25 mg daily??and HCTZ. ??At goal blood pressure is <140/90 Personally reviewed LDL -47, currently on??atorvastatin 80mg daily.?? No history of macrovascular disease - CV[place], [place].? Dexcom downloaded for??05/19/21 to 06/01/21 This device [...] weight loss. In target 84.4% of time. Orders: - POCT glucose - POCT hemoglobin A1c - Albumin Creatinine Ratio, Urine; Future - Comprehensive metabolic panel; Future - Lipid panel; Future - TSH reflex to free T4; Future Morbid (severe) obesity due to excess calories (HCC) Cigarette smoker Assessment & Plan: Returned to smoking. Encouraged to stop. Insulin pump titration Assessment & Plan: This is a chronic condition which is not at goal. ?? Download reviewed. Type of insulin pump-Omnipod insulin delivery system with DexCom 6 sensor Basal??increased to 0000-2.25??0400-2.45 IC??-6 ISF-20?? Active insulin time 4hrs. TARGET GLUCOSE?110-120 Avg BG?143 Total daily dose of insulin-88units Bolus- 33 units (38%) Basal- 55 units (62%) Hyperlipidemia associated with type 2 diabetes mellitus [...] and prescribed medications. Follow up 6 weeks 3 months Marialuisa Tyson NP documented in this encounter Miscellaneous Notes * Assessment & Plan Note - Marialuisa Tyson NP - 06/01/2021 12:53 PM CDT Associated Problem(s): Hyperlipidemia associated with [...] Plan Note - Marialuisa Tyson NP - 06/01/2021 12:53 PM CDT Associated Problem(s): Cigarette smoker Returned to smoking. Encouraged to stop. * Assessment & Plan Note - Marialuisa Tyson NP - 06/01/2021 12:51 PM CDT Associated Problem(s): Omnipod Dash Insulin pump in place This is a chronic condition which is not at goal. ?? Download reviewed. Type of insulin pump-Omnipod insulin delivery system with DexCom 6 sensor Basal??increased to 0000-2.25??0400-2.45 IC??-6 ISF-20?? Active insulin time 4hrs. TARGET GLUCOSE?110-120 Avg BG?143 Total daily dose of insulin-88units Bolus- 33 units (38%) Basal- 55 units (62%) * Assessment & Plan Note - Marialuisa Tyson NP - 06/01/2021 12:47 PM CDT Associated Problem(s): Type 2 diabetes mellitus with diabetic peripheral angiopathy without gangrene, with long-term current use of insulin (CMS/HCC) (HCC) (Deleted) This is a chronic condition which is??stable??improving hyperglycemia, not at goal. ?? Personally reviewed A1c today-7.8% Not at ??goal less than 7% Medication- Continue Omnipod pump?? Continue Ozempic 1mg weekly . Monitor blood sugar??continuously with DexCom 6 sensor. ?? Encouraged annual eye exam. ??last dilated eye exam was [facility]? Monofilament foot exam completed, protective senses intact Urine microalbumin/creatinine ratio -??865?Currently on Losartan 25 mg daily/ HCTZ, ?goal <30 . ??Seeing Dr. Bhagat Personally reviewed labs: BUN-??16, creatinine- 0.94?GFR- 69?Kidney function- abnormal B/P today-128/72, currently Losartan 25 mg daily??and HCTZ. ??At goal blood pressure is <140/90 Personally reviewed LDL -47, currently on??atorvastatin 80mg daily.?? No history of macrovascular disease - [place], [place].? Dexcom downloaded for??05/19/21 to 06/01/21 This device [...] weight loss. In target 84.4% of time. * Assessment & Plan Note - Marialuisa Tyson NP - 06/01/2021 10:00 AM CDT Associated Problem(s): Type 2 diabetes mellitus with hypoglycemia without coma, with long-term current use of insulin ([facility]) >>ASSESSMENT AND PLAN FOR TYPE 2 DIABETES MELLITUS WITH DIABETIC PERIPHERAL ANGIOPATHY WITHOUT GANGRENE, WITH LONG-TERM CURRENT USE OF INSULIN ([facility]/HCC) (HCC) WRITTEN ON 06/01/2021 12:51 PM BY MARIALUISA TYSON NP This is a chronic condition which is??stable??improving hyperglycemia, not at goal. ?? Personally reviewed A1c today-7.8% Not at ??goal less than 7% Medication- Continue Omnipod pump?? Continue Ozempic 1mg weekly . Monitor blood sugar??continuously with DexCom 6 sensor. ?? Encouraged annual eye exam. ??last dilated eye exam was [facility]? Monofilament foot exam completed, protective senses intact Urine microalbumin/creatinine ratio -??865?Currently on Losartan 25 mg daily/ HCTZ, ?goal <30 . ??Seeing Dr. Bhagat Personally reviewed labs: BUN-??16, creatinine- 0.94?GFR- 69?Kidney function- abnormal B/P today-128/72, currently Losartan 25 mg daily??and HCTZ. ??At goal blood pressure is <140/90 Personally reviewed LDL -47, currently on??atorvastatin 80mg daily.?? No history of macrovascular disease - [place], [place].? Dexcom downloaded for??05/19/21 to 06/01/21 This device [...] weight loss. In target 84.4% of time. documented in this encounter Plan of Treatment Not on file documented as of this encounter Procedures Procedure Name Priority Date/Time Associated Diagnosis Comments POCT HEMOGLOBIN A1C Routine 06/01/2021 1 0:33 AM CDT Type 2 diabetes mellitus with hyperglycemia, with long-term current use of insulin ([facility]) ([facility]) POCT GLUCOSE Routine 06/01/2021 10:33 AM CDT Type 2 diabetes mellitus with hyperglycemia, with long-term current use of insulin ([facility]) ([facility]) documented in this encounter Results * TSH reflex to free T4 (07/13/2021 8:13 AM CDT) TSH 0.96 0.30 - 4.20 mcIUnit/mL [facility] Blood 07/13/2021 8:13 AM CDT 07/13/2021 10:14 AM CDT us Marialuisa Tyson NP LAB BLOOD ORDERABLES Final Resu lt [facility] ([place]) 1 [facility] Department [place] [address] * (ABNORMAL) Lipid panel (07/13/2021 8:13 AM [...] on 2017. HDL 28(L) >=40 mg/dL [facility] ([place]) Comment: Interpretive [...] revised on 2017. Chol/HDL ratio 5 [facility] ([place]) Blood 07/13/2021 8:13 AM CDT 07/13/2021 10:14 AM CDT Narrative [facility] - 07/13/2021 10:45 AM CDT These lab test should be done fasting. This means do not eat or drink for at least 12 hours prior to getting your blood drawn. us Marialuisa Tyson ACADEMIC REGISTRAR LAB BLOOD ORDERABLES Final Resu lt [facility] ([place]) 1 [facility] Department [place] [address] * Comprehensive metabolic panel (07/13/2021 8:13 AM [...] AM CDT 07/13/2021 10:14 AM CDT Marialuisa Tyson ACADEMIC REGISTRAR LAB BLOOD ORDERABLES Final Resu lt Performing Organization Address City/[facility] Co de Phone Number [facility] ([place]) [address] [place] [address] * (ABNORMAL) Albumin Creatinine Ratio, Urine (07/13/2021 8:13 AM CDT) Albumin Ur 5,983.8 mg/L [facility] ([place]) Comment: Interpretive Data No reference range established. Current interpretive data was last revised 2018. Testing performed by: [facility], [address] [place] [address]., [id number] Creatinine Ur 194.6 mg/dL [facility] ([place]) Comment: Interpretive Data No reference range established. Current interpretive data was last revised 2018. Testing performed by: [facility], [address] [place] [address]., [id number] Albumin Creatinine Ratio, Ur 3,075(H) 1 - 29 mg/g [facility] ([place]) Comment:Testing performed by : [facility], [address] [place] [address]., [id number] Urine 07/13/2021 8:13 AM CDT 07/13/2021 2:51 PM CDT Marialuisa Tyson NP LAB URINE ORDERABLES Final Resu lt Performing Organization Address City/[facility] Co de Phone Number [facility] ([place]) 1 [facility] [place] [address] * POCT hemoglobin A1c (06/01/2021 10:33 AM CDT) Hemoglobin A1C, POC 7.8 Blood specimen (specimen) 06/01/2021 10:33 AM CDT Marialuisa Tyson ACADEMIC REGISTRAR POINT OF CARE TEST ORDERABLES F inal Result * POCT glucose (06/01/2021 10:33 AM CDT) Glucose Blood, POC 127 mg/dL Blood specimen (specimen) 06/01/2021 10:33 AM CDT Marialuisa Tyson ACADEMIC REGISTRAR POINT OF CARE TEST ORDERABLES F inal Result documented in this encounter Visit Diagnoses Diagnosis Type 2 diabetes mellitus with hyperglycemia, with long-term current use of insulin ([facility])- Primary Morbid (severe) obesity due to excess calories ([facility]) Cigarette smoker Tobacco use disorder Insulin pump titration Fitting and adjustment of insulin pump Hyperlipidemia associated with type 2 diabetes mellitus (HCC) Type 2 diabetes mellitus with hyperglycemia, with long-term current use of insulin ([facility]) documented in this encounter Discontinued Medications Medication Sig Discontinue Reason Start Date End Da te Basaglar KwikPen U-100 Insulin 100 unit/mL (3 mL) insulin pen INJECT 38 UNITS SUBCUTANEOUSLY EVERY TWELVE HOURS Therapy completed 10/06/2019 06/01/2021 diazePAM (VALIUM) 5 mg tablet diazepam 5 mg tablet Therapy completed hydroCHLOROthiazide (HYDRODIURIL) 12.5 mg tablet Take 12.5 mg by mouth daily. Therapy completed 06/01/2021 nicotine (NICODERM CQ) 21 mg nicotine 21 mg/24 hr daily transdermal patch Therapy completed 06/01/2021 nicotine polacrilex (COMMIT) 4 mg lozenge Therapy completed 11/15/2020 06/01/2021 sulfamethoxazole-tr imethoprim (BACTRIM DS) 800-160 mg per tablet sulfamethoxazole 800 mg-trimethoprim 160 mg tablet Therapy completed 06/01/2021 Omnipod Dash 5 Pack Pod cartridge CHANGE OMNIPOD DASH POD EVERY 48 HOURS Reorder 08/29/2020 06/01/2021 documented as of this encounter Care Teams Wrong Address Clerk Relationship Specialty Start Date End Date Marialuisa Tyson NP PCP - General 07/07/20 06/27/21 documented as of this encounter
--- OUTSIDE RECORDS SUMMARY | 2024-03-03 15:37 | XMS_ITS | Encounter Summary ---
Author Organization [facility] Address [address] [place] [address] Care Team Providers Care Steam Pan Sponger Name Role Phone Vilma Herrera Primary Care Provider [phone] Reason for Visit * Reason Comments Diabetes Type 2 Hyperglycemia Encounter Details Date Type Department Care Team (Late st Contact Info) Description 05/12/2020 10:30 AM CDT Office Visit [facility] of [address] [place] [address] Marialuisa Tyson, GREEN CHAINER [address] [id number] Type 2 diabetes mellitus with hyperglycemia, with long-term current use of insulin ([facility]) (Primary Dx); Insulin pump titration; Former cigarette smoker Social History Tobacco Use Types Packs/Day Years Used Date Smoking Tobacco: Every Day Smokeless Tobacco: Never Comments Unknown Sex and Gender Information Value Date Recorded Sex Assigned at Not on file Legal Sex Female 8:53 AM TRANSFER KNITTER Gender Identity Female 12/26/2023 10:11 PM CDT Sexual Orientation Straight 12/26/2023 10 :11 PM CDT documented as of this encounter Last Filed Vital Signs Vital Sign Reading Time Taken Comments Blood Pressure 120/86 05/12/2020 10:36 AM CDT Pulse - - Temperature - - Respiratory Rate - - Oxygen Saturation - - Inhaled Oxygen Concentration - - Weight 103 kg (227 lb) 05/12/2020 10:36 AM CDT Height 165.1 cm (5' 5 ) 05/12/2020 10:36 AM CDT Body Mass Index 37.77 05/12/2020 10:36 AM CDT documented in this encounter Patient Instructions * Patient Instructions* Marialuisa Tyson, GREEN CHAINER - 05/12/2020 10:30 AM CDT Thanks for coming in today. My health care / medical job titles, Allyssa, and I are thankful you have trusted us withyo care, and hope that you received EXCELLENT care today! Please do not hesitate to call if you have any questions or concerns at [phone]. You may receive a phone call or text asking about your care today. We would love to hear your input and again, hope your visit was as EXCELLENT as possible, even if you were not feeling your best! Medications: ??? Please take medications as prescribed. Continue on adjusted insulin pump settings Monitoring: ??? Check blood sugar 4 times per day and record. We will be requesting to see blood [...] fried foods more than once per week. Exercise: ??? Try moving at least a [...] Progress Notes * Marialuisa Tyson NP - 05/12/2020 10:30 AM CDT Images from the original note were not included. Subjective/Objective Patient ID: Sandy Lopez is a 54 y.o. female. Chief Complaint Diabetes Type 2 and Hyperglycemia Today visit is a follow up visit. She has Type 2 Diabetes. Her weight hasincreased by 10 lbs however, she stopped smoking 75 days ago. 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 She eats 2-3 meals/day. She monitors blood sugar by wearing the DexCom 6 sensor. The Dexcom 6 was downloaded and reviewed. She denies hypoglycemia. Today's visit is to review labs and discuss future plan. ?? Hyperglycemia This is a chronic problem. The current episode started more than 1 year ago. The problem occurs constantly. The problem has been gradually worsening. Associated symptoms include coughing. Pertinent negatives include no abdominal pain, arthralgias, chest pain, congestion, fatigue, nausea, neck pain,numbness, visual change, vomiting or weakness. The symptoms are aggravated by eating. Diabetes This is a chronic problem. The current episode started more than 1 year ago. The problem occurs constantly. The problem has been gradually improving. Associated symptoms include coughing. Pertinent negatives include no abdominal pain, arthralgias, chest pain, congestion, fatigue, nausea, neck pain,numbness, visual change, vomiting or weakness. The symptoms are aggravated by eating. The treatmentprovided significant relief. No Known Allergies Current Outpatient Medications Medication Sig Dispense Refill ??? aspirin 81 mg enteric coated tablet Take 81 mg by mouth daily ??? atorvastatin (LIPITOR) 80 mg tablet TAKE 1 TABLET BY MOUTH DAILY 30 tablet 11 ??? Basaglar KwikPen U-100 Insulin 100 unit/mL (3 mL) insulin pen INJECT 38 UNITS SUBCUTANEOUSLY EVERY TWELVE HOURS 15 mL 3 ??? blood glucose diagnostic (Contour Next Test Strips) strip CHECK BLOOD SUGAR FOUR TIMES A DAY ORAS DIRECTED 300 each 11 ??? blood-glucose meter kit Use daily or as directed for monitoring of diabetes 1 each 0 ??? blood-glucose meter,continuous (Dexcom G6 Prosthetics Technician) [facility] 1 Device continuously 1 each 1 ??? blood-glucose transmitter (Dexcom G6 Transmitter) device 1 Device continuously USE DEVICE CONTINUOUSLY FOR 10 DAYS 1 Device 11 ??? calcium carbonate-vitamin D3 (CALTRATE 600 + D) 1500 mg (600 mg elemental) - 400 units per tablet Take 1 tablet by mouth 2 (two) times a day ??? cetirizine (ZyrTEC) 10 mg tablet Take [...] TWICE A DAY 1 Device 3 ??? dulaglutide (Trulicity) 3 mg/0.5 mL pen injector Inject 0.5 mL (3 mg total) under the skin every 7 days 2 mL 5 ??? DULoxetine DR (CYMBALTA) 30 mg capsule Take 30 mg by mouth daily ??? estradioL (ESTRACE) 0.5 mg tablet Take 0.5 mg by mouth daily ??? ezetimibe (ZETIA) 10 mg tablet TAKE 1 TABLET BY MOUTH DAILY 30 tablet 5 ??? famotidine (PEPCID) 20 mg tablet ??? hydroCHLOROthiazide (HYDRODIURIL) 12.5 mg tablet Take 12.5 mg by mouth daily. ??? insulin aspart U-100 (NovoLOG U-100 Insulin aspart) 100 unit/mL injection Infuse insulin per Medtronic insulin pump. Max daily dose 120 units. E11.65 40 mL 5 ??? insulin syringe-needle U-100 1 mL 31 gauge x 5/16 syringe Twice a day ??? lancets (ACCU-CHEK MULTICLIX LANCET) [facility] Check blood sugar four times a day [...] with hyperglycemia, with long-term current use of insulin([facility]) 04/03/2017 Social History Tobacco Use ??? Smoking status: Current Every Day Smoker ??? Smokeless tobacco: Never Used Substance Use Topics ??? Alcohol use: Not on file History reviewed. No pertinent family history. Lab Results Component Value Date HGBA1C 7.5 02/11/2020 HGBA1C 7.4 11/19/2019 HGBA1C 7.7 (H) 09/13/2019 Chemistry Lab Results Component Value Date SODIUM 138 09/24/2019 POTASSIUM 4.9 09/24/2019 CHLORIDE 101 09/24/2019 CO2 25 09/24/2019 ANIONGAP 12 09/24/2019 BUNSER 21 09/24/2019 CREATININE 1.14 (H) 09/24/2019 GLUCOSE 181 09/24/2019 CALCIUM 9.5 09/24/2019 BILITOT 0.2 09/24/2019 ALBUMIN 4.1 09/24/2019 GFRNAA 55 09/24/2019 ALKPHOS 69 09/24/2019 AST 40 09/24/2019 ALT 31 09/24/2019 Lab Results Component Value Date CHOL 117 09/13/2019 TRIG 239 (H) 09/13/2019 HDL 22 (L) 09/13/2019 LDLCALC 47 09/13/2019 No results found for: TSH Review of Systems Constitutional: Positive for appetite [...] hyperglycemia, with long-term current use of insulin ([facility]) (Primary) Assessment & Plan: This is a [...] eye exam. last dilated eye exam was [facility] [place] Monofilament foot exam completed, protective senses intact, loss of protective senses. Treated withGabapentin/Lyrica Urine microalbumin/creatinine ratio - 865 Currently- stop [...] No history of macrovascular disease - [place]. ?? Dexcom downloaded for 04/29/20 to 05/12/20 Average blood sugar 201 Standard deviation- 50 In target -38.1% (70-180) High range-61.9% (>180) Seriously high-15.9% (>250) Low <70=0% Very low 0.0% (<54) 80.3% time CGM active. Interpretation: Worsening hyperglycemia since she stopped smoking. Insulin pump adjusted. Insulin pump titration Assessment & Plan: This [...] basal-46.6 (415) Daily bolus- 66.7 (59%) . Former cigarette smoker Assessment & Plan: Has not smoked in 75 days. Discussed and educated on eating a healthy [...] Plan Note - Marialuisa Tyson NP - 05/12/2020 1:44 PM CDTAssociated Problem(s): Omnipod Dash Insulin pump [...] basal-46.6 (415) Daily bolus- 66.7 (59%) . * Assessment & Plan Note - Marialuisa Tyson NP - 05/12/2020 1:37 PM CDTAssociated Problem(s): Type 2 diabetes mellitus with diabetic peripheral angiopathy without gangrene, with long-term current use of insulin ([facility]) (HCC) (Deleted) This is a chronic condition [...] eye exam. last dilated eye exam was [facility] [place] Monofilament foot exam completed, protective senses intact, loss of protective senses. Treated withGabapentin/Lyrica Urine microalbumin/creatinine ratio - 865 Currently- stop [...] No history of macrovascular disease - [place]. ?? Dexcom downloaded for 04/29/20 to 05/12/20 Average blood sugar 201 Standard deviation- 50 In target -38.1% (70-180) High range-61.9% (>180) Seriously high-15.9% (>250) Low <70=0% Very low 0.0% (<54) 80.3% time CGM active. Interpretation: Worsening hyperglycemia since she stopped smoking. Insulin pump adjusted. * Assessment & Plan Note - Marialuisa Tyson NP - 05/12/2020 1:36 PM CDTAssociated Problem(s): Cigarette smoker Has not smoked in 75 days. * Assessment & Plan Note - Marialuisa Tyson NP - 05/12/2020 10:30 AM CDT Associated Problem(s): Type 2 diabetes mellitus with hypoglycemia without coma, with long-term current use of insulin ([facility]) >>ASSESSMENT AND PLAN FOR TYPE 2 DIABETES MELLITUS WITH DIABETIC PERIPHERAL ANGIOPATHY WITHOUT GANGRENE, WITH LONG-TERM CURRENT USE OF INSULIN ([facility]) (HCC) WRITTEN ON 05/12/2020 1:54 PM BY MARIALUISA TYSON GREEN CHAINER This is a chronic condition which is worsening hyperglycemia, not at goal. Personally reviewed A1c today- 8.4%, increased from 7.5%. Not at goal less than 7% Personally reviewed blood sugar 178 At goal 80-180 Medication- Continue Medtronic Insulin pump, continueTrulicity 3mg weekly . Denies side effects. Monitor blood sugar continuously with DexCom 6 sensor. Encouraged annual eye exam. last dilated eye exam was [facility] [place] Monofilament foot exam completed, protective senses intact, loss of protective senses. Treated withGabapentin/Lyrica Urine microalbumin/creatinine ratio - 865 Currently- stop [...] No history of macrovascular disease - [place]. ?? Dexcom downloaded for 04/29/20 to 05/12/20 Average blood sugar 201 Standard deviation- 50 In target -38.1% (70-180) High range-61.9% (>180) Seriously high-15.9% (>250) Low <70=0% Very low 0.0% (<54) 80.3% time CGM active. Interpretation: Worsening hyperglycemia since she stopped smoking. Insulin pump adjusted. documented in this encounter Plan of Treatment Not on file documented as of this encounter Procedures Procedure Name Priority Date/Time Associated Diagnosis Comments POCT GLUCOSE Routine 05/12/2020 2:07 PM CDT Type 2 diabetes mellitus with hyperglycemia, with long-term current use of insulin ([facility]) POCT HEMOGLOBIN A1C Routine 05/12/2020 2 :06 PM CDT Type 2 diabetes mellitus with hyperglycemia, with long-term current use of insulin ([facility]) documented in this encounter Results * POCT glucose (05/12/2020 2:07 PM CDT) Glucose Blood, POC 179 mg/dL Blood specimen (specimen) 05/12/2020 2:07 PM CDT us Marialuisa Tyson NP POINT OF CARE TEST ORDERABLES F inal Result * POCT hemoglobin A1c (05/12/2020 2:06 PM CDT) Hemoglobin A1C, POC 8.4 Blood specimen (specimen) 05/12/2020 2:06 PM CDT us Marialuisa Tyson GREEN CHAINER POINT OF CARE TEST ORDERABLES F inal Result documented in this encounter Visit Diagnoses Diagnosis Type 2 diabetes mellitus with hyperglycemia, with long-term current use of insulin (HCC)- Primary Insulin pump titration Fitting and adjustment of insulin pump Former cigarette smoker Personal history of tobacco use, presenting hazards to health documented in this encounter Historical Medications * This list may reflect changes made after this encounter. famotidine (PEPCID) 20 mg tablet Take 1 tablet (20 mg total) by mouth 2 (two) times a day 04/25/2020 added in this encounter Care Teams Steam Pan Sponger Relationship Specialty [place] [address] [place] [id number] PCP - General Physician Postal Supervisor 08/19/19 07/06/20 documented as of this encounter
--- OUTSIDE RECORDS SUMMARY | 2024-03-03 15:37 | XMS_ITS | Encounter Summary ---
Author Organization [facility] Address [address] [place] [address] Care Team Providers Care Institutional Cook Name Role Phone Eron Holliday NP Primary Care Provider [phone] Encounter Details Date Type Department Care Team (Late st Contact Info) Description 08/14/2021 Telephone [facility] of [address] [place] [address] Marialuisa Daniel, CHRISTOPHER [address] [facility] [address] [place] [address] Social History Tobacco Use Types Packs/Day Years Used Date Smoking Tobacco: Every Day Cigarettes Last attempted to quit: 03/20/2020 Smokeless Tobacco: Never Comments No Sex and Gender Information Value Date Recorded Sex Assigned at Not on file Legal Sex Female 8:53 AM SAP 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 She is also going to let her PCP know aboutthe BP today * Telephone Encounter - Simental, Hanchristophermendy - 08/14/2021 11:33 AM CDT Pt states she went to have a tooth pulled at the dentist and said they would not pull it because her blood pressure was too high. She said it was reading the followin/97 then 170/108 third reading 160/103 She is asking what her last A1c was so she can tell her dentist. Please advise. documented in this encounter Plan of Treatment Not on file documented as of this encounter Visit Diagnoses Not on filedocumented in this encounter Care Teams Institutional Cook Relationship Specialty Start Date End Date Eron Holliday NP [address] [facility] [place] [address] PCP - General 06/28/21 05/08/22 documented as of this encounter
--- OUTSIDE RECORDS SUMMARY | 2024-03-03 15:38 | XMS_ITS | Encounter Summary ---
Author Organization [facility] Address [address] [facility] [address] [facility] [address] [place] [address] Care Team Providers Care Ampoule Filler Name Role Phone Vilma Herrera Primary Care Provider [phone] Encounter Details Date Type Department Care Team (Late st Contact Info) Description 01/19/2020 Telephone [facility] of [address] [place] [address] Marialuisa Daniel, BOG WORKER [address] [address] Social History Tobacco Use Types Packs/Day Years Used Date Smoking Tobacco: Every Day Smokeless Tobacco: Never Comments Unknown Sex and Gender Information Value Date Recorded Sex Assigned at Not on file Legal Sex Female 8:53 AM DIET KITCHEN COOK Gender Identity Female 12/26/2023 10:11 PM CDT Sexual Orientation Straight 12/26/2023 10 :11 PM CDT documented as of this encounter Miscellaneous Notes * Telephone Encounter - Corinna Wright MA - 01/19/2020 10:06 AM CST Please see message below and advise KITCHEN COOK * Telephone Encounter - Mallory Joseph MA - 01/19/2020 9:13 AM CST Patient calling stating she was recently put on the medtronic pump and wants to know if she can be put on a different one because she is not liking the components of the medtronic pump. Patient states its mostly the sensor that she does not like do to it not being accurate KITCHEN COOK documented in this encounter Plan of Treatment Not on file documented as of this encounter Visit Diagnoses Not on filedocumented in this encounter Care Teams Ampoule Filler Relationship Specialty Start Date End Date Vilma Herrera PA [address] [place] [address] PCP - General Physician Absorption And Adsorption Engineer 08/19/19 07/06/20 documented as of this encounter
--- OUTSIDE RECORDS SUMMARY | 2024-03-03 15:38 | XMS_ITS | Encounter Summary ---
Author Organization [facility] Address [address] [facility] [place] [address] Care Team Providers Care Weight And Test Bar Clerk Name Role Phone Dewayne Cedillo MD Primary Care Provider Vilma Herrera Primary Care Provider [phone] Encounter Details Date Type Department Care Team (Late st Contact Info) Description 06/03/2017 Orders Only [facility] of [address] [place] [address] Lorne Mcginnis MD [address] [place] [address] [address] [place] [address] Social History Tobacco Use Types Packs/Day Years Used Date Smoking Tobacco: Every Day Smokeless Tobacco: Never Comments Unknown Sex and Gender Information Value Date Recorded Sex Assigned at Not on file Legal Sex Female 8:53 AM VETERINARY INSPECTOR Gender Identity Female 12/26/2023 10:11 PM CDT Sexual Orientation Straight 12/26/2023 10 :11 PM CDT COVID-19 Exposure Response Date Recorded In the last month, have you been in contact with someone who was confirmed or suspected to have Coronavirus / COVID-19? No / Unsure 05/24/2019 2:22 PM CDT documented as of this encounter Plan of Treatment Not on file documented as of this encounter Procedures Procedure Name Priority Date/Time Associated Diagnosis Comments SCAN - LABS 06/03/2017 10:22 AM CDT documented in this encounter Results * SCAN - LABS (06/03/2017 10:22 AM CDT) Lorne Mcginnis MD Final Result documented in this encounter Visit Diagnoses Not on filedocumented in this encounter Care Teams Weight And Test Bar Clerk Relationship Specialty Start Date End Date Dewayne Cedillo MD [address] [place] [address] [address] [place] [address] PCP - General Internal Medicine 04/02/17 08/18/19 Vilma Herrera PA [address] [place] [id number] PCP - General Physician Embedded Nurse 08/19/19 07/06/20 documented as of this encounter
--- OUTSIDE RECORDS SUMMARY | 2024-03-03 15:38 | XMS_ITS | Encounter Summary ---
Author Organization [facility] Address [address] [place] [address] Care Team Providers Care Salesperson Recreational Vehicles Name Role Phone Vilma Herrera Primary Care Provider [phone] Encounter Details Date Type Department Care Team (Late st Contact Info) Description 01/07/2020 Telephone [facility] of [address] [place] [address] Marialuisa Daniel, CHRISTOPHER [address] [address] Social History Tobacco Use Types Packs/Day Years Used Date Smoking Tobacco: Every Day Smokeless Tobacco: Never Comments Unknown Sex and Gender Information Value Date Recorded Sex Assigned at Not on file Legal Sex Female 8:53 AM REPAIR ORDER CLERK Gender Identity Female 12/26/2023 10:11 PM CDT Sexual Orientation Straight 12/26/2023 10 :11 PM CDT documented as of this encounter Miscellaneous Notes * Telephone Encounter - Marialuisa Daniel NP - 01/10/2020 4:49 PM CST I sent pump changes to Brenda Floyd. She will contact patient and make the adjustments. Marialuisa IR ORDER CLERK * Telephone Encounter - Corinna Wright MA - 01/07/2020 4:41 PM CST I have called patient. She is going to work on this and try again on Friday. Patient is also going to join My Chart and send us info that way IR ORDER CLERK * Telephone Encounter - Catherine Brown - 01/07/2020 3:13 PM CST Logged into Dexcom and pt is in the system but is not sharing. Pt needs to share before I can download without having the devise. IR ORDER CLERK * Telephone Encounter - Corinna Wright MA - 01/07/2020 2:10 PM CST Can you please download this. IR ORDER CLERK * Telephone Encounter - Eulalio Simental - 01/07/2020 1:16 PM CST Pt states she just uploaded all of her blood sugar readings into the computer system for Marialuisa to see. She states she has been having high readings in the mornings since being on the insulin pump. Please advise. IR ORDER CLERK documented in this encounter Plan of Treatment Not on file documented as of this encounter Visit Diagnoses Not on filedocumented in this encounter Care Teams Salesperson Recreational Vehicles Relationship Specialty Start Date End Date Vilma Herrera PA [address] [place] [address] PCP - General Physician Geophysical Prospecting Permit Agent 08/19/19 07/06/20 documented as of this encounter
--- OUTSIDE RECORDS SUMMARY | 2024-03-03 15:38 | XMS_ITS | Encounter Summary ---
Author Organization [facility] Address [address] [facility] [address] [place] [address] Care Team Providers Care Lumber Tailer Name Role Phone Vilma Herrera Primary Care Provider [phone] Encounter Details Date Type Department Care Team (Late st Contact Info) Description 09/27/2019 Telephone [facility] of [address] [place] [address] Marialuisa Daniel NP [address] [address] Social History Tobacco Use Types Packs/Day Years Used Date Smoking Tobacco: Every Day Smokeless Tobacco: Never Comments Unknown Sex and Gender Information Value Date Recorded Sex Assigned at Not on file Legal Sex Female 8:53 AM CARDIAC EXERCISE PHYSIOLOGIST Gender Identity Female 12/26/2023 10:11 PM CDT Sexual Orientation Straight 12/26/2023 10 :11 PM CDT documented as of this encounter Miscellaneous Notes * Telephone Encounter - Marialuisa Daniel NP - 09/27/2019 9:27 AM CDT Call patient with CMP results. I recommended she be evaluated by nephrology. Referral sent for Dr. Brooke Becerra [address] [place], [place] [address]Alonzo documented in this encounter Plan of Treatment Not on file documented as of this encounter Visit Diagnoses Diagnosis Uncontrolled type 2 diabetes mellitus with hyperglycemia, with long-term current use of insulin (HCC)- Primary documented in this encounter Care Teams Lumber Tailer Relationship Specialty Start Date End Date Vilma Herrera PA [address] [place] [address] PCP - General Physician Cargo Mate 08/19/19 07/06/20 documented as of this encounter
--- OUTSIDE RECORDS SUMMARY | 2024-03-03 15:38 | XMS_ITS | Encounter Summary ---
Author Organization [facility] Address [address] [facility] [address] [place] [address] Care Team Providers Care Instructor Wastewater Treatment Plant Name Role Phone Dewayne Cedillo MD Primary Care Provider Vilma Herrera Primary Care Provider [phone] Encounter Details Date Type Department Care Team (Late st Contact Info) Description 04/07/2017 Orders Only [facility] Information Management [address] [place] [address] Scanning, Provider Social History Tobacco Use Types Packs/Day Years Used Date Smoking Tobacco: Every Day Smokeless Tobacco: Never Comments Unknown Sex and Gender Information Value Date Recorded Sex Assigned at Not on file Legal Sex Female 8:53 AM BILINGUAL TEACHER AIDE Gender Identity Female 12/26/2023 10:11 PM CDT [...] Date/Time Associated Diagnosis Comments SCAN - LABS 04/07/2017 1:38 PM BILINGUAL TEACHER AIDE documented in this encounter Results * SCAN - LABS (04/07/2017 1:38 PM BILINGUAL TEACHER AIDE) us Provider Scanning Final Result documented in this encounter Visit Diagnoses Not on filedocumented in this encounter Care Teams Instructor Wastewater Treatment Plant Relationship Specialty Start [place] [address] [place] [address] [address] [place] [address] PCP - General Internal Medicine 04/02/17 08/18/19 Vilma Herrera PA [address] [place] [id number] PCP - General Physician Top Loader 08/19/19 07/06/20 documented as of this encounter
--- OUTSIDE RECORDS SUMMARY | 2024-03-03 15:38 | XMS_ITS | Encounter Summary ---
Author Organization [facility] Medical [facility] Address [address] [facility] [facility] [address] [place] [address] Care Team Providers Care Thermodynamicist Name Role Phone Vilma Herrera Primary Care Provider [phone] Reason for Visit * Reason Onset Date Comments Med Refill 12/30/2019 Encounter Details Date Type Department Care Team (Late st Contact Info) Description 12/30/2019 Telephone [facility] of [address] [place] [address] [place] [address] [place] [address] Med Refill Social History Tobacco Use Types Packs/Day Years Used Date Smoking Tobacco: Every Day Smokeless Tobacco: Never Comments Unknown Sex and Gender Information Value Date Recorded Sex Assigned at Not on file Legal Sex Female 8:53 AM LICENSED OCCUPATIONAL THERAPIST Gender Identity Female 12/26/2023 10:11 PM CDT Sexual Orientation Straight 12/26/2023 10 :11 PM CDT documented as of this encounter Miscellaneous Notes * Telephone Encounter - Allyssa Avina MA - 12/30/2019 9:35 AM CST Sent pended test strips Rx to [facility] for approval. Please advise, thank you NSED OCCUPATIONAL THERAPIST * Telephone Encounter - Carrie Milian - 12/30/2019 8:41 AM CST Pt calling stating she is on a pump that has a continuous glucose meter. She tests her sugars BID. She needs strips for the meter. They are contour next. [facility] NSED OCCUPATIONAL THERAPIST documented in this encounter Plan of Treatment Not on file documented as of this encounter Visit Diagnoses Not on filedocumented in this encounter Care Teams Thermodynamicist Relationship Specialty Start Date End Date Vilma Herrera PA [address] [place] [address] PCP - General Physician Pediatric Assistant 08/19/19 07/06/20 documented as of this encounter
--- OUTSIDE RECORDS SUMMARY | 2024-03-03 15:38 | XMS_ITS | Encounter Summary ---
Author Organization [facility] Medical Group Address [address] [facility] [address] [place] [address] Care Team Providers Care Cash Checker Name Role Phone Vilma Herrera Primary Care Provider [phone] Encounter Details Date Type Department Care Team (Late st Contact Info) Description 02/14/2020 Telephone [facility] of [address] [place] [address] Lorne Mcginnis MD [address] [place] [address] [address] [place] [address] Social History Tobacco Use Types Packs/Day Years Used Date Smoking Tobacco: Every Day Smokeless Tobacco: Never Comments Unknown Sex and Gender Information Value Date Recorded Sex Assigned at Not on file Legal Sex Female 8:53 AM FOREST SUPERVISOR Gender Identity Female 12/26/2023 10:11 PM CDT Sexual Orientation Straight 12/26/2023 10 :11 PM CDT documented as of this encounter Miscellaneous Notes * Telephone Encounter - Gina Bermudez - 02/15/2020 8:49 AM CST Pt aware ST SUPERVISOR * Telephone Encounter - Corinna Wright MA - 02/15/2020 8:[address] SUPERVISOR * Telephone Encounter - Marialuisa Daniel NP - 02/15/2020 8:01 AM CST Yes, Trulicity is in a different concentration. It is 1.5mg/0.5ml. Please let Sandy know. 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 Thanks Marialuisa ST SUPERVISOR * Telephone Encounter - Corinna Wright MA - 02/14/2020 4:40 PM CST Please see patient message and advise ST SUPERVISOR * Telephone Encounter - Armida Saeed - 02/14/2020 4:29 PM CST Marialuisa - Pt says the directions on her Trulicity are different than what Marialuisa told her to do. She thought it was 1 mL per wk but the rx label says .5 once a week. Please clarify for the pt. Please advise. ST SUPERVISOR documented in this encounter Plan of Treatment Not on file documented as of this encounter Visit Diagnoses Not on filedocumented in this encounter Care Teams Cash Checker Relationship Specialty Start Date End Date Vilma Herrera PA [address] [place] [address] PCP - General Physician Supervisor [place] 08/19/19 07/06/20 documented as of this encounter
--- OUTSIDE RECORDS SUMMARY | 2024-03-03 15:38 | XMS_ITS | Encounter Summary ---
Author Organization [facility] Medical Group Address [address] [facility] [address] [place] [address] Care Team Providers Care Transformer Mechanic Name Role Phone Dewayne Cedillo MD Primary Care Provider Reason for Visit * Reason Onset Date Comments Test strips 07/04/2017 Encounter Details Date Type Department Care Team (Late st Contact Info) Description 07/04/2017 Telephone [facility] of [address] [place] [address] Dewayne Cedillo MD [address] [place] [address] Test strips Social History Tobacco Use Types Packs/Day Years Used Date Smoking Tobacco: Every Day Smokeless Tobacco: Never Comments Unknown Sex and Gender Information Value Date Recorded Sex Assigned at Not on file Legal Sex Female 8:53 AM TALENT DEVELOPMENT COORDINATOR Gender Identity Female 12/26/2023 10:11 PM CDT Sexual Orientation Straight 12/26/2023 10 :11 PM CDT documented as of this encounter Ordered Prescriptions Prescription Sig Dispense Quantity Refills Last Filled Start Date End Date lancets (ACCU-CHEK MULTICLIX LANCET) miscIndications:Un controlled type 2 diabetes mellitus with hyperglycemia, with long-term current use of insulin (HCC) Check blood sugar four times a day or as directed 1 each 11 07/04/2017 1 blood glucose diagnostic (glucose blood) stripIndications:U ncontrolled type 2 diabetes mellitus with hyperglycemia, with long-term current use of insulin (HCC) Check blood sugar four times a day or as directed 300 each 11 07/04/2017 0 blood-glucose meter kitIndications:Unc ontrolled type 2 diabetes mellitus with hyperglycemia, with long-term current use of insulin (HCC) Use daily or as directed for monitoring of diabetes 1 each 07/04/2017 4 documented in this encounter Miscellaneous Notes * Telephone Encounter - Lorne Mcginnis MD - 07/04/2017 10:02 AM CDT Yes , we can send for these supplies with strips to check sugars 3-4 x per day . * Telephone Encounter - Delmy Bender MA - 07/04/2017 8:32 AM CDT Insurance will not cover the One touch ultra blue. Their suggestions are Accu-chek. Would you like for me to send in a starter kit with strips and lancets? documented in this encounter Plan of Treatment Not on file documented as of this encounter Visit Diagnoses Diagnosis Uncontrolled type 2 diabetes mellitus with hyperglycemia, with long-term current use of insulin (HCC)- Primary documented in this encounter Discontinued Medications Medication Sig Discontinue Reason Start Date End Da te lancets (ONETOUCH DELICA LANCETS) 33 gauge misc Use to check glucose 4 x daily Formulary change 04/09/2017 07/04/2017 blood-glucose meter (ONETOUCH ULTRA2) kit Use to check glucose 4 x daily Formulary change 04/09/2017 07/04/2017 ONETOUCH ULTRA TEST strip Use to check glucose 4 x daily Formulary change 04/09/2017 07/04/2017 documented as of this encounter Care Teams Transformer Mechanic Relationship Specialty Start Date End Date Dewayne Cedillo MD [address] [place] [address] PCP - General Internal Medicine 04/02/17 08/18/19 documented as of this encounter
--- OUTSIDE RECORDS SUMMARY | 2024-03-03 15:38 | XMS_ITS | Encounter Summary ---
Author Organization [facility] Medical Group Address [address] [facility] [address] [place] [address] Care Team Providers Care Marketing Manager Name Role Phone Vilma Herrera Primary Care Provider [phone] Encounter Details Date Type Department Care Team (Late st Contact Info) Description 12/03/2019 Telephone [facility] of [address] [place] [address] Marialuisa Daniel, WEB FEEDER [address] [address] Social History Tobacco Use Types Packs/Day Years Used Date Smoking Tobacco: Every Day Smokeless Tobacco: Never Comments Unknown Sex and Gender Information Value Date Recorded Sex Assigned at Not on file Legal Sex Female 8:53 AM WET CHAR CONVEYOR TENDER Gender Identity Female 12/26/2023 10:11 PM CDT Sexual Orientation Straight 12/26/2023 10 :11 PM CDT documented as of this encounter Miscellaneous Notes * Telephone Encounter - Allyssa Avina MA - 12/03/2019 1:57 PM CDT Resending referral to Dr. Bhagat office * Telephone Encounter - Eulalio Simental - 12/03/2019 11:32 AM CDT Pt states she called Dr. Bhagat office this morning and they are saying that they did not receive pt referral so they would not jj pt an appt. Pt verified fax number #[phone] but they still say they cannot find it. Please advise. documented in this encounter Plan of Treatment Not on file documented as of this encounter Visit Diagnoses Not on filedocumented in this encounter Care Teams Marketing Manager Relationship Specialty Start Date End Date Vilma Herrera PA [address] [place] [address] PCP - General Physician Manager File 08/19/19 07/06/20 documented as of this encounter
--- OUTSIDE RECORDS SUMMARY | 2024-03-03 15:38 | XMS_ITS | Encounter Summary ---
Author Organization [facility] Medical Group Address [address] [facility] [address] [place] [address] Care Team Providers Care Pitch Worker Name Role Phone Dewayne Cedillo MD Primary Care Provider Vilma Herrera Primary Care Provider [phone] Encounter Details Date Type Department Care Team (Late st Contact Info) Description 05/23/2017 Orders Only Diabetes and Endocrine Care of [address] [place] [address] Lorne Mcginnis MD [address] [place] [address] [address] [place] [address] Social History Tobacco Use Types Packs/Day Years Used Date Smoking Tobacco: Every Day Smokeless Tobacco: Never Comments Unknown Sex and Gender Information Value Date Recorded Sex Assigned at Not on file Legal Sex Female 8:53 AM TELECOM SALES CONSULTANT Gender Identity Female 12/26/2023 10:11 PM [...] Date/Time Associated Diagnosis Comments SCAN - LABS 05/23/2017 8:27 AM CDT documented in this encounter Results * SCAN - LABS (05/23/2017 8:27 AM CDT) Lorne Mcginnis MD Final Result documented in this encounter Visit Diagnoses Not on filedocumented in this encounter Care Teams Pitch Worker Relationship Specialty Start Date End Date Dewayne Cedillo MD [address] [place] [address] [address] [place] [address] PCP - General Internal Medicine 04/02/17 08/18/19 Vilma Herrera PA [address] [place] [address] PCP - General Physician Prosthetics Lab Technician 08/19/19 07/06/20 documented as of this encounter
--- OUTSIDE RECORDS SUMMARY | 2024-03-03 15:38 | XMS_ITS | Encounter Summary ---
Author Organization [facility] Medical Group Address [address] [facility] [address] [place] [address] Care Team Providers Care Adult Neuropsychologist Name Role Phone Dewayne Cedillo MD Primary Care Provider Reason for Visit * Reason Comments Diabetes Encounter Details Date Type Department Care Team (Late st Contact Info) Description 04/03/2017 11:15 AM CLINICAL PHARMACIST Office Visit [facility] of [address] [place] [address] Lorne Mcginnis MD [address] [place] [address] [address] [place] [address] Uncontrolled type 2 diabetes mellitus with hyperglycemia, with long-term current use of insulin ([facility]) (Primary Dx) Social History Tobacco Use Types Packs/Day Years Used Date Smoking Tobacco: Every Day Smokeless Tobacco: Never Comments Unknown Sex and Gender Information Value Date Recorded Sex Assigned at Not on file Legal Sex Female 8:53 AM CLINICAL PHARMACIST Gender Identity Female 12/26/2023 10:11 PM CDT Sexual Orientation Straight 12/26/2023 10 :11 PM CDT documented as of this encounter Last Filed Vital Signs Vital Sign Reading Time Taken Comments Blood Pressure 126/72 04/03/2017 11:16 AM CLINICAL PHARMACIST Pulse - - Temperature - - Respiratory Rate - - Oxygen Saturation - - Inhaled Oxygen Concentration - - Weight 97.5 kg (215 lb) 04/03/2017 11:16 AM CLINICAL PHARMACIST Height 165.1 cm (5' 5 ) 04/03/2017 11:16 AM CLINICAL PHARMACIST Body Mass Index 35.78 04/03/2017 11:16 AM CLINICAL PHARMACIST documented in this encounter Progress Notes * Lorne Mcginnis MD - 04/03/2017 11:15 AM CST Subjective/Objective Patient ID: Sandy Lopez is a 51 y.o. female. Chief Complaint Diabetes 51 years old female, referred for treatment of diabetes. She moved from [place] She was diagnosed with diabetes at the age of 14, and has been on insulin since the age of 27 She is on lantus insulin 40 U Qam, Apidra insulin 1:10 car ratio with meals. Metformin 4 tab Qam and jardiance 10 mg /day. She has been off Tanzium for few month She checks sugars 2-3 x per day and sugars are 180-380. She has been off diet and gained 10 lbs in last 2 month. Diabetes This is a chronic problem. Associated symptoms include arthralgias, fatigue and numbness. Pertinentnegatives include no abdominal pain, coughing, nausea, rash, urinary symptoms or vomiting. Review of Systems Constitutional: Positive for fatigue. Negative for unexpected weight change. Eyes: Negative for visual disturbance. Respiratory: Negative for cough and wheezing. Cardiovascular: Negative for palpitations and leg swelling. Gastrointestinal: Negative for abdominal pain, constipation, diarrhea, nausea and vomiting. Endocrine: Negative for polydipsia and polyuria. No hypoglycemia Genitourinary: Negative for frequency. Musculoskeletal: Positive for arthralgias and back pain. Skin: Negative for rash and wound. Neurological: Positive for numbness. Negative for light-headedness. Psychiatric/Behavioral: The patient is nervous/anxious. Physical Exam Constitutional: She appears well-developed and well-nourished. No distress. Eyes: Conjunctivae and EOM are normal. Neck: Normal range of motion. Neck supple. No thyromegaly present. Cardiovascular: Normal rate, regular rhythm and normal heart sounds. Pulses: Posterior tibial pulses are 2+ on the right side, and 2+ on the left side. Pulmonary/Chest: Breath sounds normal. Abdominal: Soft. Bowel sounds are normal. Musculoskeletal: She exhibits no edema. Right foot: There is no deformity. Left foot: There is no deformity. Feet: Right Foot: Skin Integrity: Negative for ulcer. Left Foot: Skin Integrity: Negative for ulcer. Assessment/Plan Diagnoses and all orders for this visit: Uncontrolled type 2 diabetes mellitus with hyperglycemia, with long-term current use of insulin ([facility]) (Primary) Diagnosed at the age of 14, was was on oral agents till the age of 27 . Control : poor control with A1c 11% on 03/21/17 due to non-compliance with diet and weight gain. Kidney: normal kidney functions in February, on Lisinopril. Neuropathy : mild. Eye : reports history of retinopathy. Plan: Patient to watch diet and work on weight loss. Continue same dose of lantus. Increase Apidra to 1:5 carb ratio. Continue jariance and metformin. Stay off tanzeum. Monitor sugars 3 -4 x per day and bring records. Hypoglycemia symptoms and treatment reviewed with patient. Call if having low sugars. Ophthalmology exam on regular basis. ICAL PHARMACIST documented in this encounter Plan of Treatment Not on file documented as of this encounter Procedures Procedure Name Priority Date/Time Associated Diagnosis Comments DIABETES FOOT EXAM Routine 04/03/2017 URINE MICROALBUMNIN Routine 03/22/2017 LIPID PANEL Routine 03/22/2017 HEMOGLOBIN A1C Routine 03/22/2017 documented in this encounter Results * DIABETES FOOT EXAM (04/03/2017) [facility]ologist [facility] Diabetic Foot Exam Unknown Historical Provider HEALTH MAINTENANCE Final Result * URINE MICROALBUMNIN (03/22/2017) Pathologist [facility] SCRIBED Microalbumin 54.7 Historical Provider HEALTH MAINTENANCE Final Result * LIPID PANEL (03/22/2017) [facility]ologist [facility] Lipid Panel Unknown Comment:LDL 205 Historical Provider HEALTH MAINTENANCE Final Result * HEMOGLOBIN A1C (03/22/2017) SCRIBED Hemoglobin A1c 11.0 us Historical Provider HEALTH MAINTENANCE Final Result documented in this encounter Visit Diagnoses Diagnosis Uncontrolled type 2 diabetes mellitus with hyperglycemia, with long-term current use of insulin (HCC)- Primary documented in this encounter Historical Medications * This list may reflect changes made after this encounter. venlafaxine (EFFEXOR) 100 mg tablet Take 100 mg by mouth 2 (two) times a day. 08/19/2019 albiglutide (TANZEUM) 50 mg/0.5 mL pen injector Inject 50 mg under the skin every 7 days. 08/19/[address] (NexIUM) 40 mg capsule Take 40 mg by mouth daily before breakfast. 08/19/2019 metFORMIN (GLUMETZA) 500 mg 24 hr tablet Take 500 mg by mouth 4 (four) times a day. 11/08/2019 lisinopril (PRINIVIL,ZESTRIL ) 10 mg tablet Take 10 mg by mouth daily. 02/11/2020 insulin glargine (LANTUS SOLOSTAR) 100 unit/mL (3 mL) insulin pen 0 empagliflozin (JARDIANCE) 10 mg tabletIndications :type 2 diabetes mellitus 10 mg daily. 08/19/2019 hydroCHLOROthiazi de (HYDRODIURIL) 12.5 mg tablet Take 12.5 mg by mouth daily. 06/01/2021 citalopram (CeleXA) 40 mg tablet Take 20 mg by mouth daily 12/28/2021 INSULIN GLULISINE (APIDRA SUBQ) Inject under the skin. 08/19/2019 added in this encounter Care Teams Adult Neuropsychologist Relationship Specialty Start Date End Date Dewayne Cedillo MD [address] [facility] [address] [place] [address] PCP - General Internal Medicine 04/02/17 08/18/19 documented as of this encounter
--- OUTSIDE RECORDS SUMMARY | 2024-03-03 15:38 | XMS_ITS | Encounter Summary ---
Author Organization [facility] Care Team Providers Care Drafting Supervisor Name Role Phone Dewayne Cedillo MD Primary Care Provider Encounter Details Date Type Department Care Team (Latest Contact Info) Description 05/24/2019 Travel Social History Tobacco Use Types Packs/Day Years Used Date Smoking Tobacco: Every Day Smokeless Tobacco: Never Comments Unknown Sex and Gender Information Value Date Recorded Sex Assigned at Not on file Legal Sex Female 8:53 AM ANESTHESIOLOGIST PHYSICIAN Gender Identity Female 12/26/2023 10:11 PM CDT [...] on filedocumented in this encounter Care Teams Drafting Supervisor Relationship Specialty Start Date End Date Dewayne Cedillo MD [address] [place] [address] PCP - General Internal Medicine 04/02/17 08/18/19 documented as of this encounter
--- OUTSIDE RECORDS SUMMARY | 2024-03-03 15:38 | XMS_ITS | Encounter Summary ---
Author Organization [facility] Medical Group Address [address] [facility] [address] [place] [address] Care Team Providers Care Press Department Manager Name Role Phone Vilma Herrera Primary Care Provider [phone] Encounter Details Date Type Department Care Team (Late st Contact Info) Description 12/14/2019 Telephone [facility] [address] [facility] [address] [place] [address] Vilma Herrera PA [address] [place] [address] Social History Tobacco Use Types Packs/Day Years Used Date Smoking Tobacco: Every Day Smokeless Tobacco: Never Comments Unknown Sex and Gender Information Value Date Recorded Sex Assigned at Not on file Legal Sex Female 8:53 AM RN ACUTE DIALYSIS Gender Identity Female 12/26/2023 10:11 PM CDT [...] insulin pump. Max daily dose 75 units. 30 mL 3 12/14/2019 1 documented in this encounter Miscellaneous Notes * Telephone Encounter - Marialuisa Daniel, DIGITAL FORENSICS INVESTIGATOR - 12/14/2019 11:19 AM CDT Returned call to patient. [employer] pump training is with Ashley Metz. Novolog insulin vial was called into [facility]. * Telephone Encounter - Allyssa Avina MA - 12/14/2019 10:39 AM CDT Please advise, thank you * Telephone Encounter - Carrie Milian - 12/14/2019 10:10 AM CDT Pt calling and states that she is supposed to be training on her Medtronics pump on 12-17-2019. Sheis not sure if Marialuisa is supposed to be there, or a [employer] person? She also states that she still does not have the insulin for the pump. Please advise. documented in this encounter Plan of Treatment Not on file documented as of this encounter Visit Diagnoses Diagnosis Type 2 diabetes mellitus with microalbuminuria, with long-term current use of insulin (HCC)- Primary documented in this encounter Care Teams Press Department Manager Relationship Specialty Start Date End Date Vilma Herrera PA [address] [place] [address] PCP - General Physician Fire Lieutenant Marine 08/19/19 07/06/20 documented as of this encounter
--- OUTSIDE RECORDS SUMMARY | 2024-03-03 15:38 | XMS_ITS | Encounter Summary ---
Author Organization [facility] Medical Group Address [address] [facility] [address] [place] [address] Care Team Providers Care Plasma Table Operator Name Role Phone Vilma Herrera Primary Care Provider [phone] Encounter Details Date Type Department Care Team (Late st Contact Info) Description 01/24/2020 Orders Only Diabetes and Endocrine Care of [address] [place] [address] Marialuisa Daniel, EMERGENCY VETERINARY TECHNICIAN [address] [facility] [address] [place] [address] Type 2 diabetes mellitus with hyperglycemia, with long-term current use of insulin ([facility]) (Primary Dx) Social History Tobacco Use Types Packs/Day Years Used Date Smoking Tobacco: Every Day Smokeless Tobacco: Never Comments Unknown Sex and Gender Information Value Date Recorded Sex Assigned at Not on file Legal Sex Female 8:53 AM DIRECTOR OF LOGISTICS Gender Identity Female 12/26/2023 10:11 PM CDT Sexual Orientation Straight 12/26/2023 10 :11 PM CDT documented as of this encounter Ordered Prescriptions Prescription Sig Dispense Quantity Refills Last Filled Start Date End Date blood-glucose meter,continuous (Dexcom G6 Fiber Picker) miscIndications:t ype 2 diabetes mellitus 1 Device continuously 1 each 1 01/24/2020 2 blood-glucose transmitter (Dexcom G6 Transmitter) deviceIndications :type 2 diabetes mellitus 1 Device continuously USE DEVICE CONTINUOUSLY FOR 10 DAYS 1 Device 11 01/24/2020 2 blood-glucose sensor (Dexcom G6 Sensor) deviceIndications :type 2 diabetes mellitus 1 Device continuously 1 Device 3 01/24/2020 1 documented in this encounter Progress Notes * Marialuisa Daniel NP - 01/24/2020 2:47 PM CST Images from the original note were not included. Having problems with Medtronic sensor and wants to go back to DexCom 6. Prescriptions sent. Marialuisa Daniel NP CTOR OF LOGISTICS documented in this encounter Plan of Treatment Not on file documented as of this encounter Visit Diagnoses Diagnosis Type 2 diabetes mellitus with hyperglycemia, with long-term current use of insulin (HCC)- Primary documented in this encounter Care Teams Plasma Table Operator Relationship Specialty Start [place] [address] [place] [address] PCP - General Physician Closet Organizer 08/19/19 07/06/20 documented as of this encounter
--- OUTSIDE RECORDS SUMMARY | 2024-03-03 15:38 | XMS_ITS | Encounter Summary ---
Author Organization [facility] Medical Group Address [address] [facility] [address] [place] [address] Care Team Providers Care Senior Account Representative Name Role Phone Vilma Herrera Primary Care Provider [phone] Encounter Details Date Type Department Care Team (Late st Contact Info) Description 08/20/2019 Orders Only [facility] of [address] [place] [address] Marialuisa Daniel, DIRECTIONAL SURVEY DRAFTER [address] [facility] [address] [place] [address] Type 2 diabetes mellitus (CMS/HCC) (Primary Dx) Social History Tobacco Use Types Packs/Day Years Used Date Smoking Tobacco: Every Day Smokeless Tobacco: Never Comments Unknown Sex and Gender Information Value Date Recorded Sex Assigned at Not on file 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 Gender Identity Female 12/26/2023 10:11 PM CDT Sexual Orientation Straight 12/26/2023 10 :11 PM CDT documented as of this encounter Miscellaneous Notes * Addendum Note - Melba Quevedo CLT - 08/20/2019 9:35 AM CDTAddended by: MELBA QUEVEDO on: 09/13/2019 12:02 PM Modules accepted: Orders documented in this encounter Plan of Treatment Not on file documented as of this encounter Results * (ABNORMAL) Hemoglobin A1c (09/13/2019 12:02 PM CDT) Hgb A1C 7.7(H) 4.0 - 5.6 % OLIVIA SANTOYO ([place]) Estimated Average Glucose 174 mg/dL OLIVIA SATNOYO ([place]) Comment: The ADA recommends reporting an estimated Average Glucose (eAG) with all Hemoglobin A1c results using the equation derived from a study of 507 normal and diabetic adults. ??Minority populations were underrepresented and children were not included. ?? (Diabetes Care 31:9197-0468, 2008). ??The eAG is not equivalent to a fasting glucose. Blood specimen (specimen) 09/13/2019 12:02 PM CDT 09/13/2019 1:24 PM CDT us Marialuisa Daniel NP LAB BLOOD ORDERABLES Final Resu lt OLIVIA SANTOYO ([place]) 1 [facility] Department [place] [address] documented in this encounter Visit Diagnoses Diagnosis Type 2 diabetes mellitus (HCC)- Primary documented in this encounter Care Teams Senior Account Representative Relationship Specialty Start Date End Date Vilma Herrera PA [address] [place] [id number] PCP - General Physician Software Trainer 08/19/19 07/06/20 documented as of this encounter
--- OUTSIDE RECORDS SUMMARY | 2024-03-03 15:38 | XMS_ITS | Encounter Summary ---
Author Organization [facility] Medical Group Address [address] [facility] [address] [place] [address] Care Team Providers Care Block Making Machine Operator Name Role Phone Vilma Herrera Primary Care Provider [phone] Reason for Visit * Reason Comments Diabetes Type 2 Encounter Details Date Type Department Care Team (Late st Contact Info) Description 08/19/2019 4:00 PM CDT Office Visit [facility] of [address] [place] [address] Lorne Mcginnis MD [address] [place] [address] [address] [place] [address] Uncontrolled type 2 diabetes mellitus with hyperglycemia, with long-term current use of insulin ([facility]) (Primary Dx) Social History Tobacco Use Types Packs/Day Years Used Date Smoking Tobacco: Every Day Smokeless Tobacco: Never Comments Unknown Sex and Gender Information Value Date Recorded Sex Assigned at Not on file Legal 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 Gender Identity Female 12/26/2023 10:11 PM CDT Sexual Orientation Straight 12/26/2023 10 :11 PM CDT documented as of this encounter Last Filed Vital Signs Vital Sign Reading Time Taken Comments Blood Pressure 112/70 08/19/2019 4:32 PM CDT Pulse - - Temperature - - Respiratory Rate - - Oxygen Saturation - - Inhaled Oxygen Concentration - - Weight 109.2 kg (240 lb 11.2 oz) 08/19/2019 4:32 PM CDT Height 165.1 cm (5' 5 ) 08/19/2019 4:32 PM CDT Body Mass Index 40.05 08/19/2019 4:32 PM CDT documented in this encounter Patient Instructions * Patient Instructions* Marialuisa Daniel NP - 08/19/2019 4:00 PM CDT Thanks for coming in today. Medications: ??? Please take medications as prescribed. Continue on Metformin 1000mg po daily, Decrease the Basiglar to 35 units daily, Novolog 40 units 15 prior to meals. Add ozempic 0.25mg weekly for 4 weeks and then increase to 0.5mg weekly. Monitoring: Wearing Dexcom, please scan blood 4-6 times and record. Notify the office of blood sugar results. We will be requesting to see blood [...] a source of fast-acting carbohydrate with you. ??? Call office for questions or concerns. [phone] documented in this encounter Ordered Prescriptions Prescription Sig Dispense Quantity Refills Last Filled Start Date End Date semaglutide 0.25 mg or 0.5 mg(2 mg/1.5 mL) pen injectorIndication s:type 2 diabetes mellitus Inject 0.25 mg under the skin every 7 days Start at 0.25mg for 4 weeks, on week 5 increase to 0.5mg week 2 Syringe 4 08/19/2019 0 documented in this encounter Progress Notes * Marialuisa Daniel NP - 08/19/2019 4:00 PM CDT Images from the original note were not included. Subjective/Objective Patient ID: Sandy Lopez is a 54 y.o. female. Chief Complaint Diabetes Type 2 HPI Today visit is a follow up visit. She has not been seen in this office in the last 2 years. She hasType 2 Diabetes. She does not exercise. She previously saw Dr. Givens because she was on State insurance. She now has a job and has private insurance. She just recently purchased a [employer] com continues glucose monitor. Today she reports having hypoglycemic events after dinner and while asleep. Last nighther blood sugar was 63. She Smokes, and reports blockages in her legs. She is treated for this withPlavix and aspirin. Today's visit is to review labs and discuss future plan. Current Diabetes Medications include: Basaglar 38 units twice a day NovoLog 50 units 3 times a day with the correctional scale Metformin 1000 mg twice a day Review of Systems Constitutional: Negative for activity change, appetite change, fatigue and unexpected weight change. HENT: Negative for congestion and sinus pressure. Eyes: Negative for pain and visual disturbance. Respiratory: Negative for cough, shortness of breath and wheezing. Cardiovascular: Negative for chest pain and leg swelling. Gastrointestinal: Negative for constipation, diarrhea, nausea and vomiting. Endocrine: Negative for polydipsia, polyphagia and polyuria. Genitourinary: Negative for difficulty urinating and frequency. Musculoskeletal: Negative for arthralgias. Neurological: Negative for dizziness and numbness. Psychiatric/Behavioral: Negative for confusion. The patient is not nervous/anxious. Physical Exam Vitals signs and nursing note reviewed. Constitutional: General: She [...] are normal. Palpations: Abdomen is soft. Musculoskeletal: Normal range of motion. Feet: Right Foot: [...] and Affect: Mood normal. Behavior: Behavior normal. HGB-A1C 09/04/2018- 8.6 04/15/2018-12.2 11/03/2017-10.1 08/01/2017-11.2 LIPID- 173 ??total chol 30 ??HDL 102 ??LDL Assessment/Plan Diagnosed with Diabetes At age 14 Started insulin at age of 27 Diagnoses and all orders for this visit: Uncontrolled type 2 diabetes mellitus with hyperglycemia, with long-term current use of insulin ([facility]) (Primary) Assessment & Plan: [...] mg history of macrovascular disease - PVD eGRF > 60 on 12/30/2018 Patient Education: Discussing and educating on eating a healthy low carb diet, include fresh fruits and vegetables daily. Encouraged to try moving at least a total of 30 minutes/day. Just move more. Instructed to wash, dry lotion and check feet daily. Instructed to notify office if blood sugars are less than 80 or greater than 250 for 3 days Discussion of treatment plan and prescribed medications. Follow up 3 months Marialuisa Daniel NP documented in this encounter Miscellaneous Notes * Assessment & Plan Note - Marialuisa Daniel NP - 08/19/2019 5:22 PM CDTAssociated Problem(s): Uncontrolled type 2 diabetes mellitus with hyperglycemia, with long-term current use of insulin (HCC) (Resolved 02/11/2020) This is a chronic condition which is [...] mg history of macrovascular disease - PVD documented in this encounter Plan of Treatment Not on file documented as of this encounter Procedures Procedure Name Priority Date/Time Associated Diagnosis Comments POCT GLUCOSE Routine 08/19/2019 8:03 AM CDT Uncontrolled type 2 diabetes mellitus with hyperglycemia, with long-term current use of insulin ([facility]) documented in this encounter Results * POCT glucose (08/19/2019 8:03 AM CDT) Glucose Blood, POC 99 mg/dL Blood specimen (specimen) 08/19/2019 8:03 AM CDT Marialuisa Daniel NP POINT OF CARE TEST ORDERABLES F inal Result documented in this encounter Visit Diagnoses Diagnosis Uncontrolled type 2 diabetes mellitus with hyperglycemia, with long-term current use of insulin ([facility])- Primary documented in this encounter Discontinued Medications Medication Sig Discontinue Reason Start Date End Da te venlafaxine (EFFEXOR) 100 mg tablet Take 100 mg by mouth 2 (two) times a day. 08/19/2019 insulin glargine (LANTUS SOLOSTAR) 100 unit/mL (3 mL) insulin pen 08/19/2019 albiglutide (TANZEUM) 50 mg/0.5 mL pen injector Inject 50 mg under the skin every 7 days. Therapy completed 08/19/2019 empagliflozin (JARDIANCE) 10 mg tabletIndications:type 2 diabetes mellitus 10 mg daily. Therapy completed 08/19/[address] (NexIUM) 40 mg capsule Take 40 mg by mouth daily before breakfast. Therapy completed 08/19/2019 INSULIN GLULISINE (APIDRA SUBQ) Inject under the skin. Therapy completed 08/19/2019 documented as of this encounter Historical Medications * This list may reflect changes made after this encounter. clopidogreL (PLAVIX) 75 mg tablet Take 1 tablet (75 mg total) by mouth daily insulin syringe-needle U-100 1 mL 31 gauge x 5/16 syringe Twice a day 07/13/2018 aspirin 81 mg enteric coated tablet Take 1 tablet (81 mg total) by mouth daily 12/04/2018 zolpidem (AMBIEN) 10 mg tablet Take 1 tablet (10 mg total) by mouth nightly as needed insulin glargine (Basaglar KwikPen U-100 Insulin) 100 unit/mL (3 mL) insulin pen Inject 30 Units under the skin 2 (two) times a day 07/23/2019 10/06/2019 ezetimibe (ZETIA) 10 mg tablet 08/16/2019 02/01/2020 insulin aspart U-100 (NovoLOG U-100 Insulin aspart) 100 unit/mL injection Inject 25 Units under the skin 2 (two) times a day 08/16/2019 03/27/2020 norethindrone (AYGESTIN) 5 mg tablet Take 5 mg by mouth daily 04/12/2018 12/28/2021 atorvastatin (LIPITOR) 80 mg tablet TAKE 1 TABLET BY MOUTH DAILY 09/29/2018 11/08/2019 cetirizine (ZyrTEC) 10 mg tablet Take 1 tablet (10 mg total) by mouth daily 12/05/2018 09/22/2023 estradioL (ESTRACE) 0.5 mg tablet Take 1 tablet (0.5 mg total) by mouth daily 10/11/2018 10/06/2023 calcium carbonate-vitamin D3 (CALTRATE 600 + D) 1500 mg (600 mg elemental) -400 units per tablet Take 1 tablet by mouth 2 (two) times a day 10/15/2018 08/19/[address] (CYMBALTA) 30 mg capsule Take 30 mg by mouth daily 08/19/2020 added in this encounter Care Teams Block Making Machine Operator Relationship Specialty Start Date End Date Vilma Herrera PA [address] [place] [address] PCP - General Physician Manager Global Communications 08/19/19 07/06/20 documented as of this encounter
--- OUTSIDE RECORDS SUMMARY | 2024-03-03 15:38 | XMS_ITS | Encounter Summary ---
Author Organization [facility] Medical Group Address [address] [facility] [address] [place] [address] Care Team Providers Care Quantometer Operator Name Role Phone Vilma Herrera Primary Care Provider [phone] Reason for Visit * Reason Onset Date Comments Referral follow up 02/11/2020 Encounter Details Date Type Department Care Team (Late st Contact Info) Description 02/11/2020 Telephone [facility] and [facility] Care of [address] [place] [address] Lorne Mcginnis MD [address] [place] [address] Referral follow up Social History Tobacco Use Types Packs/Day Years Used Date Smoking Tobacco: Every Day Smokeless Tobacco: Never Comments Unknown Sex and Gender Information Value Date Recorded Sex Assigned at Not on file 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 Bhagat office to see what the status was on a referral made on patient. The office will take new referrals/new patients but they are not making appts until after the firstof the new Year. I informed NUCLEAR MEDICINE PET CT TECHNOLOGIST Fredy of this and she stated to call patient and let her know and tell her to make the appointment as soon as they can get her scheduled. I have called patient and she is aware. L SHEET ROLLER OPERATOR documented in this encounter Plan of Treatment Not on file documented as of this encounter Visit Diagnoses Not on filedocumented in this encounter Care Teams Quantometer Operator Relationship Specialty Start Date End Date Vilma Herrera PA [address] [place] [address] PCP - General Physician Utilization Management Um Nurse 08/19/19 07/06/20 documented as of this encounter
--- OUTSIDE RECORDS SUMMARY | 2024-03-03 15:38 | XMS_ITS | Encounter Summary ---
Author Organization [facility] Medical Group Address [address] [facility] [address] [place] [address] Care Team Providers Care Financial Consultant Name Role Phone Vilma Herrera Primary Care Provider [phone] Encounter Details Date Type Department Care Team (Late st Contact Info) Description 03/07/2020 Telephone [facility] of [address] [place] [address] Lorne Mcginnis MD [address] [place] [address] [address] [place] [address] Social History Tobacco Use Types Packs/Day Years Used Date Smoking Tobacco: Every Day Smokeless Tobacco: Never Comments Unknown Sex and Gender Information Value Date Recorded Sex Assigned at Not on file Legal Sex Female 8:53 AM MANAGER TRAINING Gender Identity Female 12/26/2023 10:11 PM CDT Sexual Orientation Straight 12/26/2023 10 :11 PM CDT documented as of this encounter Miscellaneous Notes * Telephone Encounter - Armida Saeed - 03/07/2020 2:46 PM CST Opened in error GER TRAINING documented in this encounter Plan of Treatment Not on file documented as of this encounter Visit Diagnoses Not on filedocumented in this encounter Care Teams Financial Consultant Relationship Specialty Start Date End Date Vilma Herrera PA [address] [place] [address] PCP - General Physician Braze Operator 08/19/19 07/06/20 documented as of this encounter
--- OUTSIDE RECORDS SUMMARY | 2024-03-03 15:38 | XMS_ITS | Encounter Summary ---
Author Organization [facility] Healthcare Address [address] [place] [address] Care Team Providers Care Global Clinical Leader Name Role Phone Vilma Herrera Primary Care Provider [phone] Encounter Details Date Type Department Care Team (Late st Contact Info) Description 09/13/2019 12:05 PM CDT [address] Lorne Mcginnis MD [address] [place] [address] Marialuisa Daniel NP [address] [facility] [address] [place] [address] Type 2 diabetes mellitus (CMS/HCC) Discharge Disposition: Discharge to home or self care Social History Tobacco Use Types Packs/Day Years Used Date Smoking Tobacco: Every Day Smokeless Tobacco: Never Comments Unknown Sex and Gender Information Value Date Recorded Sex Assigned at Not on file Legal Sex Female 8:53 AM RECEIVER STOCKER Gender Identity Female 12/26/2023 10:11 PM CDT Sexual Orientation Straight 12/26/2023 10 :11 PM CDT documented as of this encounter Discharge Disposition Disposition Code Departure Means Destination Discharge to home or self care documented in this encounter Plan of Treatment Not on file documented as of this encounter Procedures Procedure Name Priority Date/Time Associated Diagnosis Comments ALBUMIN CREATININE RATIO, URINE Routine 09/13/2019 12:02 PM CDT HEMOGLOBIN A1C Routine 09/13/2019 12:02 PM CDT Type 2 diabetes mellitus (CMS/HCC) LIPID PANEL Routine 09/13/2019 12:02 PM CDT Type 2 diabetes mellitus (CMS/HCC) documented in this encounter Results * (ABNORMAL) Albumin Creatinine Ratio, Urine (09/13/2019 12:02 PM CDT) Albumin Ur 1,234.3 mg/L OLIVIA Reyez ([place]) Comment: Interpretive Data No reference range established. Current interpretive data was last revised 2018. Testing performed by: [address] [address] Creatinine Ur 142.7 mg/dL OLIVIA SANTOYO ([place]) Comment: Interpretive Data No reference range established. Current interpretive data was last revised 2018. Testing performed by: [facility], [address] [place] [address]., [id number] Albumin Creatinine Ratio, Ur 865(H) 1 - 29 mg/g OLIVIA SANTOYO ([place]) Comment:Testing performed by : [facility], [address] [place] [address]., [id number] Urine 09/13/2019 12:0 2 PM CDT 09/13/2019 3:30 PM CDT us Marialuisa Daniel NP LAB URINE ORDERABLES Final Resu lt OLIVIA SANTOYO ([place]) 1 [facility] Department [place] [address] * (ABNORMAL) Lipid panel (09/13/2019 12:02 PM CDT) Cholesterol 117 30 - 199 mg/dL OLIVIA SANTOYO ([place]) [...] Data was last revised on 2017. Triglycerides 239(H) <=149 mg/dL OL[facility]IA [facility] ([place]) Comment: Interpretive Data [...] Data was last revised on 2017. HDL 22(L) >=40 mg/dL OL[facility]IA [facility] ([place]) Comment: Interpretive [...] was last revised on 2017. LDL, calculated 47 <=129 mg/dL OLIVIA SANTOYO ([place]) Comment: Interpretive [...] was last revised on 2017. Non-HDL Cholesterol 95 mg/dL OLIVIA SANTOYO ([place]) Comment: Interpretive Data [...] revised on 2017. Chol/HDL ratio 5 EDER SANTOYO ([place]) Blood specimen (specimen) 09/13/2019 12:02 PM CDT 09/13/2019 1:24 PM CDT Narrative OLIVIA SANTOYO ([place]) - 09/13/2019 2:05 PM CDT These lab test should be done fasting. This means do not eat or drink for at least 12 hours prior to getting your blood drawn. Marialuisa Daniel NP LAB BLOOD ORDERABLES Final Resu lt Performing Organization Address City/[facility]/ZIP Co de Phone Number OLIVIA SANTOYO ([place]) [address] [facility] [address] * (ABNORMAL) Hemoglobin A1c (09/13/2019 12:02 PM CDT) Hgb A1C 7.7(H) 4.0 - 5.6 % OLIVIA [facility] ([place]) Estimated Average Glucose 174 mg/dL OLIVIA [facility] ([place]) Comment: The ADA recommends reporting an estimated Average Glucose (eAG) with all Hemoglobin A1c results using the equation derived from a study of 507 normal and diabetic adults. ??Minority populations were underrepresented and children were not included. ?? (Diabetes Care 31:8490-4440, 2008). ??The eAG is not equivalent to a fasting glucose. Blood specimen (specimen) 09/13/2019 12:02 PM CDT 09/13/2019 1:24 PM CDT Marialuisa Daniel NP LAB BLOOD ORDERABLES Final Resu Performing Organization Address City/[facility]/ZIP Co de Phone Number OLIVIA SANTOYO ([place]) 1 [facility] [employer] [address] documented in this encounter Visit Diagnoses Diagnosis Type 2 diabetes mellitus (HCC) documented in this encounter Care Teams Global Clinical Leader Relationship Specialty Start Date End Date Vilma Herrera PA [address] [place] [id number] PCP - General Physician Senior Sql Developer 08/19/19 07/06/20 documented as of this encounter
--- OUTSIDE RECORDS SUMMARY | 2024-03-03 15:38 | XMS_ITS | Encounter Summary ---
Author Organization [facility] Medical [facility] Address [address] [place] [address] Care Team Providers Care Open Soaper Tender Name Role Phone Vilma Herrera Primary Care Provider [phone] Reason for Visit * Reason Comments Diabetes Type 2 Hyperglycemia Encounter Details Date Type Department Care Team (Late st Contact Info) Description 11/19/2019 4:00 PM CDT Office Visit [facility] of [address] [place] [address] Marialuisa Tyson, POWER SHEAR OPERATOR [address] [address] Uncontrolled type 2 diabetes mellitus with hyperglycemia, with long-term current use of insulin (CMS/[facility]) (Primary Dx); Type 2 diabetes mellitus with hyperglycemia, with long-term current use of insulin (CMS/HCC); Tobacco abuse Social History Tobacco Use Types Packs/Day Years Used Date Smoking Tobacco: Every Day Smokeless Tobacco: Never Comments Unknown Sex and Gender Information Value Date Recorded Sex Assigned at Not on file Legal Sex Female 8:53 AM ECONOMICS CONSULTANT Gender Identity Female 12/26/2023 10:11 PM CDT Sexual Orientation Straight 12/26/2023 10 :11 PM CDT documented as of this encounter Last Filed Vital Signs Vital Sign Reading Time Taken Comments Blood Pressure 138/74 11/19/2019 3:53 PM CDT Pulse - - Temperature - - Respiratory Rate - - Oxygen Saturation - - Inhaled Oxygen Concentration - - Weight 103.4 kg (228 lb) 11/19/2019 3:53 PM CDT Height 165.1 cm (5' 5 ) 11/19/2019 3:53 PM CDT Body Mass Index 37.94 11/19/2019 3:53 PM CDT documented in this encounter Patient Instructions * Patient Instructions* Marialuisa Tyson, POWER SHEAR OPERATOR - 11/19/2019 4:00 PM CDT Thanks for coming in today. Medications: ??? Please take medications as prescribed. Continue on Basaglar 30 units twice daily, Novalog 30 units twice a daily at meals. Monitoring: ??? Check blood sugar 4 times [...] fried foods more than once per week. Make appt to see Dr. Bhagat [phone] kidney doctor. Exercise: ??? Try moving at least a [...] ??? Call office for questions or concerns. [phone] documented in this encounter Ordered Prescriptions Prescription Sig Dispense Quantity Refills Last Filled Start Date End Date semaglutide (Ozempic) 1 mg/dose (2 mg/1.5 mL) pen injectorIndication s:type 2 diabetes mellitus Inject 1 mg under the skin every 7 days 2 Syringe 5 11/19/2019 02/11/2020 documented in this encounter Progress Notes * Marialuisa Tyson NP - 11/19/2019 4:00 PM CDT Images from the original note were not included. Subjective/Objective Patient ID: Sandy Lopez is a 54 y.o. female. Chief Complaint Diabetes Type 2 and Hyperglycemia Diabetes This is a chronic problem. The current episode started more than 1 year ago. The problem occurs constantly. The problem has been gradually improving. Associated symptoms include a visual change. Pertinent negatives include no abdominal pain, arthralgias, chest pain, congestion, coughing, fatigue, nausea, numbness, vomiting or weakness. The symptoms are aggravated by eating. The treatment providedmoderate relief. Today visit is a follow up visit. She has Type 2 Diabetes. Her weight has decreased by 12 lbs. 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 She eats 2-3 meals/day. She monitors blood sugar by wearing the DexCom 6 sensor. The Dexcom 6 was downloaded and reviewed. She denies hypoglycemia. She has not been able to reach Dr. Arias office for an appointment for consult. Today's visit is to review labs and discuss future plan. Allergies No Known Allergies Current Diabetes Medications Basaglar 30 units bid Novolog 25 units prior to meals Metformin 1000mg twice daily Ozempic 0.5mg weekly Current Medications Current Outpatient Medications Medication Sig Dispense Refill ??? aspirin 81 mg enteric coated tablet Take 81 mg by mouth daily ??? atorvastatin (LIPITOR) 80 mg tablet TAKE 1 TABLET BY MOUTH DAILY 30 tablet 11 ??? Basaglar KaseyEriberto U-100 Insulin 100 unit/mL (3 mL) insulin pen INJECT 38 UNITS SUBCUTANEOUSLY EVERY TWELVE HOURS 15 mL 3 ??? blood glucose diagnostic (glucose blood) strip Check blood sugar four times a day or as directed 300 each 11 ??? blood-glucose meter kit Use daily or as directed for monitoring of diabetes 1 each 0 ??? calcium carbonate-vitamin D3 (CALTRATE 600 + [...] Take 75 mg by mouth daily ??? [employer] G6 Transmitter device USE TO TEST BLOOD SUGAR TWICE A DAY 1 Device 3 ??? estradioL (ESTRACE) 0.5 mg tablet Take 0.5 mg by mouth daily ??? ezetimibe (ZETIA) 10 mg tablet ??? hydroCHLOROthiazide (HYDRODIURIL) 12.5 mg tablet Take 12.5 mg by mouth daily. ??? insulin aspart U-100 (NovoLOG U-100 Insulin aspart) 100 unit/mL injection Inject 25 Units underthe skin 2 (two) times a day ??? insulin syringe-needle U-100 1 mL 31 gauge x 5/16 syringe Twice a day ??? lancets (ACCU-CHEK MULTICLIX LANCET) misc Check blood sugar four times a day or as directed 1 each 11 ??? lisinopril (PRINIVIL,ZESTRIL) 10 mg tablet Take 10 mg by mouth daily. ??? metFORMIN (GLUCOPHAGE) 1,000 mg tablet TAKE 1 TABLET BY MOUTH TWICE A DAY WITH FOOD 60 tablet 11 ??? norethindrone (AYGESTIN) 5 mg tablet Take 5 mg by mouth daily ??? zolpidem (AMBIEN) 10 mg tablet Take 10 mg by mouth nightly as needed ??? DULoxetine DR (CYMBALTA) 30 mg capsule Take 30 mg by mouth daily ??? semaglutide (Ozempic) 1 mg/dose (2 mg/1.5 mL) pen injector Inject 1 mg under the skin every 7 days 2 Syringe 5 No current facility-administered medications for this visit. Patient/Social/Family History No past medical history on file. Social History Tobacco Use ??? Smoking status: Current Every Day Smoker ??? Smokeless tobacco: Never Used Substance Use Topics ??? Alcohol use: Not on file No family history on file. Labs Lab Results Component Value Date HGBA1C 7.4 11/19/2019 HGBA1C 7.7 (H) 09/13/2019 [...] No results found for: TSH Review of System Review of Systems Constitutional: Negative for activity [...] Musculoskeletal: Negative for arthralgias. Neurological: Negative for dizziness, weakness and numbness. Psychiatric/Behavioral: Negative for confusion. The patient is not nervous/anxious. Physical Exam Physical Exam Vitals signs and nursing note [...] is soft. Musculoskeletal: Normal range of motion. Lymphadenopathy: Cervical: No cervical adenopathy. Skin: General: Skin is warm and dry. Capillary Refill: Capillary refill takes less than 2 seconds. Neurological: Mental Status: She is alert and oriented to person, place, and time. Psychiatric: Mood and Affect: Mood normal. Behavior: Behavior normal. Assessment/Plan Diagnosed with Diabetes At age 14 Started insulin at age 27 Diagnoses and all orders for this visit: Uncontrolled type 2 diabetes mellitus with hyperglycemia, with long-term current use of insulin ([facility]) (Primary) Assessment & Plan: This is a chronic condition which is improving, but not at goal. Labs reviewed. A1c today- 7.4 Medication- Continue Basaglar 30 units twice daily, Novolog 30 units at meals, Increase Ozempic to 1mg weekly, Metformin 1000 mg po bid Monitor blood sugar continuously with DexCom 6 Referrals made to [facility] and [employer] regarding insulin pump therapy dilated eye exam appt is made for Monofilament foot exam completed, protective senses intact Urine microalbumin/creatinine - abnormal on lisinopril Kidney function eGRF- 55, BUN- 21, creatinine- 1.14 BP today- 138/74 , currently on lisinopril 10 mg daily LDL - 47, currently on Zetia history of macrovascular disease - [place], [place]. Referral to Dr. Bhagat Orders: - POCT hemoglobin A1c - semaglutide (Ozempic) 1 mg/dose (2 mg/1.5 mL) pen injector; Inject 1 mg under the skin every 7 days - Ambulatory referral to Nephrology; Future Type 2 diabetes mellitus with hyperglycemia, with long-term current use of insulin ([facility]) Assessment & Plan: Dexcom downloaded for October-nov 19, 2019 (7 days) Average blood sugar 143 Highest reading 249 mg/dl Lowest reading 55mg/dl Standard deviation- 32 In target -87% (70-180) High range-13% (>180) Tobacco abuse Assessment & Plan: This is a chronic condition Encouraged to stop smoking I spent a total of 30 Face to Face minutes of which more than 50% of the time was spent in counseling and coordination of care. This time included: Discussion on insulin pumps. Explain different options. Discussing and educating on eating a healthy [...] Plan Note - Marialuisa Tyson NP - 11/19/2019 5:07 PM CDTAssociated Problem(s): Type 2 diabetes mellitus with diabetic peripheral angiopathy without gangrene, with long-term current use of insulin ([facility]) ([facility]) (Deleted) Dexcom downloaded for October-nov 19, 2019 (7 days) Average blood sugar 143 Highest reading 249 mg/dl Lowest reading 55mg/dl Standard deviation- 32 In target -87% (70-180) High range-13% (>180) * Assessment & Plan Note - Marialuisa Tyson NP - 11/19/2019 4:55 PM CDTAssociated Problem(s): Omnipod Dash Insulin pump in place Interested in insulin pump therapy Discussed insulin pump options, with demonstrations Referral made to [email or web address] and [employer] * Assessment & Plan Note - Marialuisa Tyson NP - 11/19/2019 4:47 PM CDTAssociated Problem(s): Cigarette smoker This is a chronic condition Encouraged to stop smoking * Assessment & Plan Note - Marialuisa Tyson NP - 11/19/2019 4:21 PM CDTAssociated Problem(s): Uncontrolled type 2 diabetes [...] continuously with DexCom 6 Referrals made to [facility] [employer] regarding insulin pump therapy dilated eye exam appt is made for Monofilament foot exam completed, protective senses intact Urine microalbumin/creatinine - abnormal on lisinopril Kidney function eGRF- 55, BUN- 21, creatinine- 1.14 BP today- 138/74 , currently on lisinopril 10 mg daily LDL - 47, currently on Zetia history of macrovascular disease - [place], [place]. Referral to Dr. Bhagat * Assessment & Plan Note - Marialuisa Tyson NP - 11/19/2019 4:00 PM CDT Associated Problem(s): Type 2 diabetes mellitus with hypoglycemia without coma, with long-term current use of insulin (HCC) >>ASSESSMENT AND PLAN FOR TYPE 2 DIABETES MELLITUS WITH DIABETIC PERIPHERAL ANGIOPATHY WITHOUT GANGRENE, WITH LONG-TERM CURRENT USE OF INSULIN (CMS/HCC) (HCC) WRITTEN ON 11/19/2019 5:11 PM BY MARIALUISA TYSON NP Dexcom downloaded for October-nov 19, 2019 (7 days) Average blood sugar 143 Highest reading 249 mg/dl Lowest reading 55mg/dl Standard deviation- 32 In target -87% (70-180) High range-13% (>180) documented in this encounter Plan of Treatment Not on file documented as of this encounter Procedures Procedure Name Priority Date/Time Associated Diagnosis Comments POCT HEMOGLOBIN A1C Routine 11/19/2019 4 :32 PM CDT Uncontrolled type 2 diabetes mellitus with hyperglycemia, with long-term current use of insulin ([facility]) documented in this encounter Results * POCT hemoglobin A1c (11/19/2019 4:32 PM CDT) Hemoglobin A1C, POC 7.4 Blood specimen (specimen) 11/19/2019 4:32 PM CDT Marialuisa Tyson POWER SHEAR OPERATOR POINT OF CARE TEST ORDERABLES F inal Result documented in this encounter Visit Diagnoses Diagnosis Uncontrolled type 2 diabetes mellitus with hyperglycemia, with long-term current use of insulin ([facility])- Primary Type 2 diabetes mellitus with hyperglycemia, with long-term current use of insulin ([facility]) Tobacco abuse Tobacco use disorder documented in this encounter Discontinued Medications Medication Sig Discontinue Reason Start Date End Da te semaglutide 0.25 mg or 0.5 mg(2 mg/1.5 mL) pen injectorIndications:typ e 2 diabetes mellitus Inject 0.25 mg under the skin every 7 days Start at 0.25mg for 4 weeks, on week 5 increase to 0.5mg week Dose adjustment 08/19/2019 11/19/2019 documented as of this encounter Care Teams Open Soaper Tender Relationship Specialty Start Date End Date Vilma Herrera PA [address] [place] [address] PCP - General Physician Commissary Worker 08/19/19 07/06/20 documented as of this encounter
--- OUTSIDE RECORDS SUMMARY | 2024-03-03 15:38 | XMS_ITS | Encounter Summary ---
Author Organization [facility] Medical [facility] Address [address] [place] [address] Care Team Providers Care Artificial Stone Applicator Name Role Phone Vilma Herrera Primary Care Provider [phone] Reason for Visit * Reason Onset Date Comments Diabetes Type 2 08/20/2019 labs needed Encounter Details Date Type Department Care Team (Late st Contact Info) Description 08/20/2019 Telephone [facility] of [address] [place] [address] Marialuisa Daniel, SOLAR MAINTENANCE TECHNICIAN [address] [place] [id number] Diabetes Type 2 (labs needed) Social History Tobacco Use Types Packs/Day Years Used Date Smoking Tobacco: Every Day Smokeless Tobacco: Never Comments Unknown Sex and Gender Information Value Date Recorded Sex Assigned at Not on file Legal Sex Female 8:53 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 Since I was not sure what lab she uses, I sent her a slip for an external lab. documented in this encounter Plan of Treatment Not on file documented as of this encounter Results * (ABNORMAL) Lipid panel (09/13/2019 12:02 PM CDT) [facility] Cholesterol 117 30 - 199 mg/dL [facility] [...] on 2017. Triglycerides 239(H) <=149 mg/dL [facility] ([facility]) Comment: Interpretive [...] on 2017. HDL 22(L) >=40 mg/dL [facility] ([facility]) Comment: Interpretive [...] revised on 2017. Non-HDL Cholesterol 95 mg/dL [facility] ([facility]) Comment: Interpretive Data Ages < [...] Final Resu lt OL[facility]IA NATANAEL ([facility]) [address] [facility] Department [place] [address] documented in this encounter Visit Diagnoses Diagnosis Type 2 diabetes mellitus (HCC)- Primary Type 2 diabetes mellitus (HCC) documented in this encounter Care Teams Artificial Stone Applicator Relationship Specialty [place] [address] [place] [id number] PCP - General Physician Cleat Layer 08/19/19 07/06/20 documented as of this encounter
--- OUTSIDE RECORDS SUMMARY | 2024-03-03 15:38 | XMS_ITS | Encounter Summary ---
Author Organization [facility] Address [address] [place] [address] Care Team Providers Care Supervisor Winter Name Role Phone Vilma Herrera Primary Care Provider [phone] Encounter Details Date Type Department Care Team (Late st Contact Info) Description 09/20/2019 Telephone [facility] of [address] [place] [address] Marialuisa Daniel, CHRISTOPHER [address] [address] Social History Tobacco Use Types Packs/Day Years Used Date Smoking Tobacco: Every Day Smokeless Tobacco: Never Comments Unknown Sex and Gender Information Value Date Recorded Sex Assigned at Not on file Legal Sex Female 8:53 AM GENERAL SURGERY PHYSICIAN ASSISTANT Gender Identity Female 12/26/2023 10:11 PM CDT Sexual Orientation Straight 12/26/2023 10 :11 PM CDT documented as of this encounter Miscellaneous Notes * Addendum Note - Americo Akhtar CLT - 09/24/2019 1:49 PM CDTAddended by: AMERICO AKHTAR on: 09/24/2019 01:49 PM Modules accepted: Orders * Telephone Encounter - Marialuisa Daniel NP - 09/20/2019 9:01 AM CDT Reports a 6 lbs weight loss. She has had some hypoglycemia since starting the Ozempic. She has beendecreasing her insulin. Obtain CMP for further evaluation of proteinuria. Decrease Basaglar to 30 units bid. Decrease Novolog 25 units bid. Call office for further hypoglycemia or hyperglycemia. documented in this encounter Plan of Treatment Not on file documented as of this encounter Results * (ABNORMAL) Comprehensive metabolic panel (09/24/2019 1:51 PM CDT) Sodium 138 135 - 145 mmol/L [facility] ([facility]) Potassium, pl 4.9 3.3 - 4.9 mmol/L [facility] ([facility]) Chloride 101 97 - 110 mmol/L [facility] ([facility] CO2 25 22 - 32 mmol/L [facility] ([facility]) Anion gap 12 2 - 15 mmol/L [facility] ([facility]) BUN 21 8 - 25 mg/dL [facility] ([facility]) Creatinine 1.14(H) 0.60 - 1.10 mg/dL [facility] ([facility]) Glucose 181 70 - 199 mg/dL [facility] ([facility] [...] 1.2 mg/dL [facility] ([facility]) Protein, pl 7.1 6.5 - 8.5 g/dL [facility] ([facility]) Albumin 4.1 3.5 - 5.0 g/dL [facility] ([facility]) Alk phos 69 40 - 130 Units/L [facility] ([facility]) ALT 31 7 - 45 Units/L [facility] ([facility]) AST 40 10 - 45 Units/L [facility] ([facility]) Blood specimen (specimen) 09/24/2019 1:51 PM CDT 09/24/2019 5:14 PM CDT us Marialuisa Daniel INSERTING OPERATOR LAB BLOOD ORDERABLES Final Resu lt [facility] ([facility] [address] [facility] Department [place] [address] documented in this encounter Visit Diagnoses Diagnosis Type 2 diabetes mellitus (HCC)- Primary documented in this encounter Care Teams Supervisor Winter Relationship Specialty Start Date End Date Vilma Herrera PA [address] [place] [id number] PCP - General Physician Supply Analyst 08/19/19 07/06/20 documented as of this encounter
--- OUTSIDE RECORDS SUMMARY | 2024-03-03 15:38 | XMS_ITS | Encounter Summary ---
Author Organization [facility] Healthcare Address [address] [place] [address] Care Team Providers Care Biochemistry Teacher Name Role Phone Vilma Herrera Primary Care Provider [phone] Encounter Details Date Type Department Care Team (Late st Contact Info) Description 09/24/2019 1:50 PM CDT [address] Lrone Mcginnis MD [address] [place] [address] Marialuisa Daniel NP [address] [facility] [address] [place] [address] Type 2 diabetes mellitus (CMS/HCC) Discharge Disposition: Discharge to home or self care Social History Tobacco Use Types Packs/Day Years Used Date Smoking Tobacco: Every Day Smokeless Tobacco: Never Comments Unknown Sex and Gender Information Value Date Recorded Sex Assigned at Not on file Legal Sex Female 8:53 AM ELEMENTARY SUPERVISOR Gender Identity Female 12/26/2023 10:11 PM CDT Sexual Orientation Straight 12/26/2023 10 :11 PM CDT documented as of this encounter Discharge Disposition Disposition Code Departure Means Destination Discharge to home or self care documented in this encounter Plan of Treatment Not on file documented as of this encounter Procedures Procedure Name Priority Date/Time Associated Diagnosis Comments EGFR Routine 09/24/2019 1:51 PM CDT Type 2 diabetes mellitus (CMS/HCC) COMPREHENSIVE METABOLIC PANEL Routine 09/24/2019 1:51 PM CDT Type 2 diabetes mellitus (CMS/HCC) documented in this encounter Results * eGFR (09/24/2019 1:51 PM CDT) eGFR 55 mL/min/1.7 3 m2 [facility] ([facility]) Comment: Interpretive Data Reference Interval Normal ?>/= 90 mL/min/1.73m2 Mildly decreased* ? 60 - 89 mL/min/1.73m2 Mildly to moderately decreased ?45 - 59 mL/min/1.73m2 Moderately to severely decreased ??30 - 44 mL/min/1.73m2 Severely decreased ?15 - 29 mL/min/1.73m2 Kidney Failure ?< 15 ??mL/min/1.73m2 *Relative to young adult level If -[place] multiply value by 1.16. Estimated glomerular filtration rate is determined by [...] 70. Current interpretive data was last reviewed 2015. Blood specimen (specimen) 09/24/2019 1:51 PM CDT 09/24/2019 5:14 PM CDT us Marialuisa Daniel NP LAB BLOOD ORDERABLES Final Resu lt [facility] ([place]) 1 [facility] Department [place] [address] * (ABNORMAL) Comprehensive metabolic panel (09/24/2019 1:51 [...] 09/24/2019 5:14 PM CDT us Marialuisa Daniel NP LAB BLOOD ORDERABLES Final Resu lt [facility] ([facility] Department [place] [address] documented in this encounter Visit Diagnoses Diagnosis Type 2 diabetes mellitus (HCC) documented in this encounter Care Teams Biochemistry Teacher Relationship Specialty Start Date End Date Vilma Hrerera PA [address] [place] [address] PCP - General Physician Cotton Candy Maker 08/19/19 07/06/20 documented as of this encounter
--- OUTSIDE RECORDS SUMMARY | 2024-03-03 15:38 | XMS_ITS | Encounter Summary ---
Author Organization [facility] Address [address] [place] [address] Care Team Providers Care Production Broaching Machine Operator Name Role Phone Vilma Herrera Primary Care Provider Reason for Visit * Reason Comments Diabetes Type 2 Hyperglycemia Encounter Details Date Type Department Care Team (Late st Contact Info) Description 02/11/2020 10:30 AM MACHINE SHOP SUPERVISOR Office Visit [facility] [address] [place] [address] Marialuisa Daniel, TURF SALES PERSON [id number] [address] Type 2 diabetes mellitus with hyperglycemia, with long-term current use of insulin ([facility]) (Primary Dx); Insulin pump titration; Tobacco abuse Social History Tobacco Use Types Packs/Day Years Used Date Smoking Tobacco: Every Day Smokeless Tobacco: Never Comments Unknown Sex and Gender Information Value Date Recorded Sex Assigned at Not on file Legal Sex Female 8:53 AM MACHINE SHOP SUPERVISOR Gender Identity Female 12/26/2023 10:11 PM CDT Sexual Orientation Straight 12/26/2023 10 :11 PM CDT documented as of this encounter Last Filed Vital Signs Vital Sign Reading Time Taken Comments Blood Pressure 110/72 02/11/2020 10:38 AM MACHINE SHOP SUPERVISOR Pulse - - Temperature - - Respiratory Rate - - Oxygen Saturation - - Inhaled Oxygen Concentration - - Weight 98.4 kg (217 lb) 02/11/2020 10:38 AM MACHINE SHOP SUPERVISOR Height 165.1 cm (5' 5 ) 02/11/2020 10:38 AM MACHINE SHOP SUPERVISOR Body Mass Index 36.11 02/11/2020 10:38 AM MACHINE SHOP SUPERVISOR documented in this encounter Patient Instructions * Patient Instructions* Marialuisa Daniel, CHRISTOPHER - 02/11/2020 10:30 AM MACHINE SHOP SUPERVISOR Thanks for coming in today. My medical claims processor, Allyssa, and I are thankful you have trusted us withyour care, and hope that you received EXCELLENT care today! Please do not hesitate to call if you have any questions or concerns at [phone]. You may receive a phone call or text asking about your care today. We would love to hear your input and again, hope your visit was as EXCELLENT as possible, even if you were not feeling your best! Medications: ??? Please take medications as prescribed. Stop ozempic and start Trulicity 1.5mg weekly and then increase to 3.0 mg weekly. Stop Lisinopril and start Losartan 25mg daily. Monitoring: ??? Check blood sugar continuously We will be requesting to see blood [...] a source of fast-acting carbohydrate with you. INE SHOP SUPERVISOR documented in this encounter Ordered Prescriptions Prescription Sig Dispense Quantity Refills Last Filled Start Date End Date losartan (COZAAR) 25 mg tablet Take 1 tablet (25 mg total) by mouth daily 30 tablet 11 02/11/2020 01/05/2021 dulaglutide (TRULICITY) 1.5 mg/0.5 mL pen injectorIndication s:Type 2 diabetes mellitus with hyperglycemia, with long-term current use of insulin (HCC) Inject 0.5 mL (1.5 mg total) under the skin every 7 days 4 pen 02/11/2020 03/10/2020 documented in this encounter Progress Notes * Marialuisa Daniel NP - 02/11/2020 10:30 AM CST Images from the original [...] labs and discuss future plan. ?? Diabetes This is a chronic problem. The current episode started more than 1 year ago. The problem occurs constantly. The problem has been gradually improving. Pertinent negatives include no abdominal pain, arthralgias, chest pain, congestion, coughing, fatigue, nausea, neck pain, numbness, visual change, vomiting or weakness. The symptoms are aggravated by eating. The treatment provided significant relief. No Known Allergies Current Outpatient [...] each 0 ??? blood-glucose meter,continuous (Dexcom G6 Floor Person) misc 1 Device continuously 1 each 1 ??? blood-glucose sensor (Notegraphycom G6 Sensor) device 1 Device continuously 1 Device 3 ??? blood-glucose transmitter (Notegraphycom G6 Transmitter) device 1 Device continuously USE [...] mg by mouth daily ??? Dexcom G6 Transmitter device USE TO TEST BLOOD SUGAR TWICE A DAY 1 Device 3 ??? DULoxetine DR (CYMBALTA) 30 mg capsule Take 30 mg by mouth daily ??? estradioL (ESTRACE) 0.5 mg tablet Take 0.5 mg by mouth daily ??? ezetimibe (ZETIA) 10 mg tablet TAKE 1 TABLET BY MOUTH DAILY 30 tablet 5 ??? hydroCHLOROthiazide (HYDRODIURIL) 12.5 mg tablet Take 12.5 mg by mouth daily. ??? insulin aspart U-100 (NovoLOG U-100 Insulin aspart) 100 unit/mL injection Inject 25 Units underthe skin 2 (two) times a day ??? insulin aspart U-100 (NovoLOG U-100 Insulin aspart) 100 unit/mL injection Inject per Medtronic insulin pump. Max daily dose 75 units. 30 mL 3 ??? insulin syringe-needle U-100 1 mL 31 gauge x 5/16 syringe Twice a day ??? lancets (ACCU-CHEK MULTICLIX LANCET) [facility] Check blood sugar four times a day or as directed 1 each 11 ??? metFORMIN (GLUCOPHAGE) 1,000 mg tablet TAKE 1 TABLET BY MOUTH TWICE A DAY WITH FOOD 60 tablet 11 ??? norethindrone (AYGESTIN) 5 mg tablet Take 5 mg by mouth daily ??? zolpidem (AMBIEN) 10 mg tablet Take 10 mg by mouth nightly as needed ??? dulaglutide (TRULICITY) 1.5 mg/0.5 mL pen injector Inject 0.5 mL (1.5 mg total) under the skin every 7 days 4 pen 0 ??? losartan (COZAAR) 25 mg tablet Take 1 tablet (25 mg total) by mouth daily 30 tablet 11 No current facility-administered medications for this visit. Past Medical History: Diagnosis Date ??? Uncontrolled type 2 diabetes mellitus with hyperglycemia, with long-term current use of insulin([facility]) 04/03/2017 Social History Tobacco Use ??? Smoking status: Current Every Day Smoker ??? Smokeless tobacco: Never Used Substance Use Topics ??? Alcohol use: Not on file No family history on file. Lab Results Component Value Date HGBA1C 7.5 [...] found for: TSH Review of Systems Constitutional: Negative for activity [...] Behavior: Behavior normal. Assessment/Plan Diagnosed with Diabetes Started insulin Diagnoses and all orders for this visit: Type 2 diabetes mellitus with hyperglycemia, with long-term current use of insulin ([facility]) (Primary) Assessment & Plan: This is a [...] eye exam. last dilated eye exam was [facility] Monofilament foot exam completed, protective senses intact, loss of protective senses. Treated withGabapentin/Lyrica Urine microalbumin/creatinine ratio - 865 Currently- stop lisinopril due to dizziness, statrt Losartan 25 mg daily , goal <[address] Bhagat, states has not heard from them, will repeatreferral. Personally reviewed labs: BUN- 21 , creatinine- 1.14 GFR- 55 Kidney function- abnormal B/P today-110/72 , currently on lisinopril 10 mg daily, switched to Losartan 25 mg daily. At goal blood pressure is <140/90 Personally reviewed LDL - 47, currently on atorvastatin 80mg daily. At goal of less than 70 No history of macrovascular disease - [place]. Dexcom downloaded for 02/05/20-02/11/20 (7 days) Average blood sugar 161 Highest reading 267 mg/dl Lowest reading 84mg/dl Standard deviation- 39 In target -69% (70-180) High range-31% (>180) Seriously high->2% 97.9% time CGM active. Orders: - POCT hemoglobin A1c - dulaglutide (TRULICITY) 1.5 mg/0.5 mL pen injector; Inject 0.5 mL (1.5 mg total) under the skin every 7 days Insulin pump titration Assessment & Plan: This is a chronic condition which is stable, but not at goal. Download reviewed. Type of insulin pump- Guanri 670G with DexCom 6 sensor Pump settings : Basal increased to 0000-1.55, 0400-1.70, 1600-1.60 IC -6 ISF-20 Active insulin time 4hrs. TARGET GLUCOSE 110-120 Avg BG 161 BG readings -1973 Avg daily carbs 260 plus or minus 96 Carb/bolus insulin-5.3 Avg Total daily insulin- 87 plus or minus 17.1 Avg daily basal - 37.5 (43%) Avg daily bolus - 49.5 (57%) . Tobacco abuse Assessment & Plan: This is a chronic condition Encouraged to stop smoking Other orders - losartan (COZAAR) 25 mg tablet; Take 1 tablet (25 mg total) by mouth daily Discussed and educated on eating a healthy [...] Follow up 3 months Marialuisa Daniel NP INE SHOP SUPERVISOR documented in this encounter Miscellaneous Notes * Assessment & Plan Note - Marialuisa Daniel NP - 02/11/2020 1:20 PM CSTAssociated Problem(s): Cigarette smoker This is a chronic condition Encouraged to stop smoking INE SHOP SUPERVISOR * Assessment & Plan Note - Marialuisa Daniel NP - 02/11/2020 1:16 PM CSTAssociated Problem(s): Omnipod Dash Insulin pump in place This is a chronic condition which is stable, but not at goal. Download reviewed. Type of insulin pump- NeoScale Systemss 670G with DexCom 6 sensor Pump settings : Basal increased to 0000-1.55, 0400-1.70, 1600-1.60 IC -6 ISF-20 Active insulin time 4hrs. TARGET GLUCOSE 110-120 Avg BG 161 BG readings -1973 Avg daily carbs 260 plus or minus 96 Carb/bolus insulin-5.3 Avg Total daily insulin- 87 plus or minus 17.1 Avg daily basal - 37.5 (43%) Avg daily bolus - 49.5 (57%) . INE SHOP SUPERVISOR * Assessment & Plan Note - Marialuisa Daniel NP - 02/11/2020 1:03 PM CSTAssociated Problem(s): Type 2 diabetes mellitus with diabetic peripheral angiopathy without gangrene, with long-term current use of insulin ([facility]) (HCC) (Deleted) This is a chronic condition [...] eye exam. last dilated eye exam was [facility] Monofilament foot exam completed, protective senses intact, loss of protective senses. Treated withGabapentin/Lyrica Urine microalbumin/creatinine ratio - 865 Currently- stop lisinopril due to dizziness, statrt Losartan 25 mg daily , goal <[address] Bhagat, states has not heard from them, will repeatreferral. Personally reviewed labs: BUN- 21 , creatinine- 1.14 GFR- 55 Kidney function- abnormal B/P today-110/72 , currently on lisinopril 10 mg daily, switched to Losartan 25 mg daily. At goal blood pressure is <140/90 Personally reviewed LDL - 47, currently on atorvastatin 80mg daily. At goal of less than 70 No history of macrovascular disease - [place]. Dexcom downloaded for 02/05/20-02/11/20 (7 days) Average blood sugar 161 Highest reading 267 mg/dl Lowest reading 84mg/dl Standard deviation- 39 In target -69% (70-180) High range-31% (>180) Seriously high->2% 97.9% time CGM active. INE SHOP SUPERVISOR INE SHOP SUPERVISOR INE SHOP SUPERVISOR INE SHOP SUPERVISOR * Assessment & Plan Note - Marialuisa Daniel NP - 02/11/2020 10:30 AM MACHINE SHOP SUPERVISOR Associated Problem(s): Type 2 diabetes mellitus with hypoglycemia without coma, with long-term current use of insulin (HCC) >>ASSESSMENT AND PLAN FOR TYPE 2 DIABETES MELLITUS WITH DIABETIC PERIPHERAL ANGIOPATHY WITHOUT GANGRENE, WITH LONG-TERM CURRENT USE OF INSULIN ([facility]) (HCC) WRITTEN ON 02/11/2020 1:21 PM BY JAH, MARIALUISA K., TURF SALES PERSON This is a chronic condition which is [...] eye exam. last dilated eye exam was [facility] Monofilament foot exam completed, protective senses intact, loss of protective senses. Treated withGabapentin/Lyrica Urine microalbumin/creatinine ratio - 865 Currently- stop lisinopril due to dizziness, statrt Losartan 25 mg daily , goal <[address] Bhagat, states has not heard from them, will repeatreferral. Personally reviewed labs: BUN- 21 , creatinine- 1.14 GFR- 55 Kidney function- abnormal B/P today-110/72 , currently on lisinopril 10 mg daily, switched to Losartan 25 mg daily. At goal blood pressure is <140/90 Personally reviewed LDL - 47, currently on atorvastatin 80mg daily. At goal of less than 70 No history of macrovascular disease - [place]. Dexcom downloaded for 02/05/20-02/11/20 (7 days) Average blood sugar 161 Highest reading 267 mg/dl Lowest reading 84mg/dl Standard deviation- 39 In target -69% (70-180) High range-31% (>180) Seriously high->2% 97.9% time CGM active. documented in this encounter Plan of Treatment Not on file documented as of this encounter Procedures Procedure Name Priority Date/Time Associated Diagnosis Comments POCT HEMOGLOBIN A1C Routine 02/11/2020 1 1:15 AM MACHINE SHOP SUPERVISOR Type 2 diabetes mellitus with hyperglycemia, with long-term current use of insulin ([facility]) documented in this encounter Results * POCT hemoglobin A1c (02/11/2020 11:15 AM MACHINE SHOP SUPERVISOR) Hemoglobin A1C, POC 7.5 Blood specimen (specimen) 02/11/2020 11:15 AM MACHINE SHOP SUPERVISOR us Marialuisa Daniel TURF SALES PERSON POINT OF CARE TEST ORDERABLES F inal Result documented in this encounter Visit Diagnoses Diagnosis Type 2 diabetes mellitus with hyperglycemia, with long-term current use of insulin (HCC)- Primary Insulin pump titration Fitting and adjustment of insulin pump Tobacco abuse Tobacco use disorder documented in this encounter Discontinued Medications Medication Sig Discontinue Reason Start Date End Da te semaglutide (Ozempic) 1 mg/dose (2 mg/1.5 mL) pen injectorIndications:type 2 diabetes mellitus Inject 1 mg under the skin every 7 days Therapy completed 11/19/2019 02/11/2020 lisinopril (PRINIVIL,ZESTRIL) 10 mg tablet Take 10 mg by mouth daily. Side effects 02/11/2020 documented as of this encounter Care Teams Production Broaching Machine Operator Relationship Specialty Start Date End Date Vilma Herrera PA [address] [place] [address] PCP - General Physician Supervisor Inventory Merchandising 08/19/19 07/06/20 documented as of this encounter
--- OUTSIDE RECORDS SUMMARY | 2024-03-03 15:47 | XMS_ITS ---
Author Organization [facility] Address [address] [place] [address] Care Team Providers Care Quality Control Projectionist Name Role Phone Holliday, Eron Primary Care Provider [phone] Christie Karimi Unavailable [phone] George Caldwell Unavailable [phone] REASON FOR VISIT zolpidem Social History Sex Assigned At : Social History Observation Description Sex Assigned At Female Encounters Encounter Location Date Provider Diagnosis [address] [address] 01/21/2024 George Caldwell Plan Of Treatment No Information Progress Notes * Libby LOPEZJulienB:1965 ([age] yo F)Acc No.[id number]:01/21/2024 Patient:?Sandy LOPEZ :1965???Age:58 Y???Sex:Female Address:[address] [place] [address], [address] * true * Date:? Generated for Printi ng/Fasaeg/eTransmitting on:?03/03/2024 03:46 PM SENIOR UNIX ADMINISTRATOR
--- OUTSIDE RECORDS SUMMARY | 2024-03-03 15:47 | XMS_ITS ---
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 Surgical History:?ablation C - sections 1987,1989,1993stents in right leg 2018,2019right knee surgery 2016tonsillectomy- as a kid Cyst removal 04/17CTR right elbow 09/2021Left wrist ganglion cyst removal-[facility] 05/2022total knee replacement 10/06/23 * Hospitalization/Major Diagno stic Procedure:?suicide attempt (back in [place]) 2016right knee ight knee replacement 09/2023total knee replacement 10/06/2023 * Family History:?Father: dece ased.?Mother: alive, lung cancer.?2 brother(s) - healthy. 1 son(s) , 1 daughter(s) - healthy. .? Denies any family mental health history that she is aware of. * Social History:?Primary Social History:?Living Arrangement?Living Arrangement:?Dependent Living ?Living with:?Parent(s) stepdad and brother ?Is this a supportive environment??Yes ?Alcohol Use?Alcohol Use Frequency:?Never no alcohol in 3 years ?Illicit Substance Usage?Illicit Substance Usage:?No ?Employment Status?Employment Status:?Employed [employer] ???Tobacco Use:?Tobacco Control (Standard)?Tobacco use:?Current smoker ?Additional Findings: Tobacco user?e-cigarette ?Additional Findings: Tobacco non-user?Current nonsmoker ???[id number] 09/20/2022 09/20/2022 Zolpidem Tartrate 28.0 28 10 MG NA Stefania Meek Fnp-koffi - [id number] [employer] [place], [place] NA 0 [place] 1 [id number] 08/26/2022 07/31/2022 Zolpidem Tartrate 28.0 28 10 MG NA Stefania Meek Fnp-koffi - [id number] [employer] [place], [place] NA 1 [place] 1. * Medications:?TakingMounjaro 2.5 MG/0.5ML Solution Pen-injector as directed Subcutaneous Vitamin D 25 MCG (1000 UT) Tablet 1 tablet Orally Once a day Atorvastatin Calcium 80 MG Tablet 1 tablet Orally Once a day metFORMIN HCl 1000 MG Tablet 1 tablet with a meal Orally two times per day HumaLOG as directed Subcutaneous per pump Meclizine HCl 25 mg Tablet 1 TABLET NEEDED ORALLY TWICE A DAY 10 DAYS Losartan Potassium-HCTZ 100-12.5 MG Tablet 1 tablet Orally Once a day Citalopram Hydrobromide 20 mg Tablet TAKE 1 & 1/2 TABLETS BY MOUTH DAILY Propranolol HCl 20 mg Tablet TAKE 1 TABLET BY MOUTH TWICE A DAY Fexofenadine HCl 180 mg Tablet TAKE 1 TABLET BY MOUTH DAILY WITH WATER. DO NOT TAKE WITH FRUIT JUICE Famotidine 20 mg Tablet TAKE 1 TABLET BY MOUTH TWICE A DAY busPIRone HCl 7.5 MG Tablet TAKE 1 TABLET BY MOUTH TWICE A DAY Orally Twice a day SUMAtriptan Succinate 50 mg Tablet TAKE 1 TABLET BY MOUTH TWICE A DAY AT START OF HEADACHE as NEEDED (AT LEAST 2 HOURS BETWEEN DOSES) Zolpidem Tartrate 10 mg Tablet TAKE 1 TABLET BY MOUTH EVERY NIGHT AT BEDTIME IF NEEDED Taking Mounjaro 2.5 MG/0.5ML Solution Pen-injector as directed Subcutaneous Taking Vitamin D 25 MCG (1000 UT) Tablet 1 tablet Orally Once a day Taking Atorvastatin Calcium 80 MG Tablet 1 tablet Orally Once a day Taking metFORMIN HCl 1000 MG Tablet 1 tablet with a meal Orally two times per day Taking HumaLOG as directed Subcutaneous per pump Taking Meclizine HCl 25 mg Tablet 1 TABLET NEEDED ORALLY TWICE A DAY 10 DAYS Taking Losartan Potassium-HCTZ 100-12.5 MG Tablet 1 tablet Orally Once a day Taking Citalopram Hydrobromide 20 mg Tablet TAKE 1 & 1/2 TABLETS BY MOUTH DAILY Taking Propranolol HCl 20 mg Tablet TAKE 1 TABLET BY MOUTH TWICE A DAY Taking Fexofenadine HCl 180 mg Tablet TAKE 1 TABLET BY MOUTH DAILY WITH WATER. DO NOT TAKE WITH FRUIT JUICE Taking Famotidine 20 mg Tablet TAKE 1 TABLET BY MOUTH TWICE A DAY Taking busPIRone HCl 7.5 MG Tablet TAKE 1 TABLET BY MOUTH TWICE A DAY Orally Twice a day Taking SUMAtriptan Succinate 50 mg Tablet TAKE 1 TABLET BY MOUTH TWICE A DAY AT START OF HEADACHE as NEEDED (AT LEAST 2 HOURS BETWEEN DOSES) Taking Zolpidem Tartrate 10 mg Tablet TAKE 1 TABLET BY MOUTH EVERY NIGHT AT BEDTIME IF NEEDED Not-TakingoxyCODONE HCl Medication List reviewed and reconciled with the patientNot-Taking oxyCODONE HCl Medication List reviewed and reconciled with the patient * Allergies:?Codeine Sulfateno [Allergies Verified] Objective: * Vitals:?Initials: cv, LMP: n /a, Pain scale:4, GAD7:2, PHQ9:4. * Examination: ???General Examination: ?GENERAL APPEARANCE:?Unable to perform physical examination - patient verbalizes no concerns aside from chronic medical conditions during telephone communication.?Mental Status Exam: ?SENSORIUM AND COGNITION?Alert, Oriented to Person, Oriented to Place, Oriented to Time, Oriented to Situation.?ATTENTION AND CONCENTRATION?No deficits.?APPEARANCE?Unable to assess due to telephone visit.?ATTITUDE AND BEHAVIOR?Cooperative.?MEMORY?Grossly intact.?EYE CONTACT?Unable to assess due to telephone visit.?AFFECT?Unable to assess due to telephone visit - inferred to be normal/full based on conversation.?MOOD?Euthymic.?SPEECH QUANTITY?Appropriate.?SPEECH QUALITY?Spontaneous, Appropriate volume.?THOUGHT PROCESS?Coherent and goal directed.?THOUGHT CONTENT?Appropriate - WNL.?LANGUAGE?Appropriate- WNL.?MOTOR ACTIVITY?Unable to assess due to telephone visit - patient denies abnormal movements/gait.?SUICIDAL IDEATION?Denies suicidal ideation.?HOMICIDAL IDEATION?Denies homicidal ideation.?HALLUCINATIONS?Denies hallucinations.?INSIGHT?Good.?JUDGMENT?Good.? Assessment: * Assessment: 1.?Depression - F32.9???2.?A nxiety - F41.9 (Primary)???3.?Insomnia, unspecified type - G47.00???4.?Nicotine dependence, unspecified, uncomplicated - F17.200??? Plan: * Treatment: 2.?Depression? Notes: See assessment and plan for anxiety?? 3.?Insomnia, unspecified typ e? Refill Zolpidem Tartrate Tablet, 10 mg, TAKE 1 TABLET BY MOUTH EVERY NIGHT AT BEDTIME IF NEEDED, 30 days, 30, Refills 0.?? Notes: Duration (acute/chronic), stability (controlled/uncontrolled): Chronic, well controlled on current medications Current medications/efficacy: Yes Previous medication trials: Herbien Current/previous therapies: Examination as documented - see pertinent aspects of office visit documentation. Pertinent diagnostics: LABS MONITORED BY PCP AND OTHER MEDICAL PROVIDERS Differential diagnoses: RECOMMENDATIONS: Continue/modify medications as prescribed - educated patient/guardian on adverse effects, risks and benefits, as well as alternative treatments Consume well balanced diet, preferably low in saturated fats (solid at room temperature, such as butter, margarine, Crisco, etc) and low in sodium (<2,000mg per day). Consume plenty of fruits/vegetables, healthy grains/whole grains, unsaturated/healthy fats (liquid at room temperature, such as olive oil, sunflower seed oil, canola, vegetable, etc.). Exercise regularly - Develop an exercise routine. 30 minutes of moderate exercise (walking at a brisk pace) 5 times per week is recommended. You should work hard enough to cause a sweat but still be able to talk with others while exercising. Exercise improves overall health - improves blood pressure and blood sugar, helps control weight, reduces stress, and improves mood. Practice stress reduction techniques, such as guided imagery, journaling, aromatherapy, acupuncture/acupressure, deep breathing, etc. Practice healthy sleep hygiene - maintain regular routine, no caffeine after 1PM, no exercise 1-2 hours prior to bedtime, keep bedroom dark and cool, no TV or electronics while in bed. Consider melatonin as needed. Consider cognitive behavioral therapy for insomnia (CBT-I). Consider/Continue therapy. Consider/Continue substance cessation therapy as needed - contact office if desiring medication assisted therapy. Manage co-morbid conditions. Continue monitoring symptoms - report persistent or worsening/concerning symptoms to the office or go to the ER. For mental health CRISIS, please reach out to [phone] (National Suicide and Crisis Lifeline), 911, go to the emergency department, or contact the [facility] Crisis Unit/Team. Follow up as scheduled in 6 weeks or sooner if necessary. Follow up with PCP and/or other specialists as advised. NEXT STEP: Consider medication adjustments as needed.?? 4.?Nicotine dependence, unsp ecified, uncomplicated? Notes: Duration (acute/chronic), stability (controlled/uncontrolled): Chronic, Vapes daily, contemplating quitting - quit smoking cigarettes about 3 years ago (about 2020), smoked from age 16 until 55, smoked about 1-1.5 packs daily Current medications/efficacy: N/A Previous medication trials: N/A RECOMMENDATIONS: Consider substance cessation therapy as needed - contact office if desiring medication assisted therapy. Manage co-morbid conditions. Continue monitoring symptoms - report persistent or worsening/concerning symptoms to the office or go to the ER. For mental health CRISIS, please reach out to 988 (National Suicide and Crisis Lifeline), 911, go to the emergency department, or contact the [facility] Crisis Unit/Team. Follow up as scheduled or sooner if necessary. Follow up with PCP and/or other specialists as advised. NEXT STEP: Consider MAT as needed.?? * Procedure Codes:?3008F BODY MASS INDEX [id number] MEDICAL NUTRITION, INDIV, [id number] BEHAV CHNG SMOKING 3-10 MIN * Preventive Medicine:? ??Counseling:?Care goal follow-up plan:?BMI management provided?Yes ?Above Normal BMI Follow-up?Lifestyle education regarding diet ?SMOKING:?Patient counselled on the dangers of tobacco use and urged to quit.?. * Follow Up:?6 Weeks - TELEPHO NE (Reason: 6 week psych follow up/med refill) * * NG INSTRUCTOR Sign off status: Completed true * Provider:?George Caldwell APN Date:?01/20 Generated for Dena helms/Jelly/Yasmine on:?03/03/2024 03:46 PM FLYING INSTRUCTOR History and Physical Notes * HPI (History of Present Illness) Category Sub-Category Detail Notes Category Not es Depression Screening PHQ-9 Little inte rest or pleasure in doing things: Not at all Feeling down, depressed, or hopeless: No t at all Trouble falling or staying a sleep, or sleeping too much: More than half the days Feeling tired or having little energy: S everal days Poor appetite or overeating: Not at all Feeling bad about yourself o r that you are a failure, or have let yourself or your family down: Not at all Trouble concentrating on thi ngs, such as reading the newspaper or watching television: Several days Moving or speaking so slowly that other people could have noticed; or the opposite, being so fidgety or restless that you have been moving around a lot more than usual: Not at all Thoughts that you would be b kunal off or of hurting yourself in some way: Not at all Total Score: 4 Interpretation: Minimal Depression Intervention Depression Screening Findings: P ositive Follow-Up for Depression: No Referral necessary, patient involved in behavioral health treatment . JEWEL-7 Screening 1. Feeling nervous, anxious, or on edg e :, Several days-1 2. Not being able to stop or control wor rying :, Not at all-0 3. Worrying too much about different thi ngs :, Not at all-0 4. Trouble sleeping/relaxing :, Several days-1 5. Being so restless that it is hard to sit still :, Not at all-0 6. Becoming easily annoyed or irritable :, Not at all-0 7. Feeling afraid, as if something awful might happen :, Not at all-0 JEWEL-7 Score Total score: 2 : Mood Disorder Questionnaire 08-15-21 Questions Please answer each question to the best of your ability.: Has there ever been a time period when you were not your usual self and... You felt so good or hyper th at other people thought you were not your normal self or you were so hyper that you got into trouble?: Yes . You were so irritable that y ou shouted at people or started fights or arguments?: Yes . You got much less sleep than usual and found that you didn't really miss it?: No . You felt much more self-confident than u sual?: Yes . You were more talkative or spoke much fa ster than usual?: No . Thoughts raced through your head or you couldn't slow your mind down?: Yes . You were so easily distracte d by things around you that you had trouble concentrating or staying on track?: Yes . You had more energy than usual?: No . You were more active or did many more th ings than usual?: No . You were more social or outg oing than usual, for example, you telephoned friends in the middle of the night?: No . You were more interested in sex than usu al?: No . You did things that were usu al for you or that other people might have thought were excessive, foolish, or risky?: No . Spending money got you or your family in trouble?: No . If you checked YES to more t gamboa one of the above, have several of these ever happened during the same period of time?: Yes . How much of a problem did an y of these cause you - like being unable to work; having family, money or legal troubles; getting into arguments or fights?: No problems . Examination Category Sub-Category Detail Notes Category Not es General Examination GENERAL APPEARANCE: Unable t o perform physical examination - patient verbalizes no concerns aside from chronic medical conditions during telephone communication Mental Status Exam SENSORIUM AND COGNITION Alert, Oriented to Person, Oriented to Place, Oriented to Time, Oriented to Situation ATTENTION AND CONCENTRATION No deficits APPEARANCE Unable to assess due to telephone visit ATTITUDE AND BEHAVIOR Cooperative MEMORY Grossly intact EYE CONTACT Unable to assess due to telephone visit AFFECT Unable to assess due to telephone visit - inferred to be normal/full based on conversation MOOD Euthymic SPEECH QUANTITY Appropriate SPEECH QUALITY Spontaneous, Appropr iate volume THOUGHT PROCESS Coherent and goal di rected THOUGHT CONTENT Appropriate - WNL MOTOR ACTIVITY Unable to assess due to telephone visit - patient denies abnormal movements/gait SUICIDAL IDEATION Denies suicidal idea tion HOMICIDAL IDEATION Denies homicidal ariadna ation HALLUCINATIONS Denies hallucination s INSIGHT Good JUDGMENT Good LANGUAGE Appropriate- WNL
--- OUTSIDE RECORDS SUMMARY | 2024-03-03 15:47 | XMS_ITS | Patient Health Record ---
Author Organization [facility] Address [address] [place] [address] Care Team Providers Care Needle Polisher Name Role Phone Eron Holliday Primary Care Provider Christie Karimi Unavailable [phone] Stefania Meek Unavailable [phone] George Caldwell Unavailable [phone] Allergies Allergen (clinical drug ingredient) Drug/Non Drug Allergy documented on EMR Reaction Allergy Type Onset Date Status codeine Codeine Sulfate Unknown Drug Allergy A ctive Results Component Value Reference Range Notes Hemoglobin A1c* Reviewed date:10/16/2023 03:00:59 PM Interpretation: Performing Lab: Notes/Report: Hemoglobin A1c 6.2 Reason For Referral Reason Right 1st trigger fi nger Diagnosis 1 Trigger index finger of right hand (M65.321) Referral Organization [facility] Referring Provider First Name Eron Referring Provider Last Name Mg Referring Provider Speciality [facility] Referred Provider Asif Oglesby Referred Provider Specialty Hand Surgery General Notes SARA Claire Stephanie N 11/26/2023 03:09:54 PM >Verified with staff at [facility] that Dr. Oglesby accepts referrals with [place] insurance.[place] RN, Stephanie N 11/26/2023 03:17:41 PM >referral faxed. Confirmation pending.[place]akotah RN, Stephanie N 12/03/2023 09:54:25 AM > Fax was successfully sent.[place]akotah RN, Stephanie N 12/03/2023 09:58:11 AM >Letter mailed to pt notifying her of the referral. Message also sent via messenger. See letter and messenger logs. Clinical Notes Dr. Asif Jain e, [facility], [address], [address], [place] [address], , Referral Priority Routine Medications Medication SIG (Take, Route, Frequency, Duration) Notes Start Date End Date Status Aspirin Low Dose 81 mg TAKE 1 TABLET BY MOUTH DAILY for 28 Active SUMAtriptan Succinate 50 mg TAKE 1 TABLET BY MOUTH TWICE A DAY AT START OF HEADACHE as NEEDED (AT LEAST 2 HOURS BETWEEN DOSES) Active Citalopram Hydrobromide 20 mg 1 tablet by oral route once daily for 30 days Active Propranolol HCl 20 mg TAKE 1 TABLET BY M OUTH TWICE A DAY Active Fexofenadine HCl 180 mg TAKE 1 TABLET BY MOUTH DAILY WITH WATER. DO NOT TAKE WITH FRUIT JUICE Active Famotidine 20 mg TAKE 1 TABLET BY NUVIA TH TWICE A DAY Active Meclizine HCl 25 mg 1 TABLET NEEDED O RALLY TWICE A DAY 10 DAYS for 10 Activ e Losartan Potassium-HCTZ 100-12.5 MG 1 tablet Orally Once a day A ctive Zolpidem Tartrate 10 mg TAKE 1 TABLET BY MOUTH EVERY NIGHT AT BEDTIME IF NEEDED for 30 days 03/08/2024 Active Mounjaro 10 MG/0.5ML as directed Subcutaneous Active Vitamin D 25 MCG (1000 UT) 1 tablet Orally Once a day Active Zolpidem Tartrate 10 mg TAKE 1 TABLET BY MOUTH EVERY NIGHT AT BEDTIME IF NEEDED for 30 days 02/10/2024 Active busPIRone HCl 7.5 MG 1 tablet Orally onc e daily OR 0.5 tablet twice daily, whichever patient prefers for 30 days Active metFORMIN HCl 1000 MG 1 tablet with a me al Orally two times per day Active HumaLOG as directed Subcutan eous per pump Active Atorvastatin Calcium 80 MG 1 tablet Orally Once a day Active Immunizations Vaccine Route Administration Date Status Comme nts COVID-19 Moderna Booster IM Intramuscular 01/04/2021 Administered COVID-19 Moderna 1ST IM Intramuscular 03/04/2020 Administered COVID-19 Moderna 1ST IM Intramuscular 04/01/2020 Administered EUA date 0. Screening reviewed and consent signed. Patient tolerated well. Social History Tobacco Use: Social History Observation Description Date Details (start date - stop date) Current Smoker NA - NA Sex Assigned At : Social History Observation Description Sex Assigned At Female Dont use, Tobacco Use/Smoking Question Answer Notes Are you a nonsmoker Alcohol Screen (Audit-C) Question Answer Notes Did you have a drink containing alcohol in the p ast year? Yes Tobacco Control (Standard) Question Answer Notes Tobacco use: Current smoker Section Notes: [id number] 09/20/2022 09/20/2022 Zolpidem Tartrate 28.0 28 10 MG NA Stefania Meek [facility]np[place] - [id number] [place] 0 [place] 1 [id number] 08/26/2022 07/31/2022 Zolpidem Tartrate 28.0 28 10 MG Stefania Santillan Fnpbc - [id number] [place] 1 [id number] 09/20/2022 09/20/2022 Zolpidem Tartrate 28.0 28 10 MG Stefania Santillan Fnp- - [id number] [place] 1 [id number] 08/26/2022 07/31/2022 Zolpidem Tartrate 28.0 28 10 MG NA [facility]fania Meek [facility] - [id number] [place] 1 [id number] 09/20/2022 09/20/2022 Zolpidem Tartrate 28.0 28 10 MG Stefania Santillan Fnpbc - [id number] [place] 1 [id number] 08/26/2022 07/31/2022 Zolpidem Tartrate 28.0 28 10 MG Stefania Santillan [facility] - [id number] [place] 1 [id number] 09/20/2022 09/20/2022 Zolpidem Tartrate 28.0 28 10 MG Stefania Santillan [facility] - [id number] [place] 0 [place] 1 [id number] 08/26/2022 07/31/2022 Zolpidem Tartrate 28.0 28 10 MG Stefania Santillan [facility] - [id number] [place] 1 [id number] 09/20/2022 09/20/2022 Zolpidem Tartrate 28.0 28 10 MG Stefania Santillan [facility] - [id number] [place] 1 [id number] 08/26/2022 07/31/2022 Zolpidem Tartrate 28.0 28 10 MG Stefania Santillan [facility] - [id number] [place] 1 [id number] 09/20/2022 09/20/2022 Zolpidem Tartrate 28.0 28 10 MG Stefania Santillan [facility] - [id number] [place] 1 [id number] 08/26/2022 07/31/2022 Zolpidem Tartrate 28.0 28 10 MG Stefania Santillan [facility] - [id number] [place] [employer] 1 [id number] 09/20/2022 09/20/2022 Zolpidem Tartrate 28.0 28 10 MG Stefania Santillan [facility] - [id number] [place] [employer] 1 [id number] 08/26/2022 07/31/2022 Zolpidem Tartrate 28.0 28 10 MG Stefania Santillan Fnpkoffi - [id number] [place] 1 [id number] 09/20/2022 09/20/2022 Zolpidem Tartrate 28.0 28 10 MG Stefania Santillan Fnpbc - [id number] [place] 1 [id number] 08/26/2022 07/31/2022 Zolpidem Tartrate 28.0 28 10 MG NA Stefania Meek [employer]-bc - [id number] [place] 1 [place] 1 [id number] 09/20/2022 09/20/2022 Zolpidem Tartrate 28.0 28 10 MG NA Stefania Meek, [facility] - [id number] [place] [employer] 0 [place] 1 [id number] 08/26/2022 07/31/2022 Zolpidem Tartrate 28.0 28 10 MG NA Stefania Meek, [facility] - [id number] [place] [employer] NA 1 [place] 1 [id number] 09/20/2022 09/20/2022 Zolpidem Tartrate 28.0 28 10 MG NA Stefania Meek, [facility] - [id number] [employer] 0 [place] 1 [id number] 08/26/2022 07/31/2022 Zolpidem Tartrate 28.0 28 10 MG NA Stefania Meek, [facility] - [id number] [employer] 1 [place] 1 [id number] 09/20/2022 09/20/2022 Zolpidem Tartrate 28.0 28 10 MG NA Stefania Meek, [facility]- - [id number] [place] [employer] NA 0 [place] 1 [id number] 08/26/2022 07/31/2022 Zolpidem Tartrate 28.0 28 10 MG NA Stefania Meek, [facility]-bc - [id number] [place] 1 Problems Problem Type SNOMED Code ICD Code Onset Dates Problem Status W/U Status Risk Notes Problem 029457358 Type 2 diabetes mellitus without complications (E11.9) Active confirmed Problem Tobacco user (968288501) Nicotine dependence, unspecified, uncomplicated (F17.200) Active confirmed Problem 47566483 Other chronic pa in (G89.29) Active confirmed Problem 86174040058161686 Pain in right shoulder (M25.511) Active confirmed Problem Tobacco dependence (73244252) Tobacco dependence (F17.200) Active confirmed Problem Hypertension (74416837) Hypertension (I10) Active confirmed Problem Hyperlipidemia (12630714) Hyperlipidemia (E78.5) Active confirmed Problem Depression (844276049) Depression (F32.9) Active confirmed Problem 56538539 Anxiety (F41.9) Active confirmed Problem Displacement of lumbar intervertebral disc without myelopathy (84821479) Low back pain due to displacement of intervertebral disc (M51.26) Active confirmed Problem 433284413 Obesity (BMI 30-39.9) (E66.9) Active confirmed Problem 780445162 Insomnia, unspecified type (G47.00) Active confirmed Problem 152994411 Migraine without aura and without status migrainosus, not intractable (G43.009) Active confirmed Problem 176817963 Gastroesophageal reflux disease without esophagitis (K21.9) Active confirmed Problem 04581204 Carpal tunnel syndrome of right wrist (G56.01) Active confirmed Problem 353070899 Tobacco use disorder (F17.200) Active confirmed Problem Obesity (268765252) Obesity, unspecified classification, unspecified obesity type, unspecified whether serious comorbidity present (E66.9) Active confirmed Problem 07437554 Current mild episode of major depressive disorder without prior episode (F32.0) Active confirmed Problem Grief (888671808) Grief (F43.21) Active confirmed mom 08/2020 Problem Diabetic renal disease (777335833) Type 2 diabetes mellitus with chronic kidney disease, without long-term current use of insulin, unspecified CKD stage (E11.22) Active confirmed Problem Peripheral arterial disease (049574504) Peripheral arterial disease (I73.9) Active confirmed Problem 37981525 Nicotine withdrawal (F17.203) Active confirmed Vital Signs Heart Rate 79 /min 09/25/2023 Temperature 96.5 degrees Fahrenheit 04/04/2023 Respiratory Rate 16 /min 09/25/2023 Oximetry 98 % 09/25/2023 Blood pressure diastolic 64 mm Hg 09/25/2023 Height 65 in 03/03/2024 Blood pressure systolic 110 mm Hg 09/25/2023 Weight 200 lbs 03/03/2024 BMI 33.28 kg/m2 03/03/2024 Encounters Encounter Location Date Provider Diagnosis [address] [address] 03/24/2023 Eron Holliday [address] [address] 04/18/2023 Eron Holliday Right shoulder pain, unspecified chronicity M25.[address] [address] 04/23/2023 Eron Holliday [facility] [address] [place] [address] 04/28/2023 Eron Holliday [address] [address] 06/05/2023 Eron Holliday [address] [address] 11/04/2023 Eron Holliday Trigger index finger of right hand M65.[address] [address] 01/14/2024 George Caldwell Insomnia, unspecifie d type G47.[address] [address] 01/21/2024 George Caldwell [address] [address] 04/04/2023 Eron Holliday Right shoulder pain, unspecified chronicity M25.511 ; Obesity (BMI 30-39.9) E66.9 and Nutritional counseling Z71.[address] [address] 09/25/2023 Eron Holliday Type 2 diabetes mellitus without complications E11.9 ; Viral upper respiratory tract infection J06.9 ; Obesity (BMI 30-39.9) E66.9 and Nutritional counseling Z71.[address] [address] 08/19/2023 Eron Holliday Preoperative clearance Z01.818 ; Obesity (BMI 30-39.9) E66.9 and Nutritional counseling Z71.[address] [address] 04/15/2023 Stefaniaedison Meek Insomnia, unspecifie d type G47.00 ; Current mild episode of major depressive disorder without prior episode F32.0 and Anxiety F41.[address] [address] 09/02/2023 Stefania Fantasma Current mild episode of major depressive disorder without prior episode F32.0 ; Insomnia, unspecified type G47.00 and Anxiety F41.[address] [address] 10/08/2023 Stefania Fantasma Current mild episode of major depressive disorder without prior episode F32.0 ; Insomnia, unspecified type G47.00 and Anxiety F41.[address] [address] 01/21/2024 George Caldwell Anxiety F41.9 ; Depression F32.9 ; Insomnia, unspecified type G47.00 and Nicotine dependence, unspecified, uncomplicated F17.[address] [address] 03/03/2024 George Caldwell Depression F32.9 ; Anxiety F41.9 ; Insomnia, unspecified type G47.00 and Nicotine dependence, unspecified, uncomplicated F17.200 Assessments Encounter Date Diagnosis (ICD Code) Assessment Notes Treatment Notes Treatment Clinical Notes Section Notes 04/04/2023 Obesity (BMI 30-39.9) (ICD-10 - E66.9) 04/04/2023 Right shoulder pain, unspecified chronicity (ICD-10 - M25.511) Pain medication to get to upcoming ortho appt. She understands this is not a chronic medication and will not be refilled. 04/15/2023 Insomnia, unspecified type (ICD-10 - G47.00) ilpmp reviewed. 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 Denies side effects at this time. 04/18/2023 Right shoulder pain, unspecified chronicity (ICD-10 - M25.511) 08/19/2023 Obesity (BMI 30-39.9) (ICD-10 - E66.9) 08/19/2023 Preoperative clearance (ICD-10 - Z01.818) No further issues at this time. Will sign clearance form from surgeon upon receipt. 09/02/2023 Current mild episode of major depressive disorder without prior episode (ICD-10 - F32.0) Pt reports that she is tolerating Citalopram well; encouraged pt to schedule appt with therapist. Pt denies SI/HI at this time. PHQ-9 score is 2 today. 10/08/2023 Current mild episode of major depressive disorder without prior episode (ICD-10 - F32.0) Pt reports that she is tolerating Citalopram well; Pt denies SI/HI at this time. PHQ-9 score is 3 today. 09/25/2023 Type 2 diabetes mellitus without complications (ICD-10 - E11.9) 09/25/2023 Viral upper respiratory tract infection (ICD-10 - J06.9) OTC remedies as needed, f/u if symptoms change or worsen. 11/04/2023 Trigger index finger of right hand (ICD-10 - M65.321) 01/21/2024 Depression (ICD-10 - F32.9) See assessment and plan for anxiety 01/21/2024 Anxiety (ICD-10 - F41.9) Duration (acute/chronic), stability (controlled/uncontroll ed): Chronic, well controlled, has been working with previous provider to taper off of medications slowly due to parts counterman stability, wanting to continue to taper medications, [...] techniques, such as guided imagery, journaling, aromatherapy, acupuncture/acupressur e, deep breathing, etc. Practice healthy sleep hygiene [...] response/tolerability. Consider other medication adjustments as needed. 01/14/2024 Insomnia, unspecified type (ICD-10 - G47.00) 03/03/2024 Depression (ICD-10 - F32.9) See assessment and plan for anxiety 03/03/2024 Anxiety (ICD-10 - F41.9) Duration (acute/chronic), stability (controlled/uncontroll ed): Chronic, well controlled, has been working with previous provider to taper off of medications slowly due to parts counterman stability, wanting to continue to taper medications, see HPI Current medications/efficacy: Yes Previous medication trials: Venlafaxine (ineffective), sertraline, fluoxetine, paroxetine Current/previous therapies: Examination as documented - see pertinent aspects of office visit documentation. Pertinent diagnostics: LABS MONITORED BY PCP AND OTHER MEDICAL PROVIDERS Differential diagnoses: RECOMMENDATIONS: DECREASE buspirone as prescribed/discussed - educated patient/guardian on adverse [...] techniques, such as guided imagery, journaling, aromatherapy, acupuncture/acupressur e, deep breathing, etc. Practice healthy sleep hygiene [...] response/tolerability. Consider other medication adjustments as needed. 10/08/2023 Insomnia, unspecified type (ICD-10 - G47.00) ilpmp reviewed. 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 Denies side effects at this time. Educated pt not to take Ambien at the same time as pain meds. 01/21/2024 Insomnia, unspecified type (ICD-10 - G47.00) Duration (acute/chronic), stability (controlled/uncontroll ed): Chronic, well controlled on current medications Current [...] techniques, such as guided imagery, journaling, aromatherapy, acupuncture/acupressur e, deep breathing, etc. Practice healthy sleep hygiene [...] NEXT STEP: Consider medication adjustments as needed. 09/25/2023 Obesity (BMI 30-39.9) (ICD-10 - E66.9) 09/02/2023 Insomnia, unspecified type (ICD-10 - G47.00) ilpmp reviewed. Pt has been taking Ambien retirement and reports that she has been sleeping well. Denies side effects at this time. 08/19/2023 Nutritional counseling (ICD-10 - Z71.3) 04/15/2023 Current mild episode of major depressive disorder without prior episode (ICD-10 - F32.0) Pt reports that she is tolerating Citalopram well; encouraged pt to schedule appt with therapist. Pt denies SI/HI at this time. PHQ-9 score is 2 today. 04/04/2023 Nutritional counseling (ICD-10 - Z71.3) 04/15/2023 Anxiety (ICD-10 - F41.9) Pt reports that her anxiety is under control at this time. Pt reports that she is going through a lot of medical issues at this time. Reports that she is tolerating med well at this time. Denies side effects at this time. 09/02/2023 Anxiety (ICD-10 - F41.9) Pt reports that her anxiety has increased since last visit; will increase Buspar to 7.5mg BID to aid anxiety. Reports that she is tolerating med well at this time. Denies side effects at this time. 10/08/2023 Anxiety (ICD-10 - F41.9) Pt reports that her anxiety is overall controlled at this time. Reports that she is tolerating med well at this time. Denies side effects at this time. 09/25/2023 Nutritional counseling (ICD-10 - Z71.3) 01/21/2024 Nicotine dependence, unspecified, uncomplicated (ICD-10 - F17.200) Duration (acute/chronic), stability (controlled/uncontroll ed): Chronic, Vapes daily, contemplating quitting - quit [...] health CRISIS, please reach out to [phone] ([place] [facility]icide and Crisis [facility]eline), 911, go to the emergency department, or contact the [facility] Crisis Unit/Team. Follow up as scheduled or sooner if necessary. Follow up with PCP and/or other specialists as advised. NEXT STEP: Consider MAT as needed. 03/03/2024 Insomnia, unspecified type (ICD-10 - G47.00) Duration (acute/chronic), stability (controlled/uncontroll ed): Chronic, well controlled on current medications Current [...] techniques, such as guided imagery, journaling, aromatherapy, acupuncture/acupressur e, deep breathing, etc. Practice healthy sleep hygiene [...] NEXT STEP: Consider medication adjustments as needed. 03/03/2024 Nicotine dependence, unspecified, uncomplicated (ICD-10 - F17.200) Duration (acute/chronic), stability (controlled/uncontroll ed): Chronic, Vapes daily, contemplating quitting - quit [...] health CRISIS, please reach out to [phone] ([place] [facility]icide and Crisis [facility]eline), 911, go to the emergency department, or contact the [facility] Crisis Unit/Team. Follow up as scheduled or sooner if necessary. Follow up with PCP and/or other specialists as advised. NEXT STEP: Consider MAT as needed. 04/15/2023 Other Discussed treat ment planDiscussed sleep hygiene and caffeine intakeReturn to clinic 8 weeksEncouraged counselingDiscussed treatment plan; patient is agreeable and accepting of treatment plan. Patient denies further questions or concerns at this time. The Patient/Guardian asked appropriate questions, appeared to understand the answers, and decided to accept the treatment and continue being followed.The Patient/Guardian is aware of the need to contact the office or return for an earlier appointment if any problems or concerns arise. May also contact the 24-hour crisis hotline (R), refer to the closest emergency room or call 911 if new symptoms arise of existing symptoms worsen; the Patient/Guardian is aware that this would apply to symptoms such as: suicidal ideation, homicidal ideation, high risk behaviors, manic symptoms, psychotic symptoms, physical symptoms, or any other symptoms that may be dangerous to self or others. 09/02/2023 Other Discussed treat ment planDiscussed sleep hygiene and caffeine intakeReturn to clinic 4 weeksPt reports that she had labs completed per PCP Encouraged counselingDiscussed treatment plan; patient is agreeable and accepting of treatment plan. Patient denies further questions or concerns at this time. The Patient/Guardian asked appropriate questions, appeared to understand the answers, and decided to accept the treatment and continue being followed.The Patient/Guardian is aware of the need to contact the office or return for an earlier appointment if any problems or concerns arise. May also contact the 24-hour crisis hotline ([facility]), refer to the closest emergency room or call 911 if new symptoms arise of existing symptoms worsen; the Patient/Guardian is aware that this would apply to symptoms such as: suicidal ideation, homicidal ideation, high risk behaviors, manic symptoms, psychotic symptoms, physical symptoms, or any other symptoms that may be dangerous to self or others. 10/08/2023 Other Discussed treat ment planDiscussed sleep hygiene and caffeine intakeReturn to clinic 4 weeksEncouraged counselingDiscussed treatment plan; patient is agreeable and accepting of treatment plan. Patient denies further questions or concerns at this time. The Patient/Guardian asked appropriate questions, appeared to understand the answers, and decided to accept the treatment and continue being followed.The Patient/Guardian is aware of the need to contact the office or return for an earlier appointment if any problems or concerns arise. May also contact the 24-hour crisis hotline ([facility]), refer to the closest emergency room or call 911 if new symptoms arise of existing symptoms worsen; the Patient/Guardian is aware that this would apply to symptoms such as: suicidal ideation, homicidal ideation, high risk behaviors, manic symptoms, psychotic symptoms, physical symptoms, or any other symptoms that may be dangerous to self or others. Plan Of Treatment Pending Test Test Name Order Date Nerve conduction study: right hand 09/14 Insurance Providers Payer Name Payer Address Payer Phone Subscriber Number Group Number Insured Name Patient Relationship to Insured Coverage Start Date Coverage End Date [facility] [address] [place] [address] [id number] Sandy Lopez Self - patient is the insured 0 2 [facility] Attn Claims Department [address] [place] [address] [phone] [id number] Sandy Lopez Self - patient is the insured 2 [facility] Attn Claims Department [address] [place] [address] [phone] [id number] Sandy Lopez Self - patient is the insured 3 Medical (General) History Medical History History ICD Code Major depressive disorder, single episod e, unspecified Diabetes Anxiety disorder, unspecified chronic pain vertigo Surgical History Surgery Date(Month/Year) ablation C- sections 1987,1989,1992 stents in right leg 2018,2019 right knee surgery 2015 tonsillectomy- as a kid Cyst removal 04/17 CTR right 09/2021 R elbow 09/2021 Left wrist ganglion cyst removal-Anderso n 05/2022 total knee replacement 10/06/23 Hospitalization History Reason Date(Month/Year) total knee replacement 10/06/2023 Right knee replacement 09/2023 right knee 04/2020 suicide attempt (back in [place]) 201 6
--- OUTSIDE RECORDS SUMMARY | 2024-03-03 15:47 | XMS_ITS ---
Author Organization [facility] Address [address] [place] [address] Care Team Providers Care Center Director Name Role Phone Holliday, Eron Primary Care Provider Christie Karimi Unavailable [phone] George Caldwell Unavailable [phone] REASON FOR VISIT refill request Medications Medication SIG (Take, Route, Fr equency, Duration) Notes Start Date End Date Status Zolpidem Tartrate 10 mg TAKE 1 TABLET BY MOUTH EVERY NIGHT AT BEDTIME IF NEEDED for 28 days 01/14/2024 Active Social History Sex Assigned At : Social History Observation Description Sex Assigned At Female Encounters Encounter Location Date Provider Diagnosis [address] [address] 01/14/2024 George Caldwell Insomnia, unspecifie d type G47.00 Assessments Encounter Date Diagnosis (ICD Code) Assessment Notes Treatment Notes Treatment Clinical Notes Section Notes 01/14/2024 Insomnia, unspecified type (ICD-10 - G47.00) Plan Of Treatment Medication Medication Name Sig Start Date Stop Date Notes Zolpidem Tartrate 10 mg TAKE 1 TABLET BY MOUTH EVERY NIGHT AT BEDTIME IF NEEDED for 28 days 01/14/2024 Progress Notes * LOPEZLibbyJulienB:1965 ([age] yo F)Acc No.[id number]:01/14/2024 Patient:?Sandy LOPEZ :1965???Age:58 Y???Sex:Female Address:[address] [place] [address], [id number] * Refills? Refill Zolpidem Tartrate Tablet, 10 mg, 30, TAKE 1 TABLET BY MOUTH EVERY NIGHT AT BEDTIME IF NEEDED, 28 days, Refills=0 * true * Date:? Generated for Dena helms/Jelly/Marianaitting on:?03/03/2024 03:47 PM [employer]
--- OUTSIDE RECORDS SUMMARY | 2024-03-03 15:47 | XMS_ITS | Clinical Summary ---
Author Organization [facility] Address [address] [place] [phone] Phone Care Team Providers Care Strap Setter Name Role Phone Vilma Herrera PA-C Primary Care Provider Allergies Active Allergy Reactions Criticality Noted Date Comments Codeine Vomiting 06/09/2020 Medications aspirin (ST CHERRY) 81 MG EC tablet Take 81 mg by mouth 1 (one) time each day Active atorvastatin (LIPITOR) 80 MG tablet Take 80 mg by mouth 1 (one) time each day Active cetirizine (ZyrTEC) 10 MG tablet Take 10 mg by mouth 1 (one) time each day Active citalopram (CeleXA) 40 MG tablet Take 20 mg by mouth 1 (one) time each day Active clopidogrel (PLAVIX) 75 MG tablet Take 75 mg by mouth 1 (one) time each day Active estradiol (ESTRACE) 0.5 MG tablet Take 0.5 mg by mouth 1 (one) time each day Active ezetimibe (ZETIA) 10 MG tablet Take 10 mg by mouth 1 (one) time each day Active hydroCHLOROthiaz ariadna (HYDRODIURIL) 12.5 MG tablet Take 12.5 mg by mouth 1 (one) time each day Active metFORMIN (GLUCOPHAGE) 1000 MG tablet Take 1,000 mg by mouth 2 (two) times a day with meals Active norethindrone (AYGESTIN) 5 MG tablet Take 5 mg by mouth 1 (one) time each day Active zolpidem (AMBIEN) 10 MG tablet Take 10 mg by mouth at night if needed for sleep Active losartan (COZAAR) 50 MG tablet Take 50 mg by mouth 1 (one) time each day Active Dulaglutide (TRULICITY SC) Inject 3.5 mg under the skin per week Inject 1 mg under the skin per week. Active cyclobenzaprine (FLEXERIL) 10 MG tablet Take 10 mg by mouth every night Active Tirzepatide (Mounjaro) 5 MG/0.5ML solution pen-injector Inject 5 mg under the skin per week Active Active Problems No known active problems Family History Medical History Relation Comments Asthma Brother COPD Brother Diabetes Father Kidney disease Father Stroke Father Cancer Mother Heart disease Mother Relation Status Comments Brother Alive Father Other Mother Social History Tobacco Use Types Packs/Day Years Used Date Smoking Tobacco: Former Cigarettes Q uit: 2019 Smokeless Tobacco: Never Tobacco Cessation:Counseling Given: Not Answered Alcohol Use Standard Drinks/Week Comments Never 0 (1 standard drink = 0.6 oz pur e alcohol) Comments Unknown Sex and Gender Information Value Date Recorded Sex Assigned at Not on file Legal Sex Female 10:45 AM EDT Gender Identity Not on file Sexual Orientation Not on file Last Filed Vital Signs Vital Sign Reading Time Taken Comments Blood Pressure 130/90 11/07/2021 10:57 AM CDT Pulse 81 11/07/2021 10:57 AM CDT Temperature 36.1 ??C (97 ??F) 11/07/2021 10:57 AM CDT Respiratory Rate - - Oxygen Saturation 96% 11/07/2021 10:57 AM CDT Inhaled Oxygen Concentration - - Weight 96.2 kg (212 lb) 11/07/2021 10:57 AM CDT Height 165.1 cm (5' 5 ) 11/07/2021 10:57 AM CDT Body Mass Index 35.28 11/07/2021 10:57 AM CDT Plan of Treatment Upcoming Encounters Date Type Department Care Team (Late st Contact Info) Description 05/11/2024 9:30 AM CDT Office Visit [facility] [address] [place] [id number] Leobardo Bhagat MD [address] [place] [id number] Health Maintenance Due Date Last Done Comments Breast Cancer Screening 1965 Hepatitis B Vaccine (1 of 3 - 19+ 3-dose series) 06/09/1986 Pneumococcal Vaccine: Pediat rics (0 to 5 Years) and At-Risk Patients (6 to 64 Years) (2 of 2 - PCV) 02/24/1990 02/24/1989 Colorectal Cancer Screening: Annual FOBT 06/09/2016 Colorectal Cancer Screening: Colonoscopy 06/09/2016 Colorectal Cancer Screening: Sigmoidoscopy 06/09/2016 Diabetes: Ophthalmology Exam 06/09/2020 08/01/2017 Diabetes: Pedal Pulse Checked 06/09/2020 Diabetes: Sensory Foot Exam 06/09/2020 Diabetes: Visual Foot Exam 06/09/2020 Diabetes: Hemoglobin A1C 07/29/2023 024, 10/29/2022, 07/19/2022, Additional history exists Influenza Vaccine (#1) 2023 , 11/12/2018, 10/29/2017, Additional history exists Procedures Procedure Name Priority Date/Time Associated Diagnosis Comments HEMOGLOBIN A1C Routine 12/01/2020 from Last 3 Months or Most Recently Relevant to Health Maintenance Results * (ABNORMAL) Hemoglobin A1c (12/01/2020) Hemoglobin A1C 8.2(A) 4.0 - 5.7 Blood (Blood, Venous) 12/01/2020 Historical Provider LAB BLOOD ORDERABLES Patti l Result from Last 3 Months or Most Recently Relevant to Health Maintenance Insurance (MHPIL) Care Teams Strap Setter Relationship Specialty Start Date End Date Vilma Herrera PA-C PCP - General Physician Sports Intern 10/31/22
--- OUTSIDE RECORDS SUMMARY | 2024-03-03 15:48 | XMS_ITS | Encounter Summary ---
Author Organization [facility] Address [address] [place] [address] Phone Care Team Providers Care Clothing Sorter Name Role Phone Vilma Herrera PA-C Primary Care Provider [phone] Encounter Details Date Type Department Care Team (Late Contact Info) Description 05/01/2023 Documentation Only [facility] [address] [place] [address] Leobardo Bhagat MD [address] [place] [address] Social History Tobacco Use Types Packs/Day Years Used Date Smoking Tobacco: Former Cigarettes Q uit: 2020 Smokeless Tobacco: Never Alcohol Use Standard Drinks/Week Comments Never 0 (1 standard drink = 0.6 oz pur e alcohol) Comments Unknown Sex and Gender Information Value Date Recorded Sex Assigned at Not on file Legal Sex Female 10:45 AM EDT Gender Identity Not on file Sexual Orientation Not on file documented as of this encounter Plan of Treatment Upcoming Encounters Date Type Department Care Team (Late Contact Info) Description 05/11/2024 9:30 AM CDT Office Visit [facility] [address] [place] [address] Leobardo Bhagat MD [address] [place] [address] documented as of this encounter Visit Diagnoses Not on filedocumented in this encounter Care Teams Clothing Sorter Relationship Specialty Start Date End Date Vilma Herrera PA-C PCP - General Physician Station Usher 10/31/22 documented as of this encounter
--- OUTSIDE RECORDS SUMMARY | 2024-03-03 15:48 | XMS_ITS | Encounter Summary ---
Author Organization [facility] Address [address] [place] [address] Phone Care Team Providers Care Ebd Teacher Name Role Phone Vilma Herrera PA-C Primary Care Provider [phone] Encounter Details Date Type Department Care Team (Late st Contact Info) Description 05/07/2023 9:30 AM CDT Office Visit [facility] [address] [address] [place] [address] Leobardo Bhagat MD [address] [facility] [facility] [place] [address] Chronic kidney disease, stage 2 (mild) (Primary Dx); Hypertension; Type 2 diabetes mellitus with diabetic nephropathy (HCC) Social History Tobacco Use Types Packs/Day [...] this encounter Patient Instructions * Patient Instructions* Leobardo Bhagat MD - 05/07/2023 9:30 AM CDT No NSAIDS - Do not take non-steroidal anti-inflammatory medications (NSAIDS) such as Ibuprofen (Advil, Motrin, etc), Naproxen (Aleve, etc), Celecoxib (Celebrex) or Ketoprofen. These common arthritis medications can cause permanent kidney damage or worsen your kidney damage. For mild occasional pain, Acetaminophen (Tylenol, etc) is safe for your kidneys. No iodinated contrast - You should avoid contrast dye used in CT scans, Angiograms or other tests because this type of dye can injure your kidneys. Sometimes using that type of contrast dye is essential but in that instance be certain that your marketing writer is contacted so that care can be taken toprotect your kidneys before the test is done. documented in this encounter Progress Notes * Leobardo Bhagat MD - 05/07/2023 9:30 AM CDT Images from the original note were not included. CKD2, stable, asymptomatic, uncomplicated. Assessment & Plan 1. Chronic kidney disease, stage 2 (mild) 2. Hypertension 3. Type 2 diabetes mellitus with diabetic nephropathy (HCC) Orders Placed This Encounter Hemoglobin A1c Renal function panel CBC and differential Protein / creatinine ratio, urine Creatinine clearance, urine, 24 hour Diet No Added Salt Return in 1 year (on 05/06/2024). History of Present Illness The following portions of the patient's chart were reviewed in this encounter and updated as appropriate: Allergies Meds Problems Med Hx Surg Hx Fam Hx Review of Systems ROS Physical Exam There were no vitals taken for this visit. Vitals reviewed. Labs Labs/VS No data to display Leobardo Bhagat MD documented in this encounter Plan of Treatment Upcoming Encounters Date Type Department Care Team (Late st Contact Info) Description 05/11/2024 9:30 AM CDT Office Visit [facility] [address] [facility] [facility] [address] [place] [address] Leobardo Bhagat MD [address] [facility] [address] [place] [address] Scheduled Orders Name Type Priority Associated Diagnoses Orde r Schedule Hemoglobin A1c Lab Routine Chronic kidney disease, stage 2 (mild) Hypertension Type 2 diabetes mellitus with diabetic nephropathy (HCC) Expected: 05/05/2024, Expires: 06/05/2024 Renal function panel Lab Routine Chronic kidney disease, stage 2 (mild) Hypertension Type 2 diabetes mellitus with diabetic nephropathy (HCC) Expected: 05/05/2024, Expires: 06/05/2024 CBC and differential Lab Routine Chronic kidney disease, stage 2 (mild) Hypertension Type 2 diabetes mellitus with diabetic nephropathy (HCC) Expected: 05/05/2024, Expires: 06/05/2024 Protein / creatinine ratio, urine Lab Routine Chronic kidney disease, stage 2 (mild) Hypertension Type 2 diabetes mellitus with diabetic nephropathy (HCC) Expected: 05/05/2024, Expires: 06/05/2024 Creatinine clearance, urine, 24 hour Lab Routine Chronic kidney disease, stage 2 (mild) Hypertension Type 2 diabetes mellitus with diabetic nephropathy (HCC) Expected: 05/05/2024 (Approximate), Expires: 06/05/2024 documented as of this encounter Visit Diagnoses Diagnosis Chronic kidney disease, stage 2 (mild)- Primary Hypertension Type 2 diabetes mellitus with diabetic nephropathy (HCC) documented in this encounter Care Teams Ebd Teacher Relationship Specialty Start Date End Date Vilma Herrera PA-C PCP - General Physician Hydramatic Specialist 10/31/22 documented as of this encounter
--- OUTSIDE RECORDS SUMMARY | 2024-03-03 15:48 | XMS_ITS | Encounter Summary ---
Author Organization [facility] Address [address] [place] [address] Phone Care Team Providers Care Supervisor Correspondence Section Name Role Phone Unavailable Primary Care Provider Unavailabl e Encounter Details Date Type Department Care Team (Late st Contact Info) Description 05/31/2020 Documentation Only [facility] [address] [place] [address] Vilma Alfaro MA [address] [place] [address] Social History Tobacco Use Types Packs/Day Years Used Date Smoking Tobacco: Never Assessed Comments Unknown Sex and Gender Information Value Date Recorded Sex Assigned at Not on file Legal Sex Female 10:45 AM EDT Gender Identity Not on file Sexual Orientation Not on file documented as of this encounter Plan of Treatment Upcoming Encounters Date Type Department Care Team (Late st Contact Info) Description 05/11/2024 9:30 AM CDT Office Visit [facility] [address] [place] [address] Leobardo Bhagat MD [address] [place] [address] Pending Results Name Type Priority Associated Diagnoses Date /Time Microalbumin/Creatinine Rati o, Timed Urine Lab Routine 09/13/2019 documented as of this encounter Procedures Procedure Name Priority Date/Time Associated Diagnosis Comments HEMOGLOBIN A1C Routine 11/19/2019 COMPREHENSIVE METABOLIC PANEL Routine 09/24/2019 HEMOGLOBIN A1C Routine 09/13/2019 LIPID PANEL Routine 09/13/2019 documented in this encounter Results * Hemoglobin A1c (11/19/2019) Hemoglobin A1C 7.4 Blood (Blood, Venous) 11/19/2019 Result [facility] Provider LAB BLOOD ORDERABLES Patti l Result * Comprehensive Metabolic Panel (09/24/2019) Pathologist [facility] Glucose 181 mg/dL BUN 21 mg/dL Creatinine 1.14 mg/dL Sodium 138 mEq/L Potassium 4.9 mEq/L Chloride 101 Carbon Dioxide 25 mmol/L Calcium 9.5 mg/dL Albumin (Blood) 4.1 g/dL AST (SGOT) 40 U/L ALT (SGPT) 31 U/L Alkaline Phosphatase 69 U/L Total Bilirubin 0.2 MG/DL eGFR Non-Afr [place]ican 55 Blood (Blood, Venous) 09/24/2019 Result [facility] Provider LAB BLOOD ORDERABLES Patti l Result * Lipid panel (09/13/2019) Pathologist [facility] Cholesterol, Total 117 Triglycerides 239 HDL 22 mg/dL LDL-Calculated 47 Blood (Blood, Venous) 09/13/2019 Result [facility] Provider LAB BLOOD ORDERABLES Patti l Result * Hemoglobin A1c (09/13/2019) Hemoglobin A1C 7.7 Blood (Blood, Venous) 09/13/2019 Result [facility] Provider LAB BLOOD ORDERABLES Patti l Result documented in this encounter Visit Diagnoses Not on filedocumented in this encounter
--- OUTSIDE RECORDS SUMMARY | 2024-03-03 15:48 | XMS_ITS | Encounter Summary ---
Author Organization [facility] Address [address] [place] [address] Phone Care Team Providers Care Opera Singer Name Role Phone Unavailable Primary Care Provider Unavailabl e Encounter Details Date Type Department Care Team (Late Contact Info) Description 12/28/2020 Documentation Only [facility] [address] [place] [address] Pam Alfaro MA [address] [facility] [place] [address] Social History Tobacco Use Types [...] Description 05/11/2024 9:30 AM CDT Office Visit [facility] [address] [facility] [place] [address] Leobardo Bhagat MD [address] [facility] [place] [address] documented as of this encounter Visit Diagnoses Not on filedocumented in this encounter
--- OUTSIDE RECORDS SUMMARY | 2024-03-03 15:48 | XMS_ITS | Encounter Summary ---
Author Organization [facility] Address [address] [place] [address] Phone Care Team Providers Care Qa Architect Name Role Phone Unavailable Primary Care Provider Unavailabl e Encounter Details Date Type Department Care Team (Late Contact Info) Description 06/13/2020 Documentation Only [facility] [address] [facility] [address] [address] [address] [place] [address] Vilma Alfaro MA [address] [facility] [address] [address] [address] [place] [address] Social History Tobacco Use Types [...] Upcoming Encounters Date Type Department Care Team ([facility] Contact Info) Description 05/11/2024 9:30 AM CDT Office Visit [facility] [address] [facility] [address] [address] [address] [address] [place] [address] Leobardo Bhagat MD [address] [facility] [address] [address] [address] [place] [address] documented as of this encounter Procedures Procedure Name Priority Date/Time Associated Diagnosis Comments URINALYSIS WITH MICROSCOPIC Routine 06/09/2020 SEDIMENTATION RATE, AUTOMATED Routine 06/09/2020 CBC AND DIFFERENTIAL Routine 06/09/2020 TSH W/REFLEX TO FT4 Routine 06/09/2020 PTH, INTACT Routine 06/09/2020 RENAL FUNCTION PANEL Routine 06/09/2020 documented in this encounter Results * Sedimentation Rate (06/09/2020) Pathologist [facility] Sedimentation Rate By Modified [place] 22 1 - 30 Blood (Blood, Venous) 06/09/2020 Historical Provider MD LAB BLOOD ORDERABLES Patti l Result * (ABNORMAL) CBC and Differential (06/09/2020) [facility] WBC 8.5 3.8 - 9.9 K/uL Red Blood Cell Count 4.58 3.90 - 5.20 Hemoglobin 12.7 11.9 - 15.5 g/dL Hematocrit 40.2 35.6 - 45.5 % MCV 87.8 81.3 - 96.4 MCH 27.7 27.1 - 33.3 MCHC 31.6(A) 32.3 - 35.7 RDW 46.3 35.7 - 48.1 Platelet Count 391 150 - 400 MPV 10.6 9.1 - 12.3 Absolute Neutrophils 4.4 1.7 - 6.5 Absolute Lymphocytes 3.2 0.8 - 3.3 Absolute Monocytes 0.6 0.2 - 0.8 Absolute Eosinophils 0.2 0.0 - 0.5 Absolute Basophils 0.1 0.0 - 0.1 Neutrophils 51.5 K/uL Lymphocytes 38.0 Monocytes 7.3 Eosinophils 2.2 Basophils 0.8 Blood (Blood, Venous) 06/09/2020 Historical Provider MD LAB BLOOD ORDERABLES Patti l Result * Urinalysis with microscopic (06/09/2020) Pathologist [facility] Color, Urine Yellow Yellow Clarity, Urine Clear Clear Urine Specific [place] 1.023 1.010 - 1.025 pH Urine 6.0 Leukocyte Esterase UA Negative Negative Nitrite, Urine Negative Negative Protein, Urine 3+ Negative Glucose, Urine 3+ Negative Ketones, Urine Negative Negative Urobilinogen, Urine <2.0 <2.0 Bilirubin, Urine Negative Negative Blood, Urine Trace Negative WBC, Urine 6-10 0 - 5 RBC, Urine 0-2 0 - 2 Bacteria, Urine Trace Urine (Urine, Clean Catch) 06/09/2020 Result [facility] Provider MD LAB URINE ORDERABLES Patti l Result * PTH, Intact (06/09/2020) Pathologist [facility] Parathyroid Hormone, Intact 65 15 - 65 pg/mL Blood (Blood, Venous) 06/09/2020 Result [facility] LAB BLOOD ORDERABLES Patti l Result * TSH w/reflex to FT4 (06/09/2020) Pathologist [facility] TSH 1.56 0.30 - 4.20 Blood (Blood, Venous) 06/09/2020 Result [facility] LAB BLOOD ORDERABLES Patti l Result * Renal Function Panel (06/09/2020) Pathologist [facility] Glucose 113 70 - 199 mg/dL BUN 16 8 - 25 mg/dL Creatinine 0.94 0.60 - 1.10 mg/dL Comment:Cr+ was 1.14 on 09/23 Sodium 140 135 - 145 mEq/L Potassium 4.8 3.3 - 4.9 mEq/L Chloride 102 97 - 110 Carbon Dioxide 26 22 - 32 mmol/L Calcium 9.5 8.5 - 10.3 mg/dL Phosphorus, Serum 3.4 2.3 - 4.5 mg/dL Albumin (Blood) 4.0 3.5 - 5.0 g/dL eGFR Non-Afr [place] 69 Blood (Blood, Venous) 06/09/2020 Result [facility] Provider MD LAB BLOOD ORDERABLES Patti l Result documented in this encounter Visit Diagnoses Not on filedocumented in this encounter
--- OUTSIDE RECORDS SUMMARY | 2024-03-03 15:48 | XMS_ITS | Encounter Summary ---
Author Organization [facility] Address [address] [place] [address] Phone Care Team Providers Care Animal Control Licensing Worker Name Role Phone Unavailable Primary Care Provider Unavailabl e Reason for Visit * Reason Comments Follow-up Encounter Details Date Type Department Care Team (Late st Contact Info) Description 01/02/2021 10:45 AM SPRING COVERER Office Visit [facility] 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); Hypertension; Persistent proteinuria Social History Tobacco Use Types Packs/Day Years [...] Sign Reading Time Taken Comments Blood Pressure 112/71 01/02/2021 10:52 AM SPRING COVERER Pulse 83 01/02/2021 10:52 AM SPRING COVERER Temperature 36.1 ??C (96.9 ??F) 01/02/2021 10:[address] Respiratory Rate - - Oxygen Saturation 96% 01/02/2021 10:52 AM SPRING COVERER Inhaled Oxygen Concentration - - Weight 98.4 kg (217 lb) 01/02/2021 10:52 AM SPRING COVERER Height 165.1 cm (5' 5 ) 01/02/2021 10:52 AM SPRING COVERER Body Mass Index 36.11 01/02/2021 10:52 AM SPRING COVERER documented in this encounter Patient Instructions * Patient Instructions* Leobardo Bhagat MD - 01/02/2021 10:45 AM SPRING COVERER No NSAIDS - Do not take non-steroidal [...] in that instance be certain that your inspecting engineer is contacted so that care can be taken toprotect your kidneys before the test is done. documented in this encounter Progress Notes * Leobardo Bhagat MD - 01/02/2021 10:45 AM CST CKD1: normal creaclearance. Diabetic nephropathy, Stage 4. Assessment & Plan 1. Type 2 diabetes mellitus with diabetic nephropathy (HCC) 2. Hypertension 3. Persistent proteinuria Orders Placed This Encounter ??? CBC and Differential ??? Renal function panel ??? Protein / creatinine ratio, urine ??? Diet No Added Salt Return in 6 months (on 07/02/2021). History of Present Illness The following portions of the patient's chart were reviewed in this encounter and updated as appropriate: Tobacco Allergies Meds Problems Med Hx Surg Hx Fam Hx Review of Systems ROS Physical Exam BP 112/71 (BP Location: Right forearm) Pulse 83 Temp 96.9 ??F (Temporal) Ht 5' 5 (1.651 m) Wt 217 lb (98.4 kg) SpO2 96% BMI 36.11 kg/m?? Physical Exam Labs Labs Some values may be hidden. Unless noted otherwise, only the newest values recorded on each date aredisplayed. Vitals 06/09/20 12/01/20 12/23/20 01/02/21 Weight 226 lb (103 kg) 217 lb (98.4 kg) Height 5' 5 (1.651 m) 5' 5 (1.651 m) BP 150/80 112/71 Pulse 80 83 Renal Lab Latest Ref Range 06/09/20 12/01/20 12/23/20 01/02/21 Sodium 135 - 145 mEq/L 140 Potassium 3.3 - 4.9 mEq/L 4.8 Chloride 97 - 110 102 Bicarbonate (CO2) 22 - 32 mmol/L 26 BUN 8 - 25 mg/dL 16 Creatinine Serum 0.60 - 1.10 mg/dL 0.94 0.82 GFR EST NON 69 82 Glucose 70 - 199 mg/dL 113 Hemoglobin A1C 4.0 - 5.7 8.2 (A) Albumin (Blood) 3.5 - 5.0 g/dL 4.0 Calcium 8.5 - 10.3 mg/dL 9.5 Phosphorus 2.3 - 4.5 mg/dL 3.4 PTH, Intact 15 - 65 pg/mL 65 (A) Abnormal value Anemia Labs Latest Ref Range 06/09/20 12/01/20 12/23/20 01/02/21 WBC 3.8 - 9.9 K/uL 8.5 Hemoglobin 11.9 - 15.5 g/dL 12.7 Hematocrit 35.6 - 45.5 % 40.2 Platelets 150 - 400 391 Gen Med Labs 06/09/20 12/01/20 12/23/20 01/02/21 No data to display. Serology Lab 06/09/20 12/01/20 12/23/20 01/02/21 No data to display. Urine Labs Latest Ref Range 06/09/20 12/01/20 12/23/20 01/02/21 Protein,mg/24Hr Urine 0 - 150 mg/24 H 2,160 (A) Color, Urine Yellow Yellow Clarity, Urine Clear Clear Nitrite, Urine Negative Negative Protein Urine Negative 3+ Specific [place] Urine 1.010 - 1.025 1.023 pH Urine 6.0 Leukocyte Esterase UA Negative Negative Glucose, Urine Negative 3+ Ketones, Urine Negative Negative Urobilinogen, Urine <2.0 <2.0 Bilirubin, Urine Negative Negative Blood, Urine Negative Trace RBC, Urine 0 - 2 0-2 Bacteria, Urine Trace (A) Abnormal value Drug Levels 06/09/20 12/01/20 12/23/20 01/02/21 No data to display. AARTI Meds No data to display. Comments are available for some flowsheets but are not being displayed. Leobardo Bhagat MD documented in this encounter Plan of Treatment Upcoming Encounters Date Type Department Care Team (Late st Contact Info) Description 05/11/2024 9:30 AM CDT Office Visit [facility] [address] [place] [address] Leobardo Bhagat MD [address] [place] [id number] documented as of this encounter Procedures Procedure Name Priority Date/Time Associated Diagnosis Comments PROTEIN / CREATININE RATIO, URINE Routine 09/19/2021 Type 2 diabetes mellitus with diabetic nephropathy (HCC) Hypertension Persistent proteinuria CBC AND DIFFERENTIAL Routine 09/19/2021 Type 2 diabetes mellitus with diabetic nephropathy (HCC) Hypertension Persistent proteinuria RENAL FUNCTION PANEL Routine 09/19/2021 Type 2 diabetes mellitus with diabetic nephropathy (HCC) Hypertension Persistent proteinuria documented in this encounter Results * (ABNORMAL) Protein / creatinine ratio, urine (09/19/2021) Creatinine, Urine Random 172.2 mg/dL PRINT/EXTERNA L (NON-INTERFAC ED LABS) Urine Protein/Creati nine Ratio 3,484.3(A) 0.0 - 180.0 mg/g creat PRINT/EXTERNA L (NON-INTERFAC ED LABS) Protein Urine Random 600.0 PRINT/EXTERNA L (NON-INTERFAC ED LABS) Urine (Urine, Clean Catch) 09/19/2021 us Leobardo Bhagat MD LAB URINE ORDERABLES Final Res ult PRINT/EXTERNAL (NON-INTERFACED LABS) * Renal function panel (09/19/2021) Glucose 130 70 - 199 mg/dL PRINT/EXTERNAL (NON-INTERFACE D LABS) BUN 11 8 - 25 mg/dL PRINT/EXTERNAL (NON-INTERFACE D LABS) Creatinine 1.00 0.60 - 1.10 mg/dL PRINT/EXTERNAL (NON-INTERFACE D LABS) Sodium 141 135 - 145 mEq/L PRINT/EXTERNAL (NON-INTERFACE D LABS) Potassium 4.4 3.3 - 4.9 mEq/L PRINT/EXTERNAL (NON-INTERFACE D LABS) Chloride 103 97 - 110 PRINT/EXTE RNAL (NON-INTERFACE D LABS) Carbon Dioxide 29 22 - 32 mmol/L PRINT/EXTERNAL (NON-INTERFACE D LABS) Calcium 9.7 8.5 - 10.3 mg/dL PRINT/EXTERNAL (NON-INTERFACE D LABS) Phosphorus, Serum 3.3 2.3 - 4.5 mg/dL PRINT/EXTERNAL (NON-INTERFACE D LABS) Albumin (Blood) 4.2 3.5 - 5.0 g/dL PRINT/EXTERNAL (NON-INTERFACE D LABS) Blood (Blood, Venous) 09/19/2021 us Leobardo Bhagat MD LAB BLOOD ORDERABLES Final Res ult PRINT/EXTERNAL (NON-INTERFACED LABS) * CBC and Differential (09/19/2021) Pathologist [facility] WBC 9.4 3.8 - 9.9 K/uL PRINT/EXTERNAL (NON-INTERFACE D LABS) Red Blood Cell Count 4.50 3.90 - 5.20 PRINT/EXTERNAL (NON-INTERFACE D LABS) Hemoglobin 13.3 11.9 - 15.5 g/dL PRINT/EXTERNAL (NON-INTERFACE D LABS) Hematocrit 40.4 35.6 - 45.5 % PRINT/EXTERNAL (NON-INTERFACE D LABS) MCV 89.8 81.3 - 96.4 PRINT/EXTERNAL (NON-INTERFACE D LABS) MCH 29.6 27.1 - 33.3 PRINT/EXTERNAL (NON-INTERFACE D LABS) MCHC 32.9 32.3 - 35.7 PRINT/EXTERNAL (NON-INTERFACE D LABS) RDW 42.5 35.7 - 48.1 PRINT/EXTERNAL (NON-INTERFACE D LABS) Platelet Count 331 150 - 400 PRINT /EXTERNAL (NON-INTERFACE D LABS) MPV 10.0 9.1 - 12.3 PRINT/EXT ERNAL (NON-INTERFACE D LABS) Absolute Neutrophils 5.6 1.7 - 6.5 PRINT/EXTERNAL (NON-INTERFACE D LABS) Absolute Lymphocytes 3.0 0.8 - 3.3 PRINT/EXTERNAL (NON-INTERFACE D LABS) Absolute Monocytes 0.5 0.2 - 0.8 PRINT/EXTERNAL (NON-INTERFACE D LABS) Absolute Eosinophils 0.2 0.0 - 0.5 PRINT/EXTERNAL (NON-INTERFACE D LABS) Absolute Basophils 0.1 0.0 - 0.1 PRINT/EXTERNAL (NON-INTERFACE D LABS) Neutrophils 59.5 K/uL PRINT/EX TERNAL (NON-INTERFACE D LABS) Lymphocytes 32.4 PRINT/EX TERNAL (NON-INTERFACE D LABS) Monocytes 5.4 PRINT/EXTE RNAL (NON-INTERFACE D LABS) Eosinophils 1.9 PRINT/EX TERNAL (NON-INTERFACE D LABS) Basophils 0.5 PRINT/EXTE RNAL (NON-INTERFACE D LABS) Blood (Blood, Venous) 09/19/2021 us Leobardo Bhagat MD LAB BLOOD ORDERABLES Final Res ult PRINT/EXTERNAL (NON-INTERFACED LABS) documented in this encounter Visit Diagnoses Diagnosis Type 2 diabetes mellitus with diabetic nephropathy (HCC)- Primary Hypertension Persistent proteinuria documented in this encounter
--- OUTSIDE RECORDS SUMMARY | 2024-03-03 15:48 | XMS_ITS | Encounter Summary ---
Author Organization [facility] Facility Address [address] [place] [address] Care Team Providers Care Fish Roe Processor Name Role Phone Unavailable Primary Care Provider Unavailabl e Encounter Details Date Type Department Care Team (Latest Contact Info) Description 09/25/2021 Travel Social History Tobacco Use Types Packs/Day [...] on file Sexual Orientation Not on file COVID-19 Exposure Response Date Recorded In the last 10 days, have yo u been in contact with someone who was confirmed or suspected to have Coronavirus/COVID-19? No / Unsure 09/25/2021 1:50 PM CDT documented as of this encounter Plan of Treatment Upcoming Encounters Date Type Department Care Team (Late st Contact Info) Description 05/11/2024 9:30 AM CDT Office Visit [facility] [address] [facility] [address] [place] [phone] Leobardo Bhagat MD [address] [facility] [address] [address] [place] [address] documented as of this encounter Visit Diagnoses Not on filedocumented in this encounter
--- OUTSIDE RECORDS SUMMARY | 2024-03-03 15:48 | XMS_ITS | Encounter Summary ---
Author Organization [facility] Address [address] [place] [address] Phone Care Team Providers Care Assistant Hall Director Name Role Phone Unavailable Primary Care Provider Unavailabl e Encounter Details Date Type Department Care Team (Late Contact Info) Description 12/28/2020 Documentation Only [facility] [address] [facility] [facility] [address] [place] [address] Pam Alfaro MA [address] [facility] [place] [address] Social History Tobacco Use Types [...] Description 05/11/2024 9:30 AM CDT Office Visit [facility] [address] [facility] [address] [place] [address] Leobardo Bhagat MD [address] [facility] [address] [place] [address] documented as of this encounter Visit Diagnoses Not on filedocumented in this encounter
--- OUTSIDE RECORDS SUMMARY | 2024-03-03 15:48 | XMS_ITS | Encounter Summary ---
Author Organization [facility] Address [address] [address] [place] [address] Phone Care Team Providers Care Proposal Coordinator Name Role Phone Unavailable Primary Care Provider Unavailabl e Encounter Details Date Type Department Care Team (Late Contact Info) Description 12/26/2020 Documentation Only [facility] [address] [facility] [address] [place] [address] Ciara Sanders [address] [facility] [address] [address] [place] [address] Social History Tobacco Use Types [...] Description 05/11/2024 9:30 AM CDT Office Visit [facility] [address] [facility] [address] [facility] [address] [place] [address] Leobardo Bhagat MD [address] [facility] [address] [facility] [address] [place] [address] documented as of this encounter Visit Diagnoses Not on filedocumented in this encounter
--- OUTSIDE RECORDS SUMMARY | 2024-03-03 15:48 | XMS_ITS | Encounter Summary ---
Author Organization [facility] Address [address] [place] [address] Phone Care Team Providers Care Slitter Creaser Slotter Helper Name Role Phone Unavailable Primary Care Provider Unavailabl e Encounter Details Date Type Department Care Team ([facility] Contact Info) Description 12/28/2020 Documentation Only [facility] [address] [facility] [address] [place] [address] Pam Alfaro MA [address] [facility] [address] [place] [address] Social History Tobacco Use Types [...] Upcoming Encounters Date Type Department Care Team ([facility] Contact Info) Description 05/11/2024 9:30 AM CDT Office Visit [facility] [address] [facility] [address] [place] [address] Leobardo Bhagat MD [address] [facility] [address] [place] [address] documented as of this encounter Procedures Procedure Name Priority Date/Time Associated Diagnosis Comments HEMOGLOBIN A1C Routine 12/01/2020 MICROALBUMIN, RANDOM URINE (W/CREATININE) Routine 08/18/2020 documented in this encounter Results * (ABNORMAL) Hemoglobin A1c (12/01/2020) Hemoglobin A1C 8.2(A) 4.0 - 5.7 Blood (Blood, Venous) 12/01/2020 Historical Provider LAB BLOOD ORDERABLES Patti l Result * Microalbumin, Random Urine (w/Creatinine) (08/18/2020) Microalbumin Urine Random 150 Urine 08/18/2020 Historical Provider LAB URINE ORDERABLES Patti l Result documented in this encounter Visit Diagnoses Not on filedocumented in this encounter
--- OUTSIDE RECORDS SUMMARY | 2024-03-03 15:48 | XMS_ITS | Encounter Summary ---
Author Organization [facility] Address [address] [place] [address] Phone Care Team Providers Care Wad Printing Machine Operator Name Role Phone Vilma Herrera PA-C Primary Care Provider [phone] Encounter Details Date Type Department Care Team (Late st Contact Info) Description 11/04/2022 3:15 PM CDT Office Visit [facility] [address] [facility] [address] [place] [address] Leobardo Bhagat MD [address] [facility] [address] [place] [address] Stage 1 chronic kidney disease (Primary Dx); Type 2 diabetes mellitus with diabetic nephropathy (HCC); Hypertension Social History Tobacco Use Types Packs/Day Years [...] * Patient Instructions* Leobardo Bhagat MD - 11/04/2022 3:15 PM CDT No NSAIDS - Do not take [...] in that instance be certain that your package wrapper is contacted so that care can be taken toprotect your kidneys before the test is done. documented in this encounter Progress Notes * Leobardo Bhagat MD - 11/04/2022 3:15 PM CDT Images from the original note were not included. Labs are from June(24 hour urine). Her GFR is not in question. F/u 6 mos. Assessment & Plan 1. Stage 1 chronic kidney disease 2. Type 2 diabetes mellitus with diabetic nephropathy (HCC) 3. Hypertension Orders Placed This Encounter CBC and Differential Renal function panel Hemoglobin A1c Protein / creatinine ratio, urine Diet No Added Salt Return in 6 months (on 05/05/2023). History of Present Illness The following portions of the patient's chart were reviewed in this encounter and updated as appropriate: Allergies Meds Problems Med Hx Surg Hx Fam Hx Review of Systems ROS Physical Exam There were no vitals taken for this visit. Vitals reviewed. Labs Labs/VS No data to display Leboardo Bhagat MD documented in this encounter Plan of Treatment Upcoming Encounters Date Type Department Care Team (Late st Contact Info) Description 05/11/2024 9:30 AM CDT Office Visit [facility] [address] [facility] [address] [place] [address] Leobardo Bhagat MD [address] [facility] [address] [place] [address] Scheduled Orders Name Type Priority Associated Diagnoses Orde r Schedule CBC and Differential Lab Routine Stage 1 chronic kidney disease Type 2 diabetes mellitus with diabetic nephropathy (HCC) Hypertension Expected: 05/05/2023, Expires: 12/05/2023 Renal function panel Lab Routine Stage 1 chronic kidney disease Type 2 diabetes mellitus with diabetic nephropathy (HCC) Hypertension Expected: 05/05/2023, Expires: 12/05/2023 Hemoglobin A1c Lab Routine Stage 1 chronic kidney disease Type 2 diabetes mellitus with diabetic nephropathy (HCC) Hypertension Expected: 05/05/2023, Expires: 12/05/2023 Protein / creatinine ratio, urine Lab Routine Stage 1 chronic kidney disease Type 2 diabetes mellitus with diabetic nephropathy (HCC) Hypertension Expected: 05/05/2023, Expires: 12/05/2023 documented as of this encounter Visit Diagnoses Diagnosis Stage 1 chronic kidney disease- Primary Type 2 diabetes mellitus with diabetic nephropathy (HCC) Hypertension documented in this encounter Care Teams Wad Printing Machine Operator Relationship Specialty Start Date End Date Vilma Herrera PA-C PCP - General Physician Data Keyer 10/31/22 documented as of this encounter
--- OUTSIDE RECORDS SUMMARY | 2024-03-03 15:48 | XMS_ITS | Encounter Summary ---
Author Organization [facility] Address [address] [place] [address] Phone Care Team Providers Care Tumbling Machine Operator Name Role Phone Unavailable Primary Care Provider Unavailabl e Reason for Referral * Imaging (Routine) - Closed Specialty Diagnoses / Procedures Referred By Contac t Referred To Contact Diagnoses Chronic kidney disease, stage 2 (mild) Type 2 diabetes mellitus with diabetic nephropathy (HCC) Hypertension Procedures Renal Ultrasound - Complete Leobardo Bhagat MD [address] [facility] [address] [address] [place] [address] Phone: tel: fax: Referral ID Status Reason Start Date Expiration Date Visits Re quested Visits Authorized [id number] Closed 06/09/2020 12/06/2020 1 1 Reason for Visit * Reason Comments CKD New Patient Encounter Details Date Type Department Care Team (Late st Contact Info) Description 06/09/2020 10:30 AM CDT Office Visit [facility] [address] [facility] [address] [address] [place] [address] Leobardo Bhagat MD [address] [facility] [address] [facility] [place] [address] Chronic kidney disease, stage 2 (mild) (Primary Dx); Type 2 diabetes mellitus with [...] Sign Reading Time Taken Comments Blood Pressure 150/80 06/09/2020 10:37 AM CDT Pulse 80 06/09/2020 10:37 AM CDT Temperature 36.7 ??C (98 ??F) 06/09/2020 10:37 AM CDT Respiratory Rate - - Oxygen Saturation 98% 06/09/2020 10:37 AM CDT Inhaled Oxygen Concentration - - Weight 103 kg (226 lb) 06/09/2020 10:37 AM CDT Height 165.1 cm (5' 5 ) 06/09/2020 10:37 AM CDT Body Mass Index 37.61 06/09/2020 10:37 AM CDT documented in this encounter Patient Instructions * Patient Instructions* Leobardo Bhagat MD - 06/09/2020 10:30 AM CDT No NSAIDS - Do not [...] in that instance be certain that your mixer attendant is contacted so that care can be taken toprotect your kidneys before the test is done. documented in this encounter Progress Notes * Leobardo Bhagat MD - 06/09/2020 10:30 AM CDT CKD2: DM/HTN nephrosclerosis as indicated by proteinuria. Limited, largely quantitative eval. No therapeutic intervention, as the patient is enjoying improving blood sugar control and is on an ARB. Assessment & Plan 1. Chronic kidney disease, stage 2 (mild) 2. Type 2 diabetes mellitus with diabetic nephropathy (HCC) 3. Hypertension Orders Placed This Encounter ??? Renal Ultrasound - Complete ??? Renal function panel ??? CBC and Differential ??? TSH ??? PTH, intact ??? Urinalysis ??? Creatinine clearance, urine, 24 hour ??? Urine Protein, 24 hour w/o Creatinine ??? Sedimentation Rate ??? Diet No Added Salt Return in 1 month (on 07/09/2020). History of Present Illness The following portions of the patient's chart were reviewed in this encounter and updated as appropriate: Tobacco Allergies Meds Problems Med Hx Surg Hx Fam Hx Review of Systems ROS Physical Exam BP 150/80 (BP Location: Right forearm) Pulse 80 Temp 98 ??F (Temporal) Ht 5' 5 (1.651 m) Wt 226 lb (103 kg) SpO2 98% BMI 37.61 kg/m?? Physical Exam Labs Labs Some values may be hidden. Unless noted otherwise, only the newest values recorded on each date aredisplayed. Vitals 09/13/19 09/24/19 11/19/19 06/09/20 Weight 226 lb (103 kg) Height 5' 5 (1.651 m) BP 150/80 Pulse 80 Renal Lab Latest Ref Range 09/13/19 09/24/19 11/19/19 06/09/20 Sodium mEq/L 138 Potassium mEq/L 4.9 Chloride 101 Carbon Dioxide (CO2) mmol/L 25 BUN mg/dL 21 Creatinine Serum mg/dL 1.14 GFR EST NON 55 Glucose mg/dL 181 Hemoglobin A1C 7.7 7.4 Albumin (Blood) g/dL 4.1 Calcium mg/dL 9.5 Anemia Labs 09/13/19 09/24/19 11/19/19 06/09/20 No data to display. Gen Med Labs Latest Ref Range 09/13/19 09/24/19 11/19/19 06/09/20 Alkaline Phosphatase U/L 69 Bilirubin MG/DL 0.2 AST (SGOT) U/L 40 ALT (SGPT) U/L 31 Triglycerides 239 Cholesterol, Total 117 LDL-Calculated 47 HDL Calculated mg/dL 22 Serology Lab 09/13/19 09/24/19 11/19/19 06/09/20 No data to display. Urine Labs 09/13/19 09/24/19 11/19/19 06/09/20 No data to display. Drug Levels 09/13/19 09/24/19 11/19/19 06/09/20 No data to display. AARTI Meds No data to display. Leobardo Bhagat MD documented in this encounter Plan of Treatment Upcoming Encounters Date Type Department Care Team (Late st Contact Info) Description 05/11/2024 9:30 AM CDT Office Visit [facility] [address] [facility] [place] [address] Leobardo Bhagat MD [address] [facility] [address] [place] [address] Scheduled Orders Name Type Priority Associated Diagnoses Orde r Schedule Renal Ultrasound - Complete Imaging Routine Chronic kidney disease, stage 2 (mild) Type 2 diabetes mellitus with diabetic nephropathy (HCC) Hypertension Expected: 06/09/2020, Expires: 06/09/2021 documented as of this encounter Procedures Procedure Name Priority Date/Time Associated Diagnosis Comments CREATININE CLEARANCE, URINE, 24 HOUR Routine 12/23/2020 Chronic kidney disease, stage 2 (mild) Type 2 diabetes mellitus with diabetic nephropathy (HCC) Hypertension URINE PROTEIN, 24 HOUR W/O CREATININE Routine 12/23/2020 Chronic kidney disease, stage 2 (mild) Type 2 diabetes mellitus with diabetic nephropathy (HCC) Hypertension documented in this encounter Results * (ABNORMAL) Urine Protein, 24 hour w/o Creatinine (12/23/2020) Protein,mg/24H r Urine 2,160(A) 0 - 150 mg/24 H PRINT/EXTERNA L (NON-INTERFAC ED LABS) Urine (Urine, Clean Catch) 12/23/2020 us Leobardo Bhagat MD LAB URINE ORDERABLES Final Res ult PRINT/EXTERNAL (NON-INTERFACED LABS) * Creatinine clearance, urine, 24 hour (12/23/2020) Creatinine 0.82 0.60 - 1.10 mg/dL PRINT/EXTERNAL (NON-INTERFACE D LABS) Creatinine in 24 hour Urine 1.5 0.6 - 1.5 PRINT/EXTERNAL (NON-INTERFACE D LABS) Creatinine Clearance 125.00 60.00 - 130.00 mL/min PRINT/EXTERNAL (NON-INTERFACE D LABS) eGFR Non-Afr Luxembourger 82 PRINT/EXTERNAL (NON-INTERFACE D LABS) Urine (Urine, Clean Catch) 12/23/2020 us Leobardo Bhagat MD LAB URINE ORDERABLES Final Res ult PRINT/EXTERNAL (NON-INTERFACED LABS) documented in this encounter Visit Diagnoses Diagnosis Chronic kidney disease, stage 2 (mild)- Primary Type 2 diabetes mellitus with diabetic nephropathy (HCC) Hypertension documented in this encounter
--- OUTSIDE RECORDS SUMMARY | 2024-03-03 15:48 | XMS_ITS | Encounter Summary ---
Author Organization [facility] Address [address] [place] [address] Phone Care Team Providers Care Nuclear Station Operator Name Role Phone Unavailable Primary Care Provider Unavailabl e Reason for Visit * Reason Comments Follow-up Encounter Details Date Type Department Care Team (Late st Contact Info) Description 11/07/2021 11:00 AM CDT Office Visit [facility] [address] [place] [address] Leobardo Bhagat MD [address] [place] [address] Stage 3a chronic kidney disease (HCC) (Primary Dx); Type 2 diabetes mellitus with diabetic nephropathy (HCC); Hypertension; Hypertensive chronic kidney disease, unspecified, with chronic kidney disease stage I through stage IV, or unspecified; Type 2 diabetes mellitus with diabetic chronic kidney disease (HCC) Social History Tobacco Use Types Packs/Day Years Used Date Smoking Tobacco: Former Cigarettes Q uit: 2020 Smokeless Tobacco: Never Tobacco Cessation:Counseling Given: Not [...] Mass Index 35.28 11/07/2021 10:57 AM CDT documented in this encounter Patient Instructions * Patient Instructions* Leobardo Bhagat MD - 11/07/2021 11:00 AM CDT No NSAIDS - Do not [...] in that instance be certain that your utilities operator is contacted so that care can be taken toprotect your kidneys before the test is done. documented in this encounter Progress Notes * Leobardo Bhagat MD - 11/07/2021 11:00 AM CDT Severe, progressive diabetic nephropathy. Heavy proteinuria, on an ARB. Assessment & Plan 1. Stage 3a chronic kidney disease (HCC) 2. Type 2 diabetes mellitus with diabetic nephropathy (HCC) 3. Hypertension 4. Hypertensive chronic kidney disease, unspecified, with chronic kidney disease stage I through stage IV, or unspecified 5. Type 2 diabetes mellitus with diabetic chronic kidney disease (HCC) Orders Placed This Encounter CBC and Differential Hemoglobin A1c Renal function panel Creatinine clearance, urine, 24 hour Urine Protein, 24 hour w/o Creatinine Diet No Added Salt Return in 6 months (on 05/07/2022). History of Present Illness The following portions of the patient's chart were reviewed in this encounter and updated as appropriate: Allergies Meds Problems Med Hx Surg Hx Fam Hx Review of Systems ROS Physical Exam There were no vitals taken for this visit. Vitals reviewed. Labs Labs Some values may be hidden. Unless noted otherwise, only the newest values recorded on each date aredisplayed. Vitals 12/01/20 12/23/20 01/02/21 09/19/21 Weight 217 lb (98.4 kg) Height 5' 5 (1.651 m) BP 112/71 Pulse 83 Renal Lab Latest Ref Range 12/01/20 12/23/20 01/02/21 09/19/21 Sodium 135 - 145 mEq/L 141 Potassium 3.3 - 4.9 mEq/L 4.4 Chloride 97 - 110 103 Bicarbonate (CO2) 22 - 32 mmol/L 29 BUN 8 - 25 mg/dL 11 Creatinine Serum 0.60 - 1.10 mg/dL 0.82 1.00 GFR EST NON 82 Glucose 70 - 199 mg/dL 130 Hemoglobin A1C 4.0 - 5.7 8.2 (A) Albumin (Blood) 3.5 - 5.0 g/dL 4.2 Calcium 8.5 - 10.3 mg/dL 9.7 Phosphorus 2.3 - 4.5 mg/dL 3.3 (A) Abnormal value Anemia Labs Latest Ref Range 12/01/20 12/23/20 01/02/21 09/19/21 WBC 3.8 - 9.9 K/uL 9.4 Hemoglobin 11.9 - 15.5 g/dL 13.3 Hematocrit 35.6 - 45.5 % 40.4 Platelets 150 - 400 331 Gen Med Labs 12/01/20 12/23/20 01/02/21 09/19/21 No data to display. Serology Lab 12/01/20 12/23/20 01/02/21 09/19/21 No data to display. Urine Labs Latest Ref Range 12/01/20 12/23/20 01/02/21 09/19/21 Protein/Creatinine Ratio, Urine 0.0 - 180.0 mg/g creat 3,484.3 (A) Protein,mg/24Hr Urine 0 - 150 mg/24 H 2,160 (A) (A) Abnormal value Drug Levels 12/01/20 12/23/20 01/02/21 09/19/21 No data to display. AARTI Meds No data to display. Leobardo Bhagat MD documented in this encounter Plan of Treatment Upcoming Encounters Date Type Department Care Team (Late st Contact Info) Description 05/11/2024 9:30 AM CDT Office Visit [facility] [address] [place] [address] Leobardo Bhagat MD [address] [place] [address] Scheduled Orders Name Type Priority Associated Diagnoses Orde r Schedule CBC and Differential Lab Routine Stage 3a chronic kidney disease (HCC) Type 2 diabetes mellitus with diabetic nephropathy (HCC) Hypertension Hypertensive chronic kidney disease, unspecified, with chronic kidney disease stage I through stage IV, or unspecified Type 2 diabetes mellitus with diabetic chronic kidney disease (HCC) Expected: 05/07/2022, Expires: 12/07/2022 Hemoglobin A1c Lab Routine Type 2 diabetes mellitus with diabetic chronic kidney disease (HCC) Expected: 05/07/2022, Expires: 12/07/2022 Renal function panel Lab Routine Stage 3a chronic kidney disease (HCC) Type 2 diabetes mellitus with diabetic chronic kidney disease (HCC) Expected: 05/07/2022, Expires: 12/07/2022 Creatinine clearance, urine, 24 hour Lab Routine Stage 3a chronic kidney disease (HCC) Type 2 diabetes mellitus with diabetic nephropathy (HCC) Hypertension Hypertensive chronic kidney disease, unspecified, with chronic kidney disease stage I through stage IV, or unspecified Type 2 diabetes mellitus with diabetic chronic kidney disease (HCC) Expected: 05/07/2022, Expires: 11/07/2022 Urine Protein, 24 hour w/o Creatinine Lab Routine Stage 3a chronic kidney disease (HCC) Type 2 diabetes mellitus with diabetic nephropathy (HCC) Hypertension Hypertensive chronic kidney disease, unspecified, with chronic kidney disease stage I through stage IV, or unspecified Type 2 diabetes mellitus with diabetic chronic kidney disease (HCC) Expected: 05/07/2022 (Approximate), Expires: 11/07/2022 documented as of this encounter Visit Diagnoses Diagnosis Stage 3a chronic kidney disease (HCC)- Primary Type 2 diabetes mellitus with diabetic nephropathy (HCC) Hypertension Hypertensive chronic kidney disease, unspecified, with chronic kidney disease stage I through stage IV, or unspecified Type 2 diabetes mellitus with diabetic chronic kidney disease (HCC) documented in this encounter
--- OUTSIDE RECORDS SUMMARY | 2024-03-03 17:29 | XMS_ITS ---
Care Plan - [facility] Created on: March 03, 2024 SANDHYA ALFARO : 1965 Sex: Female Author Organization [facility] Address [address] [place] [phone] Phone Care Team Providers Care Customs Officer Name Role Phone АНДРЕЙ ACEVEDO APRN Primary Care Provider [phone]
--- OUTSIDE RECORDS SUMMARY | 2024-03-03 17:29 | XMS_ITS | Clinical Summary ---
Author Organization [facility] Address [address] [place] [phone] Phone Care Team Providers Care Insurance Verification Rep Name Role Phone АНДРЕЙ ACEVEDO APRN Primary Care Provider [phone] Reason for Visit and Chief Complaint POST [...] On 11/26/2021 2:12PM By Emelina VARMA ; [facility] Sulfamethoxazole-Trimethoprim 800-160 MG Oral Tablet 0 11/23/2021 Provider: Diagnosis: Last Documented On 11/26/2021 2:08PM By Emelina VARMA ; [facility] Citalopram Hydrobromide 20 MG Oral Tablet 11/21/2021 Provider: Diagnosis: Last Documented On 11/26/2021 2:03PM By Emelina VARMA ; [facility] Aspirin Low Dose 81 MG Oral Tablet Delayed Release 11/21/2021 Provider: HEIDI BOBO MD Diagnosis: Last Documented On 11/26/2021 2:03PM By Emelina VARMA ; [facility] Fexofenadine HCl 180 MG Oral Tablet 11/20/2021 Provi felipe: АНДРЕЙ ACEVEDO APRN Diagnosis: Last Documented On 11/26/2021 2:04PM By Emeilna VARMA ; [facility] Ezetimibe 10 MG Oral Tablet 11/20/2021 Provider: АНДРЕЙ ACEVEDO APRN Diagnosis: Last Documented On 11/26/2021 2:04PM By Emelina VARMA ; [facility] Famotidine 20 MG Oral Tablet 11/20/2021 Provider: АНДРЕЙ ACEVEDO APRN Diagnosis: Last Documented On 11/26/2021 2:04PM By Emelina VARMA ; [facility] Dexcom G6 Sensor Miscellaneous 11/19/2021 Provider: ALEISHA BUCHANAN MD Diagnosis: Last Documented On 11/26/2021 2:05PM By Emelina VARMA ; [facility] Estradiol 0.5 MG Oral Tablet 11/19/2021 Provider: Diagnosis: Last Documented On 11/26/2021 2:05PM By Emelina VARMA ; [facility] HumaLOG 100 UNIT/ML Injection Solution 11/19/2021 Pr ovider: DADA TYSON ANP Diagnosis: Last Documented On 11/26/2021 2:05PM By Emelina VARMA ; [facility] Losartan Potassium 100 MG Oral Tablet 11/19/2021 Pro vider: АНДРЕЙ ACEVEDO APRN Diagnosis: Last Documented On 11/26/2021 2:05PM By Emelina VARMA ; [facility] medroxyPROGESTERone Acetate 5 MG Oral Tablet Provider: Diagnosis: Last Documented On 11/26/2021 2:06PM By Emelina VARMA ; [facility] metFORMIN HCl 1000 MG Oral Tablet 11/19/2021 Provide r: DADA TYSON ANP Diagnosis: Last Documented On 11/26/2021 2:06PM By Emelina VARMA ; [facility] Omnipod DASH Pods (Gen 4) Miscellaneous 11/19/2021 P rovider: DADA TYSON ANP Diagnosis: Last Documented On 11/26/2021 2:06PM By Emelina VARMA ; [facility] Propranolol HCl 20 MG Oral Tablet 11/19/2021 Provide r: АНДРЕЙ ACEVEDO APRN Diagnosis: Last Documented On 11/26/2021 2:06PM By Emelina VARMA ; [facility] SUMAtriptan Succinate 50 MG Oral Tablet 11/19/2021 Nilton amato: Diagnosis: Last Documented On 11/26/2021 2:07PM By Emelina VARMA ; [facility] Trulicity 3 MG/0.5ML Subcuta neous Solution Pen-injector 11/19/2021 Provider: DADA TYSON ANP Diagnosis: ONCE A WEEK Last Documented On 11/26/2021 2:07PM By Emelina VARMA ; [facility] Atorvastatin Calcium 80 MG Oral Tablet 11/19/2021 Pr ovider: DADA TYSON ANP Diagnosis: Last Documented On 11/26/2021 2:04PM By Emelina VARMA ; [facility] Clopidogrel Bisulfate 75 MG Oral Tablet 11/19/2021 Nilton amato: HEIDI BOBO MD Diagnosis: Last Documented On 11/26/2021 2:05PM By Emelina VARMA ; [facility] Medications Administered Includes: Administered Medications from this encounter No Administered Medications Recorded Results Includes: Results discussed during this encounter No Results Recorded For Specified Dates History of Present Illness Includes: History of Present Illness from this encounter No History of Present Illness Recorded Social History Description Last Updated Tobacco non-user 02/14/2022 Last Documented On 3 8:45AM ; [facility] No consumption of alcohol 01/14/2022 Last Documented On 3 8:45AM ; [facility] Not using drugs 01/14/2022 Last Documented On 3 8:45AM ; [facility] Difficulty walking 11/26/2021 Last Documented On 3 8:45AM ; [facility] Smoking Status Unknown Procedures and Surgical History Surgical History Last Updated No Pacemaker 01/14/2022 Last Documented On 3 8:45AM ; [facility] Medical History Includes: Medical History addressed during this encounter Description 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 Moderate to severe pain 01/14/2022 Last Documented On 3 8:45AM ; [facility] No Pain Pump 01/14/2022 Last Documented On 3 8:45AM ; [facility] No Spinal cord stimulator 01/14/2022 Last Documented On 3 8:45AM ; [facility] Physical therapy 01/14/2022 Last Documented On 3 8:45AM ; [facility] Please list all illnesses/co nditions you have been diagnosed with: Diabetic 01/14/2022 Last Documented On 3 8:45AM ; [facility] Please list all surgeries: T onsils 73, 88,90,93, tubal 96, knee 16, 19, stint 21, carpal tunnel 12/15, elbow 11/1501/14/2022 Last Documented On 3 8:45AM ; [facility] Family History Includes: Family History addressed during this encounter Description Last Updated Maternal history of family history of is chemic heart disease 01/14/2022 Last Documented On 3 8:45AM ; [facility] Paternal history of stroke/paralysis Last Documented On 3 8:45AM ; [facility] Review of Systems Includes: Review [...] Active Last Documented On 3 8:56AM ; [facility] Encounters Encounter Provider Location Date Check-In Time Check-Out Time Diagnosis POST PROCEDURE PHONE CALL IGNACIA ORTEGA MD 03/06/2022 8:45AM 11:59PM Insurance Includes: Active Insurance Policies Plan Name Member ID Group # Subscriber Relationship Effect mounika Dates - [facility] [id number] SANDHYA ALFARO [facility] Clinical Notes Includes: Clinical Notes from this encounter No Clinical Notes Recorded
--- OUTSIDE RECORDS SUMMARY | 2024-03-03 17:29 | XMS_ITS | Clinical Summary ---
Author Organization [facility] Address [address] [place] [address] Phone Care Team Providers Care Interior Plant Caretaker Name Role Phone АНДРЕЙ ACEVEDO APRN Primary Care Provider [phone] Reason for Visit and Chief Complaint POST [...] On 11/26/2021 2:12PM By Emelina VARMA ; [facility] Sulfamethoxazole-Trimethoprim 800-160 MG Oral Tablet 0 11/23/2021 Provider: Diagnosis: Last Documented On 11/26/2021 2:08PM By Emelina VARMA ; [facility] Citalopram Hydrobromide 20 MG Oral Tablet 11/21/2021 Provider: Diagnosis: Last Documented On 11/26/2021 2:03PM By Emelina VARMA ; [facility] Aspirin Low Dose 81 MG Oral Tablet Delayed Release 11/21/2021 Provider: HEIDI BOBO MD Diagnosis: Last Documented On 11/26/2021 2:03PM By Emelina VARMA ; [facility] Fexofenadine HCl 180 MG Oral Tablet 11/20/2021 Provi felipe: АНДРЕЙ ACEVEDO APRN Diagnosis: Last Documented On 11/26/2021 2:04PM By Emelina VARMA ; [facility] Ezetimibe 10 MG Oral Tablet 11/20/2021 Provider: АНДРЕЙ ACEVEDO APRN Diagnosis: Last Documented On 11/26/2021 2:04PM By Emelina VARMA ; [facility] Famotidine 20 MG Oral Tablet 11/20/2021 Provider: АНДРЕЙ ACEVEDO APRN Diagnosis: Last Documented On 11/26/2021 2:04PM By Emelina VARMA ; [facility] Dexcom G6 Sensor Miscellaneous 11/19/2021 Provider: ALEISHA UBCHANAN MD Diagnosis: Last Documented On 11/26/2021 2:05PM By Emelina VARMA ; [facility] Estradiol 0.5 MG Oral Tablet 11/19/2021 Provider: Diagnosis: Last Documented On 11/26/2021 2:05PM By Emelina VARMA ; [facility] HumaLOG 100 UNIT/ML Injection Solution 11/19/2021 Pr ovider: DAAD TYSON ANP Diagnosis: Last Documented On 11/26/2021 2:05PM By Emelina VARMA ; [facility] Losartan Potassium 100 MG Oral Tablet 11/19/2021 Pro vider: АНДРЕЙ ACEVEDO APRN Diagnosis: Last Documented On 11/26/2021 2:05PM By Emelina VARMA ; [facility] medroxyPROGESTERone Acetate 5 MG Oral Tablet Provider: Diagnosis: Last Documented On 11/26/2021 2:06PM By Emelina VARMA ; [facility] metFORMIN HCl 1000 MG Oral Tablet 11/19/2021 Provide r: DADA TYSON ANP Diagnosis: Last Documented On 11/26/2021 2:06PM By Emelina VARMA ; [facility] Omnipod DASH Pods (Gen 4) Miscellaneous 11/19/2021 P rovider: DADA TYSON ANP Diagnosis: Last Documented On 11/26/2021 2:06PM By Emelina VARMA ; [facility] Propranolol HCl 20 MG Oral Tablet 11/19/2021 Provide r: АНДРЕЙ ACEVEDO APRN Diagnosis: Last Documented On 11/26/2021 2:06PM By Emeilna VARMA ; [facility] SUMAtriptan Succinate 50 MG Oral Tablet 11/19/2021 P rhondader: Diagnosis: Last Documented On 11/26/2021 2:07PM By Emelina VARMA ; [facility] Trulicity 3 MG/0.5ML Subcuta neous Solution Pen-injector 11/19/2021 Provider: DADA SANTOS Diagnosis: ONCE A WEEK Last Documented On 11/26/2021 2:07PM By Emelina VARMA ; [facility] Atorvastatin Calcium 80 MG Oral Tablet 11/19/2021 Pr ovider: DADA SANTOS Diagnosis: Last Documented On 11/26/2021 2:04PM By Emelina VARMA ; [facility] Clopidogrel Bisulfate 75 MG Oral Tablet 11/19/2021 Nilton amato: HEIDI BOBO MD Diagnosis: Last Documented On 11/26/2021 2:05PM By Emelina VARMA ; [facility] Medications Administered Includes: Administered Medications from this encounter No Administered Medications Recorded Results Includes: Results discussed during this encounter No Results Recorded For Specified Dates History of Present Illness Includes: History of Present Illness from this encounter No History of Present Illness Recorded Social History Description Last Updated Difficulty walking 11/26/2021 Last Documented On 1:26PM ; [facility] Smoking Status Unknown Medical History [...] Active Last Documented On 3 8:56AM ; [facility] Encounters Encounter Provider Location Date Check-In Time Check-Out Time Diagnosis POST PROCEDURE PHONE CALL CHENTE SANTOS-MITESH 02/04/2022 1:26PM 11:59PM Insurance Includes: Active Insurance Policies Plan Name Member ID Group # Subscriber Relationship Effect mounika Dates [facility] [id number] SANDHYA ALFARO Se [facility] Clinical Notes Includes: Clinical Notes from this encounter No Clinical Notes Recorded
--- OUTSIDE RECORDS SUMMARY | 2024-03-03 17:29 | XMS_ITS | Clinical Summary ---
Author Organization [facility] Address [address] [place] [id number] Phone Care Team Providers Care Pet Care Assistant Name Role Phone АНДРЕЙ ACEVEDO APRN Primary Care Provider [phone] Reason for Visit and Chief Complaint * [...] On 11/26/2021 2:12PM By Emelina VARMA ; [facility] Sulfamethoxazole-Trimethoprim 800-160 MG Oral Tablet 0 11/23/2021 Provider: Diagnosis: Last Documented On 11/26/2021 2:08PM By Emelina VARMA ; [facility] Citalopram Hydrobromide 20 MG Oral Tablet 11/21/2021 Provider: Diagnosis: Last Documented On 11/26/2021 2:03PM By Emelina VARMA ; [facility] Aspirin Low Dose 81 MG Oral Tablet Delayed Release 11/21/2021 Provider: HEIDI BOBO MD Diagnosis: Last Documented On 11/26/2021 2:03PM By Emelina VARMA ; [facility] Fexofenadine HCl 180 MG Oral Tablet 11/20/2021 Provi felipe: АНДРЕЙ ACEVEDO APRN Diagnosis: Last Documented On 11/26/2021 2:04PM By Emelina VARMA ; [facility] Ezetimibe 10 MG Oral Tablet 11/20/2021 Provider: АНДРЕЙ ACEVEDO APRN Diagnosis: Last Documented On 11/26/2021 2:04PM By Emelina VARMA ; [facility] Famotidine 20 MG Oral Tablet 11/20/2021 Provider: АНДРЕЙ ACEVEDO APRN Diagnosis: Last Documented On 11/26/2021 2:04PM By Emelina VARMA ; [facility] Dexcom G6 Sensor Miscellaneous 11/19/2021 Provider: ALESIHA BUCHANAN MD Diagnosis: Last Documented On 11/26/2021 2:05PM By Emelina VARMA ; [facility] Estradiol 0.5 MG Oral Tablet 11/19/2021 Provider: Diagnosis: Last Documented On 11/26/2021 2:05PM By Emelina VARMA ; [facility] HumaLOG 100 UNIT/ML Injection Solution 11/19/2021 Pr ovider: DADA TYSON ANP Diagnosis: Last Documented On 11/26/2021 2:05PM By Emelina VARMA ; [facility] Losartan Potassium 100 MG Oral Tablet 11/19/2021 Pro vider: АНДРЕЙ ACEVEDO APRN Diagnosis: Last Documented On 11/26/2021 2:05PM By Emelina VARMA ; [facility] medroxyPROGESTERone Acetate 5 MG Oral Tablet Provider: Diagnosis: Last Documented On 11/26/2021 2:06PM By Emelina VARMA ; [facility] metFORMIN HCl 1000 MG Oral Tablet 11/19/2021 Provide r: DADA TYSON ANP Diagnosis: Last Documented On 11/26/2021 2:06PM By Emelina VARMA ; [facility] Omnipod DASH Pods (Gen 4) Miscellaneous 11/19/2021 P rovider: DADA TYSON ANP Diagnosis: Last Documented On 11/26/2021 2:06PM By Emelina VARMA ; [facility] Propranolol HCl 20 MG Oral Tablet 11/19/2021 Provide r: АНДРЕЙ ACEVEDO APRN Diagnosis: Last Documented On 11/26/2021 2:06PM By Emelina VARMA ; [facility] SUMAtriptan Succinate 50 MG Oral Tablet 11/19/2021 Nilton ellisder: Diagnosis: Last Documented On 11/26/2021 2:07PM By Emelina VARMA ; [facility] Trulicity 3 MG/0.5ML Subcuta neous Solution Pen-injector 11/19/2021 Provider: DADA TYSON ANP Diagnosis: ONCE A WEEK Last Documented On 11/26/2021 2:07PM By Emelina VARMA ; [facility] Atorvastatin Calcium 80 MG Oral Tablet 11/19/2021 Pr ovider: DADA TYSON ANP Diagnosis: Last Documented On 11/26/2021 2:04PM By Emelina VARMA ; [facility] Clopidogrel Bisulfate 75 MG Oral Tablet 11/19/2021 Nilton amato: HEIDI BOBO MD Diagnosis: Last Documented On 11/26/2021 2:05PM By Emelina VARMA ; [facility] Medications Administered Includes: Administered Medications from this encounter No Administered Medications Recorded Results Includes: Results discussed during this encounter No Results Recorded For Specified Dates History of Present Illness Includes: History of Present Illness from this encounter HENNY ALFARO is a 56 year old female. Pharmacy name:~location:[facility]. Social History Description Last Updated Tobacco non-user 02/14/2022 Last Documented On 3 10:23AM ; [facility] No consumption of alcohol 01/14/2022 Last Documented On 3 10:23AM ; [facility] Not using drugs 01/14/2022 Last Documented On 3 10:23AM ; [facility] Difficulty walking 11/26/2021 Last Documented On 3 10:23AM ; [facility] Smoking Status Unknown Procedures and Surgical History Surgical History Last Updated No Pacemaker 01/14/2022 Last Documented On 3 10:23AM ; [facility] Medical History Includes: Medical History addressed during this encounter Description 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 Last Documented On 3 10:23AM ; [facility] Currently wearing eyeglasses 01/14/2022 Last Documented On 3 10:23AM ; [facility] Injection/Nerve blocks 01/14/2022 Last Documented On 3 10:23AM ; [facility] Moderate to severe pain 01/14/2022 Last Documented On 3 10:23AM ; [facility] No Pain Pump 01/14/2022 Last Documented On 3 10:23AM ; [facility] No Spinal cord stimulator 01/14/2022 Last Documented On 3 10:23AM ; [facility] Physical therapy 01/14/2022 Last Documented On 3 10:23AM ; [facility] Please list all illnesses/co nditions you have been diagnosed with: Diabetic 01/14/2022 Last Documented On 3 10:23AM ; [facility] Please list all surgeries: T onsils 73, 88,90,93, tubal 96, knee 16, 19, stint 21, carpal tunnel 12/15, elbow 11/1501/14/2022 Last Documented On 3 10:23AM ; [facility] Family History Includes: Family History addressed during this encounter Description Last Updated Maternal history of family history of is chemic heart disease 01/14/2022 Last Documented On 3 10:23AM ; [facility] Paternal history of stroke/paralysis Last Documented On 3 10:23AM ; [facility] Review of Systems Includes: Review of Systems [...] Active Last Documented On 3 8:56AM ; [facility] Encounters Encounter Provider Location Date Check-In Time Check-Out Time Diagnosis * PHONE CALL IGNACIA ORTEGA MD 04/05/2022 10:23AM 11:59PM Insurance Includes: Active Insurance Policies Plan Name Member ID Group # Subscriber Relationship Effect mounika Dates - [facility] [id number] SANDHYA ALFARO Se Clinical Notes Includes: Clinical Notes from this encounter * Progress note Date Encounter Last Documented by 04/05/2022 * PHONE CALL Last documented on 04/05/2022; 1:02 PM, IGNACIA ORTEGA MD; [facility] Chief Complaint Phone Call - Chief Concern: reason for call: PT CALLS IN SHE HAD HER ABLATION THIS MORNING AND SHE SAID THAT YOU MENTIONED SOME KIND OF ARTHRITIS MEDICATION FOR HER TO TAKE FOR HER PAIN. SHE IS UNABLE TO TAKE N'SAIDS THOUGH. PLEASE ADVISE pt phone # for return call:[phone] date/initials: 04-05-22 [facility]. History of Present Illness SANDHYA ALFARO is a 56 year old female. Pharmacy name:~location:[facility]. 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
--- OUTSIDE RECORDS SUMMARY | 2024-03-03 17:29 | XMS_ITS ---
Author Organization [facility] Address [address] [place] [address] Phone Care Team Providers Care Manager Wind Name Role Phone АНДРЕЙ ACEVEDO APRN Primary Care Provider [phone] Plan of Treatment Referrals To Diagnosis Pain Management [address] [address] - Spondylosis w/o myelopathy or radiculopathy, lumbar region Note: Consent for bilateral L3, L4, L5 medial branch block.Hold Plavix X7 days, no hold aspirin Last Documented On 2 11:20AM ; [facility] Pain Management [address] [address] - Spondylosis w/o myelopathy or radiculopathy, lumbar region Note: Confirmatory Bilateral L3, L4, L5 medial branch/dorsal ramus blocks (#2 of 2) under fluroscopy.Diabetic. Hold Plavix x 7 days. Hold ASA x 3 days. NO hold NSAIDs. No PIV/Abx.F/U in 7-10 days. Last Documented On 3 3:36PM ; [facility] Pain Management [address] [address] - Spondylosis w/o myelopathy or radiculopathy, lumbar [...] weeks. Last Documented On 3 3:39PM ; [facility] Education and Decision Aids were provided during visit for: Pill Count: one HYDROCODONE Last Documented On 2 2:11PM ; [facility] Assessments Includes: Assessments for all patient encounters Findings Encounter Date Chronic pain syndrome TELEHEALTH with IGNACIA ORTEGA MD 03/13/2022 Last Documented On 3 2:10PM ; [facility] Lumbar spondylosis without m yelopathy or radiculopathy TELEHEALTH with IGNACIA ORTEGA MD 03/13/2022 Last Documented On 3 2:10PM ; [facility] Myalgia TELEHEALTH with IGNACIA Mullen 03/13/2022 Last Documented On 3 2:10PM ; [facility] Sacroiliitis TELEHEALTH with IGNACIA Mullen 03/13/2022 Last Documented On 3 2:10PM ; [facility] Chronic pain syndrome TELEHEALTH with IGNACIA ORTEGA MD 02/14/2022 Last Documented On 2 12:30PM ; [facility] Lumbar spondylosis without m yelopathy or radiculopathy TELEHEALTH with IGNACIA ORTEGA MD 02/14/2022 Last Documented On 2 12:30PM ; [facility] Myalgia TELEHEALTH with IGNACIA Mullen 02/14/2022 Last Documented On 2 12:30PM ; [facility] Sacroiliitis TELEHEALTH with IGNACIA Mullen 02/14/2022 Last Documented On 2 12:30PM ; [facility] Chronic pain syndrome PAIN MANAGEMENT FO LLOW UP with CHENTE HALE ANP-BC 01/14/2022 Last Documented On 2 2:38PM ; [facility] Lumbar spondylosis without m yelopathy or radiculopathy PAIN MANAGEMENT FOLLOW UP with CHENTE HALE ANP- 01/14/2022 Last Documented On 2 2:38PM ; [facility] Myalgia PAIN MANAGEMENT FOLLOW UP with Erickson HALE ANP-BC 01/14/2022 Last Documented On 2 2:38PM ; [facility] Sacroiliitis PAIN MANAGEMENT FOLLOW UP with T ANISH PERLAS ANP-BC 01/14/2022 Last Documented On 2 2:38PM ; [facility] Chronic pain syndrome PAIN MANAGEMENT NE W CONSULT with CHENTE HALE ANP- 11/26/2021 Last Documented On 2 5:24PM ; [facility] Lumbar spondylosis without m yelopathy or radiculopathy PAIN MANAGEMENT NEW CONSULT with CHENTE HALE ANP-BC 11/26/2021 Last Documented On 2 5:24PM ; [facility] Myalgia PAIN MANAGEMENT NEW CONSULT with CHENTE HALE [facility]- 11/26/2021 Last Documented On 2 5:24PM ; [facility] Sacroiliitis PAIN MANAGEMENT NEW CONSULT with CHENTE HALE ANP-BC 11/26/2021 Last Documented On 2 5:24PM ; [facility] Instructions Includes: Instructions for all patient encounters Education and Decision Aids were provided during visit for: Pill Count: one HYDROCODONE Last Documented On 2 2:11PM ; [facility] Medical Equipment - Implanted Devices Includes: Current and historical Devices No Medical Equipment Recorded Medications Includes: Current and historical Medications Current Medications (continue as prescribed) Zolpidem Tartrate 10 MG Oral Tablet 11/26/2021 Provi felipe: Diagnosis: Last Documented On 11/26/2021 2:12PM By Emelina VARMA ; [facility] Sulfamethoxazole-Trimethoprim 800-160 MG Oral Tablet 0 11/23/2021 Provider: Diagnosis: Last Documented On 11/26/2021 2:08PM By Emelina VARMA ; [facility] Citalopram Hydrobromide 20 MG Oral Tablet 11/21/2021 Provider: Diagnosis: Last Documented On 11/26/2021 2:03PM By Emelina VARMA ; [facility] Aspirin Low Dose 81 MG Oral Tablet Delayed Release 11/21/2021 Provider: HEIDI BOBO MD Diagnosis: Last Documented On 11/26/2021 2:03PM By Emelina VARMA ; [facility] Fexofenadine HCl 180 MG Oral Tablet 11/20/2021 Provi felipe: АНДРЕЙ ACEVEDO APRN Diagnosis: Last Documented On 11/26/2021 2:04PM By Emelina VARMA ; [facility] Ezetimibe 10 MG Oral Tablet 11/20/2021 Provider: АНДРЕЙ ACEVEDO APRN Diagnosis: Last Documented On 11/26/2021 2:04PM By Emelina VARMA ; [facility] Famotidine 20 MG Oral Tablet 11/20/2021 Provider: АНДРЕЙ ACEVEDO APRN Diagnosis: Last Documented On 11/26/2021 2:04PM By Emelina VARMA ; [facility] Dexcom G6 Sensor Miscellaneous 11/19/2021 Provider: ALEISHA BUCHANAN MD Diagnosis: Last Documented On 11/26/2021 2:05PM By Emelina VARMA ; [facility] Estradiol 0.5 MG Oral Tablet 11/19/2021 Provider: Diagnosis: Last Documented On 11/26/2021 2:05PM By Emelina VARMA ; [facility] HumaLOG 100 UNIT/ML Injection Solution 11/19/2021 Pr ovider: DADA TYSON ANP Diagnosis: Last Documented On 11/26/2021 2:05PM By Emelina VARMA ; [facility] Losartan Potassium 100 MG Oral Tablet 11/19/2021 Pro vider: АНДРЕЙ ACEVEDO APRN Diagnosis: Last Documented On 11/26/2021 2:05PM By Emelina VARMA ; [facility] medroxyPROGESTERone Acetate 5 MG Oral Tablet Provider: Diagnosis: Last Documented On 11/26/2021 2:06PM By Emelina VARMA ; [facility] metFORMIN HCl 1000 MG Oral Tablet 11/19/2021 Provide r: DADA TYSON ANP Diagnosis: Last Documented On 11/26/2021 2:06PM By Emelina VARMA ; [facility] Omnipod DASH Pods (Gen 4) Miscellaneous 11/19/2021 P rovider: DADA TYSON ANP Diagnosis: Last Documented On 11/26/2021 2:06PM By Emelina VARMA ; [facility] Propranolol HCl 20 MG Oral Tablet 11/19/2021 Provide r: АНДРЕЙ ACEVEDO APRN Diagnosis: Last Documented On 11/26/2021 2:06PM By Emelina VARMA ; [facility] SUMAtriptan Succinate 50 MG Oral Tablet 11/19/2021 P rovider: Diagnosis: Last Documented On 11/26/2021 2:07PM By Emelina VARMA ; [facility] Trulicity 3 MG/0.5ML Subcuta neous Solution Pen-injector 11/19/2021 Provider: DADA TYSON ANP Diagnosis: ONCE A WEEK Last Documented On 11/26/2021 2:07PM By Emelina VARMA ; [facility] Atorvastatin Calcium 80 MG Oral Tablet 11/19/2021 Pr ovider: DADA TYSON ANP Diagnosis: Last Documented On 11/26/2021 2:04PM By Emelina VARMA ; [facility] Clopidogrel Bisulfate 75 MG Oral Tablet 11/19/2021 P rovider: HEIDI BOBO MD Diagnosis: Last Documented On 11/26/2021 2:05PM By Emelina VARMA ; [facility] Medications Administered Includes: Administered Medications in patient's chart No Administered Medications Recorded Results Includes: Results from 03/03/2023 through 03/03/2024 No Results Recorded For Specified Dates History of Present Illness History of Present Illness not supported for this document type No History of Present Illness Recorded Social History Description Last Updated Tobacco non-user 02/14/2022 Last Documented On 2 12:30PM ; [facility] No consumption of alcohol 01/14/2022 Last Documented On 2 2:38PM ; [facility] Not using drugs 01/14/2022 Last Documented On 2 2:38PM ; [facility] Difficulty walking 11/26/2021 Last Documented On 2 5:24PM ; [facility] Smoking Status Unknown Procedures and Surgical History Surgical History Last Updated No Pacemaker 01/14/2022 Last Documented On 2 2:38PM ; [facility] Medical History Includes: Medical History in patient's chart Description 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 Last Documented On 2 2:38PM ; [facility] Currently wearing eyeglasses 01/14/2022 Last Documented On 2 2:38PM ; [facility] Injection/Nerve blocks 01/14/2022 Last Documented On 2 2:38PM ; [facility] Moderate to severe pain 01/14/2022 Last Documented On 2 2:38PM ; [facility] No Pain Pump 01/14/2022 Last Documented On 2 2:38PM ; [facility] No Spinal cord stimulator 01/14/2022 Last Documented On 2 2:38PM ; [facility] Physical therapy 01/14/2022 Last Documented On 2 2:38PM ; [facility] Please list all illnesses/co nditions you have been diagnosed with: Diabetic 01/14/2022 Last Documented On 2 2:38PM ; [facility] Please list all surgeries: T onsils 73, 88,90,93, tubal 96, knee 16, 19, stint 21, carpal tunnel 12/15, elbow 11/1501/14/2022 Last Documented On 2 2:38PM ; [facility] Family History Includes: Family History in patient's chart Description Last Updated Maternal history of family history of is chemic heart disease 01/14/2022 Last Documented On 2 2:38PM ; [facility] Paternal history of stroke/paralysis Last Documented On 2 2:38PM ; [facility] Review of Systems Review of Systems not [...] Active Last Documented On 3 8:56AM ; [facility] Insurance Includes: Active Insurance Policies Plan Name Member ID Group # Subscriber Relationship Effect mounika Dates 1 - [facility] [id number] SANDHYA ALFARO Se lf Clinical Notes Includes: Signed Clinical Notes starting from 03/15/2022 No Clinical Notes Recorded
--- OUTSIDE RECORDS SUMMARY | 2024-03-03 17:29 | XMS_ITS | Clinical Summary ---
Author Organization [facility] Address [address] [place] [address] Phone Care Team Providers Care Chief Psychology Name Role Phone АНДРЕЙ ACEVEDO APRN Primary Care Provider [phone] Reason for Visit and Chief Complaint The Chief Complaint is: Patient is following up on bilateral L3, L4, L5 confirmatory medial branch blocks done on 02/27/22. Patient reports 95% relief from this procedure Plan of Treatment Referrals To [facility] Pain Management [facility] - [address] [place] [address] - Spondylosis w/o myelopathy or radiculopathy, lumbar [...] 3-4 weeks. Last Documented On 3:39PM ; [facility] Assessments Includes: Assessments from this encounter Findings - [M46.1 - Sacroiliitis, not elsewhere classified] Sacroiliitis - Last Documented On 03/13/2022 2:10PM ; [facility] - [M47.816 - Spondylosis without myelopathy or radiculopathy, lumbar region] Lumbar spondylosis without myelopathy or radiculopathy - Last Documented On 03/13/2022 2:10PM ; [facility] - [M79.18 - Myalgia, other site] Myalgia - Last Documented On 03/13/2022 2:10PM ; [facility] - [G89.4 - Chronic pain syndrome] Chronic pain syndrome - Last Documented On 03/13/2022 2:10PM ; [facility] Medical Equipment - Implanted Devices Includes: Current Devices No Medical Equipment Recorded Medications Includes: Medications discussed during this encounter and other current Medications Current Medications (continue as prescribed) Zolpidem Tartrate 10 MG Oral Tablet 11/26/2021 Provi felipe: Diagnosis: Last Documented On 11/26/2021 2:12PM By Emelina VARMA ; [facility] Sulfamethoxazole-Trimethoprim 800-160 MG Oral Tablet 0 11/23/2021 Provider: Diagnosis: Last Documented On 11/26/2021 2:08PM By Emelina VARMA ; [facility] Citalopram Hydrobromide 20 MG Oral Tablet 11/21/2021 Provider: Diagnosis: Last Documented On 11/26/2021 2:03PM By Emelina VARMA ; [facility] Aspirin Low Dose 81 MG Oral Tablet Delayed Release 11/21/2021 Provider: HEIDI BOBO MD Diagnosis: Last Documented On 11/26/2021 2:03PM By Emelina VARMA ; [facility] Fexofenadine HCl 180 MG Oral Tablet 11/20/2021 Provi felipe: АНДРЕЙ ACEVEDO APRN Diagnosis: Last Documented On 11/26/2021 2:04PM By Emelina VARMA ; [facility] Ezetimibe 10 MG Oral Tablet 11/20/2021 Provider: АНДРЕЙ ACEVEDO APRN Diagnosis: Last Documented On 11/26/2021 2:04PM By Emelina VARMA ; [facility] Famotidine 20 MG Oral Tablet 11/20/2021 Provider: АНДРЕЙ ACEVEDO APRN Diagnosis: Last Documented On 11/26/2021 2:04PM By Emelina VARMA ; [facility] Dexcom G6 Sensor Miscellaneous 11/19/2021 Provider: ALEISHA BUCHANAN MD Diagnosis: Last Documented On 11/26/2021 2:05PM By Emelina VARMA ; [facility] Estradiol 0.5 MG Oral Tablet 11/19/2021 Provider: Diagnosis: Last Documented On 11/26/2021 2:05PM By Emelina VARMA ; [facility] HumaLOG 100 UNIT/ML Injection Solution 11/19/2021 Pr ovider: DADA TYSON ANP Diagnosis: Last Documented On 11/26/2021 2:05PM By Emeilna VARMA ; [facility] Losartan Potassium 100 MG Oral Tablet 11/19/2021 Pro vider: АНДРЕЙ ACEVEDO PSYCHOLOGIST [employer]ERSON[employer]EL Diagnosis: Last Documented On 11/26/2021 2:05PM By Emelina VARMA ; [facility] medroxyPROGESTERone Acetate 5 MG Oral Tablet Provider: Diagnosis: Last Documented On 11/26/2021 2:06PM By Emelina VARMA ; [facility] metFORMIN HCl 1000 MG Oral Tablet 11/19/2021 Provide r: DADA TYSON ANP Diagnosis: Last Documented On 11/26/2021 2:06PM By Emelina VARMA ; [facility] Omnipod DASH Pods (Gen 4) Miscellaneous 11/19/2021 P rovider: DADA TYSON ANP Diagnosis: Last Documented On 11/26/2021 2:06PM By Emelina VARMA ; [facility] Propranolol HCl 20 MG Oral Tablet 11/19/2021 Provide r: АНДРЕЙ ACEVEDO APRN Diagnosis: Last Documented On 11/26/2021 2:06PM By Emelina VARMA ; [facility] SUMAtriptan Succinate 50 MG Oral Tablet 11/19/2021 P rovider: Diagnosis: Last Documented On 11/26/2021 2:07PM By Emelina VARMA ; [facility] Trulicity 3 MG/0.5ML Subcuta neous Solution Pen-injector 11/19/2021 Provider: DADA TYSON ANP Diagnosis: ONCE A WEEK Last Documented On 11/26/2021 2:07PM By Emelina VARMA ; [facility] Atorvastatin Calcium 80 MG Oral Tablet 11/19/2021 Pr ovider: DADA SANTOS Diagnosis: Last Documented On 11/26/2021 2:04PM By Emelina VARMA ; [facility] Clopidogrel Bisulfate 75 MG Oral Tablet 11/19/2021 Nilton amato: HEIDI BOBO MD Diagnosis: Last Documented On 11/26/2021 2:05PM By Emelina VARMA ; [facility] Medications Administered Includes: [...] PATIENT Last Documented: On 03/13/2022 8:56AM ; [facility] Results Includes: Results discussed during this encounter [...] this period. 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 She [...] our ability and to her satisfaction today. [place] prescription monitoring database was reviewed and found [...] expressed explicit understanding and consent to proceed. [place] prescription monitoring database was reviewed and found [...] worsened. She was seen pain management at [facility] 4-5 months and reports a planned [...] 02/14/2022 Last Documented On 3 8:52AM ; [facility] No consumption of alcohol 01/14/2022 Last Documented On 3 8:52AM ; [facility] Not using drugs 01/14/2022 Last Documented On 3 8:52AM ; [facility] Difficulty walking 11/26/2021 Last Documented On 3 8:52AM ; [facility] Smoking Status Unknown Procedures and Surgical History Includes: Procedures from this encounter Procedures Code Diagnosis Performing Provider Service L ocation Service Date use of tobacco assessment performed 1000F Last Documented On 3 9:05AM ; [facility] review of medications documented 1160F Last Documented On 3 9:05AM ; [facility] assessment of suicide risk performed Last Documented On 3 8:54AM ; [facility] screening for adult depression: impressi on and score four Last Documented On 3 8:54AM ; [facility] screening for adult depression: impressi on and score five Last Documented On 3 2:01PM ; [facility] standardized depression screening: posit mounika for symptoms Last Documented On 3 8:54AM ; [facility] Clinical summary provided to patient Last Documented On 3 9:05AM ; [facility] SOAPP-R: total score 5 Last Documented On 3 9:05AM ; [facility] Surgical History Last Updated No Pacemaker 01/14/2022 Last Documented On 3 8:52AM ; [facility] Medical History Includes: Medical History addressed during this encounter Description 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 Last Documented On 3 8:52AM ; [facility] Currently wearing eyeglasses 01/14/2022 Last Documented On 3 8:52AM ; [facility] Injection/Nerve blocks 01/14/2022 Last Documented On 3 8:52AM ; [facility] Moderate to severe pain 01/14/2022 Last Documented On 3 8:52AM ; [facility] No Pain Pump 01/14/2022 Last Documented On 3 8:52AM ; [facility] No Spinal cord stimulator 01/14/2022 Last Documented On 3 8:52AM ; [facility] Physical therapy 01/14/2022 Last Documented On 3 8:52AM ; [facility] Please list all illnesses/co nditions you have been diagnosed with: Diabetic 01/14/2022 Last Documented On 3 8:52AM ; [facility] Please list all surgeries: T onsils 73, 88,90,93, tubal 96, knee 16, 19, stint 21, carpal tunnel 12/15, elbow 11/1501/14/2022 Last Documented On 3 8:52AM ; [facility] Family History Includes: Family History addressed during this encounter Description Last Updated Maternal history of family history of is chemic heart disease 01/14/2022 Last Documented On 3 8:52AM ; [facility] Paternal history of stroke/paralysis Last Documented On 3 8:52AM ; [facility] Review of Systems Includes: Review of Systems [...] Active Last Documented On 3 8:56AM ; [facility] Encounters Encounter Provider Location Date Check-In Time Check-Out Time Diagnosis [facility]TEGA MD [facility] 03/13/19 23 8:50AM 9:04AM Chronic Pain Syndrome,Sacroili itis,Spondylosis Without Myelopathy Or Radiculopathy Lumbar Region,Myalgia , Other Site (M79.18) Insurance Includes: Active Insurance Policies Plan Name Member ID Group # Subscriber Relationship Effect mounika Dates - [facility] [id number] SANDHYA glez Clinical Notes Includes: Clinical Notes from this encounter No Clinical Notes Recorded
--- OUTSIDE RECORDS SUMMARY | 2024-03-03 17:29 | XMS_ITS | Clinical Summary ---
Author Organization [facility] Address [address] [place] [address] Phone Care Team Providers Care Chief Pilot Name Role Phone АНДРЕЙ ACEVEDO APRN Primary Care Provider [phone] Reason for Visit and Chief Complaint The [...] of Treatment Referrals To Diagnosis Pain Management [facility] - [address] [place] [address] - Spondylosis w/o myelopathy or radiculopathy, lumbar region Note: Confirmatory Bilateral L3, L4, L5 medial branch/dorsal ramus blocks (#2 of 2) under fluroscopy.Diabetic. Hold Plavix x 7 days. Hold ASA x 3 days. NO hold NSAIDs. No PIV/Abx.F/U in 7-10 days. Last Documented On 3:36PM ; [facility] Assessments Includes: Assessments from this encounter Findings - [M46.1 - Sacroiliitis, not elsewhere classified] Sacroiliitis - Last Documented On 02/14/2022 12:30PM ; [facility] - [M47.816 - Spondylosis without myelopathy or radiculopathy, lumbar region] Lumbar spondylosis without myelopathy or radiculopathy - Last Documented On 02/14/2022 12:30PM ; [facility] - [M79.18 - Myalgia, other site] Myalgia - Last Documented On 02/14/2022 12:30PM ; [facility] - [G89.4 - Chronic pain syndrome] Chronic pain syndrome - Last Documented On 02/14/2022 12:30PM ; [facility] Medical Equipment - Implanted Devices Includes: Current Devices No Medical Equipment Recorded Medications Includes: Medications discussed during this encounter and other current Medications Current Medications (continue as prescribed) Zolpidem Tartrate 10 MG Oral Tablet 11/26/2021 Provi felipe: Diagnosis: Last Documented On 11/26/2021 2:12PM By Emelina VARMA ; [facility] Sulfamethoxazole-Trimethoprim 800-160 MG Oral Tablet 0 11/23/2021 Provider: Diagnosis: Last Documented On 11/26/2021 2:08PM By Emelina VARMA ; [facility] Citalopram Hydrobromide 20 MG Oral Tablet 11/21/2021 Provider: Diagnosis: Last Documented On 11/26/2021 2:03PM By Emelina VARMA ; [facility] Aspirin Low Dose 81 MG Oral Tablet Delayed Release 11/21/2021 Provider: HEIDI BOBO MD Diagnosis: Last Documented On 11/26/2021 2:03PM By Emelina VARMA ; [facility] Fexofenadine HCl 180 MG Oral Tablet 11/20/2021 Provi felipe: АНДРЕЙ ACEVEDO APRN Diagnosis: Last Documented On 11/26/2021 2:04PM By Emelina VARMA ; [facility] Ezetimibe 10 MG Oral Tablet 11/20/2021 Provider: АНДРЕЙ ACEVEDO APRN Diagnosis: Last Documented On 11/26/2021 2:04PM By Emelina VARMA ; [facility] Famotidine 20 MG Oral Tablet 11/20/2021 Provider: АНДРЕЙ ACEVEDO APRN Diagnosis: Last Documented On 11/26/2021 2:04PM By Emelina VARMA ; [facility] Dexcom G6 Sensor Miscellaneous 11/19/2021 Provider: ALEISHA BUCHANAN MD Diagnosis: Last Documented On 11/26/2021 2:05PM By Emelina VARMA ; [facility] Estradiol 0.5 MG Oral Tablet 11/19/2021 Provider: Diagnosis: Last Documented On 11/26/2021 2:05PM By Emelina VARMA ; [facility] HumaLOG 100 UNIT/ML Injection Solution 11/19/2021 Pr ovider: DADA TYSON ANP Diagnosis: Last Documented On 11/26/2021 2:05PM By Emelina VARMA ; [facility] Losartan Potassium 100 MG Oral Tablet 11/19/2021 Pro vider: АНДРЕЙ ACEVEDO SKIMMER REVERBERATORY Diagnosis: Last Documented On 11/26/2021 2:05PM By Emelina VARMA ; [facility] medroxyPROGESTERone Acetate 5 MG Oral Tablet Provider: Diagnosis: Last Documented On 11/26/2021 2:06PM By Emelina VARMA ; [facility] metFORMIN HCl 1000 MG Oral Tablet 11/19/2021 Provide r: DADA TYSON ANP Diagnosis: Last Documented On 11/26/2021 2:06PM By Emelina VARMA ; [facility] Omnipod DASH Pods (Gen 4) Miscellaneous 11/19/2021 P rovider: DADA TYSON ANP Diagnosis: Last Documented On 11/26/2021 2:06PM By Emelina VARMA ; [facility] Propranolol HCl 20 MG Oral Tablet 11/19/2021 Provide r: АНДРЕЙ ACEVEDO SKIMMER [employer]BERATORY Diagnosis: Last Documented On 11/26/2021 2:06PM By Emelina VARMA ; [facility] SUMAtriptan Succinate 50 MG Oral Tablet 11/19/2021 P rovider: Diagnosis: Last Documented On 11/26/2021 2:07PM By Emelina VARMA ; [facility] Trulicity 3 MG/0.5ML Subcuta neous Solution Pen-injector 11/19/2021 Provider: DADA TYSON ANP Diagnosis: ONCE A WEEK Last Documented On 11/26/2021 2:07PM By Emelina VARMA ; [facility] Atorvastatin Calcium 80 MG Oral Tablet 11/19/2021 Pr ovider: DADA TYSON ANP Diagnosis: Last Documented On 11/26/2021 2:04PM By Emelina VARMA ; [facility] Clopidogrel Bisulfate 75 MG Oral Tablet 11/19/2021 Nilton amato: HEIDI BOBO MD Diagnosis: Last Documented On 11/26/2021 2:05PM By Emelina VARMA ; [facility] Medications Administered Includes: Administered Medications from this encounter No Administered Medications Recorded Vital Signs Includes: Vital Signs from this encounter Vital Name 02/14/2022 11:16A Temp-Oral (F) 99 Height (in) 65 Weight (lb) 214 Body Mass Index 35.6 Body Surface Area 2 Pain Level 3 Note: ALL VITALS GIVEN SANDRA BALLY BY PATIENT Last Documented: On 02/14/2022 11:19A M ; [facility] Results Includes: Results discussed during this [...] expressed explicit understanding and consent to proceed. [place] prescription monitoring database was reviewed and found [...] worsened. She was seen pain management at [facility] 4-5 months and reports a planned [...] 02/14/2022 Last Documented On 2 12:30PM ; [facility] No consumption of alcohol 01/14/2022 Last Documented On 2 11:11AM ; [facility] Not using drugs 01/14/2022 Last Documented On 2 11:11AM ; [facility] Difficulty walking 11/26/2021 Last Documented On 2 11:11AM ; [facility] Smoking Status Unknown Procedures and Surgical History Includes: Procedures from this encounter Procedures Code Diagnosis Performing Provider Service L ocation Service Date use of tobacco assessment performed 1000F Last Documented On 2 11:41AM ; [facility] review of medications documented 1160F Last Documented On 2 11:41AM ; [facility] screening for adult depression: impressi on and score five Last Documented On 2 11:16AM ; [facility] screening for adult depression: impressi on and score four Last Documented On 2 11:41AM ; [facility] standardized depression screening: posit mounika for symptoms Last Documented On 2 11:16AM ; [facility] Clinical summary provided to patient Last Documented On 2 11:41AM ; [facility] SOAPP-R: total score 5 Last Documented On 2 11:41AM ; [facility] Surgical History Last Updated No Pacemaker 01/14/2022 Last Documented On 2 11:11AM ; [facility] Medical History Includes: Medical History addressed during this encounter Description 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 01/14/2022 Last Documented On 2 11:11AM ; [facility] Currently wearing eyeglasses 01/14/2022 Last Documented On 2 11:11AM ; [facility] Injection/Nerve blocks 01/14/2022 Last Documented On 2 11:11AM ; [facility] Moderate to severe pain 01/14/2022 Last Documented On 2 11:11AM ; [facility] No Pain Pump 01/14/2022 Last Documented On 2 11:11AM ; [facility] No Spinal cord stimulator 01/14/2022 Last Documented On 2 11:11AM ; [facility] Physical therapy 01/14/2022 Last Documented On 2 11:11AM ; [facility] Please list all illnesses/co nditions you have been diagnosed with: Diabetic 01/14/2022 Last Documented On 2 11:11AM ; [facility] Please list all surgeries: T onsils 73, 88,90,93, tubal 96, knee 16, 19, stint 21, carpal tunnel 12/15, elbow 11/1501/14/2022 Last Documented On 2 11:11AM ; [facility] Family History Includes: Family History addressed during this encounter Description Last Updated Maternal history of family history of is chemic heart disease 01/14/2022 Last Documented On 2 11:11AM ; [facility] Paternal history of stroke/paralysis Last Documented On 2 11:11AM ; [facility] Review of Systems Includes: Review of [...] Active Last Documented On 3 8:56AM ; [facility] Encounters Encounter Provider Location Date Check-In Time Check-Out Time Diagnosis [facility]TE[facility] MD [facility] 02/15/20 11:10AM 11:37AM Chronic Pain Syndrome,Sacroili itis,Spondylosis Without Myelopathy Or Radiculopathy Lumbar Region,Myalgia , Other Site (M79.18) Insurance Includes: Active Insurance Policies Plan Name Member ID Group # Subscriber Relationship Effect mounika Dates 1 - [facility] [id number] SANDHYA ALFARO Se Clinical Notes Includes: Clinical Notes from this encounter No Clinical Notes Recorded
--- OUTSIDE RECORDS SUMMARY | 2024-03-03 17:30 | XMS_ITS | Encounter Summary ---
Author Organization [facility] Address [address] [facility] [place] [address] Phone Care Team Providers Care Intranet Specialist Name Role Phone Giselle Lamas JOSSELIN Primary Care Provider [phone] Reason for Visit * Reason Onset Date Comments Medication Refill 05/07/2019 Encounter Details Date Type Department Care Team (Late st Contact Info) Description 05/07/2019 Refill [facility] - Endocrinology - [address] [place] [id number] Steve Givens MD [address] [id number] Medication Refill Social History Tobacco Use Types [...] on filedocumented in this encounter Care Teams Intranet Specialist Relationship Specialty Start Date End Date Giselle Lamas PAC [address] [place] [address] PCP - General Physician Boot Trimmer 08/01/17 documented as of this encounter
--- OUTSIDE RECORDS SUMMARY | 2024-03-03 17:30 | XMS_ITS | Encounter Summary ---
Author Organization [facility] Health Address [address] [place] [address] Care Team Providers Care Recorder Helper Gravity Prospecting Name Role Phone Elen Hathaway APRN-SHEET METAL TECHNICIAN Primary Care P lm Encounter Details Date Type Department Care Team (Latest Contact Info) Description 12/30/2018 2:40 PM CUSTOMER ACCOUNT REPRESENTATIVE - 12/30/2018 11:59 PM [facility] Hospital Encounter [facility] DRAW STATION [address] [place] [address] Emma Borges MD [address] [address] Discharge Disposition: Home or Self Care Social [...] mouth once daily 4 12/15/2018 nystatin (MYCOSTATIN) 543005 UNIT/GM cream Apply to affected area 2 [...] ANTIBODY IGG/IGA (CCP) Routine 12/30/2018 2:42 PM CUSTOMER ACCOUNT REPRESENTATIVE Arthralgia, unspecified joint Dry eye Sicca, unspecified type (HCC) URIC ACID BLOOD Routine 12/30/2018 2:42 PM CUSTOMER ACCOUNT REPRESENTATIVE Arthralgia, unspecified joint Dry eye Sicca, unspecified type (HCC) RHEUMATOID FACTOR BLOOD QUANTITATIVE Routine 12/30/2018 2:42 PM CUSTOMER ACCOUNT REPRESENTATIVE Arthralgia, unspecified joint Dry eye Sicca, unspecified type (HCC) C-REACTIVE PROTEIN Routine 12/30/2018 2: 42 PM CUSTOMER ACCOUNT REPRESENTATIVE Arthralgia, unspecified joint Dry eye Sicca, unspecified type (HCC) SS-B (SJOGREN'S) ANTIBODY Routine 12/30/2018 2:42 PM CUSTOMER ACCOUNT REPRESENTATIVE Arthralgia, unspecified joint Dry eye Sicca, unspecified type (HCC) SS-A (SJOGREN'S) ANTIBODY Routine 12/30/2018 2:42 PM CUSTOMER ACCOUNT REPRESENTATIVE Arthralgia, unspecified joint Dry eye Sicca, unspecified type (HCC) ALDOLASE Routine 12/30/2018 2:42 PM CUSTOMER ACCOUNT REPRESENTATIVE Arthralgia, unspecified joint Dry eye Sicca, unspecified type (HCC) ERYTHROCYTE SEDIMENTATION RATE Routine 12/30/2018 2:42 PM CUSTOMER ACCOUNT REPRESENTATIVE Arthralgia, unspecified joint Dry eye Sicca, unspecified type (HCC) CBC W AUTO DIFFERENTIAL Routine 12/30/2018 2:42 PM CUSTOMER ACCOUNT REPRESENTATIVE Arthralgia, unspecified joint Dry eye Sicca, unspecified type (HCC) COMPREHENSIVE METABOLIC PANEL Routine 12/30/2018 2:42 PM CUSTOMER ACCOUNT REPRESENTATIVE Arthralgia, unspecified joint Dry eye Sicca, unspecified type (HCC) LDH BLOOD Routine 12/30/2018 2:42 PM CUSTOMER ACCOUNT REPRESENTATIVE Arthralgia, unspecified joint Dry eye Sicca, unspecified type (HCC) CK BLOOD Routine 12/30/2018 2:42 PM CUSTOMER ACCOUNT REPRESENTATIVE Arthralgia, unspecified joint Dry eye Sicca, unspecified type (HCC) documented in this encounter Results * SS-B (SJOGREN'S) ANTIBODY (12/30/2018 2:42 PM CUSTOMER ACCOUNT REPRESENTATIVE) SS-B LA Antibody 3.3 0.0 - 19.9 Units 01/01/2019 12:51 PM CUSTOMER ACCOUNT REPRESENTATIVE [facility] Comment: ROWDY Antibody Numeric Result Interpretation: ?<20.0 Units: ??Negative ?20.0 - 39.0 Units: ??Weakly Positive ?>39.0 Units: ??Positive ? Blood BLOOD SPECIMEN / Unknown Lab Venipuncture / Unknown 12/30/2018 2:42 PM CUSTOMER ACCOUNT REPRESENTATIVE 12/30/2018 3:18 PM CUSTOMER ACCOUNT REPRESENTATIVE Emma Borges MD LAB - CHEMISTRY ORDERABLES Performing Organization Address City/State/[facility] Co de Phone Number [address] [phone] * SS-A (SJOGREN'S) ANTIBODY (12/30/2018 2:42 PM CUSTOMER ACCOUNT REPRESENTATIVE) Pathologist [facility] SS-A (Ro) Antibody 3.3 0.0 - 19.9 Units 01/01/2019 12:51 PM CUSTOMER ACCOUNT REPRESENTATIVE [facility] Comment: ROWDY Antibody Numeric Result Interpretation: ?<20.0 Units: ??Negative ?20.0 - 39.0 Units: ??Weakly Positive ?>39.0 Units: ??Positive ? Blood BLOOD SPECIMEN / Unknown Lab Venipuncture / Unknown 12/30/2018 2:42 PM CUSTOMER ACCOUNT REPRESENTATIVE 12/30/2018 3:18 PM CUSTOMER ACCOUNT REPRESENTATIVE Emma Borges MD LAB - CHEMISTRY ORDERABLES Performing Organization Address [facility]/ZIP Co de Phone Number [address] [phone] * RHEUMATOID FACTOR BLOOD QUANTITATIVE (12/30/2018 2:42 PM CUSTOMER ACCOUNT REPRESENTATIVE) Rheumatoid Factor 17 <30 IU/mL 12/30/2018 4:00 PM CUSTOMER ACCOUNT REPRESENTATIVE [facility] Blood BLOOD SPECIMEN / Unknown Lab Venipuncture / Unknown 12/30/2018 2:42 PM CUSTOMER ACCOUNT REPRESENTATIVE 12/30/2018 3:19 PM CUSTOMER ACCOUNT REPRESENTATIVE Emma Borges MD LAB - CHEMISTRY ORDERABLES Performing Organization Address [facility] de Phone Number [address] [phone] * CYCLIC CITRUL PEPTIDE ANTIBODY IGG/IGA (CCP) (12/30/2018 2:42 PM CUSTOMER ACCOUNT REPRESENTATIVE) CCP Antibodies IgG/IgA 6 0 - 19 units 01/01/2019 10:06 PM CUSTOMER ACCOUNT REPRESENTATIVE [facility] ([facility]) Comment: ?Negative ? <20 ?Weak positive ?20 - 39 ?Moderate positive ??40 - 59 ?Strong positive ?>59 Blood BLOOD SPECIMEN / Unknown Lab Venipuncture / Unknown 12/30/2018 2:42 PM CUSTOMER ACCOUNT REPRESENTATIVE 12/30/2018 3:19 PM CUSTOMER ACCOUNT REPRESENTATIVE Narrative [facility] ([facility]) - 01/01/2019 10:06 PM CUSTOMER ACCOUNT REPRESENTATIVE Performed at: ??01 - [facility] [address] ??[id number] Drying Machine Tender: Raoul Herrera MD, Phone: ??[phone] Emma Borges MD LAB - SEROLOGY ORDERABLES [facility] ([facility]) [address] [place] [address] * (ABNORMAL) URIC ACID BLOOD (12/30/2018 2:42 PM CUSTOMER ACCOUNT REPRESENTATIVE) Uric Acid 7.3(H) 2.6 - 7.2 mg/dL 12/30/2018 3:56 PM CUSTOMER ACCOUNT REPRESENTATIVE [facility] Blood BLOOD SPECIMEN / Unknown Lab Venipuncture / Unknown 12/30/2018 2:42 PM CUSTOMER ACCOUNT REPRESENTATIVE 12/30/2018 3:19 PM CUSTOMER ACCOUNT REPRESENTATIVE Emma Borges MD LAB - CHEMISTRY ORDERABLES [address] [phone] * LDH BLOOD (12/30/2018 2:42 PM CUSTOMER ACCOUNT REPRESENTATIVE) LDH Total 188 125 - 243 Units/L 12/30/2018 3:54 PM CUSTOMER ACCOUNT REPRESENTATIVE [facility] Blood BLOOD SPECIMEN / Unknown Lab Venipuncture / Unknown 12/30/2018 2:42 PM CUSTOMER ACCOUNT REPRESENTATIVE 12/30/2018 3:19 PM CUSTOMER ACCOUNT REPRESENTATIVE Emma Borges MD LAB - CHEMISTRY ORDERABLES [address] [phone] * CK BLOOD (12/30/2018 2:42 PM CUSTOMER ACCOUNT REPRESENTATIVE) CK Total 126 30 - 200 Units/L 12/30/2018 3:54 PM CUSTOMER ACCOUNT REPRESENTATIVE [facility] Blood BLOOD SPECIMEN / Unknown Lab Venipuncture / Unknown 12/30/2018 2:42 PM CUSTOMER ACCOUNT REPRESENTATIVE 12/30/2018 3:19 PM CUSTOMER ACCOUNT REPRESENTATIVE Emma Borges MD LAB - CHEMISTRY ORDERABLES [facility] [address] [place] [address] * (ABNORMAL) CBC WITH DIFFERENTIAL (12/30/2018 2:42 PM CUSTOMER ACCOUNT REPRESENTATIVE) WBC 11.0(H) 3.5 - 10.5 10? 3 /uL 12/30/2018 3:37 PM [facility] RBC 4.60 3.90 - 5.00 10? 6 /uL 12/30/2018 3:37 PM [facility] Hemoglobin 13.2 12.0 - 15.5 g/dL 12/30/2018 3:37 PM [facility] Hematocrit 42.7 35.0 - 45.0 % 12/30/2018 3:37 PM [facility] MCV 92.8 81.0 - 97.0 fL 12/30/2018 3:37 PM [facility] MCH 28.7 28.0 - 34.0 pg 12/30/2018 3:37 PM [facility] MCHC 30.9(L) 32.0 - 36.0 g/dL 12/30/2018 3:37 PM [facility] Platelet Count 328 150 - 400 10? 3 /uL 12/30/2018 3:37 PM [facility] RDW-SD 44.5 36.0 - 50.0 fL 12/30/2018 3:37 PM [facility] RDW-CV 13.2 11.2 - 14.8 % 12/30/2018 3:37 PM [facility] MPV 10.7 9.3 - 12.8 fL 12/30/2018 3:37 PM [facility] nRBC Absolute 0.00 0 10? 3 /uL 12/30/2018 3:37 PM [facility] nRBC Auto 0.0 0 /100 WBC 12/30/2018 3:37 PM [facility] Neutrophils % 57.7 35.0 - 70.0 % 12/30/2018 3:37 PM [facility] Lymphocytes % 31.2 19.7 - 55.1 % 12/30/2018 3:37 PM [facility] Monocytes % 6.6 3.0 - 15.0 % 12/30/2018 3:37 PM [facility] Eosinophils % 3.5 0.0 - 6.0 % 12/30/2018 3:37 PM [facility] Basophil % 0.7 0.0 - 1.5 % 12/30/2018 3:37 PM [facility] Neutrophils Absolute 6.4 1.6 - 7.0 10? 3 /uL 12/30/2018 3:37 PM [facility] Lymphocyte Absolute 3.4(H) 0.8 - 2.9 10? 3 /uL 12/30/2018 3:37 PM [facility] Monocytes Absolute 0.73(H) 0.14 - 0.66 10? 3 /uL 12/30/2018 3:37 PM [facility] Eosinophils Absolute 0.39 0.00 - 0.45 10? 3 /uL 12/30/2018 3:37 PM [facility] Basophils Absolute 0.08(H) 0.00 - 0.06 10? 3 /uL 12/30/2018 3:37 PM [facility] Immature Granulocytes % 0.3 0.0 - 1.0 % 12/30/2018 3:37 PM [facility] Blood BLOOD SPECIMEN / Unknown Lab Venipuncture / Unknown 12/30/2018 2:42 PM CUSTOMER ACCOUNT REPRESENTATIVE 12/30/2018 3:19 PM CUSTOMER ACCOUNT REPRESENTATIVE Emma Borges MD LAB - HEMATOLOG Y ORDERABLES Performing Organization Address City/State/[facility] Co de Phone Number [address] [phone] * ALDOLASE (12/30/2018 2:42 PM CUSTOMER ACCOUNT REPRESENTATIVE) Aldolase 8.1 3.3 - 10.3 U/L 01/01/2019 4:09 PM CUSTOMER ACCOUNT REPRESENTATIVE [facility] ([facility]) Blood BLOOD SPECIMEN / Unknown Lab Venipuncture / Unknown 12/30/2018 2:42 PM CUSTOMER ACCOUNT REPRESENTATIVE 12/30/2018 3:20 PM CUSTOMER ACCOUNT REPRESENTATIVE Narrative [facility] ([facility]) - 01/01/2019 4:09 PM CUSTOMER ACCOUNT REPRESENTATIVE Performed at: ??01 - [facility] [place] [address] [place], [place] ??[id number] Drying Machine Tender: Raj Price PhD, Phone: ??[phone] Emma Borges MD LAB - CHEMISTRY ORDERABLES Performing Organization Address City/[facility]/ZIP Co de Phone Number [facility] ([facility]) [address] [place] [address] * (ABNORMAL) ERYTHROCYTE SEDIMENTATION RATE (12/30/2018 2:42 PM CUSTOMER ACCOUNT REPRESENTATIVE) Erythrocyte Sedimentation Rate Westergren 35(H) 0 - 30 MM/HR 12/30/2018 3:49 PM CUSTOMER ACCOUNT REPRESENTATIVE [facility] Blood BLOOD SPECIMEN / Unknown Lab Venipuncture / Unknown 12/30/2018 2:42 PM CUSTOMER ACCOUNT REPRESENTATIVE 12/30/2018 3:19 PM CUSTOMER ACCOUNT REPRESENTATIVE Emma Borges MD LAB - HEMATOLOG Y ORDERABLES Performing Organization Address City/[facility]/ZIP Co de Phone Number [address] [phone] * C-REACTIVE PROTEIN (12/30/2018 2:42 PM CUSTOMER ACCOUNT REPRESENTATIVE) C-Reactive Protein <0.5 <=0.5 mg/dL 12/30/2018 4:30 PM CUSTOMER ACCOUNT REPRESENTATIVE [facility] Blood BLOOD SPECIMEN / Unknown Lab Venipuncture / Unknown 12/30/2018 2:42 PM CUSTOMER ACCOUNT REPRESENTATIVE 12/30/2018 3:18 PM CUSTOMER ACCOUNT REPRESENTATIVE Emma Borges MD LAB - CHEMISTRY ORDERABLES Performing Organization Address [facility]/ZIP Co de Phone Number [address] [phone] * (ABNORMAL) COMPREHENSIVE METABOLIC PANEL (12/30/2018 2:42 PM CUSTOMER ACCOUNT REPRESENTATIVE) BUN 21 7 - 26 mg/dL 12/30/2018 3:54 PM [facility] Creatinine 0.9 0.6 - 1.2 mg/dL 12/30/2018 3:54 PM [facility] Sodium 141 136 - 145 mmol/L 12/30/2018 3:54 PM [facility] Potassium 4.4 3.5 - 4.5 mmol/L 12/30/2018 3:54 PM [facility] Chloride 105 98 - 107 mmol/L 12/30/2018 3:54 PM [facility] CO2 25 22 - 29 mmol/L 12/30/2018 3:54 PM [facility] Glucose 174(H) 70 - 115 mg/dL 12/30/2018 3:54 PM [facility] Calcium 10.8(H) 8.4 - 10.2 mg/dL 12/30/2018 3:54 PM [facility] Protein Total 7.5 6.0 - 8.3 g/dL 12/30/2018 3:54 PM [facility] Albumin 3.8 3.4 - 5.0 g/dL 12/30/2018 3:54 PM [facility] Bilirubin Total 0.2 0.2 - 1.2 mg/dL 12/30/2018 3:54 PM [facility] Alkaline Phosphatase 73 40 - 150 Units/L 12/30/2018 3:54 PM [facility] ALT 38 0 - 55 Units/L 12/30/2018 3:54 PM [facility] AST 39(H) 5 - 34 Units/L 12/30/2018 3:54 PM [facility] Anion Gap 15 8 - 18 12/30/2018 3:54 PM [facility] BUN/Creatinine Ratio 23 7 - 23 12/30/2018 3:54 PM [facility] Osmolality Calculated 299 270 - 300 mOsm/kg 12/30/2018 3:54 PM [facility] Albumin/Globulin Ratio 1.0(L) 1.1 - 2.3 12/30/2018 3:54 PM [facility] eGFR >60 >60 mL/min/1.7 3 m2 12/30/2018 3:54 PM [facility] Blood BLOOD SPECIMEN / Unknown Lab Venipuncture / Unknown 12/30/2018 2:42 PM CUSTOMER ACCOUNT REPRESENTATIVE 12/30/2018 3:19 PM CUSTOMER ACCOUNT REPRESENTATIVE Emma Borges MD LAB - CHEMISTRY ORDERABLES [facility] [address] [phone] documented in this encounter Visit Diagnoses Diagnosis Arthralgia, unspecified joint Dry eye Sicca, unspecified type (HCC) documented in this encounter Care Teams Recorder Helper Gravity Prospecting Relationship Specialty Start Date End Date Elen Hathaway, [employer] BUSINESS OBJECTS CONSULTANT-SHEET METAL TECHNICIAN [address] [place] [id number] PCP - General 09/04/18 01/04/19 documented as of this encounter
--- OUTSIDE RECORDS SUMMARY | 2024-03-03 17:30 | XMS_ITS | Encounter Summary ---
Author Organization [facility] Address [address] [place] [address] Care Team Providers Care Precision Millwright Name Role Phone Vilma Herrera PA-C Primary Care Provider + Encounter Details Date Type Department Care Team (Late st Contact Info) Description 05/19/2020 Orders Only [facility] - COVID Vaccine [address] [place] [phone] Drew Reid MD [address] [place] [address] Need for vaccination Social History Tobacco Use [...] disease documented in this encounter Care Teams Precision Millwright Relationship Specialty Start Date End Date Vilma Herrera PA-C [address] [place] [phone] PCP - General 01/05/19 documented as of this encounter
--- OUTSIDE RECORDS SUMMARY | 2024-03-03 17:30 | XMS_ITS | Encounter Summary ---
Author Organization [facility] Health Address [address] [facility] [place] [address] Care Team Providers Care Progress Man Name Role Phone Vilma Herrera PA-C Primary Care Provider + Encounter Details Date Type Department Care Team (Late st Contact Info) Description 04/24/2021 Lab Requisition [facility] [address] [facility] [place] [phone] Jack Skelton MD [address] [place] [address] Social History Tobacco Use Types Packs/Day Years [...] Comments DERMATOPATHOLOGY Routine 04/20/2021 12:0 0 AM [facility] documented in this encounter Results * DERMATOPATHOLOGY (04/20/2021 12:00 AM [facility]) Case Report Dermatopathology Report ? Case: [id number] ? Authorizing Provider: ??Jack Skelton MD ?Collected: ? 04/20/2021 12:00 AM ? Ordering Location: ? [facility] Lab ?Received: ?04/24/2021 09:34 AM ? Pathologist: ? Caitlyn Bacon, ? MD ? Specimen: ?Skin, right axilla ? 2 3:12 PM [facility] DERMATOPATHOLOGY LABORATORY Final Diagnosis Specimen A. SKIN, right axilla: EPIDERMOID CYST (L72.0) NOT PRESENT AT SAMPLED MARGIN 2 3:12 PM [facility] DERMATOPATHOLOGY LABORATORY Clinical History Cyst. Path # [id number]. Check margins. 2 3:12 PM [facility] DERMATOPATHOLOGY LABORATORY Gross Description Specimen A: Received is one formalin filled container labeled with the patient's name and designated right axilla. The specimen consists of a [id number] excision, bisected. The margin is inked green. Jar 0. 2 3:12 PM [facility] DERMATOPATHOLOGY LABORATORY Microscopic Description Specimen A. SKIN, right axilla: Within the dermis, there is a space lined by epithelium that resembles normal epidermis and the infundibular portion of the hair follicle. This lesion is not present at the sampled margin of the specimen. 2 3:12 PM [facility] DERMATOPATHOLOGY LABORATORY Disclaimer An external and internal positive and negative controls are appropriate for the histochemical, immunohistochemical and immunofluorescence stain(s) in this case (if any), except where stated explicitly. The performance characteristics of the stain(s) cited in this report were developed and its performance characteristic determined by the Dermatopathology Laboratory at [facility], directed by Dr. Boris Bustos. These tests need not be, and therefore are not, approved by the [place] Food and Drug Administration. The tests are used for clinical purposes. Billing Codes Specimen Charges Stain Charges 51351 1 2 3:12 PM [facility] DERMATOPATHOLOGY LABORATORY Embedded Images 2 3:12 PM [facility] DERMATOPATHOLOGY LABORATORY Pathology/Cytolog y TISSUE SPECIMEN FROM SKIN / Unknown 04/20/2021 04/24/2021 9:34 AM [facility] Jack Skelton MD LAB - PATHOLOGY/CYTO LOGY ORDERABLES DERMATOPATHOLOGY LABORATORY [facility] - Department of Dermatology [facility] Medicine [address] [place] [address], [address] [phone] documented in this encounter Visit Diagnoses Not on filedocumented in this encounter Care Teams Progress Man Relationship Specialty Start Date End Date Vilma Herrera PA-C [address] [place] [phone] PCP - General 01/05/19 documented as of this encounter
--- OUTSIDE RECORDS SUMMARY | 2024-03-03 17:30 | XMS_ITS | Patient Health Summary ---
Author Organization [facility] Address [address] [place] [address] Care Team Providers Care Cylinder Sander Operator Name Role Phone Vilma Herrera PA-C Primary Care Provider + Note from [facility],non-owned Affiliates and Associated Physician Practices is amultiple site organization consisting of ambulatory clinics and hospital sitesin [place], [place], [place] and [place]. This disclosure is being madepursuant to the Care Everywhere program and may not contain all information available regarding this patient. Last updated 17.[facility] Allergies * Codeine(Vomiting) -Medium Criticality * Nsaids(Other) -Medium Criticality Medications * Be aware that medications may not be up to date on this document. Alwaysverify current medications with the patient. * zolpidem (AMBIEN) 10 MG tablet Take 10 mg by mouth nightly as needed * raNITIdine (ZANTAC) 150 MG tablet Take 150 mg by mouth 2 times daily * nystatin (MYCOSTATIN) 080869 UNIT/GM cream(Started 09/19/2018) Apply to affected area [...] Comments Blood Pressure 120/64 04/14/2019 3:23 PM [employer]CH[employer] Pulse 70 04/14/2019 3:23 PM [employer] Temperature 36.9 ??C (98.4 ??F) 04/14/2019 3:23 PM CS T Respiratory Rate - - Oxygen Saturation - - Inhaled Oxygen Concentration - - Weight 110.2 kg (243 lb) 04/14/2019 3:23 PM [employer] Height 162.6 cm (5' 4 ) 04/14/2019 3:23 PM [employer] Body Mass Index 41.71 04/14/2019 3:23 PM [employer] Procedures * DERMATOPATHOLOGY(Performed 04/20/2021) * XR FOOT [...] (HCC) Results * DERMATOPATHOLOGY (04/20/2021 12:00 AM [employer]CH[employer]) Case Report Dermatopathology Report ? Case: [id number] ? Authorizing Provider: ??Jack Skelton MD ?Collected: ? 04/20/2021 12:00 AM ? Ordering Location: ? [facility] DermPath Lab ?Received: ?04/24/2021 09:34 AM ? Pathologist: ? Caitlyn Bacon, ? MD ? Specimen: ?Skin, right axilla ? 2 3:12 PM [facility] DERMATOPATHOLOGY LABORATORY Final Diagnosis Specimen A. SKIN, right axilla: EPIDERMOID CYST (L72.0) NOT PRESENT AT SAMPLED MARGIN 2 3:12 PM [facility] DERMATOPATHOLOGY LABORATORY Clinical History Cyst. Path # [id number]. Check margins. 2 3:12 PM [facility] DERMATOPATHOLOGY LABORATORY Gross Description Specimen A: Received is one formalin filled container labeled with the patient's name and designated right axilla. The specimen consists of a [id number] excision, bisected. The margin is inked green. Jar 0. 2 3:12 PM [facility] DERMATOPATHOLOGY LABORATORY Microscopic Description Specimen A. SKIN, right axilla: Within the dermis, there is a space lined by epithelium that resembles normal epidermis and the infundibular portion of the hair follicle. This lesion is not present at the sampled margin of the specimen. 2 3:12 PM [employer] DERMATOPATHOLOGY LABORATORY Disclaimer An external and internal positive and negative controls are appropriate for the histochemical, immunohistochemical and immunofluorescence stain(s) in this case (if any), except where stated explicitly. The performance characteristics of the stain(s) cited in this report were developed and its performance characteristic determined by the Dermatopathology Laboratory at [facility], directed by Dr. Boris Bustos. These tests need not be, and therefore are not, approved by the [place] Food and Drug Administration. The tests are used for clinical purposes. Billing Codes Specimen Charges Stain Charges 14909 1 2 3:12 PM [employer] DERMATOPATHOLOGY LABORATORY Embedded Images 2 3:12 PM [employer] DERMATOPATHOLOGY LABORATORY Pathology/Cytolog y TISSUE SPECIMEN FROM SKIN / Unknown 04/20/2021 04/24/2021 9:34 AM [employer] Jack Skelton MD LAB - PATHOLOGY/CYTO LOGY ORDERABLES DERMATOPATHOLOGY LABORATORY [facility] - Department of Dermatology [address] [phone] * XR FOOT RIGHT 2VW (12/30/2018 3:10 PM [employer]CH[employer]) Anatomical Region Laterality Modality Ankle / Foot Radiographic Tammi ging 12/30/2018 3:37 PM [employer] Impressions 12/30/2018 3:48 PM [employer] IMPRESSION: 1. Right hand: No arthritis. 2. Left hand: Mild degenerative change at the fifth digit distal interphalangeal joint. 3. Right and left feet: No arthritis. Dictated by Kenroy Paul MD (residential driver). I, Dr. MC POSADA MD have personally reviewed and interpreted this examination/study. This report was electronically signed by MC POSADA MD ??on 12/30/2018 3:48 PM . Narrative 12/30/2018 3:48 PM [employer] EXAMINATION: 1. XR HAND RIGHT 2VW 2. [...] No arthritis. Dictated by Kenroy Paul MD (residential driver). Dr. MC Sanches MD have personally reviewed and interpreted this examination/study. This report was electronically signed by MC POSADA MD on12/30/2018 3:48 PM . Emma Borges MD DIAGNOSTIC IMAG ING ORDERABLES * XR FOOT LEFT 2VW (12/30/2018 3:10 PM [employer]) Anatomical Region Laterality Modality Ankle / Foot Radiographic Tammi ging 12/30/2018 3:37 PM [employer] Impressions 12/30/2018 3:48 PM [employer] IMPRESSION: 1. Right hand: No arthritis. 2. Left hand: Mild degenerative change at the fifth digit distal interphalangeal joint. 3. Right and left feet: No arthritis. Dictated by Kenroy Paul MD (residential driver). Dr. MC Sanches MD have personally reviewed and interpreted this examination/study. This report was electronically signed by MC POSADA MD ??on 12/30/2018 3:48 PM . Narrative 12/30/2018 3:48 PM [employer] EXAMINATION: 1. XR HAND RIGHT 2VW 2. [...] No arthritis. Dictated by Kenroy Paul MD (residential driver). I, Dr. MC POSADA MD have personally reviewed and interpreted this examination/study. This report was electronically signed by MC POSADA MD on12/30/2018 3:48 PM . Emma Borges MD DIAGNOSTIC IMAG ING ORDERABLES * XR HAND RIGHT 2VW (12/30/2018 3:10 PM [employer]) Anatomical Region Laterality Modality Wrist / Hand Radiographic Tammi ging 12/30/2018 3:37 PM [employer] Impressions 12/30/2018 3:48 PM [employer] IMPRESSION: 1. Right hand: No arthritis. 2. Left hand: Mild degenerative change at the fifth digit distal interphalangeal joint. 3. Right and left feet: No arthritis. Dictated by Kenroy Paul MD (residential driver). I, Dr. MC POSADA MD have personally reviewed and interpreted this examination/study. This report was electronically signed by MC POSADA MD ??on 12/30/2018 3:48 PM . Narrative 12/30/2018 3:48 PM [employer] EXAMINATION: 1. XR HAND RIGHT 2VW 2. [...] No arthritis. Dictated by Kenroy Paul MD (residential driver). I, Dr. MC POSADA MD have personally reviewed and interpreted this examination/study. This report was electronically signed by MC POSADA MD on12/30/2018 3:48 PM . Emma Borges MD DIAGNOSTIC IMAG ING ORDERABLES * XR HAND LEFT 2VW (12/30/2018 3:10 PM [employer]) Anatomical Region Laterality Modality Wrist / Hand Radiographic Tammi ging 12/30/2018 3:37 PM [employer] Impressions 12/30/2018 3:48 PM [employer] IMPRESSION: 1. Right hand: No arthritis. 2. Left hand: Mild degenerative change at the fifth digit distal interphalangeal joint. 3. Right and left feet: No arthritis. Dictated by Kenroy Paul MD (residential driver). I, Dr. MC POSADA MD have personally reviewed and interpreted this examination/study. This report was electronically signed by MC POSADA MD ??on 12/30/2018 3:48 PM . Narrative 12/30/2018 3:48 PM [employer] EXAMINATION: 1. XR HAND RIGHT 2VW 2. [...] No arthritis. Dictated by Kenroy Paul MD (residential driver). I, Dr. MC POSADA MD have personally reviewed and interpreted this examination/study. This report was electronically signed by MC POSADA MD on12/30/2018 3:48 PM . Emma Borges MD DIAGNOSTIC IMAG ING ORDERABLES * CYCLIC CITRUL PEPTIDE ANTIBODY IGG/IGA (CCP) (12/30/2018 2:42 PM [employer]) CCP Antibodies IgG/IgA 6 0 - 19 units 01/01/2019 10:06 PM [employer] [facility] Comment: ?Negative ? <20 ?Weak positive ?20 - 39 ?Moderate positive ??40 - 59 ?Strong positive ?>59 Blood BLOOD SPECIMEN / Unknown Lab Venipuncture / Unknown 12/30/2018 2:42 PM [employer] 12/30/2018 3:19 PM [employer] Narrative [facility]) - 01/01/2019 10:06 PM [employer]CH[employer] Performed at: ??01 - [facility] [address] ??[id number] Engineering Illustrator: Raoul Herrera MD, Phone: ??[phone] Emma Borges MD LAB - SEROLOGY ORDERABLES [facility]) [address] [id number] * (ABNORMAL) URIC ACID BLOOD (12/30/2018 2:42 PM [employer]) Pathologist [facility] Uric Acid 7.3(H) 2.6 - 7.2 mg/dL 12/30/2018 3:56 PM [employer] [facility] Blood BLOOD SPECIMEN / Unknown Lab Venipuncture / Unknown 12/30/2018 2:42 PM [employer] 12/30/2018 3:19 PM [employer]CH[employer] Emma Borges MD LAB - CHEMISTRY ORDERABLES Performing Organization Address [facility] Co de Phone Number [address] [phone] * RHEUMATOID FACTOR BLOOD QUANTITATIVE (12/30/2018 2:42 PM [employer]) Pathologist [facility] Rheumatoid Factor 17 <30 IU/mL 12/30/2018 4:00 PM [employer] [facility] Blood BLOOD SPECIMEN / Unknown Lab Venipuncture / Unknown 12/30/2018 2:42 PM [employer] 12/30/2018 3:19 PM [employer] Emma Borges MD LAB - CHEMISTRY ORDERABLES Performing Organization Address [facility] Co de Phone Number [address] [phone] * C-REACTIVE PROTEIN (12/30/2018 2:42 PM [employer]) Pathologist [facility] C-Reactive Protein <0.5 <=0.5 mg/dL 12/30/2018 4:30 PM [employer] [facility] Blood BLOOD SPECIMEN / Unknown Lab Venipuncture / Unknown 12/30/2018 2:42 PM [employer] 12/30/2018 3:18 PM [employer] Emma Borges MD LAB - CHEMISTRY ORDERABLES Performing Organization Address [facility] de Phone Number [address] [phone] * SS-B (SJOGREN'S) ANTIBODY (12/30/2018 2:42 PM [employer]) SS-B LA Antibody 3.3 0.0 - 19.9 Units 01/01/2019 12:51 PM [employer] [facility] Comment: ROWDY Antibody Numeric Result Interpretation: ?<20.0 Units: ??Negative ?20.0 - 39.0 Units: ??Weakly Positive ?>39.0 Units: ??Positive ? Blood BLOOD SPECIMEN / Unknown Lab Venipuncture / Unknown 12/30/2018 2:42 PM [employer] 12/30/2018 3:18 PM [employer] Emma Borges MD LAB - CHEMISTRY ORDERABLES Performing Organization Address [facility] de Phone Number [address] [phone] * SS-A (SJOGREN'S) ANTIBODY (12/30/2018 2:42 PM [employer]) SS-A (Ro) Antibody 3.3 0.0 - 19.9 Units 01/01/2019 12:51 PM [employer] [facility] Comment: ROWDY Antibody Numeric Result Interpretation: ?<20.0 Units: ??Negative ?20.0 - 39.0 Units: ??Weakly Positive ?>39.0 Units: ??Positive ? Blood BLOOD SPECIMEN / Unknown Lab Venipuncture / Unknown 12/30/2018 2:42 PM [employer] 12/30/2018 3:18 PM [employer] Emma Borges MD LAB - CHEMISTRY ORDERABLES Performing Organization Address [facility] Co de Phone Number [address] [phone] * ALDOLASE (12/30/2018 2:42 PM [employer]) Aldolase 8.1 3.3 - 10.3 U/L 01/01/2019 4:09 PM [employer] [facility] Blood BLOOD SPECIMEN / Unknown Lab Venipuncture / Unknown 12/30/2018 2:42 PM [employer] 12/30/2018 3:20 PM [employer] Narrative [facility]) - 01/01/2019 4:09 PM [employer] Performed at: ??01 - [facility] [id number] [place], [place] ??[id number] Engineering Illustrator: Raj Price PhD, Phone: ??[phone] Emma Borges MD LAB - CHEMISTRY ORDERABLES Performing Organization Address [facility] de Phone Number [facility] ([facility]) [address] [place] [address] * (ABNORMAL) ERYTHROCYTE SEDIMENTATION RATE (12/30/2018 2:42 PM [employer]) Erythrocyte Sedimentation Rate Westergren 35(H) 0 - 30 MM/HR 12/30/2018 3:49 PM [employer] [facility] Blood BLOOD SPECIMEN / Unknown Lab Venipuncture / Unknown 12/30/2018 2:42 PM [employer] 12/30/2018 3:19 PM [employer] Emma Borges MD LAB - HEMATOLOG Y ORDERABLES Performing Organization Address City/[facility]/[place] [address], [place] [phone] * (ABNORMAL) CBC WITH DIFFERENTIAL (12/30/2018 2:42 PM [facility]) WBC 11.0(H) 3.5 - 10.5 10? 3 /uL 12/30/2018 3:37 PM [facility] RBC 4.60 3.90 - 5.00 10? 6 /uL 12/30/2018 3:37 PM [facility] Hemoglobin 13.2 12.0 - 15.5 g/dL 12/30/2018 3:37 PM [facility] Hematocrit 42.7 35.0 - 45.0 % 12/30/2018 3:37 PM [facility] MCV 92.8 81.0 - 97.0 fL 12/30/2018 3:37 PM [facility] MCH 28.7 28.0 - 34.0 pg 12/30/2018 3:37 PM [facility] MCHC 30.9(L) 32.0 - 36.0 g/dL 12/30/2018 3:37 PM [facility] Platelet Count 328 150 - 400 10? 3 /uL 12/30/2018 3:37 PM [facility] RDW-SD 44.5 36.0 - 50.0 fL 12/30/2018 3:37 PM [facility] RDW-CV 13.2 11.2 - 14.8 % 12/30/2018 3:37 PM [facility] MPV 10.7 9.3 - 12.8 fL 12/30/2018 3:37 PM [facility] nRBC Absolute 0.00 0 10? 3 /uL 12/30/2018 3:37 PM [facility] nRBC Auto 0.0 0 /100 WBC 12/30/2018 3:37 PM [facility] Neutrophils % 57.7 35.0 - 70.0 % 12/30/2018 3:37 PM [facility] Lymphocytes % 31.2 19.7 - 55.1 % 12/30/2018 3:37 PM [facility] Monocytes % 6.6 3.0 - 15.0 % 12/30/2018 3:37 PM [facility] Eosinophils % 3.5 0.0 - 6.0 % 12/30/2018 3:37 PM [facility] Basophil % 0.7 0.0 - 1.5 % 12/30/2018 3:37 PM [facility] Neutrophils Absolute 6.4 1.6 - 7.0 10? 3 /uL 12/30/2018 3:37 PM [facility] Lymphocyte Absolute 3.4(H) 0.8 - 2.9 10? 3 /uL 12/30/2018 3:37 PM [facility] Monocytes Absolute 0.73(H) 0.14 - 0.66 10? 3 /uL 12/30/2018 3:37 PM [facility] Eosinophils Absolute 0.39 0.00 - 0.45 10? 3 /uL 12/30/2018 3:37 PM [facility] Basophils Absolute 0.08(H) 0.00 - 0.06 10? 3 /uL 12/30/2018 3:37 PM [facility] Immature Granulocytes % 0.3 0.0 - 1.0 % 12/30/2018 3:37 PM [facility] Blood BLOOD SPECIMEN / Unknown Lab Venipuncture / Unknown 12/30/2018 2:42 PM [employer] 12/30/2018 3:19 PM [employer] Emma Borges MD LAB - HEMATOLOG Y ORDERABLES Performing Organization Address [facility]/State/[facility] Co de Phone Number [address] [phone] * (ABNORMAL) COMPREHENSIVE METABOLIC PANEL (12/30/2018 2:42 PM [employer]) BUN 21 7 - 26 mg/dL 12/30/2018 3:54 PM [facility] Creatinine 0.9 0.6 - 1.2 mg/dL 12/30/2018 3:54 PM [facility] Sodium 141 136 - 145 mmol/L 12/30/2018 3:54 PM [facility] Potassium 4.4 3.5 - 4.5 mmol/L 12/30/2018 3:54 PM [facility] Chloride 105 98 - 107 mmol/L 12/30/2018 3:54 PM [facility] CO2 25 22 - 29 mmol/L 12/30/2018 3:54 PM [facility] Glucose 174(H) 70 - 115 mg/dL 12/30/2018 3:54 PM [facility] Calcium 10.8(H) 8.4 - 10.2 mg/dL 12/30/2018 3:54 PM [facility] Protein Total 7.5 6.0 - 8.3 g/dL 12/30/2018 3:54 PM [facility] Albumin 3.8 3.4 - 5.0 g/dL 12/30/2018 3:54 PM [facility] Bilirubin Total 0.2 0.2 - 1.2 mg/dL 12/30/2018 3:54 PM [facility] Alkaline Phosphatase 73 40 - 150 Units/L 12/30/2018 3:54 PM [facility] ALT 38 0 - 55 Units/L 12/30/2018 3:54 PM [facility] AST 39(H) 5 - 34 Units/L 12/30/2018 3:54 PM [facility] Anion Gap 15 8 - 18 12/30/2018 3:54 PM [facility] BUN/Creatinine Ratio 23 7 - 23 12/30/2018 3:54 PM [facility] Osmolality Calculated 299 270 - 300 mOsm/kg 12/30/2018 3:54 PM [facility] Albumin/Globulin Ratio 1.0(L) 1.1 - 2.3 12/30/2018 3:54 PM [facility] eGFR >60 >60 mL/min/1.7 3 m2 12/30/2018 3:54 PM [facility] Blood BLOOD SPECIMEN / Unknown Lab Venipuncture / Unknown 12/30/2018 2:42 PM [employer] 12/30/2018 3:19 PM [employer] Emma Borges MD LAB - CHEMISTRY ORDERABLES [address] [phone] * LDH BLOOD (12/30/2018 2:42 PM [employer]) LDH Total 188 125 - 243 Units/L 12/30/2018 3:54 PM [facility] Blood BLOOD SPECIMEN / Unknown Lab Venipuncture / Unknown 12/30/2018 2:42 PM [employer] 12/30/2018 3:19 PM [employer] Emma Borges MD LAB - CHEMISTRY ORDERABLES [facility] [address] [place] [address], [facility] [phone] * CK BLOOD (12/30/2018 2:42 PM [employer]) CK Total 126 30 - 200 Units/L 12/30/2018 3:54 PM [employer] [facility] Blood BLOOD SPECIMEN / Unknown Lab Venipuncture / Unknown 12/30/2018 2:42 PM [employer] 12/30/2018 3:19 PM [employer] Emma Borges MD LAB - CHEMISTRY ORDERABLES Performing Organization Address City/[facility]/[place] [address], [facility] [phone] Care Teams Cylinder Sander Operator Relationship Specialty Start Date End Date Vilma Herrera PA-C [address] [place] [address] [phone] PCP - General 01/05/19
--- OUTSIDE RECORDS SUMMARY | 2024-03-03 17:30 | XMS_ITS | Encounter Summary ---
Author Organization [facility] Health Address [address] [facility] [facility] [place] [address] Care Team Providers Care Head Of Transport Logistics Name Role Phone Vilma Herrera PA-C Primary Care Provider + Reason for Visit * Reason Comments Follow-up Encounter Details Date Type Department Care Team (Late st Contact Info) Description 04/14/2019 2:30 PM ASSOCIATE PROFESSOR OF ART HISTORY Office Visit [facility] [address] [place] [address] Emma Borges MD [address] [address] Trigger finger, unspecified finger, unspecified laterality (Primary [...] Comments Blood Pressure 120/64 04/14/2019 3:23 PM ASSOCIATE PROFESSOR OF ART HISTORY Pulse 70 04/14/2019 3:23 PM ASSOCIATE PROFESSOR OF ART HISTORY Temperature 36.9 ??C (98.4 ??F) 04/14/2019 3:23 PM CS T Respiratory Rate - - Oxygen Saturation - - Inhaled Oxygen Concentration - - Weight 110.2 kg (243 lb) 04/14/2019 3:23 PM ASSOCIATE PROFESSOR OF ART HISTORY Height 162.6 cm (5' 4 ) 04/14/2019 3:23 PM ASSOCIATE PROFESSOR OF ART HISTORY Body Mass Index 41.71 04/14/2019 3:23 PM ASSOCIATE PROFESSOR OF ART HISTORY documented in this encounter Patient Instructions * Patient Instructions* Emma Borges MD - 04/14/2019 4:20 PM ASSOCIATE PROFESSOR OF ART HISTORY We saw you today for follow up [...] - At the Doctor's Office Building at [address] [place] [address], [address], call [phone] If you need a refill request, have your pharmacy fax a request to [phone] If you need to leave a message for Dr. Borges, you can send her an electronic message via [employer] or leave a voicemail at [phone]. Her office FAX number is [phone]. For after hours emergency only, you can call the [facility] mold yard crane operator at [phone] and ask for the Engagement Engineer office administration instructor to be paged. CIATE PROFESSOR OF ART HISTORY documented in this encounter Progress Notes * Emma Borges MD - 04/20/2019 2:21 PM CST [facility] Rheumatology Followup Clinic Visit Referring Physician: [...] ??? Tobacco comment: working with PCP for [facility] 12/2018 Substance Use Topics ??? Alcohol use: Never Frequency: Never ??? Drug use: Never Review of Family History Problem Relation Name Age of Onset ??? Coronary Artery Disease Mother ??? Arthritis - Osteo Mother ??? Cancer - Lung Mother ??? Diabetes - Type 2 Father Current Outpatient Medications Medication Sig Dispense Refill ??? ACCU-CHEK [facility] Check blood sugar four times a day [...] mouth once daily 4 ??? nystatin (MYCOSTATIN) [id number] UNIT/GM cream Apply to affected area 2 [...] times daily Dispense: 30 g Refill: 2 CIATE PROFESSOR OF ART HISTORY documented in this encounter Plan of Treatment Not on file documented as of this encounter Visit Diagnoses Diagnosis Trigger finger, unspecified finger, unspecified laterality- Primary documented in this encounter Care Teams Head Of Transport Logistics Relationship Specialty Start Date End Date Vilma Herrera PA-C [address] [place] [address] PCP - General 01/05/19 documented as of this encounter
--- OUTSIDE RECORDS SUMMARY | 2024-03-03 17:30 | XMS_ITS | Clinical Summary ---
Author Organization [facility] [employer] Address [address] [facility] [place] [address] Care Team Providers Care Nickel Plant Operator Name Role Phone Vilma Herrera PA-C Primary Care Provider + Source Comments [facility] [employer],non-owned Affiliates and Associated Physician Practices is amultiple site organization consisting of ambulatory clinics and hospital sitesin [place], [place], [place] and [place]. This disclosure is being madepursuant to the Care Everywhere program and may not contain all information available regarding this patient. Last updated 17.[facility] [employer] Allergies Active Allergy Reactions Criticality Noted Date [...] mouth 2 times daily Active nystatin (MYCOSTATIN) 905325 UNIT/GM cream Apply to affected area 2 [...] Comments Blood Pressure 120/64 04/14/2019 3:23 PM PHOTO GRAPHICS LIBRARIAN Pulse 70 04/14/2019 3:23 PM PHOTO GRAPHICS LIBRARIAN Temperature 36.9 ??C (98.4 ??F) 04/14/2019 3:23 PM CS T Respiratory Rate - - Oxygen Saturation - - Inhaled Oxygen Concentration - - Weight 110.2 kg (243 lb) 04/14/2019 3:23 PM PHOTO GRAPHICS LIBRARIAN Height 162.6 cm (5' 4 ) 04/14/2019 3:23 PM [facility] [facility] [facility]RAR[facility] Body Mass Index 41.71 04/14/2019 3:23 PM PHOTO GRAPHICS LIBRARIAN Plan of Treatment Health Maintenance Due Date [...] COMPREHENSIVE METABOLIC PANEL Routine 12/30/2018 2:42 PM [facility] Arthralgia, unspecified joint Dry eye Sicca, unspecified type (HCC) from Last 3 Months or Most Recently Relevant to Health Maintenance Results * (ABNORMAL) COMPREHENSIVE METABOLIC PANEL (12/30/2018 2:42 PM PHOTO GRAPHICS LIBRARIAN) BUN 21 7 - 26 mg/dL 12/30/2018 3:54 PM [facility] Creatinine 0.9 0.6 - 1.2 mg/dL 12/30/2018 3:54 PM [facility] Sodium 141 136 - 145 mmol/L 12/30/2018 3:54 PM [facility] Potassium 4.4 3.5 - 4.5 mmol/L 12/30/2018 3:54 PM [facility] Chloride 105 98 - 107 mmol/L 12/30/2018 3:54 PM [facility] CO2 25 22 - 29 mmol/L 12/30/2018 3:54 PM [facility] Glucose 174(H) 70 - 115 mg/dL 12/30/2018 3:54 PM [facility] Calcium 10.8(H) 8.4 - 10.2 mg/dL 12/30/2018 3:54 PM [facility] Protein Total 7.5 6.0 - 8.3 g/dL 12/30/2018 3:54 PM [facility] Albumin 3.8 3.4 - 5.0 g/dL 12/30/2018 3:54 PM [facility] Bilirubin Total 0.2 0.2 - 1.2 mg/dL 12/30/2018 3:54 PM [facility] Alkaline Phosphatase 73 40 - 150 Units/L 12/30/2018 3:54 PM [facility] ALT 38 0 - 55 Units/L 12/30/2018 3:54 PM [facility] AST 39(H) 5 - 34 Units/L 12/30/2018 3:54 PM [facility] Anion Gap 15 8 - 18 12/30/2018 3:54 PM PHOTO GRAPHICS LIBRARIAN [facility] BUN/Creatinine Ratio 23 7 - 23 12/30/2018 3:54 PM PHOTO GRAPHICS LIBRARIAN [facility] Osmolality Calculated 299 270 - 300 mOsm/kg 12/30/2018 3:54 PM [facility] Albumin/Globulin Ratio 1.0(L) 1.1 - 2.3 12/30/2018 3:54 PM [facility] eGFR >60 >60 mL/min/1.7 3 m2 12/30/2018 3:54 PM [facility] Blood BLOOD SPECIMEN / Unknown Lab Venipuncture / Unknown 12/30/2018 2:42 PM PH[facility] GRAPHICS LIBRARIAN 12/30/2018 3:19 PM PHOTO GRAPHICS LIBRARIAN Emma Borges MD LAB - CHEMISTRY ORDERABLES Performing Organization Address City/State/[facility] Co de Phone Number [facility] [address] [phone] from Last 3 Months or Most Recently Relevant to Health Maintenance Care Teams Nickel Plant Operator Relationship Specialty Start Date End Date Vilma Herrera PA-C [address] [place] [phone] PCP - General 01/05/19
--- OUTSIDE RECORDS SUMMARY | 2024-03-03 17:30 | XMS_ITS | Encounter Summary ---
Author Organization [facility] Address [address] [place] [address] Phone Care Team Providers Care It Corporate Recruiter Name Role Phone Giselle Lamas JOSSELIN Primary Care Provider [phone] Reason for Visit * Reason Comments Medication Refill Encounter Details Date Type Department Care Team (Late st Contact Info) Description 09/09/2019 Refill [facility] - End[facility]ology [facility] [address] [place] [phone] Steve Givens MD [address] [phone] Medication Refill Social History Tobacco Use Types [...] Rx from her PCP or a new construction management assistant if she still has [employer] insurance documented in this encounter Plan of Treatment Not on file documented as of this encounter Visit Diagnoses Not on filedocumented in this encounter Care Teams It Corporate Recruiter Relationship Specialty Start Date End Date Giselle Lamas PAC [address] [place] [address] PCP - General Physician Tile Setter Supervisor 08/01/17 documented as of this encounter
--- OUTSIDE RECORDS SUMMARY | 2024-03-03 17:30 | XMS_ITS | Encounter Summary ---
Author Organization [facility] Address [address] [place] [address] Phone Care Team Providers Care Pharmaceutical Engineer Name Role Phone Giselle Lamas Primary Care Provider [phone] Reason for Visit * Reason Comments Medication Refill Encounter Details Date Type Department Care Team (Late st Contact Info) Description 11/08/2019 Refill [facility] - Endocrinology - [place] [address] [place] [phone] Steve Givens MD #[address] [phone] Medication Refill Social History Tobacco Use Types [...] 11/08/2019 1:18 PM [facility] Pharmacy notified via [employer] documented in this encounter Plan of Treatment Not on file documented as of this encounter Visit Diagnoses Not on filedocumented in this encounter Care Teams Pharmaceutical Engineer Relationship Specialty Start Date End Date Giselle Lamas PAC [address] [place] [address] PCP - General Physician Crater And Packer 08/01/17 documented as of this encounter
--- OUTSIDE RECORDS SUMMARY | 2024-03-03 17:30 | XMS_ITS | Encounter Summary ---
Author Organization [facility] Address [address] [facility] [place] [address] Phone Care Team Providers Care Bronzer Name Role Phone Giselle Lamas Primary Care Provider [phone] Reason for Visit * Reason Onset Date Comments Medication Management 05/09/2019 Encounter Details Date Type Department Care Team (Late st Contact Info) Description 05/09/2019 Telephone [facility] - Endocrinology - [place] [address] [place] [phone] Steve Givens MD [address] [phone] Medication Management Social History Tobacco [...] Please advise her to get a new parts counterperson if she has [employer] insurance documented in this encounter Plan of Treatment Not on file documented as of this encounter Visit Diagnoses Not on filedocumented in this encounter Care Teams Bronzer Relationship Specialty Start Date End Date Giselle Lamas PAC [address] [place] [address] PCP - General Physician Medical Leader 08/01/17 documented as of this encounter
--- OUTSIDE RECORDS SUMMARY | 2024-03-03 17:30 | XMS_ITS | Encounter Summary ---
Author Organization [facility] Address [address] [facility] [place] [address] Care Team Providers Care Magnetic Tape Composer Operator Name Role Phone Elen Hathaway APRN-RESEARCH BIOLOGIST Primary Care P lm Encounter Details Date Type Department Care Team (Latest Contact Info) Description 12/30/2018 2:35 PM MANAGER MAINTENANCE - 12/30/2018 2:39 PM [facility] Hospital Encounter [facility] DIAGNOSTIC RAD OP [address] [place] [phone] Emma Borges MD [address] [facility] [address]L [place] [address] Discharge Disposition: Home or Self Care Social [...] mouth once daily 4 12/15/2018 nystatin (MYCOSTATIN) 163745 UNIT/GM cream Apply to affected area 2 [...] RIGHT 2VW Routine 12/30/2018 3:1 0 PM MANAGER MAINTENANCE Arthralgia, unspecified joint Dry eye Sicca, unspecified type (HCC) XR FOOT LEFT 2VW Routine 12/30/2018 3:10 PM MANAGER MAINTENANCE Arthralgia, unspecified joint Dry eye Sicca, unspecified type (HCC) XR HAND RIGHT 2VW Routine 12/30/2018 3:1 0 PM MANAGER MAINTENANCE Arthralgia, unspecified joint Dry eye Sicca, unspecified type (HCC) XR HAND LEFT 2VW Routine 12/30/2018 3:10 PM MANAGER MAINTENANCE Arthralgia, unspecified joint Dry eye Sicca, unspecified type (HCC) documented in this encounter Results * XR FOOT LEFT 2VW (12/30/2018 3:10 PM MANAGER MAINTENANCE) Anatomical Region Laterality Modality Ankle / Foot Radiographic Tammi ging 12/30/2018 3:37 PM MANAGER MAINTENANCE Impressions 12/30/2018 3:48 PM MANAGER MAINTENANCE IMPRESSION: 1. Right hand: No arthritis. 2. Left hand: Mild degenerative change at the fifth digit distal interphalangeal joint. 3. Right and left feet: No arthritis. Dictated by Kenroy Paul MD (vice president of business development). I, Dr. MC POSADA MD have personally reviewed and interpreted this examination/study. This report was electronically signed by MC POSADA MD ??on 12/30/2018 3:48 PM . Narrative 12/30/2018 3:48 PM MANAGER MAINTENANCE EXAMINATION: 1. XR HAND RIGHT 2VW 2. [...] by Kenroy Paul MD (vice president of business development). Dr. MC Sanches MD have personally reviewed and interpreted this examination/study. This report was electronically signed by MC POSADA MD on12/30/2018 3:48 PM . Emma Shanna Borges MD DIAGNOSTIC IMAG ING ORDERABLES * XR FOOT RIGHT 2VW (12/30/2018 3:10 PM MANAGER MAINTENANCE) Anatomical Region Laterality Modality Ankle / Foot Radiographic Tammi ging 12/30/2018 3:37 PM MANAGER MAINTENANCE Impressions 12/30/2018 3:48 PM MANAGER MAINTENANCE IMPRESSION: 1. Right hand: No arthritis. 2. Left hand: Mild degenerative change at the fifth digit distal interphalangeal joint. 3. Right and left feet: No arthritis. Dictated by Kenroy Paul MD (vice president of business development). Dr. MC Sanches MD have personally reviewed and interpreted this examination/study. This report was electronically signed by MC POSADA MD ??on 12/30/2018 3:48 PM . Narrative 12/30/2018 3:48 PM MANAGER MAINTENANCE EXAMINATION: 1. XR HAND RIGHT 2VW 2. [...] by Kenroy Paul MD (vice president of business development). I, Dr. MC POSADA MD have personally reviewed and interpreted this examination/study. This report was electronically signed by MC POSADA MD on12/30/2018 3:48 PM . Emma Borges MD DIAGNOSTIC IMAG ING ORDERABLES * XR HAND RIGHT 2VW (12/30/2018 3:10 PM MANAGER MAINTENANCE) Anatomical Region Laterality Modality Wrist / Hand Radiographic Tammi ging 12/30/2018 3:37 PM MANAGER MAINTENANCE Impressions 12/30/2018 3:48 PM MANAGER MAINTENANCE IMPRESSION: 1. Right hand: No arthritis. 2. Left hand: Mild degenerative change at the fifth digit distal interphalangeal joint. 3. Right and left feet: No arthritis. Dictated by Kenroy Paul MD (vice president of business development). I, Dr. MC POSADA MD have personally reviewed and interpreted this examination/study. This report was electronically signed by MC POSADA MD ??on 12/30/2018 3:48 PM . Narrative 12/30/2018 3:48 PM MANAGER MAINTENANCE EXAMINATION: 1. XR HAND RIGHT 2VW 2. [...] by Kenroy Paul MD (vice president of business development). Dr. MC Sanches MD have personally reviewed and interpreted this examination/study. This report was electronically signed by MC POSADA MD on12/30/2018 3:48 PM . Emma Borges MD DIAGNOSTIC IMAG ING ORDERABLES * XR HAND LEFT 2VW (12/30/2018 3:10 PM MANAGER MAINTENANCE) Anatomical Region Laterality Modality Wrist / Hand Radiographic Tammi ging 12/30/2018 3:37 PM MANAGER MAINTENANCE Impressions 12/30/2018 3:48 PM MANAGER MAINTENANCE IMPRESSION: 1. Right hand: No arthritis. 2. Left hand: Mild degenerative change at the fifth digit distal interphalangeal joint. 3. Right and left feet: No arthritis. Dictated by Kenroy Paul MD (vice president of business development). Dr. MC Sanches MD have personally reviewed and interpreted this examination/study. This report was electronically signed by MC POSADA MD ??on 12/30/2018 3:48 PM . Narrative 12/30/2018 3:48 PM MANAGER MAINTENANCE EXAMINATION: 1. XR HAND RIGHT 2VW 2. [...] by Kenroy Paul MD (vice president of business development). I, Dr. MC POSADA MD have personally reviewed and interpreted this examination/study. This report was electronically signed by MC POSADA MD on12/30/2018 3:48 PM . Emma Borges MD DIAGNOSTIC IMAG ING ORDERABLES documented in this encounter Visit Diagnoses Diagnosis Arthralgia, unspecified joint Dry eye Sicca, unspecified type (HCC) documented in this encounter Care Teams Magnetic Tape Composer Operator Relationship Specialty Start Date End Date Elen Hathaway, ACCOUNTING ADMINISTRATIVE ASSISTANT-RESEARCH BIOLOGIST [address] [place] [phone] PCP - General 09/04/18 01/04/19 documented as of this encounter
--- OUTSIDE RECORDS SUMMARY | 2024-03-03 17:30 | XMS_ITS | Encounter Summary ---
Author Organization [facility] Address [address] [place] [address] Phone Care Team Providers Care Rail Transportation Tabeler Name Role Phone Giselle Lamas JOSSELIN Primary Care Provider [phone] Reason for Visit * Reason Comments Medication Refill Encounter Details Date Type Department Care Team (Late st Contact Info) Description 07/15/2019 Refill [facility] - [facility] [address] [place] [phone] Steve Givens MD [address] [phone] Medication Refill Social History Tobacco Use Types [...] Rx sent If the patient still has [place], please advise him to get Rx from [...] on filedocumented in this encounter Care Teams Rail Transportation Tabeler Relationship Specialty Start Date End Date Giselle Lamas PAC [address] [place] [address] PCP - General Physician Header Set Up Operator 08/01/17 documented as of this encounter
--- OUTSIDE RECORDS SUMMARY | 2024-03-03 17:30 | XMS_ITS | Encounter Summary ---
Author Organization [facility] Address [address] [facility] [place] [address] Phone Care Team Providers Care 1St Pressman On Web Press Name Role Phone Giselle Lamas JOSSELIN Primary Care Provider [phone] Reason for Visit * Reason Comments Medication Refill Encounter Details Date Type Department Care Team (Late st Contact Info) Description 05/13/2019 Refill [facility] - [facility]ocrinology [facility] [address] [place] [phone] Steve Givens MD [address] [phone] Medication Refill Social History Tobacco Use Types [...] on filedocumented in this encounter Care Teams 1St [employer]man [employer] Web Press Relationship Specialty Start Date End Date Giselle Lamas PAC [address] [place] [address] PCP - General Physician Gas And Oil Checker 08/01/17 documented as of this encounter
--- OUTSIDE RECORDS SUMMARY | 2024-03-03 17:30 | XMS_ITS | CONTINUITY OF CARE DOCUMENT ---
Author Name rachele jeffrey Address Unknown Organization [facility] Address [address] [place] [address] Phone [phone] Care Team Providers Care Fluorescent Solution Mixer Name Role Phone Florin Dixon MD Unavailable [phone] JILL JOY Unavailable JILL JOY Unavailable PROBLEMS [...] In-person encounter Office Visit Florin Dixon MD [facility] - In-person encounter Office Visit Florin Dixon MD [facility] Hx of tobacco use, quitPeripheral artery disease - In-person encounter Office Visit Florin Dixon MD [facility] Hypertrophic cardiomyopathy - In-person encounter Office Visit Florin Dixon MD [facility] - In-person encounter Office Visit Florin Dixon MD [facility] - In-person encounter Office Visit Florin Dixon MD [facility] Leg pain, right - In-person encounter Office Visit Florin Dixon MD [facility] Exposure to SARS-associated coronavirus - negative swab 07/2019 - In-person encounter Office Visit Florin Dixon MD [facility] - In-person encounter Office Visit Florin Dixon MD [facility] Carotid artery stenosis, <50% ICA b/lPVD S/P R SFA STENT 11/2018Herniated disc - In-person encounter Office Visit Lynn Rodrigues MD [facility] Abnormal nuclear stress test - 09/2018 cath no CADPVD S/P R SFA STENT 11/2018 - In-person encounter Office Visit Florin Dixon MD [facility] Abnormal nuclear stress test - 09/2018 cath no CADPVD S/P R SFA STENT 11/2018Tobacco abuse - In-person encounter Office Visit Florin Dixon MD [facility] ObesityHeart murmurDiabetes mellitusDyslipidemiaProteinuriaCarotid artery stenosis, <50% [...] % [place] respiratory rate E&M 16 /min [place] blood pressure, cuff size regular Ja weight E&M 211 [lb_av] [place] y height E&M 65 [in_i] [place] y Body Mass Index (Ratio) 35.27 kg/m2 Grah am Nely blood pressure, cuff size regular blood pressure, diastolic 84 mm[Hg] [facility] blood pressure, systolic 147 mm[Hg] [facility] pulse rate 74 /min [place] y respiratory rate E&M 12 /min [facility] oxygen saturation, oximetry 97 % weight E&M 212 [lb_av] [place] y height E&M 65 [in_i] [place] y Body Mass Index (Ratio) 35.44 kg/m2 Kriss Nichole blood pressure, diastolic 85 mm[Hg] Ke rri Gruenemarly blood pressure, systolic 141 mm[Hg] Lorie Freed [...] [lb_av] Brooke Mcgee height E&M 65 [in_i] Brooke Mcgee Body Mass Index (Ratio) 41.10 kg/m2 Ziyad [facility] pulse rate 95 /min [facility] blood pressure, diastolic 58 mm[Hg] [facility], systolic 122 mm[Hg] [facility], oxim[facility] 98 % [facility] weight E&M 247 [lb_av] Kaela [facility] blood pressure, resting Yes [facility] respiratory rate E&M 16 /min [facility] height E&M 65 [in_i] [facility] Body Mass Index (Ratio) 40.60 kg/m2 Jer Rodrigues MD blood pressure, cuff size regular Kr isty [place] blood pressure, diastolic 70 mm[Hg] Kr isty Ishmael blood pressure, systolic 130 mm[Hg] Kri sty Ishmael oxygen saturation, oximetry 95 % Muriel Ishmael pulse rate 87 /min Muriel [place] respiratory rate E&M 18 /min Muriel [place] weight E&M 244 [lb_av] Mureil [place] height E&M 65 [in_i] Muriel Ishmael Body Mass Index (Ratio) 39.77 kg/m2 Ziyad [facility] blood pressure, diastolic 70 mm[Hg] Cristo [...] 0-149 High cholesterol, serum 130 mg/dL [facility] [phone]/06/ 03 prothrombin time (patient) 9.6 s [facility] 9.1-12.0 international normalized ratio (INR) 0.9 [facility] 0.8-1.2 calcium, serum 10.0 mg/dL [facility] 8.7-10.2 carbon dioxide, venous blood 20 mmol/L [facility] 20-29 chloride, serum 102 mmol/L [facility] 96-106 potassium, serum 5.3 mmol/L [facility] 3.5-5.2 High sodium, serum 141 mmol/L [facility] [phone]/06/ 03 urea nitrogen/creatinine ratio, serum 29 [facility] [...] Not Estab. platelet count 359 X10E3/UL [facility] 514-522 8067/06/ 03 red blood cell distribution width 12.3 % [facility] 11.7-15.4 mean corpuscular hemoglobin concentration, RBC 33.1 G/DL [facility] 31.5-35.7 mean corpuscular hemoglobin, RBC 29.5 pg [facility] 26.6-33.0 mean corpuscular volume, RBC 89 [facility]L [facility] hematocrit, blood 38.7 % [facility] 34.0-46.6 hemoglobin, blood 12.8 g/dL [facility] 11.[facility]-15.9 erythrocyte (RBC) count 4.34 X10E6/UL [facility] 3.77-5.28 leukocyte count, blood 9.9 X10E3/UL [facility] 3.4-10.8 microalbumin, random, urine 2006.7 mg/dL [facility] microalbumin/creatin ine ratio, urine 1216.2 ug/mg [facility] albumin/creatinine ratio, urine 1216.2 mg/g{crea t} [facility] microalbumin/total urine volume 2006.7 mg/L [facility] creatinine, random, urine 165.0 mg/dL [facility] hemoglobin A1C, blood, as % of total hemoglobin 8.0 % [facility] triglyceride, serum, fasting 232 mg/dL [facility] HDL cholesterol, serum 28 mg/dL [facility] LDL cholesterol, serum 105 mg/dL [facility] cholesterol, serum 179 mg/dL [facility] platelet count 323 10*3/mm3 [facility] platelet count 323 10*3/uL [facility] red blood cell distribution width 14.0 % [facility] mean corpuscular hemoglobin concentration, RBC 32.7 g/dL [facility] mean corpuscular hemoglobin, RBC 29.2 pg [facility] mean corpuscular volume, RBC 90 fL [facility] hematocrit, blood 40.7 % [facility] hemoglobin, blood 13.3 g/dL [facility] erythrocyte (RBC) count 4.55 10*6/mm3 [facility] leukocyte count, blood 10.1 10*3/mm3 [facility] carbon dioxide, venous blood 20 mmol/L [facility] protein, total, serum 6.9 g/dL [facility] albumin, serum 4.4 g/dL [facility] bilirubin, serum, total 0.2 mg/dL [facility] alkaline phosphatase, serum 73 1/L [facility] alanine aminotransferase (SGPT), serum 35 1/L [facility] aspartate aminotransferase (SGOT), serum 38 1/L [facility] calcium, serum 9.8 mg/dL [facility] blood glucose, random 137 mg/dL [facility] creatinine, serum 0.96 mg/dL [facility] urea nitrogen, blood 15 mg/dL [facility] carbon dioxide, serum, total 20 mmol/L [facility] chloride, serum 105 mmol/L [facility] potassium, serum 4.7 mmol/L [facility] sodium, serum 141 mmol/L [facility] microalbumin/creatin ine ratio, urine 1296.3 MG/G CREAT [...] 0-149 High cholesterol, serum 173 mg/dL [facility] 200-696 2642/07/ 13 calcium, serum 10.4 mg/dL [facility] 8.7-10.2 High carbon dioxide, venous blood 23 mmol/L [facility] 20-29 chloride, serum 100 mmol/L [facility] 96-106 potassium, serum 5.1 mmol/L [facility] 3.5-5.2 sodium, serum 140 mmol/L [facility] 183-437 3837/07/ 13 urea nitrogen/creatinine ratio, serum 16 [facility] [...] Not Estab. platelet count 322 X10E3/UL [facility] [phone]/07/ 13 red blood cell distribution width 13.4 [...] by mouth twice a day 08/04 Muriel Sihmael RANITIDINE 150 MAX STRENGTH TABLET completed take [...] by mouth once a day 07/23 Muriel [place] #30, 30 days supply, Prescribed by SHANNAN KEARNEY, Filled 07/23/2018 estradiol 0.5 mg tablet active Take 1 tablet by mouth once a day 07/23 Muriel [place] #30, 30 days supply, Prescribed by SHANNAN [...] smoking history, tot al pack/day 1 Carrie Freed cigarette use yes Carrie Jayden patel smoking [...] E&M revi ewed - no changes required [facility] smoking/tobacco cess ation, patient education and counseling yes Brooke Mcgee number of years as a smoker 30+ Brooke Mcgee smoking history, tot al pack/day 1 Brooke Mcgee cigarette use yes Brooke Mcgee smoking status Current every day smoker F itzel Mcgee social history reviewed E&M revi ewed - no changes required [facility] smoking/tobacco cess ation, patient education and counseling yes Stephanie Prabhakar number of years as a smoker 30+ Stephanie Prabhakar smoking history, tot al pack/day 1 Stephanie Huertaenson cigarette use yes Stephanie Huerta enson smoking status Current every day smoker M Nirubindu Prabhakar social history reviewed E&M revi ewed - no changes required [facility] smoking/tobacco cess ation, patient education and counseling yes Brooke Mcgee number of years as a smoker 30+ Eddie Tessa smoking history, tot al pack/day 1 Brooke Mcgee cigarette use yes Brooke Mcgee smoking status Current every day smoker F itzel Mcgee social history reviewed E&M revi ewed - no changes required [facility] smoking/tobacco cess ation, patient education and [...] Quiñones smoking status Current every day smoker eTri Quiñones social history reviewed E&M revi ewed [...] Payer name Policy type / Coverage type [place] [employer] KATIE MEDICAID (2) Medicaid [id number] ADVANCE DIRECTIVES Name Date DISCUSSED - NO DECISION MADE TREATMENT PLAN Date Name Performer [id number],S, B P today: 147/84 P rior BP: [...] by mouth once a day Anshul Mckay [id number],S,P t does not have claudication at this [...] by mouth once a day Anshul Daileyri [id number],B, Anshul Blood edmond [id number],S,P t does not have claudication at this [...] by mouth once a day Anshulyola Daileyri [id number],S,r eports no leg pain O rders: 9 9215 HIGH 40-54min (CPT-38060) C RP, high sensitivity (85766) L ipoprotein (a) (130377) L IPID PANEL (7170) A rterial Duplex Bi-Lower EX (CPT-42473) Florin Dixon MD [id number],C, B P today: 141/85 P rior BP: [...] by mouth once a day Kaela Tate [id number],C,. She missed her echo at last visit, will reschedule. H er updated medication list for this problem includes: Lisinopril 20 Mg Tablet (Lisinopril) ..... 1 tablet once a day Hydrochlorothiazide 12.5 Mg Capsule (Hydrochlorothiazide) ..... Take 1 tablet by mouth once a day Kaela Tate [id number],C,A rterial duplex showed severe inferopopliteal disease, however she is asymptomatic. She would like to pariticipate in the Confidence trial. She has stopped smoking Kaela Ybarra [id number],C,W eight loss advised Florin Dixon MD [id number],C, H er updated medication list for this [...] three times a day Florin Dixon MD [id number],C, H er updated medication list for this problem includes: Ezetimibe 10 Mg Tablet (Ezetimibe) ..... Take 1 tablet once a day Atorvastatin 80 Mg Tablet (Atorvastatin) ..... Take 1 tablet by mouth once a day Florin Dixon MD [id number],S, A dvised to quit. Kaela Ybarra [id number],C, H er updated medication list for this [...] unit three times a day Kaela Ybarra [id number],C, H er updated medication list for this problem includes: Ezetimibe 10 Mg Tablet (Ezetimibe) ..... Take 1 tablet once a day Atorvastatin 80 Mg Tablet (Atorvastatin) ..... Take 1 tablet by mouth once a day Kaela Ybarra [id number],C,W ill repeat echo H er updated medication list for this problem includes: Lisinopril 20 Mg Tablet (Lisinopril) ..... 1 tablet once a day Hydrochlorothiazide 12.5 Mg Capsule (Hydrochlorothiazide) ..... Take 1 tablet by mouth once a day Kaela Ybarra [id number],S,W e will obtain echo and Arterial duplex. A Kaela Washingtoncee [id number],S, B P today: 108/62 P rior BP: [...] by mouth once a day Kaela Washingtoncee [id number],S,. She recently had laproscopic knee surgery. We will obtain echo and Arterial duplex. At this time she denies any claudication. Kaela Tate [id number],S, Florin Dixon MD [id number],S, Florin Dixno MD [id number],SFlorin MD Cardiology: H er updated medication list [...] 1 tablet by mouth once a day [facility] Cardiology [facility] Cardiology:Pt does n ot have claudication at [...] 1 tablet by mouth once a day [facility] Cardiology:reports n o leg pain O rders: 9 9215 HIGH 40-54min (CPT-68978) C RP, high sensitivity (29314) L ipoprotein (a) (545361) L IPID PANEL (7600) A rterial Duplex Bi-Lower EX (CPT-56385) Florin Dixon MD Cardiology - [place] [...] has stopped smoking Kaela Tate Cardiology - [facility] Dirk black remove Lisinopril:Weight loss advised Florin Dixon MD Cardiology - [facility] sofia remove Lisinopril: H er updated [...] three times a day Florin Dixon MD Cardiology - [facility] Dirk black remove Lisinopril: H er [...] Take one tablet by mouth once daily [facility] Cardiology:Advised to quit. Ziyad [facility] Cardiology:Triglycer ides in July were elevated to 248. She will get repeat fasting lipid panel with her potato spotter. CHOL: 130 (07/28/2019) HDL: 28 (07/28/2019) LDL: 52 (07/28/2019) TRI (07/28/2019) Her updated medication list for this problem includes: Ezetimibe 10 Mg Oral Tablet (Ezetimibe) ..... Take one tablet daily Atorvastatin Calcium 80 Mg Oral Tablet (Atorvastatin calcium) ..... Take 1 tablet by mouth every day [facility] Cardiology:Pt's leg pain resolved. MICHAEL's and venous duplex last month were normal. [facility] Cardiology:Her updat ed medication list for this [...] by mouth twice a day with meals [facility] Cardiology:CHOL: 130 (07/28/2019) HDL: 28 (07/28/2019) LDL: 52 (07/28/2019) TRI (07/28/2019) Her updated medication list for this problem includes: Ezetimibe 10 Mg Oral Tablet (Ezetimibe) ..... Take one tablet daily Atorvastatin Calcium 80 Mg Oral Tablet (Atorvastatin calcium) ..... Take 1 tablet by mouth every day [facility] Cardiology:BP today: 144/60 P rior BP: 147/83 (07/27/2019) Her updated medication list for this problem includes: Lisinopril 20 Mg Oral Tablet (Lisinopril) ..... One tab. daily Hydrochlorothiazide 12.5 Mg Oral Capsule (Hydrochlorothiazide) ..... Take one tablet by mouth once daily [facility] Cardiology:S/P laser atherectomy and NAIMA stenting [...] her pain with Hydrocodone as needed. [facility] Cardiology:S/P laser atherectomy and NAIMA stenting [...] treat her pain with Hydrocodone as needed. [facility] Cardiology:Denies chest pain or SOB. [facility] Cardiology:Her updat ed medication list for this [...] mouth twice a day with meals [facility] Cardiology:Her [facility] ed medication list for this problem includes: Ezetimibe 10 Mg Oral Tablet (Ezetimibe) ..... Take one tablet daily Atorvastatin Calcium 80 Mg Oral Tablet (Atorvastatin calcium) ..... Take 1 tablet by mouth every day Orders: L IPID PANEL (8128) [facility] Cardiology:BP today: 147/83 P rior BP: 122/58 (01/26/2019) Labs Reviewed: C reat: 0.96 (11/11/2018) Her updated medication list for this problem includes: Lisinopril 20 Mg Oral Tablet (Lisinopril) ..... One tab. daily Hydrochlorothiazide 12.5 Mg Oral Capsule (Hydrochlorothiazide) ..... Take one tablet by mouth once daily [facility] Cardiology:Pt compla ins of leg cramps. Leg pain occurs after minimal exertion. Denies rest pain or pain at night. Arterial duplex at [facility] showed occlusion of the R SFA and MICHAEL of 0.38. We will proceed to AIF. [facility] Cardiology:BP today: 122/58 P rior BP: 130/70 (11/13/2018) Her updated medication list for this problem includes: Lisinopril 20 Mg Oral Tablet (Lisinopril) ..... One tab. daily Hydrochlorothiazide 12.5 Mg Oral Capsule (Hydrochlorothiazide) ..... Take one tablet by mouth once daily [facility] Cardiology:Labs Revi ewed: H gBA1c: 8.0 (11/11/2018) [...] by mouth twice a day with meals [facility] Cardiology:We will a dd Zetia 10mg daily (LDL was 105 on Lipitor 80mg daily). CHOL: 179 (11/11/2018) LDL: 105 (11/11/2018) HDL: 28 (11/11/2018) T (11/11/2018) Her updated medication list for this problem includes: Ezetimibe 10 Mg Oral Tablet (Ezetimibe) ..... Take one tablet daily Atorvastatin Calcium 80 Mg Oral Tablet (Atorvastatin calcium) ..... Take 1 tablet by mouth every day [facility] Cardiology:She would like to lose weight and wants to try Buproprion/Naltrexone. [facility] Cardiology:We advised her to sto p smoking. [facility] Cardiology:S/P succe ssful stenting of the R SFA. Her claudication has improved. Her leg pain now is symmetrical and mainly in the thighs. It is most likely musculokeletal due to a herniated disc. [facility] Cardiology Lynn Rodrigues MD Cardiology Lynn Rodrigues MD Cardiology Lynn Rodrigues MD Cardiology:AIF showe d worse disease on the right and symptoms are worse on the right. Schedule intervention with Dr. Dixon. Lynn Rodrigues MD Cardiology Lynn Rodrigues MD Cardiology:Orders: B ASIC METABOLIC PANEL W/EGFR (48819) H EMOGLOBIN A1c (496) U RINALYSIS, RANDOM, [...] by mouth twice a day with meals [facility] Cardiology:No signif icant stenosis on the carotid duplex. [facility] Cardiology:Her updat ed medication list for this problem includes: Atorvastatin Calcium 80 Mg Oral Tablet (Atorvastatin calcium) ..... Take 1 tablet by mouth every day Orders: L IPID PANEL (7560) [facility] Cardiology:BP today: 140/70 P rior BP: 140/70 (08/04/2018) Her updated medication list for this problem includes: Lisinopril 10 Mg Oral Tablet (Lisinopril) ..... Take 1 tablet by mouth every day Hydrochlorothiazide 12.5 Mg Oral Capsule (Hydrochlorothiazide) ..... Take one tablet by mouth once daily [facility] Cardiology:Orders: A rterial Duplex Bi-Lower EX (CPT-22434) [facility] Cardiology:08/2018 You davis Myoview Summary: 1 . Abnormal myocardial scintigraphy demonstrating distal anterior and distal anteroseptal wall ischemia. 2 . Normal left ventricular size and function with a calculated ejection fraction of 71%. 3 . Normal Freddy protocol exercise tolerance test. 4 . Hypertensive blood pressure response to exercise. Orders: C ardiac Cath - Left - GC (CPT-88244) [facility] Cardiology:08/2018 E cho Conclusions: 1 . Hyperdynamic [...] %. 2 . No significant valvular abnormalities. [facility] Cardiology:Her [facility] ed medication list for this problem includes: [...] 1 tablet by mouth every day [facility] Cardiology:BP today: 140/70 Her updated medication list for this problem includes: Lisinopril 10 Mg Oral Tablet (Lisinopril) ..... Take 1 tablet by mouth every day Hydrochlorothiazide 12.5 Mg Oral Capsule (Hydrochlorothiazide) ..... Take one tablet by mouth once daily [facility] Cardiology:Orders: C arotid Duplex Bilateral (CPT-76796) [facility] Cardiology:She is aw are that she has a cardiac murmur for about 20 years. In view of that she was sent for evaluation. She denies chest pain and SOB. Orders: C omplete Echo (CPT-14449) S tress Exercise Cardiolite (CPT-54349) [facility] Date Name Arterial Duplex Bi-L ower [...]
--- OUTSIDE RECORDS SUMMARY | 2024-03-03 17:30 | XMS_ITS | Clinical Summary ---
Author Organization [facility] Address [address] [place] [address] Phone Care Team Providers Care Bioprocess Development Engineer Name Role Phone AdamsGiselle JOSSELIN Primary Care [...] Insurance MEDICAID [employer] Care Teams Bioprocess Development Engineer Relationship Specialty Start Date End Date Giselle Lamas PAC [address] [place] [address] PCP - General Physician Grocery Deliverer 08/01/17
--- OUTSIDE RECORDS SUMMARY | 2024-03-03 17:30 | XMS_ITS | Encounter Summary ---
Author Organization [facility] Address [address] [place] [address] Phone Care Team Providers Care Funeral Home Location Manager Name Role Phone Giselle Lamas JOSSELIN Primary Care Provider [phone] Reason for Visit * Reason Comments Medication Refill Encounter Details Date Type Department Care Team (Late st Contact Info) Description 07/22/2019 Refill [facility] - Endocrinology - [place] [address] [place] [phone] Steve Givens MD [address] [phone] Medication Refill Social History Tobacco Use Types [...] that she has an appointment witha new product safety test engineer and will no longer be seeing Dr. Givens. * Telephone Encounter - Steve iGvens MD - 07/23/2019 1:06 PM CDT Rx sent If the patient still has [place] insurance, please advise her to get further [...] on filedocumented in this encounter Care Teams Funeral Home Location Manager Relationship Specialty Start Date End Date Giselle Lamas PAC [address] [place] [address] PCP - General Physician Renewable Energy Consultant 08/01/17 documented as of this encounter
--- OUTSIDE RECORDS SUMMARY | 2024-03-03 17:30 | XMS_ITS | Encounter Summary ---
Author Organization [facility] Address [address] [facility] [place] [address] Phone Care Team Providers Care Family Coach Name Role Phone Giselle Lamas Primary Care Provider [phone] Reason for Visit * Reason Comments Medication Refill Encounter Details Date Type Department Care Team ([facility] st Contact Info) Description 01/31/2020 Refill [facility] - Endocrinology [facility] [address] [place] [phone] Steve Givens MD [address] [phone] Medication Refill Social History Tobacco Use Types [...] Noy Myles RN - 02/01/2020 8:17 AM [facility] NORMALIZER Pharmacy notified via [employer] IC NORMALIZER documented in this encounter Plan of Treatment Not on file documented as of this encounter Visit Diagnoses Not on filedocumented in this encounter Care Teams Family Coach Relationship Specialty Start Date End Date Giselle Lamas PAC [address] [place] [address] PCP - General Physician Branch Service Representative 08/01/17 documented as of this encounter
--- OUTSIDE RECORDS SUMMARY | 2024-03-03 17:30 | XMS_ITS | Encounter Summary ---
Author Organization [facility] Health Address [address] [place] [address] Care Team Providers Care Computer System Technician Name Role Phone KerryGracielaElen fuentes Teri DOWNINGN-TAXATION CONSULTANT Primary Care P roemmanuelleder Reason for Visit * Reason Comments Establish Care bilat hand pain/swel ling Encounter Details Date Type Department Care Team (Late st Contact Info) Description 12/30/2018 1:00 PM DRAFTER APPRENTICE Office Visit [facility] Rheumatology [address] [place] [address] Emma Borges MD [address] [address] Arthralgia, unspecified joint (Primary Dx); Dry eye; [...] Comments Blood Pressure 132/62 12/30/2018 1:23 PM DRAFTER APPRENTICE Pulse 72 12/30/2018 1:23 PM DRAFTER APPRENTICE Temperature 37.2 ??C (99 ??F) 12/30/2018 1:23 PM DRAFTER APPRENTICE Respiratory Rate - - Oxygen Saturation - - Inhaled Oxygen Concentration - - Weight 107.5 kg (237 lb) 12/30/2018 1:23 PM DRAFTER APPRENTICE Height 164.5 cm (5' 4.75 ) 12/30/2018 1:23 PM CS T Body Mass Index 39.74 12/30/2018 1:23 PM DRAFTER APPRENTICE documented in this encounter Patient Instructions * Patient Instructions* Emma Borges MD - 12/30/2018 2:15 PM DRAFTER APPRENTICE We saw you today for initial evaluation of joint pain. Get labs and XRays today. Try to quit smoking! We can talk about medications after your labs come back. Follow up in 4 weeks/next available. Thank you! If you need to change or cancel your Rheumatology appointment - At the Doctor's Office Building at [address] [place] [address], [address], call [phone] If you need a refill request, have your pharmacy fax a request to [phone] If you need to leave a message for Dr. Borges, you can send her an electronic message via [employer] or leave a voicemail at [phone]. Her office FAX number is [phone]. For after hours emergency only, you can call the [facility] jigger machine operator at [phone] and ask for the Skin Pass Operator fashion director to be paged. TER APPRENTICE documented in this encounter Progress Notes * Emma Borges MD - 01/11/2019 6:50 AM CST [facility] Rheumatology Initial Clinic Visit Reason for consult: [...] ??? Tobacco comment: working with PCP for [facility] 12/2018 Substance Use Topics ??? Alcohol [...] mouth once daily 4 ??? nystatin (MYCOSTATIN) 215351 UNIT/GM cream Apply to affected area 2 [...] SS-A (SJOGREN'S) ANTIBODY ??? SS-B (SJOGREN'S) ANTIBODY TER APPRENTICE documented in this encounter Plan of Treatment Not on file documented as of this encounter Results * XR FOOT LEFT 2VW (12/30/2018 3:10 PM DRAFTER APPRENTICE) Anatomical Region Laterality Modality Ankle / Foot Radiographic Tammi ging 12/30/2018 3:37 PM DRAFTER APPRENTICE Impressions 12/30/2018 3:48 PM DRAFTER APPRENTICE IMPRESSION: 1. Right hand: No arthritis. 2. Left hand: Mild degenerative change at the fifth digit distal interphalangeal joint. 3. Right and left feet: No arthritis. Dictated by Kenroy Paul MD (radiology assistant). I, Dr. MC POSADA MD have personally reviewed and interpreted this examination/study. This report was electronically signed by CM POSADA MD ??on 12/30/2018 3:48 PM . Narrative 12/30/2018 3:48 PM DRAFTER APPRENTICE EXAMINATION: 1. XR HAND RIGHT 2VW 2. [...] No arthritis. Dictated by Kenroy Paul MD (radiology assistant). I, Dr. MC POSADA MD have personally reviewed and interpreted this examination/study. This report was electronically signed by MC POSADA MD on12/30/2018 3:48 PM . Emma Shanna Borges MD DIAGNOSTIC IMAG ING ORDERABLES * XR FOOT RIGHT 2VW (12/30/2018 3:10 PM DRAFTER APPRENTICE) Anatomical Region Laterality Modality Ankle / Foot Radiographic Tammi ging 12/30/2018 3:37 PM DRAFTER APPRENTICE Impressions 12/30/2018 3:48 PM DRAFTER APPRENTICE IMPRESSION: 1. Right hand: No arthritis. 2. Left hand: Mild degenerative change at the fifth digit distal interphalangeal joint. 3. Right and left feet: No arthritis. Dictated by Kenroy Paul MD (radiology assistant). I, Dr. MC POSADA MD have personally reviewed and interpreted this examination/study. This report was electronically signed by MC POSADA MD ??on 12/30/2018 3:48 PM . Narrative 12/30/2018 3:48 PM DRAFTER APPRENTICE EXAMINATION: 1. XR HAND RIGHT 2VW 2. [...] No arthritis. Dictated by Kenroy Paul MD (radiology assistant). I, Dr. MC POSADA MD have personally reviewed and interpreted this examination/study. This report was electronically signed by MC POSADA MD on12/30/2018 3:48 PM . Emma Borges MD DIAGNOSTIC IMAG ING ORDERABLES * XR HAND RIGHT 2VW (12/30/2018 3:10 PM DRAFTER APPRENTICE) Anatomical Region Laterality Modality Wrist / Hand Radiographic Tammi ging 12/30/2018 3:37 PM DRAFTER APPRENTICE Impressions 12/30/2018 3:48 PM DRAFTER APPRENTICE IMPRESSION: 1. Right hand: No arthritis. 2. Left hand: Mild degenerative change at the fifth digit distal interphalangeal joint. 3. Right and left feet: No arthritis. Dictated by Kenroy Paul MD (radiology assistant). I, Dr. MC POSADA MD have personally reviewed and interpreted this examination/study. This report was electronically signed by MC POSADA MD ??on 12/30/2018 3:48 PM . Narrative 12/30/2018 3:48 PM DRAFTER APPRENTICE EXAMINATION: 1. XR HAND RIGHT 2VW 2. [...] No arthritis. Dictated by Kenroy Paul MD (radiology assistant). Dr. MC Sanches MD have personally reviewed and interpreted this examination/study. This report was electronically signed by MC POSADA MD on12/30/2018 3:48 PM . Emma Borges MD DIAGNOSTIC IMAG ING ORDERABLES * XR HAND LEFT 2VW (12/30/2018 3:10 PM DRAFTER APPRENTICE) Anatomical Region Laterality Modality Wrist / Hand Radiographic Tammi ging 12/30/2018 3:37 PM DRAFTER APPRENTICE Impressions 12/30/2018 3:48 PM DRAFTER APPRENTICE IMPRESSION: 1. Right hand: No arthritis. 2. Left hand: Mild degenerative change at the fifth digit distal interphalangeal joint. 3. Right and left feet: No arthritis. Dictated by Kenroy Paul MD (radiology assistant). Dr. MC Sanches MD have personally reviewed and interpreted this examination/study. This report was electronically signed by MC POSADA MD ??on 12/30/2018 3:48 PM . Narrative 12/30/2018 3:48 PM DRAFTER APPRENTICE EXAMINATION: 1. XR HAND RIGHT 2VW 2. [...] No arthritis. Dictated by Kenroy Paul MD (radiology assistant). I, Dr. MC POSADA MD have personally reviewed and interpreted this examination/study. This report was electronically signed by MC POSADA MD on12/30/2018 3:48 PM . Emma Borges MD DIAGNOSTIC IMAG ING ORDERABLES * SS-B (SJOGREN'S) ANTIBODY (12/30/2018 2:42 PM DRAFTER APPRENTICE) SS-B LA Antibody 3.3 0.0 - 19.9 Units 01/01/2019 12:51 PM DRAFTER APPRENTICE [facility] Comment: ROWDY Antibody Numeric Result Interpretation: ?<20.0 Units: ??Negative ?20.0 - 39.0 Units: ??Weakly Positive ?>39.0 Units: ??Positive ? Blood BLOOD SPECIMEN / Unknown Lab Venipuncture / Unknown 12/30/2018 2:42 PM DRAFTER APPRENTICE 12/30/2018 3:18 PM DRAFTER APPRENTICE Emma Borges MD LAB - CHEMISTRY ORDERABLES Performing Organization Address City/State/[facility] Co de Phone Number [facility] [address] [place] [address] * SS-A (SJOGREN'S) ANTIBODY (12/30/2018 2:42 PM DRAFTER APPRENTICE) SS-A (Ro) Antibody 3.3 0.0 - 19.9 Units 01/01/2019 12:51 PM DRAFTER APPRENTICE [facility] Comment: ROWDY Antibody Numeric Result Interpretation: ?<20.0 Units: ??Negative ?20.0 - 39.0 Units: ??Weakly Positive ?>39.0 Units: ??Positive ? Blood BLOOD SPECIMEN / Unknown Lab Venipuncture / Unknown 12/30/2018 2:42 PM DRAFTER APPRENTICE 12/30/2018 3:18 PM DRAFTER APPRENTICE Emma Borges MD LAB - CHEMISTRY ORDERABLES Performing Organization Address [facility] de Phone Number [address] [phone] * RHEUMATOID FACTOR BLOOD QUANTITATIVE (12/30/2018 2:42 PM DRAFTER APPRENTICE) Rheumatoid Factor 17 <30 IU/mL 12/30/2018 4:00 PM DRAFTER APPRENTICE [facility] Blood BLOOD SPECIMEN / Unknown Lab Venipuncture / Unknown 12/30/2018 2:42 PM DRAFTER APPRENTICE 12/30/2018 3:19 PM DRAFTER APPRENTICE Emma Borges MD LAB - CHEMISTRY ORDERABLES Performing Organization Address [facility] de Phone Number [address] [phone] * CYCLIC CITRUL PEPTIDE ANTIBODY IGG/IGA (CCP) (12/30/2018 2:42 PM DRAFTER APPRENTICE) CCP Antibodies IgG/IgA 6 0 - 19 units 01/01/2019 10:06 PM DRAFTER APPRENTICE [facility] ([facility]) Comment: ?Negative ? <20 ?Weak positive ?20 - 39 ?Moderate positive ??40 - 59 ?Strong positive ?>59 Blood BLOOD SPECIMEN / Unknown Lab Venipuncture / Unknown 12/30/2018 2:42 PM DRAFTER APPRENTICE 12/30/2018 3:19 PM DRAFTER APPRENTICE Narrative [facility] ([facility]) - 01/01/2019 10:06 PM DRAFTER APPRENTICE Performed at: ??01 - [facility] [address] ??[id number] Network Operations Lead: Raoul Herrera MD, Phone: ??[phone] Emma Borges MD LAB - SEROLOGY ORDERABLES [facility] ([facility]) [address] [id number] * (ABNORMAL) URIC ACID BLOOD (12/30/2018 2:42 PM DRAFTER APPRENTICE) Pathologist [facility] Uric Acid 7.3(H) 2.6 - 7.2 mg/dL 12/30/2018 3:56 PM DRAFTER APPRENTICE [facility] Blood BLOOD SPECIMEN / Unknown Lab Venipuncture / Unknown 12/30/2018 2:42 PM DRAFTER APPRENTICE 12/30/2018 3:19 PM DRAFTER APPRENTICE Emma Borges MD LAB - CHEMISTRY ORDERABLES Performing Organization Address [facility] Co de Phone Number [address] [phone] * LDH BLOOD (12/30/2018 2:42 PM DRAFTER APPRENTICE) [facility] LDH Total 188 125 - 243 Units/L 12/30/2018 3:54 PM DRAFTER APPRENTICE [facility] Blood BLOOD SPECIMEN / Unknown Lab Venipuncture / Unknown 12/30/2018 2:42 PM DRAFTER APPRENTICE 12/30/2018 3:19 PM DRAFTER APPRENTICE Emma Borges MD LAB - CHEMISTRY ORDERABLES Performing Organization Address [facility]/ZIP Co de Phone Number [address] [phone] * CK BLOOD (12/30/2018 2:42 PM DRAFTER APPRENTICE) Pathologist [facility] CK Total 126 30 - 200 Units/L 12/30/2018 3:54 PM [facility] Blood BLOOD SPECIMEN / Unknown Lab Venipuncture / Unknown 12/30/2018 2:42 PM DRAFTER APPRENTICE 12/30/2018 3:19 PM DRAFTER APPRENTICE Emma Borges MD LAB - CHEMISTRY ORDERABLES [facility] [address] [place] [address] * (ABNORMAL) CBC WITH DIFFERENTIAL (12/30/2018 2:42 PM DRAFTER APPRENTICE) WBC 11.0(H) 3.5 - 10.5 10? 3 /uL 12/30/2018 3:37 PM [facility] RBC 4.60 3.90 - 5.00 10? 6 /uL 12/30/2018 3:37 PM [facility] Hemoglobin 13.2 12.0 - 15.5 g/dL 12/30/2018 3:37 PM [facility] Hematocrit 42.7 35.0 - 45.0 % 12/30/2018 3:37 PM [facility] MCV 92.8 81.0 - 97.0 fL 12/30/2018 3:37 PM [facility] MCH 28.7 28.0 - 34.0 pg 12/30/2018 3:37 PM [facility] MCHC 30.9(L) 32.0 - 36.0 g/dL 12/30/2018 3:37 PM [facility] Platelet Count 328 150 - 400 10? 3 /uL 12/30/2018 3:37 PM [facility] RDW-SD 44.5 36.0 - 50.0 fL 12/30/2018 3:37 PM [facility] RDW-CV 13.2 11.2 - 14.8 % 12/30/2018 3:37 PM [facility] MPV 10.7 9.3 - 12.8 fL 12/30/2018 3:37 PM [facility] nRBC Absolute 0.00 0 10? 3 /uL 12/30/2018 3:37 PM [facility] nRBC Auto 0.0 0 /100 WBC 12/30/2018 3:37 PM [facility] Neutrophils % 57.7 35.0 - 70.0 % 12/30/2018 3:37 PM [facility] Lymphocytes % 31.2 19.7 - 55.1 % 12/30/2018 3:37 PM [facility] Monocytes % 6.6 3.0 - 15.0 % 12/30/2018 3:37 PM [facility] Eosinophils % 3.5 0.0 - 6.0 % 12/30/2018 3:37 PM [facility] Basophil % 0.7 0.0 - 1.5 % 12/30/2018 3:37 PM [facility] Neutrophils Absolute 6.4 1.6 - 7.0 10? 3 /uL 12/30/2018 3:37 PM [facility] Lymphocyte Absolute 3.4(H) 0.8 - 2.9 10? 3 /uL 12/30/2018 3:37 PM [facility] Monocytes Absolute 0.73(H) 0.14 - 0.66 10? 3 /uL 12/30/2018 3:37 PM [facility] Eosinophils Absolute 0.39 0.00 - 0.45 10? 3 /uL 12/30/2018 3:37 PM [facility] Basophils Absolute 0.08(H) 0.00 - 0.06 10? 3 /uL 12/30/2018 3:37 PM [facility] Immature Granulocytes % 0.3 0.0 - 1.0 % 12/30/2018 3:37 PM [facility] Blood BLOOD SPECIMEN / Unknown Lab Venipuncture / Unknown 12/30/2018 2:42 PM DRAFTER APPRENTICE 12/30/2018 3:19 PM [facility] Emma Borges MD LAB - HEMATOLOG Y ORDERABLES [address] [phone] * ALDOLASE (12/30/2018 2:42 PM [facility]) Aldolase 8.1 3.3 - 10.3 U/L 01/01/2019 4:09 PM [facility] ([facility]) Blood BLOOD SPECIMEN / Unknown Lab Venipuncture / Unknown 12/30/2018 2:42 PM DRAFTER APPRENTICE 12/30/2018 3:20 PM DRAFTER APPRENTICE Narrative [facility] ([facility]) - 01/01/2019 4:09 PM DRAFTER APPRENTICE Performed at: ??01 - [facility] [address] [facility] [place], [place] ??[id number] Network Operations Lead: Raj Price PhD, Phone: ??[phone] Emma Borges MD LAB - CHEMISTRY ORDERABLES [facility] ([facility]) [address] [place] [address] * (ABNORMAL) ERYTHROCYTE SEDIMENTATION RATE (12/30/2018 2:42 PM DRAFTER APPRENTICE) Erythrocyte Sedimentation Rate Westergren 35(H) 0 - 30 MM/HR 12/30/2018 3:49 PM DRAFTER APPRENTICE [facility] Blood BLOOD SPECIMEN / Unknown Lab Venipuncture / Unknown 12/30/2018 2:42 PM DRAFTER APPRENTICE 12/30/2018 3:19 PM DRAFTER APPRENTICE Emma Borges MD LAB - HEMATOLOG Y ORDERABLES Performing Organization Address City/[facility]/ZIP Co de Phone Number [address] [phone] * C-REACTIVE PROTEIN (12/30/2018 2:42 PM DRAFTER APPRENTICE) Pathologist [facility] C-Reactive Protein <0.5 <=0.5 mg/dL 12/30/2018 4:30 PM DRAFTER APPRENTICE [facility] Blood BLOOD SPECIMEN / Unknown Lab Venipuncture / Unknown 12/30/2018 2:42 PM DRAFTER APPRENTICE 12/30/2018 3:18 PM DRAFTER APPRENTICE Emma Borges MD LAB - CHEMISTRY ORDERABLES Performing Organization Address City/[facility]/ZIP Co de Phone Number [address] [phone] * (ABNORMAL) COMPREHENSIVE METABOLIC PANEL (12/30/2018 2:42 PM [facility]) BUN 21 7 - 26 mg/dL 12/30/2018 3:54 PM [facility] Creatinine 0.9 0.6 - 1.2 mg/dL 12/30/2018 3:54 PM [facility] Sodium 141 136 - 145 mmol/L 12/30/2018 3:54 PM [facility] Potassium 4.4 3.5 - 4.5 mmol/L 12/30/2018 3:54 PM [facility] Chloride 105 98 - 107 mmol/L 12/30/2018 3:54 PM [facility] CO2 25 22 - 29 mmol/L 12/30/2018 3:54 PM [facility] Glucose 174(H) 70 - 115 mg/dL 12/30/2018 3:54 PM [facility] Calcium 10.8(H) 8.4 - 10.2 mg/dL 12/30/2018 3:54 PM [facility] Protein Total 7.5 6.0 - 8.3 g/dL 12/30/2018 3:54 PM [facility] Albumin 3.8 3.4 - 5.0 g/dL 12/30/2018 3:54 PM [facility] Bilirubin Total 0.2 0.2 - 1.2 mg/dL 12/30/2018 3:54 PM [facility] Alkaline Phosphatase 73 40 - 150 Units/L 12/30/2018 3:54 PM [facility] ALT 38 0 - 55 Units/L 12/30/2018 3:54 PM [facility] AST 39(H) 5 - 34 Units/L 12/30/2018 3:54 PM [facility] Anion Gap 15 8 - 18 12/30/2018 3:54 PM [facility] BUN/Creatinine Ratio 23 7 - 23 12/30/2018 3:54 PM [facility] Osmolality Calculated 299 270 - 300 mOsm/kg 12/30/2018 3:54 PM [facility] Albumin/Globulin Ratio 1.0(L) 1.1 - 2.3 12/30/2018 3:54 PM [facility] eGFR >60 >60 mL/min/1.7 3 m2 12/30/2018 3:54 PM [facility] Blood BLOOD SPECIMEN / Unknown Lab Venipuncture / Unknown 12/30/2018 2:42 PM DRAFTER APPRENTICE 12/30/2018 3:19 PM DRAFTER APPRENTICE Emma Borges MD LAB - CHEMISTRY ORDERABLES [facility] [address] [phone] documented in this encounter Visit Diagnoses Diagnosis Arthralgia, unspecified joint- Primary Dry eye Sicca, unspecified type (HCC) Arthralgia, unspecified joint Dry eye Sicca, unspecified type (HCC) documented in this encounter Care Teams Computer System Technician Relationship Specialty Start Date End Date Elen Hathaway, VP OF GLOBAL MARKETING-TAXATION CONSULTANT [address] [place] [id number] PCP - General 09/04/18 01/04/19 documented as of this encounter
--- OUTSIDE RECORDS SUMMARY | 2024-03-03 17:30 | XMS_ITS | Referral Summary ---
Author Organization [facility] Address [address] [facility] [place] [address] Care Team Providers Care Technical Healthcare Consultant Name Role Phone Vilma Herrera PA-C Primary Care Provider + Source Comments [facility],non-owned Affiliates and Associated Physician Practices is amultiple site organization consisting of ambulatory clinics and hospital sitesin [place], [place], [place] and [place]. This disclosure is being madepursuant to the Care Everywhere program and may not contain all information available regarding this patient. Last updated 17.[facility] [employer] Allergies Active Allergy Reactions Criticality Noted Date [...] mouth 2 times daily Active nystatin (MYCOSTATIN) 275583 UNIT/GM cream Apply to affected area 2 [...] Comments Blood Pressure 120/64 04/14/2019 3:23 PM DECK OFFICER Pulse 70 04/14/2019 3:23 PM DECK OFFICER Temperature 36.9 ??C (98.4 ??F) 04/14/2019 3:23 PM CS T Respiratory Rate - - Oxygen Saturation - - Inhaled Oxygen Concentration - - Weight 110.2 kg (243 lb) 04/14/2019 3:23 PM DECK OFFICER Height 162.6 cm (5' 4 ) 04/14/2019 3:23 PM DECK OFFICER Body Mass Index 41.71 04/14/2019 3:23 PM DECK OFFICER Plan of Treatment Not on file Procedures Procedure Name Priority Date/Time Associated Diagnosis Comments COMPREHENSIVE METABOLIC PANEL Routine 12/30/2018 2:42 PM DECK OFFICER Arthralgia, unspecified joint Dry eye Sicca, unspecified type (HCC) from Last 3 Months or Most Recently Relevant to Health Maintenance Results * (ABNORMAL) COMPREHENSIVE METABOLIC PANEL (12/30/2018 2:42 PM DECK OFFICER) BUN 21 7 - 26 mg/dL 12/30/2018 3:54 PM [facility] Creatinine 0.9 0.6 - 1.2 mg/dL 12/30/2018 3:54 PM [facility] Sodium 141 136 - 145 mmol/L 12/30/2018 3:54 PM [facility] Potassium 4.4 3.5 - 4.5 mmol/L 12/30/2018 3:54 PM [facility] Chloride 105 98 - 107 mmol/L 12/30/2018 3:54 PM [facility] CO2 25 22 - 29 mmol/L 12/30/2018 3:54 PM [facility] Glucose 174(H) 70 - 115 mg/dL 12/30/2018 3:54 PM [facility] Calcium 10.8(H) 8.4 - 10.2 mg/dL 12/30/2018 3:54 PM DECK OFFICER [facility] Protein Total 7.5 6.0 - 8.3 g/dL 12/30/2018 3:54 PM [facility] Albumin 3.8 3.4 - 5.0 g/dL 12/30/2018 3:54 PM [facility] Bilirubin Total 0.2 0.2 - 1.2 mg/dL 12/30/2018 3:54 PM [facility] Alkaline Phosphatase 73 40 - 150 Units/L 12/30/2018 3:54 PM [facility] ALT 38 0 - 55 Units/L 12/30/2018 3:54 PM [facility] AST 39(H) 5 - 34 Units/L 12/30/2018 3:54 PM [facility] Anion Gap 15 8 - 18 12/30/2018 3:54 PM [facility] BUN/Creatinine Ratio 23 7 - 23 12/30/2018 3:54 PM [facility] Osmolality Calculated 299 270 - 300 mOsm/kg 12/30/2018 3:54 PM [facility] Albumin/Globulin Ratio 1.0(L) 1.1 - 2.3 12/30/2018 3:54 PM [facility] eGFR >60 >60 mL/min/1.7 3 m2 12/30/2018 3:54 PM [facility] Blood BLOOD SPECIMEN / Unknown Lab Venipuncture / Unknown 12/30/2018 2:42 PM DECK OFFICER 12/30/2018 3:19 PM DECK OFFICER Emma Borges MD LAB - CHEMISTRY ORDERABLES Performing Organization Address City/State/[facility] Co de Phone Number [facility] [address] [phone] from Last 3 Months or Most Recently Relevant to Health Maintenance Care Teams Technical Healthcare Consultant Relationship Specialty Start Date End Date Vilma Herrera PA-C [address] [place] [phone] PCP - General 01/05/19
--- OUTSIDE RECORDS SUMMARY | 2024-03-03 17:30 | XMS_ITS | Encounter Summary ---
Author Organization [facility] Address [address] [place] [address] Phone Care Team Providers Care Library Information Technician Name Role Phone Giselle Lamas JOSSELIN Primary Care Provider [phone] Reason for Visit * Reason Comments Medication Refill Encounter Details Date Type Department Care Team (Late st Contact Info) Description 08/16/2019 Refill [facility] - Endocrinology [facility] [address] [place] [phone] Steve Givens MD [address] [phone] Medication Refill Social History Tobacco Use Types [...] prescriptions, but that [facility] no longer takes [employer] insurance and that patient will need further refills from PCP or a new textiles printer. Patient verbalized understanding and has an appointment with a new textiles printer. * Telephone Encounter - Steve Givens MD - 08/16/2019 4:33 PM CDT Rx sent The patient has [employer] Insurance. Please advise her again to get future Rx from PCP or a new textiles printer office. documented in this encounter Plan of Treatment Not on file documented as of this encounter Visit Diagnoses Not on filedocumented in this encounter Care Teams Library Information Technician Relationship Specialty Start Date End Date Giselle Lamas PAC [address] [phone] PCP - General Physician Curtain Framer 08/01/17 documented as of this encounter
--- OUTSIDE RECORDS SUMMARY | 2024-03-03 17:30 | XMS_ITS | Encounter Summary ---
Author Organization [facility] Address [address] [facility] [address] Phone Care Team Providers Care Assistant Hvac Mechanic Name Role Phone Giselle Lamas JOSSELIN Primary Care Provider [phone] Reason for Visit * Reason Comments Medication Refill Encounter Details Date Type Department Care Team (Late st Contact Info) Description 04/30/2019 Refill [facility] - Endocrinology [facility] [address] [place] [phone] Steve Givens MD [address] [phone] Medication Refill Social History Tobacco Use Types [...] on filedocumented in this encounter Care Teams Assistant Hvac Mechanic Relationship Specialty Start Date End Date Giselle Lamas PAC [address] [place] [address] PCP - General Physician Cooler Man 08/01/17 documented as of this encounter
--- OUTSIDE RECORDS SUMMARY | 2024-03-03 17:34 | XMS_ITS | Encounter Summary ---
Author Organization [facility] Healthcare Address [address] [place] [address] Care Team Providers Care Grain Miller Helper Name Role Phone Eron Holliday NP Primary Care Provider [phone]- [phone] Marialuisa Daniel NP Unavailable Leobardo Bhagat MD Unavailable [phone] Florin Dixon MD Unavailable Reason for Visit * Reason Comments PT Treatment * Physical Therapy (Routine) - Authorized Specialty Diagnoses / Procedures Referred By Claudette smith Referred To Contact Physical Therapy Diagnoses Aftercare following right knee joint replacement surgery Yoan Edwards PA [facility] [address] THAKUR [address] [place] [address] Phone: tel: fax: Regi Khan DO [address] [place] [address] DR THAKUR [address] [place] [address] Phone: tel: fax: Referral ID Status Reason Start Date Expiration Date Visits Requested Visits Authorized [id number] Authorized Specialty Services Required 10/21/2023 10/23/2024 36 18 Encounter Details Date Type Department Care Team (Late st Contact Info) Description 12/02/2023 9:15 AM CDT Therapy 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 Primary osteoarthritis of right knee M17.11 Water Supervisor Services Utilized: NO Patient is identified [...] strengthening and stretching R knee. Nora Tapia, [facility] Services ATTENTION PHYSICIAN If you are unable [...] knee documented in this encounter Care Teams Grain Miller Helper Relationship Specialty Start Date End Date Eron Holliday NP [address] [facility] [place] [address] PCP - General Pain Management 07/15/22 Marialuisa Daniel NP [address] [facility] [place] [address] Nurse Practitioner Endocrinology Diabetes & Metabolism 09/22/23 Leobardo Bhagat MD [address] [place] [address] [address] Consulting Physician Nephrology 09/22/23 [place] [address] [address] Consulting Physician Cardiovascular Disease 09/22/23 documented as of this encounter
--- OUTSIDE RECORDS SUMMARY | 2024-03-03 17:34 | XMS_ITS | Encounter Summary ---
Author Organization [facility] Healthcare Address [address] [place] [address] Care Team Providers Care Regulatory Law Specialist Name Role Phone Eron Acevedo NP Primary Care Provider [phone]- [phone] Marialuisa Daniel NP Unavailable [phone] Leobardo Bhagat MD Unavailable [phone] Florin Dixon MD Unavailable Reason for Visit * Reason Comments PT Treatment * Physical Therapy (Routine) - Authorized Specialty Diagnoses / Procedures Referred By Claudette smith Referred To Contact Physical Therapy Diagnoses Aftercare following right knee joint replacement surgery Yoan Edwards PA [address] [place] [address] [address] THAK[address] [place] [address] Phone: tel: fax: Reg[facility] [address] THAKUR [address] [place] [address] Phone: tel: fax: Referral ID Status Reason Start Date Expiration Date Visits Requested Visits Authorized [id number] Authorized Specialty Services Required 10/21/2023 10/23/2024 36 18 Encounter Details Date Type Department Care Team (Late st Contact Info) Description 10/29/2023 10:00 AM CDT Therapy [facility] Medical Office Bldg 1 OP Physical Therapy [address] [place] [address] [place], Karly, PIGMENT WEIGHER Aftercare following right knee joint replacement surgery [...] materials from doctor or pharmacy Never 10/22/2023 [facility] Utilities Answer Date [...] often do you attend chur ch or moravian services? 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 Karly Antunez PTA [facility] ATTENTION PHYSICIAN If you [...] Primary documented in this encounter Care Teams Regulatory Law Specialist Relationship Specialty Start Date End Date Eron Acevedo NP [address] [place] [address] PCP - General Pain Management 07/15/22 Marialuisa Daniel NP [address] [place] [address] Nurse Practitioner Endocrinology Diabetes & Metabolism 09/22/23 Leobardo Bhagat MD [address] [place] [address] Consulting Physician Nephrology 09/22/23 [place] [address] [address] Consulting Physician Cardiovascular Disease 09/22/23 documented as of this encounter
--- OUTSIDE RECORDS SUMMARY | 2024-03-03 17:34 | XMS_ITS | Encounter Summary ---
Author Organization [facility] Healthcare Address [address] [place] [address] Care Team Providers Care Iuss Analyst Name Role Phone Eron Holliday NP Primary Care Provider [phone] Marialuisa Daniel NP Unavailable [phone] Leobardo Bhagat MD Unavailable Florin Dixon MD Unavailable Reason for Referral * Diagnostic Imaging (Routine) - Closed Specialty Diagnoses / Procedures Referred By Claudette smith Referred To Contact Diagnoses Aftercare following right knee joint replacement surgery Procedures XR Knee Right 3 Views Yoan Edwards PA [facility]0 [facility] [address] THAKUR [address] [place] [address] Phone: tel: fax: [address] [address] Referral ID Status Reason Start Date Expiration Date Visits Re quested Visits Authorized [id number] Closed 01/01/2024 01/30/2025 1 1 NETWORK ENGINEER Reason for Visit * Diagnostic Imaging (Routine) - Closed Specialty Diagnoses / Procedures Referred By Claudette smith Referred To Contact Diagnoses Aftercare following right knee joint replacement surgery Procedures XR Knee Right 3 Views Yoan Edwards PA [facility] [address] THAKUR [address] [place] [address] Phone: tel: fax: [facility] [address] [place] [phone] Referral ID Status Reason Start Date Expiration Date Visits Re quested Visits Authorized [id number] Closed 01/01/2024 01/30/2025 1 1 Encounter Details Date Type Department Care Team (Latest Contact Info) Description 01/02/2024 11:18 AM VOIP NETWORK ENGINEER - 01/02/2024 11:59 PM VOIP NETWORK ENGINEER Hospital Encounter [facility] MOB 1 DIAG IM[address] [place] [address] Aftercare following right knee joint replacement [...] from doctor or pharmacy Never 10/22/2023 [facility] Utilities Answer Date Recorded In [...] in the past 12 m [facility], were you homeless or living in [...] on file Legal Sex Female 8:53 AM VOIP NETWORK ENGINEER Gender Identity Female 12/26/2023 10:11 PM CDT [...] 03/18/2023 OneTouch Delica Plus Lancet [facility] 09/23/2023 OneTouch Verio Flex meter [facility] 09/23/[address] (PROTONIX) 40 [...] Take 1 tablet by mouth daily 08/27/2023 tirzepatide (Mounjaro) 10 mg/0.5 mL pen injectorIndicatio ns:type 2 diabetes mellitus Inject 10 mg under the skin every 7 days E11.65 2 mL 11 11/10/2023 zolpidem (AMBIEN) 10 mg tablet Take 1 [...] Read Routine (OP Routine) 01/02/2024 12:46 PM VOIP NETWORK ENGINEER Aftercare following right knee joint replacement surgery documented in this encounter Results * XR Knee Right 3 Views (01/02/2024 12:46 PM VOIP NETWORK ENGINEER) Anatomical Region Laterality Modality Lower Extremities, Knee Right Computed Radiography 01/04/2024 7:55 AM VOIP NETWORK ENGINEER Narrative 01/04/2024 8:03 AM VOIP NETWORK ENGINEER EXAM DESCRIPTION: XR KNEE RIGHT 3 VIEWS [...] AM T: ??01/04/2024 8:03 AM Report ID: [id number] Reading Location: ??[id number] Procedure Note Lamont Hidalgo MD - 01/04/2024 [...] Lamont Hidalgo M.D. MF: MARIPOSA Report ID: [id number] Reading Location: [place] [address] Yoan Edwards ERA IMG XR PROCEDURES Final Result documented in this encounter Visit Diagnoses Diagnosis Aftercare following right knee joint replacement surgery documented in this encounter Care Teams Iuss Analyst Relationship Specialty Start Date End Date Eron Holliday NP [address] [place] [address] PCP - General Pain Management 07/15/22 Marialuisa Daniel NP [address] [place] [address] Nurse Practitioner Endocrinology Diabetes & Metabolism 09/22/23 Leobardo Bhagat MD [address] [place] [address] [address] Consulting Physician Nephrology 09/22/23 [place] [address] [address] Consulting Physician Cardiovascular Disease 09/22/23 documented as of this encounter
--- OUTSIDE RECORDS SUMMARY | 2024-03-03 17:34 | XMS_ITS | Encounter Summary ---
Author Organization [facility] Healthcare Address [address] [place] [address] Care Team Providers Care Residence Supervisor Name Role Phone Eron Holliday NP Primary Care Provider [phone] Marialuisa Daniel NP Unavailable [phone] Leobardo Bhagat MD Unavailable [phone] Florin Dixon MD Unavailable Reason for Visit * Reason Comments PT Treatment * Physical Therapy (Routine) - Authorized Specialty Diagnoses / Procedures Referred By Claudette smith Referred To Contact Physical Therapy Diagnoses Aftercare following right knee joint replacement surgery Yoan Edwards PA [facility]0 [facility] DR THAKUR [address] [place] [address] Phone: tel: fax: Regi Khan DO [address] [place] [address] DR THAKUR [address] [place] [address] Phone: tel: fax: Referral ID Status Reason Start Date Expiration Date Visits Requested Visits Authorized [id number] Authorized Specialty Services Required 10/21/2023 10/23/2024 36 18 Encounter Details Date Type Department Care Team (Late st Contact Info) Description 12/16/2023 9:15 AM CDT Therapy 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 Nora Tapia PTA [facility] ATTENTION PHYSICIAN If [...] Primary documented in this encounter Care Teams Residence Supervisor Relationship Specialty Start Date End Date Eron Holliday NP [address] [place] [address] PCP - General Pain Management 07/15/22 Marialuisa Daniel NP [address] [place] [address] Nurse Practitioner Endocrinology Diabetes & Metabolism 09/22/23 Leobardo Bhagat MD [address] [place] [address] Consulting Physician Nephrology 09/22/23 [place] [address] [address] Consulting Physician Cardiovascular Disease 09/22/23 documented as of this encounter
--- OUTSIDE RECORDS SUMMARY | 2024-03-03 17:34 | XMS_ITS | Encounter Summary ---
Author Organization [facility] Healthcare Address [address] [place] [address] Care Team Providers Care Straw Boss Name Role Phone Eron Holliday NP Primary Care Provider [phone] Marialuisa Daniel NP Unavailable [phone] Leobardo Bhagat MD Unavailable [phone] Florin Dixon MD Unavailable Reason for Visit * Reason Comments PT Initial Eval * Physical Therapy (Routine) - Authorized Specialty Diagnoses / Procedures Referred By Claudette smith Referred To Contact Physical Therapy Diagnoses Aftercare following right knee joint replacement surgery Yoan Edwards PA [address] [place] [address] [address] THAK[address] [place] [address] Phone: tel: fax: Regi Khan DO [address] [place] [address] DR THAKUR [address] [place] [address] Phone: tel: fax: Referral ID Status Reason Start Date Expiration Date Visits Requested Visits Authorized [id number] Authorized Specialty Services Required 10/21/2023 10/23/2024 36 18 Encounter Details Date Type Department Care Team (Late st Contact Info) Description 10/23/2023 8:00 AM CDT Therapy [facility] Medical Office Bldg 1 OP Physical Therapy [address] [place] [id number] [phone] Jesse Pride, PT Primary osteoarthritis of right [...] from doctor or pharmacy Never 10/22/2023 [facility] Utilities Answer Date Recorded In [...] any clubs o r organizations such as hindu groups, unions, fraternal or athletic groups, or [...] on file Legal Sex Female 8:53 AM MUCKING MACHINE OPERATOR Gender Identity Female 12/26/2023 10:11 PM CDT Sexual Orientation Straight 12/26/2023 10 :11 PM CDT 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 Not on file Not on file [...] DDD (degenerative disc disease), cervical Depression Diabetes ([facility]) Dizziness Foraminal stenosis of cervical region GERD (gastroesophageal reflux disease) H/O insulin dependent diabetes mellitus High blood pressure Hyperlipidemia Insulin pump in place omnipod dash Obesity PAD (peripheral artery disease) ([facility]) with stent placed on right side Second hand smoke exposure Stomach ulcer Type 1 diabetes mellitus ([facility]) 08/04/2018 Uncontrolled type 2 diabetes mellitus with hyperglycemia ([facility]) 03/14/2017 Uncontrolled type 2 diabetes mellitus with hyperglycemia, with long-term current use of insulin ([facility]) 04/03/2017 Uses self-applied continuous glucose monitoring device Wears partial dentures Past Surgical History: Procedure Laterality Date CARPAL TUNNEL RELEASE SECTION ELBOW SURGERY ESOPHAGOGASTRODUODENOSCOPY 2023 showed some erosion KNEE ARTHROSCOPY TONSILLECTOMY Tobacco Drying Machine Operator Services Utilized: NO Patient is identified [...] stairs SOS normal. 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 Hobbies: Dining out, Baptism Equipment Used: WW Lives in: 1 story, [...] from skilled therapy services. Jesse Pride PT [facility] ATTENTION PHYSICIAN If you are unable [...] 1 documented in this encounter Care Teams Straw Boss Relationship Specialty Start Date End Date Eron Holliday NP [address] [place] [address] PCP - General Pain Management 07/15/22 Marialuisa Daniel NP [address] [place] [address] Nurse Practitioner Endocrinology Diabetes & Metabolism 09/22/23 Leobardo Bhagat MD [address] [place] [address] [address] Consulting Physician Nephrology 09/22/23 [place] [address] [address] Consulting Physician Cardiovascular Disease 09/22/23 documented as of this encounter
--- OUTSIDE RECORDS SUMMARY | 2024-03-03 17:34 | XMS_ITS | Encounter Summary ---
Author Organization [facility] Healthcare Address [address] [place] [address] Care Team Providers Care Saxophone Teacher Name Role Phone Eron Acevedo NP Primary Care Provider [phone]- [phone] Marialuisa Daniel NP Unavailable [phone] Leobardo Bhagat MD Unavailable [phone] Florin Dixon MD Unavailable Reason for Visit * Reason Comments PT Treatment * Physical Therapy (Routine) - Authorized Specialty Diagnoses / Procedures Referred By Claudette smith Referred To Contact Physical Therapy Diagnoses Aftercare following right knee joint replacement surgery Yoan Edwards PA [address] [place] [address] [address] THAK[address] [place] [address] Phone: tel: fax: [facility] [address] THAKUR [address] [place] [address] Phone: tel: fax: Referral ID Status Reason Start Date Expiration Date Visits Requested Visits Authorized [id number] Authorized Specialty Services Required 10/21/2023 10/23/2024 36 18 Encounter Details Date Type Department Care Team (Late st Contact Info) Description 11/07/2023 10:00 AM CDT Therapy [facility] Medical Office Bldg 1 OP Physical Therapy [address] [place] [address] Heidi Foy, IMPREGNATOR Aftercare following right knee joint replacement surgery [...] doctor or pharmacy Never 10/22/2023 [facility] Utilities Answer Date Recorded In the past [...] often do you attend chur ch or judaism services? Never 10/07/2023 Do you belong to any clubs o r organizations such as caodaism groups, unions, fraternal or athletic groups, or [...] any time in the past 12 m [facility], were you homeless or living in a m[facility] (including now)? No 10/07/2023 Personal Safety Answer Date Recorded Have you ever been in or are you currently in a harmful physical or emotional relationship or is someone making you feel afraid or unsafe? Denies 10/06/2023 Comments No Sex and Gender Information Value Date Recorded Sex Assigned at Not on file Legal Sex Female 8:53 AM ELECTRICAL TESTER Gender Identity Female 12/26/2023 10:11 PM CDT Sexual Orientation Straight 12/26/2023 10 :11 PM CDT Occupation Industry Job Start Date Job End Date [employer] Not on file Not on file Not on file documented as of this encounter Progress Notes * Heidi Foy, IMPREGNATOR - 11/07/2023 10:00 AM CDT Images from [...] joint replacement surgery Z47.1 Z96.651 ERON ACEVEDO Mentally Impaired Teacher Services Utilized: NO Patient is identified by [...] improved mobility of R knee.. Heidi Foy, [facility] ATTENTION PHYSICIAN If [...] Primary documented in this encounter Care Teams Saxophone Teacher Relationship Specialty Start Date End Date Eron Acevedo NP [address] [place] [address] PCP - General Pain Management 07/15/22 Marialuisa Daniel NP [address] [place] [address] Nurse Practitioner Endocrinology Diabetes & Metabolism 09/22/23 Leobardo Bhagat MD [address] [place] [address] [address] Consulting Physician Nephrology 09/22/23 [place] [address] [address] Consulting Physician Cardiovascular Disease 09/22/23 documented as of this encounter
--- OUTSIDE RECORDS SUMMARY | 2024-03-03 17:34 | XMS_ITS | Encounter Summary ---
Author Organization [facility] Healthcare Address [address] [place] [address] Care Team Providers Care Database Security Expert Name Role Phone Eron Holliday NP Primary Care Provider [phone] Marialuisa Daniel NP Unavailable [phone] Leobardo Bhagat MD Unavailable [phone] Florin Dixon MD Unavailable Reason for Referral * Diagnostic Imaging (Routine) - Closed Specialty Diagnoses / Procedures Referred By Claudette smith Referred To Contact Diagnoses Aftercare following right knee joint replacement surgery Procedures XR Knee Right 3 View Regi Khan DO [facility] DR THAKUR [address] [place] [address] Phone: tel: fax: [address] [phone] Referral ID Status Reason Start Date Expiration Date Visits Re quested Visits Authorized [id number] Closed 11/06/2023 12/05/2024 1 1 Reason for Visit * Diagnostic Imaging (Routine) - Closed Specialty Diagnoses / Procedures Referred By Claudette smith Referred To Contact Diagnoses Aftercare following right knee joint replacement surgery Procedures XR Knee Right 3 View Regi Khan DO [facility] DR THAKUR [address] [place] [address] Phone: tel: fax: [facility] [address] [place] [address] Referral ID Status Reason Start Date Expiration Date Visits Re quested Visits Authorized [id number] Closed 11/06/2023 12/05/2024 1 1 Encounter Details Date Type Department Care Team (Latest Contact Info) Description 11/20/2023 2:25 PM CDT - 11/20/2023 11:59 PM CDT Hospital Encounter [facility] MOB 1 DIAG IMG [address] [place] [address] Aftercare following right knee joint [...] doctor or pharmacy Never 10/22/2023 [facility] Utilities Answer Date Recorded In the [...] any time in the past 12 m [facility], were you homeless or living in a [...] on file Legal Sex Female 8:53 AM ASSOCIATE FINANCIAL REPRESENTATIVE Gender Identity Female 12/26/2023 10:11 PM CDT [...] 03/18/2023 OneTouch Delica Plus Lancet [facility] gauge [facility] 09/23/2023 OneTouch Verio Flex meter [facility] 09/23/[address] (PROTONIX) 40 mg EC [...] PM T: ??11/23/2023 6:14 PM Report ID: [id number] Reading Location: ??[id number] Procedure Note Lamont Hidalgo MD - 11/23/2023 [...] Lamont Hidalgo M.D. MF: MARIPOSA Report ID: [id number] Reading Location: [place] [address] us Regi Khan DO IMG XR PROCEDURES Final Result documented in this encounter Visit Diagnoses Diagnosis Aftercare following right knee joint replacement surgery documented in this encounter Care Teams Database Security Expert Relationship Specialty Start Date End Date Eron Holliday NP [address] [facility] [place] [address] PCP - General Pain Management 07/15/22 Marialuisa Daniel NP [address] [place] [address] [place] [address] Nurse Practitioner Endocrinology Diabetes & Metabolism 09/22/23 Leobardo Bhagat MD [address] [place] [address] [address] Consulting Physician Nephrology 09/22/23 [place] [address] [address] Consulting Physician Cardiovascular Disease 09/22/23 documented as of this encounter
--- OUTSIDE RECORDS SUMMARY | 2024-03-03 17:34 | XMS_ITS | Encounter Summary ---
Author Organization [facility] Healthcare Address [address] [place] [address] Care Team Providers Care Customer Success Intern Name Role Phone Eron Holliday NP Primary Care Provider [phone]- [phone] Marialuisa Daniel NP Unavailable [phone] Leobardo Bhagat MD Unavailable [phone] Florin Dixon MD Unavailable Encounter Details Date Type Department Care Team (Late st Contact Info) Description 10/23/2023 Plan of Care Documentation [facility] Medical Office Bldg 1 OP Physical Therapy [address] [place] [address] Social History Tobacco Use Types Packs/Day [...] materials from doctor or pharmacy Never 10/22/2023 [facility] Utilities Answer Date Recorded In the past 12 months has th e [employer], oil, or water frestyl threatened to shut off services in your [...] any clubs o r organizations such as bahai groups, unions, fraternal or athletic groups, or [...] any time in the past 12 m [facility], were you homeless or living in [...] file Legal Sex Female 8:53 AM GAS ANALYST Gender Identity Female 12/26/2023 10:11 PM CDT Sexual Orientation Straight 12/26/2023 10 :11 PM CDT Occupation Industry Job Start Date Job End Date [employer] Not on file Not on file Not on file documented as of this encounter Plan of Treatment Not on file documented as of this encounter Visit Diagnoses Not on filedocumented in this encounter Care Teams Customer Success Intern Relationship Specialty Start Date End Date Eron Holliday NP [address] [place] [address] PCP - General Pain Management 07/15/22 Marialuisa Daniel NP [address] [place] [address] Nurse Practitioner Endocrinology Diabetes & Metabolism 09/22/23 Leobardo Bhagat MD [address] [place] [address] [address] Consulting Physician Nephrology 09/22/23 [place] [id number] [address] Consulting Physician Cardiovascular Disease 09/22/23 documented as of this encounter
--- OUTSIDE RECORDS SUMMARY | 2024-03-03 17:34 | XMS_ITS | Encounter Summary ---
Author Organization [facility] Healthcare Address [address] [place] [address] Care Team Providers Care Customer Counter Representative Name Role Phone Eron Holliday NP Primary Care Provider [phone] Marialuisa Daniel NP Unavailable [phone] Leobardo Bhagat MD Unavailable Florin Dixon MD Unavailable Reason for Visit * Auth/Cert (Routine) Specialty Diagnoses / Procedures Referred By Claudette t Referred To Contact Referral ID Status Reason Start Date Expiration Date Visits Re quested Visits Authorized [id number] 1 2 Encounter Details Date Type Department Care Team (Late st Contact Info) Description 10/24/2023 Home Care Visit [facility] Health [place] [address] [address] [place] [id number] Kia Dickerson RN SN TRIAGE ENCOUNTER Social [...] materials from doctor or pharmacy Never 10/22/2023 [facility] Utilities Answer Date Recorded In [...] often do you attend chur ch or quaker services? 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 Patient Full Name: Sandy Lopez MRN: home [...] forwarded to Care Team: [employer]i [employer] requesting they contact patient. Follow-up: Call forwarded to Care Team: [employer] requesting they contact patient. documented in this encounter Plan of Treatment Not on file documented as of this encounter Visit Diagnoses Not on filedocumented in this encounter Home Health Visit - Care Plan Visit Details Visit Type -SN Triage Encoun ter Discipline -Usp Problems Problem Description Start Date Status Goals Interve ntions Learning/Teachin g Needs - Diabetes Disciplines: Usp Learning and teaching needs associated with diagnosis 10/13/2023 Active 1 goal linked to scheduled/documen mariama intervention 7 goal interventions scheduled/documen mariama in this visit Disease Management - Diabetes Disciplines: Usp Management of diabetes symptoms 10/13/2023 Active 1 goal linked to scheduled/documen mariama intervention 3 goal interventions scheduled/documen mariama in this visit Homebound Status Disciplines: Skilled Disciplines Patient's homebound status 10/13/2023 Active 1 goal linked to scheduled/documen mariama intervention 1 goal intervention scheduled/documen mariama in this visit Monitor patient's vital signs every home health visit Disciplines: SN, PT, OT, WAGE AND SALARY ADMINISTRATOR, INCOME TAX ADMINISTRATOR, Skilled Disciplines Monitor patient's vital signs every [...] visit during episode of care Description: Home audiovisual tech to measure vital signs during every home [...] Scheduled documented in this encounter Care Teams Customer Counter Representative Relationship Specialty Start Date End Date Eron Holliday NP [address] [place] [address] PCP - General Pain Management 07/15/22 Marialuisa Daniel NP [address] [place] [address] Nurse Practitioner Endocrinology Diabetes & Metabolism 09/22/23 Leobardo Bhagat MD [address] [place] [address] [address] Consulting Physician Nephrology 09/22/23 [place] [id number] [address] Consulting Physician Cardiovascular Disease 09/22/23 documented as of this encounter
--- OUTSIDE RECORDS SUMMARY | 2024-03-03 17:34 | XMS_ITS | Encounter Summary ---
Author Organization [facility] Healthcare Address [address] [place] [address] Care Team Providers Care Marketing Assistant Manager Name Role Phone Eron Holliday NP Primary Care Provider [phone] Marialuisa Daniel NP Unavailable [phone] Leobardo Bhagat MD Unavailable Florin Dixon MD Unavailable Reason for Visit * Auth/Cert (Routine) Specialty Diagnoses / Procedures Referred By Claudette t Referred To Contact Referral ID Status Reason Start Date Expiration Date Visits Re quested Visits Authorized [id number] 1 2 Encounter Details Date Type Department Care Team (Late st Contact Info) Description 10/22/2023 Home Care Visit [facility] Health [place] [address] [address] [place] [id number] Lei So, ADA PT VIRTUAL OASIS DISCHARGE [...] materials from doctor or pharmacy Never 10/22/2023 [facility] Utilities Answer Date Recorded In the past [...] on file Legal Sex Female 8:53 AM EMBALMER APPRENTICE Gender Identity Female 12/26/2023 10:11 PM CDT Sexual Orientation Straight 12/26/2023 10 :11 PM CDT Occupation Industry Job Start Date Job End Date [employer] Not on file Not on file Not [...] home health visit Disciplines: SN, PT, OT, SOFTWARE CLIENT ARCHITECT, OUTBOUND TELEMARKETING REPRESENTATIVE, Skilled Disciplines Monitor patient's vital signs every [...] visit during episode of care Description: Home capital equipment specialist to measure vital signs during every home [...] Scheduled documented in this encounter Care Teams Marketing Assistant Manager Relationship Specialty Start Date End Date Eron Holliday NP [address] [facility] [place] [address] PCP - General Pain Management 07/15/22 Marialuisa Daniel NP [address] [place] [address] [place] [address] Nurse Practitioner Endocrinology Diabetes & Metabolism 09/22/23 Leobardo Bhagat MD [address] [place] [address] [address] Consulting Physician Nephrology 09/22/23 [place] [id number] [address] Consulting Physician Cardiovascular Disease 09/22/23 documented as of this encounter
--- OUTSIDE RECORDS SUMMARY | 2024-03-03 17:34 | XMS_ITS | Encounter Summary ---
Author Organization [facility] Healthcare Address [address] [place] [address] Care Team Providers Care Golf Professional Name Role Phone Eron Acevedo NP Primary Care Provider [phone] Marialuisa Daniel NP Unavailable Leobardo Bhagat MD Unavailable [phone] Florin Dixon MD Unavailable Reason for Visit * Reason Comments PT Treatment * Physical Therapy (Routine) - Authorized Specialty Diagnoses / Procedures Referred By Claudette smith Referred To Contact Physical Therapy Diagnoses Aftercare following right knee joint replacement surgery Yoan Edwards PA [address] [place] [address] [address] [place] [address] Phone: tel: fax: Regi [facility] [address] TH[address] [place] [address] Phone: tel: fax: Referral ID Status Reason Start Date Expiration Date Visits Requested Visits Authorized [id number] Authorized Specialty Services Required 10/21/2023 10/23/2024 36 18 Encounter Details Date Type Department Care Team (Late st Contact Info) Description 11/17/2023 10:00 AM CDT Therapy [facility] Medical Office Bldg 1 OP Physical Therapy [address] [place] [address] Nora Tapia, BILLIARD PARLOR MANAGER Aftercare following right knee joint replacement [...] doctor or pharmacy Never 10/22/2023 [facility] Utilities Answer Date Recorded In the [...] any clubs o r organizations such as jainism groups, unions, fraternal or athletic groups, or [...] any time in the past 12 m [facility], were you homeless or living [...] on file Legal Sex Female 8:53 AM ROPE WALKER Gender Identity Female 12/26/2023 10:11 PM CDT Sexual Orientation Straight 12/26/2023 10 :11 PM CDT Occupation Industry Job Start Date Job End Date [employer] Not on file Not on file Not on file documented as of this encounter Progress Notes * Nora Tapia, BILLIARD PARLOR MANAGER - 11/17/2023 10:00 AM CDT Images from [...] joint replacement surgery Z47.1 Z96.651 ERON ACEVEDO Dog Beautician Services Utilized: NO Patient is identified by [...] strengthening and stretching R knee. Nora Tapia, [facility] Services ATTENTION PHYSICIAN If [...] Primary documented in this encounter Care Teams Golf Professional Relationship Specialty Start Date End Date Eron Acevedo NP [address] [place] [address] PCP - General Pain Management 07/15/22 Marialuisa Daniel NP [address] [place] [id number] Nurse Practitioner Endocrinology Diabetes & Metabolism 09/22/23 Leobardo Bhagat MD [address] [place] [address] Consulting Physician Nephrology 09/22/23 [place] [address] [address] Consulting Physician Cardiovascular Disease 09/22/23 documented as of this encounter
--- OUTSIDE RECORDS SUMMARY | 2024-03-03 17:34 | XMS_ITS | Encounter Summary ---
Author Organization [facility] Healthcare Address [address] [place] [address] Care Team Providers Care Warp Tester Name Role Phone Eron Holliday NP Primary Care Provider [phone] Marialuisa Daniel NP Unavailable [phone] Leobardo Bhagat MD Unavailable [phone] Florin Dixon MD Unavailable Reason for Visit * Auth/Cert (Routine) Specialty Diagnoses / Procedures Referred By Claudette t Referred To Contact Referral ID Status Reason Start Date Expiration Date Visits Re quested Visits Authorized [id number] 1 2 Encounter Details Date Type Department Care Team (Late st Contact Info) Description 10/24/2023 Home Care Visit [facility] Health [place] [address] [address] [place] [phone] Eduarda Bowles, RN TELEPHONE ENCOUNTER Social History [...] from doctor or pharmacy Never 10/22/2023 [facility] Utilities Answer Date Recorded In the past [...] any clubs o r organizations such as yarsani groups, unions, fraternal or athletic groups, or [...] on file Legal Sex Female 8:53 AM RESPIRATORY CARE PROGRAM DIRECTOR Gender Identity Female 12/26/2023 10:11 PM CDT Sexual Orientation Straight 12/26/2023 10 :11 PM CDT 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 Not on file Not on file documented as of this encounter Plan of Treatment Not on file documented as of this encounter Visit Diagnoses Not on filedocumented in this encounter Care Teams Warp Tester Relationship Specialty Start Date End Date Eron Holliday NP [address] [place] [address] PCP - General Pain Management 07/15/22 Marialuisa Daniel NP [address] [place] [address] Nurse Practitioner Endocrinology Diabetes & Metabolism 09/22/23 Leobardo Bhagat MD [address] [place] [address] [address] Consulting Physician Nephrology 09/22/23 [place] [address] [address] Consulting Physician Cardiovascular Disease 09/22/23 documented as of this encounter
--- OUTSIDE RECORDS SUMMARY | 2024-03-03 17:34 | XMS_ITS | Encounter Summary ---
Author Organization [facility] Healthcare Address [address] [place] [address] Care Team Providers Care Mat Making Machine Tender Name Role Phone Eron Holliday NP Primary Care Provider [phone]- [phone] Marialuisa Daniel NP Unavailable [phone] Leobardo Bhagat MD Unavailable [phone] Florin Dixon MD Unavailable Reason for Referral * Diagnostic Imaging (Routine) - Closed Specialty Diagnoses / Procedures Referred By Claudette smith Referred To Contact Diagnoses Aftercare following right knee joint replacement surgery Procedures XR Knee Right 3 View Regi Khan DO [address] [facility] [place] [address] Phone: tel: fax: [address] [phone] Referral ID Status Reason Start Date Expiration Date Visits Re quested Visits Authorized [id number] Closed 11/06/2023 12/05/2024 1 1 Encounter Details Date Type Department Care Team (Late st Contact Info) Description 11/06/2023 Orders Only [facility] Medical Group Orthopedics and Sports Medicine [address] [facility] [address] [place] [phone] Regi Khan DO [facility] [facility] [place] [address] Aftercare following right knee joint replacement surgery [...] materials from doctor or pharmacy Never 10/22/2023 [facility] Utilities Answer Date Recorded In the past 12 months has th e [employer], gas, oil, or water [employer] threatened to shut off services in your [...] on file Legal Sex Female 8:53 AM TESTER OPERATOR HELPER Gender Identity Female 12/26/2023 10:11 PM [...] PM T: ??11/23/2023 6:14 PM Report ID: [id number] Reading Location: [id number] Procedure Note Lamont Hidalgo MD - 11/23/2023 [...] Lamont Hidalgo M.D. MF: [id number] Report ID: [id number] Reading Location: [id number] Ashleighchris Khan IMG XR PROCEDURES Final Result documented in this encounter Visit Diagnoses Diagnosis Aftercare following right knee joint replacement surgery- Primary Aftercare following right knee joint replacement surgery documented in this encounter Care Teams Mat Making Machine Tender Relationship Specialty Start Date End Date Eron Holliday NP [address] [place] [address] [place] [address] PCP - General Pain Management 07/15/22 Marialuisa Daniel, CHRISTOPHER [address] [place] [address] Nurse Practitioner Endocrinology Diabetes & Metabolism 09/22/23 Leobardo Bhagat MD [address] [place] [address] Consulting Physician Nephrology 09/22/23 [place] [address] [address] Consulting Physician Cardiovascular Disease 09/22/23 documented as of this encounter
--- OUTSIDE RECORDS SUMMARY | 2024-03-03 17:34 | XMS_ITS | Encounter Summary ---
Author Organization [facility] Healthcare Address [address] [place] [address] Care Team Providers Care Acid Bleacher Name Role Phone Eron Acevedo NP Primary Care Provider [phone]- [phone] Marialuisa Daniel NP Unavailable [phone] Leobardo Bhagat MD Unavailable [phone] Florin Dixon MD Unavailable Reason for Visit * Reason Comments PT Treatment * Physical Therapy (Routine) - Authorized Specialty Diagnoses / Procedures Referred By Claudette smith Referred To Contact Physical Therapy Diagnoses Aftercare following right knee joint replacement surgery Yoan Edwards PA [facility] [address] THAKUR [address] [place] [address] Phone: tel: fax: Regi Khan DO [address] [place] [address] DR THAK[address] [place] [address] Phone: tel: fax: Referral ID Status Reason Start Date Expiration Date Visits Requested Visits Authorized [id number] Authorized Specialty Services Required 10/21/2023 10/23/2024 36 18 Encounter Details Date Type Department Care Team (Late st Contact Info) Description 11/03/2023 10:45 AM CDT Therapy [facility] Medical Office Bldg 1 OP Physical Therapy [address] [place] [address] Finn Pepper, COAL PULVERIZING OPERATOR Aftercare following right knee joint replacement [...] from doctor or pharmacy Never 10/22/2023 [facility] Utilities Answer Date Recorded In [...] often do you attend chur ch or worship services? Never 10/07/2023 Do you belong to any clubs o r organizations such as hinduism groups, unions, fraternal or athletic groups, or [...] on file Legal Sex Female 8:53 AM ICE SKATING TEACHER Gender Identity Female 12/26/2023 10:11 PM CDT Sexual Orientation Straight 12/26/2023 10 :11 PM CDT Occupation Industry Job Start Date Job End Date [employer] Not on file Not on file Not [...] joint replacement surgery Z47.1 Z96.651 ERON ACEVEDO Apprentice Plant Attendant Services Utilized: NO Patient is identified by [...] mobility of R knee.. Finn Pepper PTA [facility] Services ATTENTION PHYSICIAN If you are [...] Primary documented in this encounter Care Teams Acid Bleacher Relationship Specialty Start Date End Date Eron Acevedo NP [address] [place] [address] PCP - General Pain Management 07/15/22 Marialuisa aDniel NP [address] [place] [address] Nurse Practitioner Endocrinology Diabetes & Metabolism 09/22/23 Leobardo Bhagat MD [address] [place] [address] Consulting Physician Nephrology 09/22/23 [place] [address] [address] Consulting Physician Cardiovascular Disease 09/22/23 documented as of this encounter
--- OUTSIDE RECORDS SUMMARY | 2024-03-03 17:34 | XMS_ITS | Encounter Summary ---
Author Organization [facility] Healthcare Address [address] [place] [address] Care Team Providers Care A P Supervisor Name Role Phone Eron Holliday NP Primary Care Provider [phone] Marialuisa Daniel NP Unavailable Leobardo Bhagat MD Unavailable Florin Dixon MD Unavailable Reason for Visit * Reason Comments PT Treatment PT Progress Note * Physical Therapy (Routine) - Authorized Specialty Diagnoses / Procedures Referred By Claudette smith Referred To Contact Physical Therapy Diagnoses Aftercare following right knee joint replacement surgery Yoan Edwards PA [address] [place] [address] DR THAKUR [address] [place] [address] Phone: tel: fax: Regi Khan DO [address] [place] [address] DR THAKUR [address] [place] [address] Phone: tel: fax: Referral ID Status Reason Start Date Expiration Date Visits Requested Visits Authorized [id number] Authorized Specialty Services Required 10/21/2023 10/23/2024 36 18 Encounter Details Date Type Department Care Team (Late st Contact Info) Description 11/24/2023 11:[address] 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 Not on file Not on file [...] disc disease), cervical Depression Diabetes ([facility]) Dizziness Foraminal stenosis of cervical region GERD (gastroesophageal reflux disease) H/O insulin dependent diabetes mellitus High blood pressure Hyperlipidemia Insulin pump in place omnipod dash Obesity PAD (peripheral artery disease) ([facility]) with stent placed on right side Second hand smoke exposure Stomach ulcer Type 1 diabetes mellitus ([facility]) 08/04/2018 Uncontrolled type 2 diabetes mellitus with hyperglycemia ([facility]) 03/14/2017 Uncontrolled type 2 diabetes mellitus with hyperglycemia, with long-term current use of insulin ([facility]) 04/03/2017 Uses self-applied continuous glucose monitoring device Wears partial dentures Past Surgical History: Procedure Laterality Date CARPAL TUNNEL RELEASE SECTION ELBOW SURGERY ESOPHAGOGASTRODUODENOSCOPY 2023 showed some erosion KNEE ARTHROSCOPY TONSILLECTOMY Concession Supervisor Services Utilized: NO Patient is identified [...] stairs SOS normal. 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 Hobbies: Dining out, Sikh Equipment Used: WW Lives in: 1 story, [...] and home exercise program. Jesse Pride, ADA [facility] Services ATTENTION PHYSICIAN If [...] knee documented in this encounter Care Teams A P Supervisor Relationship Specialty Start Date End Date Eron Holliday NP [address] [place] [address] PCP - General Pain Management 07/15/22 Marialuisa Daniel NP [address] [place] [address] Nurse Practitioner Endocrinology Diabetes & Metabolism 09/22/23 Leobardo Bhagat MD [address] [place] [address] Consulting Physician Nephrology 09/22/23 [place] [address] [address] Consulting Physician Cardiovascular Disease 09/22/23 documented as of this encounter
--- OUTSIDE RECORDS SUMMARY | 2024-03-03 17:34 | XMS_ITS | Encounter Summary ---
Author Organization [facility] Healthcare Address [address] [place] [address] Care Team Providers Care Microfilm Clerk Name Role Phone Eron Holliday NP Primary Care Provider [phone]- [phone] Marialuisa Daniel NP Unavailable [phone] Leobardo Bhagat MD Unavailable [phone] Florin Dixon MD Unavailable Lamar Slater NP Unavailable [phone] Maycol Gatica DO Unavailable [phone] Reason for Referral * Consultation (Routine) - Pending Review Specialty Diagnoses / Procedures Referred By Contac t Referred To Contact Pain Management Diagnoses Right cervical radiculopathy Foraminal stenosis of cervical region Cervical stenosis of spinal canal Felipe Cox MD [address] [facility] [address] [place] [address] Phone: tel: fax: [address] [phone] Referral ID Status Reason Start Date Expiration Date Visits Requested Visits Authorized [id number] Pending Review Specialty Services Required 4 03/05/2025 1 1 Question Answer Please select the performing region: [facility] [152] # of visits: 1 Comments Cervical injections R BOX MAKER * Consultation (Routine) - Pending Review Specialty Diagnoses / Procedures Referred By Claudette smith Referred To Contact Pain Management Diagnoses Right cervical radiculopathy Foraminal stenosis of cervical region Cervical stenosis of spinal canal Felipe Cox MD [address] [place] [address] Phone: tel: fax: [facility] [address] [address] fax: Referral ID Status Reason Start Date Expiration Date Visits Requested Visits Authorized [id number] Pending Review Specialty Services Required 4 03/05/2025 1 1 Question Answer Please select the performing region: External Order [171] To loc/pos [facility] [place] [[id number]] # of visits: 1 Comments Cervical epidural injections R BOX MAKER Reason for Visit * Reason Comments Follow-up Encounter Details Date Type Department Care Team (Latest Contact Info) Description 02/04/2024 9:30 AM PAPER BOX MAKER Office Visit [facility] [address], [address] [place] [address] Felipe Cox MD [address] [place] [address] Right cervical radiculopathy (Primary Dx); Foraminal stenosis [...] doctor or pharmacy Never 10/22/2023 [facility] Utilities Answer Date Recorded [...] often do you attend chur ch or restorationist services? Never 10/07/2023 Do you belong to [...] on file Legal Sex Female 8:53 AM PAPER BOX MAKER Gender Identity Female 12/26/2023 10:11 PM CDT Sexual Orientation Straight 12/26/2023 10 :11 PM CDT Occupation Industry Job Start Date Job End Date mutual [employer] Not on file Not on file Not on file documented as of this encounter Last Filed Vital Signs Vital Sign Reading Time Taken Comments Blood Pressure 97/57 02/04/2024 9:21 AM PAPER BOX MAKER Pulse 79 02/04/2024 9:21 AM PAPER BOX MAKER Temperature - - Respiratory Rate 18 02/04/2024 9:21 AM PAPER BOX MAKER Oxygen Saturation 97% 02/04/2024 9:21 AM PAPER BOX MAKER Inhaled Oxygen Concentration - - Weight 92.1 kg (203 lb) 02/04/2024 9:21 AM PAPER BOX MAKER Height 165 cm (5' 4.96 ) 02/04/2024 9:21 AM PAPER BOX MAKER Body Mass Index 33.82 02/04/2024 9:21 AM PAPER BOX MAKER documented in this encounter Patient Instructions * Patient Instructions* Aby Zabala RN - 02/04/2024 9:30 AM PAPER BOX MAKER Referral sent to pain management Follow-up via telephone two wks after hand surgery R BOX MAKER documented in this encounter Progress Notes * [...] (four) times a day before meals and kysbutpV35.65, Disp: 400 each, Rfl: 3 aspirin 81 [...] Disp: 1 kit, Rfl: 1 blood-glucose sensor (Vigno G7 Sensor) device, CHANGE SENSOR EVERY 10 [...] PUMP MAX OF 150 UNITS DAILY NEEDED [id number], 0400-2.6 PER HOUR IC 6 ISF 20 [...] Exam: AO3 NAD 4/5 in right hand wet finisher and triceps -Katheryn Increased reflexes in RUE compared to LUE Imaging: CT cervical spine 11/19/2023 MRI c spin 08/07/23 IMPRESSION: Multilevel cervical degenerative disc and joint disease, as detailed level by level above. There is rryu-ij-ygpjxknp spinal canal stenosis at C5-C6 and moderate [...] in approximately 1 month Felipe Cox MD R BOX MAKER documented in this encounter Plan of Treatment [...] region documented in this encounter Care Teams Microfilm Clerk Relationship Specialty Start Date End Date Eron Holliday NP [address] [facility] [place] [address] PCP - General Pain Management 07/15/22 Marialuisa Daniel NP [address] [facility] [place] [address] Nurse Practitioner Endocrinology Diabetes & Metabolism 09/22/23 Leobardo Bhagat MD [address] [place] [address] [address] Consulting Physician Nephrology 09/22/23 [place] [address] [address] Consulting Physician Cardiovascular Disease 09/22/23 Lamar Slater NP [address] [facility] [address] [place] [address] Nurse Practitioner Orthopedic Surgery 02/04/24 Maycol Gatica DO [address] [facility] [address] [place] [address] Consulting Physician Orthopedic Surgery 02/04/24 documented as of this encounter
--- OUTSIDE RECORDS SUMMARY | 2024-03-03 17:34 | XMS_ITS | Encounter Summary ---
Author Organization [facility] Healthcare Address [address] [place] [address] Care Team Providers Care School Supervisor Name Role Phone Андрей Acevedo NP Primary Care Provider [phone] Marialuisa Daniel NP Unavailable [phone] Leobadro Bhagat MD Unavailable [phone] Florin Dixon MD Unavailable Reason for Visit * Reason Comments PT Treatment * Physical Therapy (Routine) - Authorized Specialty Diagnoses / Procedures Referred By Claudette smith Referred To Contact Physical Therapy Diagnoses Aftercare following right knee joint replacement surgery Yoan Edwards PA [address] [place] [address] [address] [place] [address] Phone: tel: fax: [facility] DO [facility] [address] [place] [address] Phone: tel: fax: Referral ID Status Reason Start Date Expiration Date Visits Requested Visits Authorized [id number] Authorized Specialty Services Required 10/21/2023 10/23/2024 36 18 Encounter Details Date Type Department Care Team (Late st Contact Info) Description 11/11/2023 10:00 AM CDT Therapy [facility] Medical Office Bldg 1 OP Physical Therapy [address] [place] [address] Gutierrez Phillips, MOTOR PATROL OPERATOR Aftercare following right knee joint replacement [...] doctor or pharmacy Never 10/22/2023 [facility] Utilities Answer Date Recorded In the past 12 months has e Working Equity, gas, oil, or water company threatened to [...] any time in the past 12 m [facility], were you homeless or living in a [...] on file Legal Sex Female 8:53 AM AIRLINE OPERATIONS AGENT Gender Identity Female 12/26/2023 10:11 PM CDT Sexual Orientation Straight 12/26/2023 10 :11 PM CDT 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 Gutierrez Phillips PTA [facility] ATTENTION PHYSICIAN If you [...] Cervicalgia documented in this encounter Care Teams School Supervisor Relationship Specialty Start Date End Date Андрей Acevedo NP [address] [place] [address] PCP - General Pain Management 07/15/22 Marialuisa Daniel NP [address] [place] [address] Nurse Practitioner Endocrinology Diabetes & Metabolism 09/22/23 Leobardo Bhagat MD [address] [place] [address] Consulting Physician Nephrology 09/22/23 [place] [address] [address] Consulting Physician Cardiovascular Disease 09/22/23 documented as of this encounter
--- OUTSIDE RECORDS SUMMARY | 2024-03-03 17:34 | XMS_ITS | Encounter Summary ---
Author Organization [facility] Healthcare Address [address] [place] [address] Care Team Providers Care Bus Repair Supervisor Name Role Phone Eron Holliday NP Primary Care Provider [phone] Marialuisa Daniel NP Unavailable [phone] Leobardo Bhagat MD Unavailable [phone] Florin Dixon MD Unavailable Reason for Visit * Reason Comments PT Treatment * Physical Therapy (Routine) - Authorized Specialty Diagnoses / Procedures Referred By Claudette smith Referred To Contact Physical Therapy Diagnoses Aftercare following right knee joint replacement surgery Yoan Edwards PA [facility] [address] [place] [address] Phone: tel: fax: Regi Khan DO [address] [place] [address] DR [address] [place] [address] Phone: tel: fax: Referral ID Status Reason Start Date Expiration Date Visits Requested Visits Authorized [id number] Authorized Specialty Services Required 10/21/2023 10/23/2024 36 18 Encounter Details Date Type Department Care Team (Late st Contact Info) Description 12/11/2023 2:15 PM CDT Therapy [facility] Medical Office Bldg 1 OP Physical Therapy [address] [place] [address] Nora Tapia, CUSTOMER SERVICE ADMINISTRATOR Aftercare following right knee joint replacement surgery [...] materials from doctor or pharmacy Never 10/22/2023 [facility] Utilities Answer Date Recorded In [...] often do you attend chur ch or hindu services? 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 Physical Therapy Visit/Daily Note 12/11/2023 Sandy Lopez 1965 ICD-10-CM 1. Aftercare following right knee joint replacement surgery Z47.1 Z96.651 Erp Analyst Services Utilized: NO Patient is identified by [...] strengthening and stretching R knee. Nora Tapia, [facility] Rehabilitation Services ATTENTION PHYSICIAN If [...] Primary documented in this encounter Care Teams Bus Repair Supervisor Relationship Specialty Start Date End Date Eron Holliday NP [address] [place] [address] PCP - General Pain Management 07/15/22 Marialuisa Daniel NP [address] [place] [address] Nurse Practitioner Endocrinology Diabetes & Metabolism 09/22/23 Leobardo Bhagat MD [address] [place] [address] Consulting Physician Nephrology 09/22/23 [place] [address] [address] Consulting Physician Cardiovascular Disease 09/22/23 documented as of this encounter
--- OUTSIDE RECORDS SUMMARY | 2024-03-03 17:34 | XMS_ITS | Encounter Summary ---
Author Organization [facility] Healthcare Address [address] [place] [address] Care Team Providers Care Ink Technician Name Role Phone Eron Holliday NP Primary Care Provider [phone] Marialuisa Daniel NP Unavailable [phone] Leobardo Bhagat MD Unavailable Florin Dixon MD Unavailable Reason for Visit * Reason Onset Date Comments Return to Work 11/05/2023 Encounter Details Date Type Department Care Team (Late st Contact Info) Description 11/05/2023 Documentation [facility] Medical Group Orthopedics and Sports Medicine [address] [place] [phone] Regi Khan DO [address] [facility] [address] [place] [address] Return to Work Social History Tobacco [...] materials from doctor or pharmacy Never 10/22/2023 [facility] Utilities Answer Date Recorded In [...] on file Legal Sex Female 8:53 AM BACTERIOLOGY TEACHER Gender Identity Female 12/26/2023 10:11 PM CDT Sexual Orientation Straight 12/26/2023 10 :11 PM CDT Occupation Industry Job Start Date Job End Date [employer] Not on file Not on file Not on file documented as of this encounter Progress Notes * Tessa Brasher CMA - 11/05/2023 8:15 AM CDT Pt RTW letter documented in this encounter Plan of Treatment Not on file documented as of this encounter Visit Diagnoses Not on filedocumented in this encounter Care Teams Ink Technician Relationship Specialty Start Date End Date Eron Holliday NP [address] [place] [address] PCP - General Pain Management 07/15/22 Marialuisa Daniel NP [address] [place] [address] Nurse Practitioner Endocrinology Diabetes & Metabolism 09/22/23 Leobardo Bhagat MD [address] [place] [address] [address] [place] [address] Consulting Physician Nephrology 09/22/23 [place] [address] [facility] [address] [address] Consulting Physician Cardiovascular Disease 09/22/23 documented as of this encounter
--- OUTSIDE RECORDS SUMMARY | 2024-03-03 17:34 | XMS_ITS | Encounter Summary ---
Author Organization [facility] Healthcare Address [address] [place] [address] Care Team Providers Care Jet Mechanic Name Role Phone Eron Holliday NP Primary Care Provider [phone] Marialuisa Daniel NP Unavailable [phone] Leobardo Bhagat MD Unavailable [phone] Florin Dixon MD Unavailable Reason for [...] Felipe Cox MD [address] [place] [address] Phone: tel: fax: [address] [phone] Referral ID Status Reason Start Date Expiration Date Visits Re quested Visits Authorized [id number] Closed 10/22/2023 11/20/2024 1 1 Reason for [...] Felipe Cox MD [address] [place] [address] Phone: tel: fax: [address] [phone] Referral ID Status Reason Start Date Expiration Date Visits Re quested Visits Authorized [id number] Closed 10/22/2023 11/20/2024 1 1 Encounter Details Date Type Department Care Team (Latest Contact Info) Description 11/19/2023 4:06 PM CDT - 11/19/2023 11:59 PM CDT Hospital Encounter [address] [address] Right cervical radiculopathy; Cervical stenosis of spinal [...] doctor or pharmacy Never 10/22/2023 [facility] Utilities Answer Date Recorded In the [...] any time in the past 12 m [facility], were you homeless or [...] file Legal Sex Female 8:53 AM MACHINE LEAD BURNER Gender Identity Female 12/26/2023 10:11 PM CDT Sexual Orientation Straight 12/26/2023 10 :11 PM CDT 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 ??Uncovertebral spurring and jssj-tzxujfm-liag-right facet arthropathy without significant osseous neural foraminal narrowing. C5-C6: Posterior disc osteophyte complex and thickened ligamentum flavum. ?? Divd-xp-ijjdceop spinal canal stenosis. ??Uncovertebral spurring and facet arthropathy with tfpb-fm-vxbbenkk left and no significant right osseous neural foraminal narrowing. C6-C7: Posterior disc osteophyte complex and thickened ligamentum flavum. ?? Moderate spinal canal stenosis. ??Uncovertebral spurring and facet arthropathy with moderate right and vkit-st-hlkhoriu left neural foraminal narrowing. C7-T1: Disc bulge [...] D: ??11/23/2023 9:33 AM T: Report ID: [id number] Reading Location: ??[id number] Procedure Note Sergio Hensley, DO - 11/24/2023 [...] significant spinal canal stenosis. Uncovertebral spurring and yzby-zritwam-pora-right facet arthropathy without significant osseousneural foraminal narrowing. C5-C6: Posterior disc osteophyte complex and thickened ligamentum flavum. Cqcu-pt-pohvyoer spinal canal stenosis. Uncovertebral spurring and facet arthropathy with eqsw-di-xwxzcdql left and no significant right osseousneural foraminal narrowing. C6-C7: Posterior disc osteophyte complex and thickened ligamentum flavum. Moderate spinal canal stenosis. Uncovertebral spurring and facetarthropathy with moderate right and igjz-ue-qhgvohyx left neural foraminalnarrowing. 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 [place] [place] [address] Nurse Practitioner Endocrinology Diabetes & Metabolism 09/22/23 Leobardo Bhagat MD [address] [place] [address] [address] Consulting Physician Nephrology 09/22/23 [place] [address] [address] Consulting Physician Cardiovascular Disease 09/22/23 documented as of this encounter
--- OUTSIDE RECORDS SUMMARY | 2024-03-03 17:34 | XMS_ITS | Encounter Summary ---
Author Organization [facility] Healthcare Address [address] [place] [address] Care Team Providers Care Epic Ambulatory Analysts Name Role Phone Eron Acevedo NP Primary Care Provider [phone] Marialuisa Daniel NP Unavailable [phone] Leobardo Bhagat MD Unavailable [phone] Florin Dixon MD Unavailable Reason for Visit * Reason Comments PT Treatment * Physical Therapy (Routine) - Authorized Specialty Diagnoses / Procedures Referred By Claudette smith Referred To Contact Physical Therapy Diagnoses Aftercare following right knee joint replacement surgery Yoan Edwards PA [facility] [address] [place] [address] Phone: tel: fax: Regi Khan DO [address] [place] [address] [address] [place] [address] Phone: tel: fax: Referral ID Status Reason Start Date Expiration Date Visits Requested Visits Authorized [id number] Authorized Specialty Services Required 10/21/2023 10/23/2024 36 18 Encounter Details Date Type Department Care Team (Late st Contact Info) Description 10/31/2023 12:45 PM CDT Therapy [facility] Medical Office Bldg 1 OP Physical Therapy [address] [place] [address] Nora Tapia, PILE DRIVER OPERATOR Aftercare following right knee joint replacement [...] from doctor or pharmacy Never 10/22/2023 [facility] Utilities Answer Date Recorded [...] any time in the past 12 m [facility], were you homeless or living [...] file Legal Sex Female 8:53 AM TRAFFIC REPORTER Gender Identity Female 12/26/2023 10:11 PM CDT Sexual Orientation Straight 12/26/2023 10 :11 PM CDT Occupation Industry Job Start Date Job End Date [employer] Not on file Not on file Not on file documented as of this encounter Progress Notes * Nora Tapia, PILE DRIVER OPERATOR - 10/31/2023 12:45 PM CDT Images from [...] joint replacement surgery Z47.1 Z96.651 ERON ACEVEDO Bee Producer Services Utilized: NO Patient is identified by [...] knee to improve mobility. Nora Tapia PTA [facility] Rehabilitation Services ATTENTION [...] Primary documented in this encounter Care Teams Epic Ambulatory Analysts Relationship Specialty Start Date End Date Eron Acevedo NP [address] [place] [address] PCP - General Pain Management 07/15/22 Marialuisa Daniel NP [address] [facility] [place] [address] Nurse Practitioner Endocrinology Diabetes & Metabolism 09/22/23 Leobardo Bhagat MD [address] [place] [address] [address] Consulting Physician Nephrology 09/22/23 [place] [address] [address] Consulting Physician Cardiovascular Disease 09/22/23 documented as of this encounter
--- OUTSIDE RECORDS SUMMARY | 2024-03-03 17:34 | XMS_ITS | Encounter Summary ---
Author Organization [facility] Healthcare Address [address] [place] [address] Care Team Providers Care Wrist Closer Name Role Phone Eron Holliday NP Primary Care Provider [phone] Marialuisa Daniel NP Unavailable [phone] Leobardo Bhagat MD Unavailable Florin Dixon MD Unavailable Encounter Details Date Type Department Care Team (Late st Contact Info) Description 11/24/2023 11:45 AM CDT Lab [facility] Lab [address] [place] [address] Type 2 diabetes mellitus with hyperglycemia, [...] materials from doctor or pharmacy Never 10/22/2023 [facility] Utilities Answer Date Recorded In [...] often do you attend chur ch or yarsanism services? 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 Testing performed by: [facility], [address] [place] [address]., [address] Triglycerides 146 <=149 mg/dL OLIVIA [place] Comment: [...] last revised on 2017. Testing performed by: [address] [address] HDL 38(L) >=40 mg/dL OLIVIA Comment: Interpretive [...] last revised on 2017. Testing performed by: [address] [address] LDL, calculated 54 <=129 mg/dL OLIVIA Comment: [...] last revised on 2023. Testing performed by: [address] [address] Non-HDL Cholesterol 79 mg/dL OLIVIA [place] Comment: [...] last revised on 2017. Testing performed by: [address] [address] Chol/HDL ratio 3 OLIVIA Comment:Testing performed by : [address] [address] Blood 11/24/2023 11:5 6 AM CDT 11/24/2023 12:17 PM CDT Narrative OLIVIA [place] - 11/24/2023 1:25 PM CDT These lab test should be done fasting. This means do not eat or drink for at least 12 hours prior to getting your blood drawn. Has the patient been fasting for 8 hours or more?->Yes us Marialuisa Daniel CREATIVE STRATEGIST LAB BLOOD ORDERABLES Final Resu lt Performing Organization Address [facility] Co de Phone Number OLIVIA [facility] [place] [address] * (ABNORMAL) Albumin Creatinine Ratio, Urine (11/24/2023 11:56 AM CDT) Albumin Ur 199.5 mg/L Comment: Interpretive Data No reference range established. Current interpretive data was last revised 2018. Testing performed by: [address] [address] Creatinine Ur 107.0 mg/dL OLIVAI Comment: Interpretive Data No reference range established. Current interpretive data was last revised 2018. Testing performed by: [address] [address] Albumin Creatinine Ratio, Ur 186(H) 1 - 29 mg/g OLIVIA Comment:Testing performed by : [address] [address] Urine 11/24/2023 11:5 6 AM CDT 11/24/2023 5:06 PM CDT us Marialuisa Daniel CREATIVE STRATEGIST LAB URINE ORDERABLES Final Resu lt Performing Organization Address [facility] Co de Phone Number OLIVIA [facility] [place] [address] documented in this encounter Visit Diagnoses Diagnosis Type 2 diabetes mellitus with hyperglycemia, with long-term current use of insulin (HCC) documented in this encounter Care Teams Wrist Closer Relationship Specialty Start Date End Date Eron Holliday NP [address] [place] [address] PCP - General Pain Management 07/15/22 Marialuisa Daniel NP [address] [place] [address] Nurse Practitioner Endocrinology Diabetes & Metabolism 09/22/23 Leobardo Bhagat MD [address] [place] [address] Consulting Physician Nephrology 09/22/23 [place] [id number] [address] Consulting Physician Cardiovascular Disease 09/22/23 documented as of this encounter
--- OUTSIDE RECORDS SUMMARY | 2024-03-03 17:34 | XMS_ITS | Encounter Summary ---
Author Organization [facility] Healthcare Address [address] [place] [address] Care Team Providers Care Leadership Program Associate Name Role Phone Eron Holliday NP Primary Care Provider [phone] Marialuisa Daniel NP Unavailable [phone] Leobardo Bhagat MD Unavailable Florin Dixon MD Unavailable Reason for Visit * Reason Comments Diabetes Type 2 Encounter Details Date Type Department Care Team (Late st Contact Info) Description 11/10/2023 11:30 AM CDT Office Visit [facility] Medical Group Diabetes Endocrine Care at [address] [place] [address] Marialuisa Daniel, PROJECT MANAGER [address] [place] [address] [address] [place] [id number] Type 2 diabetes mellitus with hyperglycemia, with [...] Never 10/22/2023 [facility] Utilities Answer Date Recorded In the past 12 months has th e [employer], gas, oil, or water company threatened to [...] often do you attend chur ch or roman catholic services? 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 You may receive a phone call or [...] than once per week. See the Dietitian, Computer Information Systems Instructor . Call Centralized Scheduling at [phone] to make an appointment. Exercise: Try moving [...] - Lipid panel; Future - Thyroid Function O'Brien; Future Hypertension associated with type 2 diabetes [...] insulin ([facility]) Assessment [...] was last revised 2018. Testing performed by: [address] [address] Creatinine Ur 107.0 mg/dL OLIVIA Comment: Interpretive Data No reference range established. Current interpretive data was last revised 2018. Testing performed by: [address] [address] Albumin Creatinine Ratio, Ur 186(H) 1 - 29 mg/g OLIVIA Comment:Testing performed by : [address] [address] Urine 11/24/2023 11:5 6 AM CDT 11/24/2023 5:06 PM CDT us Marialuisa Daniel NP LAB URINE ORDERABLES Final Resu lt [facility] [address] [facility] Department [place] [address] * (ABNORMAL) Lipid panel (11/24/2023 [...] last revised on 2017. Testing performed by: [address] [address] Triglycerides 146 <=149 mg/dL OLIVIA Comment: Interpretive [...] last revised on 2017. Testing performed by: [address] [address] HDL 38(L) >=40 mg/dL OLIVIA Comment: Interpretive [...] last revised on 2017. Testing performed by: [address] [address] LDL, calculated 54 <=129 mg/dL OLIVIA Comment: [...] last revised on 2023. Testing performed by: [address] [address] Non-HDL Cholesterol 79 mg/dL OLIVIA Comment: Interpretive [...] last revised on 2017. Testing performed by: [address] [address] Chol/HDL ratio 3 [facility] Comment:Testing performed by : [address] [address] Blood 11/24/2023 11:5 6 AM CDT 11/24/2023 [...] ORDERABLES Final Resu lt Performing Organization Address [facility] de Phone Number [facility] [address] [facility] [place] [address] * Thyroid Function [place] (11/24/2023 11:56 AM CDT) TSH 0.97 0.30 - 4.20 mcIUnit/mL Comment:Testing performed by : [address] [address] Blood 11/24/2023 11:5 6 AM CDT 11/24/2023 12:17 PM CDT Marialuisa Daniel NP LAB BLOOD ORDERABLES Final Resu lt Performing Organization Address City/[facility] Co de Phone Number [place] [phone] [place] [address] * POCT glucose (11/10/2023 11:49 AM CDT) Glucose Blood, POC 176 mg/dL Blood 11/10/2023 11:4 9 AM CDT Marialuisa Daniel PROJECT MANAGER POINT OF CARE TEST ORDERABLES F inal [...] insulin ([facility]) documented in this encounter Historical Medications * This list may reflect changes made after this encounter. OneTouch Verio Flex meter misc 09/23/2023 amoxicillin 500 mg capsule TAKE 1 CAPSULE BY MOUTH EVERY 8 HOURS 11/06/2023 11/20/2023 added in this encounter Care Teams Leadership Program Associate Relationship Specialty Start Date End Date Eron Holliday NP [address] [facility] [place] [address] PCP - General Pain Management 07/15/22 Marialuisa Daniel NP [address] [facility] [place] [address] Nurse Practitioner Endocrinology Diabetes & Metabolism 09/22/23 Leobardo Bhagat MD [address] [place] [address] [address] Consulting Physician Nephrology 09/22/23 [place] [id number] [address] Consulting Physician Cardiovascular Disease 09/22/23 documented as of this encounter
--- OUTSIDE RECORDS SUMMARY | 2024-03-03 17:34 | XMS_ITS | Encounter Summary ---
Author Organization [facility] Healthcare Address [address] [place] [address] Care Team Providers Care Teleradiologist Name Role Phone Eron Holliday NP Primary Care Provider [phone] Marialuisa Daniel NP Unavailable [phone] Leobardo Bhagat MD Unavailable [phone] Florin Dixon MD Unavailable Reason for Visit * Reason Comments Post-op RTKA 10/06/23 Encounter Details Date Type Department Care Team (Late st Contact Info) Description 11/20/2023 2:45 PM CDT Office Visit [facility] Medical Group Orthopedics and Sports Medicine [address] [place] [phone] Regi Khan DO [address] [facility] [address] [address] Aftercare following right knee joint replacement surgery [...] materials from doctor or pharmacy Never 10/22/2023 [facility] Utilities Answer Date Recorded In the [...] often do you attend chur ch or denominational services? 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 She may utilize Tylenol [...] 10/17/2023 added in this encounter Care Teams Teleradiologist Relationship Specialty Start Date End Date Eron Holliday NP 50 [place] [address] PCP - General Pain Management 07/15/22 Marialuisa Daniel, CHRISTOPHER [address] [place] [address] Nurse Practitioner Endocrinology Diabetes & Metabolism 09/22/23 Leobardo Bhagat MD [address] [place] [address] [address] Consulting Physician Nephrology 09/22/23 [place] [id number] [address] Consulting Physician Cardiovascular Disease 09/22/23 documented as of this encounter
--- OUTSIDE RECORDS SUMMARY | 2024-03-03 17:34 | XMS_ITS | Encounter Summary ---
Author Organization [facility] Healthcare Address [address] [place] [address] Care Team Providers Care Supervisor Electronic Testing Name Role Phone Eron Holliday NP Primary Care Provider [phone] Marialuisa Daniel NP Unavailable [phone] Leobardo Bhagat MD Unavailable [phone] Florin Dixon MD Unavailable Reason for Visit * Reason Comments PT Treatment * Physical Therapy (Routine) - Authorized Specialty Diagnoses / Procedures Referred By Claudette smith Referred To Contact Physical Therapy Diagnoses Aftercare following right knee joint replacement surgery Yoan Edwards PA [address] [place] [address] [address] [place] [address] Phone: tel: fax: Regi Khan DO [facility] [address] THAKUR [address] [place] [address] Phone: tel: fax: Referral ID Status Reason Start Date Expiration Date Visits Requested Visits Authorized [id number] Authorized Specialty Services Required 10/21/2023 10/23/2024 36 18 Encounter Details Date Type Department Care Team (Late st Contact Info) Description 12/09/2023 10:00 AM CDT Therapy [facility] Medical Office Bldg 1 OP Physical Therapy [address] [place] [address] Nora Tapia, BOTTOM BUFFER Aftercare following right knee joint replacement surgery [...] materials from doctor or pharmacy Never 10/22/2023 [facility] Utilities Answer Date Recorded In [...] often do you attend chur ch or anglican services? 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 Nora Tapia PTA [facility] Rehabilitation Services ATTENTION PHYSICIAN If you [...] documented in this encounter Care Teams Supervisor Electronic Testing Relationship Specialty Start Date End Date Eron Holliday NP [address] [place] [address] PCP - General Pain Management 07/15/22 Marialuisa Daniel NP [address] [place] [address] Nurse Practitioner Endocrinology Diabetes & Metabolism 09/22/23 Leobardo Bhagat MD [address] [place] [address] Consulting Physician Nephrology 09/22/23 [place] [id number] [address] Consulting Physician Cardiovascular Disease 09/22/23 documented as of this encounter
--- OUTSIDE RECORDS SUMMARY | 2024-03-03 17:34 | XMS_ITS | Encounter Summary ---
Author Organization [facility] Healthcare Address [address] [place] [address] Care Team Providers Care Hoistman Name Role Phone Eron Holliday NP Primary Care Provider [phone] Marialuisa Daniel NP Unavailable [phone] Leobardo Bhagat MD Unavailable [phone] Florin Dixon MD Unavailable Reason for Visit * Reason Comments PT Treatment * Physical Therapy (Routine) - Authorized Specialty Diagnoses / Procedures Referred By Claudette smith Referred To Contact Physical Therapy Diagnoses Aftercare following right knee joint replacement surgery Yoan Edwards PA [facility]0 [facility] [address] THAKUR [address] [place] [address] Phone: tel: fax: Regi Khan DO [address] [place] [address] DR THAKUR [address] [place] [address] Phone: tel: fax: Referral ID Status Reason Start Date Expiration Date Visits Requested Visits Authorized [id number] Authorized Specialty Services Required 10/21/2023 10/23/2024 36 18 Encounter Details Date Type Department Care Team (Late st Contact Info) Description 12/26/2023 2:15 PM CDT Therapy [facility] Medical Office Bldg 1 OP Physical Therapy [address] [place] [address] Nora Tapia, COTTON WEIGHER OPERATOR Aftercare following right knee joint replacement [...] materials from doctor or pharmacy Never 10/22/2023 [facility] Utilities Answer Date Recorded In [...] often do you attend chur ch or orthodoxy services? 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 Physical Therapy Visit/Daily Note 12/26/2023 Sandy Lopez 1965 ICD-10-CM 1. Aftercare following right knee joint replacement surgery Z47.1 Z96.651 [employer] W[employer] Utilized: NO Patient is identified [...] strengthening and stretching R knee. Nora Tapia, [facility] Rehabilitation Services ATTENTION PHYSICIAN If you are [...] Primary documented in this encounter Care Teams Hoistman Relationship Specialty Start Date End Date Eron Holliday NP [address] [place] [address] PCP - General Pain Management 07/15/22 Marialuisa Daniel NP [address] [place] [address] Nurse Practitioner Endocrinology Diabetes & Metabolism 09/22/23 Leobardo Bhagat MD [address] [place] [address] Consulting Physician Nephrology 09/22/23 [place] [address] [address] Consulting Physician Cardiovascular Disease 09/22/23 documented as of this encounter
--- OUTSIDE RECORDS SUMMARY | 2024-03-03 17:34 | XMS_ITS | Encounter Summary ---
Author Organization [facility] Healthcare Address [address] [place] [address] Care Team Providers Care Manager Benefit Name Role Phone Eron Holliday NP Primary Care Provider [phone] Marialuisa Tyson NP Unavailable [phone] Leobardo Bhagat MD Unavailable Florin Dixon MD Unavailable Reason for Visit * Reason Comments Diabetes Type 2 Encounter Details Date Type Department Care Team (Late st Contact Info) Description 01/21/2024 10:30 AM DIRECT[employer] Office Visit [facility] Diabetes Endocrine Care at [address] [place] [address] Marialuisa Tyson, ASSEMBLER TUBING [address] [place] [address] [address] [place] [id number] Type 2 diabetes mellitus with hypoglycemia without [...] doctor or pharmacy Never 10/22/2023 [facility] Utilities Answer Date [...] often do you attend chur ch or shinto services? Never 10/07/2023 Do you belong to any clubs o r organizations such as latter-day groups, unions, fraternal or athletic groups, or [...] any time in the past 12 m [facility], were you homeless or living [...] file Legal Sex Female 8:53 AM [employer] Gender Identity Female 12/26/2023 10:11 PM CDT Sexual Orientation Straight 12/26/2023 10 :11 PM CDT Occupation Industry Job Start Date Job End Date [employer] Not on file Not on file Not on file documented as of this encounter Last Filed Vital Signs Vital Sign Reading Time Taken Comments Blood Pressure 116/60 01/21/2024 10:34 AM [employer] Pulse - - Temperature - - Respiratory Rate - - Oxygen Saturation - - Inhaled Oxygen Concentration - - Weight 91.9 kg (202 lb 11.2 oz) 024 10:34 AM [employer] Height 165.1 cm (5' 5 ) 01/21/2024 10:3 4 AM [employer] Body Mass Index 33.73 01/21/2024 10:34 AM [employer] documented in this encounter Patient Instructions * Patient Instructions* Marialuisa Tyson, CHRISTOPHER - 01/21/2024 10:30 AM [employer] Thanks for coming in today. I am thankful you have trusted me with your care, and hope that you received EXCELLENT care today! Please do not hesitate to call if you have any questions or concerns at [phone]. You may receive a phone call or [...] than once per week. See the Dietitian, Doubler Helper . Call Centralized Scheduling at [phone] to make an appointment. Exercise: Try moving [...] a source of fast-acting carbohydrate with you. [employer] documented in this encounter Progress Notes * [...] long-term current use of insulin ([facility]) (Primary) Assessment & Plan: This [...] 3 months (around 04/22/2024). Marialuisa Tyson NP [employer] documented in this encounter Miscellaneous Notes * [...] units (92%) Interpretation 100% time in range. [employer] * Assessment & Plan Note - Marialuisa [...] minutes sessions or 3- 10 minutes sessions. [employer] * Assessment & Plan Note - Marialuisa Tyson NP - 01/21/2024 1:49 PM CSTAssociated Problem(s): dexcom 7 continous glucose monitor Continuous glucose monitor (cgm) applied 01/08/24 to 01/21/24 This device was placed for monitor and treatment of blood sugar. Interpretation of data- average glucose 115, 94% time in range, 4% hyperglycemia, 1%hypoglycemia noted [employer] * Assessment & Plan Note - Marialuisa Tyson NP - 01/21/2024 1:48 PM CSTAssociated Problem(s): Hyperlipidemia associated with type 2 diabetes mellitus (HCC) This is a chronic condition which is at goal . Goal is LDL less than 70 Continue atorvastatin, Zetia Encouraged to eat healthy, include fresh fruits and vegetables daily and avoid eating fried foods more than once per week. [employer] * Assessment & Plan Note - Marialuisa Tyson NP - 01/21/2024 1:48 PM CSTAssociated Problem(s): Hypertension associated with type 2 diabetes mellitus (HCC) This is a chronic condition which is at goal. Goal is less than 140/90 Continue lisinopril/hydrochlorothiazide Encouraged to monitor weight and B/P at home. [employer] * Assessment & Plan Note - Marialuisa Tyson NP - 01/21/2024 1:48 PM CSTAssociated Problem(s): Type 2 diabetes mellitus with hypoglycemia without coma, with long-term current use of insulin ([facility]) This is a chronic condition which is [...] - elevated. Goal is <30 Continue lisinopril/hydrochlorothiazide [employer] * Assessment & Plan Note - Marialuisa Tyson NP - 01/21/2024 1:46 PM CSTAssociated Problem(s): Type 2 diabetes mellitus with microalbuminuria, with long-term current use of insulin ([facility]) [employer] * Assessment & Plan Note - Marialuisa Tyson NP - 01/21/2024 10:30 AM [employer] Associated Problem(s): Class 1 obesity due to [...] minutes sessions or 3- 10 minutes sessions. [employer] documented in this encounter Plan of Treatment Not on file documented as of this encounter Procedures Procedure Name Priority Date/Time Associated Diagnosis Comments POCT HEMOGLOBIN A1C Routine 01/21/2024 1 0:37 AM [employer] Type 2 diabetes mellitus with hypoglycemia without coma, with long-term current use of insulin ([facility]) POCT GLUCOSE Routine 01/21/2024 10:35 AM [employer] Type 2 diabetes mellitus with hypoglycemia without coma, with long-term current use of insulin ([facility]) documented in this encounter Results * POCT hemoglobin A1c (01/21/2024 10:37 AM [employer]) Hemoglobin A1C, POC 6.1 4.0 - 5.6 % Blood 01/21/2024 10:3 7 AM [employer] Marialuisa Tyson NP POINT OF CARE TEST ORDERABLES F inal Result * POCT glucose (01/21/2024 10:35 AM [employer]) Glucose Blood, POC 153 mg/dL Blood 01/21/2024 10:3 5 AM [employer] Marialuisa Tyson ASSEMBLER TUBING POINT OF CARE TEST ORDERABLES F inal [...] adult documented in this encounter Care Teams Manager Benefit Relationship Specialty Start Date End Date Eron Holliday NP [address] [place] [address] PCP - General Pain Management 07/15/22 Marialuisa Tyson, CHRISTOPHER [address] [place] [address] Nurse Practitioner Endocrinology Diabetes & Metabolism 09/22/23 Leobardo Bhagat MD [address] [place] [address] [address] Consulting Physician Nephrology 09/22/23 [place] [id number] [address] Consulting Physician Cardiovascular Disease 09/22/23 documented as of this encounter
--- OUTSIDE RECORDS SUMMARY | 2024-03-03 17:34 | XMS_ITS | Encounter Summary ---
Author Organization [facility] Healthcare Address [address] [place] [address] Care Team Providers Care Nail Professional Name Role Phone Eron Holliday NP Primary Care Provider [phone] Marialuisa Daniel NP Unavailable [phone] Leobardo Bhagat MD Unavailable [phone] Florin Dixon MD Unavailable Reason for Visit * Reason Comments PT Treatment * Physical Therapy (Routine) - Authorized Specialty Diagnoses / Procedures Referred By Claudette smith Referred To Contact Physical Therapy Diagnoses Aftercare following right knee joint replacement surgery Yoan Edwards PA [facility] [facility] [address] [place] [address] Phone: tel: fax: Regi Khan DO [address] [place] [address] [address] [place] [address] Phone: tel: fax: Referral ID Status Reason Start Date Expiration Date Visits Requested Visits Authorized [id number] Authorized Specialty Services Required 10/21/2023 10/23/2024 36 18 Encounter Details Date Type Department Care Team (Late st Contact Info) Description 12/05/2023 1:30 PM CDT Therapy [facility] Bldg 1 OP Physical Therapy [address] [place] [address] Nora Tapia, PATTERN CLEANER Aftercare following right knee joint replacement surgery [...] materials from doctor or pharmacy Never 10/22/2023 [facility] Utilities Answer Date Recorded In [...] often do you attend chur ch or mormonism services? 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 Physical Therapy Visit/Daily Note 12/05/2023 Sandy Lopez 1965 ICD-10-CM 1. Aftercare following right knee joint replacement surgery Z47.1 Z96.651 2. Primary osteoarthritis of right knee M17.11 [employer] Utilized: NO Patient is identified by [...] and stretching R knee. Nora Tapia PTA [facility] ATTENTION PHYSICIAN If you [...] knee documented in this encounter Care Teams Nail Professional Relationship Specialty Start Date End Date Eron Holliday NP [address] [place] [address] PCP - General Pain Management 07/15/22 Marialuisa Daniel NP [address] [place] [address] Nurse Practitioner Endocrinology Diabetes & Metabolism 09/22/23 Leobardo Bhagat MD [address] [place] [address] Consulting Physician Nephrology 09/22/23 [place] [id number] [address] Consulting Physician Cardiovascular Disease 09/22/23 documented as of this encounter
--- OUTSIDE RECORDS SUMMARY | 2024-03-03 17:34 | XMS_ITS | Clinical Summary ---
Author Organization [facility] Building B Address [address] [place] [address] Care Team Providers Care Choral Director Name Role Phone Eron Holliday NP Primary Care Provider [phone] Marialuisa Tyson NP Unavailable [phone] Leobardo Bhagat MD Unavailable [phone] Florin Dixon MD Unavailable Lamar Slater NP Unavailable [phone] Maycol Gatica DO Unavailable [phone] Allergies Active Allergy Reactions Criticality Noted Date [...] 3 4 Active OneTouch Verio Flex meter [facility] 4 Active tirzepatide (Mounjaro) 10 mg/0.5 mL pen injectorIndicati ons:type 2 diabetes mellitus Inject 10 mg under the skin every 7 days E11.65 2 mL 11 4 Active busPIRone (BUSPAR) 7.5 mg tablet 4 Active OneTouch Delica Plus Lancet 33 gauge [facility] 4 Active blood-glucose sensor (Dexcom G7 Sensor) device CHANGE SENSOR EVERY 10 DAYS 10 each 3 4 Active Active Problems Problem Noted Date Diagnosed Date Arthritis of right knee 10/06/2023 Low vitamin D level 09/18/2022 dexcom 7 continous glucose monitor 07/15/2022 Assessment & Plan (01/21/2024 1:49 PM SUPERVISOR BROADLOOM): Continuous glucose monitor (cgm) applied 01/08/24 to [...] noted Assessment & Plan (01/27/2023 11:02 AM SUPERVISOR BROADLOOM): Continuous glucose monitor (cgm) applied 12/27/2022 to [...] 08/19/2020 Assessment & Plan (01/21/2024 1:46 PM SUPERVISOR BROADLOOM): Assessment & Plan (11/10/2023 12:27 PM CDT): [...] hydrochlorothiazide Assessment & Plan (04/15/2022 12:38 PM SUPERVISOR BROADLOOM): This is a chronic condition which is [...] . ??encouraged to follow up with Dr. Bhagta Assessment & Plan (08/19/2020 8:10 AM CDT): This is a chronic condition which is stable Urine microalbumin/creatinine ratio -??865?-on Losartan 25 mg daily, HCTZ, ?goal <30 . ??Seeing Dr. Bhagat (straightedge worker) Personally reviewed labs: (06/14)BUN-??16, creatinine- 0.94, GFR-69 Kidney function- abnormal B/P today-126/86??, currently Losartan 25 mg daily and HCTZ. ??At goal blood pressure is <140/90 Hyperlipidemia associated with type 2 diabetes magaly hernandez 08/19/2020 Assessment & Plan (01/21/2024 1:48 PM SUPERVISOR BROADLOOM): This is a chronic condition which is [...] prescribed. Assessment & Plan (01/27/2023 11:00 AM SUPERVISOR BROADLOOM): This is a chronic condition which is [...] 11/19/2019 Assessment & Plan (01/21/2024 1:52 PM SUPERVISOR BROADLOOM): This is a chronic condition which is [...] 166. Assessment & Plan (01/27/2023 11:04 AM SUPERVISOR BROADLOOM): This is a chronic condition which is [...] 170 Assessment & Plan (04/15/2022 12:44 PM SUPERVISOR BROADLOOM): This is a chronic condition which is [...] . Assessment & Plan (02/11/2020 1:19 PM SUPERVISOR BROADLOOM): This is a chronic condition which is [...] pump options, with demonstrations Referral made to [facility] [employer] Contact with and (suspected) exposure to other [...] cardiovascular function study 09/04/2018 06/27/2022 Atherosclerosis of [place] ar teries of extremities with intermittent claudication, bilateral legs 09/04/2018 06/27/2022 Hypertension associated with type 2 diabetes nely litus 08/04/2018 Assessment & Plan (01/21/2024 1:48 PM SUPERVISOR BROADLOOM): This is a chronic condition which is [...] prescribed. Assessment & Plan (01/27/2023 11:07 AM SUPERVISOR BROADLOOM): This is a chronic condition which is [...] days. Assessment & Plan (02/11/2020 1:20 PM SUPERVISOR BROADLOOM): This is a chronic condition Encouraged to stop smoking Assessment & Plan (11/19/2019 4:48 PM CDT): This is a chronic condition Encouraged to stop smoking Class 1 obesity due to exces s calories with serious comorbidity and body mass index (BMI) of 33.0 to 33.9 in adult 07/14/2018 06/27/2022 Assessment & Plan (01/21/2024 1:53 PM SUPERVISOR BROADLOOM): >>ASSESSMENT AND PLAN FOR CLASS 1 OBESITY DUE TO EXCESS CALORIES WITH SERIOUS COMORBIDITY AND BODY MASS INDEX (BMI) OF 33.0 TO 33.9 IN ADULT WRITTEN ON 01/21/2024 1:49 PM BY MARIALUISA TYSON [employer] This is a chronic condition which continues [...] week Assessment & Plan (01/27/2023 11:03 AM SUPERVISOR BROADLOOM): This is a chronic condition which is [...] TYPE 2 DIABETES MELLITUS WITHOUT COMPLICATION (CMS/HCC) ([facility]) WRITTEN ON 11/19/2022 8:16 AM BY FLORINDA URIAS MA Was seeing Dr. Givens, now switching to Dr. Mcginnis in [place]. Assessment & Plan (01/21/2024 1:48 PM SUPERVISOR BROADLOOM): This is a chronic condition which is [...] GANGRENE, WITH LONG-TERM CURRENT USE OF INSULIN ([facility]) ([facility]) WRITTEN ON 11/19/2019 5:11 PM BY MARIALUISA [...] GANGRENE, WITH LONG-TERM CURRENT USE OF INSULIN ([facility]) ([facility]) WRITTEN ON 02/11/2020 1:21 PM BY MARIALUISA TYSON, [employer]ODUCT [employer]OP[employer] This is a chronic condition which is [...] last dilated eye exam was [facility] Monofilament foot exam completed, protective [...] No history of macrovascular disease - CVA, SD. Dexcom downloaded for 02/05/20-02/11/20 (7 days) Average blood sugar 161 Highest reading 267 mg/dl Lowest reading 84mg/dl Standard deviation- 39 In target -69% (70-180) High range-31% (>180) Seriously high->2% 97.9% time CGM active. Assessment & Plan (06/26/2023 8:43 AM CDT): >>ASSESSMENT AND PLAN FOR TYPE 2 DIABETES MELLITUS WITH DIABETIC PERIPHERAL ANGIOPATHY WITHOUT GANGRENE, WITH LONG-TERM CURRENT USE OF INSULIN ([facility]) ([facility]) WRITTEN ON 05/12/2020 1:54 PM BY MARIALUISA TYSON, [employer] This is a chronic condition which is [...] last dilated eye exam was [facility] [place] Monofilament foot exam completed, protective senses intact, [...] No history of macrovascular disease - CVA, SD. ?? Dexcom downloaded for 04/29/20 to 05/12/20 [...] GANGRENE, WITH LONG-TERM CURRENT USE OF INSULIN ([facility]) ([facility]) WRITTEN ON 08/19/2020 8:04 AM BY MARIALUISA TYSON, [employer] This is a chronic condition which is [...] eye exam. ??last dilated eye exam was [facility] [place]? Monofilament foot exam completed, protective senses intact [...] macrovascular disease - CVA, SD.? Dexcom downloaded for??08/05/20 to 08/18/20 This device [...] GANGRENE, WITH LONG-TERM CURRENT USE OF INSULIN ([facility]) ([facility]) WRITTEN ON 12/01/2020 2:13 PM BY MARIALUISA TYSON, CHRISTOPHER This is a chronic condition which is??stable??hyperglycemia, not at goal. ?? Personally reviewed A1c today-??8.2% Not at ??goal less than 7% Medication- Continue Omnipod pump?? Continue Ozempic 1mg weekly . Monitor blood sugar??continuously with DexCom 6 sensor. ?? Encouraged annual eye exam. ??last dilated eye exam was [facility] [place]? Monofilament foot exam completed, protective senses intact [...] macrovascular disease - CVA, SD.? Dexcom downloaded for??11/18/20 to 12/01/20 This device [...] GANGRENE, WITH LONG-TERM CURRENT USE OF INSULIN ([facility]) ([facility]) WRITTEN ON 06/01/2021 12:51 PM BY MARIALUISA TYSON NP This is a chronic condition which is??stable??improving hyperglycemia, not at goal. ?? Personally reviewed A1c today-7.8% Not at ??goal less than 7% Medication- Continue Omnipod pump?? Continue Ozempic 1mg weekly . Monitor blood sugar??continuously with DexCom 6 sensor. ?? Encouraged annual eye exam. ??last dilated eye exam was [facility]? Monofilament foot exam completed, protective [...] macrovascular disease - CVA, SD.? Dexcom downloaded for??05/19/21 to 06/01/21 This device [...] GANGRENE, WITH LONG-TERM CURRENT USE OF INSULIN ([facility]) ([facility]) WRITTEN ON 09/13/2021 6:44 PM BY MARIALUISA TYSON [employer] This is a chronic condition which is??slightly??improving hyperglycemia, not at goal. ?? Personally reviewed A1c today-7.8% Not at ??goal less than 7% Medication- Continue Omnipod pump?? Increase Ozempic 2mg weekly- to promote weight loss Monitor blood sugar??continuously with DexCom 6 sensor. ?? Encouraged annual eye exam. ??last dilated eye exam was [facility] [place]? Monofilament foot exam completed, protective senses intact [...] GANGRENE, WITH LONG-TERM CURRENT USE OF INSULIN ([facility]) (HCC) WRITTEN ON 12/28/2021 2:43 PM BY MARIALUISA TYSON, [employer] This is a chronic condition which is [...] Zetia Assessment & Plan (01/27/2023 11:00 AM SUPERVISOR BROADLOOM): This is a chronic condition which is [...] HYPERGLYCEMIA, WITH LONG-TERM CURRENT USE OF INSULIN ([facility]) WRITTEN ON 04/15/2022 12:41 PM BY MARIALUISA TYSON, [employer] This is a chronic condition which is [...] GANGRENE, WITH LONG-TERM CURRENT USE OF INSULIN ([facility]/HCC) (HCC) WRITTEN ON 04/15/2022 12:42 PM BY MARIALUISA TYSON [employer] Sees Dr. Dixon for Cardiology. Has stent [...] continuously with DexCom 6 Referrals made to [facility] and [facility] regarding insulin pump therapy dilated eye exam appt is made for Monofilament foot exam completed, protective senses intact Urine microalbumin/creatinine - abnormal on lisinopril Kidney function eGRF- 55, BUN- 21, creatinine- 1.14 BP today- 138/74 , currently on lisinopril 10 mg daily LDL - 47, currently on Zetia history of macrovascular disease - CVA, SD. Referral to Dr. Bhagat Assessment & Plan [...] Department Care Team Description 02/04/2024 9:30 AM SUPERVISOR BROADLOOM Office Visit [facility] [address] [place] [address], [address] [place] [address] Felipe Cox MD Right cervical radiculopathy (Primary Dx); Foraminal stenosis of cervical region; Cervical stenosis of spinal canal 01/21/2024 10:30 AM SUPERVISOR BROADLOOM Office Visit [facility] Medical Group Diabetes Endocrine Care at [address] [place] [address] Marialuisa Tyson, CHRISTOPHER Type 2 [...] to 33.9 in adult 01/02/2024 11:30 AM SUPERVISOR BROADLOOM Office Visit [facility] Medical Group Orthopedics and Sports Medicine [address] [place] [address] [address] [place] [address] Yoan Edwards PA Aftercare following right knee joint replacement surgery (Primary Dx) 01/02/2024 11:18 AM SUPERVISOR BROADLOOM - 01/02/2024 11:59 PM SUPERVISOR BROADLOOM Hospital Encounter [facility] 1 DIAG IMG [address] [place] [address] Aftercare following right knee joint replacement surgery Discharge Disposition: Discharge to home or self care 12/26/2023 2:15 PM CDT Therapy [facility] Bldg 1 OP Physical Therapy [address] [place] [address] Nora Tapia, DIRECTOR GLOBAL Aftercare following right knee joint replacement surgery (Primary Dx) 12/23/2023 10:00 AM CDT Therapy [facility] Bldg 1 OP Physical Therapy [address] [place] [address] Nora Tapia, DIRECTOR GLOBAL Aftercare following right knee joint replacement surgery (Primary Dx) 12/16/2023 9:15 AM CDT Therapy [facility] Bldg 1 OP Physical Therapy [address] [place] [address] Nora Tapia, DIRECTOR GLOBAL Aftercare following right knee joint replacement surgery (Primary Dx) 12/11/2023 2:15 PM CDT Therapy [facility] Bldg 1 OP Physical Therapy [address] [place] [address] Nora Tapia, DIRECTOR GLOBAL Aftercare following right knee joint replacement surgery (Primary Dx) 12/09/2023 10:00 AM CDT Therapy [facility] Bldg 1 OP Physical Therapy [address] [place] [address] Nora Tapia, DIRECTOR GLOBAL Aftercare following right knee joint replacement surgery (Primary Dx) 12/05/2023 1:30 PM CDT Therapy [facility] Bldg 1 OP Physical Therapy [address] [place] [address] [place] [address] Nora Tapia, DIRECTOR GLOBAL Aftercare following right knee joint replacement surgery (Primary Dx); Primary osteoarthritis of right knee 12/02/2023 9:15 AM CDT Therapy [facility] Office Bldg 1 OP Physical Therapy [address] [place] [address] [place] [address] Nora Tapia, DIRECTOR GLOBAL Aftercare following right knee joint replacement surgery [...] use of insulin ([facility]) 04/03/2017 Type 1 diabetes mellitus ([facility]) 08/04/2018 Uncontrolled type 2 diabetes mellitus with hyperglycemia ([facility]) 03/14/2017 Anxiety Arthritis Depression Dizziness GERD (gastroesophageal reflux disease) High blood pressure Diabetes ([facility]) Foraminal stenosis of cervical region Arthropathy of cervical facet joint DDD (degenerative disc disease), cervical Insulin pump in place omnipod da sh Uses self-applied continuous glucose monitoring device Hyperlipidemia PAD (peripheral artery disease) ([facility]) with stent placed on right side H/O [...] from doctor or pharmacy Never 10/22/2023 [facility] Utilities Answer Date [...] any clubs o r organizations such as rastafarian groups, unions, fraternal or athletic groups, or [...] any time in the past 12 [facility], were you homeless or living [...] file Legal Sex Female 8:53 AM SUPERVISOR BROADLOOM Gender Identity Female 12/26/2023 10:11 PM CDT Sexual Orientation Straight 12/26/2023 10 :11 PM CDT 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 Not on file Not on file Not on file Obstetrics History Last Filed Vital Signs Vital Sign Reading Time Taken Comments Blood Pressure 97/57 02/04/2024 9:21 AM SUPERVISOR BROADLOOM Pulse 79 02/04/2024 9:21 AM SUPERVISOR BROADLOOM Temperature 36.2 ??C (97.1 ??F) 10/14/2023 11:22 AM C DT Respiratory Rate 18 02/04/2024 9:21 AM SUPERVISOR BROADLOOM Oxygen Saturation 97% 02/04/2024 9:21 AM SUPERVISOR BROADLOOM Inhaled Oxygen Concentration - - Weight 92.1 kg (203 lb) 02/04/2024 9:21 AM SUPERVISOR BROADLOOM Height 165 cm (5' 4.96 ) 02/04/2024 9:21 AM SUPERVISOR BROADLOOM Body Mass Index 33.82 02/04/2024 9:21 AM SUPERVISOR BROADLOOM Plan of Treatment Health Maintenance Due Date [...] history exists Medical Devices Implanted Type Area Cart Attendant Device Identifier Shelf Expiration Date Model / Serial / Lot [employer] Attune Cruciate Retain Cementless Knee Right 5 Narrow Component [id number] - [id number] Implanted:Qty: 1 on 10/06/2023 by Regi Khan DO at [facility] Right: Knee [employer] [id number] 06/23/2032 [id number] / / [id number] [employer] Attune 35mm Cemented Medialize Knee Dome Patellar Aox Sterile [id number] - [id number] Implanted:Qty: 1 on 10/06/2023 by Regi Khan DO at [facility] Right: Knee [employer] [id number] 08/24/2031 [id number] / / [id number] [employer] Attune Fb Tib Base Sz 5 Por [id number] - [id number] Implanted:Qty: 1 on 10/06/2023 by Regi Khan DO at [facility] Right: Knee [employer] [id number] 03/26/2033 [id number] / / [id number] [employer] Cmw 2 Fast Set Cement 20gm Bone Sterile 3322-020 - [id number] Implanted:Qty: 1 on 10/06/2023 by eRgi Khan DO at [facility] Right: Knee [employer] [id number] 10/23/2025 3322-020 / / [id number] [employer] Insert Tibial Knee Fixed Rm Posterior Stabilized Attune 6mm Size 5 Polyethylene [id number] - [id number] Implanted:Qty: 1 on 10/06/2023 by Regi Khan DO at [facility] Right: Knee [employer] [id number] 01/23/2030 [id number] / / [id number] Procedures Procedure Name Priority Date/Time Associated Diagnosis Comments POCT HEMOGLOBIN A1C Routine 01/21/2024 10:37 AM SUPERVISOR BROADLOOM Type 2 diabetes mellitus with hypoglycemia without coma, with long-term current use of insulin (HCC) POCT GLUCOSE Routine 01/21/2024 10:35 AM SUPERVISOR BROADLOOM Type 2 diabetes mellitus with hypoglycemia without coma, with long-term current use of insulin (HCC) XR KNEE RIGHT 3 VIEWS Schedule Routine, Read Routine (OP Routine) 01/02/2024 12:46 PM SUPERVISOR BROADLOOM Aftercare following right knee joint replacement surgery [...] * POCT hemoglobin A1c (01/21/2024 10:37 AM SUPERVISOR BROADLOOM) Hemoglobin A1C, POC 6.1 4.0 - 5.6 % Blood 01/21/2024 10:3 7 AM SUPERVISOR BROADLOOM us Marialuisa Tyson [employer]ELOP[employer] POINT OF CARE TEST ORDERABLES F inal Result * POCT glucose (01/21/2024 10:35 AM SUPERVISOR BROADLOOM) Glucose Blood, POC 153 mg/dL Blood 01/21/2024 10:3 5 AM SUPERVISOR BROADLOOM us Marialuisa Tyson PR[employer]ELOPMENT ACTUARY POINT OF CARE TEST ORDERABLES F inal Result * XR Knee Right 3 Views (01/02/2024 12:46 PM SUPERVISOR BROADLOOM) Anatomical Region Laterality Modality Lower Extremities, Knee Right Computed Radiography 01/04/2024 7:55 AM SUPERVISOR BROADLOOM Narrative 01/04/2024 8:03 AM SUPERVISOR BROADLOOM EXAM DESCRIPTION: XR KNEE RIGHT 3 VIEWS [...] AM T: ??01/04/2024 8:03 AM Report ID: [id number] Reading Location: ??[id number] Procedure Note Lamont Hidalgo MD - 01/04/2024 [...] Lamont Hidalgo M.D. MF: [id number] Report ID: [id number] Reading Location: [id number] Yoan Edwards [facility] XR PROCEDURES Final Result * (ABNORMAL) Albumin Creatinine Ratio, Urine (11/24/2023 11:56 AM CDT) Albumin Ur 199.5 mg/L Comment: Interpretive Data No reference range established. Current interpretive data was last revised 2018. Testing performed by: [address] [address] Creatinine Ur 107.0 mg/dL OL[facility]IA [facility] Comment: Interpretive Data No reference range established. Current interpretive data was last revised 2018. Testing performed by: [address] [address] Albumin Creatinine Ratio, Ur 186(H) 1 - 29 mg/g [facility] [place] Comment:Testing performed by : [address] [address] Urine 11/24/2023 11:5 6 AM CDT 11/24/2023 5:06 PM CDT us Marialuisa Tyson NP LAB URINE ORDERABLES Final Resu lt [facility] [address] [facility] Department [place] [address] * (ABNORMAL) Lipid panel (11/24/2023 11:56 AM [...] last revised on 2017. Testing performed by: [facility], [address] [place] [address]., [address] Triglycerides 146 <=149 mg/dL OLIVIA Comment: Interpretive [...] last revised on 2017. Testing performed by: [address] [address] HDL 38(L) >=40 mg/dL [facility] Comment: Interpretive Data Ages < or = [...] last revised on 2017. Testing performed by: [address] [address] LDL, calculated 54 <=129 mg/dL [facility] Comment: Interpretive Data Ages < or = [...] last revised on 2023. Testing performed by: [address] [address] Non-HDL Cholesterol 79 mg/dL OLIVIA Comment: Interpretive [...] last revised on 2017. Testing performed by: [address] [address] Chol/HDL ratio 3 OLIVIA Comment:Testing performed by : [address] [address] Blood 11/24/2023 11:5 6 AM CDT 11/24/2023 12:17 PM CDT Narrative OLIVIA - 11/24/2023 1:25 PM CDT These lab test should be done fasting. This means do not eat or drink for at least 12 hours prior to getting your blood drawn. Has the patient been fasting for 8 hours or more?->Yes us Marialuisa Tyson NP LAB BLOOD ORDERABLES Final Resu lt [facility] [address] [facility] Department [place] [address] * eGFR (10/07/2023 2:52 AM CDT) eGFR [...] [place] LAB BLOOD ORDERABLES Final Resul t [facility] [address] [facility] Department [place] [address] * (ABNORMAL) Diabetic Eye Exam (02/09/2021) us Historical Provider HEALTH MAINTENANCE Final Result * DIABETES FOOT EXAM (04/03/2017) Diabetic Foot Exam Unknown us Historical Provider HEALTH MAINTENANCE Final Result from Last 3 Months or Most Recently Relevant to Health Maintenance Insurance Advance Directives For more information, please contact: [phone] * Full Code (Latest Code Status on File) Date Activated Date Inactivated Comments 10/06/2023 11:23 AM 10/07/2023 11:04 PM Care Teams Choral Director Relationship Specialty Start Date End Date Eron Holliday NP [address] [facility] [address] PCP - General Pain Management 07/15/22 Marialuisa Tyson, CHRISOTPHER [address] [facility] [place] [address] Nurse Practitioner Endocrinology Diabetes & Metabolism 09/22/23 Leobardo Bhagat MD [address] [place] [address] Consulting Physician Nephrology 09/22/23 [place] [address] [address] Consulting Physician Cardiovascular Disease 09/22/23 Lamar Slater NP [address] [place] [address] Nurse Practitioner Orthopedic Surgery 02/04/24 Maycol Gatica DO [address] [place] [address] Consulting Physician Orthopedic Surgery 02/04/24
--- OUTSIDE RECORDS SUMMARY | 2024-03-03 17:34 | XMS_ITS | Encounter Summary ---
Author Organization [facility] Healthcare Address [address] [place] [address] Care Team Providers Care Insurance Healthcare Consultant Name Role Phone Eron Holliday NP Primary Care Provider [phone] Marialuisa Daniel NP Unavailable [phone] Leobardo Bhagat MD Unavailable Florin Dixon MD Unavailable Reason for Visit * Reason Comments PT Treatment Encounter Details Date Type Department Care Team (Late st Contact Info) Description 12/23/2023 10:00 AM CDT Therapy [facility] Medical Office Bldg 1 OP Physical Therapy [address] [place] [address] Nora Tapia, GENEVIEVE Aftercare following right [...] from doctor or pharmacy Never 10/22/2023 [facility] Utilities Answer Date Recorded In [...] often do you attend chur ch or caodaism services? 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 clara Physical Therapy Visit/Daily Note 12/23/2023 Sandy Lopez 1965 ICD-10-CM 1. Aftercare following right knee joint replacement surgery Z47.1 Z96.651 English Adjunct Faculty Services Utilized: NO Patient is identified by [...] Primary documented in this encounter Care Teams Insurance Healthcare Consultant Relationship Specialty Start Date End Date Eron Holliday NP [address] [place] [address] PCP - General Pain Management 07/15/22 Marialuisa Daniel NP [address] [place] [address] [place] [address] Nurse Practitioner Endocrinology Diabetes & Metabolism 09/22/23 Leobardo Bhagat MD [address] [place] [address] Consulting Physician Nephrology 09/22/23 [place] [address] [address] Consulting Physician Cardiovascular Disease 09/22/23 documented as of this encounter
--- OUTSIDE RECORDS SUMMARY | 2024-03-03 17:34 | XMS_ITS | Referral Summary ---
Author Organization [facility] Medical Office Building B Address [address] [place] [address] Care Team Providers Care Pin Drafting Machine Operator Name Role Phone Eron Holliday NP Primary Care Provider [phone] Marialuisa Tyson NP Unavailable [phone] Leobardo Bhagat MD Unavailable [phone] Florin Dixon MD Unavailable Lamar Slater NP Unavailable [phone] Maycol Gatica DO Unavailable [phone] Encounters Date Type Department Care Team Description 02/04/2024 9:30 AM ACCOUNTING RECRUITER Office Visit [facility] Neurosurgery Clinic [address], [address] [place] [address] Felipe Cox MD Right cervical radiculopathy (Primary Dx); Foraminal stenosis of cervical region; Cervical stenosis of spinal canal 01/21/2024 10:30 AM ACCOUNTING RECRUITER Office Visit [facility] Diabetes Endocrine Care at [address] [place] [address] Marialuisa Tyson, SILK PRINTER Type 2 diabetes mellitus with hypoglycemia without [...] to 33.9 in adult 01/02/2024 11:18 AM ACCOUNTING RECRUITER - 01/02/2024 11:59 PM ACCOUNTING RECRUITER Hospital Encounter [facility] MOB 1 DIAG IMG [address] [place] [address] Aftercare following right knee joint replacement surgery Discharge Disposition: Discharge to home or self care 01/02/2024 11:30 AM [facility] Office Visit [facility] Orthopedics and Sports Medicine [address] [place] [phone] Yoan Edwards PA Aftercare following right knee joint replacement surgery (Primary Dx) 12/26/2023 2:15 PM CDT Therapy [facility] Bldg 1 OP Physical Therapy [address] [place] [address] Nora Tapia, [employer] OFFICER Aftercare following right knee joint replacement surgery (Primary Dx) 12/23/2023 10:00 AM CDT Therapy [facility] Bldg 1 OP Physical Therapy [address] [place] [address] Nora Tapia, [employer] OFFICER Aftercare following right knee joint replacement surgery (Primary Dx) 12/16/2023 9:15 AM CDT Therapy [facility] Bldg 1 OP Physical Therapy [address] [place] [address] Nora Tapia, [employer] OFFICER Aftercare following right knee joint replacement surgery (Primary Dx) 12/11/2023 2:15 PM CDT Therapy [facility] Bldg 1 OP Physical Therapy [address] [place] [address] Nora Tapia, [employer] OFFICER Aftercare following right knee joint replacement surgery (Primary Dx) 12/09/2023 10:00 AM CDT Therapy [facility] Bldg 1 OP Physical Therapy [address] [place] [address] Nora Tapia, [employer] OFFICER Aftercare following right knee joint replacement surgery (Primary Dx) 12/05/2023 1:30 PM [facility] Therapy [facility] Bldg 1 OP Physical Therapy [address] [place] [address] [place] [address] Nora Tapia, [employer] OFFICER Aftercare following right knee joint replacement surgery (Primary Dx); Primary osteoarthritis of right knee 12/02/2023 9:15 AM T Therapy [facility] Bldg 1 OP Physical Therapy [address] [place] [address] [place] [address] Nora Tapia, [employer] OFFICER Aftercare following right knee joint replacement surgery [...] 3 4 Active OneTouch Verio Flex meter [facility] [place] Active tirzepatide (Mounjaro) 10 mg/0.5 mL pen injectorIndicati ons:type 2 diabetes mellitus Inject 10 mg under the skin every 7 days E11.65 2 mL 11 4 Active busPIRone (BUSPAR) 7.5 mg tablet 4 Active OneTouch Delica Plus Lancet 33 gauge [facility] 4 Active blood-glucose sensor (Dexcom G7 Sensor) device CHANGE SENSOR EVERY 10 DAYS 10 each 3 4 Active Active Problems Problem Noted Date Diagnosed Date Arthritis of right knee 10/06/2023 Low vitamin D level 09/18/2022 dexcom 7 continous glucose monitor 07/15/2022 Assessment & Plan (01/21/2024 1:49 PM ACCOUNTING RECRUITER): Continuous glucose monitor (cgm) applied 01/08/24 to [...] noted Assessment & Plan (01/27/2023 11:02 AM ACCOUNTING RECRUITER): Continuous glucose monitor (cgm) applied 12/27/2022 to [...] 08/19/2020 Assessment & Plan (01/21/2024 1:46 PM ACCOUNTING RECRUITER): Assessment & Plan (11/10/2023 12:27 PM CDT): [...] hydrochlorothiazide Assessment & Plan (04/15/2022 12:38 PM ACCOUNTING RECRUITER): This is a chronic condition which is [...] ?goal <30 . ??Seeing Dr. Bhagat (supervisor jewelry department) Personally reviewed labs: (06/14)BUN-??16, creatinine- 0.94, GFR-69 Kidney function- abnormal B/P today-126/86??, currently Losartan 25 mg daily and HCTZ. ??At goal blood pressure is <140/90 Hyperlipidemia associated with type 2 diabetes magaly hernandez 08/19/2020 Assessment & Plan (01/21/2024 1:48 PM ACCOUNTING RECRUITER): This is a chronic condition which is [...] prescribed. Assessment & Plan (01/27/2023 11:00 AM ACCOUNTING RECRUITER): This is a chronic condition which is [...] 11/19/2019 Assessment & Plan (01/21/2024 1:52 PM ACCOUNTING RECRUITER): This is a chronic condition which is [...] 166. Assessment & Plan (01/27/2023 11:04 AM ACCOUNTING RECRUITER): This is a chronic condition which is [...] 170 Assessment & Plan (04/15/2022 12:44 PM ACCOUNTING RECRUITER): This is a chronic condition which is [...] . Assessment & Plan (02/11/2020 1:19 PM ACCOUNTING RECRUITER): This is a chronic condition which is [...] pump options, with demonstrations Referral made to [facility]. Contact with and (suspected) exposure to other [...] cardiovascular function study 09/04/2018 06/27/2022 Atherosclerosis of [place] of extremities with intermittent claudication, bilateral legs 09/04/2018 06/27/2022 Hypertension associated with type 2 diabetes nely litus 08/04/2018 Assessment & Plan (01/21/2024 1:48 PM ACCOUNTING RECRUITER): This is a chronic condition which is [...] prescribed. Assessment & Plan (01/27/2023 11:07 AM ACCOUNTING RECRUITER): This is a chronic condition which is [...] days. Assessment & Plan (02/11/2020 1:20 PM ACCOUNTING RECRUITER): This is a chronic condition Encouraged to stop smoking Assessment & Plan (11/19/2019 4:48 PM CDT): This is a chronic condition Encouraged to stop smoking Class 1 obesity due to exces s calories with serious comorbidity and body mass index (BMI) of 33.0 to 33.9 in adult 07/14/2018 06/27/2022 Assessment & Plan (01/21/2024 1:53 PM ACCOUNTING RECRUITER): >>ASSESSMENT AND PLAN FOR CLASS 1 OBESITY DUE TO EXCESS CALORIES WITH SERIOUS COMORBIDITY AND BODY MASS INDEX (BMI) OF 33.0 TO 33.9 IN ADULT WRITTEN ON 01/21/2024 1:49 PM BY JAH, MARIALUISA K., SILK PRINTER This is a chronic condition which continues [...] week Assessment & Plan (01/27/2023 11:03 AM ACCOUNTING RECRUITER): This is a chronic condition which is [...] FOR TYPE 2 DIABETES MELLITUS WITHOUT COMPLICATION ([facility]) ([facility]) WRITTEN ON 11/19/2022 8:16 AM BY FLORINDA URIAS MA Was seeing Dr. Givens, now switching to Dr. Mcginnis in [place]. Assessment & Plan (01/21/2024 1:48 PM ACCOUNTING RECRUITER): This is a chronic condition which is [...] LONG-TERM CURRENT USE OF INSULIN ([facility]) ([facility]) WRITTEN ON 11/19/2019 5:11 PM BY [...] LONG-TERM CURRENT USE OF INSULIN ([facility]) ([facility]) WRITTEN ON 02/11/2020 1:21 PM BY [...] eye exam. last dilated eye exam was [facility] [place] Monofilament foot exam completed, protective senses intact, [...] No history of macrovascular disease - [place], [place]. Dexcom downloaded for 02/05/20-02/11/20 (7 days) Average blood sugar 161 Highest reading 267 mg/dl Lowest reading 84mg/dl Standard deviation- 39 In target -69% (70-180) High range-31% (>180) Seriously high->2% 97.9% time CGM active. 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 Personally reviewed A1c today- 8.4%, increased from 7.5%. Not at goal less than 7% Personally reviewed blood sugar 178 At goal 80-180 Medication- Continue Medtronic Insulin pump, continueTrulicity 3mg weekly . Denies side effects. Monitor blood sugar continuously with DexCom 6 sensor. Encouraged annual eye exam. last dilated eye exam was [facility] [place] Monofilament foot exam completed, protective senses intact, [...] No history of macrovascular disease - [place]. ?? Dexcom downloaded for 04/29/20 to 05/12/20 [...] LONG-TERM CURRENT USE OF INSULIN ([facility]) ([facility]) WRITTEN ON 08/19/2020 8:04 AM BY MARIALUISA TYSON, SILK PRINTER This is a chronic condition which is [...] eye exam. ??last dilated eye exam was [facility] [place]? Monofilament foot exam completed, protective senses intact [...] No history of macrovascular disease - [place].? Dexcom downloaded for??08/05/20 to 08/18/20 This device [...] LONG-TERM CURRENT USE OF INSULIN ([facility]) ([facility]) WRITTEN ON 12/01/2020 2:13 PM BY MARIALUISA TYSON, SILK PRINTER This is a chronic condition which is??stable??hyperglycemia, not at goal. ?? Personally reviewed A1c today-??8.2% Not at ??goal less than 7% Medication- Continue Omnipod pump?? Continue Ozempic 1mg weekly . Monitor blood sugar??continuously with DexCom 6 sensor. ?? Encouraged annual eye exam. ??last dilated eye exam was [facility] [place]? Monofilament foot exam completed, protective senses intact Urine microalbumin/creatinine ratio -??865?Currently on Losartan 25 mg daily/ HCTZ, ?goal <30 . ??Seeing Dr. Bhagat Personally reviewed labs: (06/14)BUN-??16?, creatinine- 0.94?GFR- 69?Kidney function- abnormal B/P today-102/50??, currently Losartan 25 mg daily??and HCTZ. ??At goal blood pressure is <140/90 Personally reviewed LDL -47, currently on??atorvastatin 80mg daily.?? No history of macrovascular disease - [place].? Dexcom downloaded for??11/18/20 to 12/01/20 This device [...] LONG-TERM CURRENT USE OF INSULIN ([facility]) ([facility]) WRITTEN ON 06/01/2021 12:51 PM BY MARIALUISA TYSON, SILK PRINTER This is a chronic condition which is??stable??improving hyperglycemia, not at goal. ?? Personally reviewed A1c today-7.8% Not at ??goal less than 7% Medication- Continue Omnipod pump?? Continue Ozempic 1mg weekly . Monitor blood sugar??continuously with DexCom 6 sensor. ?? Encouraged annual eye exam. ??last dilated eye exam was [facility] [place]? Monofilament foot exam completed, protective senses intact Urine microalbumin/creatinine ratio -??865?Currently on Losartan 25 mg daily/ HCTZ, ?goal <30 . ??Seeing Dr. Bhagat Personally reviewed labs: BUN-??16, creatinine- 0.94?GFR- 69?Kidney function- abnormal B/P today-128/72, currently Losartan 25 mg daily??and HCTZ. ??At goal blood pressure is <140/90 Personally reviewed LDL -47, currently on??atorvastatin 80mg daily.?? No history of macrovascular disease - [place].? Dexcom downloaded for??05/19/21 to 06/01/21 This device [...] LONG-TERM CURRENT USE OF INSULIN ([facility]) ([facility]) WRITTEN ON 09/13/2021 6:44 PM BY MARIALUISA TYSON, SILK PRINTER This is a chronic condition which is??slightly??improving hyperglycemia, not at goal. ?? Personally reviewed A1c today-7.8% Not at ??goal less than 7% Medication- Continue Omnipod pump?? Increase Ozempic 2mg weekly- to promote weight loss Monitor blood sugar??continuously with DexCom 6 sensor. ?? Encouraged annual eye exam. ??last dilated eye exam was [facility] [place]? Monofilament foot exam completed, protective senses intact [...] No history of macrovascular disease - [place].? Dexcom downloaded for??08/31/21 to 09/13/21 This device was placed for monitor and treatment of blood sugar. Interpretation of data- improved Hyperglycemia with weight loss. In target 76% of time. 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 Continue with Dr. Bhgaat for nephrology Urine microalbumin/creatinine ratio - not [...] eye exam. last dilated eye exam was [facility] Monofilament foot exam completed. protective senses [...] HYPERGLYCEMIA, WITH LONG-TERM CURRENT USE OF INSULIN ([facility]) WRITTEN ON 04/15/2022 12:41 PM BY [...] LONG-TERM CURRENT USE OF INSULIN ([facility]) (HCC) WRITTEN ON 04/15/2022 12:42 PM BY [...] Problem Noted Date Diagnosed Date Resolved Date Kenguruipod dash Insulin pump in place 10/29/2022 10/29/2022 [...] continuously with DexCom 6 Referrals made to [facility] and [facility] regarding insulin pump therapy dilated eye exam appt is made for Monofilament foot exam completed, protective senses intact Urine microalbumin/creatinine - abnormal on lisinopril Kidney function eGRF- 55, BUN- 21, creatinine- 1.14 BP today- 138/74 , currently on lisinopril 10 mg daily LDL - 47, currently on Zetia history of macrovascular disease - [place], [place]. Referral to Dr. Bhagat Assessment & Plan [...] materials from doctor or pharmacy Never 10/22/2023 [facility] Utilities Answer Date Recorded In the past 12 months has th e [employer], gas, oil, or water [employer] threatened to shut off services in your [...] often do you attend chur ch or lutheran services? 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 Not on file Not on file Not on file Last Filed Vital Signs Vital Sign Reading Time Taken Comments Blood Pressure 97/57 02/04/2024 9:21 AM ACCOUNTING RECRUITER Pulse 79 02/04/2024 9:21 AM ACCOUNTING RECRUITER Temperature 36.2 ??C (97.1 ??F) 10/14/2023 11:22 AM C DT Respiratory Rate 18 02/04/2024 9:21 AM ACCOUNTING RECRUITER Oxygen Saturation 97% 02/04/2024 9:21 AM ACCOUNTING RECRUITER Inhaled Oxygen Concentration - - Weight 92.1 kg (203 lb) 02/04/2024 9:21 AM ACCOUNTING RECRUITER Height 165 cm (5' 4.96 ) 02/04/2024 9:21 AM ACCOUNTING RECRUITER Body Mass Index 33.82 02/04/2024 9:21 AM ACCOUNTING RECRUITER Plan of Treatment Not on file Medical Devices Implanted Type Area Outside Machinist Helper Device Identifier Shelf Expiration Date Model / Serial / Lot [employer]uy [employer] Attune Cruciate Retain Cementless Knee Right 5 Narrow Component [id number] - [id number] Implanted:Qty: 1 on 10/06/2023 by Regi Khan DO at [facility] Right: Knee [employer] [id number] 06/23/2032 [id number] / / [id number] [employer] Attune 35mm Cemented Medialize Knee Dome Patellar Aox Sterile [id number] - [id number] Implanted:Qty: 1 on 10/06/2023 by Regi Khan DO at [facility] Right: Knee [employer] [id number] 08/24/2031 [id number] / / [id number] [employer] Attune Fb Tib Base Sz 5 Por [id number] - [id number] Implanted:Qty: 1 on 10/06/2023 by Regi Khan DO at [facility] Right: Knee [employer] [id number] 03/26/2033 [id number] / / [id number] [employer] Cmw 2 Fast Set Cement 20gm Bone Sterile 3322-020 - [id number] Implanted:Qty: 1 on 10/06/2023 by Regi Khan DO at [facility] Right: Knee [employer] [id number] 10/23/2025 3322-020 / / [id number] [employer] Insert Tibial Knee Fixed Rm Posterior Stabilized Attune 6mm Size 5 Polyethylene [id number] - [id number] Implanted:Qty: 1 on 10/06/2023 by Regi Khan DO at [facility] Right: Knee [employer] [id number] 01/23/2030 [id number] / / [id number] Procedures Procedure Name Priority Date/Time Associated Diagnosis Comments POCT HEMOGLOBIN A1C Routine 01/21/2024 10:37 AM ACCOUNTING RECRUITER Type 2 diabetes mellitus with hypoglycemia without coma, with long-term current use of insulin (HCC) POCT GLUCOSE Routine 01/21/2024 10:35 AM ACCOUNTING RECRUITER Type 2 diabetes mellitus with hypoglycemia without coma, with long-term current use of insulin (HCC) XR KNEE RIGHT 3 VIEWS Schedule Routine, Read Routine (OP Routine) 01/02/2024 12:46 PM ACCOUNTING RECRUITER Aftercare following right knee joint replacement surgery [...] * POCT hemoglobin A1c (01/21/2024 10:37 AM ACCOUNTING RECRUITER) Hemoglobin A1C, POC 6.1 4.0 - 5.6 % Blood 01/21/2024 10:3 7 AM ACCOUNTING RECRUITER us Marialuisa Tyson NP POINT OF CARE TEST ORDERABLES F inal Result * POCT glucose (01/21/2024 10:35 AM ACCOUNTING RECRUITER) Glucose Blood, POC 153 mg/dL Blood 01/21/2024 10:3 5 AM ACCOUNTING RECRUITER us Marialuisa Tyson NP POINT OF CARE TEST ORDERABLES F inal Result * XR Knee Right 3 Views (01/02/2024 12:46 PM ACCOUNTING RECRUITER) Anatomical Region Laterality Modality Lower Extremities, Knee Right Computed Radiography 01/04/2024 7:55 AM ACCOUNTING RECRUITER Narrative 01/04/2024 8:03 AM ACCOUNTING RECRUITER EXAM DESCRIPTION: XR KNEE RIGHT 3 VIEWS [...] AM T: ??01/04/2024 8:03 AM Report ID: [id number] Reading Location: ??[id number] Procedure Note Lamont Hidalgo MD - 01/04/2024 [...] Lamont Hidalgo M.D. MF: MARIPOSA Report ID: [id number] Reading Location: [place] [address] us Yoan GIRARD IMG XR PROCEDURES Final Result * (ABNORMAL) Albumin Creatinine Ratio, Urine (11/24/2023 11:56 AM CDT) Albumin Ur 199.5 mg/L Comment: Interpretive Data No reference range established. Current interpretive data was last revised 2018. Testing performed by: [address] [address] Creatinine Ur 107.0 mg/dL OLIVIA Comment: Interpretive Data No reference range established. Current interpretive data was last revised 2018. Testing performed by: [address] [address] Albumin Creatinine Ratio, Ur 186(H) 1 - 29 mg/g OLIVIA Comment:Testing performed by : [address] [address] Urine 11/24/2023 11:5 6 AM CDT 11/24/2023 5:06 PM CDT Marialuisa Tyson NP LAB URINE ORDERABLES Final Resu lt [facility] [address] [facility] Department [place] [address] * (ABNORMAL) Lipid panel (11/24/2023 11:56 AM CDT) [facility] Cholesterol 117 30 - 199 mg/dL [...] last revised on 2017. Testing performed by: [address] [address] Triglycerides 146 <=149 mg/dL OLIVIA [place] Comment: [...] last revised on 2017. Testing performed by: [address] [address] HDL 38(L) >=40 mg/dL OLIVIA Comment: Interpretive [...] last revised on 2017. Testing performed by: [address] [address] LDL, calculated 54 <=129 mg/dL OLIVIA Comment: [...] last revised on 2023. Testing performed by: [address] [address] Non-HDL Cholesterol 79 mg/dL OLIVIA Comment: Interpretive [...] last revised on 2017. Testing performed by: [facility], [address] [place] [address]., [address] Chol/HDL ratio 3 OLIVIA Comment:Testing performed by : [address] [address] Blood 11/24/2023 11:5 6 AM CDT 11/24/2023 12:17 PM CDT Narrative OLIVIA - 11/24/2023 1:25 PM CDT These lab test should be done fasting. This means do not eat or drink for at least 12 hours prior to getting your blood drawn. Has the patient been fasting for 8 hours or more?->Yes us Marialuisa Tyson NP LAB BLOOD ORDERABLES Final Resu lt [facility] [address] [facility] Department [place] [address] * eGFR (10/07/2023 2:52 AM CDT) [facility] eGFR 64 >=60 mL/min/1. 73 m2 [...] GIRARD LAB BLOOD ORDERABLES Final Resul t [id number] [address] [facility] Department [place] [address] * (ABNORMAL) Diabetic Eye Exam (02/09/2021) Historical Provider HEALTH MAINTENANCE Final Result * DIABETES FOOT EXAM (04/03/2017) Pathologist [facility] Diabetic Foot Exam Unknown Historical Provider HEALTH MAINTENANCE Final Result from Last 3 Months or Most Recently Relevant to Health Maintenance Insurance [facility] Advance Directives For more information, please contact: [phone] * Full Code (Latest Code Status on File) Date Activated Date Inactivated Comments 10/06/2023 11:23 AM 10/07/2023 11:04 PM Care Teams Pin Drafting Machine Operator Relationship Specialty Start Date End Date Eron Holliday NP [address] [place] [address] PCP - General Pain Management 07/15/22 Marialuisa Tyson NP [address] [facility] [place] [address] Nurse Practitioner Endocrinology Diabetes & Metabolism 09/22/23 Leobardo Bhagat MD [address] [place] [address] DR THAKUR [address] [place] [address] Consulting Physician Nephrology 09/22/23 [place] [id number] [address] Consulting Physician Cardiovascular Disease 09/22/23 Lamar Slater NP [address] [address] THAKUR [address] [place] [address] Nurse Practitioner Orthopedic Surgery 02/04/24 Maycol Gatica DO [address] THAKUR [address] [place] [address] Consulting Physician Orthopedic Surgery 02/04/24
--- OUTSIDE RECORDS SUMMARY | 2024-03-03 17:34 | XMS_ITS | Encounter Summary ---
Author Organization [facility] Healthcare Address [address] [place] [address] Care Team Providers Care Steel Fitter Name Role Phone Eron Acevedo NP Primary Care Provider [phone] Marialuisa Daniel NP Unavailable [phone] Leobardo Bhagat MD Unavailable [phone] Florin Dixon MD Unavailable Reason for Visit * Reason Comments PT Treatment * Physical Therapy (Routine) - Authorized Specialty Diagnoses / Procedures Referred By Claudette smith Referred To Contact Physical Therapy Diagnoses Aftercare following right knee joint replacement surgery Yoan Edwards PA [address] [place] [address] [address] [place] [address] Phone: tel: fax: Regi Khan DO [address] [place] [address] DR THAKUR [address] [place] [address] Phone: tel: fax: Referral ID Status Reason Start Date Expiration Date Visits Requested Visits Authorized [id number] Authorized Specialty Services Required 10/21/2023 10/23/2024 36 18 Encounter Details Date Type Department Care Team (Late st Contact Info) Description 11/14/2023 9:15 AM CDT Therapy [facility] Medical Office Bldg 1 OP Physical Therapy [address] [place] [address] Akilah Dennis, WOOD MODEL MAKER Aftercare following right knee joint replacement [...] on file Legal Sex Female 8:53 AM CELLOPHANE BAG MACHINE OPERATOR Gender Identity Female 12/26/2023 10:11 PM CDT Sexual Orientation Straight 12/26/2023 10 :11 PM CDT 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 Akilah Dennis PTA [facility] Services ATTENTION PHYSICIAN If you are [...] Primary documented in this encounter Care Teams Steel Fitter Relationship Specialty Start Date End Date Eron Acevedo NP [address] [place] [address] PCP - General Pain Management 07/15/22 Marialuisa Daniel NP [address] [place] [address] Nurse Practitioner Endocrinology Diabetes & Metabolism 09/22/23 Leobardo Bhagat MD [address] [place] [address] Consulting Physician Nephrology 09/22/23 [place] [id number] [address] Consulting Physician Cardiovascular Disease 09/22/23 documented as of this encounter
--- OUTSIDE RECORDS SUMMARY | 2024-03-03 17:34 | XMS_ITS | Encounter Summary ---
Author Organization [facility] Healthcare Address [address] [place] [address] Care Team Providers Care Compensation Associate Name Role Phone Eron Holliday NP Primary Care Provider [phone] Marialuisa Daniel NP Unavailable [phone] Leobardo Bhagat MD Unavailable [phone] Florin Dixon MD Unavailable Reason for Referral * Diagnostic Imaging (Routine) - Closed Specialty Diagnoses / Procedures Referred By Claudette smith Referred To Contact Diagnoses Aftercare following right knee joint replacement surgery Procedures XR Knee Right 3 Views Yoan Edwards PA [address] [address] Phone: tel: fax: [address] [phone] Referral ID Status Reason Start Date Expiration Date Visits Re quested Visits Authorized [id number] Closed 01/01/2024 01/30/2025 1 1 TRUCTION CREW MEMBER Reason for Visit * Reason Comments Post-op Encounter Details Date Type Department Care Team (Late st Contact Info) Description 01/02/2024 11:30 AM CONSTRUCTION CREW MEMBER Office Visit [facility] Medical Group Orthopedics and Sports Medicine [address] [place] [phone] Yoan Edwards PA [address] [facility] [place] [address] Aftercare following right knee joint replacement surgery [...] from doctor or pharmacy Never 10/22/2023 [facility] Utilities Answer Date Recorded In the past 12 months has e [employer], gas, oil, or water [employer] threatened to shut off services in your [...] often do you attend chur ch or latter day services? 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 patient is currently taking aspirin and Plavix as she does have a stent placed in the right lower extremity. Otherwise she is doing very well and is very pleased with the surgical outcome thus far. She looks forward to traveling to [place] this weekend as her daughter is having [...] Has with the patient continue to take vsla-bfr-dllkmbo Tylenol as needed. She does endorse some [...] questions at this time. ERA Figueredo 01/02/2024 TRUCTION CREW MEMBER documented in this encounter Plan of Treatment Not on file documented as of this encounter Results * XR Knee Right 3 Views (01/02/2024 12:46 PM CONSTRUCTION CREW MEMBER) Anatomical Region Laterality Modality Lower Extremities, Knee Right Computed Radiography 01/04/2024 7:55 AM CONSTRUCTION CREW MEMBER Narrative 01/04/2024 8:03 AM CONSTRUCTION CREW MEMBER EXAM DESCRIPTION: XR KNEE RIGHT 3 VIEWS [...] AM T: ??01/04/2024 8:03 AM Report ID: [id number] Reading Location: ??[id number] Procedure Note Lamont Hidalgo MD - 01/04/2024 [...] Lamont Hidalgo M.D. MF: [id number] Report ID: [id number] Reading Location: [id number] Yoan Edwards HI IM XR PROCEDURES Final Result documented in this encounter Visit Diagnoses Diagnosis Aftercare following right knee joint replacement surgery- Primary Aftercare following right knee joint replacement surgery documented in this encounter Care Teams Compensation Associate Relationship Specialty Start Date End Date Eron Holliday NP [address] [facility] [place] [place] [address] PCP - General Pain Management 07/15/22 Marialuisa Daniel NP [address] [facility] [place] [place] [address] Nurse Practitioner Endocrinology Diabetes & Metabolism 09/22/23 Leobardo Bhagat MD [address] [place] [address] [address] Consulting Physician Nephrology 09/22/23 [place] [id number] [address] Consulting Physician Cardiovascular Disease 09/22/23 documented as of this encounter
--- OUTSIDE RECORDS SUMMARY | 2024-03-03 17:35 | XMS_ITS | Encounter Summary ---
Author Organization [facility] Healthcare Address [address] [place] [address] Care Team Providers Care Oil Drilling Engineer Name Role Phone Eron Holliday NP Primary Care Provider [phone] Marialuisa Daniel NP Unavailable [phone] Leobardo Bhagat MD Unavailable [phone] Florin Dixon MD Unavailable Reason for Referral * Physical Therapy (Routine) - Authorized Specialty Diagnoses / Procedures Referred By Claudette smith Referred To Contact Physical Therapy Diagnoses Aftercare following right knee joint replacement surgery Yoan Edwards PA [facility] DR THAKUR [address] [place] [address] Phone: tel: fax: Regi aBtres DO [address] [place] [address] DR THAK[address] [place] [address] Phone: tel: fax: Referral ID Status Reason Start Date Expiration Date Visits Requested Visits Authorized [id number] Authorized Specialty Services Required 10/21/2023 10/23/2024 36 18 Question Answer PTRFR PT Evaluate and Treat Therapy options discussed with patient? Yes Location provided for therapy services is: Patient requested/Patient preferred Please select the performing region: [facility] [[id number]] To provider: REGI BATRES [[id number]] # of visits: 24 Comments 2 to 3 times a week for 12 weeks Strengthening, range of motion and modalities as needed for right knee * Diagnostic Imaging (Routine) - Closed Specialty Diagnoses / Procedures Referred By Claudette smith Referred To Contact Diagnoses Aftercare following right knee joint replacement surgery Procedures XR Knee Right 3 Views Yoan Edwards PA [address] [place] [address] [address] [place] [address] Phone: tel: fax: [address] [phone] Referral ID Status Reason Start Date Expiration Date Visits Re quested Visits Authorized [id number] Closed 10/15/2023 11/13/2024 1 1 Reason for Visit * Reason Comments Post-op Encounter Details Date Type Department Care Team (Late st Contact Info) Description 10/21/2023 8:30 AM CDT Office Visit [facility] Medical Group Orthopedics and Sports Medicine [address] [place] [phone] Yoan Edwards PA [address] [place] [address] [address] Aftercare following right knee joint [...] materials from doctor or pharmacy Never 10/22/2023 [facility] Utilities Answer Date Recorded In the past 12 months has th e [employer], gas, oil, or water company threatened to [...] on file Legal Sex Female 8:53 AM HARDWARE TRAINER Gender Identity Female 12/26/2023 10:11 PM CDT [...] utilizing oxycodone less and is transitioning to nzwd-kul-hbbsagz Tylenol at this time. Patient has been [...] formal physical therapy at her preference in [place]. Patient is encouraged to continue weaning from oxycodone use and transitioning to gqgj-tvo-qhzpopk Tylenol p.r.n.. And Steri-Strips were subsequently applied. [...] D: ??10/22/2023 9:37 AM T: Report ID: [id number] Reading Location: ??[id number] Procedure Note Lamont Hidalgo MD - 10/22/2023 [...] by Lamont Hidalgo M.D. T: Report ID: [id number] Reading Location: [place] [address] Yoan Edwards ERA IMG XR PROCEDURES Final Result documented in this encounter Visit Diagnoses Diagnosis Aftercare following right knee joint replacement surgery- Primary Aftercare following right knee joint replacement surgery documented in this encounter Care Teams Oil Drilling Engineer Relationship Specialty Start Date End Date Eron Holliday NP [address] [facility] [place] [address] PCP - General Pain Management 07/15/22 Marialuisa Daniel NP [address] [facility] [place] [address] Nurse Practitioner Endocrinology Diabetes & Metabolism 09/22/23 Leobardo Bhagat MD [address] [place] [address] [address] Consulting Physician Nephrology 09/22/23 [place] [address] [address] Consulting Physician Cardiovascular Disease 09/22/23 documented as of this encounter
--- OUTSIDE RECORDS SUMMARY | 2024-03-03 17:35 | XMS_ITS | Encounter Summary ---
Author Organization [facility] Healthcare Address [address] [place] [address] Care Team Providers Care Peanut Butter Maker Name Role Phone Eron Holliday NP Primary Care Provider [phone] Marialuisa Daniel NP Unavailable [phone] Leobardo Bhagat MD Unavailable [phone] Florin Dixon MD Unavailable Reason for Referral * Consultation (Routine) - Closed Specialty Diagnoses / Procedures Referred By Claudette smith Referred To Contact Physical Therapy Diagnoses Aftercare following right knee joint replacement surgery Regi Khan DO [address] [facility] [address] [address] Phone: tel: fax: [address] [phone] Referral ID Status Reason Start Date Expiration Date V isits Requested Visits Authorized [id number] Closed Evaluate and Treat 10/17/2023 11/15/2024 18 18 Question Answer PTRFR PT Evaluate and Treat Reason for Visit Post RTKA (09/26/2023) Therapy options discussed with patient? Yes Location provided for therapy services is: Patient requested/Patient preferred Please select the performing region: [facility] [185] # of visits: 18 Comments 2-3 visits, per week, for 6 weeks. Encounter Details Date Type Department Care Team (Late st Contact Info) Description 10/17/[address] [facility] Medical Group Orthopedics and Sports Medicine [address] [place] [phone] Regi Khan DO [address] [facility] [place] [address] Aftercare following right knee joint [...] from doctor or pharmacy Never 10/12/2023 [facility] Utilities Answer Date [...] often do you attend chur ch or yazdanism services? 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
--- OUTSIDE RECORDS SUMMARY | 2024-03-03 17:35 | XMS_ITS | Encounter Summary ---
Author Organization [facility] Healthcare Address [address] [place] [address] Care Team Providers Care Import Export Agent Name Role Phone Eron Holliday NP Primary Care Provider [phone] Marialuisa Daniel NP Unavailable [phone] Leobardo Bhagat MD Unavailable [phone] Florin Dixon MD Unavailable Reason for Referral * Home Health (Routine) - Pending Review Specialty Diagnoses / Procedures Referred By Claudette smith Referred To Contact Home Health Services Diagnoses Aftercare following right knee joint replacement surgery Regi Khan DO [address] [facility] [address] [address] Phone: tel: fax: [facility] Home Care Services [facility] [address] [place] [address] Referral ID Status Reason Start Date Expiration Date Visits Requested Visits Authorized [id number] Pending Review Specialty Services Required 10/07/2023 11/05/2024 1 1 Question Answer [id number] Home Health Primary disciplines requested: Assisted, Physical Therapy Home Health Services Therapy to [...] Expiration Date Visits Re quested Visits Authorized [id number] 1 1 Encounter Details Date Type Department Care Team (Latest Contact Info) Description 10/06/2023 5:20 AM CDT - 10/07/2023 6:10 PM CDT Hospital Encounter [address] [address] Regi Khan DO [address] [place] [address] Primary osteoarthritis of right knee [M17.11] (Primary Dx); Aftercare following right knee joint replacement surgery Discharge Disposition: Discharge to home or self care Social History Tobacco Use Types Packs/Day Years Used Date Smoking Tobacco: Former Cigarettes Q uit: 03/20/2020 Smokeless Tobacco: Never [facility] [...] any time in the past 12 m [facility], were you homeless or living [...] on file Legal Sex Female 8:53 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 female who presented to [facility] on 10/06/2023. Sandy Lopez underwent Procedure(s) (LRB): [...] daily Commonly known as: PLAVIX Dexcom G6 Water Maintenance Supervisor [facility] USE TO TEST BLOOD SUGAR DIRECTED Generic [...] Service Line: Home Health Primary disciplines requested: Assisted Physical Therapy Home Health Services: Therapy to [...] healed and surgeon gives clearance. Walker The ebwe-md-qstn evaluation was performed on: 10/07/2023 Primary Care Physician at Discharge: Erno Holliday NP [phone] Follow up: [facility] [address] [place] [address] [address] [facility] [address] Future Appointments Date Time Provider Department Center 10/10/2023 11:00 AM Marialuisa Daniel NP ENDO GFY Specialty 10/21/2023 8:30 AM Yoan Edwards PA OSM OS 340 MH Specialty 10/22/2023 10:00 AM Felipe Cox MD [facility] NEURO [facility] ORT NEUR 11/20/2023 2:45 PM Regi Khan DO OSM OS 110 MH Specialty Contact Information for Follow-ups [facility] Orthopedics and Sports Medicine Specialty: Orthopedic Surgery [address] [place] [address] [address] [facility] [address] Next Steps: Follow up Questions: Service Line: Home Health Primary disciplines requested: Assisted Physical Therapy Home Health Services: Therapy to [...] Care Everywhere. * Knee Replacement (Discharge Care) (Maltese) documented in this encounter Medications at Time [...] unit) tablet 3 11/20/19 24 Dexcom G6 Water Maintenance Supervisor miscIndications:Typ e 2 diabetes mellitus with hyperglycemia, [...] 1102 Patient Spiritual Assessment Spirituality Assessed Yes Yarsani Affiliation Orthodoxy Active in [facility] Yes Place of [place] [facility] Spiritual Needs Prayer Clinical Encounter Type Visited With Patient Response Type Routine visit Routine Visit Introduction Reason for visit Support Interventions Interventions Offer spiritual/tenriism support;Prayer * Hudson Campbell PTA - 10/07/2023 [...] Time 1015 Time Calculation (min) 42 min Casing Crew Services Utilized: NO Educated the patient to [...] End Date End Date PT LTG - [facility] 3 10/06/23 10/20/23 -- Goal Details: Pt will ambulate 150 feet with wheeled walker, independently Progressing Goal Start Date Expected End Date End Date PT LTG - [facility] 4 10/06/23 10/20/23 -- Goal Details: Pt will ascend/descend 5 stairs with rail, independently Progressing Goal Start Date Expected End Date [facility] 10[facility]23 10/20/23 -- Goal Details: Pt [...] 1. VA ARTHRP KNE CONDYLE&PLATU MEDIAL&LAT COMPARTMENTS [04970] (RIGHT TOTAL KNEE ARTHROPLASTY) 1 Day Post-Op [...] 10/07/23 7:47 AM * Gomez Angelicashmuel Reyes, ASSISTANT UNIT FORESTER - 10/06/2023 3:21 PM CDT Physical Therapy [...] Time 1544 Time Calculation (min) 23 min Casing Crew Services Utilized: NO Educated the patient to [...] End Date End Date PT LTG - [facility] 5 10/06/23 10/20/23 -- Goal Details: Pt [...] Equipment-Currently Using None Prior Function Level of [place] Independent with ADLs;Independent functional transfers;Independent with ambulation;Independent [...] posted at bedside and within medical record. Casing Crew Services Utilized: NO Patient is identified by name and date of on this visit. Cotx with ADA Swenson for safety of patient and staff due to current diagnosis, medical status, and unknown level of functional performance prior to evaluation. * Messi Castro PT - 10/06/2023 1:39 PM CDT Physical Therapy 10/06/23 5048 General Chart Reviewed Yes Session Type Evaluation [...] of the house. 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 Fall within the last 6 months [...] (from Physical Therapy) Active Problems Problem: PT [facility] Start Date: 10/06/23 Goal Start Date Expected End Date End Date PT [facility] 1 10/06/23 10/20/23 -- Goal Details: Pt will transfer supine<>sit independently Goal Start Date Expected End Date End Date PT [facility] - [facility] 2 10/06/23 10/20/23 -- Goal Details: Pt will transfer sit<>stand with wheeled walker, independently Goal Start Date Expected End Date End Date PT [facility] - [facility] 3 10/06/23 10/20/23 -- Goal Details: Pt will ambulate 150 feet with wheeled walker, independently Goal Start Date Expected End Date End Date PT [facility] 4 10/06/23 10/20/23 -- Goal Details: Pt will ascend/descend 5 stairs with rail, independently Goal Start Date Expected End Date End Date PT LTG - [facility] 5 10/06/23 10/20/23 -- Goal Details: Pt will perform RLE TKR exercises in supine/sitting x 10 reps each, independently Casing Crew Services Utilized: NO Educated the patient to [...] disc disease), cervical, Depression, Diabetes ([facility]), Dizziness, Foraminal stenosis of cervical region, GERD (gastroesophageal reflux disease), High blood pressure, Type 1 diabetes mellitus ([facility]) (08/04/2018), Uncontrolled type 2 diabetes mellitus with hyperglycemia ([facility]) (03/14/2017), andUncontrolled type 2 diabetes mellitus with hyperglycemia, with long-term current use of insulin ([facility]) (04/03/2017). PAST SURGICAL HISTORY She has a past surgical history that includes section; Knee arthroscopy; Carpal tunnel release; Elbow surgery; and Tonsillectomy. MEDICATIONS She has a current medication list which includes the following prescription(s): aspirin, pediatric multivitamin-iron, ozempic, alcohol swabs, aspirin, atorvastatin, blood sugar diagnostic, blood-glucose meter, dexcom g7 sensor, dexcom g6 transmitter, buspirone, cetirizine, cholecalciferol, citalopram, clopidogrel, cyclobenzaprine, dexcom g6 contact lens lathe operator, dexcom g6 transmitter, dexcom g7 sensor, [...] physical therapy Regi Khan DO Orthopedic Surgeon [facility] Medical Group 10/06/2023 7:23 AM documented in this encounter Consult Notes * Maureen Hardy RN - 10/06/2023 3:52 PM CDTAssociated Order(s): IP CONSULT TO VP LAB Sandy has and insulin pump. Pump orders [...] LCSW - 10/07/2023 12:04 PM CDT 10/07/23 0227 Discharge Summary Discharge Disposition Home health care [facility] Contact Number [phone] Discharge Records Chart Copied Recommended Discharge Level of Long-Term health care Actual Discharge Level of Long-Term health care Does Actual Level of Care Match Care Team Recommendation? Yes Post Acute Care Plan Home Care Services Yes Type of Home Care Services Home therapies;Nurse visit Home Care Services Name and Phone Number [facility] [phone] OP Services N/A DME N/A Post Acute [...] Coverage Payor Plan Insurance Group Employer/Plan Group [facility] Payor Plan Address Payor Plan Phone Number Payor Plan Fax Number Effective Dates ATTN: CLAIMS DEPT [phone] 02/24/2023 - None Entered [address] [facility] [address] Subscriber Name Subscriber Date Member ID SANDY LOPEZ 1965 [id number] Pharmacy: [facility] [place], [place] - [address] [facility] [address] Primary Care Provider: Eron Holliday NP Prior [...] or living in a senior care (including now)?: No (10/07/231199) Utilities: No, (10/07/231158) Social Connections: In a typical week, how many times do you talk on the phone with family, friends, or neighbors?: More than three times a week How often do you get together with friends or relatives?: More than three times a week How often do you attend adventist or tenriism services?: Never Do you belong to any clubs or organizations such as adventist groups, unions, fraternal [...] 1200) Potential discharge needs include: Home Health: shelter, Physical therapy (10/07/231157) Behavioral Health Services: Behavioral Health Services: No (10/07/231157) Anticipated Level of Care: Anticipated discharge level of care: Home health care Pt/Family agrees with Anticipated Level of Care: Yes (10/07/23 1158) Patient expects to be Discharged to: Home health care, (10/07/23 1158) Additional Information: Remediation Technician met with patient at bedside to discuss discharge plans. Patient stated that she plans to return home at discharge with support from her father. Patient stated that she has a wheeled walker. Patient confirmed that a CPM had been ordered by Dr. Khan's office and delivered to the home through [email or web address] ( ). BURIAL VAULT SETTER explained home health services, provided list of in-network agencies, and asked if patient hada preference to which home health company was arranged. Patient stated that she doesn't have a preference. Referrals sent via [facility]. HH packet on chart. Discharge Home With: [facility] Home Health [address] [place] [address] [address] has accepted patient with start of care on 10/12/23. Patient is aware of dc plans and agency accepted. HH Orders have been completed and sent to accepting Agency. Remediation Technician to remain available to assist as needed. [...] Collaboration with Patient, Provider, Direct Care Nurse, Benefits Officer, and other members of theHealth Care Team to assure needed interventions completed. 2. Return patient to optimal level of self-care post discharge. 3. Shank Cutter will follow for Discharge Planning - interventions as needed 4. Anticipated level of care at discharge 5. Planned Discharge Disposition Isabela Segovia LCSW 10/07/2023 12:03 PM * Plan of Care - Aicha Sierra RN - 10/07/2023 10:56 AM CDT Home health referral reviewed; [facility] PAST DUE ACCOUNTS CLERK will accept with projected SOC date 10/12/23 for SN PT. Isabela Segovia LCSW notified. Aicha Sierra RN-BSN Granite Polisher Apprentice [facility] HomeCare [phone] * [facility] Note - Isabela Segovia LCSW [...] Mobility Equipment-Currently Using None - Level of [place] Independent with ADLs;Independent functional transfers;Independent with ambulation;Independent [...] 72 Hours PT Evaluation Row Name 10/06/23 5712 Chart Reviewed Yes -AZ Session Type Evaluation [...] floor of the house. 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 -AZ Fall within the last 6 [...] safety precautions -AZ Compliance/Behavior Easy to engage -CA Bed Mobility From 1 Supine -AZ Bed Mobility Type 1 To and from -AZ Bed Mobility to 1 Edge of bed -CA Level of Assistance 1 Contact Guard Assist [...] appropriate gait sequencing;Improve upright posture;Increase step length -CA Gait Deviations 1 Lora - decreased;Step length - decreased;Weight bearing through UE???s - increased -AZ RLE Assessment X -AZ RLE Overall AROM Deficits;Due to precautions;Due to pain -CA LLE Assessment WFL -CA Safe Environment End of Therapy Session Patient left supine in bed;Bed alarm in place and activated;Sequential compressive devices on legs and activated;Call light within reach;Overbed table within reach;Bed in lowest position with wheels locked -AZ Prognosis Good -CA Problem List Gait deviations;Decreased strength;Decreased range of motion;Decreased mobility;Orthopedic restrictions;Pain -AZ Plan Plan of care initiated;If this is the last note, consider this the discharge summary -CA PT Recommendation/Plan Home with family;Home Health PT -CA PT Frequency during current admission Twice a day;Other (comment) 2x/day Friday through Friday, 1-2x/day Friday and Friday -CA Treatment/Interventions during current admission Balance Training;Bed mobility;Endurance training;Functional activity;Functional transfer training;Gait training;Parent/caregiver training and education;Range of motion;Stair training;Strengthening;Therapeutic activity;Therapeutic exercise;Transfer training -CA PT Equipment Recommended None pt has wheeled walker and cane at home -CA PT Evaluation Complete Yes -AZ Start Time 1339 -AZ Stop Time 1355 -CA Time Calculation (min) 16 min -CA User Schuler (r) = Recorded By, (t) [...] By Initials Name Effective Dates Angelica Gomez, ASSISTANT UNIT FORESTER 06/29/20 - PT Notes 10/06/2023 3:53 PM Progress Notes signed by Messi aCstro, PT * [facility] Note - Isabela Segovia [...] LRC Intake/Output 10/06/23 0700 - 10/07/23 0659 [id number] 9403-0135 6313-8272 Total Intake (ml) 1700 516.7 1050 3266.7 Output (ml) 150 1980 055 6778 Net (ml) 1550 -533.3 200 1216.7 Last [...] mL in sterile water (premix) 2,000 mg [[id number]] Ordering Provider: Regi Khan DO Status: Completed [...] Bateman CRNA acetaminophen (TYLENOL) tablet 975 mg [[id number]] Ordering Provider: Almita Ramirez NP Status: Completed (Past End Date/Time) Ordered On: 10/06/23526 Starts/Ends: 10/06/23 0600 - 10/06/23 0558 Ordered Dose (Remaining/Total): 975 mg (0/1) Route: oral Frequency: Once Ordered Rate/Order Duration: -- / -- Timestamps Action Dose Route Other Information 10/06/23 0558 Given 975 mg oral Performed by: Elvira Reis RN Scanned Package: 97940-255-79, 19477-676-69, 63216-037-61 Lactated Ringer's (LR) infusion [[id number]] Ordering Provider: Olayinka Zayas MD Status: Verified Ordered On: 10/06/23922 Start: 10/06/23 1000 Ordered Dose (Remaining/Total): 125 mL/hr (--/--) Route: intravenous Frequency: Continuous Ordered Rate/Order Duration: 125 mL/hr / -- Line Med Link Info Comment Peripheral IV 10/06/23 20 G Anterior;Right Forearm 10/06/23 112 by Tania Merritt RN -- (No admins scheduled or recorded for this medication) busPIRone (BUSPAR) tablet 5 mg [[id number]] Ordering Provider: Regi Khan DO Status: Dispensed Ordered On: 10/06/231122 Start: 10/06/23 2100 Ordered Dose (Remaining/Total): 5 mg (--/--) Route: oral Frequency: 2 times daily Ordered Rate/Order Duration: -- / -- Timestamps Action Dose Route Other Information 10/07/23 0857 Given 5 mg oral Performed by: Tania Merritt RN Scanned Package: 98884-730-63 clopidogreL (PLAVIX) tablet 75 mg [[id number]] Ordering Provider: Regi Khan DO Status: Dispensed Ordered On: 10/06/231122 Start: 10/06/23 1200 Ordered Dose (Remaining/Total): 75 mg (--/--) Route: oral Frequency: Daily Ordered Rate/Order Duration: -- / -- Timestamps Action Dose Route Other Information 10/07/23 0858 Given 75 mg oral Performed by: Tania Merritt RN Scanned Package: 41896-451-53 ezetimibe (ZETIA) tablet 10 mg [[id number]] Ordering Provider: Regi Khan DO Status: Dispensed Ordered On: 10/06/231122 Start: 10/07/23 0900 Ordered Dose (Remaining/Total): 10 mg (--/--) Route: oral Frequency: Daily Ordered Rate/Order Duration: -- / -- Timestamps Action Dose Route Other Information 10/07/23 0857 Given 10 mg oral Performed by: Tania Merritt RN Scanned Package: 89739-082-59 famotidine (PEPCID) tablet 20 mg [[id number]] Ordering Provider: Regi Khan DO Status: Dispensed Ordered On: 10/06/231122 Start: 10/06/23 2100 Ordered Dose (Remaining/Total): 20 mg (--/--) Route: oral Frequency: 2 times daily Ordered Rate/Order Duration: -- / -- Timestamps Action Dose Route Other Information 10/07/23 0856 Given 20 mg oral Performed by: Tania Merritt RN Scanned Package: 83344-367-07 losartan (COZAAR) tablet 100 mg [[id number]] Ordering Provider: Regi Khan DO Status: Dispensed Ordered On: 10/06/231122 Start: 10/06/23 1200 Ordered Dose (Remaining/Total): 100 mg (--/--) Route: oral Frequency: Daily Ordered Rate/Order Duration: -- / -- Timestamps Action Dose Route Other Information 10/07/23 0856 Given 100 mg oral Performed by: Tania Merritt RN Scanned Package: 90824-757-15 hydroCHLOROthiazide (HYDRODIURIL) tablet 12.5 mg [[id number]] Ordering Provider: Regi Khan DO Status: Dispensed Ordered On: 10/06/231122 Start: 10/06/23 1200 Ordered Dose (Remaining/Total): 12.5 mg (--/--) Route: oral Frequency: Daily Ordered Rate/Order Duration: -- / -- Timestamps Action Dose Route Other Information 10/07/23 0856 Given 12.5 mg oral Performed by: Tania Merritt RN Scanned Package: 42564-975-72 meclizine (ANTIVERT) tablet 25 mg [[id number]] Ordering Provider: Regi Khan DO Status: Verified Ordered On: 10/06/231122 Start: 10/06/23 121 Ordered Dose (Remaining/Total): 25 mg (--/--) Route: oral Frequency: Daily PRN Ordered Rate/Order Duration: -- / -- (No admins scheduled or recorded for this medication) propranoloL (INDERAL) tablet 20 mg [[id number]] On hold since yesterday at 1226 until manually unheld; held by Yoan Edwards PAHold Reason: Change in Patient Status Ordering Provider: Regi Khan DO Status: Verified Ordered On: 10/06/231122 Start: 10/06/23 1200 Ordered Dose (Remaining/Total): 20 mg (--/--) Route: oral Frequency: 2 times daily Ordered Rate/Order Duration: -- / -- (No admins scheduled or recorded for this medication) SUMAtriptan (IMITREX) tablet 50 mg [[id number]] Ordering Provider: Regi Khan DO Status: Verified Ordered On: 10/06/231122 Start: 10/06/231122 Ordered Dose (Remaining/Total): 50 mg (--/--) Route: oral Frequency: Once as needed Ordered Rate/Order Duration: -- / -- Admin Instructions: May repeat dose once in 2 hours if unresolved. Do not exceed 200 mg in 24 hours. (No admins scheduled or recorded for this medication) zolpidem (AMBIEN) tablet 5 mg [[id number]] Ordering Provider: Regi Khan DO Status: Verified Ordered On: 10/06/231122 Start: 10/06/231122 Ordered Dose (Remaining/Total): 5 mg (--/--) Route: oral Frequency: Nightly PRN Ordered Rate/Order Duration: -- / -- (No admins scheduled or recorded for this medication) aspirin enteric coated tablet 81 mg [[id number]] Ordering Provider: Regi Khan DO Status: Dispensed Ordered On: 10/06/231122 Start: 10/07/23 0900 Ordered Dose (Remaining/Total): 81 mg (--/--) Route: oral Frequency: Daily Ordered Rate/Order Duration: -- / -- Admin Instructions: Do not crush, chew, cut, dissolve, open or otherwise manipulate tablet/capsule. Timestamps Action Dose Route Other Information 10/07/23 0856 Given 81 mg oral Performed by: Tania Merritt RN Scanned Package: 12059-566-51 sodium chloride 0.9% flush 0.5-20 mL [[id number]] Ordering Provider: Regi Khan DO Status: Verified Ordered On: 10/06/231122 Start: 10/06/23 1400 Ordered Dose (Remaining/Total): 0.5-20 mL (--/--) Route: intra-catheter Frequency: Every 8 hours scheduled Ordered Rate/Order Duration: -- / -- Admin Instructions: Flush volume based on line type and size. Timestamps Action Dose Route Other Information 10/06/23 2212 Given 10 mL intra-catheter Performed by: Deborah Ortiz RN Scanned Package: [id number] sodium chloride 0.9% flush 0.5-20 mL [[id number]] Ordering Provider: Regi Khan DO Status: Verified Ordered On: 10/06/231122 Start: 10/06/231122 Ordered Dose (Remaining/Total): 0.5-20 mL (--/--) Route: intra-catheter Frequency: As needed Ordered Rate/Order Duration: -- / -- Admin Instructions: Flush volume based on line type and size. Flush before and after each use. (No admins scheduled or recorded for this medication) Lactated Ringer's (LR) infusion [[id number]] Ordering Provider: Regi Khan DO Status: Dispensed [...] mL in sterile water (premix) 2,000 mg [[id number]] Ordering Provider: Regi Khan DO Status: Completed [...] Performed by: Deborah Ortiz RN Scanned Package: 5975-1417-93, 8850-2589-74 acetaminophen (TYLENOL) tablet 975 mg [[id number]] Ordering Provider: Regi Khan DO Status: Dispensed Ordered On: 10/06/23 112 Start: 10/06/23 1500 Ordered Dose (Remaining/Total): 975 mg (--/--) Route: oral Frequency: Every 6 hours scheduled Ordered Rate/Order Duration: -- / -- Timestamps Action Dose Route Other Information 10/07/23 0857 Given 975 mg oral Performed by: Tania Merritt RN Scanned Package: 11285-092-96, 05588-216-03, 69260-160-07 oxyCODONE (ROXICODONE) tablet 5 mg [[id number]] Ordering Provider: Regi Khan DO Status: Dispensed [...] Performed by: Deborah Ortiz RN Scanned Package: 67940-439-80 HYDROmorphone (DILAUDID) injection 0.2 mg [[id number]] Ordering Provider: Regi Khan DO Status: Dispensed [...] Performed by: Deborah Ortiz RN Scanned Package: 0233-5026-06 ondansetron (ZOFRAN) injection 4 mg [[id number]] Ordering Provider: Regi Khan DO Status: Verified Ordered On: 10/06/231122 Start: 10/06/231122 Ordered Dose (Remaining/Total): 4 mg (--/--) Route: intravenous Frequency: Every 6 hours PRN Ordered Rate/Order Duration: -- / 2 Minutes Admin Instructions: Proceed to prochlorperazine if no relief within 30 minutes. (No admins scheduled or recorded for this medication) polyethylene glycol (MIRALAX) packet 17 g [[id number]] Ordering Provider: Regi Khan DO Status: Verified Ordered On: 10/06/231122 Start: 10/06/23 1200 Ordered Dose (Remaining/Total): 17 g (--/--) Route: oral Frequency: Daily Ordered Rate/Order Duration: -- / -- Admin Instructions: Hold for diarrhea. (No admins scheduled or recorded for this medication) docusate sodium (COLACE) capsule 100 mg [[id number]] Ordering Provider: Regi Khan DO Status: Dispensed Ordered On: 10/06/231122 Start: 10/06/23 1200 Ordered Dose (Remaining/Total): 100 mg (--/--) Route: oral Frequency: 2 times daily Ordered Rate/Order Duration: -- / -- Admin Instructions: Hold for diarrhea Timestamps Action Dose Route Other Information 10/07/23 0857 Given 100 mg oral Performed by: Tania Merritt RN Scanned Package: 4776-8203-89 bisacodyL (DULCOLAX) suppository 10 mg [[id number]] Ordering Provider: Regi Khan DO Status: Verified Ordered On: 10/06/231122 Start: 10/06/231122 Ordered Dose (Remaining/Total): 10 mg (--/--) Route: rectal Frequency: Daily PRN Ordered Rate/Order Duration: -- / -- (No admins scheduled or recorded for this medication) calcium carbonate (TUMS) chewable tablet 1,000 mg [[id number]] Ordering Provider: Regi Khan DO Status: Dispensed Ordered On: 10/06/231122 Start: 10/06/23 1200 Ordered Dose (Remaining/Total): 400 mg of elemental calcium (--/--) Route: oral Frequency: 2 times daily Ordered Rate/Order Duration: -- / -- Timestamps Action Dose Route Other Information 10/07/23 0858 Given 1,000 mg oral Performed by: Tania Merritt RN Scanned Package: [id number], [id number] benzocaine-menthoL (CHLORASEPTIC) lozenge 1 lozenge [[id number]] Ordering Provider: Regi Khan DO Status: Dispensed Ordered On: 10/06/231122 Start: 10/06/231122 Ordered Dose (Remaining/Total): 1 lozenge (--/--) Route: mouth/throat Frequency: Every 4 hours PRN Ordered Rate/Order Duration: -- / -- Timestamps Action Dose Route Other Information 10/07/23 0846 Given 1 lozenge mouth/throat Performed by: Tania Merritt RN Scanned Package: [id number] dextrose (GLUTOSE) 40 % gel 15 g [[id number]] Ordering Provider: Regi Khan DO Status: Verified [...] Call MD for each episode of hypoglycemia. SHANK TURNER STATES GLUTOSE-15 CONTAINS GLUCOSE 40% W/W (50% W/V) (No admins scheduled or recorded for this medication) dextrose (D10W) 10% bolus 250 mL [[id number]] Ordering Provider: Regi Khan DO Status: Verified [...] hour post treatment. If BG is less cdvy841 mg/dL, repeat Q15 minute BG checks and treatment. Call MD for each episode of hypoglycemia. (No admins scheduled or recorded for this medication) glucagon injection 1 mg [[id number]] Ordering Provider: Regi Khan DO Status: Verified [...] this medication) escitalopram (LEXAPRO) tablet 15 mg [[id number]] Ordering Provider: Regi Khan DO Status: Dispensed Ordered On: 10/06/23 1435 Start: 10/07/23 0900 Ordered Dose (Remaining/Total): 15 mg (--/--) Route: oral Frequency: Daily Ordered Rate/Order Duration: -- / -- Timestamps Action Dose Route Other Information 10/07/23 0856 Given 15 mg oral Performed by: Tania Merritt RN Scanned Package: [id number], [id number] insulin lispro (HumaLOG, ADMELOG) 100 unit/mL injection 9 Units [[id number]] Ordering Provider: Regi Khan DO Status: Verified [...] 100 UNIT/ML patient supplied pump 0-25 Units [[id number]] Ordering Provider: Regi Khan DO Status: Verified [...] Shift: pain control; void without difficulty; 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 Patient Centered Goal for Treatment: discharge to [...] for the Shift: safety and pain control [facility] Patient Centered Goal for Treatment: discharge to [...] DATE OF : 1965 CONTACT SERIAL NUMBER: [id number] PRIMARY CARE PHYSICIAN: Eron Holliday NP PROCEDURE DATE: October 06, 2023 Pre-op Diagnosis * Primary osteoarthritis of right knee [M17.11] Post-op Diagnosis * Primary osteoarthritis of right knee [M17.11] Procedure(s) (LRB): RIGHT TOTAL KNEE ARTHROPLASTY (Right) PROCEDURE LOCATION: [facility] OPERATING ROOM 06 SURGEON: Surgeons and Role: * Regi Khan DO - Primary ASSISTANTS: Social Studies Teacher: Carrie Daniel RN Physician Metal Model Maker: Yoan Edwards PA Scrub: Marcial De La Garza RN NETWORKING SPECIALIST: Frdey, Jose R L., CRNFA ANESTHESIA: Anesthesiologist: Olayinka Zayas MD SAFETY SEALER: Cheyenne Bateman CRNA ANESTHESIA TYPE: General PROPHYLACTIC IV ANTIBIOTICS: IV Ancef COMPLICATIONS: None apparent at the end of the case FINDINGS: Severe end stage tricompartmental knee osteoarthritis SPECIMENS: None EBL: 25 mL TOURNIQUET TIME: Not utilized Physician speech language pathologist assistant Yoan Edwards was required throughout the case, including preoperatively and postoperatively for their specific skills set with patient positioning, skilled retraction, manipulation of the operative extremity, retraction of tissues and closure. Due to the complexity of the case, the skill set of an orthopedic physician speech language pathologist assistant was needed throughout the case. No other qualified assistants were available for the case and their assistance was critical to completion of the case in a safe, timely and effective manner. IMPLANTS: Implant Name Type Inv. Item Serial No. Ironing Worker Lot No. LRB No. Used Action [employer] Attune Cruciate Retain Cementless Knee Right 5 Narrow Component [id number] - [id number] [employer] Attune Cruciate Retain Cementless Knee Right 5 Narrow Component [id number] [employer] [id number] Right 1 Implanted [employer] Attune 35mm Cemented Medialize Knee Dome Patellar Aox Sterile [id number] - [id number] [employer] Attune 35mm Cemented Medialize Knee Dome Patellar Aox Sterile [id number] [employer] [id number] Right 1 Implanted [employer] ATTUNE FB TIB BASE SZ 5 POR [id number] - [id number] [employer] ATTUNE FB TIB BASE SZ 5 POR [id number] [employer] [id number] Right 1 Implanted [employer] Cmw 2 Fast Set Cement 20gm Bone Sterile 3322-020 - [id number] [employer] Cmw 2 Fast Set Cement 20gm Bone Sterile 3322- 020 [employer] [id number] Right 1 Implanted [employer] Insert Tibial Knee Fixed Rm Posterior Stabilized Attune 6mm Size 5 Polyethylene [id number] - [id number] [employer] Insert Tibial Knee Fixed Rm Posterior Stabilized Attune 6mm Size 5 Polyethylene [id number] [employer] [id number] Right 1 Implanted 1. DePuy Attune CR [...] surgical timeout was then performed according to [facility] protocol identifying the correct patient, surgical procedure, [...] anatomic landmarks using the transepicondylar axis and Dale's line. Two smooth pins were placed through [...] then placed in extension and a lamina material spreader was placed laterally and curved knee retractor medially. The medial meniscus was excised using the bovie taking care to protect the MCL. Any remaining bone was removed using a small saw. The lamina material spreader was then moved to the medial side [...] longitudinal traction was utilized coupled with alamina material spreader and an Aquamantys was utilized to minimize [...] impacted into place. A single batch of Cas[place]uy fast set cement was mixed on the [...] reinforcement. The knee was flexed up to [id number] degrees and interrupted 2-0 vicryl sutures were [...] operative knee Regi Khan DO Orthopedic Surgeon [facility] Medical Group 10/06/2023 9:32 AM * Perioperative [...] ORDERABLES - DEVICE F inal Result OLIVIA [address] [facility] [place] [address] * POCT glucose (10/07/2023 8:24 AM CDT) Glucose, POC 149 70 - 199 mg/dL Glucose comment 1 Use This Result OLIVIA Blood 10/07/2023 8:24 AM CDT 10/07/2023 8:24 AM CDT us Regi Khan DO LAB POCT ORDERABLES - DEVICE F inal Result Performing Organization Address City/[facility] Co de Phone Number OLIVIA [facility] [employer] [place] [address] * eGFR (10/07/2023 2:52 AM CDT) eGFR [...] ORDERABLES Final Resul t Performing Organization Address City/[facility]/ZIP Co de Phone Number OLIVIA [facility] [place] [address] * (ABNORMAL) Differential, auto (10/07/2023 2:52 AM CDT) Pathologist [facility] Neutrophil abs 8.1(H) 1.5 - 6.5 K/cumm Imm gran abs 0.0 0.0 - 0.1 K/cumm [facility] Lymphocyte abs 2.4 0.8 - 3.3 K/cumm [facility] Monocyte abs 1.0(H) 0.2 - 0.8 K/cumm [facility] Eosinophil abs 0.0 0.0 - 0.5 K/cumm [facility] Basophil abs 0.0 0.0 - 0.1 K/cumm [facility] Neutrophil pct 70.2 % [facility] Comment: Interpretive Data Percent cell count reference ranges are not reported, since discordance with absolute values may lead to misinterpretation of CBC data. Current Interpretive Data was last revised on 2017. Imm gran pct 0.2 % [facility] Comment: Interpretive Data Percent cell count reference ranges are not reported, since discordance with absolute values may lead to misinterpretation of CBC data. Current Interpretive Data was last revised on 2017. Lymphocyte pct 20.6 % [facility] Comment: Interpretive Data Percent cell count reference ranges are not reported, since discordance with absolute values may lead to misinterpretation of CBC data. Current Interpretive Data was last revised on 2017. Monocyte pct 8.6 % [facility] Comment: Interpretive Data Percent cell count reference ranges are not reported, since discordance with absolute values may lead to misinterpretation of CBC data. Current Interpretive Data was last revised on 2017. Eosinophil pct 0.1 % [facility] Comment: Interpretive Data Percent cell count reference ranges are not reported, since discordance with absolute values may lead to misinterpretation of CBC data. Current Interpretive Data was last revised on 2017. Basophil pct 0.3 % [facility] Comment: Interpretive Data Percent cell count reference ranges are not reported, since discordance with absolute values may lead to misinterpretation of CBC data. Current Interpretive Data was last revised on 2017. Blood 10/07/2023 2:52 AM CDT 10/07/2023 3:03 AM CDT Yoan GIRARD LAB BLOOD ORDERABLES Final Resul t Performing Organization Address [facility] Co de Phone Number OLIVIA [address] [place] [address] * (ABNORMAL) CBC with auto differential (10/07/2023 2:52 AM CDT) Pathologist [facility] WBC 11.5(H) 3.8 - 9.9 K/cumm Hgb 9.8(L) 11.9 - 15.5 g/dL [facility] Hct 31.6(L) 35.6 - 45.5 % [facility] Plt 265 150 - 400 K/cumm [facility] MPV 10.3 9.1 - 12.3 fL [facility] RBC 3.57(L) 3.90 - 5.20 M/cumm [facility] MCV 88.5 81.3 - 96.4 fL [facility] MCH 27.5 27.1 - 33.3 pg [facility] MCHC 31.0(L) 32.3 - 35.7 g/dL [facility] RDW CV 14.6 11.1 - 14.9 % [facility] RDW SD 47.2 35.7 - 48.1 fL [facility] NRBC abs 0.00 0.00 - 0.01 K/cumm [facility] Blood 10/07/2023 2:52 AM CDT 10/07/2023 3:03 AM CDT Yoan GIRARD LAB BLOOD ORDERABLES Final Resul t Performing Organization Address City/[facility]/ZIP Co de Phone Number OLIVIA [address] [place] [address] * Basic metabolic panel (10/07/2023 2:52 AM CDT) Pathologist [facility] Sodium 140 135 - 145 mmol/L Potassium, pl 4.3 3.3 - 4.9 mmol/L [facility] Chloride 105 97 - 110 mmol/L [facility] CO2 27 22 - 32 mmol/L [facility] Anion gap 8 2 - 15 mmol/L [facility] BUN 21 6 - 25 mg/dL [facility] Creatinine 1.03 0.60 - 1.10 mg/dL [facility] Glucose 102 70 - 199 mg/dL [facility] Comment: Interpretive Data Fasting glucose >/= [...] 2022. Calcium 9.8 8.5 - 10.3 mg/dL [facility] Blood 10/07/2023 2:52 AM CDT 10/07/2023 3:03 AM CDT Yoan GIRARD LAB BLOOD ORDERABLES Final Resul t Performing Organization Address City/[facility]/ZIP Co de Phone Number [address] [employer] [place], [place] [id number] * POCT glucose (10/06/2023 11:33 PM CDT) Glucose, POC 179 70 - 199 mg/dL Blood 10/06/2023 11:3 3 PM CDT 10/06/2023 11:33 PM CDT Regi Khan DO LAB POCT ORDERABLES - DEVICE F inal Result Performing Organization Address City/[facility]/ZIP Co de Phone Number [address] [employer] [place], [place] [id number] * (ABNORMAL) POCT glucose (10/06/2023 6:13 PM CDT) Glucose, POC 228(H) 70 - 199 mg/dL Glucose comment 1 RN/MD Notified [facility] Blood 10/06/2023 6:13 PM CDT 10/06/2023 6:13 PM CDT [employer] Erin DO LAB POCT ORDERABLES - DEVICE F inal Result Performing Organization Address [facility] de Phone Number OLIVIA [address] [place] [address] * (ABNORMAL) POCT glucose (10/06/2023 4:48 PM CDT) Glucose, POC 251(H) 70 - 199 mg/dL Glucose comment 1 RN/MD Notified OLIVIA Blood 10/06/2023 4:48 PM CDT 10/06/2023 4:48 PM CDT [employer] DO LAB POCT ORDERABLES - DEVICE F inal Result Performing Organization Address [facility] de Phone Number OLIVIA [address] [address] * (ABNORMAL) POCT glucose (10/06/2023 10:54 AM CDT) Glucose, POC 283(H) 70 - 199 mg/dL Glucose comment 1 RN/MD Notified OLIVIA Blood 10/06/2023 10:5 4 AM CDT 10/06/2023 10:54 AM CDT [employer] DO LAB POCT ORDERABLES - DEVICE F inal Result Performing Organization Address [facility] Co de Phone Number [address] [place] [address] * X-ray knee right 1 or 2 [...] D: ??10/06/2023 10:00 AM T: Report ID: [id number] Reading Location: ??[id number] Procedure Note Carlo Adams MD - 10/06/2023 [...] Carlo Adams M.D. RB T: Report ID: [id number] Reading Location: [id number] Regi Khan DO IMG XR PROCEDURES Final Result * (ABNORMAL) POCT glucose (10/06/2023 9:34 AM CDT) [facility] Signature Glucose, POC 215(H) 70 - 199 mg/dL Glucose comment 1 Use This Result OLIVIA [place] Blood 10/06/2023 9:34 AM CDT 10/06/2023 9:34 AM CDT [employer] DO LAB POCT ORDERABLES - DEVICE F inal Result OLIVIA [address] [facility] Department [place] [address] * (ABNORMAL) POCT glucose (10/06/2023 9:31 AM CDT) Glucose, POC 244(H) 70 - 199 mg/dL Glucose comment 1 Will Repeat Test OLIVIA Blood 10/06/2023 9:31 AM CDT 10/06/2023 9:31 AM CDT us [employer] Erin DO LAB POCT ORDERABLES - DEVICE F inal Result Performing Organization Address [facility] Co de Phone Number OLIVIA [address] [place] [address] * POCT glucose (10/06/2023 6:26 AM CDT) Glucose, POC 114 70 - 199 mg/dL Glucose comment 1 Use This Result OLIVIA Blood 10/06/2023 6:26 AM CDT 10/06/2023 6:26 AM CDT [employer] DO LAB POCT ORDERABLES - DEVICE F inal Result Performing Organization Address [facility] Co de Phone Number OLIVIA [address] [place] [address] * ABO / Rh Confirmation Testing (10/06/2023 6:10 AM CDT) ABO/Rh Confirmation A Positive [facility] Blood 10/06/2023 6:10 AM CDT 10/06/2023 6:32 AM CDT [employer] DO LAB BLOOD ORDERABLES Final Res ult Performing Organization Address [facility] Co de Phone Number OLIVIA [address] [place] [address] [facility] documented in this encounter Visit Diagnoses [...] Call MD for each episode of hypoglycemia. SHANK TURNER STATES GLUTOSE-15 CONTAINS GLUCOSE 40% W/W (50% [...] Call MD for each episode of hypoglycemia. SHANK TURNER STATES GLUTOSE-15 CONTAINS GLUCOSE 40% W/W (50% [...] Call MD for each episode of hypoglycemia. SHANK TURNER STATES GLUTOSE-15 CONTAINS GLUCOSE 40% W/W (50% [...] First Orde red Date IP CONSULT TO [facility] LAB 1 Admission Count Last Ordered Date First Orde red Date INITIATE OUTPATIENT IN A BED 1 10/06/2023 Discharge Count Last Ordered Date First Orde red Date DISCHARGE PATIENT 1 10/07/2023 documented in this encounter Care Teams Import Export Agent Relationship Specialty Start Date End Date Eron Holliday NP [address] [place] [address] PCP - General Pain Management 07/15/22 Marialuisa Daniel NP [address] [place] [address] Nurse Practitioner Endocrinology Diabetes & Metabolism 09/22/23 Leobardo Bhagat MD [address] [place] [address] [address] Consulting Physician Nephrology 09/22/23 [place] [id number] [address] Consulting Physician Cardiovascular Disease 09/22/23 documented as of this encounter
--- OUTSIDE RECORDS SUMMARY | 2024-03-03 17:35 | XMS_ITS | Encounter Summary ---
Author Organization [facility] Healthcare Address [address] [place] [address] Care Team Providers Care Interior Design Principal Name Role Phone Eron Holliday NP Primary Care Provider [phone] Marialuisa Daniel NP Unavailable [phone] Leobardo Bhagat MD Unavailable [phone] Florin Dixon MD Unavailable Reason for Referral * Home Health (Routine) - Authorized Specialty Diagnoses / Procedures Referred By Claudette smith Referred To Contact Home Health Services Diagnoses Aftercare following right knee joint replacement surgery Regi Khan DO [address] [facility] [address] [address] Phone: tel: fax: Referral ID Status Reason Start Date Expiration Date Visits Requested Visits Authorized [id number] Authorized Specialty Services Required 10/10/2023 11/08/2024 1 1 Question [facility] Primary disciplines requested: Physical Therapy, [facility] Therapy to Eval/Tx, Wound/Ostomy [...] st Contact Info) Description 10/10/2023 Orders Only [facility] Medical Group Orthopedics and Sports Medicine [address] [place] [phone] Yona Edwards PA [address] [facility] [address] [address] Aftercare following right knee joint replacement surgery (Primary Dx) Social History Tobacco Use Types Packs/Day Years Used Date Smoking Tobacco: Former Cigarettes Q uit: 03/20/2020 Smokeless Tobacco: Never [facility] Utilities Answer Date Recorded In the past 12 months has [employer], gas, oil, or water [employer] threatened to shut off services in your [...] How often do you attend chur or confucianist services? 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 Gender Identity Female 12/26/2023 10:11 PM CDT Sexual Orientation Straight 12/26/2023 10 :11 PM CDT Occupation Industry Job Start Date Job End Date [employer] Not on file Not on file Not [...] Primary documented in this encounter Care Teams Interior Design Principal Relationship Specialty Start Date End Date Eron Holliday NP [address] [facility] [place] [address] PCP - General Pain Management 07/15/22 Marialuisa Daniel NP [address] [facility] [place] [address] Nurse Practitioner Endocrinology Diabetes & Metabolism 09/22/23 Leobardo Bhagat MD [address] [place] [address] [address] Consulting Physician Nephrology 09/22/23 [place] [id number] [address] Consulting Physician Cardiovascular Disease 09/22/23 documented as of this encounter
--- OUTSIDE RECORDS SUMMARY | 2024-03-03 17:35 | XMS_ITS | Encounter Summary ---
Author Organization [facility] Healthcare Address [address] [place] [address] Care Team Providers Care Resaw Tailer Name Role Phone Eron Holliday NP Primary Care Provider [phone] Marialuisa Daniel NP Unavailable [phone] Leobardo Bhagat MD Unavailable [phone] Florin Dixon MD Unavailable Encounter Details Date Type Department Care Team (Late st Contact Info) Description 10/10/2023 Orders Only [facility] Medical Group Orthopedics and Sports Medicine [address] [place] [phone] Yoan Edwards PA [address] [place] [address] Social History Tobacco Use Types Packs/Day Years Used Date Smoking Tobacco: Former Cigarettes Q uit: 03/20/2020 Smokeless Tobacco: Never [facility] Utilities Answer Date Recorded In the past 12 months has [employer], gas, oil, or water company threatened [...] time in the past 12 m [facility], were you homeless or living [...] on file 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 Gender Identity Female 12/26/2023 10:11 PM CDT Sexual Orientation Straight 12/26/2023 10 :11 PM CDT 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 file Not on file Not on file documented as of this encounter Plan of Treatment Not on file documented as of this encounter Visit Diagnoses Not on filedocumented in this encounter Care Teams Resaw Tailer Relationship Specialty Start Date End Date Eron Holliday NP [address] [place] [address] PCP - General Pain Management 07/15/22 Marialuisa Daniel NP [address] [place] [address] Nurse Practitioner Endocrinology Diabetes & Metabolism 09/22/23 Leobardo Bhagat MD [address] [place] [address] Consulting Physician Nephrology 09/22/23 [place] [id number] [address] Consulting Physician Cardiovascular Disease 09/22/23 documented as of this encounter
--- OUTSIDE RECORDS SUMMARY | 2024-03-03 17:35 | XMS_ITS | Encounter Summary ---
Author Organization [facility] Healthcare Address [address] [place] [address] Care Team Providers Care Tourist Home Keeper Name Role Phone Eron Holliday NP Primary Care Provider [phone]- [phone] Marialuisa Daniel NP Unavailable [phone] Leobardo Bhagat MD Unavailable [phone] Florin Dixon MD Unavailable Reason for Visit * Auth/Cert (Routine) Specialty Diagnoses / Procedures Referred By Claudette t Referred To Contact Referral ID Status Reason Start Date Expiration Date Visits Re quested Visits Authorized [id number] 1 2 Encounter Details Date Type Department Care Team (Latest Contact Info) Description 10/12/2023 6:00 PM CDT Home Care Visit [address] [address] [address] [place] [address] Licha Schafer RN SN OASIS START OF [...] materials from doctor or pharmacy Never 10/12/2023 [facility] Utilities Answer Date Recorded In [...] any clubs o r organizations such as episcopal groups, unions, fraternal or athletic groups, or [...] any time in the past 12 m [facility], were you homeless or [...] on file 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 M1800 [...] guidance, if patient requires standby assistance (a ??research test engine evaluator??) to dress safely or requires verbal cueing/reminders due to physical/cognitive/environmental barriers to complete task safely, then Code 2. M1820 - Dress Lower Body 0- independent 2- needs assist Changed from 0 to 2. Patient needs supervision w/ ambulation due to limited ROM, generalized weakness, and falls risk. According to OASIS guidance, if patient requires standby assistance (a ??research test engine evaluator??) to dress safely or requires verbal cueing/reminders [...] due to physical/emotional impairments, then Code 3. [id number] - Self Care - Oral Hygiene: SOC/CÉSAR [...] cueing/touching/steadying or contact guard, then Code 04. [id number]_O6 - Self Care - Toileting Hygiene: SOC/CÉSAR [...] cueing/touching/steadying or contact guard, then Code 04. [id number] - Mobility - Chair/Hce-bo-Gjaay Transfer: SOC/CÉSAR Performance 06. Independent - completes activity indep; no c/g assist 04. Supervision - verbal cues; contact guard assistance Activity Codes: Changed from Code 06 to Code 04 ?? Supervision. Patient needs supervision w/ transfers & ambulation due to limited ROM, generalized weakness, and falls risk. OASIS guidance states if the patient needs verbal cueing/touching/steadying or contact guard, then Code 04. HF9637_A5 - Mobility - Toilet Transfer: SOC/CÉSAR Performance [...] cueing/touching/steadying or contact guard, then Code 04. [id number]_D1 - Mobility - Walk 10 Feet: SOC/CÉSAR [...] cueing/touching/steadying or contact guard, then Code 04. JG9068_C5 - Mobility - Walk 50 Feet with [...] cueing/touching/steadying or contact guard, then Code 04. DK7085_G4 - Mobility - Walking 10 feet on [...] -SN OASIS Start o f Care Discipline -Long-Term Problems Problem Description Start Date Status Goals Interve ntions Learning/Teaching Needs - Diabetes Disciplines: Long-Term Learning and teaching needs associated with diagnosis 10/13/2023 Active 1 goal linked to scheduled/documen mariama intervention Disease Management - Diabetes Disciplines: Long-Term Management of diabetes symptoms 10/13/2023 Active 1 goal linked to scheduled/documen mariama intervention Homebound Status Disciplines: Skilled Disciplines Patient's homebound status 10/13/2023 Active 1 goal linked to scheduled/documen mariama intervention Monitor patient's vital signs every home health visit Disciplines: SN, PT, OT, BRADDISHER, WATER REGULATOR AND VALVE REPAIRER, Skilled Disciplines Monitor patient's vital signs every [...] visit during episode of care Description: Home advertising specialist to measure vital signs during every [...] No documented in this encounter Care Teams Tourist Home Keeper Relationship Specialty Start Date End Date Eron Holliday NP [address] [place] [address] PCP - General Pain Management 07/15/22 Marialuisa Daniel NP [address] [place] [address] Nurse Practitioner Endocrinology Diabetes & Metabolism 09/22/23 Leobardo Bhagat MD [address] [place] [address] [address] Consulting Physician Nephrology 09/22/23 [place] [address] [address] Consulting Physician Cardiovascular Disease 09/22/23 documented as of this encounter
--- OUTSIDE RECORDS SUMMARY | 2024-03-03 17:35 | XMS_ITS | Encounter Summary ---
Author Organization [facility] Healthcare Address [address] [place] [address] Care Team Providers Care Porcelain Mixer Name Role Phone Eron Holliday NP Primary Care Provider [phone] Marialuisa Daniel NP Unavailable [phone] Leobardo Bhagat MD Unavailable [phone] Florin Dixon MD Unavailable Reason for Visit * Reason Onset Date Comments Home Health 10/11/2023 Encounter Details Date Type Department Care Team (Late st Contact Info) Description 10/11/2023 Telephone [facility] Home Care Services [address] [place] [address] Dilia Bustos, RN Home Health [...] materials from doctor or pharmacy Never 10/12/2023 [facility] Utilities Answer Date Recorded In the past [...] on file Legal Sex Female 8:53 AM 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 LVM with contact information. ([phone]) Patient returned call. Home Health Intake Interview completed. Patient verified all information. All questions addressed. documented in this encounter Plan of Treatment Not on file documented as of this encounter Visit Diagnoses Not on filedocumented in this encounter Care Teams Porcelain Mixer Relationship Specialty Start Date End Date Eron Holliday NP [address] [place] [address] PCP - General Pain Management 07/15/22 Marialuisa Daniel NP [address] [place] [address] Nurse Practitioner Endocrinology Diabetes & Metabolism 09/22/23 Leobardo Bhagat MD [address] [place] [address] [address] [place] [address] Consulting Physician Nephrology 09/22/23 [place] [address] [facility] [address] [address] Consulting Physician Cardiovascular Disease 09/22/23 documented as of this encounter
--- OUTSIDE RECORDS SUMMARY | 2024-03-03 17:35 | XMS_ITS | Encounter Summary ---
Author Organization [facility] Healthcare Address [address] [place] [address] Care Team Providers Care Meal Attendant Name Role Phone Eron Holliday NP Primary Care Provider [phone] Marialuisa Daniel NP Unavailable [phone] Leobardo Bhagat MD Unavailable [phone] Florin Dixon MD Unavailable Encounter Details Date Type Department Care Team (Late st Contact Info) Description 10/13/2023 Home Care Visit [facility] [address] [address] [address] [place] [address] Tania Messina RN SN TRIAGE [...] materials from doctor or pharmacy Never 10/12/2023 [facility] Utilities Answer Date Recorded In [...] often do you attend chur ch or sikhism services? 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 PLEASE CALL Follow-up: emailed Charge Nurse, Schedulers, CRC documented in this encounter Plan of Treatment Not on file documented as of this encounter Visit Diagnoses Not on filedocumented in this encounter Home Health Visit - Care Plan Visit Details Visit Type -SN Triage Encoun ter Discipline -Residential Problems Problem Description Start Date Status Goals Interve ntions Learning/Teachin g Needs - Diabetes Disciplines: Residential Learning and teaching needs associated with diagnosis 10/13/2023 Active 1 goal linked to scheduled/documen mariama intervention 7 goal interventions scheduled/documen mariama in this visit Disease Management - Diabetes Disciplines: Residential Management of diabetes symptoms 10/13/2023 Active 1 goal linked to scheduled/documen mariama intervention 3 goal interventions scheduled/documen mariama in this visit Homebound Status Disciplines: Skilled Disciplines Patient's homebound status 10/13/2023 Active 1 goal linked to scheduled/documen mariama intervention 1 goal intervention scheduled/documen mariama in this visit Monitor patient's vital signs every home health visit Disciplines: SN, PT, OT, WET END HELPER, ARMHOLE SEWER, Skilled Disciplines Monitor patient's vital signs every [...] visit during episode of care Description: Home road engineer freight to measure vital signs during every home [...] homecare's absence. per referral order by Dr. Edwadrs Date Order Received: 10/07/2023 Problem:Wound Care Goal:Progression towards healing Scheduled documented in this encounter Care Teams Meal Attendant Relationship Specialty Start Date End Date Eron Holliday NP [address] [facility] [place] [address] PCP - General Pain Management 07/15/22 Marialuisa Daniel NP [address] [place] [address] [place] [address] Nurse Practitioner Endocrinology Diabetes & Metabolism 09/22/23 Leobardo Bhagat MD [address] [place] [address] [place] [address] Consulting Physician Nephrology 09/22/23 [place] [address] [address] Consulting Physician Cardiovascular Disease 09/22/23 documented as of this encounter
--- OUTSIDE RECORDS SUMMARY | 2024-03-03 17:35 | XMS_ITS | Encounter Summary ---
Author Organization [facility] Healthcare Address [address] [place] [address] Care Team Providers Care Intelligence Research Specialist Name Role Phone Eron Holliday NP Primary Care Provider [phone] Marialuisa Daniel NP Unavailable [phone] Leobardo Bhagat MD Unavailable Florin Dixon MD Unavailable Reason for Visit * Auth/Cert (Routine) Specialty Diagnoses / Procedures Referred By Claudette smith Referred To Contact Referral ID Status Reason Start Date Expiration Date Visits Re quested Visits Authorized [id number] 1 2 Encounter Details Date Type Department Care Team (Late st Contact Info) Description 10/15/2023 Home Care Visit [facility] [address] [address] [address] [place] [id number] Lei So, PT CASE COMMUNICATION Social History [...] materials from doctor or pharmacy Never 10/12/2023 [facility] Utilities Answer Date Recorded In [...] often do you attend chur ch or yazidism services? 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 Not on file Not on file documented as of this encounter Plan of Treatment Not on file documented as of this encounter Visit Diagnoses Not on filedocumented in this encounter Care Teams Intelligence Research Specialist Relationship Specialty Start Date End Date Eron Holliday NP [address] [place] [address] PCP - General Pain Management 07/15/22 Marialuisa Daniel NP [address] [place] [address] Nurse Practitioner Endocrinology Diabetes & Metabolism 09/22/23 Leobardo Bhagat MD [address] [place] [address] [address] Consulting Physician Nephrology 09/22/23 [place] [address] [address] Consulting Physician Cardiovascular Disease 09/22/23 documented as of this encounter
--- OUTSIDE RECORDS SUMMARY | 2024-03-03 17:35 | XMS_ITS | Encounter Summary ---
Author Organization [facility] Healthcare Address [address] [place] [address] Care Team Providers Care Career Development Counselor Name Role Phone Eron Holliday NP Primary Care Provider [phone] Marialuisa Daniel NP Unavailable [phone] Leobardo Bhagat MD Unavailable Florin Dixon MD Unavailable Reason for Referral * Diagnostic Imaging (Routine) - Closed Specialty Diagnoses / Procedures Referred By Claudette smith Referred To Contact Diagnoses Aftercare following right knee joint replacement surgery Procedures XR Knee Right 3 Views Yoan Edwards PA [facility] [address] [place] [address] Phone: tel: fax: [address] [address] Referral ID Status Reason Start Date Expiration Date Visits Re quested Visits Authorized [id number] Closed 10/15/2023 11/13/2024 1 1 Reason for Visit * Diagnostic Imaging (Routine) - Closed Specialty Diagnoses / Procedures Referred By Claudette smith Referred To Contact Diagnoses Aftercare following right knee joint replacement surgery Procedures XR Knee Right 3 Views Yoan Edwards PA [facility] [address] [place] [address] Phone: tel: fax: [facility] [address] [place] [address] Referral ID Status Reason Start Date Expiration Date Visits Re quested Visits Authorized [id number] Closed 10/15/2023 11/13/2024 1 1 Encounter Details Date Type Department Care Team (Latest Contact Info) Description 10/21/2023 8:04 AM CDT - 10/21/2023 11:59 PM CDT Hospital Encounter [facility] [address] [place] [address] Aftercare following right knee joint [...] materials from doctor or pharmacy Never 10/22/2023 [facility] Utilities Answer Date Recorded In the past [...] any time in the past 12 m [facility], were you homeless or living [...] Legal Sex Female 8:53 AM DIRECTOR OF ANALYTICS Gender Identity Female 12/26/2023 10:11 PM CDT Sexual Orientation Straight 12/26/2023 10 :11 PM CDT Occupation Industry Job Start Date Job End Date [employer] Not on file Not on file Not [...] 4 OneTouch Delica Plus Lancet 33 gauge [facility] 4 OneTouch Verio Flex meter [facility] [address] (PROTONIX) 40 mg EC [...] by mouth nightly as needed blood-glucose sensor ([employer] G7 Sensor) device 01/14/20 24 [employer]PIR[employer] (BUSPAR) [...] D: ??10/22/2023 9:37 AM T: Report ID: [id number] Reading Location: ??[id number] Procedure Note Lamont Hidalgo MD - 10/22/2023 [...] Lamont Hidalgo M.D. MF T: Report ID: [id number] Reading Location: [id number] Yoan [facility] XR PROCEDURES Final Result documented in this encounter Visit Diagnoses Diagnosis Aftercare following right knee joint replacement surgery documented in this encounter Care Teams Career Development Counselor Relationship Specialty Start Date End Date Eron Holliday NP [address] [place] [address] PCP - General Pain Management 07/15/22 Marialuisa Daniel NP [address] [place] [address] Nurse Practitioner Endocrinology Diabetes & Metabolism 09/22/23 Leobardo Bhagat MD [address] [place] [address] Consulting Physician Nephrology 09/22/23 [place] [address] [address] Consulting Physician Cardiovascular Disease 09/22/23 documented as of this encounter
--- OUTSIDE RECORDS SUMMARY | 2024-03-03 17:35 | XMS_ITS | Encounter Summary ---
Author Organization [facility] Healthcare Address [address] [place] [address] Care Team Providers Care Photographer Apprentice Name Role Phone Eron Holliday NP Primary Care Provider [phone]- [phone] Marialuisa Daniel NP Unavailable [phone] Leobardo Bhagat MD Unavailable [phone] Florin Dixon MD Unavailable Reason for [...] Felipe Cox MD [address] [place] [address] Phone: tel: fax: [address] [address] Referral ID Status Reason Start Date Expiration Date Visits Re quested Visits Authorized [id number] Closed 10/22/2023 11/20/2024 1 1 Reason for [...] cervical Anterolisthesis of cervical spine Lamar Slater, VASCULAR NURSE [address] [address] Phone: tel: fax: Felipe Cox MD [address] [place] [address] Phone: tel: fax: Referral ID Status Reason Start Date Expiration Date V isits Requested Visits Authorized [id number] Closed Specialty Services Required 08/08/2023 09/06/2024 1 1 Encounter Details Date Type Department Care Team (Latest Contact Info) Description 10/22/2023 10:00 AM CDT Office Visit [facility] [address] [facility], [address] [place] [address] Felipe Cox MD [address] [place] [address] Right cervical radiculopathy; Cervical stenosis [...] materials from doctor or pharmacy Never 10/22/2023 [facility] Utilities Answer Date Recorded In [...] often do you attend chur ch or alevism services? Never 10/07/2023 Do you belong to [...] on file Legal Sex Female 8:53 AM CAR OILER Gender Identity Female 12/26/2023 10:11 PM CDT [...] this encounter Patient Instructions * Patient Instructions* bAy Zabala RN - 10/22/2023 10:00 AM CDT [...] DDD (degenerative disc disease), cervical, Depression, Diabetes ([facility]), Dizziness, Foraminal stenosis of cervicalregion, GERD (gastroesophageal reflux disease), H/O insulin dependent diabetes mellitus, High bloodpressure, Hyperlipidemia, Insulin pump in place, Obesity, PAD (peripheral artery disease) ([facility]), Second hand smoke exposure, Stomach ulcer, Type 1 diabetes mellitus ([facility]) (08/04/2018), Uncontrolled type 2 diabetes mellitus with hyperglycemia ([facility]) (03/14/2017), Uncontrolled type 2 diabetes mellituswith hyperglycemia, with long-term current use of insulin ([facility]) (04/03/2017), Uses self-applied cont inuous glucose monitoring [...] (four) times a day before meals and [id number], Disp: 400 each, Rfl: 3 aspirin 81 [...] PUMP MAX OF 150 UNITS DAILY NEEDED [id number], 0400-2.6 PER HOUR IC 6 ISF 20 [...] Exam: AO3 NAD 4/5 in right hand health and wellness manager and triceps -Katheryn Increased reflexes in RUE [...] allow [facility]. We will also order a [...] significant spinal canal stenosis. ??Uncovertebral spurring and zegq-uearwjs-lsye-right facet arthropathy without significant osseous neural foraminal narrowing. C5-C6: Posterior disc osteophyte complex and thickened ligamentum flavum. ?? Buhk-kb-xkxvanlh spinal canal stenosis. ??Uncovertebral spurring and facet arthropathy with ttxw-xn-mhrvwqlg left and no significant right osseous neural foraminal narrowing. C6-C7: Posterior disc osteophyte complex and thickened ligamentum flavum. ?? Moderate spinal canal stenosis. ??Uncovertebral spurring and facet arthropathy with moderate right and wjeb-ls-xuyvbepd left neural foraminal narrowing. C7-T1: Disc bulge [...] D: ??11/23/2023 9:33 AM T: Report ID: [id number] Reading Location: ??[id number] Procedure Note Sergio Hensley, DO - 11/24/2023 [...] significant spinal canal stenosis. Uncovertebral spurring and inpr-ybkmioy-iqzr-right facet arthropathy without significant osseousneural foraminal narrowing. C5-C6: Posterior disc osteophyte complex and thickened ligamentum flavum. Zgaw-om-aynexkgj spinal canal stenosis. Uncovertebral spurring and facet arthropathy with hahq-bw-geultdia left and no significant right osseousneural foraminal narrowing. C6-C7: Posterior disc osteophyte complex and thickened ligamentum flavum. Moderate spinal canal stenosis. Uncovertebral spurring and facetarthropathy with moderate right and mkwp-sl-aryszhvy left neural foraminalnarrowing. C7-T1: Disc bulge without [...] signed by Sergio AVENDANO T: Report ID: [id number] Reading Location: [place] [address] Felipe Cox MD IMG CT PROCEDURES Final [...] 10/22/2023 documented in this encounter Care Teams Photographer Apprentice Relationship Specialty Start Date End Date Eron Holliday NP [address] [facility] [place] [address] PCP - General Pain Management 07/15/22 Marialuisa Daniel NP [address] [place] [address] [place] [address] Nurse Practitioner Endocrinology Diabetes & Metabolism 09/22/23 Leobardo Bhagat MD [address] [place] [address] [address] Consulting Physician Nephrology 09/22/23 [place] [address] [address] Consulting Physician Cardiovascular Disease 09/22/23 documented as of this encounter
--- OUTSIDE RECORDS SUMMARY | 2024-03-03 17:35 | XMS_ITS | Encounter Summary ---
Author Organization [facility] Healthcare Address [address] [place] [address] Care Team Providers Care Epoxy Coatings Installer Name Role Phone Eron Holliday NP Primary Care Provider [phone]- [phone] Marialuisa Daniel NP Unavailable [phone] Leobardo Bhagat MD Unavailable Florin Dixon MD Unavailable Encounter Details Date Type Department Care Team (Late st Contact Info) Description 10/13/2023 Plan of Care Documentation [facility] [address] [address] [address] [place] [address] Social History Tobacco Use Types [...] materials from doctor or pharmacy Never 10/12/2023 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 The patient is under my care, and I have authorized serviceson this plan of care and will periodically review the plan. The patient had a qjik-vm-jsjk encounter with Yoan Edwards PA on 10/06/2023 and the encounter was related to the primary reason for home health care. documented in this encounter Plan of Treatment Not on file documented as of this encounter Visit Diagnoses Not on filedocumented in this encounter Care Teams Epoxy Coatings Installer Relationship Specialty Start Date End Date Eron Holliday NP [address] [facility] [place] [address] PCP - General Pain Management 07/15/22 Marialuisa Daniel NP [address] [place] [address] [place] [address] Nurse Practitioner Endocrinology Diabetes & Metabolism 09/22/23 Leobardo Bhagat MD [address] [place] [address] Consulting Physician Nephrology 09/22/23 [place] [address] [address] Consulting Physician Cardiovascular Disease 09/22/23 documented as of this encounter
--- OUTSIDE RECORDS SUMMARY | 2024-03-03 17:35 | XMS_ITS | Encounter Summary ---
Author Organization [facility] Healthcare Address [address] [place] [address] Care Team Providers Care Respiratory Therapy Instructor Name Role Phone Eron Holliday NP Primary Care Provider [phone]- [phone] Marialuisa Daniel NP Unavailable [phone] Leobardo Bhagat MD Unavailable [phone] Florin Dixon MD Unavailable Reason for Visit * Auth/Cert (Routine) Specialty Diagnoses / Procedures Referred By Claudette smith Referred To Contact Referral ID Status Reason Start Date Expiration Date Visits Re quested Visits Authorized [id number] 1 2 Encounter Details Date Type Department Care Team (Late st Contact Info) Description 10/17/2023 Home Care Visit [facility] [place] [address] [address] [place] [id number] Tania Messina RN SN TRIAGE ENCOUNTER Social [...] materials from doctor or pharmacy Never 10/12/2023 [facility] Utilities Answer Date Recorded In [...] any time in the past 12 m [facility], were you homeless or living in [...] on file Legal Sex Female 8:53 AM BULB WEEDER Gender Identity Female 12/26/2023 10:11 PM CDT Sexual Orientation Straight 12/26/2023 10 :11 PM CDT Occupation Industry Job Start Date Job End Date [employer] Not on file Not on file Not on file documented as of this encounter Miscellaneous Notes * Triage Note - Tania Messina RN - 10/17/2023 10:45 AM CDT Remote Recruiter: Sandy Lopez Relationship to patient: patient Phone number of contact acid plant operator: [phone] Return call time: 11an Communication details: Patient [...] home health visit Disciplines: SN, PT, OT, RETORT FEEDER GROUND BONE, PAIN MANAGEMENT NURSE PRACTITIONER, Skilled Disciplines Monitor patient's vital signs every [...] visit during episode of care Description: Home quality assurance test program manager to measure vital signs during every home [...] Scheduled documented in this encounter Care Teams Respiratory Therapy Instructor Relationship Specialty Start Date End Date Eron Holliday NP [address] [facility] [place] [address] PCP - General Pain Management 07/15/22 Marialuisa Daniel NP [address] [place] [address] [place] [address] Nurse Practitioner Endocrinology Diabetes & Metabolism 09/22/23 Leobardo Bhagat MD [address] [place] [address] Consulting Physician Nephrology 09/22/23 [place] [id number] [address] Consulting Physician Cardiovascular Disease 09/22/23 documented as of this encounter
--- OUTSIDE RECORDS SUMMARY | 2024-03-03 17:35 | XMS_ITS | Encounter Summary ---
Author Organization [facility] Healthcare Address [address] [place] [address] Care Team Providers Care Supervisor Plastic Sheets Name Role Phone Eron Holliday NP Primary Care Provider [phone]- [phone] Marialuisa Daniel NP Unavailable [phone] Leobardo Bhagat MD Unavailable [phone] Florin Dixon MD Unavailable Reason for Referral * Diagnostic Imaging (Routine) - Closed Specialty Diagnoses / Procedures Referred By Claudette smith Referred To Contact Diagnoses Type 2 diabetes mellitus with hyperglycemia, with long-term current use of insulin (HCC) Procedures RetinaVue Scanner - OU - Both Eyes Marialuisa Daniel NP [address] [place] [address] Phone: tel: fax: [facility] Referral ID Status Reason Start Date Expiration Date Visits Re quested Visits Authorized [id number] Closed 10/09/2023 11/07/2024 1 1 Encounter Details Date Type Department Care Team (Late st Contact Info) Description 10/10/2023 11:00 AM CDT Telemedicine [facility] Diabetes Endocrine Care at [address] [place] [phone] Marialuisa Daniel, AGENT LICENSING CLERK [address] [place] [address] Type 2 diabetes mellitus with hyperglycemia, with [...] materials from doctor or pharmacy Never 10/12/2023 [facility] Utilities Answer Date Recorded In the past 12 months has e [employer], gas, oil, or water [employer] threatened to shut off services in your [...] often do you attend chur ch or hinduism services? 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 You may receive a phone call or text asking about your care today. I would love to hear your input and again, hope your visit was as EXCELLENT as possible, even if you were not feeling your best! Medications: Please take medications as prescribed. Continue on omnipod [employer] insulin delivery system Continue metformin 1000mg twice [...] than once per week. See the Dietitian, Lightning Protection Installer . Call Centralized Scheduling at [phone] to make an appointment. Exercise: Try moving [...] insulin ([facility]) Ordered: 10/09/2023 documented as of this encounter [...] Start Date End Da te Dexcom G6 Covered Buckle Assembler miscIndications:Type 2 diabetes mellitus with hyperglycemia, with long-term current use of insulin (HCC) USE TO TEST BLOOD SUGAR DIRECTED Therapy completed 08/22/2021 10/10/2023 Dexcom G6 Transmitter deviceIndications:Type 2 diabetes mellitus with hyperglycemia, with long-term current use of insulin ([facility]) USE TO TEST BLOOD SUGAR TWICE A DAY Therapy completed 05/28/2022 10/10/2023 documented as of this encounter Care Teams Supervisor Plastic Sheets Relationship Specialty Start Date End Date Eron Holliday NP [address] [place] [address] [place] [address] PCP - General Pain Management 07/15/22 Marialuisa Daniel, CHRISTOPHER [address] [facility] [address] Nurse Practitioner Endocrinology Diabetes & Metabolism 09/22/23 Leobardo Bhagat MD [address] [place] [address] Consulting Physician Nephrology 09/22/23 [place] [id number] [address] Consulting Physician Cardiovascular Disease 09/22/23 documented as of this encounter
--- OUTSIDE RECORDS SUMMARY | 2024-03-03 17:35 | XMS_ITS | Encounter Summary ---
Author Organization [facility] Healthcare Address [address] [place] [address] Care Team Providers Care Telegraph Lineman Name Role Phone Eron Holliday NP Primary Care Provider [phone] Marialuisa Daniel NP Unavailable [phone] Leobardo Bhagat MD Unavailable [phone] Florin Dixon MD Unavailable Reason for Visit * Auth/Cert (Routine) Specialty Diagnoses / Procedures Referred By Claudette t Referred To Contact Referral ID Status Reason Start Date Expiration Date Visits Re quested Visits Authorized [id number] 1 2 Encounter Details Date Type Department Care Team (Latest Contact Info) Description 10/14/2023 11:00 AM CDT Home Care Visit [place] [address] [address] [place] [address] Lei So, PT PT INITIAL EVALUATION Social [...] materials from doctor or pharmacy Never 10/12/2023 [facility] Utilities Answer Date Recorded In the [...] often do you attend chur ch or amish services? 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 documented in this encounter Care Teams Telegraph Lineman Relationship Specialty Start Date End Date Eron Holliday NP [address] [facility] [place] [address] PCP - General Pain Management 07/15/22 Marialuisa Daniel NP [address] [place] [address] [place], [place] [id number] Nurse Practitioner Endocrinology Diabetes & Metabolism 09/22/23 Leobardo Bhagat MD [address] [place] [address] [address] Consulting Physician Nephrology 09/22/23 [place] [id number] [address] Consulting Physician Cardiovascular Disease 09/22/23 documented as of this encounter
--- OUTSIDE RECORDS SUMMARY | 2024-03-03 17:35 | XMS_ITS | Encounter Summary ---
Author Organization [facility] Healthcare Address [address] [place] [address] Care Team Providers Care House Decorator Name Role Phone Eron Holliday NP Primary Care Provider [phone]- [phone] Marialuisa Daniel NP Unavailable [phone] Leobardo Bhagat MD Unavailable Florin Dixon MD Unavailable Reason for Visit * Reason Onset Date Comments at home PT 10/10/2023 Encounter Details Date Type Department Care Team (Late st Contact Info) Description 10/10/2023 Telephone [facility] Medical Group Orthopedics and Sports Medicine [address] [place] [phone] Regi Khan DO [address] [place] [address] at home PT Social History Tobacco [...] materials from doctor or pharmacy Never 10/12/2023 [facility] Utilities Answer Date Recorded In [...] often do you attend chur ch or yarsani services? Never 10/07/2023 Do you belong to [...] in the past 12 m 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 Not on file Not on file Not [...] that she would get a call from [facility] home care a few days after her discharge but she has not heard and she is not sure when she should start PT documented in this encounter Plan of Treatment Not on file documented as of this encounter Visit Diagnoses Not on filedocumented in this encounter Care Teams House Decorator Relationship Specialty Start Date End Date Eron Holliday NP 50 [place] [address] PCP - General Pain Management 07/15/22 Marialuisa Daniel NP 50 [place], [place] [address] Nurse Practitioner Endocrinology Diabetes & Metabolism 09/22/23 Leobardo Bhagat MD [address] [place] [address] Consulting Physician Nephrology 09/22/23 [place] [id number] [address] Consulting Physician Cardiovascular Disease 09/22/23 documented as of this encounter
--- OUTSIDE RECORDS SUMMARY | 2024-03-03 17:36 | XMS_ITS | Encounter Summary ---
Author Organization [facility] Healthcare Address [address] [place] [address] Care Team Providers Care Press Maintainer Name Role Phone Eron Holliday NP Primary Care Provider [phone] Reason for Referral * Procedure (Routine) - Pending Review Specialty Diagnoses / Procedures Referred By Claudette t Referred To Contact Diagnoses Primary osteoarthritis of right knee Procedures Large Joint (Hip, Knee, Shoulder) Injection: R knee Regi Khan DO [address] THAKUR [address] [place] [address] Phone: tel: fax: [facility] Referral ID Status Reason Start Date Expiration Date V isits Requested Visits Authorized [id number] Pending Review 02/13/2023 03/14/2024 1 1 ULTING BUSINESS DEVELOPER Reason for Visit * Reason Comments Injections Euflexxa #1 (Sample) Encounter Details Date Type Department Care Team (Latest Contact Info) Description 02/13/2023 1:30 PM CONSULTING BUSINESS DEVELOPER Clinical Support [facility] Orthopedics and Sports Medicine [address] [place] [phone] Regi Khan DO [address] [place] [address] Primary osteoarthritis of right knee [...] on file Legal Sex Female 8:53 AM CONSULTING BUSINESS DEVELOPER Gender Identity Female 12/26/2023 10:11 PM CDT Sexual Orientation Straight 12/26/2023 10 :11 PM CDT documented as of this encounter Last Filed Vital Signs Vital Sign Reading Time Taken Comments Blood Pressure - - Pulse - - Temperature - - Respiratory Rate - - Oxygen Saturation - - Inhaled Oxygen Concentration - - Weight 99.8 kg (220 lb) 02/13/2023 1:23 PM CONSULTING BUSINESS DEVELOPER Height 165.1 cm (5' 5 ) 02/13/2023 1:23 PM CONSULTING BUSINESS DEVELOPER Body Mass Index 36.61 02/13/2023 1:23 PM CONSULTING BUSINESS DEVELOPER documented in this encounter Progress Notes * [...] medical history of Anxiety, Arthritis, Depression, Diabetes ([facility]), Dizziness, GERD (gastroesophageal reflux disease), High blood pressure, Type 1 diabetes mellitus ([facility]) (08/04/2018), Uncontrolled type 2 diabetes mellitus with hyperglycemia ([facility]) (03/14/2017), and Uncontrolled type 2diabetes mellitus with hyperglycemia, with long-term current use of insulin ([facility]) (04/03/2017). PAST SURGICAL HISTORY She has no past surgical history on file. MEDICATIONS She has a current medication list which includes the following prescription(s): alcohol swabs, aspirin, atorvastatin, blood-glucose meter, buspirone, cetirizine, cholecalciferol, citalopram, clopidogrel, cyclobenzaprine, dexcom g6 development scientist, dexcom g6 transmitter, dexcom g7 sensor, empagliflozin, [...] in the series. Regi Khan DO 02/13/2023 ULTING BUSINESS DEVELOPER documented in this encounter Plan of Treatment Not on file documented as of this encounter Procedures Procedure Name Priority Date/Time Associated Diagnosis Comments [place] ARTHROCENTESIS ASPIR&/INJ MAJOR JT/BURSA W/O US Routine 02/13/2023 1:30 PM CONSULTING BUSINESS DEVELOPER Primary osteoarthritis of right knee documented in this encounter Results * NJ ARTHROCENTESIS ASPIR&/INJ MAJOR JT/BURSA W/O US (02/13/2023 1:30 PM CONSULTING BUSINESS DEVELOPER) Narrative Regi Khan DO - 02/13/2023 1:30 PM CONSULTING BUSINESS DEVELOPER Regi Khan DO ? 02/13/2023 ??2:00 PM [...] of right knee Given 02/13/2023 1:30 PM CONSULTING BUSINESS DEVELOPER 20 mg Right Knee documented in this encounter Discontinued Medications Medication Sig Discontinue Reason Start Date End Da te amoxicillin-clavulanate (AUGMENTIN) 875-125 mg per tablet 01/24/2023 02/13/2023 documented as of this encounter Care Teams Press Maintainer Relationship Specialty Start Date End Date Eron Holliday NP [address] [place] [address] [place] [address] PCP - General Pain Management 07/15/22 documented as of this encounter
--- OUTSIDE RECORDS SUMMARY | 2024-03-03 17:36 | XMS_ITS | Encounter Summary ---
Author Organization [facility] [place] [facility] Address [address] [place] [address] Care Team Providers Care Bakery And Deli Sales Manager Name Role Phone Eron Acevedo NP Primary Care Provider [phone]- [phone] Reason for Visit * Reason Comments PT [...] of right infraspinatus tendon Lamar Slater, CHRISTOPHER [address] [address] Phone: tel: fax: [address] [address] Referral ID Status Reason Start Date Expiration Date V isits Requested Visits Authorized [id number] Closed Evaluate and Treat 05/08/2023 05/07/2024 16 12 Encounter Details Date Type Department Care Team (Late st Contact Info) Description 06/23/2023 2:15 PM CDT Therapy [facility] Medical Office Bldg 1 OP Physical Therapy [address] [place] [address] Gutierrez Phillips, GENEVIVEE Numbness and tingling of right upper extremity [...] on file Legal Sex Female 8:53 AM SMALL PIECE CUTTER Gender Identity Female 12/26/2023 10:11 PM CDT Sexual Orientation Straight 12/26/2023 10 :11 PM CDT 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 [...] progress towards functional goals. Gutierrez Phillips PTA [facility] Services ATTENTION PHYSICIAN If you [...] disc documented in this encounter Care Teams Bakery And Deli Sales Manager Relationship Specialty Start Date End Date Eron Acevedo NP [address] [place] [address] [place] [address] PCP - General Pain Management 07/15/22 documented as of this encounter
--- OUTSIDE RECORDS SUMMARY | 2024-03-03 17:36 | XMS_ITS | Encounter Summary ---
Author Organization [facility] Healthcare Address [address] [place] [address] Care Team Providers Care Channel Rebuilder Name Role Phone Eron Holliday NP Primary Care Provider [phone]- [phone] Reason for Referral * Diagnostic Imaging (Routine) - Closed Specialty Diagnoses / Procedures Referred By Claudette smith Referred To Contact Diagnoses Primary osteoarthritis of right knee Procedures XR Knee Right 3 Views Regi Khan DO [facility] [facility] [address] THAKUR [address] [place] [address] Phone: tel: fax: [address] [address] Referral ID Status Reason Start Date Expiration Date Visits Re quested Visits Authorized [id number] Closed 08/08/2023 09/06/2024 1 1 Reason for Visit * Diagnostic Imaging (Routine) - Closed Specialty Diagnoses / Procedures Referred By Claudette smith Referred To Contact Diagnoses Primary osteoarthritis of right knee Procedures XR Knee Right 3 Views Regi Khan DO [address] [address] [address] THAKUR [address] [place] [address] Phone: tel: fax: [address] [phone] Referral ID Status Reason Start Date Expiration Date Visits Re quested Visits Authorized [id number] Closed 08/08/2023 09/06/2024 1 1 Encounter Details Date Type Department Care Team (Latest Contact Info) Description 08/15/2023 11:25 AM CDT - 08/15/2023 11:59 PM CDT Hospital Encounter [facility] MOB 1 DIAG IMG [address] [place] [address] Primary osteoarthritis of right knee Discharge Disposition: [...] on file Legal Sex Female 8:53 AM PRINCIPAL ARCHITECTURAL 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 4 Dexcom G6 Manager Of Corporate Communications miscIndications:T ype 2 diabetes mellitus with hyperglycemia, with long-term current use of insulin ([facility]) USE TO TEST BLOOD SUGAR DIRECTED 1 each 1 08/22/2021 4 Dexcom G6 Transmitter deviceIndications :Type 2 diabetes mellitus with hyperglycemia, with long-term current use of insulin ([facility]) USE TO TEST BLOOD SUGAR TWICE A [...] the weight-bearing view of the right. ?? Nzeh-hg-qrysjift joint space narrowing medial compartment. IMPRESSION: No acute fracture. Moderate osteoarthritis medial compartment right knee with trivial change of the patellofemoral joint. Mild osteoarthritis medial compartment left knee on more limited view. THIS IS AN ELECTRONICALLY VERIFIED FINAL REPORT 08/16/2023 6:20 PM - Electronically signed by ??Lamont SIMONS: KRISTYN D: ??08/16/2023 6:20 PM T: ??08/16/2023 6:20 PM Report ID: [id number] Reading Location: ??[id number] Procedure Note Lamont Conway MD - 08/16/2023 [...] in the weight-bearing view of the right. Tspq-il-dipkyugo joint space narrowing medial compartment. IMPRESSION: No acute fracture. Moderate osteoarthritis medial compartment right knee with trivial changeof the patellofemoral joint. Mild osteoarthritis medial compartment left knee on more limited view. THIS IS AN ELECTRONICALLY VERIFIED FINAL REPORT 08/16/2023 6:20 PM - Electronically signed by Lamont Conway M.D. MJ: KRISTYN Report ID: [id number] Reading Location: [id number] Regi Khan DO IMG XR PROCEDURES Final Result documented in this encounter Visit Diagnoses Diagnosis Primary osteoarthritis of right knee documented in this encounter Care Teams Channel Rebuilder Relationship Specialty Start Date End Date Eron Holliday NP [address] [facility] [place] [address] PCP - General Pain Management 07/15/22 documented as of this encounter
--- OUTSIDE RECORDS SUMMARY | 2024-03-03 17:36 | XMS_ITS | Encounter Summary ---
Author Organization [facility] Healthcare Address [address] [place] [address] Care Team Providers Care School Office Assistant Name Role Phone Eron Holliday NP Primary Care Provider [phone]- [phone] Marialuisa Tyson NP Unavailable [phone] Leobardo Bhagat MD Unavailable Florin Dixon MD Unavailable Encounter Details Date Type Department Care Team (Latest Contact Info) Description 09/22/2023 11:00 AM CDT Pre-Admission Testing [facility] PreAdmission Testing [facility] [place] [address] Primary osteoarthritis of right knee; [...] on file Legal Sex Female 8:53 AM EDITOR PUBLICATIONS Gender Identity Female 12/26/2023 10:11 PM CDT Sexual Orientation Straight 12/26/2023 10 :11 PM CDT 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 Office: [phone] [facility] * Perioperative Nursing Note - Lashay Garduno [...] from the original note were not included. [address] [address] Surgery Reminder Checklist: Please arrive to [facility] for scheduled surgery on [...] Dairy, Milk Products, Creamer, Red Gatorade or Bibb Juice) Nothing by mouth the 4 hours [...] examples water, crystal light or diet sprite [place] your teeth morning of procedure. Use mouth [...] mg tablet Take as prescribed blood-glucose sensor (CHIC.TV G7 Sensor) device WEAR TO DAY OF [...] please call Admission and Testing Center at [phone]. Morning of surgery question/concerns, please call Outpatient Surgery at [phone]. documented in this encounter Plan of Treatment [...] Results * eGFR (09/22/2023 11:11 AM CDT) [facility] Signature eGFR 63 >=60 mL/min/1. 73 [...] DO LAB BLOOD ORDERABLES Final Res ult [facility] [address] [facility] Department of Laboratories [place], [place] [id number] * Differential, auto (09/22/2023 11:11 AM CDT) Neutrophil abs 5.3 1.5 - 6.5 K/cumm Imm gran abs 0.0 0.0 - 0.1 K/cumm [facility] Lymphocyte abs 2.4 0.8 - 3.3 K/cumm [facility] Monocyte abs 0.5 0.2 - 0.8 K/cumm [facility] Eosinophil abs 0.2 0.0 - 0.5 K/cumm [facility] Basophil abs 0.1 0.0 - 0.1 K/cumm [facility] Neutrophil pct 62.7 % [facility] Comment: Interpretive Data Percent cell count reference ranges are not reported, since discordance with absolute values may lead to misinterpretation of CBC data. Current Interpretive Data was last revised on 2017. Imm gran pct 0.2 % [facility] Comment: Interpretive Data Percent cell count reference ranges are not reported, since discordance with absolute values may lead to misinterpretation of CBC data. Current Interpretive Data was last revised on 2017. Lymphocyte pct 28.4 % [facility] Comment: Interpretive Data Percent cell count reference ranges are not reported, since discordance with absolute values may lead to misinterpretation of CBC data. Current Interpretive Data was last revised on 2017. Monocyte pct 6.1 % [facility] Comment: Interpretive Data Percent cell count reference ranges are not reported, since discordance with absolute values may lead to misinterpretation of CBC data. Current Interpretive Data was last revised on 2017. Eosinophil pct 1.9 % [facility] Comment: Interpretive Data Percent cell count reference ranges are not reported, since discordance with absolute values may lead to misinterpretation of CBC data. Current Interpretive Data was last revised on 2017. Basophil pct 0.7 % [facility] Comment: Interpretive Data Percent cell count reference ranges are not reported, since discordance with absolute values may lead to misinterpretation of CBC data. Current Interpretive Data was last revised on 2017. Blood 09/22/2023 11:1 1 AM CDT 09/22/2023 11:18 AM CDT [employer] LAB BLOOD ORDERABLES Final Res ult Performing Organization Address [facility] de Phone Number [address] [place] [address] * Antibody screen (09/22/2023 11:11 AM CDT) Kaity, indirect, Gel Interpretation Negative ABSC Blood 09/22/2023 11:1 1 AM CDT 09/22/2023 11:16 AM CDT Narrative OLIVIA - 09/22/2023 11:52 AM CDT Is this test being ordered in advance for a procedure?->Yes Expected date of procedure:->09/15/23 Has the patient been transfused in the past 3 months?->No Has the patient been in the past 3 months?->No [employer] LAB BLOOD BANK TEST ORDERABLES Final Result Performing Organization Address [facility] Co de Phone Number [address] [place] [address] * ABO/Rh (09/22/2023 11:11 AM CDT) Pathologist [facility] ABO/Rh A Positive Blood 09/22/2023 11:1 1 [...] LAB BLOOD BANK TEST ORDERABLES Final Result [facility] [address] [facility] Department [place] [address] * (ABNORMAL) Comprehensive metabolic panel (09/22/2023 11:11 AM CDT) Pathologist [facility] Sodium 138 135 - 145 mmol/L Potassium, pl 4.3 3.3 - 4.9 mmol/L [facility] Chloride 101 97 - 110 mmol/L [facility] CO2 21(L) 22 - 32 mmol/L [facility] Anion gap 16(H) 2 - 15 mmol/L [facility] BUN 22 6 - 25 mg/dL [facility] Creatinine 1.04 0.60 - 1.10 mg/dL [facility] Glucose 153 70 - 199 mg/dL [facility] Comment: Interpretive Data Fasting glucose >/= 126 [...] 2022. Calcium 10.3 8.5 - 10.3 mg/dL [facility] Bilirubin, total 0.3 0.1 - 1.2 mg/dL [facility] Protein, pl 7.2 6.5 - 8.5 g/dL [facility] Albumin 4.6 3.5 - 5.0 g/dL [facility] Alk phos 86 40 - 130 Units/L [facility] ALT 26 7 - 45 Units/L [facility] AST 33 10 - 45 Units/L [facility] Blood 09/22/2023 11:1 1 AM CDT 09/22/2023 11:18 AM CDT [employer] LAB BLOOD ORDERABLES Final Res ult Performing Organization Address City/[facility] Co de Phone Number OLIVIA [address] [place], [place] [id number] * (ABNORMAL) CBC with auto differential (09/22/2023 11:11 AM CDT) WBC 8.4 3.8 - 9.9 K/cumm Hgb 13.0 11.9 - 15.5 g/dL [facility] Hct 41.6 35.6 - 45.5 % [facility] Plt 282 150 - 400 K/cumm [facility] MPV 10.5 9.1 - 12.3 fL [facility] RBC 4.79 3.90 - 5.20 M/cumm [facility] MCV 86.8 81.3 - 96.4 fL [facility] MCH 27.1 27.1 - 33.3 pg [facility] MCHC 31.3(L) 32.3 - 35.7 g/dL [facility] RDW CV 14.8 11.1 - 14.9 % [facility] RDW SD 47.0 35.7 - 48.1 fL [facility] NRBC abs 0.00 0.00 - 0.01 K/cumm [facility] Blood 09/22/2023 11:1 1 AM CDT 09/22/2023 11:18 AM CDT [employer] LAB BLOOD ORDERABLES Final Res ult Performing Organization Address City/[facility]/ZIP Co de Phone Number OLIVIA [address] [place] [address] * (ABNORMAL) Hemoglobin A1c (09/22/2023 11:11 AM CDT) Hgb A1C 7.4(H) 4.0 - 5.6 % Estimated Average Glucose 166 mg/dL [facility] [place] Comment: The ADA recommends reporting an estimated Average Glucose (eAG) with all Hemoglobin A1c results using the equation derived from a study of 507 normal and diabetic adults. ??Minority populations were underrepresented and children were not included. ?? (Diabetes Care 31:4957-1806, 2007). ??The eAG is not equivalent to a fasting glucose. Blood 09/22/2023 11:1 1 AM CDT 09/22/2023 11:18 AM CDT [employer] LAB BLOOD ORDERABLES Final Res ult Performing Organization Address [facility] Co de Phone Number [address] [place] [address] * Protime-INR (09/22/2023 11:11 AM CDT) PT [...] 1 AM CDT 09/22/2023 11:18 AM CDT [employer] DO LAB BLOOD ORDERABLES Final Res ult Performing Organization Address [facility] Co de Phone Number [place] [address] [facility] [place] [address] * (ABNORMAL) Nicotine metabolite screen, urine (09/22/2023 11:11 AM CDT) Nicotine, ur >1200(H) <5.0 ng/mL [facility] Cotinine, ur >1200(H) <5.0 ng/mL [facility] Anabasine ur <2.0 <2.0 ng/mL [facility] Comment: ADDITIONAL INFORMATION This test was developed and its performance characteristics determined by [facility] in a manner consistent with CLIA requirements. This test has not been cleared or approved by the U.S. Food and Drug Administration. Test Performed by: [facility] Laboratories - [facility] [address] [place] [address] Seater Grinder: Nilsa Rendon Ph.D.; CLIA# [id number] Nornicotine, ur 31(H) <2.0 ng/mL OL[facility]IA Urine 09/22/2023 11:1 1 AM CDT 09/22/2023 12:30 PM CDT Regi Khan DO LAB URINE ORDERABLES Final Res ult OLIVIA [address] [facility] Department [place] [address] [facility] * Infection Prevention MRSA Only (Staphylococcus aureus) PCR Nasal (09/22/2023 11:11 AM CDT) Pathologist [facility] PCR Scrn, Methicillin resistant Staphylococcus aureus (MRSA) Not Detected Not Detected Comment: Interpretive Data Testing performed using Nucleic Acid Amplification with the [employer] Xpert MRSA NxG Assay. This assay detects target DNA from mecA, mecC and the SCCmec insertion site of Staphylococcus aureus using Real-Time PCR and has been cleared by the FDA. Performance characteristics have been verified by the [facility]. Current Interpretive Data was last revised on 2022 Nasal 09/22/2023 11:1 1 AM CDT 09/22/2023 11:17 AM CDT Regi Khan DO LAB MICROBIOLOGY - GENERAL ORD ERABLES Final Result [facility] Department [place] [address] * ECG 12 lead (09/22/2023 11:02 AM CDT) Ventricular Rate EKG/Min 71 BPM [facility] Atrial Rate [address] [facility] MT-Interval (MSEC) [address] [facility] QRS-Interval (MSEC) [address] [facility] QT-Interval (MSEC) [address] [facility] QTc [address] [facility] P [place] [address] [facility] R [place] -[address] [facility] T [place] [address] [facility] Diagnosis Normal sinus rhythm Normal ECG No previous ECGs available Confirmed by SULTAN JOE M.D. ([id number]) on 09/22/2023 5:22:[address] [facility] 09/22/2023 11:0 2 AM CDT 09/22/2023 5:22 PM CDT Almita Ramirez STORM WINDOW INSTALLER ECG ORDERABLES Final Resu lt [facility] documented in this encounter Visit Diagnoses Diagnosis [...] 08/27/2023 added in this encounter Care Teams School Office Assistant Relationship Specialty Start Date End Date Eron Holliday NP [address] [place] [address] PCP - General Pain Management 07/15/22 Marialuisa Tyson NP [address] [place] [address] Nurse Practitioner Endocrinology Diabetes & Metabolism 09/22/23 Leobardo Bhagat MD [address] [place] [address] [address] Consulting Physician Nephrology 09/22/23 [place] [address] [address] Consulting Physician Cardiovascular Disease 09/22/23 documented as of this encounter
--- OUTSIDE RECORDS SUMMARY | 2024-03-03 17:36 | XMS_ITS | Encounter Summary ---
Author Organization [facility] Healthcare Address [address] [place] [address] Care Team Providers Care Coffee Urn Attendant Name Role Phone Eron Holliday NP Primary Care Provider [phone]- [phone] Reason for Referral * Procedure (Routine) - Pending Review Specialty Diagnoses / Procedures Referred By Claudette t Referred To Contact Diagnoses Primary osteoarthritis of right knee Procedures Large Joint (Hip, Knee, Shoulder) Injection: R knee Regi Khan DO [address] [place] [address] [place] [address] Phone: tel: fax: [facility] Referral ID Status Reason Start Date Expiration Date V isits Requested Visits Authorized [id number] Pending Review 02/21/2023 03/22/2024 1 1 SELOR AT LAW Reason for Visit * Reason Comments Injections Euflexxa #2 Encounter Details Date Type Department Care Team (Latest Contact Info) Description 02/21/2023 9:30 AM COUNSELOR AT LAW Clinical Support [facility] Orthopedics and Sports Medicine [address] [place] [phone] Regi Khan DO [address] [place] [address] Primary osteoarthritis of right knee [...] on file Legal Sex Female 8:53 AM COUNSELOR AT LAW Gender Identity Female 12/26/2023 10:11 PM CDT Sexual Orientation Straight 12/26/2023 10 :11 PM CDT documented as of this encounter Last Filed Vital Signs Vital Sign Reading Time Taken Comments Blood Pressure - - Pulse - - Temperature - - Respiratory Rate - - Oxygen Saturation - - Inhaled Oxygen Concentration - - Weight 99.8 kg (220 lb) 02/21/2023 9:14 AM COUNSELOR AT LAW Height 165.1 cm (5' 5 ) 02/21/2023 9:14 AM COUNSELOR AT LAW Body Mass Index 36.61 02/21/2023 9:14 AM COUNSELOR AT LAW documented in this encounter Progress Notes * [...] medical history of Anxiety, Arthritis, Depression, Diabetes ([facility]), Dizziness, GERD (gastroesophageal reflux disease), High blood pressure, Type 1 diabetes mellitus ([facility]) (08/04/2018), Uncontrolled type 2 diabetes mellitus with hyperglycemia ([facility]) (03/14/2017), and Uncontrolled type 2diabetes mellitus with hyperglycemia, with long-term current use of insulin ([facility]) (04/03/2017). PAST SURGICAL HISTORY She has no past surgical history on file. MEDICATIONS She has a current medication list which includes the following prescription(s): alcohol swabs, aspirin, atorvastatin, blood-glucose meter, buspirone, cetirizine, cholecalciferol, citalopram, clopidogrel, cyclobenzaprine, dexcom g6 migratory farm hand, dexcom g6 transmitter, dexcom g7 sensor, empagliflozin, [...] the series. 0 Regi Khan DO 02/21/2023 SELOR AT LAW documented in this encounter Plan of Treatment Not on file documented as of this encounter Procedures Procedure Name Priority Date/Time Associated Diagnosis Comments GA ARTHROCENTESIS ASPIR&/INJ MAJOR JT/BURSA W/O US Routine 02/21/2023 9:30 AM COUNSELOR AT LAW Primary osteoarthritis of right knee documented in this encounter Results * GA ARTHROCENTESIS ASPIR&/INJ MAJOR JT/BURSA W/O US (02/21/2023 9:30 AM COUNSELOR AT LAW) Narrative Regi Khan DO - 02/21/2023 9:30 AM COUNSELOR AT LAW Regi Khan DO ? 02/21/2023 ??9:57 AM [...] of right knee Given 02/21/2023 9:30 AM COUNSELOR AT LAW 20 mg Right Knee documented in this encounter Care Teams Coffee Urn Attendant Relationship Specialty Start Date End Date Eron Holliday NP [address] [place] [address] [place] [address] PCP - General Pain Management 07/15/22 documented as of this encounter
--- OUTSIDE RECORDS SUMMARY | 2024-03-03 17:36 | XMS_ITS | Encounter Summary ---
Author Organization [facility] Healthcare Address [address] [place] [address] Care Team Providers Care Automatic Clipper Name Role Phone Eron Holliday NP Primary Care Provider [phone]- [phone] Reason for Referral * Physical Therapy (Routine) - Closed Specialty Diagnoses / Procedures Referred By Claudette smith Referred To Contact Physical Therapy Diagnoses Primary osteoarthritis of right knee Regi Khan DO [address] [place] [address] Phone: tel: fax: [facility] OP Physical Therapy [address] [place] [address] Phone: tel: fax: Referral ID Status Reason Start Date Expiration Date V isits Requested Visits Authorized [id number] Closed Specialty Services Required 09/08/2023 09/17/2024 1 1 Question Answer PTRFR PT Evaluate and Treat Therapy options discussed with patient? Yes Location provided for therapy services is: Patient requested/Patient preferred Please select the performing region: [facility] [[id number]] Please select the performing department: [facility] ON OP PT [[id number]] # of visits: 1 Comments Pre op total joint evaluation Encounter Details Date Type Department Care Team (Late st Contact Info) Description 08/19/[address] [facility] Medical [facility] Orthopedics and Sports Medicine [address] [facility] [address] [place] [address] Regi Khan DO [address] [place] [address] [facility] [address] [place] [address] Primary osteoarthritis of right knee (Primary Dx) Social History Tobacco Use Types Packs/Day Years Used Date Smoking Tobacco: Former Cigarettes Q uit: 03/20/2020 Smokeless Tobacco: Never Personal Safety Answer Date Recorded Getting School Help Needed Not on file 02/13 Comments No Sex and Gender Information Value Date Recorded Sex Assigned at Not on file Legal Sex Female 8:53 AM MACHINE HEDDLE CLEANER Gender Identity Female 12/26/2023 10:11 PM CDT Sexual Orientation Straight 12/26/2023 10 :11 PM CDT 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
--- OUTSIDE RECORDS SUMMARY | 2024-03-03 17:36 | XMS_ITS | Encounter Summary ---
Author Organization [facility] Healthcare Address [address] [place] [address] Care Team Providers Care Kilnman Name Role Phone Eron Holliday NP Primary Care Provider +1- [phone] Encounter Details Date Type Department Care Team (Late st Contact Info) Description 04/28/2023 Telephone [facility] Diabetes Endocrine [facility] of [address] [place] [address] Marialuisa Daniel, WAREHOUSE INVENTORY CLERK [address] [facility] [address] [place] [address] Social History Tobacco Use Types Packs/Day Years Used Date Smoking Tobacco: Former Cigarettes Q uit: 03/20/2020 Smokeless Tobacco: Never Personal Safety Answer Date Recorded Getting School Help Needed Not on file 02/13 Comments No Sex and Gender Information Value Date Recorded Sex Assigned at Not on file Legal Sex Female 8:53 AM ELECTRICAL INSTRUMENT TECHNICIAN Gender Identity Female 12/26/2023 10:11 PM CDT Sexual Orientation Straight 12/26/2023 10 :11 PM CDT Occupation Industry Job Start Date Job End Date [employer] Not on file Not on file Not [...] understanding. Prescription was sent to the pharmacy. TRICAL INSTRUMENT TECHNICIAN documented in this encounter Plan of Treatment [...] documented as of this encounter Care Teams Kilnman Relationship Specialty Start Date End Date Eron Holliday NP [address] [facility] [place] [address] PCP - General Pain Management 07/15/22 documented as of this encounter
--- OUTSIDE RECORDS SUMMARY | 2024-03-03 17:36 | XMS_ITS | Encounter Summary ---
Author Organization [facility] Healthcare Address [address] [place] [address] Care Team Providers Care Senior Information Security Analyst Name Role Phone Eron Holliday NP Primary Care Provider [phone]- [phone] Marialuisa Daniel NP Unavailable [phone] Leobardo Bhagat MD Unavailable [phone] Florin Dixon MD Unavailable Encounter Details Date Type Department Care Team (Late st Contact Info) Description 09/22/2023 Orders Only [facility] PreAdmission Testing [address] [place] [address] Lashay Garduno, RN Social History [...] on file Legal Sex Female 8:53 AM CARPENTER REPAIR Gender Identity Female 12/26/2023 10:11 PM CDT Sexual Orientation Straight 12/26/2023 10 :11 PM CDT Occupation Industry Job Start Date Job End Date [employer] Not on file Not on file Not on file documented as of this encounter Plan of Treatment Not on file documented as of this encounter Visit Diagnoses Not on filedocumented in this encounter Care Teams Senior Information Security Analyst Relationship Specialty Start Date End Date Eron Holliday NP [address] [place] [address] PCP - General Pain Management 07/15/22 Marialuisa Daniel NP [address] [place] [address] Nurse Practitioner Endocrinology Diabetes & Metabolism 09/22/23 Leobardo Bhagat MD [address] [place] [address] Consulting Physician Nephrology 09/22/23 [place] [address] [address] Consulting Physician Cardiovascular Disease 09/22/23 documented as of this encounter
--- OUTSIDE RECORDS SUMMARY | 2024-03-03 17:36 | XMS_ITS | Encounter Summary ---
Author Organization [facility] Healthcare Address [address] [place] [address] Care Team Providers Care Funeral Director Name Role Phone Eron Holliday NP Primary Care Provider [phone]- [phone] Reason for Visit * Diagnostic Imaging (Routine) - Pending Review Specialty Diagnoses / Procedures Referred By Claudette smith Referred To Contact Diagnoses Right hip pain Procedures XR Hip Right 2 or 3 Views W Pelvis XR Hip Right 1 View W Pelvis Regi Khan DO [address] [address] Phone: tel: fax: [address] [address] Referral ID Status Reason Start Date Expiration Date V isits Requested Visits Authorized [id number] Pending Review 02/27/2023 03/28/2024 1 1 Encounter Details Date Type Department Care Team (Latest Contact Info) Description 02/27/2023 8:15 AM GALVANIZER - 02/27/2023 11:59 PM GALVANIZER Hospital Encounter [facility] MOB 1 DIAG IMG [address] [place] [address] Right hip pain Discharge Disposition: Discharge [...] on file Legal Sex Female 8:53 AM GALVANIZER Gender Identity Female 12/26/2023 10:11 PM CDT [...] 10 mg tablet 10/18/2022 4 Dexcom G6 Clothes Presser miscIndications:T ype 2 diabetes mellitus with hyperglycemia, [...] Read Routine (OP Routine) 02/27/2023 8:31 AM GALVANIZER Right hip pain documented in this encounter Results * XR Hip Right 2 or 3 Views W Pelvis (02/27/2023 8:31 AM GALVANIZER) Anatomical Region Laterality Modality Lower Extremities, Hip, Pelvis Right C omputed Radiography 02/28/2023 12:4 1 PM GALVANIZER Narrative 02/28/2023 1:20 PM GALVANIZER EXAM DESCRIPTION: XR HIP RIGHT 2-3 VIEW [...] PM T: ??02/28/2023 1:20 PM Report ID: [id number] Reading Location: ??[id number] Procedure Note Lamont Hidalgo MD - 02/28/2023 [...] Lamont Hidalgo M.D. MF: [id number] Report ID: [id number] Reading Location: [id number] us Regi Khan DO IMG XR PROCEDURES Final Result documented in this encounter Visit Diagnoses Diagnosis Right hip pain Pain in joint, pelvic region and thigh documented in this encounter Care Teams Funeral Director Relationship Specialty Start Date End Date Eron Holliday NP [address] [place] [address] [place] [address] PCP - General Pain Management 07/15/22 documented as of this encounter
--- OUTSIDE RECORDS SUMMARY | 2024-03-03 17:36 | XMS_ITS | Encounter Summary ---
Author Organization [facility] Healthcare Address [address] [place] [address] Care Team Providers Care Leather Goods Assembler Name Role Phone Eron Holliday NP Primary Care Provider +1- [phone] Reason for Referral * Procedure (Routine) - Authorized Specialty Diagnoses / Procedures Referred By Claudette t Referred To Contact Diagnoses Primary osteoarthritis of right knee Procedures Large Joint (Hip, Knee, Shoulder) Injection: R knee Regi Khan DO [address] [place] [address] Phone: tel: fax: [facility] Medical Group Referral ID Status Reason Start Date Expiration Date V isits Requested Visits Authorized [id number] Authorized 02/27/2023 03/28/2024 1 1 UNT SPECIALIST Reason for Visit * Reason Comments Pain Pain Encounter Details Date Type Department Care Team (Latest Contact Info) Description 02/27/2023 9:30 AM ACCOUNT SPECIALIST Clinical Support [facility] Medical Group Orthopedics and Sports Medicine [address] [place] [phone] Regi Khan DO [address] [place] [place] [address] Right hip pain (Primary Dx); Greater trochanteric [...] on file Legal Sex Female 8:53 AM ACCOUNT SPECIALIST Gender Identity Female 12/26/2023 10:11 PM [...] medical history of Anxiety, Arthritis, Depression, Diabetes ([facility]), Dizziness, GERD (gastroesophageal reflux disease), High blood pressure, Type 1 diabetes mellitus ([facility]) (08/04/2018), Uncontrolled type 2 diabetes mellitus with hyperglycemia ([facility]) (03/14/2017), and Uncontrolled type 2diabetes mellitus with hyperglycemia, with long-term current use of insulin ([facility]) (04/03/2017). PAST SURGICAL HISTORY She has no past surgical history on file. MEDICATIONS She has a current medication list which includes the following prescription(s): alcohol swabs, aspirin, atorvastatin, blood-glucose meter, buspirone, cetirizine, cholecalciferol, citalopram, clopidogrel, cyclobenzaprine, dexcom g6 medical accounts receivable specialist, dexcom g6 transmitter, dexcom g7 sensor, empagliflozin, [...] right knee osteoarthritis. Regi Khan DO 02/27/2023 UNT SPECIALIST documented in this encounter Plan of Treatment Not on file documented as of this encounter Procedures Procedure Name Priority Date/Time Associated Diagnosis Comments VT ARTHROCENTESIS ASPIR&/INJ MAJOR JT/BURSA W/O US Routine 02/27/2023 9:30 AM ACCOUNT SPECIALIST Primary osteoarthritis of right knee documented in this encounter Results * VT ARTHROCENTESIS ASPIR&/INJ MAJOR JT/BURSA W/O US (02/27/2023 9:30 AM ACCOUNT SPECIALIST) Narrative Regi Khan DO - 02/27/2023 9:30 AM ACCOUNT SPECIALIST Regi Khan, DO ? 02/27/2023 ??9:09 AM [...] of right knee Given 02/27/2023 9:30 AM ACCOUNT SPECIALIST 20 mg Right Knee documented in this encounter Orders Medications Ordered That Marcel ht Not Have Been Administered Count Last Ordered Date First Ordered Date sodium hyaluronate (viscosup ) (EUFLEXXA) 10 mg/mL(mw 2.4 -3.6 million) injection 20 mg 1 02/27/2023 documented in this encounter Care Teams Leather Goods Assembler Relationship Specialty Start Date End Date Eron Holliday NP [address] [facility] [place] [address] PCP - General Pain Management 07/15/22 documented as of this encounter
--- OUTSIDE RECORDS SUMMARY | 2024-03-03 17:36 | XMS_ITS | Encounter Summary ---
Author Organization [facility] Address [address] [place] [address] Care Team Providers Care Human Services Case Manager Name Role Phone Eron Acevedo NP Primary Care Provider +1- [phone] Reason for Visit * Reason Comments PT [...] of right infraspinatus tendon Lamar Slater, CHRISTOPHER [address] [address] Phone: tel: fax: [address] [phone] Referral ID Status Reason Start Date Expiration Date V isits Requested Visits Authorized [id number] Closed Evaluate and Treat 05/08/2023 05/07/2024 16 12 Encounter Details Date Type Department Care Team (Late st Contact Info) Description 05/20/2023 10:45 AM CDT Therapy [facility] Medical Office Bldg 1 OP Physical Therapy [address] [place] [address] Ninness, Misti, SOLDERING INSPECTOR Numbness and tingling of right upper extremity [...] on file Legal Sex Female 8:53 AM GUILLOTINE OPERATOR Gender Identity Female 12/26/2023 10:11 PM CDT Sexual Orientation Straight 12/26/2023 10 :11 PM CDT Occupation Industry Job Start Date Job End Date [employer] Not on file Not on file Not on file documented as of this encounter Progress Notes * Misti Sepulveda, SOLDERING INSPECTOR - 05/20/2023 10:45 AM CDT Images from [...] progress towards functional goals. Misti Sepulveda PTA [facility] ATTENTION PHYSICIAN If you [...] tendon documented in this encounter Care Teams Human Services Case Manager Relationship Specialty Start Date End Date Eron Acevedo NP [address] [place] [address] PCP - General Pain Management 07/15/22 documented as of this encounter
--- OUTSIDE RECORDS SUMMARY | 2024-03-03 17:36 | XMS_ITS | Encounter Summary ---
Author Organization [facility] Healthcare Address [address] [place] [address] Care Team Providers Care Mat Roller Name Role Phone Eron Holliday NP Primary Care Provider +1- [phone] Encounter Details Date Type Department Care Team (Late st Contact Info) Description 05/09/[address] [facility] Medical Office Bldg 1 OP Physical Therapy [address] [place] [address] Social History Tobacco Use Types Packs/Day Years Used Date Smoking Tobacco: Former Cigarettes Q uit: 03/20/2020 Smokeless Tobacco: Never Personal Safety Answer Date Recorded Getting School Help Needed Not on file 02/13 Comments No Sex and Gender Information Value Date Recorded Sex Assigned at Not on file Legal Sex Female 8:53 AM SERVER CASHIER Gender Identity Female 12/26/2023 10:11 PM CDT Sexual Orientation Straight 12/26/2023 10 :11 PM CDT Occupation Industry Job Start Date Job End Date [employer] Not on file Not on file Not on file documented as of this encounter Plan of Treatment Not on file documented as of this encounter Visit Diagnoses Not on filedocumented in this encounter Care Teams Mat Roller Relationship Specialty Start Date End Date Eron Holliday NP [address] [facility] [place] [address] PCP - General Pain Management 07/15/22 documented as of this encounter
--- OUTSIDE RECORDS SUMMARY | 2024-03-03 17:36 | XMS_ITS | Encounter Summary ---
Author Organization [facility] Healthcare Address [address] [place] [address] Care Team Providers Care Javascript Application Developer Name Role Phone Eron Holliday NP Primary Care Provider +1- [phone] Reason for Visit * Reason Comments PT [...] of right infraspinatus tendon Lamar Slater, CHRISTOPHER [address] [address] Phone: tel: fax: [address] [phone] Referral ID Status Reason Start Date Expiration Date V isits Requested Visits Authorized [id number] Closed Evaluate and Treat 05/08/2023 05/07/2024 16 12 Encounter Details Date Type Department Care Team (Late st Contact Info) Description 05/08/2023 11:00 AM CDT Therapy [facility] Medical Office Bldg 1 OP Physical Therapy [address] [place] [address] Jesse Pride, PT Chronic neck pain; [...] on file Legal Sex Female 8:53 AM PERIPHERAL VASCULAR TECH Gender Identity Female 12/26/2023 10:11 PM CDT [...] History: Diagnosis Date Anxiety Arthritis Depression Diabetes ([facility]) Dizziness GERD (gastroesophageal reflux disease) High blood pressure Type 1 diabetes mellitus ([facility]) 08/04/2018 Uncontrolled type 2 diabetes mellitus with hyperglycemia ([facility]) 03/14/2017 Uncontrolled type 2 diabetes mellitus with hyperglycemia, with long-term current use of insulin ([facility]) 04/03/2017 Past Surgical History: Procedure Laterality Date [...] Denies prior neck issues. 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 Jesse Pride, PT [facility] ATTENTION PHYSICIAN If you [...] 1 documented in this encounter Care Teams Javascript Application Developer Relationship Specialty Start Date End Date Eron Holliday NP 50 [facility] [place] [address] PCP - General Pain Management 07/15/22 documented as of this encounter
--- OUTSIDE RECORDS SUMMARY | 2024-03-03 17:36 | XMS_ITS | Encounter Summary ---
Author Organization [facility] Address [address] [place] [address] Care Team Providers Care Project Manager Interior Design Name Role Phone Eron Holliday NP Primary Care Provider +1- [phone] Reason for Referral * Physical Therapy (Routine) [...] of right infraspinatus tendon Lamar Slater NP [address] [facility] [address] [address] Phone: tel: fax: [address] [phone] Referral ID Status Reason Start Date Expiration Date V isits Requested Visits Authorized [id number] Closed Evaluate and Treat 05/08/2023 05/07/2024 16 12 Question Answer PTRFR PT Evaluate and Treat Therapy options discussed with patient? Yes Location provided for therapy services is: Patient requested/Patient preferred Please select the performing region: [facility] [185] # of visits: 12 Comments Evaluate and treat 2-3 times week for 6 weeks; modalities of choice including dry needling and cervical traction EAR SPECTROSCOPIST * Neurology (Routine) - Closed Specialty Diagnoses / Procedures Referred By Claudette smith Referred To Contact Diagnoses Numbness and tingling of right upper extremity Procedures EMG/NCV - Lamar Slater NP [address] [place] [address] [address] THAK[address] [place] [address] Phone: tel: fax: [address] [phone] Referral ID Status Reason Start Date Expiration Date Visits Re quested Visits Authorized [id number] Closed 04/16/2023 05/15/2024 1 1 EAR SPECTROSCOPIST * Diagnostic Imaging (Routine) - Closed Specialty Diagnoses / Procedures Referred By Claudette smith Referred To Contact Diagnoses Neck pain Procedures XR Spine Cervical W Flexion And Extension 6 or More Views Lamar Slater NP [address] [place] [address] DR THAK[address] [place] [address] Phone: tel: fax: [address] [phone] Referral ID Status Reason Start Date Expiration Date Visits Re quested Visits Authorized [id number] Closed 04/04/2023 05/03/2024 1 1 EAR SPECTROSCOPIST Reason for Visit * Reason Comments Pain Pain Encounter Details Date Type Department Care Team (Late st Contact Info) Description 04/16/2023 9:30 AM NUCLEAR SPECTROSCOPIST Office Visit [facility] Medical Group Orthopedics and Sports Medicine [address] [place] [phone] Lamar Slater NP [address] [place] [address] [address] Chronic neck pain; Arthropathy of cervical facet [...] file Legal Sex Female 8:53 AM NUCLEAR SPECTROSCOPIST Gender Identity Female 12/26/2023 10:11 PM CDT Sexual Orientation Straight 12/26/2023 10 :11 PM CDT Occupation Industry Job Start Date Job End Date [employer] Not on file Not on file Not on file documented as of this encounter Last Filed Vital Signs Vital Sign Reading Time Taken Comments Blood Pressure - - Pulse - - Temperature - - Respiratory Rate - - Oxygen Saturation - - Inhaled Oxygen Concentration - - Weight 99.8 kg (220 lb) 04/16/2023 9:33 AM NUCLEAR SPECTROSCOPIST Height 165.1 cm (5' 5 ) 04/16/2023 9:33 AM NUCLEAR SPECTROSCOPIST Body Mass Index 36.61 04/16/2023 9:33 AM NUCLEAR SPECTROSCOPIST documented in this encounter Progress Notes * [...] on an insulin pump. 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 There is oynw-izaxyea-qbsr-right cervical facet osteoarthritis. Right shoulder: No acute fractures are identified. Alignment is normal. There is mild glenohumeral and moderate acromioclavicular joint osteoarthritis. Infraspinatus calcific tendinitis is present. IMPRESSION: Mild C4-C5 and moderate C5-C7 degenerative disc disease with gtjd-rxiiyzu-sumo-right cervical facetosteoarthritis. Left-sided C4-C5 and right-sided C6-C7 [...] to the fifth finger, and exhibit full supervisor braiding strength Perfusion: 2+ radial and ulnar pulses. Fingers warm to touch with capillary refill < 2 seconds. Tinels Sign does not produce a numbness or tingling sensation in the thumb, index or middle finger.. Right Shoulder examination: Inspection: The skin is intact across the shoulders and upper extremities without clinical signs ofinfection, no ecchymosis, no overt evidence of muscle atrophy, no masses. Cvyry-ob-vubiln: 170?? of forward flexion actively and passively. [...] (four) times a day before meals and [id number], Disp: 400 each, Rfl: 3 aspirin 81 [...] mouth daily, Disp: , Rfl: Dexcom G6 Printer Assistant misc, USE TO TEST BLOOD SUGAR DIRECTED, [...] History: Diagnosis Date Anxiety Arthritis Depression Diabetes ([facility]) Dizziness GERD (gastroesophageal reflux disease) High blood pressure Type 1 diabetes mellitus ([facility]) 08/04/2018 Uncontrolled type 2 diabetes mellitus with hyperglycemia ([facility]) 03/14/2017 Uncontrolled type 2 diabetes mellitus with hyperglycemia, with long-term current use of insulin ([facility]) 04/03/2017 Past Surgical History: Past Surgical History: Procedure Laterality Date CARPAL TUNNEL RELEASE SECTION ELBOW SURGERY KNEE ARTHROSCOPY TONSILLECTOMY Social History: Social History Tobacco Use Smoking status: Former Current packs/day: 0.00 Types: Cigarettes Quit date: 03/20/2020 Years since quittin.0 Smokeless tobacco: Never Substance and Sexual Activity Drug use: Never Sexual activity: None Alcohol Use: Not At Risk (12/30/2018) Received from [facility] Frequency of Alcohol Consumption: Never Average Number of Drinks: Not on file Frequency of Binge Drinking: Not on file Vital Signs: Height 165.1 cm (5' 5 ), weight 99.8 kg (220 lb), not currently . BMI Readings from Last 1 Encounters: 04/16/23 36.61 kg/m?? Lamar Slater NP EAR SPECTROSCOPIST documented in this encounter Plan of Treatment [...] 2 or More Views (04/16/2023 9:18 AM NUCLEAR SPECTROSCOPIST) Anatomical Region Laterality Modality Upper Extremities, Shoulder Right Comp uted Radiography 04/16/2023 7:46 PM NUCLEAR SPECTROSCOPIST Narrative 04/16/2023 7:51 PM NUCLEAR SPECTROSCOPIST EXAM DESCRIPTION: XR SHOULDER RIGHT 2 OR [...] and right-sided C6-C7 foraminal impingement. ??There is gbbl-nvgcmvd-swms-right cervical facet osteoarthritis. Right shoulder: No acute fractures are identified. ??Alignment is normal. ??There is mild glenohumeral and moderate acromioclavicular joint osteoarthritis. ?? Infraspinatus calcific tendinitis is present. IMPRESSION: Mild C4-C5 and moderate C5-C7 degenerative disc disease with luhk-ghbjibg-qwhy-right cervical facet osteoarthritis. Left-sided C4-C5 and right-sided C6-C7 foraminal impingement. Mild right glenohumeral and moderate acromioclavicular joint osteoarthritis. Right infraspinatus calcific tendinitis. THIS IS AN ELECTRONICALLY VERIFIED FINAL REPORT 04/16/2023 7:51 PM - Electronically signed by ??Lamont Hidalgo M.D. D: ??04/16/2023 7:51 PM T: Report ID: [id number] Reading Location: ??[id number] Procedure Note Lamont Hidalgo MD - 04/16/2023 [...] and right-sided C6-C7 foraminal impingement. There is uglk-nldpmxw-nuyc-right cervical facetosteoarthritis. Right shoulder: No acute fractures are identified. Alignment is normal. There is mild glenohumeral and moderate acromioclavicular joint osteoarthritis. Infraspinatus calcific tendinitis is present. IMPRESSION: Mild C4-C5 and moderate C5-C7 degenerative disc disease with gmhj-zljlajg-dwqc-right cervical facet osteoarthritis. Left-sided C4-C5 and right-sided C6-C7 foraminal impingement. Mild right glenohumeral and moderate acromioclavicular jointosteoarthritis. Right infraspinatus calcific tendinitis. THIS IS AN ELECTRONICALLY VERIFIED FINAL REPORT 04/16/2023 7:51 PM - Electronically signed by Lamont Hidalgo M.D. T: Report ID: [id number] Reading Location: [id number] Lamar Slater NP IMG XR PROCEDURES Final Res ult * XR Spine Cervical W Flexion And Extension 6 or More Views (04/16/2023 9:18 AM NUCLEAR SPECTROSCOPIST) Anatomical Region Laterality Modality Spine N/A Computed Radiogr aphy 04/16/2023 7:46 PM NUCLEAR SPECTROSCOPIST Narrative 04/16/2023 7:51 PM NUCLEAR SPECTROSCOPIST EXAM DESCRIPTION: XR SHOULDER RIGHT 2 OR [...] and right-sided C6-C7 foraminal impingement. ??There is tyui-mbllahj-wpsc-right cervical facet osteoarthritis. Right shoulder: No acute fractures are identified. ??Alignment is normal. ??There is mild glenohumeral and moderate acromioclavicular joint osteoarthritis. ?? Infraspinatus calcific tendinitis is present. IMPRESSION: Mild C4-C5 and moderate C5-C7 degenerative disc disease with birj-ccdmaag-yuuo-right cervical facet osteoarthritis. Left-sided C4-C5 and right-sided C6-C7 foraminal impingement. Mild right glenohumeral and moderate acromioclavicular joint osteoarthritis. Right infraspinatus calcific tendinitis. THIS IS AN ELECTRONICALLY VERIFIED FINAL REPORT 04/16/2023 7:51 PM - Electronically signed by ??Lamont Hidalgo M.D. D: ??04/16/2023 7:51 PM T: Report ID: [id number] Reading Location: ??[id number] Procedure Note Lamont Hidalgo MD - 04/16/2023 [...] and right-sided C6-C7 foraminal impingement. There is zbcf-rctthbu-vwhu-right cervical facetosteoarthritis. Right shoulder: No acute fractures are identified. Alignment is normal. There is mild glenohumeral and moderate acromioclavicular joint osteoarthritis. Infraspinatus calcific tendinitis is present. IMPRESSION: Mild C4-C5 and moderate C5-C7 degenerative disc disease with gwcy-nzkogvn-vfhk-right cervical facet osteoarthritis. Left-sided C4-C5 and right-sided C6-C7 foraminal impingement. Mild right glenohumeral and moderate acromioclavicular jointosteoarthritis. Right infraspinatus calcific tendinitis. THIS IS AN ELECTRONICALLY VERIFIED FINAL REPORT 04/16/2023 7:51 PM - Electronically signed by Lamont Hidalgo M.D. T: Report ID: [id number] Reading Location: [place] [address] Lamar Slater CHISEL MORTISER OPERATOR IMG XR PROCEDURES Final Res ult documented [...] documented as of this encounter Care Teams Project Manager Interior Design Relationship Specialty Start Date End Date Eron Holliday NP [address] [place] [address] PCP - General Pain Management 07/15/22 documented as of this encounter
--- OUTSIDE RECORDS SUMMARY | 2024-03-03 17:36 | XMS_ITS | Encounter Summary ---
Author Organization [facility] Healthcare Address [address] [place] [address] Care Team Providers Care Residence Director Name Role Phone Eron Holliday NP Primary Care Provider +1- [phone] Encounter Details Date Type Department Care Team (Late st Contact Info) Description 02/28/2023 Telephone [facility] Medical Group Diabetes [facility] [address] [place] [address] Marialuisa Daniel, QUILL CLEANING MACHINE OPERATOR [address] [address] Social History Tobacco Use Types Packs/Day Years Used Date Smoking Tobacco: Former Cigarettes Q uit: 03/20/2020 Smokeless Tobacco: Never Personal Safety Answer Date Recorded Getting School Help Needed Not on file 02/13 Comments No Sex and Gender Information Value Date Recorded Sex Assigned at Not on file Legal Sex Female 8:53 AM PRESIDENT AND CHIEF COMMERCIAL OFFICER Gender Identity Female 12/26/2023 10:11 PM CDT Sexual Orientation Straight 12/26/2023 10 :11 PM CDT documented as of this encounter Miscellaneous Notes * Telephone Encounter - Marialuisa Daniel NP - 02/28/2023 12:53 PM CST Called patient left message that prescription was sent for mounjaro. IDENT AND CHIEF COMMERCIAL OFFICER documented in this encounter Plan of Treatment Not on file documented as of this encounter Visit Diagnoses Not on filedocumented in this encounter Care Teams Residence Director Relationship Specialty Start Date End Date Eron Holliday NP [address] [place] [address] [place] [address] PCP - General Pain Management 07/15/22 documented as of this encounter
--- OUTSIDE RECORDS SUMMARY | 2024-03-03 17:36 | XMS_ITS | Encounter Summary ---
Author Organization [facility] Healthcare Address [address] [place] [address] Care Team Providers Care Route Sales Driver Name Role Phone Eron Holliday NP Primary Care Provider +1- [phone] Encounter Details Date Type Department Care Team (Late st Contact Info) Description 05/12/[address] [facility] Medical Group Orthopedics and Sports Medicine [address] [place] [phone] Charleen Moe MA Social History Tobacco Use Types Packs/Day Years Used Date Smoking Tobacco: Former Cigarettes Q uit: 03/20/2020 Smokeless Tobacco: Never Personal Safety Answer Date Recorded Getting School Help Needed Not on file 02/13 Comments No Sex and Gender Information Value Date Recorded Sex Assigned at Not on file Legal Sex Female 8:53 AM ELEVATOR DISPATCHER Gender Identity Female 12/26/2023 10:11 PM CDT Sexual Orientation Straight 12/26/2023 10 :11 PM CDT Occupation Industry Job Start Date Job End Date [employer] Not on file Not on file Not [...] filedocumented in this encounter Care Teams Route Sales Driver Relationship Specialty Start Date End Date Eron Holliday NP [address] [place] [address] [place] [id number] PCP - General Pain Management 07/15/22 documented as of this encounter
--- OUTSIDE RECORDS SUMMARY | 2024-03-03 17:36 | XMS_ITS | Encounter Summary ---
Author Organization formerly [facility] Address [address] [place] [address] Care Team Providers Care Beer Maker Name Role Phone Eron Holliday NP Primary Care Provider +1- [phone] Reason for Referral * MRI/CAT/PET Scan (Routine) - Closed Specialty Diagnoses / Procedures Referred By Claudette smith Referred To Contact Radiology Diagnoses Right cervical radiculopathy Foraminal stenosis of cervical region Arthropathy of cervical facet joint DDD (degenerative disc disease), cervical Anterolisthesis of cervical spine Procedures MRI Cervical Spine WO Contrast Lamar Slater NP [address] [place] [address] [address] Phone: tel: fax: [address] [phone] Referral ID Status Reason Start Date Expiration Date Visits Re quested Visits Authorized [id number] Closed 07/23/2023 07/22/2024 1 1 Reason for Visit * MRI/CAT/PET Scan (Routine) - Closed Specialty Diagnoses / Procedures Referred By Claudette smith Referred To Contact Radiology Diagnoses Right cervical radiculopathy Foraminal stenosis of cervical region Arthropathy of cervical facet joint DDD (degenerative disc disease), cervical Anterolisthesis of cervical spine Procedures MRI Cervical Spine WO Contrast Lamar Slater NP [facility] [address] OFE [address] [place] [address] Phone: tel: fax: [address] [phone] Referral ID Status Reason Start Date Expiration Date Visits Re quested Visits Authorized [id number] Closed 07/23/2023 07/22/2024 1 1 Encounter Details Date Type Department Care Team (Latest Contact Info) Description 08/07/2023 7:44 AM CDT - 08/07/2023 11:59 PM CDT Hospital Encounter [facility] MRI [address] [place] [address] Right cervical radiculopathy; Foraminal stenosis of [...] on file Legal Sex Female 8:53 AM AIR CONDITIONING MECHANIC INDUSTRIAL Gender Identity Female 12/26/2023 10:11 PM CDT Sexual Orientation Straight 12/26/2023 10 :11 PM CDT Occupation Industry Job Start Date Job End Date [employer] Not on file Not on file Not [...] (1,000 unit) tablet 10/18/2022 4 Dexcom G6 Child Care Cook miscIndications:T ype 2 diabetes mellitus with hyperglycemia, with long-term current use of insulin (HCC) USE TO TEST BLOOD SUGAR DIRECTED 1 each 1 08/22/2021 4 Dexcom G6 Transmitter deviceIndications :Type 2 diabetes mellitus with hyperglycemia, with long-term current use of insulin ([facility]) USE TO TEST BLOOD SUGAR [...] ??Moderate left and mild right facet arthropathy. ??Mygd-ff-vpxaxycn bilateral uncovertebral arthropathy. ??Mild bilateral neural foraminal stenosis. ??No significant spinal canal stenosis C5-C6: ?? Posterior disc osteophyte complex. ??Rceg-pp-ftpfolyq bilateral facet arthropathy. ??Moderate left and mild right uncovertebral arthropathy. ?? Moderate left neural foraminal stenosis. ??Stso-tl-kbswglix spinal canal stenosis C6-C7: ?? Posterior disc osteophyte complex moderate bilateral facet arthropathy. ??Severe right ??moderate bilateral uncovertebral arthropathy. ?? Moderate right and yvqc-wj-cdkasscb left neural foraminal stenosis. ??Moderate spinal canal [...] detailed level by level above. There is ixur-tp-yjlcixpt spinal canal stenosis at C5-C6 and moderate spinal canal stenosis at C6-C7 with multilevel neural foraminal stenosis, most pronounced and moderate on the left at C5-C6 and on the right at C6-C7. THIS IS AN ELECTRONICALLY VERIFIED FINAL REPORT 08/07/2023 3:11 PM - Electronically signed by ??Stephen Nguyen M.D. MZ D: ??08/07/2023 3:11 PM T: Report ID: [id number] Reading Location: ??[id number] Procedure Note Stephen Nguyen MD - 08/07/2023 [...] Moderate left and mild right facet arthropathy. Fuqn-gh-dclgdnjv bilateral uncovertebral arthropathy. Mild bilateral neural foraminal stenosis. No significantspinal canal stenosis C5-C6: Posterior disc osteophyte complex. Uefz-bb-fmeqykjk bilateralfacet arthropathy. Moderate left and mild right uncovertebral arthropathy. Moderate left neural foraminal stenosis. Rxlm-zh-erwxqtja spinal canal stenosis C6-C7: Posterior disc osteophyte complex moderate bilateral facet arthropathy. Severe right moderate bilateral uncovertebral arthropathy. Moderate right and zojg-qw-otgxlinf left neural foraminal stenosis.Moderate spinal canal stenosis C7-T1: Mild disc bulge. Mild facet and uncovertebral arthropathy. Mildleft neural foraminal stenosis. No significant spinal canal stenosis BASE OF BRAIN: No significant finding. UPPER THORACIC: Incompletely imaged. No significant spinal stenosis or foraminal stenosis. OTHER: No other significant finding. IMPRESSION: Multilevel cervical degenerative disc and joint disease, as detailed level by level above. There is frsx-ub-pguelvkq spinal canalstenosis at C5-C6 and moderate spinal canal stenosis at C6-C7 with multilevelneural foraminal stenosis, most pronounced and moderate on the left at C5-C6 andon the right at C6-C7. THIS IS AN ELECTRONICALLY VERIFIED FINAL REPORT 08/07/2023 3:11 PM - Electronically signed by Stephen ALLISON T: Report ID: [id number] Reading Location: [place] [address] Lamar Slater FIXED WING AIRCRAFT CREW CHIEF IMG MRI PROCEDURES Final Re sult documented in this encounter Visit Diagnoses Diagnosis Right cervical radiculopathy Foraminal stenosis of cervical region, left-sided C4-C5 and right-sided C6-C7 Arthropathy of cervical facet joint, multilevel DDD (degenerative disc disease), cervical, mild C4-C5, moderate C5-C7 Degeneration of cervical intervertebral disc Anterolisthesis of cervical spine, mild C4 on C5 documented in this encounter Care Teams Beer Maker Relationship Specialty Start Date End Date Eron Holliday NP [address] [facility] [place] [address] PCP - General Pain Management 07/15/22 documented as of this encounter
--- OUTSIDE RECORDS SUMMARY | 2024-03-03 17:36 | XMS_ITS | Encounter Summary ---
Author Organization Formerly [facility] Address [address] [place] [address] Care Team Providers Care Institution Librarian Name Role Phone Eron Acevedo NP Primary Care Provider +1- [phone] Reason for Visit * Reason Comments PT [...] of right infraspinatus tendon Lamar Slater, CHRISTOPHER [address] [address] Phone: tel: fax: [address] [phone] Referral ID Status Reason Start Date Expiration Date V isits Requested Visits Authorized [id number] Closed Evaluate and Treat 05/08/2023 05/07/2024 16 12 Encounter Details Date Type Department Care Team (Late st Contact Info) Description 05/16/2023 8:30 AM CDT Therapy [facility] Medical Office Bldg 1 OP Physical Therapy [address] [place] [address] Mili Ortega, GENEVIEVE Numbness and tingling [...] on file Legal Sex Female 8:53 AM CLIENT ACCOUNT ASSISTANT Gender Identity Female 12/26/2023 10:11 PM CDT Sexual Orientation Straight 12/26/2023 10 :11 PM CDT 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 Mili Ortega PTA [facility] ATTENTION PHYSICIAN If you [...] tendon documented in this encounter Care Teams Institution Librarian Relationship Specialty Start Date End Date Eron Acevedo NP [address] [place] [address] [place] [address] PCP - General Pain Management 07/15/22 documented as of this encounter
--- OUTSIDE RECORDS SUMMARY | 2024-03-03 17:36 | XMS_ITS | Encounter Summary ---
Author Organization [facility] Address [address] [place] [address] Care Team Providers Care Floor Helper Name Role Phone Eron Holliday NP Primary Care Provider +1- [phone] Encounter Details Date Type Department Care Team (Late st Contact Info) Description 04/28/2023 12:30 PM LARD RENDERER Lab [address] [address] Social History Tobacco Use Types Packs/Day Years Used Date Smoking Tobacco: Former Cigarettes Q uit: 03/20/2020 Smokeless Tobacco: Never Personal Safety Answer Date Recorded Getting School Help Needed Not on file 02/13 Comments No Sex and Gender Information Value Date Recorded Sex Assigned at Not on file Legal Sex Female 8:53 AM LARD RENDERER Gender Identity Female 12/26/2023 10:11 PM CDT Sexual Orientation Straight 12/26/2023 10 :11 PM CDT Occupation Industry Job Start Date Job End Date [employer] Not on file Not on file Not on file documented as of this encounter Plan of Treatment Not on file documented as of this encounter Procedures Procedure Name Priority Date/Time Associated Diagnosis Comments EGFR Routine 04/28/2023 12:34 PM LARD RENDERER DIFFERENTIAL AUTO Routine 04/28/2023 12: 34 PM LARD RENDERER CBC WITH AUTO DIFFERENTIAL Routine 04/28/2023 12:34 PM LARD RENDERER HEMOGLOBIN A1C Routine 04/28/2023 12:34 PM LARD RENDERER RENAL FUNCTION PANEL Routine 04/28/2023 12:34 PM LARD RENDERER PROTEIN / CREATININE RATIO, URINE, RANDOM Routine 04/28/2023 12:24 PM LARD RENDERER documented in this encounter Results * eGFR (04/28/2023 12:34 PM LARD RENDERER) eGFR 63 mL/min/1. 73 m2 [facility] [...] reviewed 2020. Blood 04/28/2023 12:3 4 PM LARD RENDERER 04/28/2023 1:08 PM LARD RENDERER us Leobardo Bhagat MD LAB BLOOD ORDERABLES Final Re sult [facility] ([place]) 1 [facility] [place] [address] * Differential, auto (04/28/2023 12:34 PM LARD RENDERER) Neutrophil abs 3.9 1.5 - 6.5 K/cumm [facility] ([place]) Imm gran abs 0.0 0.0 - 0.1 K/cumm [facility] ([place]) Lymphocyte abs 2.6 0.8 - 3.3 K/cumm [facility] ([place]) Monocyte abs 0.5 0.2 - 0.8 K/cumm [facility] ([place]) Eosinophil abs 0.2 0.0 - 0.5 K/cumm [facility] ([place]) Basophil abs 0.1 0.0 - 0.1 K/cumm [facility] ([place]) Neutrophil pct 53.8 % [facility] ([place]) Comment: Interpretive Data Percent cell count reference ranges are not reported, since discordance with absolute values may lead to misinterpretation of CBC data. Current Interpretive Data was last revised on 2017. Imm gran pct 0.3 % [facility] ([place]) Comment: Interpretive Data Percent cell count reference ranges are not reported, since discordance with absolute values may lead to misinterpretation of CBC data. Current Interpretive Data was last revised on 2017. Lymphocyte pct 36.0 % [facility] ([place]) Comment: Interpretive Data Percent cell count reference ranges are not reported, since discordance with absolute values may lead to misinterpretation of CBC data. Current Interpretive Data was last revised on 2017. Monocyte pct 6.6 % [facility] ([place]) Comment: Interpretive Data Percent cell count reference ranges are not reported, since discordance with absolute values may lead to misinterpretation of CBC data. Current Interpretive Data was last revised on 2017. Eosinophil pct 2.3 % [facility] ([place]) Comment: Interpretive Data Percent cell count reference [...] on 2017. Blood 04/28/2023 12:3 4 PM LARD RENDERER 04/28/2023 1:08 PM LARD RENDERER Leobardo Bhagat MD LAB BLOOD ORDERABLES Final Re sult Performing Organization Address City/[facility] Co de Phone Number OL[facility]IA SANTOYO ([place]) 1 [facility] [place] [address] * (ABNORMAL) Hemoglobin A1c (04/28/2023 12:34 PM LARD RENDERER) Hgb A1C 7.4(H) 4.0 - 5.6 % [facility] ([place]) Estimated Average Glucose 166 mg/dL [facility] ([place]) Comment: The ADA recommends reporting an estimated Average Glucose (eAG) with all Hemoglobin A1c results using the equation derived from a study of 507 normal and diabetic adults. ??Minority populations were underrepresented and children were not included. ?? (Diabetes Care 31:2419-7116, 2008). ??The eAG is not equivalent to a fasting glucose. Blood 04/28/2023 12:3 4 PM LARD RENDERER 04/28/2023 1:08 PM LARD RENDERER Leobardo Bhagat MD LAB BLOOD ORDERABLES Final Re sult Performing Organization Address City/[facility] Co de Phone Number [facility] ([place]) 1 [facility] [place] [address] * (ABNORMAL) Renal function panel (04/28/2023 12:34 PM LARD RENDERER) Sodium 139 135 - 145 mmol/L [facility] ([place]) Potassium, pl 4.1 3.3 - 4.9 mmol/L [facility] ([place]) Chloride 101 97 - 110 mmol/L [facility] ([place]) CO2 22 22 - 32 mmol/L [facility] ([place]) Anion gap 16(H) 2 - 15 mmol/L [facility] ([place]) BUN 21 6 - 25 [...] [facility] ([place]) Blood 04/28/2023 12:3 4 PM LARD RENDERER 04/28/2023 1:08 PM LARD RENDERER us Leobardo Bhagat MD LAB BLOOD ORDERABLES Final Re sult [facility] ([place]) 1 [facility] [place] [address] * (ABNORMAL) CBC with auto differential (04/28/2023 12:34 PM LARD RENDERER) WBC 7.3 3.8 - 9.9 K/cumm [facility] [...] [facility] ([place]) Blood 04/28/2023 12:3 4 PM LARD RENDERER 04/28/2023 1:08 PM LARD RENDERER Leobardo Bhagat MD LAB BLOOD ORDERABLES Final Re sult Performing Organization Address [facility] Co de Phone Number [facility] SANTOYO ([place]) 1 [facility] [email or web address] [address] * (ABNORMAL) Protein / creatinine ratio, urine, random (04/28/2023 12:24 PM LARD RENDERER) Protein, ur, quant 66.0 mg/dL [facility] ([place]) Comment: Interpretive Data No reference range established. Current interpretive data was last revised 2018. Creatinine Ur 42.8 mg/dL [facility] ([place]) Comment: Interpretive Data No reference range established. Current interpretive data was last revised 2018. Protein/creatinin e ratio 1,542.1(H ) 0.0 - 180.0 mg/g CR [facility] ([place]) Urine 04/28/2023 12:2 4 PM LARD RENDERER 04/28/2023 2:12 PM LARD RENDERER Leobardo Bhagat MD LAB URINE ORDERABLES Final Re sult Performing Organization Address City/[facility]/ZIP Co de Phone Number [facility]OY[facility] ([place]) 1 [facility] [email or web address] [address] documented in this encounter Visit Diagnoses Not on filedocumented in this encounter Care Teams Floor Helper Relationship Specialty Start Date End Date Holliday, Eron J., BINDERY CUTTER OPERATOR [address] [place] [address] PCP - General Pain Management 07/15/22 documented as of this encounter
--- OUTSIDE RECORDS SUMMARY | 2024-03-03 17:36 | XMS_ITS | Encounter Summary ---
Author Organization [facility] Address [address] [place] [address] Care Team Providers Care Automation Control Technician Name Role Phone Eron Holliday NP Primary Care Provider +1- [phone] Reason for Referral * Diagnostic Imaging (Routine) - Closed Specialty Diagnoses / Procedures Referred By Contac t Referred To Contact Diagnoses Neck pain Procedures XR Spine Cervical W Flexion And Extension 6 or More Views Lamar Slater NP [facility]0 [facility] [address] [place] [address] Phone: tel: fax: [address] [phone] Referral ID Status Reason Start Date Expiration Date Visits Re quested Visits Authorized [id number] Closed 04/04/2023 05/03/2024 1 1 SENSEI Reason for Visit * Diagnostic Imaging (Routine) - Closed Specialty Diagnoses / Procedures Referred By Claudette t Referred To Contact Diagnoses Neck pain Procedures XR Spine Cervical W Flexion And Extension 6 or More Views Lamar Slater NP [facility] [address] [place] [address] Phone: tel: fax: [address] [phone] Referral ID Status Reason Start Date Expiration Date Visits Re quested Visits Authorized [id number] Closed 04/04/2023 05/03/2024 1 1 Encounter Details Date Type Department Care Team (Latest Contact Info) Description 04/16/2023 9:07 AM LEAN SENSEI - 04/16/2023 11:59 PM LEAN SENSEI Hospital Encounter [facility] [address] [place] [address] Neck pain; Right shoulder pain, unspecified chronicity [...] on file Legal Sex Female 8:53 AM LEAN SENSEI Gender Identity Female 12/26/2023 10:11 PM CDT Sexual Orientation Straight 12/26/2023 10 :11 PM CDT Occupation Industry Job Start Date Job End Date [employer] Not on file Not on file Not [...] (1,000 unit) tablet 10/18/2022 4 Dexcom G6 Loom Blower miscIndications:T ype 2 diabetes mellitus with hyperglycemia, [...] Read Routine (OP Routine) 04/16/2023 9:18 AM LEAN SENSEI Right shoulder pain, unspecified chronicity XR SPINE CERVICAL W FLEXION AND EXTENSION 6 OR MORE VIEWS Schedule Routine, Read Routine (OP Routine) 04/16/2023 9:18 AM LEAN SENSEI Neck pain documented in this encounter Results * XR Shoulder Right 2 or More Views (04/16/2023 9:18 AM LEAN SENSEI) Anatomical Region Laterality Modality Upper Extremities, Shoulder Right Comp uted Radiography 04/16/2023 7:46 PM LEAN SENSEI Narrative 04/16/2023 7:51 PM LEAN SENSEI EXAM DESCRIPTION: XR SHOULDER RIGHT 2 OR [...] and right-sided C6-C7 foraminal impingement. ??There is hthe-qbotwwo-aegq-right cervical facet osteoarthritis. Right shoulder: No acute fractures are identified. ??Alignment is normal. ??There is mild glenohumeral and moderate acromioclavicular joint osteoarthritis. ?? Infraspinatus calcific tendinitis is present. IMPRESSION: Mild C4-C5 and moderate C5-C7 degenerative disc disease with ytve-uokqcil-cbct-right cervical facet osteoarthritis. Left-sided C4-C5 and right-sided C6-C7 foraminal impingement. Mild right glenohumeral and moderate acromioclavicular joint osteoarthritis. Right infraspinatus calcific tendinitis. THIS IS AN ELECTRONICALLY VERIFIED FINAL REPORT 04/16/2023 7:51 PM - Electronically signed by ??Lamont Hidalgo M.D. D: ??04/16/2023 7:51 PM T: Report ID: [id number] Reading Location: ??[id number] Procedure Note Lamont Hidalgo MD - 04/16/2023 [...] and right-sided C6-C7 foraminal impingement. There is chyz-ofvwioh-motg-right cervical facetosteoarthritis. Right shoulder: No acute fractures are identified. Alignment is normal. There is mild glenohumeral and moderate acromioclavicular joint osteoarthritis. Infraspinatus calcific tendinitis is present. IMPRESSION: Mild C4-C5 and moderate C5-C7 degenerative disc disease with kpbo-jkvfcbz-yraj-right cervical facet osteoarthritis. Left-sided C4-C5 and right-sided C6-C7 foraminal impingement. Mild right glenohumeral and moderate acromioclavicular jointosteoarthritis. Right infraspinatus calcific tendinitis. THIS IS AN ELECTRONICALLY VERIFIED FINAL REPORT 04/16/2023 7:51 PM - Electronically signed by Lamont Hidalgo M.D. T: Report ID: [id number] Reading Location: [id number] Lamar Slater MANAGER CORPORATE MARKETING IMG XR PROCEDURES Final Res ult * XR Spine Cervical W Flexion And Extension 6 or More Views (04/16/2023 9:18 AM LEAN SENSEI) Anatomical Region Laterality Modality Spine N/A Computed Radiogr aphy 04/16/2023 7:46 PM LEAN SENSEI Narrative 04/16/2023 7:51 PM LEAN SENSEI EXAM DESCRIPTION: XR SHOULDER RIGHT 2 OR [...] and right-sided C6-C7 foraminal impingement. ??There is lbmz-mloayxj-ewbi-right cervical facet osteoarthritis. Right shoulder: No acute fractures are identified. ??Alignment is normal. ??There is mild glenohumeral and moderate acromioclavicular joint osteoarthritis. ?? Infraspinatus calcific tendinitis is present. IMPRESSION: Mild C4-C5 and moderate C5-C7 degenerative disc disease with jame-lphgbvp-vajk-right cervical facet osteoarthritis. Left-sided C4-C5 and right-sided C6-C7 foraminal impingement. Mild right glenohumeral and moderate acromioclavicular joint osteoarthritis. Right infraspinatus calcific tendinitis. THIS IS AN ELECTRONICALLY VERIFIED FINAL REPORT 04/16/2023 7:51 PM - Electronically signed by ??Lamont Hidalgo M.D. D: ??04/16/2023 7:51 PM T: Report ID: [id number] Reading Location: ??[id number] Procedure Note Lamont Hidalgo MD - 04/16/2023 [...] and right-sided C6-C7 foraminal impingement. There is fmao-gmftjgr-uyga-right cervical facetosteoarthritis. Right shoulder: No acute fractures are identified. Alignment is normal. There is mild glenohumeral and moderate acromioclavicular joint osteoarthritis. Infraspinatus calcific tendinitis is present. IMPRESSION: Mild C4-C5 and moderate C5-C7 degenerative disc disease with esxj-jucsojd-klaw-right cervical facet osteoarthritis. Left-sided C4-C5 and right-sided C6-C7 foraminal impingement. Mild right glenohumeral and moderate acromioclavicular jointosteoarthritis. Right infraspinatus calcific tendinitis. THIS IS AN ELECTRONICALLY VERIFIED FINAL REPORT 04/16/2023 7:51 PM - Electronically signed by Lamont Hidalgo M.D. T: Report ID: [id number] Reading Location: [id number] Lamar Slater MANAGER CORPORATE MARKETING IMG XR PROCEDURES Final Res ult documented in this encounter Visit Diagnoses Diagnosis Neck pain Cervicalgia Right shoulder pain, unspecified chronicity documented in this encounter Care Teams Automation Control Technician Relationship Specialty Start Date End Date Eron Holliday NP [address] [place] [address] PCP - General Pain Management 07/15/22 documented as of this encounter
--- OUTSIDE RECORDS SUMMARY | 2024-03-03 17:36 | XMS_ITS | Encounter Summary ---
Author Organization [facility] Healthcare Address [address] [place] [address] Care Team Providers Care Mold Sheet Cleaner Name Role Phone Eron Holliday NP Primary Care Provider [phone]- [phone] Marialuisa Daniel NP Unavailable [phone] Leobardo Bhagat MD Unavailable [phone] Florin Dixon MD Unavailable Reason for Visit * Auth/Cert Specialty Diagnoses / Procedures Referred By Claudette smith Referred To Contact Diagnoses Primary osteoarthritis of right knee Primary osteoarthritis of right knee [M17.11] Procedures ID ARTHRP KNE CONDYLE&PLATU MEDIAL&LAT COMPARTMENTS RIGHT TOTAL KNEE ARTHROPLASTY Referral ID Status Reason Start Date Expiration Date Visits Re quested Visits Authorized [id number] 1 1 Encounter Details Date Type Department Care Team (Late st Contact Info) Description 10/06/2023 7:27 AM CDT Anesthesia Event [facility] [place] [address] [place] [address] Olayinka Zayas MD [address] [place] [address] Anesthesia Record Procedure Summary Procedure Name [...] Cigarettes Q uit: 03/20/2020 Smokeless Tobacco: Never [facility] Utilities Answer Date Recorded In the past 12 months has [employer], gas, oil, or water [employer] threatened to shut off services in your [...] 10/07/2023 How often do you attend chur [employer] or religion services? 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 Not on file Not on file Not on file documented as of this encounter OR Notes * Anesthesia Postprocedure Evaluation - Olayinka Zayas MD - 10/06/2023 10:04 AM CDT Patient: Sandy Lopez Procedure Summary Date: 10/06/23 Room / Location: [facility] / [facility] Anesthesia Start: 726 Anesthesia Stop: 931 Procedure: RIGHT TOTAL KNEE ARTHROPLASTY (Right: Knee) Diagnosis: Primary osteoarthritis of right knee (Primary osteoarthritis of right knee [M17.11]) Surgeons: Regi Khan DO Responsible Provider: Olayinka Zayas MD [...] and limited mandibular protusion Staff: Placed by: WIRER MAINTENANCE: Cheyenne Bateman CRNA Emergent airway documentation: Risks [...] Hypertension + Hyperlipidemia Pertinent negatives: CAD and NC Respiratory Pertinent negatives: COPD; asthma and non-smoker [...] with long-term current use of insulin ([facility]) 08/19/2020 Hyperlipidemia associated with type 2 diabetes mellitus ([facility]) 08/19/2020 Omnipod Dash Insulin pump in place 11/19/2019 Contact with and (suspected) exposure to other communicable diseases 07/28/2019 Acquired trigger finger 04/21/2019 Osteoarthritis of left hand 04/21/2019 Herniation of intervertebral disc 01/26/2019 Systolic murmur 11/30/2018 Elevated liver enzymes 11/13/2018 Microalbuminuria 11/13/2018 Peripheral arterial occlusive disease ([facility]) ([facility]) 10/30/2018 Abnormal result of other cardiovascular function study 09/04/2018 Atherosclerosis of [place] arteries of extremities with intermittent claudication, bilateral legs ([facility]) 09/04/2018 Hypertension associated with type 2 diabetes mellitus ([facility]) 08/04/2018 Heart murmur 08/04/2018 Occlusion and stenosis of bilateral carotid arteries 08/04/2018 Obesity 08/04/2018 Candidiasis of skin 07/23/2018 Cigarette smoker 07/14/2018 Class 2 severe obesity due to excess calories with serious comorbidity and body mass index (BMI) of36.0 to 36.9 in adult ([facility]) 07/14/2018 Noncompliance with treatment 06/25/2017 High serum creatinine 06/25/2017 Bacterial vaginosis 05/12/2017 Allergic rhinitis 04/25/2017 Disorder of lipid metabolism 04/24/2017 Mixed anxiety and depressive disorder 03/14/2017 Gastroesophageal reflux disease 03/14/2017 Tear of meniscus of knee 03/14/2017 Nicotine dependence 03/14/2017 Type 2 diabetes mellitus with hyperglycemia, with long-term current use of insulin ([facility]) 03/13/2017 Carpal tunnel syndrome 03/13/2017 Past Medical History: Diagnosis Date Anxiety Arthritis Arthropathy of cervical facet joint DDD (degenerative disc disease), cervical Depression Diabetes ([facility]) Dizziness Foraminal stenosis of cervical region GERD (gastroesophageal reflux disease) H/O insulin dependent diabetes mellitus High blood pressure Hyperlipidemia Insulin pump in place omnipod dash Obesity PAD (peripheral artery disease) ([facility]) with stent placed on right side Second hand smoke exposure Stomach ulcer Type 1 diabetes mellitus ([facility]) 08/04/2018 Uncontrolled type 2 diabetes mellitus with hyperglycemia ([facility]) 03/14/2017 Uncontrolled type 2 diabetes mellitus with hyperglycemia, with long-term current use of insulin ([facility]) 04/03/2017 Uses self-applied continuous glucose [...] -- -- Alex Castillo MD Dexcom G6 Call Center Manager misc -- 08/22/21 -- Marialuisa Daniel, TANYARD WORKER USE TO TEST BLOOD SUGAR DIRECTED Notes: Prescription Dexcom G6 Transmitter device -- 05/28/22 -- Marialuisa Daniel, TANYARD WORKER USE TO TEST BLOOD SUGAR TWICE A DAY Notes: Maximum Refills Reached Dexcom G7 Sensor device -- 12/13/22 -- Marialuisa Daniel, TANYARD WORKER 1 Device continuously . Change every 10 days. E11.65 empagliflozin (Jardiance) 25 mg tablet -- 10/29/22 -- Marialuisa Daniel, TANYARD WORKER Take 1 tablet (25 mg total) by mouth daily ergocalciferol, vitamin D2, 50 mcg (2,000 unit) capsule -- -- -- Alex Castillo MD estradioL (ESTRACE) 0.5 mg tablet -- 10/11/18 -- Alex Castillo MD ezetimibe (ZETIA) 10 mg tablet -- 05/24/21 -- Marialuisa Daniel TANYARD WORKER TAKE 1 TABLET BY MOUTH DAILY Patient taking differently: Take 1 tablet (10 mg total) by mouth daily Notes: Maximum Refills Reached famotidine (PEPCID) 20 mg tablet -- 04/25/20 -- Alex Castillo MD fexofenadine (ADELA) 180 mg tablet -- 04/09/22 -- Alex Castillo MD insulin lispro (HumaLOG) 100 unit/mL vial for injection -- 09/18/23 -- Marialuisa Daniel, TANYARD WORKER USE PER INSULIN PUMP MAX OF 150 [...] sugar diagnostic (ONETOUCH ULTRA BLUE TEST STRIP [facility]) blood-glucose meter kit blood-glucose transmitter (Dexcom G6 Transmitter) device Dexcom G6 Call Center Manager [facility] G[facility] Transmitter device estradioL (ESTRACE) 0.5 [...] Medication protocol when under care of a WIRER MAINTENANCE Planned anesthesia: General and regional for postop pain per surgeon request Induction: Induction: intravenous. Postoperative Plan: Postoperative administration opioids intended. Informed Consent: Discussed plan with WIRER MAINTENANCE. Anesthesia plan and risks discussed with patient. [...] Procedure Name Priority Date/Time Associated Diagnosis Comments ID AN PROCEDURE PLACEHOLDER Routine 10/06/2023 8:01 AM CDT ID AN ELECTIVE SUPRAGLOTTIC AIRWAY Routine 10/06/2023 8:01 AM CDT ID AN PROCEDURE PLACEHOLDER Routine 10/06/2023 7:27 AM CDT ID AN PROCEDURE PLACEHOLDER Routine 10/06/2023 7:26 AM CDT documented in this encounter Results * ID AN ELECTIVE SUPRAGLOTTIC AIRWAY, ID AN PROCEDURE PLACEHOLDER (10/06/2023 8:01 AM CDT) [...] and limited mandibular protusion Staff: Placed by: WIRER MAINTENANCE: Cheyenne Bateman CRNA Emergent airway documentation: Risks [...] MD ANESTHESIA ORDERABLES Final Resu lt * ID AN PROCEDURE PLACEHOLDER (10/06/2023 7:27 AM CDT) [...] MD ANESTHESIA ORDERABLES Final Resu lt * ID AN PROCEDURE PLACEHOLDER (10/06/2023 7:26 AM CDT) [...] mg documented in this encounter Care Teams Mold Sheet Cleaner Relationship Specialty Start Date End Date Eron Holliday TANYARD WORKER [address] [place] [address] PCP - General Pain Management 07/15/22 Marialuisa Daniel NP [address] [facility] [place], [place] [id number] Nurse Practitioner Endocrinology Diabetes & Metabolism 09/22/23 Leobardo Bhagat MD [address] [place] [address] [address] Consulting Physician Nephrology 09/22/23 [place] [address] [address] Consulting Physician Cardiovascular Disease 09/22/23 documented as of this encounter
--- OUTSIDE RECORDS SUMMARY | 2024-03-03 17:36 | XMS_ITS | Encounter Summary ---
Author Organization [facility] Healthcare Address [address] [place] [address] Care Team Providers Care Manufacturing Engineer Supervisor Name Role Phone Eron Holliday NP Primary Care Provider [phone]- [phone] Reason for Referral * Consultation (Routine) - Closed Specialty Diagnoses / Procedures Referred By Claudette smith Referred To Contact Neurosurgery Diagnoses Right cervical radiculopathy Cervical stenosis of spinal canal Foraminal stenosis of cervical region 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 Arthropathy of cervical facet joint DDD (degenerative disc disease), cervical Anterolisthesis of cervical spine Lamar Slater NP [address] [address] Phone: tel: fax: Eloy Borden MD [address] [place] [address] Phone: tel: fax: Referral ID Status Reason Start Date Expiration Date V isits Requested Visits Authorized [id number] Closed Specialty Services Required 08/08/2023 09/06/2024 1 1 Question Answer Please select the performing region: [facility] [[id number]] Please select the performing department: [facility] [[id number]] To provider: ELOY BORDEN [[id number]] # of visits: 1 Comments Evaluate and treat Encounter Details Date Type Department Care Team (Late st Contact Info) Description 08/08/2023 Telephone [facility] Medical Group Orthopedics and Sports Medicine [address] [facility] [address] [place] [address] Lamar Slater NP [address] [facility] [address] [place] [address] Social History Tobacco Use Types Packs/Day Years Used Date Smoking Tobacco: Former Cigarettes Q uit: 03/20/2020 Smokeless Tobacco: Never Personal Safety Answer Date Recorded Getting School Help Needed Not on file 02/13 Comments No Sex and Gender Information Value Date Recorded Sex Assigned at Not on file Legal Sex Female 8:53 AM KNITTER HAND Gender Identity Female 12/26/2023 10:11 PM CDT Sexual Orientation Straight 12/26/2023 10 :11 PM CDT 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
--- OUTSIDE RECORDS SUMMARY | 2024-03-03 17:36 | XMS_ITS | Encounter Summary ---
Author Organization [facility] Healthcare Address [address] [place] [address] Care Team Providers Care Rouge Miller Name Role Phone Eron Holliday NP Primary Care Provider [phone]- [phone] Encounter Details Date Type Department Care Team (Late st Contact Info) Description 08/26/2023 Orders Only [facility] PreAdmission Testing [address] [place] [address] Elena Limon RN Social History Tobacco Use Types Packs/Day Years Used Date Smoking Tobacco: Former Cigarettes Q uit: 03/20/2020 Smokeless Tobacco: Never Personal Safety Answer Date Recorded Getting School Help Needed Not on file 02/13 Comments No Sex and Gender Information Value Date Recorded Sex Assigned at Not on file Legal Sex Female 8:53 AM 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
--- OUTSIDE RECORDS SUMMARY | 2024-03-03 17:36 | XMS_ITS | Encounter Summary ---
Author Organization [facility] Healthcare Address [address] [place] [address] Care Team Providers Care Duplicator Punch Set Up Operator Name Role Phone Eron Acevedo NP Primary Care Provider +1- [phone] Reason for Visit * Reason Comments PT [...] of right infraspinatus tendon Lamar Slater, CHRISTOPHER [address] [address] Phone: tel: fax: [address] [phone] Referral ID Status Reason Start Date Expiration Date V isits Requested Visits Authorized [id number] Closed Evaluate and Treat 05/08/2023 05/07/2024 16 12 Encounter Details Date Type Department Care Team (Late st Contact Info) Description 05/30/2023 8:30 AM CDT Therapy [facility] Medical Office Bldg 1 OP Physical Therapy [address] [place] [address] Akilah Dennis PTA Numbness and tingling [...] on file Legal Sex Female 8:53 AM NIB ADJUSTER Gender Identity Female 12/26/2023 10:11 PM CDT Sexual Orientation Straight 12/26/2023 10 :11 PM CDT Occupation Industry Job Start Date Job End Date [employer] Not on file Not on file Not on file documented as of this encounter Progress Notes * Akilah Dennis, HIGHWAY PAINTER - 05/30/2023 8:30 AM CDT No diagnosis [...] progress towards functional goals. Akilah Dennis PTA [facility] Services ATTENTION PHYSICIAN If you are [...] Primary documented in this encounter Care Teams Duplicator Punch Set Up Operator Relationship Specialty Start Date End Date Eron Acevedo NP [address] [place] [address] PCP - General Pain Management 07/15/22 documented as of this encounter
--- OUTSIDE RECORDS SUMMARY | 2024-03-03 17:36 | XMS_ITS | Encounter Summary ---
Author Organization [facility] Healthcare Address [address] [place] [address] Care Team Providers Care Grounds Supervisor Name Role Phone Eron Holliday NP Primary Care Provider +1- [phone] Reason for Visit * Reason Comments PT Initial Eval * Physical Therapy (Routine) - Closed Specialty Diagnoses / Procedures Referred By Contac t Referred To Contact Physical Therapy Diagnoses Primary osteoarthritis of right knee Regi Batres, [facility] [address] [address] Phone: tel: fax: [facility] OP Physical Therapy [address] [place] [address] Phone: tel: fax: Referral ID Status Reason Start Date Expiration Date V isits Requested Visits Authorized [id number] Closed Specialty Services Required 09/08/2023 09/17/2024 1 1 Encounter Details Date Type Department Care Team (Late st Contact Info) Description 09/08/2023 4:45 PM CDT Therapy [facility] OP Physical Therapy [address] [place] [address] Cheyenne Andrade, PT Primary osteoarthritis of right knee Social History Tobacco Use Types Packs/Day Years Used Date Smoking Tobacco: Former Cigarettes Q uit: 03/20/2020 Smokeless Tobacco: Never Personal Safety Answer Date Recorded Getting School Help Needed Not on file 02/13 Comments No Sex and Gender Information Value Date Recorded Sex Assigned at Not on file Legal Sex Female 8:53 AM 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 Cheyenne Andrade, PT, DPT [facility] Services ATTENTION PHYSICIAN If you are unable [...] 1 documented in this encounter Care Teams Grounds Supervisor Relationship Specialty Start Date End Date Eron Holliday NP [address] [place] [address] PCP - General Pain Management 07/15/22 documented as of this encounter
--- OUTSIDE RECORDS SUMMARY | 2024-03-03 17:36 | XMS_ITS | Encounter Summary ---
Author Organization [facility] Healthcare Address [address] [place] [address] Care Team Providers Care Health Insurance Assessor Name Role Phone Eron Holliday NP Primary Care Provider [phone]- [phone] Marialuisa Daniel NP Unavailable [phone] Leobardo Bhagat MD Unavailable Florin Dixon MD Unavailable Reason for Visit * Reason Onset Date Comments FMLA paperwork 10/06/2023 Encounter Details Date Type Department Care Team (Late st Contact Info) Description 10/06/2023 Telephone [facility] Medical Group Orthopedics and Sports Medicine [address] [place] [phone] Regi Khan DO [address] [place] [address] FMLA paperwork Social History Tobacco Use [...] often do you attend chur ch or rastafarian services? 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 on file Not on file Not [...] on filedocumented in this encounter Care Teams Health Insurance Assessor Relationship Specialty Start Date End Date Eron Holliday NP [address] [place] [address] PCP - General Pain Management 07/15/22 Marialuisa Daniel NP [address] [place] [phone] Nurse Practitioner Endocrinology Diabetes & Metabolism 09/22/23 Leobardo Bhagat MD [address] [place] [address] Consulting Physician Nephrology 09/22/23 [place] [address] [address] Consulting Physician Cardiovascular Disease 09/22/23 documented as of this encounter
--- OUTSIDE RECORDS SUMMARY | 2024-03-03 17:36 | XMS_ITS | Encounter Summary ---
Author Organization [facility] Healthcare Address [address] [place] [address] Care Team Providers Care Hearing Impaired Teacher Name Role Phone Eron Acevedo NP Primary Care Provider +1- [phone] Reason for Visit * Reason Comments PT [...] of right infraspinatus tendon Lamar Slater, CHRISTOPHER [address] [address] Phone: tel: fax: [address] [address] Referral ID Status Reason Start Date Expiration Date V isits Requested Visits Authorized [id number] Closed Evaluate and Treat 05/08/2023 05/07/2024 16 12 Encounter Details Date Type Department Care Team (Late st Contact Info) Description 05/27/2023 3:00 PM CDT Therapy [facility] Medical Office Bldg 1 OP Physical Therapy [address] [place] [address] Akilah Dennis PTA Numbness and tingling [...] file Legal Sex Female 8:53 AM 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 Akilah Dennis PTA [facility] ATTENTION PHYSICIAN If you are unable [...] Primary documented in this encounter Care Teams Hearing Impaired Teacher Relationship Specialty Start Date End Date Eron Acevedo NP [address] [place] [address] PCP - General Pain Management 07/15/22 documented as of this encounter
--- OUTSIDE RECORDS SUMMARY | 2024-03-03 17:36 | XMS_ITS | Encounter Summary ---
Author Organization [facility] Address [address] [place] [address] Care Team Providers Care Office Mover Name Role Phone Eron Acevedo NP Primary Care Provider [phone]- [phone] Reason for Visit * Reason Comments PT [...] of right infraspinatus tendon Lamar Slater, CHRISTOPHER [address] [address] Phone: tel: fax: [address] [address] Referral ID Status Reason Start Date Expiration Date V isits Requested Visits Authorized [id number] Closed Evaluate and Treat 05/08/2023 05/07/2024 16 12 Encounter Details Date Type Department Care Team (Late st Contact Info) Description 06/04/2023 8:30 AM CDT Therapy [facility] Medical Office Bldg 1 OP Physical Therapy [address] [place] [address] Nora Tapia, GENEVIEVE Numbness and tingling [...] on file Legal Sex Female 8:53 AM GIMP TACKER Gender Identity Female 12/26/2023 10:11 PM CDT Sexual Orientation Straight 12/26/2023 10 :11 PM CDT 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 Nora Tapia, [facility] ATTENTION PHYSICIAN If you [...] tendon documented in this encounter Care Teams Office Mover Relationship Specialty Start Date End Date Eron Acevedo NP [address] [place] [address] PCP - General Pain Management 07/15/22 documented as of this encounter
--- OUTSIDE RECORDS SUMMARY | 2024-03-03 17:36 | XMS_ITS | Encounter Summary ---
Author Organization [facility] Healthcare Address [address] [place] [address] Care Team Providers Care Cuff Matcher Name Role Phone Eron Holliday NP Primary Care Provider [phone]- [phone] Reason for Referral * MRI/CAT/PET Scan (Routine) - Closed Specialty Diagnoses / Procedures Referred By Contac t Referred To Contact Radiology Diagnoses Right cervical radiculopathy Foraminal stenosis of cervical region Arthropathy of cervical facet joint DDD (degenerative disc disease), cervical Anterolisthesis of cervical spine Procedures MRI Cervical Spine WO Contrast Lamar Slater NP [address] [place] [address] [address] Phone: tel: fax: [address] [address] Referral ID Status Reason Start Date Expiration Date Visits Re quested Visits Authorized [id number] Closed 07/23/2023 07/22/2024 1 1 Reason for Visit * Reason Comments Pain Encounter Details Date Type Department Care Team (Late st Contact Info) Description 07/01/2023 2:30 PM CDT Office Visit [facility] Medical Group Orthopedics and Sports Medicine [address] [place] [phone] Lamar Slater NP [address] [place] [address] [place] [address] Right cervical radiculopathy; Cervical stenosis of spinal canal, hgcl-pa-atftanqs C5-C6, moderate C6-C7; Foraminal stenosis of cervical [...] on file Legal Sex Female 8:53 AM 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 Felipe Cox, neurosurgeon [facility] for further evaluation of her right cervical [...] Moderate left and mild right facet arthropathy. Cucq-ej-qabokzas bilateral uncovertebral arthropathy. Mild bilateral neural foraminal stenosis. No significant spinal canal stenosis C5-C6: Posterior disc osteophyte complex. Hzkw-nv-exhervhg bilateral facet arthropathy. Moderate left and mild right uncovertebral arthropathy. Moderate left neural foraminal stenosis. Reev-pz-jlxqluzo spinal canal stenosis C6-C7: Posterior disc osteophyte complex moderate bilateral facet arthropathy. Severe right moderate bilateral uncovertebral arthropathy. Moderate right and ltgu-qj-nhqdjhmb left neural foraminal stenosis. Moderate spinal canal [...] detailed level by level above. There is cxkf-dr-dkmtwemj spinal canal stenosis at C5-C6 and moderate [...] the right. She had outpatientphysical therapy at [facility] along with cervical traction, dry needle therapy [...] on an insulin pump. 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 Cervical stenosis of spinal canal, gwxe-bm-rhovuzix C5-C6, moderate C6-C7 3. Foraminal stenosis of [...] 08, 2023 through June 23, 2023 at [facility] where she underwent cervical traction, dry needle [...] right-sided C6-C7 foraminal im pingement. There is njnp-ssjbvpc-ipcy-right cervical facet osteoarthritis. Right shoulder: No acute fractures are identified. Alignment is normal. There is mild glenohumeral and moderate acromioclavicular joint osteoarthritis. Infraspinatus calcific tendinitis is present. IMPRESSION: Mild C4-C5 and moderate C5-C7 degenerative disc disease with bmqz-qjaejll-qqyy-right cervical facetosteoarthritis. Left-sided C4-C5 and right-sided C6-C7 [...] to the fifth finger, and exhibit full hardboard press operator strength Perfusion: 2+ radial and ulnar pulses. Fingers warm to touch with capillary refill < 2 seconds. Tinels Sign does not produce a numbness or tingling sensation in the thumb, index or middle finger.. Right Shoulder examination: Inspection: The skin is intact across the shoulders and upper extremities without clinical signs ofinfection, no ecchymosis, no overt evidence of muscle atrophy, no masses. Bwxzn-ow-xfctbn: 170?? of forward flexion actively and passively. [...] appropriate. No presence of pronator drift. Good lokimv-ty-mngz coordination. She walks independently with no assistive devices. Psych: Cooperative with exam. Pleasant demeanor. Allergies: Codeine, Nsaids (non-steroidal anti-inflammatory drug), and Ibuprofen Medications: Current Outpatient Medications: alcohol swabs pads, medicated, Apply 1 each topically 4 (four) times a day before meals and rcjhfkjH60.65, Disp: 400 each, Rfl: 3 aspirin 81 [...] mouth daily, Disp: , Rfl: Dexcom G6 Mechanical Engineering Professor misc, USE TO TEST BLOOD SUGAR DIRECTED, [...] disc disease), cervical Depression Diabetes ([facility]) Dizziness Foraminal stenosis of cervical region GERD (gastroesophageal reflux disease) High blood pressure Type 1 diabetes mellitus ([facility]) 08/04/2018 Uncontrolled type 2 diabetes mellitus with hyperglycemia ([facility]) 03/14/2017 Uncontrolled type 2 diabetes mellitus with hyperglycemia, with long-term current use of insulin ([facility]) 04/03/2017 Past Surgical History: Past Surgical History: Procedure Laterality Date CARPAL TUNNEL RELEASE SECTION ELBOW SURGERY KNEE ARTHROSCOPY TONSILLECTOMY Social History: Social History Tobacco Use Smoking status: Former Current packs/day: 0.00 Types: Cigarettes Quit date: 03/20/2020 Years since quittin.3 Smokeless tobacco: Never Substance and Sexual Activity Drug use: Never Sexual activity: None Alcohol Use: Not At Risk (12/30/2018) Received from [facility], [facility] AUDIT-C Frequency of Alcohol Consumption: Never Average [...] ??Moderate left and mild right facet arthropathy. ??Nwpz-ns-sljrcsyw bilateral uncovertebral arthropathy. ??Mild bilateral neural foraminal stenosis. ??No significant spinal canal stenosis C5-C6: ?? Posterior disc osteophyte complex. ??Hfvs-lz-wsypoybd bilateral facet arthropathy. ??Moderate left and mild right uncovertebral arthropathy. ?? Moderate left neural foraminal stenosis. ??Hgwu-hk-mxvjyavm spinal canal stenosis C6-C7: ?? Posterior disc osteophyte complex moderate bilateral facet arthropathy. ??Severe right ??moderate bilateral uncovertebral arthropathy. ?? Moderate right and mmgg-ne-hxxqgqiw left neural foraminal stenosis. ??Moderate spinal canal [...] detailed level by level above. There is mnnm-gc-sqvsaevc spinal canal stenosis at C5-C6 and moderate spinal canal stenosis at C6-C7 with multilevel neural foraminal stenosis, most pronounced and moderate on the left at C5-C6 and on the right at C6-C7. THIS IS AN ELECTRONICALLY VERIFIED FINAL REPORT 08/07/2023 3:11 PM - Electronically signed by ??Stephen ALLISON D: ??08/07/2023 3:11 PM T: Report ID: [id number] Reading Location: ??[id number] Procedure Note Stephen Nguyen MD - 08/07/2023 [...] Moderate left and mild right facet arthropathy. Iiyz-sf-cmjtcufe bilateral uncovertebral arthropathy. Mild bilateral neural foraminal stenosis. No significantspinal canal stenosis C5-C6: Posterior disc osteophyte complex. Fioj-nv-caytkqau bilateralfacet arthropathy. Moderate left and mild right uncovertebral arthropathy. Moderate left neural foraminal stenosis. Epls-ty-xspszyfw spinal canal stenosis C6-C7: Posterior disc osteophyte complex moderate bilateral facet arthropathy. Severe right moderate bilateral uncovertebral arthropathy. Moderate right and jnrl-fw-gkfqghyx left neural foraminal stenosis.Moderate spinal canal stenosis C7-T1: Mild disc bulge. Mild facet and uncovertebral arthropathy. Mildleft neural foraminal stenosis. No significant spinal canal stenosis BASE OF BRAIN: No significant finding. UPPER THORACIC: Incompletely imaged. No significant spinal stenosis or foraminal stenosis. OTHER: No other significant finding. IMPRESSION: Multilevel cervical degenerative disc and joint disease, as detailed level by level above. There is uirz-li-broztovb spinal canalstenosis at C5-C6 and moderate spinal canal stenosis at C6-C7 with multilevelneural foraminal stenosis, most pronounced and moderate on the left at C5-C6 andon the right at C6-C7. THIS IS AN ELECTRONICALLY VERIFIED FINAL REPORT 08/07/2023 3:11 PM - Electronically signed by Stephen ALLISON T: Report ID: [id number] Reading Location: [place] [address] Lamar Slater PULLMAN CAR REPAIRER IMG MRI PROCEDURES Final Re sult documented in this encounter Visit Diagnoses Diagnosis Right cervical radiculopathy Cervical stenosis of spinal canal, fvfk-xb-qsvjjbsl C5-C6, moderate C6-C7 Spinal stenosis in cervical [...] C5 documented in this encounter Care Teams Cuff Matcher Relationship Specialty Start Date End Date Eron Holliday NP [address] [place] [address] PCP - General Pain Management 07/15/22 documented as of this encounter
--- OUTSIDE RECORDS SUMMARY | 2024-03-03 17:36 | XMS_ITS | Encounter Summary ---
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 Gender Identity Female 12/26/2023 10:11 PM CDT Sexual Orientation Straight 12/26/2023 10 :11 PM CDT 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 Not on file Not on file Not on file documented as of this encounter Plan of Treatment Not on file documented as of this encounter Visit Diagnoses Not on filedocumented in this encounter Care Teams Manager Ems Relationship Specialty Start Date End Date Eron Holliday NP [address] [place] [address] PCP - General Pain Management 07/15/22 Marialuisa Daniel NP [address] [place] [address] Nurse Practitioner Endocrinology Diabetes & Metabolism 09/22/23 Leobardo Bhagat MD [address] [place] [address] Consulting Physician Nephrology 09/22/23 [place] [id number] [address] Consulting Physician Cardiovascular Disease 09/22/23 documented as of this encounter
--- OUTSIDE RECORDS SUMMARY | 2024-03-03 17:36 | XMS_ITS | Encounter Summary ---
Author Organization [facility] Address [address] [place] [address] Care Team Providers Care Presentation Team Member Name Role Phone Eron Holliday NP Primary Care Provider [phone] Reason for Visit * Reason Comments PT [...] Tendonitis of right infraspinatus tendon Lamar Saxena, SPEECH LANG PATH THERAPIST [address] [address] Phone: tel: fax: [address] [phone] Referral ID Status Reason Start Date Expiration Date V isits Requested Visits Authorized [id number] Closed Evaluate and Treat 05/08/2023 05/07/2024 16 12 Encounter Details Date Type Department Care Team (Late st Contact Info) Description 06/12/2023 8:45 AM CDT Therapy [facility] Medical Office Bldg 1 OP Physical Therapy [address] [place] [address] Jesse Pride, PT Numbness and tingling [...] on file Legal Sex Female 8:53 AM SHUT OFF WORKER Gender Identity Female 12/26/2023 10:11 PM CDT Sexual Orientation Straight 12/26/2023 10 :11 PM CDT Occupation Industry Job Start Date Job End Date [employer] Not on file Not on file [...] long-term current use of insulin ([facility]) 04/03/2017 Past Surgical History: Procedure Laterality [...] better. Recently came back from trip to [place]. Current pain ratin/10 At best pain ratin-3/10 At worst pain ratin-5/10 Exacerbating Factors: Unknown Relieving Factors: Raising R arm overhead Function Current Functional Deficits: R arm pain with ADLs. R scapular pain reported with daily activity. Functional Status (just prior to the onset of the treating condition requiring therapy): Denies prior neck issues. 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 Jesse Pride, PT [facility] Services ATTENTION PHYSICIAN If you [...] disc documented in this encounter Care Teams Presentation Team Member Relationship Specialty Start Date End Date Eron Holliday NP [address] [place] [address] PCP - General Pain Management 07/15/22 documented as of this encounter
--- OUTSIDE RECORDS SUMMARY | 2024-03-03 17:36 | XMS_ITS | Encounter Summary ---
Author Organization [facility] Address [address] [place] [address] Care Team Providers Care Evp Marketing Name Role Phone Eron Acevedo NP Primary Care Provider [phone]- [phone] Reason for Visit * Reason Comments PT [...] of right infraspinatus tendon Lamar Slater, CHRISTOPHER [address] [address] Phone: tel: fax: [address] [phone] Referral ID Status Reason Start Date Expiration Date V isits Requested Visits Authorized [id number] Closed Evaluate and Treat 05/08/2023 05/07/2024 16 12 Encounter Details Date Type Department Care Team (Late st Contact Info) Description 06/17/2023 7:45 AM CDT Therapy [facility] Medical Office Bldg 1 OP Physical Therapy [address] [place] [address] Gutierrez Phillips, GENEVIEVE Numbness and tingling [...] on file Legal Sex Female 8:53 AM 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 [...] progress towards functional goals. Gutierrez Phillips PTA [facility] Services ATTENTION PHYSICIAN If you are unable [...] disc documented in this encounter Care Teams Evp Marketing Relationship Specialty Start Date End Date Eron Acevedo NP [address] [place] [address] [place] [address] PCP - General Pain Management 07/15/22 documented as of this encounter
--- OUTSIDE RECORDS SUMMARY | 2024-03-03 17:36 | XMS_ITS | Encounter Summary ---
Author Organization [facility] Healthcare Address [address] [place] [address] Care Team Providers Care Woven Wood Shade Assembler Name Role Phone Eron Holliday NP Primary Care Provider [phone]- [phone] Reason for Visit * Reason Comments Diabetes Type 2 Encounter Details Date Type Department Care Team (Late st Contact Info) Description 01/27/2023 10:30 AM SEEDLING SORTER Office Visit [facility] Medical Group Diabetes Endocrine Care of [address] [place] [address] Marialuisa Daniel, CHRISTOPHER [address] [address] Type 2 diabetes mellitus with hyperglycemia, with long-term current use of insulin (CMS/HCC) (HCC) (Primary Dx); Hyperlipidemia associated with type 2 diabetes mellitus ([facility]); Hypertension associated with type 2 diabetes mellitus ([facility]); dexcom 6 continuous glucose monitoring device; Omnipod [...] on file Legal Sex Female 8:53 AM SEEDLING SORTER Gender Identity Female 12/26/2023 10:11 PM CDT Sexual Orientation Straight 12/26/2023 10 :11 PM CDT documented as of this encounter Last Filed Vital Signs Vital Sign Reading Time Taken Comments Blood Pressure 132/78 01/27/2023 10:35 AM SEEDLING SORTER Pulse - - Temperature - - Respiratory Rate - - Oxygen Saturation - - Inhaled Oxygen Concentration - - Weight 100 kg (220 lb 6.4 oz) 01/27/2023 10:35 A M SEEDLING SORTER Height 165.1 cm (5' 5 ) 01/27/2023 10:35 AM SEEDLING SORTER Body Mass Index 36.68 01/27/2023 10:35 AM SEEDLING SORTER documented in this encounter Progress Notes * Marialuisa Daniel, DISTRICT SALES COORDINATOR - 01/27/2023 10:30 AM CST Images from the original note were not included. Patient ID: Sandy Lopez is a 57 y.o. female. Chief Complaint Diabetes Type 2 2. Addended note: Urgent Appeal Fax to [phone] attn: appeals department Patient uses 108 units [...] hyperglycemia, with long-term current use of insulin ([facility]) ([facility]) (Primary) Assessment & Plan: This is a [...] No follow-ups on file. Marialuisa Daniel NP LING SORTER LING SORTER documented in this encounter Miscellaneous Notes * Assessment & Plan Note - Marialuisa Daniel NP - 01/27/2023 11:06 AM SEEDLING SORTER Associated Problem(s): Hypertension associated with type 2 diabetes mellitus (HCC) This is a chronic condition which is at goal of less than 140/90 Personally reviewed labs. Continue losartan/hydrochlorothiazide Encouraged to monitor weight and B/P at home Encouraged to take medications as prescribed. LING SORTER LING SORTER * Assessment & Plan Note - Marialuisa Daniel NP - 01/27/2023 11:04 AM SEEDLING SORTER Associated Problem(s): Omnipod Dash Insulin pump in [...] units (54%) Interpretation-Average blood sugar is 192 LING SORTER * Assessment & Plan Note - Marialuisa Daniel NP - 01/27/2023 11:03 AM SEEDLING SORTER Associated Problem(s): Class 1 obesity due to excess calories with serious comorbidity and body mass index (BMI) of 33.0 to 33.9 in adult This is a chronic condition which is worsening 7 lb weight gain since last office visit Encouraged healthy eating and exercise Will switch Ozempic to mounjaro LING SORTER * Assessment & Plan Note - Marialuisa Daniel NP - 01/27/2023 11:02 AM SEEDLING SORTER Associated Problem(s): dexcom 7 continous glucose monitor Continuous glucose monitor (cgm) applied 12/27/2022 to 01/09/2023 This device was placed for monitor and treatment of blood sugar. Interpretation of data- average glucose 166, 66% time in range, 34% hyperglycemia, no hypoglycemia noted LING SORTER * Assessment & Plan Note - Marialuisa Daniel NP - 01/27/2023 11:00 AM SEEDLING SORTER Associated Problem(s): Hyperlipidemia associated with type 2 diabetes mellitus (HCC) This is a chronic condition which is at goal of LDL less than 70 Continue atorvastatin Zetia Encouraged to eat healthy, include fresh fruits and vegetables daily and avoid eating fried foods more than once per week. Encouraged to take medications as prescribed. LING SORTER * Assessment & Plan Note - Marialuisa Daniel NP - 01/27/2023 11:00 AM SEEDLING SORTER Associated Problem(s): Type 2 diabetes mellitus with hypoglycemia without coma, with long-term current use of insulin ([facility]) This is a chronic condition which is [...] of less than 70. Continue atorvastatin, Zetia LING SORTER documented in this encounter Plan of Treatment Not on file documented as of this encounter Procedures Procedure Name Priority Date/Time Associated Diagnosis Comments POCT HEMOGLOBIN A1C Routine 01/27/2023 1 0:40 AM SEEDLING SORTER Type 2 diabetes mellitus with hyperglycemia, with long-term current use of insulin ([facility]) ([facility]) POCT GLUCOSE Routine 01/27/2023 10:35 AM SEEDLING SORTER Type 2 diabetes mellitus with hyperglycemia, with long-term current use of insulin ([facility]) ([facility]) documented in this encounter Results * POCT hemoglobin A1c (01/27/2023 10:40 AM SEEDLING SORTER) Hemoglobin A1C, POC 7.4 % Blood 01/27/2023 10:4 0 AM SEEDLING SORTER us Marialuisa Daniel NP POINT OF CARE TEST ORDERABLES F inal Result * POCT glucose (01/27/2023 10:35 AM SEEDLING SORTER) Glucose Blood, POC 165 mg/dL Blood 01/27/2023 10:3 5 AM SEEDLING SORTER Marialuisa Daniel NP POINT OF CARE TEST ORDERABLES F inal Result documented in this encounter Visit Diagnoses Diagnosis Type 2 diabetes mellitus with hyperglycemia, with long-term current use of insulin ([facility])- Primary Hyperlipidemia associated with type 2 diabetes mellitus ([facility]) Hypertension associated with type 2 diabetes mellitus ([facility]) dexcom 6 continuous glucose monitoring device Omnipod [...] 01/24/2023 added in this encounter Care Teams Woven Wood Shade Assembler Relationship Specialty Start Date End Date Eron Holliday NP [address] [facility] [place] [id number] PCP - General Pain Management 07/15/22 documented as of this encounter
--- OUTSIDE RECORDS SUMMARY | 2024-03-03 17:36 | XMS_ITS | Encounter Summary ---
Author Organization [facility] Healthcare Address [address] [place] [address] Care Team Providers Care Incident Response Consultant Name Role Phone Eron Holliday NP Primary Care Provider [phone]- [phone] Reason for Visit * Neurology (Routine) - Closed Specialty Diagnoses / Procedures Referred By Claudette smith Referred To Contact Diagnoses Numbness and tingling of right upper extremity Procedures EMG/NCV - Lamar Slater MEDICAL LABORATORY TECHNOLOGIST [address] [place] [address] Phone: tel: fax: [address] [phone] Referral ID Status Reason Start Date Expiration Date Visits Re quested Visits Authorized [id number] Closed 04/16/2023 05/15/2024 1 1 Encounter Details Date Type Department Care Team (Late st Contact Info) Description 05/12/2023 10:30 AM CDT Therapy [facility] OP Physical Therapy [address] [place] [address] Numbness and tingling of right upper extremity Social History Tobacco Use Types Packs/Day Years Used Date Smoking Tobacco: Former Cigarettes Q uit: 03/20/2020 Smokeless Tobacco: Never Personal Safety Answer Date Recorded Getting School Help Needed Not on file 02/13 Comments No Sex and Gender Information Value Date Recorded Sex Assigned at Not on file Legal Sex Female 8:53 AM INVENTORY CONTROL ANALYST Gender Identity Female 12/26/2023 10:11 PM CDT Sexual Orientation Straight 12/26/2023 10 :11 PM CDT Occupation Industry Job Start Date Job End Date [employer] Not on file Not on file Not [...] 05/12/2023 documented in this encounter Care Teams Incident Response Consultant Relationship Specialty Start Date End Date Eron Holliday NP [address] [facility] [place] [address] PCP - General Pain Management 07/15/22 documented as of this encounter
--- OUTSIDE RECORDS SUMMARY | 2024-03-03 17:36 | XMS_ITS | Encounter Summary ---
Author Organization [facility] Healthcare Address [address] [place] [address] Care Team Providers Care Roof Slater Name Role Phone Eron Holliday NP Primary Care Provider +1- [phone] Reason for Visit * Reason Comments Diabetes Type 2 Encounter Details Date Type Department Care Team (Late st Contact Info) Description 06/26/2023 8:00 AM CDT Office Visit [facility] Diabetes Endocrine Care of [address] [place] [address] Marialuisa Daniel, CHRISTOPHER [address] [address] Type 2 diabetes mellitus with hyperglycemia, with [...] file Legal Sex Female 8:53 AM TOOL HONING MACHINE SET UP OPERATOR Gender Identity Female 12/26/2023 10:11 PM CDT Sexual Orientation Straight 12/26/2023 10 :11 PM CDT 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 I am thankful you have trusted me with your care, and hope that you received EXCELLENT care today! Please do not hesitate to call if you have any questions or concerns at [phone]. You may receive a phone call or [...] than once per week. See the Dietitian, Cushion Worker . Call Centralized Scheduling at [phone] to make an appointment. Exercise: Try moving [...] associated with type 2 diabetes mellitus ([facility]) Assessment & Plan: This is a chronic [...] (BMI) of36.0 to 36.9 in adult ([facility]) Assessment & Plan: This is a chronic [...] use of insulin ([facility]) documented in this encounter Results * POCT glucose (06/26/2023 8:09 AM CDT) Glucose Blood, POC 114 mg/dL Blood 06/26/2023 8:09 AM CDT Marialuisa Daniel NP POINT OF CARE TEST ORDERABLES F inal Result documented in this encounter Visit Diagnoses Diagnosis Type 2 diabetes mellitus with hyperglycemia, with long-term current use of insulin ([facility])- Primary Hypertension associated with type 2 diabetes mellitus ([facility]) Hyperlipidemia associated with type 2 diabetes mellitus ([facility]) Class 2 severe obesity due to excess calories with serious comorbidity and body mass index (BMI) of 36.0 to 36.9 in adult ([facility]) documented in this encounter Discontinued [...] 05/30/2023 added in this encounter Care Teams Roof Slater Relationship Specialty Start Date End Date Eron Holliday NP [address] [place] [address] PCP - General Pain Management 07/15/22 documented as of this encounter
--- OUTSIDE RECORDS SUMMARY | 2024-03-03 17:36 | XMS_ITS | Encounter Summary ---
Author Organization [facility] Healthcare Address [address] [place] [address] Care Team Providers Care Network Security Consultant Name Role Phone Eron Holliday NP Primary Care Provider +1- [phone] Reason for Referral * Diagnostic Imaging (Routine) - Closed Specialty Diagnoses / Procedures Referred By Claudette smith Referred To Contact Diagnoses Primary osteoarthritis of right knee Procedures XR Knee Right 3 Views Regi Khan DO [address] [place] [address] Phone: tel: fax: [address] [phone] Referral ID Status Reason Start Date Expiration Date Visits Re quested Visits Authorized [id number] Closed 08/08/2023 09/06/2024 1 1 Reason for Visit * Reason Comments Pain Encounter Details Date Type Department Care Team (Late st Contact Info) Description 08/15/2023 11:30 AM CDT Office Visit [facility] Orthopedics and Sports Medicine [address] [place] [phone] Regi Khan DO [address] [place] [address] Primary osteoarthritis of right knee (Primary Dx) Social History Tobacco Use Types Packs/Day Years Used Date Smoking Tobacco: Former Cigarettes Q uit: 03/20/2020 Smokeless Tobacco: Never Personal Safety Answer Date Recorded Getting School Help Needed Not on file 02/13 Comments No Sex and Gender Information Value Date Recorded Sex Assigned at Not on file Legal Sex Female 8:53 AM FUNERAL CAR CHAUFFEUR Gender Identity Female 12/26/2023 10:11 PM CDT Sexual Orientation Straight 12/26/2023 10 :11 PM CDT 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 She works taking [employer]. She does have a history of a stent in her right leg and is on aspirin and Plavix. Patient states she lives with her dad who could help her after surgery. PAST MEDICAL HISTORY She has a past medical history of Anxiety, Arthritis, Arthropathy of cervical facet joint, DDD (degenerative disc disease), cervical, Depression, Diabetes ([facility]), Dizziness, Foraminal stenosis of cervical region, GERD (gastroesophageal reflux disease), High blood pressure, Type 1 diabetes mellitus ([facility]) (08/04/2018), Uncontrolled type 2 diabetes mellitus with hyperglycemia ([facility]) (03/14/2017), and Uncontrolled type 2 diabetes mellitus with hyperglycemia, with long-term current use of insulin ([facility]) (04/03/2017). PAST SURGICAL HISTORY She has a past surgical history that includes section; Knee arthroscopy; Carpal tunnel release; Elbow surgery; and Tonsillectomy. MEDICATIONS She has a current medication list which includes the following prescription(s): aspirin, pediatric multivitamin-iron, ozempic, alcohol swabs, aspirin, atorvastatin, blood sugar diagnostic, blood-glucose meter, dexcom g7 sensor, dexcom g6 transmitter, buspirone, cetirizine, cholecalciferol, citalopram, clopidogrel, cyclobenzaprine, dexcom g6 programming instructor, dexcom g6 transmitter, dexcom g7 sensor, empagliflozin, [...] Chemical DVT prophylaxis: We will follow the ui designer recommendations for restarting aspirin and Plavix postoperatively, [...] severe osteoarthritis. Regi Khan DO Orthopedic Surgeon [facility] 08/26/2023 8:57 AM documented in [...] the weight-bearing view of the right. ?? [id number] joint space narrowing medial compartment. IMPRESSION: No acute fracture. Moderate osteoarthritis medial compartment right knee with trivial change of the patellofemoral joint. Mild osteoarthritis medial compartment left knee on more limited view. THIS IS AN ELECTRONICALLY VERIFIED FINAL REPORT 08/16/2023 6:20 PM - Electronically signed by ??Lamont SIMONS: KRISTYN D: ??08/16/2023 6:20 PM T: ??08/16/2023 6:20 PM Report ID: [id number] Reading Location: ??[id number] Procedure Note Lamont Conway MD - 08/16/2023 [...] in the weight-bearing view of the right. Sqmo-gd-susnvixi joint space narrowing medial compartment. IMPRESSION: No acute fracture. Moderate osteoarthritis medial compartment right knee with trivial changeof the patellofemoral joint. Mild osteoarthritis medial compartment left knee on more limited view. THIS IS AN ELECTRONICALLY VERIFIED FINAL REPORT 08/16/2023 6:20 PM - Electronically signed by Lamont SIMONS Report ID: [id number] Reading Location: [id number] Regi Khan DO IMG XR PROCEDURES Final [...] sugar diagnostic (ONETOUCH ULTRA BLUE TEST STRIP [facility]) USE TO CHECK BLOOD GLUCOSE 4 TIMES [...] 4 added in this encounter Care Teams Network Security Consultant Relationship Specialty Start Date End Date Eron Holliday NP [address] [place] [address] PCP - General Pain Management 07/15/22 documented as of this encounter
--- OUTSIDE RECORDS SUMMARY | 2024-03-03 17:36 | XMS_ITS | Encounter Summary ---
Author Organization [facility] Healthcare Address [address] [place] [address] Care Team Providers Care Seaming Machine Operator Name Role Phone Eron Holliday NP Primary Care Provider +1- [phone] Encounter Details Date Type Department Care Team (Late st Contact Info) Description 09/08/[address] [facility] OP Physical Therapy [address] [place] [address] Social History Tobacco Use Types Packs/Day Years Used Date Smoking Tobacco: Former Cigarettes Q uit: 03/20/2020 Smokeless Tobacco: Never Personal Safety Answer Date Recorded Getting School Help Needed Not on file 02/13 Comments No Sex and Gender Information Value Date Recorded Sex Assigned at Not on file Legal Sex Female 8:53 AM DIRECTOR OF PROFESSIONAL SERVICES Gender Identity Female 12/26/2023 10:11 PM CDT Sexual Orientation Straight 12/26/2023 10 :11 PM CDT Occupation Industry Job Start Date Job End Date [employer] Not on file Not on file Not on file documented as of this encounter Plan of Treatment Not on file documented as of this encounter Visit Diagnoses Not on filedocumented in this encounter Care Teams Seaming Machine Operator Relationship Specialty Start Date End Date Eron Holliday NP [address] [facility] [place] [address] PCP - General Pain Management 07/15/22 documented as of this encounter
--- OUTSIDE RECORDS SUMMARY | 2024-03-03 17:36 | XMS_ITS | Encounter Summary ---
Author Organization [facility] Healthcare Address [address] [place] [address] Care Team Providers Care Process Tank Tender Name Role Phone Eron Holliday NP Primary Care Provider +1- [phone] Encounter Details Date Type Department Care Team (Late st Contact Info) Description 09/04/[address] [address] Delma Morgan RN Social History Tobacco Use Types Packs/Day Years Used Date Smoking Tobacco: Former Cigarettes Q uit: 03/20/2020 Smokeless Tobacco: Never Personal Safety Answer Date Recorded Getting School Help Needed Not on file 02/13 Comments No Sex and Gender Information Value Date Recorded Sex Assigned at Not on file Legal Sex Female 8:53 AM ICE SKATING INSTRUCTOR Gender Identity Female 12/26/2023 10:11 PM CDT Sexual Orientation Straight 12/26/2023 10 :11 PM CDT 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
--- OUTSIDE RECORDS SUMMARY | 2024-03-03 17:36 | XMS_ITS | Encounter Summary ---
Author Organization [facility] Healthcare Address [address] [place] [address] Care Team Providers Care Quality Assurance Tester Name Role Phone Eron Holliday NP Primary Care Provider +1- [phone] Encounter Details Date Type Department Care Team (Late st Contact Info) Description 04/28/2023 Telephone [facility] Diabetes Endocrine Care of [address] [place] [address] Marialuisa Daniel, LIGHTER [address] [facility] [address] [place] [address] Social History Tobacco Use Types Packs/Day Years Used Date Smoking Tobacco: Former Cigarettes Q uit: 03/20/2020 Smokeless Tobacco: Never Personal Safety Answer Date Recorded Getting School Help Needed Not on file 02/13 Comments No Sex and Gender Information Value Date Recorded Sex Assigned at Not on file Legal Sex Female 8:53 AM COREMAKER PIPE Gender Identity Female 12/26/2023 10:11 PM CDT Sexual Orientation Straight 12/26/2023 10 :11 PM CDT Occupation Industry Job Start Date Job End Date [employer] Not on file Not on file Not on file documented as of this encounter Miscellaneous Notes * Telephone Encounter - Tania Staley - 04/28/2023 11:17 AM CST She would like you to return her call regarding upping her Monjar[employer] MAKER PIPE documented in this encounter Plan of Treatment Not on file documented as of this encounter Visit Diagnoses Not on filedocumented in this encounter Care Teams Quality Assurance Tester Relationship Specialty Start Date End Date Eron Holliday NP [address] [place] [address] [place] [address] PCP - General Pain Management 07/15/22 documented as of this encounter
--- OUTSIDE RECORDS SUMMARY | 2024-03-03 17:36 | XMS_ITS | Encounter Summary ---
Author Organization [facility] Healthcare Address [facility] [place] [address] Care Team Providers Care Associate Professor Of Biostatistics Name Role Phone Eron Holliday NP Primary Care Provider [phone] Marialuisa Daniel NP Unavailable [phone] Leobardo Bhagat MD Unavailable Florin Dixon MD Unavailable Reason for Visit * Auth/Cert Specialty Diagnoses / Procedures Referred By Claudette smith Referred To Contact Diagnoses Primary osteoarthritis of right knee Primary osteoarthritis of right knee [M17.11] Procedures IA ARTHRP KNE CONDYLE&PLATU MEDIAL&LAT COMPARTMENTS RIGHT TOTAL KNEE ARTHROPLASTY Referral ID Status Reason Start Date Expiration Date Visits Re quested Visits Authorized [id number] 1 1 Encounter Details Date Type Department Care Team (Late st Contact Info) Description 10/06/2023 7:30 AM CDT - 10/06/2023 10:15 AM CDT Surgery [facility] OR [address] [place] [address] Regi Khan DO [address] [place] [id number] RIGHT TOTAL KNEE ARTHROPLASTY Surgery Details Date/Time [...] Cigarettes Q uit: 03/20/2020 Smokeless Tobacco: Never [facility] Utilities Answer Date Recorded In the past 12 months has e [employer], gas, oil, or water [employer] threatened to shut off services in your [...] any clubs o r organizations such as lutheran groups, unions, fraternal or athletic groups, or [...] any time in the past 12 m [facility], were you homeless or living [...] on file Legal Sex Female 8:53 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 female who presented to [facility] on 10/06/2023. Sandy Lopez underwent Procedure(s) [...] daily Commonly known as: PLAVIX Dexcom G6 Cold Strip Roller misc USE TO TEST BLOOD SUGAR DIRECTED [...] Service Line: Home Health Primary disciplines requested: Shelter Physical Therapy Home Health Services: Therapy to [...] healed and surgeon gives clearance. Walker The prkr-[id number] evaluation was performed on: 10/07/2023 Primary Care Physician at Discharge: Eron Holliday NP [phone] Follow up: [facility] Orthopedics and Sports Medicine [address] [place] [phone] Future Appointments Date Time Provider Department Center 10/10/2023 11:00 AM Marialuisa Daniel NP ENDO [facility] Specialty 10/21/2023 8:30 AM Yoan Edwards PA [facility] OS 340 [facility] Specialty 10/22/2023 10:00 AM Felipe Cox MD [facility] NEURO [facility] ORT NEUR 11/20/2023 2:45 PM Regi Khan DO [facility] OS 110 MH Specialty Contact Information for Follow-ups [facility] Specialty: Orthopedic Surgery [address] [place] [address] [place] [phone] Next Steps: Follow up Questions: Service Line: Home Health Primary disciplines requested: Shelter Physical Therapy Home Health Services: Therapy to [...] Care Everywhere. * Knee Replacement (Discharge Care) (Namibian) documented in this encounter Medications at Time [...] gauge misc 4 OneTouch Verio Flex meter [facility] [address] (PROTONIX) 40 mg EC [...] unit) tablet 3 11/20/19 24 Dexcom G6 Cold Strip Roller miscIndications:Typ e 2 diabetes mellitus with hyperglycemia, [...] 1102 Patient Spiritual Assessment Spirituality Assessed Yes Rastafari Affiliation Lutheran Active in Oriental Orthodox Yes Place of Scientology [facility] Spiritual Needs Prayer Clinical Encounter Type Visited With Patient Response Type Routine visit Routine Visit Introduction Reason for visit Support Interventions Interventions Offer spiritual/christian support;Prayer * Hudson Campbell PTA - 10/07/2023 [...] Time 1015 Time Calculation (min) 42 min Interdisciplinary Professor Services Utilized: NO Educated the patient to the role of physical therapy, plan of care, goals of therapy, rationale forprogressing mobility and home exercise program, weight bearing precautions, and home safety. Patient was left with all needs met and equipment intact. Mobility and ADL status posted at bedsideand within medical record. Multi-Disciplinary Problems (from Physical Therapy) Active Problems Problem: PT [facility] Start Date: 10/06/23 Goal Start Date Expected End Date End Date PT LT - [facility] 1 10/06/23 10/20/23 -- Goal Details: Pt will transfer supine<>sit independently Progressing Goal Start Date Expected End Date End Date PT LT - [facility] 2 10/06/23 10/20/23 -- Goal Details: Pt will transfer sit<>stand with wheeled walker, independently Progressing Goal Start Date Expected End Date End Date PT LT - [facility] 3 10/06/23 10/20/23 -- Goal Details: Pt will ambulate 150 feet with wheeled walker, independently Progressing Goal Start Date Expected End Date End Date PT [facility] - [facility] 4 10/06/23 10/20/23 -- Goal Details: Pt will ascend/descend 5 stairs with rail, independently Progressing Goal Start Date Expected End Date End Date PT LT - [facility] 5 10/06/23 10/20/23 -- Goal Details: Pt [...] and compressible (-) Tiny's sign Assessment: 1. IA ARTHRP KNE CONDYLE&PLATU MEDIAL&LAT COMPARTMENTS [[id number]] (RIGHT TOTAL KNEE ARTHROPLASTY) 1 Day Post-Op [...] Surgery 10/07/23 7:47 AM * Angelica Gomez, MOBILE EQUIPMENT MECHANIC - 10/06/2023 3:21 PM CDT Physical Therapy [...] Time 1544 Time Calculation (min) 23 min Interdisciplinary Professor Services Utilized: NO Educated the patient to [...] End Date End Date PT LTG - [facility] 1 10/06/23 10/20/23 -- Goal Details: Pt will transfer supine<>sit independently-NT Goal Start Date Expected End Date End Date PT LTG - [facility] 2 10/06/23 10/20/23 -- Goal Details: Pt will transfer sit<>stand with wheeled walker, independently-NT Goal Start Date Expected End Date End Date PT LTG - [facility] 3 10/06/23 10/20/23 -- Goal Details: Pt will ambulate 150 feet with wheeled walker, independently-NT Goal Start Date Expected End Date End Date PT LT - [facility] 4 10/06/23 10/20/23 -- Goal Details: Pt will ascend/descend 5 stairs with rail, independently-NT Goal Start Date Expected End Date End Date PT LTG - [facility] 5 10/06/23 10/20/23 -- Goal Details: Pt [...] Equipment-Currently Using None Prior Function Level of Rawson Independent with ADLs;Independent functional transfers;Independent with ambulation;Independent [...] End Date End Date OT LT - [facility] 2 10/06/23 10/20/23 -- Goal Details: 2) FUNCTIONAL MOBILITY TO/FROM BATHROOM AND ALL ASPECTS TOILETING MODIFIED INDEP WITHDME. Goal Start Date Expected End Date End Date OT [facility] - [facility] 3 10/06/23 10/20/23 -- Goal Details: 3) STAND AT SINK X4 MIN FOR ADL WITH GOOD BALANCE. Goal Start Date Expected End Date End Date OT [facility] - [facility] 4 10/06/23 10/20/23 -- Goal Details: 5) PERFORM ITEM RETRIEVAL FROM HIGH/LOW POSITIONS WITH GOOD BALANCE/SAFETY. Goal Start Date Expected End Date End Date OT [facility] - [facility] 5 10/06/23 10/20/23 -- Goal Details: 4) [...] posted at bedside and within medical record. Interdisciplinary Professor Services Utilized: NO Patient is identified by name and date of on this visit. Cotx with ADA Swenson for safety of patient and staff due to current diagnosis, medical status, and unknown level of functional performance prior to evaluation. * Messi Castro PT - 10/06/2023 1:39 PM CDT Physical Therapy 10/06/23 8794 General Chart Reviewed Yes Session Type Evaluation [...] of the house. 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 Start Date: 10/06/23 Goal Start Date Expected End Date End Date PT [facility] - [facility] 1 10/06/23 10/20/23 -- Goal Details: Pt will transfer supine<>sit independently Goal Start Date Expected End Date End Date PT [facility] - [facility] 2 10/06/23 10/20/23 -- Goal Details: Pt will transfer sit<>stand with wheeled walker, independently Goal Start Date Expected End Date End Date PT [facility] - [facility] 3 10/06/23 10/20/23 -- Goal Details: Pt will ambulate 150 feet with wheeled walker, independently Goal Start Date Expected End Date End Date PT [facility] - [facility] 4 10/06/23 10/20/23 -- Goal Details: Pt will ascend/descend 5 stairs with rail, independently Goal Start Date Expected End Date End Date PT [facility] - [facility] 5 10/06/23 10/20/23 -- Goal Details: Pt will perform RLE TKR exercises in supine/sitting x 10 reps each, independently Interdisciplinary Professor Services Utilized: NO Educated the patient to [...] DDD (degenerative disc disease), cervical, Depression, Diabetes ([facility]), Dizziness, Foraminal stenosis of cervical region, GERD (gastroesophageal reflux disease), High blood pressure, Type 1 diabetes mellitus ([facility]) (08/04/2018), Uncontrolled type 2 diabetes mellitus with hyperglycemia ([facility]) (03/14/2017), and Uncontrolled type 2 diabetes mellitus with hyperglycemia, with long-term current use of insulin ([facility]) (04/03/2017). PAST SURGICAL HISTORY She has a past surgical history that includes section; Knee arthroscopy; Carpal tunnel release; Elbow surgery; and Tonsillectomy. MEDICATIONS She has a current medication list which includes the following prescription(s): aspirin, pediatric multivitamin-iron, ozempic, alcohol swabs, aspirin, atorvastatin, blood sugar diagnostic, blood-glucose meter, dexcom g7 sensor, dexcom g6 transmitter, buspirone, cetirizine, cholecalciferol, citalopram, clopidogrel, cyclobenzaprine, dexcom g6 basketball referee, dexcom g6 transmitter, dexcom g7 sensor, empagliflozin, [...] physical therapy Regi Khan DO Orthopedic Surgeon [facility] 10/06/2023 7:23 AM documented in this encounter Consult Notes * Maureen Hardy RN - 10/06/2023 3:52 PM CDTAssociated Order(s): IP CONSULT TO PUMP INSTALLATION AND SERVICER Sandy has and insulin pump. Pump orders [...] Discharge Disposition Home health care Specify Facility [facility] Contact Number [phone] Discharge Records Chart Copied Recommended Discharge Level of Senior Living health care Actual Discharge Level of Senior Living health care Does Actual Level of Care Match Care Team Recommendation? Yes Post Acute Care Plan Home Care Services Yes Type of Home Care Services Home therapies;Nurse visit Home Care Services Name and Phone Number [facility] [phone] OP Services N/A DME N/A Post Acute [...] Coverage Payor Plan Insurance Group Employer/Plan Group [facility] Payor Plan Address Payor Plan Phone Number Payor Plan Fax Number Effective Dates ATTN: CLAIMS DEPT [phone] 02/24/2023 - None Entered [address] [facility] [address] Subscriber Name Subscriber Date Member ID SANDY LOPEZ 1965 [id number] Pharmacy: [place], [place] - [address] [facility] [id number] Primary Care Provider: Eron Holliday NP Prior [...] homeless or living in a detention (including now)?: No (10/07/23 1200) Utilities: No, (10/07/231158) Social Connections: In a typical week, how many times do you talk on the phone with family, friends, or neighbors?: More than three times a week How often do you get together with friends or relatives?: More than three times a week How often do you attend lutheran or christian services?: Never Do you belong to any clubs or organizations such as lutheran groups, unions, fraternal or athletic groups, or [...] needs include: Home Health: shelter, Physical therapy (10/07/23 1158) Behavioral Health Services: Behavioral Health Services: No (10/07/23 1158) Anticipated Level of Care: Anticipated discharge level of care: Home health care Pt/Family agrees with Anticipated Level of Care: Yes (10/07/23 1158) Patient expects to be Discharged to: Home health care, (10/07/23 1158) Additional Information: Supervisor Home Economics met with patient at bedside to discuss discharge plans. Patient stated that she plans to return home at discharge with support from her father. Patient stated that she has a wheeled walker. Patient confirmed that a CPM had been ordered by Dr. Khan's office and delivered to the home through [employer] ( ). CONSUMER SAFETY OFFICER explained home health services, provided list of in-network agencies, and asked if patient hada preference to which home health company was arranged. Patient stated that she doesn't have a preference. Referrals sent via [facility]. HH packet on chart. Discharge Home With: [facility] Home Health [facility] [place] [address] Ext 4 has accepted patient with start of care on 10/12/23. Patient is aware of dc plans and agency accepted. HH Orders have been completed and sent to accepting Agency. Supervisor Home Economics to remain available to assist as needed. [...] Collaboration with Patient, Provider, Direct Care Nurse, Director Of Curriculum, and other members of theHealth Care Team to assure needed interventions completed. 2. Return patient to optimal level of self-care post discharge. 3. Chalk Cutter will follow for Discharge Planning - interventions as needed 4. Anticipated level of care at discharge 5. Planned Discharge Disposition Isabela Segovia LCSW 10/07/2023 12:03 PM * Plan of Care - Aicha Sierra RN - 10/07/2023 10:56 AM CDT Home health referral reviewed; [facility] will accept with projected SOC date 10/12/23 for SN PT. Isabela Segovia LCSW notified. Aicha Sierra RN-BSN Pc Network Technician [facility] [phone] * [facility] Note - Isabela Segovia, CONSUMER SAFETY OFFICER - 10/07/2023 9:19 AM CDT Images from [...] Mobility Equipment-Currently Using None -KH Level of Rawson Independent with ADLs;Independent functional transfers;Independent with ambulation;Independent [...] floor of the house. 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 -[place] Fall within the last 6 [...] Friday through Friday, 1-2x/day Friday and Friday -[place] Treatment/Interventions during current admission Balance Training;Bed mobility;Endurance [...] Initials Name Effective Dates EH Angelica Gomez, MOBILE EQUIPMENT MECHANIC 06/29/20 - PT Notes 10/06/2023 3:53 PM [...] LRC Intake/Output 10/06/23 0700 - 10/07/23 0659 [phone] Total Intake (ml) 1700 516.7 1050 3266.7 Output (ml) 150 0703 665 3505 Net (ml) 1550 -533.3 200 1216.7 Last [...] mL in sterile water (premix) 2,000 mg [[id number]] Ordering Provider: Regi Khan DO Status: Completed [...] Bateman CRNA acetaminophen (TYLENOL) tablet 975 mg [[id number]] Ordering Provider: Almita Ramirez NP Status: Completed (Past End Date/Time) Ordered On: 10/06/23526 Starts/Ends: 10/06/23 0600 - 10/06/23 0558 Ordered Dose (Remaining/Total): 975 mg (0/1) Route: oral Frequency: Once Ordered Rate/Order Duration: -- / -- Timestamps Action Dose Route Other Information 10/06/23 0558 Given 975 mg oral Performed by: Elvira Reis RN Scanned Package: 28147-886-74, 73617-105-98, 20436-884-76 Lactated Ringer's (LR) infusion [[id number]] Ordering Provider: Olayinka Zayas MD Status: Verified Ordered On: 10/06/23922 Start: 10/06/23 1000 Ordered Dose (Remaining/Total): 125 mL/hr (--/--) Route: intravenous Frequency: Continuous Ordered Rate/Order Duration: 125 mL/hr / -- Line Med Link Info Comment Peripheral IV 10/06/23 20 G Anterior;Right Forearm 10/06/23 1128 by Tania Merritt RN -- (No admins scheduled or recorded for this medication) busPIRone (BUSPAR) tablet 5 mg [[id number]] Ordering Provider: Regi Khan DO Status: Dispensed Ordered On: 10/06/23 112 Start: 10/06/23 2100 Ordered Dose (Remaining/Total): 5 mg (--/--) Route: oral Frequency: 2 times daily Ordered Rate/Order Duration: -- / -- Timestamps Action Dose Route Other Information 10/07/23 0857 Given 5 mg oral Performed by: Tania Merritt RN Scanned Package: 42732-715-06 clopidogreL (PLAVIX) tablet 75 mg [[id number]] Ordering Provider: Regi Khan DO Status: Dispensed Ordered On: 10/06/23 1123 Start: 10/06/23 1200 Ordered Dose (Remaining/Total): 75 mg (--/--) Route: oral Frequency: Daily Ordered Rate/Order Duration: -- / -- Timestamps Action Dose Route Other Information 10/07/23 0858 Given 75 mg oral Performed by: Tania Merritt RN Scanned Package: 54305-453-68 ezetimibe (ZETIA) tablet 10 mg [[id number]] Ordering Provider: Regi Khan DO Status: Dispensed Ordered On: 10/06/23 112 Start: 10/07/23 0900 Ordered Dose (Remaining/Total): 10 mg (--/--) Route: oral Frequency: Daily Ordered Rate/Order Duration: -- / -- Timestamps Action Dose Route Other Information 10/07/23 0857 Given 10 mg oral Performed by: Tania Merritt RN Scanned Package: 25533-025-68 famotidine (PEPCID) tablet 20 mg [[id number]] Ordering Provider: Regi Khan DO Status: Dispensed Ordered On: 10/06/231122 Start: 10/06/23 2100 Ordered Dose (Remaining/Total): 20 mg (--/--) Route: oral Frequency: 2 times daily Ordered Rate/Order Duration: -- / -- Timestamps Action Dose Route Other Information 10/07/23 0856 Given 20 mg oral Performed by: Tania Merritt RN Scanned Package: 42153-562-91 losartan (COZAAR) tablet 100 mg [[id number]] Ordering Provider: Regi Khan DO Status: Dispensed Ordered On: 10/06/231122 Start: 10/06/23 1200 Ordered Dose (Remaining/Total): 100 mg (--/--) Route: oral Frequency: Daily Ordered Rate/Order Duration: -- / -- Timestamps Action Dose Route Other Information 10/07/23 0856 Given 100 mg oral Performed by: Tania Merritt RN Scanned Package: [id number] hydroCHLOROthiazide (HYDRODIURIL) tablet 12.5 mg [[id number]] Ordering Provider: Regi Khan DO Status: Dispensed Ordered On: 10/06/23 112 Start: 10/06/23 1200 Ordered Dose (Remaining/Total): 12.5 mg (--/--) Route: oral Frequency: Daily Ordered Rate/Order Duration: -- / -- Timestamps Action Dose Route Other Information 10/07/23 0856 Given 12.5 mg oral Performed by: Tania Merritt RN Scanned Package: 70320-301-55 meclizine (ANTIVERT) tablet 25 mg [[id number]] Ordering Provider: Regi Khan DO Status: Verified Ordered On: 10/06/231122 Start: 10/06/231215 Ordered Dose (Remaining/Total): 25 mg (--/--) Route: oral Frequency: Daily PRN Ordered Rate/Order Duration: -- / -- (No admins scheduled or recorded for this medication) propranoloL (INDERAL) tablet 20 mg [[id number]] On hold since yesterday at 1226 until manually unheld; held by Yoan Edwards PAHold Reason: Change in Patient Status Ordering Provider: Regi Khan DO Status: Verified Ordered On: 10/06/231122 Start: 10/06/23 1200 Ordered Dose (Remaining/Total): 20 mg (--/--) Route: oral Frequency: 2 times daily Ordered Rate/Order Duration: -- / -- (No admins scheduled or recorded for this medication) SUMAtriptan (IMITREX) tablet 50 mg [[id number]] Ordering Provider: Regi Khan DO Status: Verified Ordered On: 10/06/231122 Start: 10/06/231122 Ordered Dose (Remaining/Total): 50 mg (--/--) Route: oral Frequency: Once as needed Ordered Rate/Order Duration: -- / -- Admin Instructions: May repeat dose once in 2 hours if unresolved. Do not exceed 200 mg in 24 hours. (No admins scheduled or recorded for this medication) zolpidem (AMBIEN) tablet 5 mg [[id number]] Ordering Provider: Regi Khan DO Status: Verified Ordered On: 10/06/231122 Start: 10/06/231122 Ordered Dose (Remaining/Total): 5 mg (--/--) Route: oral Frequency: Nightly PRN Ordered Rate/Order Duration: -- / -- (No admins scheduled or recorded for this medication) aspirin enteric coated tablet 81 mg [[id number]] Ordering Provider: Regi Khan DO Status: Dispensed Ordered On: 10/06/231122 Start: 10/07/23 0900 Ordered Dose (Remaining/Total): 81 mg (--/--) Route: oral Frequency: Daily Ordered Rate/Order Duration: -- / -- Admin Instructions: Do not crush, chew, cut, dissolve, open or otherwise manipulate tablet/capsule. Timestamps Action Dose Route Other Information 10/07/23 0856 Given 81 mg oral Performed by: Tania Merritt RN Scanned Package: 87195-704-05 sodium chloride 0.9% flush 0.5-20 mL [[id number]] Ordering Provider: Regi Khan DO Status: Verified Ordered On: 10/06/231122 Start: 10/06/23 1400 Ordered Dose (Remaining/Total): 0.5-20 mL (--/--) Route: intra-catheter Frequency: Every 8 hours scheduled Ordered Rate/Order Duration: -- / -- Admin Instructions: Flush volume based on line type and size. Timestamps Action Dose Route Other Information 10/06/23 2212 Given 10 mL intra-catheter Performed by: Deborah Ortiz RN Scanned Package: [id number] sodium chloride 0.9% flush 0.5-20 mL [[id number]] Ordering Provider: Regi Khan DO Status: Verified Ordered On: 10/06/231122 Start: 10/06/231122 Ordered Dose (Remaining/Total): 0.5-20 mL (--/--) Route: intra-catheter Frequency: As needed Ordered Rate/Order Duration: -- / -- Admin Instructions: Flush volume based on line type and size. Flush before and after each use. (No admins scheduled or recorded for this medication) Lactated Ringer's (LR) infusion [[id number]] Ordering Provider: Regi Khan DO Status: Dispensed [...] mL in sterile water (premix) 2,000 mg [[id number]] Ordering Provider: Regi Khan DO Status: Completed [...] Performed by: Deborah Ortiz RN Scanned Package: [id number], 3578-2459-10 acetaminophen (TYLENOL) tablet 975 mg [[id number]] Ordering Provider: Regi Khan DO Status: Dispensed Ordered On: 10/06/23 1123 Start: 10/06/23 1500 Ordered Dose (Remaining/Total): 975 mg (--/--) Route: oral Frequency: Every 6 hours scheduled Ordered Rate/Order Duration: -- / -- Timestamps Action Dose Route Other Information 10/07/23 0857 Given 975 mg oral Performed by: Tania Merritt RN Scanned Package: 15504-659-89, 74872-568-15, 88482-936-58 oxyCODONE (ROXICODONE) tablet 5 mg [[id number]] Ordering Provider: Regi Khan DO Status: Dispensed [...] Performed by: Deborah Ortiz RN Scanned Package: [id number] HYDROmorphone (DILAUDID) injection 0.2 mg [[id number]] Ordering Provider: Regi Khan DO Status: Dispensed [...] Performed by: Deborah Ortiz RN Scanned Package: [id number] ondansetron (ZOFRAN) injection 4 mg [[id number]] Ordering Provider: Regi Khan DO Status: Verified Ordered On: 10/06/231122 Start: 10/06/231122 Ordered Dose (Remaining/Total): 4 mg (--/--) Route: intravenous Frequency: Every 6 hours PRN Ordered Rate/Order Duration: -- / 2 Minutes Admin Instructions: Proceed to prochlorperazine if no relief within 30 minutes. (No admins scheduled or recorded for this medication) polyethylene glycol (MIRALAX) packet 17 g [[id number]] Ordering Provider: Regi Khan DO Status: Verified Ordered On: 10/06/231122 Start: 10/06/23 1200 Ordered Dose (Remaining/Total): 17 g (--/--) Route: oral Frequency: Daily Ordered Rate/Order Duration: -- / -- Admin Instructions: Hold for diarrhea. (No admins scheduled or recorded for this medication) docusate sodium (COLACE) capsule 100 mg [[id number]] Ordering Provider: Regi Khan DO Status: Dispensed Ordered On: 10/06/231122 Start: 10/06/23 1200 Ordered Dose (Remaining/Total): 100 mg (--/--) Route: oral Frequency: 2 times daily Ordered Rate/Order Duration: -- / -- Admin Instructions: Hold for diarrhea Timestamps Action Dose Route Other Information 10/07/23 0857 Given 100 mg oral Performed by: Tania Merritt RN Scanned Package: [id number] bisacodyL (DULCOLAX) suppository 10 mg [[id number]] Ordering Provider: Regi Khan DO Status: Verified Ordered On: 10/06/231122 Start: 10/06/231122 Ordered Dose (Remaining/Total): 10 mg (--/--) Route: rectal Frequency: Daily PRN Ordered Rate/Order Duration: -- / -- (No admins scheduled or recorded for this medication) calcium carbonate (TUMS) chewable tablet 1,000 mg [[id number]] Ordering Provider: Regi Khan DO Status: Dispensed Ordered On: 10/06/231122 Start: 10/06/23 1200 Ordered Dose (Remaining/Total): 400 mg of elemental calcium (--/--) Route: oral Frequency: 2 times daily Ordered Rate/Order Duration: -- / -- Timestamps Action Dose Route Other Information 10/07/23 0858 Given 1,000 mg oral Performed by: Tania Merritt RN Scanned Package: [id number], [id number] benzocaine-menthoL (CHLORASEPTIC) lozenge 1 lozenge [[id number]] Ordering Provider: Regi Khan DO Status: Dispensed Ordered On: 10/06/231122 Start: 10/06/231122 Ordered Dose (Remaining/Total): 1 lozenge (--/--) Route: mouth/throat Frequency: Every 4 hours PRN Ordered Rate/Order Duration: -- / -- Timestamps Action Dose Route Other Information 10/07/23 0846 Given 1 lozenge mouth/throat Performed by: Tania Merritt RN Scanned Package: [id number] dextrose (GLUTOSE) 40 % gel 15 g [[id number]] Ordering Provider: Regi Khan DO Status: Verified [...] Call MD for each episode of hypoglycemia. MANAGER MOLECULAR STATES GLUTOSE-15 CONTAINS GLUCOSE 40% W/W (50% W/V) (No admins scheduled or recorded for this medication) dextrose (D10W) 10% bolus 250 mL [[id number]] Ordering Provider: Regi Khan DO Status: Verified [...] hour post treatment. If BG is less cxvo563 mg/dL, repeat Q15 minute BG checks and treatment. Call MD for each episode of hypoglycemia. (No admins scheduled or recorded for this medication) glucagon injection 1 mg [[id number]] Ordering Provider: Rgei Khan DO Status: Verified Ordered On: 10/06/23 [...] this medication) escitalopram (LEXAPRO) tablet 15 mg [[id number]] Ordering Provider: Regi Khan DO Status: Dispensed Ordered On: 10/06/23 1435 Start: 10/07/23 0900 Ordered Dose (Remaining/Total): 15 mg (--/--) Route: oral Frequency: Daily Ordered Rate/Order Duration: -- / -- Timestamps Action Dose Route Other Information 10/07/23 0856 Given 15 mg oral Performed by: Tania Merritt RN Scanned Package: [id number], [id number] insulin lispro (HumaLOG, ADMELOG) 100 unit/mL injection 9 Units [[id number]] Ordering Provider: Regi Khan DO Status: Verified [...] 100 UNIT/ML patient supplied pump 0-25 Units [[id number]] Ordering Provider: Regi Khan DO Status: Verified [...] Shift: pain control; void without difficulty; sleep Skilled Nursing Patient Centered Goal for Treatment: discharge to [...] for the Shift: safety and pain control Business Improvement Manager Patient Centered Goal for Treatment: discharge to [...] DATE OF : 1965 CONTACT SERIAL NUMBER: [id number] PRIMARY CARE PHYSICIAN: Eron Holliday NP PROCEDURE DATE: October 06, 2023 Pre-op Diagnosis * Primary osteoarthritis of right knee [M17.11] Post-op Diagnosis * Primary osteoarthritis of right knee [M17.11] Procedure(s) (LRB): RIGHT TOTAL KNEE ARTHROPLASTY (Right) PROCEDURE LOCATION: [facility] OPERATING ROOM 06 SURGEON: Surgeons and Role: * Erin, Blakelyn, DO - Primary ASSISTANTS: Aquatic Centre Manager: Carrie Daniel RN Physician Cash Sales Audit Clerk: Yoan Edwards PA Scrub: Marcial De La Garza RN RAILROAD CAR PAINTER: Jose R Daniel CRNFA ANESTHESIA: Anesthesiologist: Olayinka Zayas MD ALIGNER: Cheyenne Bateman CRNA ANESTHESIA TYPE: General PROPHYLACTIC IV ANTIBIOTICS: IV Ancef COMPLICATIONS: None apparent at the end of the case FINDINGS: Severe end stage tricompartmental knee osteoarthritis SPECIMENS: None EBL: 25 mL TOURNIQUET TIME: Not utilized Physician assistant produce manager Yoan Edwards was required throughout the case, including preoperatively and postoperatively for their specific skills set with patient positioning, skilled retraction, manipulation of the operative extremity, retraction of tissues and closure. Due to the complexity of the case, the skill set of an orthopedic physician assistant produce manager was needed throughout the case. No other qualified assistants were available for the case and their assistance was critical to completion of the case in a safe, timely and effective manner. IMPLANTS: Implant Name Type Inv. Item Serial No. Buildings And Grounds Superintendent Lot No. LRB No. Used Action [employer] Attune Cruciate Retain Cementless Knee Right 5 Narrow Component [id number] - [id number] [employer] Attune Cruciate Retain Cementless Knee Right 5 Narrow Component [id number] [employer] [id number] Right 1 Implanted [employer] Attune 35mm Cemented Medialize Knee Dome Patellar Aox Sterile [id number] - [id number] [employer] Attune 35mm Cemented Medialize Knee Dome Patellar Aox Sterile [id number] [employer] [id number] Right 1 Implanted [employer] ATTUNE FB TIB BASE SZ 5 POR [id number] - [id number] [employer] ATTUNE FB TIB BASE SZ 5 POR [id number] [employer] [id number] Right 1 Implanted [employer] Cmw 2 Fast Set Cement 20gm Bone Sterile 3322-020 - [id number] [employer] Cmw 2 Fast Set Cement 20gm Bone Sterile 3322- 020 [employer] [id number] Right 1 Implanted [employer] Insert Tibial Knee Fixed Rm Posterior Stabilized Attune 6mm Size 5 Polyethylene [id number] - [id number] [employer] Insert Tibial Knee Fixed Rm Posterior Stabilized Attune 6mm Size 5 Polyethylene [id number] [employer] [facility] [id number] Right 1 Implanted 1. DePuy Attune CR [...] surgical timeout was then performed according to [facility] protocol identifying the correct patient, surgical procedure, [...] anatomic landmarks using the transepicondylar axis and Gurabo's line. Two smooth pins were placed through [...] then placed in extension and a lamina bobbin fixer was placed laterally and curved knee retractor medially. The medial meniscus was excised using the bovie taking care to protect the MCL. Any remaining bone was removed using a small saw. The lamina bobbin fixer was then moved to the medial side [...] longitudinal traction was utilized coupled with alamina bobbin fixer and an Aquamantys was utilized to minimize [...] reinforcement. The knee was flexed up to fondpfzoegpib38 degrees and interrupted 2-0 vicryl sutures were [...] operative knee Regi Khan DO Orthopedic Surgeon [facility] 10/06/2023 9:32 AM * Perioperative [...] * POCT glucose (10/07/2023 11:32 AM CDT) [facility] Signature Glucose, POC 145 70 - 199 mg/dL Glucose comment 1 Use This Result OLIVIA CUNNINGHAM Blood 10/07/2023 11:3 2 AM CDT 10/07/2023 11:32 AM CDT Regi Khan DO LAB POCT ORDERABLES - DEVICE F inal Result PEREZSTEFFANY OCTAVIO [address] [facility] Department [place] [address] * POCT glucose (10/07/2023 8:24 AM CDT) Glucose, POC 149 70 - 199 mg/dL Glucose comment 1 Use This Result OLIVIA CUNNINGHAM Blood 10/07/2023 8:24 AM CDT 10/07/2023 8:24 AM CDT us Regi Khan DO LAB POCT ORDERABLES - DEVICE F inal Result OLIVIA CUNNINGHAM [address] [facility] Department [place] [address] * eGFR (10/07/2023 2:52 AM [...] LAB BLOOD ORDERABLES Final Resul t OLIVIA [address] [facility] Department [place] [address] * (ABNORMAL) Differential, auto (10/07/2023 2:52 AM CDT) Neutrophil abs 8.1(H) 1.5 - 6.5 K/cumm Imm gran abs 0.0 0.0 - 0.1 K/cumm [facility] Lymphocyte abs 2.4 0.8 - 3.3 K/cumm [facility] Monocyte abs 1.0(H) 0.2 - 0.8 K/cumm [facility] Eosinophil abs 0.0 0.0 - 0.5 K/cumm [facility] Basophil abs 0.0 0.0 - 0.1 K/cumm [facility] Neutrophil pct 70.2 % [facility] Comment: Interpretive Data Percent cell count reference ranges are not reported, since discordance with absolute values may lead to misinterpretation of CBC data. Current Interpretive Data was last revised on 2017. Imm gran pct 0.2 % [facility] Comment: Interpretive Data Percent cell count reference ranges are not reported, since discordance with absolute values may lead to misinterpretation of CBC data. Current Interpretive Data was last revised on 2017. Lymphocyte pct 20.6 % [facility] Comment: Interpretive Data Percent cell count reference ranges are not reported, since discordance with absolute values may lead to misinterpretation of CBC data. Current Interpretive Data was last revised on 2017. Monocyte pct 8.6 % [facility] Comment: Interpretive Data Percent cell count reference ranges are not reported, since discordance with absolute values may lead to misinterpretation of CBC data. Current Interpretive Data was last revised on 2017. Eosinophil pct 0.1 % [facility] Comment: Interpretive Data Percent cell count reference ranges are not reported, since discordance with absolute values may lead to misinterpretation of CBC data. Current Interpretive Data was last revised on 2017. Basophil pct 0.3 % [facility] Comment: Interpretive Data Percent cell count reference ranges are not reported, since discordance with absolute values may lead to misinterpretation of CBC data. Current Interpretive Data was last revised on 2017. Blood 10/07/2023 2:52 AM CDT 10/07/2023 3:03 AM CDT Yoan GIRARD LAB BLOOD ORDERABLES Final Resul t Performing Organization Address [facility] Co de Phone Number [address] [place] [address] * (ABNORMAL) CBC with auto differential (10/07/2023 2:52 AM CDT) WBC 11.5(H) 3.8 - 9.9 K/cumm Hgb 9.8(L) 11.9 - 15.5 g/dL [facility] Hct 31.6(L) 35.6 - 45.5 % [facility] Plt 265 150 - 400 K/cumm [facility] MPV 10.3 9.1 - 12.3 fL [facility] RBC 3.57(L) 3.90 - 5.20 M/cumm [facility] MCV 88.5 81.3 - 96.4 fL [facility] MCH 27.5 27.1 - 33.3 pg [facility] MCHC 31.0(L) 32.3 - 35.7 g/dL [facility] RDW CV 14.6 11.1 - 14.9 % [facility] RDW SD 47.2 35.7 - 48.1 fL [facility] NRBC abs 0.00 0.00 - 0.01 K/cumm [facility] Blood 10/07/2023 2:52 AM CDT 10/07/2023 3:03 AM CDT Yoan GIRARD LAB BLOOD ORDERABLES Final Resul t Performing Organization Address [facility] Co de Phone Number [address] [place] [address] * Basic metabolic panel (10/07/2023 2:52 AM CDT) Sodium 140 135 - 145 mmol/L Potassium, pl 4.3 3.3 - 4.9 mmol/L [facility] Chloride 105 97 - 110 mmol/L [facility] CO2 27 22 - 32 mmol/L [facility] Anion gap 8 2 - 15 mmol/L [facility] BUN 21 6 - 25 mg/dL [facility] Creatinine 1.03 0.60 - 1.10 mg/dL [facility] Glucose 102 70 - 199 mg/dL [facility] Comment: Interpretive Data Fasting glucose >/= [...] 2022. Calcium 9.8 8.5 - 10.3 mg/dL [facility] Blood 10/07/2023 2:52 AM CDT 10/07/2023 3:03 AM CDT Yoan GIRARD LAB BLOOD ORDERABLES Final Resul t Performing Organization Address City/[facility]/ZIP Co de Phone Number [address] [place] [address] * POCT glucose (10/06/2023 11:33 PM CDT) [facility] Signature Glucose, POC 179 70 - 199 mg/dL Blood 10/06/2023 11:3 3 PM CDT 10/06/2023 11:33 PM CDT Regi Khan DO LAB POCT ORDERABLES - DEVICE F inal Result Performing Organization Address City/[facility]/ZIP Co de Phone Number [address] [place] [address] * (ABNORMAL) POCT glucose (10/06/2023 6:13 PM CDT) Glucose, POC 228(H) 70 - 199 mg/dL Glucose comment 1 RN/MD Notified OLIVIA Blood 10/06/2023 6:13 PM CDT 10/06/2023 6:13 PM CDT [employer] DO LAB POCT ORDERABLES - DEVICE F inal Result Performing Organization Address City/[facility] Co de Phone Number OLIVIA [address] [place] [address] * (ABNORMAL) POCT glucose (10/06/2023 4:48 PM CDT) Glucose, POC 251(H) 70 - 199 mg/dL Glucose comment 1 RN/ Notified OLIVIA Blood 10/06/2023 4:48 PM CDT 10/06/2023 4:48 PM CDT [employer] DO LAB POCT ORDERABLES - DEVICE F inal Result Performing Organization Address [facility] Co de Phone Number PERE[address] [place] [address] * (ABNORMAL) POCT glucose (10/06/2023 10:54 AM CDT) Glucose, POC 283(H) 70 - 199 mg/dL Glucose comment 1 RN/ Notified OLIVIA Blood 10/06/2023 10:5 4 AM CDT 10/06/2023 10:54 AM CDT [employer] DO LAB POCT ORDERABLES - DEVICE F inal Result Performing Organization Address City/[facility] Co de Phone Number [address] [place] [address] * X-ray knee right 1 or 2 [...] D: ??10/06/2023 10:00 AM T: Report ID: [id number] Reading Location: ??[id number] Procedure Note Carlo Adams MD - 10/06/2023 [...] Carlo Adams M.D. RB T: Report ID: [id number] Reading Location: [id number] us Regi Khan DO IMG XR PROCEDURES Final Result * (ABNORMAL) POCT glucose (10/06/2023 9:34 AM CDT) [facility] Glucose, POC 215(H) 70 - 199 mg/dL Glucose comment 1 Use This Result OLIVIA Blood 10/06/2023 9:34 AM CDT 10/06/2023 9:34 AM CDT us Blakelyn Erin DO LAB POCT ORDERABLES - DEVICE F inal Result Performing Organization Address City/[facility]/ZIP Co de Phone Number OLIVIA [address] [place] [address] * (ABNORMAL) POCT glucose (10/06/2023 9:31 AM CDT) Glucose, POC 244(H) 70 - 199 mg/dL Glucose comment 1 Will Repeat Test OLIVIA Blood 10/06/2023 9:31 AM CDT 10/06/2023 9:31 AM CDT [employer] DO LAB POCT ORDERABLES - DEVICE F inal Result Performing Organization Address [facility] Co de Phone Number OLIVIA [address] [place] [address] * POCT glucose (10/06/2023 6:26 AM CDT) Glucose, POC 114 70 - 199 mg/dL Glucose comment 1 Use This Result OLIVIA Blood 10/06/2023 6:26 AM CDT 10/06/2023 6:26 AM CDT [employer] DO LAB POCT ORDERABLES - DEVICE F inal Result Performing Organization Address [facility]/ZIP Co de Phone Number OLIVIA [address] [place] [address] * ABO / Rh Confirmation Testing (10/06/2023 6:10 AM CDT) ABO/Rh Confirmation A Positive [facility] Blood 10/06/2023 6:10 AM CDT 10/06/2023 6:32 AM CDT [employer] DO LAB BLOOD ORDERABLES Final Res ult Performing Organization Address City/[facility]/ZIP Co de Phone Number OLIVIA [address] [place] [address] [facility] documented in this encounter Visit Diagnoses [...] Call MD for each episode of hypoglycemia. MANAGER MOLECULAR STATES GLUTOSE-15 CONTAINS GLUCOSE 40% W/W (50% [...] 0600, Pre-Op 0643 (New Bag - Provider: lEvira Reis RN)0727 (Rate/Dose Verify - Provider: Cheyenne [...] Call MD for each episode of hypoglycemia. MANAGER MOLECULAR STATES GLUTOSE-15 CONTAINS GLUCOSE 40% W/W (50% [...] Call MD for each episode of hypoglycemia. MANAGER MOLECULAR STATES GLUTOSE-15 CONTAINS GLUCOSE 40% W/W (50% [...] First Orde red Date IP CONSULT TO PUMP INSTALLATION AND SERVICER 1 Admission Count Last Ordered Date First Orde red Date INITIATE OUTPATIENT IN A BED 1 10/06/2023 Discharge Count Last Ordered Date First Orde red Date DISCHARGE PATIENT 1 10/07/2023 documented in this encounter Care Teams Associate Professor Of Biostatistics Relationship Specialty Start Date End Date Eron Holliday NP [address] [place] [address] PCP - General Pain Management 07/15/22 Marialuisa Daniel NP [address] [place] [address] Nurse Practitioner Endocrinology Diabetes & Metabolism 09/22/23 Leobardo Bhagat MD [address] [place] [address] [address] Consulting Physician Nephrology 09/22/23 [place] [id number] [address] Consulting Physician Cardiovascular Disease 09/22/23 documented as of this encounter
--- OUTSIDE RECORDS SUMMARY | 2024-03-03 17:36 | XMS_ITS | Encounter Summary ---
Author Organization [facility] Healthcare Address [address] [place] [address] Care Team Providers Care Sprayer Leather Name Role Phone Eron Holliday NP Primary Care Provider [phone]- [phone] Encounter Details Date Type Department Care Team (Late st Contact Info) Description 09/04/2023 Documentation [facility] OP Physical Therapy [address] [place] [address] Flori Frias, PT Social History Tobacco Use Types Packs/Day Years Used Date Smoking Tobacco: Former Cigarettes Q uit: 03/20/2020 Smokeless Tobacco: Never Personal Safety Answer Date Recorded Getting School Help Needed Not on file 02/13 Comments No Sex and Gender Information Value Date Recorded Sex Assigned at Not on file Legal Sex Female 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 Flori Frias, ADA [facility] Services documented in this encounter Plan of Treatment Not on file documented as of this encounter Visit Diagnoses Not on filedocumented in this encounter Care Teams Sprayer Leather Relationship Specialty Start Date End Date Eron Holliday NP [address] [place] [address] PCP - General Pain Management 07/15/22 documented as of this encounter
--- OUTSIDE RECORDS SUMMARY | 2024-03-03 17:36 | XMS_ITS | Encounter Summary ---
Author Organization [facility] Healthcare Address [address] [place] [address] Care Team Providers Care Cardiac Rehabilitation Specialist Name Role Phone Eron Holliday NP Primary Care Provider +1- [phone] Encounter Details Date Type Department Care Team (Late st Contact Info) Description 08/25/2023 Orders Only [facility] Medical Group Orthopedics and Sports Medicine [address] [place] [phone] Regi Khan DO [address] [place] [address] Aftercare following right knee joint replacement surgery (Primary Dx) Social History Tobacco Use Types Packs/Day Years Used Date Smoking Tobacco: Former Cigarettes Q uit: 03/20/2020 Smokeless Tobacco: Never Personal Safety Answer Date Recorded Getting School Help Needed Not on file 02/13 Comments No Sex and Gender Information Value Date Recorded Sex Assigned at Not on file Legal Sex Female 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 Gender Identity Female 12/26/2023 10:11 PM CDT Sexual Orientation Straight 12/26/2023 10 :11 PM CDT 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
--- OUTSIDE RECORDS SUMMARY | 2024-03-03 17:37 | XMS_ITS | Encounter Summary ---
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
--- OUTSIDE RECORDS SUMMARY | 2024-03-03 17:37 | XMS_ITS | Encounter Summary ---
Author Organization [facility] Address [address] [address] Care Team Providers Care Catalyst Recovery Operator Name Role Phone Eron Holliday NP Primary Care Provider +1- [phone] Reason for Referral * Procedure (Routine) - Closed Specialty Diagnoses / Procedures Referred By Contac t Referred To Contact Diagnoses Primary osteoarthritis of right knee Procedures Large Joint (Hip, Knee, Shoulder) Injection: R knee Regi Khan DO [address] [facility] [address] [place] [address] Phone: tel: fax: [facility] Referral ID Status Reason Start Date Expiration Date Visits Re quested Visits Authorized [id number] Closed 08/16/2022 09/15/2023 1 1 * Diagnostic Imaging (Routine) - Closed Specialty Diagnoses / Procedures Referred By Contchristianne t Referred To Contact Diagnoses Right knee pain, unspecified chronicity Procedures XR Knee Right 3 Views Regi Khan DO [facility] [address] [place] [address] Phone: tel: fax: [address] [address] Referral ID Status Reason Start Date Expiration Date Visits Re quested Visits Authorized [id number] Closed 08/07/2022 09/06/2023 1 1 Reason for Visit * Reason Comments Follow-up Encounter Details Date Type Department Care Team (Michelle st Contact Info) Description 08/07/2022 8:00 AM CDT Office Visit [facility] Orthopedics and Sports Medicine [address] [facility] [address] [place] [address] Regi Khan DO [address] 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 She takes aspirin and Plavix. PAST MEDICAL HISTORY She has a past medical history of Type 1 diabetes mellitus ([facility]) (08/04/2018), Uncontrolled type 2 diabetes mellitus with hyperglycemia ([facility]) (03/14/2017), and Uncontrolled type 2 diabetes mellitus with hyperglycemia, with long-term current use of insulin ([facility]) (04/03/2017). PAST SURGICAL HISTORY She has no past surgical history on file. MEDICATIONS She has a current medication list which includes the following prescription(s): diphenhydramine, hydrocortisone, albiglutide, aspirin, atorvastatin, blood- glucose meter, buspirone, cetirizine, citalopram, clopidogrel, dexcom g6 cotton gin yard supervisor, dexcom g6 sensor, dexcom g6 transmitter, [...] Procedure Name Priority Date/Time Associated Diagnosis Comments NM ARTHROCENTESIS ASPIR&/INJ MAJOR JT/BURSA W/O US Routine [...] D: ??08/08/2022 12:33 PM T: Report ID: [id number] Reading Location: ??[id number] Procedure Note Lamont Conway MD - 08/08/2022 [...] signed by Lamont SIMONS T: Report ID: [id number] Reading Location: [place] [address] Regi Khan DO IMG XR PROCEDURES Final Result * NM ARTHROCENTESIS ASPIR&/INJ MAJOR JT/BURSA W/O US (08/07/2022 [...] 10/29/2022 added in this encounter Care Teams Catalyst Recovery Operator Relationship Specialty Start Date End Date Eron Holliday NP [address] [place] [address] [place] [address] PCP - General Pain Management 07/15/22 documented as of this encounter
--- OUTSIDE RECORDS SUMMARY | 2024-03-03 17:37 | XMS_ITS | Encounter Summary ---
Author Organization [facility] Address [address] [place] [address] Phone Care Team Providers Care Clinical Research Nurse Coordinator Name Role Phone Eron Holliday NP Primary Care Provider +1- [phone] Reason for Visit * Reason Comments Hearing Loss Pt is here today sta ting feels like something is crawling in right ear * Consultation (Routine) - Closed Specialty Diagnoses / Procedures Referred By Claudette smith Referred To Contact Otolaryngology Diagnoses Dizziness Eron Holliday NP [address] [place] [address] Phone: tel: fax: [facility] (All Locations) Referral ID Status Reason Start Date Expiration Date V isits Requested Visits Authorized [id number] Closed Specialty Services Required 07/18/2022 08/17/2023 12 12 Encounter Details Date Type Department Care Team (Late st Contact Info) Description 08/26/2022 11:00 AM CDT Office Visit [facility] Otolaryngology [address] [facility] [place] [address] Rupal Rendon NP [address] [facility], [address] [place] [address] Impaired auditory discrimination, bilateral (Primary Dx); Chronic eczematous otitis externa of right ear Social History Tobacco Use Types Packs/Day Years Used Date Smoking Tobacco: Former Cigarettes Q uit: 03/20/2020 Smokeless Tobacco: Never Comments No Sex and Gender Information Value Date Recorded Sex Assigned at Not on file Legal Sex Female 8:53 AM JOB HAND Gender Identity Female 12/26/2023 10:11 PM [...] History: Diagnosis Date Anxiety Arthritis Depression Diabetes ([facility]) Dizziness GERD (gastroesophageal reflux disease) High blood pressure Type 1 diabetes mellitus ([facility]) 08/04/2018 Uncontrolled type 2 diabetes mellitus with hyperglycemia ([facility]) 03/14/2017 Uncontrolled type 2 diabetes mellitus with hyperglycemia, with long-term current use of insulin ([facility]) 04/03/2017 History reviewed. No pertinent surgical history. [...] mouth daily, Disp: , Rfl: Dexcom G6 Nursing Home Social Worker misc, USE TO TEST BLOOD SUGAR DIRECTED, [...] She may recheck back p.r.n.. Rupal Rendon, MELIZA-MTIESH, MECHELLE [facility] Otolaryngology [address] [place] [address], [facility] [address] [place] [address] There may be grammatical errors [...] 08/26/2022 documented in this encounter Care Teams Clinical Research Nurse Coordinator Relationship Specialty Start Date End Date Eron Holliday NP [address] [place] [address] [place] [address] PCP - General Pain Management 07/15/22 documented as of this encounter
--- OUTSIDE RECORDS SUMMARY | 2024-03-03 17:37 | XMS_ITS | Encounter Summary ---
Author Organization [facility] Address [address] [facility] [address] [place] [address] Care Team Providers Care Transportation Inspector Name Role Phone Eron Holliday NP Primary Care Provider +1- [phone] Reason for Visit * Reason Onset Date Comments PA for Mounjaro 2.5mg/ 0.5ML 07/16/2022 Encounter Details Date Type Department Care Team (Late st Contact Info) Description 07/16/2022 Telephone [facility] Diabetes [facility] of [address] [place] [address] Marialuisa Daniel NP [address] [address] PA for Mounjaro 2.5mg/ 0.5ML Social History Tobacco Use Types Packs/Day Years Used Date Smoking Tobacco: Former Cigarettes Q uit: 03/20/2020 Smokeless Tobacco: Never Comments No Sex and Gender Information Value Date Recorded Sex Assigned at Not on file Legal Sex Female 8:53 AM MANAGER GAMES Gender Identity Female 12/26/2023 10:11 PM CDT [...] on filedocumented in this encounter Care Teams Transportation Inspector Relationship Specialty Start Date End Date Eron Holliday NP [address] [place] [address] [place] [address] PCP - General Pain Management 07/15/22 documented as of this encounter
--- OUTSIDE RECORDS SUMMARY | 2024-03-03 17:37 | XMS_ITS | Encounter Summary ---
Author Organization [facility] Address [address] [place] [address] Care Team Providers Care Outside Sales Advertising Executive Name Role Phone Eron Holliday NP Primary Care Provider +1- [phone] Encounter Details Date Type Department Care Team (Latest Contact Info) Description 10/29/2022 10:40 AM CDT - 10/29/2022 11:59 PM CDT Hospital Encounter [facility] [address] [place] [id number] Discharge Disposition: Discharge to home or self care Social History Tobacco Use Types Packs/Day Years Used Date Smoking Tobacco: Former Cigarettes Q uit: 03/20/2020 Smokeless Tobacco: Never Comments No Sex and Gender Information Value Date Recorded Sex Assigned at Not on file Legal Sex Female 8:53 AM MANAGER IMMUNOLOGY Gender Identity Female 12/26/2023 10:11 PM CDT [...] 10 mg tablet 10/18/[address] Specialist miscIndications:T ype 2 diabetes mellitus with [...] long-term current use of insulin ([facility]) USE TO TEST BLOOD SUGAR TWICE [...] Results * eGFR (10/29/2022 10:40 AM CDT) [facility] eGFR 88 mL/min/1. 73 m2 OLIVIA KNAPP [...] ORDERABLES Final Resu lt Performing Organization Address [facility] Co de Phone Number [facility] [address] [address] [email or web address] [address] * Potassium (10/29/2022 10:40 AM CDT) [facility] Potassium, pl 4.4 3.3 - 4.9 mmol/L [facility] Blood 10/29/2022 10:4 0 AM CDT 10/29/2022 6:34 PM CDT Christophe Tan MD LAB BLOOD ORDERABLES Final Resu lt Performing Organization Address [facility] Co de Phone Number [facility] [address] [address] Department [email or web address] [address] * Creatinine (10/29/2022 10:40 AM CDT) Creatinine 0.79 0.60 - 1.10 mg/dL OLIVIA KNAPP Blood 10/29/2022 10:4 0 AM CDT 10/29/2022 6:34 PM CDT us Christophe Tan MD LAB BLOOD ORDERABLES Final Resu lt OLIVIA KNAPP [address] [address] Department [place] [address] documented in this encounter Visit Diagnoses Not on filedocumented in this encounter Care Teams Outside Sales Advertising Executive Relationship Specialty Start Date End Date Eron Holliday NP [address] [place] [address] [place] [address] PCP - General Pain Management 07/15/22 documented as of this encounter
--- OUTSIDE RECORDS SUMMARY | 2024-03-03 17:37 | XMS_ITS | Encounter Summary ---
Author Organization [facility] Address [address] [place] [address] Care Team Providers Care Clearing Inspector Name Role Phone Eron Holliday NP Primary Care Provider +1- [phone] Encounter Details Date Type Department Care Team (Late st Contact Info) Description 01/13/2023 Telephone [facility] Orthopedics and Sports Medicine [address] [place] [address] Nancy Yip MA Social History Tobacco Use Types Packs/Day Years Used Date Smoking Tobacco: Former Cigarettes Q uit: 03/20/2020 Smokeless Tobacco: Never Comments No Sex and Gender Information Value Date Recorded Sex Assigned at Not on file Legal Sex Female 8:53 AM ICE CREAM SCOOPER Gender Identity Female 12/26/2023 10:11 PM CDT Sexual Orientation Straight 12/26/2023 10 :11 PM CDT documented as of this encounter Miscellaneous Notes * Telephone Encounter - Nancy Yip MA - 01/13/2023 10:51 AM ICE CREAM SCOOPER LVM for Sandy to call me back about getting scheduled for Euflexxa sample injections she can be scheduled on 02/13, 02/21 ad 02/27 all in [place] CREAM SCOOPER documented in this encounter Plan of Treatment Not on file documented as of this encounter Visit Diagnoses Not on filedocumented in this encounter Care Teams Clearing Inspector Relationship Specialty Start Date End Date Eron Holliday NP [address] [place] [address] [place] [address] PCP - General Pain Management 07/15/22 documented as of this encounter
--- OUTSIDE RECORDS SUMMARY | 2024-03-03 17:37 | XMS_ITS | Encounter Summary ---
Author Organization [facility] Address [address] [place] [address] Phone Care Team Providers Care Director Of Critical Care Name Role Phone Eron Holliday NP Primary Care Provider +1- [phone] Reason for Visit * Reason Comments Audiometric Evaluation Encounter Details Date Type Department Care Team (Latest Contact Info) Description 08/26/2022 10:30 AM CDT Procedure visit [facility] Otolaryngology [address] [place] [address], [address] [place] [address] Sensorineural hearing loss, bilateral (Primary Dx); Otalgia, right ear Social History Tobacco Use Types Packs/Day Years Used Date Smoking Tobacco: Former Cigarettes Q uit: 03/20/2020 Smokeless Tobacco: Never Comments No Sex and Gender Information Value Date Recorded Sex Assigned at Not on file Legal Sex Female 8:53 AM PIANO REGULATOR Gender Identity Female 12/26/2023 10:11 PM CDT Sexual Orientation Straight 12/26/2023 10 :11 PM CDT documented as of this encounter Procedure Notes * Codi Mujica Au.D. - 08/26/2022 10:30 AM CDT Images from the original note were not included. Procedures Alla Linn, [facility] PATIENT: Sandy Lopez : 1965 TYPE OF SERVICE: Comprehensive Audiometric Evaluation DATE OF SERVICE: 08/26/2022 Referral Source: Eron Holliday NP Audiogram completed per physician referral. The patient had an appointment with Rupal Rendon NP directly following today's evaluation. See scanned audiogram for results. Detailed medical history was obtained by medical resident and reviewed. Results were reviewed with the patient by registered nurse renal and/or physician. documented in this encounter Plan [...] ear documented in this encounter Care Teams Director Of Critical Care Relationship Specialty Start Date End Date Eron Holliday NP [address] [place] [address] [place] [address] PCP - General Pain Management 07/15/22 documented as of this encounter
--- OUTSIDE RECORDS SUMMARY | 2024-03-03 17:37 | XMS_ITS | Encounter Summary ---
Author Organization [facility] Address [address] [place] [address] Care Team Providers Care Travel Registered Nurse Pacu Name Role Phone Alis Huntley SALONI Primary Care Provider Encounter Details Date Type Department Care Team (Latest Contact Info) Description 06/28/2022 3:35 PM CDT - 06/28/2022 11:59 PM CDT Hospital Encounter [facility] [address] [place], [place] [id number] Discharge Disposition: Discharge to home or self care Social History Tobacco Use Types Packs/Day Years Used Date Smoking Tobacco: Former Cigarettes Q uit: 03/20/2020 Smokeless Tobacco: Never Comments No Sex and Gender Information Value Date Recorded Sex Assigned at Not on file Legal Sex Female 8:53 AM TECHNICAL SUPPORT INTERN Gender Identity Female 12/26/2023 10:11 PM CDT [...] by mouth daily 12/05/2018 4 Dexcom G6 Information And Data Architect Analyst miscIndications:T ype 2 diabetes mellitus with hyperglycemia, with long-term current use of insulin ([facility]) USE TO TEST BLOOD SUGAR DIRECTED 1 each 1 08/22/2021 4 Dexcom G6 Sensor deviceIndications :Type 2 diabetes mellitus with hyperglycemia, with long-term current use of insulin ([facility]) USE TO TEST BLOOD SUGAR DIRECTED 4 each 10 01/14/2022 3 Dexcom G6 Transmitter deviceIndications :Type 2 diabetes mellitus with hyperglycemia, with long-term current use of insulin ([facility]) USE TO TEST BLOOD SUGAR TWICE A [...] Results * eGFR (06/28/2022 3:35 PM CDT) [facility] eGFR 50 mL/min/1. 73 m2 [...] Resu lt Performing Organization Address [facility] [[email or web address]] Co de Phone Number OLVIIA KNAPP [phone] [address] [facility] [place] [place] [address] * Potassium (06/28/2022 3:35 PM CDT) Potassium, pl 4.7 3.3 - 4.9 mmol/L [facility] Blood 06/28/2022 3:35 PM CDT 06/28/2022 6:25 PM CDT us Christophe Tan MD LAB BLOOD ORDERABLES Final Resu lt Performing Organization Address [facility] Phone Number OLIVIA KNAPP [phone] [address] [facility] [place] [place] [address] * (ABNORMAL) Creatinine (06/28/2022 3:35 PM CDT) Creatinine 1.27(H) 0.60 - 1.10 mg/dL [facility] Blood 06/28/2022 3:35 PM CDT 06/28/2022 6:23 PM CDT us Christophe Tan MD LAB BLOOD ORDERABLES Final Resu lt Performing Organization Address [facility] [[email or web address]] Co de Phone Number OLIVIA KNAPP [phone] [address] [facility] [place] [place] [address] documented in this encounter Visit Diagnoses Not on filedocumented in this encounter Care Teams Travel Registered Nurse Pacu Relationship Specialty Start Date End Date Alis Huntley DNP PCP - General Family Medicine 05/09/22 07/14/22 documented as of this encounter
--- OUTSIDE RECORDS SUMMARY | 2024-03-03 17:37 | XMS_ITS | Encounter Summary ---
Author Organization [facility] Address [address] [facility] [address] [place] [address] Care Team Providers Care Dust Collector Operator Name Role Phone Eron Holliday NP Primary Care Provider +1- [phone] Reason for Visit * Reason Comments Diabetes Type 2 Encounter Details Date Type Department Care Team (Late st Contact Info) Description 04/15/2022 10:30 AM SLD INCLUSION TEACHER Office Visit [facility] of [address] [place] [address] Marialuisa Tyson, CHRISTOPHER [address] [address] Type 2 diabetes mellitus with hyperglycemia, with long-term current use of insulin ([facility]) ([facility]) (Primary Dx); Type 2 diabetes mellitus with diabetic peripheral angiopathy without gangrene, with long-term current use of insulin ([facility]) (HCC); Type 2 diabetes mellitus with microalbuminuria, with long-term current use of insulin ([facility]) ([facility]); Insulin pump titration Social History Tobacco Use Types Packs/Day Years Used Date Smoking Tobacco: Former Cigarettes Q uit: 03/20/2020 Smokeless Tobacco: Never Tobacco Cessation:Counseling Given: Not Answered Comments No Sex and Gender Information Value Date Recorded Sex Assigned at Not on file Legal Sex Female 8:53 AM SLD INCLUSION TEACHER Gender Identity Female 12/26/2023 10:11 PM CDT Sexual Orientation Straight 12/26/2023 10 :11 PM CDT documented as of this encounter Last Filed Vital Signs Vital Sign Reading Time Taken Comments Blood Pressure 138/60 04/15/2022 10:35 AM SLD INCLUSION TEACHER Pulse - - Temperature - - Respiratory Rate - - Oxygen Saturation - - Inhaled Oxygen Concentration - - Weight 99.2 kg (218 lb 12.8 oz) 023 10:35 AM SLD INCLUSION TEACHER Height 165.1 cm (5' 5 ) 04/15/2022 10:3 5 AM SLD INCLUSION TEACHER Body Mass Index 36.41 04/15/2022 10:35 AM SLD INCLUSION TEACHER documented in this encounter Patient Instructions * Patient Instructions* Marialuisa Tyson, CHRISTOPHER - 04/15/2022 10:30 AM SLD INCLUSION TEACHER Thanks for coming in today. I am thankful you have trusted me with your care, and hope that you received EXCELLENT care today! Please do not hesitate to call if you have any questions or concerns at [phone]. You may receive a phone call or [...] than once per week. See the Dietitian, Idea Man . Call Centralized Scheduling at [phone] to make an appointment. Exercise: Try moving [...] a source of fast-acting carbohydrate with you. 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 She eats 2-3 meals/day. She monitors blood [...] hyperglycemia, with long-term current use of insulin ([facility]) ([facility]) (Primary) Assessment & Plan: This [...] gangrene, with long-term current use of insulin ([facility]) ([facility]) Assessment & Plan: Sees Dr. Dixon for [...] microalbuminuria, with long-term current use of insulin ([facility]) ([facility]) Assessment & Plan: This is [...] 3 months (around 07/13/2022). Marialuisa Tyson NP INCLUSION TEACHER documented in this encounter Miscellaneous Notes * Assessment & Plan Note - Marialuisa Tyson NP - 04/15/2022 12:42 PM SLD INCLUSION TEACHER Associated Problem(s): Omnipod Dash Insulin pump in [...] hypoglycemia. Average blood sugar 185. Nohypoglycemia noted INCLUSION TEACHER * Assessment & Plan Note - Marialuisa Tyson NP - 04/15/2022 12:41 PM SLD INCLUSION TEACHER Associated Problem(s): Type 2 diabetes mellitus with [...] GANGRENE, WITH LONG-TERM CURRENT USE OF INSULIN ([facility]) (HCC) WRITTEN ON 04/15/2022 12:42 PM BY [...] less than 70. Continue atorvastatin and zetia. INCLUSION TEACHER * Assessment & Plan Note - Marialuisa Tyson NP - 04/15/2022 12:38 PM SLD INCLUSION TEACHER Associated Problem(s): Type 2 diabetes mellitus with diabetic peripheral angiopathy without gangrene, with long-term current use of insulin ([facility]) (HCC) (Deleted) Sees Dr. Dixon for Cardiology. [...] less than 70. Continue atorvastatin and zetia. INCLUSION TEACHER INCLUSION TEACHER * Assessment & Plan Note - Marialuisa Tyson NP - 04/15/2022 12:37 PM SLD INCLUSION TEACHER Associated Problem(s): Type 2 diabetes mellitus with microalbuminuria, with long-term current use of insulin ([facility]) This is a chronic condition which is worsening and not at goal. urine microalbumin/creatinine ratio -??worsening. Latest Reference Range & Units 07/13/21 08:13 Albumin, Ur mg/L 5,983.8 Creatinine Ur mg/dL 194.6 Albumin Creatinine Ratio, Ur 1 - 29 mg/g 3,075 (H) (H): Data is abnormally high?? Continue on Losartan 25 mg daily/ HCTZ, ?goal <[address] Bhagat for nephrology INCLUSION TEACHER documented in this encounter Plan of Treatment Not on file documented as of this encounter Procedures Procedure Name Priority Date/Time Associated Diagnosis Comments POCT HEMOGLOBIN A1C Routine 04/15/2022 1 0:40 AM SLD INCLUSION TEACHER Type 2 diabetes mellitus with diabetic peripheral angiopathy without gangrene, with long-term current use of insulin ([facility]) ([facility]) Type 2 diabetes mellitus with microalbuminuria, with long-term current use of insulin ([facility]) ([facility]) POCT GLUCOSE Routine 04/15/2022 10:36 AM SLD INCLUSION TEACHER Type 2 diabetes mellitus with diabetic peripheral angiopathy without gangrene, with long-term current use of insulin ([facility]) ([facility]) Type 2 diabetes mellitus with microalbuminuria, with long-term current use of insulin ([facility]) ([facility]) documented in this encounter Results * POCT hemoglobin A1c (04/15/2022 10:40 AM SLD INCLUSION TEACHER) Hemoglobin A1C, POC 7.2 % Blood 04/15/2022 10:4 0 AM SLD INCLUSION TEACHER Marialuisa Tyson CLOTH COVERER POINT OF CARE TEST ORDERABLES F inal Result * POCT glucose (04/15/2022 10:36 AM SLD INCLUSION TEACHER) Glucose Blood, POC 120 mg/dL Blood 04/15/2022 10:3 6 AM SLD INCLUSION TEACHER Marialuisa Tyson CLOTH COVERER POINT OF CARE TEST ORDERABLES F inal Result documented in this encounter Visit Diagnoses Diagnosis Type 2 diabetes mellitus with hyperglycemia, with long-term current use of insulin (HCC)- Primary Type 2 diabetes mellitus with diabetic peripheral angiopathy without gangrene, with long-term current use of insulin (HCC) Type 2 diabetes mellitus with microalbuminuria, with long-term current use of insulin ([facility]) Insulin pump titration Fitting and adjustment of [...] 09/22/2023 added in this encounter Care Teams Dust Collector Operator Relationship Specialty Start Date End Date Eron Holliday NP [address] [place] [address] [place] [address] PCP - General 06/28/21 05/08/22 documented as of this encounter
--- OUTSIDE RECORDS SUMMARY | 2024-03-03 17:37 | XMS_ITS | Encounter Summary ---
Author Organization [facility] Address [address] [address] Care Team Providers Care Diesel Roller Operator Name Role Phone Yuko Alis Tatiana SALONI Primary Care Provider Reason for Referral * Diagnostic Imaging (Routine) - Closed Specialty Diagnoses / Procedures Referred By Claudette smith Referred To Contact Diagnoses Tendinopathy of right rotator cuff Procedures XR Shoulder Right 2 or More Views Regi Khan DO [address] [place] [address] DR THAK[address] [place] [address] Phone: tel: fax: [address] [phone] Referral ID Status Reason Start Date Expiration Date Visits Re quested Visits Authorized [id number] Closed 06/24/2022 07/24/2023 1 1 Reason for Visit * Reason Comments Pain * Consultation (Routine) - Closed Specialty Diagnoses / Procedures Referred By Claudette smith Referred To Contact Orthopedic Surgery Diagnoses Tendinopathy of right rotator cuff Angel Luis Lara MD [address] [place] [address] DR THAK[address] [place] [address] Phone: tel: fax: [facility] Orthopedics and Sports Medicine [address] [place] [address] Phone: tel: fax: Referral ID Status Reason Start Date Expiration Date V isits Requested Visits Authorized [id number] Closed Specialty Services Required 05/09/2022 06/08/2023 1 1 Encounter Details Date Type Department Care Team (Late st Contact Info) Description 06/24/2022 10:00 AM CDT Office Visit [facility] Orthopedics and Sports Medicine [address] [place] [address] [address] [place] [phone] Regi Khan DO [address] [facility] [address] [place] [address] Tendinopathy of right rotator cuff (Primary Dx); Scapular dysfunction Social History Tobacco Use Types Packs/Day Years Used Date Smoking Tobacco: Former Cigarettes Q uit: 03/20/2020 Smokeless Tobacco: Never Tobacco Cessation:Counseling Given: Not Answered Comments No Sex and Gender Information Value Date Recorded Sex Assigned at Not on file Legal Sex Female 8:53 AM SPORTS COMMENTATOR Gender Identity Female 12/26/2023 10:11 PM CDT [...] current use of insulin ([facility]) (04/03/2017). PAST SURGICAL HISTORY She has no past surgical history on file. MEDICATIONS She has a current medication list which includes the following prescription(s): atorvastatin, aspirin, blood-glucose meter, buspirone, cetirizine, citalopram, clopidogrel, dexcom g6 director of supply chain, dexcom g6 sensor, dexcom g6 transmitter, estradiol, [...] D: ??06/24/2022 12:24 PM T: Report ID: [id number] Reading Location: ??[id number] Procedure Note Lamont Hidalgo MD - 06/24/2022 [...] by Lamont Hidalgo M.D. T: Report ID: [id number] Reading Location: [id number] us Regi Khan DO IMG XR PROCEDURES Final Result documented in this encounter Visit Diagnoses Diagnosis Tendinopathy of right rotator cuff- Primary Scapular dysfunction Tendinopathy of right rotator cuff documented in this encounter Orders Outpatient Referral Count Last Ordered Date Fir st Ordered Date AMB REFERRAL TO ORTHOPEDIC SURGERY 1 2022 documented in this encounter Care Teams Diesel Roller Operator Relationship Specialty Start Date End Date Alis Huntley DNP PCP - General Family Medicine 05/09/22 07/14/22 documented as of this encounter
--- OUTSIDE RECORDS SUMMARY | 2024-03-03 17:37 | XMS_ITS | Encounter Summary ---
Author Organization [facility] Address [address] [place] [address] Care Team Providers Care Shield Operator Name Role Phone Alis Huntley SALONI Primary Care Provider Reason for Referral * Diagnostic Imaging (Routine) - Closed Specialty Diagnoses / Procedures Referred By Claudette smith Referred To Contact Diagnoses Tendinopathy of right rotator cuff Procedures XR Shoulder Right 2 or More Views Regi Khan DO [address] [place] [address] DR THAK[address] [place] [address] Phone: tel: fax: [address] [phone] Referral ID Status Reason Start Date Expiration Date Visits Re quested Visits Authorized [id number] Closed 06/24/2022 07/24/2023 1 1 Reason for Visit * Diagnostic Imaging (Routine) - Closed Specialty Diagnoses / Procedures Referred By Claudette smith Referred To Contact Diagnoses Tendinopathy of right rotator cuff Procedures XR Shoulder Right 2 or More Views Regi Khan DO [facility] [address] THAKUR [address] [place] [address] Phone: tel: fax: [address] [phone] Referral ID Status Reason Start Date Expiration Date Visits Re quested Visits Authorized [id number] Closed 06/24/2022 07/24/2023 1 1 Encounter Details Date Type Department Care Team (Latest Contact Info) Description 06/24/2022 9:57 AM CDT - 06/24/2022 11:59 PM CDT Hospital Encounter [facility] Di[facility] [address] [place] [address] Tendinopathy of right rotator cuff Discharge Disposition: Discharge to home or self care Social History Tobacco Use Types Packs/Day Years Used Date Smoking Tobacco: Former Cigarettes Q uit: 03/20/2020 Smokeless Tobacco: Never Comments No Sex and Gender Information Value Date Recorded Sex Assigned at Not on file Legal Sex Female 8:53 AM SPICE BLENDER Gender Identity Female 12/26/2023 10:11 PM CDT [...] hyperglycemia, with long-term current use of insulin ([facility]) Use daily or as directed for monitoring of diabetes 1 each 07/04/2017 4 busPIRone (BUSPAR) 5 mg tablet Take 1 tablet (5 mg total) by mouth 2 (two) times a day 12/17/2021 4 cetirizine (ZyrTEC) 10 mg tablet Take 1 tablet (10 mg total) by mouth daily 12/05/2018 4 Dexcom G6 Seo Coordinator miscIndications:T ype 2 diabetes mellitus with hyperglycemia, with long-term current use of insulin ([facility]) USE TO TEST BLOOD SUGAR DIRECTED 1 each 1 08/22/2021 4 Dexcom G6 Sensor deviceIndications :Type 2 diabetes mellitus with hyperglycemia, with long-term current use of insulin ([facility]) USE TO TEST BLOOD SUGAR DIRECTED 4 each 10 01/14/2022 3 Dexcom G6 Transmitter deviceIndications :Type 2 diabetes mellitus with hyperglycemia, with long-term current use of insulin ([facility]) USE TO TEST BLOOD SUGAR TWICE [...] D: ??06/24/2022 12:24 PM T: Report ID: [id number] Reading Location: ??[id number] Procedure Note Lamont Hidalgo MD - 06/24/2022 [...] by Lamont Hidalgo M.D. T: Report ID: [id number] Reading Location: [id number] Regi Khan DO IMG XR PROCEDURES Final Result documented in this encounter Visit Diagnoses Diagnosis Tendinopathy of right rotator cuff documented in this encounter Care Teams Shield Operator Relationship Specialty Start Date End Date Alis Huntley DNP PCP - General Family Medicine 05/09/22 07/14/22 documented as of this encounter
--- OUTSIDE RECORDS SUMMARY | 2024-03-03 17:37 | XMS_ITS | Encounter Summary ---
Author Organization [facility] Healthcare Address [address] [place] [address] Care Team Providers Care Marketing Specialist Name Role Phone Eron Holliday NP Primary Care Provider +1- [phone] Encounter Details Date Type Department Care Team (Latest Contact Info) Description 04/26/2022 9:20 AM CONVERTER OPERATOR - 04/26/2022 11:59 PM CONVERTER OPERATOR Hospital Encounter [facility] [address] [place] [address] Discharge Disposition: Discharge to home or self care Social History Tobacco Use Types Packs/Day Years Used Date Smoking Tobacco: Former Cigarettes Q uit: 03/20/2020 Smokeless Tobacco: Never Comments No Sex and Gender Information Value Date Recorded Sex Assigned at Not on file Legal Sex Female 8:53 AM CONVERTER OPERATOR Gender Identity Female 12/26/2023 10:11 PM [...] by mouth daily 12/05/2018 4 Dexcom G6 Night Supervisor miscIndications:T ype 2 diabetes mellitus with hyperglycemia, with long-term current use of insulin ([facility]) USE TO TEST BLOOD SUGAR DIRECTED 1 each 1 08/22/2021 4 Dexcom G6 Sensor deviceIndications :Type 2 diabetes mellitus with hyperglycemia, with long-term current use of insulin ([facility]) USE TO TEST BLOOD SUGAR DIRECTED 4 each 10 01/14/2022 3 Dexcom G6 Transmitter deviceIndications :Type 2 diabetes mellitus with hyperglycemia, with long-term current use of insulin ([facility]) USE TO TEST BLOOD SUGAR TWICE A [...] Diagnosis Comments EGFR Routine 04/26/2022 9:20 AM CONVERTER OPERATOR POTASSIUM LEVEL Routine 04/26/2022 9:20 AM CONVERTER OPERATOR CREATININE Routine 04/26/2022 9:20 AM CONVERTER OPERATOR documented in this encounter Results * eGFR (04/26/2022 9:20 AM CONVERTER OPERATOR) eGFR 57 mL/min/1. 73 m2 OLIVIA KNAPP [...] last reviewed 2020. Blood 04/26/2022 9:20 AM CONVERTER OPERATOR 04/26/2022 7:36 PM CONVERTER OPERATOR us Christophe Tan MD LAB BLOOD ORDERABLES Final Resu lt Performing Organization Address [facility]/ZIP Co de Phone Number OLIVIA KNAPP [address] [address] [facility] [place] [address] * Potassium (04/26/2022 9:20 AM CONVERTER OPERATOR) Potassium, pl 4.8 3.3 - 4.9 mmol/L [facility] Blood 04/26/2022 9:20 AM CONVERTER OPERATOR 04/26/2022 6:10 PM CONVERTER OPERATOR us Christophe Tan MD LAB BLOOD ORDERABLES Final Resu lt Performing Organization Address [facility] de Phone Number OLIVIA KNAPP [address] [address] [facility] [place] [address] * (ABNORMAL) Creatinine (04/26/2022 9:20 AM CONVERTER OPERATOR) Creatinine 1.14(H) 0.60 - 1.10 mg/dL [facility] Blood 04/26/2022 9:20 AM CONVERTER OPERATOR 04/26/2022 6:10 PM CONVERTER OPERATOR us Christophe Tan MD LAB BLOOD ORDERABLES Final Resu lt Performing Organization Address [facility] de Phone Number OLIVIA KNAPP [address] [address] [facility] [place] [address] documented in this encounter Visit Diagnoses Not on filedocumented in this encounter Care Teams Marketing Specialist Relationship Specialty Start Date End Date Eron Holliday NP [address] [place] [address] [place] [address] PCP - General 06/28/21 05/08/22 documented as of this encounter
--- OUTSIDE RECORDS SUMMARY | 2024-03-03 17:37 | XMS_ITS | Encounter Summary ---
Author Organization [facility] Healthcare Address [address] [place] [address] Care Team Providers Care Cross Cut Saw Operator Name Role Phone Eron Holliday NP Primary Care Provider +1- [phone] Reason for Referral * Diagnostic Imaging (Routine) - Closed Specialty Diagnoses / Procedures Referred By Claudette smith Referred To Contact Diagnoses Right knee pain, unspecified chronicity Procedures XR Knee Right 3 Views Regi Khan DO [facility] [facility] [address] THAKUR [address] [place] [address] Phone: tel: fax: [address] [phone] Referral ID Status Reason Start Date Expiration Date Visits Re quested Visits Authorized [id number] Closed 08/07/2022 09/06/2023 1 1 Reason for Visit * Diagnostic Imaging (Routine) - Closed Specialty Diagnoses / Procedures Referred By Claudette smith Referred To Contact Diagnoses Right knee pain, unspecified chronicity Procedures XR Knee Right 3 Views Regi Khan DO [address] [facility] [address] THAKUR [address] [place] [address] Phone: tel: fax: [address] [phone] Referral ID Status Reason Start Date Expiration Date Visits Re quested Visits Authorized [id number] Closed 08/07/2022 09/06/2023 1 1 Encounter Details Date Type Department Care Team (Latest Contact Info) Description 08/07/2022 8:54 AM CDT - 08/07/2022 11:59 PM CDT Hospital Encounter [facility] Diag Imaging [address] [place] [address] Right knee pain, unspecified chronicity Discharge Disposition: Discharge to home or self care Social History Tobacco Use Types Packs/Day Years Used Date Smoking Tobacco: Former Cigarettes Q uit: 03/20/2020 Smokeless Tobacco: Never Comments No Sex and Gender Information Value Date Recorded Sex Assigned at Not on file Legal Sex Female 8:53 AM GRADE RECORDER Gender Identity Female 12/26/2023 10:11 PM CDT [...] by mouth daily 12/05/2018 4 Dexcom G6 Rn Geriatric miscIndications:T ype 2 diabetes mellitus with hyperglycemia, [...] D: ??08/08/2022 12:33 PM T: Report ID: [id number] Reading Location: ??[id number] Procedure Note Lamont Conway MD - 08/08/2022 [...] Lamont Conway M.D. MJ T: Report ID: [id number] Reading Location: [id number] us Regi Khan DO IMG XR PROCEDURES Final Result documented in this encounter Visit Diagnoses Diagnosis Right knee pain, unspecified chronicity documented in this encounter Care Teams Cross Cut Saw Operator Relationship Specialty Start Date End Date Eron Holliday NP [address] [place] [address] [place] [address] PCP - General Pain Management 07/15/22 documented as of this encounter
--- OUTSIDE RECORDS SUMMARY | 2024-03-03 17:37 | XMS_ITS | Encounter Summary ---
Author Organization [facility] Healthcare Address [address] [place] [address] Care Team Providers Care Color Checker Roving Or Yarn Name Role Phone Eron Holliday NP Primary Care Provider +1- [phone] Encounter Details Date Type Department Care Team (Latest Contact Info) Description 03/28/2022 10:15 AM COO - 03/28/2022 11:59 PM COO Hospital Encounter [facility] [address] [place] [place] [id number] Discharge Disposition: Discharge to home or self care Social History Tobacco Use Types Packs/Day Years Used Date Smoking Tobacco: Former Cigarettes Q uit: 03/20/2020 Smokeless Tobacco: Never Comments No Sex and Gender Information Value Date Recorded Sex Assigned at Not on file Legal Sex Female 8:53 AM COO Gender Identity Female 12/26/2023 10:11 PM CDT [...] by mouth daily 12/05/2018 4 Dexcom G6 Business Project Manager miscIndications:T ype 2 diabetes mellitus with [...] Comments POTASSIUM LEVEL Routine 03/28/2022 10:15 AM COO documented in this encounter Results * Potassium (03/28/2022 10:15 AM COO) Potassium, pl 4.1 3.3 - 4.9 mmol/L OLIVIA KNAPP Blood 03/28/2022 10:1 5 AM COO 03/28/2022 7:09 PM COO Christophe Tan MD LAB BLOOD ORDERABLES Final Resu lt OLIVIA KNAPP [address] [address] [place] [address] documented in this encounter Visit Diagnoses Not on filedocumented in this encounter Care Teams Color Checker Roving Or Yarn Relationship Specialty Start Date End Date Eron Holliday NP [address] [facility] [place] [address] PCP - General 06/28/21 05/08/22 documented as of this encounter
--- OUTSIDE RECORDS SUMMARY | 2024-03-03 17:37 | XMS_ITS | Encounter Summary ---
Author Organization [facility] Address [address] [facility] [address] [place] [address] Care Team Providers Care Senior C Developer Name Role Phone Eron Holliday NP Primary Care Provider +1- [phone] Reason for Visit * Reason Comments Pain Follow-up Encounter Details Date Type Department Care Team (Late st Contact Info) Description 11/19/2022 8:00 AM CDT Office Visit [facility] Medical [facility] Orthopedics and [facility] Medicine [address] [place] [address] [address] [place] [address] Regi Khan DO [address] [place] [address] [address] [place], [place] [id number] Primary osteoarthritis of right knee (Primary Dx) Social History Tobacco Use Types Packs/Day Years Used Date Smoking Tobacco: Former Cigarettes Q uit: 03/20/2020 Smokeless Tobacco: Never Comments No Sex and Gender Information Value Date Recorded Sex Assigned at Not on file Legal Sex Female 8:53 AM TELEPHONE INTERVIEWER Gender Identity Female 12/26/2023 10:11 PM CDT [...] cetirizine, cholecalciferol, citalopram, clopidogrel, cyclobenzaprine, dexcom g6 color making supervisor, dexcom g6 sensor, dexcom g6 transmitter, empagliflozin, [...] documented in this encounter Care Teams Senior C Developer Relationship Specialty Start Date End Date Eron Holliday NP [address] [facility] [place] [place] [address] PCP - General Pain Management 07/15/22 documented as of this encounter
--- OUTSIDE RECORDS SUMMARY | 2024-03-03 17:37 | XMS_ITS | Encounter Summary ---
Author Organization [facility] Address [address] [place] [address] Care Team Providers Care Government Operations Consultant Name Role Phone Eron Holliday NP Primary Care Provider +1- [phone] Reason for Visit * Reason Comments Diabetes Type 2 Encounter Details Date Type Department Care Team (Late st Contact Info) Description 10/29/2022 1:30 PM CDT Office Visit [facility] Diabetes Endocrine Care of [address] [place] [address] Marialuisa Daniel, CHRISTOPHER [address] [facility] [address] [place] [address] Type 2 diabetes mellitus with hyperglycemia, with long-term current use of insulin ([facility]/HCC) (HCC) (Primary Dx); Hyperlipidemia associated with type 2 diabetes mellitus ([facility]); Omnipod Dash Insulin pump in place Social History Tobacco Use Types Packs/Day Years Used Date Smoking Tobacco: Former Cigarettes Q uit: 03/20/2020 Smokeless Tobacco: Never Tobacco Cessation:Counseling Given: Not Answered Comments No Sex and Gender Information Value Date Recorded Sex Assigned at Not on file Legal Sex Female 8:53 AM TABLEAU LEAD Gender Identity Female 12/26/2023 10:11 PM CDT [...] Patient Instructions * Patient Instructions* Marialuisa Daniel, MACHINE STEMMER - 10/29/2022 1:30 PM CDT Thanks for coming in today. I am thankful you have trusted me with your care, and hope that you received EXCELLENT care today! Please do not hesitate to call if you have any questions or concerns at [phone]. You may receive a phone call or text asking about your care today. I would love to hear your input and again, hope your visit was as EXCELLENT as possible, even if you were not feeling your best! Medications: Please take medications as prescribed. Continue on omnipod SnapDash insulin delivery system Continue metformin 1000mg twice [...] than once per week. See the Dietitian, Chef Kitchen Manager . Call Centralized Scheduling at [phone] to make an appointment. Exercise: Try moving [...] last office visit. She just returned from [place] visiting her 1st grand son, named Kristian. [...] hyperglycemia, with long-term current use of insulin ([facility]) ([facility]) (Primary) Assessment [...] Assessment & Plan Note - Marialuisa Daniel MACHINE STEMMER - 10/29/2022 3:36 PM CDTAssociated Problem(s): Type [...] hyperglycemia, with long-term current use of insulin ([facility]) ([facility]) POCT GLUCOSE Routine 10/29/2022 1:48 PM CDT Type 2 diabetes mellitus with hyperglycemia, with long-term current use of insulin ([facility]) ([facility]) documented in [...] use of insulin ([facility])- Primary Hyperlipidemia associated with type 2 diabetes mellitus ([facility]) Omnipod Dash Insulin pump in place Insulin [...] 04/16/2023 added in this encounter Care Teams Government Operations Consultant Relationship Specialty Start Date End Date Eron Holliday NP [address] [facility] [place] [address] PCP - General Pain Management 07/15/22 documented as of this encounter
--- OUTSIDE RECORDS SUMMARY | 2024-03-03 17:37 | XMS_ITS | Encounter Summary ---
Author Organization [facility] Address [address] [place] [address] Care Team Providers Care Criminology Professor Name Role Phone Eron Holliday NP Primary Care Provider +1- [phone] Encounter Details Date Type Department Care Team (Latest Contact Info) Description 09/23/2022 10:34 AM CDT - 09/23/2022 11:59 PM CDT Hospital Encounter [facility] [address] [id number] Discharge Disposition: Discharge to home or self care Social History Tobacco Use Types Packs/Day Years Used Date Smoking Tobacco: Former Cigarettes Q uit: 03/20/2020 Smokeless Tobacco: Never Comments No Sex and Gender Information Value Date Recorded Sex Assigned at Not on file Legal Sex Female 8:53 AM [employer] Gender Identity Female 12/26/2023 10:11 PM CDT [...] by mouth daily 12/05/2018 4 Dexcom G6 Pharmacy Graduate Intern miscIndications:T ype 2 diabetes mellitus with hyperglycemia, with long-term current use of insulin ([facility]) USE TO TEST BLOOD SUGAR DIRECTED 1 each 1 08/22/2021 4 Dexcom G6 Sensor deviceIndications :Type 2 diabetes mellitus with hyperglycemia, with long-term current use of insulin ([facility]) USE TO TEST BLOOD SUGAR DIRECTED 4 each 10 01/14/2022 3 Dexcom G6 Transmitter deviceIndications :Type 2 diabetes mellitus with hyperglycemia, with long-term current use of insulin ([facility]) USE TO TEST BLOOD SUGAR TWICE [...] Results * eGFR (09/23/2022 10:34 AM CDT) [facility] eGFR 61 mL/min/1. 73 m2 OLIVIA KNAPP [...] ORDERABLES Final Resu lt Performing Organization Address City/[facility]/ZIP Co de Phone Number OLIVIA KNAPP [address] [address] Department [employer] [place], [place] [id number] * (ABNORMAL) Potassium (09/23/2022 10:34 AM CDT) Potassium, pl 5.0(H) 3.3 - 4.9 mmol/L [facility] Blood 09/23/2022 10:3 4 AM CDT 09/23/2022 2:05 PM CDT Christophe Tan MD LAB BLOOD ORDERABLES Final Resu lt PEREZSTEFFANY KNAPP [address] [address] [place] [address] * Creatinine (09/23/2022 10:34 AM CDT) Creatinine 1.07 0.60 - 1.10 mg/dL [facility] Blood 09/23/2022 10:3 4 AM CDT 09/23/2022 2:05 PM CDT us Christophe Tan MD LAB BLOOD ORDERABLES Final Resu lt OLIVIA KNAPP [address] [address] [place] [address] documented in this encounter Visit Diagnoses Not on filedocumented in this encounter Care Teams Criminology Professor Relationship Specialty Start Date End Date Eron Holliday NP [address] [facility] [place] [address] PCP - General Pain Management 07/15/22 documented as of this encounter
--- OUTSIDE RECORDS SUMMARY | 2024-03-03 17:37 | XMS_ITS | Encounter Summary ---
Author Organization [facility] Healthcare Address [address] [place] [address] Care Team Providers Care Staff Submarine Warfare Officer Name Role Phone Eron Holliday NP Primary Care Provider +1- [phone] Encounter Details Date Type Department Care Team (Late st Contact Info) Description 07/19/2022 11:05 AM CDT Lab [address] [address] Type 2 diabetes mellitus with hyperglycemia, with long-term current use of insulin ([facility]) ([facility]) Social History Tobacco Use Types Packs/Day Years Used Date Smoking Tobacco: Former Cigarettes Q uit: 03/20/2020 Smokeless Tobacco: Never Comments No Sex and Gender Information Value Date Recorded Sex Assigned at Not on file 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 Gender Identity Female 12/26/2023 10:11 PM [...] with long-term current use of insulin (CMS/HCC) ([facility]) EGFR Routine 07/19/2022 11:43 AM CDT DIFFERENTIAL AUTO Routine 07/19/2022 11: 43 AM CDT THYROID FUNCTION CASCADE Routine 07/19/2022 11:43 AM CDT Type 2 diabetes mellitus with hyperglycemia, with long-term current use of insulin (CMS/HCC) ([facility]) CBC WITH AUTO DIFFERENTIAL Routine 07/19/2022 11:43 AM CDT ALBUMIN CREATININE RATIO, URINE Routine 07/19/2022 11:43 AM CDT Type 2 diabetes mellitus with hyperglycemia, with long-term current use of insulin (CMS/HCC) ([facility]) PHOSPHORUS Routine 07/19/2022 11:43 AM CDT Type 2 diabetes mellitus with hyperglycemia, with long-term current use of insulin (CMS/[facility]) ([facility]) HEMOGLOBIN A1C Routine 07/19/2022 11:43 AM CDT CREATININE Routine 07/19/2022 11:43 AM CDT LIPID PANEL Routine 07/19/2022 11:43 AM CDT Type 2 diabetes mellitus with hyperglycemia, with long-term current use of insulin (CMS/HCC) ([facility]) COMPREHENSIVE METABOLIC PANEL Routine 07/19/2022 11:43 AM CDT Type 2 diabetes mellitus with hyperglycemia, with long-term current use of insulin (CMS/HCC) ([facility]) PROTEIN, URINE, 24 HOUR RESULT Routine 07/19/2022 [...] Final Resu lt OLIVIA SANTOYO ([place]) 1 [facility] [place] [address] * eGFR (07/19/2022 11:43 AM CDT) eGFR 61 mL/min/1. 73 m2 OLIVIA SANTOYO ([place]) Comment: Interpretive Data Reference Interval Normal ?>/= [...] BLOOD ORDERABLES Final Resu lt OLIVIA NATANAEL ([place]) 1 [facility] [place] [address] * Differential, auto (07/19/2022 11:43 AM CDT) [...] 12:15 PM CDT us Marialuisa K. Fredy VARNISHER PLASTICOATER LAB BLOOD ORDERABLES Final Resu lt OLIVIA SANTOYO ([place]) 1 [facility] [place] [address] * (ABNORMAL) Phosphorus (07/19/2022 11:43 AM CDT) Phosphorus, pl 5.2(H) 2.3 - 4.5 mg/dL [facility] ([place]) Blood 07/19/2022 11:4 3 AM CDT 07/19/2022 12:15 PM CDT Marialuisa Daniel VARNISHER PLASTICOATER LAB BLOOD ORDERABLES Final Resu lt Performing Organization Address [facility]/ZIP Co de Phone Number OLIVIA SANTOYO ([place]) 1 [facility] [place] [address] * Creatinine (07/19/2022 11:43 AM CDT) Creatinine 1.08 0.60 - 1.10 mg/dL [facility] ([place]) Urine/Blood 07/19/2022 11:4 3 AM CDT 07/19/2022 12:15 PM CDT Marialuisa Daniel VARNISHER PLASTICOATER LAB BLOOD ORDERABLES Final Resu lt Performing Organization Address City/[facility]/ZIP Co de Phone Number OLIVIA SANTOYO ([place]) 1 [facility] [place] [address] * (ABNORMAL) Hemoglobin A1c (07/19/2022 11:43 AM CDT) Hgb A1C 7.1(H) 4.0 - 5.6 % [facility] ([place]) Estimated Average Glucose 157 mg/dL [facility] ([place]) Comment: The ADA recommends reporting an estimated Average Glucose (eAG) with all Hemoglobin A1c results using the equation derived from a study of 507 normal and diabetic adults. ??Minority populations were underrepresented and children were not included. ?? (Diabetes Care 31:1351-1202, 2008). ??The eAG is not equivalent to a fasting glucose. Blood 07/19/2022 11:4 3 AM CDT 07/19/2022 12:15 PM CDT Marialuisa Daniel NP LAB BLOOD ORDERABLES Final Resu lt [facility]NER [facility] ([place]) 1 [facility] [email or web address] [address] * (ABNORMAL) CBC with auto differential (07/19/2022 [...] Final Resu lt OLIVIA [facility] ([place]) 1 [facility] [email or web address] [address] * (ABNORMAL) Lipid panel (07/19/2022 11:43 AM CDT) [facility] Signature Cholesterol 115 30 - 199 mg/dL [...] Final Resu lt Performing Organization Address [facility]/ZIP Co de Phone Number OLIVIA SANTOYO ([place]) 1 [facility] [place] [address] * (ABNORMAL) Albumin Creatinine Ratio, Urine (07/19/2022 11:43 AM CDT) Albumin Ur 339.8 mg/L [facility] ([place]) Comment: Interpretive Data No reference range established. Current interpretive data was last revised 2018. Testing performed by: [address] [address] Creatinine Ur 55.9 mg/dL [facility]IA [facility] ([place]) Comment: Interpretive Data No reference range established. Current interpretive data was last revised 2018. Testing performed by: [address] [address] Albumin Creatinine Ratio, Ur 608(H) 1 - 29 mg/g [facility] ([place]) Comment:Testing performed by : [address] [address] Urine 07/19/2022 11:4 3 AM CDT 07/19/2022 2:01 PM CDT us Marialuisa Daniel NP LAB URINE ORDERABLES Final Resu lt OLIIVA SANTOYO ([place]) 1 [facility] [place] [address] * TSH reflex to free T4 (07/19/2022 11:43 AM CDT) TSH 0.86 0.30 - 4.20 mcIUnit/mL [facility] ([place]) Blood 07/19/2022 11:4 3 AM CDT 07/19/2022 12:15 PM CDT us Marialuisa Daniel NP LAB BLOOD ORDERABLES Final Resu lt OLIVIA SANTOYO ([place]) 1 [facility] [place] [address] * (ABNORMAL) Comprehensive metabolic panel (07/19/2022 11:43 AM CDT) Sodium 137 135 - 145 mmol/L [facility] ([place]) Potassium, pl 5.0(H) 3.3 - [...] CDT 07/19/2022 12:15 PM CDT Marialuisa Daniel VARNISHER PLASTICOATER LAB BLOOD ORDERABLES Final Resu lt Performing Organization Address [facility]/ZIP Co de Phone Number [facility] ([place]) 1 [facility] [place] [address] * Volume and period, urine, 24 hour (07/19/2022 8:15 AM CDT) Volume, ur 2,550 mL [facility] ([place]) Period, Urine Collection 1,469 min [facility] ([place]) Urine 07/19/2022 8:15 AM CDT 07/19/2022 12:27 PM CDT Marialuisa Daniel NP LAB URINE ORDERABLES Final Resu lt Performing Organization Address City/[facility]/ZIP Co de Phone Number [facility] ([place]) 1 [facility] [place] [address] * (ABNORMAL) Protein, urine, 24 hour (07/19/2022 8:15 AM CDT) Protein, 24 hr, ur 1,050(H) 0 - 150 mg/24H [facility] ([place]) Urine 07/19/2022 8:15 AM CDT 07/19/2022 12:27 PM CDT us Marialuisa Daniel VARNISHER PLASTICOATER LAB URINE ORDERABLES Final Resu lt OLIVIA SANTOYO ([place]) 1 [facility] [place] [address] * Creatinine clearance, urine, 24 hour (07/19/2022 8:15 AM CDT) Creatinine Clearance 82 60 - 130 mL/min [facility] ([place]) Creatinine, 24 hr, ur 1.3 0.6 - 1.5 g/24H OLIVIA [facility] ([place]) Urine/Blood 07/19/2022 8:15 AM CDT 07/19/2022 12:27 PM CDT us Marialuisa Daniel VARNISHER PLASTICOATER LAB URINE ORDERABLES Final Resu lt Performing Organization Address City/[facility]/ZIP Co de Phone Number OLIVIA SANTOYO ([place]) 1 [facility] [place] [address] documented in this encounter Visit Diagnoses Diagnosis Type 2 diabetes mellitus with hyperglycemia, with long-term current use of insulin (HCC) documented in this encounter Care Teams Staff Submarine Warfare Officer Relationship Specialty Start Date End Date Eron Holliday NP [address] [place] [address] [place] [address] PCP - General Pain Management 07/15/22 documented as of this encounter
--- OUTSIDE RECORDS SUMMARY | 2024-03-03 17:37 | XMS_ITS | Encounter Summary ---
Author Organization [facility] Address [address] [place] [address] Care Team Providers Care Supervisor Travel Trailer Name Role Phone Eron Holliday NP Primary Care Provider +1- [phone] Reason for Visit * Reason Comments Diabetes Type 2 Encounter Details Date Type Department Care Team (Late st Contact Info) Description 07/15/2022 10:30 AM CDT Office Visit [facility] Diabetes Endocrine Care of [address] [place] [address] Marialuisa Daniel, CHRISTOPHER [address] 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 I am thankful you have trusted me with your care, and hope that you received EXCELLENT care today! Please do not hesitate to call if you have any questions or concerns at [phone]. You may receive a phone call or text asking about your care today. I would love to hear your input and again, hope your visit was as EXCELLENT as possible, even if you were not feeling your best! Medications: Please take medications as prescribed. Continue on omnipod De Correspondent insulin delivery system Continue metformin 1000mg twice [...] once per week. See the Dietitian, Computer Networker . Call Centralized Scheduling at [phone] to make an appointment. 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 She eats 2-3 meals/day. She monitors blood [...] hyperglycemia, with long-term current use of insulin ([facility]) ([facility]) (Primary) Assessment & Plan: [...] eye exam. last dilated eye exam was [facility] Monofilament foot exam completed. protective senses [...] eye exam. last dilated eye exam was [facility] Monofilament foot exam completed. protective senses [...] hyperglycemia, with long-term current use of insulin ([facility]) ([facility]) POCT GLUCOSE Routine 07/15/2022 10:36 AM CDT Type 2 diabetes mellitus with hyperglycemia, with long-term current use of insulin ([facility]) ([facility]) documented in this encounter Results * (ABNORMAL) [...] 07/19/2022 12:15 PM CDT us Marialuisa Daniel MEN'S BASKETBALL COACH LAB BLOOD ORDERABLES Final Resu lt Performing Organization Address City/[facility]/ZIP Co de Phone Number [facility] ([place]) 1 [facility] Department [place] [address] * TSH reflex to free T4 (07/19/2022 11:43 AM CDT) TSH 0.86 0.30 - 4.20 mcIUnit/mL [facility] ([place]) Blood 07/19/2022 11:4 3 AM CDT 07/19/2022 12:15 PM CDT Marialuisa Daniel MEN'S BASKETBALL COACH LAB BLOOD ORDERABLES Final Resu lt OLIVIA [facility] ([place]) 1 [facility] Department [place] [address] * (ABNORMAL) Albumin Creatinine Ratio, Urine (07/19/2022 11:43 AM CDT) Albumin Ur 339.8 mg/L [facility] ([place]) Comment: Interpretive Data No reference range established. Current interpretive data was last revised 2018. Testing performed by: [facility], [address] [place] [address], [place]., [address] Creatinine Ur 55.9 mg/dL [facility] ([place]) Comment: Interpretive Data No reference range established. Current interpretive data was last revised 2018. Testing performed by: [facility], [id number] [place] [address], [place]., [address] Albumin Creatinine Ratio, Ur 608(H) 1 - 29 mg/g OLIVIA SANTOYO ([place]) Comment:Testing performed by : [facility], [id number] [place] [address], [place]., [address] Urine 07/19/2022 11:4 3 AM CDT 07/19/2022 2:01 PM CDT us Marialuisa Daniel NP LAB URINE ORDERABLES Final Resu lt OLIVIA SANTOYO ([place]) 1 [facility] Department [place] [address] * (ABNORMAL) Lipid panel (07/19/2022 11:43 AM [...] 2017. Non-HDL Cholesterol 80 mg/dL OLIVIA SANTOYO ([place]) Comment: Interpretive Data Ages < or = [...] on 2017. Chol/HDL ratio 3 EDER SANTOYO ([place]) Blood 07/19/2022 11:4 3 AM CDT 07/19/2022 12:15 PM CDT Narrative PEREZSTEFFANY SANTOYO ([place]) - 07/19/2022 12:44 PM CDT These lab test should be done fasting. This means do not eat or drink for at least 12 hours prior to getting your blood drawn. Marialuisa Daniel NP LAB BLOOD ORDERABLES Final Resu lt OLIVIA NATANAEL ([place]) 1 [facility] Department [place] [address] * POCT hemoglobin A1c (07/15/2022 10:42 AM [...] hyperglycemia, with long-term current use of insulin ([facility]) documented in this encounter [...] 3 added in this encounter Care Teams Supervisor Travel Trailer Relationship Specialty Start Date End Date Eron Holliday NP [address] [facility] [place] [address] PCP - General Pain Management 07/15/22 documented as of this encounter
--- OUTSIDE RECORDS SUMMARY | 2024-03-03 17:38 | XMS_ITS | Encounter Summary ---
Author Organization [facility] Healthcare Address [address] [place] [address] Care Team Providers Care Voltage Regulator Assembler Name Role Phone Marialuisa Daniel NP Primary Care Provider [phone] Reason for Visit * Reason Comments Initial Consult Back Pain Leg Pain Hand Pain Encounter Details Date Type Department Care Team (Late st Contact Info) Description 06/22/2021 1:18 PM CDT - 06/22/2021 11:59 PM CDT Hospital Encounter [facility] [address] [place] [address] [place] T[place] [id number] [place] [address] [address] [place] [address] Radiculopathy, lumbosacral region (Primary Dx); Cervical radiculopathy; [...] file Legal Sex Female 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 Gender Identity Female 12/26/2023 10:11 PM [...] each 07/04/2017 4 blood-glucose meter,continuous (Dexcom G6 Impregnation Operator) miscIndications:t ype 2 diabetes mellitus 1 Device continuously 1 each 1 01/24/2020 2 cetirizine (ZyrTEC) 10 mg tablet Take 1 tablet (10 mg total) by mouth daily 12/05/2018 4 citalopram (CeleXA) 40 mg tablet Take 20 mg by mouth daily 2 Dexcom G6 Sensor deviceIndications :Type 2 diabetes mellitus with hyperglycemia, with long-term current use of insulin ([facility]) USE TO TEST BLOOD SUGAR DIRECTED 9 each 3 04/02/2021 2 Dexcom G6 Transmitter deviceIndications :Type 2 diabetes mellitus with hyperglycemia, with long-term current use of insulin ([facility]) USE TO TEST BLOOD SUGAR TWICE A [...] use of insulin ([facility]) USE PER INSULIN PUMP MAX OF 150 [...] utilized: Tylenol, Steroids, Gabapentin, Flexeril, Tramadol, Tizanidine, Tutor Key, Morphine Allergies Allergen Reactions ??? Codeine Vomiting ??? Ibuprofen Other (See comments) Past Medical History: Diagnosis Date ??? Uncontrolled type 2 diabetes mellitus with hyperglycemia, with long-term current use of insulin([facility]) 04/03/2017 Patient Active Problem List Diagnosis ??? Anxiety and depression ??? Gastroesophageal reflux ??? Class 3 severe obesity due to excess calories with serious comorbidity and body mass index (BMI) of 40.0 to 44.9 in adult ([facility]) ??? Cigarette smoker ??? Type 2 diabetes mellitus with hyperglycemia, with long-term current use of insulin ([facility]) ([facility]) ??? Insulin pump titration ??? Type 2 diabetes mellitus with microalbuminuria, with long-term current use of insulin ([facility]) ??? Hyperlipidemia associated with type 2 diabetes mellitus ([facility]) ??? Morbid (severe) obesity due to excess calories ([facility]) ??? Radiculopathy, lumbosacral region ??? Cervical radiculopathy [...] blood-glucose meter kit blood-glucose meter,continuous (Dexcom G6 Impregnation Operator) misc citalopram (CeleXA) 40 mg tablet clopidogreL [...] 9 is higher risk of opioid misuse) [place] and [place] Prescription Drug Monitoring Reviewed and found appropriate. [...] discuss pharmacological options with their family doctor. Brazer Resistance: Brazer Resistance done with Fluency Direct: variances and inaccuracies [...] there are potential variances in recording and hairspring setter.Dictations not proofread. documented in this encounter Plan [...] 12/28/2021 added in this encounter Care Teams Voltage Regulator Assembler Relationship Specialty Start Date End Date Marialuisa Daniel NP PCP - General 07/07/20 06/27/21 documented as of this encounter
--- OUTSIDE RECORDS SUMMARY | 2024-03-03 17:38 | XMS_ITS | Encounter Summary ---
Author Organization [facility] Healthcare Address [address] [place] [address] Care Team Providers Care Art Sales Consultant Name Role Phone Vilma Herrera Primary Care Provider [phone] Encounter Details Date Type Department Care Team (Late st Contact Info) Description 06/09/2020 11:45 AM CDT Lab [address] Leobardo Bhagat MD [address] [place] [address] Discharge Disposition: Discharge to home or self care Social History Tobacco Use Types Packs/Day Years Used Date Smoking Tobacco: Every Day Smokeless Tobacco: Never Comments Unknown Sex and Gender Information Value Date Recorded Sex Assigned at Not on file 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 Gender Identity Female 12/26/2023 10:11 PM [...] ORDERABLES Final Re sult Performing Organization Address [facility] Co de Phone Number [facility] 1 [facility] [place] [address] * (ABNORMAL) Urinalysis, microscopic only (06/09/2020 11:45 AM CDT) WBC, ur 6-10(A) 0 - 5 /HPF [facility] ([place] [place]) RBC, ur 0-2 0 - 2 /HPF [facility] ([facility]) Epithelial cells, squamous, ur 1-5 0 - 5 /HPF [facility] ([place]) Bacteria, ur Trace(A) [facility] ([place]) Mucous, ur Present(A) [facility] ([place]) Urine 06/09/2020 11:4 5 AM CDT 06/09/2020 1:15 PM CDT Leobardo Bhagat MD LAB URINE ORDERABLES Final Re sult Performing Organization Address [facility] Co de Phone Number [facility] 1 [facility] [place] [address] * Differential, auto (06/09/2020 11:45 AM CDT) [...] Final Re sult [facility] ([facility]) 1 [facility] [place] [address] * (ABNORMAL) Urinalysis reflex to microscopic (06/09/2020 [...] for uric acid stone formation. Source: [email or web address]. Last revised 03-06-2017 us Leobardo Bhagat MD LAB URINE ORDERABLES Final Re sult [facility] ([facility]) 1 [facility] [place] [address] * PTH (06/09/2020 11:45 AM CDT) PTH 65 15 - 65 pg/mL [facility] ([facility]) Blood specimen (specimen) 06/09/2020 11:45 AM CDT 06/09/2020 1:15 PM CDT us Leobardo Bhagat MD LAB BLOOD ORDERABLES Final Re sult [facility] ([facility]) 1 [facility] [place] [address] * TSH (06/09/2020 11:45 AM CDT) Pathologist [facility] Thyroid Stimulating Hormone 1.56 0.30 - 4.20 mcIUnit/mL [facility] ([facility]) Blood specimen (specimen) 06/09/2020 11:45 AM CDT 06/09/2020 1:15 PM CDT Leobardo Bhagat MD LAB BLOOD ORDERABLES Final Re sult Performing Organization Address City/[facility]/ZIP Co de Phone Number [facility] ([facility]) 1 [facility] [place] [address] * (ABNORMAL) CBC with auto differential (06/09/2020 11:45 AM CDT) Pathologist [facility] WBC 8.5 3.8 - 9.9 K/cumm [facility] [...] Final Re sult [facility] ([place]) 1 [facility] Department [place] [address] * Renal function panel (06/09/2020 11:45 AM [...] BLOOD ORDERABLES Final Re sult [facility] ([place] 1 [facility] [place] [address] * Erythrocyte sedimentation rate (06/09/2020 11:45 AM CDT) Erythrocyte sedimentation rate 22 1 - 30 mm/hr [facility] ([place]) Blood specimen (specimen) 06/09/2020 11:45 AM CDT 06/09/2020 1:15 PM CDT Leobardo Bhagat MD LAB BLOOD ORDERABLES Final Re sult Performing Organization Address [facility] Co de Phone Number [facility] 1 [place] [address] documented in this encounter Visit Diagnoses Not on filedocumented in this encounter Care Teams Art Sales Consultant Relationship Specialty Start Date End Date Vilma Herrera PA [address] [place] [address] PCP - General Physician Can Stacker 08/19/19 07/06/20 documented as of this encounter
--- OUTSIDE RECORDS SUMMARY | 2024-03-03 17:38 | XMS_ITS | Encounter Summary ---
Author Organization [facility] Healthcare Address [address] [place] [address] Care Team Providers Care Manager Ccu Name Role Phone Marialuisa Daniel NP Primary Care Provider [phone] Reason for Referral * MRI/CAT/PET Scan (Routine) - Closed Specialty Diagnoses / Procedures Referred By Contac t Referred To Contact Radiology Diagnoses Chronic bilateral low back pain with bilateral sciatica Radiculopathy, lumbosacral region Lumbar facet joint syndrome Procedures MRI [place] [address] [facility] [address] [place] [address] Phone: tel: fax: [address] [address] Referral ID Status Reason Start Date Expiration Date Visits Re quested Visits Authorized [id number] Closed 06/27/2021 08/25/2021 1 1 Encounter Details Date Type Department Care Team (Late st Contact Info) Description 06/27/2021 Orders Only [facility] [address] [place] [address] [place] [address] [facility] [address] [place] [address] Chronic bilateral low back pain with bilateral sciatica (Primary Dx); Radiculopathy, lumbosacral region; Lumbar facet joint syndrome Social History Tobacco Use Types Packs/Day Years Used Date Smoking Tobacco: Every Day Cigarettes Last attempted to quit: 03/20/2020 Smokeless Tobacco: Never Comments No Sex and Gender Information Value Date Recorded Sex Assigned at Not on file 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
--- OUTSIDE RECORDS SUMMARY | 2024-03-03 17:38 | XMS_ITS | Encounter Summary ---
Author Organization [facility] Group Address [address] [facility] [address] [place] [address] Care Team Providers Care Chief Security Officer Name Role Phone Eron Holliday NP Primary Care Provider [phone] Encounter Details Date Type Department Care Team (Late st Contact Info) Description 07/25/2021 Telephone [facility] [address] [place] [address] Marialuisa Daniel, CHRISTOPHER [address] [facility] [address] [place] [address] Social History Tobacco Use Types Packs/Day Years Used Date Smoking Tobacco: Every Day Cigarettes Last attempted to quit: 03/20/2020 Smokeless Tobacco: Never Comments No Sex and Gender Information Value Date Recorded Sex Assigned at Not on file Legal Sex Female 8:53 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
--- OUTSIDE RECORDS SUMMARY | 2024-03-03 17:38 | XMS_ITS | Encounter Summary ---
Author Organization [facility] Healthcare Address [address] [place] [address] Care Team Providers Care Press Machine Operator Name Role Phone Marialuisa Daniel INKER AND OPAQUER Primary Care Provider [phone] Eron Holliday INKER AND OPAQUER Primary Care Provider [phone] Encounter Details Date Type Department Care Team (Late st Contact Info) Description 06/27/2021 Telephone [facility] [address] [place] [address] [place] Tee [place] [id number] [place] [address] [address] [place], [place] [id number] Social History Tobacco Use Types Packs/Day Years Used Date Smoking Tobacco: Every Day Cigarettes Last attempted to quit: 03/20/2020 Smokeless Tobacco: Never Comments No Sex and Gender Information Value Date Recorded Sex Assigned at Not on file Legal 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 Gender Identity Female 12/26/2023 10:11 PM CDT Sexual Orientation Straight 12/26/2023 10 :11 PM CDT documented as of this encounter Miscellaneous Notes * Telephone Encounter - Clementine Bravo RN - 06/27/2021 12:21 PM CDT Done, Patient Notified * Telephone Encounter - Donita Hendricks - 06/27/2021 11:07 AM CDT PLEASE ORDER LUMBAR MRI WITHOUT RAD [facility] AUTH# [id number] 07/15-09/14/21 CERVICAL XRAY LET PATIENT KNOW MRI CERVICAL IS DENIED AND SHE NEEDS XRAY FIRST documented in this encounter Plan of Treatment Not on file documented as of this encounter Visit Diagnoses Not on filedocumented in this encounter Care Teams Press Machine Operator Relationship Specialty Start Date End Date Marialuisa Daniel NP PCP - General 07/07/20 06/27/21 Eron Holliday NP [address] [place] [address] PCP - General 06/28/21 05/08/22 documented as of this encounter
--- OUTSIDE RECORDS SUMMARY | 2024-03-03 17:38 | XMS_ITS | Encounter Summary ---
Author Organization [facility] Medical Group Address [address] [facility] [address] [place] [address] Care Team Providers Care Assistant Baseball Coach Name Role Phone Eron Holliday NP Primary Care Provider [phone] Reason for Visit * Reason Onset Date Comments New PDM set up 12/26/2021 Encounter Details Date Type Department Care Team (Late st Contact Info) Description 12/26/2021 Telephone [facility] Diabetes Endocrine Care of [address] [place] [address] Marialuisa Daniel, CHRISTOPHER [address] [address] New PDM set up Social History Tobacco Use Types Packs/Day Years Used Date Smoking Tobacco: Former Cigarettes Q uit: 03/20/2020 Smokeless Tobacco: Never Comments No Sex and Gender Information Value Date Recorded Sex Assigned at Not on file Legal Sex Female 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
--- OUTSIDE RECORDS SUMMARY | 2024-03-03 17:38 | XMS_ITS | Encounter Summary ---
Author Organization [facility] Healthcare Address [address] [place] [address] Care Team Providers Care Visual Manager Name Role Phone Eron Holliday NP Primary Care Provider [phone] Encounter Details Date Type Department Care Team (Latest Contact Info) Description 03/27/2022 9:30 AM PIPE FITTINGS MOLDER - 03/27/2022 11:59 PM PIPE FITTINGS MOLDER Hospital Encounter [facility] [address] [place] [address] Discharge Disposition: Discharge to home or self care Social History Tobacco Use Types Packs/Day Years Used Date Smoking Tobacco: Former Cigarettes Q uit: 03/20/2020 Smokeless Tobacco: Never Comments No Sex and Gender Information Value Date Recorded Sex Assigned at Not on file Legal Sex Female 8:53 AM PIPE FITTINGS MOLDER Gender Identity Female 12/26/2023 10:11 PM CDT [...] by mouth daily 12/05/2018 4 Dexcom G6 Medical Claims Analyst miscIndications:T ype 2 diabetes mellitus with [...] Diagnosis Comments EGFR Routine 03/27/2022 9:30 AM PIPE FITTINGS MOLDER POTASSIUM LEVEL Routine 03/27/2022 9:30 AM PIPE FITTINGS MOLDER CREATININE Routine 03/27/2022 9:30 AM PIPE FITTINGS MOLDER documented in this encounter Results * eGFR (03/27/2022 9:30 AM PIPE FITTINGS MOLDER) eGFR 62 mL/min/1. 73 m2 [facility] [...] last reviewed 2020. Blood 03/27/2022 9:30 AM PIPE FITTINGS MOLDER 03/27/2022 7:25 PM PIPE FITTINGS MOLDER us Christophe Tan MD LAB BLOOD ORDERABLES Final Resu lt Performing Organization Address [facility]/ZIP Co de Phone Number [facility] [address] [address] [facility] [place] [address] * (ABNORMAL) Potassium (03/27/2022 9:30 AM PIPE FITTINGS MOLDER) Potassium, pl 5.3(H) 3.3 - 4.9 mmol/L [facility] Blood 03/27/2022 9:30 AM PIPE FITTINGS MOLDER 03/27/2022 7:00 PM PIPE FITTINGS MOLDER us Christophe Tan MD LAB BLOOD ORDERABLES Final Resu lt Performing Organization Address [facility] Co de Phone Number [facility] K[facility] [address] [address] [facility] [place] [address] * Creatinine (03/27/2022 9:30 AM PIPE FITTINGS MOLDER) Creatinine 1.06 0.60 - 1.10 mg/dL [facility] Blood 03/27/2022 9:30 AM PIPE FITTINGS MOLDER 03/27/2022 7:00 PM PIPE FITTINGS MOLDER us Christophe Tan MD LAB BLOOD ORDERABLES Final Resu lt Performing Organization Address [facility] Co de Phone Number [facility] [address] [address] [facility] [place] [address] documented in this encounter Visit Diagnoses Not on filedocumented in this encounter Care Teams Visual Manager Relationship Specialty Start Date End Date Eron Holliday NP [address] [place] [address] [place] [address] PCP - General 06/28/21 05/08/22 documented as of this encounter
--- OUTSIDE RECORDS SUMMARY | 2024-03-03 17:38 | XMS_ITS | Encounter Summary ---
Author Organization [facility] Medical Group Address [address] [facility] [address] [place] [address] Care Team Providers Care Imaging Engineer Name Role Phone Marialuisa Tyson NP Primary Care Provider [phone] Reason for Visit * Reason Comments Diabetes Type 2 Encounter Details Date Type Department Care Team (Late st Contact Info) Description 12/01/2020 10:00 AM CDT Office Visit [facility] of [address] [place] [address] Marialuisa Tyson, SUPERVISOR LAUNDRY [address] [address] Type 2 diabetes mellitus with [...] on file Legal Sex Female 8:53 AM PUBLIC HE[employer] INTERNSHIP Gender Identity Female 12/26/2023 10:11 PM CDT [...] you have any questions or concerns at [phone]. You may receive a phone call or [...] once per week. ??? See the Dietitian, Slicing Machine Tender . Call Centralized Scheduling at [phone] to make an appointment. Exercise: ??? Try [...] each 0 ??? blood-glucose meter,continuous (Dexcom G6 Gum Dipper) misc 1 Device continuously 1 each 1 [...] with hyperglycemia, with long-term current use of insulin([facility] ([facility]) 04/03/2017 Social History Tobacco Use [...] hyperglycemia, with long-term current use of insulin ([facility]) ([facility]) (Primary) Assessment & Plan: This is a chronic condition which is??stable??hyperglycemia, not at goal. ?? Personally reviewed A1c today-??8.2% Not at ??goal less than 7% Medication- Continue Omnipod pump?? Continue Ozempic 1mg weekly . Monitor blood sugar??continuously with DexCom 6 sensor. ?? Encouraged annual eye exam. ??last dilated eye exam was [facility]? Monofilament foot exam completed, protective senses intact Urine microalbumin/creatinine ratio -??865?Currently on Losartan 25 mg daily/ HCTZ, ?goal <30 . ??Seeing Dr. Bhagat Personally reviewed labs: (06/14)BUN-??16?, creatinine- 0.94?GFR- 69?Kidney function- abnormal B/P today-102/50??, currently Losartan 25 mg daily??and HCTZ. ??At goal blood pressure is <140/90 Personally reviewed LDL -47, currently on??atorvastatin 80mg daily.?? No history of macrovascular disease - CVA, ID.? Dexcom downloaded for??11/18/20 to 12/01/20 This device [...] gangrene, with long-term current use of insulin ([facility]) (HCC) (Deleted) This is a chronic condition which is??stable??hyperglycemia, not at goal. ?? Personally reviewed A1c today-??8.2% Not at ??goal less than 7% Medication- Continue Omnipod pump?? Continue Ozempic 1mg weekly . Monitor blood sugar??continuously with DexCom 6 sensor. ?? Encouraged annual eye exam. ??last dilated eye exam was [facility] [place]? Monofilament foot exam completed, protective senses intact Urine microalbumin/creatinine ratio -??865?Currently on Losartan 25 mg daily/ HCTZ, ?goal <30 . ??Seeing Dr. Bhagat Personally reviewed labs: (06/14)BUN-??16?, creatinine- 0.94?GFR- 69?Kidney function- abnormal B/P today-102/50??, currently Losartan 25 mg daily??and HCTZ. ??At goal blood pressure is <140/90 Personally reviewed LDL -47, currently on??atorvastatin 80mg daily.?? No history of macrovascular disease - CVA, ID.? Dexcom downloaded for??11/18/20 to 12/01/20 This device [...] eye exam. ??last dilated eye exam was [facility]? Monofilament foot exam completed, protective senses intact Urine microalbumin/creatinine ratio -??865?Currently on Losartan 25 mg daily/ HCTZ, ?goal <30 . ??Seeing Dr. Bhagat Personally reviewed labs: (06/14)BUN-??16?, creatinine- 0.94?GFR- 69?Kidney function- abnormal B/P today-102/50??, currently Losartan 25 mg daily??and HCTZ. ??At goal blood pressure is <140/90 Personally reviewed LDL -47, currently on??atorvastatin 80mg daily.?? No history of macrovascular disease - CVA, ID.? Dexcom downloaded for??11/18/20 to 12/01/20 This device [...] hyperglycemia, with long-term current use of insulin ([facility] ([facility]) POCT GLUCOSE Routine 12/01/2020 1:50 PM CDT Type 2 diabetes mellitus with hyperglycemia, with long-term current use of insulin ([facility]) ([facility]) [...] 23 added in this encounter Care Teams Imaging Engineer Relationship Specialty Start Date End Date Marialuisa Tysno, CHRISTOPHER PCP - General 07/07/20 06/27/21 documented as of this encounter
--- OUTSIDE RECORDS SUMMARY | 2024-03-03 17:38 | XMS_ITS | Encounter Summary ---
Author Organization [facility] Address [address] [place] [address] Care Team Providers Care Funeral Prearrangement Counselor Name Role Phone Vilma Herrera Primary Care Provider [phone] Reason for Visit * Reason Comments Diabetes Type 2 Hyperglycemia Encounter Details Date Type Department Care Team (Late st Contact Info) Description 11/19/2019 4:00 PM CDT Office Visit [facility] of [address] [place] [address] Marialuisa Tyson, BUSINESS MANAGEMENT CONSULTANT [address] [address] Uncontrolled type 2 diabetes mellitus with hyperglycemia, with long-term current use of insulin (CMS/[facility]) (Primary Dx); Type 2 diabetes mellitus with hyperglycemia, with long-term current use of insulin (CMS/HCC); Tobacco abuse Social History Tobacco Use Types Packs/Day Years Used Date Smoking Tobacco: Every Day Smokeless Tobacco: Never Comments Unknown Sex and Gender Information Value Date Recorded Sex Assigned at Not on file Legal Sex Female 8:53 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 Make appt to see Dr. Bhagat [phone] kidney doctor. Exercise: ??? Try moving at [...] ??? Call office for questions or concerns. [phone] documented in this encounter Ordered Prescriptions Prescription [...] Take 75 mg by mouth daily ??? Getui G6 Transmitter device USE TO TEST BLOOD [...] with long-term current use of insulin ([facility]) (Primary) Assessment & Plan: This is a chronic condition which is improving, but not at goal. Labs reviewed. A1c today- 7.4 Medication- Continue Basaglar 30 units twice daily, Novolog 30 units at meals, Increase Ozempic to 1mg weekly, Metformin 1000 mg po bid Monitor blood sugar continuously with DexCom 6 Referrals made to [facility] and [facility] regarding insulin pump therapy dilated eye exam appt is made for Monofilament foot exam completed, protective senses intact Urine microalbumin/creatinine - abnormal on lisinopril Kidney function eGRF- 55, BUN- 21, creatinine- 1.14 BP today- 138/74 , currently on lisinopril 10 mg daily LDL - 47, currently on Zetia history of macrovascular disease - CVA, [place]. Referral to Dr. Bhagat Orders: - POCT hemoglobin A1c - semaglutide (Ozempic) 1 mg/dose (2 mg/1.5 mL) pen injector; Inject 1 mg under the skin every 7 days - Ambulatory referral to Nephrology; Future Type 2 diabetes mellitus with hyperglycemia, with long-term current use of insulin ([facility]) Assessment & Plan: Dexcom downloaded for [...] gangrene, with long-term current use of insulin ([facility]) ([facility]) (Deleted) Dexcom downloaded for October-nov 19, [...] pump options, with demonstrations Referral made to [email or web address] and [facility]. * Assessment & Plan Note - Marialuisa [...] continuously with DexCom 6 Referrals made to [facility] and [facility] regarding insulin pump therapy dilated eye exam appt is made for Monofilament foot exam completed, protective senses intact Urine microalbumin/creatinine - abnormal on lisinopril Kidney function eGRF- 55, BUN- 21, creatinine- 1.14 BP today- 138/74 , currently on lisinopril 10 mg daily LDL - 47, currently on Zetia history of macrovascular disease - CVA, [place]. Referral to Dr. Bhagat * Assessment & [...] with long-term current use of insulin ([facility]) documented in this encounter Results * POCT hemoglobin A1c (11/19/2019 4:32 PM CDT) Hemoglobin A1C, POC 7.4 Blood specimen (specimen) 11/19/2019 4:32 PM CDT Marialuisa Tyson BUSINESS MANAGEMENT CONSULTANT POINT OF CARE TEST ORDERABLES F inal Result documented in this encounter Visit Diagnoses Diagnosis Uncontrolled type 2 diabetes mellitus with hyperglycemia, with long-term current use of insulin ([facility])- Primary Type 2 diabetes mellitus with hyperglycemia, with long-term current use of insulin ([facility]) Tobacco abuse Tobacco use disorder documented [...] documented as of this encounter Care Teams Funeral Prearrangement Counselor Relationship Specialty Start Date End Date Vilma Herrera PA [address] [place] [address] PCP - General Physician Drill Sharpener 08/19/19 07/06/20 documented as of this encounter
--- OUTSIDE RECORDS SUMMARY | 2024-03-03 17:38 | XMS_ITS | Encounter Summary ---
Author Organization [facility] Address [address] [place] [address] Care Team Providers Care Head Of Housekeeping Name Role Phone Marialuisa Daniel NP Primary Care Provider [phone] Encounter Details Date Type Department Care Team (Late st Contact Info) Description 03/01/2021 Telephone [facility] of [address] [place] [address] Marialuisa Daniel, PHYSICIAN PRACTICE ADMINISTRATOR [address] [facility] [address] [place] [address] Social History Tobacco Use Types Packs/Day Years Used Date Smoking Tobacco: Every Day Cigarettes Last attempted to quit: 03/20/2020 Smokeless Tobacco: Never Comments Unknown Sex and Gender Information Value Date Recorded Sex Assigned at Not on file Legal 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 RAIL CAR OPERATOR documented in this encounter Plan of Treatment Not on file documented as of this encounter Visit Diagnoses Not on filedocumented in this encounter Care Teams Head Of Housekeeping Relationship Specialty Start Date End Date Marialuisa Daniel NP PCP - General 07/07/20 06/27/21 documented as of this encounter
--- OUTSIDE RECORDS SUMMARY | 2024-03-03 17:38 | XMS_ITS | Encounter Summary ---
Author Organization [facility] Address [address] [facility] [address] [place] [address] Care Team Providers Care Associate Artistic Director Name Role Phone Vilma Herrera Primary Care Provider [phone] Reason for Visit * Reason Onset Date Comments Referral follow up 02/11/2020 Encounter Details Date Type Department Care Team (Late st Contact Info) Description 02/11/2020 Telephone [facility] of [address] [place] [address] Lorne Mcginnis MD [address] [place] [address] Referral follow up Social History Tobacco Use Types Packs/Day Years Used Date Smoking Tobacco: Every Day Smokeless Tobacco: Never Comments Unknown Sex and Gender Information Value Date Recorded Sex Assigned at Not on file Legal Sex Female 8:53 AM PRODUCTION FOREMAN Gender Identity Female 12/26/2023 10:11 PM CDT [...] the firstof the new Year. I informed FOOD PROCESSOR Fredy of this and she stated to call patient and let her know and tell her to make the appointment as soon as they can get her scheduled. I have called patient and she is aware. UCTION FOREMAN documented in this encounter Plan of Treatment Not on file documented as of this encounter Visit Diagnoses Not on filedocumented in this encounter Care Teams Associate Artistic Director Relationship Specialty Start Date End Date Vilma Herrera PA [address] [place] [address] PCP - General Physician Supervisor Wrapping Room 08/19/19 07/06/20 documented as of this encounter
--- OUTSIDE RECORDS SUMMARY | 2024-03-03 17:38 | XMS_ITS | Encounter Summary ---
Author Organization [facility] Address [address] [facility] [address] [place] [address] Care Team Providers Care Muck Miner Name Role Phone Eron Holliday NP Primary Care Provider [phone] Reason for Visit * Reason Comments Diabetes Type 2 Encounter Details Date Type Department Care Team (Late st Contact Info) Description 12/28/2021 2:00 PM CDT Office Visit [facility] Diabetes Endocrine Care of [address] [place] [address] Marialuisa Tyson, CHRISTOPHER [address] [facility] [address] [place] [address] Type 2 diabetes mellitus with diabetic peripheral angiopathy without gangrene, with long-term current use of insulin (CMS/[facility]) ([facility]) (Primary Dx); Type 2 diabetes mellitus with microalbuminuria, with long-term current use of insulin (CMS/[facility]) (HCC); Primary hypertension; Insulin pump titration Social History Tobacco Use Types Packs/Day Years Used Date Smoking Tobacco: Former Cigarettes Q uit: 03/20/2020 Smokeless Tobacco: Never Tobacco Cessation:Counseling Given: Not Answered Comments No Sex and Gender Information Value Date Recorded Sex Assigned at Not on file Legal Sex Female 8:53 AM 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 I am thankful you have trusted me with your care, and hope that you received EXCELLENT care today! Please do not hesitate to call if you have any questions or concerns at [phone]. You may receive a phone call or [...] than once per week. See the Dietitian, Cart Attendant . Call Centralized Scheduling at [phone] to make an appointment. Exercise: Try moving [...] gangrene, with long-term current use of insulin ([facility]) ([facility] [...] at goal <30 Continue losartan. Personally reviewed [facility] GFR- 67 Kidney function- abnormal B/P today- not at goal. Goal is <140/90 continue losartan Personally reviewed lipid panel. at Goal of less than 70. Continue atorvastatin and zetia. Type 2 diabetes mellitus with microalbuminuria, with long-term current use of insulin ([facility]) ([facility]) Assessment & Plan: This is a [...] gangrene, with long-term current use of insulin ([facility]) (HCC) (Deleted) This is a chronic [...] of insulin ([facility]) >>ASSESSMENT AND PLAN FOR TYPE 2 DIABETES MELLITUS WITH DIABETIC PERIPHERAL ANGIOPATHY WITHOUT GANGRENE, WITH LONG-TERM CURRENT USE OF INSULIN ([facility]) (HCC) WRITTEN ON 12/28/2021 2:43 PM [...] microalbuminuria, with long-term current use of insulin ([facility]) ([facility]) POCT GLUCOSE Routine 12/28/2021 2:19 PM CDT Type 2 diabetes mellitus with microalbuminuria, with long-term current use of insulin ([facility]) ([facility] [...] gangrene, with long-term current use of insulin ([facility])- Primary Type 2 diabetes mellitus with microalbuminuria, with long-term current use of insulin ([facility]) Primary hypertension Unspecified essential hypertension Insulin [...] 11/20/2023 added in this encounter Care Teams Muck Miner Relationship Specialty Start Date End Date Eron Holliday NP [address] [place] [address] PCP - General 06/28/21 05/08/22 documented as of this encounter
--- OUTSIDE RECORDS SUMMARY | 2024-03-03 17:38 | XMS_ITS | Encounter Summary ---
Author Organization [facility] Address [address] [place] [address] Care Team Providers Care Coil Winder Name Role Phone Eron Holliday NP Primary Care Provider [phone] Encounter Details Date Type Department Care Team (Late st Contact Info) Description 12/25/2021 Telephone [facility] Diabetes Endocrine Care of [address] [place] [address] Marialuisa Daniel, STARCHER AND TENTER RANGE FEEDER [address] [facility] [address] [place] [address] Social History Tobacco Use Types Packs/Day Years Used Date Smoking Tobacco: Former Cigarettes Q uit: 03/20/2020 Smokeless Tobacco: Never Comments No Sex and Gender Information Value Date Recorded Sex Assigned at Not on file Legal Sex Female 8:53 AM COMPUTER SECURITY SPECIALIST Gender Identity Female 12/26/2023 10:11 PM [...] so she will need long acting sent [facility] if you want her to inject fast acting. Her BG was 160 up from 130 this AM. Please sendto [facility] in [place]. Please advise, thank you documented in this encounter Plan of Treatment Not on file documented as of this encounter Visit Diagnoses Not on filedocumented in this encounter Care Teams Coil Winder Relationship Specialty Start Date End Date Eron Holliday NP [address] [place] [address] [place] [address] PCP - General 06/28/21 05/08/22 documented as of this encounter
--- OUTSIDE RECORDS SUMMARY | 2024-03-03 17:38 | XMS_ITS | Encounter Summary ---
Author Organization [facility] Address [address] [facility] [address] [place] [address] Care Team Providers Care Home Stereo Equipment Installer Name Role Phone Vilma Herrera Primary Care Provider [phone] Encounter Details Date Type Department Care Team (Late st Contact Info) Description 12/14/2019 Telephone [facility] [address] [facility] [place] [address] Vilma Herrera PA [address] [place] [address] Social History Tobacco Use Types Packs/Day Years Used Date Smoking Tobacco: Every Day Smokeless Tobacco: Never Comments Unknown Sex and Gender Information Value Date Recorded Sex Assigned at Not on file Legal Sex Female 8:53 AM MANAGER OF DRILLING Gender Identity Female 12/26/2023 10:11 PM CDT [...] Notes * Telephone Encounter - Marialuisa Daniel, PROJECT MANAGEMENT SPECIALIST - 12/14/2019 11:19 AM CDT Returned call to patient. [employer] pump training is with Ashley Metz. Novolog insulin vial was called into [place] [facility]. * Telephone Encounter - Allyssa Avina MA - 12/14/2019 10:39 AM CDT Please advise, thank you * Telephone Encounter - Carrie Miilan - 12/14/2019 10:10 AM CDT Pt calling [...] Primary documented in this encounter Care Teams Home Stereo Equipment Installer Relationship Specialty Start Date End Date Vilma Herrera PA [address] [place] [address] PCP - General Physician Prescriptionist 08/19/19 07/06/20 documented as of this encounter
--- OUTSIDE RECORDS SUMMARY | 2024-03-03 17:38 | XMS_ITS | Encounter Summary ---
Author Organization [facility] Address [address] [facility] [address] [place] [address] Care Team Providers Care Requirements Analyst Name Role Phone Vilma Herrera Primary Care Provider [phone] Encounter Details Date Type Department Care Team (Late st Contact Info) Description 03/27/2020 Telephone [facility] of [address] [place] [address] Lorne Mcginnis MD [address] [place] [address] [address] [place] [address] Social History Tobacco Use Types Packs/Day Years Used Date Smoking Tobacco: Every Day Smokeless Tobacco: Never Comments Unknown Sex and Gender Information Value Date Recorded Sex Assigned at Not on file Legal Sex Female 8:53 AM STORE DELI MANAGER Gender Identity Female 12/26/2023 10:11 PM [...] sent with increase max. Daily dose. Marialuisa E DELI MANAGER * Telephone Encounter - Brian Metz MA - 03/27/2020 3:11 PM CST marialuisa E DELI MANAGER * Telephone Encounter - Eulalio Simental - 03/27/2020 3:04 PM CST Pt calling to check on new script. She states she only has 33 units left in her pump E DELI MANAGER * Telephone Encounter - Allyssa Avina MA - 03/27/2020 2:52 PM CST Please advise, thank you E DELI MANAGER * Telephone Encounter - Armida Saeed - 03/27/2020 2:39 PM CST Marialuisa - Pt is using more than the 75 ml of Novolog in her insulin pump. The pharmacy checked and thept used 108 yesterday. Her pharmacy, [facility], is asking for a new prescription for the pt's Novolog because the pt is out and is asking for an early refill. Please advise. E DELI MANAGER documented in this encounter Plan of Treatment [...] documented as of this encounter Care Teams Requirements Analyst Relationship Specialty Start Date End Date Vilma Herrera PA [address] [place] [address] PCP - General Physician Cereal Supervisor 08/19/19 07/06/20 documented as of this encounter
--- OUTSIDE RECORDS SUMMARY | 2024-03-03 17:38 | XMS_ITS | Encounter Summary ---
Author Organization [facility] Address [address] [place] [address] Care Team Providers Care Wide Area Network Systems Administrator Name Role Phone Eron Holliday NP Primary Care Provider [phone] Encounter Details Date Type Department Care Team (Latest Contact Info) Description 02/11/2022 8:00 AM DRUPAL PROGRAMMER - 02/11/2022 11:59 PM DRUPAL PROGRAMMER Hospital Encounter [facility] [address] [place] [address] Discharge Disposition: Discharge to home or self care Social History Tobacco Use Types Packs/Day Years Used Date Smoking Tobacco: Former Cigarettes Q uit: 03/20/2020 Smokeless Tobacco: Never Comments No Sex and Gender Information Value Date Recorded Sex Assigned at Not on file Legal Sex Female 8:53 AM DRUPAL PROGRAMMER Gender Identity Female 12/26/2023 10:11 PM CDT [...] by mouth daily 12/05/2018 4 Dexcom G6 Sales Exhibitor miscIndications:T ype 2 diabetes mellitus with hyperglycemia, [...] MICROSCOPIC AND CULTURE Routine 02/11/2022 8:00 AM DRUPAL PROGRAMMER ALBUMIN CREATININE RATIO, URINE Routine 02/11/2022 8:00 AM DRUPAL PROGRAMMER URINALYSIS, MICROSCOPIC ONLY Routine 02/11/2022 8:00 AM DRUPAL PROGRAMMER documented in this encounter Results * Urinalysis, microscopic only (02/11/2022 8:00 AM DRUPAL PROGRAMMER) WBC, ur 0-5 0 - 5 /HPF [facility] RBC, ur 0-2 0 - 2 /HPF [facility] Epithelial cells, squamous, ur 1-5 0 - 5 /HPF [facility] Hyaline casts, ur 1-5 0 - 10 /LPF [facility] Culture Reflex Comment Reflex conditions for urine culture (WBC >10) not met. [facility] Urine 02/11/2022 8:00 AM DRUPAL PROGRAMMER 02/13/2022 6:08 PM DRUPAL PROGRAMMER us Notinfile Unknown LAB URINE ORDERABLES Final Res ult OLIVIA [address] [address] Department [place] [address] * (ABNORMAL) Albumin Creatinine Ratio, Urine (02/11/2022 8:00 AM DRUPAL PROGRAMMER) Albumin Ur 3,004.2 mg/L OLIVIA Comment: Interpretive Data No reference range established. Current interpretive data was last revised 2018. Creatinine Ur 136.5 mg/dL [facility]IA Comment: Interpretive Data No reference range established. Current interpretive data was last revised 2018. Albumin Creatinine Ratio, Ur 2,201(H) 1 - 29 mg/g [facility] Urine 02/11/2022 8:00 AM DRUPAL PROGRAMMER 02/13/2022 6:09 PM DRUPAL PROGRAMMER us Notinfile Unknown LAB URINE ORDERABLES Final Res ult Performing Organization Address [facility] Co de Phone Number OLIVIA KNAPP [address] [place] [address] * (ABNORMAL) Urinalysis reflex to microscopic and culture Urine (02/11/2022 8:00 AM DRUPAL PROGRAMMER) Color, ur Yellow Yellow [facility] Clarity, [...] performed. [facility] Urine 02/11/2022 8:00 AM DRUPAL PROGRAMMER 02/13/2022 6:08 PM DRUPAL PROGRAMMER Narrative [facility] - 02/13/2022 7:24 PM DRUPAL PROGRAMMER ?? Urine pH is affected by diet, medications, systemic acid-base disturbances, and renal tubular function. ??pH may affect urinary stone formation. ??For example, urine pH below 6.0 may help reduce the tendency for calcium phosphate stones and pH greater than 6.0 may reduce the tendency for uric acid stone formation. Source: [facility]. Last revised 03-06-2017 us Notinfile Unknown LAB MICROBIOLOGY - GENERAL ORD ERABLES Final Result Performing Organization Address [facility] Co de Phone Number OLIVIA KNAPP [address] [address] [place] [address] documented in this encounter Visit Diagnoses Not on filedocumented in this encounter Care Teams Wide Area Network Systems Administrator Relationship Specialty Start Date End Date Eron Holliday NP [address] [place], [place] [address] PCP - General 06/28/21 05/08/22 documented as of this encounter
--- OUTSIDE RECORDS SUMMARY | 2024-03-03 17:38 | XMS_ITS | Encounter Summary ---
Author Organization [facility] Address [address] [facility] [address] [place] [address] Care Team Providers Care Tyre Finisher And Examiner Name Role Phone Vilma Herrera Primary Care Provider [phone] Encounter Details Date Type Department Care Team (Late st Contact Info) Description 03/10/2020 Telephone [facility] of [address] [place] [address] Marialuisa Daniel, BAR FINISH OPERATOR [address] [address] Social History Tobacco Use Types Packs/Day Years Used Date Smoking Tobacco: Every Day Smokeless Tobacco: Never Comments Unknown Sex and Gender Information Value Date Recorded Sex Assigned at Not on file Legal Sex Female 8:53 AM WEDDING CAKE DESIGNER Gender Identity Female 12/26/2023 10:11 PM [...] not. Will increase to Trulcity 3mg weekly. ING CAKE DESIGNER documented in this encounter Plan of Treatment [...] documented as of this encounter Care Teams Tyre Finisher And Examiner Relationship Specialty [place] [address] [place] [address] PCP - General Physician Business Operations Manager 08/19/19 07/06/20 documented as of this encounter
--- OUTSIDE RECORDS SUMMARY | 2024-03-03 17:38 | XMS_ITS | Encounter Summary ---
Author Organization [facility] Address [address] [facility] [address] [place] [address] Care Team Providers Care Mounting Inspector Name Role Phone Eron Holliday NP Primary Care Provider [phone] Reason for Visit * Reason Onset Date Comments PA for Novolog, OZempic, Dexcom & Omnipod 2021 Encounter Details Date Type Department Care Team (Late st Contact Info) Description 09/25/2021 Telephone [facility] Diabetes Endocrine Care of [address] [place] [address] Marialuisa Daniel NP [address] [address] PA for Novolog, OZempic, Dexcom & Omnipod Social History Tobacco Use Types Packs/Day Years Used Date Smoking Tobacco: Former Cigarettes Q uit: 03/20/2020 Smokeless Tobacco: Never Comments No Sex and Gender Information Value Date Recorded Sex Assigned at Not on file Legal Sex Female 8:53 AM TERRA COTTA MOLD MAKER Gender Identity Female 12/26/2023 10:11 PM CDT Sexual Orientation Straight 12/26/2023 10 :11 PM CDT documented as of this encounter Miscellaneous Notes * Telephone Encounter - Ginny Molina MA - 09/25/2021 8:36 AM CDT Received approval for Dexcom transmitter and sensors. Approval faxed to [facility]. Patientnotified. * Telephone Encounter - Ginny Molina MA - 09/25/2021 7:44 AM CDT PA initiated through [employer] for Novolog, OZempic, Dexcom system and Omnipod. documented in this encounter Plan of Treatment Not on file documented as of this encounter Visit Diagnoses Not on filedocumented in this encounter Care Teams Mounting Inspector Relationship Specialty Start Date End Date Eron Holliday NP [address] [place] [address] PCP - General 06/28/21 05/08/22 documented as of this encounter
--- OUTSIDE RECORDS SUMMARY | 2024-03-03 17:38 | XMS_ITS | Encounter Summary ---
Author Organization [facility] Healthcare Address [address] [place] [address] Care Team Providers Care Cyanide Pot Tender Name Role Phone Marialuisa Daniel NP Primary Care Provider [phone] Encounter Details Date Type Department Care Team (Late st Contact Info) Description 12/23/2020 10:55 AM CDT Lab [address] [address] Leobardo Bhagat MD [address] [place] [address] Discharge Disposition: Discharge to home or self care Social History Tobacco Use Types Packs/Day Years Used Date Smoking Tobacco: Every Day Cigarettes Last attempted to quit: 03/20/2020 Smokeless Tobacco: Never Comments Unknown Sex and Gender Information Value Date Recorded Sex Assigned at Not on file Legal Sex Female 8:53 AM WEB MARKETING SPECIALIST Gender Identity Female 12/26/2023 10:11 [...] Final Re sult OLIVIA SANTOYO ([place]) 1 [facility] [place] [address] * Creatinine (12/23/2020 10:54 AM CDT) Creatinine 0.82 0.60 - 1.10 mg/dL OLIVIA SANTOYO ([place]) Urine/Blood 12/23/2020 10:5 4 AM CDT 12/23/2020 11:51 AM CDT us Leobardo Bhagat MD LAB BLOOD ORDERABLES Final Re sult Performing Organization Address City/[facility]/ZIP Co de Phone Number OLIVIA SANTOYO ([place]) 1 [facility] [place] [address] * (ABNORMAL) Protein, urine, 24 hour (12/23/2020 7:00 AM CDT) Protein, 24 hr, ur 2,160(H) 0 - 150 mg/24H [facility] ([place]) Urine/Blood 12/23/2020 7:00 AM CDT 12/23/2020 12:22 PM CDT us Leobardo Bhagat MD LAB URINE ORDERABLES Final Re sult Performing Organization Address [facility] Co de Phone Number OLIVIA SANTOYO ([place]) 1 [facility] [place] [address] * Volume and period, urine, 24 hour (12/23/2020 7:00 AM CDT) Volume, ur 1,600 mL [facility] ([place]) Period, Urine Collection 1,440 min OLIVIA SANTOYO ([place]) Urine/Blood 12/23/2020 7:00 AM CDT 12/23/2020 12:22 PM CDT us Leobardo Bhagat MD LAB URINE ORDERABLES Final Re sult OLIVIA SANTOYO ([place]) [address] Department [place] [address] * Creatinine clearance, urine, 24 hour (12/23/2020 7:00 AM CDT) Creatinine Clearance 125 60 - 130 mL/min [facility] ([place]) Creatinine, 24 hr, ur 1.5 0.6 - 1.5 g/24H OLIVIA SANTOYO ([place]) Urine/Blood 12/23/2020 7:00 AM CDT 12/23/2020 12:22 PM CDT us Leobardo Bhagat MD LAB URINE ORDERABLES Final Re sult OLIVIA SANTOYO ([place]) 1 [facility] [place] [address] documented in this encounter Visit Diagnoses Not on filedocumented in this encounter Care Teams Cyanide Pot Tender Relationship Specialty Start Date End Date Marialuisa Daniel NP PCP - General 07/07/20 06/27/21 documented as of this encounter
--- OUTSIDE RECORDS SUMMARY | 2024-03-03 17:38 | XMS_ITS | Encounter Summary ---
Author Organization [facility] Medical Group Address [address] [place] [address] Care Team Providers Care Tmr Teacher Name Role Phone Vilma Herrera Primary Care Provider [phone] Reason for Visit * Reason Comments Diabetes Type 2 Hyperglycemia Encounter Details Date Type Department Care Team (Late st Contact Info) Description 05/12/2020 10:30 AM CDT Office Visit [facility] of [address] [place] [address] Marialuisa Tyson, FIELD CROP GROWER [address] [id number] Type 2 diabetes mellitus with hyperglycemia, with long-term current use of insulin ([facility]) (Primary Dx); Insulin pump titration; Former cigarette smoker Social History Tobacco Use Types Packs/Day Years Used Date Smoking Tobacco: Every Day Smokeless Tobacco: Never Comments Unknown Sex and Gender Information Value Date Recorded Sex Assigned at Not on file Legal Sex Female 8:53 AM BEARINGIZER Gender Identity Female 12/26/2023 10:11 PM CDT [...] Patient Instructions * Patient Instructions* Marialuisa Tyson, FIELD CROP GROWER - 05/12/2020 10:30 AM CDT Thanks for coming in today. My medical officer, Allyssa, and I are thankful you have trusted us withyo care, and hope that you received EXCELLENT care today! Please do not hesitate to call if you have any questions or concerns at [phone]. You may receive a phone call or [...] each 0 ??? blood-glucose meter,continuous (Dexcom G6 Oracle Soa Architect) [facility] Device continuously 1 each 1 ??? [...] a day ??? lancets (ACCU-CHEK MULTICLIX LANCET) [facility] Check blood sugar four times a [...] with hyperglycemia, with long-term current use of insulin([facility]) 04/03/2017 Social History Tobacco Use ??? [...] hyperglycemia, with long-term current use of insulin ([facility]) (Primary) Assessment & Plan: This [...] exam. last dilated eye exam was [facility] Monofilament foot exam completed, protective senses intact, [...] gangrene, with long-term current use of insulin ([facility]) (HCC) (Deleted) This is a [...] eye exam. last dilated eye exam was 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 Personally reviewed A1c today- 8.4%, increased from 7.5%. Not at goal less than 7% Personally reviewed blood sugar 178 At goal 80-180 Medication- Continue Medtronic Insulin pump, continueTrulicity 3mg weekly . Denies side effects. Monitor blood sugar continuously with DexCom 6 sensor. Encouraged annual eye exam. last dilated eye exam was [facility] Monofilament foot exam completed, protective senses intact, [...] hyperglycemia, with long-term current use of insulin ([facility]) POCT HEMOGLOBIN A1C Routine 05/12/2020 2 :06 PM CDT Type 2 diabetes mellitus with hyperglycemia, with long-term current use of insulin ([facility]) documented in this encounter Results * POCT glucose (05/12/2020 2:07 PM CDT) Glucose Blood, POC 179 mg/dL Blood specimen (specimen) 05/12/2020 2:07 PM CDT us Marialuisa Tyson NP POINT OF CARE TEST ORDERABLES F inal Result * POCT hemoglobin A1c (05/12/2020 2:06 PM CDT) Hemoglobin A1C, POC 8.4 Blood specimen (specimen) 05/12/2020 2:06 PM CDT us Marialuisa Tyson FIELD CROP GROWER POINT OF CARE TEST ORDERABLES F inal [...] 04/25/2020 added in this encounter Care Teams Tmr Teacher Relationship Specialty [place] [address] [place] [address] PCP - General Physician Money Room Supervisor 08/19/19 07/06/20 documented as of this encounter
--- OUTSIDE RECORDS SUMMARY | 2024-03-03 17:38 | XMS_ITS | Encounter Summary ---
Author Organization [facility] Medical Group Address [address] [place] [address] Care Team Providers Care Onion Topper Name Role Phone Vilma Herrera Primary Care Provider [phone] Encounter Details Date Type Department Care Team (Late st Contact Info) Description 04/13/2020 Telephone [facility] [address] [address] [place] [address] Vilma Herrera PA [address] [place] [address] Social History Tobacco Use Types Packs/Day Years Used Date Smoking Tobacco: Every Day Smokeless Tobacco: Never Comments Unknown Sex and Gender Information Value Date Recorded Sex Assigned at Not on file Legal Sex Female 8:53 AM VULCAN CREWMEMBER Gender Identity Female 12/26/2023 10:11 PM CDT Sexual Orientation Straight 12/26/2023 10 :11 PM CDT documented as of this encounter Miscellaneous Notes * Telephone Encounter - Marialuisa Daniel NP - 04/13/2020 5:28 PM CST Returned call to patient. Increased basal Rates 0000--1.85, 0400-2.0, 1600-1.90 AN CREWMEMBER * Telephone Encounter - Allyssa Avina MA - 04/13/2020 1:57 PM CST Please advise, thank you AN CREWMEMBER * Telephone Encounter - Carrie Milian. - 04/13/2020 1:38 PM CST Pt states that Marialuisa was supposed to call her yesterday, and she still hasn't reard anything for her. It is regarding, her BS going up. She uploaded her readings from her insurlin pump, and Marialuisa was supposed to talk to her about adjusting the insulin pump. Please call patient today. AN CREWMEMBER documented in this encounter Plan of Treatment Not on file documented as of this encounter Visit Diagnoses Not on filedocumented in this encounter Care Teams Onion Topper Relationship Specialty [place] [address] [place] [address] PCP - General Physician Clinical Radiologist 08/19/19 07/06/20 documented as of this encounter
--- OUTSIDE RECORDS SUMMARY | 2024-03-03 17:38 | XMS_ITS | Encounter Summary ---
Author Organization [facility] Medical Group Address [address] [place] [address] Care Team Providers Care [employer] Assistant Manager Name Role Phone Vilma Herrera Primary Care Provider [phone] Encounter Details Date Type Department Care Team (Late st Contact Info) Description 03/09/2020 Telephone [facility] of [address] [place] [address] Marialuisa Daniel, SERVICE AND REPAIR SUPERVISOR [address] [address] Social History Tobacco Use Types Packs/Day Years Used Date Smoking Tobacco: Every Day Smokeless Tobacco: Never Comments Unknown Sex and Gender Information Value Date Recorded Sex Assigned at Not on file Legal Sex Female 8:53 AM OPERATING ROOM RN Gender Identity Female 12/26/2023 10:11 PM CDT Sexual Orientation Straight 12/26/2023 10 :11 PM CDT documented as of this encounter Miscellaneous Notes * Telephone Encounter - Corinna Wright MA - 03/09/2020 4:33 PM CST Please see message and send appropriate script ATING ROOM RN * Telephone Encounter - Jailyn Berry - 03/09/2020 4:22 PM CST [facility] states pt was expecting her trulicity rx to be a higher dose or strength, but the pharmhasn't received a new rx since 02/10. Please clarify [phone] ATING ROOM RN documented in this encounter Plan of Treatment Not on file documented as of this encounter Visit Diagnoses Not on filedocumented in this encounter Care Teams [employer] Assistant Manager Relationship Specialty Start Date End Date Vilma Herrera PA [address] [place] [address] PCP - General Physician First Sampler 08/19/19 07/06/20 documented as of this encounter
--- OUTSIDE RECORDS SUMMARY | 2024-03-03 17:38 | XMS_ITS | Encounter Summary ---
Author Organization [facility] Medical Group Address [address] [place] [address] Care Team Providers Care Sports Analyst Name Role Phone Marialuisa Tyson NP Primary Care Provider [phone] Reason for Visit * Reason Comments Diabetes Type 2 Encounter Details Date Type Department Care Team (Late st Contact Info) Description 06/01/2021 10:00 AM CDT Office Visit [facility] of [address] [place] [address] Marialuisa Tyson, BUTTER FAT TESTER [address] [address] Type 2 diabetes mellitus with hyperglycemia, with long-term current use of insulin ([facility]/HCC) (HCC) (Primary Dx); Morbid (severe) obesity due to excess calories ([facility]); Cigarette smoker; Insulin pump titration; Hyperlipidemia associated with type 2 diabetes mellitus (HCC) Social History Tobacco Use Types Packs/Day Years Used Date Smoking Tobacco: Every Day Cigarettes Last attempted to quit: 03/20/2020 Smokeless Tobacco: Never Comments Unknown Sex and Gender Information Value Date Recorded Sex Assigned at Not on file Legal Sex Female 8:53 AM VP HR DIVERSITY Gender Identity Female 12/26/2023 10:11 PM CDT [...] Patient Instructions * Patient Instructions* Marialuisa Tyson, BUTTER FAT TESTER - 06/01/2021 10:00 AM CDT Thanks for coming in today. I am thankful you have trusted me with your care, and hope that you received EXCELLENT care today! Please do not hesitate to call if you have any questions or concerns at [phone]. You may receive a phone call or [...] once per week. ??? See the Dietitian, Billiard Table Mechanic . Call Centralized Scheduling at [phone] to make an appointment. Exercise: ??? Try [...] each 0 ??? blood-glucose meter,continuous (Dexcom G6 Coupon Collection Clerk) misc 1 Device continuously 1 each 1 [...] with long-term current use of insulin([facility]) 04/03/2017 Social History Tobacco Use [...] hyperglycemia, with long-term current use of insulin ([facility]) ([facility]) (Primary) Assessment & Plan: This is a chronic condition which is??stable??improving hyperglycemia, not at goal. ?? Personally reviewed A1c today-7.8% Not at ??goal less than 7% Medication- Continue Omnipod pump?? Continue Ozempic 1mg weekly . Monitor blood sugar??continuously with DexCom 6 sensor. ?? Encouraged annual eye exam. ??last dilated eye exam was [facility]? Monofilament foot exam completed, protective senses intact Urine microalbumin/creatinine ratio -??865?Currently on Losartan 25 mg daily/ HCTZ, ?goal <30 . ??Seeing Dr. Bhagat Personally reviewed labs: BUN-??16, creatinine- 0.94?GFR- 69?Kidney function- abnormal B/P today-128/72, currently Losartan 25 mg daily??and HCTZ. ??At goal blood pressure is <140/90 Personally reviewed LDL -47, currently on??atorvastatin 80mg daily.?? No history of macrovascular disease - [place], [place].? Dexcom downloaded for??05/19/21 to 06/01/21 This device [...] eye exam. ??last dilated eye exam was [facility]? Monofilament foot exam completed, protective senses intact Urine microalbumin/creatinine ratio -??865?Currently on Losartan 25 mg daily/ HCTZ, ?goal <30 . ??Seeing Dr. Bhagat Personally reviewed labs: BUN-??16, creatinine- 0.94?GFR- 69?Kidney function- abnormal B/P today-128/72, currently Losartan 25 mg daily??and HCTZ. ??At goal blood pressure is <140/90 Personally reviewed LDL -47, currently on??atorvastatin 80mg daily.?? No history of macrovascular disease - [place], [place].? 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 ?? Personally reviewed A1c today-7.8% Not at ??goal less than 7% Medication- Continue Omnipod pump?? Continue Ozempic 1mg weekly . Monitor blood sugar??continuously with DexCom 6 sensor. ?? Encouraged annual eye exam. ??last dilated eye exam was [facility]? Monofilament foot exam completed, protective senses intact Urine microalbumin/creatinine ratio -??865?Currently on Losartan 25 mg daily/ HCTZ, ?goal <30 . ??Seeing Dr. Bhagat Personally reviewed labs: BUN-??16, creatinine- 0.94?GFR- 69?Kidney function- abnormal B/P today-128/72, currently Losartan 25 mg daily??and HCTZ. ??At goal blood pressure is <140/90 Personally reviewed LDL -47, currently on??atorvastatin 80mg daily.?? No history of macrovascular disease - [place], [place].? Dexcom downloaded for??05/19/21 to 06/01/21 This device [...] hyperglycemia, with long-term current use of insulin ([facility]) ([facility]) POCT GLUCOSE Routine 06/01/2021 10:33 AM CDT Type 2 diabetes mellitus with hyperglycemia, with long-term current use of insulin ([facility]) ([facility]) documented in this encounter Results * TSH reflex to free T4 (07/13/2021 8:13 AM CDT) TSH 0.96 0.30 - 4.20 mcIUnit/mL OLIVIA SANTOYO ([place]) Blood 07/13/2021 8:13 AM CDT 07/13/2021 10:14 AM CDT us Marialuisa Tyson NP LAB BLOOD ORDERABLES Final Resu lt OLIVIA [facility] ([place]) 1 [facility] Department [place] [address] * (ABNORMAL) Lipid panel (07/13/2021 8:13 AM [...] getting your blood drawn. us Marialuisa Tyson BUTTER FAT TESTER LAB BLOOD ORDERABLES Final Resu lt [facility] ([place]) 1 [facility] Department [place] [address] * Comprehensive metabolic panel (07/13/2021 8:13 AM [...] CDT 07/13/2021 10:14 AM CDT Marialuisa Tyson BUTTER FAT TESTER LAB BLOOD ORDERABLES Final Resu lt Performing Organization Address City/[facility] Co de Phone Number OLIVIA SANTOYO ([place]) 1 [place] [address] * (ABNORMAL) Albumin Creatinine Ratio, Urine (07/13/2021 8:13 AM CDT) Albumin Ur 5,983.8 mg/L [facility] AM H ([place]) Comment: Interpretive Data No reference range established. Current interpretive data was last revised 2018. Testing performed by: [facility], [address] [place] [address]., [id number] Creatinine Ur 194.6 mg/dL [facility] ([place]) Comment: Interpretive Data No reference range established. Current interpretive data was last revised 2018. Testing performed by: [facility], [address] [place] [address]., [id number] Albumin Creatinine Ratio, Ur 3,075(H) 1 - 29 mg/g [facility] ([place]) Comment:Testing performed by : [facility], [address] [place] [address]., [id number] Urine 07/13/2021 8:13 AM CDT 07/13/2021 2:51 PM CDT Marialuisa Tyson NP LAB URINE ORDERABLES Final Resu lt Performing Organization Address City/[facility] Co de Phone Number OLIVIA SANTOYO ([place]) 1 [facility] [place] [address] * POCT hemoglobin A1c (06/01/2021 10:33 AM CDT) Hemoglobin A1C, POC 7.8 Blood specimen (specimen) 06/01/2021 10:33 AM CDT Marialuisa Tyson BUTTER FAT TESTER POINT OF CARE TEST ORDERABLES F inal Result * POCT glucose (06/01/2021 10:33 AM CDT) Glucose Blood, POC 127 mg/dL Blood specimen (specimen) 06/01/2021 10:33 AM CDT Marialuisa Tyson BUTTER FAT TESTER POINT OF CARE TEST ORDERABLES F inal Result documented in this encounter Visit Diagnoses Diagnosis Type 2 diabetes mellitus with hyperglycemia, with long-term current use of insulin ([facility])- Primary Morbid (severe) obesity due to excess calories ([facility]) Cigarette smoker Tobacco use disorder Insulin pump titration Fitting and adjustment of insulin pump Hyperlipidemia associated with type 2 diabetes mellitus (HCC) Type 2 diabetes mellitus with hyperglycemia, with long-term current use of insulin ([facility]) documented in this encounter Discontinued [...] documented as of this encounter Care Teams Sports Analyst Relationship Specialty Start Date End Date Marialuisa Tyson NP PCP - General 07/07/20 06/27/21 documented as of this encounter
--- OUTSIDE RECORDS SUMMARY | 2024-03-03 17:38 | XMS_ITS | Encounter Summary ---
Author Organization [facility] Medical Group Address [address] [place] [address] Care Team Providers Care Data Processing Clerk Name Role Phone Eron Holliday NP Primary Care Provider [phone] Reason for Visit * Reason Onset Date Comments Test Results 07/13/2021 Encounter Details Date Type Department Care Team (Late st Contact Info) Description 07/13/2021 Telephone [facility] of [address] [place] [address] Marialuisa Daniel NP [address] [address] Test Results Social History Tobacco Use Types Packs/Day Years Used Date Smoking Tobacco: Every Day Cigarettes Last attempted to quit: 03/20/2020 Smokeless Tobacco: Never Comments No Sex and Gender Information Value Date Recorded Sex Assigned at Not on file Legal Sex Female 8:53 AM CORD MAKER Gender Identity Female 12/26/2023 10:11 PM [...] 12:58 PM CDT ----- Can we let sandy know her labs are good except the [...] on filedocumented in this encounter Care Teams Data Processing Clerk Relationship Specialty Start Date End Date Eron Holliday NP [address] [facility] [place] [address] PCP - General 06/28/21 05/08/22 documented as of this encounter
--- OUTSIDE RECORDS SUMMARY | 2024-03-03 17:38 | XMS_ITS | Encounter Summary ---
Author Organization [facility] Medical Group Address [address] [place] [address] Care Team Providers Care Tail Puller Name Role Phone Eron Holliday NP Primary Care Provider [phone] Reason for Visit * Reason Onset Date Comments PA for Dexcom sensors and Omnipod DASH pods 01/25 Encounter Details Date Type Department Care Team (Late st Contact Info) Description 02/12/2022 Telephone [facility] Medical Group Diabetes Endocrine Care of [address] [place] [address] Marialuisa Daniel NP [address] [facility] [address] [place] [address] PA for Dexcom sensors and Omnipod DASH pods Social History Tobacco Use Types Packs/Day Years Used Date Smoking Tobacco: Former Cigarettes Q uit: 03/20/2020 Smokeless Tobacco: Never Comments No Sex and Gender Information Value Date Recorded Sex Assigned at Not on file Legal Sex Female 8:53 AM TRANSPORTATION SALES CONSULTANT Gender Identity Female 12/26/2023 10:11 PM CDT Sexual Orientation Straight 12/26/2023 10 :11 PM CDT documented as of this encounter Miscellaneous Notes * Telephone Encounter - Ginny Molina MA - 02/21/2022 3:43 PM CST Received approval for Omnipod DASH pods 02/12/22 - 02/12/23 Auth# [id number] SPORTATION SALES CONSULTANT * Telephone Encounter - Ginny Molina MA - 02/12/2022 4:40 PM CST PA initiated through CM for Dexcom G6 sensors and Omnipod DASH pods. SPORTATION SALES CONSULTANT documented in this encounter Plan of Treatment Not on file documented as of this encounter Visit Diagnoses Not on filedocumented in this encounter Care Teams Tail Puller Relationship Specialty Start Date End Date Eron Holliday NP [address] [place] [address] PCP - General 06/28/21 05/08/22 documented as of this encounter
--- OUTSIDE RECORDS SUMMARY | 2024-03-03 17:38 | XMS_ITS | Encounter Summary ---
Author Organization [facility] Medical Group Address [address] [facility] [address] [place] [address] Care Team Providers Care General Merchandise Salesperson Name Role Phone Vilma Herrera Primary Care Provider [phone] Encounter Details Date Type Department Care Team (Late st Contact Info) Description 01/07/2020 Telephone [facility] of [address] [place] [address] Marialuisa Daniel, CHRISTOPHER [address] [address] Social History Tobacco Use Types Packs/Day Years Used Date Smoking Tobacco: Every Day Smokeless Tobacco: Never Comments Unknown Sex and Gender Information Value Date Recorded Sex Assigned at Not on file Legal Sex Female 8:53 AM POLYMER TESTER Gender Identity Female 12/26/2023 10:11 PM CDT Sexual Orientation Straight 12/26/2023 10 :11 PM CDT documented as of this encounter Miscellaneous Notes * Telephone Encounter - Marialuisa Daniel NP - 01/10/2020 4:49 PM CST I sent pump changes to Brenda Floyd. She will contact patient and make the adjustments. Marialuisa MER TESTER * Telephone Encounter - Corinna Wright MA - 01/07/2020 4:41 PM CST I have called patient. She is going to work on this and try again on Friday. Patient is also going to join My Chart and send us info that way MER TESTER * Telephone Encounter - Catherine Brown - 01/07/2020 3:13 PM CST Logged into Dexcom and pt is in the system but is not sharing. Pt needs to share before I can download without having the devise. MER TESTER * Telephone Encounter - Corinna Wright MA - 01/07/2020 2:10 PM CST Can you please download this. MER TESTER * Telephone Encounter - Eulalio Simental - 01/07/2020 1:16 PM CST Pt states she just uploaded all of her blood sugar readings into the computer system for Marialuisa to see. She states she has been having high readings in the mornings since being on the insulin pump. Please advise. MER TESTER documented in this encounter Plan of Treatment Not on file documented as of this encounter Visit Diagnoses Not on filedocumented in this encounter Care Teams General Merchandise Salesperson Relationship Specialty Start Date End Date Vilma Herrera PA [address] [place] [address] PCP - General Physician Rand Butting Machine Operator 08/19/19 07/06/20 documented as of this encounter
--- OUTSIDE RECORDS SUMMARY | 2024-03-03 17:38 | XMS_ITS | Encounter Summary ---
Author Organization [facility] Medical [facility] Address [address] [facility] [address] [place] [address] Care Team Providers Care Evaporator Supervisor Name Role Phone Vilma Herrera Primary Care Provider Reason for Visit * Reason Comments Diabetes Type 2 Hyperglycemia Encounter Details Date Type Department Care Team (Late st Contact Info) Description 02/11/2020 10:30 AM RESPONDER Office Visit [facility] of [address] [place] [address] Marialuisa Daniel, MANAGER VOICE [address] [address] Type 2 diabetes mellitus with hyperglycemia, with long-term current use of insulin ([facility]) (Primary Dx); Insulin pump titration; Tobacco abuse Social History Tobacco Use Types Packs/Day Years Used Date Smoking Tobacco: Every Day Smokeless Tobacco: Never Comments Unknown Sex and Gender Information Value Date Recorded Sex Assigned at Not on file Legal Sex Female 8:53 AM RESPONDER Gender Identity Female 12/26/2023 10:11 PM CDT Sexual Orientation Straight 12/26/2023 10 :11 PM CDT documented as of this encounter Last Filed Vital Signs Vital Sign Reading Time Taken Comments Blood Pressure 110/72 02/11/2020 10:38 AM RESPONDER Pulse - - Temperature - - Respiratory Rate - - Oxygen Saturation - - Inhaled Oxygen Concentration - - Weight 98.4 kg (217 lb) 02/11/2020 10:38 AM RESPONDER Height 165.1 cm (5' 5 ) 02/11/2020 10:38 AM RESPONDER Body Mass Index 36.11 02/11/2020 10:38 AM RESPONDER documented in this encounter Patient Instructions * Patient Instructions* Marialuisa Daniel, CHRISTOPHER - 02/11/2020 10:30 AM RESPONDER Thanks for coming in today. My medical physicist, Allyssa, and I are thankful you have trusted us withyour care, and hope that you received EXCELLENT care today! Please do not hesitate to call if you have any questions or concerns at [phone]. You may receive a phone call or [...] a source of fast-acting carbohydrate with you. ONDER documented in this encounter Ordered Prescriptions Prescription [...] each 0 ??? blood-glucose meter,continuous (Dexcom G6 Plant Protection Superintendent) misc 1 Device continuously 1 each 1 ??? blood-glucose sensor ([employer] G6 Sensor) device 1 Device continuously 1 Device 3 ??? blood-glucose transmitter ([employer] G6 Transmitter) device 1 Device continuously USE [...] a day ??? lancets (ACCU-CHEK MULTICLIX LANCET) [facility] Check blood sugar four times a day [...] with long-term current use of insulin([facility]) 04/03/2017 Social History Tobacco Use [...] long-term current use of insulin ([facility]) (Primary) Assessment & Plan: This [...] eye exam. last dilated eye exam was [facility] Monofilament foot exam completed, protective senses intact, [...] goal. Download reviewed. Type of insulin pump- Asantae 670G with DexCom 6 sensor Pump settings [...] Follow up 3 months Marialuisa Daniel NP ONDER documented in this encounter Miscellaneous Notes * Assessment & Plan Note - Marialuisa Daniel NP - 02/11/2020 1:20 PM CSTAssociated Problem(s): Cigarette smoker This is a chronic condition Encouraged to stop smoking ONDER * Assessment & Plan Note - Marialuisa Daniel NP - 02/11/2020 1:16 PM CSTAssociated Problem(s): Omnipod Dash Insulin pump in place This is a chronic condition which is stable, but not at goal. Download reviewed. Type of insulin pump- AllClear IDs 670G with DexCom 6 sensor Pump settings : Basal increased to 0000-1.55, 0400-1.70, 1600-1.60 IC -6 ISF-20 Active insulin time 4hrs. TARGET GLUCOSE 110-120 Avg BG 161 BG readings -1973 Avg daily carbs 260 plus or minus 96 Carb/bolus insulin-5.3 Avg Total daily insulin- 87 plus or minus 17.1 Avg daily basal - 37.5 (43%) Avg daily bolus - 49.5 (57%) . ONDER * Assessment & Plan Note - Marialuisa Daniel NP - 02/11/2020 1:03 PM CSTAssociated Problem(s): Type 2 diabetes mellitus with diabetic peripheral angiopathy without gangrene, with long-term current use of insulin ([facility]) (HCC) (Deleted) This is a [...] eye exam. last dilated eye exam was [facility] Monofilament foot exam completed, protective [...] (>180) Seriously high->2% 97.9% time CGM active. ONDER ONDER ONDER ONDER * Assessment & Plan Note - Marialuisa Daniel NP - 02/11/2020 10:30 AM RESPONDER Associated Problem(s): Type 2 diabetes mellitus with hypoglycemia without coma, with long-term current use of insulin (HCC) >>ASSESSMENT AND PLAN FOR TYPE 2 DIABETES MELLITUS WITH DIABETIC PERIPHERAL ANGIOPATHY WITHOUT GANGRENE, WITH LONG-TERM CURRENT USE OF INSULIN ([facility]/HCC) (HCC) WRITTEN ON 02/11/2020 1:21 PM BY JAH, MARIALUISA K., MANAGER VOICE This is a chronic condition which is [...] eye exam. last dilated eye exam was [facility] Monofilament foot exam completed, protective [...] HEMOGLOBIN A1C Routine 02/11/2020 1 1:15 AM RESPONDER Type 2 diabetes mellitus with hyperglycemia, with long-term current use of insulin ([facility]) documented in this encounter Results * POCT hemoglobin A1c (02/11/2020 11:15 AM RESPONDER) Hemoglobin A1C, POC 7.5 Blood specimen (specimen) 02/11/2020 11:15 AM RESPONDER us Marialuisa Daniel MANAGER VOICE POINT OF CARE TEST ORDERABLES F inal [...] documented as of this encounter Care Teams Evaporator Supervisor Relationship Specialty Start Date End Date Vilma Herrera PA [address] [place] [address] PCP - General Physician Truck Shop Supervisor 08/19/19 07/06/20 documented as of this encounter
--- OUTSIDE RECORDS SUMMARY | 2024-03-03 17:38 | XMS_ITS | Encounter Summary ---
Author Organization [facility] Healthcare Address [address] [place] [address] Care Team Providers Care Skip Hoist Operator Name Role Phone Eron Holliday NP Primary Care Provider [phone] Encounter Details Date Type Department Care Team (Late st Contact Info) Description 09/19/2021 1:30 PM CDT Lab [address] [address] Leobardo Bhagat MD [address] [place], [place] [id number] Discharge Disposition: Discharge to home or self care Social History Tobacco Use Types Packs/Day Years Used Date Smoking Tobacco: Former Cigarettes Q uit: 03/20/2020 Smokeless Tobacco: Never Comments No Sex and Gender Information Value Date Recorded Sex Assigned at Not on file Legal Sex Female 8:53 AM FILTER TANK TENDER HELPER Gender Identity Female 12/26/2023 10:11 PM [...] Protein, ur, quant >600.0 mg/dL [facility] ([place]) Comment: Reviewed. Interpretive Data No reference range established. Current interpretive data was last revised 2018. Creatinine Ur 172.2 mg/dL [facility] ([place]) Comment: Interpretive Data No reference range established. Current interpretive data was last revised 2018. Protein/creatinin e ratio >3,484.3( H) 0.0 - 180.0 mg/g CR [facility] ([place]) Urine 09/19/2021 1:40 PM CDT 09/19/2021 2:31 PM CDT us Leobardo Bhagat MD LAB URINE ORDERABLES Final Re sult [facility] ([place]) 1 [facility] Department [place] [address] * eGFR (09/19/2021 1:30 PM CDT) Pathologist [facility] eGFR 67 mL/min/1. 73 m2 [facility] ([place]) Comment: Interpretive Data Reference Interval Normal ?>/= [...] MD LAB BLOOD ORDERABLES Final Re sult [facility] ([place]) [address] [facility] Department [place] [address] * Differential, auto (09/19/2021 1:30 [...] Final Re sult [facility] ([place]) 1 [facility] Department [place] [address] * Renal function panel (09/19/2021 1:30 PM [...] Phosphorus, pl 3.3 2.3 - 4.5 mg/dL [facility] ([place]) Albumin 4.2 3.5 - 5.0 g/dL [facility] ([place]) Blood 09/19/2021 1:30 PM CDT 09/19/2021 2:27 PM CDT us Leobardo Bhagat MD LAB BLOOD ORDERABLES Final Re sult [facility] ([place]) [address] [facility] Department [place] [address] * CBC with auto differential (09/19/2021 1:30 [...] Final Re sult [facility] ([place]) [address] [facility] Department [place] [address] documented in this encounter Visit Diagnoses Not on filedocumented in this encounter Care Teams Skip Hoist Operator Relationship Specialty Start Date End Date Eron Holliday NP [address] [place] [address] [place] [address] PCP - General 06/28/21 05/08/22 documented as of this encounter
--- OUTSIDE RECORDS SUMMARY | 2024-03-03 17:38 | XMS_ITS | Encounter Summary ---
Author Organization [facility] Healthcare Address [address] [place] [address] Care Team Providers Care Cleaner Housekeeping Name Role Phone Eron Holliday NP Primary Care Provider [phone] Encounter Details Date Type Department Care Team (Late st Contact Info) Description 07/13/2021 8:15 AM CDT [facility] [address] [place], [place] Lorne Mcginnis MD [address] [place] [address] [address] [place] [address] Marialuisa Daniel NP [address] [facility] [address] [place] [address] Type 2 diabetes mellitus with hyperglycemia, with long-term current use of insulin ([facility]/HCC) ([facility]) Discharge Disposition: Discharge to home or self care Social History Tobacco Use Types Packs/Day Years Used Date Smoking Tobacco: Every Day Cigarettes Last attempted to quit: 03/20/2020 Smokeless Tobacco: Never Comments No Sex and Gender Information Value Date Recorded Sex Assigned at Not on file Legal Sex Female 8:53 AM MANHOLE BUILDER Gender Identity Female 12/26/2023 10:11 PM [...] of insulin ([facility]/HCC) ([facility]) THYROID FUNCTION CASCADE Routine 07/13/2021 8:13 AM CDT Type 2 diabetes mellitus with hyperglycemia, with long-term current use of insulin (CMS/HCC) ([facility]) ALBUMIN CREATININE RATIO, URINE Routine 07/13/2021 8:13 AM CDT Type 2 diabetes mellitus with hyperglycemia, with long-term current use of insulin (CMS/HCC) ([facility]) LIPID PANEL Routine 07/13/2021 8:13 AM CDT Type 2 diabetes mellitus with hyperglycemia, with long-term current use of insulin (CMS/[facility]) ([facility]) COMPREHENSIVE METABOLIC PANEL Routine 07/13/2021 8:13 AM CDT Type 2 diabetes mellitus with hyperglycemia, with long-term current use of insulin ([facility]) ([facility]) documented in this encounter Results * eGFR [...] ORDERABLES Final Resu lt Performing Organization Address City[facility] Co de Phone Number [facility] ([place]) 1 [facility] [place] [address] * (ABNORMAL) Albumin Creatinine Ratio, Urine (07/13/2021 8:13 AM CDT) Albumin Ur 5,983.8 mg/L [facility] ([place]) Comment: Interpretive Data No reference range established. Current interpretive data was last revised 2018. Testing performed by: [address] [address] Creatinine Ur 194.6 mg/dL [facility] ([place]) Comment: Interpretive Data No reference range established. Current interpretive data was last revised 2018. Testing performed by: [facility], [address] [place] [address]., [address] Albumin Creatinine Ratio, Ur 3,075(H) 1 - 29 mg/g [facility] ([place]) Comment:Testing performed by : [address] [address] Urine 07/13/2021 8:13 AM CDT 07/13/2021 2:51 PM CDT us Marialuisa Daniel NP LAB URINE ORDERABLES Final Resu lt Performing Organization Address City/[facility]/ZIP Co de Phone Number [facility] S[facility] ([place]) [address] Department [place] [address] * Comprehensive metabolic panel (07/13/2021 8:13 AM CDT) Sodium 139 135 - 145 mmol/L [facility] ([place]) Potassium, pl 4.9 3.3 - 4.9 mmol/L [facility] ([place]) Chloride 104 97 - 110 mmol/L [facility] ([place]) CO2 25 22 - 32 mmol/L [facility] ([place]) Anion gap 10 2 - 15 mmol/L [...] Final Resu lt [facility] ([place]) 1 [facility] Department [place] [address] * (ABNORMAL) Lipid panel (07/13/2021 8:13 AM [...] ORDERABLES Final Resu lt Performing Organization Address City/[facility]/ZIP Co de Phone Number [facility] ([place]) 1 [facility] [place] [address] * TSH reflex to free T4 (07/13/2021 8:13 AM CDT) TSH 0.96 0.30 - 4.20 mcIUnit/mL [facility]NA[facility] ([place]) Blood 07/13/2021 8:13 AM CDT 07/13/2021 10:14 AM CDT Marialuisa Daniel NP LAB BLOOD ORDERABLES Final Resu lt [facility] ([place]) 1 [facility] [place] [address] documented in this encounter Visit Diagnoses Diagnosis Type 2 diabetes mellitus with hyperglycemia, with long-term current use of insulin (HCC) documented in this encounter Care Teams Cleaner Housekeeping Relationship Specialty Start Date End Date Eron Holliday NP [address] [facility] [address] PCP - General 06/28/21 05/08/22 documented as of this encounter
--- OUTSIDE RECORDS SUMMARY | 2024-03-03 17:38 | XMS_ITS | Encounter Summary ---
Author Organization [facility] Medical Group Address [address] [facility] [address] [place] [address] Care Team Providers Care Lockstitch Coat Joiner Name Role Phone Vilma Herrera Primary Care Provider [phone] Encounter Details Date Type Department Care Team (Late st Contact Info) Description 03/07/2020 Telephone [facility] of [address] [place] [address] Lorne Mcginnis MD [address] [place] [address] [address] [place] [address] Social History Tobacco Use Types Packs/Day Years Used Date Smoking Tobacco: Every Day Smokeless Tobacco: Never Comments Unknown Sex and Gender Information Value Date Recorded Sex Assigned at Not on file Legal Sex Female 8:53 AM CAMP DINING ROOM ATTENDANT Gender Identity Female 12/26/2023 10:11 PM CDT Sexual Orientation Straight 12/26/2023 10 :11 PM CDT documented as of this encounter Miscellaneous Notes * Telephone Encounter - Armida Saeed - 03/07/2020 2:46 PM CST Opened in error DINING ROOM ATTENDANT documented in this encounter Plan of Treatment Not on file documented as of this encounter Visit Diagnoses Not on filedocumented in this encounter Care Teams Lockstitch Coat Joiner Relationship Specialty Start Date End Date Vilma Herrera PA [address] [place] [address] PCP - General Physician Rat Trapper 08/19/19 07/06/20 documented as of this encounter
--- OUTSIDE RECORDS SUMMARY | 2024-03-03 17:38 | XMS_ITS | Encounter Summary ---
Author Organization [facility] Medical Group Address [address] [facility] [address] [place] [address] Care Team Providers Care Trouble Tracer Name Role Phone Eron Holliday NP Primary Care Provider [phone] Reason for Visit * Reason Onset Date Comments medication changes 09/26/2021 Encounter Details Date Type Department Care Team (Late st Contact Info) Description 09/26/2021 Telephone [facility] Medical Group Diabetes Endocrine Care of [address] [place] [address] Marialuisa Daniel NP [address] [address] medication changes Social History Tobacco Use Types Packs/Day Years Used Date Smoking Tobacco: Former Cigarettes Q uit: 03/20/2020 Smokeless Tobacco: Never Comments No Sex and Gender Information Value Date Recorded Sex Assigned at Not on file Legal Sex Female 8:53 AM PRINT MACHINE OPERATOR Gender Identity Female 12/26/2023 10:11 [...] on filedocumented in this encounter Care Teams Trouble Tracer Relationship Specialty Start Date End Date Eron Holliday NP [address] [facility] [place] [address] PCP - General 06/28/21 05/08/22 documented as of this encounter
--- OUTSIDE RECORDS SUMMARY | 2024-03-03 17:38 | XMS_ITS | Encounter Summary ---
Author Organization [facility] Medical Group Address [address] [facility] [address] [place] [address] Care Team Providers Care Supervisor Home Energy Consultant Name Role Phone Marialuisa Daniel NP Primary Care Provider [phone] Encounter Details Date Type Department Care Team (Late st Contact Info) Description 08/10/2020 Telephone [facility] [address] [place] [address] [address] [place] [address] Marialuisa Daniel NP [address] [address] Social History Tobacco Use Types Packs/Day Years Used Date Smoking Tobacco: Every Day Smokeless Tobacco: Never Comments Unknown Sex and Gender Information Value Date Recorded Sex Assigned at Not on file Legal Sex Female 8:53 AM BUSINESS SYSTEM MANAGER Gender Identity Female 12/26/2023 10:11 PM [...] on filedocumented in this encounter Care Teams Supervisor Home Energy Consultant Relationship Specialty Start Date End Date Marialuisa Daniel NP PCP - General 07/07/20 06/27/21 documented as of this encounter
--- OUTSIDE RECORDS SUMMARY | 2024-03-03 17:38 | XMS_ITS | Encounter Summary ---
Author Organization [facility] Medical Group Address [address] [facility] [address] [place] [address] Care Team Providers Care Address Change Clerk Name Role Phone Marialuisa Tyson NP Primary Care Provider [phone] Reason for Visit * Reason Comments Diabetes Type 2 Encounter Details Date Type Department Care Team (Late st Contact Info) Description 08/18/2020 10:30 AM CDT Office Visit [facility] of [address] [place] [address] Marialuisa Tyson, FEDERAL DISTRICT CLERK [address] [address] Type 2 diabetes mellitus with [...] on file Legal Sex Female 8:53 AM MONOGRAM TECHNICIAN Gender Identity Female 12/26/2023 10:11 PM [...] Patient Instructions * Patient Instructions* Marialuisa Tyson, FEDERAL DISTRICT CLERK - 08/18/2020 10:30 AM CDT Thanks for coming in today. My biomedical engineering internship, Allyssa, and I are thankful you have trusted us withyo care, and hope that you received EXCELLENT care today! Please do not hesitate to call if you have any questions or concerns at [phone]. You may receive a phone call or [...] once per week. ??? See the Dietitian, Club Concierge . Call Centralized Scheduling at [phone] to make an appointment. Exercise: ??? Try [...] each 0 ??? blood-glucose meter,continuous (Dexcom G6 Cryptologic Technician Technical) misc 1 Device continuously 1 each 1 [...] a day ??? lancets (ACCU-CHEK MULTICLIX LANCET) [facility] Check blood sugar four times a day [...] with hyperglycemia, with long-term current use of insulin([facility]) 04/03/2017 Social History Tobacco Use ??? [...] current use of insulin ([facility]) (Primary) Assessment & Plan: This is [...] eye exam. ??last dilated eye exam was [facility]? Monofilament foot exam completed, protective senses intact [...] No history of macrovascular disease - [place], [place].? Dexcom downloaded for??08/05/20 to 08/18/20 This device [...] current use of insulin ([facility]) Assessment & Plan: This is a chronic condition which is stable Urine microalbumin/creatinine ratio -??865?-on Losartan 25 mg daily, HCTZ, ?goal <30 . ??Seeing Dr. Bhagat (station inspector) Personally reviewed labs: (06/14)BUN-??16, creatinine- 0.94, GFR-69 [...] HCTZ, ?goal <30 . ??Seeing Dr. Bhagat (station inspector) Personally reviewed labs: (06/14)BUN-??16, creatinine- 0.94, GFR-69 [...] current use of insulin ([facility]) (HCC) (Deleted) This is a chronic [...] eye exam. ??last dilated eye exam was [facility]? Monofilament foot exam completed, protective [...] No history of macrovascular disease - [place], [place].? 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 ??last dilated eye exam was [facility]? Monofilament foot exam completed, protective [...] No history of macrovascular disease - [place], [place].? Dexcom downloaded for??08/05/20 to 08/18/20 This device [...] current use of insulin ([facility]) POCT MICROALBUMIN Routine 08/18/2020 11: 27 AM CDT Type 2 diabetes mellitus with hyperglycemia, with long-term current use of insulin ([facility]) POCT HEMOGLOBIN A1C Routine 08/18/2020 1 1:25 AM CDT Type 2 diabetes mellitus with hyperglycemia, with long-term current use of insulin ([facility]) documented in this encounter Results * [...] documented as of this encounter Care Teams Address Change Clerk Relationship Specialty Start Date End Date Marialuisa Tyson NP PCP - General 07/07/20 06/27/21 documented as of this encounter
--- OUTSIDE RECORDS SUMMARY | 2024-03-03 17:38 | XMS_ITS | Encounter Summary ---
Author Organization [facility] Address [address] [facility] [address] [place] [address] Care Team Providers Care Secondary History Teacher Name Role Phone Vilma Herrera Primary Care Provider Encounter Details Date Type Department Care Team (Late st Contact Info) Description 02/14/2020 Telephone [facility] of [address] [place] [address] Lorne Mcginnis MD [address] [place] [address] [address] [place] [address] Social History Tobacco Use Types Packs/Day Years Used Date Smoking Tobacco: Every Day Smokeless Tobacco: Never Comments Unknown Sex and Gender Information Value Date Recorded Sex Assigned at Not on file Legal Sex Female 8:53 AM MANAGER MARKETING Gender Identity Female 12/26/2023 10:11 PM CDT Sexual Orientation Straight 12/26/2023 10 :11 PM CDT documented as of this encounter Miscellaneous Notes * Telephone Encounter - Gina Bermudez - 02/15/2020 8:49 AM CST Pt aware GER MARKETING * Telephone Encounter - Corinna Wright MA - 02/15/2020 8:47 AM CST LMOVM GER MARKETING * Telephone Encounter - Marialuisa Daniel NP - 02/15/2020 8:01 AM CST Yes, Trulicity is in a different concentration. It is 1.5mg/0.5ml. Please let Sandy know. 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 Thanks Marialuisa GER MARKETING * Telephone Encounter - Corinna Wright MA - 02/14/2020 4:40 PM CST Please see patient message and advise GER MARKETING * Telephone Encounter - Armida Saeed - 02/14/2020 4:29 PM CST Marialuisa - Pt says the directions on her Trulicity are different than what Marialuisa told her to do. She thought it was 1 mL per wk but the rx label says .5 once a week. Please clarify for the pt. Please advise. GER MARKETING documented in this encounter Plan of Treatment Not on file documented as of this encounter Visit Diagnoses Not on filedocumented in this encounter Care Teams Secondary History Teacher Relationship Specialty Start Date End Date Vilma Herrera PA [address] [place] [address] PCP - General Physician Risk Consultant 08/19/19 07/06/20 documented as of this encounter
--- OUTSIDE RECORDS SUMMARY | 2024-03-03 17:38 | XMS_ITS | Encounter Summary ---
Author Organization [facility] Address [address] [facility] [address] [place] [address] Care Team Providers Care Harp Maker Name Role Phone Vilma Herrera Primary Care Provider [phone] Encounter Details Date Type Department Care Team (Late st Contact Info) Description 06/02/2020 Telephone [facility] Care of [address] [place] [address] Marialuisa Daniel, CHRISTOPHER [address] [address] Social History Tobacco Use Types Packs/Day Years Used Date Smoking Tobacco: Every Day Smokeless Tobacco: Never Comments Unknown Sex and Gender Information Value Date Recorded Sex Assigned at Not on file Legal Sex Female 8:53 AM FX ARTIST Gender Identity Female 12/26/2023 10:11 PM [...] did not receive it, please call Lilly. [phone] She is aware Marialuisa is out of the office until next week documented in this encounter Plan of Treatment Not on file documented as of this encounter Visit Diagnoses Not on filedocumented in this encounter Care Teams Harp Maker Relationship Specialty [place] [address] [place] [address] PCP - General Physician Tracer Bullet Section Supervisor 08/19/19 07/06/20 documented as of this encounter
--- OUTSIDE RECORDS SUMMARY | 2024-03-03 17:38 | XMS_ITS | Encounter Summary ---
Author Organization [facility] Address [address] [place] [address] Care Team Providers Care Stadium Manager Name Role Phone Eron Holliday NP Primary Care Provider [phone] Encounter Details Date Type Department Care Team (Latest Contact Info) Description 02/13/2022 8:00 AM ARTILLERY OFFICER - 02/13/2022 11:59 PM ARTILLERY OFFICER Hospital Encounter [facility] [address] [place] [address] Discharge Disposition: Discharge to home or self care Social History Tobacco Use Types Packs/Day Years Used Date Smoking Tobacco: Former Cigarettes Q uit: 03/20/2020 Smokeless Tobacco: Never Comments No Sex and Gender Information Value Date Recorded Sex Assigned at Not on file Legal Sex Female 8:53 AM ARTILLERY OFFICER Gender Identity Female 12/26/2023 10:11 PM [...] by mouth daily 12/05/2018 4 Dexcom G6 Onion Farmer miscIndications:T ype 2 diabetes mellitus with hyperglycemia, [...] MICROSCOPIC AND CULTURE Routine 02/13/2022 8:00 AM ARTILLERY OFFICER ALBUMIN CREATININE RATIO, URINE Routine 02/13/2022 8:00 AM ARTILLERY OFFICER URINALYSIS, MICROSCOPIC ONLY Routine 02/13/2022 8:00 AM ARTILLERY OFFICER documented in this encounter Results * Urinalysis, microscopic only (02/13/2022 8:00 AM ARTILLERY OFFICER) WBC, ur 0-5 0 - 5 /HPF [facility] RBC, ur 0-2 0 - 2 /HPF [facility] Epithelial cells, squamous, ur 1-5 0 - 5 /HPF [facility] Culture Reflex Comment Reflex conditions for urine culture (WBC >10) not met. [facility] Urine 02/13/2022 8:00 AM ARTILLERY OFFICER 02/13/2022 6:19 PM ARTILLERY OFFICER us Christophe Tan MD LAB URINE ORDERABLES Final Resu lt [facility] [address] [address] Department [place] [address] * (ABNORMAL) Albumin Creatinine Ratio, Urine (02/13/2022 8:00 AM ARTILLERY OFFICER) Albumin Ur 1,183.4 mg/L OLIVIA Comment: Interpretive Data No reference range established. Current interpretive data was last revised 2018. Creatinine Ur 53.3 mg/dL [facility]IVIA Comment: Interpretive Data No reference range established. Current interpretive data was last revised 2018. Albumin Creatinine Ratio, Ur 2,220(H) 1 - 29 mg/g [facility] Urine 02/13/2022 8:00 AM ARTILLERY OFFICER 02/13/2022 6:19 PM ARTILLERY OFFICER us Christophe Tan MD LAB URINE ORDERABLES Final Resu lt Performing Organization Address [facility] de Phone Number CERSTEFFANY [address] [address] Department [place] [address] * (ABNORMAL) Urinalysis reflex to microscopic and culture Urine (02/13/2022 8:00 AM ARTILLERY OFFICER) Color, ur Yellow Yellow [facility] Clarity, [...] performed. [facility] Urine 02/13/2022 8:00 AM ARTILLERY OFFICER 02/13/2022 6:19 PM ARTILLERY OFFICER Narrative [facility] - 02/13/2022 7:26 PM ARTILLERY OFFICER ?? Urine pH is affected by diet, medications, systemic acid-base disturbances, and renal tubular function. ??pH may affect urinary stone formation. ??For example, urine pH below 6.0 may help reduce the tendency for calcium phosphate stones and pH greater than 6.0 may reduce the tendency for uric acid stone formation. Source: MC2. Last revised 03-06-2017 us Christophe Tan MD LAB MICROBIOLOGY - GENERAL [place] Edited Result - Final Performing Organization Address [facility] Co de Phone Number OLIVIA [address] [address] [place] [address] documented in this encounter Visit Diagnoses Not on filedocumented in this encounter Care Teams Stadium Manager Relationship Specialty Start Date End Date rEon Holliday, CHRISTOPHER [address] [place] [address] PCP - General 06/28/21 05/08/22 documented as of this encounter
--- OUTSIDE RECORDS SUMMARY | 2024-03-03 17:38 | XMS_ITS | Encounter Summary ---
Author Organization [facility] Address [address] [facility] [address] [place] [address] Care Team Providers Care Cad Intern Name Role Phone Eron Holliday NP Primary Care Provider [phone] Reason for Visit * Reason Comments Diabetes Type 2 Encounter Details Date Type Department Care Team (Late st Contact Info) Description 09/13/2021 8:30 AM CDT Office Visit [facility] Diabetes Endocrine Care of [address] [place] [address] Marialuisa Tyson, CHRISTOPHER [address] [facility] [address] [place] [address] Type 2 diabetes mellitus with hyperglycemia, with long-term current use of insulin ([facility]) (HCC) (Primary Dx); Type 2 diabetes mellitus [...] on file Legal Sex Female 8:53 AM ATMOSPHERIC DRIER TENDER Gender Identity Female 12/26/2023 10:11 PM [...] you have any questions or concerns at [phone]. You may receive a phone call or [...] than once per week. See the Dietitian, Oral Surgeon . Call Centralized Scheduling at [phone] to make an appointment. Exercise: Try moving [...] last office visit. Today's visit is to [employer] and discuss future plan. ?? Diabetes regimen: [...] mg by mouth daily ??? Dexcom G6 Wood Last Maker misc USE TO TEST BLOOD SUGAR DIRECTED [...] with hyperglycemia, with long-term current use of insulin([facility]) 04/03/2017 Social History Tobacco Use [...] insulin ([facility]) ([facility]) (Primary) Assessment & Plan: This is a chronic condition which is??slightly??improving hyperglycemia, not at goal. ?? Personally reviewed A1c today-7.8% Not at ??goal less than 7% Medication- Continue Omnipod pump?? Increase Ozempic 2mg weekly- to promote weight loss Monitor blood sugar??continuously with DexCom 6 sensor. ?? Encouraged annual eye exam. ??last dilated eye exam was [facility]? Monofilament foot exam completed, protective senses intact [...] No history of macrovascular disease - CVA, DC.? Dexcom downloaded for??08/31/21 to 09/13/21 This device was placed for monitor and treatment of blood sugar. Interpretation of data- improved Hyperglycemia with weight loss. In target 76% of time. Orders: - POCT glucose - POCT hemoglobin A1c Type 2 diabetes mellitus with microalbuminuria, with long-term current use of insulin ([facility]) ([facility]) Assessment & Plan: This is [...] insulin ([facility]) ([facility]) (Deleted) This is a chronic condition which is??slightly??improving hyperglycemia, not at goal. ?? Personally reviewed A1c today-7.8% Not at ??goal less than 7% Medication- Continue Omnipod pump?? Increase Ozempic 2mg weekly- to promote weight loss Monitor blood sugar??continuously with DexCom 6 sensor. ?? Encouraged annual eye exam. ??last dilated eye exam was [facility]? Monofilament foot exam completed, protective [...] No history of macrovascular disease - CVA, DC.? Dexcom downloaded for??08/31/21 to 09/13/21 This device [...] INSULIN ([facility]) (HCC) WRITTEN ON 09/13/2021 6:44 PM BY MARIALUISA TYSON NP This is a chronic condition which is??slightly??improving hyperglycemia, not at goal. ?? Personally reviewed A1c today-7.8% Not at ??goal less than 7% Medication- Continue Omnipod pump?? Increase Ozempic 2mg weekly- to promote weight loss Monitor blood sugar??continuously with DexCom 6 sensor. ?? Encouraged annual eye exam. ??last dilated eye exam was [facility]? Monofilament foot exam completed, protective [...] No history of macrovascular disease - CVA, DC.? Dexcom downloaded for??08/31/21 to 09/13/21 This device [...] insulin ([facility]) ([facility]) POCT GLUCOSE Routine 09/13/2021 8:57 AM CDT Type 2 diabetes mellitus with hyperglycemia, with long-term current use of insulin ([facility]) ([facility]) documented in this encounter Results [...] hyperglycemia, with long-term current use of insulin ([facility])- Primary Type 2 diabetes mellitus with microalbuminuria, with long-term current use of insulin ([facility]) Herpes zoster without complication Hyperlipidemia associated with type 2 diabetes mellitus ([facility]) Primary hypertension Unspecified essential hypertension Insulin pump in place Insulin pump status Cigarette smoker Tobacco use disorder Morbid (severe) obesity due to excess calories ([facility]) documented in this encounter Discontinued [...] 09/13/2021 added in this encounter Care Teams Cad Intern Relationship Specialty Start Date End Date Eron Holliday NP [address] [place] [address] PCP - General 06/28/21 05/08/22 documented as of this encounter
--- OUTSIDE RECORDS SUMMARY | 2024-03-03 17:38 | XMS_ITS | Encounter Summary ---
Author Organization [facility] Address [address] [facility] [address] [place] [address] Care Team Providers Care Associate Loan Officer Name Role Phone Vilma Herrera Primary Care Provider [phone] Encounter Details Date Type Department Care Team (Late st Contact Info) Description 01/24/2020 Orders Only Diabetes and Endocrine Care of [address] [place] [address] Marialuisa Daniel, TANK MAKER WOOD [address] [facility] [address] [place] [address] Type 2 diabetes mellitus with hyperglycemia, with long-term current use of insulin ([facility]) (Primary Dx) Social History Tobacco Use Types Packs/Day Years Used Date Smoking Tobacco: Every Day Smokeless Tobacco: Never Comments Unknown Sex and Gender Information Value Date Recorded Sex Assigned at Not on file Legal Sex Female 8:53 AM DECISION SCIENCE ANALYST Gender Identity Female 12/26/2023 10:11 PM CDT Sexual Orientation Straight 12/26/2023 10 :11 PM CDT documented as of this encounter Ordered Prescriptions Prescription Sig Dispense Quantity Refills Last Filled Start Date End Date blood-glucose meter,continuous (Dexcom G6 Html Developer) miscIndications:t ype 2 diabetes mellitus 1 Device [...] DexCom 6. Prescriptions sent. Marialuisa Daniel NP SION SCIENCE ANALYST documented in this encounter Plan of Treatment Not on file documented as of this encounter Visit Diagnoses Diagnosis Type 2 diabetes mellitus with hyperglycemia, with long-term current use of insulin (HCC)- Primary documented in this encounter Care Teams Associate Loan Officer Relationship Specialty [place] [address] [place] [address] PCP - General Physician Grating Machine Operator 08/19/19 07/06/20 documented as of this encounter
--- OUTSIDE RECORDS SUMMARY | 2024-03-03 17:38 | XMS_ITS | Encounter Summary ---
Author Organization [facility] Healthcare Address [address] [place] [address] Care Team Providers Care Transit Proof Machine Operator Name Role Phone Marialuisa Daniel NP Primary Care Provider [phone] Reason for Referral * Diagnostic Imaging (Routine) - Closed Specialty Diagnoses / Procedures Referred By Contac t Referred To Contact Diagnoses Chronic kidney disease, stage 2 (mild) Procedures US Kidney Complete Leobardo Bhagat MD Phone: tel: fax: [address] [address] Referral ID Status Reason Start Date Expiration Date Visits Re quested Visits Authorized [id number] Closed 06/09/2020 07/09/2021 1 1 Reason for Visit * Diagnostic Imaging (Routine) - Closed Specialty Diagnoses / Procedures Referred By Contac t Referred To Contact Diagnoses Chronic kidney disease, stage 2 (mild) Procedures US Kidney Complete Leobardo Bhagat MD Phone: tel: fax: [address] [address] Referral ID Status Reason Start Date Expiration Date Visits Re quested Visits Authorized [id number] Closed 06/09/2020 07/09/2021 1 1 Encounter Details Date Type Department Care Team (Latest Contact Info) Description 07/07/2020 9:17 AM CDT - 07/07/2020 11:59 PM CDT Hospital Encounter [facility] [address] [place] [address] Leobardo Bhagat MD [address] [facility] [address] [place] [address] Chronic kidney disease, stage 2 (mild) Discharge Disposition: Discharge to home or self care Social History Tobacco Use Types Packs/Day Years Used Date Smoking Tobacco: Every Day Smokeless Tobacco: Never Comments Unknown Sex and Gender Information Value Date Recorded Sex Assigned at Not on file Legal Sex Female 8:53 AM GROUND OPERATIONS SUPERINTENDENT Gender Identity Female 12/26/2023 10:11 PM CDT [...] 07/04/2017 09/22/19 24 blood-glucose meter,continuous (Dexcom G6 Fibre Cement Moulder) miscIndications: type 2 diabetes mellitus 1 Device [...] long-term current use of insulin ([facility]) USE TO TEST BLOOD SUGAR DIRECTED 3 [...] , with long-term current use of insulin ([facility]) Infuse insulin per Medtronic insulin pump. Max [...] AM T: ??07/07/2020 10:03 AM Report ID: [id number] Reading Location: ??[id number] Procedure Note Jacek Squires, DO - 07/07/2020 [...] Jacek Squires D.O. PS: PS Report ID: [id number] Reading Location: [id number] us Leobardo Bhagat [place] [facility] [place]ED[place] Final Resul t documented in this encounter Visit Diagnoses Diagnosis Chronic kidney disease, stage 2 (mild) documented in this encounter Care Teams Transit Proof Machine Operator Relationship Specialty Start Date End Date Marialuisa Daniel NP PCP - General 07/07/20 06/27/21 documented as of this encounter
--- OUTSIDE RECORDS SUMMARY | 2024-03-03 17:38 | XMS_ITS | Encounter Summary ---
Author Organization [facility] Healthcare Address [address] [place] [address] Care Team Providers Care Curriculum Development Manager Name Role Phone Eron Holliday NP Primary Care Provider [phone] Reason for Visit * Reason Comments Back Pain Neck Pain Follow-up Encounter Details Date Type Department Care Team (Late st Contact Info) Description 07/20/2021 7:52 AM CDT - 07/20/2021 11:59 PM CDT Hospital Encounter [facility] [id number] [place] [address] [place] [id number] [place] [address] [id number] [place] [id number] [place] [address] Chronic bilateral low back pain with bilateral sciatica (Primary Dx); Type 2 diabetes mellitus with hyperglycemia, with long-term current use of insulin (CMS/HCC) ([facility]); Radiculopathy, lumbosacral region; Morbid (severe) obesity due to excess calories ([facility]); Lumbar facet joint syndrome; Cigarette smoker; Cervical [...] on file Legal Sex Female 8:53 AM 4TH GRADE TEACHER Gender Identity Female 12/26/2023 10:11 PM [...] each 07/04/2017 4 blood-glucose meter,continuous (Dexcom G6 Preschool Director) miscIndications:t ype 2 diabetes mellitus 1 Device [...] with long-term current use of insulin ([facility]) USE TO TEST BLOOD SUGAR TWICE [...] utilized: Tylenol, Steroids, Gabapentin, Flexeril, Tramadol, Tizanidine, Ola, Morphine Allergies Allergen Reactions ??? Codeine Vomiting ??? Ibuprofen Other (See comments) Past Medical History: Diagnosis Date ??? Uncontrolled type 2 diabetes mellitus with hyperglycemia, with long-term current use of insulin([facility]) 04/03/2017 Patient Active Problem List Diagnosis ??? Anxiety and depression ??? Gastroesophageal reflux ??? Class 3 severe obesity due to excess calories with serious comorbidity and body mass index (BMI) of 40.0 to 44.9 in adult ([facility]) ??? Cigarette smoker ??? Type 2 diabetes mellitus with hyperglycemia, with long-term current use of insulin ([facility]) ([facility]) ??? Insulin pump titration ??? Type 2 diabetes mellitus with microalbuminuria, with long-term current use of insulin ([facility]) ??? Hyperlipidemia associated with type 2 diabetes mellitus ([facility]) ??? Morbid (severe) obesity due to excess calories ([facility]) ??? Radiculopathy, lumbosacral region ??? Cervical [...] blood-glucose meter kit blood-glucose meter,continuous (Dexcom G6 Preschool Director) misc cetirizine (ZyrTEC) 10 mg tablet citalopram [...] microalbuminuria, with long-term current use of insulin (CMS/HCC)([facility]) Yes ??? Type 2 diabetes mellitus with hyperglycemia, with long-term current use of insulin (CMS/HCC) ([facility]) ??? Radiculopathy, lumbosacral region ??? Morbid (severe) obesity due to excess calories ([facility]) ??? Lumbar facet joint syndrome ??? Cigarette [...] to9 is higher risk of opioid misuse) [place] and [place] Prescription Drug Monitoring Reviewed and was consistent [...] will start with a right L4-5 and L5-Q5CCCEO. She states she has not, but will [...] may be discussed at the next visit. Peer Support Specialist: Peer Support Specialist done with [employer]ency [employer]: variances and may [...] there are potential variances in recording and renal social worker. Dictated not proofread. documented in this encounter Miscellaneous Notes * Addendum Note - Kortney Arita RN - 07/20/2021 8:00 AM CDTEncounter addended by: Kortney Arita RN on: 07/25/2021 9:17 AM Actions [...] present documented in this encounter Care Teams Curriculum Development Manager Relationship Specialty Start Date End Date Eron Holliday NP [address] [place], [place] [id number] PCP - General 06/28/21 05/08/22 documented as of this encounter
--- OUTSIDE RECORDS SUMMARY | 2024-03-03 17:38 | XMS_ITS | Encounter Summary ---
Author Organization [facility] Healthcare Address [address] [place] [address] Care Team Providers Care Shake Loader Name Role Phone Eron Holliday NP Primary Care Provider [phone] Encounter Details Date Type Department Care Team (Latest Contact Info) Description 02/12/2022 8:00 AM BAND TUMBLER - 02/12/2022 11:59 PM BAND TUMBLER Hospital Encounter [facility] [address] [place] [address] Discharge Disposition: Discharge to home or self care Social History Tobacco Use Types Packs/Day Years Used Date Smoking Tobacco: Former Cigarettes Q uit: 03/20/2020 Smokeless Tobacco: Never Comments No Sex and Gender Information Value Date Recorded Sex Assigned at Not on file Legal Sex Female 8:53 AM BAND TUMBLER Gender Identity Female 12/26/2023 10:11 PM CDT [...] by mouth daily 12/05/2018 4 Dexcom G6 Quality Control Microbiology Supervisor miscIndications:T ype 2 diabetes mellitus with [...] MICROSCOPIC AND CULTURE Routine 02/12/2022 8:00 AM BAND TUMBLER ALBUMIN CREATININE RATIO, URINE Routine 02/12/2022 8:00 AM BAND TUMBLER URINALYSIS, MICROSCOPIC ONLY Routine 02/12/2022 8:00 AM BAND TUMBLER documented in this encounter Results * (ABNORMAL) Urinalysis, microscopic only (02/12/2022 8:00 AM BAND TUMBLER) WBC, ur 0-5 0 - 5 /HPF [facility] RBC, ur 0-2 0 - 2 /HPF [facility] Epithelial cells, squamous, ur 1-5 0 - 5 /HPF [facility] Mucous, ur Present(A) [facility] Culture Reflex Comment Reflex conditions for urine culture (WBC >10) not met. [facility] Urine 02/12/2022 8:00 AM BAND TUMBLER 02/13/2022 6:15 PM BAND TUMBLER us Christophe Tan MD LAB URINE ORDERABLES Final Resu lt OLIVIA [address] [address] Department of Laboratories [place], [place] [id number] * (ABNORMAL) Albumin Creatinine Ratio, Urine (02/12/2022 8:00 AM BAND TUMBLER) Albumin Ur 3,333.7 mg/L [facility] Comment: Interpretive Data No reference range established. Current interpretive data was last revised 2018. Creatinine Ur 153.9 mg/dL OL[facility]IA Comment: Interpretive Data No reference range established. Current interpretive data was last revised 2018. Albumin Creatinine Ratio, Ur 2,166(H) 1 - 29 mg/g [facility] Urine 02/12/2022 8:00 AM BAND TUMBLER 02/13/2022 6:15 PM BAND TUMBLER Christophe Tan MD LAB URINE ORDERABLES Final Resu lt Performing Organization Address [facility] Co de Phone Number OLIVIA [address] [place] [address] * (ABNORMAL) Urinalysis reflex to microscopic and culture Urine (02/12/2022 8:00 AM BAND TUMBLER) Color, ur Yellow Yellow [facility] Clarity, [...] performed. [facility] Urine 02/12/2022 8:00 AM BAND TUMBLER 02/13/2022 6:15 PM BAND TUMBLER Narrative [facility] - 02/13/2022 7:24 PM BAND TUMBLER ?? Urine pH is affected by diet, medications, systemic acid-base disturbances, and renal tubular function. ??pH may affect urinary stone formation. ??For example, urine pH below 6.0 may help reduce the tendency for calcium phosphate stones and pH greater than 6.0 may reduce the tendency for uric acid stone formation. Source: [employer]. Last revised 03-06-2017 Christophe Tan MD LAB MICROBIOLOGY - GENERAL ORDE RABJAMILA Final Result Performing Organization Address [facility] Co de Phone Number OLIVIA [address] [address] Department [place] [place] [address] documented in this encounter Visit Diagnoses Not on filedocumented in this encounter Care Teams Shake Loader Relationship Specialty Start Date End Date Eron Holliday NP [address] [place] [address] [place] [address] PCP - General 06/28/21 05/08/22 documented as of this encounter
--- OUTSIDE RECORDS SUMMARY | 2024-03-03 17:38 | XMS_ITS | Encounter Summary ---
Author Organization [facility] Healthcare Address [address] [place] [address] Care Team Providers Care Lawnmower Mechanic Name Role Phone Eron Holliday NP Primary Care Provider [phone] Encounter Details Date Type Department Care Team (Late st Contact Info) Description 08/22/2021 10:02 AM CDT - 08/22/2021 10:20 AM CDT Hospital Encounter [facility] [address] [place] [address] [place] [address] [facility] [address] [place] [address] Herniation of intervertebral disc between L5 and S1; Radiculopathy, lumbosacral region Discharge Disposition: Discharge to home or self care Social History Tobacco Use Types Packs/Day Years Used Date Smoking Tobacco: Every Day Cigarettes Last attempted to quit: 03/20/2020 Smokeless Tobacco: Never Comments No Sex and Gender Information Value Date Recorded Sex Assigned at Not on file Legal Sex Female 8:53 AM DOG HANDLER OR TRAINER Gender Identity Female 12/26/2023 10:11 PM [...] the Pain Management Center i mmediately at [phone]. After hours, contact the [facility] Channel Cementer Outsole Machine at [phone] and she will reach your physician for you. In case of emergency call [phone] Pay attention to how pain changes, even [...] each 07/04/2017 4 blood-glucose meter,continuous (Dexcom G6 Fur Sewer) miscIndications:t ype 2 diabetes mellitus 1 Device continuously 1 each 1 01/24/2020 2 cetirizine (ZyrTEC) 10 mg tablet Take 1 tablet (10 mg total) by mouth daily 12/05/2018 4 citalopram (CeleXA) 40 mg tablet Take 20 mg by mouth daily 2 Dexcom G6 Fur Sewer miscIndications:T ype 2 diabetes mellitus with hyperglycemia, [...] with hyperglycemia, with long-term current use of insulin([facility]) 04/03/2017 History reviewed. No pertinent surgical [...] blood-glucose meter kit blood-glucose meter,continuous (Dexcom G6 Fur Sewer) misc cetirizine (ZyrTEC) 10 mg tablet citalopram [...] Arm documented in this encounter Care Teams Lawnmower Mechanic Relationship Specialty Start Date End Date Eron Holliday NP [address] [facility] [place] [address] PCP - General 06/28/21 05/08/22 documented as of this encounter
--- OUTSIDE RECORDS SUMMARY | 2024-03-03 17:38 | XMS_ITS | Encounter Summary ---
Author Organization [facility] Medical Group Address [address] [facility] [address] [place] [address] Care Team Providers Care Tacking Machine Operator Name Role Phone Vilma Herrera Primary Care Provider [phone] Encounter Details Date Type Department Care Team (Late st Contact Info) Description 07/03/2020 Telephone [facility] [address] [place] [address] Marialuisa Daniel, CHRISTOPHER [address] [address] Social History Tobacco Use Types Packs/Day Years Used Date Smoking Tobacco: Every Day Smokeless Tobacco: Never Comments Unknown Sex and Gender Information Value Date Recorded Sex Assigned at Not on file Legal Sex Female 8:53 AM DIRECTOR STATISTICAL PROGRAMMING Gender Identity Female 12/26/2023 10:11 PM CDT [...] on filedocumented in this encounter Care Teams Tacking Machine Operator Relationship Specialty Start Date End Date Vilma Herrear PA [address] [place] [address] PCP - General Physician Social Science Professor 08/19/19 07/06/20 documented as of this encounter
--- OUTSIDE RECORDS SUMMARY | 2024-03-03 17:38 | XMS_ITS | Encounter Summary ---
Author Organization [facility] Healthcare Address [address] [place] [address] Care Team Providers Care Diamond Setter Apprentice Name Role Phone Eron Holliday NP Primary Care Provider [phone] Reason for Referral * MRI/CAT/PET Scan (Routine) - Closed Specialty Diagnoses / Procedures Referred By Contac t Referred To Contact Radiology Diagnoses Chronic bilateral low back pain with bilateral sciatica Radiculopathy, lumbosacral region Lumbar facet joint syndrome Procedures MRI [place] [address] [facility] 100 [place] [address] Phone: tel: fax: [address] [phone] Referral ID Status Reason Start Date Expiration Date Visits Re quested Visits Authorized [id number] Closed 06/27/2021 08/25/2021 1 1 Reason for Visit * MRI/CAT/PET Scan (Routine) - Closed Specialty Diagnoses / Procedures Referred By Contac t Referred To Contact Radiology Diagnoses Chronic bilateral low back pain with bilateral sciatica Radiculopathy, lumbosacral region Lumbar facet joint syndrome Procedures [place] [address] [facility] 100 [place] [address] Phone: tel: fax: [facility] [id number] [place] [phone] Referral ID Status Reason Start Date Expiration Date Visits Re quested Visits Authorized [id number] Closed 06/27/2021 08/25/2021 1 1 Encounter Details Date Type Department Care Team (Late st Contact Info) Description 07/06/2021 4:17 PM CDT - 07/06/2021 11:59 PM CDT Hospital Encounter [facility] Radiology [address] [place], [place] [id number] [place] [address] [facility] OFE [address] [place] [id number] Chronic bilateral low back pain with bilateral [...] on file Legal Sex Female 8:53 AM HEMODIALYSIS RN Gender Identity Female 12/26/2023 10:11 PM [...] each 07/04/2017 4 blood-glucose meter,continuous (Dexcom G6 Head Neck Surgeon) miscIndications:t ype 2 diabetes mellitus 1 Device [...] hyperglycemia, with long-term current use of insulin ([facility]) USE TO TEST BLOOD SUGAR TWICE [...] syndrome documented in this encounter Care Teams Diamond Setter Apprentice Relationship Specialty Start Date End Date Eron Holliday NP [address] [place] [address] PCP - General 06/28/21 05/08/22 documented as of this encounter
--- OUTSIDE RECORDS SUMMARY | 2024-03-03 17:38 | XMS_ITS | Encounter Summary ---
Author Organization [facility] Medical Group Address [address] [facility] [address] [place] [address] Care Team Providers Care Jig Borer Name Role Phone Eron Holliday NP Primary Care Provider [phone] Encounter Details Date Type Department Care Team (Late st Contact Info) Description 08/14/2021 Telephone [facility] of [address] [place] [address] Marialuisa Daniel, CHRISTOPHER [address] [facility] [address] [place] [address] Social History Tobacco Use Types Packs/Day Years Used Date Smoking Tobacco: Every Day Cigarettes Last attempted to quit: 03/20/2020 Smokeless Tobacco: Never Comments No Sex and Gender Information Value Date Recorded Sex Assigned at Not on file Legal Sex Female 8:53 AM JET ENGINE MECHANIC Gender Identity Female 12/26/2023 10:11 [...] on filedocumented in this encounter Care Teams Jig Borer Relationship Specialty Start Date End Date Eron Holliday NP [address] [facility] [place] [address] PCP - General 06/28/21 05/08/22 documented as of this encounter
--- OUTSIDE RECORDS SUMMARY | 2024-03-03 17:38 | XMS_ITS | Encounter Summary ---
Author Organization [facility] Medical Group Address [address] [facility] [address] [place] [address] Care Team Providers Care Roofing Machine Operator Name Role Phone Vilma Herrera Primary Care Provider [phone] Reason for Visit * Reason Onset Date Comments Med Refill 12/30/2019 Encounter Details Date Type Department Care Team (Late st Contact Info) Description 12/30/2019 Telephone [facility] of [address] [place] [address] [place] [address] [place] [address] Med Refill Social History Tobacco Use Types Packs/Day Years Used Date Smoking Tobacco: Every Day Smokeless Tobacco: Never Comments Unknown Sex and Gender Information Value Date Recorded Sex Assigned at Not on file Legal Sex Female 8:53 AM LODGE SALES ASSOCIATE Gender Identity Female 12/26/2023 10:11 PM CDT Sexual Orientation Straight 12/26/2023 10 :11 PM CDT documented as of this encounter Miscellaneous Notes * Telephone Encounter - Allyssa Avina MA - 12/30/2019 9:35 AM CST Sent pended test strips Rx to [facility] for approval. Please advise, thank you E SALES ASSOCIATE * Telephone Encounter - Carrie Milian - 12/30/2019 8:41 AM CST Pt calling stating she is on a pump that has a continuous glucose meter. She tests her sugars BID. She needs strips for the meter. They are contour next. [facility] E SALES ASSOCIATE documented in this encounter Plan of Treatment Not on file documented as of this encounter Visit Diagnoses Not on filedocumented in this encounter Care Teams Roofing Machine Operator Relationship Specialty Start Date End Date Vilma Herrera PA [address] [place] [address] PCP - General Physician Pot Fireman 08/19/19 07/06/20 documented as of this encounter
--- OUTSIDE RECORDS SUMMARY | 2024-03-03 17:38 | XMS_ITS | Encounter Summary ---
Author Organization [facility] Medical Group Address [address] [facility] [address] [place] [address] Care Team Providers Care Cruise Counselor Name Role Phone Eron Holliday NP Primary Care Provider [phone] Encounter Details Date Type Department Care Team (Late st Contact Info) Description 01/24/2022 Orders Only [facility] Diabetes Endocrine Care of [address] [place] [address] Provider, MD Alex [address] [place] [address] Social History Tobacco Use Types Packs/Day Years Used Date Smoking Tobacco: Former Cigarettes Q uit: 03/20/2020 Smokeless Tobacco: Never Comments No Sex and Gender Information Value Date Recorded Sex Assigned at Not on file Legal Sex Female 8:53 AM PHOTOGRAPHIC PLATE MAKER Gender Identity Female 12/26/2023 10:11 PM [...] on filedocumented in this encounter Care Teams Cruise Counselor Relationship Specialty Start Date End Date Eron Holliday NP [address] [place] [address] PCP - General 06/28/21 05/08/22 documented as of this encounter
--- OUTSIDE RECORDS SUMMARY | 2024-03-03 17:38 | XMS_ITS | Encounter Summary ---
Author Organization [facility] Medical Group Address [address] [facility] [address] [place] [address] Care Team Providers Care Arts Administrator Name Role Phone Vilma Herrera Primary Care Provider [phone] Encounter Details Date Type Department Care Team (Late st Contact Info) Description 09/27/2019 Telephone [facility] of [address] [place] [address] Marialuisa Daniel NP [address] [address] Social History Tobacco Use Types Packs/Day Years Used Date Smoking Tobacco: Every Day Smokeless Tobacco: Never Comments Unknown Sex and Gender Information Value Date Recorded Sex Assigned at Not on file Legal Sex Female 8:53 AM PLAYGROUND SUPERVISOR Gender Identity Female 12/26/2023 10:11 PM CDT Sexual Orientation Straight 12/26/2023 10 :11 PM CDT documented as of this encounter Miscellaneous Notes * Telephone Encounter - Marialuisa Daniel NP - 09/27/2019 9:27 AM CDT Call patient with CMP results. I recommended she be evaluated by nephrology. Referral sent for Dr. Brooke Becerra [address] [place], [place] [address] documented in this encounter Plan of Treatment Not on file documented as of this encounter Visit Diagnoses Diagnosis Uncontrolled type 2 diabetes mellitus with hyperglycemia, with long-term current use of insulin (HCC)- Primary documented in this encounter Care Teams Arts Administrator Relationship Specialty Start Date End Date Vilma Herrera PA [address] [place] [address] PCP - General Physician Licensed Physical Therapist 08/19/19 07/06/20 documented as of this encounter
--- OUTSIDE RECORDS SUMMARY | 2024-03-03 17:38 | XMS_ITS | Encounter Summary ---
Author Organization [facility] Medical Group Address [address] [facility] [address] [place] [address] Care Team Providers Care Form Coverer Name Role Phone Vilma Herrera Primary Care Provider [phone] Encounter Details Date Type Department Care Team (Late st Contact Info) Description 04/11/2020 Telephone [facility] of [address] [place] [address] Lorne Mcginnis MD [address] [place] [address] [address] [place] [address] Social History Tobacco Use Types Packs/Day Years Used Date Smoking Tobacco: Every Day Smokeless Tobacco: Never Comments Unknown Sex and Gender Information Value Date Recorded Sex Assigned at Not on file Legal Sex Female 8:53 AM STRAINER TENDER Gender Identity Female 12/26/2023 10:11 PM CDT Sexual Orientation Straight 12/26/2023 10 :11 PM CDT documented as of this encounter Miscellaneous Notes * Telephone Encounter - Allyssa Avina MA - 04/12/2020 2:59 PM CST Received fax from [employer], the Trajenta 5MG tablets have been approved/granted from 04/12/20 to 04/12/21. Fax sent to scanning. INER TENDER * Telephone Encounter - July Berrye Funk - 04/12/2020 8:34 AM CST PA submitted online. I will let you know once I get a response from her ins. INER TENDER INER TENDER * Telephone Encounter - Marialuisa Daniel NP - 04/11/2020 3:48 PM CST Hi Jailyn, I received a message from the [employer] stating her insurance will no longer cover Trajenta. Trajenta does not require dose adjustment for kidney failure while the other drugs in that category do. She has kidney failure. Can we prior auth this so she can keep taking it? Torito Elam INER TENDER * Telephone Encounter - Marialuisa Daniel NP - 04/11/2020 1:19 PM CST Returned call to patient. She will upload pump tonight. I will review tomorrow and we will adjust settings. She has not smoked for 43 days. This has caused an increase in appetite. She reports a 5lbsweight gain. INER TENDER * Telephone Encounter - Allyssa Avina MA - 04/11/2020 12:52 PM CST Please advise, thank you INER TENDER * Telephone Encounter - Armida Saeed - [...] am today 204 Please advise. [facility] INER TENDER documented in this encounter Plan of Treatment Not on file documented as of this encounter Visit Diagnoses Not on filedocumented in this encounter Care Teams Form Coverer Relationship Specialty Start Date End Date Vilma Herrera PA [address] [place] [address] PCP - General Physician Job Estimator 08/19/19 07/06/20 documented as of this encounter
--- OUTSIDE RECORDS SUMMARY | 2024-03-03 17:38 | XMS_ITS | Encounter Summary ---
Author Organization [facility] Address [address] [facility] [address] [place] [address] Care Team Providers Care Evp Global Product Leadership Name Role Phone Marialuisa Daniel NP Primary Care Provider [phone] Encounter Details Date Type Department Care Team (Late st Contact Info) Description 06/05/2021 Documentation [facility] of [address] [place] [address] Marialuisa Daniel, EXTRACTIONS TECHNICIAN [address] [facility] [address] [place] [address] Social History Tobacco Use Types Packs/Day Years Used Date Smoking Tobacco: Every Day Cigarettes Last attempted to quit: 03/20/2020 Smokeless Tobacco: Never Comments Unknown Sex and Gender Information Value Date Recorded Sex Assigned at Not on file Legal Sex Female 8:53 AM INSPECTOR PUBLICATIONS Gender Identity Female 12/26/2023 10:11 PM [...] on filedocumented in this encounter Care Teams Evp Global Product Leadership Relationship Specialty Start Date End Date Marialuisa Daniel NP PCP - General 07/07/20 06/27/21 documented as of this encounter
--- OUTSIDE RECORDS SUMMARY | 2024-03-03 17:38 | XMS_ITS | Encounter Summary ---
Author Organization [facility] Address [address] [facility] [address] [place] [address] Care Team Providers Care Communications Director Name Role Phone Vilma eHrrera Primary Care Provider [phone] Encounter Details Date Type Department Care Team (Late st Contact Info) Description 01/19/2020 Telephone [facility] of [address] [place] [address] Marialuisa Daniel, MANAGER CARGO [address] [address] Social History Tobacco Use Types Packs/Day Years Used Date Smoking Tobacco: Every Day Smokeless Tobacco: Never Comments Unknown Sex and Gender Information Value Date Recorded Sex Assigned at Not on file Legal Sex Female 8:53 AM AIRCRAFT GENERAL REPAIR MECHANIC Gender Identity Female 12/26/2023 10:11 PM CDT Sexual Orientation Straight 12/26/2023 10 :11 PM CDT documented as of this encounter Miscellaneous Notes * Telephone Encounter - Corinna Wright MA - 01/19/2020 10:06 AM CST Please see message below and advise RAFT GENERAL REPAIR MECHANIC * Telephone Encounter - Mallory Joseph MA [...] like do to it not being accurate RAFT GENERAL REPAIR MECHANIC documented in this encounter Plan of Treatment Not on file documented as of this encounter Visit Diagnoses Not on filedocumented in this encounter Care Teams Communications Director Relationship Specialty Start Date End Date Vilma Herrera PA [address] [place] [address] PCP - General Physician Amusement Park Worker 08/19/19 07/06/20 documented as of this encounter
--- OUTSIDE RECORDS SUMMARY | 2024-03-03 17:38 | XMS_ITS | Encounter Summary ---
Author Organization [facility] Medical Group Address [address] [facility] [address] [place] [address] Care Team Providers Care Road Builder Name Role Phone Vilma Herrera Primary Care Provider [phone] Encounter Details Date Type Department Care Team (Late st Contact Info) Description 12/03/2019 Telephone [facility] of [address] [place] [address] Marialuisa Daniel, COUNTER TACKER [address] [address] Social History Tobacco Use Types Packs/Day Years Used Date Smoking Tobacco: Every Day Smokeless Tobacco: Never Comments Unknown Sex and Gender Information Value Date Recorded Sex Assigned at Not on file Legal Sex Female 8:53 AM DAYCARE TEACHER Gender Identity Female 12/26/2023 10:11 PM [...] pt an appt. Pt verified fax number #[phone] but they still say they cannot find it. Please advise. documented in this encounter Plan of Treatment Not on file documented as of this encounter Visit Diagnoses Not on filedocumented in this encounter Care Teams Road Builder Relationship Specialty Start Date End Date Vilma Herrera PA [address] [place] [address] PCP - General Physician Engineering Technician Parking 08/19/19 07/06/20 documented as of this encounter
--- OUTSIDE RECORDS SUMMARY | 2024-03-03 17:38 | XMS_ITS | Encounter Summary ---
Author Organization [facility] Healthcare Address [address] [place] [address] Care Team Providers Care Veneer Lathe Operator Name Role Phone Marialuisa Daniel NP Primary Care Provider [phone] Encounter Details Date Type Department Care Team (Late st Contact Info) Description 06/27/2021 [facility] Only [facility] [address] [place] [address] [place] [address] [facility] [address] [place], [place] [id number] Cervicalgia (Primary Dx); Cervical radiculopathy Social History Tobacco Use Types Packs/Day Years Used Date Smoking Tobacco: Every Day Cigarettes Last attempted to quit: 03/20/2020 Smokeless Tobacco: Never Comments No Sex and Gender Information Value Date Recorded Sex Assigned at Not on file Legal Sex Female 8:53 AM BENCH HAND MACHINE Gender Identity Female 12/26/2023 10:11 PM CDT Sexual Orientation Straight 12/26/2023 10 :11 PM CDT documented as of this encounter Plan of Treatment Not on file documented as of this encounter Visit Diagnoses Diagnosis Cervicalgia- Primary Cervical radiculopathy Brachial neuritis or radiculitis nos documented in this encounter Care Teams Veneer Lathe Operator Relationship Specialty Start Date End Date Marialuisa Daniel NP PCP - General 07/07/20 06/27/21 documented as of this encounter
--- OUTSIDE RECORDS SUMMARY | 2024-03-03 17:39 | XMS_ITS | Encounter Summary ---
Author Organization [facility] Medical Group Address [address] [facility] [address] [place] [address] Care Team Providers Care Bearingizer Name Role Phone Vilma Herrera Primary Care Provider [phone] Encounter Details Date Type Department Care Team (Late st Contact Info) Description 08/20/2019 Orders Only [facility] of [address] [place] [address] Marialuisa Daniel, LAP POLISHER [address] [facility] [address] [place] [address] Type 2 diabetes mellitus (CMS/HCC) (Primary Dx) Social History Tobacco Use Types Packs/Day Years Used Date Smoking Tobacco: Every Day Smokeless Tobacco: Never Comments Unknown Sex and Gender Information Value Date Recorded Sex Assigned at Not on file Legal Sex Female 8:53 AM GLASS TECHNOLOGIST Gender Identity Female 12/26/2023 10:11 PM CDT [...] ([place]) Estimated Average Glucose 174 mg/dL OLIVIA SANTOYO ([place]) Comment: The ADA recommends reporting an estimated Average Glucose (eAG) with all Hemoglobin A1c results using the equation derived from a study of 507 normal and diabetic adults. ??Minority populations were underrepresented and children were not included. ?? (Diabetes Care 31:9358-9254, 2008). ??The eAG is not equivalent to a fasting glucose. Blood specimen (specimen) 09/13/2019 12:02 PM CDT 09/13/2019 1:24 PM CDT us Marialuisa Daniel NP LAB BLOOD ORDERABLES Final Resu lt OLIVIA SANTOYO (CENTRAL) 1 [facility] Department [place] [address] documented in this encounter Visit Diagnoses Diagnosis Type 2 diabetes mellitus (HCC)- Primary documented in this encounter Care Teams Bearingizer Relationship Specialty Start Date End Date Vilma Herrera PA [address] [place] [address] PCP - General Physician Software Engineer Mobile 08/19/19 07/06/20 documented as of this encounter
--- OUTSIDE RECORDS SUMMARY | 2024-03-03 17:39 | XMS_ITS | Encounter Summary ---
Author Organization [facility] Medical Group Address [address] [facility] [address] [place] [address] Care Team Providers Care Broadcast Program Director Name Role Phone Vilma Herrera Primary Care Provider [phone] Reason for Visit * Reason Onset Date Comments Diabetes Type 2 08/20/2019 labs needed Encounter Details Date Type Department Care Team (Late st Contact Info) Description 08/20/2019 Telephone [facility] of [address] [place] [address] Marialuisa Daniel, RECORD KEEPER [address] [place] [id number] Diabetes Type 2 (labs needed) Social History Tobacco Use Types Packs/Day Years Used Date Smoking Tobacco: Every Day Smokeless Tobacco: Never Comments Unknown Sex and Gender Information Value Date Recorded Sex Assigned at Not on file Legal Sex Female 8:53 AM EMULSIFICATION OPERATOR Gender Identity Female 12/26/2023 10:11 PM [...] (ABNORMAL) Lipid panel (09/13/2019 12:02 PM CDT) [facility] Cholesterol 117 30 - 199 mg/dL [...] Final Resu lt OLIVIA NATANAEL ([place]) 1 [facility] Department [place] [address] documented in this encounter Visit Diagnoses Diagnosis Type 2 diabetes mellitus (HCC)- Primary Type 2 diabetes mellitus (HCC) documented in this encounter Care Teams Broadcast Program Director Relationship Specialty [place] [address] [place] [address] PCP - General Physician Drain Cleaner 08/19/19 07/06/20 documented as of this encounter
--- OUTSIDE RECORDS SUMMARY | 2024-03-03 17:39 | XMS_ITS | Encounter Summary ---
Author Organization [facility] Medical Group Address [address] [facility] [address] [place] [address] Care Team Providers Care Information Technology Advisor Name Role Phone Vilma Herrera Primary Care Provider [phone] Reason for Visit * Reason Comments Diabetes Type 2 Encounter Details Date Type Department Care Team (Late st Contact Info) Description 08/19/2019 4:00 PM CDT Office Visit [facility] of [address] [place] [address] Lorne Mcginnis MD [address] [place] [address] [address] [place] [address] Uncontrolled type 2 diabetes mellitus with hyperglycemia, with long-term current use of insulin ([facility]) (Primary Dx) Social History Tobacco Use Types Packs/Day Years Used Date Smoking Tobacco: Every Day Smokeless Tobacco: Never Comments Unknown Sex and Gender Information Value Date Recorded Sex Assigned at Not on file Legal Sex Female 8:53 AM LINING PRINTER Gender Identity Female 12/26/2023 10:11 PM CDT [...] ??? Call office for questions or concerns. [phone] documented in this encounter Ordered Prescriptions Prescription [...] private insurance. She just recently purchased a [employer] com continues glucose monitor. Today she reports [...] hyperglycemia, with long-term current use of insulin ([facility]) (Primary) Assessment & Plan: This [...] hyperglycemia, with long-term current use of insulin ([facility]) documented in this encounter Results * POCT glucose (08/19/2019 8:03 AM CDT) Glucose Blood, POC 99 mg/dL Blood specimen (specimen) 08/19/2019 8:03 AM CDT Marialuisa Daniel NP POINT OF CARE TEST ORDERABLES F inal Result documented in this encounter Visit Diagnoses Diagnosis Uncontrolled type 2 diabetes mellitus with hyperglycemia, with long-term current use of insulin ([facility])- Primary documented in this encounter Discontinued Medications [...] 08/19/2020 added in this encounter Care Teams Information Technology Advisor Relationship Specialty Start Date End Date Vilma Herrera PA [address] [place] [address] PCP - General Physician Engine Buildup Mechanic 08/19/19 07/06/20 documented as of this encounter
--- OUTSIDE RECORDS SUMMARY | 2024-03-03 17:39 | XMS_ITS | Encounter Summary ---
Author Organization [facility] Medical Group Address [address] [facility] [address] [place] [address] Care Team Providers Care Science Writer Name Role Phone Dewayne Cedillo MD Primary Care Provider Vilma Herrera Primary Care Provider [phone] Encounter Details Date Type Department Care Team (Late st Contact Info) Description 04/07/2017 Orders Only [facility] Health Information Management [address] [place] [address] Scanning, Provider Social History Tobacco Use Types Packs/Day Years Used Date Smoking Tobacco: Every Day Smokeless Tobacco: Never Comments Unknown Sex and Gender Information Value Date Recorded Sex Assigned at Not on file Legal Sex Female 8:53 AM PLUMBING DRAFTER Gender Identity Female 12/26/2023 10:11 PM CDT [...] Comments SCAN - LABS 04/07/2017 1:38 PM PLUMBING DRAFTER documented in this encounter Results * SCAN - LABS (04/07/2017 1:38 PM PLUMBING DRAFTER) us Provider Scanning Final Result documented in this encounter Visit Diagnoses Not on filedocumented in this encounter Care Teams Science Writer Relationship Specialty Start [place] [address] [place] [address] 1 [place] [address] PCP - General Internal Medicine 04/02/17 08/18/19 Vilma Herrera PA [address] [place] [address] PCP - General Physician Stock Clerk Self Service Store 08/19/19 07/06/20 documented as of this encounter
--- OUTSIDE RECORDS SUMMARY | 2024-03-03 17:39 | XMS_ITS | Encounter Summary ---
Author Organization [facility] Medical Group Address [address] [facility] [address] [place] [address] Care Team Providers Care Venereal Disease Investigator Name Role Phone Dewayne Cedillo MD Primary Care Provider Vilma Herrera Primary Care Provider [phone] Encounter Details Date Type Department Care Team (Late st Contact Info) Description 06/03/2017 Orders Only [facility] of [address] [place] [address] Lorne Mcginnis MD [address] [place] [address] 230 [place] [address] Social History Tobacco Use Types Packs/Day Years Used Date Smoking Tobacco: Every Day Smokeless Tobacco: Never Comments Unknown Sex and Gender Information Value Date Recorded Sex Assigned at Not on file Legal Sex Female 8:53 AM HAMMER REPAIRER Gender Identity Female 12/26/2023 10:11 PM [...] on filedocumented in this encounter Care Teams Venereal Disease Investigator Relationship Specialty Start Date End Date Dewayne Cedillo MD [address] [place] [address] 1 [place] [address] PCP - General Internal Medicine 04/02/17 08/18/19 Vilma Herrera PA [address] [place] [address] PCP - General Physician Fingerprint Classifier 08/19/19 07/06/20 documented as of this encounter
--- OUTSIDE RECORDS SUMMARY | 2024-03-03 17:39 | XMS_ITS | Encounter Summary ---
Author Organization [facility] Medical Group Address [address] [facility] [address] [place] [address] Care Team Providers Care Access Rep Name Role Phone Vilma Herrera Primary Care Provider [phone] Encounter Details Date Type Department Care Team (Late st Contact Info) Description 09/20/2019 Telephone [facility] of [address] [place] [address] Marialuisa Daniel, CHRISTOPHER [address] [address] Social History Tobacco Use Types Packs/Day Years Used Date Smoking Tobacco: Every Day Smokeless Tobacco: Never Comments Unknown Sex and Gender Information Value Date Recorded Sex Assigned at Not on file Legal Sex Female 8:53 AM CLINICAL DIETICIAN Gender Identity Female 12/26/2023 10:11 PM CDT [...] 21 8 - 25 mg/dL [facility] ([place]) Creatinine 1.14(H) 0.60 - 1.10 mg/dL [facility]ER [...] 09/24/2019 5:14 PM CDT us Marialuisa Daniel DEBURR OPERATOR LAB BLOOD ORDERABLES Final Resu lt [facility] ([place]) 1 [facility] [place] [address] documented in this encounter Visit Diagnoses Diagnosis Type 2 diabetes mellitus (HCC)- Primary documented in this encounter Care Teams Access Rep Relationship Specialty Start Date End Date Vilma Herrera PA [address] [place] [address] PCP - General Physician Fitness And Wellness Director 08/19/19 07/06/20 documented as of this encounter
--- OUTSIDE RECORDS SUMMARY | 2024-03-03 17:39 | XMS_ITS | Encounter Summary ---
Author Organization [facility] Medical Group Address [address] [facility] [address] [place] [address] Care Team Providers Care Pearl Technician Name Role Phone Dewayne Cedillo MD Primary Care Provider Reason for Visit * Reason Onset Date Comments Test strips 07/04/2017 Encounter Details Date Type Department Care Team (Late st Contact Info) Description 07/04/2017 Telephone [facility] of [address] [place] [address] Dewayne Cedillo MD [address] [place] [address] Test strips Social History Tobacco Use Types Packs/Day Years Used Date Smoking Tobacco: Every Day Smokeless Tobacco: Never Comments Unknown Sex and Gender Information Value Date Recorded Sex Assigned at Not on file Legal Sex Female 8:53 AM FIELD AUTOMOBILE ADJUSTER Gender Identity Female 12/26/2023 10:11 PM [...] documented as of this encounter Care Teams Pearl Technician Relationship Specialty Start Date End Date Dewayne Cedillo MD [address] [place] [address] PCP - General Internal Medicine 04/02/17 08/18/19 documented as of this encounter
--- OUTSIDE RECORDS SUMMARY | 2024-03-03 17:39 | XMS_ITS | Encounter Summary ---
Author Organization [facility] Healthcare Address [address] [place] [address] Care Team Providers Care Esthetician Facialist Name Role Phone Vilma Herrera Primary Care Provider [phone] Encounter Details Date Type Department Care Team (Late st Contact Info) Description 09/24/2019 1:50 PM CDT [address] Lorne Mcginnis MD [address] [place] [address] Marialuisa Daniel NP [address] [facility] 110 [place] [address] Type 2 diabetes mellitus (CMS/HCC) Discharge Disposition: Discharge to home or self care Social History Tobacco Use Types Packs/Day Years Used Date Smoking Tobacco: Every Day Smokeless Tobacco: Never Comments Unknown Sex and Gender Information Value Date Recorded Sex Assigned at Not on file Legal Sex Female 8:53 AM FURNITURE UPHOLSTERER APPRENTICE Gender Identity Female 12/26/2023 10:11 PM [...] eGFR 55 mL/min/1.7 3 m2 OLIVIA SANTOYO ([place]) Comment: Interpretive Data Reference Interval Normal ?>/= 90 mL/min/1.73m2 Mildly decreased* ? 60 - 89 mL/min/1.73m2 Mildly to moderately decreased ?45 - 59 mL/min/1.73m2 Moderately to severely decreased ??30 - 44 mL/min/1.73m2 Severely decreased ?15 - 29 mL/min/1.73m2 Kidney Failure ?< 15 ??mL/min/1.73m2 *Relative to young adult level If -[place] multiply value by 1.16. Estimated glomerular filtration [...] BLOOD ORDERABLES Final Resu lt OLIVIA SANTOYO (PROCIOUS) 1 [facility] Department [place] [address] * (ABNORMAL) Comprehensive metabolic panel (09/24/2019 1:51 [...] Final Resu lt [facility] ([place]) 1 [facility] Department [place] [address] documented in this encounter Visit Diagnoses Diagnosis Type 2 diabetes mellitus (HCC) documented in this encounter Care Teams Esthetician Facialist Relationship Specialty Start Date End Date Vilma Herrera PA [address] [place] [address] PCP - General Physician Food Service Supervisor 08/19/19 07/06/20 documented as of this encounter
--- OUTSIDE RECORDS SUMMARY | 2024-03-03 17:39 | XMS_ITS | Encounter Summary ---
Author Organization [facility] Healthcare Address [address] [place] [address] Care Team Providers Care Gambling Monitor Name Role Phone Vilma Herrera Primary Care Provider [phone] Encounter Details Date Type Department Care Team (Late st Contact Info) Description 09/13/2019 12:05 PM CDT [address] Lorne Mcginnis MD [address] [place] [address] Marialuisa Daniel NP [address] [facility] [address] [place] [address] Type 2 diabetes mellitus (CMS/HCC) Discharge Disposition: Discharge to home or self care Social History Tobacco Use Types Packs/Day Years Used Date Smoking Tobacco: Every Day Smokeless Tobacco: Never Comments Unknown Sex and Gender Information Value Date Recorded Sex Assigned at Not on file Legal Sex Female 8:53 AM GRADES 1 THROUGH 6 TEACHER Gender Identity Female 12/26/2023 10:11 PM [...] was last revised 2018. Testing performed by: [address] [address] Creatinine Ur 142.7 mg/dL OLIVIA SANTOYO ([place]) Comment: Interpretive Data No reference range established. Current interpretive data was last revised 2018. Testing performed by: [facility], [address] [place] [address]., [address] Albumin Creatinine Ratio, Ur 865(H) 1 - 29 mg/g OLIVIA SANTOYO ([place]) Comment:Testing performed by : [facility], [address] [place] [address]., [address] Urine 09/13/2019 12:0 2 PM CDT 09/13/2019 3:30 PM CDT us Marialuisa Daniel NP LAB URINE ORDERABLES Final Resu lt OLIVIA SANTOYO ([place]) 1 [facility] [place] [address] * (ABNORMAL) Lipid panel (09/13/2019 12:02 PM [...] ORDERABLES Final Resu lt Performing Organization Address City/[facility]/ZIP Co de Phone Number OLIVIA SANTOYO ([place]) 1 [facility] [place] [address] * (ABNORMAL) Hemoglobin A1c (09/13/2019 12:02 PM CDT) Hgb A1C 7.7(H) 4.0 - 5.6 % [facility] ([place]) Estimated Average Glucose 174 mg/dL [facility]IA [facility] ([place]) Comment: The ADA recommends reporting an estimated Average Glucose (eAG) with all Hemoglobin A1c results using the equation derived from a study of 507 normal and diabetic adults. ??Minority populations were underrepresented and children were not included. ?? (Diabetes Care 31:9716-0105, 2008). ??The eAG is not equivalent to a fasting glucose. Blood specimen (specimen) 09/13/2019 12:02 PM CDT 09/13/2019 1:24 PM CDT Marialuisa Daniel NP LAB BLOOD ORDERABLES Final Resu Performing Organization Address City/[facility]/ZIP Co de Phone Number OLIVIA SANTOYO ([place]) 1 [facility] [place] [address] documented in this encounter Visit Diagnoses Diagnosis Type 2 diabetes mellitus (HCC) documented in this encounter Care Teams Gambling Monitor Relationship Specialty Start Date End Date Vilma Herrera PA [address] [place] [address] PCP - General Physician Asbestos Surveyor 08/19/19 07/06/20 documented as of this encounter
--- OUTSIDE RECORDS SUMMARY | 2024-03-03 17:39 | XMS_ITS | Encounter Summary ---
Author Organization [facility] Medical Group Address [address] [facility] [address] [place] [address] Care Team Providers Care Sander And Buffer Name Role Phone Dewayne Cedillo MD Primary Care Provider Reason for Visit * Reason Comments Diabetes Encounter Details Date Type Department Care Team (Late st Contact Info) Description 04/03/2017 11:15 AM GAMMA OPERATOR Office Visit [facility] of [address] [place] [address] Lorne Mcginnis MD [address] [place] [address] [address] [place] [address] Uncontrolled type 2 diabetes mellitus with hyperglycemia, with long-term current use of insulin ([facility]) (Primary Dx) Social History Tobacco Use Types Packs/Day Years Used Date Smoking Tobacco: Every Day Smokeless Tobacco: Never Comments Unknown Sex and Gender Information Value Date Recorded Sex Assigned at Not on file Legal Sex Female 8:53 AM GAMMA OPERATOR Gender Identity Female 12/26/2023 10:11 PM CDT Sexual Orientation Straight 12/26/2023 10 :11 PM CDT documented as of this encounter Last Filed Vital Signs Vital Sign Reading Time Taken Comments Blood Pressure 126/72 04/03/2017 11:16 AM GAMMA OPERATOR Pulse - - Temperature - - Respiratory Rate - - Oxygen Saturation - - Inhaled Oxygen Concentration - - Weight 97.5 kg (215 lb) 04/03/2017 11:16 AM GAMMA OPERATOR Height 165.1 cm (5' 5 ) 04/03/2017 11:16 AM GAMMA OPERATOR Body Mass Index 35.78 04/03/2017 11:16 AM GAMMA OPERATOR documented in this encounter Progress Notes * Lorne Mcginnis MD - 04/03/2017 11:15 AM CST Subjective/Objective Patient ID: Sandy Lopez is a 51 y.o. female. Chief Complaint Diabetes 51 years old female, referred for treatment of diabetes. She moved from [place]. She was diagnosed with diabetes at the [...] use of insulin ([facility]) (Primary) Diagnosed at the [...] low sugars. Ophthalmology exam on regular basis. A OPERATOR documented in this encounter Plan of Treatment Not on file documented as of this encounter Procedures Procedure Name Priority Date/Time Associated Diagnosis Comments DIABETES FOOT EXAM Routine 04/03/2017 URINE MICROALBUMNIN Routine 03/22/2017 LIPID PANEL Routine 03/22/2017 HEMOGLOBIN A1C Routine 03/22/2017 documented in this encounter Results * DIABETES FOOT EXAM (04/03/2017) Pathologist [facility] Diabetic Foot Exam Unknown Historical Provider HEALTH MAINTENANCE Final Result * URINE MICROALBUMNIN (03/22/2017) Pathologist [facility] SCRIBED Microalbumin 54.7 Historical Provider HEALTH MAINTENANCE Final Result * LIPID PANEL (03/22/2017) Pathologist [facility] Lipid Panel Unknown Comment:LDL 205 Historical Provider [...] 08/19/2019 added in this encounter Care Teams Sander And Buffer Relationship Specialty Start Date End Date Dewayne Cedillo MD [address] [facility] 1 [place] [address] PCP - General Internal Medicine 04/02/17 08/18/19 documented as of this encounter
--- OUTSIDE RECORDS SUMMARY | 2024-03-03 17:39 | XMS_ITS | Encounter Summary ---
Author Organization [facility] Medical Group Address [address] [facility] [address] [place] [address] Care Team Providers Care Ocean Lifeguard Name Role Phone Dewayne Cedillo MD Primary Care Provider Vilma Herrera Primary Care Provider [phone] Encounter Details Date Type Department Care Team (Late st Contact Info) Description 05/23/2017 Orders Only [facility] and Endocrine Care of [address] [place] [address] Lorne Mcginnis MD [address] [place] [address] 230 [place] [address] Social History Tobacco Use Types Packs/Day Years Used Date Smoking Tobacco: Every Day Smokeless Tobacco: Never Comments Unknown Sex and Gender Information Value Date Recorded Sex Assigned at Not on file Legal Sex Female 8:53 AM STUDENT FINANCIAL SERVICES COUNSELOR Gender Identity Female 12/26/2023 10:11 PM CDT [...] on filedocumented in this encounter Care Teams Ocean Lifeguard Relationship Specialty Start Date End Date Dewayen Cedillo MD [address] [place] [address] 1 [place] [address] PCP - General Internal Medicine 04/02/17 08/18/19 Vilma Herrera PA [address] [place] [address] PCP - General Physician Gas Line Installer 08/19/19 07/06/20 documented as of this encounter
--- OUTSIDE RECORDS SUMMARY | 2024-03-03 17:39 | XMS_ITS | Encounter Summary ---
Author Organization [facility] Care Team Providers Care Learning Program Manager Name Role Phone Dewayne Cedillo MD Primary Care Provider Encounter Details Date Type Department Care Team (Latest Contact Info) Description 05/24/2019 Travel Social History Tobacco Use Types Packs/Day Years Used Date Smoking Tobacco: Every Day Smokeless Tobacco: Never Comments Unknown Sex and Gender Information Value Date Recorded Sex Assigned at Not on file Legal Sex Female 8:53 AM WOVEN WOOD SHADE ASSEMBLER Gender Identity Female 12/26/2023 10:11 PM CDT [...] on filedocumented in this encounter Care Teams Learning Program Manager Relationship Specialty Start Date End Date Dewayne Cedillo MD [address] [place] [address] PCP - General Internal Medicine 04/02/17 08/18/19 documented as of this encounter
--- OUTSIDE RECORDS SUMMARY | 2024-03-03 17:47 | XMS_ITS | Clinical Summary ---
Author Organization [facility] Address [address] [place] [phone] Phone Care Team Providers Care Metallurgist Process Name Role Phone Vilma Herrera PA-C Primary Care Provider [phone] Allergies Active Allergy Reactions Criticality Noted Date [...] Description 05/11/2024 9:30 AM CDT Office Visit [facility] [address] [place] [id number] Leobardo Bhagat MD [address] [place] [id number] Health Maintenance Due Date Last Done Comments [...] to Health Maintenance Insurance (MHPIL) Care Teams Metallurgist Process Relationship Specialty Start Date End Date Vilma Herrera PA-C PCP - General Physician Consulting Services Manager 10/31/22
--- OUTSIDE RECORDS SUMMARY | 2024-03-03 17:47 | XMS_ITS | Encounter Summary ---
Author Organization [facility] Address [address] [facility] [facility] [address] [place] [address] Phone Care Team Providers Care Blankmaker Name Role Phone Unavailable Primary Care Provider Unavailabl e Encounter Details Date Type Department Care Team (Late Contact Info) Description 06/13/2020 Documentation Only [facility] [address] [facility] [address] [place] [address] Vilma Alfaro MA [address] [facility] [address] [place] [address] Social History Tobacco Use Types [...] Upcoming Encounters Date Type Department Care Team ([facility] Contact Info) Description 05/11/2024 9:30 AM CDT Office Visit [facility] [address] [facility] [facility] [address] [place] [address] Leobardo Bhagat MD [address] [facility] [address] [place] [address] documented as of this encounter Procedures Procedure Name Priority Date/Time Associated Diagnosis Comments URINALYSIS WITH MICROSCOPIC Routine 06/09/2020 SEDIMENTATION RATE, AUTOMATED Routine 06/09/2020 CBC AND DIFFERENTIAL Routine 06/09/2020 TSH W/REFLEX TO FT4 Routine 06/09/2020 PTH, INTACT Routine 06/09/2020 RENAL FUNCTION PANEL Routine 06/09/2020 documented in this encounter Results * Sedimentation Rate (06/09/2020) Pathologist [facility] Sedimentation Rate By Modified Torrey 22 1 - 30 Blood (Blood, Venous) 06/09/2020 Historical Provider MD LAB BLOOD ORDERABLES Patti l Result * (ABNORMAL) CBC and Differential (06/09/2020) [facility] WBC 8.5 3.8 - 9.9 K/uL Red [...] Result * Urinalysis with microscopic (06/09/2020) Pathologist [facility] Color, Urine Yellow Yellow Clarity, Urine Clear Clear Urine Specific Counce 1.023 1.010 - 1.025 pH Urine 6.0 Leukocyte Esterase UA Negative Negative Nitrite, Urine Negative Negative Protein, Urine 3+ Negative Glucose, Urine 3+ Negative Ketones, Urine Negative Negative Urobilinogen, Urine <2.0 <2.0 Bilirubin, Urine Negative Negative Blood, Urine Trace Negative WBC, Urine 6-10 0 - 5 RBC, Urine 0-2 0 - 2 Bacteria, Urine Trace Urine (Urine, Clean Catch) 06/09/2020 Result [facility] Provider MD LAB URINE ORDERABLES Patti l Result * PTH, Intact (06/09/2020) Pathologist [facility] Parathyroid Hormone, Intact 65 15 - 65 pg/mL Blood (Blood, Venous) 06/09/2020 Result [facility] LAB BLOOD ORDERABLES Patti l Result * TSH w/reflex to FT4 (06/09/2020) Pathologist [facility] TSH 1.56 0.30 - 4.20 Blood (Blood, Venous) 06/09/2020 Result [facility] LAB BLOOD ORDERABLES Patti l Result * Renal Function Panel (06/09/2020) Pathologist [facility] Glucose 113 70 - 199 mg/dL BUN [...] 4.0 3.5 - 5.0 g/dL eGFR Non-Afr [place]agu[place] 69 Blood (Blood, Venous) 06/09/2020 Result [facility] Provider MD LAB BLOOD ORDERABLES Patti l Result documented in this encounter Visit Diagnoses Not on filedocumented in this encounter
--- OUTSIDE RECORDS SUMMARY | 2024-03-03 17:47 | XMS_ITS | Encounter Summary ---
Author Organization [facility] Address [address] [place] [address] Phone Care Team Providers Care Metallurgical Engineering Teacher Name Role Phone Unavailable Primary Care Provider Unavailabl e Reason for Visit * Reason Comments Follow-up Encounter Details Date Type Department Care Team (Late st Contact Info) Description 11/07/2021 11:00 AM CDT Office Visit [facility] [address] [facility] [facility] [place] [address] Leobardo Bhagat MD [address] [facility] [place] [address] Stage 3a chronic kidney disease [...] in that instance be certain that your rotary dryer operator is contacted so that care can [...] Description 05/11/2024 9:30 AM CDT Office Visit [facility] [address] [facility] [place] [address] Leobardo Bhagat MD [address] [facility] [address] [facility] [place] [address] Scheduled Orders Name Type Priority Associated Diagnoses [...]
--- OUTSIDE RECORDS SUMMARY | 2024-03-03 17:47 | XMS_ITS | Encounter Summary ---
Author Organization [facility] Address [address] [facility] [address] [place] [address] Phone Care Team Providers Care Early Childhood Associate Name Role Phone Vilma Herrera PA-C Primary Care Provider [phone] Encounter Details Date Type Department Care Team (Late Contact Info) Description 05/01/2023 Documentation Only [facility] [address] [facility] [address] [place] [address] Leobardo Bhagat MD [address] [facility] [address] [place] [address] Social History Tobacco Use Types [...] Description 05/11/2024 9:30 AM CDT Office Visit [facility] [address] [facility] [address] [place] [address] Leobardo Bhagat MD [address] [facility] [address] [place] [address] documented as of this encounter Visit Diagnoses Not on filedocumented in this encounter Care Teams Early Childhood Associate Relationship Specialty Start Date End Date Vilma Herrera PA-C PCP - General Physician Tool Crib Lead 10/31/22 documented as of this encounter
--- OUTSIDE RECORDS SUMMARY | 2024-03-03 17:47 | XMS_ITS | Encounter Summary ---
Author Organization [facility] Address [address] [facility] [address] [place] [address] Phone Care Team Providers Care Vice President And Portfolio Manager Name Role Phone Unavailable Primary Care Provider Unavailabl e Encounter Details Date Type Department Care Team (Late Contact Info) Description 12/28/2020 Documentation Only [facility] [address] [facility] [address] [place] [address] Pam Alfaro MA [address] [facility] [address] [place] [address] Social History Tobacco Use Types [...] Description 05/11/2024 9:30 AM CDT Office Visit [facility] [address] [facility] [address] [place] [address] Leobardo Bhagat MD [address] [facility] [address] [place] [address] documented as of this encounter Visit Diagnoses Not on filedocumented in this encounter
--- OUTSIDE RECORDS SUMMARY | 2024-03-03 17:47 | XMS_ITS | Encounter Summary ---
Author Organization [facility] Address [address] [facility] [address] [place] [address] Phone Care Team Providers Care Triple Valve Tester Name Role Phone Vilma Herrera PA-C Primary Care Provider [phone] Encounter Details Date Type Department Care Team (Late st Contact Info) Description 05/07/2023 9:30 AM CDT Office Visit [facility] [address] [facility] [address] [place] [address] Leobardo Bhagat MD [address] [facility] [address] [place] [address] Chronic kidney disease, stage 2 [...] in that instance be certain that your golf cart assembler is contacted so that care can be [...] Description 05/11/2024 9:30 AM CDT Office Visit [facility] [address] [facility] [address] [place] [address] Leobardo Bhagat MD [address] [facility] [address] [place] [address] Scheduled Orders Name Type Priority Associated Diagnoses [...] (HCC) documented in this encounter Care Teams Triple Valve Tester Relationship Specialty Start Date End Date Vilma Herrera PA-C PCP - General Physician Repair Welder 10/31/22 documented as of this encounter
--- OUTSIDE RECORDS SUMMARY | 2024-03-03 17:47 | XMS_ITS | Encounter Summary ---
Author Organization [facility] Address [address] [facility] [address] [place] [address] Phone Care Team Providers Care Plaster Pattern Caster Name Role Phone Vilma Herrera PA-C Primary Care Provider Encounter Details Date Type Department Care Team (Late st Contact Info) Description 11/04/2022 3:15 PM CDT Office Visit [facility] [address] [facility] [address] [place] [address] Leobardo Bhagat MD [address] [facility] [address] [place] [address] Stage 1 chronic kidney disease [...] in that instance be certain that your hearing aid fitter is contacted so that care can be [...] Description 05/11/2024 9:30 AM CDT Office Visit [facility] [address] [facility] [address] [place] [address] Leobardo Bhagat MD [address] [facility] [address] [place] [address] Scheduled Orders Name Type Priority Associated Diagnoses [...] Hypertension documented in this encounter Care Teams Plaster Pattern Caster Relationship Specialty Start Date End Date Vilma Herrera PA-C PCP - General Physician Senior Ux Designer 10/31/22 documented as of this encounter
--- OUTSIDE RECORDS SUMMARY | 2024-03-03 17:47 | XMS_ITS | Encounter Summary ---
Author Organization [facility] Address [address] [facility] [address] [place] [address] Phone Care Team Providers Care Sulfonation Equipment Operator Name Role Phone Unavailable Primary Care Provider Unavailabl e Encounter Details Date Type Department Care Team (Late Contact Info) Description 12/28/2020 Documentation Only [facility] [address] [facility] [address] [place] [address] Pam Alfaro MA [address] [facility] [address] [place] [address] Social History Tobacco Use Types [...] Description 05/11/2024 9:30 AM CDT Office Visit [facility] [address] [facility] [address] [place] [address] Leobardo Bhagat MD [address] [facility] [address] [place] [address] documented as of this encounter Visit Diagnoses Not on filedocumented in this encounter
--- OUTSIDE RECORDS SUMMARY | 2024-03-03 17:47 | XMS_ITS | Encounter Summary ---
Author Organization [facility] Address [address] [facility] [facility] [address] [place] [address] Phone Care Team Providers Care Bed And Breakfast Innkeeper Name Role Phone Unavailable Primary Care Provider Unavailabl e Encounter Details Date Type Department Care Team (Late st Contact Info) Description 05/31/2020 Documentation Only [facility] [address] [facility] [address] [place] [address] Vilma Alfaro MA [address] [facility] [address] [place] [address] Social History Tobacco Use Types [...] Description 05/11/2024 9:30 AM CDT Office Visit [facility] [address] [facility] [address] [place] [address] Leobardo Bhagat MD [address] [facility] [address] [place] [address] Pending Results Name Type Priority [...] A1C 7.4 Blood (Blood, Venous) 11/19/2019 Result [facility] Provider LAB BLOOD ORDERABLES Patti l Result * Comprehensive Metabolic Panel (09/24/2019) Pathologist [facility] Glucose 181 mg/dL BUN 21 mg/dL Creatinine 1.14 mg/dL Sodium 138 mEq/L Potassium 4.9 mEq/L Chloride 101 Carbon Dioxide 25 mmol/L Calcium 9.5 mg/dL Albumin (Blood) 4.1 g/dL AST (SGOT) 40 U/L ALT (SGPT) 31 U/L Alkaline Phosphatase 69 U/L Total Bilirubin 0.2 MG/DL eGFR Non-Afr Malagasy 55 Blood (Blood, Venous) 09/24/2019 Result [facility] Provider LAB BLOOD ORDERABLES Patti l Result * Lipid panel (09/13/2019) Pathologist [facility] Cholesterol, Total 117 Triglycerides 239 HDL 22 mg/dL LDL-Calculated 47 Blood (Blood, Venous) 09/13/2019 Result [facility] Provider LAB BLOOD ORDERABLES Patti l Result * Hemoglobin A1c (09/13/2019) Hemoglobin A1C 7.7 Blood (Blood, Venous) 09/13/2019 Result [facility] Provider LAB BLOOD ORDERABLES Patti l Result documented in this encounter Visit Diagnoses Not on filedocumented in this encounter
--- OUTSIDE RECORDS SUMMARY | 2024-03-03 17:47 | XMS_ITS | Encounter Summary ---
Author Organization [facility] Address [address] [facility] [address] [place] [address] Phone Care Team Providers Care Director Of Physiotherapy Services Name Role Phone Unavailable Primary Care Provider Unavailabl e Reason for Referral * Imaging (Routine) - Closed Specialty Diagnoses / Procedures Referred By Contac t Referred To Contact Diagnoses Chronic kidney disease, stage 2 (mild) Type 2 diabetes mellitus with diabetic nephropathy (HCC) Hypertension Procedures Renal Ultrasound - Complete Leobardo Bhagat MD [address] [facility] [address] [place] [address] Phone: tel: fax: Referral ID Status Reason Start Date Expiration Date Visits Re quested Visits Authorized [id number] Closed 06/09/2020 12/06/2020 1 1 Reason for Visit * Reason Comments CKD New Patient Encounter Details Date Type Department Care Team (Late st Contact Info) Description 06/09/2020 10:30 AM CDT Office Visit [facility] [address] [facility] [address] [place] [address] Leobardo Bhagat MD [address] [facility] [address] [place] [address] Chronic kidney disease, stage 2 [...] in that instance be certain that your manager hardware is contacted so that care can be [...] Description 05/11/2024 9:30 AM CDT Office Visit [facility] [address] [facility] [address] [place] [address] Leobardo Bhagat MD [address] [facility] [address] [place] [address] Scheduled Orders Name Type Priority [...] mL/min PRINT/EXTERNAL (NON-INTERFACE D LABS) eGFR Non-Afr Citizen Of [place] 82 PRINT/EXTERNAL (NON-INTERFACE D LABS) Urine (Urine, Clean Catch) 12/23/2020 us Leobardo Bhagat MD LAB URINE ORDERABLES Final Res ult PRINT/EXTERNAL (NON-INTERFACED LABS) documented in this encounter Visit Diagnoses Diagnosis Chronic kidney disease, stage 2 (mild)- Primary Type 2 diabetes mellitus with diabetic nephropathy (HCC) Hypertension documented in this encounter
--- OUTSIDE RECORDS SUMMARY | 2024-03-03 17:47 | XMS_ITS | Encounter Summary ---
Author Organization [facility] Address [address] [place] [address] Phone Care Team Providers Care Baby Attendant Name Role Phone Unavailable Primary Care Provider Unavailabl e Reason for Visit * Reason Comments Follow-up Encounter Details Date Type Department Care Team (Late st Contact Info) Description 01/02/2021 10:45 AM HOME RESTORATION SERVICE CLEANER Office Visit [facility] [address] [facility] [address] [place] [address] Leobardo Bhagat MD [address] [facility] [address] [place] [address] Type 2 diabetes mellitus with [...] Comments Blood Pressure 112/71 01/02/2021 10:52 AM HOME RESTORATION SERVICE CLEANER Pulse 83 01/02/2021 10:52 AM HOME RESTORATION SERVICE CLEANER Temperature 36.1 ??C (96.9 ??F) 01/02/2021 10:[address] Respiratory Rate - - Oxygen Saturation 96% 01/02/2021 10:52 AM HOME RESTORATION SERVICE CLEANER Inhaled Oxygen Concentration - - Weight 98.4 kg (217 lb) 01/02/2021 10:52 AM HOME RESTORATION SERVICE CLEANER Height 165.1 cm (5' 5 ) 01/02/2021 10:52 AM HOME RESTORATION SERVICE CLEANER Body Mass Index 36.11 01/02/2021 10:52 AM HOME RESTORATION SERVICE CLEANER documented in this encounter Patient Instructions * Patient Instructions* Leobardo Bhagat MD - 01/02/2021 10:45 AM HOME RESTORATION SERVICE CLEANER No NSAIDS - Do not take non-steroidal [...] in that instance be certain that your nutrition internship is contacted so that care can be [...] Negative Negative Protein Urine Negative 3+ Specific [place] Urine 1.010 - 1.025 1.023 pH Urine [...] Description 05/11/2024 9:30 AM CDT Office Visit [facility] [address] [facility] [facility] [address] [place] [address] Leobardo Bhagat MD [address] [facility] [address] [place] [address] documented as of this encounter Procedures Procedure [...] LABS) * CBC and Differential (09/19/2021) Pathologist [facility] WBC 9.4 3.8 - 9.9 K/uL PRINT/EXTERNAL [...]
--- OUTSIDE RECORDS SUMMARY | 2024-03-03 17:47 | XMS_ITS | Encounter Summary ---
Author Organization [facility] Address [address] [facility] [address] [place] [address] Phone Care Team Providers Care Lead Cook Name Role Phone Unavailable Primary Care Provider Unavailabl e Encounter Details Date Type Department Care Team ([facility] Contact Info) Description 12/28/2020 Documentation Only [facility] [address] [facility] [address] [place] [address] Pam Alfaro MA [address] [facility] [address] [place] [address] Social History Tobacco Use Types [...] Upcoming Encounters Date Type Department Care Team ([facility] Contact Info) Description 05/11/2024 9:30 AM CDT Office Visit [facility] [address] [facility] [address] [place] [address] Leobardo Bhagat MD [address] [facility] [address] [place] [address] documented as of this encounter [...]
--- OUTSIDE RECORDS SUMMARY | 2024-03-03 17:47 | XMS_ITS | Encounter Summary ---
Author Organization [facility] Address [address] [place] [address] Care Team Providers Care Social Science Instructor Name Role Phone Unavailable Primary Care Provider [...] Description 05/11/2024 9:30 AM CDT Office Visit [facility] [address] [facility] [address] [place] [address] Leobardo Bhagat MD [address] [facility] [address] [place] [address] documented as of this encounter Visit Diagnoses Not on filedocumented in this encounter
--- OUTSIDE RECORDS SUMMARY | 2024-03-03 17:47 | XMS_ITS | Encounter Summary ---
Author Organization [facility] Address [address] [facility] [address] [place] [address] Phone Care Team Providers Care Food And Beverage Server Name Role Phone Unavailable Primary Care Provider Unavailabl e Encounter Details Date Type Department Care Team (Late Contact Info) Description 12/26/2020 Documentation Only [facility] [address] [facility] [address] [place] [address] Ciara Sanders [address] [facility] [address] [place] [address] Social History Tobacco Use Types [...] Description 05/11/2024 9:30 AM CDT Office Visit [facility] [address] [facility] [address] [place] [address] Leobardo Bhagat MD [address] [facility] [address] [place] [address] documented as of this encounter Visit Diagnoses Not on filedocumented in this encounter
== END 2024-02-25 21:30 | disposition home or self-care (01) ==
PROVIDERS: Student in an Organized Health Care Education/Training Program; Emergency Provider Emergency Medicine
DX: R07.89 Other chest pain (principal); M54.9 Dorsalgia, unspecified; I10 Essential (primary) hypertension; E11.51 Type 2 diabetes mellitus with diabetic peripheral angiopathy without gangrene; I73.9 Peripheral vascular disease, unspecified; E78.5 Hyperlipidemia, unspecified; E66.9 Obesity, unspecified; Z68.33 Body mass index [BMI] 33.0-33.9, adult; K21.9 Gastro-esophageal reflux disease without esophagitis; Z96.41 Presence of insulin pump (external) (internal); Z87.891 Personal history of nicotine dependence; Z79.82 Long term (current) use of aspirin; Z79.02 Long term (current) use of antithrombotics/antiplatelets; Z79.899 Other long term (current) drug therapy; Z79.85 Long-term (current) use of injectable non-insulin antidiabetic drugs; Z79.84 Long term (current) use of oral hypoglycemic drugs; Z79.4 Long term (current) use of insulin; R94.31 Abnormal electrocardiogram [ECG] [EKG]
CPT/HCPCS: 36415; 71046; 80053; 83690; 84484; 85025; 85610; 85730; 93005; 99284; A9270

== ENCOUNTER 2024-03-04 07:32 | Day surgery (SDC) | payer OTHER, SELFPAY ==
[2024-02-17 09:06] VITALS: BMI 33.3
--- NOTE | 2024-03-03 11:32 | WPDANESEPPF ---
Anes - Initial Pre Proc Eval Procedure: Operation Date: 03/04/24 10:00 Proposed Procedures p A-Jose Release Right Index Finger - Asif Oglesby MD Date/Time: 03/03/24 11:32 Surgeon: Asif Oglesby MD Pre Op Diagnosis: Right Index Trigger Finger Patient Data Age: 58 Gender: F Height: 1.65 m Weight: 91 kg Allergies Allergy/AdvReac Type Severity Reaction Status Date / Time NSAIDS (Non-Steroidal AdvReac Severe AFFECTS Verified 03/04/24 08:41 Anti-Inflamma KIDNEYS codeine AdvReac Mild Vomiting Verified 03/04/24 08:41 Home Medications ?Medication ?Instructions ?Recorded ?Confirmed ?Type aspirin 81 mg tablet,delayed 80 mg PO DAILY 10/11/21 03/04/24 History release atorvastatin 80 mg tablet 80 mg PO HS 10/11/21 03/04/24 History citalopram 20 mg tablet 20 mg PO DAILY 10/11/21 03/04/24 History clopidogrel 75 mg tablet 75 mg PO DAILY 10/11/21 03/04/24 History estradiol 0.5 mg tablet 0.5 mg PO DAILY 10/11/21 03/04/24 History ezetimibe 10 mg tablet 10 mg PO DAILY 10/11/21 03/04/24 History famotidine 20 mg tablet 20 mg PO BID 10/11/21 03/04/24 History fexofenadine 180 mg tablet 180 mg PO DAILY 10/11/21 03/04/24 History (Ariadna Allergy) losartan 100 mg tablet 100 mg PO DAILY 10/11/21 03/04/24 History metformin 1,000 mg tablet 1,000 mg PO BID 10/11/21 03/04/24 History multivitamin with minerals 100 tablet PO DAILY 10/11/21 03/04/24 History propranolol 20 mg tablet 20 mg PO Q12H 10/11/21 03/04/24 History zolpidem 10 mg tablet 10 mg PO HS PRN Sleep 10/11/21 03/04/24 History insulin aspart U-100 100 unit/mL See Rx Instructions .Route .COMPLEX 11/05/21 03/04/24 History subcutaneous solution (Novolog U-100 Insulin aspart) buspirone 7.5 mg tablet 7.5 mg PO BID 02/17/24 03/04/24 History empagliflozin 25 mg tablet 25 mg PO DAILY 02/17/24 03/04/24 History (Jardiance) insulin lispro 100 unit/mL subcut QPM 02/17/24 History subcutaneous solution (Humalog U-100 Insulin) tramadol 50 mg tablet 50 mg PO Q6H PRN pain #12 tabs 03/04/24 Rx Patient hx anesthesia problems: none Family hx anesthesia problems: none Results Review: All pre-operative results and documents have been reviewed as part of the pre-operative evaluation. [facility] Past Medical History Medical History (Updated 02/26/24 @ 00:00 by Chary García) Insulin pump in place Diabetes type 2, controlled GERD (gastroesophageal reflux disease) PVD (peripheral vascular disease) Hypertension Hyperlipidemia Surgical History Surgical History History of tubal ligation Social History Social History Smoking packs per day: 1 Smoking cigarettes per day: 20.0 Years smoked: 35 Smoking pack-years: 35.00 Smoking status: Former smoker Tobacco type: e-cigarettes/vaping Second hand tobacco smoke exposure: Yes Smoking end date: 07/27/21 Additional smoking assessment comments: 1 ppd cigarettes 40 years Alcohol intake: never Substance use: never Substance use type: does not use Living arrangements: with family Spiritual care concerns: No Anes - Eval Final PreProcedure Day of Procedure 03/03/24 11:32 Patient weight: obese Heart: regular rate and rhythm Lungs: clear to auscultation Airway: Mallampati scale class III Neurological: alert and oriented Last oral intake: >/= 8 hours ASA classification: III Emergent: no Anesthetic plan: proceed Anesthesia type and monitoring: general GIVS and standard monitoring Results Review: All pre-operative results and documents have been reviewed as part of the pre-operative evaluation. Informed Consent: The patient's anesthetic plan and its attendant risks and benefits were discussed with the patient/family/POA. Questions were solicited and answers provided to the satisfaction of the patient/family/POA.
--- NOTE | 2024-03-04 06:51 | P.OP_ITS ---
Procedure Note - Detailed Date of Procedure 03/04/24 Pre-op Diagnosis Right Index Trigger Finger Post-op Diagnosis Same Procedure Performed right index finger a1 christina release Surgeon Asif Oglesby MD Systems Integration Analyst miesha cole pa-c Anesthesia MAC Description of Procedure INFORMED CONSENT: The patient was seen and examined and marked in the pre-op area.? The patient signed the consent form. PROCEDURE IN DETAIL:The patient taken back to OR on the stretcher in supine position. Time out performed with anesthesia, surgeon and staff agreeing on patient's name site and surgery to be performed SCDs were placed on the lower extremities and inflated. A tourniquet was placed on {right} upper extremity and antibiotics given IV After anesthesia administered sedation I injected {3}cc 1%lido and 0.5% marcaine plain at the operative site The?{right upper extremity}?was prepped and draped in sterile fashion the??{right upper extremity} was? exsanguinated with Esmarch bandage and tourniquet inflated to 250mmHg I made a longitudinal incision over the right index finger A1 christina through skin and dermis with a 15 blade scalpel. Littler scissors were used to spread down to the A1 christina. The A1 christina was identified and initially incised with a 15 blade scalpel. Littler scissors were used to spread above it and below it proximally and distally and completed the transection entirely. Ragnell retractor was used withdrawal the FDS and FDP tendons for inspection. The tendons were free of masses and synovitis and gliding smoothly in the sheath with triggering or crepitus. I irrigated with normal saline and closed with 4-0 chromic. A dressing of xeroform, 4x4, maryanne, and an saranya bandage was applied after the tourniquet was let down noting the hand was warm and well perfused. The patient was then awaken from anesthesia and transferred to the recovery room in stable condition.? Complications - none EBL- 0cc Disposition - home in stable conditions Miesha Cole PA-C was essential for positioning, retraction, closure and dressing placement [facility] Billing Surgery - Charge Forward: Surgery Billing ([id number] for Miesha)
--- NOTE | 2024-03-04 06:51 | PM.HPGS ---
History of Present Illness History of Present Illness Chief complaint: Right Index Trigger Finger Narrative: Patient seen and examined in pre-operative holding area. No interval change in medical history or symptoms. Patient recalls previous discussion of benefits and alternatives to procedure. Continues to desire to proceed with right index finger a1 christina release. Reviewed procedure, post-op expectations and risks including but not limited to bleeding, infection, injury to tendon/nerve/vessel, decreased hand function, stiffness, RSD, no change or worsening of symptoms. I discussed the possible use of assistants and their participation in the case. Patient stated understanding and signed the consent form wishing to proceed. Review of Systems Review of Systems: All systems reviewed & are unremarkable except as noted in HPI and below PMFSH Past Medical History Medical History (Updated 02/26/24 @ 00:00 by Chary García) Insulin pump in place Diabetes type 2, controlled GERD (gastroesophageal reflux disease) PVD (peripheral vascular disease) Hypertension Hyperlipidemia Surgical History Surgical History History of tubal ligation Social History Social History Smoking packs per day: 1 Smoking cigarettes per day: 20.0 Years smoked: 35 Smoking pack-years: 35.00 Smoking status: Former smoker Tobacco type: e-cigarettes/vaping Second hand tobacco smoke exposure: Yes Smoking end date: 07/27/21 Additional smoking assessment comments: 1 ppd cigarettes 40 years Alcohol intake: never Substance use: never Substance use type: does not use Living arrangements: with family Spiritual care concerns: No Meds Home Medications and Allergies Home Medications ?Medication ?Instructions ?Recorded ?Confirmed ?Type aspirin 81 mg tablet,delayed 80 mg PO DAILY 10/11/21 03/04/24 History release atorvastatin 80 mg tablet 80 mg PO HS 10/11/21 03/04/24 History citalopram 20 mg tablet 20 mg PO DAILY 10/11/21 03/04/24 History clopidogrel 75 mg tablet 75 mg PO DAILY 10/11/21 03/04/24 History estradiol 0.5 mg tablet 0.5 mg PO DAILY 10/11/21 03/04/24 History ezetimibe 10 mg tablet 10 mg PO DAILY 10/11/21 03/04/24 History famotidine 20 mg tablet 20 mg PO BID 10/11/21 03/04/24 History fexofenadine 180 mg tablet 180 mg PO DAILY 10/11/21 03/04/24 History (Ariadna Allergy) losartan 100 mg tablet 100 mg PO DAILY 10/11/21 03/04/24 History metformin 1,000 mg tablet 1,000 mg PO BID 10/11/21 03/04/24 History multivitamin with minerals 100 tablet PO DAILY 10/11/21 03/04/24 History propranolol 20 mg tablet 20 mg PO Q12H 10/11/21 03/04/24 History zolpidem 10 mg tablet 10 mg PO HS PRN Sleep 10/11/21 03/04/24 History insulin aspart U-100 100 unit/mL See Rx Instructions .Route .COMPLEX 11/05/21 03/04/24 History subcutaneous solution (Novolog U-100 Insulin aspart) buspirone 7.5 mg tablet 7.5 mg PO BID 02/17/24 03/04/24 History empagliflozin 25 mg tablet 25 mg PO DAILY 02/17/24 03/04/24 History (Jardiance) insulin lispro 100 unit/mL subcut QPM 02/17/24 History subcutaneous solution (Humalog U-100 Insulin) tramadol 50 mg tablet 50 mg PO Q6H PRN pain #12 tabs 03/04/24 Rx Allergies Allergy/AdvReac Type Severity Reaction Status Date / Time NSAIDS (Non-Steroidal AdvReac Severe AFFECTS Verified 03/04/24 08:41 Anti-Inflamma KIDNEYS codeine AdvReac Mild Vomiting Verified 03/04/24 08:41 Exam Narrative: unchanged
[2024-03-04 08:50] VITALS: BP 121/95; PULSE 77; RESP 18; TEMP 37.1; O2SAT 99; BMI 33.0
[2024-03-04] MEDS: LACTATED RINGERS 1,000 ML 30 ML IV CONT (09:14)
[2024-03-04 09:15] LABS: Glucose Point of Care 143 mg/dl (65-105)
[2024-03-04] MEDS: ceFAZolin SODIUM 2 GM/20 ML SW SYRINGE IV PUSH (09:17)
[2024-03-04 09:35] VITALS: BP 120/64; PULSE 73; RESP 14; O2SAT 100
[2024-03-04] MEDS: LIDOCAINE 1% LOCAL INJ 10 ML VIAL 2 ML INFILTRATE (09:40)
[2024-03-04] MEDS: BUPivacaine HCL 0.5% PF 30 ML VIAL INFILTRATE (09:41)
[2024-03-04 09:55] VITALS: BP 118/67; PULSE 70; RESP 16; O2SAT 97
--- NOTE | 2024-03-04 10:13 | WPDANESPN ---
Anes - Prog Note Post-Op Date/Time: 03/04/24 10:13 Cardiovascular status: normal Respiratory status: normal Airway patency: baseline Mental status: baseline Post-Op hydration status: normal Vital Signs: Last Vital Signs Temp 37.1 C 03/04/24 08:50 Pulse 70 03/04/24 09:55 Resp 16 03/04/24 09:55 BP 118/67 03/04/24 09:55 Pulse Ox 97 03/04/24 09:55 O2 Del Method Room Air 03/04/24 09:55 Pain Score (VAS): 0 I/O: Intake & Output 03/03/24 03/04/24 03/04/24 23:59 07:59 15:59 Intake Total 0 Balance 0 03/04/24 09:12 POC Capillary Glucose 143 H Post-procedural complaints: none Patient Feedback: Patient satisfied with anesthetic care. Other Findings: Patient vital signs back to baseline. Patient denies nausea and vomiting. Patient's pain under control. Patient OK for discharge.
[2024-03-04 10:20] VITALS: BP 118/67; PULSE 74; RESP 16; O2SAT 98
--- NOTE | 2024-03-04 10:27 | SUR.PHASEII ---
PT AWAKE AND ALERT. DENIES PAIN. STATES NUMBNESS TO RT HAND. ELEVATED.
== END 2024-03-04 10:30 ==
LOC: ASC 08:33
PROVIDERS: PCP Nurse Practitioner; Visit Provider Plastic Surgery
PROC: (CPT 26055; principal; 2024-03-04 10:00)
DX: M65.321 Trigger finger, right index finger (principal)
CPT/HCPCS: 26055